=== PATIENT | female | born 1990 | race American Indian/Alaskan Native ===

== ENCOUNTER 2018-11-14 21:20 | Emergency (ER) | payer MEDICAID | END 2018-11-15 00:33 | disposition left against medical advice (07) | LOC: ED 21:20 ==

== ENCOUNTER 2019-07-22 17:24 | Emergency (ER) | payer MEDICARE | END 2019-07-22 17:45 | disposition left against medical advice (07) | LOC: ED 17:24 | DX: M79.604 Pain in right leg (principal); Z53.21 Procedure and treatment not carried out due to patient leaving prior to being seen by health care provider ==

== ENCOUNTER 2019-07-26 03:59 | Inpatient (IN) | payer MEDICARE ==
[2019-07-26] MEDS ORDERED: NACL 0.9% 1000 ML 1,000 ML IV ONE (05:12)
[2019-07-26] MEDS ORDERED: MORPHINE IV ONE ×2 (05:12→13:52)
[2019-07-26] MEDS ORDERED: TYLENOL PO ONE (05:14)
--- NOTE | 2019-07-26 05:14 | Event Note ---
Date: 07/26/19 Medical screening note: 29-year-old female, not known to this provider previously, reports history of lupus, reports that she typically follows at [facility], complaining of burning bilateral foot pain, chronic rash, difficulty weightbearing secondary to chronic pain. Low-grade temperature and tachycardic. Placed on monitor, pain medicine ordered, laboratory studies ordered. Vital Signs 07/26/19 07/26/19 07/26/19 04:00 04:13 04:15 Temperature 99.8 F H Pulse Rate 118 H 117 H Respiratory 20 30 H 27 H Rate Blood Pressure 127/79 123/80 O2 Sat by Pulse 99 99 Oximetry 07/26/19 04:30 Temperature Pulse Rate 117 H Respiratory 24 Rate Blood Pressure 121/85 O2 Sat by Pulse 99 Oximetry
[2019-07-26 05:38] LABS: Hematocrit 23.2 % (30.3-42.9); Hemoglobin 6.9 gm/dl (10.1-14.3); Mean Corpuscular HGB Conc 30 % (30-34); Mean Corpuscular Volume 72 fl (79-97); Red Blood Count 3.24 M/mm3 (3.65-5.03)
[2019-07-26 05:39] LABS: Red Cell Distribution Width 36.5 % (13.2-15.2)
[2019-07-26 05:47] LABS: INR 1.38 (0.87-1.13)
[2019-07-26 05:48] LABS: Partial Thromboplastin Time 39.7 Sec. (24.2-36.6)
[2019-07-26 05:58] LABS: Albumin 3.3 g/dL (3.9-5); BUN/Creatinine Ratio 4; Blood Urea Nitrogen 71 mg/dL (7-17); Calcium 8.6 mg/dL (8.4-10.2); Hemolysis Index 7
[2019-07-26 06:11] LABS: Erythrocyte Sedimentation Rate 78 mm/Hr (0-20)
[2019-07-26] MEDS ORDERED: MERREM/NS 1 GRAM/100 ML 1 GRAM/100 ML BAG IV ONE (06:40)
[2019-07-26] MEDS ORDERED: D50W (25GM) Syringe IV ONE ×3 (06:41→09:54)
[2019-07-26 06:42] LABS: Basophils % (Manual) 0 % (0.0-1.8); Eosinophils % (Manual) 0 % (0.0-4.3); Total Cells Counted 100
[2019-07-26] MEDS ORDERED: HumuLIN R IV ONE (06:42)
[2019-07-26 06:43] LABS: Anisocytosis 3+
[2019-07-26 06:44] LABS: Hypochromasia 3+; Ovalocytes 1+; Platelet Estimate Consistent w Auto; Poikilocytosis 2+; Tear Drop Cells Few
[2019-07-26 06:45] LABS: Platelet Count 237 K/mm3 (140-440)
[2019-07-26] MEDS ORDERED: VANCOMYCIN PHARMACY TO DOSE IV SCH (07:00)
[2019-07-26 07:05] LABS: Alanine Aminotransferase < 5 units/L (7-56)
--- NOTE | 2019-07-26 07:12 | XRay Report ---
CHEST 1 VIEW 07/26/2019 6:54 AM INDICATION / CLINICAL INFORMATION: hypertension. COMPARISON: None available. FINDINGS: SUPPORT DEVICES: None. HEART / MEDIASTINUM: Mild cardiomegaly. LUNGS / PLEURA: No significant pulmonary or pleural abnormality. No pneumothorax. ADDITIONAL FINDINGS: No significant additional findings. IMPRESSION: 1. Mild cardiomegaly without acute pulmonary abnormality. Signer Name: Gurmeet Cook MD Signed: 07/26/2019 7:08 AM Workstation Name: [id number]
[2019-07-26] MEDS ORDERED: VANCOMYCIN 2,000 MG in NACL 0.9% 500 ML 500 ML IV ONE (07:15)
[2019-07-26] MEDS ORDERED: D50W (25GM) Vial IV ONE (07:24)
[2019-07-26 07:30] LABS: INR 1.39 (0.87-1.13)
--- NOTE | 2019-07-26 07:30 | Emergency Department Report ---
ED General Adult HPI - General Chief complaint: Extremity Problem,Nontraumatic Stated complaint: FEET BURNING Time Seen by Provider: 07/26/19 06:22 Source: patient Mode of arrival: Stretcher Limitations: No Limitations - History of Present Illness Initial comments: 49-year-old female end-stage renal disease on dialysis with history of lupus. Patient states that she was recently transferred to a new guide foreign tour to be dialyzed at [facility] here in [place] although she had been previously receiving care at [place]. Patient's chief complaint is burning legs. He was initially screened by my predecessor physician. On my encounter and review of her lab oratory database she has tachycardia and a substantial white count. He tells me that she "tried to get some antibiotics from her physician at [place] for a bump in her "private area". She does not understand the meaning of MRSA. She does not report to me any history of life-threatening infections. She is a very poor historian however. She also admits to noncompliance with her dialysis, last ronni lysis was (today is Thursday). He states he felt ill for a week. She thinks someone here told her she had a fever and may have had some chills. Severity scale (0 -10): 6 - Related Data Home Medications Medication Instructions Recorded Confirmed Last Taken Gabapentin 300 mg PO 3XW 11/14/18 11/14/18 Unknown Mirtazapine 7.5 mg PO 3XW 11/14/18 11/14/18 Unknown Allergies Allergy/AdvReac Type Severity Reaction Status Date / Time No Known Allergies Allergy Verified 07/21/19 07:06 ED Review of Systems ROS: Stated complaint: FEET BURNING Other details as noted in HPI Constitutional: chills (patient is really unclear and a poor historian), fever Eyes: denies: eye pain, eye discharge, vision change ENT: denies: ear pain, throat pain Respiratory: denies: cough, shortness of breath, wheezing Cardiovascular: denies: chest pain, palpitations Endocrine: no symptoms reported Gastrointestinal: denies: abdominal pain, nausea, diarrhea Genitourinary: as per HPI Musculoskeletal: as per HPI (chronic leg pain). denies: back pain, joint swelling, arthralgia Skin: denies: rash, lesions Neurological: denies: headache, weakness, paresthesias Psychiatric: denies: anxiety, depression Hematological/Lymphatic: denies: easy bleeding, easy bruising ED Past Medical Hx - Past Medical History Previous Medical History?: Yes Hx Hypertension: Yes Hx Renal Disease: Yes (Dialysis Thu-Thu-Thu, told me Thursday) Additional medical history: Lupus - Surgical History Additional Surgical History: Fractured left leg, AV fistula left arm - Social History Smoking Status: Never Smoker Substance Use Type: Marijuana - Medications Home Medications: Home Medications Medication Instructions Recorded Confirmed Last Taken Type Gabapentin 300 mg PO 3XW 11/14/18 11/14/18 Unknown History Mirtazapine 7.5 mg PO 3XW 11/14/18 11/14/18 Unknown History ED Physical Exam - General Limitations: No Limitations General appearance: alert, in no apparent distress - Head Head exam: Present: atraumatic, normocephalic - Eye Eye exam: Present: normal appearance. Absent: scleral icterus - ENT ENT exam: Present: mucous membranes moist - Neck Neck exam: Present: normal inspection - Respiratory Respiratory exam: Present: normal lung sounds bilaterally. Absent: respiratory distress - Cardiovascular Cardiovascular Exam: Present: regular rate, normal rhythm. Absent: systolic murmur, diastolic murmur, rubs, gallop - GI/Abdominal GI/Abdominal exam: Present: soft, normal bowel sounds. Absent: distended, tenderness, guarding, rebound, rigid - Extremities Exam Extremities exam: Present: normal inspection - Back Exam Back exam: Present: normal inspection - Neurological Exam Neurological exam: Present: alert, oriented X3, CN II-XII intact. Absent: reflexes normal - Psychiatric Psychiatric exam: Present: normal affect, normal mood - Skin Skin exam: Present: warm, dry, intact, normal color, other (there is a lesion which looks consistent with MRSA on the mons pubis area) ED Course Vital Signs 07/26/19 07/26/19 07/26/19 04:00 04:13 04:15 Temperature 99.8 F H Pulse Rate 118 H 117 H Respiratory 20 30 H 27 H Rate Blood Pressure 127/79 123/80 Blood Pressure [Right] O2 Sat by Pulse 99 99 Oximetry 07/26/19 07/26/19 04:30 07:42 Temperature 99 F Pulse Rate 117 H 106 H Respiratory 24 14 Rate Blood Pressure 121/85 Blood Pressure 128/64 [Right] O2 Sat by Pulse 99 98 Oximetry - Reevaluation(s) Reevaluation #1: Patient was treated empirically for bacteremia. She has a significantly elevated white blood cell count and tachycardia. She needs dialysis. She has significant cardiomegaly and cephalization of flow. Thereby she will not be given a fluid bolus at this time. Fluid management per hospitalist staff and guide foreign tour. Nephrology has been consulted. Dialysis is pending. 07/26/19 07:48 Reevaluation #2: Patient given a hyperkalemia cocktail. I believe dialysis will be somewhat delayed due to the hour of day. 07/26/19 07:51 ED Medical Decision Making - Lab Data Result diagrams: 07/26/19 05:25 07/26/19 05:25 Laboratory Results - last 24 hr 07/26/19 07/26/19 07/26/19 05:25 05:25 05:25 WBC 28.2 H RBC 3.24 L Hgb 6.9 L Hct 23.2 L MCV 72 L MCH 21 L MCHC 30 RDW 36.5 H Plt Count 237 Add Manual Diff Complete Total Counted 100 Seg Neuts % (Manual) 80.0 H Band Neutrophils % 0 Lymphocytes % (Manual) 15.0 Reactive Lymphs % (Man) 0 Monocytes % (Manual) 5.0 Eosinophils % (Manual) 0 Basophils % (Manual) 0 Metamyelocytes % 0 Myelocytes % 0 Promyelocytes % 0 Blast Cells % 0 Nucleated RBC % Not Reportable Seg Neutrophils # Man 22.6 H Band Neutrophils # 0.0 Lymphocytes # (Manual) 4.2 Abs React Lymphs (Man) 0.0 Monocytes # (Manual) 1.4 H Eosinophils # (Manual) 0.0 Basophils # (Manual) 0.0 Metamyelocytes # 0.0 Myelocytes # 0.0 Promyelocytes # 0.0 Blast Cells # 0.0 WBC Morphology Not Reportable Hypersegmented Neuts Not Reportable Hyposegmented Neuts Not Reportable Hypogranular Neuts Not Reportable Smudge Cells Not Reportable Toxic Granulation Not Reportable Toxic Vacuolation Not Reportable Dohle Bodies Not Reportable Pelger-Huet Anomaly Not Reportable Rose Rods Not Reportable Platelet Estimate Consistent w auto Clumped Platelets Not Reportable Plt Clumps, EDTA Not Reportable Large Platelets Not Reportable Giant Platelets Not Reportable Platelet Satelliting Not Reportable Plt Morphology Comment Not Reportable RBC Morphology Not Reportable Dimorphic RBCs Not Reportable Polychromasia Not Reportable Hypochromasia 3+ Poikilocytosis 2+ Anisocytosis 3+ Microcytosis Not Reportable Macrocytosis Not Reportable Spherocytes Not Reportable Pappenheimer Bodies Not Reportable Sickle Cells Not Reportable Target Cells Not Reportable Tear Drop Cells Few Ovalocytes 1+ Helmet Cells Not Reportable Benavidez-[place] Bodies Not Reportable [place] Rings Not Reportable Bk Cells Not Reportable Bite Cells Not Reportable Crenated Cell Not Reportable Elliptocytes Few Acanthocytes (Spur) Not Reportable Rouleaux Not Reportable Hemoglobin C Crystals Not Reportable Schistocytes Not Reportable Malaria parasites Not Reportable ESR 78 Dinesh Bodies Not Reportable Hem Pathologist Commnt No PT 16.6 H INR 1.38 H APTT 39.7 H Sodium 135 L Potassium 6.2 H* Chloride 95.7 L Carbon Dioxide 18 L Anion Gap 28 BUN 71 H Creatinine 16.8 H Estimated GFR 3 BUN/Creatinine Ratio 4 Glucose 79 POC Glucose Calcium 8.6 Total Bilirubin 0.30 AST 6 ALT < 5 L Alkaline Phosphatase 76 Total Creatine Kinase 43 Total Protein 6.8 Albumin 3.3 L Albumin/Globulin Ratio 0.9 HCG, Qual HCG, Quant 07/26/19 07/26/19 07/26/19 05:25 06:31 06:33 WBC RBC Hgb Hct MCV MCH MCHC RDW Plt Count Add Manual Diff Total Counted Seg Neuts % (Manual) Band Neutrophils % Lymphocytes % (Manual) Reactive Lymphs % (Man) Monocytes % (Manual) Eosinophils % (Manual) Basophils % (Manual) Metamyelocytes % Myelocytes % Promyelocytes % Blast Cells % Nucleated RBC % Seg Neutrophils # Man Band Neutrophils # Lymphocytes # (Manual) Abs React Lymphs (Man) Monocytes # (Manual) Eosinophils # (Manual) Basophils # (Manual) Metamyelocytes # Myelocytes # Promyelocytes # Blast Cells # WBC Morphology Hypersegmented Neuts Hyposegmented Neuts Hypogranular Neuts Smudge Cells Toxic Granulation Toxic Vacuolation Dohle Bodies Pelger-Huet Anomaly Rose Rods Platelet Estimate Clumped Platelets Plt Clumps, EDTA Large Platelets Giant Platelets Platelet Satelliting Plt Morphology Comment RBC Morphology Dimorphic RBCs Polychromasia Hypochromasia Poikilocytosis Anisocytosis Microcytosis Macrocytosis Spherocytes Pappenheimer Bodies Sickle Cells Target Cells Tear Drop Cells Ovalocytes Helmet Cells Benavidez-[place] Bodies [place] Rings [place] Cells Bite Cells Crenated Cell Elliptocytes Acanthocytes (Spur) Rouleaux Hemoglobin C Crystals Schistocytes Malaria parasites ESR Dinesh Bodies Hem Pathologist Commnt PT 16.7 H INR 1.39 H APTT 41.1 H Sodium Potassium Chloride Carbon Dioxide Anion Gap BUN Creatinine Estimated GFR BUN/Creatinine Ratio Glucose POC Glucose Calcium Total Bilirubin AST ALT Alkaline Phosphatase Total Creatine Kinase Total Protein Albumin Albumin/Globulin Ratio HCG, Qual Negative HCG, Quant < 2 07/26/19 07:25 WBC RBC Hgb Hct MCV MCH MCHC RDW Plt Count Add Manual Diff Total Counted Seg Neuts % (Manual) Band Neutrophils % Lymphocytes % (Manual) Reactive Lymphs % (Man) Monocytes % (Manual) Eosinophils % (Manual) Basophils % (Manual) Metamyelocytes % Myelocytes % Promyelocytes % Blast Cells % Nucleated RBC % Seg Neutrophils # Man Band Neutrophils # Lymphocytes # (Manual) Abs React Lymphs (Man) Monocytes # (Manual) Eosinophils # (Manual) Basophils # (Manual) Metamyelocytes # Myelocytes # Promyelocytes # Blast Cells # WBC Morphology Hypersegmented Neuts Hyposegmented Neuts Hypogranular Neuts Smudge Cells Toxic Granulation Toxic Vacuolation Dohle Bodies Pelger-Huet Anomaly Rose Rods Platelet Estimate Clumped Platelets Plt Clumps, EDTA Large Platelets Giant Platelets Platelet Satelliting Plt Morphology Comment RBC Morphology Dimorphic RBCs Polychromasia Hypochromasia Poikilocytosis Anisocytosis Microcytosis Macrocytosis Spherocytes Pappenheimer Bodies Sickle Cells Target Cells Tear Drop Cells Ovalocytes Helmet Cells Benavidez-[place] Bodies [place] Rings Bk Cells Bite Cells Crenated Cell Elliptocytes Acanthocytes (Spur) Rouleaux Hemoglobin C Crystals Schistocytes Malaria parasites ESR Dinesh Bodies Hem Pathologist Commnt PT INR APTT Sodium Potassium Chloride Carbon Dioxide Anion Gap BUN Creatinine Estimated GFR BUN/Creatinine Ratio Glucose POC Glucose 54 L Calcium Total Bilirubin AST ALT Alkaline Phosphatase Total Creatine Kinase Total Protein Albumin Albumin/Globulin Ratio HCG, Qual HCG, Quant - EKG Data -: EKG Interpreted by Me EKG shows normal: sinus rhythm Rate: normal - EKG Data Interpretation: nonspecific ST-T wave rosemarie (normal axis) - Radiology Data Radiology results: image reviewed Cardiomegaly with some cephalization noted Critical Care Time: Yes Critical care time in (mins) excluding proc time.: 60 Critical care attestation.: If time is entered above; I have spent that time in minutes in the direct care of this critically ill patient, excluding procedure time. ED Disposition Clinical Impression: Hyperkalemia, MRSA infection, End-stage renal disease needing dialysis, Lupus, Bilateral foot pain Leukocytosis Qualifiers: Leukocytosis type: unspecified Qualified Code(s): D72.829 - Elevated white blood cell count, unspecified Chronic pain Qualifiers: Chronic pain type: chronic pain syndrome Qualified Code(s): G89.4 - Chronic pain syndrome Disposition: OP ADMIT IP TO THIS HOSP Is pt being admited?: Yes Does the pt Need Aspirin: Yes Condition: Stable Referrals: MARGRET FRYE MD [Primary Care Provider] - 3-5 Days Time of Disposition: 07:50
[2019-07-26 07:31] LABS: Partial Thromboplastin Time 41.1 Sec. (24.2-36.6)
[2019-07-26] MEDS ORDERED: VANCOMYCIN 1,500 MG in NACL 0.9% 500 ML 500 ML IV ONE (08:00)
[2019-07-26 10:53] LABS: Albumin 3.2 g/dL (3.9-5)
[2019-07-26 10:55] LABS: Alanine Aminotransferase < 5 units/L (7-56); Bilirubin,Direct < 0.2 mg/dL (0-0.2)
[2019-07-26] MEDS ORDERED: NACL 0.9% 100 ML IV PRN ×2 (10:59→12:30)
[2019-07-26] MEDS ORDERED: TYLENOL PO PRN (11:08)
--- NOTE | 2019-07-26 11:12 | History and Physical Report ---
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 With the complaints of bilateral lower extremity leg pain , cramping and burning sensation. Patient was on gabapentin and reports that no improvement and her PMD has recently changed to Amytriptaline. Her workup was consistent with hyperkalemiaWorkup is consistent with hyperkalemia, shortness of breath secondary to fluid overload, leukocytosis and low-grade fever. Patient received Kayexalate, IV insulin, calcium chloride for hyperkalemia, however patient had episodes of hypoglycemia secondary to IV insulin Received multiple doses of IV dextrose. Time of my evaluation patient continues to have lower extremity pain, likely relieved by morphine Patient denies nausea or vomiting or abdominal pain Denies headache dizziness weakness or numbness Past History Past Medical History: ESRD, hypertension, other (Lupus) Past Surgical History: Other (left leg fracture, AV fistula, peripheral neuropathy) Social history: other (marijuana use). denies: smoking, alcohol abuse Family history: hypertension Medications and Allergies Allergies Allergy/AdvReac Type Severity Reaction Status Date / Time No Known Allergies Allergy Verified 07/21/19 07:06 Home Medications Medication Instructions Recorded Confirmed Last Taken Type Gabapentin 300 mg PO 3XW 11/14/18 07/26/19 07/25/19 History ALBUTEROL NEB's [Proventil] 2.5 mg IH QID PRN 07/26/19 07/26/19 07/25/19 History Amitriptyline [Elavil] 25 mg PO QHS 07/26/19 07/26/19 07/25/19 History Amitriptyline [Elavil] 25 mg PO QHS 07/26/19 07/26/19 07/25/19 History Cyanocobalamin (Vitamin B-12) 1,000 mcg PO QDAY 07/26/19 07/26/19 07/25/19 History [Vitamin B-12] Folic Acid [Folvite] 1 mg PO QDAY 07/26/19 07/26/19 07/25/19 History Hydroxychloroquine [Plaquenil] 200 mg PO QDAY 07/26/19 07/26/19 07/25/19 History Ibuprofen [Motrin] 800 mg PO Q8HR PRN 07/26/19 07/26/19 07/25/19 History Labetalol HCl [Labetalol 300mg TAB] 300 mg PO Q12H 07/26/19 07/26/19 07/25/19 History Losartan [Cozaar] 50 mg PO QDAY 07/26/19 07/26/19 07/25/19 History Mirtazapine 7.5 mg PO QDAY 07/26/19 07/26/19 07/25/19 History Mycophenolate [Cellcept] 500 mg PO QDAY 07/26/19 07/26/19 07/25/19 History Pantoprazole [Protonix] 40 mg PO BID 07/26/19 07/26/19 07/25/19 History Pregabalin [Lyrica] 25 mg PO QDAY 07/26/19 07/26/19 07/25/19 History Sevelamer HCl [Renagel] 800 mg PO BIDWM 07/26/19 07/26/19 07/25/19 History hydrOXYzine HCL [Atarax] 50 mg PO QDAY 07/26/19 07/26/19 07/25/19 History predniSONE [Deltasone] 20 mg PO QDAY 07/26/19 07/26/19 07/25/19 History Active Meds: Active Medications Acetaminophen (Tylenol) 650 mg PO Q6H PRN PRN Reason: Pain, Mild (1-3) Dextrose (D50w (25gm) Syringe) 25 ml IV PRN PRN PRN Reason: Hypoglycemia Epoetin Mitch (Procrit) 10,000 unit IV FAN PRN PRN Reason: hemodialysis Gabapentin (Neurontin) 100 mg PO Q8HR JOEL Sodium Chloride (Nacl 0.9%) 100 mls @ 999 mls/hr IV FAN PRN PRN Reason: Hypotension Review of Systems Constitutional: fever, fatigue, weakness Ears, nose, mouth and throat: no nasal congestion, no nasal discharge Cardiovascular: no chest pain, no orthopnea, no palpitations, no shortness of breath Respiratory: no cough, no hemoptysis Gastrointestinal: no abdominal pain, no nausea, no vomiting Musculoskeletal: leg numbness/tingling, muscle cramps, arthritis Integumentary: wounds, no rash, no lesions Neurological: weakness, numbness, no seizures, no syncope Psychiatric: no anxiety, no depression Endocrine: no cold intolerance, no heat intolerance Hematologic/Lymphatic: no easy bruising, no easy bleeding Allergic/Immunologic: no urticaria, no allergic rhinitis Exam - Constitutional Vitals: Temp Pulse Resp BP Pulse Ox 99 F 95 H 16 125/63 99 07/26/19 09:19 07/26/19 09:19 07/26/19 09:19 07/26/19 09:07/26/19 09:19 General appearance: Present: mild distress, well-nourished, obese - EENT Eyes: Present: PERRL, EOM intact - Neck Neck: Present: supple, normal ROM - Respiratory Respiratory effort: normal Respiratory: bilateral: diminished, negative: rales, rhonchi, wheezing - Cardiovascular Rhythm: regular - Extremities Extremities: no ischemia, No edema - Abdominal General gastrointestinal: Present: soft, non-tender, non-distended, normal bowel sounds - Integumentary Integumentary: Present: clear, warm - Musculoskeletal Musculoskeletal: generalized weakness - Psychiatric Psychiatric: appropriate mood/affect, cooperative - Neurologic Neurologic: moves all extremities Results - Labs CBC & Chem 7: 07/26/19 05:25 07/26/19 10:53 Labs: Abnormal lab results 07/26/19 07/26/19 07/26/19 Range/Units 05:25 05:25 05:25 WBC 28.2 H (4.5-11.0) K/mm3 RBC 3.24 L (3.65-5.03) M/mm3 Hgb 6.9 L (10.1-14.3) gm/dl Hct 23.2 L (30.3-42.9) % MCV 72 L (79-97) fl MCH 21 L (28-32) pg RDW 36.5 H (13.2-15.2) % Seg Neuts % (Manual) 80.0 H (40.0-70.0) % Seg Neutrophils # Man 22.6 H (1.8-7.7) K/mm3 Monocytes # (Manual) 1.4 H (0.0-0.8) K/mm3 PT 16.6 H (12.2-14.9) Sec. INR 1.38 H (0.87-1.13) APTT 39.7 H (24.2-36.6) Sec. Sodium 135 L (137-145) mmol/L Potassium 6.2 H* (3.6-5.0) mmol/L Chloride 95.7 L (98-107) mmol/L Carbon Dioxide 18 L (22-30) mmol/L BUN 71 H (7-17) mg/dL Creatinine 16.8 H (0.7-1.2) mg/dL POC Glucose (70-105) AST (5-40) units/L ALT < 5 L (7-56) units/L Troponin T (0.00-0.029) ng/mL NT-Pro-B Natriuret Pep (0-450) pg/mL Albumin 3.3 L (3.9-5) g/dL 07/26/19 07/26/19 07/26/19 Range/Units 06:31 06:31 07:25 WBC (4.5-11.0) K/mm3 RBC (3.65-5.03) M/mm3 Hgb (10.1-14.3) gm/dl Hct (30.3-42.9) % MCV (79-97) fl MCH (28-32) pg RDW (13.2-15.2) % Seg Neuts % (Manual) (40.0-70.0) % Seg Neutrophils # Man (1.8-7.7) K/mm3 Monocytes # (Manual) (0.0-0.8) K/mm3 PT 16.7 H (12.2-14.9) Sec. INR 1.39 H (0.87-1.13) APTT 41.1 H (24.2-36.6) Sec. Sodium (137-145) mmol/L Potassium (3.6-5.0) mmol/L Chloride (98-107) mmol/L Carbon Dioxide (22-30) mmol/L BUN (7-17) mg/dL Creatinine (0.7-1.2) mg/dL POC Glucose 54 L (70-105) AST < 5 L (5-40) units/L ALT < 5 L (7-56) units/L Troponin T 0.072 H (0.00-0.029) ng/mL NT-Pro-B Natriuret Pep 75017 H (0-450) pg/mL Albumin 3.2 L (3.9-5) g/dL 07/26/19 07/26/19 Range/Units 07:59 09:55 WBC (4.5-11.0) K/mm3 RBC (3.65-5.03) M/mm3 Hgb (10.1-14.3) gm/dl Hct (30.3-42.9) % MCV (79-97) fl MCH (28-32) pg RDW (13.2-15.2) % Seg Neuts % (Manual) (40.0-70.0) % Seg Neutrophils # Man (1.8-7.7) K/mm3 Monocytes # (Manual) (0.0-0.8) K/mm3 PT (12.2-14.9) Sec. INR (0.87-1.13) APTT (24.2-36.6) Sec. Sodium (137-145) mmol/L Potassium (3.6-5.0) mmol/L Chloride (98-107) mmol/L Carbon Dioxide (22-30) mmol/L BUN (7-17) mg/dL Creatinine (0.7-1.2) mg/dL POC Glucose 150 H 41 L (70-105) AST (5-40) units/L ALT (7-56) units/L Troponin T (0.00-0.029) ng/mL NT-Pro-B Natriuret Pep (0-450) pg/mL Albumin (3.9-5) g/dL Assessment and Plan --Hyperkalemia; secondary to end-stage renal disease Received Kayexalate, calcium chloride, insulin and D50 Hemodialysis per schedule, monitor electrolytes --Sepsis; leukocytosis, fever, tachycardia Blood and urine cultures, empiric antibiotics IV fluids and supportive care, ID consult if needed --Severe leukocytosis; secondary to sepsis --End-stage renal disease; on hemodialysis Nephrology consultation, HD per schedule --Hypertension; moderate control Resume home antihypertensives and when necessary medications --History of lupus; resume home medications Supportive care --DVT prophylaxis; Lovenox renal dose Monitor closely and adjust the management as needed
--- NOTE | 2019-07-26 11:53 | Consultation ---
History of Present Illness - Reason for Consult Consult date: 07/26/19 end stage renal disease - History of Present Illness This is a 29 year old woman with ESRD secondary to SLE on HD who presents with hyperkalemia, anemia, and generally feeling poorly. Patient is a somewhat poor historian but states that her foot was numb, and began bleeding after it was not wrapped appropriately at her dialysis unit (in [place], unsure which facility). She notes that she has missed recent HD, but last session was likely this past (07/21). She is currently with several complaints but gener ally just feels poorly with subjective chills and fevers. No chest pain, no dyspnea noted. Notes ongoing bleeding from her foot, but better when wrapped. No issues with AVF recently; dialysis sessions themselves have been going well. No cramping on HD. Past History Past Medical History: anemia, ESRD Past Surgical History: No surgical history Social history: no significant social history Family history: no significant family history Medications and Allergies Allergies Allergy/AdvReac Type Severity Reaction Status Date / Time No Known Allergies Allergy Verified 07/21/19 07:06 Home Medications Medication Instructions Recorded Confirmed Last Taken Type Gabapentin 300 mg PO 3XW 11/14/18 11/14/18 Unknown History Mirtazapine 7.5 mg PO 3XW 11/14/18 11/14/18 Unknown History Active Meds: Active Medications Acetaminophen (Tylenol) 650 mg PO Q6H PRN PRN Reason: Pain, Mild (1-3) Dextrose (D50w (25gm) Syringe) 25 ml IV PRN PRN PRN Reason: Hypoglycemia Epoetin Mitch (Procrit) 10,000 unit IV FAN PRN PRN Reason: hemodialysis Gabapentin (Neurontin) 100 mg PO Q8HR JOEL Sodium Chloride (Nacl 0.9%) 100 mls @ 999 mls/hr IV FAN PRN PRN Reason: Hypotension Cefepime HCl (Maxipime/Ns 1 Gm/100 Ml) 1 gm in 100 mls @ 200 mls/hr IV Q8HR JOEL; Protocol Sodium Chloride (Nacl 0.9%) 100 mls @ 999 mls/hr IV FAN PRN PRN Reason: Hypotension Review of Systems All systems: negative Constitutional: fever, chills, fatigue, weakness Cardiovascular: no chest pain, no palpitations, no lightheadedness Respiratory: no cough, no hemoptysis, no congestion Gastrointestinal: no abdominal pain, no nausea, no vomiting, no diarrhea Musculoskeletal: no neck stiffness, no neck pain Neurological: numbness, no headaches Psychiatric: anxiety Exam - Vital Signs Vital signs: Vital Signs Temp Pulse Resp BP Pulse Ox 99.8 F H 118 H 20 127/79 99 07/26/19 04:00 07/26/19 04:00 07/26/19 04:00 07/26/19 04:00 07/26/19 04:00 - General Appearance General appearance: well-developed, well-nourished, appears stated age, moderate distress, anxious EENT: PERRL, mucous membranes moist Neck: Present: neck supple, trachea midline Respiratory: Clear to Ascultation Heart: regular, normal heart rate, S1S2, no murmurs Gastrointestinal: Present: normal. Absent: tenderness, distended, masses, guarding Integumentary: no rash, warm and dry Neurologic: no focal deficit, alert and oriented x3, gait normal, strength 5/5 Musculoskeletal: Absent: deformities, joint swelling Additional exam: AVF with good bruit, thrill Results - Lab Results 07/26/19 05:25 07/26/19 05:25 Most recent lab results Calcium 8.6 mg/dL (8.4-10.2) 07/26/19 05:25 Magnesium 2.10 mg/dL (1.7-2.3) 07/26/19 06:31 Assessment and Plan Impression/Plan: #ESRD on HD with missed HD #Hyperkalemia #Metabolic Acidosis #Microcytic Anemia #Leukocytosis #Tachycardia #Hypoglycemia - HD today, continue T// as tolerated - UF 2-3L as tolerated, caution given possible infection - antibiotics, infectious workup per primary/ID; blood cultures pending - will provide 2u PRBCs given anemia presumed from blood loss; will check iron panel prior to transfusion with HD - 2K bath given hyperkalemia - epogen 10K, titrate as needed; hold IV iron until infectious workup complete - wound care per primary - strict Is/Os - avoid nephrotoxins - renally dose all meds Thank you for this consult; we will continue to follow. for any questions or concerns.
[2019-07-26 12:11] LABS: Calcium 8.4 mg/dL (8.4-10.2)
[2019-07-26] MEDS ORDERED: NACL 0.9% 500 ML 500 ML IV NR (12:30)
[2019-07-26] MEDS: D50W (25GM) Syringe IV PRN (12:32)
[2019-07-26 12:54] LABS: Hepatitis B Surface Antigen Non-Reactive (Negative); Hepatitis C Virus Antibody Non-Reactive (NonReactive)
[2019-07-26] MEDS ORDERED: MORPHINE IM ONE (13:42)
[2019-07-26 14:23] LABS: Chol/HDL Ratio 3.64 %; HDL Cholesterol 25 mg/dL (40-59); LDL Cholesterol,Direct 30 mg/dL (50-130)
[2019-07-26] MEDS ORDERED: PROVENTIL IH PRN (15:39)
[2019-07-26] MEDS: NEURONTIN PO SCH ×2 (15:42→21:47)
[2019-07-26] MEDS ORDERED: NON-FORMULARY (Sevelamer Hcl [Renagel] 800 MG) PO SCH (15:45)
[2019-07-26] MEDS ORDERED: NON-FORMULARY (Labetalol Hcl [Labetalol 300mg Tab] 300 MG) PO SCH (15:45)
[2019-07-26] MEDS ORDERED: NACL 0.9 (PRIMING MACHINE ONLY DIALYSIS) MC ONE (16:40)
[2019-07-26] MEDS: PROCRIT IV PRN (17:28)
[2019-07-26] MEDS: PERCOCET 5/325 PO PRN (21:47)
[2019-07-26] MEDS: NORMODYNE PO SCH ×2 (21:48→22:17)
[2019-07-26] MEDS: ELAVIL PO SCH (21:48)
[2019-07-26] MEDS: REMERON PO SCH (21:49)
[2019-07-26] MEDS: MAXIPIME/NS 1 GM/100 ML 1 GM/100 ML BAG IV SCH ×2 (21:54→22:17)
[2019-07-26] MEDS: RENVELA PO SCH (22:16)
[2019-07-27] MEDS: NEURONTIN PO SCH ×3 (05:02→23:38)
[2019-07-27] MEDS: MAXIPIME/NS 1 GM/100 ML 1 GM/100 ML BAG IV SCH ×3 (05:02→09:31)
--- NOTE | 2019-07-27 06:14 | Event Note ---
Date: 07/27/19 Pt stated that she wanted to leave AMA. Pt counseled regarding the risk associated with leaving AMA. Followed up with nurse one hour later, and pt is resting comfortably in bed.
[2019-07-27] MEDS: RENVELA PO SCH ×2 (08:27→17:09)
[2019-07-27] MEDS: PERCOCET 5/325 PO PRN ×2 (08:40→13:36)
[2019-07-27] MEDS: NORMODYNE PO SCH ×2 (09:30→23:38)
[2019-07-27] MEDS: ATARAX PO SCH (09:30)
[2019-07-27] MEDS: COZAAR PO SCH (09:30)
[2019-07-27] MEDS: CELLCEPT PO SCH (09:30)
[2019-07-27] MEDS: DELTASONE PO SCH (09:31)
[2019-07-27] MEDS: PLAQUENIL PO SCH (09:31)
[2019-07-27] MEDS: VITAMIN B-12 PO SCH (09:31)
[2019-07-27] MEDS: FOLVITE PO SCH (09:31)
[2019-07-27] MEDS ORDERED: NON-FORMULARY (Mirtazapine [Mirtazapine] 7.5 MG) PO SCH (10:00)
--- NOTE | 2019-07-27 10:32 | Progress Note ---
Assessment and Plan Impression/Plan: #ESRD on HD with missed HD #Hyperkalemia #Metabolic Acidosis #Microcytic Anemia #Leukocytosis #Tachycardia #Hypoglycemia - continue HD T/Th/ as tolerated - UF 2-3L as tolerated, caution given possible infection and anemia - antibiotics, infectious workup per primary/ID; blood cultures NGTD - needs repeat CBC, renal function. Ordered iron studies but likely not of benefit now s/p transfusion - 2K bath given hyperkalemia, repeat labs - epogen 10K, titrate as needed; hold IV iron until infectious workup complete - defer management of itching to primary, can consider hydroxyzine - wound care per primary - strict Is/Os - avoid nephrotoxins - renally dose all meds Thank you for this consult; we will continue to follow. for any questions or concerns. Subjective Date of service: 07/27/19 Principal diagnosis: anemia, dizziness Interval history: no acute events noted overnight. tolerated HD well and denied any cramping, dizziness, lightheadedness on HD. still feels weak this AM, has alot of itching all over. Objective - Exam Narrative Exam: General appearance: well-developed, frail appearing EENT: PERRL, mucous membranes moist Neck: Present: neck supple, trachea midline Respiratory: Clear to Auscultation Heart: regular, normal heart rate, S1S2, no murmurs Gastrointestinal: Present: normal bowel sounds Integumentary: no rash, warm and dry. Heels with bandages Neurologic: no focal deficit, alert and oriented x3, strength 5/5 Musculoskeletal: Absent: deformities, joint swelling Additional exam: AVF with good bruit, thrill - Vital Signs Vital signs: Vital Signs - 12hr 07/26/19 07/27/19 07/27/19 23:17 03:56 07:46 Temperature 98.2 F 98.2 F Pulse Rate 134 H 118 H 109 H Respiratory 18 18 Rate Respiratory Rate [Bilateral Foot] Blood Pressure 156/101 146/96 O2 Sat by Pulse 97 93 Oximetry 07/27/19 07/27/19 07/27/19 08:40 09:00 09:30 Temperature Pulse Rate 109 H Respiratory 20 Rate Respiratory 20 Rate [Bilateral Foot] Blood Pressure 146/96 O2 Sat by Pulse Oximetry - Lab 07/26/19 05:25 07/26/19 10:53 Most recent lab results Calcium 8.4 mg/dL (8.4-10.2) 07/26/19 10:53 Magnesium 2.10 mg/dL (1.7-2.3) 07/26/19 06:31 Medications & Allergies - Medications Allergies/Adverse Reactions: Allergies No Known Allergies Allergy (Verified 07/21/19 07:06) Home Medications: Home Medications Medication Instructions Recorded Confirmed Last Taken Type Gabapentin 300 mg PO 3XW 11/14/18 07/26/19 07/25/19 History ALBUTEROL NEB's [Proventil] 2.5 mg IH QID PRN 07/26/19 07/26/19 07/25/19 History Amitriptyline [Elavil] 25 mg PO QHS 07/26/19 07/26/19 07/25/19 History Amitriptyline [Elavil] 25 mg PO QHS 07/26/19 07/26/19 07/25/19 History Cyanocobalamin (Vitamin B-12) 1,000 mcg PO QDAY 07/26/19 07/26/19 07/25/19 History [Vitamin B-12] Folic Acid [Folvite] 1 mg PO QDAY 07/26/19 07/26/19 07/25/19 History Hydroxychloroquine [Plaquenil] 200 mg PO QDAY 07/26/19 07/26/19 07/25/19 History Ibuprofen [Motrin] 800 mg PO Q8HR PRN 07/26/19 07/26/19 07/25/19 History Labetalol HCl [Labetalol 300mg TAB] 300 mg PO Q12H 07/26/19 07/26/19 07/25/19 History Losartan [Cozaar] 50 mg PO QDAY 07/26/19 07/26/19 07/25/19 History Mirtazapine 7.5 mg PO QDAY 07/26/19 07/26/19 07/25/19 History Mycophenolate [Cellcept] 500 mg PO QDAY 07/26/19 07/26/19 07/25/19 History Pantoprazole [Protonix] 40 mg PO BID 07/26/19 07/26/19 07/25/19 History Pregabalin [Lyrica] 25 mg PO QDAY 07/26/19 07/26/1919 History Sevelamer HCl [Renagel] 800 mg PO BIDWM 07/26/19 07/26/19 07/25/19 History hydrOXYzine HCL [Atarax] 50 mg PO QDAY 07/26/19 07/26/19 07/25/19 History predniSONE [Deltasone] 20 mg PO QDAY 07/26/19 07/26/19 07/25/19 History Active Medications: Generic Name Dose Route Start Last Admin Trade Name Freq PRN Reason Stop Dose Admin Acetaminophen 650 mg 07/26/19 11:08 Tylenol PO Q6H PRN Pain, Mild (1-3) Albuterol 2.5 mg 07/26/19 15:39 Proventil IH QID PRN Wheezing Amitriptyline HCl 25 mg 07/26/19 22:00 07/26/19 21:48 Elavil PO 25 mg QHS JOEL Administration Cyanocobalamin 1,000 mcg 07/27/19 10:00 07/27/19 09:31 Vitamin B-12 PO 1,000 mcg QDAY JOEL Administration Dextrose 25 ml 07/26/19 11:06 07/26/19 12:32 D50w (25gm) Syringe IV 25 ml PRN PRN Administration Hypoglycemia Epoetin Mitch 10,000 unit 07/26/19 10:10 07/26/19 17:28 Procrit IV 10,000 unit FAN PRN Administration hemodialysis Folic Acid 1 mg 07/27/19 10:00 07/27/19 09:31 Folvite PO 1 mg QDAY JOEL Administration Gabapentin 100 mg 07/26/19 14:00 07/27/19 05:02 Neurontin PO Not Given Q8HR JOEL Hydroxychloroquine Sulfate 200 mg 07/27/19 10:00 07/27/19 09:31 Plaquenil PO 200 mg QDAY JOEL Administration Hydroxyzine HCl 50 mg 07/27/19 10:00 07/27/19 09:30 Atarax PO 50 mg QDAY JOEL Administration Sodium Chloride 100 mls @ 999 mls/hr 07/26/19 12:30 Nacl 0.9% IV FAN PRN Hypotension Cefepime HCl 1 gm in 100 mls @ 200 mls/hr 07/27/19 10:00 07/27/19 09:31 Maxipime/Ns 1 Gm/100 Ml IV 200 mls/hr Q24HR JOEL Administration Protocol Labetalol HCl 300 mg 07/26/19 16:00 07/27/19 09:30 Normodyne PO 300 mg BID JOEL Administration Losartan Potassium 50 mg 07/27/19 10:00 07/27/19 09:30 Cozaar PO 50 mg QDAY JOEL Administration Mirtazapine 7.5 mg 07/26/19 22:00 07/26/19 21:49 Remeron PO 7.5 mg QHS JOEL Administration Mycophenolate Mofetil 500 mg 07/27/19 10:00 Cellcept PO QDAY JOEL Oxycodone/Acetaminophen 1 tab 07/26/19 20:56 07/27/19 08:40 Percocet 5/325 PO 1 tab Q6H PRN Administration Pain, Moderate (4-6) Prednisone 20 mg 07/27/19 10:00 07/27/19 09:31 Deltasone PO 20 mg QDAY JOEL Administration Sevelamer Carbonate 800 mg 07/26/19 16:30 07/27/19 08:27 Renvela PO 800 mg 0730,1630 JOEL Administration
[2019-07-27] MEDS ORDERED: MORPHINE IV PRN (14:26)
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
[2019-07-27] MEDS: ELAVIL PO SCH (23:39)
[2019-07-27] MEDS: REMERON PO SCH (23:39)
[2019-07-28] MEDS: NEURONTIN PO SCH ×3 (05:46→23:10)
[2019-07-28] MEDS: RENVELA PO SCH ×3 (07:30→20:40)
[2019-07-28 07:34] LABS: Hematocrit 28.6 % (30.3-42.9); Mean Corpuscular HGB Conc 32 % (30-34); Mean Corpuscular Volume 74 fl (79-97); Red Blood Count 3.88 M/mm3 (3.65-5.03)
[2019-07-28 07:39] LABS: Red Cell Distribution Width 30.9 % (13.2-15.2)
[2019-07-28 08:29] LABS: Calcium 10.1 mg/dL (8.4-10.2)
[2019-07-28] MEDS: PERCOCET 5/325 PO PRN (09:19)
--- NOTE | 2019-07-28 10:33 | Progress Note ---
Assessment and Plan Impression/Plan: #ESRD on HD with missed HD #Hyperkalemia #Metabolic Acidosis #Microcytic Anemia- improved with hemoglobin 9 from 6.9 #Leukocytosis #Tachycardia #Hypoglycemia - continue HD T// as tolerated, due today - will provide IV Benadryl 12.5mg x1 prior to dialysis for patient comfort to allow for optimal treatment - discussed at length importance of receiving HD today given hyperkalemia - UF 2-3L as tolerated - antibiotics, infectious workup per primary/ID; blood cultures NGTD - 2K bath given hyperkalemia - epogen 10K, titrate as needed; hold IV iron until infectious workup complete - wound care per primary - strict Is/Os - avoid nephrotoxins - renally dose all meds Thank you for this interesting consult; we will continue to follow and provide renal related recommendations for this medically complex patient. [phone] for any questions or concerns. Subjective Date of service: 07/28/19 Principal diagnosis: anemia, dizziness Interval history: no acute events noted overnight. Continues to have multiple complaints of pain in her feet with numbness, and overall feeling poorly. Declined HD this morning due to discomfort, but states that she still wants dialysis today. Previously had tolerated HD well and denied any cramping, dizziness, lightheadedness on HD. No dyspnea or chest pain noted this morning. Objective - Exam Narrative Exam: General appearance: well-developed, frail appearing, mild distress EENT: PERRL, mucous membranes moist Neck: Present: neck supple, trachea midline Respiratory: Clear to Auscultation Heart: regular, normal heart rate, S1S2, no murmurs Gastrointestinal: Present: normal bowel sounds Integumentary: no rash, warm and dry. Heels with bandages Neurologic: no focal deficit, alert and oriented x3, strength 5/5 Musculoskeletal: Absent: deformities, joint swelling Additional exam: AVF with good bruit, thrill - Vital Signs Vital signs: Vital Signs - 12hr 07/27/19 07/28/19 07/28/19 23:11 03:23 08:00 Temperature 97.6 F 97.6 F Pulse Rate 86 80 80 Respiratory 18 20 Rate Blood Pressure 158/108 158/108 O2 Sat by Pulse 100 Oximetry 07/28/19 09:19 Temperature Pulse Rate Respiratory 20 Rate Blood Pressure O2 Sat by Pulse Oximetry - Lab 07/28/19 07:01 07/28/19 07:01 Most recent lab results Calcium 10.1 mg/dL (8.4-10.2) D 07/28/19 07:01 Magnesium 2.10 mg/dL (1.7-2.3) 07/26/19 06:31 Medications & Allergies - Medications Allergies/Adverse Reactions: Allergies No Known Allergies Allergy (Verified 07/21/19 07:06) Home Medications: Home Medications Medication Instructions Recorded Confirmed Last Taken Type Gabapentin 300 mg PO 3XW 11/14/18 07/26/19 07/25/19 History ALBUTEROL NEB's [Proventil] 2.5 mg IH QID PRN 07/26/19 07/26/19 07/25/19 History Amitriptyline [Elavil] 25 mg PO QHS 07/26/19 07/26/19 07/25/19 History Amitriptyline [Elavil] 25 mg PO QHS 07/26/19 07/26/19 07/25/19 History Cyanocobalamin (Vitamin B-12) 1,000 mcg PO QDAY 07/26/19 07/26/19 07/25/19 History [Vitamin B-12] Folic Acid [Folvite] 1 mg PO QDAY 07/26/19 07/26/19 07/25/19 History Hydroxychloroquine [Plaquenil] 200 mg PO QDAY 07/26/19 07/26/19 07/25/19 History Ibuprofen [Motrin] 800 mg PO Q8HR PRN 07/26/19 07/26/19 07/25/19 History Labetalol HCl [Labetalol 300mg TAB] 300 mg PO Q12H 07/26/19 07/26/19 07/25/19 History Losartan [Cozaar] 50 mg PO QDAY 07/26/19 07/26/19 07/25/19 History Mirtazapine 7.5 mg PO QDAY 07/26/19 07/26/19 07/25/19 History Mycophenolate [Cellcept] 500 mg PO QDAY 07/26/19 07/26/19 07/25/19 History Pantoprazole [Protonix] 40 mg PO BID 07/26/19 07/26/19 07/25/19 History Pregabalin [Lyrica] 25 mg PO QDAY 07/26/19 07/26/19 07/25/19 History Sevelamer HCl [Renagel] 800 mg PO BIDWM 07/26/19 07/26/19 07/25/19 History hydrOXYzine HCL [Atarax] 50 mg PO QDAY 07/26/19 07/26/19 07/25/19 History predniSONE [Deltasone] 20 mg PO QDAY 07/26/19 07/26/19 07/25/19 History Active Medications: Generic Name Dose Route Start Last Admin Trade Name Freq PRN Reason Stop Dose Admin Acetaminophen 650 mg 07/26/19 11:08 Tylenol PO Q6H PRN Pain, Mild (1-3) Albuterol 2.5 mg 07/26/19 15:39 Proventil IH QID PRN Wheezing Amitriptyline HCl 25 mg 07/26/19 22:00 07/27/19 23:39 Elavil PO 25 mg QHS JOEL Administration Cyanocobalamin 1,000 mcg 07/27/19 10:00 07/27/19 09:31 Vitamin B-12 PO 1,000 mcg QDAY JOEL Administration Dextrose 25 ml 07/26/19 11:06 07/26/19 12:32 D50w (25gm) Syringe IV 25 ml PRN PRN Administration Hypoglycemia Epoetin Mitch 10,000 unit 07/26/19 10:10 07/26/19 17:28 Procrit IV 10,000 unit FAN PRN Administration hemodialysis Folic Acid 1 mg 07/27/19 10:00 07/27/19 09:31 Folvite PO 1 mg QDAY JOEL Administration Gabapentin 100 mg 07/26/19 14:00 07/28/19 05:46 Neurontin PO 100 mg Q8HR JOEL Administration Hydroxychloroquine Sulfate 200 mg 07/27/19 10:00 07/27/19 09:31 Plaquenil PO 200 mg QDAY JOEL Administration Hydroxyzine HCl 50 mg 07/27/19 10:00 07/27/19 09:30 Atarax PO 50 mg QDAY JOEL Administration Sodium Chloride 100 mls @ 999 mls/hr 07/26/19 12:30 Nacl 0.9% IV FAN PRN Hypotension Cefepime HCl 1 gm in 100 mls @ 200 mls/hr 07/27/19 10:00 07/27/19 09:31 Maxipime/Ns 1 Gm/100 Ml IV 200 mls/hr Q24HR JOEL Administration Protocol Labetalol HCl 300 mg 07/26/19 16:00 07/27/19 23:38 Normodyne PO 300 mg BID JOEL Administration Losartan Potassium 50 mg 07/27/19 10:00 07/27/19 09:30 Cozaar PO 50 mg QDAY JOEL Administration Mirtazapine 7.5 mg 07/26/19 22:00 07/27/19 23:39 Remeron PO 7.5 mg QHS JOEL Administration Morphine Sulfate 2 mg 07/27/19 14:26 Morphine IV Q4H PRN Pain, Moderate (4-6) Mycophenolate Mofetil 500 mg 07/27/19 10:00 07/27/19 09:30 Cellcept PO Not Given QDAY JOEL Oxycodone/Acetaminophen 1 tab 07/26/19 20:56 07/28/19 09:19 Percocet 5/325 PO 1 tab Q6H PRN Administration Pain, Moderate (4-6) Prednisone 20 mg 07/27/19 10:00 07/27/19 09:31 Deltasone PO 20 mg QDAY JOEL Administration Sevelamer Carbonate 800 mg 07/26/19 16:30 07/27/19 17:09 Renvela PO Not Given 0730,1630 [facility]
[2019-07-28] MEDS: MAXIPIME/NS 1 GM/100 ML 1 GM/100 ML BAG IV SCH (11:00)
[2019-07-28] MEDS ORDERED: BENADRYL IV ONE (11:00)
[2019-07-28 12:02] LABS: Band Neutrophils # (Manual) 0.6 K/mm3; Basophils % (Manual) 0 % (0.0-1.8); Eosinophils % (Manual) 0 % (0.0-4.3); Total Cells Counted 100
[2019-07-28 12:03] LABS: Anisocytosis 3+; Hypochromasia 1+; Ovalocytes Few; Target Cells Few; Tear Drop Cells Rare
[2019-07-28 12:04] LABS: Platelet Estimate Consistent w Auto
--- NOTE | 2019-07-28 12:22 | Progress Note ---
Assessment and Plan Assessment and plan: --Sepsis; leukocytosis, fever, tachycardia Blood and urine cultures, empiric antibiotics IV fluids and supportive care, ID consult if needed --Severe leukocytosis; secondary to sepsis Continue vancomycin and cefepime, follow cultures --Wound Cultures gram-negative rods, follow sensitivities Wound care --Hyperkalemia; secondary to end-stage renal disease Hemodialysis today, monitor electrolytes --End-stage renal disease; on hemodialysis Nephrology consultation, HD per schedule --Hypertension; moderate control Resume home antihypertensives and when necessary medications --History of lupus; resume home medications Supportive care --DVT prophylaxis; Lovenox renal dose Monitor closely and adjust the management as needed Of care is reviewed with the patient, her nurse and case management Disposition; stable to be transferred out of telemetry to medical floor History Interval history: Patient seen and examined medical records reviewed Patient complains of generalized body pains and leg pains Patient is already on amitriptyline, morphine and Percocet Receiving hemodialysis per schedule Alert awake oriented 3 Vital signs reviewed Hospitalist Physical - Constitutional Vitals: Temp Pulse Resp BP Pulse Ox 97.6 F 80 20 158/108 100 07/28/19 08:00 07/28/19 08:00 07/28/19 09:19 07/28/19 08:00 07/27/19 23:11 General appearance: Present: no acute distress, well-nourished, obese - EENT Eyes: Present: PERRL, EOM intact - Neck Neck: Present: supple, normal ROM - Respiratory Respiratory effort: normal Respiratory: bilateral: diminished, negative: rales, rhonchi, wheezing - Cardiovascular Rhythm: regular Heart Sounds: Present: S1 & S2 - Extremities Extremities: no ischemia, No edema - Abdominal General gastrointestinal: soft, non-tender, non-distended, normal bowel sounds - Integumentary Integumentary: Present: clear, warm - Psychiatric Psychiatric: appropriate mood/affect, cooperative - Neurologic Neurologic: moves all extremities Results - Labs CBC & Chem 7: 07/28/19 07:01 07/28/19 15:23 Labs: Laboratory Last Values WBC 29.4 K/mm3 (4.5-11.0) H 07/28/19 07:01 RBC 3.88 M/mm3 (3.65-5.03) 07/28/19 07:01 Hgb 9.0 gm/dl (10.1-14.3) L 07/28/19 07:01 Hct 28.6 % (30.3-42.9) L 07/28/19 07:01 MCV 74 fl (79-97) L 07/28/19 07:01 MCH 23 pg (28-32) L 07/28/19 07:01 MCHC 32 % (30-34) 07/28/19 07:01 RDW 30.9 % (13.2-15.2) H 07/28/19 07:01 Plt Count 237 K/mm3 (140-440) 07/26/19 05:25 Add Manual Diff Complete 07/28/19 07:01 Total Counted 100 07/28/19 07:01 Seg Neuts % (Manual) 92.0 % (40.0-70.0) H 07/28/19 07:01 2.0 % 07/28/19 07:01 3.0 % (13.4-35.0) L 07/28/19 07:01 Reactive Lymphs % (Man) 0 % 07/28/19 07:01 3.0 % (0.0-7.3) 07/28/19 07:01 0 % (0.0-4.3) 07/28/19 07:01 0 % (0.0-1.8) 07/28/19 07:01 0 % 07/28/19 07:01 0 % 07/28/19 07:01 0 % 07/28/19 07:01 0 % 07/28/19 07:01 Nucleated RBC % Not Reportable 07/28/19 07:01 Seg Neutrophils # Man 27.0 K/mm3 (1.8-7.7) H 07/28/19 07:01 Band Neutrophils # 0.6 K/mm3 07/28/19 07:01 0.9 K/mm3 (1.2-5.4) L 07/28/19 07:01 Abs React Lymphs (Man) 0.0 K/mm3 07/28/19 07:01 0.9 K/mm3 (0.0-0.8) H 07/28/19 07:01 0.0 K/mm3 (0.0-0.4) 07/28/19 07:01 0.0 K/mm3 (0.0-0.1) 07/28/19 07:01 0.0 K/mm3 07/28/19 07:01 0.0 K/mm3 07/28/19 07:01 0.0 K/mm3 07/28/19 07:01 Blast Cells # 0.0 K/mm3 07/28/19 07:01 WBC Morphology Not Reportable 07/28/19 07:01 Hypersegmented Neuts Not Reportable 07/28/19 07:01 Hyposegmented Neuts Not Reportable 07/28/19 07:01 Hypogranular Neuts Not Reportable 07/28/19 07:01 Not Reportable 07/28/19 07:01 Not Reportable 07/28/19 07:01 Not Reportable 07/28/19 07:01 Not Reportable 07/28/19 07:01 Not Reportable 07/28/19 07:01 Not Reportable 07/28/19 07:01 Consistent w auto 07/28/19 07:01 Not Reportable 07/28/19 07:01 Plt Clumps, EDTA Not Reportable 07/28/19 07:01 Not Reportable 07/28/19 07:01 Not Reportable 07/28/19 07:01 Not Reportable 07/28/19 07:01 Plt Morphology Comment Not Reportable 07/28/19 07:01 RBC Morphology Not Reportable 07/28/19 07:01 Dimorphic RBCs Not Reportable 07/28/19 07:01 Not Reportable 07/28/19 07:01 1+ 07/28/19 07:01 Not Reportable 07/28/19 07:01 3+ 07/28/19 07:01 Not Reportable 07/28/19 07:01 Not Reportable 07/28/19 07:01 Not Reportable 07/28/19 07:01 Not Reportable 07/28/19 07:01 Not Reportable 07/28/19 07:01 Few 07/28/19 07:01 Rare 07/28/19 07:01 Few 07/28/19 07:01 Not Reportable 07/28/19 07:01 Not Reportable 07/28/19 07:01 Not Reportable 07/28/19 07:01 Not Reportable 07/28/19 07:01 Not Reportable 07/28/19 07:01 Not Reportable 07/28/19 07:01 Few 07/28/19 07:01 Acanthocytes (Spur) Not Reportable 07/28/19 07:01 Rouleaux Not Reportable 07/28/19 07:01 Not Reportable 07/28/19 07:01 Not Reportable 07/28/19 07:01 Not Reportable 07/28/19 07:01 ESR 78 mm/Hr (0-20) 07/26/19 05:25 Not Reportable 07/28/19 07:01 Hem Pathologist Commnt No 07/28/19 07:01 PT 16.7 Sec. (12.2-14.9) H 07/26/19 06:31 INR 1.39 (0.87-1.13) H 07/26/19 06:31 APTT 41.1 Sec. (24.2-36.6) H 07/26/19 06:31 Sodium 138 mmol/L (137-145) 07/28/19 07:01 Potassium 5.9 mmol/L (3.6-5.0) H 07/28/19 07:01 Chloride 94.0 mmol/L (98-107) L 07/28/19 07:01 Carbon Dioxide 22 mmol/L (22-30) 07/28/19 07:01 28 mmol/L 07/28/19 07:01 BUN 55 mg/dL (7-17) H 07/28/19 07:01 9.5 mg/dL (0.7-1.2) H 07/28/19 07:01 Estimated GFR 6 ml/min 07/28/19 07:01 6 % 07/28/19 07:01 Glucose 96 mg/dL (65-100) 07/28/19 07:01 POC Glucose 67 (70-105) L 07/26/19 20:51 Lactic Acid 1.10 mmol/L (0.7-2.0) 07/26/19 06:31 Calcium 10.1 mg/dL (8.4-10.2) D 07/28/19 07:01 Magnesium 2.10 mg/dL (1.7-2.3) 07/26/19 06:31 0.30 mg/dL (0.1-1.2) 07/26/19 06:31 < 0.2 mg/dL (0-0.2) 07/26/19 06:31 0.1 mg/dL 07/26/19 06:31 AST < 5 units/L (5-40) L 07/26/19 06:31 ALT < 5 units/L (7-56) L 07/26/19 06:31 70 units/L (35-129) 07/26/19 06:31 43 units/L (30-135) 07/26/19 05:25 0.072 ng/mL (0.00-0.029) H 07/26/19 06:31 NT-Pro-B Natriuret Pep 10529 pg/mL (0-450) H 07/26/19 06:31 6.4 g/dL (6.3-8.2) 07/26/19 06:31 3.2 g/dL (3.9-5) L 07/26/19 06:31 1.0 % 07/26/19 06:31 Triglycerides 170 mg/dL (2-149) H 07/26/19 06:31 Cholesterol 91 mg/dL (50-199) 07/26/19 06:31 30 mg/dL (50-130) L 07/26/19 06:31 25 mg/dL (40-59) L 07/26/19 06:31 3.64 % 07/26/19 06:31 HCG, Qual Negative (Negative) 07/26/19 06:33 HCG, Quant < 2 mIU/mL (0-4) 07/26/19 05:25 Random Vancomycin 14.9 ug/mL (0-40.0) 07/28/19 07:01 RPR Nonreactive (Nonreactive) 07/26/19 05:25 Hepatitis A IgM Ab Non-reactive (NonReactive) 07/26/19 10:53 Hep Bs Antigen Non-reactive (Negative) 07/26/19 10:53 Hep B Core IgM Ab Non-reactive (NonReactive) 07/26/19 10:53 Non-reactive (NonReactive) 07/26/19 10:53 Blood Type A POSITIVE 07/26/19 06:33 Antibody Screen Negative 07/26/19 06:33 Crossmatch See Detail 07/26/19 06:33 Active Medications - Current Medications Current Medications: Generic Name Dose Route Start Last Admin Trade Name Freq PRN Reason Stop Dose Admin Acetaminophen 650 mg 07/26/19 11:08 Tylenol PO Q6H PRN Pain, Mild (1-3) Albuterol 2.5 mg 07/26/19 15:39 Proventil IH QID PRN Wheezing Amitriptyline HCl 25 mg 07/26/19 22:00 07/27/19 23:39 Elavil PO 25 mg QHS JOEL Administration Cyanocobalamin 1,000 mcg 07/27/19 10:00 07/27/19 09:31 Vitamin B-12 PO 1,000 mcg QDAY JOEL Administration Dextrose 25 ml 07/26/19 11:06 07/26/19 12:32 D50w (25gm) Syringe IV 25 ml PRN PRN Administration Hypoglycemia Epoetin Mitch 10,000 unit 07/26/19 10:10 07/26/19 17:28 Procrit IV 10,000 unit FAN PRN Administration hemodialysis Folic Acid 1 mg 07/27/19 10:00 07/27/19 09:31 Folvite PO 1 mg QDAY JOEL Administration Gabapentin 100 mg 07/26/19 14:00 07/28/19 05:46 Neurontin PO 100 mg Q8HR JOEL Administration Hydroxychloroquine Sulfate 200 mg 07/27/19 10:00 07/27/19 09:31 Plaquenil PO 200 mg QDAY JOEL Administration Hydroxyzine HCl 50 mg 07/27/19 10:00 07/27/19 09:30 Atarax PO 50 mg QDAY JOEL Administration Sodium Chloride 100 mls @ 999 mls/hr 07/26/19 12:30 Nacl 0.9% IV FAN PRN Hypotension Cefepime HCl 1 gm in 100 mls @ 200 mls/hr 07/27/19 10:00 07/27/19 09:31 Maxipime/Ns 1 Gm/100 Ml IV 200 mls/hr Q24HR JOEL Administration Protocol Labetalol HCl 300 mg 07/26/19 16:00 07/27/19 23:38 Normodyne PO 300 mg BID JOEL Administration Losartan Potassium 50 mg 07/27/19 10:00 07/27/19 09:30 Cozaar PO 50 mg QDAY JOEL Administration Mirtazapine 7.5 mg 07/26/19 22:00 07/27/19 23:39 Remeron PO 7.5 mg QHS JOEL Administration Morphine Sulfate 2 mg 07/27/19 14:26 Morphine IV Q4H PRN Pain, Moderate (4-6) Mycophenolate Mofetil 500 mg 07/27/19 10:00 07/27/19 09:30 Cellcept PO Not Given QDAY [facility] Oxycodone/Acetaminophen 1 tab 07/26/19 20:56 07/28/19 09:19 Percocet 5/325 PO 1 tab Q6H PRN Administration Pain, Moderate (4-6) Prednisone 20 mg 07/27/19 10:00 07/27/19 09:31 Deltasone PO 20 mg QDAY JOEL Administration Sevelamer Carbonate 800 mg 07/26/19 16:30 07/27/19 17:09 Renvela PO Not Given 0730,1630 [facility] Nutrition/Malnutrition Assess - Dietary Evaluation Nutrition/Malnutrition Findings: Nutrition Notes Start: 07/26/19 14:40 Freq: Status: Active Protocol: Document 07/27/19 09:43 KS (Rec: 07/27/19 10:02 KS [id number]) Co-Sign 07/27/19 09:43 LM Nutrition Notes Need for Assessment 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 Pt reports eating full meals [employer]. Pt reports losing 40lbs but reports UBW of 160 ( 20 pound gain). Pt reports decreased appetite. Pt ate 50% breakfast tray this morning. Burn Absent Trauma Absent Minimum of two criteria No #2 Nutrition Diagnosis Increased nutrient needs ( specify in comment below) Comments: PRO Etiology wound healing As Evidenced by Signs and Symptoms knee and thigh wounds #1 Nutrition Diagnosis Inadequate oral intake Etiology decreased appetite As Evidenced by Signs and Symptoms pt reports decreased appetite, pt eating 50% of meals Is patient on ventilator? No Is Patient Ambulatory and/or Out of Bed Yes REE-([place]-St. Jeor-ambulatory/OOB) [ 1913.639 [id number]] Calculation Used for Recommendations Umberto Figueroa Additional Notes PRO: 78-98g/day (1.2-1.5g/kg/ day AdBW 65.28) Fluid: 1-1.5L/day Nutrition Intervention Change Diet Order: Continue current diet Goal #1 Meet at least 75% of energy/ PRO needs via PO intakes Anticipated Discharge Needs: Renal diet Follow-Up By: 07/29/19 Additional Comments F/U for PO intakes, need for ONS
[2019-07-28 12:56] LABS: Platelet Count 199 K/mm3 (140-440)
[2019-07-28] MEDS: CELLCEPT PO SCH (13:04)
[2019-07-28] MEDS: VITAMIN B-12 PO SCH (13:04)
[2019-07-28] MEDS: DELTASONE PO SCH (13:05)
[2019-07-28] MEDS: FOLVITE PO SCH (13:05)
[2019-07-28] MEDS: PLAQUENIL PO SCH (13:05)
[2019-07-28] MEDS: ATARAX PO SCH (13:05)
[2019-07-28] MEDS: NORMODYNE PO SCH ×2 (13:06→23:09)
[2019-07-28] MEDS: COZAAR PO SCH (13:31)
[2019-07-28 15:58] LABS: Calcium 9.1 mg/dL (8.4-10.2)
[2019-07-28] MEDS ORDERED: PROCRIT ONE (18:00)
[2019-07-28] MEDS: PROCRIT IV PRN (18:19)
[2019-07-28] MEDS ORDERED: VANCOMYCIN/NS 1 GM/250 ML 1 GM/250 ML BAG IV ONE (20:00)
[2019-07-28] MEDS: MORPHINE IV PRN (20:38)
[2019-07-28] MEDS: ELAVIL PO SCH (23:08)
[2019-07-28] MEDS: REMERON PO SCH (23:10)
[2019-07-29] MEDS: MORPHINE IV PRN ×3 (02:44→23:18)
[2019-07-29] MEDS: NEURONTIN PO SCH ×3 (06:15→23:12)
[2019-07-29] MEDS: PERCOCET 5/325 PO PRN ×2 (06:15→15:17)
[2019-07-29] MEDS: RENVELA PO SCH ×2 (09:03→17:45)
--- NOTE | 2019-07-29 10:39 | Progress Note ---
Assessment and Plan Impression/Plan: #ESRD on HD with missed HD #Hyperkalemia #Metabolic Acidosis #Microcytic Anemia- improved with hemoglobin 9 from 6.9 #Leukocytosis #Tachycardia #Hypoglycemia #Neuropathic Foot Pain - continue HD T// as tolerated, plan for HD tomorrow - UF 2-3L as tolerated - antibiotics, infectious workup per primary/ID; blood cultures NGTD - 2K bath given hyperkalemia - agree with low dose gabapentin for presumed neuropathic pain - epogen 10K, titrate as needed - wound care per primary - strict Is/Os - avoid nephrotoxins - renally dose all meds Thank you for this interesting consult; we will continue to follow and provide renal related recommendations for this medically complex patient. for any questions or concerns. Subjective Date of service: 07/29/19 Principal diagnosis: anemia, dizziness Interval history: no acute events noted overnight. Continues to have multiple complaints of pain in her feet with numbness, and overall feeling poorly. Had HD yesterday afternoon and tolerated well, denies any cramping, dizziness, lightheadedness on HD. No dyspnea or chest pain noted this morning. States that she is unable to walk or put pressure on her feet due to pain. Objective - Exam Narrative Exam: General appearance: well-developed, frail appearing, mild distress EENT: PERRL, mucous membranes moist Neck: Present: neck supple, trachea midline Respiratory: Clear to Auscultation Heart: regular, normal heart rate, S1S2, no murmurs Gastrointestinal: Present: normal bowel sounds Integumentary: no rash, warm and dry. Heels with bandages Neurologic: no focal deficit, alert and oriented x3, strength 5/5 Musculoskeletal: Absent: deformities, joint swelling Additional exam: AVF with good bruit, thrill - Vital Signs Vital signs: Vital Signs - 12hr 07/28/19 07/28/19 07/29/19 23:06 23:09 05:51 Temperature 97.7 F 97.5 F L Pulse Rate 79 79 87 Respiratory 20 20 Rate Blood Pressure 149/101 149/101 174/123 Blood Pressure [Right] O2 Sat by Pulse 96 98 Oximetry 07/29/19 06:26 Temperature Pulse Rate 83 Respiratory Rate Blood Pressure Blood Pressure 159/110 [Right] O2 Sat by Pulse Oximetry - Lab 07/28/19 07:01 07/28/19 15:23 Most recent lab results Calcium 9.1 mg/dL (8.4-10.2) 07/28/19 15:23 Magnesium 2.10 mg/dL (1.7-2.3) 07/26/19 06:31 Medications & Allergies - Medications Allergies/Adverse Reactions: Allergies lactose Adverse Reaction (Verified 07/29/19 08:16) Unknown Home Medications: Home Medications Medication Instructions Recorded Confirmed Last Taken Type Gabapentin 300 mg PO 3XW 11/14/18 07/26/19 07/25/19 History ALBUTEROL NEB's [Proventil] 2.5 mg IH QID PRN 07/26/19 07/26/19 07/25/19 History Amitriptyline [Elavil] 25 mg PO QHS 07/26/19 07/26/19 07/25/19 History Amitriptyline [Elavil] 25 mg PO QHS 07/26/19 07/26/19 07/25/19 History Cyanocobalamin (Vitamin B-12) 1,000 mcg PO QDAY 07/26/19 07/26/19 07/25/19 History [Vitamin B-12] Folic Acid [Folvite] 1 mg PO QDAY 07/26/19 07/26/19 07/25/19 History Hydroxychloroquine [Plaquenil] 200 mg PO QDAY 07/26/19 07/26/19 07/25/19 History Ibuprofen [Motrin] 800 mg PO Q8HR PRN 07/26/19 07/26/19 07/25/19 History Labetalol HCl [Labetalol 300mg TAB] 300 mg PO Q12H 07/26/19 07/26/19 07/25/19 History Losartan [Cozaar] 50 mg PO QDAY 07/26/19 07/26/19 07/25/19 History Mirtazapine 7.5 mg PO QDAY 07/26/19 07/26/19 07/25/19 History Mycophenolate [Cellcept] 500 mg PO QDAY 07/26/19 07/26/19 07/25/19 History Pantoprazole [Protonix] 40 mg PO BID 07/26/19 07/26/19 07/25/19 History Pregabalin [Lyrica] 25 mg PO QDAY 07/26/19 07/26/19 07/25/19 History Sevelamer HCl [Renagel] 800 mg PO BIDWM 07/26/19 07/26/19 07/25/19 History hydrOXYzine HCL [Atarax] 50 mg PO QDAY 07/26/19 07/26/19 07/25/19 History predniSONE [Deltasone] 20 mg PO QDAY 07/26/19 07/26/19 07/25/19 History Active Medications: Generic Name Dose Route Start Last Admin Trade Name Freq PRN Reason Stop Dose Admin Acetaminophen 650 mg 07/26/19 11:08 Tylenol PO Q6H PRN Pain, Mild (1-3) Albuterol 2.5 mg 07/26/19 15:39 Proventil IH QID PRN Wheezing Amitriptyline HCl 25 mg 07/26/19 22:00 07/28/19 23:08 Elavil PO 25 mg QHS JOEL Administration Cyanocobalamin 1,000 mcg 07/27/19 10:00 07/28/19 13:04 Vitamin B-12 PO 1,000 mcg QDAY JOEL Administration Dextrose 25 ml 07/26/19 11:06 07/26/19 12:32 D50w (25gm) Syringe IV 25 ml PRN PRN Administration Hypoglycemia Epoetin Mitch 10,000 unit 07/26/19 10:10 07/28/19 18:19 Procrit IV 10,000 unit FAN PRN Administration hemodialysis Folic Acid 1 mg 07/27/19 10:00 07/28/19 13:05 Folvite PO 1 mg QDAY JOEL Administration Gabapentin 100 mg 07/26/19 14:00 07/29/19 06:15 Neurontin PO 100 mg Q8HR JOEL Administration Hydroxychloroquine Sulfate 200 mg 07/27/19 10:00 07/28/19 13:05 Plaquenil PO 200 mg QDAY JOEL Administration Hydroxyzine HCl 50 mg 07/27/19 10:00 07/28/19 13:05 Atarax PO 50 mg QDAY JOEL Administration Sodium Chloride 100 mls @ 999 mls/hr 07/26/19 12:30 Nacl 0.9% IV FAN PRN Hypotension Cefepime HCl 1 gm in 100 mls @ 200 mls/hr 07/27/19 10:00 07/28/19 11:00 Maxipime/Ns 1 Gm/100 Ml IV 200 mls/hr Q24HR JOEL Administration Protocol Labetalol HCl 300 mg 07/26/19 16:00 07/28/19 23:09 Normodyne PO 300 mg BID JOEL Administration Losartan Potassium 50 mg 07/27/19 10:00 07/28/19 13:31 Cozaar PO 50 mg QDAY JOEL Administration Mirtazapine 7.5 mg 07/26/19 22:00 07/28/19 23:10 Remeron PO 7.5 mg QHS JOEL Administration Morphine Sulfate 2 mg 07/28/19 17:53 07/29/19 02:44 Morphine IV 2 mg Q6H PRN Administration Pain, Moderate (4-6) Mycophenolate Mofetil 500 mg 07/27/19 10:00 07/28/19 13:04 Cellcept PO 500 mg QDAY JOEL Administration Oxycodone/Acetaminophen 1 tab 07/26/19 20:56 07/29/19 06:15 Percocet 5/325 PO 1 tab Q6H PRN Administration Pain, Moderate (4-6) Prednisone 20 mg 07/27/19 10:00 07/28/19 13:05 Deltasone PO 20 mg QDAY JOEL Administration Sevelamer Carbonate 800 mg 07/26/19 16:30 07/29/19 09:03 Renvela PO 800 mg 0730,1630 JOEL Administration
[2019-07-29 10:52] LABS: Hematocrit 30.2 % (30.3-42.9); Hemoglobin 9.4 gm/dl (10.1-14.3); Mean Corpuscular HGB Conc 31 % (30-34); Mean Corpuscular Volume 75 fl (79-97)
[2019-07-29 11:05] LABS: Red Cell Distribution Width 30.9 % (13.2-15.2)
[2019-07-29 11:13] LABS: Calcium 9.3 mg/dL (8.4-10.2)
[2019-07-29] MEDS: COZAAR PO SCH (11:36)
[2019-07-29] MEDS: CELLCEPT PO SCH (11:37)
[2019-07-29] MEDS: FOLVITE PO SCH (11:38)
[2019-07-29] MEDS: DELTASONE PO SCH (11:38)
[2019-07-29] MEDS: ATARAX PO SCH (11:39)
[2019-07-29] MEDS: VITAMIN B-12 PO SCH (11:39)
[2019-07-29] MEDS: PLAQUENIL PO SCH (11:39)
[2019-07-29] MEDS: NORMODYNE PO SCH ×2 (11:40→23:12)
[2019-07-29] MEDS: MAXIPIME/NS 1 GM/100 ML 1 GM/100 ML BAG IV SCH (11:40)
[2019-07-29 12:06] LABS: Platelet Count 221 K/mm3 (140-440)
[2019-07-29 12:12] LABS: Basophils % (Manual) 0 % (0.0-1.8); Eosinophils % (Manual) 0 % (0.0-4.3); Total Cells Counted 100
[2019-07-29 12:13] LABS: Anisocytosis 3+; Hypochromasia 1+; Ovalocytes Few; Platelet Estimate Consistent w Auto; Target Cells Few; Tear Drop Cells Rare
--- NOTE | 2019-07-29 15:51 | Progress Note ---
Assessment and Plan Assessment and plan: --Sepsis; leukocytosis, fever, tachycardia Blood and urine cultures, empiric antibiotics IV fluids and supportive care, ID consult if needed --Severe leukocytosis; secondary to sepsis Continue vancomycin and cefepime, follow cultures --Wound Cultures gram-negative rods, follow sensitivities Wound care --Hyperkalemia; secondary to end-stage renal disease Hemodialysis today, monitor electrolytes --End-stage renal disease; on hemodialysis Nephrology consultation, HD per schedule --Hypertension; moderate control Resume home antihypertensives and when necessary medications --History of lupus; resume home medications Supportive care --DVT prophylaxis; Lovenox renal dose Monitor closely and adjust the management as needed Of care is reviewed with the patient, her nurse and case management Disposition; stable to be transferred out of telemetry to medical floor History Interval history: Patient Seen and examined medical records reviewed Patient complains of bilateral lower extremity ankle and foot pain Alert awake Oriented 3 Patient is loud and verbal Vital signs noted Hospitalist Physical - Constitutional Vitals: Temp Pulse Resp BP Pulse Ox 97.5 F L 80 20 148/108 98 07/29/19 05:51 07/29/19 11:40 07/29/19 05:51 07/29/19 11:40 07/29/19 05:51 General appearance: Present: no acute distress, well-nourished, obese - EENT Eyes: Present: PERRL, EOM intact - Neck Neck: Present: supple, normal ROM - Respiratory Respiratory effort: normal Respiratory: negative: rales, rhonchi, wheezing - Cardiovascular Rhythm: regular Heart Sounds: Present: S1 & S2 - Extremities Extremities: no ischemia, No edema - Abdominal General gastrointestinal: soft, non-tender, non-distended, normal bowel sounds - Integumentary Integumentary: Present: clear, warm - Psychiatric Psychiatric: appropriate mood/affect, cooperative - Neurologic Neurologic: moves all extremities Results - Labs CBC & Chem 7: 07/29/19 10:02 07/29/19 10:02 Labs: Laboratory Last Values WBC 13.4 K/mm3 (4.5-11.0) H 07/29/19 10:02 RBC 4.00 M/mm3 (3.65-5.03) 07/29/19 10:02 Hgb 9.4 gm/dl (10.1-14.3) L 07/29/19 10:02 Hct 30.2 % (30.3-42.9) L 07/29/19 10:02 MCV 75 fl (79-97) L 07/29/19 10:02 MCH 24 pg (28-32) L 07/29/19 10:02 MCHC 31 % (30-34) 07/29/19 10:02 RDW 30.9 % (13.2-15.2) H 07/29/19 10:02 Plt Count 221 K/mm3 (140-440) 07/29/19 10:02 Add Manual Diff Complete 07/29/19 10:02 Total Counted 100 07/29/19 10:02 Seg Neuts % (Manual) 91.0 % (40.0-70.0) H 07/29/19 10:02 0 % 07/29/19 10:02 7.0 % (13.4-35.0) L 07/29/19 10:02 Reactive Lymphs % (Man) 0 % 07/29/19 10:02 2.0 % (0.0-7.3) 07/29/19 10:02 0 % (0.0-4.3) 07/29/19 10:02 0 % (0.0-1.8) 07/29/19 10:02 0 % 07/29/19 10:02 0 % 07/29/19 10:02 0 % 07/29/19 10:02 0 % 07/29/19 10:02 Nucleated RBC % Not Reportable 07/29/19 10:02 Seg Neutrophils # Man 12.2 K/mm3 (1.8-7.7) H 07/29/19 10:02 Band Neutrophils # 0.0 K/mm3 07/29/19 10:02 0.9 K/mm3 (1.2-5.4) L 07/29/19 10:02 Abs React Lymphs (Man) 0.0 K/mm3 07/29/19 10:02 0.3 K/mm3 (0.0-0.8) 07/29/19 10:02 0.0 K/mm3 (0.0-0.4) 07/29/19 10:02 0.0 K/mm3 (0.0-0.1) 07/29/19 10:02 0.0 K/mm3 07/29/19 10:02 0.0 K/mm3 07/29/19 10:02 0.0 K/mm3 07/29/19 10:02 Blast Cells # 0.0 K/mm3 07/29/19 10:02 WBC Morphology Not Reportable 07/29/19 10:02 Hypersegmented Neuts Not Reportable 07/29/19 10:02 Hyposegmented Neuts Not Reportable 07/29/19 10:02 Hypogranular Neuts Not Reportable 07/29/19 10:02 Not Reportable 07/29/19 10:02 Not Reportable 07/29/19 10:02 Not Reportable 07/29/19 10:02 Not Reportable 07/29/19 10:02 Not Reportable 07/29/19 10:02 Not Reportable 07/29/19 10:02 Consistent w auto 07/29/19 10:02 Not Reportable 07/29/19 10:02 Plt Clumps, EDTA Not Reportable 07/29/19 10:02 Not Reportable 07/29/19 10:02 Not Reportable 07/29/19 10:02 Not Reportable 07/29/19 10:02 Plt Morphology Comment Not Reportable 07/29/19 10:02 RBC Morphology Not Reportable 07/29/19 10:02 Dimorphic RBCs Not Reportable 07/29/19 10:02 Not Reportable 07/29/19 10:02 1+ 07/29/19 10:02 Not Reportable 07/29/19 10:02 3+ 07/29/19 10:02 Not Reportable 07/29/19 10:02 Not Reportable 07/29/19 10:02 Not Reportable 07/29/19 10:02 Not Reportable 07/29/19 10:02 Not Reportable 07/29/19 10:02 Few 07/29/19 10:02 Rare 07/29/19 10:02 Few 07/29/19 10:02 Not Reportable 07/29/19 10:02 Not Reportable 07/29/19 10:02 Not Reportable 07/29/19 10:02 Not Reportable 07/29/19 10:02 Not Reportable 07/29/19 10:02 Not Reportable 07/29/19 10:02 Few 07/29/19 10:02 Acanthocytes (Spur) Not Reportable 07/29/19 10:02 Rouleaux Not Reportable 07/29/19 10:02 Not Reportable 07/29/19 10:02 Not Reportable 07/29/19 10:02 Not Reportable 07/29/19 10:02 ESR 78 mm/Hr (0-20) 07/26/19 05:25 Not Reportable 07/29/19 10:02 Hem Pathologist Commnt No 07/29/19 10:02 PT 16.7 Sec. (12.2-14.9) H 07/26/19 06:31 INR 1.39 (0.87-1.13) H 07/26/19 06:31 APTT 41.1 Sec. (24.2-36.6) H 07/26/19 06:31 Sodium 140 mmol/L (137-145) 07/29/19 10:02 Potassium 4.7 mmol/L (3.6-5.0) 07/29/19 10:02 Chloride 94.4 mmol/L (98-107) L 07/29/19 10:02 Carbon Dioxide 25 mmol/L (22-30) 07/29/19 10:02 25 mmol/L 07/29/19 10:02 BUN 49 mg/dL (7-17) H 07/29/19 10:02 7.3 mg/dL (0.7-1.2) H 07/29/19 10:02 Estimated GFR 8 ml/min 07/29/19 10:02 7 % 07/29/19 10:02 Glucose 80 mg/dL (65-100) 07/29/19 10:02 POC Glucose 67 (70-105) L 07/26/19 20:51 Lactic Acid 1.10 mmol/L (0.7-2.0) 07/26/19 06:31 Calcium 9.3 mg/dL (8.4-10.2) 07/29/19 10:02 Magnesium 2.10 mg/dL (1.7-2.3) 07/26/19 06:31 0.30 mg/dL (0.1-1.2) 07/26/19 06:31 < 0.2 mg/dL (0-0.2) 07/26/19 06:31 0.1 mg/dL 07/26/19 06:31 AST < 5 units/L (5-40) L 07/26/19 06:31 ALT < 5 units/L (7-56) L 07/26/19 06:31 70 units/L (35-129) 07/26/19 06:31 43 units/L (30-135) 07/26/19 05:25 0.072 ng/mL (0.00-0.029) H 07/26/19 06:31 NT-Pro-B Natriuret Pep 57763 pg/mL (0-450) H 07/26/19 06:31 6.4 g/dL (6.3-8.2) 07/26/19 06:31 3.2 g/dL (3.9-5) L 07/26/19 06:31 1.0 % 07/26/19 06:31 Triglycerides 170 mg/dL (2-149) H 07/26/19 06:31 Cholesterol 91 mg/dL (50-199) 07/26/19 06:31 30 mg/dL (50-130) L 07/26/19 06:31 25 mg/dL (40-59) L 07/26/19 06:31 3.64 % 07/26/19 06:31 HCG, Qual Negative (Negative) 07/26/19 06:33 HCG, Quant < 2 mIU/mL (0-4) 07/26/19 05:25 Random Vancomycin 14.9 ug/mL (0-40.0) 07/28/19 07:01 RPR Nonreactive (Nonreactive) 07/26/19 05:25 Hepatitis A IgM Ab Non-reactive (NonReactive) 07/26/19 10:53 Hep Bs Antigen Non-reactive (Negative) 07/26/19 10:53 Hep B Core IgM Ab Non-reactive (NonReactive) 07/26/19 10:53 Non-reactive (NonReactive) 07/26/19 10:53 Blood Type A POSITIVE 07/26/19 06:33 Antibody Screen Negative 07/26/19 06:33 Crossmatch See Detail 07/26/19 06:33 Active Medications - Current Medications Current Medications: Generic Name Dose Route Start Last Admin Trade Name Freq PRN Reason Stop Dose Admin Acetaminophen 650 mg 07/26/19 11:08 Tylenol PO Q6H PRN Pain, Mild (1-3) Albuterol 2.5 mg 07/26/19 15:39 Proventil IH QID PRN Wheezing Amitriptyline HCl 25 mg 07/26/19 22:00 07/28/19 23:08 Elavil PO 25 mg QHS JOEL Administration Cyanocobalamin 1,000 mcg 07/27/19 10:00 07/29/19 11:39 Vitamin B-12 PO 1,000 mcg QDAY JOEL Administration Dextrose 25 ml 07/26/19 11:06 07/26/19 12:32 D50w (25gm) Syringe IV 25 ml PRN PRN Administration Hypoglycemia Epoetin Mitch 10,000 unit 07/26/19 10:10 07/28/19 18:19 Procrit IV 10,000 unit FAN PRN Administration hemodialysis Folic Acid 1 mg 07/27/19 10:00 07/29/19 11:38 Folvite PO 1 mg QDAY JOEL Administration Gabapentin 100 mg 07/26/19 14:00 07/29/19 15:43 Neurontin PO Not Given Q8HR JOEL Hydroxychloroquine Sulfate 200 mg 07/27/19 10:00 07/29/19 11:39 Plaquenil PO 200 mg QDAY JOEL Administration Hydroxyzine HCl 50 mg 07/27/19 10:00 07/29/19 11:39 Atarax PO 50 mg QDAY JOEL Administration Sodium Chloride 100 mls @ 999 mls/hr 07/26/19 12:30 Nacl 0.9% IV FAN PRN Hypotension Cefepime HCl 1 gm in 100 mls @ 200 mls/hr 07/27/19 10:00 07/29/19 11:40 Maxipime/Ns 1 Gm/100 Ml IV 200 mls/hr Q24HR JOEL Administration Protocol Labetalol HCl 300 mg 07/26/19 16:00 07/29/19 11:40 Normodyne PO 300 mg BID JOEL Administration Losartan Potassium 50 mg 07/27/19 10:00 07/29/19 11:36 Cozaar PO 50 mg QDAY JOEL Administration Mirtazapine 7.5 mg 07/26/19 22:00 07/28/19 23:10 Remeron PO 7.5 mg QHS JOEL Administration Morphine Sulfate 1 mg 07/29/19 15:49 Morphine IV Q8H PRN Pain, Moderate (4-6) Mycophenolate Mofetil 500 mg 07/27/19 10:00 07/29/19 11:37 Cellcept PO 500 mg QDAY JOEL Administration Oxycodone/Acetaminophen 1 tab 07/29/19 15:49 Percocet 5/325 PO Q8H PRN Pain, Moderate (4-6) Prednisone 20 mg 07/27/19 10:00 07/29/19 11:38 Deltasone PO 20 mg QDAY JOEL Administration Sevelamer Carbonate 800 mg 07/26/19 16:30 07/29/19 09:03 Renvela PO 800 mg 0730,1630 JOEL Administration Nutrition/Malnutrition Assess - Dietary Evaluation Nutrition/Malnutrition Findings: Nutrition Notes Start: 07/26/19 14:40 Freq: Status: Active Protocol: Document 07/29/19 11:32 DW (Rec: 07/29/19 12:15 DW [id number]) Co-Sign 07/29/19 11:32 LP Nutrition Notes Initial or Follow up Reassessment Current Diagnosis CKD (stage V CKD),Hypertension Other Pertinent Diagnosis MRSA, lupus, anemia, wounds Current Diet Renal Labs/Tests BUN: 49 Cr: 7.3 Pertinent Medications Reviewed Height 5 ft 3 in Weight 78.29 kg [place] Body Weight (kg) 52.27 BMI 30.5 Subjective/Other Information Pt stated her appetite has not improved and has been eating <25% of her meals. Pt willing to try Ensure Clear Burn Absent Trauma Absent Minimum of two criteria No #2 Nutrition Diagnosis Increased nutrient needs ( specify in comment below) Diagnosis Progress(for reassessment Continues documentation) #1 Nutrition Diagnosis Inadequate oral intake Diagnosis Progress(for reassessment Continues documentation) Is patient on ventilator? No Is Patient Ambulatory and/or Out of Bed Yes REE-([place]. Jeor-ambulatory/OOB) [ 1913.639 [id number]] Calculation Used for Recommendations [place] or Additional Notes PRO: 78-98g/day (1.2-1.5g/kg/ day AdBW 65.28) Fluid: 1-1.5L/day Nutrition Intervention Change Diet Order: Continue current diet Add Supplement/Snack (indicate name/kcal Ensure Clear once daily /protein ) Provides kCal: 240 Provides Protein (gm) 8 Goal #1 Meet at least 75% of energy/ PRO needs via PO intakes Goal #2 Wound healing Anticipated Discharge Needs: Renal diet Follow-Up By: 08/02/19 Additional Comments FU PO/ONS tolerance
[2019-07-29] MEDS: ELAVIL PO SCH (23:12)
[2019-07-29] MEDS: REMERON PO SCH (23:14)
[2019-07-29] MEDS: ZOFRAN IV PRN (23:44)
[2019-07-30 03:12] LABS: Hematocrit 27.8 % (30.3-42.9); Hemoglobin 8.5 gm/dl (10.1-14.3); Mean Corpuscular HGB Conc 31 % (30-34); Mean Corpuscular Volume 75 fl (79-97); Red Blood Count 3.71 M/mm3 (3.65-5.03)
[2019-07-30 03:22] LABS: Platelet Count 226 K/mm3 (140-440); Red Cell Distribution Width 31.3 % (13.2-15.2)
[2019-07-30 03:33] LABS: Calcium 9.6 mg/dL (8.4-10.2)
[2019-07-30 04:13] LABS: Basophils % (Manual) 0 % (0.0-1.8); Eosinophils % (Manual) 0 % (0.0-4.3); Total Cells Counted 100
[2019-07-30 04:14] LABS: Anisocytosis 2+; Dimorphic RBC Yes; Hypochromasia 1+
[2019-07-30] MEDS: NEURONTIN PO SCH ×2 (06:14→14:01)
[2019-07-30] MEDS ORDERED: CALCIUM GLUCONATE 1,000 MG in NACL 0.9% 100 ML IV ONE (07:53)
[2019-07-30] MEDS ORDERED: KIONEX PO NR (07:54)
[2019-07-30] MEDS: RENVELA PO SCH ×3 (09:22→18:09)
[2019-07-30] MEDS ORDERED: ATIVAN IV ONE (10:58)
[2019-07-30] MEDS ORDERED: ATIVAN IM ONE (10:58)
[2019-07-30] MEDS ORDERED: ATIVAN IV PRN (11:02)
[2019-07-30] MEDS ORDERED: ATIVAN ONE (11:05)
[2019-07-30] MEDS ORDERED: NACL 0.9% 250ML 250 ML IV ONE (11:14)
--- NOTE | 2019-07-30 11:27 | Progress Note ---
Assessment and Plan Impression: * End-stage renal disease on maintenance hemodialysis * Hyperkalemia * New onset seizure * Leukocytosis * Hypotension * Anemia * Hypoglycemia * Neuropathy * Lupus Recommendations * Patient is scheduled for hemodialysis for today * Hopefully her hyperkalemia will be corrected with dialysis * Continue dialysis on TTS schedule for now * Patient's blood pressure is noted to be low. No ultrafiltration with dialysis today. * Okay to give fluid bolus. * Check anti-DNA antibody as well as complement level * Agree with neurology evaluation * Antibiotic therapy as per primary team * Epogen with dialysis * Adjust diet and meds for ESRD state * Hold losartan for now. Subjective Date of service: 07/30/19 Principal diagnosis: anemia, dizziness Interval history: Patient had a witnessed seizure this morning. She received Ativan. Currently somnolent. Objective - Vital Signs Vital signs: Vital Signs - 12hr 07/30/19 05:24 Temperature 97.9 F Respiratory 20 Rate Blood Pressure 124/87 - General Appearance General appearance: well-developed, well-nourished, appears stated age EENT: mucous membranes moist Neck: no JVD, no thyromegaly, no carotid bruit, supple Respiratory: Present: Clear to Ascultation Cardiology: regular, normal heart rate Gastrointestinal: normal, normoactive bowel sounds Integumentary: no rash, other (no edema. AV fistula in her left upper arm. Good bruit and thrill.) - Lab 07/30/19 02:40 07/30/19 02:40 Most recent lab results Calcium 9.6 mg/dL (8.4-10.2) 07/30/19 02:40 Magnesium 2.10 mg/dL (1.7-2.3) 07/26/19 06:31 Medications & Allergies - Medications Allergies/Adverse Reactions: Allergies lactose Adverse Reaction (Verified 07/29/19 08:16) Unknown Home Medications: Home Medications Medication Instructions Recorded Confirmed Last Taken Type Gabapentin 300 mg PO 3XW 11/14/18 07/26/19 07/25/19 History ALBUTEROL NEB's [Proventil] 2.5 mg IH QID PRN 07/26/19 07/26/19 07/25/19 History Amitriptyline [Elavil] 25 mg PO QHS 07/26/19 07/26/19 07/25/19 History Amitriptyline [Elavil] 25 mg PO QHS 07/26/19 07/26/19 07/25/19 History Cyanocobalamin (Vitamin B-12) 1,000 mcg PO QDAY 07/26/19 07/26/19 07/25/19 History [Vitamin B-12] Folic Acid [Folvite] 1 mg PO QDAY 07/26/19 07/26/19 07/25/19 History Hydroxychloroquine [Plaquenil] 200 mg PO QDAY 07/26/19 07/26/19 07/25/19 History Ibuprofen [Motrin] 800 mg PO Q8HR PRN 07/26/19 07/26/19 07/25/19 History Labetalol HCl [Labetalol 300mg TAB] 300 mg PO Q12H 07/26/19 07/26/19 07/25/19 History Losartan [Cozaar] 50 mg PO QDAY 07/26/19 07/26/19 07/25/19 History Mirtazapine 7.5 mg PO QDAY 07/26/19 07/26/19 07/25/19 History Mycophenolate [Cellcept] 500 mg PO QDAY 07/26/19 07/26/19 07/25/19 History Pantoprazole [Protonix] 40 mg PO BID 07/26/19 07/26/19 07/25/19 History Pregabalin [Lyrica] 25 mg PO QDAY 07/26/19 07/26/19 07/25/19 History Sevelamer HCl [Renagel] 800 mg PO BIDWM 07/26/19 07/26/19 07/25/19 History hydrOXYzine HCL [Atarax] 50 mg PO QDAY 07/26/19 07/26/19 07/25/19 History predniSONE [Deltasone] 20 mg PO QDAY 07/26/19 07/26/19 07/25/19 History Active Medications: Generic Name Dose Route Start Last Admin Trade Name Freq PRN Reason Stop Dose Admin Acetaminophen 650 mg 07/26/19 11:08 Tylenol PO Q6H PRN Pain, Mild (1-3) Albuterol 2.5 mg 07/26/19 15:39 Proventil IH QID PRN Wheezing Amitriptyline HCl 25 mg 07/26/19 22:00 07/29/19 23:12 Elavil PO 25 mg QHS JOEL Administration Cyanocobalamin 1,000 mcg 07/27/19 10:00 07/29/19 11:39 Vitamin B-12 PO 1,000 mcg QDAY JOEL Administration Dextrose 25 ml 07/26/19 11:06 07/26/19 12:32 D50w (25gm) Syringe IV 25 ml PRN PRN Administration Hypoglycemia Epoetin Mitch 10,000 unit 07/26/19 10:10 07/28/19 18:19 Procrit IV 10,000 unit FAN PRN Administration hemodialysis Folic Acid 1 mg 07/27/19 10:00 07/29/19 11:38 Folvite PO 1 mg QDAY JOEL Administration Gabapentin 100 mg 07/26/19 14:00 07/30/19 06:14 Neurontin PO 100 mg Q8HR JOEL Administration Hydroxychloroquine Sulfate 200 mg 07/27/19 10:00 07/29/19 11:39 Plaquenil PO 200 mg QDAY JOEL Administration Hydroxyzine HCl 50 mg 07/27/19 10:00 07/29/19 11:39 Atarax PO 50 mg QDAY JOEL Administration Sodium Chloride 100 mls @ 999 mls/hr 07/26/19 12:30 Nacl 0.9% IV FAN PRN Hypotension Cefepime HCl 1 gm in 100 mls @ 200 mls/hr 07/27/19 10:00 07/29/19 11:40 Maxipime/Ns 1 Gm/100 Ml IV 200 mls/hr Q24HR JOEL Administration Protocol Levetiracetam 500 mg/ Dextrose 105 mls @ 400 mls/hr 07/30/19 11:04 IV 07/30/19 11:19 BID ONE Sodium Chloride 250 mls @ 999 mls/hr 07/30/19 11:14 Nacl 0.9% 250ml IV 07/30/19 11:29 ONCE ONE Labetalol HCl 300 mg 07/26/19 16:00 07/29/19 23:12 Normodyne PO 300 mg BID JOEL Administration Lorazepam 2 mg 07/30/19 11:02 Ativan IV Q1H PRN Seizures Losartan Potassium 50 mg 07/27/19 10:00 07/29/19 11:36 Cozaar PO 50 mg QDAY JOEL Administration Mirtazapine 7.5 mg 07/26/19 22:00 07/29/19 23:14 Remeron PO 7.5 mg QHS JOEL Administration Morphine Sulfate 1 mg 07/29/19 15:49 07/29/19 23:18 Morphine IV 1 mg Q8H PRN Administration Pain, Moderate (4-6) Mycophenolate Mofetil 500 mg 07/27/19 10:00 07/29/19 11:37 Cellcept PO 500 mg QDAY JOEL Administration Ondansetron HCl 4 mg 07/29/19 23:31 07/29/19 23:44 Zofran IV 4 mg Q6H PRN Administration Nausea And Vomiting Oxycodone/Acetaminophen 1 tab 07/29/19 15:49 Percocet 5/325 PO Q8H PRN Pain, Moderate (4-6) Prednisone 20 mg 07/27/19 10:00 07/29/19 11:38 Deltasone PO 20 mg QDAY JOEL Administration Sevelamer Carbonate 800 mg 07/26/19 16:30 07/30/19 09:22 Renvela PO 800 mg 0730,1630 JOEL Administration
--- NOTE | 2019-07-30 11:36 | Progress Note ---
Assessment and Plan Assessment and plan: --New onset seizures this morning: Tonic-clonic, generalized IV ativan 2 mg stat, started on Keppra 500 IV every 12 Seizure precautions, Ativan 2 mg every 1 hour when necessary for seizures EEG, CT head without contrast when stable, nephrology consult discussed with --Hypotension; fluid bolus 250 ml NS If no improvement, consider vasopressors and transferred to ICU --Sepsis; leukocytosis, fever, tachycardia Blood and urine cultures, empiric antibiotics IV fluids and supportive care, ID consult if needed --Severe leukocytosis; secondary to sepsis trending down Continue cefepime, amikacin if needed --Wound Cultures gram-negative rods, on cefepime --Hyperkalemia; secondary to end-stage renal disease Hemodialysis today, monitor electrolytes --End-stage renal disease; on hemodialysis Nephrology consultation, HD per schedule --Hypertension; moderate control Resume home antihypertensives and when necessary medications --History of lupus; resume home medications Supportive care --DVT prophylaxis; Lovenox renal dose Follow CT head, follow neurology evaluation and recommendations Seizure precautions, hemodialysis and blood pressures are reasonable Contact family member to update patient's condition Critical care time 50 minutes. History Interval history: Patient had new onset seizures" [facility] called The patient was having tonic-clonic seizures Received 2 mg of IV Ativan, vital signs stable That should this normal range Patient is postictal Hospitalist Physical - Constitutional Vitals: Temp Pulse Resp BP Pulse Ox 97.9 F 80 20 124/87 100 07/30/19 05:24 07/29/19 23:12 07/30/19 05:24 07/30/19 05:24 07/29/19 20:57 General appearance: Present: well-nourished, obese, other (lethergic postictal) - EENT Eyes: Present: PERRL, EOM intact - Neck Neck: Present: supple, normal ROM - Respiratory Respiratory effort: normal Respiratory: negative: rales, rhonchi, wheezing - Cardiovascular Rhythm: regular Heart Sounds: Present: S1 & S2 - Extremities Extremities: no ischemia, No edema - Abdominal General gastrointestinal: soft, non-tender, non-distended, normal bowel sounds - Integumentary Integumentary: Present: clear, warm - Psychiatric Psychiatric: other (postictal) - Neurologic Neurologic: moves all extremities Results - Labs CBC & Chem 7: 07/30/19 02:40 07/30/19 02:40 Labs: Laboratory Last Values WBC 19.2 K/mm3 (4.5-11.0) H 07/30/19 02:40 RBC 3.71 M/mm3 (3.65-5.03) 07/30/19 02:40 Hgb 8.5 gm/dl (10.1-14.3) L 07/30/19 02:40 Hct 27.8 % (30.3-42.9) L 07/30/19 02:40 MCV 75 fl (79-97) L 07/30/19 02:40 MCH 23 pg (28-32) L 07/30/19 02:40 MCHC 31 % (30-34) 07/30/19 02:40 RDW 31.3 % (13.2-15.2) H 07/30/19 02:40 Plt Count 226 K/mm3 (140-440) 07/30/19 02:40 Add Manual Diff Complete 07/30/19 02:40 Total Counted 100 07/30/19 02:40 Seg Neuts % (Manual) 83.0 % (40.0-70.0) H 07/30/19 02:40 0 % 07/30/19 02:40 10.0 % (13.4-35.0) L 07/30/19 02:40 Reactive Lymphs % (Man) 0 % 07/30/19 02:40 7.0 % (0.0-7.3) 07/30/19 02:40 0 % (0.0-4.3) 07/30/19 02:40 0 % (0.0-1.8) 07/30/19 02:40 0 % 07/30/19 02:40 0 % 07/30/19 02:40 0 % 07/30/19 02:40 0 % 07/30/19 02:40 Nucleated RBC % Not Reportable 07/30/19 02:40 Seg Neutrophils # Man 15.9 K/mm3 (1.8-7.7) H 07/30/19 02:40 Band Neutrophils # 0.0 K/mm3 07/30/19 02:40 1.9 K/mm3 (1.2-5.4) 07/30/19 02:40 Abs React Lymphs (Man) 0.0 K/mm3 07/30/19 02:40 1.3 K/mm3 (0.0-0.8) H 07/30/19 02:40 0.0 K/mm3 (0.0-0.4) 07/30/19 02:40 0.0 K/mm3 (0.0-0.1) 07/30/19 02:40 0.0 K/mm3 07/30/19 02:40 0.0 K/mm3 07/30/19 02:40 0.0 K/mm3 07/30/19 02:40 Blast Cells # 0.0 K/mm3 07/30/19 02:40 WBC Morphology Not Reportable 07/30/19 02:40 Hypersegmented Neuts Not Reportable 07/30/19 02:40 Hyposegmented Neuts Not Reportable 07/30/19 02:40 Hypogranular Neuts Not Reportable 07/30/19 02:40 Not Reportable 07/30/19 02:40 Not Reportable 07/30/19 02:40 Not Reportable 07/30/19 02:40 Not Reportable 07/30/19 02:40 Not Reportable 07/30/19 02:40 Not Reportable 07/30/19 02:40 Not Reportable 07/30/19 02:40 Not Reportable 07/30/19 02:40 Plt Clumps, EDTA Not Reportable 07/30/19 02:40 Not Reportable 07/30/19 02:40 Not Reportable 07/30/19 02:40 Not Reportable 07/30/19 02:40 Plt Morphology Comment Not Reportable 07/30/19 02:40 RBC Morphology Not Reportable 07/30/19 02:40 Dimorphic RBCs Yes 07/30/19 02:40 Not Reportable 07/30/19 02:40 1+ 07/30/19 02:40 Not Reportable 07/30/19 02:40 2+ 07/30/19 02:40 1+ 07/30/19 02:40 Not Reportable 07/30/19 02:40 Not Reportable 07/30/19 02:40 Not Reportable 07/30/19 02:40 Not Reportable 07/30/19 02:40 Not Reportable 07/30/19 02:40 Not Reportable 07/30/19 02:40 Not Reportable 07/30/19 02:40 Not Reportable 07/30/19 02:40 Not Reportable 07/30/19 02:40 Not Reportable 07/30/19 02:40 Not Reportable 07/30/19 02:40 Not Reportable 07/30/19 02:40 Not Reportable 07/30/19 02:40 Not Reportable 07/30/19 02:40 Acanthocytes (Spur) Not Reportable 07/30/19 02:40 Rouleaux Not Reportable 07/30/19 02:40 Not Reportable 07/30/19 02:40 Not Reportable 07/30/19 02:40 Not Reportable 07/30/19 02:40 ESR 78 mm/Hr (0-20) 07/26/19 05:25 Not Reportable 07/30/19 02:40 Hem Pathologist Commnt No 07/30/19 02:40 PT 16.7 Sec. (12.2-14.9) H 07/26/19 06:31 INR 1.39 (0.87-1.13) H 07/26/19 06:31 APTT 41.1 Sec. (24.2-36.6) H 07/26/19 06:31 Sodium 141 mmol/L (137-145) 07/30/19 02:40 Potassium 6.0 mmol/L (3.6-5.0) H D 07/30/19 02:40 Chloride 97.0 mmol/L (98-107) L 07/30/19 02:40 Carbon Dioxide 29 mmol/L (22-30) 07/30/19 02:40 21 mmol/L 07/30/19 02:40 BUN 67 mg/dL (7-17) H 07/30/19 02:40 8.6 mg/dL (0.7-1.2) H 07/30/19 02:40 Estimated GFR 7 ml/min 07/30/19 02:40 8 % 07/30/19 02:40 Glucose 105 mg/dL (65-100) H 07/30/19 02:40 POC Glucose 99 (70-105) 07/30/19 11:06 Lactic Acid 1.10 mmol/L (0.7-2.0) 07/26/19 06:31 Calcium 9.6 mg/dL (8.4-10.2) 07/30/19 02:40 Magnesium 2.10 mg/dL (1.7-2.3) 07/26/19 06:31 0.30 mg/dL (0.1-1.2) 07/26/19 06:31 < 0.2 mg/dL (0-0.2) 07/26/19 06:31 0.1 mg/dL 07/26/19 06:31 AST < 5 units/L (5-40) L 07/26/19 06:31 ALT < 5 units/L (7-56) L 07/26/19 06:31 70 units/L (35-129) 07/26/19 06:31 43 units/L (30-135) 07/26/19 05:25 0.072 ng/mL (0.00-0.029) H 07/26/19 06:31 NT-Pro-B Natriuret Pep 54737 pg/mL (0-450) H 07/26/19 06:31 6.4 g/dL (6.3-8.2) 07/26/19 06:31 3.2 g/dL (3.9-5) L 07/26/19 06:31 1.0 % 07/26/19 06:31 Triglycerides 170 mg/dL (2-149) H 07/26/19 06:31 Cholesterol 91 mg/dL (50-199) 07/26/19 06:31 30 mg/dL (50-130) L 07/26/19 06:31 25 mg/dL (40-59) L 07/26/19 06:31 3.64 % 07/26/19 06:31 HCG, Qual Negative (Negative) 07/30/19 02:40 HCG, Quant < 2 mIU/mL (0-4) 07/26/19 05:25 Random Vancomycin 14.9 ug/mL (0-40.0) 07/28/19 07:01 RPR Nonreactive (Nonreactive) 07/26/19 05:25 Hepatitis A IgM Ab Non-reactive (NonReactive) 07/26/19 10:53 Hep Bs Antigen Non-reactive (Negative) 07/26/19 10:53 Hep B Core IgM Ab Non-reactive (NonReactive) 07/26/19 10:53 Non-reactive (NonReactive) 07/26/19 10:53 Blood Type A POSITIVE 07/26/19 06:33 Antibody Screen Negative 07/26/19 06:33 Crossmatch See Detail 07/26/19 06:33 Active Medications - Current Medications Current Medications: Generic Name Dose Route Start Last Admin Trade Name Freq PRN Reason Stop Dose Admin Acetaminophen 650 mg 07/26/19 11:08 Tylenol PO Q6H PRN Pain, Mild (1-3) Albuterol 2.5 mg 07/26/19 15:39 Proventil IH QID PRN Wheezing Amitriptyline HCl 25 mg 07/26/19 22:00 07/29/19 23:12 Elavil PO 25 mg QHS JOEL Administration Cyanocobalamin 1,000 mcg 07/27/19 10:00 07/29/19 11:39 Vitamin B-12 PO 1,000 mcg QDAY JOEL Administration Dextrose 25 ml 07/26/19 11:06 07/26/19 12:32 D50w (25gm) Syringe IV 25 ml PRN PRN Administration Hypoglycemia Epoetin Mitch 10,000 unit 07/26/19 10:10 07/28/19 18:19 Procrit IV 10,000 unit FAN PRN Administration hemodialysis Folic Acid 1 mg 07/27/19 10:00 07/29/19 11:38 Folvite PO 1 mg QDAY JOEL Administration Gabapentin 100 mg 07/26/19 14:00 07/30/19 06:14 Neurontin PO 100 mg Q8HR JOEL Administration Hydroxychloroquine Sulfate 200 mg 07/27/19 10:00 07/29/19 11:39 Plaquenil PO 200 mg QDAY JOEL Administration Hydroxyzine HCl 50 mg 07/27/19 10:00 07/29/19 11:39 Atarax PO 50 mg QDAY JOEL Administration Sodium Chloride 100 mls @ 999 mls/hr 07/26/19 12:30 Nacl 0.9% IV FAN PRN Hypotension Cefepime HCl 1 gm in 100 mls @ 200 mls/hr 07/27/19 10:00 07/29/19 11:40 Maxipime/Ns 1 Gm/100 Ml IV 200 mls/hr Q24HR JOEL Administration Protocol Levetiracetam 500 mg/ Dextrose 105 mls @ 400 mls/hr 07/30/19 11:04 IV 07/30/19 11:19 BID ONE Sodium Chloride 250 mls @ 999 mls/hr 07/30/19 11:14 Nacl 0.9% 250ml IV 07/30/19 11:29 ONCE ONE Labetalol HCl 300 mg 07/26/19 16:00 07/29/19 23:12 Normodyne PO 300 mg BID JOEL Administration Lorazepam 2 mg 07/30/19 11:02 Ativan IV Q1H PRN Seizures Losartan Potassium 50 mg 07/27/19 10:00 07/29/19 11:36 Cozaar PO 50 mg QDAY JOEL Administration Mirtazapine 7.5 mg 07/26/19 22:00 07/29/19 23:14 Remeron PO 7.5 mg QHS JOEL Administration Morphine Sulfate 1 mg 07/29/19 15:49 07/29/19 23:18 Morphine IV 1 mg Q8H PRN Administration Pain, Moderate (4-6) Mycophenolate Mofetil 500 mg 07/27/19 10:00 07/29/19 11:37 Cellcept PO 500 mg QDAY JOEL Administration Ondansetron HCl 4 mg 07/29/19 23:31 07/29/19 23:44 Zofran IV 4 mg Q6H PRN Administration Nausea And Vomiting Oxycodone/Acetaminophen 1 tab 07/29/19 15:49 Percocet 5/325 PO Q8H PRN Pain, Moderate (4-6) Prednisone 20 mg 07/27/19 10:00 07/29/19 11:38 Deltasone PO 20 mg QDAY JOEL Administration Sevelamer Carbonate 800 mg 07/26/19 16:30 07/30/19 09:22 Renvela PO 800 mg 0730,1630 JOEL Administration Nutrition/Malnutrition Assess - Dietary Evaluation Nutrition/Malnutrition Findings: Nutrition Notes Start: 07/26/19 14:40 Freq: Status: Active Protocol: Document 07/29/19 11:32 DW (Rec: 07/29/19 12:15 DW [id number]) Co-Sign 07/29/19 11:32 LP Nutrition Notes Initial or Follow up Reassessment Current Diagnosis CKD (stage V CKD),Hypertension Other Pertinent Diagnosis MRSA, lupus, anemia, wounds Current Diet Renal Labs/Tests BUN: 49 Cr: 7.3 Pertinent Medications Reviewed Height 5 ft 3 in Weight 78.29 kg Leonardo Body Weight (kg) 52.27 BMI 30.5 Subjective/Other Information Pt stated her appetite has not improved and has been eating <25% of her meals. Pt willing to try Ensure Clear Burn Absent Trauma Absent Minimum of two criteria No #2 Nutrition Diagnosis Increased nutrient needs ( specify in comment below) Diagnosis Progress(for reassessment Continues documentation) #1 Nutrition Diagnosis Inadequate oral intake Diagnosis Progress(for reassessment Continues documentation) Is patient on ventilator? No Is Patient Ambulatory and/or Out of Bed Yes REE-([facility]-ambulatory/OOB) [ 1913.639 [id number]] Calculation Used for Recommendations [facility] Additional Notes PRO: 78-98g/day (1.2-1.5g/kg/ day AdBW 65.28) Fluid: 1-1.5L/day Nutrition Intervention Change Diet Order: Continue current diet Add Supplement/Snack (indicate name/kcal Ensure Clear once daily /protein ) Provides kCal: 240 Provides Protein (gm) 8 Goal #1 Meet at least 75% of energy/ PRO needs via PO intakes Goal #2 Wound healing Anticipated Discharge Needs: Renal diet Follow-Up By: 08/02/19 Additional Comments FU PO/ONS tolerance
--- NOTE | 2019-07-30 11:48 | Consultation ---
History of Present Illness Consult date: 07/30/19 History of present illness: called and spoke to Dr. Paulino new onset of seizures the CT od the head is ordered but images not as yet available to review went over labs and agree with planned treatment will follow history of lupus is potentially very significant Past History Past Medical History: ESRD, hypertension, other (Lupus) Past Surgical History: Other (left leg fracture, AV fistula, peripheral n europathy) Social history: other (marijuana use). denies: smoking, alcohol abuse Family history: hypertension Medications and Allergies Allergies Allergy/AdvReac Type Severity Reaction Status Date / Time lactose AdvReac Unknown Verified 07/29/19 08:16 Home Medications Medication Instructions Recorded Confirmed Last Taken Type Gabapentin 300 mg PO 3XW 11/14/18 07/26/19 07/25/19 History ALBUTEROL NEB's [Proventil] 2.5 mg IH QID PRN 07/26/19 07/26/19 07/25/19 History Amitriptyline [Elavil] 25 mg PO QHS 07/26/19 07/26/19 07/25/19 History Amitriptyline [Elavil] 25 mg PO QHS 07/26/19 07/26/19 07/25/19 History Cyanocobalamin (Vitamin B-12) 1,000 mcg PO QDAY 07/26/19 07/26/19 07/25/19 History [Vitamin B-12] Folic Acid [Folvite] 1 mg PO QDAY 07/26/19 07/26/19 07/25/19 History Hydroxychloroquine [Plaquenil] 200 mg PO QDAY 07/26/19 07/26/19 07/25/19 History Ibuprofen [Motrin] 800 mg PO Q8HR PRN 07/26/19 07/26/19 07/25/19 History Labetalol HCl [Labetalol 300mg TAB] 300 mg PO Q12H 07/26/19 07/26/19 07/25/19 History Losartan [Cozaar] 50 mg PO QDAY 07/26/19 07/26/19 07/25/19 History Mirtazapine 7.5 mg PO QDAY 07/26/19 07/26/19 07/25/19 History Mycophenolate [Cellcept] 500 mg PO QDAY 07/26/19 07/26/19 07/25/19 History Pantoprazole [Protonix] 40 mg PO BID 07/26/19 07/26/19 07/25/19 History Pregabalin [Lyrica] 25 mg PO QDAY 07/26/19 07/26/19 07/25/19 History Sevelamer HCl [Renagel] 800 mg PO BIDWM 07/26/19 07/26/19 07/25/19 History hydrOXYzine HCL [Atarax] 50 mg PO QDAY 07/26/19 07/26/19 07/25/19 History predniSONE [Deltasone] 20 mg PO QDAY 07/26/19 07/26/19 07/25/19 History Active Meds: Active Medications Acetaminophen (Tylenol) 650 mg PO Q6H PRN PRN Reason: Pain, Mild (1-3) Albuterol (Proventil) 2.5 mg IH QID PRN PRN Reason: Wheezing Amitriptyline HCl (Elavil) 25 mg PO QHS [facility] Last Admin: 07/29/19 23:12 Dose: 25 mg Documented by: Cyanocobalamin (Vitamin B-12) 1,000 mcg PO QDAY [facility] Last Admin: 07/29/19 11:39 Dose: 1,000 mcg Documented by: Dextrose (D50w (25gm) Syringe) 25 ml IV PRN PRN PRN Reason: Hypoglycemia Last Admin: 07/26/19 12:32 Dose: 25 ml Documented by: Epoetin Mitch (Procrit) 10,000 unit IV FAN PRN PRN Reason: hemodialysis Last Admin: 07/28/19 18:19 Dose: 10,000 unit Documented by: Folic Acid (Folvite) 1 mg PO QDAY [facility] Last Admin: 07/29/19 11:38 Dose: 1 mg Documented by: Gabapentin (Neurontin) 100 mg PO Q8HR [facility] Last Admin: 07/30/19 06:14 Dose: 100 mg Documented by: Hydroxychloroquine Sulfate (Plaquenil) 200 mg PO QDAY [facility] Last Admin: 07/29/19 11:39 Dose: 200 mg Documented by: Hydroxyzine HCl (Atarax) 50 mg PO QDAY [facility] Last Admin: 07/29/19 11:39 Dose: 50 mg Documented by: Sodium Chloride (Nacl 0.9%) 100 mls @ 999 mls/hr IV FAN PRN PRN Reason: Hypotension Cefepime HCl (Maxipime/Ns 1 Gm/100 Ml) 1 gm in 100 mls @ 200 mls/hr IV Q24HR [facility]; Protocol Last Admin: 07/29/19 11:40 Dose: 200 mls/hr Documented by: Levetiracetam 500 mg/ Dextrose 105 mls @ 400 mls/hr IV BID [facility] Labetalol HCl (Normodyne) 300 mg PO BID [facility] Last Admin: 07/29/19 23:12 Dose: 300 mg Documented by: Lorazepam (Ativan) 2 mg IV Q1H PRN PRN Reason: Seizures Losartan Potassium (Cozaar) 50 mg PO QDAY [facility] Last Admin: 07/29/19 11:36 Dose: 50 mg Documented by: Mirtazapine (Remeron) 7.5 mg PO QHS [facility] Last Admin: 07/29/19 23:14 Dose: 7.5 mg Documented by: Morphine Sulfate (Morphine) 1 mg IV Q8H PRN PRN Reason: Pain, Moderate (4-6) Last Admin: 07/29/19 23:18 Dose: 1 mg Documented by: Mycophenolate Mofetil (Cellcept) 500 mg PO QDAY [facility] Last Admin: 07/29/19 11:37 Dose: 500 mg Documented by: Ondansetron HCl (Zofran) 4 mg IV Q6H PRN PRN Reason: Nausea And Vomiting Last Admin: 07/29/19 23:44 Dose: 4 mg Documented by: Oxycodone/Acetaminophen (Percocet 5/325) 1 tab PO Q8H PRN PRN Reason: Pain, Moderate (4-6) Prednisone (Deltasone) 20 mg PO QDAY [facility] Last Admin: 07/29/19 11:38 Dose: 20 mg Documented by: Sevelamer Carbonate (Renvela) 800 mg PO 0730,1630 [facility] Last Admin: 07/30/19 09:22 Dose: 800 mg Documented by: Physical Examination - Vital Signs Vital Signs: Vital Signs Temp Pulse Resp BP Pulse Ox 99.8 F H 118 H 20 127/79 99 07/26/19 04:00 07/26/19 04:00 07/26/19 04:00 07/26/19 04:00 07/26/19 04:00 Results - Laboratory Findings CBC and BMP: 07/30/19 02:40 07/30/19 02:40 Abnormal Lab Findings: Abnormal Labs 07/26/19 07/26/19 07/26/19 05:25 05:25 05:25 WBC 28.2 H RBC 3.24 L Hgb 6.9 L Hct 23.2 L MCV 72 L MCH 21 L RDW 36.5 H Seg Neuts % (Manual) 80.0 H Lymphocytes % (Manual) Seg Neutrophils # Man 22.6 H Lymphocytes # (Manual) Monocytes # (Manual) 1.4 H PT 16.6 H INR 1.38 H APTT 39.7 H Sodium 135 L Potassium 6.2 H* Chloride 95.7 L Carbon Dioxide 18 L BUN 71 H Creatinine 16.8 H Glucose POC Glucose AST ALT < 5 L Troponin T NT-Pro-B Natriuret Pep Albumin 3.3 L Triglycerides LDL Cholesterol Direct HDL Cholesterol Crossmatch 07/26/19 07/26/19 07/26/19 06:31 06:31 06:33 WBC RBC Hgb Hct MCV MCH RDW Seg Neuts % (Manual) Lymphocytes % (Manual) Seg Neutrophils # Man Lymphocytes # (Manual) Monocytes # (Manual) PT 16.7 H INR 1.39 H APTT 41.1 H Sodium Potassium Chloride Carbon Dioxide BUN Creatinine Glucose POC Glucose AST < 5 L ALT < 5 L Troponin T 0.072 H NT-Pro-B Natriuret Pep 52916 H Albumin 3.2 L Triglycerides 170 H LDL Cholesterol Direct 30 L HDL Cholesterol 25 L Crossmatch See Detail 07/26/19 07/26/19 07/26/19 07:25 07:59 09:55 WBC RBC Hgb Hct MCV MCH RDW Seg Neuts % (Manual) Lymphocytes % (Manual) Seg Neutrophils # Man Lymphocytes # (Manual) Monocytes # (Manual) PT INR APTT Sodium Potassium Chloride Carbon Dioxide BUN Creatinine Glucose POC Glucose 54 L 150 H 41 L AST ALT Troponin T NT-Pro-B Natriuret Pep Albumin Triglycerides LDL Cholesterol Direct HDL Cholesterol Crossmatch 07/26/19 07/26/19 07/26/19 10:33 10:53 11:31 WBC RBC Hgb Hct MCV MCH RDW Seg Neuts % (Manual) Lymphocytes % (Manual) Seg Neutrophils # Man Lymphocytes # (Manual) Monocytes # (Manual) PT INR APTT Sodium 135 L Potassium 6.1 H* Chloride 94.1 L Carbon Dioxide 19 L BUN 71 H Creatinine 16.4 H Glucose POC Glucose 66 L 51 L AST ALT Troponin T NT-Pro-B Natriuret Pep Albumin Triglycerides LDL Cholesterol Direct HDL Cholesterol Crossmatch 07/26/19 07/26/19 07/26/19 12:18 13:04 20:51 WBC RBC Hgb Hct MCV MCH RDW Seg Neuts % (Manual) Lymphocytes % (Manual) Seg Neutrophils # Man Lymphocytes # (Manual) Monocytes # (Manual) PT INR APTT Sodium Potassium Chloride Carbon Dioxide BUN Creatinine Glucose POC Glucose < 40 L 162 H 67 L AST ALT Troponin T NT-Pro-B Natriuret Pep Albumin Triglycerides LDL Cholesterol Direct HDL Cholesterol Crossmatch 07/28/19 07/28/19 07/28/19 07:01 07:01 15:23 WBC 29.4 H RBC Hgb 9.0 L Hct 28.6 L MCV 74 L MCH 23 L RDW 30.9 H Seg Neuts % (Manual) 92.0 H Lymphocytes % (Manual) 3.0 L Seg Neutrophils # Man 27.0 H Lymphocytes # (Manual) 0.9 L Monocytes # (Manual) 0.9 H PT INR APTT Sodium Potassium 5.9 H 5.2 H Chloride 94.0 L 94.7 L Carbon Dioxide BUN 55 H 64 H Creatinine 9.5 H 9.8 H Glucose 105 H POC Glucose AST ALT Troponin T NT-Pro-B Natriuret Pep Albumin Triglycerides LDL Cholesterol Direct HDL Cholesterol Crossmatch 07/29/19 07/29/19 07/30/19 10:02 10:02 02:40 WBC 13.4 H 19.2 H RBC Hgb 9.4 L 8.5 L Hct 30.2 L 27.8 L MCV 75 L 75 L MCH 24 L 23 L RDW 30.9 H 31.3 H Seg Neuts % (Manual) 91.0 H 83.0 H Lymphocytes % (Manual) 7.0 L 10.0 L Seg Neutrophils # Man 12.2 H 15.9 H Lymphocytes # (Manual) 0.9 L Monocytes # (Manual) 1.3 H PT INR APTT Sodium Potassium Chloride 94.4 L Carbon Dioxide BUN 49 H Creatinine 7.3 H Glucose POC Glucose AST ALT Troponin T NT-Pro-B Natriuret Pep Albumin Triglycerides LDL Cholesterol Direct HDL Cholesterol Crossmatch 07/30/19 02:40 WBC RBC Hgb Hct MCV MCH RDW Seg Neuts % (Manual) Lymphocytes % (Manual) Seg Neutrophils # Man Lymphocytes # (Manual) Monocytes # (Manual) PT INR APTT Sodium Potassium 6.0 H D Chloride 97.0 L Carbon Dioxide BUN 67 H Creatinine 8.6 H Glucose 105 H POC Glucose AST ALT Troponin T NT-Pro-B Natriuret Pep Albumin Triglycerides LDL Cholesterol Direct HDL Cholesterol Crossmatch
[2019-07-30] MEDS: MAXIPIME/NS 1 GM/100 ML 1 GM/100 ML BAG IV SCH (12:00)
[2019-07-30] MEDS: ATARAX PO SCH (13:14)
[2019-07-30] MEDS: COZAAR PO SCH (13:15)
[2019-07-30] MEDS: CELLCEPT PO SCH (13:15)
[2019-07-30] MEDS: PLAQUENIL PO SCH (13:19)
[2019-07-30] MEDS: NORMODYNE PO SCH (13:19)
[2019-07-30] MEDS: FOLVITE PO SCH (13:19)
[2019-07-30] MEDS: DELTASONE PO SCH (13:19)
[2019-07-30] MEDS: VITAMIN B-12 PO SCH (13:20)
[2019-07-30] MEDS: KEPPRA 500 MG in D5W 100 ML IV SCH (13:46)
--- NOTE | 2019-07-30 14:42 | Progress Note ---
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 Objective - Vital Sign Vital Signs - 12hr 07/30/19 07/30/19 05:24 11:38 Temperature 97.9 F 98.9 F Pulse Rate 103 H Respiratory 20 18 Rate Blood Pressure 124/87 96/56 O2 Sat by Pulse 99 Oximetry - Laboratory Findings CBC and BMP: 07/30/19 02:40 07/30/19 02:40 Abnormal Lab Findings: Abnormal Labs 07/26/19 07/26/19 07/26/19 05:25 05:25 05:25 WBC 28.2 H RBC 3.24 L Hgb 6.9 L Hct 23.2 L MCV 72 L MCH 21 L RDW 36.5 H Seg Neuts % (Manual) 80.0 H Lymphocytes % (Manual) Seg Neutrophils # Man 22.6 H Lymphocytes # (Manual) Monocytes # (Manual) 1.4 H PT 16.6 H INR 1.38 H APTT 39.7 H Sodium 135 L Potassium 6.2 H* Chloride 95.7 L Carbon Dioxide 18 L BUN 71 H Creatinine 16.8 H Glucose POC Glucose AST ALT < 5 L Troponin T NT-Pro-B Natriuret Pep Albumin 3.3 L Triglycerides LDL Cholesterol Direct HDL Cholesterol Crossmatch 07/26/19 07/26/19 07/26/19 06:31 06:31 06:33 WBC RBC Hgb Hct MCV MCH RDW Seg Neuts % (Manual) Lymphocytes % (Manual) Seg Neutrophils # Man Lymphocytes # (Manual) Monocytes # (Manual) PT 16.7 H INR 1.39 H APTT 41.1 H Sodium Potassium Chloride Carbon Dioxide BUN Creatinine Glucose POC Glucose AST < 5 L ALT < 5 L Troponin T 0.072 H NT-Pro-B Natriuret Pep 26030 H Albumin 3.2 L Triglycerides 170 H LDL Cholesterol Direct 30 L HDL Cholesterol 25 L Crossmatch See Detail 07/26/19 07/26/19 07/26/19 07:25 07:59 09:55 WBC RBC Hgb Hct MCV MCH RDW Seg Neuts % (Manual) Lymphocytes % (Manual) Seg Neutrophils # Man Lymphocytes # (Manual) Monocytes # (Manual) PT INR APTT Sodium Potassium Chloride Carbon Dioxide BUN Creatinine Glucose POC Glucose 54 L 150 H 41 L AST ALT Troponin T NT-Pro-B Natriuret Pep Albumin Triglycerides LDL Cholesterol Direct HDL Cholesterol Crossmatch 07/26/19 07/26/19 07/26/19 10:33 10:53 11:31 WBC RBC Hgb Hct MCV MCH RDW Seg Neuts % (Manual) Lymphocytes % (Manual) Seg Neutrophils # Man Lymphocytes # (Manual) Monocytes # (Manual) PT INR APTT Sodium 135 L Potassium 6.1 H* Chloride 94.1 L Carbon Dioxide 19 L BUN 71 H Creatinine 16.4 H Glucose POC Glucose 66 L 51 L AST ALT Troponin T NT-Pro-B Natriuret Pep Albumin Triglycerides LDL Cholesterol Direct HDL Cholesterol Crossmatch 07/26/19 07/26/19 07/26/19 12:18 13:04 20:51 WBC RBC Hgb Hct MCV MCH RDW Seg Neuts % (Manual) Lymphocytes % (Manual) Seg Neutrophils # Man Lymphocytes # (Manual) Monocytes # (Manual) PT INR APTT Sodium Potassium Chloride Carbon Dioxide BUN Creatinine Glucose POC Glucose < 40 L 162 H 67 L AST ALT Troponin T NT-Pro-B Natriuret Pep Albumin Triglycerides LDL Cholesterol Direct HDL Cholesterol Crossmatch 07/28/19 07/28/19 07/28/19 07:01 07:01 15:23 WBC 29.4 H RBC Hgb 9.0 L Hct 28.6 L MCV 74 L MCH 23 L RDW 30.9 H Seg Neuts % (Manual) 92.0 H Lymphocytes % (Manual) 3.0 L Seg Neutrophils # Man 27.0 H Lymphocytes # (Manual) 0.9 L Monocytes # (Manual) 0.9 H PT INR APTT Sodium Potassium 5.9 H 5.2 H Chloride 94.0 L 94.7 L Carbon Dioxide BUN 55 H 64 H Creatinine 9.5 H 9.8 H Glucose 105 H POC Glucose AST ALT Troponin T NT-Pro-B Natriuret Pep Albumin Triglycerides LDL Cholesterol Direct HDL Cholesterol Crossmatch 07/29/19 07/29/19 07/30/19 10:02 10:02 02:40 WBC 13.4 H 19.2 H RBC Hgb 9.4 L 8.5 L Hct 30.2 L 27.8 L MCV 75 L 75 L MCH 24 L 23 L RDW 30.9 H 31.3 H Seg Neuts % (Manual) 91.0 H 83.0 H Lymphocytes % (Manual) 7.0 L 10.0 L Seg Neutrophils # Man 12.2 H 15.9 H Lymphocytes # (Manual) 0.9 L Monocytes # (Manual) 1.3 H PT INR APTT Sodium Potassium Chloride 94.4 L Carbon Dioxide BUN 49 H Creatinine 7.3 H Glucose POC Glucose AST ALT Troponin T NT-Pro-B Natriuret Pep Albumin Triglycerides LDL Cholesterol Direct HDL Cholesterol Crossmatch 07/30/19 02:40 WBC RBC Hgb Hct MCV MCH RDW Seg Neuts % (Manual) Lymphocytes % (Manual) Seg Neutrophils # Man Lymphocytes # (Manual) Monocytes # (Manual) PT INR APTT Sodium Potassium 6.0 H D Chloride 97.0 L Carbon Dioxide BUN 67 H Creatinine 8.6 H Glucose 105 H POC Glucose AST ALT Troponin T NT-Pro-B Natriuret Pep Albumin Triglycerides LDL Cholesterol Direct HDL Cholesterol Crossmatch
--- NOTE | 2019-07-30 15:58 | XRay Report ---
BILATERAL FEET 2 VIEWS BILATERAL ANKLES 2 VIEWS INDICATION / CLINICAL INFORMATION: Pain and swelling in feet and ankles. COMPARISON: None available. FINDINGS: BONES and JOINT(S): No acute fracture or subluxation. No significant arthritis. SOFT TISSUES: No significant abnormality. ADDITIONAL FINDINGS: None. IMPRESSION: No acute abnormality of the feet or ankles. Signer Name: Familia Stovall MD Signed: 07/30/2019 3:54 PM Workstation Name: [id number]
[2019-07-30] MEDS: PROCRIT IV PRN (19:19)
--- NOTE | 2019-07-30 19:39 | Event Note ---
Date: 07/30/19 I called the patient's sister/next of kin Mariya Painting at [phone] And informed patient's condition, this mornings events ,new-onset seizures Patient's lethargy and altered level of consciousness, treatment plan and prognosis. I addressed all her questions and concerns, Ms. Meraz verbalized understanding
--- NOTE | 2019-07-30 20:55 | Cat Scan Report ---
CT HEAD WITHOUT CONTRAST INDICATION : New onset seizures. Altered mental status. TECHNIQUE: Axial, coronal and sagittal CT imaging was performed from the skull apex through the skul l base without contrast. All CT scans at this location are performed using CT dose reduction for ALA RA by means of automated exposure control. COMPARISON: None available. FINDINGS: Motion artifact limits this exam. PARENCHYMA: No mass, midline shift, hemorrhage, extraaxial collection or acute territorial infarctio n. VENTRICLES: Symmetric and normal in size. SOFT TISSUES: Soft tissues including the orbits appear normal. BONES: No acute osseous abnormality. SINUSES: The left maxillary sinus is nearly completely opacified. The remaining sinuses and mastoid a ir cells are clear. ADDITIONAL FINDINGS: None. IMPRESSION: 1. No acute abnormality. 2. Left maxillary sinusitis. Signer Name: Familia Stovall MD Signed: 07/30/2019 8:51 PM Workstation Name: [id number]
[2019-07-31] MEDS: KEPPRA 500 MG in D5W 100 ML IV SCH ×3 (00:04→22:58)
[2019-07-31] MEDS: APRESOLINE IV PRN (00:05)
[2019-07-31] MEDS: ELAVIL PO SCH (00:15)
[2019-07-31] MEDS: NEURONTIN PO SCH ×3 (00:16→15:21)
[2019-07-31] MEDS: NORMODYNE PO SCH ×2 (00:16→13:43)
[2019-07-31 00:17] LABS: Calcium 8.6 mg/dL (8.4-10.2)
[2019-07-31] MEDS: REMERON PO SCH (00:17)
[2019-07-31 06:00] LABS: Hematocrit 26.8 % (30.3-42.9); Hemoglobin 8.4 gm/dl (10.1-14.3); Mean Corpuscular HGB Conc 32 % (30-34); Mean Corpuscular Volume 78 fl (79-97); Red Blood Count 3.45 M/mm3 (3.65-5.03)
[2019-07-31 06:02] LABS: Platelet Count 186 K/mm3 (140-440); Red Cell Distribution Width 27.3 % (13.2-15.2)
[2019-07-31 06:10] LABS: Calcium 8.9 mg/dL (8.4-10.2)
[2019-07-31 06:42] LABS: Basophils % (Manual) 0 % (0.0-1.8); Eosinophils % (Manual) 0 % (0.0-4.3); Total Cells Counted 100
[2019-07-31 06:43] LABS: Anisocytosis 1+; Hypochromasia 2+
--- NOTE | 2019-07-31 08:24 | Progress Note ---
Assessment and Plan Assessment and plan: --New onset seizures : On Keppra, Ativan as needed Seizure precautions, neurology following Follow EEG, CT head negative for acute abnormality Consider MRI brain if no improvement, No Driving --Metabolic encephalopathy; secondary to seizures CT scan negative for acute abnormalities, consider MRI if no improvement --Moderate malnutrition/hypoalbuminemia; Dobbhoff placement Tube feeding per protocol --Hypotension; s/p fluid bolus 250 ml NS, improved If no improvement, consider vasopressors and transferred to ICU --Sepsis; leukocytosis, fever, tachycardia Blood and urine cultures, empiric antibiotics IV fluids and supportive care, ID consult if needed --Persistent leukocytosis; secondary to sepsis Continue cefepime, follow cultures, consider ID consult --Wound Cultures Escherichia coli, on cefepime --Hyperkalemia; resolved secondary to end-stage renal disease Hemodialysis per schedule --End-stage renal disease; on hemodialysis Nephrology consultation, HD per schedule --Hypertension; moderate control Resume home antihypertensives and when necessary medications --History of lupus; resume home medications Supportive care --DVT prophylaxis; Lovenox renal dose Plan of care reviewed with the patient's nurse D/W Family members yesterday over the phone, update them as needed Disposition; continue inpatient management Discharge home when medically stable History Interval history: Patient seen and examined medical records reviewed No new episodes of seizures overnight Patient is opening eyes, noncommunicative, mild distress Vital signs reviewed Hospitalist Physical - Constitutional Vitals: Temp Pulse Resp BP Pulse Ox 98.7 F 115 H 20 116/69 86 07/31/19 04:07/31/19 04:07/31/19 04:07/31/19 04:07/31/19 04:29 General appearance: Present: mild distress, well-nourished, obese, other (confused) - EENT Eyes: Present: PERRL, EOM intact - Neck Neck: Present: supple, normal ROM - Respiratory Respiratory effort: normal - Cardiovascular Rhythm: regular Heart Sounds: Present: S1 & S2 - Extremities Extremities: no ischemia, No edema - Abdominal General gastrointestinal: soft, non-tender, non-distended, normal bowel sounds - Integumentary Integumentary: Present: clear, warm - Psychiatric Psychiatric: other (lethargic) - Neurologic Neurologic: moves all extremities Results - Labs CBC & Chem 7: 07/31/19 04:39 07/31/19 04:39 Labs: Laboratory Last Values WBC 29.6 K/mm3 (4.5-11.0) H 07/31/19 04:39 RBC 3.45 M/mm3 (3.65-5.03) L 07/31/19 04:39 Hgb 8.4 gm/dl (10.1-14.3) L 07/31/19 04:39 Hct 26.8 % (30.3-42.9) L 07/31/19 04:39 MCV 78 fl (79-97) L 07/31/19 04:39 MCH 25 pg (28-32) L 07/31/19 04:39 MCHC 32 % (30-34) 07/31/19 04:39 RDW 27.3 % (13.2-15.2) H 07/31/19 04:39 Plt Count 186 K/mm3 (140-440) 07/31/19 04:39 Add Manual Diff Complete 07/31/19 04:39 Total Counted 100 07/31/19 04:39 Seg Neuts % (Manual) 83.0 % (40.0-70.0) H 07/31/19 04:39 0 % 07/31/19 04:39 10.0 % (13.4-35.0) L 07/31/19 04:39 Reactive Lymphs % (Man) 0 % 07/31/19 04:39 7.0 % (0.0-7.3) 07/31/19 04:39 0 % (0.0-4.3) 07/31/19 04:39 0 % (0.0-1.8) 07/31/19 04:39 0 % 07/31/19 04:39 0 % 07/31/19 04:39 0 % 07/31/19 04:39 0 % 07/31/19 04:39 Nucleated RBC % Not Reportable 07/31/19 04:39 Seg Neutrophils # Man 24.6 K/mm3 (1.8-7.7) H 07/31/19 04:39 Band Neutrophils # 0.0 K/mm3 07/31/19 04:39 3.0 K/mm3 (1.2-5.4) 07/31/19 04:39 Abs React Lymphs (Man) 0.0 K/mm3 07/31/19 04:39 2.1 K/mm3 (0.0-0.8) H 07/31/19 04:39 0.0 K/mm3 (0.0-0.4) 07/31/19 04:39 0.0 K/mm3 (0.0-0.1) 07/31/19 04:39 0.0 K/mm3 07/31/19 04:39 0.0 K/mm3 07/31/19 04:39 0.0 K/mm3 07/31/19 04:39 Blast Cells # 0.0 K/mm3 07/31/19 04:39 WBC Morphology Not Reportable 07/31/19 04:39 Hypersegmented Neuts Not Reportable 07/31/19 04:39 Hyposegmented Neuts Not Reportable 07/31/19 04:39 Hypogranular Neuts Not Reportable 07/31/19 04:39 Not Reportable 07/31/19 04:39 Not Reportable 07/31/19 04:39 Not Reportable 07/31/19 04:39 Not Reportable 07/31/19 04:39 Not Reportable 07/31/19 04:39 Not Reportable 07/31/19 04:39 Not Reportable 07/31/19 04:39 Not Reportable 07/31/19 04:39 Plt Clumps, EDTA Not Reportable 07/31/19 04:39 Not Reportable 07/31/19 04:39 Not Reportable 07/31/19 04:39 Not Reportable 07/31/19 04:39 Plt Morphology Comment Not Reportable 07/31/19 04:39 RBC Morphology Not Reportable 07/31/19 04:39 Dimorphic RBCs Not Reportable 07/31/19 04:39 Not Reportable 07/31/19 04:39 2+ 07/31/19 04:39 Not Reportable 07/31/19 04:39 1+ 07/31/19 04:39 Not Reportable 07/31/19 04:39 Not Reportable 07/31/19 04:39 Not Reportable 07/31/19 04:39 Not Reportable 07/31/19 04:39 Not Reportable 07/31/19 04:39 Not Reportable 07/31/19 04:39 Not Reportable 07/31/19 04:39 Not Reportable 07/31/19 04:39 Not Reportable 07/31/19 04:39 Not Reportable 07/31/19 04:39 Not Reportable 07/31/19 04:39 Not Reportable 07/31/19 04:39 Not Reportable 07/31/19 04:39 Not Reportable 07/31/19 04:39 Not Reportable 07/31/19 04:39 Acanthocytes (Spur) Not Reportable 07/31/19 04:39 Rouleaux Not Reportable 07/31/19 04:39 Not Reportable 07/31/19 04:39 Not Reportable 07/31/19 04:39 Not Reportable 07/31/19 04:39 ESR 78 mm/Hr (0-20) 07/26/19 05:25 Not Reportable 07/31/19 04:39 Hem Pathologist Commnt No 07/31/19 04:39 PT 16.7 Sec. (12.2-14.9) H 07/26/19 06:31 INR 1.39 (0.87-1.13) H 07/26/19 06:31 APTT 41.1 Sec. (24.2-36.6) H 07/26/19 06:31 Sodium 144 mmol/L (137-145) 07/31/19 04:39 Potassium 5.0 mmol/L (3.6-5.0) 07/31/19 04:39 Chloride 99.1 mmol/L (98-107) 07/31/19 04:39 Carbon Dioxide 30 mmol/L (22-30) 07/31/19 04:39 20 mmol/L 07/31/19 04:39 BUN 39 mg/dL (7-17) H 07/31/19 04:39 5.2 mg/dL (0.7-1.2) H 07/31/19 04:39 Estimated GFR 12 ml/min 07/31/19 04:39 8 % 07/31/19 04:39 Glucose 82 mg/dL (65-100) 07/31/19 04:39 POC Glucose 99 (70-105) 07/30/19 11:06 Lactic Acid 1.10 mmol/L (0.7-2.0) 07/26/19 06:31 Calcium 8.9 mg/dL (8.4-10.2) 07/31/19 04:39 Magnesium 2.00 mg/dL (1.7-2.3) 07/30/19 23:32 0.30 mg/dL (0.1-1.2) 07/26/19 06:31 < 0.2 mg/dL (0-0.2) 07/26/19 06:31 0.1 mg/dL 07/26/19 06:31 AST < 5 units/L (5-40) L 07/26/19 06:31 ALT < 5 units/L (7-56) L 07/26/19 06:31 70 units/L (35-129) 07/26/19 06:31 43 units/L (30-135) 07/26/19 05:25 0.072 ng/mL (0.00-0.029) H 07/26/19 06:31 NT-Pro-B Natriuret Pep 99384 pg/mL (0-450) H 07/26/19 06:31 6.4 g/dL (6.3-8.2) 07/26/19 06:31 3.2 g/dL (3.9-5) L 07/26/19 06:31 1.0 % 07/26/19 06:31 Triglycerides 170 mg/dL (2-149) H 07/26/19 06:31 Cholesterol 91 mg/dL (50-199) 07/26/19 06:31 30 mg/dL (50-130) L 07/26/19 06:31 25 mg/dL (40-59) L 07/26/19 06:31 3.64 % 07/26/19 06:31 HCG, Qual Negative (Negative) 07/30/19 02:40 HCG, Quant < 2 mIU/mL (0-4) 07/26/19 05:25 Random Vancomycin 14.9 ug/mL (0-40.0) 07/28/19 07:01 RPR Nonreactive (Nonreactive) 07/26/19 05:25 Hepatitis A IgM Ab Non-reactive (NonReactive) 07/26/19 10:53 Hep Bs Antigen Non-reactive (Negative) 07/26/19 10:53 Hep B Core IgM Ab Non-reactive (NonReactive) 07/26/19 10:53 Non-reactive (NonReactive) 07/26/19 10:53 Blood Type A POSITIVE 07/26/19 06:33 Antibody Screen Negative 07/26/19 06:33 Crossmatch See Detail 07/26/19 06:33 Active Medications - Current Medications Current Medications: Generic Name Dose Route Start Last Admin Trade Name Freq PRN Reason Stop Dose Admin Acetaminophen 650 mg 07/26/19 11:08 Tylenol PO Q6H PRN Pain, Mild (1-3) Albuterol 2.5 mg 07/26/19 15:39 Proventil IH QID PRN Wheezing Amitriptyline HCl 25 mg 07/26/19 22:00 07/31/19 00:15 Elavil PO Not Given QHS JOEL Cyanocobalamin 1,000 mcg 07/27/19 10:00 07/30/19 13:20 Vitamin B-12 PO Not Given QDAY JOEL Dextrose 25 ml 07/26/19 11:06 07/26/19 12:32 D50w (25gm) Syringe IV 25 ml PRN PRN Administration Hypoglycemia Epoetin Mitch 10,000 unit 07/26/19 10:10 07/30/19 19:19 Procrit IV 10,000 unit FAN PRN Administration hemodialysis Folic Acid 1 mg 07/27/19 10:00 07/30/19 13:19 Folvite PO Not Given QDAY [facility] Gabapentin 100 mg 07/26/19 14:00 07/31/19 06:14 Neurontin PO Not Given Q8HR [facility] Hydralazine HCl 10 mg 07/30/19 20:16 07/31/19 00:05 Apresoline IV 10 mg Q4HR PRN Administration Blood Pressure Hydroxychloroquine Sulfate 200 mg 07/27/19 10:00 07/30/19 13:19 Plaquenil PO Not Given QDAY [facility] Hydroxyzine HCl 50 mg 07/27/19 10:00 07/30/19 13:14 Atarax PO Not Given QDAY [facility] Sodium Chloride 100 mls @ 999 mls/hr 07/26/19 12:30 Nacl 0.9% IV FAN PRN Hypotension Cefepime HCl 1 gm in 100 mls @ 200 mls/hr 07/27/19 10:00 07/30/19 12:00 Maxipime/Ns 1 Gm/100 Ml IV 200 mls/hr Q24HR JOEL Administration Protocol Levetiracetam 500 mg/ Dextrose 105 mls @ 400 mls/hr 07/30/19 12:00 07/31/19 00:04 IV 400 mls/hr BID JOEL Administration Labetalol HCl 300 mg 07/26/19 16:00 07/31/19 00:16 Normodyne PO Not Given BID [facility] Lorazepam 2 mg 07/30/19 11:02 Ativan IV Q1H PRN Seizures Losartan Potassium 50 mg 07/27/19 10:00 07/30/19 13:15 Cozaar PO Not Given QDAY [facility] Mirtazapine 7.5 mg 07/26/19 22:00 07/31/19 00:17 Remeron PO Not Given QHS [facility] Morphine Sulfate 1 mg 07/29/19 15:49 07/29/19 23:18 Morphine IV 1 mg Q8H PRN Administration Pain, Moderate (4-6) Mycophenolate Mofetil 500 mg 07/27/19 10:00 07/30/19 13:15 Cellcept PO Not Given QDAY [facility] Ondansetron HCl 4 mg 07/29/19 23:31 07/29/19 23:44 Zofran IV 4 mg Q6H PRN Administration Nausea And Vomiting Oxycodone/Acetaminophen 1 tab 07/29/19 15:49 Percocet 5/325 PO Q8H PRN Pain, Moderate (4-6) Prednisone 20 mg 07/27/19 10:00 07/30/19 13:19 Deltasone PO Not Given QDAY [facility] Sevelamer Carbonate 800 mg 07/26/19 16:30 07/30/19 18:09 Renvela PO Not Given 0730,1630 [facility] Nutrition/Malnutrition Assess - Dietary Evaluation Nutrition/Malnutrition Findings: Nutrition Notes Start: 07/26/19 1 4:40 Freq: Status: Active Protocol: Document 07/29/19 11:32 DW (Rec: 07/29/19 12:15 DW [id number]) Co-Sign 07/29/19 11:32 LP Nutrition Notes Initial or Follow up Reassessment Current Diagnosis CKD (stage V CKD),Hypertension Other Pertinent Diagnosis MRSA, lupus, anemia, wounds Current Diet Renal Labs/Tests BUN: 49 Cr: 7.3 Pertinent Medications Reviewed Height 5 ft 3 in Weight 78.29 kg [place] Body Weight (kg) 52.27 BMI 30.5 Subjective/Other Information Pt stated her appetite has not improved and has been eating <25% of her meals. Pt willing to try Ensure Clear Burn Absent Trauma Absent Minimum of two criteria No #2 Nutrition Diagnosis Increased nutrient needs ( specify in comment below) Diagnosis Progress(for reassessment Continues documentation) #1 Nutrition Diagnosis Inadequate oral intake Diagnosis Progress(for reassessment Continues documentation) Is patient on ventilator? No Is Patient Ambulatory and/or Out of Bed Yes REE-([facility]-ambulatory/OOB) [ 1913.639 [id number]] Calculation Used for Recommendations [facility] Additional Notes PRO: 78-98g/day (1.2-1.5g/kg/ day AdBW 65.28) Fluid: 1-1.5L/day Nutrition Intervention Change Diet Order: Continue current diet Add Supplement/Snack (indicate name/kcal Ensure Clear once daily /protein ) Provides kCal: 240 Provides Protein (gm) 8 Goal #1 Meet at least 75% of energy/ PRO needs via PO intakes Goal #2 Wound healing Anticipated Discharge Needs: Renal diet Follow-Up By: 08/02/19 Additional Comments FU PO/ONS tolerance
[2019-07-31] MEDS: RENVELA PO SCH ×2 (08:25→20:43)
[2019-07-31] MEDS ORDERED: PANCREAZE DR 10,500 UNIT FEEDTUBE PRN (08:26)
[2019-07-31] MEDS ORDERED: SIMPLE SYRUP FEEDTUBE PRN (08:26)
[2019-07-31] MEDS ORDERED: SODIUM BICARBONATE FEEDTUBE PRN (08:26)
--- NOTE | 2019-07-31 09:09 | Progress Note ---
Subjective Date of service: 07/31/19 Principal diagnosis: anemia, dizziness Interval history: personally went over the CT of the brain and it is basically normal and the left maxillary sinus is likely a minor issue there is no arir fluid level and only mild mucousal thickening clearly this minor issue and no cause of the seizures wh[facility]aker EEG and this next week will check MRI seizures can be drug related/ renal/ lupus based... actually do not see firm evidence of lupus cerebritis since renal problems can mask this Thanks Objective - Vital Sign Vital Signs - 12hr 07/30/19 07/30/19 07/30/19 21:39 22:13 22:14 Temperature 97.7 F Pulse Rate 116 H Pulse Rate [ 111 H Anterior Bilateral Throughout] Respiratory 24 Rate Respiratory 20 Rate [Anterior Bilateral Throughout] Blood Pressure 112/75 O2 Sat by Pulse 94 98 Oximetry 07/31/19 07/31/19 07/31/19 00:05 00:16 04:29 Temperature 98.7 F Pulse Rate 109 H 109 H 115 H Pulse Rate [ Anterior Bilateral Throughout] Respiratory 20 Rate Respiratory Rate [Anterior Bilateral Throughout] Blood Pressure 145/107 145/107 116/69 O2 Sat by Pulse 86 Oximetry - Laboratory Findings CBC and BMP: 07/31/19 04:39 07/31/19 04:39 Abnormal Lab Findings: Abnormal Labs 07/26/19 07/26/19 07/26/19 05:25 05:25 05:25 WBC 28.2 H RBC 3.24 L Hgb 6.9 L Hct 23.2 L MCV 72 L MCH 21 L RDW 36.5 H Seg Neuts % (Manual) 80.0 H Lymphocytes % (Manual) Seg Neutrophils # Man 22.6 H Lymphocytes # (Manual) Monocytes # (Manual) 1.4 H PT 16.6 H INR 1.38 H APTT 39.7 H Sodium 135 L Potassium 6.2 H* Chloride 95.7 L Carbon Dioxide 18 L BUN 71 H Creatinine 16.8 H Glucose POC Glucose AST ALT < 5 L Troponin T NT-Pro-B Natriuret Pep Albumin 3.3 L Triglycerides LDL Cholesterol Direct HDL Cholesterol Crossmatch 07/26/19 07/26/19 07/26/19 06:31 06:31 06:33 WBC RBC Hgb Hct MCV MCH RDW Seg Neuts % (Manual) Lymphocytes % (Manual) Seg Neutrophils # Man Lymphocytes # (Manual) Monocytes # (Manual) PT 16.7 H INR 1.39 H APTT 41.1 H Sodium Potassium Chloride Carbon Dioxide BUN Creatinine Glucose POC Glucose AST < 5 L ALT < 5 L Troponin T 0.072 H NT-Pro-B Natriuret Pep 09299 H Albumin 3.2 L Triglycerides 170 H LDL Cholesterol Direct 30 L HDL Cholesterol 25 L Crossmatch See Detail 07/26/19 07/26/19 07/26/19 07:25 07:59 09:55 WBC RBC Hgb Hct MCV MCH RDW Seg Neuts % (Manual) Lymphocytes % (Manual) Seg Neutrophils # Man Lymphocytes # (Manual) Monocytes # (Manual) PT INR APTT Sodium Potassium Chloride Carbon Dioxide BUN Creatinine Glucose POC Glucose 54 L 150 H 41 L AST ALT Troponin T NT-Pro-B Natriuret Pep Albumin Triglycerides LDL Cholesterol Direct HDL Cholesterol Crossmatch 07/26/19 07/26/19 07/26/19 10:33 10:53 11:31 WBC RBC Hgb Hct MCV MCH RDW Seg Neuts % (Manual) Lymphocytes % (Manual) Seg Neutrophils # Man Lymphocytes # (Manual) Monocytes # (Manual) PT INR APTT Sodium 135 L Potassium 6.1 H* Chloride 94.1 L Carbon Dioxide 19 L BUN 71 H Creatinine 16.4 H Glucose POC Glucose 66 L 51 L AST ALT Troponin T NT-Pro-B Natriuret Pep Albumin Triglycerides LDL Cholesterol Direct HDL Cholesterol Crossmatch 07/26/19 07/26/19 07/26/19 12:18 13:04 20:51 WBC RBC Hgb Hct MCV MCH RDW Seg Neuts % (Manual) Lymphocytes % (Manual) Seg Neutrophils # Man Lymphocytes # (Manual) Monocytes # (Manual) PT INR APTT Sodium Potassium Chloride Carbon Dioxide BUN Creatinine Glucose POC Glucose < 40 L 162 H 67 L AST ALT Troponin T NT-Pro-B Natriuret Pep Albumin Triglycerides LDL Cholesterol Direct HDL Cholesterol Crossmatch 07/28/19 07/28/19 07/28/19 07:01 07:01 15:23 WBC 29.4 H RBC Hgb 9.0 L Hct 28.6 L MCV 74 L MCH 23 L RDW 30.9 H Seg Neuts % (Manual) 92.0 H Lymphocytes % (Manual) 3.0 L Seg Neutrophils # Man 27.0 H Lymphocytes # (Manual) 0.9 L Monocytes # (Manual) 0.9 H PT INR APTT Sodium Potassium 5.9 H 5.2 H Chloride 94.0 L 94.7 L Carbon Dioxide BUN 55 H 64 H Creatinine 9.5 H 9.8 H Glucose 105 H POC Glucose AST ALT Troponin T NT-Pro-B Natriuret Pep Albumin Triglycerides LDL Cholesterol Direct HDL Cholesterol Crossmatch 07/29/19 07/29/19 07/30/19 10:02 10:02 02:40 WBC 13.4 H 19.2 H RBC Hgb 9.4 L 8.5 L Hct 30.2 L 27.8 L MCV 75 L 75 L MCH 24 L 23 L RDW 30.9 H 31.3 H Seg Neuts % (Manual) 91.0 H 83.0 H Lymphocytes % (Manual) 7.0 L 10.0 L Seg Neutrophils # Man 12.2 H 15.9 H Lymphocytes # (Manual) 0.9 L Monocytes # (Manual) 1.3 H PT INR APTT Sodium Potassium Chloride 94.4 L Carbon Dioxide BUN 49 H Creatinine 7.3 H Glucose POC Glucose AST ALT Troponin T NT-Pro-B Natriuret Pep Albumin Triglycerides LDL Cholesterol Direct HDL Cholesterol Crossmatch 07/30/19 07/30/19 07/30/19 02:40 23:32 23:32 WBC RBC Hgb Hct MCV MCH RDW Seg Neuts % (Manual) Lymphocytes % (Manual) Seg Neutrophils # Man Lymphocytes # (Manual) Monocytes # (Manual) PT INR APTT Sodium Potassium 6.0 H D 5.3 H 5.6 H Chloride 97.0 L Carbon Dioxide BUN 67 H 32 H Creatinine 8.6 H 4.5 H Glucose 105 H POC Glucose AST ALT Troponin T NT-Pro-B Natriuret Pep Albumin Triglycerides LDL Cholesterol Direct HDL Cholesterol Crossmatch 07/31/19 07/31/19 04:39 04:39 WBC 29.6 H RBC 3.45 L Hgb 8.4 L Hct 26.8 L MCV 78 L MCH 25 L RDW 27.3 H Seg Neuts % (Manual) 83.0 H Lymphocytes % (Manual) 10.0 L Seg Neutrophils # Man 24.6 H Lymphocytes # (Manual) Monocytes # (Manual) 2.1 H PT INR APTT Sodium Potassium Chloride Carbon Dioxide BUN 39 H Creatinine 5.2 H Glucose POC Glucose AST ALT Troponin T NT-Pro-B Natriuret Pep Albumin Triglycerides LDL Cholesterol Direct HDL Cholesterol Crossmatch
--- NOTE | 2019-07-31 09:15 | XRay Report ---
ABDOMEN 1 VIEW(S) 8:31 AM INDICATION / CLINICAL INFORMATION: Feeding tube placement. COMPARISON: None available. FINDINGS: TUBES / LINES: There is a feeding tube with the tip overlying the distal stomach or duodenal bulb. BOWEL GAS PATTERN: No significant abnormality. FREE AIR / EXTRALUMINAL GAS: None seen. ADDITIONAL FINDINGS: No significant additional findings. IMPRESSION: Feeding tube tip overlies the distal stomach or duodenal bulb. Signer Name: Jg Dela Cruz MD Signed: 07/31/2019 9:11 AM Workstation Name: [id number]
--- NOTE | 2019-07-31 11:53 | Progress Note ---
Assessment and Plan Impression: * End-stage renal disease on maintenance hemodialysis * Hyperkalemia * New onset seizure * Leukocytosis * Hypotension * Anemia * Hypoglycemia * Neuropathy * Lupus Recommendations * Patient had hemodialysis treatment yesterday * Synthroid and potassium is better but high normal at 5.0. Check her chemistries again tomorrow. She may need dialysis tomorrow * Continue dialysis on TTS schedule for now * Patient's blood pressure is better today. Continue to hold losartan for now * Follow up results of anti-DNA antibody as well as complement level * neurology evaluation appreciated * Antibiotic therapy as per primary team * Epogen with dialysis * Adjust diet and meds for ESRD state Subjective Date of service: 07/31/19 Principal diagnosis: anemia, dizziness Interval history: Patient is arousable but confused. Currently with a Dobbhoff tube in place. Objective - Vital Signs Vital signs: Vital Signs - 12hr 07/31/19 07/31/19 07/31/19 00:05 00:16 04:29 Temperature 98.7 F Pulse Rate 109 H 109 H 115 H Respiratory 20 Rate Blood Pressure 145/107 145/107 116/69 O2 Sat by Pulse 86 Oximetry - General Appearance General appearance: well-developed, well-nourished, appears stated age EENT: PERRL, mucous membranes moist Neck: no JVD, no thyromegaly, no carotid bruit, supple Respiratory: Present: Clear to Ascultation Cardiology: regular, normal heart rate, S1S2, no murmurs Gastrointestinal: normal, normoactive bowel sounds Integumentary: no rash, other (AV fistula left upper arm. Good bruit and thrill.) - Lab 07/31/19 04:39 07/31/19 04:39 Most recent lab results Calcium 8.9 mg/dL (8.4-10.2) 07/31/19 04:39 Magnesium 2.00 mg/dL (1.7-2.3) 07/30/19 23:32 Medications & Allergies - Medications Allergies/Adverse Reactions: Allergies lactose Adverse Reaction (Verified 07/29/19 08:16) Unknown Home Medications: Home Medications Medication Instructions Recorded Confirmed Last Taken Type Gabapentin 300 mg PO 3XW 11/14/18 07/26/19 07/25/19 History ALBUTEROL NEB's [Proventil] 2.5 mg IH QID PRN 07/26/19 07/26/19 07/25/19 History Amitriptyline [Elavil] 25 mg PO QHS 07/26/19 07/26/19 07/25/19 History Amitriptyline [Elavil] 25 mg PO QHS 07/26/19 07/26/19 07/25/19 History Cyanocobalamin (Vitamin B-12) 1,000 mcg PO QDAY 07/26/19 07/26/19 07/25/19 History [Vitamin B-12] Folic Acid [Folvite] 1 mg PO QDAY 07/26/19 07/26/19 07/25/19 History Hydroxychloroquine [Plaquenil] 200 mg PO QDAY 07/26/19 07/26/19 07/25/19 History Ibuprofen [Motrin] 800 mg PO Q8HR PRN 07/26/19 07/26/19 07/25/19 History Labetalol HCl [Labetalol 300mg TAB] 300 mg PO Q12H 07/26/19 07/26/19 07/25/19 History Losartan [Cozaar] 50 mg PO QDAY 07/26/19 07/26/19 07/25/19 History Mirtazapine 7.5 mg PO QDAY 07/26/19 07/26/19 07/25/19 History Mycophenolate [Cellcept] 500 mg PO QDAY 07/26/19 07/26/19 07/25/19 History Pantoprazole [Protonix] 40 mg PO BID 07/26/19 07/26/19 07/25/19 History Pregabalin [Lyrica] 25 mg PO QDAY 07/26/19 07/26/19 07/25/19 History Sevelamer HCl [Renagel] 800 mg PO BIDWM 07/26/19 07/26/19 07/25/19 History hydrOXYzine HCL [Atarax] 50 mg PO QDAY 07/26/19 07/26/19 07/25/19 History predniSONE [Deltasone] 20 mg PO QDAY 07/26/19 07/26/19 07/25/19 History Active Medications: Generic Name Dose Route Start Last Admin Trade Name Freq PRN Reason Stop Dose Admin Acetaminophen 650 mg 07/26/19 11:08 Tylenol PO Q6H PRN Pain, Mild (1-3) Albuterol 2.5 mg 07/26/19 15:39 Proventil IH QID PRN Wheezing Amitriptyline HCl 25 mg 07/26/19 22:00 07/31/19 00:15 Elavil PO Not Given QHS JOEL Lipase/Protease/Amylase 1 each 07/31/19 08:26 Pancremarcella Diane 10,500 Unit FEEDTUBE PRN PRN For Clogged Feeding Tube Cyanocobalamin 1,000 mcg 07/27/19 10:00 07/30/19 13:20 Vitamin B-12 PO Not Given QDAY JOEL Dextrose 25 ml 07/26/19 11:06 07/26/19 12:32 D50w (25gm) Syringe IV 25 ml PRN PRN Administration Hypoglycemia Epoetin Mitch 10,000 unit 07/26/19 10:10 07/30/19 19:19 Procrit IV 10,000 unit FAN PRN Administration hemodialysis Folic Acid 1 mg 07/27/19 10:00 07/30/19 13:19 Folvite PO Not Given QDAY [facility] Gabapentin 100 mg 07/26/19 14:00 07/31/19 06:14 Neurontin PO Not Given Q8HR [facility] Hydralazine HCl 10 mg 07/30/19 20:16 07/31/19 00:05 Apresoline IV 10 mg Q4HR PRN Administration Blood Pressure Hydroxychloroquine Sulfate 200 mg 07/27/19 10:00 07/30/19 13:19 Plaquenil PO Not Given QDAY [facility] Hydroxyzine HCl 50 mg 07/27/19 10:00 07/30/19 13:14 Atarax PO Not Given QDAY [facility] Sodium Chloride 100 mls @ 999 mls/hr 07/26/19 12:30 Nacl 0.9% IV FAN PRN Hypotension Cefepime HCl 1 gm in 100 mls @ 200 mls/hr 07/27/19 10:00 07/30/19 12:00 Maxipime/Ns 1 Gm/100 Ml IV 200 mls/hr Q24HR JOEL Administration Protocol Levetiracetam 500 mg/ Dextrose 105 mls @ 400 mls/hr 07/30/19 12:00 07/31/19 10:31 IV 400 mls/hr BID JOEL Administration Labetalol HCl 300 mg 07/26/19 16:00 07/31/19 00:16 Normodyne PO Not Given BID [facility] Lorazepam 2 mg 07/30/19 11:02 Ativan IV Q1H PRN Seizures Losartan Potassium 50 mg 07/27/19 10:00 07/30/19 13:15 Cozaar PO Not Given QDAY [facility] Morphine Sulfate 1 mg 07/29/19 15:49 07/29/19 23:18 Morphine IV 1 mg Q8H PRN Administration Pain, Moderate (4-6) Mycophenolate Mofetil 500 mg 07/27/19 10:00 07/30/19 13:15 Cellcept PO Not Given QDAY [facility] Ondansetron HCl 4 mg 07/29/19 23:31 07/29/19 23:44 Zofran IV 4 mg Q6H PRN Administration Nausea And Vomiting Oxycodone/Acetaminophen 1 tab 07/29/19 15:49 Percocet 5/325 PO Q8H PRN Pain, Moderate (4-6) Prednisone 20 mg 07/27/19 10:00 07/30/19 13:19 Deltasone PO Not Given QDAY [facility] Sevelamer Carbonate 800 mg 07/26/19 16:30 07/31/19 08:25 Renvela PO Not Given 0730,1630 [facility] Simple Syrup 15 ml 07/31/19 08:26 Simple Syrup FEEDTUBE PRN PRN Hypoglycemia Simple Syrup 30 ml 07/31/19 08:26 Simple Syrup FEEDTUBE PRN PRN Hypoglycemia Sodium Bicarbonate 325 mg 07/31/19 08:26 Sodium Bicarbonate FEEDTUBE PRN PRN For Clogged Feeding Tube
[2019-07-31] MEDS: MAXIPIME/NS 1 GM/100 ML 1 GM/100 ML BAG IV SCH (11:57)
--- NOTE | 2019-07-31 11:58 | XRay Report ---
ABDOMEN 1 VIEW(S) 11:37 AM INDICATION / CLINICAL INFORMATION: Feeding tube placement. COMPARISON: Earlier today at 8:31 AM. FINDINGS: TUBES / LINES: The tip of the feeding tube overlies the expected location of the duodenal bulb, just to the right of midline in the upper abdomen. BOWEL GAS PATTERN: No significant abnormality. FREE AIR / EXTRALUMINAL GAS: None seen. ADDITIONAL FINDINGS: No significant additional findings. IMPRESSION: The tip of the feeding tube overlies the expected location of the duodenal bulb. Signer Name: Jg Dela Cruz MD Signed: 07/31/2019 11:54 AM Workstation Name: [id number]
--- NOTE | 2019-07-31 12:52 | Consultation ---
History of Present Illness - Reason for Consult Consult date: 07/31/19 - History of Present Illness 49 yo F PMHx ESRD on HD, lupus, previous mRSA infection. Complains of bilateral LE pain, cramping, and burning sensation. She was found have hyperkalemia and SOB due to fluid overload. She otherwise denied fevers, sweats, chills. While recently with her physician at [place] she attempted to get some antibiotics for a "bump in her private area". She reports having some fevers and chills at home. She also missed the dialysis before her admission. During her admission she was found to have new onset seizures as well. She is post-ictal and unable to participate in the interview. She had a reported seizure yesterday. Afebrile since admission but persistently tachycardic. She has a white count of 29.6 which increased from 19.2 yesterday. There is a neutrophilic predominance without bandemia. She is currently on cefepime. Wound culture of buttocks growing E coli without PMNs. Imaging personally reviewed: Ankle foot XR: no abnormality. Past History Past Medical History: ESRD, hypertension, other (Lupus) Past Surgical History: Other (left leg fracture, AV fistula, peripheral neuropathy) Social history: other (marijuana use). denies: smoking, alcohol abuse Family history: hypertension Medications and Allergies Allergies Allergy/AdvReac Type Severity Reaction Status Date / Time lactose AdvReac Unknown Verified 07/29/19 08:16 Home Medications Medication Instructions Recorded Confirmed Last Taken Type Gabapentin 300 mg PO 3XW 11/14/18 07/26/19 07/25/19 History ALBUTEROL NEB's [Proventil] 2.5 mg IH QID PRN 07/26/19 07/26/19 07/25/19 History Amitriptyline [Elavil] 25 mg PO QHS 07/26/19 07/26/19 07/25/19 History Amitriptyline [Elavil] 25 mg PO QHS 07/26/19 07/26/19 07/25/19 History Cyanocobalamin (Vitamin B-12) 1,000 mcg PO QDAY 07/26/19 07/26/19 07/25/19 History [Vitamin B-12] Folic Acid [Folvite] 1 mg PO QDAY 07/26/19 07/26/19 07/25/19 History Hydroxychloroquine [Plaquenil] 200 mg PO QDAY 07/26/19 07/26/19 07/25/19 History Ibuprofen [Motrin] 800 mg PO Q8HR PRN 07/26/19 07/26/19 07/25/19 History Labetalol HCl [Labetalol 300mg TAB] 300 mg PO Q12H 07/26/19 07/26/19 07/25/19 History Losartan [Cozaar] 50 mg PO QDAY 07/26/19 07/26/19 07/25/19 History Mirtazapine 7.5 mg PO QDAY 07/26/19 07/26/19 07/25/19 History Mycophenolate [Cellcept] 500 mg PO QDAY 07/26/19 07/26/19 07/25/19 History Pantoprazole [Protonix] 40 mg PO BID 07/26/19 07/26/19 07/25/19 History Pregabalin [Lyrica] 25 mg PO QDAY 07/26/19 07/26/19 07/25/19 History Sevelamer HCl [Renagel] 800 mg PO BIDWM 07/26/19 07/26/19 07/25/19 History hydrOXYzine HCL [Atarax] 50 mg PO QDAY 07/26/19 07/26/19 07/25/19 History predniSONE [Deltasone] 20 mg PO QDAY 07/26/19 07/26/19 07/25/19 History Active Meds: Active Medications Acetaminophen (Tylenol) 650 mg PO Q6H PRN PRN Reason: Pain, Mild (1-3) Albuterol (Proventil) 2.5 mg IH QID PRN PRN Reason: Wheezing Amitriptyline HCl (Elavil) 25 mg PO QHS [facility] Last Admin: 07/31/19 00:15 Dose: Not Given Documented by: Lipase/Protease/Amylase (Tu Diane 10,500 Unit) 1 each FEEDTUBE PRN PRN PRN Reason: For Clogged Feeding Tube Cyanocobalamin (Vitamin B-12) 1,000 mcg PO QDAY [facility] Last Admin: 07/30/19 13:20 Dose: Not Given Documented by: Dextrose (D50w (25gm) Syringe) 25 ml IV PRN PRN PRN Reason: Hypoglycemia Last Admin: 07/26/19 12:32 Dose: 25 ml Documented by: Epoetin Mitch (Procrit) 10,000 unit IV FAN PRN PRN Reason: hemodialysis Last Admin: 07/30/19 19:19 Dose: 10,000 unit Documented by: Folic Acid (Folvite) 1 mg PO QDAY [facility] Last Admin: 07/30/19 13:19 Dose: Not Given Documented by: Gabapentin (Neurontin) 100 mg PO Q8HR [facility] Last Admin: 07/31/19 06:14 Dose: Not Given Documented by: Hydralazine HCl (Apresoline) 10 mg IV Q4HR PRN PRN Reason: Blood Pressure Last Admin: 07/31/19 00:05 Dose: 10 mg Documented by: Hydroxychloroquine Sulfate (Plaquenil) 200 mg PO QDAY [facility] Last Admin: 07/30/19 13:19 Dose: Not Given Documented by: Hydroxyzine HCl (Atarax) 50 mg PO QDAY [facility] Last Admin: 07/30/19 13:14 Dose: Not Given Documented by: Sodium Chloride (Nacl 0.9%) 100 mls @ 999 mls/hr IV FAN PRN PRN Reason: Hypotension Cefepime HCl (Maxipime/Ns 1 Gm/100 Ml) 1 gm in 100 mls @ 200 mls/hr IV Q24HR [facility]; Protocol Last Admin: 07/31/19 11:57 Dose: 200 mls/hr Documented by: Levetiracetam 500 mg/ Dextrose 105 mls @ 400 mls/hr IV BID [facility] Last Admin: 07/31/19 10:31 Dose: 400 mls/hr Documented by: Labetalol HCl (Normodyne) 300 mg PO BID [facility] Last Admin: 07/31/19 00:16 Dose: Not Given Documented by: Lorazepam (Ativan) 2 mg IV Q1H PRN PRN Reason: Seizures Losartan Potassium (Cozaar) 50 mg PO QDAY [facility] Last Admin: 07/30/19 13:15 Dose: Not Given Documented by: Morphine Sulfate (Morphine) 1 mg IV Q8H PRN PRN Reason: Pain, Moderate (4-6) Last Admin: 07/29/19 23:18 Dose: 1 mg Documented by: Mycophenolate Mofetil (Cellcept) 500 mg PO QDAY [facility] Last Admin: 07/30/19 13:15 Dose: Not Given Documented by: Ondansetron HCl (Zofran) 4 mg IV Q6H PRN PRN Reason: Nausea And Vomiting Last Admin: 07/29/19 23:44 Dose: 4 mg Documented by: Oxycodone/Acetaminophen (Percocet 5/325) 1 tab PO Q8H PRN PRN Reason: Pain, Moderate (4-6) Prednisone (Deltasone) 20 mg PO QDAY [facility] Last Admin: 07/30/19 13:19 Dose: Not Given Documented by: Sevelamer Carbonate (Renvela) 800 mg PO 0730,1630 [facility] Last Admin: 07/31/19 08:25 Dose: Not Given Documented by: Simple Syrup (Simple Syrup) 15 ml FEEDTUBE PRN PRN PRN Reason: Hypoglycemia Simple Syrup (Simple Syrup) 30 ml FEEDTUBE PRN PRN PRN Reason: Hypoglycemia Sodium Bicarbonate (Sodium Bicarbonate) 325 mg FEEDTUBE PRN PRN PRN Reason: For Clogged Feeding Tube Review of Systems ROS unobtainable: due to mental status Physical Examination - Physical Exam Narrative exam: Physical Exam: Constitutional: Somnolent, NG tube in place Head, Ears, Nose: Normocephalic, atraumatic. External ears, nose normal Eyes: Conjunctivae/corneas clear. No icterus. No ptosis. Neck: Supple, no meningeal signs Oral: dentition fair, no thrush Cardiovascular: S1, S2 normal. Respiratory: Good air entry, clear to auscultation bilaterally GI: Soft, very tender; bowel sounds normal. No peritoneal signs. Musculoskeletal: No pedal edema, no cyanosis. Skin: No rash or abscess Hem/Lymphatic: No palpable cervical or supraclavicular nodes. No lymphangitis Psych: Mood ok. Affect normal Neurological: Somnolent, non verbal - Constitutional Vitals: Vital Signs Temp Pulse Resp BP Pulse Ox 98.7 F 115 H 20 136/95 86 07/31/19 04:29 07/31/19 04:29 07/31/19 04:29 07/31/19 10:36 07/31/19 04:29 Temperature -Last 24 Hours Temperature 98.7 F Temperature 97.7 F Temperature 98.6 F Temperature 98.8 F Results - Labs CBC & Chem 7: 09/29/19 04:39 07/31/19 04:39 Labs: Abnormal lab results 07/30/19 07/30/19 07/31/19 Range/Units 23:32 23:32 04:39 WBC 29.6 H (4.5-11.0) K/mm3 RBC 3.45 L (3.65-5.03) M/mm3 Hgb 8.4 L (10.1-14.3) gm/dl Hct 26.8 L (30.3-42.9) % MCV 78 L (79-97) fl MCH 25 L (28-32) pg RDW 27.3 H (13.2-15.2) % Seg Neuts % (Manual) 83.0 H (40.0-70.0) % Lymphocytes % (Manual) 10.0 L (13.4-35.0) % Seg Neutrophils # Man 24.6 H (1.8-7.7) K/mm3 Monocytes # (Manual) 2.1 H (0.0-0.8) K/mm3 Potassium 5.3 H 5.6 H (3.6-5.0) mmol/L BUN 32 H (7-17) mg/dL Creatinine 4.5 H (0.7-1.2) mg/dL 07/31/19 Range/Units 04:39 WBC (4.5-11.0) K/mm3 RBC (3.65-5.03) M/mm3 Hgb (10.1-14.3) gm/dl Hct (30.3-42.9) % MCV (79-97) fl MCH (28-32) pg RDW (13.2-15.2) % Seg Neuts % (Manual) (40.0-70.0) % Lymphocytes % (Manual) (13.4-35.0) % Seg Neutrophils # Man (1.8-7.7) K/mm3 Monocytes # (Manual) (0.0-0.8) K/mm3 Potassium (3.6-5.0) mmol/L BUN 39 H (7-17) mg/dL Creatinine 5.2 H (0.7-1.2) mg/dL Assessment and Plan Cultures: Wound culture - E coli, whittaker sensitive A/P: 49 yo F PMHx ESRD on HD, lupus, previous mRSA infection now with wound infection, abdominal pain and seizures 1. Acute sepsis - Present with tachycardia and leukocytosis. Possible source wound infection vs intra-abominal infection. No bowel movements are recorded for her entire stay, however there is an obvious foul smell of feces in her room. She is in enteric precautions, so I am assuming that is a reflex order from checking C diff. She is non-participative in the interview, so she is unable to tell me about the volume or consistency of her stools. Will order CT abdomen as she was severely tender on my exam. 2. Leukocytosis - possibly secondary to acute seizure, would follow. 3. ESRD on HD - renally dose antibiotics 4. Wound infection - Continue cefepime. No evidence of MRSA at present, can de-escalate vancomycin. 5. Lupus 6. Seizures - post-ictal. Recs: - CT abdomen/pelvis - continue cefepime ESRd dosing - stop vancomycin - If C diff not sent, please send if having diarrhea. Thank you for the consult, we will continue to follow. Almas Merino MD [facility] M: [phone] O: [phone] F: [phone]
[2019-07-31] MEDS: PLAQUENIL PO SCH (13:33)
[2019-07-31] MEDS: DELTASONE PO SCH (13:33)
[2019-07-31] MEDS: VITAMIN B-12 PO SCH (13:33)
[2019-07-31] MEDS: FOLVITE PO SCH (13:33)
[2019-07-31] MEDS: ATARAX PO SCH (13:33)
[2019-07-31] MEDS: CELLCEPT PO SCH (13:34)
[2019-07-31] MEDS: COZAAR PO SCH (13:42)
--- NOTE | 2019-07-31 21:33 | Cat Scan Report ---
CT ABDOMEN AND PELVIS WITHOUT CONTRAST INDICATION: Unspecified severe abdominal pain/tenderness. COMPARISON: KUB from earlier today TECHNIQUE: Axial, coronal and sagittal CT imaging of the abdomen and pelvis was performed without co ntrast. Lack of intravenous contrast limits evaluation of the vascular and solid organs. All CT sca ns at this location are performed using CT dose reduction for ALARA by means of automated exposure co ntrol. FINDINGS: Streak artifact from a Dobbhoff tube limits evaluation of the upper abdomen. LOWER CHEST: The heart is moderately enlarged with a small pericardial effusion. There is left basila r atelectasis. LIVER: No significant abnormality. BILIARY: No significant abnormality. PANCREAS: Generalized edema is noted throughout the pancreas with surrounding moderate inflammation. No distinct pancreatic lesion is identified. SPLEEN: No significant abnormality. ADRENALS: No significant abnormality. KIDNEYS AND URETERS: There is mild to moderate bilateral renal atrophy without an additional signific ant abnormality. GI TRACT: No acute abnormality of the stomach, small bowel or colon. The Dobbhoff tube terminates may ng the second portion of the duodenum. Unremarkable appendix. PERITONEUM: Generalized mesenteric edema is noted with a small amount of free fluid throughout the ab domen and pelvis. No free air. No fluid collection. LYMPH NODES: Shotty periaortic and mesenteric nodes are present. No lymphadenopathy is seen elsewhere . VASCULATURE: The aorta is normal in caliber with mild bilateral iliac atherosclerosis. URINARY BLADDER: No significant abnormality. REPRODUCTIVE ORGANS: No significant abnormality. ADDITIONAL FINDINGS: None. SKELETAL SYSTEM: No significant abnormality. IMPRESSION: Uncomplicated acute pancreatitis. Signer Name: Familia Stovall MD Signed: 07/31/2019 9:29 PM Workstation Name: [id number]
--- NOTE | 2019-07-31 22:31 | Consultation ---
HISTORY OF PRESENT ILLNESS: This is a 29-year-old black female that presents to [facility] on 07/26/2019. She presented with a prior history of having long history of lupus erythematosus and had experienced end-stage renal disease and according to her history had a possible history of MRSA. She was a very poor historian. She admitted to noncompliance with dialysis. Last dialysis was almost a week prior to admission. She was then transferred apparently for memory dialysis to [facility]. Her major complaint presenting to the Emergency Room was severe burning in the legs. She had been taking medication for this including gabapentin 300 mg 3 times a day, mirtazapine 7.5 mg daily and she was felt to have a chronic pain syndrome and was assessed. Glucose was 54 and the patient's hematocrit was 23. Her blood pressure was 128/64. She was felt to be having bacteremia and elevated white blood count and there was evidence of significant cardiomegaly and the patient was given ____. Was also noted to be hyperkalemic. It was felt the patient probably needed dialysis because of her potassium of 6.2 and eventually admitted with complications of dialysis treatment. Subsequent to admission, she has had a number of problems relating to renal failure and her medications at present time are albuterol, Elavil. She is on antibiotic therapy, vitamin B12, Epogen, folic acid, gabapentin, hydralazine, ____ quinolone and subsequent to admission was also started on doses of levetiracetam and she takes ____ and losartan. She is also on CellCept 500 mg once p.o. daily and oxycodone 1 mg every 8 hours p.r.n. pain and prednisone 20 mg daily. On subsequent to admission by history, she did have a seizure. On my examination, she is currently postictal. Her blood pressure is 96/54. Cranial nerves II through XII are intact. She is difficult to arouse, but does move all extremities. I do not find any focal weakness. Her neck is supple. No meningismus is present. I did review over her CT scan of the head. There is some mild left maxillary sinusitis. There is no air fluid level. No soft tissue mass, is simply mild swelling of the mucosa within the maxillary sinus. The coleman and white matter, otherwise, unremarkable. I do not see any abnormal calcifications. No evidence of edema, no evidence of any lucencies that would appear to be grossly abnormal. Subdural space is well maintained throughout and ventricular system has a normal size and shape. There is no evidence of ventriculitis. IMPRESSION: This patient is postictal. She has a very mild left maxillary sinusitis and is on IV antibiotic therapy. I think the predominant problems this patient is having are all metabolic. I do not think prior to admission that she was on any medications that she likely had a withdrawal from mirtazapine is not in the class that produces withdrawal seizures. Of course, it is unknown whether she was taking other medicines that might be precipitating seizures. I do not see anything on MAR that would immediately draw attention to an epileptic triggering. Recommendation is to continue the levetiracetam at the current monitored dose. The patient should receive dialysis when stable. I plan to check an MRI at some point to further assess the patient's condition. I do not think she has any overt evidence of any opportunistic infection within the [facility] at this point. JOB# [id number] HEVER/FREDERICK
[2019-08-01] MEDS: ELAVIL PO SCH (02:25)
[2019-08-01] MEDS: NEURONTIN PO SCH ×2 (02:26→06:58)
[2019-08-01] MEDS: NORMODYNE PO SCH ×3 (02:29→22:40)
[2019-08-01 06:46] LABS: Hematocrit 25.4 % (30.3-42.9); Hemoglobin 8.1 gm/dl (10.1-14.3); Mean Corpuscular HGB Conc 32 % (30-34); Mean Corpuscular Volume 78 fl (79-97); Red Blood Count 3.28 M/mm3 (3.65-5.03)
[2019-08-01 06:46] LABS: Calcium 9.5 mg/dL (8.4-10.2)
[2019-08-01 06:52] LABS: Red Cell Distribution Width 28.6 % (13.2-15.2)
--- NOTE | 2019-08-01 08:45 | Progress Note ---
Assessment and Plan - Patient Problems (1) End-stage renal disease needing dialysis Current Visit: Yes Status: Acute Plan to address problem: ESRD - on hemodialysis -access: left arm AVf - appears quite confused today - intial plan for HD today however given AMS and plan for imaging today will hold off HD until patient regular day tomorrow. (2) Leukocytosis Current Visit: Yes Status: Acute Qualifiers: Leukocytosis type: unspecified Qualified Code(s): D72.829 - Elevated white blood cell count, unspecified Plan to address problem: Leukocytosis - Ct with pancreatitis - wound culture with E.coli. -blood cultures have been negative. -afebrile - on antibiotics. (3) Lupus Current Visit: Yes Status: Acute Plan to address problem: Lupus : Patient with seizures , agitation overnight , nausea , vomitting in the setting of associated pancreatitis . Serologies pending continue to monitor for Flare of underlying disease process. (4) Encephalopathy Current Visit: Yes Status: Acute Plan to address problem: Encephalopathy - history of seizures -received 2mg of ativan overnight - unclear if this is metabolic /rheumatologic / need to exclude infectious causes given leukocytosis -Given cefepime association with neurotoxicity may be reasonable to try to use a different antibiotic. Subjective Principal diagnosis: anemia, dizziness Interval history: 29 year old lady with SLE , ESRD on hemodialysis on Thursday, and Thursday via a left arm AVF admitted with complaints of seizures. Also interval developement of leukcytosis and abdominal CT with concern for pancreatitis . Patient seen today , confused, apparently became agitated overnight with nausea and vomitting and received 2mg of Ativan per nursing staff She is not rousable to verbal commands, moaning, with non purposeful movements Dobhoff tube in place Left arm AVF received Cefepime for treatment of infection. Objective - Vital Signs Vital signs: Vital Signs - 12hr 07/31/19 07/31/19 08/01/19 21:58 23:00 02:29 Temperature 98.1 F Pulse Rate 99 H 96 H Pulse Rate [ 96 H Right Dorsalis Pedis] Respiratory 20 Rate Blood Pressure 121/83 121/81 O2 Sat by Pulse 96 Oximetry 08/01/19 05:17 Temperature 99.0 F Pulse Rate 104 H Pulse Rate [ Right Dorsalis Pedis] Respiratory 24 Rate Blood Pressure 104/64 O2 Sat by Pulse 94 Oximetry - General Appearance General appearance: chronically ill, anxious, other (moaning. ) EENT: mucous membranes moist Neck: no JVD Respiratory: Present: Clear to Ascultation Cardiology: regular, S1S2 Gastrointestinal: hypoactive bowel sounds, tenderness Integumentary: rash Neurologic: obtunded Psychiatric: agitated - Lab 08/01/19 Unknown 08/01/19 04:00 Most recent lab results Calcium 9.5 mg/dL (8.4-10.2) 08/01/19 04:00 Magnesium 2.00 mg/dL (1.7-2.3) 07/30/19 23:32 - Imaging Chest x-ray: image reviewed (I reviewed CXR ) CT scan - abdomen: image reviewed (i reviewed Ct with inflammed pancreas consistent with pancreatitis. ) Medications & Allergies - Medications Allergies/Adverse Reactions: Allergies lactose Adverse Reaction (Verified 07/29/19 08:16) Unknown Home Medications: Home Medications Medication Instructions Recorded Confirmed Last Taken Type Gabapentin 300 mg PO 3XW 11/14/18 07/26/19 07/25/19 History ALBUTEROL NEB's [Proventil] 2.5 mg IH QID PRN 07/26/19 07/26/19 07/25/19 History Amitriptyline [Elavil] 25 mg PO QHS 07/26/19 07/26/19 07/25/19 History Amitriptyline [Elavil] 25 mg PO QHS 07/26/19 07/26/19 07/25/19 History Cyanocobalamin (Vitamin B-12) 1,000 mcg PO QDAY 07/26/19 07/26/19 07/25/19 History [Vitamin B-12] Folic Acid [Folvite] 1 mg PO QDAY 07/26/19 07/26/19 07/25/19 History Hydroxychloroquine [Plaquenil] 200 mg PO QDAY 07/26/19 07/26/19 07/25/19 History Ibuprofen [Motrin] 800 mg PO Q8HR PRN 07/26/19 07/26/19 07/25/19 History Labetalol HCl [Labetalol 300mg TAB] 300 mg PO Q12H 07/26/19 07/26/19 07/25/19 History Losartan [Cozaar] 50 mg PO QDAY 07/26/19 07/26/19 07/25/19 History Mirtazapine 7.5 mg PO QDAY 07/26/19 07/26/19 07/25/19 History Mycophenolate [Cellcept] 500 mg PO QDAY 07/26/19 07/26/19 07/25/19 History Pantoprazole [Protonix] 40 mg PO BID 07/26/19 07/26/19 07/25/19 History Pregabalin [Lyrica] 25 mg PO QDAY 07/26/19 07/26/19 07/25/19 History Sevelamer HCl [Renagel] 800 mg PO BIDWM 07/26/19 07/26/19 07/25/19 History hydrOXYzine HCL [Atarax] 50 mg PO QDAY 07/26/19 07/26/19 07/25/19 History predniSONE [Deltasone] 20 mg PO QDAY 07/26/19 07/26/19 07/25/19 History Active Medications: Generic Name Dose Route Start Last Admin Trade Name Freq PRN Reason Stop Dose Admin Acetaminophen 650 mg 07/26/19 11:08 Tylenol PO Q6H PRN Pain, Mild (1-3) Albuterol 2.5 mg 07/26/19 15:39 Proventil IH QID PRN Wheezing Amitriptyline HCl 25 mg 07/26/19 22:00 08/01/19 02:25 Elavil PO Not Given QHS JOEL Lipase/Protease/Amylase 1 each 07/31/19 08:26 Pancremarcella Diane 10,500 Unit FEEDTUBE PRN PRN For Clogged Feeding Tube Cyanocobalamin 1,000 mcg 07/27/19 10:00 07/31/19 13:33 Vitamin B-12 PO 1,000 mcg QDAY JOEL Administration Dextrose 25 ml 07/26/19 11:06 07/26/19 12:32 D50w (25gm) Syringe IV 25 ml PRN PRN Administration Hypoglycemia Epoetin Mitch 10,000 unit 07/26/19 10:10 07/30/19 19:19 Procrit IV 10,000 unit FAN PRN Administration hemodialysis Folic Acid 1 mg 07/27/19 10:00 07/31/19 13:33 Folvite PO 1 mg QDAY JOEL Administration Gabapentin 100 mg 07/26/19 14:00 08/01/19 06:58 Neurontin PO Not Given Q8HR JOEL Hydralazine HCl 10 mg 07/30/19 20:16 07/31/19 00:05 Apresoline IV 10 mg Q4HR PRN Administration Blood Pressure Hydroxychloroquine Sulfate 200 mg 07/27/19 10:00 07/31/19 13:33 Plaquenil PO 200 mg QDAY JOEL Administration Hydroxyzine HCl 50 mg 07/27/19 10:00 07/31/19 13:33 Atarax PO 50 mg QDAY JOEL Administration Sodium Chloride 100 mls @ 999 mls/hr 07/26/19 12:30 Nacl 0.9% IV FAN PRN Hypotension Cefepime HCl 1 gm in 100 mls @ 200 mls/hr 07/27/19 10:00 07/31/19 11:57 Maxipime/Ns 1 Gm/100 Ml IV 200 mls/hr Q24HR JOEL Administration Protocol Levetiracetam 500 mg/ Dextrose 105 mls @ 400 mls/hr 07/30/19 12:00 07/31/19 22:58 IV 400 mls/hr BID JOEL Administration Labetalol HCl 300 mg 07/26/19 16:00 08/01/19 02:29 Normodyne PO Not Given BID JOEL Lorazepam 2 mg 07/30/19 11:02 07/31/19 23:21 Ativan IV 2 mg Q1H PRN Administration Seizures Losartan Potassium 50 mg 07/27/19 10:00 07/31/19 13:42 Cozaar PO 50 mg QDAY JOEL Administration Morphine Sulfate 1 mg 07/29/19 15:49 07/29/19 23:18 Morphine IV 1 mg Q8H PRN Administration Pain, Moderate (4-6) Mycophenolate Mofetil 500 mg 07/27/19 10:00 07/31/19 13:34 Cellcept PO 500 mg QDAY JOEL Administration Ondansetron HCl 4 mg 07/29/19 23:31 07/29/19 23:44 Zofran IV 4 mg Q6H PRN Administration Nausea And Vomiting Oxycodone/Acetaminophen 1 tab 07/29/19 15:49 Percocet 5/325 PO Q8H PRN Pain, Moderate (4-6) Prednisone 20 mg 07/27/19 10:00 07/31/19 13:33 Deltasone PO 20 mg QDAY JOEL Administration Sevelamer Carbonate 800 mg 07/26/19 16:30 07/31/19 20:43 Renvela PO Not Given 0730,1630 JOEL Simple Syrup 15 ml 07/31/19 08:26 Simple Syrup FEEDTUBE PRN PRN Hypoglycemia Simple Syrup 30 ml 07/31/19 08:26 Simple Syrup FEEDTUBE PRN PRN Hypoglycemia Sodium Bicarbonate 325 mg 07/31/19 08:26 Sodium Bicarbonate FEEDTUBE PRN PRN For Clogged Feeding Tube
[2019-08-01] MEDS: KEPPRA 500 MG in D5W 100 ML IV SCH ×2 (10:19→22:10)
[2019-08-01] MEDS: MAXIPIME/NS 1 GM/100 ML 1 GM/100 ML BAG IV SCH (10:19)
[2019-08-01 10:56] LABS: Band Neutrophils # (Manual) 8.5 K/mm3; Basophils % (Manual) 0 % (0.0-1.8); Eosinophils % (Manual) 0 % (0.0-4.3); Total Cells Counted 100
[2019-08-01 10:57] LABS: Dohle Bodies Few
[2019-08-01 11:03] LABS: Anisocytosis 1+; Hypochromasia 2+
[2019-08-01 11:06] LABS: Ovalocytes Few; Target Cells Few
[2019-08-01 11:07] LABS: Poikilocytosis Few
[2019-08-01 11:08] LABS: Large Platelets Rare; Platelet Estimate Cons
[2019-08-01 11:12] LABS: Platelet Count 185 K/mm3 (140-440)
--- NOTE | 2019-08-01 11:27 | Progress Note ---
Assessment and Plan Cultures: Wound culture - E coli, whittaker sensitive Blood culture 07/26/2019 no growth today A/P: 49 yo F PMHx ESRD on HD, lupus, previous MRSA infection now with wound infection, abdominal pain and seizures 1. Acute sepsis - now leukocytosis with leukomoid reaction 31K. Possible source pancreatitis. 2. Pancreatitis: ? CT with generalized edema is noted throughout the pancreas with surrounding moderate inflammation. No distinct pancreatic lesion is identified. Lipase 241. 3. ESRD on HD - renally dose antibiotics 4. Wound infection right buttocks - Continue cefepime. 5. Lupus - on plaquenil, cellcept and prednisone 6. New onset Seizures - ?? unclear etiology 7. AMS? received ativan for agitation overnight ? due to sepsis ?lupus. CT head with left maxillary sinusitis. Since patient is immunocompromised will close monitor for OI. 8. Severe anemia ? plaquenil ? GI bleed 9. Immunocompromised host Recs: - agree with MRI / EEG - check lumbar puncture r/o meningitis immunocompromissed patient with new onset seizure and fever - GI med consult / NPO for pancreatitis/GI bleed - continue cefepime renally adjusted - add ampicillin IV and vancomycin IV until meningitis is r/o - monitor mentation - monitor leukocytosis - check G6PD Will follow. Marly Laura MD Infectious Diseases [facility] ([facility]) M [phone] O [phone] Subjective Date of service: 08/01/19 Principal diagnosis: anemia, dizziness Interval history: Patient is somnolent unable to provide a history some grimace when palpating her abdomen Objective - Exam Narrative Exam: General appearance: somnolent in NAD Eyes: anicteric sclerae, clear conjunctivae HENT: Atraumatic; oropharynx clear dry mucosa Lungs: CTA CV: RRR Abdomen: Soft, tenderness diffusely Extremities: no edema, no cyanosis Skin: No rash. +multiple scattered old scars and +right hip superficial wound Psych: somnolent Neuro: somnolent - Constitutional Vitals: Vital Signs Temp Pulse Resp BP Pulse Ox 99.0 F 104 H 24 104/64 94 08/01/19 05:17 08/01/19 05:17 08/01/19 05:17 08/01/19 05:17 08/01/19 05:17 Temperature -Last 24 Hours Temperature 99.0 F Temperature 98.1 F Temperature 98.2 F - Labs CBC & Chem 7: 08/01/19 Unknown 08/01/19 04:00 Labs: Abnormal lab results 08/01/19 08/01/19 08/01/19 Range/Units 04:00 04:00 Unknown WBC 31.3 H (4.5-11.0) K/mm3 RBC 3.28 L (3.65-5.03) M/mm3 Hgb 8.1 L (10.1-14.3) gm/dl Hct 25.4 L (30.3-42.9) % MCV 78 L (79-97) fl MCH 25 L (28-32) pg RDW 28.6 H (13.2-15.2) % Nucleated RBC % 2.0 H (0.0-0.9) % Seg Neutrophils # Man 16.6 H (1.8-7.7) K/mm3 Sodium 149 H (137-145) mmol/L BUN 74 H (7-17) mg/dL Creatinine 7.8 H (0.7-1.2) mg/dL Glucose 125 H (65-100) mg/dL Amylase 834 H (27-131) units/L Lipase 241 H (13-60) units/L
[2019-08-01] MEDS ORDERED: VANCOMYCIN PHARMACY TO DOSE IV SCH (13:00)
--- NOTE | 2019-08-01 13:02 | Magnetic Resonance Report ---
MRI BRAIN WITHOUT CONTRAST INDICATION / CLINICAL INFORMATION: New seizures/worsening AMS. TECHNIQUE: Multiplanar, multisequence MR images of the brain were obtained. COMPARISON: Head CT on 07/30/2019. FINDINGS: Exam is mildly limited from motion artifact. BRAIN / INTRACRANIAL CONTENTS: No acute ischemia, acute hemorrhage, mass effect, midline shift, or hy drocephalus. No chronic infarct or significant atrophy. No significant demyelinating changes. CRANIOCERVICAL JUNCTION: No significant abnormality. VASCULAR FLOW-VOIDS: No significant abnormality. ORBITS: No significant abnormality of visualized orbits. SINUSES / MASTOIDS: Moderate mucosal thickening in the left maxillary sinus. ADDITIONAL FINDINGS: None. IMPRESSION: 1. Moderately limited exam due to motion artifact on multiple sequences. No appreciable acute intracr anial abnormality or definite findings to explain seizures. 2. Moderate left maxillary sinus mucosal thickening. Signer Name: Gurmeet Cook MD Signed: 08/01/2019 12:58 PM Workstation Name: [id number]
[2019-08-01] MEDS: AMPICILLIN/NS 2 GM/100 ML 2 GM/100 ML BAG IV SCH ×2 (14:00→22:10)
[2019-08-01] MEDS ORDERED: VANCOMYCIN 1,500 MG in NACL 0.9% 500 ML 500 ML IV ONE (15:00)
--- NOTE | 2019-08-01 16:36 | Progress Note ---
Assessment and Plan Assessment and plan: 29-year-old -[place] female patient with significant past medical history of end-stage renal disease on hemodialysis lupus chronic pain syndrome history of MRSA infection in the past was admitted through emergency room with bilateral lower extremity cramping burning sensation hyperkalemia fluid overload fevers, treated empirically with antibiotics received hemodialysis per schedule, Wound cultures positive for Escherichia coli on appropriate antibiotics Patient developed new onset seizures on 07/30/2019, received Keppra and Ativan Evaluated by neurology, CT head negative, patient remained Lethargic noncommunicative since first episode of seizure ,MRI done today was negative for acute abnormalities, consulted second neurologist . And also has Persistent leukocytosis, ID evaluated, ordered C. difficile. Lumbar puncture[pending] She is noted to have acute pancreatitis, coffee ground emesis, consulted GI today --New onset seizures : On Keppra, Seizure precautions, Follow EEG, CT head negative for acute abnormality MRI brain no acute abnormalities . Neurology following --Severe Metabolic encephalopathy; multifactorial Sepsis, seizures, acute pancreatitis --Persistent leukocytosis; altered level of consciousness Escherichia coli sepsis Continue cefepime C. difficile, lumbar puncture recommended by ID --Acute pancreatitis on CT/elevated lipase Continue supportive care, GI consulted --Episode of Coffee-ground emesis; closely monitor H&H GI consult. --History of lupus; resume home medications Possible flareup, monitor --Sepsis; Escherichia coli wound infection IV antibiotics, supportive care --Hypotension; fluid bolus 250 ml NS, as needed If no improvement, consider vasopressors and transferred to ICU --Hyperkalemia; resolved secondary to end-stage renal disease --End-stage renal disease; on hemodialysis HD per schedule, nephrology --Moderate malnutrition/hypoalbuminemia; Dobbhoff placement Tube feeding per protocol --DVT prophylaxis; Lovenox renal dose Plan of care reviewed with the patient's nurse D/W Family members yesterday over the phone, update them as needed I called the patient's sister/next of kin Mariya Painting at [phone] Disposition; patient is critically ill, follow multiple oracle distribution consultant's Evaluations and recommendations Critical care time 32 minutes History Interval history: Patient seen and examined medical records reviewed Patient remains critically ill and peripheral neuropathic Noncommunicative lethargic Vital signs reviewed Hospitalist Physical - Constitutional Vitals: Temp Pulse Resp BP Pulse Ox 98.8 F 100 H 16 97/55 96 08/01/19 13:14 08/01/19 13:14 08/01/19 13:14 08/01/19 13:14 08/01/19 13:14 General appearance: Present: mild distress, well-nourished, obese, other (uncommunicative, lethargic, responds only to deep stimuli) - EENT Eyes: Present: PERRL, EOM intact - Neck Neck: Present: supple, normal ROM - Respiratory Respiratory effort: normal Respiratory: bilateral: diminished, rales, negative: rhonchi, wheezing - Cardiovascular Rhythm: regular Heart Sounds: Present: S1 & S2 - Extremities Extremities: no ischemia, No edema - Abdominal General gastrointestinal: soft, non-tender, non-distended, normal bowel sounds - Integumentary Integumentary: Present: clear, warm - Psychiatric Psychiatric: other (unresponsive) - Neurologic Neurologic: other (unresponsive) Results - Labs CBC & Chem 7: 08/01/19 Unknown 08/01/19 04:00 Labs: Laboratory Last Values WBC 31.3 K/mm3 (4.5-11.0) H 08/01/19 Unknown RBC 3.28 M/mm3 (3.65-5.03) L 08/01/19 Unknown Hgb 8.1 gm/dl (10.1-14.3) L 08/01/19 Unknown Hct 25.4 % (30.3-42.9) L 08/01/19 Unknown MCV 78 fl (79-97) L 08/01/19 Unknown MCH 25 pg (28-32) L 08/01/19 Unknown MCHC 32 % (30-34) 08/01/19 Unknown RDW 28.6 % (13.2-15.2) H 08/01/19 Unknown Plt Count 185 K/mm3 (140-440) 08/01/19 Unknown Lymph # [employer] 08/01/19 Unknown Add Manual Diff Complete 08/01/19 Unknown Total Counted 100 08/01/19 Unknown Seg Neuts % (Manual) 53.0 % (40.0-70.0) 08/01/19 Unknown Band Neutrophils % 27.0 % 08/01/19 Unknown Lymphocytes % (Manual) 14.0 % (13.4-35.0) 08/01/19 Unknown Reactive Lymphs % (Man) 2.0 % 08/01/19 Unknown Monocytes % (Manual) 2.0 % (0.0-7.3) 08/01/19 Unknown Eosinophils % (Manual) 0 % (0.0-4.3) 08/01/19 Unknown Basophils % (Manual) 0 % (0.0-1.8) 08/01/19 Unknown Metamyelocytes % 2.0 % 08/01/19 Unknown Myelocytes % 0 % 08/01/19 Unknown Promyelocytes % 0 % 08/01/19 Unknown Blast Cells % 0 % 08/01/19 Unknown Nucleated RBC % 2.0 % (0.0-0.9) H 08/01/19 Unknown Seg Neutrophils # Man 16.6 K/mm3 (1.8-7.7) H 08/01/19 Unknown Band Neutrophils # 8.5 K/mm3 08/01/19 Unknown Lymphocytes # (Manual) 4.4 K/mm3 (1.2-5.4) 08/01/19 Unknown Abs React Lymphs (Man) 0.6 K/mm3 08/01/19 Unknown Monocytes # (Manual) 0.6 K/mm3 (0.0-0.8) 08/01/19 Unknown Eosinophils # (Manual) 0.0 K/mm3 (0.0-0.4) 08/01/19 Unknown Basophils # (Manual) 0.0 K/mm3 (0.0-0.1) 08/01/19 Unknown Metamyelocytes # 0.6 K/mm3 08/01/19 Unknown Myelocytes # 0.0 K/mm3 08/01/19 Unknown Promyelocytes # 0.0 K/mm3 08/01/19 Unknown Blast Cells # 0.0 K/mm3 08/01/19 Unknown WBC Morphology Not Reportable 08/01/19 Unknown Hypersegmented Neuts Not Reportable 08/01/19 Unknown Hyposegmented Neuts Not Reportable 08/01/19 Unknown Hypogranular Neuts Not Reportable 08/01/19 Unknown Smudge Cells Not Reportable 08/01/19 Unknown Toxic Granulation Not Reportable 08/01/19 Unknown Toxic Vacuolation Not Reportable 08/01/19 Unknown Dohle Bodies Few 08/01/19 Unknown Pelger-Huet Anomaly Not Reportable 08/01/19 Unknown Rose Rods Not Reportable 08/01/19 Unknown Platelet Estimate Cons 08/01/19 Unknown Clumped Platelets Not Reportable 08/01/19 Unknown Plt Clumps, EDTA Not Reportable 08/01/19 Unknown Large Platelets Rare 08/01/19 Unknown Giant Platelets Not Reportable 08/01/19 Unknown Platelet Satelliting Not Reportable 08/01/19 Unknown Plt Morphology Comment Not Reportable 08/01/19 Unknown RBC Morphology Not Reportable 08/01/19 Unknown Dimorphic RBCs Not Reportable 08/01/19 Unknown Polychromasia Not Reportable 08/01/19 Unknown Hypochromasia 2+ 08/01/19 Unknown Poikilocytosis Few 08/01/19 Unknown Anisocytosis 1+ 08/01/19 Unknown Microcytosis Not Reportable 08/01/19 Unknown Macrocytosis Not Reportable 08/01/19 Unknown Spherocytes Not Reportable 08/01/19 Unknown Pappenheimer Bodies Not Reportable 08/01/19 Unknown Sickle Cells Not Reportable 08/01/19 Unknown Target Cells Few 08/01/19 Unknown Tear Drop Cells Not Reportable 08/01/19 Unknown Ovalocytes Few 08/01/19 Unknown Helmet Cells Not Reportable 08/01/19 Unknown Benavidez-[place] Bodies Not Reportable 08/01/19 Unknown [place] Rings Not Reportable 08/01/19 Unknown [place] Cells Not Reportable 08/01/19 Unknown Bite Cells Not Reportable 08/01/19 Unknown Crenated Cell Not Reportable 08/01/19 Unknown Elliptocytes Not Reportable 08/01/19 Unknown Acanthocytes (Spur) Not Reportable 08/01/19 Unknown Rouleaux Not Reportable 08/01/19 Unknown Hemoglobin C Crystals Not Reportable 08/01/19 Unknown Schistocytes Not Reportable 08/01/19 Unknown Malaria parasites Not Reportable 08/01/19 Unknown ESR 78 mm/Hr (0-20) 07/26/19 05:25 Dinesh Bodies Not Reportable 08/01/19 Unknown Hem Pathologist Commnt Sent to pathology 08/01/19 Unknown PT 16.7 Sec. (12.2-14.9) H 07/26/19 06:31 INR 1.39 (0.87-1.13) H 07/26/19 06:31 APTT 41.1 Sec. (24.2-36.6) H 07/26/19 06:31 Sodium 149 mmol/L (137-145) H 08/01/19 04:00 Potassium 5.0 mmol/L (3.6-5.0) 08/01/19 04:00 Chloride 99.3 mmol/L (98-107) 08/01/19 04:00 Carbon Dioxide 28 mmol/L (22-30) 08/01/19 04:00 Anion Gap 27 mmol/L 08/01/19 04:00 BUN 74 mg/dL (7-17) H 08/01/19 04:00 Creatinine 7.8 mg/dL (0.7-1.2) H 08/01/19 04:00 Estimated GFR 7 ml/min 08/01/19 04:00 BUN/Creatinine Ratio 9 % 08/01/19 04:00 Glucose 125 mg/dL (65-100) H 08/01/19 04:00 POC Glucose 99 (70-105) 07/30/19 11:06 Lactic Acid 1.10 mmol/L (0.7-2.0) 07/26/19 06:31 Calcium 9.5 mg/dL (8.4-10.2) 08/01/19 04:00 Magnesium 2.00 mg/dL (1.7-2.3) 07/30/19 23:32 Total Bilirubin 0.30 mg/dL (0.1-1.2) 07/26/19 06:31 Direct Bilirubin < 0.2 mg/dL (0-0.2) 07/26/19 06:31 Indirect Bilirubin 0.1 mg/dL 07/26/19 06:31 AST < 5 units/L (5-40) L 07/26/19 06:31 ALT < 5 units/L (7-56) L 07/26/19 06:31 Alkaline Phosphatase 70 units/L (35-129) 07/26/19 06:31 Total Creatine Kinase 43 units/L (30-135) 07/26/19 05:25 Troponin T 0.072 ng/mL (0.00-0.029) H 07/26/19 06:31 NT-Pro-B Natriuret Pep 22478 pg/mL (0-450) H 07/26/19 06:31 Total Protein 6.4 g/dL (6.3-8.2) 07/26/19 06:31 Albumin 3.2 g/dL (3.9-5) L 07/26/19 06:31 Albumin/Globulin Ratio 1.0 % 07/26/19 06:31 Triglycerides 170 mg/dL (2-149) H 07/26/19 06:31 Cholesterol 91 mg/dL (50-199) 07/26/19 06:31 LDL Cholesterol Direct 30 mg/dL (50-130) L 07/26/19 06:31 HDL Cholesterol 25 mg/dL (40-59) L 07/26/19 06:31 Cholesterol/HDL Ratio 3.64 % 07/26/19 06:31 Amylase 834 units/L (27-131) H 08/01/19 04:00 Lipase 241 units/L (13-60) H 08/01/19 04:00 HCG, Qual Negative (Negative) 07/30/19 02:40 HCG, Quant < 2 mIU/mL (0-4) 07/26/19 05:25 Random Vancomycin 14.9 ug/mL (0-40.0) 07/28/19 07:01 RPR Nonreactive (Nonreactive) 07/26/19 05:25 Hepatitis A IgM Ab Non-reactive (NonReactive) 07/26/19 10:53 Hep Bs Antigen Non-reactive (Negative) 07/26/19 10:53 Hep B Core IgM Ab Non-reactive (NonReactive) 07/26/19 10:53 Hepatitis C Antibody Non-reactive (NonReactive) 07/26/19 10:53 Blood Type A POSITIVE 07/26/19 06:33 Antibody Screen Negative 07/26/19 06:33 Crossmatch See Detail 07/26/19 06:33 Active Medications - Current Medications Current Medications: Generic Name Dose Route Start Last Admin Trade Name Freq PRN Reason Stop Dose Admin Acetaminophen 650 mg 07/26/19 11:08 Tylenol PO Q6H PRN Pain, Mild (1-3) Albuterol 2.5 mg 07/26/19 15:39 Proventil IH QID PRN Wheezing Lipase/Protease/Amylase 1 each 07/31/19 08:26 Pancreaze 10,500 Unit FEEDTUBE PRN PRN For Clogged Feeding Tube Cyanocobalamin 1,000 mcg 07/27/19 10:00 07/31/19 13:33 Vitamin B-12 PO 1,000 mcg QDAY JOEL Administration Dextrose 25 ml 07/26/19 11:06 07/26/19 12:32 D50w (25gm) Syringe IV 25 ml PRN PRN Administration Hypoglycemia Epoetin Mitch 10,000 unit 07/26/19 10:10 07/30/19 19:19 Procrit IV 10,000 unit FAN PRN Administration hemodialysis Folic Acid 1 mg 07/27/19 10:00 07/31/19 13:33 Folvite PO 1 mg QDAY JOEL Administration Hydralazine HCl 10 mg 07/30/19 20:16 07/31/19 00:05 Apresoline IV 10 mg Q4HR PRN Administration Blood Pressure Hydroxychloroquine Sulfate 200 mg 07/27/19 10:00 07/31/19 13:33 Plaquenil PO 200 mg QDAY JOEL Administration Hydroxyzine HCl 50 mg 07/27/19 10:00 07/31/19 13:33 Atarax PO 50 mg QDAY JOEL Administration Sodium Chloride 100 mls @ 999 mls/hr 07/26/19 12:30 Nacl 0.9% IV FAN PRN Hypotension Cefepime HCl 1 gm in 100 mls @ 200 mls/hr 07/27/19 10:00 08/01/19 10:19 Maxipime/Ns 1 Gm/100 Ml IV 200 mls/hr Q24HR JOEL Administration Protocol Levetiracetam 500 mg/ Dextrose 105 mls @ 400 mls/hr 07/30/19 12:00 08/01/19 10:19 IV 400 mls/hr BID JOEL Administration Ampicillin Sodium 2 gm in 100 mls @ 100 mls/hr 08/01/19 14:00 Ampicillin/Ns 2 Gm/100 Ml IV Q12HR JOEL Vancomycin HCl 1,500 mg/ 530 mls @ 333.333 mls/hr 08/01/19 15:00 Sodium Chloride IV 08/01/19 16:35 ONCE ONE Labetalol HCl 300 mg 07/26/19 16:00 08/01/19 02:29 Normodyne PO Not Given BID JOEL Losartan Potassium 50 mg 07/27/19 10:00 07/31/19 13:42 Cozaar PO 50 mg QDAY JOEL Administration Morphine Sulfate 1 mg 07/29/19 15:49 07/29/19 23:18 Morphine IV 1 mg Q8H PRN Administration Pain, Moderate (4-6) Mycophenolate Mofetil 500 mg 07/27/19 10:00 07/31/19 13:34 Cellcept PO 500 mg QDAY JOEL Administration Ondansetron HCl 4 mg 07/29/19 23:31 07/29/19 23:44 Zofran IV 4 mg Q6H PRN Administration Nausea And Vomiting Oxycodone/Acetaminophen 1 tab 07/29/19 15:49 Percocet 5/325 PO Q8H PRN Pain, Moderate (4-6) Prednisone 20 mg 07/27/19 10:00 07/31/19 13:33 Deltasone PO 20 mg QDAY JOEL Administration Sevelamer Carbonate 800 mg 07/26/19 16:30 07/31/19 20:43 Renvela PO Not Given 0730,1630 JOEL Simple Syrup 15 ml 07/31/19 08:26 Simple Syrup FEEDTUBE PRN PRN Hypoglycemia Simple Syrup 30 ml 07/31/19 08:26 Simple Syrup FEEDTUBE PRN PRN Hypoglycemia Sodium Bicarbonate 325 mg 07/31/19 08:26 Sodium Bicarbonate FEEDTUBE PRN PRN For Clogged Feeding Tube Nutrition/Malnutrition Assess - Dietary Evaluation Nutrition/Malnutrition Findings: Nutrition Notes Start: 07/26/19 14:40 Freq: Status: Active Protocol: Document 07/31/19 08:58 LP (Rec: 07/31/19 09:02 LP [id number]) Nutrition Notes Need for Assessment generated from: MD Order Initial or Follow up Reassessment Current Diagnosis CKD (stage V CKD),Hypertension Other Pertinent Diagnosis on HD, MRSA, lupus, anemia, wounds Current Diet NPO Labs/Tests Reviewed Pertinent Medications Reviewed Height 5 ft 3 in Weight 78.29 kg [place] Body Weight (kg) 52.27 BMI 30.5 Subjective/Other Information Consult for TF. Pt not eating, very lethargic. Pt has dobhoff placed. Burn Absent Trauma Absent Minimum of two criteria No #2 Nutrition Diagnosis Increased nutrient needs ( specify in comment below) Diagnosis Progress(for reassessment Continues documentation) #1 Nutrition Diagnosis Inadequate oral intake As Evidenced by Signs and Symptoms Pt not eating and has dobhoff placed Diagnosis Progress(for reassessment Worsened documentation) Is patient on ventilator? No Is Patient Ambulatory and/or Out of Bed Yes REE-([place]-St. Jeor-ambulatory/OOB) [ 1913.639 [id number]] Calculation Used for Recommendations [place]-St Jeor Additional Notes PRO: 78-98g/day (1.2-1.5g/kg/ day AdBW 65kg) Fluid: 1-1.5L/day Nutrition Intervention Change Diet Order: TF Nutrition Support: Nepro at 45ml/hr Flush with 120ml q4h Kcal 1,944 Protein (gm) 87 Fluid (mL) 785 Add Supplement/Snack (indicate name/kcal D/C /protein ) Goal #1 Meet at least 80% of energy/ PRO needs via TF Goal #2 Wound healing Anticipated Discharge Needs: Unable to determine at this time Follow-Up By: 08/02/19 Additional Comments Follow for TF start/tolerance
[2019-08-01] MEDS: RENVELA PO SCH ×2 (18:28→18:29)
[2019-08-01] MEDS: CELLCEPT PO SCH (18:29)
[2019-08-01] MEDS: COZAAR PO SCH (18:29)
[2019-08-01] MEDS: DELTASONE PO SCH (18:29)
[2019-08-01] MEDS: VITAMIN B-12 PO SCH (18:29)
[2019-08-01] MEDS: ATARAX PO SCH (18:29)
[2019-08-01] MEDS: FOLVITE PO SCH (18:29)
[2019-08-01] MEDS: PLAQUENIL PO SCH (18:29)
[2019-08-02] MEDS ORDERED: NACL 0.9% 100 ML IV PRN (08:56)
[2019-08-02] MEDS: KEPPRA 500 MG in D5W 100 ML IV SCH ×2 (09:35→23:43)
[2019-08-02 09:36] LABS: Hematocrit 21.8 % (30.3-42.9); Hemoglobin 6.9 gm/dl (10.1-14.3); Mean Corpuscular HGB Conc 32 % (30-34); Mean Corpuscular Volume 76 fl (79-97); Red Blood Count 2.86 M/mm3 (3.65-5.03)
[2019-08-02] MEDS ORDERED: XYLOCAINE 1% 20 mL ONE (09:36)
[2019-08-02 09:42] LABS: Red Cell Distribution Width 29.5 % (13.2-15.2)
[2019-08-02] MEDS: MAXIPIME/NS 1 GM/100 ML 1 GM/100 ML BAG IV SCH (09:51)
[2019-08-02 09:55] LABS: Albumin 2.7 g/dL (3.9-5); Calcium 9.2 mg/dL (8.4-10.2)
--- NOTE | 2019-08-02 09:57 | Progress Note ---
Assessment and Plan - Patient Problems (1) End-stage renal disease needing dialysis Current Visit: Yes Status: Acute Plan to address problem: ESRD - on hemodialysis -access: left arm AVf - appears quite confused today - Will initiate HD today. (2) Leukocytosis Current Visit: Yes Status: Acute Qualifiers: Leukocytosis type: unspecified Qualified Code(s): D72.829 - Elevated white blood cell count, unspecified Plan to address problem: Leukocytosis :worsening . - Ct with pancreatitis - wound culture with E.coli. -blood cultures have been negative. -afebrile appreciate ID involvment -antibiotic spectrum has been broadened - Evaluation to rule out meningitis per ID. - on antibiotics. (3) Lupus Current Visit: Yes Status: Acute Plan to address problem: Lupus : Patient with seizures , agitation overnight , nausea , vomitting in the setting of associated pancreatitis . Serologies pending continue to monitor for Flare of underlying disease process. (4) Encephalopathy Current Visit: Yes Status: Acute Plan to address problem: Encephalopathy - history of seizures -received 2mg of ativan overnight - unclear if this is metabolic /rheumatologic / need to exclude infectious causes given leukocytosis -Given cefepime association with neurotoxicity may be reasonable to try to use a different antibiotic. Subjective Principal diagnosis: anemia, dizziness Interval history: 29 year old lady with SLE , ESRD on hemodialysis on Thursday, and Thursday via a left arm AVF admitted with complaints of seizures. Also interval developement of leukcytosis and abdominal CT with concern for pancreatitis . Patient seen today , confused, apparently became agitated overnight with nausea and vomitting and received 2mg of Ativan per nursing staff She remains confused today moaning, with non purposeful movements Dobhoff tube in place Left arm AVF MRI over the past 24hrs with no acute events. Objective - Vital Signs Vital signs: Vital Signs - 12hr 08/01/19 08/02/19 23:02 04:51 Temperature 98.7 F 98.7 F Pulse Rate 92 H 106 H Respiratory 20 22 Rate Blood Pressure 106/87 119/62 O2 Sat by Pulse 100 97 Oximetry - General Appearance General appearance: well-developed, well-nourished EENT: ATNC, PERRL, mucous membranes moist Neck: no JVD Respiratory: Present: Clear to Ascultation Cardiology: regular, S1S2 Gastrointestinal: normal, normoactive bowel sounds Integumentary: no rash Neurologic: confused Psychiatric: agitated - Lab 08/02/19 09:03 08/01/19 04:00 Most recent lab results Calcium 9.5 mg/dL (8.4-10.2) 08/01/19 04:00 Magnesium 2.00 mg/dL (1.7-2.3) 07/30/19 23:32 - Imaging Other: other (MRI without acute intracranial abnormality) Medications & Allergies - Medications Allergies/Adverse Reactions: Allergies lactose Adverse Reaction (Verified 07/29/19 08:16) Unknown Home Medications: Home Medications Medication Instructions Recorded Confirmed Last Taken Type Gabapentin 300 mg PO 3XW 11/14/18 07/26/19 07/25/19 History ALBUTEROL NEB's [Proventil] 2.5 mg IH QID PRN 07/26/19 07/26/19 07/25/19 History Amitriptyline [Elavil] 25 mg PO QHS 07/26/19 07/26/19 07/25/19 History Amitriptyline [Elavil] 25 mg PO QHS 07/26/19 07/26/19 07/25/19 History Cyanocobalamin (Vitamin B-12) 1,000 mcg PO QDAY 07/26/19 07/26/19 07/25/19 History [Vitamin B-12] Folic Acid [Folvite] 1 mg PO QDAY 07/26/19 07/26/19 07/25/19 History Hydroxychloroquine [Plaquenil] 200 mg PO QDAY 07/26/19 07/26/19 07/25/19 History Ibuprofen [Motrin] 800 mg PO Q8HR PRN 07/26/19 07/26/19 07/25/19 History Labetalol HCl [Labetalol 300mg TAB] 300 mg PO Q12H 07/26/19 07/26/19 07/25/19 History Losartan [Cozaar] 50 mg PO QDAY 07/26/19 07/26/19 07/25/19 History Mirtazapine 7.5 mg PO QDAY 07/26/19 07/26/19 07/25/19 History Mycophenolate [Cellcept] 500 mg PO QDAY 07/26/19 07/26/19 07/25/19 History Pantoprazole [Protonix] 40 mg PO BID 07/26/19 07/26/19 07/25/19 History Pregabalin [Lyrica] 25 mg PO QDAY 07/26/19 07/26/19 07/25/19 History Sevelamer HCl [Renagel] 800 mg PO BIDWM 07/26/19 07/26/19 07/25/19 History hydrOXYzine HCL [Atarax] 50 mg PO QDAY 07/26/19 07/26/19 07/25/19 History predniSONE [Deltasone] 20 mg PO QDAY 07/26/19 07/26/19 07/25/19 History Active Medications: Generic Name Dose Route Start Last Admin Trade Name Freq PRN Reason Stop Dose Admin Acetaminophen 650 mg 07/26/19 11:08 Tylenol PO Q6H PRN Pain, Mild (1-3) Albuterol 2.5 mg 07/26/19 15:39 Proventil IH QID PRN Wheezing Lipase/Protease/Amylase 1 each 07/31/19 08:26 Pancremarcella Diane 10,500 Unit FEEDTUBE PRN PRN For Clogged Feeding Tube Cyanocobalamin 1,000 mcg 07/27/19 10:00 08/01/19 18:29 Vitamin B-12 PO Not Given QDAY [facility] Dextrose 25 ml 07/26/19 11:06 07/26/19 12:32 D50w (25gm) Syringe IV 25 ml PRN PRN Administration Hypoglycemia Epoetin Mitch 10,000 unit 07/26/19 10:10 07/30/19 19:19 Procrit IV 10,000 unit FAN PRN Administration hemodialysis Folic Acid 1 mg 07/27/19 10:00 08/01/19 18:29 Folvite PO Not Given QDAY [facility] Hydralazine HCl 10 mg 07/30/19 20:16 07/31/19 00:05 Apresoline IV 10 mg Q4HR PRN Administration Blood Pressure Hydroxychloroquine Sulfate 200 mg 07/27/19 10:00 08/01/19 18:29 Plaquenil PO Not Given QDAY [facility] Hydroxyzine HCl 50 mg 07/27/19 10:00 08/01/19 18:29 Atarax PO Not Given QDAY [facility] Cefepime HCl 1 gm in 100 mls @ 200 mls/hr 07/27/19 10:00 08/02/19 09:51 Maxipime/Ns 1 Gm/100 Ml IV 200 mls/hr Q24HR JOEL Administration Protocol Levetiracetam 500 mg/ Dextrose 105 mls @ 400 mls/hr 07/30/19 12:00 08/02/19 09:35 IV 400 mls/hr BID JOEL Administration Ampicillin Sodium 2 gm in 100 mls @ 100 mls/hr 08/01/19 14:00 08/01/19 22:10 Ampicillin/Ns 2 Gm/100 Ml IV 100 mls/hr Q12HR JOEL Administration Sodium Chloride 100 mls @ 999 mls/hr 08/02/19 08:56 Nacl 0.9% IV FAN PRN Hypotension Labetalol HCl 300 mg 07/26/19 16:00 08/01/19 22:40 Normodyne PO Not Given BID [facility] Losartan Potassium 50 mg 07/27/19 10:00 08/01/19 18:29 Cozaar PO Not Given QDAY [facility] Morphine Sulfate 1 mg 07/29/19 15:49 07/29/19 23:18 Morphine IV 1 mg Q8H PRN Administration Pain, Moderate (4-6) Mycophenolate Mofetil 500 mg 07/27/19 10:00 08/01/19 18:29 Cellcept PO Not Given QDAY [facility] Ondansetron HCl 4 mg 07/29/19 23:31 07/29/19 23:44 Zofran IV 4 mg Q6H PRN Administration Nausea And Vomiting Oxycodone/Acetaminophen 1 tab 07/29/19 15:49 Percocet 5/325 PO Q8H PRN Pain, Moderate (4-6) Prednisone 20 mg 07/27/19 10:00 08/01/19 18:29 Deltasone PO Not Given QDAY [facility] Sevelamer Carbonate 800 mg 07/26/19 16:30 08/01/19 18:29 Renvela PO Not Given 0730,1630 JOEL Simple Syrup 15 ml 07/31/19 08:26 Simple Syrup FEEDTUBE PRN PRN Hypoglycemia Simple Syrup 30 ml 07/31/19 08:26 Simple Syrup FEEDTUBE PRN PRN Hypoglycemia Sodium Bicarbonate 325 mg 07/31/19 08:26 Sodium Bicarbonate FEEDTUBE PRN PRN For Clogged Feeding Tube
--- NOTE | 2019-08-02 11:12 | Gastroenterology Consultation ---
History of Present Illness - Reason for Consult Consult date: 08/02/19 acute pancreatitis Requesting physician: JUAN PABLO HICKEY - History of Present Illness Patient is a 29 y/o female with PMH of ESRD on HD, lupus (on plaquenil, cellcept and prednisone; immunocompromised host) , chronic pain syndrome, chronic anemia and MRSA infection who was admitted for severe sepsis with buttocks wound culture + for Escherichia coli, new onset seizures (CT/MRI negative; neurology following), malnutrition, and metabolic encephalopathy. Due to worsening leuko cytosis with seizures, she is pending a LP today r/o meningitis (on antibiotics; ID following). GI has been consulted for acute pancreatitis seen on abd CT with elevated lipase and coffee ground emesis. This morning patient was to be lethargic upon exam and unable to provide history (no family at bedside; history obtained via chart review). No active signs of bleeding overnight or this am per nursing with no further CGE, no melena, or no hematochezia. Currently tolerating TFs via Dobhoff w/o difficulty. Abdomen soft, nondistended but patient with noted grimacing upon palpation. Prior GI history unknown. Admitted to marijuana use upon admission, but no known ETOH abuse. Past History Past Medical History: ESRD, hypertension, other (Lupus) Past Surgical History: Other (left leg fracture, AV fistula, peripheral neuropathy) Social history: other (marijuana use). denies: smoking, alcohol abuse Family history: hypertension Medications and Allergies Allergies Allergy/AdvReac Type Severity Reaction Status Date / Time lactose AdvReac Unknown Verified 07/29/19 08:16 Home Medications Medication Instructions Recorded Confirmed Last Taken Type Gabapentin 300 mg PO 3XW 11/14/18 07/26/19 07/25/19 History ALBUTEROL NEB's [Proventil] 2.5 mg IH QID PRN 07/26/19 07/26/19 07/25/19 History Amitriptyline [Elavil] 25 mg PO QHS 07/26/19 07/26/19 07/25/19 History Amitriptyline [Elavil] 25 mg PO QHS 07/26/19 07/26/19 07/25/19 History Cyanocobalamin (Vitamin B-12) 1,000 mcg PO QDAY 07/26/19 07/26/19 07/25/19 History [Vitamin B-12] Folic Acid [Folvite] 1 mg PO QDAY 07/26/19 07/26/19 07/25/19 History Hydroxychloroquine [Plaquenil] 200 mg PO QDAY 07/26/19 07/26/19 07/25/19 History Ibuprofen [Motrin] 800 mg PO Q8HR PRN 07/26/19 07/26/19 07/25/19 History Labetalol HCl [Labetalol 300mg TAB] 300 mg PO Q12H 07/26/19 07/26/19 07/25/19 History Losartan [Cozaar] 50 mg PO QDAY 07/26/19 07/26/19 07/25/19 History Mirtazapine 7.5 mg PO QDAY 07/26/19 07/26/19 07/25/19 History Mycophenolate [Cellcept] 500 mg PO QDAY 07/26/19 07/26/19 07/25/19 History Pantoprazole [Protonix] 40 mg PO BID 07/26/19 07/26/19 07/25/19 History Pregabalin [Lyrica] 25 mg PO QDAY 07/26/19 07/26/19 07/25/19 History Sevelamer HCl [Renagel] 800 mg PO BIDWM 07/26/19 07/26/19 07/25/19 History hydrOXYzine HCL [Atarax] 50 mg PO QDAY 07/26/19 07/26/19 07/25/19 History predniSONE [Deltasone] 20 mg PO QDAY 07/26/19 07/26/19 07/25/19 History Active Meds: Active Medications Acetaminophen (Tylenol) 650 mg PO Q6H PRN PRN Reason: Pain, Mild (1-3) Albuterol (Proventil) 2.5 mg IH QID PRN PRN Reason: Wheezing Lipase/Protease/Amylase (Tu Diane 10,500 Unit) 1 each FEEDTUBE PRN PRN PRN Reason: For Clogged Feeding Tube Cyanocobalamin (Vitamin B-12) 1,000 mcg PO QDAY JOEL Last Admin: 08/01/19 18:29 Dose: Not Given Documented by: Dextrose (D50w (25gm) Syringe) 25 ml IV PRN PRN PRN Reason: Hypoglycemia Last Admin: 07/26/19 12:32 Dose: 25 ml Documented by: Epoetin Mitch (Procrit) 10,000 unit IV FAN PRN PRN Reason: hemodialysis Last Admin: 07/30/19 19:19 Dose: 10,000 unit Documented by: Folic Acid (Folvite) 1 mg PO QDAY [facility] Last Admin: 08/01/19 18:29 Dose: Not Given Documented by: Hydralazine HCl (Apresoline) 10 mg IV Q4HR PRN PRN Reason: Blood Pressure Last Admin: 07/31/19 00:05 Dose: 10 mg Documented by: Hydroxychloroquine Sulfate (Plaquenil) 200 mg PO QDAY [facility] Last Admin: 08/01/19 18:29 Dose: Not Given Documented by: Hydroxyzine HCl (Atarax) 50 mg PO QDAY [facility] Last Admin: 08/01/19 18:29 Dose: Not Given Documented by: Cefepime HCl (Maxipime/Ns 1 Gm/100 Ml) 1 gm in 100 mls @ 200 mls/hr IV Q24HR [facility]; Protocol Last Admin: 08/02/19 09:51 Dose: 200 mls/hr Documented by: Levetiracetam 500 mg/ Dextrose 105 mls @ 400 mls/hr IV BID [facility] Last Admin: 08/02/19 09:35 Dose: 400 mls/hr Documented by: Ampicillin Sodium (Ampicillin/Ns 2 Gm/100 Ml) 2 gm in 100 mls @ 100 mls/hr IV Q12HR [facility] Last Admin: 08/01/19 22:10 Dose: 100 mls/hr Documented by: Sodium Chloride (Nacl 0.9%) 100 mls @ 999 mls/hr IV FAN PRN PRN Reason: Hypotension Labetalol HCl (Normodyne) 300 mg PO BID [facility] Last Admin: 08/01/19 22:40 Dose: Not Given Documented by: Losartan Potassium (Cozaar) 50 mg PO QDAY [facility] Last Admin: 08/01/19 18:29 Dose: Not Given Documented by: Morphine Sulfate (Morphine) 1 mg IV Q8H PRN PRN Reason: Pain, Moderate (4-6) Last Admin: 07/29/19 23:18 Dose: 1 mg Documented by: Mycophenolate Mofetil (Cellcept) 500 mg PO QDAY [facility] Last Admin: 08/01/19 18:29 Dose: Not Given Documented by: Ondansetron HCl (Zofran) 4 mg IV Q6H PRN PRN Reason: Nausea And Vomiting Last Admin: 07/29/19 23:44 Dose: 4 mg Documented by: Oxycodone/Acetaminophen (Percocet 5/325) 1 tab PO Q8H PRN PRN Reason: Pain, Moderate (4-6) Prednisone (Deltasone) 20 mg PO QDAY [facility] Last Admin: 08/01/19 18:29 Dose: Not Given Documented by: Sevelamer Carbonate (Renvela) 800 mg PO 0730,1630 [facility] Last Admin: 08/01/19 18:29 Dose: Not Given Documented by: Simple Syrup (Simple Syrup) 15 ml FEEDTUBE PRN PRN PRN Reason: Hypoglycemia Simple Syrup (Simple Syrup) 30 ml FEEDTUBE PRN PRN PRN Reason: Hypoglycemia Sodium Bicarbonate (Sodium Bicarbonate) 325 mg FEEDTUBE PRN PRN PRN Reason: For Clogged Feeding Tube medications reviewed/updated as required Review of Systems - Review of Systems ROS unobtainable: due to mental status Exam - Constitutional Vital Signs: Temp Pulse Resp BP Pulse Ox 98.7 F 106 H 22 119/62 97 08/02/19 04:51 08/02/19 04:51 08/02/19 04:51 08/02/19 04:51 08/02/19 04:51 General appearance: mild distress, other (lethargic) - EENT ENT: other (+dobhoff) - Respiratory Respiratory effort: normal - Cardiovascular Rhythm: other (tachycardia) - Gastrointestinal General gastrointestinal: Present: soft, non-distended, normal bowel sounds - Neurologic Neurological: disoriented - Labs CBC & Chem 7: 08/02/19 09:03 08/02/19 09:03 Lab Results: Laboratory Results - last 24 hr 08/01/19 08/01/19 08/02/19 13:17 Unknown 09:03 WBC 45.4 H* RBC 2.86 L Hgb 6.9 L Hct 21.8 L MCV 76 L MCH 24 L MCHC 32 RDW 29.5 H Plt Count 185 Lymph # [employer] Pathologist Review WBC Morphology Not Reportable Sodium Potassium Chloride Carbon Dioxide Anion Gap BUN Creatinine Estimated GFR BUN/Creatinine Ratio Glucose Calcium Total Bilirubin AST ALT Alkaline Phosphatase C-Reactive Protein 55.00 H Total Protein Albumin Albumin/Globulin Ratio 08/02/19 09:03 WBC RBC Hgb Hct MCV MCH MCHC RDW Plt Count Lymph # Pathologist Review WBC Morphology Sodium 147 H Potassium 5.5 H Chloride 99.2 Carbon Dioxide 23 Anion Gap 30 BUN 118 H Creatinine 9.9 H Estimated GFR 6 BUN/Creatinine Ratio 12 Glucose 122 H Calcium 9.2 Total Bilirubin 0.50 AST 37 ALT 16 Alkaline Phosphatase 91 C-Reactive Protein Total Protein 6.2 L Albumin 2.7 L Albumin/Globulin Ratio 0.8 Assessment and Plan 1.pancreatitis -lipase 241 -LFTs WNL -abd CT showed generalized edema is noted throughout the pancreas with surroun ding moderate inflammation (no distinct pancreatic lesion; no acute GI tract abnormality) -etiology unclear- sepsis vs medication vs other -Keep NPO for now except meds -abd U/S -triglyceride level in am -continue antibiotics -continue to trend labs and supportive care (IVF, pain control, antiemetics, etc.) 2.coffee ground emesis 3.acute on chronic anemia -1 episode CGE yesterday per nursing; no further signs of bleeding overnight or this am; No hematemesis, melena, or hematochezia -no plan for scope at this time unless overt bleeding develops (patient currently critically ill with no significant clinical evidence of GI bleeding) -stool occult and iron studies in am -start on PPI -supportive care -will follow 3.acute sepsis/wound infection right buttocks -worsening leukocytosis -would culture +Escherichia coli -on antibiotics; ID following -LP pending for today r/o meningitis 4.new onset seizures -CT/MRI negative; neurology following 5Metabolic encephalopathy 6.lupus -on plaquenil, cellcept and prednisone -Immunocompromised host 7.ESRD on HD 8.Moderate malnutrition/hypoalbuminemia -TFs vis Dobhoff
--- NOTE | 2019-08-02 11:23 | Procedure Note ---
Date of procedure: 08/02/19 Pre-op diagnosis: AMS, seizures Post-op diagnosis: same Procedure: lumbar puncture under flouroscopy Findings: none Anesthesia: local Surgeon: CLEMENTINA NEVAREZ Estimated blood loss: none Pathology: list (4 csf tubes) Specimen disposition: to lab Condition: stable Disposition: floor
[2019-08-02 11:35] LABS: Anisocytosis 1+; Hypochromasia 2+; Target Cells 1+
[2019-08-02 11:36] LABS: Platelet Estimate Consistent w Auto
[2019-08-02 11:38] LABS: Band Neutrophils # (Manual) 3.6 K/mm3; Basophils % (Manual) 0 % (0.0-1.8); Eosinophils % (Manual) 0 % (0.0-4.3); Monocytes % (Manual) 0 % (0.0-7.3); Myelocytes # (Manual) 0.5 K/mm3; Total Cells Counted 100
[2019-08-02] MEDS ORDERED: NACL 0.9% 500 ML 500 ML IV NR (11:48)
--- NOTE | 2019-08-02 11:53 | Progress Note ---
Assessment and Plan Assessment and plan: 29-year-old -[place] female patient with significant past medical history of end-stage renal disease on hemodialysis lupus chronic pain syndrome history of MRSA infection in the past was admitted through emergency room with bilateral lower extremity cramping burning sensation hyperkalemia fluid overload fevers, treated empirically with antibiotics received hemodialysis per schedule, Wound cultures positive for Escherichia coli on appropriate antibiotics Patient developed new onset seizures on 07/30/2019, received Keppra and Ativan Evaluated by neurology, CT head negative, patient remained Lethargic noncommunicative since first episode of seizure ,MRI done today was negative for acute abnormalities, consulted second neurologist For second opinion And also has Persistent leukocytosis, ID evaluated, ordered C. difficile. Lumbar puncture[pending] She is noted to have acute pancreatitis, coffee ground emesis, consulted GI today * Obtain CT abdomen and pelvis with IV and PO contrast, discussed with Seed [employer] Manager Production * Transfuse 2 unit of PRBC with dialysis today * Follow cultures * Check lactate level * Transfer to IMCU, May need ICU care if no improvement --New onset seizures : On Keppra, Seizure precautions, Follow EEG, CT head negative for acute abnormality MRI brain no acute abnormalities . Neurology following --Severe Metabolic encephalopathy; multifactorial Sepsis, seizures, acute pancreatitis --Persistent leukocytosis; altered level of consciousness Escherichia coli sepsis Continue cefepime ?Reactive vs from acute pancreatitis C. difficile, lumbar puncture recommended by ID --Acute pancreatitis on CT/elevated lipase Continue supportive care, GI consulted --Episode of Coffee-ground emesis; closely monitor H&H GI consult. Give additional 2 units PRBC for a total of 4 units --History of lupus; resume home medications Possible flareup, monitor --Sepsis; Escherichia coli wound infection IV antibiotics, supportive care --Hypotension; fluid bolus 250 ml NS, as needed If no improvement, consider vasopressors and transferred to ICU --Hyperkalemia; resolved secondary to end-stage renal disease --End-stage renal disease; on hemodialysis HD per schedule, nephrology --Moderate malnutrition/hypoalbuminemia; Dobbhoff placement Tube feeding per protocol --DVT prophylaxis; Lovenox renal dose Plan of care reviewed with the patient's nurse D/W Family members yesterday over the phone, update them as needed I called the patient's sister/next of kin Mariya Painting at [phone] Disposition; patient is critically ill, follow multiple securities consultant's Evaluations and recommendations The high probability of a clinically significant, sudden or life threatening deterioration of the [NEURO, RENAL, GI] system(s) required my full and direct attention, intervention and personal management. The aggregate critical care time was [35] minutes. This time is in addition to time spent performing reported procedures but includes the following: [X] Data Review and interpretation [X] Patient assessment and monitoring of vital signs [X] Documentation [X] Medication orders and management History Interval history: Patient seen and examined, remains altered, unable to provide any information, warm to the touch. Hospitalist Physical - Physical exam Narrative exam: General appearance: Present: mild distress, well-nourished, obese, other (uncommunicative, lethargic, responds only to deep stimuli), non purposeful movement - EENT Eyes: Present: PERRL, EOM intact - Neck Neck: Present: supple, normal ROM - Respiratory Respiratory effort: normal Respiratory: bilateral: diminished, rales, negative: rhonchi, wheezing - Cardiovascular Rhythm: regular Heart Sounds: Present: S1 & S2 - Extremities Extremities: no ischemia, No edema - Abdominal General gastrointestinal: soft, Tenderness, grones on touch but again on other parts of the body, non-distended, normal bowel sounds - Integumentary Integumentary: Present: clear, warm - Psychiatric Psychiatric: other (unresponsive) - Neurologic Neurologic: other (unresponsive) - Constitutional Vitals: Temp Pulse Resp BP Pulse Ox 98.7 F 106 H 22 119/62 97 08/02/19 04:51 08/02/19 04:51 08/02/19 04:51 08/02/19 04:51 08/02/19 04:51 General appearance: Present: mild distress, well-nourished, obese, other (uncommunicative, lethargic, responds only to deep stimuli) Results - Labs CBC & Chem 7: 08/02/19 09:03 08/02/19 09:03 Labs: Laboratory Last Values WBC 45.4 K/mm3 (4.5-11.0) H* 08/02/19 09:03 RBC 2.86 M/mm3 (3.65-5.03) L 08/02/19 09:03 Hgb 6.9 gm/dl (10.1-14.3) L 08/02/19 09:03 Hct 21.8 % (30.3-42.9) L 08/02/19 09:03 MCV 76 fl (79-97) L 08/02/19 09:03 MCH 24 pg (28-32) L 08/02/19 09:03 MCHC 32 % (30-34) 08/02/19 09:03 RDW 29.5 % (13.2-15.2) H 08/02/19 09:03 Plt Count 185 K/mm3 (140-440) 08/01/19 Unknown Lymph # Assistant Professor Of Spanish 08/02/19 09:03 Add Manual Diff Complete 08/02/19 09:03 Total Counted 100 08/02/19 09:03 Seg Neuts % (Manual) 86.0 % (40.0-70.0) H 08/02/19 09:03 Band Neutrophils % 8.0 % 08/02/19 09:03 Lymphocytes % (Manual) 3.0 % (13.4-35.0) L 08/02/19 09:03 Reactive Lymphs % (Man) 0 % 08/02/19 09:03 Monocytes % (Manual) 0 % (0.0-7.3) 08/02/19 09:03 Eosinophils % (Manual) 0 % (0.0-4.3) 08/02/19 09:03 Basophils % (Manual) 0 % (0.0-1.8) 08/02/19 09:03 Metamyelocytes % 2.0 % 08/02/19 09:03 Myelocytes % 1.0 % 08/02/19 09:03 Promyelocytes % 0 % 08/02/19 09:03 Blast Cells % 0 % 08/02/19 09:03 Nucleated RBC % Not Reportable 08/02/19 09:03 Seg Neutrophils # Man 39.0 K/mm3 (1.8-7.7) H 08/02/19 09:03 Band Neutrophils # 3.6 K/mm3 08/02/19 09:03 Lymphocytes # (Manual) 1.4 K/mm3 (1.2-5.4) 08/02/19 09:03 Abs React Lymphs (Man) 0.0 K/mm3 08/02/19 09:03 Monocytes # (Manual) 0.0 K/mm3 (0.0-0.8) 08/02/19 09:03 Eosinophils # (Manual) 0.0 K/mm3 (0.0-0.4) 08/02/19 09:03 Basophils # (Manual) 0.0 K/mm3 (0.0-0.1) 08/02/19 09:03 Metamyelocytes # 0.9 K/mm3 08/02/19 09:03 Myelocytes # 0.5 K/mm3 08/02/19 09:03 Promyelocytes # 0.0 K/mm3 08/02/19 09:03 Blast Cells # 0.0 K/mm3 08/02/19 09:03 Pathologist Review 08/01/19 Unknown WBC Morphology Not Reportable 08/02/19 09:03 Hypersegmented Neuts Not Reportable 08/02/19 09:03 Hyposegmented Neuts Not Reportable 08/02/19 09:03 Hypogranular Neuts Not Reportable 08/02/19 09:03 Smudge Cells Not Reportable 08/02/19 09:03 Toxic Granulation Not Reportable 08/02/19 09:03 Toxic Vacuolation Not Reportable 08/02/19 09:03 Dohle Bodies Not Reportable 08/02/19 09:03 Pelger-Huet Anomaly Not Reportable 08/02/19 09:03 Rose Rods Not Reportable 08/02/19 09:03 Platelet Estimate Consistent w auto 08/02/19 09:03 Clumped Platelets Not Reportable 08/02/19 09:03 Plt Clumps, EDTA Not Reportable 08/02/19 09:03 Large Platelets Not Reportable 08/02/19 09:03 Giant Platelets Not Reportable 08/02/19 09:03 Platelet Satelliting Not Reportable 08/02/19 09:03 Plt Morphology Comment Not Reportable 08/02/19 09:03 RBC Morphology Not Reportable 08/02/19 09:03 Dimorphic RBCs Not Reportable 08/02/19 09:03 Polychromasia Not Reportable 08/02/19 09:03 Hypochromasia 2+ 08/02/19 09:03 Poikilocytosis Not Reportable 08/02/19 09:03 Anisocytosis 1+ 08/02/19 09:03 Microcytosis Not Reportable 08/02/19 09:03 Macrocytosis Not Reportable 08/02/19 09:03 Spherocytes Not Reportable 08/02/19 09:03 Pappenheimer Bodies Not Reportable 08/02/19 09:03 Sickle Cells Not Reportable 08/02/19 09:03 Target Cells 1+ 08/02/19 09:03 Tear Drop Cells Not Reportable 08/02/19 09:03 Ovalocytes Not Reportable 08/02/19 09:03 Helmet Cells Not Reportable 08/02/19 09:03 Benavidez-Hockessin Bodies Not Reportable 08/02/19 09:03 [place] Rings Not Reportable 08/02/19 09:03 Bk Cells Not Reportable 08/02/19 09:03 Bite Cells Not Reportable 08/02/19 09:03 Crenated Cell Not Reportable 08/02/19 09:03 Elliptocytes Not Reportable 08/02/19 09:03 Acanthocytes (Spur) Not Reportable 08/02/19 09:03 Rouleaux Not Reportable 08/02/19 09:03 Hemoglobin C Crystals Not Reportable 08/02/19 09:03 Schistocytes Not Reportable 08/02/19 09:03 Malaria parasites Not Reportable 08/02/19 09:03 ESR 78 mm/Hr (0-20) 07/26/19 05:25 Dinesh Bodies Not Reportable 08/02/19 09:03 Hem Pathologist Commnt Sent to pathology 08/02/19 09:03 PT 16.7 Sec. (12.2-14.9) H 07/26/19 06:31 INR 1.39 (0.87-1.13) H 07/26/19 06:31 APTT 41.1 Sec. (24.2-36.6) H 07/26/19 06:31 Sodium 147 mmol/L (137-145) H 08/02/19 09:03 Potassium 5.5 mmol/L (3.6-5.0) H 08/02/19 09:03 Chloride 99.2 mmol/L (98-107) 08/02/19 09:03 Carbon Dioxide 23 mmol/L (22-30) 08/02/19 09:03 Anion Gap 30 mmol/L 08/02/19 09:03 BUN 118 mg/dL (7-17) H 08/02/19 09:03 Creatinine 9.9 mg/dL (0.7-1.2) H 08/02/19 09:03 Estimated GFR 6 ml/min 08/02/19 09:03 BUN/Creatinine Ratio 12 % 08/02/19 09:03 Glucose 122 mg/dL (65-100) H 08/02/19 09:03 POC Glucose 99 (70-105) 07/30/19 11:06 Lactic Acid 1.10 mmol/L (0.7-2.0) 07/26/19 06:31 Calcium 9.2 mg/dL (8.4-10.2) 08/02/19 09:03 Magnesium 2.00 mg/dL (1.7-2.3) 07/30/19 23:32 Total Bilirubin 0.50 mg/dL (0.1-1.2) 08/02/19 09:03 Direct Bilirubin < 0.2 mg/dL (0-0.2) 07/26/19 06:31 Indirect Bilirubin 0.1 mg/dL 07/26/19 06:31 AST 37 units/L (5-40) 08/02/19 09:03 ALT 16 units/L (7-56) 08/02/19 09:03 Alkaline Phosphatase 91 units/L (35-129) 08/02/19 09:03 Total Creatine Kinase 43 units/L (30-135) 07/26/19 05:25 Troponin T 0.072 ng/mL (0.00-0.029) H 07/26/19 06:31 C-Reactive Protein 55.00 mg/dL (0.00-1.30) H 08/01/19 13:17 NT-Pro-B Natriuret Pep 20863 pg/mL (0-450) H 07/26/19 06:31 Total Protein 6.2 g/dL (6.3-8.2) L 08/02/19 09:03 Albumin 2.7 g/dL (3.9-5) L 08/02/19 09:03 Albumin/Globulin Ratio 0.8 % 08/02/19 09:03 Triglycerides 170 mg/dL (2-149) H 07/26/19 06:31 Cholesterol 91 mg/dL (50-199) 07/26/19 06:31 LDL Cholesterol Direct 30 mg/dL (50-130) L 07/26/19 06:31 HDL Cholesterol 25 mg/dL (40-59) L 07/26/19 06:31 Cholesterol/HDL Ratio 3.64 % 07/26/19 06:31 Amylase 834 units/L (27-131) H 08/01/19 04:00 Lipase 241 units/L (13-60) H 08/01/19 04:00 HCG, Qual Negative (Negative) 07/30/19 02:40 HCG, Quant < 2 mIU/mL (0-4) 07/26/19 05:25 Random Vancomycin 14.9 ug/mL (0-40.0) 07/28/19 07:01 RPR Nonreactive (Nonreactive) 07/26/19 05:25 Hepatitis A IgM Ab Non-reactive (NonReactive) 07/26/19 10:53 Hep Bs Antigen Non-reactive (Negative) 07/26/19 10:53 Hep B Core IgM Ab Non-reactive (NonReactive) 07/26/19 10:53 Hepatitis C Antibody Non-reactive (NonReactive) 07/26/19 10:53 Blood Type A POSITIVE 07/26/19 06:33 Antibody Screen Negative 07/26/19 06:33 Crossmatch See Detail 07/26/19 06:33 Active Medications - Current Medications Current Medications: Generic Name Dose Route Start Last Admin Trade Name Carie PRN Reason Stop Dose Admin Acetaminophen 650 mg 07/26/19 11:08 Tylenol PO Q6H PRN Pain, Mild (1-3) Albuterol 2.5 mg 07/26/19 15:39 Proventil IH QID PRN Wheezing Lipase/Protease/Amylase 1 each 07/31/19 08:26 Pancremarcella Diane 10,500 Unit FEEDTUBE PRN PRN For Clogged Feeding Tube Cyanocobalamin 1,000 mcg 07/27/19 10:00 08/01/19 18:29 Vitamin B-12 PO Not Given QDAY JOEL Dextrose 25 ml 07/26/19 11:06 07/26/19 12:32 D50w (25gm) Syringe IV 25 ml PRN PRN Administration Hypoglycemia Epoetin Mitch 10,000 unit 07/26/19 10:10 07/30/19 19:19 Procrit IV 10,000 unit FAN PRN Administration hemodialysis Folic Acid 1 mg 07/27/19 10:00 08/01/19 18:29 Folvite PO Not Given QDAY [facility] Hydralazine HCl 10 mg 07/30/19 20:16 07/31/19 00:05 Apresoline IV 10 mg Q4HR PRN Administration Blood Pressure Hydroxychloroquine Sulfate 200 mg 07/27/19 10:00 08/01/19 18:29 Plaquenil PO Not Given QDAY [facility] Hydroxyzine HCl 50 mg 07/27/19 10:00 08/01/19 18:29 Atarax PO Not Given QDAY [facility] Cefepime HCl 1 gm in 100 mls @ 200 mls/hr 07/27/19 10:00 08/02/19 09:51 Maxipime/Ns 1 Gm/100 Ml IV 200 mls/hr Q24HR JOEL Administration Protocol Levetiracetam 500 mg/ Dextrose 105 mls @ 400 mls/hr 07/30/19 12:00 08/02/19 09:35 IV 400 mls/hr BID JOEL Administration Ampicillin Sodium 2 gm in 100 mls @ 100 mls/hr 08/01/19 14:00 08/01/19 22:10 Ampicillin/Ns 2 Gm/100 Ml IV 100 mls/hr Q12HR JOEL Administration Sodium Chloride 100 mls @ 999 mls/hr 08/02/19 08:56 Nacl 0.9% IV FAN PRN Hypotension Sodium Chloride 500 mls @ 0 mls/hr 08/02/19 11:48 Nacl 0.9% 500 Ml IV 08/02/19 11:49 ONCE ONE As Directed Labetalol HCl 300 mg 07/26/19 16:00 08/01/19 22:40 Normodyne PO Not Given BID [facility] Losartan Potassium 50 mg 07/27/19 10:00 08/01/19 18:29 Cozaar PO Not Given QDAY [facility] Morphine Sulfate 1 mg 07/29/19 15:49 07/29/19 23:18 Morphine IV 1 mg Q8H PRN Administration Pain, Moderate (4-6) Mycophenolate Mofetil 500 mg 07/27/19 10:00 08/01/19 18:29 Cellcept PO Not Given QDAY [facility] Ondansetron HCl 4 mg 07/29/19 23:31 07/29/19 23:44 Zofran IV 4 mg Q6H PRN Administration Nausea And Vomiting Oxycodone/Acetaminophen 1 tab 07/29/19 15:49 Percocet 5/325 PO Q8H PRN Pain, Moderate (4-6) Prednisone 20 mg 07/27/19 10:00 08/01/19 18:29 Deltasone PO Not Given QDAY JOEL Sevelamer Carbonate 800 mg 07/26/19 16:30 08/01/19 18:29 Renvela PO Not Given 0730,1630 JOEL Simple Syrup 15 ml 07/31/19 08:26 Simple Syrup FEEDTUBE PRN PRN Hypoglycemia Simple Syrup 30 ml 07/31/19 08:26 Simple Syrup FEEDTUBE PRN PRN Hypoglycemia Sodium Bicarbonate 325 mg 07/31/19 08:26 Sodium Bicarbonate FEEDTUBE PRN PRN For Clogged Feeding Tube Nutrition/Malnutrition Assess - Dietary Evaluation Nutrition/Malnutrition Findings: Nutrition Notes Start: 07/26/19 14:40 Freq: Status: Active Protocol: Document 07/31/19 08:58 LP (Rec: 07/31/19 09:02 LP [email or web address]) Nutrition Notes Need for Assessment generated from: MD Order Initial or Follow up Reassessment Current Diagnosis CKD (stage V CKD),Hypertension Other Pertinent Diagnosis on HD, MRSA, lupus, anemia, wounds Current Diet NPO Labs/Tests Reviewed Pertinent Medications Reviewed Height 5 ft 3 in Weight 78.29 kg [place] Body Weight (kg) 52.27 BMI 30.5 Subjective/Other Information Consult for TF. Pt not eating, very lethargic. Pt has dobhoff placed. Burn Absent Trauma Absent Minimum of two criteria No #2 Nutrition Diagnosis Increased nutrient needs ( specify in comment below) Diagnosis Progress(for reassessment Continues documentation) #1 Nutrition Diagnosis Inadequate oral intake As Evidenced by Signs and Symptoms Pt not eating and has dobhoff placed Diagnosis Progress(for reassessment Worsened documentation) Is patient on ventilator? No Is Patient Ambulatory and/or Out of Bed Yes REE-([facility]-ambulatory/OOB) [ [id number] [id number]] Calculation Used for Recommendations [facility] Additional Notes PRO: 78-98g/day (1.2-1.5g/kg/ day AdBW 65kg) Fluid: 1-1.5L/day Nutrition Intervention Change Diet Order: TF Nutrition Support: Nepro at 45ml/hr Flush with 120ml q4h Kcal 1,944 Protein (gm) 87 Fluid (mL) 785 Add Supplement/Snack (indicate name/kcal D/C /protein ) Goal #1 Meet at least 80% of energy/ PRO needs via TF Goal #2 Wound healing Anticipated Discharge Needs: Unable to determine at this time Follow-Up By: 08/02/19 Additional Comments Follow for TF start/tolerance
[2019-08-02 11:56] LABS: Appearance,CSF Clear; Red Blood Cell,CSF 0 /mm3 (0-0); White Blood Cell,CSF 0 /mm3 (1-10)
[2019-08-02 12:25] LABS: Basophils CSF 0 %; Total Cells Counted 0 /mm3
--- NOTE | 2019-08-02 12:30 | Consultation ---
Past History Past Medical History: ESRD, hypertension, other (Lupus) Past Surgical History: Other (left leg fracture, AV fistula, peripheral neuropathy) Social history: other (marijuana use). denies: smoking, alcohol abuse Family history: hypertension Medications and Allergies Allergies Allergy/AdvReac Type Severity Reaction Status Date / Time lactose AdvReac Unknown Verified 07/29/19 08:16 Home Medications Medication Instructions Recorded Confirmed Last Taken Type Gabapentin 300 mg PO 3XW 11/14/18 07/26/19 07/25/19 History ALBUTEROL NEB's [Proventil] 2.5 mg IH QID PRN 07/26/19 07/26/19 07/25/19 History Amitriptyline [Elavil] 25 mg PO QHS 07/26/19 07/26/19 07/25/19 History Amitriptyline [Elavil] 25 mg PO QHS 07/26/19 07/26/19 07/25/19 History Cyanocobalamin (Vitamin B-12) 1,000 mcg PO QDAY 07/26/19 07/26/19 07/25/19 History [Vitamin B-12] Folic Acid [Folvite] 1 mg PO QDAY 07/26/19 07/26/19 07/25/19 History Hydroxychloroquine [Plaquenil] 200 mg PO QDAY 07/26/19 07/26/19 07/25/19 History Ibuprofen [Motrin] 800 mg PO Q8HR PRN 07/26/19 07/26/19 07/25/19 History Labetalol HCl [Labetalol 300mg TAB] 300 mg PO Q12H 07/26/19 07/26/19 07/25/19 History Losartan [Cozaar] 50 mg PO QDAY 07/26/19 07/26/19 07/25/19 History Mirtazapine 7.5 mg PO QDAY 07/26/19 07/26/19 07/25/19 History Mycophenolate [Cellcept] 500 mg PO QDAY 07/26/19 07/26/19 07/25/19 History Pantoprazole [Protonix] 40 mg PO BID 07/26/19 07/26/19 07/25/19 History Pregabalin [Lyrica] 25 mg PO QDAY 07/26/19 07/26/19 07/25/19 History Sevelamer HCl [Renagel] 800 mg PO BIDWM 07/26/19 07/26/19 07/25/19 History hydrOXYzine HCL [Atarax] 50 mg PO QDAY 07/26/19 07/26/19 07/25/19 History predniSONE [Deltasone] 20 mg PO QDAY 07/26/19 07/26/19 07/25/19 History Active Meds: Active Medications Acetaminophen (Tylenol) 650 mg PO Q6H PRN PRN Reason: Pain, Mild (1-3) Albuterol (Proventil) 2.5 mg IH QID PRN PRN Reason: Wheezing Lipase/Protease/Amylase (Pancreaze Dr 10,500 Unit) 1 each FEEDTUBE PRN PRN PRN Reason: For Clogged Feeding Tube Cyanocobalamin (Vitamin B-12) 1,000 mcg PO QDAY [facility] Last Admin: 08/01/19 18:29 Dose: Not Given Documented by: Dextrose (D50w (25gm) Syringe) 25 ml IV PRN PRN PRN Reason: Hypoglycemia Last Admin: 07/26/19 12:32 Dose: 25 ml Documented by: Epoetin Mitch (Procrit) 10,000 unit IV FAN PRN PRN Reason: hemodialysis Last Admin: 07/30/19 19:19 Dose: 10,000 unit Documented by: Folic Acid (Folvite) 1 mg PO QDAY [facility] Last Admin: 08/01/19 18:29 Dose: Not Given Documented by: Hydralazine HCl (Apresoline) 10 mg IV Q4HR PRN PRN Reason: Blood Pressure Last Admin: 07/31/19 00:05 Dose: 10 mg Documented by: Hydroxychloroquine Sulfate (Plaquenil) 200 mg PO QDAY [facility] Last Admin: 08/01/19 18:29 Dose: Not Given Documented by: Hydroxyzine HCl (Atarax) 50 mg PO QDAY [facility] Last Admin: 08/01/19 18:29 Dose: Not Given Documented by: Cefepime HCl (Maxipime/Ns 1 Gm/100 Ml) 1 gm in 100 mls @ 200 mls/hr IV Q24HR [facility]; Protocol Last Admin: 08/02/19 09:51 Dose: 200 mls/hr Documented by: Levetiracetam 500 mg/ Dextrose 105 mls @ 400 mls/hr IV BID [facility] Last Admin: 08/02/19 09:35 Dose: 400 mls/hr Documented by: Ampicillin Sodium (Ampicillin/Ns 2 Gm/100 Ml) 2 gm in 100 mls @ 100 mls/hr IV Q12HR [facility] Last Admin: 08/01/19 22:10 Dose: 100 mls/hr Documented by: Sodium Chloride (Nacl 0.9%) 100 mls @ 999 mls/hr IV FAN PRN PRN Reason: Hypotension Sodium Chloride (Nacl 0.9% 500 Ml) 500 mls @ 0 mls/hr IV ONCE NR Stop: 08/03/19 11:47 Labetalol HCl (Normodyne) 300 mg PO BID [facility] Last Admin: 08/01/19 22:40 Dose: Not Given Documented by: Losartan Potassium (Cozaar) 50 mg PO QDAY [facility] Last Admin: 08/01/19 18:29 Dose: Not Given Documented by: Morphine Sulfate (Morphine) 1 mg IV Q8H PRN PRN Reason: Pain, Moderate (4-6) Last Admin: 07/29/19 23:18 Dose: 1 mg Documented by: Mycophenolate Mofetil (Cellcept) 500 mg PO QDAY [facility] Last Admin: 08/01/19 18:29 Dose: Not Given Documented by: Ondansetron HCl (Zofran) 4 mg IV Q6H PRN PRN Reason: Nausea And Vomiting Last Admin: 07/29/19 23:44 Dose: 4 mg Documented by: Oxycodone/Acetaminophen (Percocet 5/325) 1 tab PO Q8H PRN PRN Reason: Pain, Moderate (4-6) Prednisone (Deltasone) 20 mg PO QDAY [facility] Last Admin: 08/01/19 18:29 Dose: Not Given Documented by: Sevelamer Carbonate (Renvela) 800 mg PO 0730,1630 [facility] Last Admin: 08/01/19 18:29 Dose: Not Given Documented by: Simple Syrup (Simple Syrup) 15 ml FEEDTUBE PRN PRN PRN Reason: Hypoglycemia Simple Syrup (Simple Syrup) 30 ml FEEDTUBE PRN PRN PRN Reason: Hypoglycemia Sodium Bicarbonate (Sodium Bicarbonate) 325 mg FEEDTUBE PRN PRN PRN Reason: For Clogged Feeding Tube Physical Examination - Vital Signs Vital Signs: Vital Signs Temp Pulse Resp BP Pulse Ox 99.8 F H 118 H 20 127/79 99 07/26/19 04:00 07/26/19 04:00 07/26/19 04:00 07/26/19 04:00 07/26/19 04:00 Results - Laboratory Findings CBC and BMP: 08/02/19 09:03 08/02/19 09:03 Abnormal Lab Findings: Abnormal Labs 07/26/19 07/26/19 07/26/19 05:25 05:25 05:25 WBC 28.2 H RBC 3.24 L Hgb 6.9 L Hct 23.2 L MCV 72 L MCH 21 L RDW 36.5 H Seg Neuts % (Manual) 80.0 H Lymphocytes % (Manual) Nucleated RBC % Seg Neutrophils # Man 22.6 H Lymphocytes # (Manual) Monocytes # (Manual) 1.4 H PT 16.6 H INR 1.38 H APTT 39.7 H Sodium 135 L Potassium 6.2 H* Chloride 95.7 L Carbon Dioxide 18 L BUN 71 H Creatinine 16.8 H Glucose POC Glucose AST ALT < 5 L Troponin T C-Reactive Protein NT-Pro-B Natriuret Pep Total Protein Albumin 3.3 L Triglycerides LDL Cholesterol Direct HDL Cholesterol Amylase Lipase Crossmatch 07/26/19 07/26/19 07/26/19 06:31 06:31 06:33 WBC RBC Hgb Hct MCV MCH RDW Seg Neuts % (Manual) Lymphocytes % (Manual) Nucleated RBC % Seg Neutrophils # Man Lymphocytes # (Manual) Monocytes # (Manual) PT 16.7 H INR 1.39 H APTT 41.1 H Sodium Potassium Chloride Carbon Dioxide BUN Creatinine Glucose POC Glucose AST < 5 L ALT < 5 L Troponin T 0.072 H C-Reactive Protein NT-Pro-B Natriuret Pep 38035 H Total Protein Albumin 3.2 L Triglycerides 170 H LDL Cholesterol Direct 30 L HDL Cholesterol 25 L Amylase Lipase Crossmatch See Detail 07/26/19 07/26/19 07/26/19 07:25 07:59 09:55 WBC RBC Hgb Hct MCV MCH RDW Seg Neuts % (Manual) Lymphocytes % (Manual) Nucleated RBC % Seg Neutrophils # Man Lymphocytes # (Manual) Monocytes # (Manual) PT INR APTT Sodium Potassium Chloride Carbon Dioxide BUN Creatinine Glucose POC Glucose 54 L 150 H 41 L AST ALT Troponin T C-Reactive Protein NT-Pro-B Natriuret Pep Total Protein Albumin Triglycerides LDL Cholesterol Direct HDL Cholesterol Amylase Lipase Crossmatch 07/26/19 07/26/19 07/26/19 10:33 10:53 11:31 WBC RBC Hgb Hct MCV MCH RDW Seg Neuts % (Manual) Lymphocytes % (Manual) Nucleated RBC % Seg Neutrophils # Man Lymphocytes # (Manual) Monocytes # (Manual) PT INR APTT Sodium 135 L Potassium 6.1 H* Chloride 94.1 L Carbon Dioxide 19 L BUN 71 H Creatinine 16.4 H Glucose POC Glucose 66 L 51 L AST ALT Troponin T C-Reactive Protein NT-Pro-B Natriuret Pep Total Protein Albumin Triglycerides LDL Cholesterol Direct HDL Cholesterol Amylase Lipase Crossmatch 07/26/19 07/26/19 07/26/19 12:18 13:04 20:51 WBC RBC Hgb Hct MCV MCH RDW Seg Neuts % (Manual) Lymphocytes % (Manual) Nucleated RBC % Seg Neutrophils # Man Lymphocytes # (Manual) Monocytes # (Manual) PT INR APTT Sodium Potassium Chloride Carbon Dioxide BUN Creatinine Glucose POC Glucose < 40 L 162 H 67 L AST ALT Troponin T C-Reactive Protein NT-Pro-B Natriuret Pep Total Protein Albumin Triglycerides LDL Cholesterol Direct HDL Cholesterol Amylase Lipase Crossmatch 07/28/19 07/28/19 07/28/19 07:01 07:01 15:23 WBC 29.4 H RBC Hgb 9.0 L Hct 28.6 L MCV 74 L MCH 23 L RDW 30.9 H Seg Neuts % (Manual) 92.0 H Lymphocytes % (Manual) 3.0 L Nucleated RBC % Seg Neutrophils # Man 27.0 H Lymphocytes # (Manual) 0.9 L Monocytes # (Manual) 0.9 H PT INR APTT Sodium Potassium 5.9 H 5.2 H Chloride 94.0 L 94.7 L Carbon Dioxide BUN 55 H 64 H Creatinine 9.5 H 9.8 H Glucose 105 H POC Glucose AST ALT Troponin T C-Reactive Protein NT-Pro-B Natriuret Pep Total Protein Albumin Triglycerides LDL Cholesterol Direct HDL Cholesterol Amylase Lipase Crossmatch 07/29/19 07/29/19 07/30/19 10:02 10:02 02:40 WBC 13.4 H 19.2 H RBC Hgb 9.4 L 8.5 L Hct 30.2 L 27.8 L MCV 75 L 75 L MCH 24 L 23 L RDW 30.9 H 31.3 H Seg Neuts % (Manual) 91.0 H 83.0 H Lymphocytes % (Manual) 7.0 L 10.0 L Nucleated RBC % Seg Neutrophils # Man 12.2 H 15.9 H Lymphocytes # (Manual) 0.9 L Monocytes # (Manual) 1.3 H PT INR APTT Sodium Potassium Chloride 94.4 L Carbon Dioxide BUN 49 H Creatinine 7.3 H Glucose POC Glucose AST ALT Troponin T C-Reactive Protein NT-Pro-B Natriuret Pep Total Protein Albumin Triglycerides LDL Cholesterol Direct HDL Cholesterol Amylase Lipase Crossmatch 07/30/19 07/30/19 07/30/19 02:40 23:32 23:32 WBC RBC Hgb Hct MCV MCH RDW Seg Neuts % (Manual) Lymphocytes % (Manual) Nucleated RBC % Seg Neutrophils # Man Lymphocytes # (Manual) Monocytes # (Manual) PT INR APTT Sodium Potassium 6.0 H D 5.3 H 5.6 H Chloride 97.0 L Carbon Dioxide BUN 67 H 32 H Creatinine 8.6 H 4.5 H Glucose 105 H POC Glucose AST ALT Troponin T C-Reactive Protein NT-Pro-B Natriuret Pep Total Protein Albumin Triglycerides LDL Cholesterol Direct HDL Cholesterol Amylase Lipase Crossmatch 07/31/19 07/31/19 08/01/19 04:39 04:39 04:00 WBC 29.6 H RBC 3.45 L Hgb 8.4 L Hct 26.8 L MCV 78 L MCH 25 L RDW 27.3 H Seg Neuts % (Manual) 83.0 H Lymphocytes % (Manual) 10.0 L Nucleated RBC % Seg Neutrophils # Man 24.6 H Lymphocytes # (Manual) Monocytes # (Manual) 2.1 H PT INR APTT Sodium 149 H Potassium Chloride Carbon Dioxide BUN 39 H 74 H Creatinine 5.2 H 7.8 H Glucose 125 H POC Glucose AST ALT Troponin T C-Reactive Protein NT-Pro-B Natriuret Pep Total Protein Albumin Triglycerides LDL Cholesterol Direct HDL Cholesterol Amylase Lipase Crossmatch 08/01/19 08/01/19 08/01/19 04:00 13:17 Unknown WBC 31.3 H RBC 3.28 L Hgb 8.1 L Hct 25.4 L MCV 78 L MCH 25 L RDW 28.6 H Seg Neuts % (Manual) Lymphocytes % (Manual) Nucleated RBC % 2.0 H Seg Neutrophils # Man 16.6 H Lymphocytes # (Manual) Monocytes # (Manual) PT INR APTT Sodium Potassium Chloride Carbon Dioxide BUN Creatinine Glucose POC Glucose AST ALT Troponin T C-Reactive Protein 55.00 H NT-Pro-B Natriuret Pep Total Protein Albumin Triglycerides LDL Cholesterol Direct HDL Cholesterol Amylase 834 H Lipase 241 H Crossmatch 08/02/19 08/02/19 09:03 09:03 WBC 45.4 H* RBC 2.86 L Hgb 6.9 L Hct 21.8 L MCV 76 L MCH 24 L RDW 29.5 H Seg Neuts % (Manual) 86.0 H Lymphocytes % (Manual) 3.0 L Nucleated RBC % Seg Neutrophils # Man 39.0 H Lymphocytes # (Manual) Monocytes # (Manual) PT INR APTT Sodium 147 H Potassium 5.5 H Chloride Carbon Dioxide BUN 118 H Creatinine 9.9 H Glucose 122 H POC Glucose AST ALT Troponin T C-Reactive Protein NT-Pro-B Natriuret Pep Total Protein 6.2 L Albumin 2.7 L Triglycerides LDL Cholesterol Direct HDL Cholesterol Amylase Lipase Crossmatch Assessment and Plan 29 YR OLD FEMALE WITH HISTORY OF LUPUS WITH ADVANCED LUPUS NEPHRITIS WHO HAD BEEN ON DIALYSIS CAME TO ER FOR BURNING SENSATION IN BOTH LEGS FOR WHICH SHE WAS ALREADY TAKING GABAPENTINE 300MG TID. PATIENT WAS ALERT AND APPROPRIATE WHEN SHE CASME TO ER AND WAS ADMITTED FOR FURTHER WORK UP AND TREATMENT. SHE DEVELOPED AN EPISODE OF WITNESSED SEIZURE AFTER ADMISSION WHICH WAS BROUGHT UNDER CONTROL ON [place]. SUBSEQUENTLY SHE DEVELOPED ALTERED MENTAL STATUS AND WORK UP SHOWED INCREASED WBC AND INCREASED NEUTROPHIL COUNT WHICH KEEPS ON GOING UP UNTIL TODAY DESPITE ANTIBIOTICS COVERAGE. PATIENT'S BUN AND CREATININE ALSO CONTINUES TO BE HIGH,TODAYS LAB SHOWS CREATININE OF 9.9 AND BUN OF 118. PHYSICAL EXAMINATION- PATIENT IS VERBALLY UNRESPONSIVE, RESPONDS TO PAINFUL STIMULI BY WITHDRAWAL AND FACIAL GRIMACING.FREQUENTLY GROANING AND MOANING , HEART- NORMAL RATE AND RYTHM.CAROTIDS- BOTH PALPABLE, RESISTS EXAMINATION BY FORCEFUL EYE CLOSURE, MOVES ALL FOUR EXTREMITIES, REFLEXES ARE WITH IN NORMAL LIMIT WITHOUT ANY ASYMMETRY, WITH BILATERAL EQUIVOCAL TOES. OTHER EXAMINATION COULD NOT BE PERFORMED DUE PATIENT'S RESISTING EXAMINATION DUE TO HER CURRENT MENTAL STATUS. IMPRESSION. 1. SEPTIC METABOLIC ENCEPHALOPATHY, 2. ADVANCED RENAL FAILURE, RECOMMEND. 1, AGREE WITH LP AND CHECK CSF FOR EVIDENCE OF MENINGITIS, IN THE MEAN TIME SHE SHOULD BE COVERED BY CEFTRIAXONE,VANCOMYCIN AND AMPICILLIN, IF NO OBJECTION FROM ID WHO ARE INVOLVED IN THE CASE, 2. PATIENT SHOULD GET DIALYSIS 3. PATIENT SHOULD BE TRANSFERRED TO ICU FOR AGRESSIVE PAT IENT CARE.
--- NOTE | 2019-08-02 15:21 | Progress Note ---
Assessment and Plan Cultures: Wound culture - E coli, whittaker sensitive Blood culture 07/26/2019 no growth today CSF 08/02/2019 no organisms, no leukocytes A/P: 49 yo F PMHx ESRD on HD, lupus, previous MRSA infection now with wound i nfection, abdominal pain and seizures 1. Acute sepsis - now leukocytosis with leukomoid reaction 31-->45K. Possible source ?pancreatitis +/- right labia abscess +/- sinusitis 2. Pancreatitis: ? CT with generalized edema is noted throughout the pancreas with surrounding moderate inflammation. No distinct pancreatic lesion is identified. Lipase 241. 3. Right labia abscess v/s necrotizing fascitis: Staph vs polymicrobial. Cultures obtained today and sent. Will consult AUTOMATIC SPOOLER OPERATOR 4. Wound infection right buttocks - Continue cefepime. 5. Lupus - on plaquenil, cellcept and prednisone ? flare 6. New onset Seizures - ?? unclear etiology 7. AMS? received ativan for agitation overnight ? due to sepsis ?lupus. CT head with left maxillary sinusitis. Since patient is immunocompromised will close monitor for OI. S/p LP CSF with no evidence of meningitis. WBC=0, CSF glucose and protein pending. 8. Severe anemia ? plaquenil ? GI bleed 9. Immunocompromised host 10. ESRD on HD - renally dose antibiotics Recs: - AUTOMATIC SPOOLER OPERATOR consult for right labia abscess - I called radiology to review recent CT - right labia seems to have an abscess. Discussed with Dr Araujo reports it could be [place] - repeat blood culture - f/u CSF protein and glucose and CSF culture - check procalcitonin - continue cefepime renally adjusted - stop ampicillin IV -no meningitis on CSF - continue vancomycin IV until meningitis is r/o - add metronidazole IV - monitor mentation - monitor leukocytosis Discussed with Dr Andrea Will follow. Marly Laura MD Infectious Diseases Letter Stamping Machine Operator [facility] M [phone] O [phone] Subjective Date of service: 08/02/19 Principal diagnosis: anemia, dizziness Interval history: Patient remains somnolent unable to provide a history some grimacing tmax 100.3 transferred to [facility] Objective - Exam Narrative Exam: General appearance: somnolent in NAD Eyes: anicteric sclerae, clear conjunctivae HENT: Atraumatic; oropharynx clear dry mucosa Lungs: CTA CV: RRR Abdomen: Soft, tenderness diffusely Extremities: no edema, no cyanosis Skin: No rash. +multiple scattered old scars and +right hip superficial wound Gen: +right labia swelling with small opening draining copious purulence Psych: somnolent Neuro: somnolent - Constitutional Vitals: Vital Signs Temp Pulse Resp BP Pulse Ox 98.7 F 106 H 22 119/62 97 08/02/19 04:51 08/02/19 04:51 08/02/19 04:51 08/02/19 04:51 08/02/19 04:51 Temperature -Last 24 Hours Temperature 98.7 F Temperature 98.7 F Temperature 98.8 F - Labs CBC & Chem 7: 08/02/19 09:03 08/02/19 09:03 Labs: Abnormal lab results 08/01/19 08/02/19 08/02/19 Range/Units 13:17 09:03 09:03 WBC 45.4 H* (4.5-11.0) K/mm3 RBC 2.86 L (3.65-5.03) M/mm3 Hgb 6.9 L (10.1-14.3) gm/dl Hct 21.8 L (30.3-42.9) % MCV 76 L (79-97) fl MCH 24 L (28-32) pg RDW 29.5 H (13.2-15.2) % Seg Neuts % (Manual) 86.0 H (40.0-70.0) % Lymphocytes % (Manual) 3.0 L (13.4-35.0) % Seg Neutrophils # Man 39.0 H (1.8-7.7) K/mm3 Sodium 147 H (137-145) mmol/L Potassium 5.5 H (3.6-5.0) mmol/L BUN 118 H (7-17) mg/dL Creatinine 9.9 H (0.7-1.2) mg/dL Glucose 122 H (65-100) mg/dL C-Reactive Protein 55.00 H (0.00-1.30) mg/dL Total Protein 6.2 L (6.3-8.2) g/dL Albumin 2.7 L (3.9-5) g/dL Crossmatch 08/02/19 Range/Units 12:50 WBC (4.5-11.0) K/mm3 RBC (3.65-5.03) M/mm3 Hgb (10.1-14.3) gm/dl Hct (30.3-42.9) % MCV (79-97) fl MCH (28-32) pg RDW (13.2-15.2) % Seg Neuts % (Manual) (40.0-70.0) % Lymphocytes % (Manual) (13.4-35.0) % Seg Neutrophils # Man (1.8-7.7) K/mm3 Sodium (137-145) mmol/L Potassium (3.6-5.0) mmol/L BUN (7-17) mg/dL Creatinine (0.7-1.2) mg/dL Glucose (65-100) mg/dL C-Reactive Protein (0.00-1.30) mg/dL Total Protein (6.3-8.2) g/dL Albumin (3.9-5) g/dL Crossmatch See Detail
[2019-08-02] MEDS ORDERED: PROCRIT ONE (15:35)
--- NOTE | 2019-08-02 17:31 | Consultation ---
History of Present Illness Consult date: 08/02/19 Reason for consult: other (labial abscess) History of present illness: 49y/o female admitted to the ICU after being evaluated in the ED for leg pain. The patient has ESRD receiving hemodialysis and lupus. The patient is currently non-responsive to verbal stimuli. Her hospitalization has been complicated by worsening leukocytosis and acute change in her neurological status being noncommunicative. The patient currently has active drainage of a right labial abscess. She has a known history of MRSA. Past History Past Medical History: seizure, renal disease, other (ESRD; Lupus; MRSA) Medications and Allergies Allergies Allergy/AdvReac Type Severity Reaction Status Date / Time lactose AdvReac Unknown Verified 07/29/19 08:16 Home Medications Medication Instructions Recorded Confirmed Last Taken Type Gabapentin 300 mg PO 3XW 11/14/18 07/26/19 07/25/19 History ALBUTEROL NEB's [Proventil] 2.5 mg IH QID PRN 07/26/19 07/26/19 07/25/19 History Amitriptyline [Elavil] 25 mg PO QHS 07/26/19 07/26/19 07/25/19 History Amitriptyline [Elavil] 25 mg PO QHS 07/26/19 07/26/19 07/25/19 History Cyanocobalamin (Vitamin B-12) 1,000 mcg PO QDAY 07/26/19 07/26/19 07/25/19 History [Vitamin B-12] Folic Acid [Folvite] 1 mg PO QDAY 07/26/19 07/26/19 07/25/19 History Hydroxychloroquine [Plaquenil] 200 mg PO QDAY 07/26/19 07/26/19 07/25/19 History Ibuprofen [Motrin] 800 mg PO Q8HR PRN 07/26/19 07/26/19 07/25/19 History Labetalol HCl [Labetalol 300mg TAB] 300 mg PO Q12H 07/26/19 07/26/19 07/25/19 History Losartan [Cozaar] 50 mg PO QDAY 07/26/19 07/26/19 07/25/19 History Mirtazapine 7.5 mg PO QDAY 07/26/19 07/26/19 07/25/19 History Mycophenolate [Cellcept] 500 mg PO QDAY 07/26/19 07/26/19 07/25/19 History Pantoprazole [Protonix] 40 mg PO BID 07/26/19 07/26/19 07/25/19 History Pregabalin [Lyrica] 25 mg PO QDAY 07/26/19 07/26/19 07/25/19 History Sevelamer HCl [Renagel] 800 mg PO BIDWM 07/26/19 07/26/19 07/25/19 History hydrOXYzine HCL [Atarax] 50 mg PO QDAY 07/26/19 07/26/19 07/25/19 History predniSONE [Deltasone] 20 mg PO QDAY 07/26/19 07/26/19 07/25/19 History Active Meds: Active Medications Acetaminophen (Tylenol) 650 mg PO Q6H PRN PRN Reason: Pain, Mild (1-3) Albuterol (Proventil) 2.5 mg IH QID PRN PRN Reason: Wheezing Lipase/Protease/Amylase (Tu Diane 10,500 Unit) 1 each FEEDTUBE PRN PRN PRN Reason: For Clogged Feeding Tube Cyanocobalamin (Vitamin B-12) 1,000 mcg PO QDAY [facility] Last Admin: 08/01/19 18:29 Dose: Not Given Documented by: Dextrose (D50w (25gm) Syringe) 25 ml IV PRN PRN PRN Reason: Hypoglycemia Last Admin: 07/26/19 12:32 Dose: 25 ml Documented by: Epoetin Mitch (Procrit) 10,000 unit IV FAN PRN PRN Reason: hemodialysis Last Admin: 07/30/19 19:19 Dose: 10,000 unit Documented by: Folic Acid (Folvite) 1 mg PO QDAY [facility] Last Admin: 08/01/19 18:29 Dose: Not Given Documented by: Hydralazine HCl (Apresoline) 10 mg IV Q4HR PRN PRN Reason: Blood Pressure Last Admin: 07/31/19 00:05 Dose: 10 mg Documented by: Hydroxychloroquine Sulfate (Plaquenil) 200 mg PO QDAY [facility] Last Admin: 08/01/19 18:29 Dose: Not Given Documented by: Hydroxyzine HCl (Atarax) 50 mg PO QDAY [facility] Last Admin: 08/01/19 18:29 Dose: Not Given Documented by: Cefepime HCl (Maxipime/Ns 1 Gm/100 Ml) 1 gm in 100 mls @ 200 mls/hr IV Q24HR [facility]; Protocol Last Admin: 08/02/19 09:51 Dose: 200 mls/hr Documented by: Levetiracetam 500 mg/ Dextrose 105 mls @ 400 mls/hr IV BID [facility] Last Admin: 08/02/19 09:35 Dose: 400 mls/hr Documented by: Sodium Chloride (Nacl 0.9%) 100 mls @ 999 mls/hr IV FAN PRN PRN Reason: Hypotension Sodium Chloride (Nacl 0.9% 500 Ml) 500 mls @ 0 mls/hr IV ONCE NR Stop: 08/03/19 11:47 Metronidazole (Flagyl 500 Mg/100 Ml) 500 mg in 100 mls @ 100 mls/hr IV Q8HR [facility]; Protocol Labetalol HCl (Normodyne) 300 mg PO BID [facility] Last Admin: 08/01/19 22:40 Dose: Not Given Documented by: Losartan Potassium (Cozaar) 50 mg PO QDAY [facility] Last Admin: 08/01/19 18:29 Dose: Not Given Documented by: Morphine Sulfate (Morphine) 1 mg IV Q8H PRN PRN Reason: Pain, Moderate (4-6) Last Admin: 07/29/19 23:18 Dose: 1 mg Documented by: Mycophenolate Mofetil (Cellcept) 500 mg PO QDAY [facility] Last Admin: 08/01/19 18:29 Dose: Not Given Documented by: Ondansetron HCl (Zofran) 4 mg IV Q6H PRN PRN Reason: Nausea And Vomiting Last Admin: 07/29/19 23:44 Dose: 4 mg Documented by: Oxycodone/Acetaminophen (Percocet 5/325) 1 tab PO Q8H PRN PRN Reason: Pain, Moderate (4-6) Pantoprazole Sodium (Protonix) 40 mg IV BID [facility] Prednisone (Deltasone) 20 mg PO QDAY [facility] Last Admin: 08/01/19 18:29 Dose: Not Given Documented by: Sevelamer Carbonate (Renvela) 800 mg PO 0730,1630 [facility] Last Admin: 08/01/19 18:29 Dose: Not Given Documented by: Simple Syrup (Simple Syrup) 15 ml FEEDTUBE PRN PRN PRN Reason: Hypoglycemia Simple Syrup (Simple Syrup) 30 ml FEEDTUBE PRN PRN PRN Reason: Hypoglycemia Sodium Bicarbonate (Sodium Bicarbonate) 325 mg FEEDTUBE PRN PRN PRN Reason: For Clogged Feeding Tube - Vital Signs Vital signs: Vital Signs Temp Pulse Resp BP Pulse Ox 99.8 F H 118 H 20 127/79 99 07/26/19 04:00 07/26/19 04:00 07/26/19 04:00 07/26/19 04:00 07/26/19 04:00 Temp Pulse Resp BP Pulse Ox 99.0 F 104 H 18 87/51 99 08/02/19 16:59 08/02/19 16:59 08/02/19 16:59 08/02/19 16:59 08/02/19 16:59 - Physical Exam Breasts: Positive: deferred Vulva: both: normal (active drainage of purulent discharge from a pinhole opening in labia majora; mild erythema; site is fluccant and soft; no evidence of gangreous tissue noted) Results Result Diagrams: 08/02/19 09:03 08/02/19 09:03 Abnormal lab results 08/02/19 08/02/19 08/02/19 Range/Units 09:03 09:03 12:50 WBC 45.4 H* (4.5-11.0) K/mm3 RBC 2.86 L (3.65-5.03) M/mm3 Hgb 6.9 L (10.1-14.3) gm/dl Hct 21.8 L (30.3-42.9) % MCV 76 L (79-97) fl MCH 24 L (28-32) pg RDW 29.5 H (13.2-15.2) % Seg Neuts % (Manual) 86.0 H (40.0-70.0) % Lymphocytes % (Manual) 3.0 L (13.4-35.0) % Seg Neutrophils # Man 39.0 H (1.8-7.7) K/mm3 Sodium 147 H (137-145) mmol/L Potassium 5.5 H (3.6-5.0) mmol/L BUN 118 H (7-17) mg/dL Creatinine 9.9 H (0.7-1.2) mg/dL Glucose 122 H (65-100) mg/dL Total Protein 6.2 L (6.3-8.2) g/dL Albumin 2.7 L (3.9-5) g/dL Crossmatch See Detail All other labs normal. Assessment and Plan - Patient Problems (1) Vulvar abscess Current Visit: Yes Status: Acute Plan to address problem: Diagnosis of Fareed's involving the labia is low on the differential diagnosis in this compromised patient upon examination, the tissue does not demonstrate evidence of gangrenous disease the tissue appears well oxygenated with active drainage of the abscess tomorrow an incision and drainage of the site can be performed under local anesthesia if consented by family continue perineal care with cleaning and warm compress as needed will followup tomorrow for further evaluation (2) Leukocytosis Current Visit: Yes Status: Acute Qualifiers: Leukocytosis type: unspecified Qualified Code(s): D72.829 - Elevated white blood cell count, unspecified
[2019-08-02] MEDS: ZOFRAN IV PRN (20:32)
[2019-08-02] MEDS: PROTONIX IV SCH (23:39)
[2019-08-02] MEDS: NORMODYNE PO SCH (23:40)
[2019-08-02] MEDS: FLAGYL 500 MG/100 ML 500 MG/100 ML BAG IV SCH (23:43)
--- NOTE | 2019-08-03 01:47 | Ultrasound Report ---
ULTRASOUND ABDOMEN, COMPLETE INDICATION / CLINICAL INFORMATION: pancreatitis. COMPARISON: CT dated 07/31/19 FINDINGS: PANCREAS: Partially obscured by overlying bowel gas. Visualized portions appear edematous. No discret e peripancreatic fluid collection noted. ABDOMINAL AORTA: No significant abnormality. IVC: No significant abnormality.. LIVER: No significant abnormality. GALLBLADDER: No significant abnormality. BILE DUCTS: No significant abnormality. Common bile duct measures 3.9 mm. KIDNEYS: Right: Echogenic. No hydronephrosis. Subcentimeter cyst in the upper pole. Left: Not well s een secondary to bowel gas and body habitus. SPLEEN: No significant abnormality. FREE FLUID: No significant free fluid. ADDITIONAL FINDINGS: None. IMPRESSION: 1. Edematous pancreas without discrete peripancreatic fluid collection. 2. Echogenic kidneys suggesting medical renal disease. No hydronephrosis. Signer Name: Candelaria Vicente MD Signed: 08/03/2019 1:43 AM Workstation Name: [id number]
[2019-08-03 04:35] LABS: Hematocrit 31.7 % (30.3-42.9); Hemoglobin 10.5 gm/dl (10.1-14.3); Mean Corpuscular HGB Conc 33 % (30-34); Mean Corpuscular Volume 79 fl (79-97); Red Blood Count 4.02 M/mm3 (3.65-5.03)
[2019-08-03 05:45] LABS: Platelet Count 185 K/mm3 (140-440)
[2019-08-03 05:49] LABS: Albumin 3.1 g/dL (3.9-5); Calcium 9.4 mg/dL (8.4-10.2)
[2019-08-03] MEDS: FLAGYL 500 MG/100 ML 500 MG/100 ML BAG IV SCH ×3 (06:07→21:26)
[2019-08-03] MEDS: ZOFRAN IV PRN ×2 (06:07→14:40)
[2019-08-03] MEDS: RENVELA PO SCH ×2 (08:04→18:08)
[2019-08-03] MEDS: CELLCEPT PO SCH (09:48)
[2019-08-03] MEDS: DELTASONE PO SCH (09:48)
[2019-08-03] MEDS: ATARAX PO SCH (09:48)
[2019-08-03] MEDS: VITAMIN B-12 PO SCH (09:49)
[2019-08-03] MEDS: PLAQUENIL PO SCH (09:49)
[2019-08-03] MEDS: FOLVITE PO SCH (09:49)
[2019-08-03] MEDS ORDERED: XYLOCAINE 1% 20 mL INFILTRATI ONE (10:30)
[2019-08-03] MEDS: MAXIPIME/NS 1 GM/100 ML 1 GM/100 ML BAG IV SCH (10:33)
[2019-08-03] MEDS: PROTONIX IV SCH ×2 (10:34→21:27)
[2019-08-03] MEDS: KEPPRA 500 MG in D5W 100 ML IV SCH (10:34)
[2019-08-03] MEDS: COZAAR PO SCH (10:35)
[2019-08-03] MEDS: NORMODYNE PO SCH ×2 (10:35→21:26)
--- NOTE | 2019-08-03 10:54 | Progress Note ---
Assessment and Plan 1. ESRD: Patient is known to our service. On maintenance hemodialysis three times a week, TTS schedule. Last dialyzed yesterday. Next HD tomorrow. 2. FEN: Hyperkalemia, improved. Monitor lytes. 3. Anemia: Epogen with HD. 4. New onset seizures: On Keppra. Neurology following 5. Severe metabolic encephalopathy: Followed by Neuro. 6. Sepsis. Vulvar abscess. Followed by ID and [facility]. 7. Acute pancreatitis: Continue supportive care. Seen by GI. 8. History of lupus: On Cellcept and Plaquanil. Subjective Date of service: 08/03/19 Principal diagnosis: anemia, dizziness Interval history: Patient was seen and examined at the bedside. Objective - Vital Signs Vital signs: Vital Signs - 12hr 08/02/19 08/03/19 08/03/19 23:40 00:01 01:00 Temperature 99.5 F Pulse Rate 98 H Pulse Rate [ 96 H From Monitor] Respiratory 21 Rate Blood Pressure 104/55 O2 Sat by Pulse 95 Oximetry 08/03/19 08/03/19 04:00 08:00 Temperature 98.2 F 99.9 F H Pulse Rate Pulse Rate [ 89 106 H From Monitor] Respiratory 19 18 Rate Blood Pressure O2 Sat by Pulse 97 98 Oximetry - General Appearance General appearance: well-developed, appears stated age, other (not in distress, NG tube noted) EENT: ATNC Respiratory: Present: Clear to Ascultation Cardiology: regular, S1S2, no murmurs Gastrointestinal: normoactive bowel sounds, no tenderness, no distended Integumentary: no rash, warm and dry Neurologic: other (opens eyes intermittently, non-verbal, not following any command, resists exam) Musculoskeletal: other (no edema, L arm AVF) - Lab 08/03/19 04:15 08/03/19 04:15 Most recent lab results Calcium 9.4 mg/dL (8.4-10.2) 08/03/19 04:15 Magnesium 2.00 mg/dL (1.7-2.3) 07/30/19 23:32 Medications & Allergies - Medications Allergies/Adverse Reactions: Allergies lactose Adverse Reaction (Verified 07/29/19 08:16) Unknown Home Medications: Home Medications Medication Instructions Recorded Confirmed Last Taken Type Gabapentin 300 mg PO 3XW 11/14/18 07/26/19 07/25/19 History ALBUTEROL NEB's [Proventil] 2.5 mg IH QID PRN 07/26/19 07/26/19 07/25/19 History Amitriptyline [Elavil] 25 mg PO QHS 07/26/19 07/26/19 07/25/19 History Amitriptyline [Elavil] 25 mg PO QHS 07/26/19 07/26/19 07/25/19 History Cyanocobalamin (Vitamin B-12) 1,000 mcg PO QDAY 07/26/19 07/26/19 07/25/19 History [Vitamin B-12] Folic Acid [Folvite] 1 mg PO QDAY 07/26/19 07/26/19 07/25/19 History Hydroxychloroquine [Plaquenil] 200 mg PO QDAY 07/26/19 07/26/19 07/25/19 History Ibuprofen [Motrin] 800 mg PO Q8HR PRN 07/26/19 07/26/19 07/25/19 History Labetalol HCl [Labetalol 300mg TAB] 300 mg PO Q12H 07/26/19 07/26/19 07/25/19 History Losartan [Cozaar] 50 mg PO QDAY 07/26/19 07/26/19 07/25/19 History Mirtazapine 7.5 mg PO QDAY 07/26/19 07/26/19 07/25/19 History Mycophenolate [Cellcept] 500 mg PO QDAY 07/26/19 07/26/19 07/25/19 History Pantoprazole [Protonix] 40 mg PO BID 07/26/19 07/26/19 07/25/19 History Pregabalin [Lyrica] 25 mg PO QDAY 07/26/19 07/26/19 07/25/19 History Sevelamer HCl [Renagel] 800 mg PO BIDWM 07/26/19 07/26/19 07/25/19 History hydrOXYzine HCL [Atarax] 50 mg PO QDAY 07/26/19 07/26/19 07/25/19 History predniSONE [Deltasone] 20 mg PO QDAY 07/26/19 07/26/19 07/25/19 History Active Medications: Generic Name Dose Route Start Last Admin Trade Name Freq PRN Reason Stop Dose Admin Acetaminophen 650 mg 07/26/19 11:08 Tylenol PO Q6H PRN Pain, Mild (1-3) Albuterol 2.5 mg 07/26/19 15:39 Proventil IH QID PRN Wheezing Lipase/Protease/Amylase 1 each 07/31/19 08:26 Pancremarcella Diane 10,500 Unit FEEDTUBE PRN PRN For Clogged Feeding Tube Cyanocobalamin 1,000 mcg 07/27/19 10:00 08/03/19 09:49 Vitamin B-12 PO Not Given QDAY JOEL Dextrose 25 ml 07/26/19 11:06 07/26/19 12:32 D50w (25gm) Syringe IV 25 ml PRN PRN Administration Hypoglycemia Epoetin Mitch 10,000 unit 07/26/19 10:10 07/30/19 19:19 Procrit IV 10,000 unit FAN PRN Administration hemodialysis Folic Acid 1 mg 07/27/19 10:00 08/03/19 09:49 Folvite PO Not Given QDAY [facility] Hydralazine HCl 10 mg 07/30/19 20:16 07/31/19 00:05 Apresoline IV 10 mg Q4HR PRN Administration Blood Pressure Hydroxychloroquine Sulfate 200 mg 07/27/19 10:00 08/03/19 09:49 Plaquenil PO Not Given QDAY [facility] Hydroxyzine HCl 50 mg 07/27/19 10:00 08/03/19 09:48 Atarax PO Not Given QDAY [facility] Cefepime HCl 1 gm in 100 mls @ 200 mls/hr 07/27/19 10:00 08/03/19 10:33 Maxipime/Ns 1 Gm/100 Ml IV 200 mls/hr Q24HR JOEL Administration Protocol Levetiracetam 500 mg/ Dextrose 105 mls @ 400 mls/hr 07/30/19 12:00 08/03/19 10:34 IV 400 mls/hr BID JOEL Administration Sodium Chloride 100 mls @ 999 mls/hr 08/02/19 08:56 Nacl 0.9% IV FAN PRN Hypotension Sodium Chloride 500 mls @ 0 mls/hr 08/02/19 11:48 Nacl 0.9% 500 Ml IV 08/03/19 11:47 ONCE NR As Directed Metronidazole 500 mg in 100 mls @ 100 mls/hr 08/02/19 16:00 08/03/19 06:07 Flagyl 500 Mg/100 Ml IV 100 mls/hr Q8HR [facility] Administration Protocol Vancomycin HCl 1 gm in 250 mls @ 166.667 mls/hr 08/04/19 20:00 Vancomycin/Ns 1 Gm/250 Ml IV TuThSa [facility] Labetalol HCl 300 mg 07/26/19 16:00 08/03/19 10:35 Normodyne PO Not Given BID [facility] Losartan Potassium 50 mg 07/27/19 10:00 08/03/19 10:35 Cozaar PO Not Given QDAY [facility] Morphine Sulfate 1 mg 07/29/19 15:49 07/29/19 23:18 Morphine IV 1 mg Q8H PRN Administration Pain, Moderate (4-6) Mycophenolate Mofetil 500 mg 07/27/19 10:00 08/03/19 09:48 Cellcept PO Not Given QDAY [facility] Ondansetron HCl 4 mg 07/29/19 23:31 08/03/19 06:07 Zofran IV 4 mg Q6H PRN Administration Nausea And Vomiting Oxycodone/Acetaminophen 1 tab 07/29/19 15:49 Percocet 5/325 PO Q8H PRN Pain, Moderate (4-6) Pantoprazole Sodium 40 mg 08/02/19 14:00 08/03/19 10:34 Protonix IV 40 mg BID [facility] Administration Prednisone 20 mg 07/27/19 10:00 08/03/19 09:48 Deltasone PO Not Given QDAY [facility] Sevelamer Carbonate 800 mg 07/26/19 16:30 08/03/19 08:04 Renvela PO Not Given 0730,1630 [facility] Simple Syrup 15 ml 07/31/19 08:26 Simple Syrup FEEDTUBE PRN PRN Hypoglycemia Simple Syrup 30 ml 07/31/19 08:26 Simple Syrup FEEDTUBE PRN PRN Hypoglycemia Sodium Bicarbonate 325 mg 07/31/19 08:26 Sodium Bicarbonate FEEDTUBE PRN PRN For Clogged Feeding Tube
[2019-08-03 11:02] LABS: Dohle Bodies 1+; Toxic Granulation 3+
--- NOTE | 2019-08-03 11:08 | Progress Note ---
Assessment and Plan Cultures: Wound culture - E coli, whittaker sensitive Blood culture 07/26/2019 no growth today CSF 08/02/2019 no organisms, no leukocytes Right labia drainage 08/02/2019 +GNRs A/P: 49 yo F PMHx ESRD on HD, lupus, previous MRSA infection now with wound infection, abdominal pain and seizures 1. Acute sepsis - now leukocytosis with leukomoid reaction 31-->45-->52K. Possible source ?pancreatitis +/- right labia abscess +/- sinusitis 2. Pancreatitis: ? CT with generalized edema is noted throughout the pancreas with surrounding moderate inflammation. No distinct pancreatic lesion is identified. Lipase 241. 3. Right labia abscess v/s necrotizing fascitis: Staph vs polymicrobial. Right labia drainage 08/02/2019 +GNRs. [employer] on board. Procalcitonin 22 (high/unclear significance is the setting of ESRD). 4. Wound infection right buttocks - Continue cefepime. 5. Lupus - on plaquenil, cellcept and prednisone ? flare 6. New onset Seizures - ?? unclear etiology 7. AMS? received ativan for agitation overnight ? due to sepsis ?lupus. CT head with left maxillary sinusitis. Since patient is immunocompromised will close monitor for OI. S/p LP CSF with no evidence of meningitis. WBC=0, CSF glucose and protein pending. 8. Severe anemia ? plaquenil ? GI bleed 9. Immunocompromised host 10. ESRD on HD - renally dose antibiotics Recs: - [employer]PER[employer]OR consult noted, planning bedside I+D. - agree with repeat CT pelvic with contrast - discussed with Dr Andrea - f/u repeat blood culture - continue cefepime renally adjusted - continue vancomycin IV renally adjusted - continue metronidazole IV - monitor mentation - monitor leukocytosis Discussed with Dr Andrea Will follow. Marly Laura MD Infectious Diseases Customer Relations Coordinator [facility] M [phone] O [phone] Subjective Date of service: 08/03/19 Principal diagnosis: anemia, dizziness Interval history: Patient is more alert, follows simple commands non verbal Objective - Exam Narrative Exam: General appearance: somnolent in NAD Eyes: anicteric sclerae, clear conjunctivae HENT: Atraumatic; oropharynx clear dry mucosa Lungs: CTA CV: RRR Abdomen: Soft, tenderness diffusely Extremities: no edema, no cyanosis Skin: No rash. +multiple scattered old scars and +right hip superficial wound Gen: +right labia swelling with small opening draining purulence Psych: somnolent Neuro: somnolent - Constitutional Vitals: Vital Signs Temp Pulse Resp BP Pulse Ox 99.9 F H 106 H 18 104/55 98 08/03/19 08:00 08/03/19 08:00 08/03/19 08:00 08/02/19 23:40 08/03/19 08:00 Temperature -Last 24 Hours Temperature 99.9 F Temperature 98.2 F Temperature 99.5 F Temperature 98.9 F Temperature 98.8 F Temperature 99.8 F Temperature 99.0 F Temperature 98.9 F Temperature 99.0 F Temperature 99.0 F Temperature 99.0 F Temperature 98.7 F Temperature 98.7 F - Labs CBC & Chem 7: 08/03/19 04:15 08/03/19 04:15 Labs: Abnormal lab results 08/02/19 08/02/19 08/03/19 Range/Units 09:03 12:50 04:15 WBC 45.4 H* 52.2 H* (4.5-11.0) K/mm3 RBC 2.86 L (3.65-5.03) M/mm3 Hgb 6.9 L (10.1-14.3) gm/dl Hct 21.8 L (30.3-42.9) % MCV 76 L (79-97) fl MCH 24 L 26 L (28-32) pg RDW 29.5 H 19.0 H (13.2-15.2) % Seg Neuts % (Manual) 86.0 H (40.0-70.0) % Lymphocytes % (Manual) 3.0 L (13.4-35.0) % Seg Neutrophils # Man 39.0 H (1.8-7.7) K/mm3 Chloride (98-107) mmol/L BUN (7-17) mg/dL Creatinine (0.7-1.2) mg/dL Glucose (65-100) mg/dL TIBC (250-450) mcg/dL Ferritin (13.0-400.0) ng/mL Albumin (3.9-5) g/dL Triglycerides (2-149) mg/dL Crossmatch See Detail 08/03/19 08/03/19 Range/Units 04:15 04:15 WBC (4.5-11.0) K/mm3 RBC (3.65-5.03) M/mm3 Hgb (10.1-14.3) gm/dl Hct (30.3-42.9) % MCV (79-97) fl MCH (28-32) pg RDW (13.2-15.2) % Seg Neuts % (Manual) (40.0-70.0) % Lymphocytes % (Manual) (13.4-35.0) % Seg Neutrophils # Man (1.8-7.7) K/mm3 Chloride 90.6 L (98-107) mmol/L BUN 47 H (7-17) mg/dL Creatinine 4.9 H D (0.7-1.2) mg/dL Glucose 140 H (65-100) mg/dL TIBC 150 L (250-450) mcg/dL Ferritin 5729.0 H (13.0-400.0) ng/mL Albumin 3.1 L (3.9-5) g/dL Triglycerides 261 H (2-149) mg/dL Crossmatch
[2019-08-03 11:24] LABS: C-Reactive Protein 40.3 mg/dL (0.00-1.30)
--- NOTE | 2019-08-03 11:31 | Cat Scan Report ---
CT ABDOMEN AND PELVIS WITH CONTRAST HISTORY: ischemic bowel COMPARISON: 07/31/2019 TECHNIQUE: Axial CT images were obtained through the abdomen and pelvis after 100 cc of Omnipaque 300 intravenously. Sagittal and coronal reformatted images. All CT scans at this location are performed using CT dose reduction for ALARA by means of automated exposure control. FINDINGS: CT ABDOMEN: Lung Bases: Mild cardiomegaly and small to medium pericardial effusion are unchanged. There is patchy infiltrate or atelectasis in the left lower lobe. I favor atelectatic changes. No pleural effusion. Liver: The liver is mildly enlarged with mild diffuse fatty infiltration. No focal liver lesion. Biliary: No significant abnormality. Spleen: The spleen is normal size. There are small perfusion defects in the inferior spleen. No splen ic mass or fluid collection. Pancreas: The pancreas is markedly abnormal. The pancreatic body and tail are diffusely heterogeneous with areas of nonperfusion. No evidence for internal gas or obvious mass. There is a large amount of fluid throughout the base of the mesentery and left abdomen which appears to represent a developing or immature pseudocyst. Adrenals: No significant abnormality. Kidneys: Mild bilateral renal atrophy is evident. No hydronephrosis or focal mass is appreciated. Lymphatics: No pathologic or bulky adenopathy is identified. Vasculature: The aorta, iliac arteries, renal arteries, celiac axis and SMA appear widely patent. The LOLY is small in caliber but appears to be patent. Bowel/Peritoneum: There is no evidence for bowel obstruction or pneumatosis. Mild circumferential thi ckening of the transverse and descending colon has developed which could represent a nonspecific coli tis. The stomach and small bowel loops are unremarkable. Normal appendix. A feeding tube terminates i n the duodenal bulb. CT PELVIS: : No significant abnormality. Osseous Structures: Scoliosis. No fracture or suspicious bony lesion. Additional Findings: The previously described right labial abscess is not included on this examinatio n. There is a trace amount of subcutaneous gas in the right anterior pelvic wall which appears grossl y unchanged. Please note the perineum is not entirely included in this exam. IMPRESSION: Severely abnormal pancreas with multiple focal areas of nonperfusion in the distal pancreas. Necrotiz ing pancreatitis could be considered. There is moderate to large fluid throughout the base of the mes entery and left abdomen which is grossly unchanged. There is mild nonspecific thickening of the transverse and disease ascending colon which could repres ent a nonspecific colitis. No pneumatosis, free air or obstruction is identified. Arterial structures in the abdomen appear to be patent although this is not a CTA. Mild hepatomegaly with diffuse fatty infiltration. Mild bilateral renal atrophy. Nonspecific perfusion defects in the inferior spleen. Mild cardiomegaly and small to medium pericardial effusion, unchanged. Probable atelectatic changes in the left lower lobe. Signer Name: Lucas Araujo Jr, MD Signed: 08/03/2019 11:27 AM Workstation Name: [id number]
[2019-08-03 12:07] LABS: Platelet Count 180 K/mm3 (140-440)
--- NOTE | 2019-08-03 12:22 | Progress Note ---
Assessment and Plan PATIENT LOOKS MUCH BETTER TODAY, [facility] YESTERDAY FOLLOWING WHICH BUN CAME DOWN TO 47 FROM 118 AND CREATININE CAME DOWN TO 4.9 FROM 9.9. DID NOT HAVE ANY RECURRENCE OF SEIZURE. NO EVIDENCE OF MENINGITIS, CSF FINDINGS DO NOT SUGGEST MENINGITIS HAVING LABIAL ABSCESS INCISION AND DRAINAGE. BUTTOCK ABSCESS GREW E COLI, LABIAL ABSCESS SHOWS GRAM NEGATIVE OSWALD GETTING APPROPRIATE ANTIBIOTICS. PHYSICAL EXAMINATION, PATIENT IS ALERT AND AWAKE, MAKES EYE CONTACT,DOES NOT FOLLOW COMMAND,HAS SPONTANEOUS BLINKING, PUPILS REACT TO LIGHT,EXTRA OCULAR MOVEMENT IS INTACT,MOVES ALL FOUR EXTREMITIES, NO ASYMMETRY OF REFLEXES. IMPRESSION. 1. SEPTIC METABOLIC ENCEPHALOPATHY WITH ADVANCED RENAL FAILURE FROM LUPUS, SHOWING IMPROVEMENT OF MENTAL STATUS FOLLOWING DIALYSIS, NO RECURRENCE OF SEIZURE RECOMMEND. 1. CONTINUE KEPPRA PRESCRIBED 2. CONTINUE DIALYSIS AND CONTINUE ANTIBIOTICS AND OTHER SUPPORTIVE MEASURE. Subjective Principal diagnosis: anemia, dizziness Objective - Vital Sign Vital Signs - 12hr 08/03/19 08/03/19 08/03/19 01:00 04:00 08:00 Temperature 98.2 F 99.9 F H Pulse Rate [ 96 H 89 106 H From Monitor] Respiratory 21 19 18 Rate O2 Sat by Pulse 95 97 98 Oximetry 08/03/19 12:00 Temperature Pulse Rate [ 105 H From Monitor] Respiratory 18 Rate O2 Sat by Pulse 98 Oximetry - Laboratory Findings CBC and BMP: 08/03/19 04:15 08/03/19 04:15 Abnormal Lab Findings: Abnormal Labs 07/26/19 07/26/19 07/26/19 05:25 05:25 05:25 WBC 28.2 H RBC 3.24 L Hgb 6.9 L Hct 23.2 L MCV 72 L MCH 21 L RDW 36.5 H Seg Neuts % (Manual) 80.0 H Lymphocytes % (Manual) Nucleated RBC % Seg Neutrophils # Man 22.6 H Lymphocytes # (Manual) Monocytes # (Manual) 1.4 H PT 16.6 H INR 1.38 H APTT 39.7 H Sodium 135 L Potassium 6.2 H* Chloride 95.7 L Carbon Dioxide 18 L BUN 71 H Creatinine 16.8 H Glucose POC Glucose TIBC Ferritin AST ALT < 5 L Troponin T C-Reactive Protein NT-Pro-B Natriuret Pep Total Protein Albumin 3.3 L Triglycerides LDL Cholesterol Direct HDL Cholesterol Amylase Lipase Crossmatch 07/26/19 07/26/19 07/26/19 06:31 06:31 06:33 WBC RBC Hgb Hct MCV MCH RDW Seg Neuts % (Manual) Lymphocytes % (Manual) Nucleated RBC % Seg Neutrophils # Man Lymphocytes # (Manual) Monocytes # (Manual) PT 16.7 H INR 1.39 H APTT 41.1 H Sodium Potassium Chloride Carbon Dioxide BUN Creatinine Glucose POC Glucose TIBC Ferritin AST < 5 L ALT < 5 L Troponin T 0.072 H C-Reactive Protein NT-Pro-B Natriuret Pep 31096 H Total Protein Albumin 3.2 L Triglycerides 170 H LDL Cholesterol Direct 30 L HDL Cholesterol 25 L Amylase Lipase Crossmatch See Detail 07/26/19 07/26/19 07/26/19 07:25 07:59 09:55 WBC RBC Hgb Hct MCV MCH RDW Seg Neuts % (Manual) Lymphocytes % (Manual) Nucleated RBC % Seg Neutrophils # Man Lymphocytes # (Manual) Monocytes # (Manual) PT INR APTT Sodium Potassium Chloride Carbon Dioxide BUN Creatinine Glucose POC Glucose 54 L 150 H 41 L TIBC Ferritin AST ALT Troponin T C-Reactive Protein NT-Pro-B Natriuret Pep Total Protein Albumin Triglycerides LDL Cholesterol Direct HDL Cholesterol Amylase Lipase Crossmatch 07/26/19 07/26/19 07/26/19 10:33 10:53 11:31 WBC RBC Hgb Hct MCV MCH RDW Seg Neuts % (Manual) Lymphocytes % (Manual) Nucleated RBC % Seg Neutrophils # Man Lymphocytes # (Manual) Monocytes # (Manual) PT INR APTT Sodium 135 L Potassium 6.1 H* Chloride 94.1 L Carbon Dioxide 19 L BUN 71 H Creatinine 16.4 H Glucose POC Glucose 66 L 51 L TIBC Ferritin AST ALT Troponin T C-Reactive Protein NT-Pro-B Natriuret Pep Total Protein Albumin Triglycerides LDL Cholesterol Direct HDL Cholesterol Amylase Lipase Crossmatch 07/26/19 07/26/19 07/26/19 12:18 13:04 20:51 WBC RBC Hgb Hct MCV MCH RDW Seg Neuts % (Manual) Lymphocytes % (Manual) Nucleated RBC % Seg Neutrophils # Man Lymphocytes # (Manual) Monocytes # (Manual) PT INR APTT Sodium Potassium Chloride Carbon Dioxide BUN Creatinine Glucose POC Glucose < 40 L 162 H 67 L TIBC Ferritin AST ALT Troponin T C-Reactive Protein NT-Pro-B Natriuret Pep Total Protein Albumin Triglycerides LDL Cholesterol Direct HDL Cholesterol Amylase Lipase Crossmatch 07/28/19 07/28/19 07/28/19 07:01 07:01 15:23 WBC 29.4 H RBC Hgb 9.0 L Hct 28.6 L MCV 74 L MCH 23 L RDW 30.9 H Seg Neuts % (Manual) 92.0 H Lymphocytes % (Manual) 3.0 L Nucleated RBC % Seg Neutrophils # Man 27.0 H Lymphocytes # (Manual) 0.9 L Monocytes # (Manual) 0.9 H PT INR APTT Sodium Potassium 5.9 H 5.2 H Chloride 94.0 L 94.7 L Carbon Dioxide BUN 55 H 64 H Creatinine 9.5 H 9.8 H Glucose 105 H POC Glucose TIBC Ferritin AST ALT Troponin T C-Reactive Protein NT-Pro-B Natriuret Pep Total Protein Albumin Triglycerides LDL Cholesterol Direct HDL Cholesterol Amylase Lipase Crossmatch 07/29/19 07/29/19 07/30/19 10:02 10:02 02:40 WBC 13.4 H 19.2 H RBC Hgb 9.4 L 8.5 L Hct 30.2 L 27.8 L MCV 75 L 75 L MCH 24 L 23 L RDW 30.9 H 31.3 H Seg Neuts % (Manual) 91.0 H 83.0 H Lymphocytes % (Manual) 7.0 L 10.0 L Nucleated RBC % Seg Neutrophils # Man 12.2 H 15.9 H Lymphocytes # (Manual) 0.9 L Monocytes # (Manual) 1.3 H PT INR APTT Sodium Potassium Chloride 94.4 L Carbon Dioxide BUN 49 H Creatinine 7.3 H Glucose POC Glucose TIBC Ferritin AST ALT Troponin T C-Reactive Protein NT-Pro-B Natriuret Pep Total Protein Albumin Triglycerides LDL Cholesterol Direct HDL Cholesterol Amylase Lipase Crossmatch 07/30/19 07/30/19 07/30/19 02:40 23:32 23:32 WBC RBC Hgb Hct MCV MCH RDW Seg Neuts % (Manual) Lymphocytes % (Manual) Nucleated RBC % Seg Neutrophils # Man Lymphocytes # (Manual) Monocytes # (Manual) PT INR APTT Sodium Potassium 6.0 H D 5.3 H 5.6 H Chloride 97.0 L Carbon Dioxide BUN 67 H 32 H Creatinine 8.6 H 4.5 H Glucose 105 H POC Glucose TIBC Ferritin AST ALT Troponin T C-Reactive Protein NT-Pro-B Natriuret Pep Total Protein Albumin Triglycerides LDL Cholesterol Direct HDL Cholesterol Amylase Lipase Crossmatch 07/31/19 07/31/19 08/01/19 04:39 04:39 04:00 WBC 29.6 H RBC 3.45 L Hgb 8.4 L Hct 26.8 L MCV 78 L MCH 25 L RDW 27.3 H Seg Neuts % (Manual) 83.0 H Lymphocytes % (Manual) 10.0 L Nucleated RBC % Seg Neutrophils # Man 24.6 H Lymphocytes # (Manual) Monocytes # (Manual) 2.1 H PT INR APTT Sodium 149 H Potassium Chloride Carbon Dioxide BUN 39 H 74 H Creatinine 5.2 H 7.8 H Glucose 125 H POC Glucose TIBC Ferritin AST ALT Troponin T C-Reactive Protein NT-Pro-B Natriuret Pep Total Protein Albumin Triglycerides LDL Cholesterol Direct HDL Cholesterol Amylase Lipase Crossmatch 08/01/19 08/01/19 08/01/19 04:00 13:17 Unknown WBC 31.3 H RBC 3.28 L Hgb 8.1 L Hct 25.4 L MCV 78 L MCH 25 L RDW 28.6 H Seg Neuts % (Manual) Lymphocytes % (Manual) Nucleated RBC % 2.0 H Seg Neutrophils # Man 16.6 H Lymphocytes # (Manual) Monocytes # (Manual) PT INR APTT Sodium Potassium Chloride Carbon Dioxide BUN Creatinine Glucose POC Glucose TIBC Ferritin AST ALT Troponin T C-Reactive Protein 55.00 H NT-Pro-B Natriuret Pep Total Protein Albumin Triglycerides LDL Cholesterol Direct HDL Cholesterol Amylase 834 H Lipase 241 H Crossmatch 08/02/19 08/02/19 08/02/19 09:03 09:03 12:50 WBC 45.4 H* RBC 2.86 L Hgb 6.9 L Hct 21.8 L MCV 76 L MCH 24 L RDW 29.5 H Seg Neuts % (Manual) 86.0 H Lymphocytes % (Manual) 3.0 L Nucleated RBC % 1.0 H Seg Neutrophils # Man 39.0 H Lymphocytes # (Manual) Monocytes # (Manual) PT INR APTT Sodium 147 H Potassium 5.5 H Chloride Carbon Dioxide BUN 118 H Creatinine 9.9 H Glucose 122 H POC Glucose TIBC Ferritin AST ALT Troponin T C-Reactive Protein NT-Pro-B Natriuret Pep Total Protein 6.2 L Albumin 2.7 L Triglycerides LDL Cholesterol Direct HDL Cholesterol Amylase Lipase Crossmatch See Detail 08/03/19 08/03/19 08/03/19 04:15 04:15 04:15 WBC 52.2 H* RBC Hgb Hct MCV MCH 26 L RDW 19.0 H Seg Neuts % (Manual) Lymphocytes % (Manual) Nucleated RBC % Seg Neutrophils # Man Lymphocytes # (Manual) Monocytes # (Manual) PT INR APTT Sodium Potassium Chloride 90.6 L Carbon Dioxide BUN 47 H Creatinine 4.9 H D Glucose 140 H POC Glucose TIBC 150 L Ferritin 5729.0 H AST ALT Troponin T C-Reactive Protein NT-Pro-B Natriuret Pep Total Protein Albumin 3.1 L Triglycerides 261 H LDL Cholesterol Direct HDL Cholesterol Amylase Lipase Crossmatch 08/03/19 10:23 WBC RBC Hgb Hct MCV MCH RDW Seg Neuts % (Manual) Lymphocytes % (Manual) Nucleated RBC % Seg Neutrophils # Man Lymphocytes # (Manual) Monocytes # (Manual) PT INR APTT Sodium Potassium Chloride Carbon Dioxide BUN Creatinine Glucose POC Glucose TIBC Ferritin AST ALT Troponin T C-Reactive Protein 40.30 H NT-Pro-B Natriuret Pep Total Protein Albumin Triglycerides LDL Cholesterol Direct HDL Cholesterol Amylase Lipase 103 H Crossmatch
--- NOTE | 2019-08-03 12:24 | Progress Note ---
Assessment and Plan - Patient Problems (1) Vulvar abscess Current Visit: Yes Status: Acute Plan to address problem: abscess clinically improved with active drainage and decreased overall size continue current management with keeping site clean case discussed with Dr Rodgers Leukocytosis is worsening despite antibiotic therapy awaiting recent CT results (2) Leukocytosis Current Visit: Yes Status: Acute Qualifiers: Qualified Code(s): D72.829 - Elevated white blood cell count, unspecified Subjective - Subjective Date of service: 08/03/19 Principal diagnosis: anemia, dizziness Interval history: Patient being evaluated for a right labial abscess. Yesterday purulent material was expressed with significant decompression of the area. Today the site demonstrates active drainage. Mildly indurated however area is soft. Consent to proceed was obtained from family members present. The area was prepped with betadine. 1% lidocaine 5cc was injected into the site. An eleven blade scalpel was used and a small incision was made. Minimal amount of drainage obtained. Patient did not tolerate procedure well. Able to express the site with pressure. The area was cleaned again with betadine. Continue BID perineal care. Objective - Vital Signs Latest vital signs: Vital Signs Temp Pulse Pulse Resp BP Pulse Ox 08/03/19 12:00 105 H 18 98 08/03/19 08:00 99.9 F H 106 H 18 98 08/03/19 04:00 98.2 F 89 19 97 08/03/19 01:00 96 H 21 95 08/03/19 00:01 99.5 F 08/02/19 23:40 98 H 104/55 08/02/19 20:29 98.9 F 08/02/19 20:10 95 08/02/19 19:45 98.8 F 91 H 26 H 103/57 08/02/19 19:30 90 90/54 08/02/19 19:15 96 H 84/46 08/02/19 19:00 93 H 80/48 08/02/19 18:45 95 H 83/46 08/02/19 18:30 99.8 F H 99 H 17 96/51 98 08/02/19 18:15 99 H 96/51 08/02/19 18:05 95 H 96/51 08/02/19 18:00 99.0 F 95 H 28 H 89/51 99 08/02/19 17:45 99 H 90/50 08/02/19 17:43 98.9 F 99 H 28 H /50 99 08/02/19 17:35 98 H 9050 08/02/19 17:30 99.0 F 109 H 18 84/45 99 08/02/19 17:15 99.0 F 117 H 18 97/54 99 08/02/19 17:05 103 H 94/57 08/02/19 17:00 103 H 87/51 08/02/19 16:59 99.0 F 104 H 18 87/51 99 08/02/19 16:45 106 H 90/50 08/02/19 16:30 103 H 100/57 08/02/19 16:15 98 H 109/74 08/02/19 16:00 98.7 F 94 H 21 110/77 Intake and Output 08/02/19 08/03/19 08/03/19 22:59 06:59 14:59 Intake Total 500 255 Output Total 200 Balance 300 255 Intake: IV 205 FLAGYL 500 MG/100 ML 500 100 mg In 100 ml @ 100 mls/hr IV Q8HR JOEL Rx#: [id number] Keppra 500 mg In D5w 100 105 ml @ 400 mls/hr IV BID JOEL Rx#:[id number] Oral 0 50 Blood Product 500 Leukoreduced Red Blood 250 Cells Unit [id number] Leukoreduced Red Blood 250 Cells Unit [id number] Output: Emesis 200 Other: Total, Intake Amount 0 50 Total, Output Amount 200 Voiding Method Incontinent Incontinent - Exam Vulva: both: normal (see note) - Labs Labs: Abnormal lab results 08/02/19 08/02/19 08/03/19 Range/Units 09:03 12:50 04:15 WBC 45.4 H* 52.2 H* (4.5-11.0) K/mm3 MCH 26 L (28-32) pg RDW 19.0 H (13.2-15.2) % Nucleated RBC % 1.0 H (0.0-0.9) % Chloride (98-107) mmol/L BUN (7-17) mg/dL Creatinine (0.7-1.2) mg/dL Glucose (65-100) mg/dL TIBC (250-450) mcg/dL Ferritin (13.0-400.0) ng/mL C-Reactive Protein (0.00-1.30) mg/dL Albumin (3.9-5) g/dL Triglycerides (2-149) mg/dL Lipase (13-60) units/L Crossmatch See Detail 08/03/19 08/03/19 08/03/19 Range/Units 04:15 04:15 10:23 WBC (4.5-11.0) K/mm3 MCH (28-32) pg RDW (13.2-15.2) % Nucleated RBC % (0.0-0.9) % Chloride 90.6 L (98-107) mmol/L BUN 47 H (7-17) mg/dL Creatinine 4.9 H D (0.7-1.2) mg/dL Glucose 140 H (65-100) mg/dL TIBC 150 L (250-450) mcg/dL Ferritin 5729.0 H (13.0-400.0) ng/mL C-Reactive Protein 40.30 H (0.00-1.30) mg/dL Albumin 3.1 L (3.9-5) g/dL Triglycerides 261 H (2-149) mg/dL Lipase 103 H (13-60) units/L Crossmatch
--- NOTE | 2019-08-03 12:40 | Gastroenterology Progress Note ---
Assessment and Plan # Acute pancreatitis - etiology unclear. possible medication induced. US negative for gallstones. - clinically improving with abdominal exam better and less pain although wbc continues to trend up which may be due to overall sepsis and other source of infection. - continue with supportive care. - will follow. Subjective Date of service: 08/03/19 Principal diagnosis: anemia, dizziness Interval history: patient s/p I&D and more alert today. Objective - Constitutional Vitals: Temp Pulse Resp BP Pulse Ox 99.9 F H 105 H 18 104/55 98 08/03/19 08:00 08/03/19 12:00 08/03/19 12:00 08/02/19 23:40 08/03/19 12:00 General appearance: no acute distress - EENT Eyes: EOM intact - Neck Neck: supple - Respiratory Respiratory effort: normal - Cardiovascular Rhythm: regular Heart Sounds: Present: S1 & S2 - Gastrointestinal General gastrointestinal: Present: soft, tender, non-distended - Integumentary Integumentary: Present: clear, warm - Labs CBC & Chem 7: 08/03/19 04:15 08/03/19 04:15 Labs: Laboratory Results - last 24 hr 08/02/19 08/02/19 08/02/19 09:03 12:50 15:24 WBC 45.4 H* RBC Hgb Hct MCV MCH MCHC RDW Plt Count 180 Nucleated RBC % 1.0 H Pathologist Review Toxic Granulation 3+ Dohle Bodies 1+ Sodium Potassium Chloride Carbon Dioxide Anion Gap BUN Creatinine Estimated GFR BUN/Creatinine Ratio Glucose Lactic Acid 1.40 Calcium Iron TIBC Ferritin Total Bilirubin AST ALT Alkaline Phosphatase C-Reactive Protein Total Protein Albumin Albumin/Globulin Ratio Triglycerides Lipase Procalcitonin Random Vancomycin Blood Type A POSITIVE Antibody Screen Negative Crossmatch See Detail 08/02/19 08/03/19 08/03/19 16:38 04:15 04:15 WBC 52.2 H* RBC 4.02 Hgb 10.5 D Hct 31.7 D MCV 79 MCH 26 L MCHC 33 RDW 19.0 H Plt Count 185 Nucleated RBC % Pathologist Review Toxic Granulation Dohle Bodies Sodium 143 Potassium 4.8 Chloride 90.6 L Carbon Dioxide 29 Anion Gap 28 BUN 47 H Creatinine 4.9 H D Estimated GFR 13 BUN/Creatinine Ratio 10 Glucose 140 H Lactic Acid Calcium 9.4 Iron 58 TIBC 150 L Ferritin Total Bilirubin 0.90 AST 34 ALT 17 Alkaline Phosphatase 127 C-Reactive Protein Total Protein 7.4 Albumin 3.1 L Albumin/Globulin Ratio 0.7 Triglycerides 261 H Lipase Procalcitonin 22.18 Random Vancomycin Blood Type Antibody Screen Crossmatch 08/03/19 08/03/19 08/03/19 04:15 04:15 10:23 WBC RBC Hgb Hct MCV MCH MCHC RDW Plt Count Nucleated RBC % Pathologist Review Toxic Granulation Dohle Bodies Sodium Potassium Chloride Carbon Dioxide Anion Gap BUN Creatinine Estimated GFR BUN/Creatinine Ratio Glucose Lactic Acid Calcium Iron TIBC Ferritin 5729.0 H Total Bilirubin AST ALT Alkaline Phosphatase C-Reactive Protein 40.30 H Total Protein Albumin Albumin/Globulin Ratio Triglycerides Lipase 103 H Procalcitonin Random Vancomycin 29.0 Blood Type Antibody Screen Crossmatch
--- NOTE | 2019-08-03 13:15 | Progress Note ---
Assessment and Plan Assessment and plan: 29-year-old -[place] female patient with significant past medical history of end-stage renal disease on hemodialysis lupus chronic pain syndrome history of MRSA infection in the past was admitted through emergency room with bilateral lower extremity cramping burning sensation hyperkalemia fluid overload fevers, treated empirically with antibiotics received hemodialysis per schedule, Wound cultures positive for Escherichia coli on appropriate antibiotics Patient developed new onset seizures on 07/30/2019, received Keppra and Ativan Evaluated by neurology, CT head negative, patient remained Lethargic noncommunicative since first episode of seizure ,MRI done today was negative for acute abnormalities, consulted second neurologist For second opinion And also has Persistent leukocytosis, ID evaluated, ordered C. difficile. Lumbar puncture done * Transfuse 2 unit of PRBC with dialysis today * Transferred to [facility] * Clinically improving. * CT abdomen and pelvis reviewed, concerning for severe pancreatitis, nectrotizing tissue could not be excluded --New onset seizures : On Keppra, Seizure precautions, Follow EEG, CT head negative for acute abnormality MRI brain no acute abnormalities . Neurology following -No evidence of Meningitis on LP lab review --Severe Metabolic encephalopathy; multifactorial Sepsis, seizures, acute pancreatitis , ESRD. Bun much improved following dialysis --Persistent leukocytosis; altered level of consciousness Escherichia coli sepsis Continue cefepime ?Reactive vs from acute pancreatitis C. difficile, lumbar puncture recommended by ID --Acute pancreatitis on CT/elevated lipase Continue supportive care, GI consulted --Episode of Coffee-ground emesis; closely monitor H&H GI consult. Give additional 2 units PRBC for a total of 4 units --History of lupus; resume home medications Possible flareup, monitor --Sepsis; Escherichia coli wound infection IV antibiotics, supportive care --Hypotension; fluid bolus 250 ml NS, as needed If no improvement, consider vasopressors and transferred to ICU --Hyperkalemia; resolved secondary to end-stage renal disease --End-stage renal disease; on hemodialysis HD per schedule, nephrology --Moderate malnutrition/hypoalbuminemia; Dobbhoff placement Tube feeding per protocol --DVT prophylaxis; Lovenox renal dose Plan of care reviewed with the patient's nurse D/W Family members patient's sister/next of kin Mariya Painting at [phone] UPDATED Disposition; patient is critically ill, follow multiple [facility] consultant's Evaluations and recommendations The high probability of a clinically significant, sudden or life threatening deterioration of the [NEURO, RENAL, GI] system(s) required my full and direct attention, intervention and personal management. The aggregate critical care time was [35] minutes. This time is in addition to time spent performing reported procedures but includes the following: [X] Data Review and interpretation [X] Patient assessment and monitoring of vital signs [X] Documentation [X] Medication orders and management History Interval history: Patient seen and examined, more awake today and following commands, still lethargic, sisters at bedside Hospitalist Physical - Physical exam Narrative exam: General appearance: Present: mild distress, well-nourished, obese, following commands, still lethergic - EENT Eyes: Present: PERRL, EOM intact - Neck Neck: Present: supple, normal ROM - Respiratory Respiratory effort: normal Respiratory: bilateral: diminished, rales, negative: rhonchi, wheezing - Cardiovascular Rhythm: regular Heart Sounds: Present: S1 & S2 - Extremities Extremities: no ischemia, No edema - Abdominal General gastrointestinal: soft, NON TENDER , non-distended, normal bowel sounds - Integumentary Integumentary: Present:excouration in the forhead, perianal dressing noted warm - Psychiatric Psychiatric: other FLAT AFFECT - Neurologic Neurologic: FOLLOWING SOME COMMANDS - Constitutional Vitals: Temp Pulse Resp BP Pulse Ox 99.9 F H 105 H 18 104/55 98 08/03/19 08:00 08/03/19 12:00 08/03/19 12:00 08/02/19 23:40 08/03/19 12:00 General appearance: Present: mild distress, well-nourished, obese, other (uncommunicative, lethargic, responds only to deep stimuli) Results - Labs CBC & Chem 7: 08/03/19 04:15 08/03/19 04:15 Labs: Laboratory Last Values WBC 52.2 K/mm3 (4.5-11.0) H* 08/03/19 04:15 RBC 4.02 M/mm3 (3.65-5.03) 08/03/19 04:15 Hgb 10.5 gm/dl (10.1-14.3) D 08/03/19 04:15 Hct 31.7 % (30.3-42.9) D 08/03/19 04:15 MCV 79 fl (79-97) 08/03/19 04:15 MCH 26 pg (28-32) L 08/03/19 04:15 MCHC 33 % (30-34) 08/03/19 04:15 RDW 19.0 % (13.2-15.2) H 08/03/19 04:15 Plt Count 185 K/mm3 (140-440) 08/03/19 04:15 Lymph # Disassembler Product 08/02/19 09:03 Add Manual Diff Complete 08/02/19 09:03 Total Counted 100 08/02/19 09:03 Seg Neuts % (Manual) 86.0 % (40.0-70.0) H 08/02/19 09:03 Band Neutrophils % 8.0 % 08/02/19 09:03 Lymphocytes % (Manual) 3.0 % (13.4-35.0) L 08/02/19 09:03 Reactive Lymphs % (Man) 0 % 08/02/19 09:03 Monocytes % (Manual) 0 % (0.0-7.3) 08/02/19 09:03 Eosinophils % (Manual) 0 % (0.0-4.3) 08/02/19 09:03 Basophils % (Manual) 0 % (0.0-1.8) 08/02/19 09:03 Metamyelocytes % 2.0 % 08/02/19 09:03 Myelocytes % 1.0 % 08/02/19 09:03 Promyelocytes % 0 % 08/02/19 09:03 Blast Cells % 0 % 08/02/19 09:03 Nucleated RBC % 1.0 % (0.0-0.9) H 08/02/19 09:03 Seg Neutrophils # Man 39.0 K/mm3 (1.8-7.7) H 08/02/19 09:03 Band Neutrophils # 3.6 K/mm3 08/02/19 09:03 Lymphocytes # (Manual) 1.4 K/mm3 (1.2-5.4) 08/02/19 09:03 Abs React Lymphs (Man) 0.0 K/mm3 08/02/19 09:03 Monocytes # (Manual) 0.0 K/mm3 (0.0-0.8) 08/02/19 09:03 Eosinophils # (Manual) 0.0 K/mm3 (0.0-0.4) 08/02/19 09:03 Basophils # (Manual) 0.0 K/mm3 (0.0-0.1) 08/02/19 09:03 Metamyelocytes # 0.9 K/mm3 08/02/19 09:03 Myelocytes # 0.5 K/mm3 08/02/19 09:03 Promyelocytes # 0.0 K/mm3 08/02/19 09:03 Blast Cells # 0.0 K/mm3 08/02/19 09:03 Pathologist Review 08/02/19 09:03 WBC Morphology Not Reportable 08/01/19 Unknown Hypersegmented Neuts Not Reportable 08/02/19 09:03 Hyposegmented Neuts Not Reportable 08/02/19 09:03 Hypogranular Neuts Not Reportable 08/02/19 09:03 Smudge Cells Not Reportable 08/02/19 09:03 Toxic Granulation 3+ 08/02/19 09:03 Toxic Vacuolation Not Reportable 08/02/19 09:03 Dohle Bodies 1+ 08/02/19 09:03 Pelger-Huet Anomaly Not Reportable 08/02/19 09:03 Rose Rods Not Reportable 08/02/19 09:03 Platelet Estimate Consistent w auto 08/02/19 09:03 Clumped Platelets Not Reportable 08/02/19 09:03 Plt Clumps, EDTA Not Reportable 08/02/19 09:03 Large Platelets Not Reportable 08/02/19 09:03 Giant Platelets Not Reportable 08/02/19 09:03 Platelet Satelliting Not Reportable 08/02/19 09:03 Plt Morphology Comment Not Reportable 08/02/19 09:03 RBC Morphology Not Reportable 08/02/19 09:03 Dimorphic RBCs Not Reportable 08/02/19 09:03 Polychromasia Not Reportable 08/02/19 09:03 Hypochromasia 2+ 08/02/19 09:03 Poikilocytosis Not Reportable 08/02/19 09:03 Anisocytosis 1+ 08/02/19 09:03 Microcytosis Not Reportable 08/02/19 09:03 Macrocytosis Not Reportable 08/02/19 09:03 Spherocytes Not Reportable 08/02/19 09:03 Pappenheimer Bodies Not Reportable 08/02/19 09:03 Sickle Cells Not Reportable 08/02/19 09:03 Target Cells 1+ 08/02/19 09:03 Tear Drop Cells Not Reportable 08/02/19 09:03 Ovalocytes Not Reportable 08/02/19 09:03 Helmet Cells Not Reportable 08/02/19 09:03 [place] Bodies Not Reportable 08/02/19 09:03 Raymond Rings Not Reportable 08/02/19 09:03 Weikert Cells Not Reportable 08/02/19 09:03 Bite Cells Not Reportable 08/02/19 09:03 Crenated Cell Not Reportable 08/02/19 09:03 Elliptocytes Not Reportable 08/02/19 09:03 Acanthocytes (Spur) Not Reportable 08/02/19 09:03 Rouleaux Not Reportable 08/02/19 09:03 Hemoglobin C Crystals Not Reportable 08/02/19 09:03 Schistocytes Not Reportable 08/02/19 09:03 Malaria parasites Not Reportable 08/02/19 09:03 ESR 78 mm/Hr (0-20) 07/26/19 05:25 Dinesh Bodies Not Reportable 08/02/19 09:03 Hem Pathologist Commnt Sent to pathology 08/02/19 09:03 PT 16.7 Sec. (12.2-14.9) H 07/26/19 06:31 INR 1.39 (0.87-1.13) H 07/26/19 06:31 APTT 41.1 Sec. (24.2-36.6) H 07/26/19 06:31 Sodium 143 mmol/L (137-145) 08/03/19 04:15 Potassium 4.8 mmol/L (3.6-5.0) 08/03/19 04:15 Chloride 90.6 mmol/L (98-107) L 08/03/19 04:15 Carbon Dioxide 29 mmol/L (22-30) 08/03/19 04:15 Anion Gap 28 mmol/L 08/03/19 04:15 BUN 47 mg/dL (7-17) H 08/03/19 04:15 Creatinine 4.9 mg/dL (0.7-1.2) H D 08/03/19 04:15 Estimated GFR 13 ml/min 08/03/19 04:15 BUN/Creatinine Ratio 10 % 08/03/19 04:15 Glucose 140 mg/dL (65-100) H 08/03/19 04:15 POC Glucose 99 (70-105) 07/30/19 11:06 Lactic Acid 1.40 mmol/L (0.7-2.0) 08/02/19 15:24 Calcium 9.4 mg/dL (8.4-10.2) 08/03/19 04:15 Magnesium 2.00 mg/dL (1.7-2.3) 07/30/19 23:32 Iron 58 ug/dL (37-170) 08/03/19 04:15 TIBC 150 mcg/dL (250-450) L 08/03/19 04:15 Ferritin 5729.0 ng/mL (13.0-400.0) H 08/03/19 04:15 Total Bilirubin 0.90 mg/dL (0.1-1.2) 08/03/19 04:15 Direct Bilirubin < 0.2 mg/dL (0-0.2) 07/26/19 06:31 Indirect Bilirubin 0.1 mg/dL 07/26/19 06:31 AST 34 units/L (5-40) 08/03/19 04:15 ALT 17 units/L (7-56) 08/03/19 04:15 Alkaline Phosphatase 127 units/L (35-129) 08/03/19 04:15 Total Creatine Kinase 43 units/L (30-135) 07/26/19 05:25 Troponin T 0.072 ng/mL (0.00-0.029) H 07/26/19 06:31 C-Reactive Protein 40.30 mg/dL (0.00-1.30) H 08/03/19 10:23 NT-Pro-B Natriuret Pep 95249 pg/mL (0-450) H 07/26/19 06:31 Total Protein 7.4 g/dL (6.3-8.2) 08/03/19 04:15 Albumin 3.1 g/dL (3.9-5) L 08/03/19 04:15 Albumin/Globulin Ratio 0.7 % 08/03/19 04:15 Triglycerides 261 mg/dL (2-149) H 08/03/19 04:15 Cholesterol 91 mg/dL (50-199) 07/26/19 06:31 LDL Cholesterol Direct 30 mg/dL (50-130) L 07/26/19 06:31 HDL Cholesterol 25 mg/dL (40-59) L 07/26/19 06:31 Cholesterol/HDL Ratio 3.64 % 07/26/19 06:31 Amylase 834 units/L (27-131) H 08/01/19 04:00 Lipase 103 units/L (13-60) H 08/03/19 10:23 Procalcitonin 22.18 ng/mL (<0.15) 08/02/19 16:38 HCG, Qual Negative (Negative) 07/30/19 02:40 HCG, Quant < 2 mIU/mL (0-4) 07/26/19 05:25 CSF Appearance Clear 08/01/19 10:40 CSF Color Colorless 08/01/19 10:40 CSF WBC 0 /mm3 (1-10) 08/01/19 10:40 CSF RBC 0 /mm3 (0-0) 08/01/19 10:40 CSF Seg Neutrophils 0 % (0-6) 08/01/19 10:40 CSF Lymphocytes % 0 % (40-80) 08/01/19 10:40 CSF Reactive Lymphs 0 % 08/01/19 10:40 CSF Monocytes % 0 % (15-45) 08/01/19 10:40 CSF Eosinophils % 0 % 08/01/19 10:40 CSF Basophils 0 % 08/01/19 10:40 CSF Pathologist Review C 08/01/19 10:40 Random Vancomycin 29.0 ug/mL (0-40.0) 08/03/19 04:15 RPR Nonreactive (Nonreactive) 07/26/19 05:25 Hepatitis A IgM Ab Non-reactive (NonReactive) 07/26/19 10:53 Hep Bs Antigen Non-reactive (Negative) 07/26/19 10:53 Hep B Core IgM Ab Non-reactive (NonReactive) 07/26/19 10:53 Hepatitis C Antibody Non-reactive (NonReactive) 07/26/19 10:53 Blood Type A POSITIVE 08/02/19 12:50 Antibody Screen Negative 08/02/19 12:50 Crossmatch See Detail 08/02/19 12:50 Active Medications - Current Medications Current Medications: Generic Name Dose Route Start Last Admin Trade Name Freq PRN Reason Stop Dose Admin Acetaminophen 650 mg 07/26/19 11:08 Tylenol PO Q6H PRN Pain, Mild (1-3) Albuterol 2.5 mg 07/26/19 15:39 Proventil IH QID PRN Wheezing Lipase/Protease/Amylase 1 each 07/31/19 08:26 Pancremarcella Diane 10,500 Unit FEEDTUBE PRN PRN For Clogged Feeding Tube Cyanocobalamin 1,000 mcg 07/27/19 10:00 08/03/19 09:49 Vitamin B-12 PO Not Given QDAY [facility] Dextrose 25 ml 07/26/19 11:06 07/26/19 12:32 D50w (25gm) Syringe IV 25 ml PRN PRN Administration Hypoglycemia Epoetin Mitch 10,000 unit 07/26/19 10:10 07/30/19 19:19 Procrit IV 10,000 unit FAN PRN Administration hemodialysis Folic Acid 1 mg 07/27/19 10:00 08/03/19 09:49 Folvite PO Not Given QDAY [facility] Hydralazine HCl 10 mg 07/30/19 20:16 07/31/19 00:05 Apresoline IV 10 mg Q4HR PRN Administration Blood Pressure Hydroxychloroquine Sulfate 200 mg 07/27/19 10:00 08/03/19 09:49 Plaquenil PO Not Given QDAY [facility] Hydroxyzine HCl 50 mg 07/27/19 10:00 08/03/19 09:48 Atarax PO Not Given QDAY [facility] Cefepime HCl 1 gm in 100 mls @ 200 mls/hr 07/27/19 10:00 08/03/19 10:33 Maxipime/Ns 1 Gm/100 Ml IV 200 mls/hr Q24HR JOEL Administration Protocol Levetiracetam 500 mg/ Dextrose 105 mls @ 400 mls/hr 07/30/19 12:00 08/03/19 10:34 IV 400 mls/hr BID JOEL Administration Sodium Chloride 100 mls @ 999 mls/hr 08/02/19 08:56 Nacl 0.9% IV FAN PRN Hypotension Metronidazole 500 mg in 100 mls @ 100 mls/hr 08/02/19 16:00 08/03/19 06:07 Flagyl 500 Mg/100 Ml IV 100 mls/hr Q8HR JOEL Administration Protocol Vancomycin HCl 1 gm in 250 mls @ 166.667 mls/hr 08/04/19 20:00 Vancomycin/Ns 1 Gm/250 Ml IV TuThSa [facility] Labetalol HCl 300 mg 07/26/19 16:00 08/03/19 10:35 Normodyne PO Not Given BID [facility] Losartan Potassium 50 mg 07/27/19 10:00 08/03/19 10:35 Cozaar PO Not Given QDAY [facility] Morphine Sulfate 1 mg 07/29/19 15:49 07/29/19 23:18 Morphine IV 1 mg Q8H PRN Administration Pain, Moderate (4-6) Mycophenolate Mofetil 500 mg 07/27/19 10:00 08/03/19 09:48 Cellcept PO Not Given QDAY [facility] Ondansetron HCl 4 mg 07/29/19 23:31 08/03/19 06:07 Zofran IV 4 mg Q6H PRN Administration Nausea And Vomiting Oxycodone/Acetaminophen 1 tab 07/29/19 15:49 Percocet 5/325 PO Q8H PRN Pain, Moderate (4-6) Pantoprazole Sodium 40 mg 08/02/19 14:00 08/03/19 10:34 Protonix IV 40 mg BID [facility] Administration Prednisone 20 mg 07/27/19 10:00 08/03/19 09:48 Deltasone PO Not Given QDAY [facility] Sevelamer Carbonate 800 mg 07/26/19 16:30 08/03/19 08:04 Renvela PO Not Given 0730,1630 [facility] Simple Syrup 15 ml 07/31/19 08:26 Simple Syrup FEEDTUBE PRN PRN Hypoglycemia Simple Syrup 30 ml 07/31/19 08:26 Simple Syrup FEEDTUBE PRN PRN Hypoglycemia Sodium Bicarbonate 325 mg 07/31/19 08:26 Sodium Bicarbonate FEEDTUBE PRN PRN For Clogged Feeding Tube Nutrition/Malnutrition Assess - Dietary Evaluation Nutrition/Malnutrition Findings: Nutrition Notes Start: 07/26/19 14:40 Freq: Status: Active Protocol: Document 08/02/19 11:42 PS (Rec: 08/02/19 12:33 PS [id number]) Co-Sign 08/02/19 11:42 LP Nutrition Notes Need for Assessment generated from: MD Order Initial or Follow up Reassessment Current Diagnosis CKD (stage V CKD),Hypertension Other Pertinent Diagnosis on HD, MRSA, lupus, anemia, wounds Current Diet Tube Feeding Labs/Tests 08/01 Na 149 BUN 74 Creatinine 7.8 Pertinent Medications Reviewed Height 5 ft 3 in Weight 63.4 kg [place] Body Weight (kg) 52.27 BMI 24.7 Weight change and time frame Wt. change noted and possibly due to fluid Subjective/Other Information Follow up for tube feed start/ tolerance. Nepro was not attached or started. Noted wt. change. Nurse checked bed and 63.4 kg was read. Pt. did not respond to name. Pt. has slight temporal wasting. Burn Absent Trauma Absent Minimum of two criteria Yes Energy Intake (severe) < or equal to 50% Estimated Energy Requirement > or equal to 5 days Muscle Mass Mild Depletion (non-severe) Fluid Accumulation Mild (non-severe) #3 Nutrition Diagnosis Malnutrition Etiology inadequate oral intake As Evidenced by Signs and Symptoms < or equal to 50% estimated energy intake in > or equal to 5 days. Slight temporal wasting. Non-pitting edema. #2 Nutrition Diagnosis Increased nutrient needs ( specify in comment below) Diagnosis Progress(for reassessment Continues documentation) #1 Nutrition Diagnosis Inadequate oral intake As Evidenced by Signs and Symptoms Pt not eating and has dobhoff placed Diagnosis Progress(for reassessment Worsened documentation) Is patient on ventilator? No Is Patient Ambulatory and/or Out of Bed Yes REE-([facility]-ambulatory/OOB) [ 1720.069 [id number]] Calculation Used for Recommendations [facility] Additional Notes PRO: 76- 95 g/day (1.2-1.5g/kg /day AdBW 65kg) Fluid: 1-1.5L/day Nutrition Intervention Change Diet Order: Start TF as tolerated Nutrition Support: Nepro at 45ml/hr Flush with 120ml q4h Kcal 1,944 Protein (gm) 87 Fluid (mL) 785 Goal #1 Once TF starts meet at least 80% of energy/PRO needs via TF Goal #2 Wound healing Anticipated Discharge Needs: Unable to determine at this time Follow-Up By: 08/04/19 Additional Comments Follow for TF start/tolerance - Attestation Statement I have reviewed and agreed w/ Malnutrition eval & tx plan: Yes
[2019-08-03] MEDS: MORPHINE IV PRN (15:56)
[2019-08-04] MEDS: KEPPRA 500 MG in D5W 100 ML IV SCH ×3 (00:07→22:46)
[2019-08-04 05:33] LABS: Hematocrit 29.2 % (30.3-42.9); Hemoglobin 9.5 gm/dl (10.1-14.3); Mean Corpuscular HGB Conc 33 % (30-34); Mean Corpuscular Volume 80 fl (79-97); Red Blood Count 3.67 M/mm3 (3.65-5.03)
[2019-08-04 05:54] LABS: Red Cell Distribution Width 20.4 % (13.2-15.2)
[2019-08-04 06:01] LABS: Albumin 2.6 g/dL (3.9-5); Calcium 9.6 mg/dL (8.4-10.2)
[2019-08-04] MEDS: FLAGYL 500 MG/100 ML 500 MG/100 ML BAG IV SCH (06:02)
--- NOTE | 2019-08-04 06:24 | XRay Report ---
ABDOMEN 1 VIEW 5:38 AM INDICATION / CLINICAL INFORMATION: Dobbhoff placement. COMPARISON: 07/31/19 FINDINGS: TUBES / LINES: Tip of a weighted feeding tube is present in the distal stomach near the pylorus. BOWEL GAS PATTERN: No significant abnormality. FREE AIR / EXTRALUMINAL GAS: None seen. ADDITIONAL FINDINGS: No significant additional findings. IMPRESSION: 1. Feeding tube present in the distal stomach. Signer Name: Candelaria Vicente MD Signed: 08/04/2019 6:19 AM Workstation Name: [id number]
[2019-08-04 06:40] LABS: Platelet Count 149 K/mm3 (140-440)
[2019-08-04 06:41] LABS: Mean Platelet Volume 9.1 fl (6-12)
[2019-08-04] MEDS: RENVELA PO SCH ×2 (08:00→17:33)
--- NOTE | 2019-08-04 09:00 | Progress Note ---
Assessment and Plan - Patient Problems (1) Vulvar abscess Current Visit: Yes Status: Acute Plan to address problem: Slightly improved clinically continue supportive care and cleaning of site (2) Leukocytosis Current Visit: Yes Status: Acute Qualifiers: Leukocytosis type: unspecified Qualified Code(s): D72.829 - Elevated white blood cell count, unspecified Subjective - Subjective Date of service: 08/04/19 Principal diagnosis: anemia, dizziness Interval history: Patient being evaluated for a right labial abscess. Patient is awake and alert however unable to effectively communicate verbally. Appears aware of her surroundings. Examination of genitalia today without any worsening signs. Right labia having active drainage with palpation. No increase in erythema or induration. Tissue is non-necrotic and soft. Objective - Vital Signs Latest vital signs: Vital Signs Temp Pulse Pulse Resp BP BP Pulse Ox 08/04/19 04:00 99.0 F 08/04/19 03:46 96/55 08/04/19 00:10 90 18 89/51 08/04/19 00:00 100.3 F H 91 H 90 21 89/51 98 08/03/19 23:50 92 H 24 92/49 08/03/19 23:40 91 H 15 92/49 08/03/19 23:30 91 H 17 83/52 94 08/03/19 23:20 94 H 28 H 97/55 93 08/03/19 23:10 93 H 25 H 97/60 95 08/03/19 23:00 90 19 99/57 08/03/19 22:50 92 H 13 102/56 96 08/03/19 22:40 94 H 16 113/63 91 08/03/19 22:30 93 H 18 97/60 08/03/19 22:20 95 H 16 98/66 95 08/03/19 22:10 95 H 18 119/65 97 08/03/19 22:00 96 H 20 113/63 94 08/03/19 21:50 99 H 18 119/65 93 08/03/19 21:40 107 H 21 112/61 97 08/03/19 21:30 112 H 13 112/61 93 08/03/19 21:26 109 H 124/64 08/03/19 21:20 105 H 17 124/64 97 08/03/19 21:10 106 H 14 115/56 97 08/03/19 21:00 107 H 15 115/56 92 08/03/19 20:50 107 H 13 116/51 97 08/03/19 20:40 110 H 13 109/65 97 08/03/19 20:32 109 H 13 109/65 97 08/03/19 20:30 109 H 13 109/65 08/03/19 20:20 109 H 15 85/61 97 08/03/19 20:10 110 H 17 97/55 96 08/03/19 20:00 99.9 F H 110 H 108 H 14 97/55 99 08/03/19 19:50 109 H 10 L 115/60 96 08/03/19 19:40 111 H 18 113/67 97 08/03/19 19:30 109 H 16 113/67 08/03/19 19:20 109 H 13 113/61 95 08/03/19 19:10 109 H 11 L 110/64 97 08/03/19 19:00 107 H 12 110/64 95 08/03/19 18:50 109 H 12 108/64 97 08/03/19 18:40 108 H 12 113/61 96 08/03/19 18:30 108 H 10 L 113/61 95 08/03/19 18:20 106 H 17 110/58 96 08/03/19 18:10 109 H 14 126/69 94 08/03/19 18:00 103 H 14 126/69 95 08/03/19 17:50 106 H 19 115/62 95 08/03/19 17:40 108 H 16 110/60 97 08/03/19 17:30 107 H 14 110/60 95 08/03/19 17:20 106 H 18 102/67 97 08/03/19 17:10 111 H 11 L 107/57 95 08/03/19 17:00 108 H 14 107/57 100 08/03/19 16:50 107 H 13 111/54 96 08/03/19 16:40 107 H 18 109/58 97 08/03/19 16:30 108 H 14 109/58 08/03/19 16:20 111 H 13 114/67 98 08/03/19 16:10 109 H 22 115/57 96 08/03/19 16:00 99.6 F 107 H 103 H 15 115/57 93 08/03/19 15:50 108 H 17 106/56 97 08/03/19 15:40 106 H 13 115/64 96 08/03/19 15:30 102 H 20 115/64 95 08/03/19 15:20 108 H 13 99/63 95 08/03/19 15:10 107 H 20 108/67 97 08/03/19 15:00 108 H 18 108/67 96 08/03/19 14:50 106 H 13 109/60 95 08/03/19 14:40 108 H 18 111/60 96 08/03/19 14:30 110 H 12 111/60 08/03/19 14:20 111 H 18 105/62 94 08/03/19 14:10 112 H 14 95/68 96 08/03/19 14:00 106 H 18 95/68 98 08/03/19 13:50 111 H 14 99/63 98 08/03/19 13:40 109 H 17 109/67 99 08/03/19 13:30 108 H 21 109/67 95 08/03/19 13:20 109 H 22 103/69 96 08/03/19 13:10 107 H 15 116/66 97 08/03/19 13:00 106 H 12 116/66 97 08/03/19 12:50 108 H 11 L 111/55 98 08/03/19 12:40 106 H 12 110/58 97 08/03/19 12:30 105 H 19 110/58 97 08/03/19 12:20 106 H 16 111/55 99 08/03/19 12:10 107 H 19 119/65 96 08/03/19 12:00 105 H 105 H 18 119/65 99 08/03/19 11:50 105 H 18 110/61 96 08/03/19 11:40 109 H 15 103/53 98 08/03/19 11:30 107 H 17 111/64 99 Intake and Output 08/03/19 08/04/19 08/04/19 22:59 06:59 14:59 Intake Total 200 Output Total 30 Balance 170 Intake: IV 200 FLAGYL 500 MG/100 ML 500 200 mg In 100 ml @ 100 mls/hr IV Q8HR [facility] Rx#: [id number] Output: Emesis 30 Other: Total, Output Amount 30 Voiding Method Incontinent Incontinent - Labs Labs: Abnormal lab results 10/11/2008/03/19 08/03/19 Range/Units 09:03 04:15 10:23 WBC 45.4 H* 52.2 H* (4.5-11.0) K/mm3 Hgb (10.1-14.3) gm/dl Hct (30.3-42.9) % MCH 26 L (28-32) pg RDW 19.0 H (13.2-15.2) % Nucleated RBC % 1.0 H (0.0-0.9) % Potassium (3.6-5.0) mmol/L Chloride (98-107) mmol/L BUN (7-17) mg/dL Creatinine (0.7-1.2) mg/dL Glucose (65-100) mg/dL C-Reactive Protein 40.30 H (0.00-1.30) mg/dL Albumin (3.9-5) g/dL Lipase 103 H (13-60) units/L 08/04/19 08/04/19 Range/Units 04:58 04:58 WBC 51.3 H* (4.5-11.0) K/mm3 Hgb 9.5 L (10.1-14.3) gm/dl Hct 29.2 L (30.3-42.9) % MCH 26 L (28-32) pg RDW 20.4 H (13.2-15.2) % Nucleated RBC % (0.0-0.9) % Potassium 5.5 H (3.6-5.0) mmol/L Chloride 91.4 L (98-107) mmol/L BUN 74 H (7-17) mg/dL Creatinine 7.6 H D (0.7-1.2) mg/dL Glucose 137 H (65-100) mg/dL C-Reactive Protein (0.00-1.30) mg/dL Albumin 2.6 L (3.9-5) g/dL Lipase (13-60) units/L
--- NOTE | 2019-08-04 09:09 | Progress Note ---
Assessment and Plan 1. ESRD: Patient is known to our service. On maintenance hemodialysis three times a week, TTS schedule. HD today. 2. FEN: Hyperkalemia, HD today. Monitor lytes. 3. Anemia: Epogen with HD. 4. New onset seizures: On Keppra. Neurology following. 5. Severe metabolic encephalopathy: Followed by Neuro. 6. Sepsis. Vulvar abscess. Followed by ID and [employer]. 7. Acute pancreatitis: Continue supportive care. Seen by GI. 8. History of lupus: On Cellcept, Plaquenil and Prednisone. Examination: General appearance: well-developed, appears stated age, not in distress EENT: ATNC Respiratory: Clear to Ascultation Cardiology: regular, S1S2, no murmur Gastrointestinal: normoactive bowel sounds, no tenderness, not distended Integumentary: no rash Neurologic: alert, non-verbal, not following any command, resists exam Musculoskeletal: no edema Hemodialysis access: L arm AVF Subjective Date of service: 08/04/19 Principal diagnosis: anemia, dizziness Interval history: Patient was seen and examined at the bedside. Objective - Vital Signs Vital signs: Vital Signs - 12hr 08/03/19 08/03/19 08/03/19 21:10 21:20 21:26 Temperature Pulse Rate 106 H 105 H 109 H Pulse Rate [ From Monitor] Respiratory 14 17 Rate Blood Pressure 115/56 124/64 124/64 Blood Pressure [Right] O2 Sat by Pulse 97 97 Oximetry 08/03/19 08/03/19 08/03/19 21:30 21:40 21:50 Temperature Pulse Rate 112 H 107 H 99 H Pulse Rate [ From Monitor] Respiratory 13 21 18 Rate Blood Pressure 112/61 112/61 119/65 Blood Pressure [Right] O2 Sat by Pulse 93 97 93 Oximetry 08/03/19 08/03/19 08/03/19 22:00 22:10 22:20 Temperature Pulse Rate 96 H 95 H 95 H Pulse Rate [ From Monitor] Respiratory 20 18 16 Rate Blood Pressure 113/63 119/65 98/66 Blood Pressure [Right] O2 Sat by Pulse 94 97 95 Oximetry 08/03/19 08/03/19 08/03/19 22:30 22:40 22:50 Temperature Pulse Rate 93 H 94 H 92 H Pulse Rate [ From Monitor] Respiratory 18 16 13 Rate Blood Pressure 97/60 113/63 102/56 Blood Pressure [Right] O2 Sat by Pulse 91 96 Oximetry 08/03/19 08/03/19 08/03/19 23:00 23:10 23:20 Temperature Pulse Rate 90 93 H 94 H Pulse Rate [ From Monitor] Respiratory 19 25 H 28 H Rate Blood Pressure 99/57 97/60 97/55 Blood Pressure [Right] O2 Sat by Pulse 95 93 Oximetry 08/03/19 08/03/19 08/03/19 23:30 23:40 23:50 Temperature Pulse Rate 91 H 91 H 92 H Pulse Rate [ From Monitor] Respiratory 17 15 24 Rate Blood Pressure 83/52 92/49 92/49 Blood Pressure [Right] O2 Sat by Pulse 94 Oximetry 08/04/19 08/04/19 08/04/19 00:00 00:10 01:00 Temperature 100.3 F H Pulse Rate 91 H 90 88 Pulse Rate [ 90 From Monitor] Respiratory 21 18 20 Rate Blood Pressure 89/51 89/51 89/51 Blood Pressure [Right] O2 Sat by Pulse 98 Oximetry 08/04/19 08/04/19 08/04/19 02:00 03:00 03:46 Temperature Pulse Rate 88 87 Pulse Rate [ From Monitor] Respiratory 23 23 Rate Blood Pressure 89/51 89/51 Blood Pressure 96/55 [Right] O2 Sat by Pulse Oximetry 08/04/19 08/04/19 08/04/19 04:00 05:00 06:00 Temperature 99.0 F Pulse Rate 86 89 88 Pulse Rate [ From Monitor] Respiratory 13 17 14 Rate Blood Pressure 91/54 88/49 96/57 Blood Pressure [Right] O2 Sat by Pulse 96 92 Oximetry 08/04/19 08/04/19 08/04/19 07:00 08:00 09:00 Temperature Pulse Rate 88 87 89 Pulse Rate [ From Monitor] Respiratory 10 L 19 12 Rate Blood Pressure 108/60 106/59 107/67 Blood Pressure [Right] O2 Sat by Pulse 96 95 Oximetry - Lab 08/04/19 04:58 08/04/19 04:58 Most recent lab results Calcium 9.6 mg/dL (8.4-10.2) 08/04/19 04:58 Magnesium 2.00 mg/dL (1.7-2.3) 07/30/19 23:32 Medications & Allergies - Medications Allergies/Adverse Reactions: Allergies lactose Adverse Reaction (Verified 07/29/19 08:16) Unknown Home Medications: Home Medications Medication Instructions Recorded Confirmed Last Taken Type Gabapentin 300 mg PO 3XW 11/14/18 07/26/19 07/25/19 History ALBUTEROL NEB's [Proventil] 2.5 mg IH QID PRN 07/26/19 07/26/19 07/25/19 History Amitriptyline [Elavil] 25 mg PO QHS 07/26/19 07/26/19 07/25/19 History Amitriptyline [Elavil] 25 mg PO QHS 07/26/19 07/26/19 07/25/19 History Cyanocobalamin (Vitamin B-12) 1,000 mcg PO QDAY 07/26/19 07/26/19 07/25/19 History [Vitamin B-12] Folic Acid [Folvite] 1 mg PO QDAY 07/26/19 07/26/19 07/25/19 History Hydroxychloroquine [Plaquenil] 200 mg PO QDAY 07/26/19 07/26/19 07/25/19 History Ibuprofen [Motrin] 800 mg PO Q8HR PRN 07/26/19 07/26/19 07/25/19 History Labetalol HCl [Labetalol 300mg TAB] 300 mg PO Q12H 07/26/19 07/26/19 07/25/19 History Losartan [Cozaar] 50 mg PO QDAY 07/26/19 07/26/19 07/25/19 History Mirtazapine 7.5 mg PO QDAY 07/26/19 07/26/19 07/25/19 History Mycophenolate [Cellcept] 500 mg PO QDAY 07/26/19 07/26/19 07/25/19 History Pantoprazole [Protonix] 40 mg PO BID 07/26/19 07/26/19 07/25/19 History Pregabalin [Lyrica] 25 mg PO QDAY 07/26/19 07/26/19 07/25/19 History Sevelamer HCl [Renagel] 800 mg PO BIDWM 07/26/19 07/26/19 07/25/19 History hydrOXYzine HCL [Atarax] 50 mg PO QDAY 07/26/19 07/26/19 07/25/19 History predniSONE [Deltasone] 20 mg PO QDAY 07/26/19 07/26/19 07/25/19 History Active Medications: Generic Name Dose Route Start Last Admin Trade Name Freq PRN Reason Stop Dose Admin Acetaminophen 650 mg 07/26/19 11:08 08/03/19 21:27 Tylenol PO 650 mg Q6H PRN Administration Pain, Mild (1-3) Albuterol 2.5 mg 07/26/19 15:39 Proventil IH QID PRN Wheezing Lipase/Protease/Amylase 1 each 07/31/19 08:26 Pancreaze 10,500 Unit FEEDTUBE PRN PRN For Clogged Feeding Tube Cyanocobalamin 1,000 mcg 07/27/19 10:00 08/03/19 09:49 Vitamin B-12 PO Not Given QDAY JOEL Dextrose 25 ml 07/26/19 11:06 07/26/19 12:32 D50w (25gm) Syringe IV 25 ml PRN PRN Administration Hypoglycemia Epoetin Mitch 10,000 unit 07/26/19 10:10 07/30/19 19:19 Procrit IV 10,000 unit FAN PRN Administration hemodialysis Folic Acid 1 mg 07/27/19 10:00 08/03/19 09:49 Folvite PO Not Given QDAY [facility] Hydralazine HCl 10 mg 07/30/19 20:16 07/31/19 00:05 Apresoline IV 10 mg Q4HR PRN Administration Blood Pressure Hydroxychloroquine Sulfate 200 mg 07/27/19 10:00 08/03/19 09:49 Plaquenil PO Not Given QDAY [facility] Hydroxyzine HCl 50 mg 07/27/19 10:00 08/03/19 09:48 Atarax PO Not Given QDAY [facility] Cefepime HCl 1 gm in 100 mls @ 200 mls/hr 07/27/19 10:00 08/03/19 10:33 Maxipime/Ns 1 Gm/100 Ml IV 200 mls/hr Q24HR JOEL Administration Protocol Levetiracetam 500 mg/ Dextrose 105 mls @ 400 mls/hr 07/30/19 12:00 08/04/19 00:07 IV 400 mls/hr BID JOEL Administration Sodium Chloride 100 mls @ 999 mls/hr 08/02/19 08:56 Nacl 0.9% IV FAN PRN Hypotension Vancomycin HCl 1 gm in 250 mls @ 166.667 mls/hr 08/04/19 20:00 Vancomycin/Ns 1 Gm/250 Ml IV TuThSa JOEL Metronidazole 500 mg in 100 mls @ 100 mls/hr 08/03/19 14:00 08/04/19 06:02 Flagyl 500 Mg/100 Ml IV 100 mls/hr Q8HR JOEL Administration Protocol Labetalol HCl 300 mg 07/26/19 16:00 08/03/19 21:26 Normodyne PO 300 mg BID [facility] Administration Losartan Potassium 50 mg 07/27/19 10:00 08/03/19 10:35 Cozaar PO Not Given QDAY [facility] Morphine Sulfate 1 mg 07/29/19 15:49 08/03/19 15:56 Morphine IV 1 mg Q8H PRN Administration Pain, Moderate (4-6) Mycophenolate Mofetil 500 mg 07/27/19 10:00 08/03/19 09:48 Cellcept PO Not Given QDAY [facility] Ondansetron HCl 4 mg 07/29/19 23:31 08/03/19 14:40 Zofran IV 4 mg Q6H PRN Administration Nausea And Vomiting Oxycodone/Acetaminophen 1 tab 07/29/19 15:49 Percocet 5/325 PO Q8H PRN Pain, Moderate (4-6) Pantoprazole Sodium 40 mg 08/02/19 14:00 08/03/19 21:27 Protonix IV 40 mg BID [facility] Administration Prednisone 20 mg 07/27/19 10:00 08/03/19 09:48 Deltasone PO Not Given QDAY [facility] Sevelamer Carbonate 800 mg 07/26/19 16:30 08/03/19 18:08 Renvela PO Not Given 0730,1630 [facility] Simple Syrup 15 ml 07/31/19 08:26 Simple Syrup FEEDTUBE PRN PRN Hypoglycemia Simple Syrup 30 ml 07/31/19 08:26 Simple Syrup FEEDTUBE PRN PRN Hypoglycemia Sodium Bicarbonate 325 mg 07/31/19 08:26 Sodium Bicarbonate FEEDTUBE PRN PRN For Clogged Feeding Tube
[2019-08-04] MEDS: CELLCEPT PO SCH ×2 (10:57→11:01)
[2019-08-04] MEDS: VITAMIN B-12 PO SCH ×2 (10:57→11:02)
[2019-08-04] MEDS: COZAAR PO SCH ×2 (10:57→11:01)
[2019-08-04] MEDS: FOLVITE PO SCH (10:58)
[2019-08-04] MEDS: ATARAX PO SCH ×2 (10:58→11:01)
[2019-08-04] MEDS: PREVACID SOLUTAB FEEDTUBE SCH ×2 (10:58→22:47)
[2019-08-04] MEDS: DELTASONE PO SCH ×2 (10:59→11:00)
[2019-08-04] MEDS: PLAQUENIL PO SCH (10:59)
[2019-08-04] MEDS: NORMODYNE PO SCH ×3 (10:59→22:47)
[2019-08-04] MEDS ORDERED: MERREM 1,000 MG in NACL 0.9% 100 ML IV SCH (11:00)
--- NOTE | 2019-08-04 11:03 | Progress Note ---
Assessment and Plan Cultures: Wound culture - E coli, whittaker sensitive Blood culture 07/26/2019 no growth today CSF 08/02/2019 no organisms, no leukocytes Right labia drainage 08/02/2019 +E coli pansens A/P: 49 yo F PMHx ESRD on HD, lupus, previous MRSA infection now with wound infection, abdominal pain and seizures 1. Acute sepsis - leukocytosis with leukomoid reaction 31-->45-->52K. Possible source necrotizing pancreatitis +/- right labia abscess +/- less likely sinusitis 2. Presumedly Complicated Pancreatitis: ? CT with generalized edema is noted throughout the pancreas with surrounding moderate inflammation. No distinct pancreatic lesion is identified. Lipase 241. Repeat contrasted CT with severely abnormal pancreas with multiple focal areas of nonperfusion in the distal pa ncreas. Necrotizing pancreatitis could be considered. There is moderate to large fluid throughout the base of the mesentery and left abdomen which is grossly unchanged. 3. Right labia abscess v/s necrotizing fascitis: Staph vs polymicrobial. Right labia drainage 08/02/2019 +GNRs. [employer] on board. Procalcitonin 22 (high/unclear significance is the setting of ESRD). Repeat Contrasted CT did not include perineum 4. Wound infection right buttocks 5. Lupus - on plaquenil, cellcept and prednisone ? flare 6. New onset Seizures - ?? unclear etiology 7. AMS? received ativan for agitation overnight ? due to sepsis ?lupus. CT head with left maxillary sinusitis. Since patient is immunocompromised will close monitor for OI. S/p LP CSF with no evidence of meningitis. WBC=0, CSF glucose and protein pending. 8. Severe anemia ? plaquenil ? GI bleed 9. Immunocompromised host 10. ESRD on HD - renally dose antibiotics Recs: - consider surgical consult for necrotizing pancreatitis - GI med on board - start meropenem IV renally adjusted for necrotizing pancreatitis - stop cefepime and metronidazole - continue vancomycin IV renally adjusted for now if not growth of GPC will stop - monitor mentation - monitor leukocytosis Discussed with Dr Andrea Will follow. Marly Laura MD Infectious Diseases [employer] [facility] M [phone] O [phone] Subjective Date of service: 08/04/19 Principal diagnosis: anemia, dizziness Interval history: Patient is more alert, follow commands talking Objective - Exam Narrative Exam: General appearance: alert in NAD Eyes: anicteric sclerae, clear conjunctivae HENT: Atraumatic; oropharynx clear dry mucosa +NGT Lungs: CTA CV: RRR Abdomen: Soft, tenderness diffusely Extremities: no edema, no cyanosis Skin: No rash. +multiple scattered old scars and +right hip superficial wound Gen: +right labia swelling with small opening draining purulence Psych: somnolent Neuro: somnolent - Constitutional Vitals: Vital Signs Temp Pulse Resp BP Pulse Ox 99.0 F 89 12 107/67 97 08/04/19 04:00 08/04/19 09:00 08/04/19 09:00 08/04/19 09:00 08/04/19 10:22 Temperature -Last 24 Hours Temperature 99.0 F Temperature 100.3 F Temperature 99.9 F Temperature 99.6 F - Labs CBC & Chem 7: 08/04/19 04:58 08/04/19 04:58 Labs: Abnormal lab results 08/02/19 08/03/19 08/03/19 Range/Units 09:03 04:15 10:23 WBC 45.4 H* 52.2 H* (4.5-11.0) K/mm3 Hgb (10.1-14.3) gm/dl Hct (30.3-42.9) % MCH 26 L (28-32) pg RDW 19.0 H (13.2-15.2) % Nucleated RBC % 1.0 H (0.0-0.9) % Potassium (3.6-5.0) mmol/L Chloride (98-107) mmol/L BUN (7-17) mg/dL Creatinine (0.7-1.2) mg/dL Glucose (65-100) mg/dL C-Reactive Protein 40.30 H (0.00-1.30) mg/dL Albumin (3.9-5) g/dL Lipase 103 H (13-60) units/L 08/04/19 08/04/19 Range/Units 04:58 04:58 WBC 51.3 H* (4.5-11.0) K/mm3 Hgb 9.5 L (10.1-14.3) gm/dl Hct 29.2 L (30.3-42.9) % MCH 26 L (28-32) pg RDW 20.4 H (13.2-15.2) % Nucleated RBC % (0.0-0.9) % Potassium 5.5 H (3.6-5.0) mmol/L Chloride 91.4 L (98-107) mmol/L BUN 74 H (7-17) mg/dL Creatinine 7.6 H D (0.7-1.2) mg/dL Glucose 137 H (65-100) mg/dL C-Reactive Protein (0.00-1.30) mg/dL Albumin 2.6 L (3.9-5) g/dL Lipase (13-60) units/L
--- NOTE | 2019-08-04 12:10 | Gastroenterology Progress Note ---
Assessment and Plan # Acute pancreatitis - etiology unclear. possible medication induced. US negative for gallstones. - clinically improving with abdominal exam better and less pain - repeat CT with signs of possible necrotizing pancreatitis. fluid in the mesentery but stable from previous. - difficult to assess for pain given patient nonverbal but tenderness on exam. Wbc still elevated complicated by other causes for infection. E. coli positive from wound and labia. - continue with supportive care. - consider surgery consult. - will follow. Subjective Date of service: 08/04/19 Principal diagnosis: anemia, dizziness Interval history: No acute events o/n. Patient nonverbal but follows commands. Objective - Constitutional Vitals: Temp Pulse Resp BP Pulse Ox 97.4 F L 82 23 104/70 95 08/04/19 11:00 08/04/19 11:45 08/04/19 11:00 08/04/19 11:45 08/04/19 11:00 General appearance: no acute distress - EENT ENT: hearing intact - Respiratory Respiratory effort: normal - Cardiovascular Rhythm: regular Heart Sounds: Present: S1 & S2 - Gastrointestinal General gastrointestinal: Present: soft, tender, non-distended - Integumentary Integumentary: Present: warm - Labs CBC & Chem 7: 08/04/19 04:58 08/04/19 04:58 Labs: Laboratory Results - last 24 hr 07/30/19 07/30/19 08/02/19 11:40 11:49 09:03 WBC RBC Hgb Hct MCV MCH MCHC RDW Plt Count 180 Sodium Potassium Chloride Carbon Dioxide Anion Gap BUN Creatinine Estimated GFR BUN/Creatinine Ratio Glucose Calcium Total Bilirubin AST ALT Alkaline Phosphatase Total Protein Albumin Albumin/Globulin Ratio Complement C3 95 Complement C4 29 08/03/19 08/04/19 08/04/19 04:15 04:58 04:58 WBC 52.2 H* 51.3 H* RBC 4.02 3.67 Hgb 10.5 D 9.5 L Hct 31.7 D 29.2 L MCV 79 80 MCH 26 L 26 L MCHC 33 33 RDW 19.0 H 20.4 H Plt Count 185 149 Sodium 142 Potassium 5.5 H Chloride 91.4 L Carbon Dioxide 26 Anion Gap 30 BUN 74 H Creatinine 7.6 H D Estimated GFR 8 BUN/Creatinine Ratio 10 Glucose 137 H Calcium 9.6 Total Bilirubin 0.80 AST 21 ALT 11 Alkaline Phosphatase 127 Total Protein 7.0 Albumin 2.6 L Albumin/Globulin Ratio 0.6 Complement C3 Complement C4
[2019-08-04] MEDS: PROCRIT IV PRN (14:15)
--- NOTE | 2019-08-04 15:04 | Fluoroscopy Report ---
LUMBAR PUNCTURE INDICATION : Evaluate for meningitis, seizures, altered mental status PROCEDURE: The risks (including but not limited to bleeding, infection, and spinal headache) and margoth efits were explained to the patient's family and informed consent was obtained. The patient was deeme d incompetent. A time out procedure was performed. The procedure site was prepped and draped in the usual sterile fashion and lidocaine was used for local anesthesia. Under fluoroscopic guidance, a 22-gauge spinal needle was advanced into the L4-5 interlaminar space. The opening pressure was 310 mm H2O which was calculated by adding the length of the needle (9 cm) to the height of the CSF column. The closing pressure measured 21 mm of water. 4 separate collection tu bes were used to obtain 2 cc of CSF each. Samples were sent to the lab per the ordering physician spe cifications for further evaluation. The patient tolerated the procedure well with no complications. IMPRESSION: Successful lumbar puncture as outlined above. Opening pressure was 310 mm H20. Fluoroscopic time: 0.5 Number of fluoroscopic images: 1 Signer Name: Lucas Araujo Jr, MD Signed: 08/02/2019 11:15 AM Workstation Name: [id number]
[2019-08-04] MEDS: PERCOCET 5/325 PO PRN ×2 (17:32→23:32)
--- NOTE | 2019-08-04 17:37 | Progress Note ---
Assessment and Plan Assessment and plan: 29-year-old -[place] female patient with significant past medical history of end-stage renal disease on hemodialysis lupus chronic pain syndrome history of MRSA infection in the past was admitted through emergency room with bilateral lower extremity cramping burning sensation hyperkalemia fluid overload fevers, treated empirically with antibiotics received hemodialysis per schedule, Wound cultures positive for Escherichia coli on appropriate antibiotics Patient developed new onset seizures on 07/30/2019, received Keppra and Ativan Evaluated by neurology, CT head negative, patient remained Lethargic noncommunicative since first episode of seizure ,MRI done today was negative for acute abnormalities, consulted second neurologist For second opinion And also has Persistent leukocytosis, ID evaluated, ordered C. difficile. Lumbar puncture done * Transfuse 2 unit of PRBC with dialysis * CT abdomen and pelvis reviewed, concerning for severe pancreatitis, nectrotizing tissue could not be excluded * Surgery consulted to evaluate narcotizing pancreatitis * Undergoing HD today --New onset seizures : On Keppra, Seizure precautions, Follow EEG, CT head negative for acute abnormality MRI brain no acute abnormalities . Neurology following -No evidence of Meningitis on LP lab review --Severe Metabolic encephalopathy; multifactorial Sepsis, seizures, acute pancreatitis , ESRD. Bun much improved following dialysis --Persistent leukocytosis; altered level of consciousness Escherichia coli sepsis Continue cefepime ?Reactive vs from acute pancreatitis C. difficile, --Acute pancreatitis on CT/elevated lipase Continue supportive care, GI consulted SURGERY CONSULTED --Episode of Coffee-ground emesis; closely monitor H&H GI consult. Give additional 2 units PRBC for a total of 4 units --History of lupus; resume home medications Possible flareup, monitor --Sepsis; Escherichia coli wound infection IV antibiotics, supportive care --Hypotension; If no improvement, consider vasopressors and transferred to ICU --Hyperkalemia; resolved secondary to end-stage renal disease --End-stage renal disease; on hemodialysis HD per schedule, nephrology --Moderate malnutrition/hypoalbuminemia; Dobbhoff placement Tube feeding per protocol --DVT prophylaxis; Lovenox renal dose Plan of care reviewed with the patient's nurse D/W Family members patient's sister/next of kin Mariya Painting at [phone] UPDATED Disposition; patient is critically ill, follow multiple renewable energy consultant's Evaluations and recommendations The high probability of a clinically significant, sudden or life threatening deterioration of the [NEURO, RENAL, GI] system(s) required my full and direct attention, intervention and personal management. The aggregate critical care time was [35] minutes. This time is in addition to time spent performing reported procedures but includes the following: [X] Data Review and interpretation [X] Patient assessment and monitoring of vital signs [X] Documentation [X] Medication orders and management History Interval history: Patient seen and examined, more awake today and following commands, still l ethargic Hospitalist Physical - Physical exam Narrative exam: General appearance: Present: mild distress, well-nourished, obese, following SOME commands, still lethergic - EENT Eyes: Present: PERRL, EOM intact - Neck Neck: Present: supple, normal ROM - Respiratory Respiratory effort: normal Respiratory: bilateral: diminished, rales, negative: rhonchi, wheezing - Cardiovascular Rhythm: regular Heart Sounds: Present: S1 & S2 - Extremities Extremities: no ischemia, No edema - Abdominal General gastrointestinal: soft, NON TENDER , non-distended, normal bowel sounds - Integumentary Integumentary: Present:excouration in the forhead, perianal dressing noted warm - Psychiatric Psychiatric: other FLAT AFFECT - Neurologic Neurologic: FOLLOWING SOME COMMANDS - Constitutional Vitals: Temp Pulse Resp BP Pulse Ox 97.4 F L 86 16 113/83 98 08/04/19 11:00 08/04/19 14:30 08/04/19 14:30 08/04/19 14:30 08/04/19 12:00 General appearance: Present: mild distress, well-nourished, obese, other (uncommunicative, lethargic, responds only to deep stimuli) Results - Labs CBC & Chem 7: 08/04/19 04:58 08/04/19 04:58 Labs: Laboratory Last Values WBC 51.3 K/mm3 (4.5-11.0) H* 08/04/19 04:58 RBC 3.67 M/mm3 (3.65-5.03) 08/04/19 04:58 Hgb 9.5 gm/dl (10.1-14.3) L 08/04/19 04:58 Hct 29.2 % (30.3-42.9) L 08/04/19 04:58 MCV 80 fl (79-97) 08/04/19 04:58 MCH 26 pg (28-32) L 08/04/19 04:58 MCHC 33 % (30-34) 08/04/19 04:58 RDW 20.4 % (13.2-15.2) H 08/04/19 04:58 Plt Count 149 K/mm3 (140-440) 08/04/19 04:58 Lymph # Product Engineer 08/02/19 09:03 Add Manual Diff Complete 08/02/19 09:03 Total Counted 100 08/02/19 09:03 Seg Neuts % (Manual) 86.0 % (40.0-70.0) H 08/02/19 09:03 Band Neutrophils % 8.0 % 08/02/19 09:03 Lymphocytes % (Manual) 3.0 % (13.4-35.0) L 08/02/19 09:03 Reactive Lymphs % (Man) 0 % 08/02/19 09:03 Monocytes % (Manual) 0 % (0.0-7.3) 08/02/19 09:03 Eosinophils % (Manual) 0 % (0.0-4.3) 08/02/19 09:03 Basophils % (Manual) 0 % (0.0-1.8) 08/02/19 09:03 Metamyelocytes % 2.0 % 08/02/19 09:03 Myelocytes % 1.0 % 08/02/19 09:03 Promyelocytes % 0 % 08/02/19 09:03 Blast Cells % 0 % 08/02/19 09:03 Nucleated RBC % 1.0 % (0.0-0.9) H 08/02/19 09:03 Seg Neutrophils # Man 39.0 K/mm3 (1.8-7.7) H 08/02/19 09:03 Band Neutrophils # 3.6 K/mm3 08/02/19 09:03 Lymphocytes # (Manual) 1.4 K/mm3 (1.2-5.4) 08/02/19 09:03 Abs React Lymphs (Man) 0.0 K/mm3 08/02/19 09:03 Monocytes # (Manual) 0.0 K/mm3 (0.0-0.8) 08/02/19 09:03 Eosinophils # (Manual) 0.0 K/mm3 (0.0-0.4) 08/02/19 09:03 Basophils # (Manual) 0.0 K/mm3 (0.0-0.1) 08/02/19 09:03 Metamyelocytes # 0.9 K/mm3 08/02/19 09:03 Myelocytes # 0.5 K/mm3 08/02/19 09:03 Promyelocytes # 0.0 K/mm3 08/02/19 09:03 Blast Cells # 0.0 K/mm3 08/02/19 09:03 Pathologist Review 08/02/19 09:03 WBC Morphology Not Reportable 08/02/19 09:03 Hypersegmented Neuts Not Reportable 08/02/19 09:03 Hyposegmented Neuts Not Reportable 08/02/19 09:03 Hypogranular Neuts Not Reportable 08/02/19 09:03 Smudge Cells Not Reportable 08/02/19 09:03 Toxic Granulation 3+ 08/02/19 09:03 Toxic Vacuolation Not Reportable 08/02/19 09:03 Dohle Bodies 1+ 08/02/19 09:03 Pelger-Huet Anomaly Not Reportable 08/02/19 09:03 Rose Rods Not Reportable 08/02/19 09:03 Platelet Estimate Consistent w auto 08/02/19 09:03 Clumped Platelets Not Reportable 08/02/19 09:03 Plt Clumps, EDTA Not Reportable 08/02/19 09:03 Large Platelets Not Reportable 08/02/19 09:03 Giant Platelets Not Reportable 08/02/19 09:03 Platelet Satelliting Not Reportable 08/02/19 09:03 Plt Morphology Comment Not Reportable 08/02/19 09:03 RBC Morphology Not Reportable 08/02/19 09:03 Dimorphic RBCs Not Reportable 08/02/19 09:03 Polychromasia Not Reportable 08/02/19 09:03 Hypochromasia 2+ 08/02/19 09:03 Poikilocytosis Not Reportable 08/02/19 09:03 Anisocytosis 1+ 08/02/19 09:03 Microcytosis Not Reportable 08/02/19 09:03 Macrocytosis Not Reportable 08/02/19 09:03 Spherocytes Not Reportable 08/02/19 09:03 Pappenheimer Bodies Not Reportable 08/02/19 09:03 Sickle Cells Not Reportable 08/02/19 09:03 Target Cells 1+ 08/02/19 09:03 Tear Drop Cells Not Reportable 08/02/19 09:03 Ovalocytes Not Reportable 08/02/19 09:03 Helmet Cells Not Reportable 08/02/19 09:03 Benavidez-[place]entree Bodies Not Reportable 08/02/19 09:03 [place] Rings Not Reportable 08/02/19 09:03 Bk Cells Not Reportable 08/02/19 09:03 Bite Cells Not Reportable 08/02/19 09:03 Crenated Cell Not Reportable 08/02/19 09:03 Elliptocytes Not Reportable 08/02/19 09:03 Acanthocytes (Spur) Not Reportable 08/02/19 09:03 Rouleaux Not Reportable 08/02/19 09:03 Hemoglobin C Crystals Not Reportable 08/02/19 09:03 Schistocytes Not Reportable 08/02/19 09:03 Malaria parasites Not Reportable 08/02/19 09:03 ESR 78 mm/Hr (0-20) 07/26/19 05:25 Dinesh Bodies Not Reportable 08/02/19 09:03 Hem Pathologist Commnt Sent to pathology 08/02/19 09:03 PT 16.7 Sec. (12.2-14.9) H 07/26/19 06:31 INR 1.39 (0.87-1.13) H 07/26/19 06:31 APTT 41.1 Sec. (24.2-36.6) H 07/26/19 06:31 Sodium 142 mmol/L (137-145) 08/04/19 04:58 Potassium 5.5 mmol/L (3.6-5.0) H 08/04/19 04:58 Chloride 91.4 mmol/L (98-107) L 08/04/19 04:58 Carbon Dioxide 26 mmol/L (22-30) 08/04/19 04:58 Anion Gap 30 mmol/L 08/04/19 04:58 BUN 74 mg/dL (7-17) H 08/04/19 04:58 Creatinine 7.6 mg/dL (0.7-1.2) H D 08/04/19 04:58 Estimated GFR 8 ml/min 08/04/19 04:58 BUN/Creatinine Ratio 10 % 08/04/19 04:58 Glucose 137 mg/dL (65-100) H 08/04/19 04:58 POC Glucose 99 (70-105) 07/30/19 11:06 Lactic Acid 1.40 mmol/L (0.7-2.0) 08/02/19 15:24 Calcium 9.6 mg/dL (8.4-10.2) 08/04/19 04:58 Magnesium 2.00 mg/dL (1.7-2.3) 07/30/19 23:32 Iron 58 ug/dL (37-170) 08/03/19 04:15 TIBC 150 mcg/dL (250-450) L 08/03/19 04:15 Ferritin 5729.0 ng/mL (13.0-400.0) H 08/03/19 04:15 Total Bilirubin 0.80 mg/dL (0.1-1.2) 08/04/19 04:58 Direct Bilirubin < 0.2 mg/dL (0-0.2) 07/26/19 06:31 Indirect Bilirubin 0.1 mg/dL 07/26/19 06:31 AST 21 units/L (5-40) 08/04/19 04:58 ALT 11 units/L (7-56) 08/04/19 04:58 Alkaline Phosphatase 127 units/L (35-129) 08/04/19 04:58 Total Creatine Kinase 43 units/L (30-135) 07/26/19 05:25 Troponin T 0.072 ng/mL (0.00-0.029) H 07/26/19 06:31 C-Reactive Protein 40.30 mg/dL (0.00-1.30) H 08/03/19 10:23 NT-Pro-B Natriuret Pep 93970 pg/mL (0-450) H 07/26/19 06:31 Total Protein 7.0 g/dL (6.3-8.2) 08/04/19 04:58 Albumin 2.6 g/dL (3.9-5) L 08/04/19 04:58 Albumin/Globulin Ratio 0.6 % 08/04/19 04:58 Triglycerides 261 mg/dL (2-149) H 08/03/19 04:15 Cholesterol 91 mg/dL (50-199) 07/26/19 06:31 LDL Cholesterol Direct 30 mg/dL (50-130) L 07/26/19 06:31 HDL Cholesterol 25 mg/dL (40-59) L 07/26/19 06:31 Cholesterol/HDL Ratio 3.64 % 07/26/19 06:31 Amylase 834 units/L (27-131) H 08/01/19 04:00 Lipase 103 units/L (13-60) H 08/03/19 10:23 Procalcitonin 22.18 ng/mL (<0.15) 08/02/19 16:38 HCG, Qual Negative (Negative) 07/30/19 02:40 HCG, Quant < 2 mIU/mL (0-4) 07/26/19 05:25 CSF Appearance Clear 08/01/19 10:40 CSF Color Colorless 08/01/19 10:40 CSF WBC 0 /mm3 (1-10) 08/01/19 10:40 CSF RBC 0 /mm3 (0-0) 08/01/19 10:40 CSF Seg Neutrophils 0 % (0-6) 08/01/19 10:40 CSF Lymphocytes % 0 % (40-80) 08/01/19 10:40 CSF Reactive Lymphs 0 % 08/01/19 10:40 CSF Monocytes % 0 % (15-45) 08/01/19 10:40 CSF Eosinophils % 0 % 08/01/19 10:40 CSF Basophils 0 % 08/01/19 10:40 CSF Pathologist Review C 08/01/19 10:40 Random Vancomycin 29.0 ug/mL (0-40.0) 08/03/19 04:15 Complement C3 95 mg/dL (83-193) 07/30/19 11:49 Complement C4 29 mg/dL (15-57) 07/30/19 11:40 RPR Nonreactive (Nonreactive) 07/26/19 05:25 Hepatitis A IgM Ab Non-reactive (NonReactive) 07/26/19 10:53 Hep Bs Antigen Non-reactive (Negative) 07/26/19 10:53 Hep B Core IgM Ab Non-reactive (NonReactive) 07/26/19 10:53 Hepatitis C Antibody Non-reactive (NonReactive) 07/26/19 10:53 Blood Type A POSITIVE 08/02/19 12:50 Antibody Screen Negative 08/02/19 12:50 Crossmatch See Detail 08/02/19 12:50 Active Medications - Current Medications Current Medications: Generic Name Dose Route Start Last Admin Trade Name Freq PRN Reason Stop Dose Admin Acetaminophen 650 mg 07/26/19 11:08 08/03/19 21:27 Tylenol PO 650 mg Q6H PRN Administration Pain, Mild (1-3) Albuterol 2.5 mg 07/26/19 15:39 Proventil IH QID PRN Wheezing Lipase/Protease/Amylase 1 each 07/31/19 08:26 Pancreaze 10,500 Unit FEEDTUBE PRN PRN For Clogged Feeding Tube Cyanocobalamin 1,000 mcg 07/27/19 10:00 08/04/19 11:02 Vitamin B-12 PO 1,000 mcg QDAY JOEL Administration Dextrose 25 ml 07/26/19 11:06 07/26/19 12:32 D50w (25gm) Syringe IV 25 ml PRN PRN Administration Hypoglycemia Epoetin Mitch 10,000 unit 07/26/19 10:10 08/04/19 14:15 Procrit IV 10,000 unit FAN PRN Administration hemodialysis Folic Acid 1 mg 07/27/19 10:00 08/04/19 10:58 Folvite PO 1 mg QDAY JOEL Administration Hydralazine HCl 10 mg 07/30/19 20:16 07/31/19 00:05 Apresoline IV 10 mg Q4HR PRN Administration Blood Pressure Hydroxychloroquine Sulfate 200 mg 07/27/19 10:00 08/04/19 10:59 Plaquenil PO 200 mg QDAY JOEL Administration Hydroxyzine HCl 50 mg 07/27/19 10:00 08/04/19 11:01 Atarax PO 50 mg QDAY JOEL Administration Levetiracetam 500 mg/ Dextrose 105 mls @ 400 mls/hr 07/30/19 12:00 08/04/19 10:56 IV 400 mls/hr BID JOEL Administration Sodium Chloride 100 mls @ 999 mls/hr 08/02/19 08:56 Nacl 0.9% IV FAN PRN Hypotension Vancomycin HCl 1 gm in 250 mls @ 166.667 mls/hr 08/04/19 20:00 Vancomycin/Ns 1 Gm/250 Ml IV TuThSa JOEL Meropenem 1,000 mg/ Sodium 100 mls @ 100 mls/hr 08/04/19 11:00 08/04/19 15:58 Chloride IV 100 mls/hr Q24HR JOEL Administration Protocol Labetalol HCl 300 mg 07/26/19 16:00 08/04/19 11:00 Normodyne PO 300 mg BID JOEL Administration Lansoprazole 30 mg 08/04/19 10:00 08/04/19 10:58 Prevacid Solutab FEEDTUBE 30 mg BID JOEL Administration Losartan Potassium 50 mg 07/27/19 10:00 08/04/19 11:01 Cozaar PO 50 mg QDAY JOEL Administration Morphine Sulfate 1 mg 07/29/19 15:49 08/03/19 15:56 Morphine IV 1 mg Q8H PRN Administration Pain, Moderate (4-6) Mycophenolate Mofetil 500 mg 07/27/19 10:00 08/04/19 11:01 Cellcept PO 500 mg QDAY JOEL Administration Ondansetron HCl 4 mg 07/29/19 23:31 08/03/19 14:40 Zofran IV 4 mg Q6H PRN Administration Nausea And Vomiting Oxycodone/Acetaminophen 1 tab 07/29/19 15:49 Percocet 5/325 PO Q8H PRN Pain, Moderate (4-6) Prednisone 20 mg 07/27/19 10:00 08/04/19 11:00 Deltasone PO 20 mg QDAY JOEL Administration Sevelamer Carbonate 800 mg 07/26/19 16:30 08/04/19 08:00 Renvela PO Not Given 0730,1630 JOEL Simple Syrup 15 ml 07/31/19 08:26 Simple Syrup FEEDTUBE PRN PRN Hypoglycemia Simple Syrup 30 ml 07/31/19 08:26 Simple Syrup FEEDTUBE PRN PRN Hypoglycemia Sodium Bicarbonate 325 mg 07/31/19 08:26 Sodium Bicarbonate FEEDTUBE PRN PRN For Clogged Feeding Tube Nutrition/Malnutrition Assess - Dietary Evaluation Nutrition/Malnutrition Findings: Nutrition Notes Start: 07/26/19 14:40 Freq: Status: Active Protocol: Document 08/04/19 10:54 PS (Rec: 08/04/19 11:50 PS [id number]) Co-Sign 08/04/19 10:54 LP Nutrition Notes Initial or Follow up Reassessment Current Diagnosis CKD (stage V CKD),Hypertension Other Pertinent Diagnosis on HD, MRSA, lupus, anemia, wounds Current Diet Tube Feeding Nepro at 45 ml/hr Labs/Tests K 5.5 BUN 74 Creat. 7.6 Glu 137 Albumin 2.6 Pertinent Medications Reviewed Height 5 ft 3 in Weight 64 kg [place] Body Weight (kg) 52.27 BMI 25.0 Weight change and time frame Wt. change noted. Subjective/Other Information Follow up for TF start/ tolerance. Pt. had dobhoff tube placed, but poor tolerance with it, she experienced aspiration. GI has not given the clear for TF start. Burn Absent Trauma Absent Minimum of two criteria Yes Energy Intake (severe) < or equal to 50% Estimated Energy Requirement > or equal to 5 days Muscle Mass Mild Depletion (non-severe) Fluid Accumulation Mild (non-severe) #3 Nutrition Diagnosis Malnutrition Diagnosis Progress(for reassessment Continues documentation) #2 Nutrition Diagnosis Increased nutrient needs ( specify in comment below) Diagnosis Progress(for reassessment Continues documentation) #1 Nutrition Diagnosis Inadequate oral intake As Evidenced by Signs and Symptoms Pt not eating and has dobhoff placed Diagnosis Progress(for reassessment Continues documentation) Is patient on ventilator? No Is Patient Ambulatory and/or Out of Bed Yes REE-([facility]-ambulatory/OOB) [ [id number] [id number]] Calculation Used for Recommendations [facility] Additional Notes PRO: 77 g- 96 g/day (1.2-1.5g/ kg/day AdBW 65kg) Fluid: 1-1.5L/day Nutrition Intervention Change Diet Order: Start TF as tolerated Nutrition Support: Nepro at 45ml/hr Flush with 120ml q4h Kcal 1,944 Protein (gm) 87 Fluid (mL) 785 Goal #1 Once TF starts meet at least 80% of energy/PRO needs via TF Goal #2 Wound healing Anticipated Discharge Needs: Unable to determine at this time Follow-Up By: 08/05/19 Additional Comments Follow for TF start/tolerance
[2019-08-04] MEDS ORDERED: VANCOMYCIN/NS 1 GM/250 ML 1 GM/250 ML BAG IV SCH (20:00)
[2019-08-04 20:22] LABS: Glucose,CSF 57 mg/dL
[2019-08-05 04:59] LABS: Hematocrit 30.5 % (30.3-42.9); Hemoglobin 9.8 gm/dl (10.1-14.3); Mean Corpuscular HGB Conc 32 % (30-34); Mean Corpuscular Volume 83 fl (79-97); Red Blood Count 3.67 M/mm3 (3.65-5.03); Red Cell Distribution Width 18.7 % (13.2-15.2)
[2019-08-05 05:13] LABS: Calcium 9.4 mg/dL (8.4-10.2)
[2019-08-05 05:49] LABS: Platelet Count 160 K/mm3 (140-440)
--- NOTE | 2019-08-05 09:57 | XRay Report ---
ABDOMEN 1 VIEW(S) INDICATION / CLINICAL INFORMATION: dobhoff placement confirmation. COMPARISON: 08/04/2019 FINDINGS: TUBES / LINES: The Dobbhoff tube terminates in the descending duodenum. BOWEL GAS PATTERN: No significant abnormality. FREE AIR / EXTRALUMINAL GAS: None seen. ADDITIONAL FINDINGS: No significant additional findings. IMPRESSION: No significant abnormality. Dobbhoff tube as described. Signer Name: Lucas Araujo Jr, MD Signed: 08/05/2019 9:52 AM Workstation Name: [id number]
--- NOTE | 2019-08-05 10:09 | Gastroenterology Progress Note ---
Assessment and Plan # Acute pancreatitis - etiology unclear. possible medication induced. US negative for gallstones. - clinically improving with abdominal exam better and less pain. WBC slowly trending down. - repeat CT with signs of possible necrotizing pancreatitis. fluid in the mesentery but stable from previous. - difficult to assess for pain given patient nonverbal but tenderness on exam. Wbc still elevated complicated by other causes for infection. E. coli positive from wound and labia. - start tube feeds with Dobhoff tube, which is confirmed to be in the duodenum. - continue with supportive care. - consider surgery consult. - will follow. Subjective Date of service: 08/05/19 Principal diagnosis: anemia, dizziness Interval history: Patient more alert but agitated. Pulled Dobhoff out and replaced this morning. Objective - Constitutional Vitals: Temp Pulse Resp BP Pulse Ox 98.0 F 79 14 113/69 96 08/05/19 04:00 08/05/19 08:00 08/05/19 08:00 08/05/19 08:00 08/05/19 06:00 General appearance: no acute distress - EENT ENT: hearing intact - Respiratory Respiratory effort: normal - Cardiovascular Rhythm: regular Heart Sounds: Present: S1 & S2 - Gastrointestinal General gastrointestinal: Present: soft, tender, non-distended - Integumentary Integumentary: Present: warm - Labs CBC & Chem 7: 08/05/19 04:09 08/05/19 04:09 Labs: Laboratory Results - last 24 hr 08/01/19 08/01/19 08/02/19 10:40 10:40 09:03 WBC RBC Hgb Hct MCV MCH MCHC RDW Plt Count WBC Morphology Not Reportable Sodium Potassium Chloride Carbon Dioxide Anion Gap BUN Creatinine Estimated GFR BUN/Creatinine Ratio Glucose Calcium CSF Glucose 57 CSF Total Protein 84 CSF VDRL Nonreactive 08/05/19 08/05/19 04:09 04:09 WBC 47.0 H* RBC 3.67 Hgb 9.8 L Hct 30.5 MCV 83 MCH 27 L MCHC 32 RDW 18.7 H Plt Count 160 WBC Morphology Sodium 138 Potassium 5.1 H Chloride 91.2 L Carbon Dioxide 25 Anion Gap 27 BUN 52 H Creatinine 5.0 H Estimated GFR 12 BUN/Creatinine Ratio 10 Glucose 222 H Calcium 9.4 CSF Glucose CSF Total Protein CSF VDRL
--- NOTE | 2019-08-05 10:51 | Progress Note ---
Assessment and Plan Cultures: Wound culture - E coli, whittaker sensitive Blood culture 07/26/2019 no growth today CSF 08/02/2019 no organisms, no leukocytes Right labia drainage 08/02/2019 +E coli pansens, Enterococcus A/P: 49 yo F PMHx ESRD on HD, lupus, previous MRSA infection now with wound infection, abdominal pain and seizures 1. Acute sepsis - leukocytosis with leukomoid reaction, some better 52-->47K. Possible source necrotizing pancreatitis +/- right labia abscess +/- less likely sinusitis 2. Presumedly Complicated Pancreatitis: improving; ? CT with generalized edema is noted throughout the pancreas with surrounding moderate inflammation. No distinct pancreatic lesion is identified. Lipase 241. Repeat contrasted CT with severely abnormal pancreas with multiple focal areas of nonperfusion in the distal pancreas. Necrotizing pancreatitis could be considered. There is moderate to large fluid throughout the base of the mesentery and left abdomen which is grossly unchanged. 3. Right labia abscess v/s necrotizing fascitis: Staph vs polymicrobial. Right labia drainage 08/02/2019 +whittaker-sensitive E coli and now Enterococcus. 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 Procalcitonin 22 (high/unclear significance is the setting of ESRD). Repeat Contrasted CT did not include perineum 4. Wound infection right buttocks 5. Lupus - on plaquenil, cellcept and prednisone ? flare 6. New onset Seizures - ?? unclear etiology 7. AMS? received ativan for agitation overnight ? due to sepsis ?lupus. CT head with left maxillary sinusitis. Since patient is immunocompromised will close monitor for OI. S/p LP CSF with no evidence of meningitis. WBC=0, CSF glucose and protein pending. 8. Severe anemia ? plaquenil ? GI bleed 9. Immunocompromised host 10. ESRD on HD - renally dose antibiotics Recs: - continue meropenem IV renally adjusted for necrotizing pancreatitis and labia infection - should cover E coli and E faecalis (along as it is not VRE) - stop vancomycin IV renally adjusted for now - monitor mentation which is better - monitor leukocytosis which some better Will follow. Marly Laura MD Infectious Diseases Couples Therapist [facility] M [phone] O [phone] Subjective Date of service: 08/05/19 Principal diagnosis: anemia, dizziness Interval history: Patient is more alert, follow commands talking. Low grade fever 100.3 yesterday. Objective - Exam Narrative Exam: General appearance: alert in NAD Eyes: anicteric sclerae, clear conjunctivae HENT: Atraumatic; oropharynx clear dry mucosa +NGT Lungs: CTA CV: RRR Abdomen: Soft, tenderness diffusely Extremities: no edema, no cyanosis Skin: No rash. +multiple scattered old scars and +right hip superficial wound Gen: +right labia swelling with small opening not draining purulence Psych: somnolent Neuro: somnolent - Constitutional Vitals: Vital Signs Temp Pulse Resp BP Pulse Ox 98.0 F 79 14 113/69 96 08/05/19 04:00 08/05/19 08:00 08/05/19 08:00 08/05/19 08:00 08/05/19 06:00 Temperature -Last 24 Hours Temperature 98.0 F Temperature 98.0 F Temperature 98.3 F Temperature 97.4 F - Labs CBC & Chem 7: 08/05/19 04:09 08/05/19 04:09 Labs: Abnormal lab results 08/05/19 08/05/19 Range/Units 04:09 04:09 WBC 47.0 H* (4.5-11.0) K/mm3 Hgb 9.8 L (10.1-14.3) gm/dl MCH 27 L (28-32) pg RDW 18.7 H (13.2-15.2) % Potassium 5.1 H (3.6-5.0) mmol/L Chloride 91.2 L (98-107) mmol/L BUN 52 H (7-17) mg/dL Creatinine 5.0 H (0.7-1.2) mg/dL Glucose 222 H (65-100) mg/dL
--- NOTE | 2019-08-05 11:45 | Progress Note ---
Assessment and Plan 1. ESRD: Patient is known to our service. On maintenance hemodialysis three times a week, TTS schedule. 2. FEN: Hyperkalemia, kayexalate ordered. Monitor lytes. 3. Anemia: Epogen with HD. 4. New onset seizures: On Keppra. Neurology following. 5. Severe metabolic encephalopathy: Followed by Neuro. 6. Sepsis. Vulvar abscess. Followed by ID. 7. Acute pancreatitis: Continue supportive care. Seen by GI. 8. History of lupus: On Cellcept, Plaquenil and Prednisone. Examination: General appearance: well-developed, appears stated age, not in distress, NG tube noted EENT: ATNC Respiratory: Clear to Ascultation Cardiology: regular, S1S2, no murmur Gastrointestinal: normoactive bowel sounds, no tenderness, not distended Integumentary: no rash Neurologic: alert, able to tell her name, not following any command Musculoskeletal: no edema Hemodialysis access: L arm AVF Subjective Date of service: 08/05/19 Principal diagnosis: anemia, dizziness Interval history: Patient was seen and examined at the bedside. Objective - Vital Signs Vital signs: Vital Signs - 12hr 08/05/19 08/05/19 08/05/19 00:00 01:00 02:00 Temperature 98.0 F Pulse Rate 83 83 82 Pulse Rate [ 83 From Monitor] Respiratory 21 21 18 Rate Blood Pressure 100/60 105/62 105/62 O2 Sat by Pulse 96 93 96 Oximetry 08/05/19 08/05/19 08/05/19 03:00 04:00 05:00 Temperature 98.0 F Pulse Rate 81 80 77 Pulse Rate [ 76 From Monitor] Respiratory 14 20 21 Rate Blood Pressure 93/57 92/52 107/63 O2 Sat by Pulse 94 95 94 Oximetry 08/05/19 08/05/19 08/05/19 06:00 07:00 08:00 Temperature Pulse Rate 79 78 79 Pulse Rate [ From Monitor] Respiratory 16 13 14 Rate Blood Pressure 104/69 114/67 113/69 O2 Sat by Pulse 96 Oximetry - Lab 08/06/19 05:18 08/06/19 05:18 Most recent lab results Calcium 9.4 mg/dL (8.4-10.2) 08/05/19 04:09 Magnesium 2.00 mg/dL (1.7-2.3) 07/30/19 23:32 Medications & Allergies - Medications Allergies/Adverse Reactions: Allergies lactose Adverse Reaction (Verified 07/29/19 08:16) Unknown Home Medications: Home Medications Medication Instructions Recorded Confirmed Last Taken Type Gabapentin 300 mg PO 3XW 11/14/18 07/26/19 07/25/19 History ALBUTEROL NEB's [Proventil] 2.5 mg IH QID PRN 07/26/19 07/26/19 07/25/19 History Amitriptyline [Elavil] 25 mg PO QHS 07/26/19 07/26/19 07/25/19 History Amitriptyline [Elavil] 25 mg PO QHS 07/26/19 07/26/19 07/25/19 History Cyanocobalamin (Vitamin B-12) 1,000 mcg PO QDAY 07/26/19 07/26/19 07/25/19 History [Vitamin B-12] Folic Acid [Folvite] 1 mg PO QDAY 07/26/19 07/26/19 07/25/19 History Hydroxychloroquine [Plaquenil] 200 mg PO QDAY 07/26/19 07/26/19 07/25/19 History Ibuprofen [Motrin] 800 mg PO Q8HR PRN 07/26/19 07/26/19 07/25/19 History Labetalol HCl [Labetalol 300mg TAB] 300 mg PO Q12H 07/26/19 07/26/19 07/25/19 History Losartan [Cozaar] 50 mg PO QDAY 07/26/19 07/26/19 07/25/19 History Mirtazapine 7.5 mg PO QDAY 07/26/19 07/26/19 07/25/19 History Mycophenolate [Cellcept] 500 mg PO QDAY 07/26/19 07/26/19 07/25/19 History Pantoprazole [Protonix] 40 mg PO BID 07/26/19 07/26/19 07/25/19 History Pregabalin [Lyrica] 25 mg PO QDAY 07/26/19 07/26/19 07/25/19 History Sevelamer HCl [Renagel] 800 mg PO BIDWM 07/26/19 07/26/19 07/25/19 History hydrOXYzine HCL [Atarax] 50 mg PO QDAY 07/26/19 07/26/19 07/25/19 History predniSONE [Deltasone] 20 mg PO QDAY 07/26/19 07/26/19 07/25/19 History Active Medications: Generic Name Dose Route Start Last Admin Trade Name Freq PRN Reason Stop Dose Admin Acetaminophen 650 mg 07/26/19 11:08 08/03/19 21:27 Tylenol PO 650 mg Q6H PRN Administration Pain, Mild (1-3) Albuterol 2.5 mg 07/26/19 15:39 Proventil IH QID PRN Wheezing Lipase/Protease/Amylase 1 each 07/31/19 08:26 Pancreaze 10,500 Unit FEEDTUBE PRN PRN For Clogged Feeding Tube Cyanocobalamin 1,000 mcg 07/27/19 10:00 08/04/19 11:02 Vitamin B-12 PO 1,000 mcg QDAY JOEL Administration Dextrose 25 ml 07/26/19 11:06 07/26/19 12:32 D50w (25gm) Syringe IV 25 ml PRN PRN Administration Hypoglycemia Epoetin Mitch 10,000 unit 07/26/19 10:10 08/04/19 14:15 Procrit IV 10,000 unit FAN PRN Administration hemodialysis Folic Acid 1 mg 07/27/19 10:00 08/04/19 10:58 Folvite PO 1 mg QDAY JOEL Administration Hydralazine HCl 10 mg 07/30/19 20:16 07/31/19 00:05 Apresoline IV 10 mg Q4HR PRN Administration Blood Pressure Hydroxychloroquine Sulfate 200 mg 07/27/19 10:00 08/04/19 10:59 Plaquenil PO 200 mg QDAY JOEL Administration Hydroxyzine HCl 50 mg 07/27/19 10:00 08/04/19 11:01 Atarax PO 50 mg QDAY JOEL Administration Levetiracetam 500 mg/ Dextrose 105 mls @ 400 mls/hr 07/30/19 12:00 08/04/19 22:46 IV 400 mls/hr BID JOEL Administration Sodium Chloride 100 mls @ 999 mls/hr 08/02/19 08:56 Nacl 0.9% IV FAN PRN Hypotension MEROPENEM/NS 1 GRAM/100 ML 1 gram in 100 mls @ 100 mls/hr 08/05/19 10:00 Merrem/Ns 1 Gram/100 Ml IV Q24HR [facility] Protocol Labetalol HCl 300 mg 07/26/19 16:00 08/04/19 22:47 Normodyne PO 300 mg BID JOEL Administration Lansoprazole 30 mg 08/04/19 10:00 08/04/19 22:47 Prevacid Solutab FEEDTUBE 30 mg BID JOEL Administration Losartan Potassium 50 mg 07/27/19 10:00 08/04/19 11:01 Cozaar PO 50 mg QDAY JOEL Administration Morphine Sulfate 1 mg 07/29/19 15:49 08/03/19 15:56 Morphine IV 1 mg Q8H PRN Administration Pain, Moderate (4-6) Mycophenolate Mofetil 500 mg 07/27/19 10:00 08/04/19 11:01 Cellcept PO 500 mg QDAY JOEL Administration Ondansetron HCl 4 mg 07/29/19 23:31 08/03/19 14:40 Zofran IV 4 mg Q6H PRN Administration Nausea And Vomiting Oxycodone/Acetaminophen 1 tab 07/29/19 15:49 08/04/19 23:32 Percocet 5/325 PO 1 tab Q8H PRN Administration Pain, Moderate (4-6) Prednisone 20 mg 07/27/19 10:00 08/04/19 11:00 Deltasone PO 20 mg QDAY JOEL Administration Sevelamer Carbonate 800 mg 07/26/19 16:30 08/04/19 17:33 Renvela PO Not Given 0730,1630 JOEL Simple Syrup 15 ml 07/31/19 08:26 Simple Syrup FEEDTUBE PRN PRN Hypoglycemia Simple Syrup 30 ml 07/31/19 08:26 Simple Syrup FEEDTUBE PRN PRN Hypoglycemia Sodium Bicarbonate 325 mg 07/31/19 08:26 Sodium Bicarbonate FEEDTUBE PRN PRN For Clogged Feeding Tube
[2019-08-05] MEDS: KEPPRA 500 MG in D5W 100 ML IV SCH ×2 (11:58→21:41)
[2019-08-05] MEDS: MERREM/NS 1 GRAM/100 ML 1 GRAM/100 ML BAG IV SCH (11:58)
[2019-08-05] MEDS: PREVACID SOLUTAB FEEDTUBE SCH ×2 (11:59→21:42)
[2019-08-05] MEDS: COZAAR PO SCH (11:59)
[2019-08-05] MEDS: CELLCEPT PO SCH (12:00)
[2019-08-05] MEDS: VITAMIN B-12 PO SCH (12:00)
[2019-08-05] MEDS: ATARAX PO SCH (12:01)
[2019-08-05] MEDS: DELTASONE PO SCH (12:02)
[2019-08-05] MEDS: PLAQUENIL PO SCH ×2 (12:02→12:12)
[2019-08-05] MEDS: FOLVITE PO SCH ×2 (12:02→12:04)
[2019-08-05] MEDS: NORMODYNE PO SCH ×2 (12:02→21:44)
[2019-08-05] MEDS: RENVELA PO SCH ×4 (12:10→17:58)
[2019-08-05] MEDS ORDERED: KIONEX PO ONE ×2 (13:15→18:00)
--- NOTE | 2019-08-05 14:07 | Consultation ---
History of Present Illness Consult date: 08/05/19 Chief complaint: burning in legs - History of present illness History of present illness: 49 yo F with hx of lupus, ESRD presented to ER with c/o burning in her legs. The patient has been admitted since 07/28/19. Pt is a poor historian. All history is obtained from chart. The patient has been treated for sepsis, seizure, labial abscess. She is noncompliant with HD as outpatient. Surgery is consulted for new CT scan finding on 08/03/19 of possible necrotizing pancreatitis. The consult was initially placed for another surgeon and was called to me today 08/05/19 around 12pm. The patient has been afebrile for the last 24 hours. She denies abdominal pain, n/v. She states she is thirsty. TF were to be started however patient pul led dobhoff out several times. It has since been replaced and TF to be initiated per RN. Past History Past Medical History: ESRD, hypertension, other (Lupus) Past Surgical History: Other (left leg fracture, AV fistula, peripheral neuro alexis) Social history: other (marijuana use). denies: smoking, alcohol abuse Family history: hypertension Medications and Allergies Allergies Allergy/AdvReac Type Severity Reaction Status Date / Time lactose AdvReac Unknown Verified 07/29/19 08:16 Home Medications Medication Instructions Recorded Confirmed Last Taken Type Gabapentin 300 mg PO 3XW 11/14/18 07/26/19 07/25/19 History ALBUTEROL NEB's [Proventil] 2.5 mg IH QID PRN 07/26/19 07/26/19 07/25/19 History Amitriptyline [Elavil] 25 mg PO QHS 07/26/19 07/26/19 07/25/19 History Amitriptyline [Elavil] 25 mg PO QHS 07/26/19 07/26/19 07/25/19 History Cyanocobalamin (Vitamin B-12) 1,000 mcg PO QDAY 07/26/19 07/26/19 07/25/19 History [Vitamin B-12] Folic Acid [Folvite] 1 mg PO QDAY 07/26/19 07/26/19 07/25/19 History Hydroxychloroquine [Plaquenil] 200 mg PO QDAY 07/26/19 07/26/19 07/25/19 History Ibuprofen [Motrin] 800 mg PO Q8HR PRN 07/26/19 07/26/19 07/25/19 History Labetalol HCl [Labetalol 300mg TAB] 300 mg PO Q12H 07/26/19 07/26/19 07/25/19 History Losartan [Cozaar] 50 mg PO QDAY 07/26/19 07/26/19 07/25/19 History Mirtazapine 7.5 mg PO QDAY 07/26/19 07/26/19 07/25/19 History Mycophenolate [Cellcept] 500 mg PO QDAY 07/26/19 07/26/19 07/25/19 History Pantoprazole [Protonix] 40 mg PO BID 07/26/19 07/26/19 07/25/19 History Pregabalin [Lyrica] 25 mg PO QDAY 07/26/19 07/26/19 07/25/19 History Sevelamer HCl [Renagel] 800 mg PO BIDWM 07/26/19 07/26/19 07/25/19 History hydrOXYzine HCL [Atarax] 50 mg PO QDAY 07/26/19 07/26/19 07/25/19 History predniSONE [Deltasone] 20 mg PO QDAY 07/26/19 07/26/19 07/25/19 History Active Meds: Active Medications Acetaminophen (Tylenol) 650 mg PO Q6H PRN PRN Reason: Pain, Mild (1-3) Last Admin: 08/03/19 21:27 Dose: 650 mg Documented by: Albuterol (Proventil) 2.5 mg IH QID PRN PRN Reason: Wheezing Lipase/Protease/Amylase (Pancremarcella Diane 10,500 Unit) 1 each FEEDTUBE PRN PRN PRN Reason: For Clogged Feeding Tube Cyanocobalamin (Vitamin B-12) 1,000 mcg PO QDAY JOEL Last Admin: 08/05/19 12:00 Dose: 1,000 mcg Documented by: Dextrose (D50w (25gm) Syringe) 25 ml IV PRN PRN PRN Reason: Hypoglycemia Last Admin: 07/26/19 12:32 Dose: 25 ml Documented by: Epoetin Mitch (Procrit) 10,000 unit IV FAN PRN PRN Reason: hemodialysis Last Admin: 08/04/19 14:15 Dose: 10,000 unit Documented by: Folic Acid (Folvite) 1 mg PO QDAY [facility] Last Admin: 08/05/19 12:04 Dose: 1 mg Documented by: Hydralazine HCl (Apresoline) 10 mg IV Q4HR PRN PRN Reason: Blood Pressure Last Admin: 07/31/19 00:05 Dose: 10 mg Documented by: Hydroxychloroquine Sulfate (Plaquenil) 200 mg PO QDAY [facility] Last Admin: 08/05/19 12:12 Dose: 200 mg Documented by: Hydroxyzine HCl (Atarax) 50 mg PO QDAY [facility] Last Admin: 08/05/19 12:01 Dose: 50 mg Documented by: Levetiracetam 500 mg/ Dextrose 105 mls @ 400 mls/hr IV BID [facility] Last Admin: 08/05/19 11:58 Dose: 400 mls/hr Documented by: Sodium Chloride (Nacl 0.9%) 100 mls @ 999 mls/hr IV FAN PRN PRN Reason: Hypotension MEROPENEM/NS 1 GRAM/100 ML (Merrem/Ns 1 Gram/100 Ml) 1 gram in 100 mls @ 100 mls/hr IV Q24HR [facility]; Protocol Last Admin: 08/05/19 11:58 Dose: 100 mls/hr Documented by: Labetalol HCl (Normodyne) 300 mg PO BID [facility] Last Admin: 08/05/19 12:02 Dose: 300 mg Documented by: Lansoprazole (Prevacid Solutab) 30 mg FEEDTUBE BID [facility] Last Admin: 08/05/19 11:59 Dose: 30 mg Documented by: Losartan Potassium (Cozaar) 50 mg PO QDAY [facility] Last Admin: 08/05/19 11:59 Dose: 50 mg Documented by: Morphine Sulfate (Morphine) 1 mg IV Q8H PRN PRN Reason: Pain, Moderate (4-6) Last Admin: 08/03/19 15:56 Dose: 1 mg Documented by: Mycophenolate Mofetil (Cellcept) 500 mg PO QDAY [facility] Last Admin: 08/05/19 12:00 Dose: 500 mg Documented by: Ondansetron HCl (Zofran) 4 mg IV Q6H PRN PRN Reason: Nausea And Vomiting Last Admin: 08/03/19 14:40 Dose: 4 mg Documented by: Oxycodone/Acetaminophen (Percocet 5/325) 1 tab PO Q8H PRN PRN Reason: Pain, Moderate (4-6) Last Admin: 08/04/19 23:32 Dose: 1 tab Documented by: Prednisone (Deltasone) 20 mg PO QDAY [facility] Last Admin: 08/05/19 12:02 Dose: 20 mg Documented by: Sevelamer Carbonate (Renvela) 800 mg PO 0730,1630 [facility] Last Admin: 08/05/19 12:10 Dose: Not Given Documented by: Simple Syrup (Simple Syrup) 15 ml FEEDTUBE PRN PRN PRN Reason: Hypoglycemia Simple Syrup (Simple Syrup) 30 ml FEEDTUBE PRN PRN PRN Reason: Hypoglycemia Sodium Bicarbonate (Sodium Bicarbonate) 325 mg FEEDTUBE PRN PRN PRN Reason: For Clogged Feeding Tube Review of Systems ROS unobtainable: due to mental status (limited ROS performed) Exam Vital Signs Temp Pulse Resp BP Pulse Ox 99.8 F H 118 H 20 127/79 99 07/26/19 04:00 07/26/19 04:00 07/26/19 04:00 07/26/19 04:00 07/26/19 04:00 Narrative exam: Gen: Awake and alert to person place and time. NAD ENT; dobhoff in place CV; s1, s2+ Resp: even and unlabored Abd: soft, NT, ND. no r/r/g Ext: no c/c/e. LUE AVF Results - Labs 08/05/19 04:09 08/05/19 04:09 Abnormal lab results 08/05/19 08/05/19 Range/Units 04:09 04:09 WBC 47.0 H* (4.5-11.0) K/mm3 Hgb 9.8 L (10.1-14.3) gm/dl MCH 27 L (28-32) pg RDW 18.7 H (13.2-15.2) % Potassium 5.1 H (3.6-5.0) mmol/L Chloride 91.2 L (98-107) mmol/L BUN 52 H (7-17) mg/dL Creatinine 5.0 H (0.7-1.2) mg/dL Glucose 222 H (65-100) mg/dL Diabetes panel 08/05/19 Range/Units 04:09 Sodium 138 (137-145) mmol/L Potassium 5.1 H (3.6-5.0) mmol/L Chloride 91.2 L (98-107) mmol/L Carbon Dioxide 25 (22-30) mmol/L BUN 52 H (7-17) mg/dL Creatinine 5.0 H (0.7-1.2) mg/dL Glucose 222 H (65-100) mg/dL Calcium 9.4 (8.4-10.2) mg/dL Calcium panel 08/05/19 Range/Units 04:09 Calcium 9.4 (8.4-10.2) mg/dL Pituitary panel 08/05/19 Range/Units 04:09 Sodium 138 (137-145) mmol/L Potassium 5.1 H (3.6-5.0) mmol/L Chloride 91.2 L (98-107) mmol/L Carbon Dioxide 25 (22-30) mmol/L BUN 52 H (7-17) mg/dL Creatinine 5.0 H (0.7-1.2) mg/dL Glucose 222 H (65-100) mg/dL Calcium 9.4 (8.4-10.2) mg/dL Adrenal panel 08/05/19 Range/Units 04:09 Sodium 138 (137-145) mmol/L Potassium 5.1 H (3.6-5.0) mmol/L Chloride 91.2 L (98-107) mmol/L Carbon Dioxide 25 (22-30) mmol/L BUN 52 H (7-17) mg/dL Creatinine 5.0 H (0.7-1.2) mg/dL Glucose 222 H (65-100) mg/dL Calcium 9.4 (8.4-10.2) mg/dL - Imaging Abdominal x-ray: report reviewed, image reviewed CT scan - abdomen: report reviewed, image reviewed CT scan - pelvis: report reviewed, image reviewed Assessment and Plan 29 yo F with 1. sepsis 2. labial abscess - ecoli, enterococcus 3. pancreatitis, possibly necrotizing - etiology unknown ?drug induced 4. ESRD on HD 5. lupus Ct scan A/P reviewed with radiologist Dr. Araujo. Free fluid surrounding pancreas, no air in fluid to suggest infection. Likely necrosis of distal pancreas Plan: 1. ok to start post pyloric TF via dobhoff 2. recommend MRCP to evaluate possible anatomical causes of pancreatitis. Abd u/s negative for gallstones and no hx of etoh use 3. prn pain control 4. continue abx per ID 5. monitor WBC 6. gentle IVF 7. HD per nephro 8. monitor lipase Currently patient is hemodynamically stable and without abdominal pain. If pat renita's WBC does not improve, she becomes febrile, or she shows signs of decompensation (tachycardia/hypotension), she should be transferred to a tertiary care facility for further management and surgical evaluation for pancreatic necrosectomy. Thank you, please call with questions.
--- NOTE | 2019-08-05 14:38 | Progress Note ---
Assessment and Plan Persistent leukocytosis, ID evaluated, ordered C. difficile. Lumbar puncture done--negative * Transfuse 2 unit of PRBC with dialysis * CT abdomen and pelvis reviewed, concerning for severe pancreatitis, nectrotizing tissue could not be excluded * Surgery consulted to evaluate narcotizing pancreatitis * HD per schedule * MRCP ordered --New onset seizures : On Keppra, Seizure precautions, Follow EEG, CT head negative for acute abnormality MRI brain no acute abnormalities . Neurology following -No evidence of Meningitis on LP lab review --Severe Metabolic encephalopathy; multifactorial Sepsis, seizures, acute pancreatitis , ESRD. Bun much improved following dialysis --Persistent leukocytosis; altered level of consciousness Escherichia coli sepsis Continue cefepime ?Reactive vs from acute pancreatitis C. difficile, --Acute pancreatitis on CT/elevated lipase Continue supportive care, GI consulted SURGERY CONSULTED --Episode of Coffee-ground emesis; closely monitor H&H GI consult. Give additional 2 units PRBC for a total of 4 units --History of lupus; resume home medications Possible flareup, monitor --Sepsis; Escherichia coli wound infection IV antibiotics, supportive care --Hypotension; If no improvement, consider vasopressors and transferred to ICU --Hyperkalemia; resolved secondary to end-stage renal disease --End-stage renal disease; on hemodialysis HD per schedule, nephrology --Moderate malnutrition/hypoalbuminemia; Dobbhoff placement Tube feeding per protocol --DVT prophylaxis; Lovenox renal dose Plan of care reviewed with the patient's nurse D/W Family members patient's sister/next of kin Mariya Painting at [phone] UPDATED Disposition; patient is critically ill, follow multiple dynamics ax consultant's Evaluations and recommendations CCT 40 minutes Subjective Date of service: 08/05/19 Principal diagnosis: anemia, dizziness Interval history: 29-year-old -[place] female patient with significant past medical history of end-stage renal disease on hemodialysis lupus chronic pain syndrome history of MRSA infection in the past was admitted through emergency room with bilateral lower extremity cramping burning sensation hyperkalemia fluid overload fevers, treated empirically with antibiotics received hemodialysis per schedule, Wound cultures positive for Escherichia coli on appropriate antibiotics Patient developed new onset seizures on 07/30/2019, received Keppra and Ativan Evaluated by neurology, CT head negative, patient remained Lethargic noncommunicative since first episode of seizure ,MRI done today was negative for acute abnormalities, Objective - Constitutional Vitals: Vital Signs - 12hr 08/05/19 08/05/19 08/05/19 03:00 04:00 05:00 Temperature 98.0 F Pulse Rate 81 80 77 Pulse Rate [ 76 From Monitor] Respiratory 14 20 21 Rate Blood Pressure 93/57 92/52 107/63 O2 Sat by Pulse 94 95 94 Oximetry 08/05/19 08/05/19 08/05/19 06:00 07:00 08:00 Temperature Pulse Rate 79 78 79 Pulse Rate [ From Monitor] Respiratory 16 13 14 Rate Blood Pressure 104/69 114/67 113/69 O2 Sat by Pulse 96 Oximetry 08/05/19 08/05/19 08/05/19 09:00 10:00 11:00 Temperature Pulse Rate 91 H 82 82 Pulse Rate [ From Monitor] Respiratory 29 H 21 12 Rate Blood Pressure 98/67 101/65 112/65 O2 Sat by Pulse 96 97 Oximetry 08/05/19 08/05/19 08/05/19 11:59 12:00 12:02 Temperature Pulse Rate 84 82 82 Pulse Rate [ From Monitor] Respiratory 13 Rate Blood Pressure 112/65 109/70 109/70 O2 Sat by Pulse 96 Oximetry General appearance: Present: no acute distress, well-nourished - EENT Eyes: PERRL, EOM intact ENT: hearing intact, clear oral mucosa, other (Dobhoff in place) Ears: bilateral: normal - Neck Neck: supple, normal ROM - Respiratory Respiratory effort: normal Respiratory: bilateral: CTA - Breasts Breasts: normal - Cardiovascular Heart rate: 88 Rhythm: regular Heart Sounds: Present: S1 & S2. Absent: gallop, rub Extremities: pulses intact, No edema, normal color, Full ROM - Gastrointestinal General gastrointestinal: Present: soft, non-tender, non-distended, normal bowel sounds - Genitourinary Female genitourinary: normal - Integumentary Integumentary: clear, warm, dry - Musculoskeletal Musculoskeletal: 1, strength equal bilaterally - Neurologic Neurologic: moves all extremities - Psychiatric Psychiatric: memory intact, appropriate mood/affect, intact judgment & insight - Labs CBC & Chem 7: 08/06/19 05:18 08/06/19 05:18 Labs: Abnormal lab results 08/05/19 08/05/19 Range/Units 04:09 04:09 WBC 47.0 H* (4.5-11.0) K/mm3 Hgb 9.8 L (10.1-14.3) gm/dl MCH 27 L (28-32) pg RDW 18.7 H (13.2-15.2) % Potassium 5.1 H (3.6-5.0) mmol/L Chloride 91.2 L (98-107) mmol/L BUN 52 H (7-17) mg/dL Creatinine 5.0 H (0.7-1.2) mg/dL Glucose 222 H (65-100) mg/dL
[2019-08-05] MEDS: PERCOCET 5/325 PO PRN (21:42)
[2019-08-06 06:08] LABS: Hematocrit 28.4 % (30.3-42.9); Hemoglobin 8.8 gm/dl (10.1-14.3); Mean Corpuscular HGB Conc 31 % (30-34); Mean Corpuscular Volume 85 fl (79-97); Red Blood Count 3.35 M/mm3 (3.65-5.03)
[2019-08-06 06:11] LABS: Red Cell Distribution Width 20.1 % (13.2-15.2)
[2019-08-06 06:20] LABS: Albumin 2.4 g/dL (3.9-5); Calcium 9.5 mg/dL (8.4-10.2)
[2019-08-06 08:39] LABS: Total Cells Counted 100
[2019-08-06 08:40] LABS: Anisocytosis 1+; Band Neutrophils # (Manual) 2.6 K/mm3; Basophils % (Manual) 0 % (0.0-1.8); Eosinophils % (Manual) 0 % (0.0-4.3); Myelocytes # (Manual) 0.4 K/mm3
[2019-08-06 08:41] LABS: Poikilocytosis Few
[2019-08-06] MEDS: RENVELA PO SCH ×2 (08:41→16:46)
[2019-08-06 08:55] LABS: Platelet Count 208 K/mm3 (140-440)
[2019-08-06] MEDS: MERREM/NS 1 GRAM/100 ML 1 GRAM/100 ML BAG IV SCH (09:30)
[2019-08-06] MEDS: KEPPRA 500 MG in D5W 100 ML IV SCH ×2 (10:18→21:38)
[2019-08-06] MEDS ORDERED: CALCIUM GLUCONATE 2,000 MG in NACL 0.9% 100 ML IV ONE (10:57)
--- NOTE | 2019-08-06 11:06 | Progress Note ---
Assessment and Plan Sepsis Acute sepsis - leukocytosis with leukomoid reaction, some better 52-->47K--37K. Possible source necrotizing pancreatitis +/- right labia abscess +/- less likely sinusitis Presumedly Complicated Pancreatitis: improving; ? CT with generalized edema is noted throughout the pancreas with surrounding moderate inflammation. No distinct pancreatic lesion is identified. Lipase 241. Repeat contrasted CT with severely abnormal pancreas with multiple focal areas of nonperfusion in the distal pancreas. Necrotizing pancreatitis could be considered. There is moderate to large fluid throughout the base of the mesentery and left abdomen which is grossly unchanged. For MRCP today for better visualization of pancreas. Right labia abscess v/s necrotizing fascitis: Staph vs polymicrobial. Right labia drainage 08/02/2019 +whittaker-sensitive E coli and now Enterococcus. CLERK on board. Procalcitonin 22 (high/unclear significance is the setting of ESRD). Repeat Contrasted CT did not include perineum Wound infection right buttocks Escherichia coli sepsis Continue cefepime --New onset seizures : On Keppra, Seizure precautions, Follow EEG, CT head negative for acute abnormality MRI brain no acute abnormalities . Neurology following -No evidence of Meningitis on LP lab review --Severe Metabolic encephalopathy; multifactorial Sepsis, seizures, acute pancreatitis , ESRD. Bun much improved following dialysis --Acute pancreatitis on CT/elevated lipase Continue supportive care, GI consulted SURGERY consult appreciated For MRCP today --Episode of Coffee-ground emesis; closely monitor H&H GI consult. Given additional 2 units PRBC for a total of 4 units Resolved --History of lupus; resume home medications Possible flareup, monitor --Sepsis; Escherichia coli wound infection IV antibiotics, supportive care --Hypotension; Improved --Hyperkalemia; IV Calcium gluconate given secondary to end-stage renal disease --End-stage renal disease; on hemodialysis HD per schedule, nephrology --Moderate malnutrition/hypoalbuminemia; Dobbhoff placement Tube feeding per protocol --DVT prophylaxis; Lovenox renal dose Plan of care reviewed with the patient's nurse Disposition; patient is critically ill, follow multiple engagement quality consultant's Evaluations and recommendations CCT 35 minutes Transfer to floor Subjective Date of service: 08/06/19 Principal diagnosis: anemia, dizziness Interval history: 29-year-old -[place] female patient with significant past medical history of end-stage renal disease on hemodialysis lupus chronic pain syndrome history of MRSA infection in the past was admitted through emergency room with bilateral lower extremity cramping burning sensation hyperkalemia fluid overload fevers, treated empirically with antibiotics received hemodialysis per schedule, Wound cultures positive for Escherichia coli on appropriate antibiotics Patient developed new onset seizures on 07/30/2019, received Keppra and Ativan Evaluated by neurology, CT head negative, More alert.Non communicative ,MRI done was negative for acute abnormalities, Objective - Constitutional Vitals: Vital Signs - 12hr 08/05/19 08/06/19 08/06/19 23:35 00:00 01:00 Temperature 97.6 F Pulse Rate 84 82 Pulse Rate [ 84 From Monitor] Respiratory 20 24 Rate Blood Pressure 112/73 117/58 O2 Sat by Pulse 97 94 Oximetry 08/06/19 08/06/19 08/06/19 02:00 03:00 03:42 Temperature 97.4 F L Pulse Rate 79 83 Pulse Rate [ From Monitor] Respiratory 18 14 Rate Blood Pressure 107/68 117/69 O2 Sat by Pulse 97 98 Oximetry 08/06/19 08/06/19 08/06/19 04:00 05:00 06:00 Temperature Pulse Rate 85 76 75 Pulse Rate [ 84 From Monitor] Respiratory 13 18 16 Rate Blood Pressure 117/69 109/69 102/55 O2 Sat by Pulse 99 5 L 97 Oximetry 08/06/19 07:00 Temperature Pulse Rate 81 Pulse Rate [ From Monitor] Respiratory 16 Rate Blood Pressure 103/57 O2 Sat by Pulse 98 Oximetry General appearance: Present: no acute distress, well-nourished - EENT Eyes: PERRL, EOM intact ENT: hearing intact, clear oral mucosa Ears: bilateral: normal - Neck Neck: supple, normal ROM - Respiratory Respiratory effort: normal Respiratory: bilateral: CTA - Breasts Breasts: normal - Cardiovascular Rhythm: regular Heart Sounds: Present: S1 & S2. Absent: gallop, rub Extremities: no ischemia, pulses intact, No edema, normal color, Full ROM - Gastrointestinal General gastrointestinal: Present: soft, non-tender, non-distended, normal bowel sounds - Genitourinary Female genitourinary: normal - Integumentary Integumentary: clear, warm, dry - Musculoskeletal Musculoskeletal: generalized weakness - Neurologic Neurologic: moves all extremities - Allied health notes Allied health notes reviewed: nursing, case management - Labs CBC & Chem 7: 08/06/19 05:18 08/06/19 05:18 Labs: Abnormal lab results 08/06/19 08/06/19 08/06/19 Range/Units 05:18 05:18 07:39 WBC 37.8 H (4.5-11.0) K/mm3 RBC 3.35 L (3.65-5.03) M/mm3 Hgb 8.8 L (10.1-14.3) gm/dl Hct 28.4 L (30.3-42.9) % MCH 26 L (28-32) pg RDW 20.1 H (13.2-15.2) % Seg Neuts % (Manual) 80.0 H (40.0-70.0) % Lymphocytes % (Manual) 3.0 L (13.4-35.0) % Seg Neutrophils # Man 30.2 H (1.8-7.7) K/mm3 Lymphocytes # (Manual) 1.1 L (1.2-5.4) K/mm3 Monocytes # (Manual) 1.9 H (0.0-0.8) K/mm3 Sodium 131 L D (137-145) mmol/L Potassium 5.4 H (3.6-5.0) mmol/L Chloride 85.8 L (98-107) mmol/L Carbon Dioxide 20 L (22-30) mmol/L BUN 86 H (7-17) mg/dL Creatinine 7.1 H (0.7-1.2) mg/dL Glucose 366 H (65-100) mg/dL POC Glucose 420 H (70-105) Albumin 2.4 L (3.9-5) g/dL Amylase (27-131) units/L Lipase (13-60) units/L 08/06/19 Range/Units 09:20 WBC (4.5-11.0) K/mm3 RBC (3.65-5.03) M/mm3 Hgb (10.1-14.3) gm/dl Hct (30.3-42.9) % MCH (28-32) pg RDW (13.2-15.2) % Seg Neuts % (Manual) (40.0-70.0) % Lymphocytes % (Manual) (13.4-35.0) % Seg Neutrophils # Man (1.8-7.7) K/mm3 Lymphocytes # (Manual) (1.2-5.4) K/mm3 Monocytes # (Manual) (0.0-0.8) K/mm3 Sodium (137-145) mmol/L Potassium (3.6-5.0) mmol/L Chloride (98-107) mmol/L Carbon Dioxide (22-30) mmol/L BUN (7-17) mg/dL Creatinine (0.7-1.2) mg/dL Glucose (65-100) mg/dL POC Glucose (70-105) Albumin (3.9-5) g/dL Amylase 425 H (27-131) units/L Lipase 250 H (13-60) units/L
[2019-08-06] MEDS: ZOFRAN IV PRN (11:32)
[2019-08-06] MEDS: MORPHINE IV PRN (11:32)
[2019-08-06] MEDS: CELLCEPT PO SCH (12:21)
[2019-08-06] MEDS: ATARAX PO SCH (12:21)
[2019-08-06] MEDS: COZAAR PO SCH (12:22)
[2019-08-06] MEDS: NORMODYNE PO SCH (12:25)
[2019-08-06] MEDS: DELTASONE PO SCH (12:25)
[2019-08-06] MEDS: FOLVITE PO SCH (12:25)
[2019-08-06] MEDS: VITAMIN B-12 PO SCH (12:26)
[2019-08-06] MEDS: PREVACID SOLUTAB FEEDTUBE SCH (12:26)
[2019-08-06] MEDS: PLAQUENIL PO SCH (12:26)
--- NOTE | 2019-08-06 13:08 | Event Note ---
Date: 08/06/19 Patient is currently at MRI. All pertinent notes and studies were reviewed. Patient appears to be improving. Will keep nothing by mouth for now. We will follow-up on MRCP results. Please call with questions
--- NOTE | 2019-08-06 13:29 | Progress Note ---
Assessment and Plan 1. ESRD: Patient is known to our service. On maintenance hemodialysis three times a week, TTS schedule. HD today. 2. FEN: Hyperkalemia, HD today with low K bath. Monitor lytes. 3. Anemia: Epogen with HD. 4. New onset seizures: On Keppra. 5. Metabolic encephalopathy: Improving. 6. Sepsis. Vulvar abscess. Followed by ID. 7. Acute pancreatitis: Continue supportive care. Seen by GI. 8. History of lupus: On Cellcept, Plaquenil and Prednisone. Examination: General appearance: well-developed, appears stated age, not in distress HEENT: ATNC Respiratory: Clear to Ascultation Cardiology: regular, S1S2, no murmur Gastrointestinal: normoactive bowel sounds, no tenderness, not distended Integumentary: no rash Neurologic: alert, able to tell her name, able to move extremities Musculoskeletal: no edema Hemodialysis access: L arm AVF Subjective Date of service: 08/06/19 Principal diagnosis: anemia, dizziness Interval history: Patient was seen and examined at the bedside. Objective - Vital Signs Vital signs: Vital Signs - 12hr 08/06/19 08/06/19 08/06/19 02:00 03:00 03:42 Temperature 97.4 F L Pulse Rate 79 83 Pulse Rate [ From Monitor] Respiratory 18 14 Rate Blood Pressure 107/68 117/69 O2 Sat by Pulse 97 98 Oximetry 08/06/19 08/06/19 08/06/19 04:00 05:00 06:00 Temperature Pulse Rate 85 76 75 Pulse Rate [ 84 From Monitor] Respiratory 13 18 16 Rate Blood Pressure 117/69 109/69 102/55 O2 Sat by Pulse 99 5 L 97 Oximetry 08/06/19 08/06/19 08/06/19 07:00 08:00 09:00 Temperature Pulse Rate 81 79 79 Pulse Rate [ 79 From Monitor] Respiratory 16 17 17 Rate Blood Pressure 103/57 104/50 114/60 O2 Sat by Pulse 98 96 Oximetry 08/06/19 08/06/19 08/06/19 10:00 11:00 12:00 Temperature Pulse Rate 87 81 78 Pulse Rate [ 78 From Monitor] Respiratory 14 18 18 Rate Blood Pressure 111/63 117/72 115/70 O2 Sat by Pulse 97 88 98 Oximetry - Lab 08/06/19 05:18 08/06/19 05:18 Most recent lab results Calcium 9.5 mg/dL (8.4-10.2) 08/06/19 05:18 Magnesium 2.00 mg/dL (1.7-2.3) 07/30/19 23:32 Medications & Allergies - Medications Allergies/Adverse Reactions: Allergies lactose Adverse Reaction (Verified 07/29/19 08:16) Unknown Home Medications: Home Medications Medication Instructions Recorded Confirmed Last Taken Type Gabapentin 300 mg PO 3XW 11/14/18 07/26/19 07/25/19 History ALBUTEROL NEB's [Proventil] 2.5 mg IH QID PRN 07/26/19 07/26/19 07/25/19 History Amitriptyline [Elavil] 25 mg PO QHS 07/26/19 07/26/19 07/25/19 History Amitriptyline [Elavil] 25 mg PO QHS 07/26/19 07/26/19 07/25/19 History Cyanocobalamin (Vitamin B-12) 1,000 mcg PO QDAY 07/26/19 07/26/19 07/25/19 History [Vitamin B-12] Folic Acid [Folvite] 1 mg PO QDAY 07/26/19 07/26/19 07/25/19 History Hydroxychloroquine [Plaquenil] 200 mg PO QDAY 07/26/19 07/26/19 07/25/19 History Ibuprofen [Motrin] 800 mg PO Q8HR PRN 07/26/19 07/26/19 07/25/19 History Labetalol HCl [Labetalol 300mg TAB] 300 mg PO Q12H 07/26/19 07/26/19 07/25/19 History Losartan [Cozaar] 50 mg PO QDAY 07/26/19 07/26/19 07/25/19 History Mirtazapine 7.5 mg PO QDAY 07/26/19 07/26/19 07/25/19 History Mycophenolate [Cellcept] 500 mg PO QDAY 07/26/19 07/26/19 07/25/19 History Pantoprazole [Protonix] 40 mg PO BID 07/26/19 07/26/19 07/25/19 History Pregabalin [Lyrica] 25 mg PO QDAY 07/26/19 07/26/19 07/25/19 History Sevelamer HCl [Renagel] 800 mg PO BIDWM 07/26/19 07/26/19 07/25/19 History hydrOXYzine HCL [Atarax] 50 mg PO QDAY 07/26/19 07/26/19 07/25/19 History predniSONE [Deltasone] 20 mg PO QDAY 07/26/19 07/26/19 07/25/19 History Active Medications: Generic Name Dose Route Start Last Admin Trade Name Freq PRN Reason Stop Dose Admin Acetaminophen 650 mg 07/26/19 11:08 08/03/19 21:27 Tylenol PO 650 mg Q6H PRN Administration Pain, Mild (1-3) Albuterol 2.5 mg 07/26/19 15:39 Proventil IH QID PRN Wheezing Lipase/Protease/Amylase 1 each 07/31/19 08:26 Pancreaze 10,500 Unit FEEDTUBE PRN PRN For Clogged Feeding Tube Cyanocobalamin 1,000 mcg 07/27/19 10:00 08/06/19 12:26 Vitamin B-12 PO Not Given QDAY [facility] Dextrose 25 ml 07/26/19 11:06 07/26/19 12:32 D50w (25gm) Syringe IV 25 ml PRN PRN Administration Hypoglycemia Epoetin Mitch 10,000 unit 07/26/19 10:10 08/04/19 14:15 Procrit IV 10,000 unit FAN PRN Administration hemodialysis Folic Acid 1 mg 07/27/19 10:00 08/06/19 12:25 Folvite PO Not Given QDAY [facility] Hydralazine HCl 10 mg 07/30/19 20:16 07/31/19 00:05 Apresoline IV 10 mg Q4HR PRN Administration Blood Pressure Hydroxychloroquine Sulfate 200 mg 07/27/19 10:00 08/06/19 12:26 Plaquenil PO Not Given QDAY [facility] Hydroxyzine HCl 50 mg 07/27/19 10:00 08/06/19 12:21 Atarax PO Not Given QDAY [facility] Levetiracetam 500 mg/ Dextrose 105 mls @ 400 mls/hr 07/30/19 12:00 08/06/19 10:18 IV 400 mls/hr BID JOEL Administration Sodium Chloride 100 mls @ 999 mls/hr 08/02/19 08:56 Nacl 0.9% IV FAN PRN Hypotension MEROPENEM/NS 1 GRAM/100 ML 1 gram in 100 mls @ 100 mls/hr 08/05/19 10:00 08/06/19 09:30 Merrem/Ns 1 Gram/100 Ml IV 100 mls/hr Q24HR JOEL Administration Protocol Labetalol HCl 300 mg 07/26/19 16:00 08/06/19 12:25 Normodyne PO Not Given BID [facility] Lansoprazole 30 mg 08/04/19 10:00 08/06/19 12:26 Prevacid Solutab FEEDTUBE Not Given BID [facility] Losartan Potassium 50 mg 07/27/19 10:00 08/06/19 12:22 Cozaar PO Not Given QDAY [facility] Morphine Sulfate 1 mg 07/29/19 15:49 08/06/19 11:32 Morphine IV 1 mg Q8H PRN Administration Pain, Moderate (4-6) Mycophenolate Mofetil 500 mg 07/27/19 10:00 08/06/19 12:21 Cellcept PO Not Given QDAY [facility] Ondansetron HCl 4 mg 07/29/19 23:31 08/06/19 11:32 Zofran IV 4 mg Q6H PRN Administration Nausea And Vomiting Oxycodone/Acetaminophen 1 tab 07/29/19 15:49 08/05/19 21:42 Percocet 5/325 PO 1 tab Q8H PRN Administration Pain, Moderate (4-6) Prednisone 20 mg 07/27/19 10:00 08/06/19 12:25 Deltasone PO Not Given QDAY [facility] Sevelamer Carbonate 800 mg 07/26/19 16:30 08/06/19 08:41 Renvela PO Not Given 0730,1630 [facility] Simple Syrup 15 ml 07/31/19 08:26 Simple Syrup FEEDTUBE PRN PRN Hypoglycemia Simple Syrup 30 ml 07/31/19 08:26 Simple Syrup FEEDTUBE PRN PRN Hypoglycemia Sodium Bicarbonate 325 mg 07/31/19 08:26 Sodium Bicarbonate FEEDTUBE PRN PRN For Clogged Feeding Tube
--- NOTE | 2019-08-06 13:54 | Gastroenterology Progress Note ---
Assessment and Plan 1. Pancreatitis: noted high wbc with possible signs necrotizing diseae - surgery input noted - agree w/ MRI - conservative management with npo, IV fluids, pain meds - noted increase amylase/lipase, follow labs -await further surgery/ID input 2. GI: noted previous coffee grounds and now slight decrease h/h - PPI iv - npo - no plans to scope at this time - will follow Subjective Date of service: 08/06/19 Principal diagnosis: anemia, dizziness Interval history: - pt slightly improved at this time, awaiting mri Objective - Constitutional Vitals: Temp Pulse Resp BP Pulse Ox 97.4 F L 78 18 115/70 98 08/06/19 03:42 08/06/19 12:00 08/06/19 12:00 08/06/19 12:00 08/06/19 12:00 General appearance: no acute distress - EENT Eyes: PERRL - Respiratory Respiratory: bilateral: rhonchi - Cardiovascular Rhythm: regular Heart Sounds: Present: S1 & S2 - Gastrointestinal General gastrointestinal: Present: soft, non-tender, non-distended - Labs CBC & Chem 7: 08/06/19 05:18 08/06/19 05:18 Labs: Laboratory Results - last 24 hr 08/01/19 08/01/19 08/06/19 16:07 16:07 05:18 WBC RBC Hgb Hct MCV MCH MCHC RDW Plt Count Add Manual Diff Total Counted Seg Neuts % (Manual) Band Neutrophils % Lymphocytes % (Manual) Reactive Lymphs % (Man) Monocytes % (Manual) Eosinophils % (Manual) Basophils % (Manual) Metamyelocytes % Myelocytes % Promyelocytes % Blast Cells % Nucleated RBC % Seg Neutrophils # Man Band Neutrophils # Lymphocytes # (Manual) Abs React Lymphs (Man) Monocytes # (Manual) Eosinophils # (Manual) Basophils # (Manual) Metamyelocytes # Myelocytes # Promyelocytes # Blast Cells # WBC Morphology Hypersegmented Neuts Hyposegmented Neuts Hypogranular Neuts Smudge Cells Toxic Granulation Toxic Vacuolation Dohle Bodies Pelger-Huet Anomaly Rose Rods Platelet Estimate Clumped Platelets Plt Clumps, EDTA Large Platelets Giant Platelets Platelet Satelliting Plt Morphology Comment RBC Morphology Dimorphic RBCs Polychromasia Hypochromasia Poikilocytosis Anisocytosis Microcytosis Macrocytosis Spherocytes Pappenheimer Bodies Sickle Cells Target Cells Tear Drop Cells Ovalocytes Helmet Cells Benavidez-[place] Bodies Atkins Rings Bk Cells Bite Cells Crenated Cell Elliptocytes Acanthocytes (Spur) Rouleaux Hemoglobin C Crystals Schistocytes Malaria parasites Dinesh Bodies Hem Pathologist Commnt Sodium Potassium Chloride Carbon Dioxide Anion Gap BUN Creatinine Estimated GFR BUN/Creatinine Ratio Glucose POC Glucose Calcium Total Bilirubin AST ALT Alkaline Phosphatase Total Protein Albumin Albumin/Globulin Ratio Amylase Lipase Random Vancomycin 14.9 Complement C3 107 Complement C4 32 08/06/19 08/06/19 08/06/19 05:18 05:18 07:39 WBC 37.8 H RBC 3.35 L Hgb 8.8 L Hct 28.4 L MCV 85 MCH 26 L MCHC 31 RDW 20.1 H Plt Count 208 Add Manual Diff Complete Total Counted 100 Seg Neuts % (Manual) 80.0 H Band Neutrophils % 7.0 Lymphocytes % (Manual) 3.0 L Reactive Lymphs % (Man) 0 Monocytes % (Manual) 5.0 Eosinophils % (Manual) 0 Basophils % (Manual) 0 Metamyelocytes % 4.0 Myelocytes % 1.0 Promyelocytes % 0 Blast Cells % 0 Nucleated RBC % Not Reportable Seg Neutrophils # Man 30.2 H Band Neutrophils # 2.6 Lymphocytes # (Manual) 1.1 L Abs React Lymphs (Man) 0.0 Monocytes # (Manual) 1.9 H Eosinophils # (Manual) 0.0 Basophils # (Manual) 0.0 Metamyelocytes # 1.5 Myelocytes # 0.4 Promyelocytes # 0.0 Blast Cells # 0.0 WBC Morphology Not Reportable Hypersegmented Neuts Not Reportable Hyposegmented Neuts Not Reportable Hypogranular Neuts Not Reportable Smudge Cells Not Reportable Toxic Granulation Not Reportable Toxic Vacuolation Not Reportable Dohle Bodies Not Reportable Pelger-Huet Anomaly Not Reportable Rose Rods Not Reportable Platelet Estimate Not Reportable Clumped Platelets Not Reportable Plt Clumps, EDTA Not Reportable Large Platelets Not Reportable Giant Platelets Not Reportable Platelet Satelliting Not Reportable Plt Morphology Comment Not Reportable RBC Morphology Not Reportable Dimorphic RBCs Not Reportable Polychromasia 1+ Hypochromasia Not Reportable Poikilocytosis Few Anisocytosis 1+ Microcytosis Not Reportable Macrocytosis Not Reportable Spherocytes Not Reportable Pappenheimer Bodies Not Reportable Sickle Cells Not Reportable Target Cells Not Reportable Tear Drop Cells Not Reportable Ovalocytes Not Reportable Helmet Cells Not Reportable Ebnavidez-[place] Bodies Not Reportable Atkins Rings Not Reportable [place] Cells Not Reportable Bite Cells Not Reportable Crenated Cell Not Reportable Elliptocytes Not Reportable Acanthocytes (Spur) Not Reportable Rouleaux Not Reportable Hemoglobin C Crystals Not Reportable Schistocytes Not Reportable Malaria parasites Not Reportable Dinesh Bodies Not Reportable Hem Pathologist Commnt No Sodium 131 L D Potassium 5.4 H Chloride 85.8 L Carbon Dioxide 20 L Anion Gap 31 BUN 86 H Creatinine 7.1 H Estimated GFR 8 BUN/Creatinine Ratio 12 Glucose 366 H POC Glucose 420 H Calcium 9.5 Total Bilirubin 0.50 AST 19 ALT 10 Alkaline Phosphatase 124 Total Protein 7.4 Albumin 2.4 L Albumin/Globulin Ratio 0.5 Amylase Lipase Random Vancomycin Complement C3 Complement C4 08/06/19 09:20 WBC RBC Hgb Hct MCV MCH MCHC RDW Plt Count Add Manual Diff Total Counted Seg Neuts % (Manual) Band Neutrophils % Lymphocytes % (Manual) Reactive Lymphs % (Man) Monocytes % (Manual) Eosinophils % (Manual) Basophils % (Manual) Metamyelocytes % Myelocytes % Promyelocytes % Blast Cells % Nucleated RBC % Seg Neutrophils # Man Band Neutrophils # Lymphocytes # (Manual) Abs React Lymphs (Man) Monocytes # (Manual) Eosinophils # (Manual) Basophils # (Manual) Metamyelocytes # Myelocytes # Promyelocytes # Blast Cells # WBC Morphology Hypersegmented Neuts Hyposegmented Neuts Hypogranular Neuts Smudge Cells Toxic Granulation Toxic Vacuolation Dohle Bodies Pelger-Huet Anomaly Rose Rods Platelet Estimate Clumped Platelets Plt Clumps, EDTA Large Platelets Giant Platelets Platelet Satelliting Plt Morphology Comment RBC Morphology Dimorphic RBCs Polychromasia Hypochromasia Poikilocytosis Anisocytosis Microcytosis Macrocytosis Spherocytes Pappenheimer Bodies Sickle Cells Target Cells Tear Drop Cells Ovalocytes Helmet Cells Benavidez-[place] Bodies Atkins Rings [place] Cells Bite Cells Crenated Cell Elliptocytes Acanthocytes (Spur) Rouleaux Hemoglobin C Crystals Schistocytes Malaria parasites Dinesh Bodies Hem Pathologist Commnt Sodium Potassium Chloride Carbon Dioxide Anion Gap BUN Creatinine Estimated GFR BUN/Creatinine Ratio Glucose POC Glucose Calcium Total Bilirubin AST ALT Alkaline Phosphatase Total Protein Albumin Albumin/Globulin Ratio Amylase 425 H Lipase 250 H Random Vancomycin Complement C3 Complement C4
--- NOTE | 2019-08-06 14:50 | Magnetic Resonance Report ---
MR abdomen MRCP without contrast INDICATION: pancreatitis, r/o anatomic anomaly. TECHNIQUE: Multiplanar, multisequence MR images were obtained. COMPARISON: CT abdomen 08/03/2019 FINDINGS: MRCP: Common bile duct is normal in caliber measuring 3.5 mm without common bile duct stone the pancr eatic duct within the pancreatic head appears unremarkable. The pancreatic duct within the body and t ail of pancreas is not seen secondary to the severe necrotizing pancreatitis.. Severe pancreatitis is seen within the body and tail of pancreas with pancreatic necrosis seen on recent contrast-enhanced CT. MR abdomen: Pancreatic necrosis is again seen within the body and tail of pancreas with large peripan creatic phlegmon/hyper intense T2 fluid collection near the tail of pancreas measuring 11.2 cm in lar gest AP diameter which did not enhance on the CT scan. Small amount of peripancreatic fluid is also s een within the inferior aspect of the pancreatic head. There is a moderate amount of susceptibility a rtifact characteristic for gas within the lesser sac, unchanged but not reported on prior study measu ring 2.5 cm. IMPRESSION: 1. Severe necrotizing pancreatitis with hypoperfusion involving greater than 50% of the pancreas part icularly within the body and tail with moderate amount of peripancreatic fluid and small amount of ga s in left or sac characteristic for necrotizing pancreatitis. I do not see a well organized fluid col lection that is drainable percutaneously or by cystgastrostomy. 2. Not mentioned on previous CT is mild focal pyelonephritis involving upper pole right kidney. The peripancreatic gas was not mentioned on the prior CT but the report did describe severe necrotizi ng pancreatitis. COMMUNICATION: Time of Communication: 1:44 PM central standard time 08/03/2019 Licensed Practitioner Receiving Report: Patient's ICU nurse Gladis Signer Name: Lorne Dempsey MD Signed: 08/06/2019 2:45 PM Workstation Name: [id number]
[2019-08-06] MEDS ORDERED: NACL 0.9% 100 ML IV PRN (15:13)
[2019-08-06] MEDS: PROCRIT IV PRN (19:02)
[2019-08-07] MEDS: NORMODYNE PO SCH ×3 (02:29→22:11)
[2019-08-07] MEDS: PREVACID SOLUTAB FEEDTUBE SCH ×3 (02:30→21:58)
[2019-08-07 05:16] LABS: Hematocrit 27.3 % (30.3-42.9); Hemoglobin 8.7 gm/dl (10.1-14.3); Mean Corpuscular HGB Conc 32 % (30-34); Mean Corpuscular Volume 83 fl (79-97); Red Blood Count 3.27 M/mm3 (3.65-5.03); Red Cell Distribution Width 18.7 % (13.2-15.2)
[2019-08-07 05:26] LABS: Platelet Count 217 K/mm3 (140-440)
[2019-08-07 05:36] LABS: Albumin 2.7 g/dL (3.9-5); Calcium 8.9 mg/dL (8.4-10.2)
[2019-08-07 06:18] LABS: Basophils % (Manual) 0 % (0.0-1.8); Eosinophils % (Manual) 0 % (0.0-4.3); Large Platelets 1+; Myelocytes # (Manual) 0.7 K/mm3; Total Cells Counted 100
[2019-08-07 06:19] LABS: Anisocytosis 1+; Platelet Estimate Consistent w Auto; Poikilocytosis 1+
[2019-08-07] MEDS: RENVELA PO SCH ×2 (08:42→17:08)
[2019-08-07] MEDS: MERREM/NS 1 GRAM/100 ML 1 GRAM/100 ML BAG IV SCH (10:00)
[2019-08-07] MEDS: KEPPRA 500 MG in D5W 100 ML IV SCH ×2 (10:00→21:58)
[2019-08-07] MEDS: CELLCEPT PO SCH (10:03)
[2019-08-07] MEDS: PLAQUENIL PO SCH (10:03)
[2019-08-07] MEDS: FOLVITE PO SCH (10:03)
[2019-08-07] MEDS: COZAAR PO SCH (10:04)
[2019-08-07] MEDS: ATARAX PO SCH (10:04)
[2019-08-07] MEDS: VITAMIN B-12 PO SCH (10:05)
[2019-08-07] MEDS: DELTASONE PO SCH (10:05)
--- NOTE | 2019-08-07 10:44 | Progress Note ---
Assessment and Plan 1. ESRD: Patient is known to our service. On maintenance hemodialysis three times a week, TTS schedule. 2. FEN: Hyperkalemia, K level is better. Monitor lytes. 3. Anemia: Epogen with HD. 4. New onset seizures: On Keppra. 5. Metabolic encephalopathy: Improving. 6. Sepsis. Vulvar abscess. Followed by ID. 7. Acute pancreatitis: Continue supportive care. Seen by GI. 8. History of lupus: On Cellcept, Plaquenil and Prednisone. Examination: General appearance: alert, appears stated age, not in distress HEENT: ATNC Respiratory: Clear to Ascultation Cardiology: regular, S1S2, no murmur Gastrointestinal: normoactive bowel sounds, no tenderness, not distended Integumentary: no rash Neurologic: alert, able to tell her name, able to move extremities Musculoskeletal: no edema Hemodialysis access: L arm AVF Subjective Date of service: 08/07/19 Principal diagnosis: anemia, dizziness Interval history: Patient was seen and examined at the bedside. Objective - Vital Signs Vital signs: Vital Signs - 12hr 08/06/19 08/07/19 08/07/19 23:21 02:29 06:21 Temperature 97.5 F L 97.2 F L Pulse Rate 100 H 100 H Respiratory 18 Rate Blood Pressure 115/77 115/77 110/63 O2 Sat by Pulse 93 Oximetry 08/07/19 10:03 Temperature Pulse Rate 94 H Respiratory Rate Blood Pressure 111/58 O2 Sat by Pulse Oximetry - Lab 08/07/19 04:50 08/07/19 04:50 Most recent lab results Calcium 8.9 mg/dL (8.4-10.2) 08/07/19 04:50 Magnesium 2.00 mg/dL (1.7-2.3) 07/30/19 23:32 Medications & Allergies - Medications Allergies/Adverse Reactions: Allergies lactose Adverse Reaction (Verified 07/29/19 08:16) Unknown Home Medications: Home Medications Medication Instructions Recorded Confirmed Last Taken Type Gabapentin 300 mg PO 3XW 11/14/18 07/26/19 07/25/19 History ALBUTEROL NEB's [Proventil] 2.5 mg IH QID PRN 07/26/19 07/26/19 07/25/19 History Amitriptyline [Elavil] 25 mg PO QHS 07/26/19 07/26/19 07/25/19 History Amitriptyline [Elavil] 25 mg PO QHS 07/26/19 07/26/19 07/25/19 History Cyanocobalamin (Vitamin B-12) 1,000 mcg PO QDAY 07/26/19 07/26/19 07/25/19 History [Vitamin B-12] Folic Acid [Folvite] 1 mg PO QDAY 07/26/19 07/26/19 07/25/19 History Hydroxychloroquine [Plaquenil] 200 mg PO QDAY 07/26/19 07/26/19 07/25/19 History Ibuprofen [Motrin] 800 mg PO Q8HR PRN 07/26/19 07/26/19 07/25/19 History Labetalol HCl [Labetalol 300mg TAB] 300 mg PO Q12H 07/26/19 07/26/19 07/25/19 History Losartan [Cozaar] 50 mg PO QDAY 07/26/19 07/26/19 07/25/19 History Mirtazapine 7.5 mg PO QDAY 07/26/19 07/26/19 07/25/19 History Mycophenolate [Cellcept] 500 mg PO QDAY 07/26/19 07/26/19 07/25/19 History Pantoprazole [Protonix] 40 mg PO BID 07/26/19 07/26/19 07/25/19 History Pregabalin [Lyrica] 25 mg PO QDAY 07/26/19 07/26/19 07/25/19 History Sevelamer HCl [Renagel] 800 mg PO BIDWM 07/26/19 07/26/19 07/25/19 History hydrOXYzine HCL [Atarax] 50 mg PO QDAY 07/26/19 07/26/19 07/25/19 History predniSONE [Deltasone] 20 mg PO QDAY 07/26/19 07/26/19 07/25/19 History Active Medications: Generic Name Dose Route Start Last Admin Trade Name Freq PRN Reason Stop Dose Admin Acetaminophen 650 mg 07/26/19 11:08 08/03/19 21:27 Tylenol PO 650 mg Q6H PRN Administration Pain, Mild (1-3) Albuterol 2.5 mg 07/26/19 15:39 Proventil IH QID PRN Wheezing Lipase/Protease/Amylase 1 each 07/31/19 08:26 Pancremarcella Diane 10,500 Unit FEEDTUBE PRN PRN For Clogged Feeding Tube Cyanocobalamin 1,000 mcg 07/27/19 10:00 08/07/19 10:05 Vitamin B-12 PO 1,000 mcg QDAY JOEL Administration Dextrose 25 ml 07/26/19 11:06 07/26/19 12:32 D50w (25gm) Syringe IV 25 ml PRN PRN Administration Hypoglycemia Epoetin Mitch 10,000 unit 07/26/19 10:10 08/06/19 19:02 Procrit IV 10,000 unit FAN PRN Administration hemodialysis Folic Acid 1 mg 07/27/19 10:00 08/07/19 10:03 Folvite PO 1 mg QDAY JOEL Administration Hydralazine HCl 10 mg 07/30/19 20:16 07/31/19 00:05 Apresoline IV 10 mg Q4HR PRN Administration Blood Pressure Hydroxychloroquine Sulfate 200 mg 07/27/19 10:00 08/07/19 10:03 Plaquenil PO 200 mg QDAY JOEL Administration Hydroxyzine HCl 50 mg 07/27/19 10:00 08/07/19 10:04 Atarax PO 50 mg QDAY JOEL Administration Levetiracetam 500 mg/ Dextrose 105 mls @ 400 mls/hr 07/30/19 12:00 08/07/19 10:00 IV 400 mls/hr BID JOEL Administration Sodium Chloride 100 mls @ 999 mls/hr 08/02/19 08:56 Nacl 0.9% IV FAN PRN Hypotension MEROPENEM/NS 1 GRAM/100 ML 1 gram in 100 mls @ 100 mls/hr 08/05/19 10:00 08/07/19 10:00 Merrem/Ns 1 Gram/100 Ml IV 100 mls/hr Q24HR JOEL Administration Protocol Sodium Chloride 100 mls @ 999 mls/hr 08/06/19 15:13 Nacl 0.9% IV FAN PRN Hypotension Labetalol HCl 300 mg 07/26/19 16:00 08/07/19 10:03 Normodyne PO 300 mg BID JEOL Administration Lansoprazole 30 mg 08/04/19 10:00 08/07/19 10:05 Prevacid Solutab FEEDTUBE 30 mg BID JOEL Administration Losartan Potassium 50 mg 07/27/19 10:00 08/07/19 10:04 Cozaar PO 50 mg QDAY JOEL Administration Morphine Sulfate 1 mg 07/29/19 15:49 08/06/19 11:32 Morphine IV 1 mg Q8H PRN Administration Pain, Moderate (4-6) Mycophenolate Mofetil 500 mg 07/27/19 10:00 08/07/19 10:03 Cellcept PO 500 mg QDAY JOEL Administration Ondansetron HCl 4 mg 07/29/19 23:31 08/06/19 11:32 Zofran IV 4 mg Q6H PRN Administration Nausea And Vomiting Oxycodone/Acetaminophen 1 tab 07/29/19 15:49 08/05/19 21:42 Percocet 5/325 PO 1 tab Q8H PRN Administration Pain, Moderate (4-6) Prednisone 20 mg 07/27/19 10:00 08/07/19 10:05 Deltasone PO 20 mg QDAY JOEL Administration Sevelamer Carbonate 800 mg 07/26/19 16:30 08/07/19 08:42 Renvela PO 800 mg 0730,1630 JOEL Administration Simple Syrup 15 ml 07/31/19 08:26 Simple Syrup FEEDTUBE PRN PRN Hypoglycemia Simple Syrup 30 ml 07/31/19 08:26 Simple Syrup FEEDTUBE PRN PRN Hypoglycemia Sodium Bicarbonate 325 mg 07/31/19 08:26 Sodium Bicarbonate FEEDTUBE PRN PRN For Clogged Feeding Tube
--- NOTE | 2019-08-07 11:38 | Progress Note ---
Assessment and Plan - Patient Problems (1) Pancreatitis Current Visit: Yes Status: Acute Qualifiers: Chronicity: acute Acute pancreatitis complication: unspecified Plan to address problem: By white count, patient appears to be steadily improving. We will order a new lipase for tomorrow. Even though by nursing reports, she appears to have tolerated a clear liquid diet, I'm very worried about starting a diet at this point. I strongly recommend that the diet not be advanced any time soon. Despite her stating that she has no abdominal pain, her exam would suggest that there is some discomfort. We also have the challenge that she cannot adequately communicate with us. When I tried to discuss abdominal issues with her, she was asking about her mother. The MRCP does not show any anatomic abnormality, but does support the severity of her pancreatitis. There is a suggestion that there is a small collection of gas which they now see on the CT as well. As this is unchanged, I would not recommend any additional intervention at this point. However, if she should start to spike fevers, have increasing pain, etc., that may be a reflection of this process worsening. That should prompt an immediate transfer request to a tertiary care center. Will follow along. Please call with questions. time=10min Subjective Date of service: 08/07/19 Patient Reports: Positive: no new complaints, bowel movement, other (denies abdominal pain, but does not remember that she had clear liquids. ). Negative: nausea, vomiting Objective Vital Signs - 12hr 08/07/19 08/07/19 08/07/19 02:29 06:21 10:03 Temperature 97.2 F L Pulse Rate 100 H 94 H Respiratory 18 Rate Blood Pressure 115/77 110/63 111/58 - General physical appearance no distress, no pain, other (communication is difficult) - Respiratory normal expansion, normal respiratory effort - Abdomen soft, not tender, bowel sounds hypoactive, distended, not masses, guarding, not rigid - Integumentary no rash, no growths, no abnormal pigmentation - Labs 08/07/19 04:50 08/07/19 04:50 Diabetes panel 08/07/19 Range/Units 04:50 Sodium 141 D (137-145) mmol/L Potassium 3.9 D (3.6-5.0) mmol/L Chloride 96.1 L (98-107) mmol/L Carbon Dioxide 25 (22-30) mmol/L BUN 43 H (7-17) mg/dL Creatinine 4.6 H (0.7-1.2) mg/dL Glucose 335 H (65-100) mg/dL Calcium 8.9 (8.4-10.2) mg/dL AST 15 (5-40) units/L ALT 8 (7-56) units/L Alkaline Phosphatase 109 (35-129) units/L Total Protein 7.0 (6.3-8.2) g/dL Albumin 2.7 L (3.9-5) g/dL Calcium panel 08/07/19 Range/Units 04:50 Calcium 8.9 (8.4-10.2) mg/dL Albumin 2.7 L (3.9-5) g/dL Pituitary panel 08/07/19 Range/Units 04:50 Sodium 141 D (137-145) mmol/L Potassium 3.9 D (3.6-5.0) mmol/L Chloride 96.1 L (98-107) mmol/L Carbon Dioxide 25 (22-30) mmol/L BUN 43 H (7-17) mg/dL Creatinine 4.6 H (0.7-1.2) mg/dL Glucose 335 H (65-100) mg/dL Calcium 8.9 (8.4-10.2) mg/dL Adrenal panel 08/07/19 Range/Units 04:50 Sodium 141 D (137-145) mmol/L Potassium 3.9 D (3.6-5.0) mmol/L Chloride 96.1 L (98-107) mmol/L Carbon Dioxide 25 (22-30) mmol/L BUN 43 H (7-17) mg/dL Creatinine 4.6 H (0.7-1.2) mg/dL Glucose 335 H (65-100) mg/dL Calcium 8.9 (8.4-10.2) mg/dL Total Bilirubin 0.40 (0.1-1.2) mg/dL AST 15 (5-40) units/L ALT 8 (7-56) units/L Alkaline Phosphatase 109 (35-129) units/L Total Protein 7.0 (6.3-8.2) g/dL Albumin 2.7 L (3.9-5) g/dL
--- NOTE | 2019-08-07 13:14 | Progress Note ---
Assessment and Plan Sepsis Acute sepsis - leukocytosis with leukomoid reaction, some better 52-->47K--37K-34K. Possible source necrotizing pancreatitis +/- right labia abscess +/- less likely sinusitis Presumedly Complicated Pancreatitis: improving; ? CT with generalized edema is noted throughout the pancreas with surrounding moderate inflammation. No distin ct pancreatic lesion is identified. Lipase 241. Repeat contrasted CT with severely abnormal pancreas with multiple focal areas of nonperfusion in the distal pancreas. Necrotizing pancreatitis could be considered. There is moderate to large fluid throughout the base of the mesentery and left abdomen which is grossly unchanged. For MRCP today for better visualization of pancreas. Right labia abscess v/s necrotizing fascitis: Staph vs polymicrobial. Right labia drainage 08/02/2019 +whittaker-sensitive E coli and now Enterococcus. HEDIS SPECIALIST on board. Procalcitonin 22 (high/unclear significance is the setting of ESRD). Repeat Contrasted CT did not include perineum Wound infection right buttocks Escherichia coli sepsis Continue cefepime --New onset seizures : On Keppra, Seizure precautions, Follow EEG, CT head negative for acute abnormality MRI brain no acute abnormalities . Neurology following -No evidence of Meningitis on LP lab review --Severe Metabolic encephalopathy; multifactorial Sepsis, seizures, acute pancreatitis , ESRD. Bun much improved following dialysis --Acute pancreatitis on CT/elevated lipase Continue supportive care, GI consulted SURGERY consult appreciated MRCP ---Severe pancreatitis --Episode of Coffee-ground emesis; closely monitor H&H GI consult. Given additional 2 units PRBC for a total of 4 units Resolved --History of lupus; resume home medications Possible flareup, monitor --Sepsis; Escherichia coli wound infection IV antibiotics, supportive care --Hypotension; Improved --Hyperkalemia; IV Calcium gluconate given secondary to end-stage renal disease --End-stage renal disease; on hemodialysis HD per schedule, nephrology --Moderate malnutrition/hypoalbuminemia; Dobbhoff placement Tube feeding per protocol --DVT prophylaxis; Lovenox renal dose Plan of care reviewed with the patient's nurse Patient transferred to 3 rd floor yesterday Subjective Date of service: 08/07/19 Principal diagnosis: anemia, dizziness Interval history: 29-year-old -Greek female patient with significant past medical history of end-stage renal disease on hemodialysis lupus chronic pain syndrome history of MRSA infection in the past was admitted through emergency room with bilateral lower extremity cramping burning sensation hyperkalemia fluid overload fevers, treated empirically with antibiotics received hemodialysis per schedule, Wound cultures positive for Escherichia coli on appropriate antibiotics Patient developed new onset seizures on 07/30/2019, received Keppra and Ativan Evaluated by neurology, CT head negative, More alert and communicative today,MRCP--Severe pancreatitis Objective - Constitutional Vitals: Vital Signs - 12hr 08/07/19 08/07/19 08/07/19 02:29 06:21 10:00 Temperature 97.2 F L Pulse Rate 100 H Respiratory 18 Rate Blood Pressure 115/77 110/63 O2 Sat by Pulse 96 Oximetry 08/07/19 08/07/19 10:03 11:59 Temperature 97.0 F L Pulse Rate 94 H 91 H Respiratory 18 Rate Blood Pressure 111/58 104/60 O2 Sat by Pulse 99 Oximetry General appearance: Present: no acute distress, well-nourished - EENT Eyes: PERRL, EOM intact ENT: hearing intact, clear oral mucosa Ears: bilateral: normal - Neck Neck: supple, normal ROM - Respiratory Respiratory effort: normal Respiratory: bilateral: CTA - Breasts Breasts: normal - Cardiovascular Rhythm: regular Heart Sounds: Present: S1 & S2. Absent: gallop, rub Extremities: pulses intact, No edema, normal color, Full ROM - Gastrointestinal General gastrointestinal: Present: soft, tender, non-distended, normal bowel sounds Localized gastrointestinal: tender: diffuse, guarding: diffuse - Genitourinary Female genitourinary: normal - Integumentary Integumentary: clear, warm, dry - Musculoskeletal Musculoskeletal: 1, strength equal bilaterally - Neurologic Neurologic: moves all extremities - Psychiatric Psychiatric: memory intact, appropriate mood/affect, intact judgment & insight - Allied health notes Allied health notes reviewed: nursing, case management - Labs CBC & Chem 7: 08/07/19 04:50 08/08/19 05:14 Labs: Abnormal lab results 08/07/19 08/07/19 Range/Units 04:50 04:50 WBC 34.4 H (4.5-11.0) K/mm3 RBC 3.27 L (3.65-5.03) M/mm3 Hgb 8.7 L (10.1-14.3) gm/dl Hct 27.3 L (30.3-42.9) % MCH 27 L (28-32) pg RDW 18.7 H (13.2-15.2) % Seg Neuts % (Manual) 89.0 H (40.0-70.0) % Lymphocytes % (Manual) 2.0 L (13.4-35.0) % Nucleated RBC % 1.0 H (0.0-0.9) % Seg Neutrophils # Man 30.6 H (1.8-7.7) K/mm3 Lymphocytes # (Manual) 0.7 L (1.2-5.4) K/mm3 Monocytes # (Manual) 1.0 H (0.0-0.8) K/mm3 Chloride 96.1 L (98-107) mmol/L BUN 43 H (7-17) mg/dL Creatinine 4.6 H (0.7-1.2) mg/dL Glucose 335 H (65-100) mg/dL Albumin 2.7 L (3.9-5) g/dL
[2019-08-08 05:58] LABS: BUN/Creatinine Ratio 10; Blood Urea Nitrogen 63 mg/dL (7-17); Calcium 8.9 mg/dL (8.4-10.2); Hemolysis Index 12
[2019-08-08] MEDS: RENVELA PO SCH ×2 (08:00→17:59)
--- NOTE | 2019-08-08 09:01 | Gastroenterology Progress Note ---
Assessment and Plan GI: pancreatitis w/ signs necrotizing disease on most recent ct scan - findings consistent with severe pancreatitis - surgery input noted - continue conservative management at this time - agree if fever, or other more significant changes to transfer to [facility] - no changes at this time, will follow Subjective Date of service: 08/07/19 Principal diagnosis: anemia, dizziness Interval history: - pt reports mild improvement in symptoms today Objective - Constitutional Vitals: Temp Pulse Resp BP Pulse Ox 98.3 F 86 20 146/98 96 08/08/19 06:03 08/07/19 23:18 08/08/19 06:03 08/08/19 06:03 08/08/19 00:00 - EENT Eyes: PERRL - Respiratory Respiratory: bilateral: rhonchi - Cardiovascular Rhythm: regular Heart Sounds: Present: S1 & S2 - Gastrointestinal General gastrointestinal: Present: soft, non-tender, non-distended - Labs CBC & Chem 7: 08/07/19 04:50 08/08/19 05:14 Labs: Laboratory Results - last 24 hr 08/08/19 08/08/19 05:14 05:14 Sodium 127 L D Potassium 4.9 D Chloride 84.7 L Carbon Dioxide 20 L Anion Gap 27 BUN 63 H Creatinine 6.5 H Estimated GFR 9 BUN/Creatinine Ratio 10 Calcium 8.9 Lipase 282 H
[2019-08-08] MEDS: MERREM/NS 1 GRAM/100 ML 1 GRAM/100 ML BAG IV SCH (09:42)
[2019-08-08] MEDS: ATARAX PO SCH (09:43)
[2019-08-08] MEDS: PREVACID SOLUTAB FEEDTUBE SCH ×2 (09:43→21:21)
[2019-08-08] MEDS: NORMODYNE PO SCH ×2 (09:43→21:27)
[2019-08-08] MEDS: VITAMIN B-12 PO SCH (09:43)
[2019-08-08] MEDS: FOLVITE PO SCH (09:43)
[2019-08-08 09:47] LABS: Hematocrit 28.6 % (30.3-42.9); Hemoglobin 8.8 gm/dl (10.1-14.3); Mean Corpuscular HGB Conc 31 % (30-34); Mean Corpuscular Volume 87 fl (79-97); Red Cell Distribution Width 19.5 % (13.2-15.2)
[2019-08-08] MEDS: COZAAR PO SCH (09:48)
[2019-08-08] MEDS: PLAQUENIL PO SCH (09:50)
[2019-08-08] MEDS: CELLCEPT PO SCH (09:50)
[2019-08-08] MEDS: DELTASONE PO SCH (09:50)
--- NOTE | 2019-08-08 10:14 | Progress Note ---
Assessment and Plan 1. ESRD: Patient is known to our service. On maintenance hemodialysis three times a week, TTS schedule. 2. FEN: Hyperkalemia, K level is better. Pseudohyponatremia. monitor. Monitor lytes. 3. Anemia: Epogen with HD. 4. New onset seizures: On Keppra. 5. Metabolic encephalopathy: Improving. 6. Sepsis. Vulvar abscess. Followed by ID. 7. Acute pancreatitis: Continue supportive care. Seen by GI. 8. History of lupus: On Cellcept, Plaquenil and Prednisone. Examination: General appearance: alert, appears stated age, not in distress HEENT: ATNC Respiratory: Clear to Ascultation Cardiology: regular, S1S2, no murmur Gastrointestinal: normoactive bowel sounds, no tenderness, not distended Integumentary: no rash Neurologic: alert, able to tell her name, able to move extremities, some confusion noted Musculoskeletal: no edema Hemodialysis access: L arm AVF Subjective Date of service: 08/08/19 Principal diagnosis: anemia, dizziness Interval history: Patient was seen and examined at the bedside. Objective - Vital Signs Vital signs: Vital Signs - 12hr 08/07/19 08/08/19 08/08/19 23:18 00:00 06:03 Temperature 96.9 F L 98.3 F Pulse Rate 86 Respiratory 16 17 20 Rate Blood Pressure 117/71 146/98 O2 Sat by Pulse 90 96 Oximetry 08/08/19 08/08/19 09:43 09:48 Temperature Pulse Rate 84 84 Respiratory Rate Blood Pressure 129/93 129/93 O2 Sat by Pulse Oximetry - Lab 08/08/19 09:27 08/08/19 09:27 Most recent lab results Calcium 8.9 mg/dL (8.4-10.2) 08/08/19 05:14 Magnesium 2.00 mg/dL (1.7-2.3) 07/30/19 23:32 Medications & Allergies - Medications Allergies/Adverse Reactions: Allergies lactose Adverse Reaction (Verified 07/29/19 08:16) Unknown Home Medications: Home Medications Medication Instructions Recorded Confirmed Last Taken Type Gabapentin 300 mg PO 3XW 11/14/18 07/26/19 07/25/19 History ALBUTEROL NEB's [Proventil] 2.5 mg IH QID PRN 07/26/19 07/26/19 07/25/19 History Amitriptyline [Elavil] 25 mg PO QHS 07/26/19 07/26/19 07/25/19 History Amitriptyline [Elavil] 25 mg PO QHS 07/26/19 07/26/19 07/25/19 History Cyanocobalamin (Vitamin B-12) 1,000 mcg PO QDAY 07/26/19 07/26/19 07/25/19 History [Vitamin B-12] Folic Acid [Folvite] 1 mg PO QDAY 07/26/19 07/26/19 07/25/19 History Hydroxychloroquine [Plaquenil] 200 mg PO QDAY 07/26/19 07/26/19 07/25/19 History Ibuprofen [Motrin] 800 mg PO Q8HR PRN 07/26/19 07/26/19 07/25/19 History Labetalol HCl [Labetalol 300mg TAB] 300 mg PO Q12H 07/26/19 07/26/19 07/25/19 History Losartan [Cozaar] 50 mg PO QDAY 07/26/19 07/26/19 07/25/19 History Mirtazapine 7.5 mg PO QDAY 07/26/19 07/26/19 07/25/19 History Mycophenolate [Cellcept] 500 mg PO QDAY 07/26/19 07/26/19 07/25/19 History Pantoprazole [Protonix] 40 mg PO BID 07/26/19 07/26/19 07/25/19 History Pregabalin [Lyrica] 25 mg PO QDAY 07/26/19 07/26/19 07/25/19 History Sevelamer HCl [Renagel] 800 mg PO BIDWM 07/26/19 07/26/19 07/25/19 History hydrOXYzine HCL [Atarax] 50 mg PO QDAY 07/26/19 07/26/19 07/25/19 History predniSONE [Deltasone] 20 mg PO QDAY 07/26/19 07/26/19 07/25/19 History Active Medications: Generic Name Dose Route Start Last Admin Trade Name Freq PRN Reason Stop Dose Admin Acetaminophen 650 mg 07/26/19 11:08 08/03/19 21:27 Tylenol PO 650 mg Q6H PRN Administration Pain, Mild (1-3) Albuterol 2.5 mg 07/26/19 15:39 Proventil IH QID PRN Wheezing Lipase/Protease/Amylase 1 each 07/31/19 08:26 Pancremarcella Diane 10,500 Unit FEEDTUBE PRN PRN For Clogged Feeding Tube Cyanocobalamin 1,000 mcg 07/27/19 10:00 08/08/19 09:43 Vitamin B-12 PO 1,000 mcg QDAY JOEL Administration Dextrose 25 ml 07/26/19 11:06 07/26/19 12:32 D50w (25gm) Syringe IV 25 ml PRN PRN Administration Hypoglycemia Epoetin Mitch 10,000 unit 07/26/19 10:10 08/06/19 19:02 Procrit IV 10,000 unit FAN PRN Administration hemodialysis Folic Acid 1 mg 07/27/19 10:00 08/08/19 09:43 Folvite PO 1 mg QDAY JOEL Administration Hydralazine HCl 10 mg 07/30/19 20:16 07/31/19 00:05 Apresoline IV 10 mg Q4HR PRN Administration Blood Pressure Hydroxychloroquine Sulfate 200 mg 07/27/19 10:00 08/08/19 09:50 Plaquenil PO 200 mg QDAY JOEL Administration Hydroxyzine HCl 50 mg 07/27/19 10:00 08/08/19 09:43 Atarax PO 50 mg QDAY JOEL Administration Levetiracetam 500 mg/ Dextrose 105 mls @ 400 mls/hr 07/30/19 12:00 08/07/19 21:58 IV 400 mls/hr BID JOEL Administration Sodium Chloride 100 mls @ 999 mls/hr 08/02/19 08:56 Nacl 0.9% IV FAN PRN Hypotension MEROPENEM/NS 1 GRAM/100 ML 1 gram in 100 mls @ 100 mls/hr 08/05/19 10:00 08/08/19 09:42 Merrem/Ns 1 Gram/100 Ml IV 100 mls/hr Q24HR JOEL Administration Protocol Sodium Chloride 100 mls @ 999 mls/hr 08/06/19 15:13 Nacl 0.9% IV FAN PRN Hypotension Labetalol HCl 300 mg 07/26/19 16:00 08/08/19 09:43 Normodyne PO 300 mg BID JOEL Administration Lansoprazole 30 mg 08/04/19 10:00 08/08/19 09:43 Prevacid Solutab FEEDTUBE 30 mg BID JOEL Administration Losartan Potassium 50 mg 07/27/19 10:00 08/08/19 09:48 Cozaar PO 50 mg QDAY JOEL Administration Morphine Sulfate 1 mg 07/29/19 15:49 08/06/19 11:32 Morphine IV 1 mg Q8H PRN Administration Pain, Moderate (4-6) Mycophenolate Mofetil 500 mg 07/27/19 10:00 08/08/19 09:50 Cellcept PO 500 mg QDAY JOEL Administration Ondansetron HCl 4 mg 07/29/19 23:31 08/06/19 11:32 Zofran IV 4 mg Q6H PRN Administration Nausea And Vomiting Oxycodone/Acetaminophen 1 tab 07/29/19 15:49 08/05/19 21:42 Percocet 5/325 PO 1 tab Q8H PRN Administration Pain, Moderate (4-6) Prednisone 20 mg 07/27/19 10:00 08/08/19 09:50 Deltasone PO 20 mg QDAY JOEL Administration Sevelamer Carbonate 800 mg 07/26/19 16:30 08/08/19 08:00 Renvela PO 800 mg 0730,1630 JOEL Administration Simple Syrup 15 ml 07/31/19 08:26 Simple Syrup FEEDTUBE PRN PRN Hypoglycemia Simple Syrup 30 ml 07/31/19 08:26 Simple Syrup FEEDTUBE PRN PRN Hypoglycemia Sodium Bicarbonate 325 mg 07/31/19 08:26 Sodium Bicarbonate FEEDTUBE PRN PRN For Clogged Feeding Tube
--- NOTE | 2019-08-08 10:17 | Progress Note ---
Assessment and Plan Cultures: Wound culture - E coli, whittaker sensitive Blood culture 07/26/2019 no growth today CSF 08/02/2019 no organisms, no leukocytes Right labia drainage 08/02/2019 +E coli pansens, Enterococcus A/P: 49 yo F PMHx ESRD on HD, lupus, previous MRSA infection now with wound infection, abdominal pain and seizures 1. Acute sepsis - leukocytosis with leukomoid reaction, some better 52-->47K. Possible source necrotizing pancreatitis +/- right labia abscess +/- less likely sinusitis 2. Presumedly Complicated Pancreatitis: improving; ? CT with generalized edema is noted throughout the pancreas with surrounding moderate inflammation. No distinct pancreatic lesion is identified. Lipase 241. Repeat contrasted CT with severely abnormal pancreas with multiple focal areas of nonperfusion in the distal pancreas. Necrotizing pancreatitis could be considered. There is moderate to large fluid throughout the base of the mesentery and left abdomen which is grossly unchanged. 3. Right labia abscess v/s necrotizing fascitis: Staph vs polymicrobial. Right labia drainage 08/02/2019 +whittaker-sensitive E coli and now Enterococcus. 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 Procalcitonin 22 (high/unclear significance is the setting of ESRD). Repeat Contrasted CT did not include perineum 4. Wound infection right buttocks 5. Lupus - on plaquenil, cellcept and prednisone ? flare 6. New onset Seizures - ?? unclear etiology 7. AMS? received ativan for agitation overnight ? due to sepsis ?lupus. CT head with left maxillary sinusitis. Since patient is immunocompromised will close monitor for OI. S/p LP CSF with no evidence of meningitis. WBC=0, CSF glucose and protein pending. 8. Severe anemia ? plaquenil ? GI bleed 9. Immunocompromised host 10. ESRD on HD - renally dose antibiotics Recs: - continue meropenem IV renally adjusted for necrotizing pancreatitis and labia infection - should cover E coli and E faecalis (along as it is not VRE) - monitor mentation which is better - monitor leukocytosis which some better Will follow. Almas Merino MD [facility] ([facility]) M: [phone] O: [phone] F: [phone] Subjective Date of service: 08/08/19 Principal diagnosis: anemia, dizziness Interval history: Afebrile, improving white count (though still elevated). No new issues. Objective - Exam Narrative Exam: General appearance: alert in NAD Eyes: anicteric sclerae, clear conjunctivae HENT: Atraumatic; oropharynx clear dry mucosa +NGT Lungs: CTA CV: RRR Abdomen: Soft, tenderness diffusely Extremities: no edema, no cyanosis Skin: No rash. +multiple scattered old scars and +right hip superficial wound Gen: +right labia swelling with small opening not draining purulence Psych: somnolent Neuro: somnolent - Constitutional Vitals: Vital Signs Temp Pulse Resp BP Pulse Ox 98.3 F 84 20 129/93 96 08/08/19 06:03 08/08/19 09:48 08/08/19 06:03 08/08/19 09:48 08/08/19 00:00 Temperature -Last 24 Hours Temperature 98.3 F Temperature 96.9 F Temperature 97.2 F Temperature 97.0 F - Labs CBC & Chem 7: 08/08/19 09:27 08/08/19 09:27 Labs: Abnormal lab results 08/08/19 08/08/19 08/08/19 Range/Units 05:14 05:14 09:27 WBC 23.5 H (4.5-11.0) K/mm3 RBC 3.30 L (3.65-5.03) M/mm3 Hgb 8.8 L (10.1-14.3) gm/dl Hct 28.6 L (30.3-42.9) % MCH 27 L (28-32) pg RDW 19.5 H (13.2-15.2) % Sodium 127 L D (137-145) mmol/L Chloride 84.7 L (98-107) mmol/L Carbon Dioxide 20 L (22-30) mmol/L BUN 63 H (7-17) mg/dL Creatinine 6.5 H (0.7-1.2) mg/dL Lipase 282 H (13-60) units/L
[2019-08-08] MEDS: KEPPRA 500 MG in D5W 100 ML IV SCH ×2 (10:24→23:03)
[2019-08-08 11:19] LABS: Alanine Aminotransferase 7 units/L (7-56); Albumin 2.6 g/dL (3.9-5); BUN/Creatinine Ratio 10; Blood Urea Nitrogen 67 mg/dL (7-17); Calcium 9.1 mg/dL (8.4-10.2); Hemolysis Index 9
--- NOTE | 2019-08-08 11:21 | Progress Note ---
Assessment and Plan Assessment and plan: 29-year-old -[place] female patient with significant past medical history of end-stage renal disease on hemodialysis lupus chronic pain syndrome history of MRSA infection in the past was admitted through emergency room with bilateral lower extremity cramping burning sensation hyperkalemia fluid overload fevers, treated empirically with antibiotics received hemodialysis per schedule, Wound cultures positive for Escherichia coli on appropriate antibiotics Patient developed new onset seizures on 07/30/2019, received Keppra and Ativan Evaluated by neurology, CT head negative, patient remained Lethargic noncommunicative since first episode of seizure ,MRI done today was negative for acute abnormalities, consulted second neurologist For second opinion And also has Persistent leukocytosis, ID evaluated, ordered C. difficile. Lumbar puncture done * Transfuse 2 unit of PRBC with dialysis * CT abdomen and pelvis reviewed, concerning for severe pancreatitis, narcotizing * tissue could not be excluded * Surgery consulted to evaluate narcotizing pancreatitis * Undergoing HD today Cultures: Wound culture - E coli, whittaker sensitive Blood culture 07/26/2019 no growth today CSF 08/02/2019 no organisms, no leukocytes Right labia drainage 08/02/2019 +E coli pansens, Enterococcus Hyponatremia -Recheck Labs --New onset seizures : On Keppra, Seizure precautions, Follow EEG, CT head negative for acute abnormality MRI brain no acute abnormalities . Neurology following -No evidence of Meningitis on LP lab review --Severe Metabolic encephalopathy; multifactorial Right labia abscess v/s necrotizing fascitis: Staph vs polymicrobial. Right labia drainage 08/02/2019 +whittaker-sensitive E coli and now Enterococcus. 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 Procalcitonin 22 (high/unclear significance is the setting of ESRD). Repeat Contrasted CT did not include perineum Sepsis, seizures, acute pancreatitis , ESRD. Bun much improved following dialysis --Persistent leukocytosis; Escherichia coli sepsis Continue cefepime ?Reactive vs from acute pancreatitis Improving --Acute pancreatitis on CT/elevated lipase Continue supportive care, GI consulted Surgery INPUT NOTED, Will consider Transfer to tertiary institution --Episode of Coffee-ground emesis; closely monitor H&H GI consult and input noted ?Plaquinel input PRBC for a total of 4 units --History of lupus; resume home medications Possible flareup, monitor Patient on Plaquinel should cover E coli and E faecalis (along as it is not VRE) --Sepsis; Escherichia coli wound infection IV antibiotics, supportive care Continue Meropenem IV --Hypotension; If no improvement, consider vasopressors and transferred to ICU --Hyperkalemia; resolved secondary to end-stage renal disease --End-stage renal disease; on hemodialysis HD per schedule, nephrology --Moderate malnutrition/hypoalbuminemia; Dobbhoff placement Tube feeding per protocol --DVT prophylaxis; Lovenox renal dose Plan of care reviewed with the patient's nurse D/W Family members patient's sister/next of kin Mariya Painting at [phone] UPDATED Disposition; patient is critically ill, follow multiple systems development consultant's Evaluations and recommendations History Interval history: Patient seen and examined, more awake today and following commands, Sitting up, tolerating clear liquids, not advancing at this time per Surgery recommendation. Hospitalist Physical - Physical exam Narrative exam: General appearance: Present: well-nourished, obese, following SOME commands, - EENT Eyes: Present: PERRL, EOM intact - Neck Neck: Present: supple, normal ROM - Respiratory Respiratory effort: normal Respiratory: bilateral: diminished, rales, negative: rhonchi, wheezing - Cardiovascular Rhythm: regular Heart Sounds: Present: S1 & S2 - Extremities Extremities: no ischemia, No edema - Abdominal General gastrointestinal: soft, NON TENDER , non-distended, normal bowel sounds - Integumentary Integumentary: Present:excouration in the forhead, perianal dressing noted warm - Psychiatric Psychiatric: other FLAT AFFECT - Neurologic Neurologic: FOLLOWING SOME COMMANDS - Constitutional Vitals: Temp Pulse Resp BP Pulse Ox 98.3 F 84 20 129/93 96 08/08/19 06:03 08/08/19 09:48 08/08/19 06:03 08/08/19 09:48 08/08/19 00:00 General appearance: Present: no acute distress, well-nourished Results - Labs CBC & Chem 7: 08/08/19 09:27 08/08/19 05:14 Labs: Laboratory Last Values WBC 23.5 K/mm3 (4.5-11.0) H 08/08/19 09:27 RBC 3.30 M/mm3 (3.65-5.03) L 08/08/19 09:27 Hgb 8.8 gm/dl (10.1-14.3) L 08/08/19 09:27 Hct 28.6 % (30.3-42.9) L 08/08/19 09:27 MCV 87 fl (79-97) 08/08/19 09:27 MCH 27 pg (28-32) L 08/08/19 09:27 MCHC 31 % (30-34) 08/08/19 09:27 RDW 19.5 % (13.2-15.2) H 08/08/19 09:27 Plt Count 217 K/mm3 (140-440) 08/07/19 04:50 Lymph # 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 08/02/19 09:03 Add Manual Diff Complete 08/07/19 04:50 Total Counted 100 08/07/19 04:50 Seg Neuts % (Manual) 89.0 % (40.0-70.0) H 08/07/19 04:50 Band Neutrophils % 0 % 08/07/19 04:50 Lymphocytes % (Manual) 2.0 % (13.4-35.0) L 08/07/19 04:50 Reactive Lymphs % (Man) 0 % 08/07/19 04:50 Monocytes % (Manual) 3.0 % (0.0-7.3) 08/07/19 04:50 Eosinophils % (Manual) 0 % (0.0-4.3) 08/07/19 04:50 Basophils % (Manual) 0 % (0.0-1.8) 08/07/19 04:50 Metamyelocytes % 4.0 % 08/07/19 04:50 Myelocytes % 2.0 % 08/07/19 04:50 Promyelocytes % 0 % 08/07/19 04:50 Blast Cells % 0 % 08/07/19 04:50 Nucleated RBC % 1.0 % (0.0-0.9) H 08/07/19 04:50 Seg Neutrophils # Man 30.6 K/mm3 (1.8-7.7) H 08/07/19 04:50 Band Neutrophils # 0.0 K/mm3 08/07/19 04:50 Lymphocytes # (Manual) 0.7 K/mm3 (1.2-5.4) L 08/07/19 04:50 Abs React Lymphs (Man) 0.0 K/mm3 08/07/19 04:50 Monocytes # (Manual) 1.0 K/mm3 (0.0-0.8) H 08/07/19 04:50 Eosinophils # (Manual) 0.0 K/mm3 (0.0-0.4) 08/07/19 04:50 Basophils # (Manual) 0.0 K/mm3 (0.0-0.1) 08/07/19 04:50 Metamyelocytes # 1.4 K/mm3 08/07/19 04:50 Myelocytes # 0.7 K/mm3 08/07/19 04:50 Promyelocytes # 0.0 K/mm3 08/07/19 04:50 Blast Cells # 0.0 K/mm3 08/07/19 04:50 Pathologist Review 08/02/19 09:03 WBC Morphology Not Reportable 08/07/19 04:50 Hypersegmented Neuts Not Reportable 08/07/19 04:50 Hyposegmented Neuts Not Reportable 08/07/19 04:50 Hypogranular Neuts Not Reportable 08/07/19 04:50 Smudge Cells Not Reportable 08/07/19 04:50 Toxic Granulation Not Reportable 08/07/19 04:50 Toxic Vacuolation Not Reportable 08/07/19 04:50 Dohle Bodies Not Reportable 08/07/19 04:50 Pelger-Huet Anomaly Not Reportable 08/07/19 04:50 Rose Rods Not Reportable 08/07/19 04:50 Platelet Estimate Consistent w auto 08/07/19 04:50 Clumped Platelets Not Reportable 08/07/19 04:50 Plt Clumps, EDTA Not Reportable 08/07/19 04:50 Large Platelets 1+ 08/07/19 04:50 Giant Platelets Not Reportable 08/07/19 04:50 Platelet Satelliting Not Reportable 08/07/19 04:50 Plt Morphology Comment Not Reportable 08/07/19 04:50 RBC Morphology Not Reportable 08/07/19 04:50 Dimorphic RBCs Not Reportable 08/07/19 04:50 Polychromasia Not Reportable 08/07/19 04:50 Hypochromasia Not Reportable 08/07/19 04:50 Poikilocytosis 1+ 08/07/19 04:50 Anisocytosis 1+ 08/07/19 04:50 Microcytosis Not Reportable 08/07/19 04:50 Macrocytosis Not Reportable 08/07/19 04:50 Spherocytes Not Reportable 08/07/19 04:50 Pappenheimer Bodies Not Reportable 08/07/19 04:50 Sickle Cells Not Reportable 08/07/19 04:50 Target Cells Not Reportable 08/07/19 04:50 Tear Drop Cells Not Reportable 08/07/19 04:50 Ovalocytes Not Reportable 08/07/19 04:50 Helmet Cells Not Reportable 08/07/19 04:50 Benavidez-Concow Bodies Not Reportable 08/07/19 04:50 [place] Rings Not Reportable 08/07/19 04:50 Maynard Cells Not Reportable 08/07/19 04:50 Bite Cells Not Reportable 08/07/19 04:50 Crenated Cell Not Reportable 08/07/19 04:50 Elliptocytes Not Reportable 08/07/19 04:50 Acanthocytes (Spur) Not Reportable 08/07/19 04:50 Rouleaux Not Reportable 08/07/19 04:50 Hemoglobin C Crystals Not Reportable 08/07/19 04:50 Schistocytes Not Reportable 08/07/19 04:50 Malaria parasites Not Reportable 08/07/19 04:50 ESR 78 mm/Hr (0-20) 07/26/19 05:25 Dinesh Bodies Not Reportable 08/07/19 04:50 Hem Pathologist Commnt No 08/07/19 04:50 PT 16.7 Sec. (12.2-14.9) H 07/26/19 06:31 INR 1.39 (0.87-1.13) H 07/26/19 06:31 APTT 41.1 Sec. (24.2-36.6) H 07/26/19 06:31 Sodium 127 mmol/L (137-145) L D 08/08/19 05:14 Potassium 4.9 mmol/L (3.6-5.0) D 08/08/19 05:14 Chloride 84.7 mmol/L (98-107) L 08/08/19 05:14 Carbon Dioxide 20 mmol/L (22-30) L 08/08/19 05:14 Anion Gap 27 mmol/L 08/08/19 05:14 BUN 63 mg/dL (7-17) H 08/08/19 05:14 Creatinine 6.5 mg/dL (0.7-1.2) H 08/08/19 05:14 Estimated GFR 9 ml/min 08/08/19 05:14 BUN/Creatinine Ratio 10 % 08/08/19 05:14 Glucose 335 mg/dL (65-100) H 08/07/19 04:50 POC Glucose 420 (70-105) H 08/06/19 07:39 Lactic Acid 1.40 mmol/L (0.7-2.0) 08/02/19 15:24 Calcium 8.9 mg/dL (8.4-10.2) 08/08/19 05:14 Magnesium 2.00 mg/dL (1.7-2.3) 07/30/19 23:32 Iron 58 ug/dL (37-170) 08/03/19 04:15 TIBC 150 mcg/dL (250-450) L 08/03/19 04:15 Ferritin 5729.0 ng/mL (13.0-400.0) H 08/03/19 04:15 Total Bilirubin 0.40 mg/dL (0.1-1.2) 08/07/19 04:50 Direct Bilirubin < 0.2 mg/dL (0-0.2) 07/26/19 06:31 Indirect Bilirubin 0.1 mg/dL 07/26/19 06:31 AST 15 units/L (5-40) 08/07/19 04:50 ALT 8 units/L (7-56) 08/07/19 04:50 Alkaline Phosphatase 109 units/L (35-129) 08/07/19 04:50 Total Creatine Kinase 43 units/L (30-135) 07/26/19 05:25 Troponin T 0.072 ng/mL (0.00-0.029) H 07/26/19 06:31 C-Reactive Protein 40.30 mg/dL (0.00-1.30) H 08/03/19 10:23 NT-Pro-B Natriuret Pep 64987 pg/mL (0-450) H 07/26/19 06:31 Total Protein 7.0 g/dL (6.3-8.2) 08/07/19 04:50 Albumin 2.7 g/dL (3.9-5) L 08/07/19 04:50 Albumin/Globulin Ratio 0.6 % 08/07/19 04:50 Triglycerides 261 mg/dL (2-149) H 08/03/19 04:15 Cholesterol 91 mg/dL (50-199) 07/26/19 06:31 LDL Cholesterol Direct 30 mg/dL (50-130) L 07/26/19 06:31 HDL Cholesterol 25 mg/dL (40-59) L 07/26/19 06:31 Cholesterol/HDL Ratio 3.64 % 07/26/19 06:31 Amylase 425 units/L (27-131) H 08/06/19 09:20 Lipase 282 units/L (13-60) H 08/08/19 05:14 Procalcitonin 22.18 ng/mL (<0.15) 08/02/19 16:38 HCG, Qual Negative (Negative) 07/30/19 02:40 HCG, Quant < 2 mIU/mL (0-4) 07/26/19 05:25 CSF Appearance Clear 08/01/19 10:40 CSF Color Colorless 08/01/19 10:40 CSF WBC 0 /mm3 (1-10) 08/01/19 10:40 CSF RBC 0 /mm3 (0-0) 08/01/19 10:40 CSF Seg Neutrophils 0 % (0-6) 08/01/19 10:40 CSF Lymphocytes % 0 % (40-80) 08/01/19 10:40 CSF Reactive Lymphs 0 % 08/01/19 10:40 CSF Monocytes % 0 % (15-45) 08/01/19 10:40 CSF Eosinophils % 0 % 08/01/19 10:40 CSF Basophils 0 % 08/01/19 10:40 CSF Pathologist Review C 08/01/19 10:40 CSF Glucose 57 mg/dL 08/01/19 10:40 CSF Total Protein 84 mg/dL 08/01/19 10:40 CSF VDRL Nonreactive (Nonreactive) 08/01/19 10:40 Random Vancomycin 14.9 ug/mL (0-40.0) 08/06/19 05:18 Complement C3 107 mg/dL (83-193) 08/01/19 16:07 Complement C4 32 mg/dL (15-57) 08/01/19 16:07 RPR Nonreactive (Nonreactive) 07/26/19 05:25 Hepatitis A IgM Ab Non-reactive (NonReactive) 07/26/19 10:53 Hep Bs Antigen Non-reactive (Negative) 07/26/19 10:53 Hep B Core IgM Ab Non-reactive (NonReactive) 07/26/19 10:53 Hepatitis C Antibody Non-reactive (NonReactive) 07/26/19 10:53 Blood Type A POSITIVE 08/02/19 12:50 Antibody Screen Negative 08/02/19 12:50 Crossmatch See Detail 08/02/19 12:50 Active Medications - Current Medications Current Medications: Generic Name Dose Route Start Last Admin Trade Name Freq PRN Reason Stop Dose Admin Acetaminophen 650 mg 07/26/19 11:08 08/03/19 21:27 Tylenol PO 650 mg Q6H PRN Administration Pain, Mild (1-3) Albuterol 2.5 mg 07/26/19 15:39 Proventil IH QID PRN Wheezing Lipase/Protease/Amylase 1 each 07/31/19 08:26 Pancreazmick Diane 10,500 Unit FEEDTUBE PRN PRN For Clogged Feeding Tube Cyanocobalamin 1,000 mcg 07/27/19 10:00 08/08/19 09:43 Vitamin B-12 PO 1,000 mcg QDAY JOEL Administration Dextrose 25 ml 07/26/19 11:06 07/26/19 12:32 D50w (25gm) Syringe IV 25 ml PRN PRN Administration Hypoglycemia Epoetin Mitch 10,000 unit 07/26/19 10:10 08/06/19 19:02 Procrit IV 10,000 unit FAN PRN Administration hemodialysis Folic Acid 1 mg 07/27/19 10:00 08/08/19 09:43 Folvite PO 1 mg QDAY JOEL Administration Hydralazine HCl 10 mg 07/30/19 20:16 07/31/19 00:05 Apresoline IV 10 mg Q4HR PRN Administration Blood Pressure Hydroxychloroquine Sulfate 200 mg 07/27/19 10:00 08/08/19 09:50 Plaquenil PO 200 mg QDAY JOEL Administration Hydroxyzine HCl 50 mg 07/27/19 10:00 08/08/19 09:43 Atarax PO 50 mg QDAY JOEL Administration Levetiracetam 500 mg/ Dextrose 105 mls @ 400 mls/hr 07/30/19 12:00 08/08/19 10:24 IV 400 mls/hr BID JOEL Administration MEROPENEM/NS 1 GRAM/100 ML 1 gram in 100 mls @ 100 mls/hr 08/05/19 10:00 08/08/19 09:42 Merrem/Ns 1 Gram/100 Ml IV 100 mls/hr Q24HR JOEL Administration Protocol Sodium Chloride 100 mls @ 999 mls/hr 08/06/19 15:13 Nacl 0.9% IV FAN PRN Hypotension Labetalol HCl 300 mg 07/26/19 16:00 08/08/19 09:43 Normodyne PO 300 mg BID JOEL Administration Lansoprazole 30 mg 08/04/19 10:00 08/08/19 09:43 Prevacid Solutab FEEDTUBE 30 mg BID JOEL Administration Losartan Potassium 50 mg 07/27/19 10:00 08/08/19 09:48 Cozaar PO 50 mg QDAY JOEL Administration Morphine Sulfate 1 mg 07/29/19 15:49 08/06/19 11:32 Morphine IV 1 mg Q8H PRN Administration Pain, Moderate (4-6) Mycophenolate Mofetil 500 mg 07/27/19 10:00 08/08/19 09:50 Cellcept PO 500 mg QDAY JOEL Administration Ondansetron HCl 4 mg 07/29/19 23:31 08/06/19 11:32 Zofran IV 4 mg Q6H PRN Administration Nausea And Vomiting Oxycodone/Acetaminophen 1 tab 07/29/19 15:49 08/05/19 21:42 Percocet 5/325 PO 1 tab Q8H PRN Administration Pain, Moderate (4-6) Prednisone 20 mg 07/27/19 10:00 08/08/19 09:50 Deltasone PO 20 mg QDAY JOEL Administration Sevelamer Carbonate 800 mg 07/26/19 16:30 08/08/19 08:00 Renvela PO 800 mg 0730,1630 JOEL Administration Simple Syrup 15 ml 07/31/19 08:26 Simple Syrup FEEDTUBE PRN PRN Hypoglycemia Simple Syrup 30 ml 07/31/19 08:26 Simple Syrup FEEDTUBE PRN PRN Hypoglycemia Sodium Bicarbonate 325 mg 07/31/19 08:26 Sodium Bicarbonate FEEDTUBE PRN PRN For Clogged Feeding Tube Nutrition/Malnutrition Assess - Dietary Evaluation Nutrition/Malnutrition Findings: Nutrition Notes Start: 07/26/19 14:40 Freq: Status: Active Protocol: Document 08/05/19 09:29 KS (Rec: 08/05/19 10:17 KS [id number]) Co-Sign 08/05/19 09:29 LM Nutrition Notes Initial or Follow up Reassessment Current Diagnosis CKD (stage V CKD),Hypertension Other Pertinent Diagnosis on HD, MRSA, lupus, anemia, wounds Current Diet Nepro at 45 ml/hr Labs/Tests K 5.1 BUN 52 CR 5 Glu 222 Pertinent Medications Reviewed Height 5 ft 3 in Weight 64 kg [place] Body Weight (kg) 52.27 BMI 25.0 Subjective/Other Information F/U for TF. TF not hanging in room. Per RN, pt was vomiting this morning and pulled out her Dobhoff yesterday. Dobhoff has been replaced. RN states pt is having a procedure today . Percent of energy/protein needs met: 0%/0% Burn Absent Trauma Absent Minimum of two criteria Yes Energy Intake (severe) < or equal to 50% Estimated Energy Requirement > or equal to 5 days Muscle Mass Mild Depletion (non-severe) Fluid Accumulation Mild (non-severe) #3 Nutrition Diagnosis Malnutrition Diagnosis Progress(for reassessment Continues documentation) #2 Nutrition Diagnosis Increased nutrient needs ( specify in comment below) Diagnosis Progress(for reassessment Continues documentation) #1 Nutrition Diagnosis Inadequate oral intake Diagnosis Progress(for reassessment Continues documentation) Is patient on ventilator? No Is Patient Ambulatory and/or Out of Bed Yes REE-([place]. or-ambulatory/OOB) [ 4408.869 [id number]] Calculation Used for Recommendations [place] Jeor Additional Notes PRO: 77 g- 96 g/day (1.2-1.5g/ kg/day AdBW 65kg) Fluid: 1-1.5L/day Nutrition Intervention Change Diet Order: Start TF as tolerated Nutrition Support: Nepro at 45ml/hr Flush with 120ml q4h Kcal 1,944 Protein (gm) 87 Fluid (mL) 785 Goal #1 Once TF starts meet at least 80% of energy/PRO needs via TF Goal #2 Wound healing Anticipated Discharge Needs: Unable to determine at this time Follow-Up By: 08/08/19 Additional Comments Follow for TF start/tolerance - Attestation Statement I have reviewed and agreed w/ Malnutrition eval & tx plan: Yes
[2019-08-08] MEDS ORDERED: D50W (25GM) Syringe IV PRN (12:24)
[2019-08-08] MEDS ORDERED: HumuLIN R SUB-Q ONE (12:24)
[2019-08-08 12:25] LABS: Band Neutrophils # (Manual) 1.4 K/mm3; Basophils % (Manual) 0 % (0.0-1.8); Eosinophils % (Manual) 0 % (0.0-4.3); Total Cells Counted 100
[2019-08-08 12:26] LABS: Anisocytosis 1+; Hypochromasia 1+; Macrocytosis Few
[2019-08-08 12:27] LABS: Platelet Estimate Consistent w Auto
[2019-08-08 12:46] LABS: Platelet Count 208 K/mm3 (140-440)
--- NOTE | 2019-08-08 12:54 | Progress Note ---
Assessment and Plan (1) Pancreatitis Current Visit: Yes Status: Acute Qualifiers: Chronicity: acute Acute pancreatitis complication: unspecified Plan to address problem: WBC improving and patient without abdominal pain on exam. 1. continue clear liquids, do not advance 2. gentle IVF 3. c/w abx per ID 4. monitor for fever, tachycardia, hypotension, worsening WBC, abdominal pain - if any of these are present or clinical condition worsening, immediate transfer request should be made to a tertiary care center. Subjective Date of service: 08/08/19 Narrative: Patient seen and examined. Mentation better today. Denies pain. Tolerating a clear liquid diet. Having normal bowel movements. No nausea, vomiting, fevers, chills. Objective Vital Signs - 12hr 08/08/19 08/08/19 08/08/19 06:03 09:43 09:48 Temperature 98.3 F Pulse Rate 84 84 Respiratory 20 Rate Blood Pressure 146/98 129/93 129/93 O2 Sat by Pulse Oximetry 08/08/19 12:04 Temperature 97.4 F L Pulse Rate 83 Respiratory 18 Rate Blood Pressure 80/56 O2 Sat by Pulse 98 Oximetry - General physical appearance Narrative Exam: Gen.: Awake and alert, no apparent distress CV: S1, S2 present Respiratory: Even and unlabored Abdomen: Soft, nontender, nondistended. No rebound, rigidity, guarding Extremities: No clubbing, cyanosis, edema - Labs 08/08/19 09:27 08/08/19 09:27 Diabetes panel 08/08/19 08/08/19 Range/Units 05:14 09:27 Sodium 127 L D 128 L (137-145) mmol/L Potassium 4.9 D 4.8 (3.6-5.0) mmol/L Chloride 84.7 L 85.0 L (98-107) mmol/L Carbon Dioxide 20 L 22 (22-30) mmol/L BUN 63 H 67 H (7-17) mg/dL Creatinine 6.5 H 6.9 H (0.7-1.2) mg/dL Glucose TNR TNR Calcium 8.9 9.1 (8.4-10.2) mg/dL AST 13 (5-40) units/L ALT 7 (7-56) units/L Alkaline Phosphatase 102 (35-129) units/L Total Protein 7.1 (6.3-8.2) g/dL Albumin 2.6 L (3.9-5) g/dL Calcium panel 08/08/19 08/08/19 Range/Units 05:14 09:27 Calcium 8.9 9.1 (8.4-10.2) mg/dL Albumin 2.6 L (3.9-5) g/dL Pituitary panel 08/08/19 08/08/19 Range/Units 05:14 09:27 Sodium 127 L D 128 L (137-145) mmol/L Potassium 4.9 D 4.8 (3.6-5.0) mmol/L Chloride 84.7 L 85.0 L (98-107) mmol/L Carbon Dioxide 20 L 22 (22-30) mmol/L BUN 63 H 67 H (7-17) mg/dL Creatinine 6.5 H 6.9 H (0.7-1.2) mg/dL Glucose TNR TNR Calcium 8.9 9.1 (8.4-10.2) mg/dL Adrenal panel 08/08/19 08/08/19 Range/Units 05:14 09:27 Sodium 127 L D 128 L (137-145) mmol/L Potassium 4.9 D 4.8 (3.6-5.0) mmol/L Chloride 84.7 L 85.0 L (98-107) mmol/L Carbon Dioxide 20 L 22 (22-30) mmol/L BUN 63 H 67 H (7-17) mg/dL Creatinine 6.5 H 6.9 H (0.7-1.2) mg/dL Glucose TNR TNR Calcium 8.9 9.1 (8.4-10.2) mg/dL Total Bilirubin 0.40 (0.1-1.2) mg/dL AST 13 (5-40) units/L ALT 7 (7-56) units/L Alkaline Phosphatase 102 (35-129) units/L Total Protein 7.1 (6.3-8.2) g/dL Albumin 2.6 L (3.9-5) g/dL
[2019-08-08] MEDS: HumaLOG SUB-Q SCH ×3 (12:59→23:54)
[2019-08-08] MEDS: SODIUM BICARBONATE PO SCH ×2 (13:00→20:50)
[2019-08-08] MEDS ORDERED: NACL 0.9% 500 ML 500 ML IV ONE (13:00)
[2019-08-08] MEDS ORDERED: HumaLOG SUB-Q ONE (17:57)
[2019-08-08] MEDS: LANTUS SUB-Q SCH (23:03)
[2019-08-09 05:29] LABS: Hematocrit 27.2 % (30.3-42.9); Hemoglobin 8.7 gm/dl (10.1-14.3); Mean Corpuscular HGB Conc 32 % (30-34); Mean Corpuscular Volume 83 fl (79-97); Red Blood Count 3.29 M/mm3 (3.65-5.03); Red Cell Distribution Width 18.2 % (13.2-15.2)
[2019-08-09 05:30] LABS: Platelet Count 222 K/mm3 (140-440)
[2019-08-09 05:49] LABS: Albumin 2.6 g/dL (3.9-5); Calcium 9.4 mg/dL (8.4-10.2)
[2019-08-09] MEDS: HumaLOG SUB-Q SCH ×3 (06:27→17:58)
--- NOTE | 2019-08-09 08:04 | Consultation ---
History of Present Illness Consult date: 08/09/19 History of present illness: thanks for consult reviewed all the notes/ labs / imaging studies will follow Past History Past Medical History: ESRD, hypertension, other (Lupus) Past Surgical History: Other (left leg fracture, AV fistula, peripheral neuropathy) Social history: other (marijuana use). denies: smoking, alcohol abuse Family history: hypertension Medications and Allergies Allergies Allergy/AdvReac Type Severity Reaction Status Date / Time lactose AdvReac Unknown Verified 07/29/19 08:16 Home Medications Medication Instructions Recorded Confirmed Last Taken Type Gabapentin 300 mg PO 3XW 11/14/18 07/26/19 07/25/19 History ALBUTEROL NEB's [Proventil] 2.5 mg IH QID PRN 07/26/19 07/26/19 07/25/19 History Amitriptyline [Elavil] 25 mg PO QHS 07/26/19 07/26/19 07/25/19 History Amitriptyline [Elavil] 25 mg PO QHS 07/26/19 07/26/19 07/25/19 History Cyanocobalamin (Vitamin B-12) 1,000 mcg PO QDAY 07/26/19 07/26/19 07/25/19 History [Vitamin B-12] Folic Acid [Folvite] 1 mg PO QDAY 07/26/19 07/26/19 07/25/19 History Hydroxychloroquine [Plaquenil] 200 mg PO QDAY 07/26/19 07/26/19 07/25/19 History Ibuprofen [Motrin] 800 mg PO Q8HR PRN 07/26/19 07/26/19 07/25/19 History Labetalol HCl [Labetalol 300mg TAB] 300 mg PO Q12H 07/26/19 07/26/19 07/25/19 History Losartan [Cozaar] 50 mg PO QDAY 07/26/19 07/26/19 07/25/19 History Mirtazapine 7.5 mg PO QDAY 07/26/19 07/26/19 07/25/19 History Mycophenolate [Cellcept] 500 mg PO QDAY 07/26/19 07/26/19 07/25/19 History Pantoprazole [Protonix] 40 mg PO BID 07/26/19 07/26/19 07/25/19 History Pregabalin [Lyrica] 25 mg PO QDAY 07/26/19 07/26/19 07/25/19 History Sevelamer HCl [Renagel] 800 mg PO BIDWM 07/26/19 07/26/19 07/25/19 History hydrOXYzine HCL [Atarax] 50 mg PO QDAY 07/26/19 07/26/19 07/25/19 History predniSONE [Deltasone] 20 mg PO QDAY 07/26/19 07/26/19 07/25/19 History Active Meds: Active Medications Acetaminophen (Tylenol) 650 mg PO Q6H PRN PRN Reason: Pain, Mild (1-3) Last Admin: 08/03/19 21:27 Dose: 650 mg Documented by: Albuterol (Proventil) 2.5 mg IH QID PRN PRN Reason: Wheezing Lipase/Protease/Amylase (Pancremarcella Diane 10,500 Unit) 1 each FEEDTUBE PRN PRN PRN Reason: For Clogged Feeding Tube Cyanocobalamin (Vitamin B-12) 1,000 mcg PO QDAY [facility] Last Admin: 08/08/19 09:43 Dose: 1,000 mcg Documented by: Dextrose (D50w (25gm) Syringe) 25 ml IV PRN PRN PRN Reason: Hypoglycemia Last Admin: 07/26/19 12:32 Dose: 25 ml Documented by: Epoetin Mitch (Procrit) 10,000 unit IV FAN PRN PRN Reason: hemodialysis Last Admin: 08/06/19 19:02 Dose: 10,000 unit Documented by: Folic Acid (Folvite) 1 mg PO QDAY [facility] Last Admin: 08/08/19 09:43 Dose: 1 mg Documented by: Hydralazine HCl (Apresoline) 10 mg IV Q4HR PRN PRN Reason: Blood Pressure Last Admin: 07/31/19 00:05 Dose: 10 mg Documented by: Hydroxychloroquine Sulfate (Plaquenil) 200 mg PO QDAY [facility] Last Admin: 08/08/19 09:50 Dose: 200 mg Documented by: Hydroxyzine HCl (Atarax) 50 mg PO QDAY [facility] Last Admin: 08/08/19 09:43 Dose: 50 mg Documented by: Levetiracetam 500 mg/ Dextrose 105 mls @ 400 mls/hr IV BID [facility] Last Admin: 08/08/19 23:03 Dose: 400 mls/hr Documented by: MEROPENEM/NS 1 GRAM/100 ML (Merrem/Ns 1 Gram/100 Ml) 1 gram in 100 mls @ 100 mls/hr IV Q24HR [facility]; Protocol Last Admin: 08/08/19 09:42 Dose: 100 mls/hr Documented by: Sodium Chloride (Nacl 0.9%) 100 mls @ 999 mls/hr IV FAN PRN PRN Reason: Hypotension Insulin Glargine (Lantus) 20 units SUB-Q QHS [facility] Last Admin: 08/08/19 23:03 Dose: 20 units Documented by: Insulin Human Lispro (Humalog) 0 unit SUB-Q Q6HR [facility]; Protocol Last Admin: 08/09/19 06:27 Dose: 4 unit Documented by: Labetalol HCl (Normodyne) 300 mg PO BID [facility] Last Admin: 08/08/19 21:27 Dose: 300 mg Documented by: Lansoprazole (Prevacid Solutab) 30 mg FEEDTUBE BID [facility] Last Admin: 08/08/19 21:21 Dose: 30 mg Documented by: Losartan Potassium (Cozaar) 50 mg PO QDAY [facility] Last Admin: 08/08/19 09:48 Dose: 50 mg Documented by: Morphine Sulfate (Morphine) 1 mg IV Q8H PRN PRN Reason: Pain, Moderate (4-6) Last Admin: 08/06/19 11:32 Dose: 1 mg Documented by: Mycophenolate Mofetil (Cellcept) 500 mg PO QDAY [facility] Last Admin: 08/08/19 09:50 Dose: 500 mg Documented by: Ondansetron HCl (Zofran) 4 mg IV Q6H PRN PRN Reason: Nausea And Vomiting Last Admin: 08/06/19 11:32 Dose: 4 mg Documented by: Oxycodone/Acetaminophen (Percocet 5/325) 1 tab PO Q8H PRN PRN Reason: Pain, Moderate (4-6) Last Admin: 08/05/19 21:42 Dose: 1 tab Documented by: Prednisone (Deltasone) 20 mg PO QDAY [facility] Last Admin: 08/08/19 09:50 Dose: 20 mg Documented by: Sevelamer Carbonate (Renvela) 800 mg PO 0730,1630 [facility] Last Admin: 08/08/19 17:59 Dose: 800 mg Documented by: Simple Syrup (Simple Syrup) 15 ml FEEDTUBE PRN PRN PRN Reason: Hypoglycemia Simple Syrup (Simple Syrup) 30 ml FEEDTUBE PRN PRN PRN Reason: Hypoglycemia Sodium Bicarbonate (Sodium Bicarbonate) 325 mg FEEDTUBE PRN PRN PRN Reason: For Clogged Feeding Tube Sodium Bicarbonate (Sodium Bicarbonate) 650 mg PO TID [facility] Last Admin: 08/08/19 20:50 Dose: 650 mg Documented by: Physical Examination - Vital Signs Vital Signs: Vital Signs Temp Pulse Resp BP Pulse Ox 99.8 F H 118 H 20 127/79 99 07/26/19 04:00 07/26/19 04:00 07/26/19 04:00 07/26/19 04:00 07/26/19 04:00 Results - Laboratory Findings CBC and BMP: 08/09/19 04:56 08/09/19 04:56 Abnormal Lab Findings: Abnormal Labs 07/26/19 07/26/19 07/26/19 05:25 05:25 05:25 WBC 28.2 H RBC 3.24 L Hgb 6.9 L Hct 23.2 L MCV 72 L MCH 21 L RDW 36.5 H Seg Neuts % (Manual) 80.0 H Lymphocytes % (Manual) Nucleated RBC % Seg Neutrophils # Man 22.6 H Lymphocytes # (Manual) Monocytes # (Manual) 1.4 H PT 16.6 H INR 1.38 H APTT 39.7 H Sodium 135 L Potassium 6.2 H* Chloride 95.7 L Carbon Dioxide 18 L BUN 71 H Creatinine 16.8 H Glucose POC Glucose Phosphorus TIBC Ferritin AST ALT < 5 L Troponin T C-Reactive Protein NT-Pro-B Natriuret Pep Total Protein Albumin 3.3 L Triglycerides LDL Cholesterol Direct HDL Cholesterol Amylase Lipase Crossmatch 07/26/19 07/26/19 07/26/19 06:31 06:31 06:33 WBC RBC Hgb Hct MCV MCH RDW Seg Neuts % (Manual) Lymphocytes % (Manual) Nucleated RBC % Seg Neutrophils # Man Lymphocytes # (Manual) Monocytes # (Manual) PT 16.7 H INR 1.39 H APTT 41.1 H Sodium Potassium Chloride Carbon Dioxide BUN Creatinine Glucose POC Glucose Phosphorus TIBC Ferritin AST < 5 L ALT < 5 L Troponin T 0.072 H C-Reactive Protein NT-Pro-B Natriuret Pep 84684 H Total Protein Albumin 3.2 L Triglycerides 170 H LDL Cholesterol Direct 30 L HDL Cholesterol 25 L Amylase Lipase Crossmatch See Detail 07/26/19 07/26/19 07/26/19 07:25 07:59 09:55 WBC RBC Hgb Hct MCV MCH RDW Seg Neuts % (Manual) Lymphocytes % (Manual) Nucleated RBC % Seg Neutrophils # Man Lymphocytes # (Manual) Monocytes # (Manual) PT INR APTT Sodium Potassium Chloride Carbon Dioxide BUN Creatinine Glucose POC Glucose 54 L 150 H 41 L Phosphorus TIBC Ferritin AST ALT Troponin T C-Reactive Protein NT-Pro-B Natriuret Pep Total Protein Albumin Triglycerides LDL Cholesterol Direct HDL Cholesterol Amylase Lipase Crossmatch 07/26/19 07/26/19 07/26/19 10:33 10:53 11:31 WBC RBC Hgb Hct MCV MCH RDW Seg Neuts % (Manual) Lymphocytes % (Manual) Nucleated RBC % Seg Neutrophils # Man Lymphocytes # (Manual) Monocytes # (Manual) PT INR APTT Sodium 135 L Potassium 6.1 H* Chloride 94.1 L Carbon Dioxide 19 L BUN 71 H Creatinine 16.4 H Glucose POC Glucose 66 L 51 L Phosphorus TIBC Ferritin AST ALT Troponin T C-Reactive Protein NT-Pro-B Natriuret Pep Total Protein Albumin Triglycerides LDL Cholesterol Direct HDL Cholesterol Amylase Lipase Crossmatch 07/26/19 07/26/19 07/26/19 12:18 13:04 20:51 WBC RBC Hgb Hct MCV MCH RDW Seg Neuts % (Manual) Lymphocytes % (Manual) Nucleated RBC % Seg Neutrophils # Man Lymphocytes # (Manual) Monocytes # (Manual) PT INR APTT Sodium Potassium Chloride Carbon Dioxide BUN Creatinine Glucose POC Glucose < 40 L 162 H 67 L Phosphorus TIBC Ferritin AST ALT Troponin T C-Reactive Protein NT-Pro-B Natriuret Pep Total Protein Albumin Triglycerides LDL Cholesterol Direct HDL Cholesterol Amylase Lipase Crossmatch 07/28/19 07/28/19 07/28/19 07:01 07:01 15:23 WBC 29.4 H RBC Hgb 9.0 L Hct 28.6 L MCV 74 L MCH 23 L RDW 30.9 H Seg Neuts % (Manual) 92.0 H Lymphocytes % (Manual) 3.0 L Nucleated RBC % Seg Neutrophils # Man 27.0 H Lymphocytes # (Manual) 0.9 L Monocytes # (Manual) 0.9 H PT INR APTT Sodium Potassium 5.9 H 5.2 H Chloride 94.0 L 94.7 L Carbon Dioxide BUN 55 H 64 H Creatinine 9.5 H 9.8 H Glucose 105 H POC Glucose Phosphorus TIBC Ferritin AST ALT Troponin T C-Reactive Protein NT-Pro-B Natriuret Pep Total Protein Albumin Triglycerides LDL Cholesterol Direct HDL Cholesterol Amylase Lipase Crossmatch 07/29/19 07/29/19 07/30/19 10:02 10:02 02:40 WBC 13.4 H 19.2 H RBC Hgb 9.4 L 8.5 L Hct 30.2 L 27.8 L MCV 75 L 75 L MCH 24 L 23 L RDW 30.9 H 31.3 H Seg Neuts % (Manual) 91.0 H 83.0 H Lymphocytes % (Manual) 7.0 L 10.0 L Nucleated RBC % Seg Neutrophils # Man 12.2 H 15.9 H Lymphocytes # (Manual) 0.9 L Monocytes # (Manual) 1.3 H PT INR APTT Sodium Potassium Chloride 94.4 L Carbon Dioxide BUN 49 H Creatinine 7.3 H Glucose POC Glucose Phosphorus TIBC Ferritin AST ALT Troponin T C-Reactive Protein NT-Pro-B Natriuret Pep Total Protein Albumin Triglycerides LDL Cholesterol Direct HDL Cholesterol Amylase Lipase Crossmatch 07/30/19 07/30/19 07/30/19 02:40 23:32 23:32 WBC RBC Hgb Hct MCV MCH RDW Seg Neuts % (Manual) Lymphocytes % (Manual) Nucleated RBC % Seg Neutrophils # Man Lymphocytes # (Manual) Monocytes # (Manual) PT INR APTT Sodium Potassium 6.0 H D 5.3 H 5.6 H Chloride 97.0 L Carbon Dioxide BUN 67 H 32 H Creatinine 8.6 H 4.5 H Glucose 105 H POC Glucose Phosphorus TIBC Ferritin AST ALT Troponin T C-Reactive Protein NT-Pro-B Natriuret Pep Total Protein Albumin Triglycerides LDL Cholesterol Direct HDL Cholesterol Amylase Lipase Crossmatch 07/31/19 07/31/19 08/01/19 04:39 04:39 04:00 WBC 29.6 H RBC 3.45 L Hgb 8.4 L Hct 26.8 L MCV 78 L MCH 25 L RDW 27.3 H Seg Neuts % (Manual) 83.0 H Lymphocytes % (Manual) 10.0 L Nucleated RBC % Seg Neutrophils # Man 24.6 H Lymphocytes # (Manual) Monocytes # (Manual) 2.1 H PT INR APTT Sodium 149 H Potassium Chloride Carbon Dioxide BUN 39 H 74 H Creatinine 5.2 H 7.8 H Glucose 125 H POC Glucose Phosphorus TIBC Ferritin AST ALT Troponin T C-Reactive Protein NT-Pro-B Natriuret Pep Total Protein Albumin Triglycerides LDL Cholesterol Direct HDL Cholesterol Amylase Lipase Crossmatch 08/01/19 08/01/19 08/01/19 04:00 13:17 Unknown WBC 31.3 H RBC 3.28 L Hgb 8.1 L Hct 25.4 L MCV 78 L MCH 25 L RDW 28.6 H Seg Neuts % (Manual) Lymphocytes % (Manual) Nucleated RBC % 2.0 H Seg Neutrophils # Man 16.6 H Lymphocytes # (Manual) Monocytes # (Manual) PT INR APTT Sodium Potassium Chloride Carbon Dioxide BUN Creatinine Glucose POC Glucose Phosphorus TIBC Ferritin AST ALT Troponin T C-Reactive Protein 55.00 H NT-Pro-B Natriuret Pep Total Protein Albumin Triglycerides LDL Cholesterol Direct HDL Cholesterol Amylase 834 H Lipase 241 H Crossmatch 08/02/19 08/02/19 08/02/19 09:03 09:03 12:50 WBC 45.4 H* RBC 2.86 L Hgb 6.9 L Hct 21.8 L MCV 76 L MCH 24 L RDW 29.5 H Seg Neuts % (Manual) 86.0 H Lymphocytes % (Manual) 3.0 L Nucleated RBC % 1.0 H Seg Neutrophils # Man 39.0 H Lymphocytes # (Manual) Monocytes # (Manual) PT INR APTT Sodium 147 H Potassium 5.5 H Chloride Carbon Dioxide BUN 118 H Creatinine 9.9 H Glucose 122 H POC Glucose Phosphorus TIBC Ferritin AST ALT Troponin T C-Reactive Protein NT-Pro-B Natriuret Pep Total Protein 6.2 L Albumin 2.7 L Triglycerides LDL Cholesterol Direct HDL Cholesterol Amylase Lipase Crossmatch See Detail 08/03/19 08/03/19 08/03/19 04:15 04:15 04:15 WBC 52.2 H* RBC Hgb Hct MCV MCH 26 L RDW 19.0 H Seg Neuts % (Manual) Lymphocytes % (Manual) Nucleated RBC % Seg Neutrophils # Man Lymphocytes # (Manual) Monocytes # (Manual) PT INR APTT Sodium Potassium Chloride 90.6 L Carbon Dioxide BUN 47 H Creatinine 4.9 H D Glucose 140 H POC Glucose Phosphorus TIBC 150 L Ferritin 5729.0 H AST ALT Troponin T C-Reactive Protein NT-Pro-B Natriuret Pep Total Protein Albumin 3.1 L Triglycerides 261 H LDL Cholesterol Direct HDL Cholesterol Amylase Lipase Crossmatch 08/03/19 08/04/19 08/04/19 10:23 04:58 04:58 WBC 51.3 H* RBC Hgb 9.5 L Hct 29.2 L MCV MCH 26 L RDW 20.4 H Seg Neuts % (Manual) Lymphocytes % (Manual) Nucleated RBC % Seg Neutrophils # Man Lymphocytes # (Manual) Monocytes # (Manual) PT INR APTT Sodium Potassium 5.5 H Chloride 91.4 L Carbon Dioxide BUN 74 H Creatinine 7.6 H D Glucose 137 H POC Glucose Phosphorus TIBC Ferritin AST ALT Troponin T C-Reactive Protein 40.30 H NT-Pro-B Natriuret Pep Total Protein Albumin 2.6 L Triglycerides LDL Cholesterol Direct HDL Cholesterol Amylase Lipase 103 H Crossmatch 08/05/19 08/05/19 08/06/19 04:09 04:09 05:18 WBC 47.0 H* 37.8 H RBC 3.35 L Hgb 9.8 L 8.8 L Hct 28.4 L MCV MCH 27 L 26 L RDW 18.7 H 20.1 H Seg Neuts % (Manual) 80.0 H Lymphocytes % (Manual) 3.0 L Nucleated RBC % Seg Neutrophils # Man 30.2 H Lymphocytes # (Manual) 1.1 L Monocytes # (Manual) 1.9 H PT INR APTT Sodium Potassium 5.1 H Chloride 91.2 L Carbon Dioxide BUN 52 H Creatinine 5.0 H Glucose 222 H POC Glucose Phosphorus TIBC Ferritin AST ALT Troponin T C-Reactive Protein NT-Pro-B Natriuret Pep Total Protein Albumin Triglycerides LDL Cholesterol Direct HDL Cholesterol Amylase Lipase Crossmatch 08/06/19 08/06/19 08/06/19 05:18 07:39 09:20 WBC RBC Hgb Hct MCV MCH RDW Seg Neuts % (Manual) Lymphocytes % (Manual) Nucleated RBC % Seg Neutrophils # Man Lymphocytes # (Manual) Monocytes # (Manual) PT INR APTT Sodium 131 L D Potassium 5.4 H Chloride 85.8 L Carbon Dioxide 20 L BUN 86 H Creatinine 7.1 H Glucose 366 H POC Glucose 420 H Phosphorus TIBC Ferritin AST ALT Troponin T C-Reactive Protein NT-Pro-B Natriuret Pep Total Protein Albumin 2.4 L Triglycerides LDL Cholesterol Direct HDL Cholesterol Amylase 425 H Lipase 250 H Crossmatch 08/07/19 08/07/19 08/08/19 04:50 04:50 05:14 WBC 34.4 H RBC 3.27 L Hgb 8.7 L Hct 27.3 L MCV MCH 27 L RDW 18.7 H Seg Neuts % (Manual) 89.0 H Lymphocytes % (Manual) 2.0 L Nucleated RBC % 1.0 H Seg Neutrophils # Man 30.6 H Lymphocytes # (Manual) 0.7 L Monocytes # (Manual) 1.0 H PT INR APTT Sodium Potassium Chloride 96.1 L Carbon Dioxide BUN 43 H Creatinine 4.6 H Glucose 335 H POC Glucose Phosphorus TIBC Ferritin AST ALT Troponin T C-Reactive Protein NT-Pro-B Natriuret Pep Total Protein Albumin 2.7 L Triglycerides LDL Cholesterol Direct HDL Cholesterol Amylase Lipase 282 H Crossmatch 08/08/19 08/08/19 08/08/19 05:14 09:27 09:27 WBC 23.5 H RBC 3.30 L Hgb 8.8 L Hct 28.6 L MCV MCH 27 L RDW 19.5 H Seg Neuts % (Manual) 82.0 H Lymphocytes % (Manual) 3.0 L Nucleated RBC % Seg Neutrophils # Man 19.3 H Lymphocytes # (Manual) 0.7 L Monocytes # (Manual) PT INR APTT Sodium 127 L D 128 L Potassium Chloride 84.7 L 85.0 L Carbon Dioxide 20 L BUN 63 H 67 H Creatinine 6.5 H 6.9 H Glucose POC Glucose Phosphorus TIBC Ferritin AST ALT Troponin T C-Reactive Protein NT-Pro-B Natriuret Pep Total Protein Albumin 2.6 L Triglycerides LDL Cholesterol Direct HDL Cholesterol Amylase Lipase Crossmatch 08/08/19 08/08/19 08/08/19 12:13 17:10 23:16 WBC RBC Hgb Hct MCV MCH RDW Seg Neuts % (Manual) Lymphocytes % (Manual) Nucleated RBC % Seg Neutrophils # Man Lymphocytes # (Manual) Monocytes # (Manual) PT INR APTT Sodium Potassium Chloride Carbon Dioxide BUN Creatinine Glucose POC Glucose > 500 H 463 H 273 H Phosphorus TIBC Ferritin AST ALT Troponin T C-Reactive Protein NT-Pro-B Natriuret Pep Total Protein Albumin Triglycerides LDL Cholesterol Direct HDL Cholesterol Amylase Lipase Crossmatch 08/09/19 08/09/19 08/09/19 04:56 04:56 05:40 WBC 22.6 H RBC 3.29 L Hgb 8.7 L Hct 27.2 L MCV MCH 27 L RDW 18.2 H Seg Neuts % (Manual) Lymphocytes % (Manual) Nucleated RBC % Seg Neutrophils # Man Lymphocytes # (Manual) Monocytes # (Manual) PT INR APTT Sodium 132 L Potassium Chloride 89.0 L Carbon Dioxide BUN 73 H Creatinine 8.0 H Glucose 187 H POC Glucose 224 H Phosphorus 7.50 H TIBC Ferritin AST ALT 5 L Troponin T C-Reactive Protein NT-Pro-B Natriuret Pep Total Protein Albumin 2.6 L Triglycerides LDL Cholesterol Direct HDL Cholesterol Amylase Lipase Crossmatch
[2019-08-09] MEDS ORDERED: NACL 0.9% 100 ML IV PRN (09:01)
[2019-08-09] MEDS: KEPPRA 500 MG in D5W 100 ML IV SCH (09:30)
[2019-08-09] MEDS: SODIUM BICARBONATE PO SCH ×3 (09:31→20:47)
[2019-08-09] MEDS: PLAQUENIL PO SCH (09:31)
[2019-08-09] MEDS: VITAMIN B-12 PO SCH (09:31)
[2019-08-09] MEDS: CELLCEPT PO SCH (09:31)
[2019-08-09] MEDS: NORMODYNE PO SCH ×2 (09:32→22:27)
[2019-08-09] MEDS: COZAAR PO SCH (09:33)
[2019-08-09] MEDS: ATARAX PO SCH (09:33)
[2019-08-09] MEDS: RENVELA PO SCH ×2 (09:34→17:57)
[2019-08-09] MEDS: PROTONIX PO SCH ×2 (09:34→22:23)
[2019-08-09] MEDS: DELTASONE PO SCH (09:34)
[2019-08-09] MEDS: FOLVITE PO SCH (09:35)
--- NOTE | 2019-08-09 10:48 | Gastroenterology Progress Note ---
Assessment and Plan 1. Severe acute necrotizing pancreatitis - clinically doing well although ct scan findings concerning. no fever, wbc stable and tolerating liquids. consider repeat ct scan in 2-3 days to assess for interval change. surgery following. defer diet per surgery recommendations at this time. Subjective Date of service: 08/09/19 Principal diagnosis: pancreatitis Interval history: Pt seen and examined; mental status unchanged (awake/altered, difficult to redirect), denies abd pain. tolerating po without reported n/v. Objective - Exam Narrative Exam: Gen: awake, confused/altered CV: RRR Lungs: CTAB, non labored Abd: soft, nt, nd, +bs - Constitutional Vitals: Temp Pulse Resp BP Pulse Ox 97.8 F 80 17 129/88 99 08/09/19 05:09 08/09/19 05:09 08/09/19 06:00 08/09/19 09:33 08/09/19 05:09 - Labs CBC & Chem 7: 08/09/19 04:56 08/09/19 04:56 Labs: Laboratory Results - last 24 hr 07/30/19 08/08/19 08/08/19 11:40 05:14 09:27 WBC RBC Hgb Hct MCV MCH MCHC RDW Plt Count 208 Add Manual Diff Complete Total Counted 100 Seg Neuts % (Manual) 82.0 H Band Neutrophils % 6.0 Lymphocytes % (Manual) 3.0 L Reactive Lymphs % (Man) 0 Monocytes % (Manual) 1.0 Eosinophils % (Manual) 0 Basophils % (Manual) 0 Metamyelocytes % 8.0 Myelocytes % 0 Promyelocytes % 0 Blast Cells % 0 Nucleated RBC % Not Reportable Seg Neutrophils # Man 19.3 H Band Neutrophils # 1.4 Lymphocytes # (Manual) 0.7 L Abs React Lymphs (Man) 0.0 Monocytes # (Manual) 0.2 Eosinophils # (Manual) 0.0 Basophils # (Manual) 0.0 Metamyelocytes # 1.9 Myelocytes # 0.0 Promyelocytes # 0.0 Blast Cells # 0.0 WBC Morphology Not Reportable Hypersegmented Neuts Not Reportable Hyposegmented Neuts Not Reportable Hypogranular Neuts Not Reportable Smudge Cells Not Reportable Toxic Granulation Not Reportable Toxic Vacuolation Not Reportable Dohle Bodies Not Reportable Pelger-Huet Anomaly Not Reportable Rose Rods Not Reportable Platelet Estimate Consistent w auto Clumped Platelets Not Reportable Plt Clumps, EDTA Not Reportable Large Platelets Not Reportable Giant Platelets Not Reportable Platelet Satelliting Not Reportable Plt Morphology Comment Not Reportable RBC Morphology Not Reportable Dimorphic RBCs Not Reportable Polychromasia 1+ Hypochromasia 1+ Poikilocytosis Not Reportable Anisocytosis 1+ Microcytosis Not Reportable Macrocytosis Few Spherocytes Not Reportable Pappenheimer Bodies Not Reportable Sickle Cells Not Reportable Target Cells Not Reportable Tear Drop Cells Not Reportable Ovalocytes Not Reportable Helmet Cells Not Reportable Benavidez-[place] Bodies Not Reportable [place] Rings Not Reportable Bk Cells Not Reportable Bite Cells Not Reportable Crenated Cell Not Reportable Elliptocytes Not Reportable Acanthocytes (Spur) Not Reportable Rouleaux Not Reportable Hemoglobin C Crystals Not Reportable Schistocytes Not Reportable Malaria parasites Not Reportable Dinesh Bodies Not Reportable Hem Pathologist Commnt No Sodium Potassium Chloride Carbon Dioxide Anion Gap BUN Creatinine Estimated GFR BUN/Creatinine Ratio Glucose TNR POC Glucose Hemoglobin A1c Calcium Phosphorus Total Bilirubin AST ALT Alkaline Phosphatase Total Protein Albumin Albumin/Globulin Ratio Double Strand DNA Ab See scanned result 08/08/19 08/08/19 08/08/19 09:27 09:27 12:13 WBC RBC Hgb Hct MCV MCH MCHC RDW Plt Count Add Manual Diff Total Counted Seg Neuts % (Manual) Band Neutrophils % Lymphocytes % (Manual) Reactive Lymphs % (Man) Monocytes % (Manual) Eosinophils % (Manual) Basophils % (Manual) Metamyelocytes % Myelocytes % Promyelocytes % Blast Cells % Nucleated RBC % Seg Neutrophils # Man Band Neutrophils # Lymphocytes # (Manual) Abs React Lymphs (Man) Monocytes # (Manual) Eosinophils # (Manual) Basophils # (Manual) Metamyelocytes # Myelocytes # Promyelocytes # Blast Cells # WBC Morphology Hypersegmented Neuts Hyposegmented Neuts Hypogranular Neuts Smudge Cells Toxic Granulation Toxic Vacuolation Dohle Bodies Pelger-Huet Anomaly Rose Rods Platelet Estimate Clumped Platelets Plt Clumps, EDTA Large Platelets Giant Platelets Platelet Satelliting Plt Morphology Comment RBC Morphology Dimorphic RBCs Polychromasia Hypochromasia Poikilocytosis Anisocytosis Microcytosis Macrocytosis Spherocytes Pappenheimer Bodies Sickle Cells Target Cells Tear Drop Cells Ovalocytes Helmet Cells Benavidez-[place] Bodies [place] Rings [place] Cells Bite Cells Crenated Cell Elliptocytes Acanthocytes (Spur) Rouleaux Hemoglobin C Crystals Schistocytes Malaria parasites Dinesh Bodies Hem Pathologist Commnt Sodium 128 L Potassium 4.8 Chloride 85.0 L Carbon Dioxide 22 Anion Gap 26 BUN 67 H Creatinine 6.9 H Estimated GFR 8 BUN/Creatinine Ratio 10 Glucose TNR POC Glucose > 500 H Hemoglobin A1c 5.9 Calcium 9.1 Phosphorus Total Bilirubin 0.40 AST 13 ALT 7 Alkaline Phosphatase 102 Total Protein 7.1 Albumin 2.6 L Albumin/Globulin Ratio 0.6 Double Strand DNA Ab 08/08/19 08/08/19 08/09/19 17:10 23:16 04:56 WBC 22.6 H RBC 3.29 L Hgb 8.7 L Hct 27.2 L MCV 83 MCH 27 L MCHC 32 RDW 18.2 H Plt Count 222 Add Manual Diff Total Counted Seg Neuts % (Manual) Band Neutrophils % Lymphocytes % (Manual) Reactive Lymphs % (Man) Monocytes % (Manual) Eosinophils % (Manual) Basophils % (Manual) Metamyelocytes % Myelocytes % Promyelocytes % Blast Cells % Nucleated RBC % Seg Neutrophils # Man Band Neutrophils # Lymphocytes # (Manual) Abs React Lymphs (Man) Monocytes # (Manual) Eosinophils # (Manual) Basophils # (Manual) Metamyelocytes # Myelocytes # Promyelocytes # Blast Cells # WBC Morphology Hypersegmented Neuts Hyposegmented Neuts Hypogranular Neuts Smudge Cells Toxic Granulation Toxic Vacuolation Dohle Bodies Pelger-Huet Anomaly Rose Rods Platelet Estimate Clumped Platelets Plt Clumps, EDTA Large Platelets Giant Platelets Platelet Satelliting Plt Morphology Comment RBC Morphology Dimorphic RBCs Polychromasia Hypochromasia Poikilocytosis Anisocytosis Microcytosis Macrocytosis Spherocytes Pappenheimer Bodies Sickle Cells Target Cells Tear Drop Cells Ovalocytes Helmet Cells Benavidez-[place] Bodies [place] Rings Bk Cells Bite Cells Crenated Cell Elliptocytes Acanthocytes (Spur) Rouleaux Hemoglobin C Crystals Schistocytes Malaria parasites Dinesh Bodies Hem Pathologist Commnt Sodium Potassium Chloride Carbon Dioxide Anion Gap BUN Creatinine Estimated GFR BUN/Creatinine Ratio Glucose POC Glucose 463 H 273 H Hemoglobin A1c Calcium Phosphorus Total Bilirubin AST ALT Alkaline Phosphatase Total Protein Albumin Albumin/Globulin Ratio Double Strand DNA Ab 08/09/19 08/09/19 04:56 05:40 WBC RBC Hgb Hct MCV MCH MCHC RDW Plt Count Add Manual Diff Total Counted Seg Neuts % (Manual) Band Neutrophils % Lymphocytes % (Manual) Reactive Lymphs % (Man) Monocytes % (Manual) Eosinophils % (Manual) Basophils % (Manual) Metamyelocytes % Myelocytes % Promyelocytes % Blast Cells % Nucleated RBC % Seg Neutrophils # Man Band Neutrophils # Lymphocytes # (Manual) Abs React Lymphs (Man) Monocytes # (Manual) Eosinophils # (Manual) Basophils # (Manual) Metamyelocytes # Myelocytes # Promyelocytes # Blast Cells # WBC Morphology Hypersegmented Neuts Hyposegmented Neuts Hypogranular Neuts Smudge Cells Toxic Granulation Toxic Vacuolation Dohle Bodies Pelger-Huet Anomaly Rose Rods Platelet Estimate Clumped Platelets Plt Clumps, EDTA Large Platelets Giant Platelets Platelet Satelliting Plt Morphology Comment RBC Morphology Dimorphic RBCs Polychromasia Hypochromasia Poikilocytosis Anisocytosis Microcytosis Macrocytosis Spherocytes Pappenheimer Bodies Sickle Cells Target Cells Tear Drop Cells Ovalocytes Helmet Cells Benavidez-[place] Bodies [place] Rings Five [place] Cells Bite Cells Crenated Cell Elliptocytes Acanthocytes (Spur) Rouleaux Hemoglobin C Crystals Schistocytes Malaria parasites Dinesh Bodies Hem Pathologist Commnt Sodium 132 L Potassium 4.4 Chloride 89.0 L Carbon Dioxide 23 Anion Gap 24 BUN 73 H Creatinine 8.0 H Estimated GFR 7 BUN/Creatinine Ratio 9 Glucose 187 H POC Glucose 224 H Hemoglobin A1c Calcium 9.4 Phosphorus 7.50 H Total Bilirubin 0.30 AST 13 ALT 5 L Alkaline Phosphatase 86 Total Protein 6.5 Albumin 2.6 L Albumin/Globulin Ratio 0.7 Double Strand DNA Ab
--- NOTE | 2019-08-09 11:29 | Progress Note ---
Assessment and Plan 1. ESRD: On maintenance hemodialysis three times a week, TTS schedule. 2. FEN: Hyperkalemia, K level is better. Monitor lytes. 3. Anemia: Epogen with HD. 4. New onset seizures: On Keppra. 5. Metabolic encephalopathy: Improving. 6. Sepsis. Vulvar abscess. Followed by ID. 7. Acute pancreatitis: Continue supportive care. Seen by GI. 8. History of lupus: On Cellcept, Plaquenil and Prednisone. Examination: General appearance: alert, appears stated age, not in distress HEENT: ATNC Respiratory: Clear to Ascultation Cardiology: regular, S1S2, no murmur Gastrointestinal: normoactive bowel sounds, no tenderness, not distended Integumentary: no rash Neurologic: alert, able to tell her name, able to move extremities, LE weakness noted, some confusion noted Musculoskeletal: no edema Hemodialysis access: L arm AVF Subjective Date of service: 08/09/19 Principal diagnosis: pancreatitis Interval history: Patient was seen and examined at the bedside. Sister at the bedside. Objective - Vital Signs Vital signs: Vital Signs - 12hr 08/09/19 08/09/19 08/09/19 05:09 06:00 09:32 Temperature 97.8 F Pulse Rate 80 Respiratory 20 Rate Respiratory 17 Rate [Bilateral Foot] Blood Pressure 115/82 129/88 O2 Sat by Pulse 99 Oximetry 08/09/19 09:33 Temperature Pulse Rate Respiratory Rate Respiratory Rate [Bilateral Foot] Blood Pressure 129/88 O2 Sat by Pulse Oximetry - Lab 08/09/19 04:56 08/09/19 04:56 Most recent lab results Calcium 9.4 mg/dL (8.4-10.2) 08/09/19 04:56 Phosphorus 7.50 mg/dL (2.5-4.5) H 08/09/19 04:56 Magnesium 2.00 mg/dL (1.7-2.3) 07/30/19 23:32 Medications & Allergies - Medications Allergies/Adverse Reactions: Allergies lactose Adverse Reaction (Verified 07/29/19 08:16) Unknown Home Medications: Home Medications Medication Instructions Recorded Confirmed Last Taken Type Gabapentin 300 mg PO 3XW 11/14/18 07/26/19 07/25/19 History ALBUTEROL NEB's [Proventil] 2.5 mg IH QID PRN 0907/26/19 07/25/19 History Amitriptyline [Elavil] 25 mg PO QHS 07/26/19 07/26/19 07/25/19 History Amitriptyline [Elavil] 25 mg PO QHS 07/26/19 07/26/19 07/25/19 History Cyanocobalamin (Vitamin B-12) 1,000 mcg PO QDAY 07/26/19 07/26/19 07/25/19 History [Vitamin B-12] Folic Acid [Folvite] 1 mg PO QDAY 07/26/19 07/26/19 07/25/19 History Hydroxychloroquine [Plaquenil] 200 mg PO QDAY 07/26/19 07/26/19 07/25/19 History Ibuprofen [Motrin] 800 mg PO Q8HR PRN 07/26/19 07/26/19 07/25/19 History Labetalol HCl [Labetalol 300mg TAB] 300 mg PO Q12H 07/26/19 07/26/19 07/25/19 History Losartan [Cozaar] 50 mg PO QDAY 07/26/19 07/26/19 07/25/19 History Mirtazapine 7.5 mg PO QDAY 07/26/19 07/26/19 07/25/19 History Mycophenolate [Cellcept] 500 mg PO QDAY 07/26/19 07/26/19 07/25/19 History Pantoprazole [Protonix] 40 mg PO BID 07/26/19 07/26/19 07/25/19 History Pregabalin [Lyrica] 25 mg PO QDAY 07/26/19 07/26/19 07/25/19 History Sevelamer HCl [Renagel] 800 mg PO BIDWM 07/26/19 07/26/19 07/25/19 History hydrOXYzine HCL [Atarax] 50 mg PO QDAY 07/26/19 07/26/19 07/25/19 History predniSONE [Deltasone] 20 mg PO QDAY 07/26/19 07/26/19 07/25/19 History Active Medications: Generic Name Dose Route Start Last Admin Trade Name Freq PRN Reason Stop Dose Admin Acetaminophen 650 mg 07/26/19 11:08 08/03/19 21:27 Tylenol PO 650 mg Q6H PRN Administration Pain, Mild (1-3) Albuterol 2.5 mg 07/26/19 15:39 Proventil IH QID PRN Wheezing Lipase/Protease/Amylase 1 each 07/31/19 08:26 Tu Diane 10,500 Unit FEEDTUBE PRN PRN For Clogged Feeding Tube Cyanocobalamin 1,000 mcg 07/27/19 10:00 08/09/19 09:31 Vitamin B-12 PO 1,000 mcg QDAY JOEL Administration Dextrose 25 ml 07/26/19 11:06 07/26/19 12:32 D50w (25gm) Syringe IV 25 ml PRN PRN Administration Hypoglycemia Epoetin Mitch 10,000 unit 07/26/19 10:10 08/06/19 19:02 Procrit IV 10,000 unit FAN PRN Administration hemodialysis Folic Acid 1 mg 07/27/19 10:00 08/09/19 09:35 Folvite PO 1 mg QDAY JOEL Administration Hydralazine HCl 10 mg 07/30/19 20:16 07/31/19 00:05 Apresoline IV 10 mg Q4HR PRN Administration Blood Pressure Hydroxychloroquine Sulfate 200 mg 07/27/19 10:00 08/09/19 09:31 Plaquenil PO 200 mg QDAY JOEL Administration Hydroxyzine HCl 50 mg 07/27/19 10:00 08/09/19 09:33 Atarax PO 50 mg QDAY JOEL Administration Levetiracetam 500 mg/ Dextrose 105 mls @ 400 mls/hr 07/30/19 12:00 08/09/19 09:30 IV 08/09/19 14:00 400 mls/hr BID JOEL Administration MEROPENEM/NS 1 GRAM/100 ML 1 gram in 100 mls @ 100 mls/hr 08/09/19 18:00 Merrem/Ns 1 Gram/100 Ml IV QPM JOEL Protocol Sodium Chloride 100 mls @ 999 mls/hr 08/09/19 09:01 Nacl 0.9% IV FAN PRN Hypotension Insulin Glargine 20 units 08/08/19 22:00 08/08/19 23:03 Lantus SUB-Q 20 units QHS JOEL Administration Insulin Human Lispro 0 unit 08/08/19 13:00 08/09/19 06:27 Humalog SUB-Q 4 unit Q6HR JOEL Administration Protocol Labetalol HCl 300 mg 07/26/19 16:00 08/09/19 09:32 Normodyne PO 300 mg BID JOEL Administration Levetiracetam 500 mg 08/09/19 22:00 Keppra PO BID JOEL Losartan Potassium 50 mg 07/27/19 10:00 08/09/19 09:33 Cozaar PO 50 mg QDAY JOEL Administration Morphine Sulfate 1 mg 07/29/19 15:49 08/06/19 11:32 Morphine IV 1 mg Q8H PRN Administration Pain, Moderate (4-6) Mycophenolate Mofetil 500 mg 07/27/19 10:00 08/09/19 09:31 Cellcept PO 500 mg QDAY JOEL Administration Ondansetron HCl 4 mg 07/29/19 23:31 08/06/19 11:32 Zofran IV 4 mg Q6H PRN Administration Nausea And Vomiting Oxycodone/Acetaminophen 1 tab 07/29/19 15:49 08/05/19 21:42 Percocet 5/325 PO 1 tab Q8H PRN Administration Pain, Moderate (4-6) Pantoprazole Sodium 40 mg 08/09/19 10:00 08/09/19 09:34 Protonix PO 40 mg BID JOEL Administration Prednisone 20 mg 07/27/19 10:00 08/09/19 09:34 Deltasone PO 20 mg QDAY JOEL Administration Sevelamer Carbonate 800 mg 07/26/19 16:30 08/09/19 09:34 Renvela PO 800 mg 0730,1630 JOEL Administration Simple Syrup 15 ml 07/31/19 08:26 Simple Syrup FEEDTUBE PRN PRN Hypoglycemia Simple Syrup 30 ml 07/31/19 08:26 Simple Syrup FEEDTUBE PRN PRN Hypoglycemia Sodium Bicarbonate 325 mg 07/31/19 08:26 Sodium Bicarbonate FEEDTUBE PRN PRN For Clogged Feeding Tube Sodium Bicarbonate 650 mg 08/08/19 14:00 08/09/19 09:31 Sodium Bicarbonate PO 650 mg TID JOEL Administration
[2019-08-09] MEDS: PROCRIT IV PRN (14:15)
--- NOTE | 2019-08-09 15:08 | Progress Note ---
Assessment and Plan Cultures: Wound culture - E coli, whittaker sensitive Blood culture 07/26/2019 no growth today CSF 08/02/2019 no organisms, no leukocytes Right labia drainage 08/02/2019 +E coli pansens, Enterococcus A/P: 49 yo F PMHx ESRD on HD, lupus, previous MRSA infection now with wound infection, abdominal pain and seizures 1. Acute sepsis - leukocytosis with leukomoid reaction, some better 52-->47K. Possible source necrotizing pancreatitis +/- right labia abscess +/- less likely sinusitis 2. Presumedly Complicated Pancreatitis: improving; ? CT with generalized edema is noted throughout the pancreas with surrounding moderate inflammation. No distinct pancreatic lesion is identified. Lipase 241. Repeat contrasted CT with severely abnormal pancreas with multiple focal areas of nonperfusion in the distal pancreas. Necrotizing pancreatitis could be considered. There is moderate to large fluid throughout the base of the mesentery and left abdomen which is grossly unchanged. 3. Right labia abscess v/s necrotizing fascitis: Staph vs polymicrobial. Right labia drainage 08/02/2019 +whittaker-sensitive E coli and now Enterococcus. [employer] IN NURSING on board. Procalcitonin 22 (high/unclear significance is the setting of ESRD). Repeat Contrasted CT did not include perineum 4. Wound infection right buttocks 5. Lupus - on plaquenil, cellcept and prednisone ? flare 6. New onset Seizures - ?? unclear etiology 7. AMS? received ativan for agitation overnight ? due to sepsis ?lupus. CT head with left maxillary sinusitis. Since patient is immunocompromised will close monitor for OI. S/p LP CSF with no evidence of meningitis. WBC=0, CSF glucose and protein pending. 8. Severe anemia ? plaquenil ? GI bleed 9. Immunocompromised host 10. ESRD on HD - renally dose antibiotics Recs: - continue meropenem IV renally adjusted for necrotizing pancreatitis and labia infection - should cover E coli and E faecalis - monitor mentation which is better - monitor leukocytosis currently stable Will follow. Almas Merino MD [facility] ([facility] M: [phone] O: [phone] F: [phone] Subjective Date of service: 08/09/19 Principal diagnosis: pancreatitis Interval history: Afebrile, improving white count (though still elevated). No new issues. Objective - Exam Narrative Exam: General appearance: alert in NAD Eyes: anicteric sclerae, clear conjunctivae HENT: Atraumatic; oropharynx clear dry mucosa +NGT Lungs: CTA CV: RRR Abdomen: Soft, tenderness diffusely Extremities: no edema, no cyanosis Skin: No rash. +multiple scattered old scars and +right hip superficial wound Gen: +right labia swelling with small opening not draining purulence Psych: somnolent Neuro: somnolent - Constitutional Vitals: Vital Signs Temp Pulse Resp BP Pulse Ox 97.8 F 86 18 109/60 99 08/09/19 11:09 08/09/19 14:30 08/09/19 11:09 08/09/19 14:30 08/09/19 05:09 Temperature -Last 24 Hours Temperature 97.8 F Temperature 97.8 F Temperature 98.3 F Temperature 97.7 F Temperature 98.7 F - Labs CBC & Chem 7: 08/09/19 04:56 08/09/19 04:56 Labs: Abnormal lab results 08/08/19 08/08/19 08/09/19 Range/Units 17:10 23:16 04:56 WBC 22.6 H (4.5-11.0) K/mm3 RBC 3.29 L (3.65-5.03) M/mm3 Hgb 8.7 L (10.1-14.3) gm/dl Hct 27.2 L (30.3-42.9) % MCH 27 L (28-32) pg RDW 18.2 H (13.2-15.2) % Sodium (137-145) mmol/L Chloride (98-107) mmol/L BUN (7-17) mg/dL Creatinine (0.7-1.2) mg/dL Glucose (65-100) mg/dL POC Glucose 463 H 273 H (70-105) Phosphorus (2.5-4.5) mg/dL ALT (7-56) units/L Albumin (3.9-5) g/dL 08/09/19 08/09/19 Range/Units 04:56 05:40 WBC (4.5-11.0) K/mm3 RBC (3.65-5.03) M/mm3 Hgb (10.1-14.3) gm/dl Hct (30.3-42.9) % MCH (28-32) pg RDW (13.2-15.2) % Sodium 132 L (137-145) mmol/L Chloride 89.0 L (98-107) mmol/L BUN 73 H (7-17) mg/dL Creatinine 8.0 H (0.7-1.2) mg/dL Glucose 187 H (65-100) mg/dL POC Glucose 224 H (70-105) Phosphorus 7.50 H (2.5-4.5) mg/dL ALT 5 L (7-56) units/L Albumin 2.6 L (3.9-5) g/dL
--- NOTE | 2019-08-09 15:15 | Progress Note ---
Assessment and Plan (1) Pancreatitis Current Visit: Yes Status: Acute Qualifiers: Chronicity: acute Acute pancreatitis complication: unspecified Plan to address problem: WBC stable and patient without abdominal pain on exam. 1. continue clear liquids with protein supplement 2. gentle IVF 3. c/w abx per ID 4. monitor for fever, tachycardia, hypotension, worsening WBC, abdominal pain - if any of these are present or clinical condition worsening, immediate transfer request should be made to a tertiary care center. Discussed imaging, patient condition, and plan with his daughter. Thank you, please call with questions Subjective Date of service: 08/09/19 Narrative: Pt seen and examined. States she feels better. No abdominal pain, n/v, f/c. Tolerating clear diet. Objective Vital Signs - 12hr 08/09/19 08/09/19 08/09/19 05:09 06:00 09:32 Temperature 97.8 F Pulse Rate 80 Respiratory 20 Rate Respiratory 17 Rate [Bilateral Foot] Blood Pressure 115/82 129/88 O2 Sat by Pulse 99 Oximetry 08/09/19 08/09/19 08/09/19 09:33 11:09 11:15 Temperature 97.8 F Pulse Rate 79 81 Respiratory 18 Rate Respiratory Rate [Bilateral Foot] Blood Pressure 129/88 121/71 120/73 O2 Sat by Pulse Oximetry 08/09/19 08/09/19 08/09/19 11:30 11:45 12:00 Temperature Pulse Rate 82 82 82 Respiratory Rate Respiratory Rate [Bilateral Foot] Blood Pressure 118/72 123/72 115/73 O2 Sat by Pulse Oximetry 08/09/19 08/09/19 08/09/19 12:15 12:30 12:45 Temperature Pulse Rate 82 81 82 Respiratory Rate Respiratory Rate [Bilateral Foot] Blood Pressure 112/70 114/69 109/68 O2 Sat by Pulse Oximetry 08/09/19 08/09/19 08/09/19 13:00 13:15 13:30 Temperature Pulse Rate 83 81 82 Respiratory Rate Respiratory Rate [Bilateral Foot] Blood Pressure 110/62 94/54 111/57 O2 Sat by Pulse Oximetry 08/09/19 08/09/19 08/09/19 13:45 14:00 14:15 Temperature Pulse Rate 84 78 83 Respiratory Rate Respiratory Rate [Bilateral Foot] Blood Pressure 108/50 100/58 112/65 O2 Sat by Pulse Oximetry 08/09/19 14:30 Temperature Pulse Rate 86 Respiratory Rate Respiratory Rate [Bilateral Foot] Blood Pressure 109/60 O2 Sat by Pulse Oximetry - General physical appearance Narrative Exam: Gen: Awake and alert. NAD CV: S1, S2+ Resp: even and unlabored Abd: soft, NT, ND. no r/r/g Ext: no c/c/e - Labs 08/09/19 04:56 08/09/19 04:56 Diabetes panel 08/09/19 Range/Units 04:56 Sodium 132 L (137-145) mmol/L Potassium 4.4 (3.6-5.0) mmol/L Chloride 89.0 L (98-107) mmol/L Carbon Dioxide 23 (22-30) mmol/L BUN 73 H (7-17) mg/dL Creatinine 8.0 H (0.7-1.2) mg/dL Glucose 187 H (65-100) mg/dL Calcium 9.4 (8.4-10.2) mg/dL AST 13 (5-40) units/L ALT 5 L (7-56) units/L Alkaline Phosphatase 86 (35-129) units/L Total Protein 6.5 (6.3-8.2) g/dL Albumin 2.6 L (3.9-5) g/dL Calcium panel 08/09/19 Range/Units 04:56 Calcium 9.4 (8.4-10.2) mg/dL Phosphorus 7.50 H (2.5-4.5) mg/dL Albumin 2.6 L (3.9-5) g/dL Pituitary panel 08/09/19 Range/Units 04:56 Sodium 132 L (137-145) mmol/L Potassium 4.4 (3.6-5.0) mmol/L Chloride 89.0 L (98-107) mmol/L Carbon Dioxide 23 (22-30) mmol/L BUN 73 H (7-17) mg/dL Creatinine 8.0 H (0.7-1.2) mg/dL Glucose 187 H (65-100) mg/dL Calcium 9.4 (8.4-10.2) mg/dL Adrenal panel 08/09/19 Range/Units 04:56 Sodium 132 L (137-145) mmol/L Potassium 4.4 (3.6-5.0) mmol/L Chloride 89.0 L (98-107) mmol/L Carbon Dioxide 23 (22-30) mmol/L BUN 73 H (7-17) mg/dL Creatinine 8.0 H (0.7-1.2) mg/dL Glucose 187 H (65-100) mg/dL Calcium 9.4 (8.4-10.2) mg/dL Total Bilirubin 0.30 (0.1-1.2) mg/dL AST 13 (5-40) units/L ALT 5 L (7-56) units/L Alkaline Phosphatase 86 (35-129) units/L Total Protein 6.5 (6.3-8.2) g/dL Albumin 2.6 L (3.9-5) g/dL
--- NOTE | 2019-08-09 16:12 | Progress Note ---
Assessment and Plan Assessment and plan: Patient is a 29-year-old -[place]ron[place] woman with a history of end-stage renal disease on hemodialysis. SLE/lupus, chronic pain syndrome, MRSA infection and hypertension who presented to [facility] ED on 07/26/2019 with bilateral leg pains, cramping and burning sensation. She was found to have hyperkalemia, fluid overload fevers, right labial abscess, leg wounds, with wound cultures positive for Escherichia coli. During hospital coarse, she developed new onset seizures on 07/30/2019, received Keppra and Ativan. She was seen by Neurologist, Dr. Lu, CT head negative, but patient has remained altered with lethargy, non-sensical speech, since first episode of seizure. Brain MRI done was negative for acute abnormalities. A second neurologist, , was consulted for second opinion on 08/02/2019. She had very high persist Persistent leukocytosis, ID evaluated, ordered C. difficile. She underwent LP with was negative for meningitis. She had CT abd/pelvis done which was concerning for severe necrotizing pancreatitis. General surgeon was consulted and recommended transfer to higher level of care which Dr. Andrea tried but it appears the transfer was denied. * Wound culture - E coli, whittaker sensitive * Blood culture 07/26/2019 no growth today * CSF 08/02/2019 no organisms, no leukocytes * Right labia drainage 08/02/2019 +E coli pansens, Enterococcus Severe acute necrotizing pancreatitis --New onset seizures : On Keppra, Seizure precautions, Follow EEG, CT head negative for acute abnormality MRI brain no acute abnormalities . Neurology following -No evidence of Meningitis on LP lab review --Severe Metabolic encephalopathy; multifactorial Right labia abscess v/s necrotizing fascitis: Staph vs polymicrobial. Right labia drainage 08/02/2019 +whittaker-sensitive E coli and now Enterococcus. [facility] on board. Procalcitonin 22 (high/unclear significance is the setting of ESRD). Repeat Contrasted CT did not include perineum Sepsis, seizures, acute pancreatitis , ESRD. Bun much improved following dialysis --Persistent leukocytosis; Escherichia coli sepsis Continue cefepime ?Reactive vs from acute pancreatitis Improving --Acute pancreatitis on CT/elevated lipase Continue supportive care, GI consulted Surgery INPUT NOTED, Will consider Transfer to tertiary institution --Episode of Coffee-ground emesis; closely monitor H&H GI consult and input noted ?Plaquinel input PRBC for a total of 4 units --History of lupus; resume home medications Possible flareup, monitor Patient on Plaquinel should cover E coli and E faecalis (along as it is not VRE) --Sepsis; Escherichia coli wound infection, likely right vaginal abscess IV antibiotics, supportive care Continue Meropenem IV --Hypotension; If no improvement, consider vasopressors and transferred to ICU --Hyperkalemia; resolved secondary to end-stage renal disease --End-stage renal disease; on hemodialysis HD per schedule, nephrology --Moderate malnutrition/hypoalbuminemia; Dobbhoff placement Tube feeding per protocol --DVT prophylaxis; Lovenox renal dose Plan of care reviewed with the patient's nurse Family members patient's sister/next of kin Mariya Painting at [phone] UPDATED Disposition; patient is critically ill, Evaluations and recommendations History Interval history: Patient was seen and examined. Follow-up on current diagnosis of AMS. No overnight events reported to me. Imaging, nursing note, chart, labs and old chart reviewed. Hospitalist Physical - Physical exam Narrative exam: Gen: unkempt, ill appearing NAD, Awake, confused HEENT: scalp lesions with diffuse small 3mm ulcerations Neck: supple, adenopathy, no thyromegaly, no JVD CVS/Heart: RRR, normal S1S2, pulses present bilaterally Chest/Lungs: CTA B, Symmetrical chest expansion, good air entry bilaterally GI/Abdomen: soft, NTND, good bowel sounds, no guarding or rebound /Bladder: no suprapubic tenderness, no CVA or paraspinal tenderness Extermity/Skin: obvious rash, scalp lesions with diffuse small 3mm ulcerations MSK: FROM x 4 Neuro: CN 2-12 grossly intact, not talking, grimaces, makes eye contact but just stares Psych: calm but confused - Constitutional Vitals: Temp Pulse Resp BP Pulse Ox 97.1 F L 86 18 107/57 99 08/09/19 15:00 08/09/19 15:00 08/09/19 15:00 08/09/19 15:00 08/09/19 05:09 General appearance: Present: no acute distress, well-nourished Results - Labs CBC & Chem 7: 08/09/19 04:56 08/09/19 04:56 Labs: Laboratory Last Values WBC 22.6 K/mm3 (4.5-11.0) H 08/09/19 04:56 RBC 3.29 M/mm3 (3.65-5.03) L 08/09/19 04:56 Hgb 8.7 gm/dl (10.1-14.3) L 08/09/19 04:56 Hct 27.2 % (30.3-42.9) L 08/09/19 04:56 MCV 83 fl (79-97) 08/09/19 04:56 MCH 27 pg (28-32) L 08/09/19 04:56 MCHC 32 % (30-34) 08/09/19 04:56 RDW 18.2 % (13.2-15.2) H 08/09/19 04:56 Plt Count 222 K/mm3 (140-440) 08/09/19 04:56 Lymph # Improvement Rn 08/02/19 09:03 Add Manual Diff Complete 08/08/19 09:27 Total Counted 100 08/08/19 09:27 Seg Neuts % (Manual) 82.0 % (40.0-70.0) H 08/08/19 09:27 Band Neutrophils % 6.0 % 08/08/19 09:27 Lymphocytes % (Manual) 3.0 % (13.4-35.0) L 08/08/19 09:27 Reactive Lymphs % (Man) 0 % 08/08/19 09:27 Monocytes % (Manual) 1.0 % (0.0-7.3) 08/08/19 09:27 Eosinophils % (Manual) 0 % (0.0-4.3) 08/08/19 09:27 Basophils % (Manual) 0 % (0.0-1.8) 08/08/19 09:27 Metamyelocytes % 8.0 % 08/08/19 09:27 Myelocytes % 0 % 08/08/19 09:27 Promyelocytes % 0 % 08/08/19 09:27 Blast Cells % 0 % 08/08/19 09:27 Nucleated RBC % Not Reportable 08/08/19 09:27 Seg Neutrophils # Man 19.3 K/mm3 (1.8-7.7) H 08/08/19 09:27 Band Neutrophils # 1.4 K/mm3 08/08/19 09:27 Lymphocytes # (Manual) 0.7 K/mm3 (1.2-5.4) L 08/08/19 09:27 Abs React Lymphs (Man) 0.0 K/mm3 08/08/19 09:27 Monocytes # (Manual) 0.2 K/mm3 (0.0-0.8) 08/08/19 09:27 Eosinophils # (Manual) 0.0 K/mm3 (0.0-0.4) 08/08/19 09:27 Basophils # (Manual) 0.0 K/mm3 (0.0-0.1) 08/08/19 09:27 Metamyelocytes # 1.9 K/mm3 08/08/19 09:27 Myelocytes # 0.0 K/mm3 08/08/19 09:27 Promyelocytes # 0.0 K/mm3 08/08/19 09:27 Blast Cells # 0.0 K/mm3 08/08/19 09:27 Pathologist Review 08/02/19 09:03 WBC Morphology Not Reportable 08/08/19 09:27 Hypersegmented Neuts Not Reportable 08/08/19 09:27 Hyposegmented Neuts Not Reportable 08/08/19 09:27 Hypogranular Neuts Not Reportable 08/08/19 09:27 Smudge Cells Not Reportable 08/08/19 09:27 Toxic Granulation Not Reportable 08/08/19 09:27 Toxic Vacuolation Not Reportable 08/08/19 09:27 Dohle Bodies Not Reportable 08/08/19 09:27 Pelger-Huet Anomaly Not Reportable 08/08/19 09:27 Rose Rods Not Reportable 08/08/19 09:27 Platelet Estimate Consistent w auto 08/08/19 09:27 Clumped Platelets Not Reportable 08/08/19 09:27 Plt Clumps, EDTA Not Reportable 08/08/19 09:27 Large Platelets Not Reportable 08/08/19 09:27 Giant Platelets Not Reportable 08/08/19 09:27 Platelet Satelliting Not Reportable 08/08/19 09:27 Plt Morphology Comment Not Reportable 08/08/19 09:27 RBC Morphology Not Reportable 08/08/19 09:27 Dimorphic RBCs Not Reportable 08/08/19 09:27 Polychromasia 1+ 08/08/19 09:27 Hypochromasia 1+ 08/08/19 09:27 Poikilocytosis Not Reportable 08/08/19 09:27 Anisocytosis 1+ 08/08/19 09:27 Microcytosis Not Reportable 08/08/19 09:27 Macrocytosis Few 08/08/19 09:27 Spherocytes Not Reportable 08/08/19 09:27 Pappenheimer Bodies Not Reportable 08/08/19 09:27 Sickle Cells Not Reportable 08/08/19 09:27 Target Cells Not Reportable 08/08/19 09:27 Tear Drop Cells Not Reportable 08/08/19 09:27 Ovalocytes Not Reportable 08/08/19 09:27 Helmet Cells Not Reportable 08/08/19 09:27 Benavidez-[place] Bodies Not Reportable 08/08/19 09:27 [place] Rings Not Reportable 08/08/19 09:27 Eldred Cells Not Reportable 08/08/19 09:27 Bite Cells Not Reportable 08/08/19 09:27 Crenated Cell Not Reportable 08/08/19 09:27 Elliptocytes Not Reportable 08/08/19 09:27 Acanthocytes (Spur) Not Reportable 08/08/19 09:27 Rouleaux Not Reportable 08/08/19 09:27 Hemoglobin C Crystals Not Reportable 08/08/19 09:27 Schistocytes Not Reportable 08/08/19 09:27 Malaria parasites Not Reportable 08/08/19 09:27 ESR 78 mm/Hr (0-20) 07/26/19 05:25 Dinesh Bodies Not Reportable 08/08/19 09:27 Hem Pathologist Commnt No 08/08/19 09:27 PT 16.7 Sec. (12.2-14.9) H 07/26/19 06:31 INR 1.39 (0.87-1.13) H 07/26/19 06:31 APTT 41.1 Sec. (24.2-36.6) H 07/26/19 06:31 Sodium 132 mmol/L (137-145) L 08/09/19 04:56 Potassium 4.4 mmol/L (3.6-5.0) 08/09/19 04:56 Chloride 89.0 mmol/L (98-107) L 08/09/19 04:56 Carbon Dioxide 23 mmol/L (22-30) 08/09/19 04:56 Anion Gap 24 mmol/L 08/09/19 04:56 BUN 73 mg/dL (7-17) H 08/09/19 04:56 Creatinine 8.0 mg/dL (0.7-1.2) H 08/09/19 04:56 Estimated GFR 7 ml/min 08/09/19 04:56 BUN/Creatinine Ratio 9 % 08/09/19 04:56 Glucose 187 mg/dL (65-100) H 08/09/19 04:56 POC Glucose 224 (70-105) H 08/09/19 05:40 Hemoglobin A1c 5.9 % (4-6) 08/08/19 09:27 Lactic Acid 1.40 mmol/L (0.7-2.0) 08/02/19 15:24 Calcium 9.4 mg/dL (8.4-10.2) 08/09/19 04:56 Phosphorus 7.50 mg/dL (2.5-4.5) H 08/09/19 04:56 Magnesium 2.00 mg/dL (1.7-2.3) 07/30/19 23:32 Iron 58 ug/dL (37-170) 08/03/19 04:15 TIBC 150 mcg/dL (250-450) L 08/03/19 04:15 Ferritin 5729.0 ng/mL (13.0-400.0) H 08/03/19 04:15 Total Bilirubin 0.30 mg/dL (0.1-1.2) 08/09/19 04:56 Direct Bilirubin < 0.2 mg/dL (0-0.2) 07/26/19 06:31 Indirect Bilirubin 0.1 mg/dL 07/26/19 06:31 AST 13 units/L (5-40) 08/09/19 04:56 ALT 5 units/L (7-56) L 08/09/19 04:56 Alkaline Phosphatase 86 units/L (35-129) 08/09/19 04:56 Total Creatine Kinase 43 units/L (30-135) 07/26/19 05:25 Troponin T 0.072 ng/mL (0.00-0.029) H 07/26/19 06:31 C-Reactive Protein 40.30 mg/dL (0.00-1.30) H 08/03/19 10:23 NT-Pro-B Natriuret Pep 78924 pg/mL (0-450) H 07/26/19 06:31 Total Protein 6.5 g/dL (6.3-8.2) 08/09/19 04:56 Albumin 2.6 g/dL (3.9-5) L 08/09/19 04:56 Albumin/Globulin Ratio 0.7 % 08/09/19 04:56 Triglycerides 261 mg/dL (2-149) H 08/03/19 04:15 Cholesterol 91 mg/dL (50-199) 07/26/19 06:31 LDL Cholesterol Direct 30 mg/dL (50-130) L 07/26/19 06:31 HDL Cholesterol 25 mg/dL (40-59) L 07/26/19 06:31 Cholesterol/HDL Ratio 3.64 % 07/26/19 06:31 Amylase 425 units/L (27-131) H 08/06/19 09:20 Lipase 282 units/L (13-60) H 08/08/19 05:14 Procalcitonin 22.18 ng/mL (<0.15) 08/02/19 16:38 HCG, Qual Negative (Negative) 07/30/19 02:40 HCG, Quant < 2 mIU/mL (0-4) 07/26/19 05:25 CSF Appearance Clear 08/01/19 10:40 CSF Color Colorless 08/01/19 10:40 CSF WBC 0 /mm3 (1-10) 08/01/19 10:40 CSF RBC 0 /mm3 (0-0) 08/01/19 10:40 CSF Seg Neutrophils 0 % (0-6) 08/01/19 10:40 CSF Lymphocytes % 0 % (40-80) 08/01/19 10:40 CSF Reactive Lymphs 0 % 08/01/19 10:40 CSF Monocytes % 0 % (15-45) 08/01/19 10:40 CSF Eosinophils % 0 % 08/01/19 10:40 CSF Basophils 0 % 08/01/19 10:40 CSF Pathologist Review C 08/01/19 10:40 CSF Glucose 57 mg/dL 08/01/19 10:40 CSF Total Protein 84 mg/dL 08/01/19 10:40 CSF VDRL Nonreactive (Nonreactive) 08/01/19 10:40 Random Vancomycin 14.9 ug/mL (0-40.0) 08/06/19 05:18 Double Strand DNA Ab See scanned result 07/30/19 11:40 Complement C3 107 mg/dL (83-193) 08/01/19 16:07 Complement C4 32 mg/dL (15-57) 08/01/19 16:07 RPR Nonreactive (Nonreactive) 07/26/19 05:25 Hepatitis A IgM Ab Non-reactive (NonReactive) 07/26/19 10:53 Hep Bs Antigen Non-reactive (Negative) 07/26/19 10:53 Hep B Core IgM Ab Non-reactive (NonReactive) 07/26/19 10:53 Hepatitis C Antibody Non-reactive (NonReactive) 07/26/19 10:53 Blood Type A POSITIVE 08/02/19 12:50 Antibody Screen Negative 08/02/19 12:50 Crossmatch See Detail 08/02/19 12:50 Active Medications - Current Medications Current Medications: Generic Name Dose Route Start Last Admin Trade Name Freq PRN Reason Stop Dose Admin Acetaminophen 650 mg 07/26/19 11:08 08/03/19 21:27 Tylenol PO 650 mg Q6H PRN Administration Pain, Mild (1-3) Albuterol 2.5 mg 07/26/19 15:39 Proventil IH QID PRN Wheezing Lipase/Protease/Amylase 1 each 07/31/19 08:26 Pancreaze 10,500 Unit FEEDTUBE PRN PRN For Clogged Feeding Tube Cyanocobalamin 1,000 mcg 07/27/19 10:00 08/09/19 09:31 Vitamin B-12 PO 1,000 mcg QDAY JOEL Administration Dextrose 25 ml 07/26/19 11:06 07/26/19 12:32 D50w (25gm) Syringe IV 25 ml PRN PRN Administration Hypoglycemia Epoetin Mitch 10,000 unit 07/26/19 10:10 08/09/19 14:15 Procrit IV 10,000 unit FAN PRN Administration hemodialysis Folic Acid 1 mg 07/27/19 10:00 08/09/19 09:35 Folvite PO 1 mg QDAY JOEL Administration Hydralazine HCl 10 mg 07/30/19 20:16 07/31/19 00:05 Apresoline IV 10 mg Q4HR PRN Administration Blood Pressure Hydroxychloroquine Sulfate 200 mg 07/27/19 10:00 08/09/19 09:31 Plaquenil PO 200 mg QDAY JOEL Administration Hydroxyzine HCl 50 mg 07/27/19 10:00 08/09/19 09:33 Atarax PO 50 mg QDAY JOEL Administration MEROPENEM/NS 1 GRAM/100 ML 1 gram in 100 mls @ 100 mls/hr 08/09/19 18:00 Merrem/Ns 1 Gram/100 Ml IV QPM [facility] Protocol Sodium Chloride 100 mls @ 999 mls/hr 08/09/19 09:01 Nacl 0.9% IV FAN PRN Hypotension Insulin Glargine 20 units 08/08/19 22:00 08/08/19 23:03 Lantus SUB-Q 20 units QHS JOEL Administration Insulin Human Lispro 0 unit 08/08/19 13:00 08/09/19 13:12 Humalog SUB-Q Not Given Q6HR [facility] Protocol Labetalol HCl 300 mg 07/26/19 16:00 08/09/19 09:32 Normodyne PO 300 mg BID JOEL Administration Levetiracetam 500 mg 08/09/19 22:00 Keppra PO BID JOEL Losartan Potassium 50 mg 07/27/19 10:00 08/09/19 09:33 Cozaar PO 50 mg QDAY JOEL Administration Morphine Sulfate 1 mg 07/29/19 15:49 08/06/19 11:32 Morphine IV 1 mg Q8H PRN Administration Pain, Moderate (4-6) Mycophenolate Mofetil 500 mg 07/27/19 10:00 08/09/19 09:31 Cellcept PO 500 mg QDAY JOEL Administration Ondansetron HCl 4 mg 07/29/19 23:31 08/06/19 11:32 Zofran IV 4 mg Q6H PRN Administration Nausea And Vomiting Oxycodone/Acetaminophen 1 tab 07/29/19 15:49 08/05/19 21:42 Percocet 5/325 PO 1 tab Q8H PRN Administration Pain, Moderate (4-6) Pantoprazole Sodium 40 mg 08/09/19 10:00 08/09/19 09:34 Protonix PO 40 mg BID JOEL Administration Prednisone 20 mg 07/27/19 10:00 08/09/19 09:34 Deltasone PO 20 mg QDAY JOEL Administration Sevelamer Carbonate 800 mg 07/26/19 16:30 08/09/19 09:34 Renvela PO 800 mg 0730,1630 JOEL Administration Simple Syrup 15 ml 07/31/19 08:26 Simple Syrup FEEDTUBE PRN PRN Hypoglycemia Simple Syrup 30 ml 07/31/19 08:26 Simple Syrup FEEDTUBE PRN PRN Hypoglycemia Sodium Bicarbonate 325 mg 07/31/19 08:26 Sodium Bicarbonate FEEDTUBE PRN PRN For Clogged Feeding Tube Sodium Bicarbonate 650 mg 08/08/19 14:00 08/09/19 14:05 Sodium Bicarbonate PO Not Given TID JOEL Nutrition/Malnutrition Assess - Dietary Evaluation Nutrition/Malnutrition Findings: Nutrition Notes Start: 07/26/19 14:40 Freq: Status: Active Protocol: Document 08/08/19 12:34 RM (Rec: 08/08/19 12:41 RM [email or web address]) Nutrition Notes Initial or Follow up Reassessment Current Diagnosis CKD (stage V CKD),Hypertension Other Pertinent Diagnosis acute pancreatitis, on HD, MRSA, lupus, anemia, wounds Current Diet Clear liquid Labs/Tests Reviewed Pertinent Medications Reviewed Height 5 ft 3 in Weight 62 kg [place] Body Weight (kg) 52.27 BMI 24.2 Subjective/Other Information Pt and pt nurse in room at time of visit. Pt nurse stated that pt has only been drinking water. Noted multiple unopened soda, juice, and hello containers at bedside. Observed no broth container on tray. Pt stated that she drank broth on a previous day and liked it. Denied N/V. Insurance Customer Service Specialist spoke w/industrial gas servicer supervisor to ensure that pt receives broth for lunch. Burn Absent Trauma Absent Minimum of two criteria Yes Energy Intake (severe) < or equal to 50% Estimated Energy Requirement > or equal to 5 days Muscle Mass Mild Depletion (non-severe) Fluid Accumulation Mild (non-severe) #3 Nutrition Diagnosis Malnutrition Diagnosis Progress(for reassessment Continues documentation) #2 Nutrition Diagnosis Increased nutrient needs ( specify in comment below) Diagnosis Progress(for reassessment Continues documentation) #1 Nutrition Diagnosis Inadequate oral intake Diagnosis Progress(for reassessment Continues documentation) Is patient on ventilator? No Is Patient Ambulatory and/or Out of Bed Yes REE-([facility]-ambulatory/OOB) [ 1701.869 [id number]] Calculation Used for Recommendations [facility] Additional Notes PRO: 77 g- 96 g/day (1.2-1.5g/ kg/day AdBW 65kg) Fluid: 1-1.5L/day Nutrition Intervention Change Diet Order: Advance diet when medically able Nutrition Support: D/C'd Goal #1 Diet advancement Goal #2 Wound healing Anticipated Discharge Needs: Unable to determine at this time Follow-Up By: 08/10/19 Additional Comments Follow for diet advacement, PO intakes
[2019-08-09] MEDS: MERREM/NS 1 GRAM/100 ML 1 GRAM/100 ML BAG IV SCH (17:58)
[2019-08-09] MEDS: KEPPRA PO SCH (22:23)
[2019-08-09] MEDS: LANTUS SUB-Q SCH (22:24)
[2019-08-10] MEDS: HumaLOG SUB-Q SCH ×4 (00:24→20:59)
[2019-08-10] MEDS: RENVELA PO SCH ×2 (08:10→17:35)
[2019-08-10] MEDS: SODIUM BICARBONATE PO SCH ×3 (08:10→22:13)
[2019-08-10 08:42] LABS: Hematocrit 30.2 % (30.3-42.9); Hemoglobin 9.7 gm/dl (10.1-14.3); Mean Corpuscular HGB Conc 32 % (30-34); Mean Corpuscular Volume 83 fl (79-97); Red Blood Count 3.63 M/mm3 (3.65-5.03)
[2019-08-10] MEDS: ATARAX PO SCH (09:24)
[2019-08-10] MEDS: PROTONIX PO SCH ×2 (09:25→22:14)
[2019-08-10] MEDS: VITAMIN B-12 PO SCH (09:25)
[2019-08-10] MEDS: KEPPRA PO SCH ×2 (09:25→22:14)
[2019-08-10] MEDS: DELTASONE PO SCH (09:25)
[2019-08-10] MEDS: PLAQUENIL PO SCH (09:26)
[2019-08-10] MEDS: CELLCEPT PO SCH (09:26)
[2019-08-10] MEDS: COZAAR PO SCH (09:26)
[2019-08-10] MEDS: FOLVITE PO SCH (09:26)
[2019-08-10] MEDS: NORMODYNE PO SCH ×2 (09:27→22:21)
[2019-08-10 09:34] LABS: Platelet Count 236 K/mm3 (140-440)
--- NOTE | 2019-08-10 12:10 | Progress Note ---
Assessment and Plan 1. ESRD: On maintenance hemodialysis three times a week, TTS schedule. 2. FEN: Hyperkalemia, K level is better. Monitor lytes. 3. Anemia: Epogen with HD. 4. New onset seizures: On Keppra. 5. Metabolic encephalopathy: Improving. 6. Sepsis. Vulvar abscess. Followed by ID. 7. Acute pancreatitis: Continue supportive care. Seen by GI. 8. History of lupus: On Cellcept, Plaquenil and Prednisone. Examination: General appearance: alert, appears stated age, not in distress HEENT: ATNC Respiratory: Clear to Ascultation Cardiology: regular, S1S2, no murmur Gastrointestinal: normoactive bowel sounds, no tenderness, not distended Integumentary: no rash Neurologic: alert, able to tell her name, able to move extremities, LE weakness noted, some confusion noted Musculoskeletal: no edema Hemodialysis access: L arm AVF Subjective Date of service: 08/10/19 Principal diagnosis: pancreatitis Interval history: Patient was seen and examined at the bedside. Objective - Vital Signs Vital signs: Vital Signs - 12hr 08/10/19 08/10/19 08/10/19 05:22 05:33 09:26 Temperature 97.9 F Pulse Rate 82 82 Respiratory 16 Rate Respiratory 17 Rate [Bilateral Foot] Blood Pressure 98/55 98/56 O2 Sat by Pulse 96 Oximetry 08/10/19 09:27 Temperature Pulse Rate 82 Respiratory Rate Respiratory Rate [Bilateral Foot] Blood Pressure 98/56 O2 Sat by Pulse Oximetry - Lab 08/10/19 08:14 08/09/19 04:56 Most recent lab results Calcium 9.4 mg/dL (8.4-10.2) 08/09/19 04:56 Phosphorus 7.50 mg/dL (2.5-4.5) H 08/09/19 04:56 Magnesium 2.00 mg/dL (1.7-2.3) 07/30/19 23:32 Medications & Allergies - Medications Allergies/Adverse Reactions: Allergies lactose Adverse Reaction (Verified 07/29/19 08:16) Unknown Home Medications: Home Medications Medication Instructions Recorded Confirmed Last Taken Type Gabapentin 300 mg PO 3XW 11/14/18 07/26/19 07/25/19 History ALBUTEROL NEB's [Proventil] 2.5 mg IH QID PRN 07/26/19 07/26/1919 History Amitriptyline [Elavil] 25 mg PO QHS 07/26/19 07/26/19 07/25/19 History Amitriptyline [Elavil] 25 mg PO QHS 07/26/19 07/26/19 07/25/19 History Cyanocobalamin (Vitamin B-12) 1,000 mcg PO QDAY 07/26/19 07/26/19 07/25/19 History [Vitamin B-12] Folic Acid [Folvite] 1 mg PO QDAY 07/26/19 07/26/19 07/25/19 History Hydroxychloroquine [Plaquenil] 200 mg PO QDAY 07/26/19 07/26/19 07/25/19 History Ibuprofen [Motrin] 800 mg PO Q8HR PRN 07/26/19 07/26/19 07/25/19 History Labetalol HCl [Labetalol 300mg TAB] 300 mg PO Q12H 07/26/19 07/26/19 07/25/19 History Losartan [Cozaar] 50 mg PO QDAY 07/26/19 07/26/19 07/25/19 History Mirtazapine 7.5 mg PO QDAY 07/26/19 07/26/19 07/25/19 History Mycophenolate [Cellcept] 500 mg PO QDAY 07/26/19 07/26/19 07/25/19 History Pantoprazole [Protonix] 40 mg PO BID 07/26/19 07/26/19 07/25/19 History Pregabalin [Lyrica] 25 mg PO QDAY 07/26/19 07/26/19 07/25/19 History Sevelamer HCl [Renagel] 800 mg PO BIDWM 07/26/19 07/26/19 07/25/19 History hydrOXYzine HCL [Atarax] 50 mg PO QDAY 07/26/19 07/26/19 07/25/19 History predniSONE [Deltasone] 20 mg PO QDAY 07/26/19 07/26/19 07/25/19 History Active Medications: Generic Name Dose Route Start Last Admin Trade Name Freq PRN Reason Stop Dose Admin Acetaminophen 650 mg 07/26/19 11:08 08/03/19 21:27 Tylenol PO 650 mg Q6H PRN Administration Pain, Mild (1-3) Albuterol 2.5 mg 07/26/19 15:39 Proventil IH QID PRN Wheezing Lipase/Protease/Amylase 1 each 07/31/19 08:26 Tu Diane 10,500 Unit FEEDTUBE PRN PRN For Clogged Feeding Tube Cyanocobalamin 1,000 mcg 07/27/19 10:00 08/10/19 09:25 Vitamin B-12 PO 1,000 mcg QDAY JOEL Administration Dextrose 25 ml 07/26/19 11:06 07/26/19 12:32 D50w (25gm) Syringe IV 25 ml PRN PRN Administration Hypoglycemia Epoetin Mitch 10,000 unit 07/26/19 10:10 08/09/19 14:15 Procrit IV 10,000 unit FAN PRN Administration hemodialysis Folic Acid 1 mg 07/27/19 10:00 08/10/19 09:26 Folvite PO 1 mg QDAY JOEL Administration Hydralazine HCl 10 mg 07/30/19 20:16 07/31/19 00:05 Apresoline IV 10 mg Q4HR PRN Administration Blood Pressure Hydroxychloroquine Sulfate 200 mg 07/27/19 10:00 08/10/19 09:26 Plaquenil PO 200 mg QDAY JOEL Administration Hydroxyzine HCl 50 mg 07/27/19 10:00 08/10/19 09:24 Atarax PO 50 mg QDAY JOEL Administration MEROPENEM/NS 1 GRAM/100 ML 1 gram in 100 mls @ 100 mls/hr 08/09/19 18:00 08/09/19 17:58 Merrem/Ns 1 Gram/100 Ml IV 100 mls/hr QPM JOEL Administration Protocol Sodium Chloride 100 mls @ 999 mls/hr 08/09/19 09:01 Nacl 0.9% IV FAN PRN Hypotension Insulin Glargine 20 units 08/08/19 22:00 08/09/19 22:24 Lantus SUB-Q 20 units QHS JOEL Administration Insulin Human Lispro 0 unit 08/08/19 13:00 08/10/19 11:26 Humalog SUB-Q Not Given Q6HR [facility] Protocol Labetalol HCl 300 mg 07/26/19 16:00 08/10/19 09:27 Normodyne PO Not Given BID JOEL Levetiracetam 500 mg 08/09/19 22:00 08/10/19 09:25 Keppra PO 500 mg BID JOEL Administration Losartan Potassium 50 mg 07/27/19 10:00 08/10/19 09:26 Cozaar PO Not Given QDAY JOEL Morphine Sulfate 1 mg 07/29/19 15:49 08/06/19 11:32 Morphine IV 1 mg Q8H PRN Administration Pain, Moderate (4-6) Mycophenolate Mofetil 500 mg 07/27/19 10:00 08/10/19 09:26 Cellcept PO 500 mg QDAY JOEL Administration Ondansetron HCl 4 mg 07/29/19 23:31 08/06/19 11:32 Zofran IV 4 mg Q6H PRN Administration Nausea And Vomiting Oxycodone/Acetaminophen 1 tab 07/29/19 15:49 08/05/19 21:42 Percocet 5/325 PO 1 tab Q8H PRN Administration Pain, Moderate (4-6) Pantoprazole Sodium 40 mg 08/09/19 10:00 08/10/19 09:25 Protonix PO 40 mg BID JOEL Administration Prednisone 20 mg 07/27/19 10:00 08/10/19 09:25 Deltasone PO 20 mg QDAY JOEL Administration Sevelamer Carbonate 800 mg 07/26/19 16:30 08/10/19 08:10 Renvela PO 800 mg 0730,1630 JOEL Administration Simple Syrup 15 ml 07/31/19 08:26 Simple Syrup FEEDTUBE PRN PRN Hypoglycemia Simple Syrup 30 ml 07/31/19 08:26 Simple Syrup FEEDTUBE PRN PRN Hypoglycemia Sodium Bicarbonate 325 mg 07/31/19 08:26 Sodium Bicarbonate FEEDTUBE PRN PRN For Clogged Feeding Tube Sodium Bicarbonate 650 mg 08/08/19 14:00 08/10/19 08:10 Sodium Bicarbonate PO 650 mg TID JOEL Administration
--- NOTE | 2019-08-10 13:23 | Gastroenterology Progress Note ---
Assessment and Plan 1. severe acute necrotizing pancreatitis - pt with emesis episode this morning; tolerated clears afterwards. mental status waxes and wanes. abd exam benign. defer to surgery regarding diet advancement. would repeat CT scan in 2 weeks. no further inpt recommendations from GI at this time. will sign off, please call as needed, or changes in pt's clinical status. Subjective Date of service: 08/10/19 Principal diagnosis: pancreatitis Interval history: pt with episode of emesis this morning prior to exam; awake but somnolent and not answering questions Objective - Constitutional Vitals: Temp Pulse Resp BP Pulse Ox 97.9 F 82 16 98/56 96 08/10/19 05:33 08/10/19 09:27 08/10/19 05:33 08/10/19 09:27 08/10/19 05:33 General appearance: other (nad, somnolent) - Respiratory Respiratory effort: normal Respiratory: bilateral: CTA - Cardiovascular Rhythm: regular Heart Sounds: Present: S1 & S2 - Gastrointestinal General gastrointestinal: Present: soft, non-tender, non-distended - Neurologic Neurological: disoriented - Labs CBC & Chem 7: 08/10/19 08:14 08/09/19 04:56 Labs: Laboratory Results - last 24 hr 08/09/19 08/10/19 08/10/19 17:33 00:16 06:07 WBC RBC Hgb Hct MCV MCH MCHC RDW Plt Count POC Glucose 330 H 172 H 108 H Amylase Lipase 08/10/19 08/10/19 08/10/19 07:06 08:14 11:33 WBC 23.6 H RBC 3.63 L Hgb 9.7 L Hct 30.2 L MCV 83 MCH 27 L MCHC 32 RDW 18.0 H Plt Count 236 POC Glucose 86 Amylase 784 H Lipase 276 H
--- NOTE | 2019-08-10 13:54 | Progress Note ---
Assessment and Plan (1) Pancreatitis Current Visit: Yes Status: Acute Qualifiers: Chronicity: acute Acute pancreatitis complication: unspecified Plan to address problem: WBC stable and patient without abdominal pain on exam. Monitor for further n/v. 1. continue clear liquids with protein supplement - do not advance 2. gentle IVF 3. c/w abx per ID 4. prn nausea control 5. monitor for fever, tachycardia, hypotension, worsening WBC, abdominal pain - if any of these are present or clinical condition worsening, immediate transfer request should be made to a tertiary care center. 6. Per notes, [facility] was contacted on 08/08/19 to transfer patient. Per hospitalist progress note "Spoke to [facility] both surgery and GI and they recommend continue supportive care here since they will not do any surgery for 4-6 weeks. And to continue monitoring the patient." Thank you, please call with questions Subjective Date of service: 08/10/19 Narrative: Pt seen and examined. States she felt nauseated this am and vomited. Denies nausea now. No abdominal pain. No f/c Objective Vital Signs - 12hr 08/10/19 08/10/19 08/10/19 05:22 05:33 09:26 Temperature 97.9 F Pulse Rate 82 82 Respiratory 16 Rate Respiratory 17 Rate [Bilateral Foot] Blood Pressure 98/55 98/56 O2 Sat by Pulse 96 Oximetry 08/10/19 09:27 Temperature Pulse Rate 82 Respiratory Rate Respiratory Rate [Bilateral Foot] Blood Pressure 98/56 O2 Sat by Pulse Oximetry - General physical appearance Narrative Exam: Gen: Awake and alert. NAD CV; S1, S2+ Resp; even and unlabored Abd: soft, NT, ND Ext: no c/c/e - Labs 08/10/19 08:14 08/09/19 04:56
--- NOTE | 2019-08-10 16:26 | Progress Note ---
Assessment and Plan Assessment and plan: Patient is a 29-year-old -[place]ag[place] woman with a history of ESRD on hemodialysis. SLE/lupus, chronic pain syndrome, MRSA infection and hypertension who presented to [facility] ED on 07/26/2019 with bilateral leg pains, cramping and burning sensation. She was found to have hyperkalemia, fluid overload fevers, right labial abscess, leg wounds, with wound cultures positive for Escherichia coli. During hospital coarse, she developed new onset seizures on 07/30/2019, received Keppra and Ativan. She was seen by Neurologist, Dr. Lu, CT head negative, but patient has remained altered with lethargy, non-sensical speech, since first episode of seizure. Brain MRI done was negative for acute abnormalities. A second neurologist, , was consulted for second opinion on 08/02/2019. She had very high persist Persistent leukocytosis, ID evaluated, ordered C. difficile. She underwent LP with was negative for meningitis. She had CT abd/pelvis done which was concerning for severe necrotizing pancreatitis. General surgeon was consulted and recommended transfer to higher level of care which Dr. Andrea tried but it appears the transfer was denied. * Wound culture - E coli, whittaker sensitive * Blood culture 07/26/2019 no growth today * CSF 08/02/2019 no organisms, no leukocytes * Right labia drainage 08/02/2019 +E coli pansens, Enterococcus Severe acute necrotizing pancreatitis --New onset seizures : On Keppra, Seizure precautions, Follow EEG, CT head negative for acute abnormality MRI brain no acute abnormalities . Neurology following -No evidence of Meningitis on LP lab review --Severe Metabolic encephalopathy; multifactorial Right labia abscess v/s necrotizing fascitis: Staph vs polymicrobial. Right labia drainage 08/02/2019 +whittaker-sensitive E coli and now Enterococcus. BARREL RIFLER HOOK on board. Procalcitonin 22 (high/unclear significance is the setting of ESRD). Repeat Contrasted CT did not include perineum Sepsis, seizures, acute pancreatitis , ESRD. Bun much improved following dialysis --Persistent leukocytosis; Escherichia coli sepsis Continue cefepime ?Reactive vs from acute pancreatitis Improving --Acute pancreatitis on CT/elevated lipase Continue supportive care, GI consulted Surgery INPUT NOTED, Will consider Transfer to tertiary institution --Episode of Coffee-ground emesis; closely monitor H&H GI consult and input noted ?Plaquinel input PRBC for a total of 4 units --History of lupus; resume home medications Possible flareup, monitor Patient on Plaquinel should cover E coli and E faecalis (along as it is not VRE) --Sepsis; Escherichia coli wound infection, likely right vaginal abscess IV antibiotics, supportive care Continue Meropenem IV --Hypotension; If no improvement, consider vasopressors and transferred to ICU --Hyperkalemia; resolved secondary to end-stage renal disease --End-stage renal disease; on hemodialysis HD per schedule, nephrology --Moderate malnutrition/hypoalbuminemia; Dobbhoff placement Tube feeding per protocol --DVT prophylaxis; Lovenox renal dose Plan of care reviewed with the patient's nurse Family members patient's sister/next of kin Mariya Painting at [phone] Disposition; patient is critically ill, Evaluations and recommendations History Interval history: Patient was seen and examined. Follow-up on current diagnosis of AMS. No overnight events reported to me. Imaging, nursing note, chart, labs and old chart reviewed. +n/v Hospitalist Physical - Physical exam Narrative exam: Gen: unkempt, ill appearing NAD, Awake, confused HEENT: scalp lesions with diffuse small 3mm ulcerations Neck: supple, adenopathy, no thyromegaly, no JVD CVS/Heart: RRR, normal S1S2, pulses present bilaterally Chest/Lungs: CTA B, Symmetrical chest expansion, good air entry bilaterally GI/Abdomen: soft, NTND, good bowel sounds, no guarding or rebound /Bladder: no suprapubic tenderness, no CVA or paraspinal tenderness Extermity/Skin: obvious rash, scalp lesions with diffuse small 3mm ulcerations MSK: FROM x 4 Neuro: CN 2-12 grossly intact, not talking, grimaces, makes eye contact but just stares Psych: calm but confused - Constitutional Vitals: Temp Pulse Resp BP Pulse Ox 97.9 F 84 16 98/56 97 08/10/19 05:33 08/10/19 11:57 08/10/19 05:33 08/10/19 09:27 08/10/19 11:57 General appearance: Present: no acute distress, well-nourished Results - Labs CBC & Chem 7: 08/10/19 08:14 08/09/19 04:56 Labs: Laboratory Last Values WBC 23.6 K/mm3 (4.5-11.0) H 08/10/19 08:14 RBC 3.63 M/mm3 (3.65-5.03) L 08/10/19 08:14 Hgb 9.7 gm/dl (10.1-14.3) L 08/10/19 08:14 Hct 30.2 % (30.3-42.9) L 08/10/19 08:14 MCV 83 fl (79-97) 08/10/19 08:14 MCH 27 pg (28-32) L 08/10/19 08:14 MCHC 32 % (30-34) 08/10/19 08:14 RDW 18.0 % (13.2-15.2) H 08/10/19 08:14 Plt Count 236 K/mm3 (140-440) 08/10/19 08:14 Lymph # Tile Installer 08/02/19 09:03 Add Manual Diff Complete 08/08/19 09:27 Total Counted 100 08/08/19 09:27 Seg Neuts % (Manual) 82.0 % (40.0-70.0) H 08/08/19 09:27 Band Neutrophils % 6.0 % 08/08/19 09:27 Lymphocytes % (Manual) 3.0 % (13.4-35.0) L 08/08/19 09:27 Reactive Lymphs % (Man) 0 % 08/08/19 09:27 Monocytes % (Manual) 1.0 % (0.0-7.3) 08/08/19 09:27 Eosinophils % (Manual) 0 % (0.0-4.3) 08/08/19 09:27 Basophils % (Manual) 0 % (0.0-1.8) 08/08/19 09:27 Metamyelocytes % 8.0 % 08/08/19 09:27 Myelocytes % 0 % 08/08/19 09:27 Promyelocytes % 0 % 08/08/19 09:27 Blast Cells % 0 % 08/08/19 09:27 Nucleated RBC % Not Reportable 08/08/19 09:27 Seg Neutrophils # Man 19.3 K/mm3 (1.8-7.7) H 08/08/19 09:27 Band Neutrophils # 1.4 K/mm3 08/08/19 09:27 Lymphocytes # (Manual) 0.7 K/mm3 (1.2-5.4) L 08/08/19 09:27 Abs React Lymphs (Man) 0.0 K/mm3 08/08/19 09:27 Monocytes # (Manual) 0.2 K/mm3 (0.0-0.8) 08/08/19 09:27 Eosinophils # (Manual) 0.0 K/mm3 (0.0-0.4) 08/08/19 09:27 Basophils # (Manual) 0.0 K/mm3 (0.0-0.1) 08/08/19 09:27 Metamyelocytes # 1.9 K/mm3 08/08/19 09:27 Myelocytes # 0.0 K/mm3 08/08/19 09:27 Promyelocytes # 0.0 K/mm3 08/08/19 09:27 Blast Cells # 0.0 K/mm3 08/08/19 09:27 Pathologist Review 08/02/19 09:03 WBC Morphology Not Reportable 08/08/19 09:27 Hypersegmented Neuts Not Reportable 08/08/19 09:27 Hyposegmented Neuts Not Reportable 08/08/19 09:27 Hypogranular Neuts Not Reportable 08/08/19 09:27 Smudge Cells Not Reportable 08/08/19 09:27 Toxic Granulation Not Reportable 08/08/19 09:27 Toxic Vacuolation Not Reportable 08/08/19 09:27 Dohle Bodies Not Reportable 08/08/19 09:27 Pelger-Huet Anomaly Not Reportable 08/08/19 09:27 Rose Rods Not Reportable 08/08/19 09:27 Platelet Estimate Consistent w auto 08/08/19 09:27 Clumped Platelets Not Reportable 08/08/19 09:27 Plt Clumps, EDTA Not Reportable 08/08/19 09:27 Large Platelets Not Reportable 08/08/19 09:27 Giant Platelets Not Reportable 08/08/19 09:27 Platelet Satelliting Not Reportable 08/08/19 09:27 Plt Morphology Comment Not Reportable 08/08/19 09:27 RBC Morphology Not Reportable 08/08/19 09:27 Dimorphic RBCs Not Reportable 08/08/19 09:27 Polychromasia 1+ 08/08/19 09:27 Hypochromasia 1+ 08/08/19 09:27 Poikilocytosis Not Reportable 08/08/19 09:27 Anisocytosis 1+ 08/08/19 09:27 Microcytosis Not Reportable 08/08/19 09:27 Macrocytosis Few 08/08/19 09:27 Spherocytes Not Reportable 08/08/19 09:27 Pappenheimer Bodies Not Reportable 08/08/19 09:27 Sickle Cells Not Reportable 08/08/19 09:27 Target Cells Not Reportable 08/08/19 09:27 Tear Drop Cells Not Reportable 08/08/19 09:27 Ovalocytes Not Reportable 08/08/19 09:27 Helmet Cells Not Reportable 08/08/19 09:27 Benavidez-[place] Bodies Not Reportable 08/08/19 09:27 [place] Rings Not Reportable 08/08/19 09:27 Bk Cells Not Reportable 08/08/19 09:27 Bite Cells Not Reportable 08/08/19 09:27 Crenated Cell Not Reportable 08/08/19 09:27 Elliptocytes Not Reportable 08/08/19 09:27 Acanthocytes (Spur) Not Reportable 08/08/19 09:27 Rouleaux Not Reportable 08/08/19 09:27 Hemoglobin C Crystals Not Reportable 08/08/19 09:27 Schistocytes Not Reportable 08/08/19 09:27 Malaria parasites Not Reportable 08/08/19 09:27 ESR 78 mm/Hr (0-20) 07/26/19 05:25 Dinesh Bodies Not Reportable 08/08/19 09:27 Hem Pathologist Commnt No 08/08/19 09:27 PT 16.7 Sec. (12.2-14.9) H 07/26/19 06:31 INR 1.39 (0.87-1.13) H 07/26/19 06:31 APTT 41.1 Sec. (24.2-36.6) H 07/26/19 06:31 Sodium 132 mmol/L (137-145) L 08/09/19 04:56 Potassium 4.4 mmol/L (3.6-5.0) 08/09/19 04:56 Chloride 89.0 mmol/L (98-107) L 08/09/19 04:56 Carbon Dioxide 23 mmol/L (22-30) 08/09/19 04:56 Anion Gap 24 mmol/L 08/09/19 04:56 BUN 73 mg/dL (7-17) H 08/09/19 04:56 Creatinine 8.0 mg/dL (0.7-1.2) H 08/09/19 04:56 Estimated GFR 7 ml/min 08/09/19 04:56 BUN/Creatinine Ratio 9 % 08/09/19 04:56 Glucose 187 mg/dL (65-100) H 08/09/19 04:56 POC Glucose 86 (70-105) 08/10/19 11:33 Hemoglobin A1c 5.9 % (4-6) 08/08/19 09:27 Lactic Acid 1.40 mmol/L (0.7-2.0) 08/02/19 15:24 Calcium 9.4 mg/dL (8.4-10.2) 08/09/19 04:56 Phosphorus 7.50 mg/dL (2.5-4.5) H 08/09/19 04:56 Magnesium 2.00 mg/dL (1.7-2.3) 07/30/19 23:32 Iron 58 ug/dL (37-170) 08/03/19 04:15 TIBC 150 mcg/dL (250-450) L 08/03/19 04:15 Ferritin 5729.0 ng/mL (13.0-400.0) H 08/03/19 04:15 Total Bilirubin 0.30 mg/dL (0.1-1.2) 08/09/19 04:56 Direct Bilirubin < 0.2 mg/dL (0-0.2) 07/26/19 06:31 Indirect Bilirubin 0.1 mg/dL 07/26/19 06:31 AST 13 units/L (5-40) 08/09/19 04:56 ALT 5 units/L (7-56) L 08/09/19 04:56 Alkaline Phosphatase 86 units/L (35-129) 08/09/19 04:56 Total Creatine Kinase 43 units/L (30-135) 07/26/19 05:25 Troponin T 0.072 ng/mL (0.00-0.029) H 07/26/19 06:31 C-Reactive Protein 40.30 mg/dL (0.00-1.30) H 08/03/19 10:23 NT-Pro-B Natriuret Pep 91335 pg/mL (0-450) H 07/26/19 06:31 Total Protein 6.5 g/dL (6.3-8.2) 08/09/19 04:56 Albumin 2.6 g/dL (3.9-5) L 08/09/19 04:56 Albumin/Globulin Ratio 0.7 % 08/09/19 04:56 Triglycerides 261 mg/dL (2-149) H 08/03/19 04:15 Cholesterol 91 mg/dL (50-199) 07/26/19 06:31 LDL Cholesterol Direct 30 mg/dL (50-130) L 07/26/19 06:31 HDL Cholesterol 25 mg/dL (40-59) L 07/26/19 06:31 Cholesterol/HDL Ratio 3.64 % 07/26/19 06:31 Amylase 784 units/L (27-131) H 08/10/19 07:06 Lipase 276 units/L (13-60) H 08/10/19 07:06 Procalcitonin 22.18 ng/mL (<0.15) 08/02/19 16:38 HCG, Qual Negative (Negative) 07/30/19 02:40 HCG, Quant < 2 mIU/mL (0-4) 07/26/19 05:25 CSF Appearance Clear 08/01/19 10:40 CSF Color Colorless 08/01/19 10:40 CSF WBC 0 /mm3 (1-10) 08/01/19 10:40 CSF RBC 0 /mm3 (0-0) 08/01/19 10:40 CSF Seg Neutrophils 0 % (0-6) 08/01/19 10:40 CSF Lymphocytes % 0 % (40-80) 08/01/19 10:40 CSF Reactive Lymphs 0 % 08/01/19 10:40 CSF Monocytes % 0 % (15-45) 08/01/19 10:40 CSF Eosinophils % 0 % 08/01/19 10:40 CSF Basophils 0 % 08/01/19 10:40 CSF Pathologist Review C 08/01/19 10:40 CSF Glucose 57 mg/dL 08/01/19 10:40 CSF Total Protein 84 mg/dL 08/01/19 10:40 CSF VDRL Nonreactive (Nonreactive) 08/01/19 10:40 Random Vancomycin 14.9 ug/mL (0-40.0) 08/06/19 05:18 Double Strand DNA Ab See scanned result 07/30/19 11:40 Complement C3 107 mg/dL (83-193) 08/01/19 16:07 Complement C4 32 mg/dL (15-57) 08/01/19 16:07 RPR Nonreactive (Nonreactive) 07/26/19 05:25 Hepatitis A IgM Ab Non-reactive (NonReactive) 07/26/19 10:53 Hep Bs Antigen Non-reactive (Negative) 07/26/19 10:53 Hep B Core IgM Ab Non-reactive (NonReactive) 07/26/19 10:53 Hepatitis C Antibody Non-reactive (NonReactive) 07/26/19 10:53 Blood Type A POSITIVE 08/02/19 12:50 Antibody Screen Negative 08/02/19 12:50 Crossmatch See Detail 08/02/19 12:50 Active Medications - Current Medications Current Medications: Generic Name Dose Route Start Last Admin Trade Name Freq PRN Reason Stop Dose Admin Acetaminophen 650 mg 07/26/19 11:08 08/03/19 21:27 Tylenol PO 650 mg Q6H PRN Administration Pain, Mild (1-3) Albuterol 2.5 mg 07/26/19 15:39 Proventil IH QID PRN Wheezing Lipase/Protease/Amylase 1 each 07/31/19 08:26 Pancreaze 10,500 Unit FEEDTUBE PRN PRN For Clogged Feeding Tube Cyanocobalamin 1,000 mcg 07/27/19 10:00 08/10/19 09:25 Vitamin B-12 PO 1,000 mcg QDAY JOEL Administration Dextrose 25 ml 07/26/19 11:06 07/26/19 12:32 D50w (25gm) Syringe IV 25 ml PRN PRN Administration Hypoglycemia Epoetin Mitch 10,000 unit 07/26/19 10:10 08/09/19 14:15 Procrit IV 10,000 unit FAN PRN Administration hemodialysis Folic Acid 1 mg 07/27/19 10:00 08/10/19 09:26 Folvite PO 1 mg QDAY JOEL Administration Hydralazine HCl 10 mg 07/30/19 20:16 07/31/19 00:05 Apresoline IV 10 mg Q4HR PRN Administration Blood Pressure Hydroxychloroquine Sulfate 200 mg 07/27/19 10:00 08/10/19 09:26 Plaquenil PO 200 mg QDAY JOEL Administration Hydroxyzine HCl 50 mg 07/27/19 10:00 08/10/19 09:24 Atarax PO 50 mg QDAY JEOL Administration MEROPENEM/NS 1 GRAM/100 ML 1 gram in 100 mls @ 100 mls/hr 08/09/19 18:00 17:58 Merrem/Ns 1 Gram/100 Ml IV 100 mls/hr QPM JOEL Administration Protocol Sodium Chloride 100 mls @ 999 mls/hr 08/09/19 09:01 Nacl 0.9% IV FAN PRN Hypotension Insulin Glargine 20 units 08/08/19 22:00 08/09/19 22:24 Lantus SUB-Q 20 units QHS [facility] Administration Insulin Human Lispro 0 unit 08/08/19 13:00 08/10/19 11:26 Humalog SUB-Q Not Given Q6HR [facility] Protocol Labetalol HCl 300 mg 07/26/19 16:00 08/10/19 09:27 Normodyne PO Not Given BID [facility] Levetiracetam 500 mg 08/09/19 22:00 08/10/19 09:25 Keppra PO 500 mg BID [facility] Administration Losartan Potassium 50 mg 07/27/19 10:00 08/10/19 09:26 Cozaar PO Not Given QDAY [facility] Morphine Sulfate 1 mg 07/29/19 15:49 08/06/19 11:32 Morphine IV 1 mg Q8H PRN Administration Pain, Moderate (4-6) Mycophenolate Mofetil 500 mg 07/27/19 10:00 08/10/19 09:26 Cellcept PO 500 mg QDAY JOEL Administration Ondansetron HCl 4 mg 07/29/19 23:31 08/06/19 11:32 Zofran IV 4 mg Q6H PRN Administration Nausea And Vomiting Oxycodone/Acetaminophen 1 tab 07/29/19 15:49 08/05/19 21:42 Percocet 5/325 PO 1 tab Q8H PRN Administration Pain, Moderate (4-6) Pantoprazole Sodium 40 mg 08/09/19 10:00 08/10/19 09:25 Protonix PO 40 mg BID JOEL Administration Prednisone 20 mg 07/27/19 10:00 08/10/19 09:25 Deltasone PO 20 mg QDAY JOEL Administration Sevelamer Carbonate 800 mg 07/26/19 16:30 08/10/19 08:10 Renvela PO 800 mg 0730,1630 JOEL Administration Simple Syrup 15 ml 07/31/19 08:26 Simple Syrup FEEDTUBE PRN PRN Hypoglycemia Simple Syrup 30 ml 07/31/19 08:26 Simple Syrup FEEDTUBE PRN PRN Hypoglycemia Sodium Bicarbonate 325 mg 07/31/19 08:26 Sodium Bicarbonate FEEDTUBE PRN PRN For Clogged Feeding Tube Sodium Bicarbonate 650 mg 08/08/19 14:00 08/10/19 13:25 Sodium Bicarbonate PO 650 mg TID JOEL Administration Nutrition/Malnutrition Assess - Dietary Evaluation Nutrition/Malnutrition Findings: Nutrition Notes Start: 07/26/19 14 :40 Freq: Status: Active Protocol: Document 08/10/19 09:44 LM (Rec: 08/10/19 10:49 LM [id number]) Nutrition Notes Initial or Follow up Reassessment Current Diagnosis CKD (stage V CKD),Hypertension Other Pertinent Diagnosis acute pancreatitis, on HD, MRSA, lupus, anemia, wounds Current Diet Clear liquid Labs/Tests Reviewed Pertinent Medications Reviewed Height 5 ft 3 in Weight 62.6 kg [place] Body Weight (kg) 52.27 BMI 24.4 Subjective/Other Information Noted pt had multiple unopened Ensure clears, sprite, broth, and jello in her room. Pt not alert/lethargic to respond to questions. Percent of energy/protein needs met: 0%/0% Burn Absent Trauma Absent Minimum of two criteria Yes Energy Intake (severe) < or equal to 50% Estimated Energy Requirement > or equal to 5 days Muscle Mass Mild Depletion (non-severe) Fluid Accumulation Mild (non-severe) #3 Nutrition Diagnosis Malnutrition Diagnosis Progress(for reassessment Continues documentation) #2 Nutrition Diagnosis Increased nutrient needs ( specify in comment below) Diagnosis Progress(for reassessment Continues documentation) #1 Nutrition Diagnosis Inadequate oral intake As Evidenced by Signs and Symptoms Per room visit pt conuming 0% of liquids (broth, sprite, ensure clear, jello). Diagnosis Progress(for reassessment Continues documentation) Is patient on ventilator? No Is Patient Ambulatory and/or Out of Bed Yes REE-([facility]-ambulatory/OOB) [ 1709.669 [id number]] Calculation Used for Recommendations [facility] Additional Notes PRO: 77 g- 96 g/day (1.2-1.5g/ kg/day AdBW 65kg) Fluid: 1-1.5L/day Nutrition Intervention Change Diet Order: Start TF or TPN Goal #1 Once TF or TPN starts meet at least 80% of kcal/PRO needs via TF or TPN. Goal #2 Wound healing Anticipated Discharge Needs: Unable to determine at this time Follow-Up By: 08/11/19 Additional Comments Consult for TF/TPN.
--- NOTE | 2019-08-10 17:14 | Progress Note ---
Assessment and Plan Cultures: Wound culture - E coli, whittaker sensitive Blood culture 07/26/2019 no growth today CSF 08/02/2019 no organisms, no leukocytes Right labia drainage 08/02/2019 +E coli pansens, Enterococcus A/P: 49 yo F PMHx ESRD on HD, lupus, previous MRSA infection now with wound infection, abdominal pain and seizures 1. Acute sepsis - leukocytosis with leukomoid reaction, some better 52-->47-->23K. Possible source necrotizing pancreatitis +/- right labia abscess +/- less likely sinusitis 2. Presumedly Complicated Pancreatitis: improving; ? CT with generalized edema is noted throughout the pancreas with surrounding moderate inflammation. No distinct pancreatic lesion is identified. Lipase 241. Repeat contrasted CT with severely abnormal pancreas with multiple focal areas of nonperfusion in the distal pancreas. Necrotizing pancreatitis could be considered. There is moderate to large fluid throughout the base of the mesentery and left abdomen which is grossly unchanged. 3. Right labia abscess v/s necrotizing fascitis: Staph vs polymicrobial. Right labia drainage 08/02/2019 +whittaker-sensitive E coli and now Enterococcus. ALMOND ROASTER on board. Procalcitonin 22 (high/unclear significance is the setting of ESRD). R epeat Contrasted CT did not include perineum 4. Wound infection right buttocks 5. Lupus - on plaquenil, cellcept and prednisone ? flare 6. New onset Seizures - ?? unclear etiology 7. AMS? received ativan for agitation overnight ? due to sepsis ?lupus. CT head with left maxillary sinusitis. Since patient is immunocompromised will close monitor for OI. S/p LP CSF with no evidence of meningitis. WBC=0, CSF glucose and protein pending. 8. Severe anemia ? plaquenil ? GI bleed 9. Immunocompromised host 10. ESRD on HD - renally dose antibiotics Recs: - continue meropenem IV renally adjusted for necrotizing pancreatitis and labia infection - D7 of 10-14 depending on clinical progression - monitor leukocytosis Will follow. Marly Laura MD Infectious Diseases Environmental Conservation Officer [facility] M [phone] O [phone] Subjective Date of service: 08/10/19 Principal diagnosis: pancreatitis Interval history: Patient feels better. No fever. Objective - Exam Narrative Exam: General appearance: alert in NAD Eyes: anicteric sclerae, clear conjunctivae HENT: Atraumatic; oropharynx clear dry mucosa Lungs: CTA CV: RRR Abdomen: Soft,no tender Extremities: no edema, no cyanosis Skin: No rash. +multiple scattered old scars and +right hip superficial wound Gen: +right labia no swelling Psych: no agitated Neuro: alert - Constitutional Vitals: Vital Signs Temp Pulse Resp BP Pulse Ox 97.9 F 84 16 98/56 97 08/10/19 05:33 08/10/19 11:57 08/10/19 05:33 08/10/19 09:27 08/10/19 11:57 Temperature -Last 24 Hours Temperature 97.9 F Temperature 97.6 F Temperature 97.9 F - Labs CBC & Chem 7: 08/10/19 08:14 08/09/19 04:56 Labs: Abnormal lab results 08/09/19 08/10/19 08/10/19 Range/Units 17:33 00:16 06:07 WBC (4.5-11.0) K/mm3 RBC (3.65-5.03) M/mm3 Hgb (10.1-14.3) gm/dl Hct (30.3-42.9) % MCH (28-32) pg RDW (13.2-15.2) % POC Glucose 330 H 172 H 108 H (70-105) Amylase (27-131) units/L Lipase (13-60) units/L 08/10/19 08/10/19 Range/Units 07:06 08:14 WBC 23.6 H (4.5-11.0) K/mm3 RBC 3.63 L (3.65-5.03) M/mm3 Hgb 9.7 L (10.1-14.3) gm/dl Hct 30.2 L (30.3-42.9) % MCH 27 L (28-32) pg RDW 18.0 H (13.2-15.2) % POC Glucose (70-105) Amylase 784 H (27-131) units/L Lipase 276 H (13-60) units/L
[2019-08-10] MEDS: MERREM/NS 1 GRAM/100 ML 1 GRAM/100 ML BAG IV SCH (17:35)
[2019-08-10] MEDS: NACL 0.45% 1000 ML 1,000 ML IV SCH (17:36)
[2019-08-11] MEDS: HumaLOG SUB-Q SCH ×4 (00:25→17:23)
[2019-08-11] MEDS: LANTUS SUB-Q SCH (00:25)
[2019-08-11] MEDS: SODIUM BICARBONATE PO SCH ×3 (08:22→22:10)
[2019-08-11] MEDS: RENVELA PO SCH ×2 (08:22→16:34)
--- NOTE | 2019-08-11 09:52 | Progress Note ---
Assessment and Plan (1) Pancreatitis Current Visit: Yes Status: Acute Qualifiers: Chronicity: acute Acute pancreatitis complication: unspecified Plan to address problem: Pt without n/v or abdominal pain. 1. adv to full liquid diet with protein supplements. May continue this diet on discharge, would not advance further 2. gentle IVF 3. c/w abx per ID 4. prn nausea control 5. monitor for fever, tachycardia, hypotension, worsening WBC, abdominal pain - if any of these are present or clinical condition worsening, immediate transfer request should be made to a tertiary care center. 6. Per notes, [facility] was contacted on 08/08/19 to transfer patient. Per hospitalist progress note "Spoke to [facility] both surgery and GI and they recommend continue supportive care here since they will not do any surgery for 4-6 weeks. And to continue monitoring the patient." 7. Repeat labs in am No surgical intervention at this time. Thank you, please call with questions Dr. Myers with be rounding Thursday through Thursday. Subjective Date of service: 08/11/19 Narrative: Patient seen and examined. She has no abdominal pain. She denies any further vomiting and has no nausea. She's been tolerating her clear liquids. She's been having bowel movements. She states that she has been up and out of bed. Objective Vital Signs - 12hr 08/10/19 08/10/19 08/11/19 22:21 23:01 06:46 Temperature 98.7 F 98.0 F Pulse Rate 92 H 101 H 95 H Respiratory 22 16 Rate Blood Pressure 108/59 112/67 124/73 O2 Sat by Pulse 98 99 Oximetry - General physical appearance Narrative Exam: Gen.: Awake, alert, oriented 2. NAD ENT: no scleral icterus or conjunctival pallor. Abrasions to scalp CV: S1, S2 present Respiratory: No audible wheezes Abdomen: Soft, nondistended, nontender. No rebound, rigidity, guarding Extremities: No clubbing, cyanosis, edema. Left upper extremity AV fistula - Labs 08/10/19 08:14 08/09/19 04:56
--- NOTE | 2019-08-11 11:58 | Progress Note ---
Assessment and Plan Cultures: Wound culture - E coli, whittaker sensitive Blood culture 07/26/2019 no growth today CSF 08/02/2019 no organisms, no leukocytes Right labia drainage 08/02/2019 +E coli pansens, Enterococcus A/P: 49 yo F PMHx ESRD on HD, lupus, previous MRSA infection now with wound infection, abdominal pain and seizures 1. Acute sepsis - leukocytosis with leukomoid reaction, some better 52-->47-->23K. Possible source necrotizing pancreatitis +/- right labia abscess +/- less likely sinusitis 2. Presumedly Complicated Pancreatitis: improving; ? CT with generalized edema is noted throughout the pancreas with surrounding moderate inflammation. No distinct pancreatic lesion is identified. Lipase 241. Repeat contrasted CT with severely abnormal pancreas with multiple focal areas of nonperfusion in the distal pancreas. Necrotizing pancreatitis could be considered. There is moderate to large fluid throughout the base of the mesentery and left abdomen which is grossly unchanged. 3. Right labia abscess v/s necrotizing fascitis: Staph vs polymicrobial. Right labia drainage 08/02/2019 +whittaker-sensitive E coli and now Enterococcus. SAP PI ARCHITECT on board. Procalcitonin 22 (high/unclear significance is the setting of ESRD). Repeat Contrasted CT did not include perineum 4. Wound infection right buttocks 5. Lupus - on plaquenil, cellcept and prednisone ? flare 6. New onset Seizures - ?? unclear etiology 7. AMS? received ativan for agitation overnight ? due to sepsis ?lupus. CT head with left maxillary sinusitis. Since patient is immunocompromised will close monitor for OI. S/p LP CSF with no evidence of meningitis. WBC=0, CSF glucose and protein pending. 8. Severe anemia ? plaquenil ? GI bleed 9. Immunocompromised host 10. ESRD on HD - renally dose antibiotics Recs: - continue meropenem IV renally adjusted for necrotizing pancreatitis and labia infection - D8 of 10-14 depending on clinical progression - monitor leukocytosis Will follow. Almas Merino MD [facility] M: [phone] O: [phone] F: [phone] Subjective Date of service: 08/11/19 Principal diagnosis: pancreatitis Interval history: Afebrile, white coutn stable. No new issues. Objective - Exam Narrative Exam: General appearance: alert in NAD Eyes: anicteric sclerae, clear conjunctivae HENT: Atraumatic; oropharynx clear dry mucosa +NGT Lungs: CTA CV: RRR Abdomen: Soft, tenderness diffusely Extremities: no edema, no cyanosis Skin: No rash. +multiple scattered old scars and +right hip superficial wound Gen: +right labia swelling with small opening not draining purulence Psych: somnolent Neuro: somnolent - Constitutional Vitals: Vital Signs Temp Pulse Resp BP Pulse Ox 98.0 F 102 H 16 112/58 99 08/11/19 09:15 08/11/19 10:15 08/11/19 09:15 08/11/19 10:15 08/11/19 06:46 Temperature -Last 24 Hours Temperature 98.0 F Temperature 98.0 F Temperature 98.7 F Temperature 98.1 F - Labs CBC & Chem 7: 08/10/19 08:14 08/09/19 04:56
--- NOTE | 2019-08-11 12:01 | Progress Note ---
Assessment and Plan 1. ESRD: On maintenance hemodialysis three times a week, TTS schedule. 2. FEN: Hyperkalemia, K level is better. Monitor lytes. 3. Anemia: Epogen with HD. 4. New onset seizures: On Keppra. 5. Metabolic encephalopathy: Improving. 6. Sepsis. Vulvar abscess. Followed by ID. 7. Acute pancreatitis: Continue supportive care. Seen by GI. 8. History of lupus: On Cellcept, Plaquenil and Prednisone. Examination: General appearance: alert, appears stated age, not in distress HEENT: ATNC Respiratory: Clear to Ascultation Cardiology: regular, S1S2, no murmur Gastrointestinal: normoactive bowel sounds, no tenderness, not distended Integumentary: no rash Neurologic: alert, able to tell her name, able to move extremities, LE weakness noted, some confusion noted Musculoskeletal: no edema Hemodialysis access: L arm AVF Subjective Date of service: 08/11/19 Principal diagnosis: pancreatitis Interval history: Patient was seen and examined at the bedside. Objective - Vital Signs Vital signs: Vital Signs - 12hr 08/11/19 08/11/19 08/11/19 06:46 09:15 09:25 Temperature 98.0 F 98.0 F Pulse Rate 95 H 98 H 93 H Respiratory 16 16 Rate Blood Pressure 124/73 121/62 128/66 O2 Sat by Pulse 99 Oximetry 08/11/19 08/11/19 08/11/19 09:30 09:53 10:00 Temperature Pulse Rate 95 H 97 H 100 H Respiratory Rate Blood Pressure 128/73 124/73 128/72 O2 Sat by Pulse Oximetry 08/11/19 10:15 Temperature Pulse Rate 102 H Respiratory Rate Blood Pressure 112/58 O2 Sat by Pulse Oximetry - Lab 08/10/19 08:14 08/09/19 04:56 Most recent lab results Calcium 9.4 mg/dL (8.4-10.2) 08/09/19 04:56 Phosphorus 7.50 mg/dL (2.5-4.5) H 08/09/19 04:56 Magnesium 2.00 mg/dL (1.7-2.3) 07/30/19 23:32 Medications & Allergies - Medications Allergies/Adverse Reactions: Allergies lactose Adverse Reaction (Verified 07/29/19 08:16) Unknown Home Medications: Home Medications Medication Instructions Recorded Confirmed Last Taken Type Gabapentin 300 mg PO 3XW 11/14/18 07/26/19 07/25/19 History ALBUTEROL NEB's [Proventil] 2.5 mg IH QID PRN 07/26/19 07/26/19 07/25/19 History Amitriptyline [Elavil] 25 mg PO QHS 07/26/19 07/26/19 07/25/19 History Amitriptyline [Elavil] 25 mg PO QHS 07/26/19 07/26/19 07/25/19 History Cyanocobalamin (Vitamin B-12) 1,000 mcg PO QDAY 07/26/19 07/26/19 07/25/19 History [Vitamin B-12] Folic Acid [Folvite] 1 mg PO QDAY 07/26/19 07/26/19 07/25/19 History Hydroxychloroquine [Plaquenil] 200 mg PO QDAY 07/26/19 07/26/19 07/25/19 History Ibuprofen [Motrin] 800 mg PO Q8HR PRN 07/26/19 07/26/19 07/25/19 History Labetalol HCl [Labetalol 300mg TAB] 300 mg PO Q12H 07/26/19 07/26/19 07/25/19 History Losartan [Cozaar] 50 mg PO QDAY 07/26/19 07/26/19 07/25/19 History Mirtazapine 7.5 mg PO QDAY 07/26/19 07/26/19 07/25/19 History Mycophenolate [Cellcept] 500 mg PO QDAY 07/26/19 07/26/19 07/25/19 History Pantoprazole [Protonix] 40 mg PO BID 07/26/19 07/26/19 07/25/19 History Pregabalin [Lyrica] 25 mg PO QDAY 07/26/19 07/26/19 07/25/19 History Sevelamer HCl [Renagel] 800 mg PO BIDWM 07/26/19 07/26/19 07/25/19 History hydrOXYzine HCL [Atarax] 50 mg PO QDAY 07/26/19 07/26/19 07/25/19 History predniSONE [Deltasone] 20 mg PO QDAY 07/26/19 07/26/19 07/25/19 History Active Medications: Generic Name Dose Route Start Last Admin Trade Name Freq PRN Reason Stop Dose Admin Acetaminophen 650 mg 07/26/19 11:08 08/03/19 21:27 Tylenol PO 650 mg Q6H PRN Administration Pain, Mild (1-3) Albuterol 2.5 mg 07/26/19 15:39 Proventil IH QID PRN Wheezing Lipase/Protease/Amylase 1 each 07/31/19 08:26 Pancreaze 10,500 Unit FEEDTUBE PRN PRN For Clogged Feeding Tube Cyanocobalamin 1,000 mcg 07/27/19 10:00 08/10/19 09:25 Vitamin B-12 PO 1,000 mcg QDAY JOEL Administration Dextrose 25 ml 07/26/19 11:06 07/26/19 12:32 D50w (25gm) Syringe IV 25 ml PRN PRN Administration Hypoglycemia Epoetin Mitch 10,000 unit 07/26/19 10:10 08/09/19 14:15 Procrit IV 10,000 unit FAN PRN Administration hemodialysis Folic Acid 1 mg 07/27/19 10:00 08/10/19 09:26 Folvite PO 1 mg QDAY JOEL Administration Hydralazine HCl 10 mg 07/30/19 20:16 07/31/19 00:05 Apresoline IV 10 mg Q4HR PRN Administration Blood Pressure Hydroxychloroquine Sulfate 200 mg 07/27/19 10:00 08/10/19 09:26 Plaquenil PO 200 mg QDAY JOEL Administration Hydroxyzine HCl 50 mg 07/27/19 10:00 08/10/19 09:24 Atarax PO 50 mg QDAY JOEL Administration MEROPENEM/NS 1 GRAM/100 ML 1 gram in 100 mls @ 100 mls/hr 08/09/19 18:00 08/10/19 17:35 Merrem/Ns 1 Gram/100 Ml IV 100 mls/hr QPM JOEL Administration Protocol Sodium Chloride 100 mls @ 999 mls/hr 08/09/19 09:01 Nacl 0.9% IV FAN PRN Hypotension Sodium Chloride 1,000 mls @ 50 mls/hr 08/10/19 17:00 08/10/19 17:36 Nacl 0.45% 1000 Ml IV 50 mls/hr DIRECT JOEL Administration Insulin Glargine 20 units 10/07/19 22:00 08/11/19 00:25 Lantus SUB-Q Not Given QHS [facility] Insulin Human Lispro 0 unit 08/08/19 13:00 08/11/19 06:37 Humalog SUB-Q Not Given Q6HR [facility] Protocol Labetalol HCl 300 mg 07/26/19 16:00 08/10/19 22:21 Normodyne PO Not Given BID [facility] Levetiracetam 500 mg 08/09/19 22:00 08/10/19 22:14 Keppra PO 500 mg BID [facility] Administration Losartan Potassium 50 mg 07/27/19 10:00 08/10/19 09:26 Cozaar PO Not Given QDAY [facility] Mycophenolate Mofetil 500 mg 07/27/19 10:00 08/10/19 09:26 Cellcept PO 500 mg QDAY [facility] Administration Ondansetron HCl 4 mg 07/29/19 23:31 08/06/19 11:32 Zofran IV 4 mg Q6H PRN Administration Nausea And Vomiting Oxycodone/Acetaminophen 1 tab 07/29/19 15:49 08/05/19 21:42 Percocet 5/325 PO 1 tab Q8H PRN Administration Pain, Moderate (4-6) Pantoprazole Sodium 40 mg 08/09/19 10:00 08/10/19 22:14 Protonix PO 40 mg BID [facility] Administration Prednisone 20 mg 07/27/19 10:00 08/10/19 09:25 Deltasone PO 20 mg QDAY [facility] Administration Sevelamer Carbonate 800 mg 07/26/19 16:30 08/11/19 08:22 Renvela PO 800 mg 0730,1630 JOEL Administration Simple Syrup 15 ml 07/31/19 08:26 Simple Syrup FEEDTUBE PRN PRN Hypoglycemia Simple Syrup 30 ml 07/31/19 08:26 Simple Syrup FEEDTUBE PRN PRN Hypoglycemia Sodium Bicarbonate 325 mg 07/31/19 08:26 Sodium Bicarbonate FEEDTUBE PRN PRN For Clogged Feeding Tube Sodium Bicarbonate 650 mg 08/08/19 14:00 08/11/19 08:22 Sodium Bicarbonate PO 650 mg TID JOEL Administration
[2019-08-11] MEDS: PROCRIT IV PRN (12:50)
[2019-08-11] MEDS: CELLCEPT PO SCH (14:05)
[2019-08-11] MEDS: NORMODYNE PO SCH ×2 (14:06→22:10)
[2019-08-11] MEDS: PLAQUENIL PO SCH (14:06)
[2019-08-11] MEDS: ATARAX PO SCH (14:07)
[2019-08-11] MEDS: VITAMIN B-12 PO SCH (14:07)
[2019-08-11] MEDS: DELTASONE PO SCH (14:07)
[2019-08-11] MEDS: COZAAR PO SCH (14:07)
[2019-08-11] MEDS: FOLVITE PO SCH (14:08)
[2019-08-11] MEDS: KEPPRA PO SCH ×2 (14:08→22:11)
[2019-08-11] MEDS: PROTONIX PO SCH ×2 (14:08→22:10)
[2019-08-11] MEDS: NACL 0.45% 1000 ML 1,000 ML IV SCH (14:09)
[2019-08-11] MEDS: MERREM/NS 1 GRAM/100 ML 1 GRAM/100 ML BAG IV SCH (17:23)
--- NOTE | 2019-08-11 18:09 | Progress Note ---
Assessment and Plan Assessment and plan: Patient is a 29-year-old -[place] woman with a history of ESRD on hemodialysis. SLE/lupus, chronic pain syndrome, MRSA infection and hypertension who presented to [facility] ED on 07/26/2019 with bilateral leg pains, cramping and burning sensation. She was found to have hyperkalemia, fluid overload fevers, right labial abscess, leg wounds, with wound cultures positive for Escherichia coli. During hospital coarse, she developed new onset seizures on 07/30/2019, received Keppra and Ativan. She was seen by Neurologist, Dr. Lu, CT head negative, but patient has remained altered with lethargy, non-sensical speech, since first episode of seizure. Brain MRI done was negative for acute abnormalities. A second neurologist, , was consulted for second opinion on 08/02/2019. She had very high persist Persistent leukocytosis, ID evaluated, ordered C. difficile. She underwent LP with was negative for meningitis. She had CT abd/pelvis done which was concerning for severe necrotizing pancreatitis. General surgeon was consulted and recommended transfer to higher level of care which Dr. Andrea tried but it appears the transfer was denied. * Wound culture - E coli, whittaker sensitive * Blood culture 07/26/2019 no growth today * CSF 08/02/2019 no organisms, no leukocytes * Right labia drainage 08/02/2019 +E coli whittaker-sens, Enterococcus Severe acute necrotizing pancreatitis: General Surgeon, input noted, also d/w Dr. Nguyen, continue medical management New onset seizures: On Keppra, Severe Acute Metabolic encephalopathy; multifactorial E. coli Right labia abscess with suspected necrotizing fascitis s/p Right labia drainage 08/02/2019 +whittaker-sensitive E coli and now Enterococcus. [employer] input noted Sepsis from right labia abscess: treated with ABX, ID is following ESRD on HD: Nephrology is following Acute blood loss anemia, s/p 4 units of PRBC: GI input noted, continue PPI SLE with systemic skin lesion, even on scalp: continue home medication, treat symptomatically Hypotension resolved Hyperkalemia; resolved, secondary to end-stage renal disease End-stage renal disease; on hemodialysis Moderate malnutrition/hypoalbuminemia; Kiln Maintenance DVT prophylaxis; no a/c due to anemia History Interval history: Patient was seen and examined. Follow-up on current diagnosis of AMS. No overnight events reported to me. Imaging, nursing note, chart, labs and old chart reviewed. N/V resolved, patient is actually talking and following some commands. She is so deconditioned. Hospitalist Physical - Physical exam Narrative exam: Gen: unkempt, ill appearing NAD, Awake, talking and answering questions HEENT: scalp lesions with diffuse small 3mm ulcerations Neck: supple, adenopathy, no thyromegaly, no JVD CVS/Heart: Regular tachycardia, normal S1S2, pulses present bilaterally Chest/Lungs: CTA B, Symmetrical chest expansion, good air entry bilaterally GI/Abdomen: soft, NTND, good bowel sounds, no guarding or rebound /Bladder: no suprapubic tenderness, no CVA or paraspinal tenderness Extermity/Skin: obvious rash, scalp lesions with diffuse small 3mm ulcerations MSK: FROM x 4 Neuro: CN 2-12 grossly intact, no new focal deficits Psych: calm but confused - Constitutional Vitals: Temp Pulse Resp BP Pulse Ox 99.0 F 101 H 18 109/68 100 08/11/19 16:54 08/11/19 16:54 08/11/19 16:54 08/11/19 16:54 08/11/19 16:54 General appearance: Present: no acute distress, well-nourished Results - Labs CBC & Chem 7: 08/10/19 08:14 08/09/19 04:56 Labs: Laboratory Last Values WBC 23.6 K/mm3 (4.5-11.0) H 08/10/19 08:14 RBC 3.63 M/mm3 (3.65-5.03) L 08/10/19 08:14 Hgb 9.7 gm/dl (10.1-14.3) L 08/10/19 08:14 Hct 30.2 % (30.3-42.9) L 08/10/19 08:14 MCV 83 fl (79-97) 08/10/19 08:14 MCH 27 pg (28-32) L 08/10/19 08:14 MCHC 32 % (30-34) 08/10/19 08:14 RDW 18.0 % (13.2-15.2) H 08/10/19 08:14 Plt Count 236 K/mm3 (140-440) 08/10/19 08:14 Lymph # Clinical Nursing Director 08/02/19 09:03 Add Manual Diff Complete 08/08/19 09:27 Total Counted 100 08/08/19 09:27 Seg Neuts % (Manual) 82.0 % (40.0-70.0) H 08/08/19 09:27 Band Neutrophils % 6.0 % 08/08/19 09:27 Lymphocytes % (Manual) 3.0 % (13.4-35.0) L 08/08/19 09:27 Reactive Lymphs % (Man) 0 % 08/08/19 09:27 Monocytes % (Manual) 1.0 % (0.0-7.3) 08/08/19 09:27 Eosinophils % (Manual) 0 % (0.0-4.3) 08/08/19 09:27 Basophils % (Manual) 0 % (0.0-1.8) 08/08/19 09:27 Metamyelocytes % 8.0 % 08/08/19 09:27 Myelocytes % 0 % 08/08/19 09:27 Promyelocytes % 0 % 08/08/19 09:27 Blast Cells % 0 % 08/08/19 09:27 Nucleated RBC % Not Reportable 08/08/19 09:27 Seg Neutrophils # Man 19.3 K/mm3 (1.8-7.7) H 08/08/19 09:27 Band Neutrophils # 1.4 K/mm3 08/08/19 09:27 Lymphocytes # (Manual) 0.7 K/mm3 (1.2-5.4) L 08/08/19 09:27 Abs React Lymphs (Man) 0.0 K/mm3 08/08/19 09:27 Monocytes # (Manual) 0.2 K/mm3 (0.0-0.8) 08/08/19 09:27 Eosinophils # (Manual) 0.0 K/mm3 (0.0-0.4) 08/08/19 09:27 Basophils # (Manual) 0.0 K/mm3 (0.0-0.1) 08/08/19 09:27 Metamyelocytes # 1.9 K/mm3 08/08/19 09:27 Myelocytes # 0.0 K/mm3 08/08/19 09:27 Promyelocytes # 0.0 K/mm3 08/08/19 09:27 Blast Cells # 0.0 K/mm3 08/08/19 09:27 Pathologist Review 08/02/19 09:03 WBC Morphology Not Reportable 08/08/19 09:27 Hypersegmented Neuts Not Reportable 08/08/19 09:27 Hyposegmented Neuts Not Reportable 08/08/19 09:27 Hypogranular Neuts Not Reportable 08/08/19 09:27 Smudge Cells Not Reportable 08/08/19 09:27 Toxic Granulation Not Reportable 08/08/19 09:27 Toxic Vacuolation Not Reportable 08/08/19 09:27 Dohle Bodies Not Reportable 08/08/19 09:27 Pelger-Huet Anomaly Not Reportable 08/08/19 09:27 Rose Rods Not Reportable 08/08/19 09:27 Platelet Estimate Consistent w auto 08/08/19 09:27 Clumped Platelets Not Reportable 08/08/19 09:27 Plt Clumps, EDTA Not Reportable 08/08/19 09:27 Large Platelets Not Reportable 08/08/19 09:27 Giant Platelets Not Reportable 08/08/19 09:27 Platelet Satelliting Not Reportable 08/08/19 09:27 Plt Morphology Comment Not Reportable 08/08/19 09:27 RBC Morphology Not Reportable 08/08/19 09:27 Dimorphic RBCs Not Reportable 08/08/19 09:27 Polychromasia 1+ 08/08/19 09:27 Hypochromasia 1+ 08/08/19 09:27 Poikilocytosis Not Reportable 08/08/19 09:27 Anisocytosis 1+ 08/08/19 09:27 Microcytosis Not Reportable 08/08/19 09:27 Macrocytosis Few 08/08/19 09:27 Spherocytes Not Reportable 08/08/19 09:27 Pappenheimer Bodies Not Reportable 08/08/19 09:27 Sickle Cells Not Reportable 08/08/19 09:27 Target Cells Not Reportable 08/08/19 09:27 Tear Drop Cells Not Reportable 08/08/19 09:27 Ovalocytes Not Reportable 08/08/19 09:27 Helmet Cells Not Reportable 08/08/19 09:27 Benavidez-Heil Bodies Not Reportable 08/08/19 09:27 [place] Rings Not Reportable 08/08/19 09:27 Bk Cells Not Reportable 08/08/19 09:27 Bite Cells Not Reportable 08/08/19 09:27 Crenated Cell Not Reportable 08/08/19 09:27 Elliptocytes Not Reportable 08/08/19 09:27 Acanthocytes (Spur) Not Reportable 08/08/19 09:27 Rouleaux Not Reportable 08/08/19 09:27 Hemoglobin C Crystals Not Reportable 08/08/19 09:27 Schistocytes Not Reportable 08/08/19 09:27 Malaria parasites Not Reportable 08/08/19 09:27 ESR 78 mm/Hr (0-20) 07/26/19 05:25 Dinesh Bodies Not Reportable 08/08/19 09:27 Hem Pathologist Commnt No 08/08/19 09:27 PT 16.7 Sec. (12.2-14.9) H 07/26/19 06:31 INR 1.39 (0.87-1.13) H 07/26/19 06:31 APTT 41.1 Sec. (24.2-36.6) H 07/26/19 06:31 Sodium 132 mmol/L (137-145) L 08/09/19 04:56 Potassium 4.4 mmol/L (3.6-5.0) 08/09/19 04:56 Chloride 89.0 mmol/L (98-107) L 08/09/19 04:56 Carbon Dioxide 23 mmol/L (22-30) 08/09/19 04:56 Anion Gap 24 mmol/L 08/09/19 04:56 BUN 73 mg/dL (7-17) H 08/09/19 04:56 Creatinine 8.0 mg/dL (0.7-1.2) H 08/09/19 04:56 Estimated GFR 7 ml/min 08/09/19 04:56 BUN/Creatinine Ratio 9 % 08/09/19 04:56 Glucose 187 mg/dL (65-100) H 08/09/19 04:56 POC Glucose 64 (70-105) L 08/11/19 17:08 Hemoglobin A1c 5.9 % (4-6) 08/08/19 09:27 Lactic Acid 1.40 mmol/L (0.7-2.0) 08/02/19 15:24 Calcium 9.4 mg/dL (8.4-10.2) 08/09/19 04:56 Phosphorus 7.50 mg/dL (2.5-4.5) H 08/09/19 04:56 Magnesium 2.00 mg/dL (1.7-2.3) 07/30/19 23:32 Iron 58 ug/dL (37-170) 08/03/19 04:15 TIBC 150 mcg/dL (250-450) L 08/03/19 04:15 Ferritin 5729.0 ng/mL (13.0-400.0) H 08/03/19 04:15 Total Bilirubin 0.30 mg/dL (0.1-1.2) 08/09/19 04:56 Direct Bilirubin < 0.2 mg/dL (0-0.2) 07/26/19 06:31 Indirect Bilirubin 0.1 mg/dL 07/26/19 06:31 AST 13 units/L (5-40) 08/09/19 04:56 ALT 5 units/L (7-56) L 08/09/19 04:56 Alkaline Phosphatase 86 units/L (35-129) 08/09/19 04:56 Total Creatine Kinase 43 units/L (30-135) 07/26/19 05:25 Troponin T 0.072 ng/mL (0.00-0.029) H 07/26/19 06:31 C-Reactive Protein 40.30 mg/dL (0.00-1.30) H 08/03/19 10:23 NT-Pro-B Natriuret Pep 51587 pg/mL (0-450) H 07/26/19 06:31 Total Protein 6.5 g/dL (6.3-8.2) 08/09/19 04:56 Albumin 2.6 g/dL (3.9-5) L 08/09/19 04:56 Albumin/Globulin Ratio 0.7 % 08/09/19 04:56 Triglycerides 261 mg/dL (2-149) H 08/03/19 04:15 Cholesterol 91 mg/dL (50-199) 07/26/19 06:31 LDL Cholesterol Direct 30 mg/dL (50-130) L 07/26/19 06:31 HDL Cholesterol 25 mg/dL (40-59) L 07/26/19 06:31 Cholesterol/HDL Ratio 3.64 % 07/26/19 06:31 Amylase 784 units/L (27-131) H 08/10/19 07:06 Lipase 276 units/L (13-60) H 08/10/19 07:06 Procalcitonin 22.18 ng/mL (<0.15) 08/02/19 16:38 HCG, Qual Negative (Negative) 07/30/19 02:40 HCG, Quant < 2 mIU/mL (0-4) 07/26/19 05:25 CSF Appearance Clear 08/01/19 10:40 CSF Color Colorless 08/01/19 10:40 CSF WBC 0 /mm3 (1-10) 08/01/19 10:40 CSF RBC 0 /mm3 (0-0) 08/01/19 10:40 CSF Seg Neutrophils 0 % (0-6) 08/01/19 10:40 CSF Lymphocytes % 0 % (40-80) 08/01/19 10:40 CSF Reactive Lymphs 0 % 08/01/19 10:40 CSF Monocytes % 0 % (15-45) 08/01/19 10:40 CSF Eosinophils % 0 % 08/01/19 10:40 CSF Basophils 0 % 08/01/19 10:40 CSF Pathologist Review C 08/01/19 10:40 CSF Glucose 57 mg/dL 08/01/19 10:40 CSF Total Protein 84 mg/dL 08/01/19 10:40 CSF VDRL Nonreactive (Nonreactive) 08/01/19 10:40 Random Vancomycin 14.9 ug/mL (0-40.0) 08/06/19 05:18 Double Strand DNA Ab See scanned result 07/30/19 11:40 Complement C3 107 mg/dL (83-193) 08/01/19 16:07 Complement C4 32 mg/dL (15-57) 08/01/19 16:07 RPR Nonreactive (Nonreactive) 07/26/19 05:25 Hepatitis A IgM Ab Non-reactive (NonReactive) 07/26/19 10:53 Hep Bs Antigen Non-reactive (Negative) 07/26/19 10:53 Hep B Core IgM Ab Non-reactive (NonReactive) 07/26/19 10:53 Hepatitis C Antibody Non-reactive (NonReactive) 07/26/19 10:53 Blood Type A POSITIVE 08/02/19 12:50 Antibody Screen Negative 08/02/19 12:50 Crossmatch See Detail 08/02/19 12:50 Active Medications - Current Medications Current Medications: Generic Name Dose Route Start Last Admin Trade Name Freq PRN Reason Stop Dose Admin Acetaminophen 650 mg 07/26/19 11:08 08/03/19 21:27 Tylenol PO 650 mg Q6H PRN Administration Pain, Mild (1-3) Albuterol 2.5 mg 07/26/19 15:39 Proventil IH QID PRN Wheezing Lipase/Protease/Amylase 1 each 07/31/19 08:26 Pancreaze 10,500 Unit FEEDTUBE PRN PRN For Clogged Feeding Tube Cyanocobalamin 1,000 mcg 07/27/19 10:00 08/11/19 14:07 Vitamin B-12 PO 1,000 mcg QDAY JOEL Administration Dextrose 25 ml 07/26/19 11:06 07/26/19 12:32 D50w (25gm) Syringe IV 25 ml PRN PRN Administration Hypoglycemia Epoetin Mitch 10,000 unit 07/26/19 10:10 08/11/19 12:50 Procrit IV 10,000 unit FAN PRN Administration hemodialysis Folic Acid 1 mg 07/27/19 10:00 08/11/19 14:08 Folvite PO 1 mg QDAY JOEL Administration Hydralazine HCl 10 mg 07/30/19 20:16 07/31/19 00:05 Apresoline IV 10 mg Q4HR PRN Administration Blood Pressure Hydroxychloroquine Sulfate 200 mg 07/27/19 10:00 08/11/19 14:06 Plaquenil PO 200 mg QDAY JOEL Administration Hydroxyzine HCl 50 mg 07/27/19 10:00 08/11/19 14:07 Atarax PO 50 mg QDAY JOEL Administration MEROPENEM/NS 1 GRAM/100 ML 1 gram in 100 mls @ 100 mls/hr 08/09/19 18:00 08/11/19 17:23 Merrem/Ns 1 Gram/100 Ml IV 100 mls/hr QPM JOEL Administration Protocol Sodium Chloride 100 mls @ 999 mls/hr 08/09/19 09:01 Nacl 0.9% IV FAN PRN Hypotension Sodium Chloride 1,000 mls @ 50 mls/hr 08/10/19 17:00 08/11/19 14:09 Nacl 0.45% 1000 Ml IV 50 mls/hr DIRECT JOEL Administration Insulin Glargine 20 units 08/08/19 22:00 08/11/19 00:25 Lantus SUB-Q Not Given QHS JOEL Insulin Human Lispro 0 unit 08/08/19 13:00 08/11/19 17:23 Humalog SUB-Q Not Given Q6HR [facility] Protocol Labetalol HCl 300 mg 07/26/19 16:00 08/11/19 14:06 Normodyne PO 300 mg BID JOEL Administration Levetiracetam 500 mg 08/09/19 22:00 08/11/19 14:08 Keppra PO 500 mg BID JOEL Administration Losartan Potassium 50 mg 07/27/19 10:00 08/11/19 14:07 Cozaar PO 50 mg QDAY JOEL Administration Mycophenolate Mofetil 500 mg 07/27/19 10:00 08/11/19 14:05 Cellcept PO 500 mg QDAY JOEL Administration Ondansetron HCl 4 mg 07/29/19 23:31 08/06/19 11:32 Zofran IV 4 mg Q6H PRN Administration Nausea And Vomiting Oxycodone/Acetaminophen 1 tab 07/29/19 15:49 08/05/19 21:42 Percocet 5/325 PO 1 tab Q8H PRN Administration Pain, Moderate (4-6) Pantoprazole Sodium 40 mg 08/09/19 10:00 08/11/19 14:08 Protonix PO 40 mg BID JOEL Administration Prednisone 20 mg 07/27/19 10:00 08/11/19 14:07 Deltasone PO 20 mg QDAY JOEL Administration Sevelamer Carbonate 800 mg 07/26/19 16:30 08/11/19 16:34 Renvela PO Not Given 0730,1630 JOEL Simple Syrup 15 ml 07/31/19 08:26 Simple Syrup FEEDTUBE PRN PRN Hypoglycemia Simple Syrup 30 ml 07/31/19 08:26 Simple Syrup FEEDTUBE PRN PRN Hypoglycemia Sodium Bicarbonate 325 mg 07/31/19 08:26 Sodium Bicarbonate FEEDTUBE PRN PRN For Clogged Feeding Tube Sodium Bicarbonate 650 mg 08/08/19 14:00 08/11/19 14:04 Sodium Bicarbonate PO 650 mg TID JOEL Administration Nutrition/Malnutrition Assess - Dietary Evaluation Nutrition/Malnutrition Findings: Nutrition Notes Start: 07/26/19 14:40 Freq: Status: Active Protocol: Document 08/11/19 13:57 MK (Rec: 08/11/19 14:35 MK [id number]) Co-Sign 08/11/19 13:57 KH Nutrition Notes Initial or Follow up Reassessment Current Diagnosis CKD (stage V CKD),Hypertension Other Pertinent Diagnosis acute pancreatitis, on HD, MRSA, lupus, anemia, wounds Current Diet Full liquid Labs/Tests Reviewed Pertinent Medications Reviewed Height 5 ft 3 in Weight 60.6 kg [facility] Body Weight (kg) 52.27 BMI 23.6 Weight change and time frame weighed pt after dialysis at 60.6 kg Subjective/Other Information FU for intakes. Pt tech reports eating broth for breakfast and one juice. Pt did not eat lunch while getting dialysis. Spoke with RN and CM about potential TPN. Paged Dr. Nguyen, waiting for call back. After dialysis paid intern observed pt more alert and 3 empty juices and 3 full Ensure Clears. Pt stated appetitie has improved. Pt agreed to try Nepro 1x day. Percent of energy/protein needs met: <25%/<25% Burn Absent Trauma Absent Minimum of two criteria Yes Energy Intake (severe) < or equal to 50% Estimated Energy Requirement > or equal to 5 days Muscle Mass Mild Depletion (non-severe) Fluid Accumulation Mild (non-severe) #3 Nutrition Diagnosis Malnutrition Diagnosis Progress(for reassessment Continues documentation) #2 Nutrition Diagnosis Increased nutrient needs ( specify in comment below) Diagnosis Progress(for reassessment Continues documentation) #1 Nutrition Diagnosis Inadequate oral intake As Evidenced by Signs and Symptoms Per tech, pt consumbed broth and juice. Diagnosis Progress(for reassessment Improved documentation) Is patient on ventilator? No Is Patient Ambulatory and/or Out of Bed No REE-([facility]-confined to bed) 1556.304 Calculation Used for Recommendations [facility] Additional Notes PRO: 77 g- 96 g/day (1.2-1.5g/ kg/day AdBW 65kg) Fluid: 1-1.5L/day Nutrition Intervention Change Diet Order: Continue Full Liquid Add Supplement/Snack (indicate name/kcal Nepro 1x day /protein ) Ensure Clean 1x Provides kCal: 665 Provides Protein (gm) 27 Goal #1 Meet at least 75% of needs via PO and ONS intakes Goal #2 Initiate EN/TPN if needs aren' t being met by 08/12 Anticipated Discharge Needs: Unable to determine at this time Follow-Up By: 08/12/19 Additional Comments FU for intakes, tolerance of Nepro, and POC
[2019-08-12] MEDS: LANTUS SUB-Q SCH (01:07)
[2019-08-12] MEDS: HumaLOG SUB-Q SCH ×4 (01:07→17:04)
[2019-08-12] MEDS: RENVELA PO SCH ×2 (09:15→17:04)
[2019-08-12] MEDS: SODIUM BICARBONATE PO SCH ×3 (09:15→21:36)
--- NOTE | 2019-08-12 10:18 | Progress Note ---
Assessment and Plan 1. ESRD: On maintenance hemodialysis three times a week, TTS schedule. 2. FEN: Monitor lytes. 3. Anemia: Epogen with HD. 4. New onset seizures: On Keppra. 5. Metabolic encephalopathy: Improving. 6. Sepsis. Vulvar abscess. Followed by ID. 7. Acute pancreatitis: Continue supportive care. Seen by GI. 8. History of lupus: On Cellcept, Plaquenil and Prednisone. Examination: General appearance: alert, appears stated age, not in distress HEENT: ATNC Respiratory: Clear to Ascultation Cardiology: regular, S1S2, no murmur Gastrointestinal: normoactive bowel sounds, no tenderness, not distended Integumentary: no rash Neurologic: alert, able to move extremities, some confusion noted Musculoskeletal: no edema Hemodialysis access: L arm AVF Subjective Date of service: 08/12/19 Principal diagnosis: pancreatitis Interval history: Patient was seen and examined at the bedside. Objective - Vital Signs Vital signs: Vital Signs - 12hr 08/12/19 08/12/19 00:20 06:20 Temperature 97.7 F 99.0 F Pulse Rate 102 H Respiratory 22 18 Rate Blood Pressure 105/56 129/82 O2 Sat by Pulse 98 Oximetry - Lab 08/12/19 Unknown 08/12/19 Unknown Most recent lab results Calcium 9.4 mg/dL (8.4-10.2) 08/09/19 04:56 Phosphorus 7.50 mg/dL (2.5-4.5) H 08/09/19 04:56 Magnesium 2.00 mg/dL (1.7-2.3) 07/30/19 23:32 Medications & Allergies - Medications Allergies/Adverse Reactions: Allergies lactose Adverse Reaction (Verified 07/29/19 08:16) Unknown Home Medications: Home Medications Medication Instructions Recorded Confirmed Last Taken Type Gabapentin 300 mg PO 3XW 11/14/18 07/26/19 07/25/19 History ALBUTEROL NEB's [Proventil] 2.5 mg IH QID PRN 07/26/19 07/26/19 07/25/19 History Amitriptyline [Elavil] 25 mg PO QHS 07/26/19 07/26/19 07/25/19 History Amitriptyline [Elavil] 25 mg PO QHS 07/26/19 07/26/19 07/25/19 History Cyanocobalamin (Vitamin B-12) 1,000 mcg PO QDAY 07/26/19 07/26/19 07/25/19 History [Vitamin B-12] Folic Acid [Folvite] 1 mg PO QDAY 07/26/19 07/26/19 07/25/19 History Hydroxychloroquine [Plaquenil] 200 mg PO QDAY 07/26/19 07/26/19 07/25/19 History Ibuprofen [Motrin] 800 mg PO Q8HR PRN 07/26/19 07/26/19 07/25/19 History Labetalol HCl [Labetalol 300mg TAB] 300 mg PO Q12H 07/26/19 07/26/19 07/25/19 History Losartan [Cozaar] 50 mg PO QDAY 07/26/19 07/26/19 07/25/19 History Mirtazapine 7.5 mg PO QDAY 07/26/19 07/26/19 07/25/19 History Mycophenolate [Cellcept] 500 mg PO QDAY 07/26/19 07/26/19 07/25/19 History Pantoprazole [Protonix] 40 mg PO BID 07/26/19 07/26/19 07/25/19 History Pregabalin [Lyrica] 25 mg PO QDAY 07/26/19 07/26/19 07/25/19 History Sevelamer HCl [Renagel] 800 mg PO BIDWM 07/26/19 07/26/19 07/25/19 History hydrOXYzine HCL [Atarax] 50 mg PO QDAY 07/26/19 07/26/19 07/25/19 History predniSONE [Deltasone] 20 mg PO QDAY 07/26/19 07/26/19 07/25/19 History Active Medications: Generic Name Dose Route Start Last Admin Trade Name Freq PRN Reason Stop Dose Admin Acetaminophen 650 mg 07/26/19 11:08 08/03/19 21:27 Tylenol PO 650 mg Q6H PRN Administration Pain, Mild (1-3) Albuterol 2.5 mg 07/26/19 15:39 Proventil IH QID PRN Wheezing Lipase/Protease/Amylase 1 each 07/31/19 08:26 Pancremarcella Diane 10,500 Unit FEEDTUBE PRN PRN For Clogged Feeding Tube Cyanocobalamin 1,000 mcg 07/27/19 10:00 08/11/19 14:07 Vitamin B-12 PO 1,000 mcg QDAY JOEL Administration Dextrose 25 ml 07/26/19 11:06 07/26/19 12:32 D50w (25gm) Syringe IV 25 ml PRN PRN Administration Hypoglycemia Epoetin Mitch 10,000 unit 07/26/19 10:10 08/11/19 12:50 Procrit IV 10,000 unit FAN PRN Administration hemodialysis Folic Acid 1 mg 07/27/19 10:00 08/11/19 14:08 Folvite PO 1 mg QDAY JOEL Administration Hydralazine HCl 10 mg 07/30/19 20:16 07/31/19 00:05 Apresoline IV 10 mg Q4HR PRN Administration Blood Pressure Hydroxychloroquine Sulfate 200 mg 07/27/19 10:00 08/11/19 14:06 Plaquenil PO 200 mg QDAY JOEL Administration Hydroxyzine HCl 50 mg 07/27/19 10:00 08/11/19 14:07 Atarax PO 50 mg QDAY JOEL Administration MEROPENEM/NS 1 GRAM/100 ML 1 gram in 100 mls @ 100 mls/hr 08/09/19 18:00 08/11/19 17:23 Merrem/Ns 1 Gram/100 Ml IV 100 mls/hr QPM JOEL Administration Protocol Sodium Chloride 100 mls @ 999 mls/hr 08/09/19 09:01 Nacl 0.9% IV FAN PRN Hypotension Sodium Chloride 1,000 mls @ 50 mls/hr 08/10/19 17:00 08/11/19 14:09 Nacl 0.45% 1000 Ml IV 50 mls/hr DIRECT JOEL Administration Insulin Glargine 20 units 08/08/19 22:00 08/12/19 01:07 Lantus SUB-Q Not Given QHS [facility] Insulin Human Lispro 0 unit 08/08/19 13:00 08/12/19 07:04 Humalog SUB-Q Not Given Q6HR [facility] Protocol Labetalol HCl 300 mg 07/26/19 16:00 08/11/19 22:10 Normodyne PO Not Given BID [facility] Levetiracetam 500 mg 08/09/19 22:00 08/11/19 22:11 Keppra PO 500 mg BID JOEL Administration Losartan Potassium 50 mg 07/27/19 10:00 08/11/19 14:07 Cozaar PO 50 mg QDAY JOEL Administration Mycophenolate Mofetil 500 mg 07/27/19 10:00 08/11/19 14:05 Cellcept PO 500 mg QDAY JOEL Administration Ondansetron HCl 4 mg 07/29/19 23:31 08/06/19 11:32 Zofran IV 4 mg Q6H PRN Administration Nausea And Vomiting Oxycodone/Acetaminophen 1 tab 07/29/19 15:49 08/05/19 21:42 Percocet 5/325 PO 1 tab Q8H PRN Administration Pain, Moderate (4-6) Pantoprazole Sodium 40 mg 08/09/19 10:00 08/11/19 22:10 Protonix PO 40 mg BID JOEL Administration Prednisone 20 mg 07/27/19 10:00 08/11/19 14:07 Deltasone PO 20 mg QDAY JOEL Administration Sevelamer Carbonate 800 mg 07/26/19 16:30 08/12/19 09:15 Renvela PO 800 mg 0730,1630 JOEL Administration Simple Syrup 15 ml 07/31/19 08:26 Simple Syrup FEEDTUBE PRN PRN Hypoglycemia Simple Syrup 30 ml 07/31/19 08:26 Simple Syrup FEEDTUBE PRN PRN Hypoglycemia Sodium Bicarbonate 325 mg 07/31/19 08:26 Sodium Bicarbonate FEEDTUBE PRN PRN For Clogged Feeding Tube Sodium Bicarbonate 650 mg 08/08/19 14:00 08/12/19 09:15 Sodium Bicarbonate PO 650 mg TID JOEL Administration
[2019-08-12] MEDS: CELLCEPT PO SCH (10:53)
[2019-08-12] MEDS: ATARAX PO SCH (10:53)
[2019-08-12] MEDS: PROTONIX PO SCH ×2 (10:54→21:36)
[2019-08-12] MEDS: PLAQUENIL PO SCH (10:54)
[2019-08-12] MEDS: DELTASONE PO SCH (10:54)
[2019-08-12] MEDS: VITAMIN B-12 PO SCH (10:54)
[2019-08-12] MEDS: COZAAR PO SCH (10:54)
[2019-08-12] MEDS: FOLVITE PO SCH (10:54)
[2019-08-12] MEDS: NORMODYNE PO SCH ×2 (10:54→21:36)
[2019-08-12] MEDS: KEPPRA PO SCH ×2 (10:54→21:36)
--- NOTE | 2019-08-12 14:37 | Progress Note ---
Assessment and Plan Cultures: Wound culture - E coli, whittaker sensitive Blood culture 07/26/2019 no growth today CSF 08/02/2019 no organisms, no leukocytes Right labia drainage 08/02/2019 +E coli pansens, Enterococcus A/P: 49 yo F PMHx ESRD on HD, lupus, previous MRSA infection now with wound infection, abdominal pain and seizures 1. Acute sepsis - leukocytosis with leukomoid reaction, some better 52-->47-->23K. Possible source necrotizing pancreatitis +/- right labia abscess +/- less likely sinusitis 2. Presumedly Complicated Pancreatitis: improving; ? CT with generalized edema is noted throughout the pancreas with surrounding moderate inflammation. No distinct pancreatic lesion is identified. Lipase 241. Repeat contrasted CT with severely abnormal pancreas with multiple focal areas of nonperfusion in the distal pancreas. Necrotizing pancreatitis could be considered. There is moderate to large fluid throughout the base of the mesentery and left abdomen which is grossly unchanged. 3. Right labia abscess v/s necrotizing fascitis: Staph vs polymicrobial. Right labia drainage 08/02/2019 +whittaker-sensitive E coli and now Enterococcus. OLIVE BRINE TESTER on board. Procalcitonin 22 (high/unclear significance is the setting of ESRD). Repeat Contrasted CT did not include perineum 4. Wound infection right buttocks 5. Lupus - on plaquenil, cellcept and prednisone ? flare 6. New onset Seizures - ?? unclear etiology 7. AMS? received ativan for agitation overnight ? due to sepsis ?lupus. CT head with left maxillary sinusitis. Since patient is immunocompromised will close monitor for OI. S/p LP CSF with no evidence of meningitis. WBC=0, CSF glucose and protein pending. 8. Severe anemia ? plaquenil ? GI bleed 9. Immunocompromised host 10. ESRD on HD - renally dose antibiotics Recs: - continue meropenem IV renally adjusted for necrotizing pancreatitis and labia infection - D9 of 10-14 depending on clinical progression - monitor leukocytosis Will follow. Almas Merino MD [facility] ([facility] M: [phone] O: [phone] F: [phone] Subjective Date of service: 08/12/19 Principal diagnosis: pancreatitis Interval history: Afebrile, white count stable. No new issues. PICC line placed, no acute complaints. Objective - Exam Narrative Exam: General appearance: alert in NAD Eyes: anicteric sclerae, clear conjunctivae HENT: Atraumatic; oropharynx clear dry mucosa +NGT Lungs: CTA CV: RRR Abdomen: Soft, tenderness diffusely Extremities: no edema, no cyanosis Skin: No rash. +multiple scattered old scars and +right hip superficial wound Gen: +right labia swelling with small opening not draining purulence Psych: somnolent Neuro: somnolent - Constitutional Vitals: Vital Signs Temp Pulse Resp BP Pulse Ox 98.1 F 53 L 20 133/90 100 08/12/19 12:40 08/12/19 12:40 08/12/19 12:40 08/12/19 12:40 08/12/19 12:40 Temperature -Last 24 Hours Temperature 98.1 F Temperature 99.0 F Temperature 97.7 F Temperature 99.0 F - Labs CBC & Chem 7: 08/10/19 08:14 08/09/19 04:56 Labs: Abnormal lab results 08/11/19 08/12/19 Range/Units 17:08 00:45 POC Glucose 64 L 106 H (70-105)
[2019-08-12] MEDS: NACL 0.45% 1000 ML 1,000 ML IV SCH (15:04)
[2019-08-12 16:27] LABS: Hematocrit 26.3 % (30.3-42.9); Hemoglobin 8.4 gm/dl (10.1-14.3); Mean Corpuscular HGB Conc 32 % (30-34); Mean Corpuscular Volume 83 fl (79-97); Platelet Count 192 K/mm3 (140-440); Red Blood Count 3.18 M/mm3 (3.65-5.03); Red Cell Distribution Width 17.6 % (13.2-15.2)
--- NOTE | 2019-08-12 16:52 | Progress Note ---
Assessment and Plan Assessment and plan: Patient is a 29-year-old -Citizen Of [place] woman with a history of ESRD on hemodialysis. SLE/lupus, chronic pain syndrome, MRSA infection and hypertension who presented to [facility] ED on 07/26/2019 with bilateral leg pains, cramping and burning sensation. She was found to have hyperkalemia, fluid overload fevers, right labial abscess, leg wounds, with wound cultures positive for Escherichia coli. During hospital coarse, she developed new onset seizures on 07/30/2019, received Keppra and Ativan. She was seen by Neurologist, Dr. Lu, CT head negative, but patient has remained altered with lethargy, non-sensical speech, since first episode of seizure. Brain MRI done was negative for acute abnormalities. A second neurologist, , was consulted for second opinion on 08/02/2019. She had very high persist Persistent leukocytosis, ID evaluated, ordered C. difficile. She underwent LP with was negative for meningitis. She had CT abd/pelvis done which was concerning for severe necrotizing pancreatitis. General surgeon was consulted and recommended transfer to higher level of care which Dr. Andrea tried but it appears the transfer was denied. * Wound culture - E coli, whittaker sensitive * Blood culture 07/26/2019 no growth today * CSF 08/02/2019 no organisms, no leukocytes * Right labia drainage 08/02/2019 +E coli whittaker-sens, Enterococcus Severe acute necrotizing pancreatitis: General Surgeon, input noted, also d/w Dr. Nguyen, continue medical management New onset seizures: On Keppra, Severe Acute Metabolic encephalopathy; multifactorial E. coli Right labia abscess with suspected necrotizing fascitis s/p Right labia drainage 08/02/2019 +whittaker-sensitive E coli and now Enterococcus. 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 Myers, start PICC line and TPN d/w sister Jasmin at bedside History Interval history: Patient was seen and examined. Follow-up on current diagnosis of AMS. No overnight events reported to me. Imaging, nursing note, chart, labs and old chart reviewed. N/V resolved, patient is actually talking and following some commands. She is so deconditioned. Hospitalist Physical - Physical exam Narrative exam: Gen: unkempt, ill appearing NAD, Awake, talking and answering questions HEENT: scalp lesions with diffuse small 3mm ulcerations Neck: supple, adenopathy, no thyromegaly, no JVD CVS/Heart: Regular tachycardia, normal S1S2, pulses present bilaterally Chest/Lungs: CTA B, Symmetrical chest expansion, good air entry bilaterally GI/Abdomen: soft, NTND, good bowel sounds, no guarding or rebound /Bladder: no suprapubic tenderness, no CVA or paraspinal tenderness Extermity/Skin: obvious rash, scalp lesions with diffuse small 3mm ulcerations MSK: FROM x 4 Neuro: CN 2-12 grossly intact, no new focal deficits Psych: calm but confused - Constitutional Vitals: Temp Pulse Resp BP Pulse Ox 98.1 F 53 L 20 133/90 100 08/12/19 12:40 08/12/19 12:40 08/12/19 12:40 08/12/19 12:40 08/12/19 12:40 General appearance: Present: no acute distress, well-nourished Results - Labs CBC & Chem 7: 08/12/19 Unknown 08/09/19 04:56 Labs: Laboratory Last Values WBC 21.6 K/mm3 (4.5-11.0) H 08/12/19 Unknown RBC 3.18 M/mm3 (3.65-5.03) L 08/12/19 Unknown Hgb 8.4 gm/dl (10.1-14.3) L 08/12/19 Unknown Hct 26.3 % (30.3-42.9) L 08/12/19 Unknown MCV 83 fl (79-97) 08/12/19 Unknown MCH 27 pg (28-32) L 08/12/19 Unknown MCHC 32 % (30-34) 08/12/19 Unknown RDW 17.6 % (13.2-15.2) H 08/12/19 Unknown Plt Count 192 K/mm3 (140-440) 08/12/19 Unknown Lymph # Data Communications Analyst 08/02/19 09:03 Add Manual Diff Complete 08/08/19 09:27 Total Counted 100 08/08/19 09:27 Seg Neuts % (Manual) 82.0 % (40.0-70.0) H 08/08/19 09:27 Band Neutrophils % 6.0 % 08/08/19 09:27 Lymphocytes % (Manual) 3.0 % (13.4-35.0) L 08/08/19 09:27 Reactive Lymphs % (Man) 0 % 08/08/19 09:27 Monocytes % (Manual) 1.0 % (0.0-7.3) 08/08/19 09:27 Eosinophils % (Manual) 0 % (0.0-4.3) 08/08/19 09:27 Basophils % (Manual) 0 % (0.0-1.8) 08/08/19 09:27 Metamyelocytes % 8.0 % 08/08/19 09:27 Myelocytes % 0 % 08/08/19 09:27 Promyelocytes % 0 % 08/08/19 09:27 Blast Cells % 0 % 08/08/19 09:27 Nucleated RBC % Not Reportable 08/08/19 09:27 Seg Neutrophils # Man 19.3 K/mm3 (1.8-7.7) H 08/08/19 09:27 Band Neutrophils # 1.4 K/mm3 08/08/19 09:27 Lymphocytes # (Manual) 0.7 K/mm3 (1.2-5.4) L 08/08/19 09:27 Abs React Lymphs (Man) 0.0 K/mm3 08/08/19 09:27 Monocytes # (Manual) 0.2 K/mm3 (0.0-0.8) 08/08/19 09:27 Eosinophils # (Manual) 0.0 K/mm3 (0.0-0.4) 08/08/19 09:27 Basophils # (Manual) 0.0 K/mm3 (0.0-0.1) 08/08/19 09:27 Metamyelocytes # 1.9 K/mm3 08/08/19 09:27 Myelocytes # 0.0 K/mm3 08/08/19 09:27 Promyelocytes # 0.0 K/mm3 08/08/19 09:27 Blast Cells # 0.0 K/mm3 08/08/19 09:27 Pathologist Review 08/02/19 09:03 WBC Morphology Not Reportable 08/08/19 09:27 Hypersegmented Neuts Not Reportable 08/08/19 09:27 Hyposegmented Neuts Not Reportable 08/08/19 09:27 Hypogranular Neuts Not Reportable 08/08/19 09:27 Smudge Cells Not Reportable 08/08/19 09:27 Toxic Granulation Not Reportable 08/08/19 09:27 Toxic Vacuolation Not Reportable 08/08/19 09:27 Dohle Bodies Not Reportable 08/08/19 09:27 Pelger-Huet Anomaly Not Reportable 08/08/19 09:27 Rose Rods Not Reportable 08/08/19 09:27 Platelet Estimate Consistent w auto 08/08/19 09:27 Clumped Platelets Not Reportable 08/08/19 09:27 Plt Clumps, EDTA Not Reportable 08/08/19 09:27 Large Platelets Not Reportable 08/08/19 09:27 Giant Platelets Not Reportable 08/08/19 09:27 Platelet Satelliting Not Reportable 08/08/19 09:27 Plt Morphology Comment Not Reportable 08/08/19 09:27 RBC Morphology Not Reportable 08/08/19 09:27 Dimorphic RBCs Not Reportable 08/08/19 09:27 Polychromasia 1+ 08/08/19 09:27 Hypochromasia 1+ 08/08/19 09:27 Poikilocytosis Not Reportable 08/08/19 09:27 Anisocytosis 1+ 08/08/19 09:27 Microcytosis Not Reportable 08/08/19 09:27 Macrocytosis Few 08/08/19 09:27 Spherocytes Not Reportable 08/08/19 09:27 Pappenheimer Bodies Not Reportable 08/08/19 09:27 Sickle Cells Not Reportable 08/08/19 09:27 Target Cells Not Reportable 08/08/19 09:27 Tear Drop Cells Not Reportable 08/08/19 09:27 Ovalocytes Not Reportable 08/08/19 09:27 Helmet Cells Not Reportable 08/08/19 09:27 Benavidez-[place] Bodies Not Reportable 08/08/19 09:27 [place] Rings Not Reportable 08/08/19 09:27 [place] Cells Not Reportable 08/08/19 09:27 Bite Cells Not Reportable 08/08/19 09:27 Crenated Cell Not Reportable 08/08/19 09:27 Elliptocytes Not Reportable 08/08/19 09:27 Acanthocytes (Spur) Not Reportable 08/08/19 09:27 Rouleaux Not Reportable 08/08/19 09:27 Hemoglobin C Crystals Not Reportable 08/08/19 09:27 Schistocytes Not Reportable 08/08/19 09:27 Malaria parasites Not Reportable 08/08/19 09:27 ESR 78 mm/Hr (0-20) 07/26/19 05:25 Dinesh Bodies Not Reportable 08/08/19 09:27 Hem Pathologist Commnt No 08/08/19 09:27 PT 16.7 Sec. (12.2-14.9) H 07/26/19 06:31 INR 1.39 (0.87-1.13) H 07/26/19 06:31 APTT 41.1 Sec. (24.2-36.6) H 07/26/19 06:31 Sodium 132 mmol/L (137-145) L 08/09/19 04:56 Potassium 4.4 mmol/L (3.6-5.0) 08/09/19 04:56 Chloride 89.0 mmol/L (98-107) L 08/09/19 04:56 Carbon Dioxide 23 mmol/L (22-30) 08/09/19 04:56 Anion Gap 24 mmol/L 08/09/19 04:56 BUN 73 mg/dL (7-17) H 08/09/19 04:56 Creatinine 8.0 mg/dL (0.7-1.2) H 08/09/19 04:56 Estimated GFR 7 ml/min 08/09/19 04:56 BUN/Creatinine Ratio 9 % 08/09/19 04:56 Glucose 187 mg/dL (65-100) H 08/09/19 04:56 POC Glucose 74 (70-105) 08/12/19 12:52 Hemoglobin A1c 5.9 % (4-6) 08/08/19 09:27 Lactic Acid 1.40 mmol/L (0.7-2.0) 08/02/19 15:24 Calcium 9.4 mg/dL (8.4-10.2) 08/09/19 04:56 Phosphorus 7.50 mg/dL (2.5-4.5) H 08/09/19 04:56 Magnesium 2.00 mg/dL (1.7-2.3) 07/30/19 23:32 Iron 58 ug/dL (37-170) 08/03/19 04:15 TIBC 150 mcg/dL (250-450) L 08/03/19 04:15 Ferritin 5729.0 ng/mL (13.0-400.0) H 08/03/19 04:15 Total Bilirubin 0.30 mg/dL (0.1-1.2) 08/09/19 04:56 Direct Bilirubin < 0.2 mg/dL (0-0.2) 07/26/19 06:31 Indirect Bilirubin 0.1 mg/dL 07/26/19 06:31 AST 13 units/L (5-40) 08/09/19 04:56 ALT 5 units/L (7-56) L 08/09/19 04:56 Alkaline Phosphatase 86 units/L (35-129) 08/09/19 04:56 Total Creatine Kinase 43 units/L (30-135) 07/26/19 05:25 Troponin T 0.072 ng/mL (0.00-0.029) H 07/26/19 06:31 C-Reactive Protein 40.30 mg/dL (0.00-1.30) H 08/03/19 10:23 NT-Pro-B Natriuret Pep 19792 pg/mL (0-450) H 07/26/19 06:31 Total Protein 6.5 g/dL (6.3-8.2) 08/09/19 04:56 Albumin 2.6 g/dL (3.9-5) L 08/09/19 04:56 Albumin/Globulin Ratio 0.7 % 08/09/19 04:56 Triglycerides 261 mg/dL (2-149) H 08/03/19 04:15 Cholesterol 91 mg/dL (50-199) 07/26/19 06:31 LDL Cholesterol Direct 30 mg/dL (50-130) L 07/26/19 06:31 HDL Cholesterol 25 mg/dL (40-59) L 07/26/19 06:31 Cholesterol/HDL Ratio 3.64 % 07/26/19 06:31 Amylase 784 units/L (27-131) H 08/10/19 07:06 Lipase 276 units/L (13-60) H 08/10/19 07:06 Procalcitonin 22.18 ng/mL (<0.15) 08/02/19 16:38 HCG, Qual Negative (Negative) 07/30/19 02:40 HCG, Quant < 2 mIU/mL (0-4) 07/26/19 05:25 CSF Appearance Clear 08/01/19 10:40 CSF Color Colorless 08/01/19 10:40 CSF WBC 0 /mm3 (1-10) 08/01/19 10:40 CSF RBC 0 /mm3 (0-0) 08/01/19 10:40 CSF Seg Neutrophils 0 % (0-6) 08/01/19 10:40 CSF Lymphocytes % 0 % (40-80) 08/01/19 10:40 CSF Reactive Lymphs 0 % 08/01/19 10:40 CSF Monocytes % 0 % (15-45) 08/01/19 10:40 CSF Eosinophils % 0 % 08/01/19 10:40 CSF Basophils 0 % 08/01/19 10:40 CSF Pathologist Review C 08/01/19 10:40 CSF Glucose 57 mg/dL 08/01/19 10:40 CSF Total Protein 84 mg/dL 08/01/19 10:40 CSF VDRL Nonreactive (Nonreactive) 08/01/19 10:40 Random Vancomycin 14.9 ug/mL (0-40.0) 08/06/19 05:18 Double Strand DNA Ab See scanned result 07/30/19 11:40 Complement C3 107 mg/dL (83-193) 08/01/19 16:07 Complement C4 32 mg/dL (15-57) 08/01/19 16:07 RPR Nonreactive (Nonreactive) 07/26/19 05:25 Hepatitis A IgM Ab Non-reactive (NonReactive) 07/26/19 10:53 Hep Bs Antigen Non-reactive (Negative) 07/26/19 10:53 Hep B Core IgM Ab Non-reactive (NonReactive) 07/26/19 10:53 Hepatitis C Antibody Non-reactive (NonReactive) 07/26/19 10:53 Blood Type A POSITIVE 08/02/19 12:50 Antibody Screen Negative 08/02/19 12:50 Crossmatch See Detail 08/02/19 12:50 Active Medications - Current Medications Current Medications: Generic Name Dose Route Start Last Admin Trade Name Freq PRN Reason Stop Dose Admin Acetaminophen 650 mg 07/26/19 11:08 08/03/19 21:27 Tylenol PO 650 mg Q6H PRN Administration Pain, Mild (1-3) Albuterol 2.5 mg 07/26/19 15:39 Proventil IH QID PRN Wheezing Lipase/Protease/Amylase 1 each 07/31/19 08:26 Pancreazmick Diane 10,500 Unit FEEDTUBE PRN PRN For Clogged Feeding Tube Cyanocobalamin 1,000 mcg 07/27/19 10:00 08/12/19 10:54 Vitamin B-12 PO Not Given QDAY [facility] Dextrose 25 ml 07/26/19 11:06 07/26/19 12:32 D50w (25gm) Syringe IV 25 ml PRN PRN Administration Hypoglycemia Epoetin Mitch 10,000 unit 07/26/19 10:10 08/11/19 12:50 Procrit IV 10,000 unit FAN PRN Administration hemodialysis Folic Acid 1 mg 07/27/19 10:00 08/12/19 10:54 Folvite PO Not Given QDAY [facility] Hydralazine HCl 10 mg 07/30/19 20:16 07/31/19 00:05 Apresoline IV 10 mg Q4HR PRN Administration Blood Pressure Hydroxychloroquine Sulfate 200 mg 07/27/19 10:00 08/12/19 10:54 Plaquenil PO Not Given QDAY [facility] Hydroxyzine HCl 50 mg 07/27/19 10:00 08/12/19 10:53 Atarax PO Not Given QDAY [facility] MEROPENEM/NS 1 GRAM/100 ML 1 gram in 100 mls @ 100 mls/hr 08/09/19 18:00 08/11/19 17:23 Merrem/Ns 1 Gram/100 Ml IV 100 mls/hr QPM JOEL Administration Protocol Sodium Chloride 100 mls @ 999 mls/hr 08/09/19 09:01 Nacl 0.9% IV FAN PRN Hypotension Sodium Chloride 1,000 mls @ 50 mls/hr 08/10/19 17:00 08/12/19 15:04 Nacl 0.45% 1000 Ml IV 50 mls/hr DIRECT [facility] Administration Insulin Glargine 20 units 08/08/19 22:00 08/12/19 01:07 Lantus SUB-Q Not Given QHS [facility] Insulin Human Lispro 0 unit 08/08/19 13:00 08/12/19 12:49 Humalog SUB-Q Not Given Q6HR [facility] Protocol Labetalol HCl 300 mg 07/26/19 16:00 08/12/19 10:54 Normodyne PO Not Given BID [facility] Levetiracetam 500 mg 08/09/19 22:00 08/12/19 10:54 Keppra PO Not Given BID [facility] Losartan Potassium 50 mg 07/27/19 10:00 08/12/19 10:54 Cozaar PO Not Given QDAY [facility] Mycophenolate Mofetil 500 mg 07/27/19 10:00 08/12/19 10:53 Cellcept PO Not Given QDAY [facility] Ondansetron HCl 4 mg 07/29/19 23:31 08/06/19 11:32 Zofran IV 4 mg Q6H PRN Administration Nausea And Vomiting Oxycodone/Acetaminophen 1 tab 07/29/19 15:49 08/05/19 21:42 Percocet 5/325 PO 1 tab Q8H PRN Administration Pain, Moderate (4-6) Pantoprazole Sodium 40 mg 08/09/19 10:00 08/12/19 10:54 Protonix PO Not Given BID [facility] Prednisone 20 mg 07/27/19 10:00 08/12/19 10:54 Deltasone PO Not Given QDAY [facility] Sevelamer Carbonate 800 mg 07/26/19 16:30 08/12/19 09:15 Renvela PO 800 mg 0730,1630 [facility] Administration Simple Syrup 15 ml 07/31/19 08:26 Simple Syrup FEEDTUBE PRN PRN Hypoglycemia Simple Syrup 30 ml 07/31/19 08:26 Simple Syrup FEEDTUBE PRN PRN Hypoglycemia Sodium Bicarbonate 325 mg 07/31/19 08:26 Sodium Bicarbonate FEEDTUBE PRN PRN For Clogged Feeding Tube Sodium Bicarbonate 650 mg 08/08/19 14:00 08/12/19 13:20 Sodium Bicarbonate PO Not Given TID JOEL Nutrition/Malnutrition Assess - Dietary Evaluation Nutrition/Malnutrition Findings: Nutrition Notes Start: 07/26/19 14:40 Freq: Status: Active Protocol: Document 08/12/19 11:31 MK (Rec: 08/12/19 11:51 MK [id number]) Co-Sign 08/12/19 11:31 LP Nutrition Notes Need for Assessment generated from: MD Order Initial or Follow up Brief Note Current Diagnosis CKD (stage V CKD),Hypertension Other Pertinent Diagnosis acute pancreatitis, on HD, MRSA, lupus, anemia, wounds Current Diet NPO Height 5 ft 3 in Weight 60.6 kg [place] Body Weight (kg) 52.27 BMI 23.6 Subjective/Other Information Consult for TPN. RN reports no IV access and pt in surgery. Plan for TPN start 08/13. Is patient on ventilator? No Is Patient Ambulatory and/or Out of Bed No REE-([facility]-confined to bed) 1556.304 Kcal/Kg value to use for calculation 35 Approximate Energy Requirements Using 2121 kcal/Kg Calculation Used for Recommendations Kcal/kg Additional Notes PRO: 77 g- 96 g/day (1.2-1.5g/ kg/day AdBW 65kg) Fluid: 1-1.5L/day Nutrition Intervention Change Diet Order: Continue Add Supplement/Snack (indicate name/kcal Continue /protein ) Follow-Up By: 08/13/19 Additional Comments FU for IV access, TPN, and POC
[2019-08-12 17:26] LABS: Calcium 8.5 mg/dL (8.4-10.2)
--- NOTE | 2019-08-12 17:49 | Progress Note ---
Assessment and Plan - Patient Problems (1) Pancreatitis Current Visit: Yes Status: Acute Qualifiers: Chronicity: acute Acute pancreatitis complication: unspecified Plan to address problem: Pt appears stable. I would stay with a clear liquid diet for now. Perhaps the full liquid diet was to stimulating for her with her extensive pancreatitis. I discussed her nutritional issues with Dr. Mcmullen. Not taking into account her renal failure, TPN would be the best choice for now until she is able to tolerate more of a diet. The other option, which is more anecdotal, is to try passing a small bore feeding tube past the second portion of the duodenum in hopes that the tube feeds will not stimulate the pancreas. This most likely would require fluoroscopy to pass the tube. No surgical intervention is recommended at this time. Will follow along peripherally. Please call with questions. time=10min Subjective Date of service: 08/12/19 Patient Reports: Positive: feels better (able to tolerate clears; no abdominal pain). Negative: nausea, vomiting Objective Vital Signs - 12hr 08/12/19 08/12/19 08/12/19 06:20 12:40 16:49 Temperature 99.0 F 98.1 F 98.9 F Pulse Rate 53 L 113 H Respiratory 18 20 20 Rate Blood Pressure 129/82 133/90 147/98 O2 Sat by Pulse 100 100 Oximetry - General physical appearance no distress, no pain, other (looks better and communication is better) - Respiratory normal expansion, normal respiratory effort - Abdomen soft, not tender, not distended, not guarding, not rigid - Integumentary no rash, no growths, no abnormal pigmentation - Labs 08/12/19 Unknown 08/12/19 Unknown Diabetes panel 08/12/19 Range/Units Unknown Sodium 138 (137-145) mmol/L Potassium 3.6 (3.6-5.0) mmol/L Chloride 95.4 L (98-107) mmol/L Carbon Dioxide 23 (22-30) mmol/L BUN 27 H (7-17) mg/dL Creatinine 5.5 H (0.7-1.2) mg/dL Glucose 86 (65-100) mg/dL Calcium 8.5 (8.4-10.2) mg/dL Calcium panel 08/12/19 Range/Units Unknown Calcium 8.5 (8.4-10.2) mg/dL Pituitary panel 08/12/19 Range/Units Unknown Sodium 138 (137-145) mmol/L Potassium 3.6 (3.6-5.0) mmol/L Chloride 95.4 L (98-107) mmol/L Carbon Dioxide 23 (22-30) mmol/L BUN 27 H (7-17) mg/dL Creatinine 5.5 H (0.7-1.2) mg/dL Glucose 86 (65-100) mg/dL Calcium 8.5 (8.4-10.2) mg/dL Adrenal panel 08/12/19 Range/Units Unknown Sodium 138 (137-145) mmol/L Potassium 3.6 (3.6-5.0) mmol/L Chloride 95.4 L (98-107) mmol/L Carbon Dioxide 23 (22-30) mmol/L BUN 27 H (7-17) mg/dL Creatinine 5.5 H (0.7-1.2) mg/dL Glucose 86 (65-100) mg/dL Calcium 8.5 (8.4-10.2) mg/dL
[2019-08-12] MEDS: MERREM/NS 1 GRAM/100 ML 1 GRAM/100 ML BAG IV SCH (17:52)
[2019-08-13] MEDS: LANTUS SUB-Q SCH (00:02)
[2019-08-13] MEDS: HumaLOG SUB-Q SCH ×4 (00:03→18:58)
[2019-08-13] MEDS: APRESOLINE IV PRN ×2 (00:38→13:31)
[2019-08-13 05:16] LABS: Hematocrit 25.6 % (30.3-42.9); Mean Corpuscular HGB Conc 31 % (30-34); Mean Corpuscular Volume 84 fl (79-97); Red Blood Count 3.06 M/mm3 (3.65-5.03); Red Cell Distribution Width 17.5 % (13.2-15.2)
[2019-08-13 06:42] LABS: Total Cells Counted 100
[2019-08-13 06:43] LABS: Eosinophils % (Manual) 0 % (0.0-4.3); Macrocytosis Few
[2019-08-13 06:45] LABS: Anisocytosis 1+; Hypochromasia Few
[2019-08-13 06:46] LABS: Platelet Estimate Consistent w Auto
[2019-08-13 06:47] LABS: Platelet Count 170 K/mm3 (140-440)
[2019-08-13] MEDS: RENVELA PO SCH ×2 (07:58→17:22)
[2019-08-13] MEDS: SODIUM BICARBONATE PO SCH ×3 (07:59→21:53)
[2019-08-13] MEDS: D50W (25GM) Syringe IV PRN (08:12)
[2019-08-13] MEDS ORDERED: NACL 0.9% 100 ML IV PRN (08:34)
[2019-08-13] MEDS: FOLVITE PO SCH (10:40)
[2019-08-13] MEDS: COZAAR PO SCH (10:40)
[2019-08-13] MEDS: PLAQUENIL PO SCH (10:40)
[2019-08-13] MEDS: NORMODYNE PO SCH ×2 (10:40→21:55)
[2019-08-13] MEDS: DELTASONE PO SCH (10:40)
[2019-08-13] MEDS: CELLCEPT PO SCH (10:40)
[2019-08-13] MEDS: ATARAX PO SCH (10:40)
[2019-08-13] MEDS: VITAMIN B-12 PO SCH (10:41)
--- NOTE | 2019-08-13 10:53 | Progress Note ---
Assessment and Plan Assessment and plan: Patient is a 29-year-old -[place] woman with a history of ESRD on hemodialysis. SLE/lupus, chronic pain syndrome, MRSA infection and hypertension who presented to [facility] ED on 07/26/2019 with bilateral leg pains, cramping and burning sensation. She was found to have hyperkalemia, fluid overload fevers, right labial abscess, leg wounds, with wound cultures positive for Escherichia coli. During hospital coarse, she developed new onset seizures on 07/30/2019, received Keppra and Ativan. She was seen by Neurologist, Dr. Lu, CT head negative, but patient has remained altered with lethargy, non-sensical speech, since first episode of seizure. Brain MRI done was negative for acute abnormalities. A second neurologist, , was consulted for second opinion on 08/02/2019. She had very high persist Persistent leukocytosis, ID evaluated, ordered C. difficile. She underwent LP with was negative for meningitis. She had CT abd/pelvis done which was concerning for severe necrotizing pancreatitis. General surgeon was consulted and recommended transfer to higher level of care which Dr. Andrea tried but it appears the transfer was denied. * Wound culture - E coli, whittaker sensitive * Blood culture 07/26/2019 no growth today * CSF 08/02/2019 no organisms, no leukocytes * Right labia drainage 08/02/2019 +E coli whittaker-sens, Enterococcus Severe acute necrotizing pancreatitis: General Surgeon, input noted, also d/w Dr. Nguyen, continue medical management New onset seizures: On Keppra, Severe Acute Metabolic encephalopathy; multifactorial E. coli Right labia abscess with suspected necrotizing fascitis s/p Right labia drainage 08/02/2019 +whittaker-sensitive E coli and now Enterococcus. 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 Myers, start PICC line and TPN History Interval history: Patient was seen and examined. Follow-up on current diagnosis of AMS. No overnight events reported to me. Imaging, nursing note, chart, labs and old chart reviewed. N/V resolved, patient is actually talking and following some commands. She is so deconditioned. Hospitalist Physical - Physical exam Narrative exam: Gen: unkempt, ill appearing NAD, Awake, talking and answering questions HEENT: scalp lesions with diffuse small 3mm ulcerations Neck: supple, adenopathy, no thyromegaly, no JVD CVS/Heart: Regular tachycardia, normal S1S2, pulses present bilaterally Chest/Lungs: CTA B, Symmetrical chest expansion, good air entry bilaterally GI/Abdomen: soft, NTND, good bowel sounds, no guarding or rebound /Bladder: no suprapubic tenderness, no CVA or paraspinal tenderness Extermity/Skin: obvious rash, scalp lesions with diffuse small 3mm ulcerations MSK: FROM x 4 Neuro: CN 2-12 grossly intact, no new focal deficits Psych: calm but confused - Constitutional Vitals: Temp Pulse Resp BP Pulse Ox 98.7 F 111 H 20 146/87 100 08/13/19 05:40 08/13/19 05:41 08/13/19 05:40 08/13/19 05:40 08/13/19 05:41 General appearance: Present: no acute distress, well-nourished Results - Labs CBC & Chem 7: 08/13/19 04:45 08/13/19 04:45 Labs: Laboratory Last Values WBC 21.4 K/mm3 (4.5-11.0) H 08/13/19 04:45 RBC 3.06 M/mm3 (3.65-5.03) L 08/13/19 04:45 Hgb 8.0 gm/dl (10.1-14.3) L 08/13/19 04:45 Hct 25.6 % (30.3-42.9) L 08/13/19 04:45 MCV 84 fl (79-97) 08/13/19 04:45 MCH 26 pg (28-32) L 08/13/19 04:45 MCHC 31 % (30-34) 08/13/19 04:45 RDW 17.5 % (13.2-15.2) H 08/13/19 04:45 Plt Count 170 K/mm3 (140-440) 08/13/19 04:45 Lymph # Hide Measuring Machine Operator 08/02/19 09:03 Add Manual Diff Complete 08/13/19 04:45 Total Counted 100 08/13/19 04:45 Seg Neuts % (Manual) 85.0 % (40.0-70.0) H 08/13/19 04:45 Band Neutrophils % 0 % 08/13/19 04:45 Lymphocytes % (Manual) 9.0 % (13.4-35.0) L 08/13/19 04:45 Reactive Lymphs % (Man) 0 % 08/13/19 04:45 Monocytes % (Manual) 4.0 % (0.0-7.3) 08/13/19 04:45 Eosinophils % (Manual) 0 % (0.0-4.3) 08/13/19 04:45 Basophils % (Manual) 1.0 % (0.0-1.8) 08/13/19 04:45 Metamyelocytes % 1.0 % 08/13/19 04:45 Myelocytes % 0 % 08/13/19 04:45 Promyelocytes % 0 % 08/13/19 04:45 Blast Cells % 0 % 08/13/19 04:45 Nucleated RBC % 1.0 % (0.0-0.9) H 08/13/19 04:45 Seg Neutrophils # Man 18.2 K/mm3 (1.8-7.7) H 08/13/19 04:45 Band Neutrophils # 0.0 K/mm3 08/13/19 04:45 Lymphocytes # (Manual) 1.9 K/mm3 (1.2-5.4) 08/13/19 04:45 Abs React Lymphs (Man) 0.0 K/mm3 08/13/19 04:45 Monocytes # (Manual) 0.9 K/mm3 (0.0-0.8) H 08/13/19 04:45 Eosinophils # (Manual) 0.0 K/mm3 (0.0-0.4) 08/13/19 04:45 Basophils # (Manual) 0.2 K/mm3 (0.0-0.1) H 08/13/19 04:45 Metamyelocytes # 0.2 K/mm3 08/13/19 04:45 Myelocytes # 0.0 K/mm3 08/13/19 04:45 Promyelocytes # 0.0 K/mm3 08/13/19 04:45 Blast Cells # 0.0 K/mm3 08/13/19 04:45 Pathologist Review 08/02/19 09:03 WBC Morphology Not Reportable 08/13/19 04:45 Hypersegmented Neuts Not Reportable 08/13/19 04:45 Hyposegmented Neuts Not Reportable 08/13/19 04:45 Hypogranular Neuts Not Reportable 08/13/19 04:45 Smudge Cells Not Reportable 08/13/19 04:45 Toxic Granulation Not Reportable 08/13/19 04:45 Toxic Vacuolation Not Reportable 08/13/19 04:45 Dohle Bodies Not Reportable 08/13/19 04:45 Pelger-Huet Anomaly Not Reportable 08/13/19 04:45 Rose Rods Not Reportable 08/13/19 04:45 Platelet Estimate Consistent w auto 08/13/19 04:45 Clumped Platelets Not Reportable 08/13/19 04:45 Plt Clumps, EDTA Not Reportable 08/13/19 04:45 Large Platelets Not Reportable 08/13/19 04:45 Giant Platelets Not Reportable 08/13/19 04:45 Platelet Satelliting Not Reportable 08/13/19 04:45 Plt Morphology Comment Not Reportable 08/13/19 04:45 RBC Morphology Not Reportable 08/13/19 04:45 Dimorphic RBCs Not Reportable 08/13/19 04:45 Polychromasia Few 08/13/19 04:45 Hypochromasia Few 08/13/19 04:45 Poikilocytosis Not Reportable 08/13/19 04:45 Anisocytosis 1+ 08/13/19 04:45 Microcytosis Few 08/13/19 04:45 Macrocytosis Few 08/13/19 04:45 Spherocytes Not Reportable 08/13/19 04:45 Pappenheimer Bodies Not Reportable 08/13/19 04:45 Sickle Cells Not Reportable 08/13/19 04:45 Target Cells Not Reportable 08/13/19 04:45 Tear Drop Cells Not Reportable 08/13/19 04:45 Ovalocytes Not Reportable 08/13/19 04:45 Helmet Cells Not Reportable 08/13/19 04:45 Benavide[place] Bodies Not Reportable 08/13/19 04:45 [place] Rings Not Reportable 08/13/19 04:45 Bk Cells Not Reportable 08/13/19 04:45 Bite Cells Not Reportable 08/13/19 04:45 Crenated Cell Not Reportable 08/13/19 04:45 Elliptocytes Not Reportable 08/13/19 04:45 Acanthocytes (Spur) Not Reportable 08/13/19 04:45 Rouleaux Not Reportable 08/13/19 04:45 Hemoglobin C Crystals Not Reportable 08/13/19 04:45 Schistocytes Not Reportable 08/13/19 04:45 Malaria parasites Not Reportable 08/13/19 04:45 ESR 78 mm/Hr (0-20) 07/26/19 05:25 Dinesh Bodies Not Reportable 08/13/19 04:45 Hem Pathologist Commnt No 08/13/19 04:45 PT 16.7 Sec. (12.2-14.9) H 07/26/19 06:31 INR 1.39 (0.87-1.13) H 07/26/19 06:31 APTT 41.1 Sec. (24.2-36.6) H 07/26/19 06:31 Sodium 135 mmol/L (137-145) L 08/13/19 04:45 Potassium 3.4 mmol/L (3.6-5.0) L 08/13/19 04:45 Chloride 94.1 mmol/L (98-107) L 08/13/19 04:45 Carbon Dioxide 21 mmol/L (22-30) L 08/13/19 04:45 Anion Gap 23 mmol/L 08/13/19 04:45 BUN 33 mg/dL (7-17) H 08/13/19 04:45 Creatinine 6.4 mg/dL (0.7-1.2) H 08/13/19 04:45 Estimated GFR 9 ml/min 08/13/19 04:45 BUN/Creatinine Ratio 5 % 08/13/19 04:45 Glucose 82 mg/dL (65-100) 08/13/19 04:45 POC Glucose 78 (70-105) 08/13/19 05:48 Hemoglobin A1c 5.9 % (4-6) 08/08/19 09:27 Lactic Acid 1.40 mmol/L (0.7-2.0) 08/02/19 15:24 Calcium 8.0 mg/dL (8.4-10.2) L 08/13/19 04:45 Phosphorus 5.10 mg/dL (2.5-4.5) H 08/13/19 04:45 Magnesium 1.20 mg/dL (1.7-2.3) L 08/13/19 04:45 Iron 58 ug/dL (37-170) 08/03/19 04:15 TIBC 150 mcg/dL (250-450) L 08/03/19 04:15 Ferritin 5729.0 ng/mL (13.0-400.0) H 08/03/19 04:15 Total Bilirubin 0.30 mg/dL (0.1-1.2) 08/09/19 04:56 Direct Bilirubin < 0.2 mg/dL (0-0.2) 07/26/19 06:31 Indirect Bilirubin 0.1 mg/dL 07/26/19 06:31 AST 13 units/L (5-40) 08/09/19 04:56 ALT 5 units/L (7-56) L 08/09/19 04:56 Alkaline Phosphatase 86 units/L (35-129) 08/09/19 04:56 Total Creatine Kinase 43 units/L (30-135) 07/26/19 05:25 Troponin T 0.072 ng/mL (0.00-0.029) H 07/26/19 06:31 C-Reactive Protein 40.30 mg/dL (0.00-1.30) H 08/03/19 10:23 NT-Pro-B Natriuret Pep 61164 pg/mL (0-450) H 07/26/19 06:31 Total Protein 6.5 g/dL (6.3-8.2) 08/09/19 04:56 Albumin 2.6 g/dL (3.9-5) L 08/09/19 04:56 Albumin/Globulin Ratio 0.7 % 08/09/19 04:56 Triglycerides 261 mg/dL (2-149) H 08/03/19 04:15 Cholesterol 91 mg/dL (50-199) 07/26/19 06:31 LDL Cholesterol Direct 30 mg/dL (50-130) L 07/26/19 06:31 HDL Cholesterol 25 mg/dL (40-59) L 07/26/19 06:31 Cholesterol/HDL Ratio 3.64 % 07/26/19 06:31 Amylase 784 units/L (27-131) H 08/10/19 07:06 Lipase 279 units/L (13-60) H 08/12/19 Unknown Procalcitonin 22.18 ng/mL (<0.15) 08/02/19 16:38 HCG, Qual Negative (Negative) 07/30/19 02:40 HCG, Quant < 2 mIU/mL (0-4) 07/26/19 05:25 CSF Appearance Clear 08/01/19 10:40 CSF Color Colorless 08/01/19 10:40 CSF WBC 0 /mm3 (1-10) 08/01/19 10:40 CSF RBC 0 /mm3 (0-0) 08/01/19 10:40 CSF Seg Neutrophils 0 % (0-6) 08/01/19 10:40 CSF Lymphocytes % 0 % (40-80) 08/01/19 10:40 CSF Reactive Lymphs 0 % 08/01/19 10:40 CSF Monocytes % 0 % (15-45) 08/01/19 10:40 CSF Eosinophils % 0 % 08/01/19 10:40 CSF Basophils 0 % 08/01/19 10:40 CSF Pathologist Review C 08/01/19 10:40 CSF Glucose 57 mg/dL 08/01/19 10:40 CSF Total Protein 84 mg/dL 08/01/19 10:40 CSF VDRL Nonreactive (Nonreactive) 08/01/19 10:40 Random Vancomycin 14.9 ug/mL (0-40.0) 08/06/19 05:18 Double Strand DNA Ab See scanned result 07/30/19 11:40 Complement C3 107 mg/dL (83-193) 08/01/19 16:07 Complement C4 32 mg/dL (15-57) 08/01/19 16:07 RPR Nonreactive (Nonreactive) 07/26/19 05:25 Hepatitis A IgM Ab Non-reactive (NonReactive) 07/26/19 10:53 Hep Bs Antigen Non-reactive (Negative) 07/26/19 10:53 Hep B Core IgM Ab Non-reactive (NonReactive) 07/26/19 10:53 Hepatitis C Antibody Non-reactive (NonReactive) 07/26/19 10:53 Blood Type A POSITIVE 08/02/19 12:50 Antibody Screen Negative 08/02/19 12:50 Crossmatch See Detail 08/02/19 12:50 Active Medications - Current Medications Current Medications: Generic Name Dose Route Start Last Admin Trade Name Freq PRN Reason Stop Dose Admin Acetaminophen 650 mg 07/26/19 11:08 08/03/19 21:27 Tylenol PO 650 mg Q6H PRN Administration Pain, Mild (1-3) Albuterol 2.5 mg 07/26/19 15:39 Proventil IH QID PRN Wheezing Lipase/Protease/Amylase 1 each 07/31/19 08:26 Pancreazmick Diane 10,500 Unit FEEDTUBE PRN PRN For Clogged Feeding Tube Cyanocobalamin 1,000 mcg 07/27/19 10:00 08/13/19 10:41 Vitamin B-12 PO Not Given QDAY [facility] Dextrose 25 ml 07/26/19 11:06 08/13/19 08:12 D50w (25gm) Syringe IV 25 ml PRN PRN Administration Hypoglycemia Epoetin Mitch 20,000 unit 08/13/19 08:34 Procrit SUB-Q FAN PRN hemodialysis Folic Acid 1 mg 07/27/19 10:00 08/13/19 10:40 Folvite PO Not Given QDAY [facility] Hydralazine HCl 10 mg 07/30/19 20:16 08/13/19 00:38 Apresoline IV 10 mg Q4HR PRN Administration Blood Pressure Hydroxychloroquine Sulfate 200 mg 07/27/19 10:00 08/13/19 10:40 Plaquenil PO Not Given QDAY [facility] Hydroxyzine HCl 50 mg 07/27/19 10:00 08/13/19 10:40 Atarax PO Not Given QDAY [facility] MEROPENEM/NS 1 GRAM/100 ML 1 gram in 100 mls @ 100 mls/hr 08/09/19 18:00 08/12/19 17:52 Merrem/Ns 1 Gram/100 Ml IV 100 mls/hr QPM [facility] Administration Protocol Sodium Chloride 1,000 mls @ 50 mls/hr 08/10/19 17:00 08/12/19 15:04 Nacl 0.45% 1000 Ml IV 50 mls/hr DIRECT JOEL Administration Sodium Chloride 100 mls @ 999 mls/hr 08/13/19 08:34 Nacl 0.9% IV FAN PRN Hypotension Insulin Glargine 20 units 08/08/19 22:00 08/13/19 00:02 Lantus SUB-Q Not Given QHS [facility] Insulin Human Lispro 0 unit 08/08/19 13:00 08/13/19 05:49 Humalog SUB-Q Not Given Q6HR [facility] Protocol Labetalol HCl 300 mg 07/26/19 16:00 08/13/19 10:40 Normodyne PO Not Given BID [facility] Levetiracetam 500 mg 08/09/19 22:00 08/12/19 21:36 Keppra PO Not Given BID [facility] Losartan Potassium 50 mg 07/27/19 10:00 08/13/19 10:40 Cozaar PO Not Given QDAY [facility] Mycophenolate Mofetil 500 mg 07/27/19 10:00 08/13/19 10:40 Cellcept PO Not Given QDAY [facility] Ondansetron HCl 4 mg 07/29/19 23:31 08/06/19 11:32 Zofran IV 4 mg Q6H PRN Administration Nausea And Vomiting Oxycodone/Acetaminophen 1 tab 07/29/19 15:49 08/05/19 21:42 Percocet 5/325 PO 1 tab Q8H PRN Administration Pain, Moderate (4-6) Pantoprazole Sodium 40 mg 08/09/19 10:00 08/12/19 21:36 Protonix PO Not Given BID [facility] Prednisone 20 mg 07/27/19 10:00 08/13/19 10:40 Deltasone PO Not Given QDAY [facility] Sevelamer Carbonate 800 mg 07/26/19 16:30 08/13/19 07:58 Renvela PO Not Given 0730,1630 [facility] Simple Syrup 15 ml 07/31/19 08:26 Simple Syrup FEEDTUBE PRN PRN Hypoglycemia Simple Syrup 30 ml 07/31/19 08:26 Simple Syrup FEEDTUBE PRN PRN Hypoglycemia Sodium Bicarbonate 325 mg 07/31/19 08:26 Sodium Bicarbonate FEEDTUBE PRN PRN For Clogged Feeding Tube Sodium Bicarbonate 650 mg 08/08/19 14:00 08/13/19 07:59 Sodium Bicarbonate PO Not Given TID [facility] Nutrition/Malnutrition Assess - Dietary Evaluation Nutrition/Malnutrition Findings: Nutrition Notes Start: 07/26/19 14:40 Freq: Status: Active Protocol: Document 08/12/19 11:31 MK (Rec: 08/12/19 11:51 MK [id number]) Co-Sign 08/12/19 11:31 LP Nutrition Notes Need for Assessment generated from: MD Order Initial or Follow up Brief Note Current Diagnosis CKD (stage V CKD),Hypertension Other Pertinent Diagnosis acute pancreatitis, on HD, MRSA, lupus, anemia, wounds Current Diet NPO Height 5 ft 3 in Weight 60.6 kg [place] Body Weight (kg) 52.27 BMI 23.6 Subjective/Other Information Consult for TPN. RN reports no IV access and pt in surgery. Plan for TPN start 08/13. Is patient on ventilator? No Is Patient Ambulatory and/or Out of Bed No REE-([facility]-confined to bed) 1556.304 Kcal/Kg value to use for calculation 35 Approximate Energy Requirements Using 2121 kcal/Kg Calculation Used for Recommendations Kcal/kg Additional Notes PRO: 77 g- 96 g/day (1.2-1.5g/ kg/day AdBW 65kg) Fluid: 1-1.5L/day Nutrition Intervention Change Diet Order: Continue Add Supplement/Snack (indicate name/kcal Continue /protein ) Follow-Up By: 08/13/19 Additional Comments FU for IV access, TPN, and POC
[2019-08-13] MEDS: KEPPRA PO SCH ×2 (12:03→21:54)
[2019-08-13] MEDS: PROTONIX PO SCH (12:03)
[2019-08-13] MEDS: ZOFRAN IV PRN (13:30)
--- NOTE | 2019-08-13 14:10 | Progress Note ---
Assessment and Plan 1. ESRD: On maintenance hemodialysis three times a week, TTS schedule. 2. FEN: Monitor lytes. 3. Anemia: Epogen with HD. 4. New onset seizures: On Keppra. 5. Metabolic encephalopathy. 6. Sepsis. Vulvar abscess. Followed by ID. 7. Acute pancreatitis: Continue supportive care. Seen by GI. 8. History of lupus: On Cellcept, Plaquenil and Prednisone. Examination: General appearance: alert, appears stated age, not in distress HEENT: ATNC Respiratory: Clear to Ascultation Cardiology: regular, S1S2, no murmur Gastrointestinal: normoactive bowel sounds, no tenderness, not distended Integumentary: no rash Neurologic: alert, able to move extremities, some confusion noted Musculoskeletal: no edema Hemodialysis access: L arm AVF Subjective Date of service: 08/13/19 Principal diagnosis: pancreatitis Interval history: Patient was seen and examined at the bedside. Objective - Vital Signs Vital signs: Vital Signs - 12hr 08/13/19 08/13/19 08/13/19 05:40 05:41 11:58 Temperature 98.7 F Pulse Rate 115 H 111 H 56 L Respiratory 20 Rate Blood Pressure 146/87 159/92 O2 Sat by Pulse 100 100 95 Oximetry 08/13/19 08/13/19 12:30 13:31 Temperature 99.1 F Pulse Rate Respiratory Rate Blood Pressure 159/92 O2 Sat by Pulse Oximetry - Lab 08/13/19 04:45 08/13/19 04:45 Most recent lab results Calcium 8.0 mg/dL (8.4-10.2) L 08/13/19 04:45 Phosphorus 5.10 mg/dL (2.5-4.5) H 08/13/19 04:45 Magnesium 1.20 mg/dL (1.7-2.3) L 08/13/19 04:45 Medications & Allergies - Medications Allergies/Adverse Reactions: Allergies lactose Adverse Reaction (Verified 07/29/19 08:16) Unknown Home Medications: Home Medications Medication Instructions Recorded Confirmed Last Taken Type Gabapentin 300 mg PO 3XW 11/14/18 07/26/19 07/25/19 History ALBUTEROL NEB's [Proventil] 2.5 mg IH QID PRN 07/26/19 07/26/19 07/25/19 History Amitriptyline [Elavil] 25 mg PO QHS 07/26/19 07/26/19 07/25/19 History Amitriptyline [Elavil] 25 mg PO QHS 07/26/19 07/26/19 07/25/19 History Cyanocobalamin (Vitamin B-12) 1,000 mcg PO QDAY 07/26/19 07/26/19 07/25/19 History [Vitamin B-12] Folic Acid [Folvite] 1 mg PO QDAY 07/26/19 07/26/19 07/25/19 History Hydroxychloroquine [Plaquenil] 200 mg PO QDAY 07/26/19 07/26/19 07/25/19 History Ibuprofen [Motrin] 800 mg PO Q8HR PRN 07/26/19 07/26/19 07/25/19 History Labetalol HCl [Labetalol 300mg TAB] 300 mg PO Q12H 07/26/19 07/26/19 07/25/19 History Losartan [Cozaar] 50 mg PO QDAY 07/26/19 07/26/19 07/25/19 History Mirtazapine 7.5 mg PO QDAY 07/26/19 07/26/19 07/25/19 History Mycophenolate [Cellcept] 500 mg PO QDAY 07/26/19 07/26/19 07/25/19 History Pantoprazole [Protonix] 40 mg PO BID 07/26/19 07/26/19 07/25/19 History Pregabalin [Lyrica] 25 mg PO QDAY 07/26/19 07/26/19 07/25/19 History Sevelamer HCl [Renagel] 800 mg PO BIDWM 07/26/19 07/26/19 07/25/19 History hydrOXYzine HCL [Atarax] 50 mg PO QDAY 07/26/19 07/26/19 07/25/19 History predniSONE [Deltasone] 20 mg PO QDAY 07/26/19 07/26/19 07/25/19 History Active Medications: Generic Name Dose Route Start Last Admin Trade Name Freq PRN Reason Stop Dose Admin Acetaminophen 650 mg 07/26/19 11:08 08/03/19 21:27 Tylenol PO 650 mg Q6H PRN Administration Pain, Mild (1-3) Albuterol 2.5 mg 07/26/19 15:39 Proventil IH QID PRN Wheezing Lipase/Protease/Amylase 1 each 07/31/19 08:26 Pancremarcella Diane 10,500 Unit FEEDTUBE PRN PRN For Clogged Feeding Tube Cyanocobalamin 1,000 mcg 07/27/19 10:00 08/13/19 10:41 Vitamin B-12 PO Not Given QDAY [facility] Dextrose 25 ml 07/26/19 11:06 08/13/19 08:12 D50w (25gm) Syringe IV 25 ml PRN PRN Administration Hypoglycemia Epoetin Mitch 20,000 unit 08/13/19 08:34 Procrit SUB-Q FAN PRN hemodialysis Folic Acid 1 mg 07/27/19 10:00 08/13/19 10:40 Folvite PO Not Given QDAY [facility] Hydralazine HCl 10 mg 07/30/19 20:16 08/13/19 13:31 Apresoline IV 10 mg Q4HR PRN Administration Blood Pressure Hydroxychloroquine Sulfate 200 mg 07/27/19 10:00 08/13/19 10:40 Plaquenil PO Not Given QDAY [facility] Hydroxyzine HCl 50 mg 07/27/19 10:00 08/13/19 10:40 Atarax PO Not Given QDAY [facility] MEROPENEM/NS 1 GRAM/100 ML 1 gram in 100 mls @ 100 mls/hr 08/09/19 18:00 09/20 17:52 Merrem/Ns 1 Gram/100 Ml IV 100 mls/hr QPM [facility] Administration Protocol Sodium Chloride 1,000 mls @ 50 mls/hr 08/10/19 17:00 08/12/19 15:04 Nacl 0.45% 1000 Ml IV 08/13/19 19:59 50 mls/hr DIRECT [facility] Administration Sodium Chloride 100 mls @ 999 mls/hr 08/13/19 08:34 Nacl 0.9% IV FAN PRN Hypotension Amino Acids/Electrolytes/Dextrose 1,560 mls @ 65 mls/hr 08/13/19 20:00 Tpn Adult IV 08/14/19 19:59 DAILY@2000 [facility] Protocol Insulin Glargine 20 units 08/08/19 22:00 08/13/19 00:02 Lantus SUB-Q Not Given QHS [facility] Insulin Human Lispro 0 unit 08/08/19 13:00 08/13/19 13:13 Humalog SUB-Q Not Given Q6HR [facility] Protocol Labetalol HCl 300 mg 07/26/19 16:00 08/13/19 10:40 Normodyne PO Not Given BID [facility] Levetiracetam 500 mg 08/09/19 22:00 08/13/19 12:03 Keppra PO 500 mg BID [facility] Administration Losartan Potassium 50 mg 07/27/19 10:00 08/13/19 10:40 Cozaar PO Not Given QDAY [facility] Mycophenolate Mofetil 500 mg 07/27/19 10:00 08/13/19 10:40 Cellcept PO Not Given QDAY [facility] Ondansetron HCl 4 mg 07/29/19 23:31 08/13/19 13:30 Zofran IV 4 mg Q6H PRN Administration Nausea And Vomiting Oxycodone/Acetaminophen 1 tab 07/29/19 15:49 08/05/19 21:42 Percocet 5/325 PO 1 tab Q8H PRN Administration Pain, Moderate (4-6) Pantoprazole Sodium 40 mg 08/09/19 10:00 08/13/19 12:03 Protonix PO 40 mg BID [facility] Administration Prednisone 20 mg 07/27/19 10:00 08/13/19 10:40 Deltasone PO Not Given QDAY [facility] Sevelamer Carbonate 800 mg 07/26/19 16:30 08/13/19 07:58 Renvela PO Not Given 0730,1630 [facility] Simple Syrup 15 ml 07/31/19 08:26 Simple Syrup FEEDTUBE PRN PRN Hypoglycemia Simple Syrup 30 ml 07/31/19 08:26 Simple Syrup FEEDTUBE PRN PRN Hypoglycemia Sodium Bicarbonate 325 mg 07/31/19 08:26 Sodium Bicarbonate FEEDTUBE PRN PRN For Clogged Feeding Tube Sodium Bicarbonate 650 mg 08/08/19 14:00 08/13/19 07:59 Sodium Bicarbonate PO Not Given TID [facility]
[2019-08-13] MEDS ORDERED: MAGNESIUM SULFATE 2GM/50ML 2 GM/50 ML BAG IV ONE (14:11)
[2019-08-13] MEDS ORDERED: ZOFRAN IV ONE (18:01)
--- NOTE | 2019-08-13 18:05 | Progress Note ---
Assessment and Plan Cultures: Wound culture - E coli, whittaker sensitive Blood culture 07/26/2019 no growth today CSF 08/02/2019 no organisms, no leukocytes Right labia drainage 08/02/2019 +E coli pansens, Enterococcus A/P: 49 yo F PMHx ESRD on HD, lupus, previous MRSA infection now with wound infection, abdominal pain and seizures 1. Acute sepsis - leukocytosis with leukomoid reaction, stable to improving. Po ssible source necrotizing pancreatitis +/- right labia abscess +/- less likely sinusitis 2. Presumedly complicated acute pancreatitis: improving; ? CT with generalized edema is noted throughout the pancreas with surrounding moderate inflammation. No distinct pancreatic lesion is identified. Lipase 241. Repeat contrasted CT with severely abnormal pancreas with multiple focal areas of nonperfusion in the distal pancreas. Necrotizing pancreatitis could be considered. There is moderate to large fluid throughout the base of the mesentery and left abdomen which is grossly unchanged. On Meropenem x 14 days. 3. Right labia abscess v/s necrotizing fascitis: Staph vs polymicrobial. Right labia drainage 08/02/2019 +whittaker-sensitive E coli and now Enterococcus. 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 Procalcitonin 22 (high/unclear significance is the setting of ESRD). Repeat Contrasted CT did not include perineum 4. Wound infection right buttocks 5. Lupus, immunocompromised host - on plaquenil, cellcept and prednisone ? flare 6. Severe anemia ? plaquenil ?cellcept, ?GI bleed 7. Immunocompromised host 8. ESRD on HD - renally dose antibiotics Recs: - continue meropenem IV renally adjusted for necrotizing pancreatitis - D10 of 14 depending on clinical progression - monitor leukocytosis Zuleyma Lee MD, FACP [facility] ([facility] C: [phone] O: [phone] F: [phone] Subjective Date of service: 08/13/19 Principal diagnosis: pancreatitis Interval history: No fever, some intermittent nausea. No diarrhea. Abdominal pain. Getting dialysis in her room. Objective - Exam Narrative Exam: Physical Exam: Constitutional: Alert, cooperative. No acute distress Head, Ears, Nose: Normocephalic, atraumatic. External ears, nose normal Eyes: Conjunctivae/corneas clear. No icterus. No ptosis. Neck: Supple, no meningeal signs Cardiovascular: S1, S2 normal. Respiratory: Good air entry, clear to auscultation bilaterally GI: Mild diffuse tenderness; bowel sounds + Musculoskeletal: No pedal edema, no cyanosis. Skin: No rash or abscess, +multiple scattered old scars and +right hip superficial wound Hem/Lymphatic: No palpable cervical or supraclavicular nodes. No lymphangitis Psych: Mood ok. Affect normal Neurological: Awake, alert, oriented. No gross abnormality - Constitutional Vitals: Vital Signs Temp Pulse Resp BP Pulse Ox 98.0 F 117 H 16 96/57 95 08/13/19 15:15 08/13/19 18:00 08/13/19 15:15 08/13/19 18:00 08/13/19 11:58 Temperature -Last 24 Hours Temperature 98.0 F Temperature 99.1 F Temperature 98.7 F Temperature 99.5 F - Labs CBC & Chem 7: 08/13/19 04:45 08/13/19 04:45 Labs: Abnormal lab results 08/13/19 08/13/19 Range/Units 04:45 04:45 WBC 21.4 H (4.5-11.0) K/mm3 RBC 3.06 L (3.65-5.03) M/mm3 Hgb 8.0 L (10.1-14.3) gm/dl Hct 25.6 L (30.3-42.9) % MCH 26 L (28-32) pg RDW 17.5 H (13.2-15.2) % Seg Neuts % (Manual) 85.0 H (40.0-70.0) % Lymphocytes % (Manual) 9.0 L (13.4-35.0) % Nucleated RBC % 1.0 H (0.0-0.9) % Seg Neutrophils # Man 18.2 H (1.8-7.7) K/mm3 Monocytes # (Manual) 0.9 H (0.0-0.8) K/mm3 Basophils # (Manual) 0.2 H (0.0-0.1) K/mm3 Sodium 135 L (137-145) mmol/L Potassium 3.4 L (3.6-5.0) mmol/L Chloride 94.1 L (98-107) mmol/L Carbon Dioxide 21 L (22-30) mmol/L BUN 33 H (7-17) mg/dL Creatinine 6.4 H (0.7-1.2) mg/dL Calcium 8.0 L (8.4-10.2) mg/dL Phosphorus 5.10 H (2.5-4.5) mg/dL Magnesium 1.20 L (1.7-2.3) mg/dL
[2019-08-13] MEDS: MERREM/NS 1 GRAM/100 ML 1 GRAM/100 ML BAG IV SCH (18:36)
[2019-08-13] MEDS: PROCRIT SUB-Q PRN (19:02)
[2019-08-13] MEDS ORDERED: TPN ADULT 1,560 ML IV SCH (20:00)
[2019-08-14] MEDS: HumaLOG SUB-Q SCH ×4 (01:00→19:27)
[2019-08-14] MEDS: LANTUS SUB-Q SCH ×2 (01:01→22:47)
[2019-08-14] MEDS ORDERED: XANAX PO ONE (01:21)
[2019-08-14] MEDS: PROTONIX PO SCH ×3 (01:41→22:42)
[2019-08-14 07:56] LABS: Calcium 8.1 mg/dL (8.4-10.2)
[2019-08-14] MEDS: RENVELA PO SCH ×2 (08:52→19:27)
[2019-08-14] MEDS: SODIUM BICARBONATE PO SCH ×3 (08:52→21:01)
[2019-08-14] MEDS: KEPPRA PO SCH ×2 (11:36→22:42)
[2019-08-14] MEDS: DELTASONE PO SCH (11:37)
[2019-08-14] MEDS: CELLCEPT PO SCH (11:38)
[2019-08-14] MEDS: PLAQUENIL PO SCH (11:39)
[2019-08-14] MEDS: VITAMIN B-12 PO SCH (11:48)
[2019-08-14] MEDS: FOLVITE PO SCH (11:48)
[2019-08-14] MEDS: ATARAX PO SCH (11:48)
[2019-08-14] MEDS: NORMODYNE PO SCH ×2 (11:50→22:42)
[2019-08-14] MEDS: COZAAR PO SCH (11:50)
--- NOTE | 2019-08-14 12:10 | Progress Note ---
Assessment and Plan Cultures: Wound culture - E coli, whittaker sensitive Blood culture 07/26/2019 no growth today CSF 08/02/2019 no organisms, no leukocytes Right labia drainage 08/02/2019 +E coli pansens, Enterococcus A/P: 49 yo F PMHx ESRD on HD, lupus, previous MRSA infection now with wound infection, abdominal pain and seizures 1. Acute sepsis - leukocytosis with leukomoid reaction, stable to improving. Po ssible source necrotizing pancreatitis +/- right labia abscess +/- less likely sinusitis 2. Presumedly complicated acute pancreatitis: improving; ? CT with generalized edema is noted throughout the pancreas with surrounding moderate inflammation. No distinct pancreatic lesion is identified. Lipase 241. Repeat contrasted CT with severely abnormal pancreas with multiple focal areas of nonperfusion in the distal pancreas. Necrotizing pancreatitis could be considered. There is moderate to large fluid throughout the base of the mesentery and left abdomen which is grossly unchanged. On Meropenem x 14 days. 3. Right labia abscess v/s necrotizing fascitis: Staph vs polymicrobial. Right labia drainage 08/02/2019 +whittaker-sensitive E coli and now Enterococcus. 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 Procalcitonin 22 (high/unclear significance is the setting of ESRD). Repeat Contrasted CT did not include perineum 4. Wound infection right buttocks 5. Lupus, immunocompromised host - on plaquenil, cellcept and prednisone ? flare 6. Severe anemia ? plaquenil ?cellcept, ?GI bleed 7. Immunocompromised host 8. ESRD on HD - renally dose antibiotics Recs: - continue meropenem IV renally adjusted for necrotizing pancreatitis - D# 11 of 14 - monitor leukocytosis Zuleyma Lee MD, FACP [facility] ([facility] C: [phone] O: [phone] F: [phone] Subjective Date of service: 08/14/19 Principal diagnosis: pancreatitis Interval history: No fever. Tolerating meropenem without issues. No BM. States she hasn't passed gas today. Mild abdominal pain. Objective - Exam Narrative Exam: Physical Exam: Constitutional: Alert, cooperative. No acute distress Head, Ears, Nose: Normocephalic, atraumatic. External ears, nose normal Eyes: Conjunctivae/corneas clear. No icterus. No ptosis. Neck: Supple, no meningeal signs Cardiovascular: S1, S2 normal. Respiratory: Good air entry, clear to auscultation bilaterally GI: Mild diffuse tenderness; bowel sounds + Musculoskeletal: No pedal edema, no cyanosis. Skin: No rash or abscess, +multiple scattered old scars and +right hip superficial wound Hem/Lymphatic: No palpable cervical or supraclavicular nodes. No lymphangitis Psych: Mood ok. Affect normal Neurological: Awake, alert, oriented. No gross abnormality - Constitutional Vitals: Vital Signs Temp Pulse Resp BP Pulse Ox 98.9 F 95 H 24 113/61 98 08/14/19 04:54 08/14/19 11:28 08/14/19 04:54 08/14/19 11:50 08/14/19 11:28 Temperature -Last 24 Hours Temperature 98.9 F Temperature 98.7 F Temperature 98.7 F Temperature 97.8 F Temperature 98.6 F Temperature 98.0 F Temperature 99.1 F - Labs CBC & Chem 7: 08/13/19 04:45 08/14/19 06:15 Labs: Abnormal lab results 08/14/19 08/14/19 08/14/19 Range/Units 05:24 06:15 11:53 Potassium 3.5 L (3.6-5.0) mmol/L Chloride 97.2 L (98-107) mmol/L BUN 26 H (7-17) mg/dL Creatinine 4.8 H (0.7-1.2) mg/dL Glucose 117 H (65-100) mg/dL POC Glucose 106 H 123 H (70-105) Calcium 8.1 L (8.4-10.2) mg/dL
--- NOTE | 2019-08-14 12:20 | Progress Note ---
Assessment and Plan 1. ESRD: On maintenance hemodialysis three times a week, TTS schedule. 2. FEN: Monitor lytes. 3. Anemia: Epogen with HD. 4. New onset seizures: On Keppra. 5. Metabolic encephalopathy. 6. Sepsis. Vulvar abscess. Followed by ID. 7. Acute pancreatitis: Continue supportive care. On PPN / TPN. 8. History of lupus: On Cellcept, Plaquenil and Prednisone. Examination: General appearance: alert, appears stated age, not in distress HEENT: ATNC Respiratory: Clear to Ascultation Cardiology: regular, S1S2, no murmur Gastrointestinal: normoactive bowel sounds, no tenderness, not distended Integumentary: no rash Neurologic: alert, able to move extremities, some confusion noted Musculoskeletal: no edema Hemodialysis access: L arm AVF Subjective Date of service: 08/14/19 Principal diagnosis: pancreatitis Interval history: Patient was seen and examined at the bedside. Objective - Vital Signs Vital signs: Vital Signs - 12hr 08/14/19 08/14/19 08/14/19 01:04 01:08 01:10 Temperature 98.7 F 98.7 F Pulse Rate 116 H Pulse Rate [ 116 H Right] Respiratory 28 H 28 H 28 H Rate Blood Pressure 135/74 135/74 Blood Pressure 135/74 [Right] O2 Sat by Pulse 98 98 Oximetry 08/14/19 08/14/19 08/14/19 04:54 11:28 11:30 Temperature 98.9 F Pulse Rate 109 H 95 H Pulse Rate [ Right] Respiratory 24 Rate Blood Pressure 110/55 Blood Pressure 113/61 [Right] O2 Sat by Pulse 100 98 Oximetry 08/14/19 11:50 Temperature Pulse Rate Pulse Rate [ Right] Respiratory Rate Blood Pressure 113/61 Blood Pressure [Right] O2 Sat by Pulse Oximetry - Lab 08/13/19 04:45 08/14/19 06:15 Most recent lab results Calcium 8.1 mg/dL (8.4-10.2) L 08/14/19 06:15 Phosphorus 3.60 mg/dL (2.5-4.5) D 08/14/19 06:15 Magnesium 2.10 mg/dL (1.7-2.3) 08/14/19 06:15 Medications & Allergies - Medications Allergies/Adverse Reactions: Allergies lactose Adverse Reaction (Verified 07/29/19 08:16) Unknown Home Medications: Home Medications Medication Instructions Recorded Confirmed Last Taken Type Gabapentin 300 mg PO 3XW 11/14/18 07/26/19 07/25/19 History ALBUTEROL NEB's [Proventil] 2.5 mg IH QID PRN 07/26/19 07/26/19 07/25/19 History Amitriptyline [Elavil] 25 mg PO QHS 07/26/19 07/26/19 07/25/19 History Amitriptyline [Elavil] 25 mg PO QHS 07/26/19 07/26/19 07/25/19 History Cyanocobalamin (Vitamin B-12) 1,000 mcg PO QDAY 07/26/19 07/26/19 07/25/19 Hi story [Vitamin B-12] Folic Acid [Folvite] 1 mg PO QDAY 07/26/19 07/26/19 07/25/19 History Hydroxychloroquine [Plaquenil] 200 mg PO QDAY 07/26/19 07/26/19 07/25/19 History Ibuprofen [Motrin] 800 mg PO Q8HR PRN 07/26/19 07/26/19 07/25/19 History Labetalol HCl [Labetalol 300mg TAB] 300 mg PO Q12H 07/26/19 07/26/19 07/25/19 History Losartan [Cozaar] 50 mg PO QDAY 07/26/19 07/26/19 07/25/19 History Mirtazapine 7.5 mg PO QDAY 07/26/19 07/26/19 07/25/19 History Mycophenolate [Cellcept] 500 mg PO QDAY 07/26/19 07/26/19 07/25/19 History Pantoprazole [Protonix] 40 mg PO BID 07/26/19 07/26/19 07/25/19 History Pregabalin [Lyrica] 25 mg PO QDAY 07/26/19 07/26/19 07/25/19 History Sevelamer HCl [Renagel] 800 mg PO BIDWM 07/26/19 07/26/19 07/25/19 History hydrOXYzine HCL [Atarax] 50 mg PO QDAY 07/26/19 07/26/19 07/25/19 History predniSONE [Deltasone] 20 mg PO QDAY 07/26/19 07/26/19 07/25/19 History Active Medications: Generic Name Dose Route Start Last Admin Trade Name Freq PRN Reason Stop Dose Admin Acetaminophen 650 mg 07/26/19 11:08 08/03/19 21:27 Tylenol PO 650 mg Q6H PRN Administration Pain, Mild (1-3) Albuterol 2.5 mg 07/26/19 15:39 Proventil IH QID PRN Wheezing Lipase/Protease/Amylase 1 each 07/31/19 08:26 Pancreaze 10,500 Unit FEEDTUBE PRN PRN For Clogged Feeding Tube Cyanocobalamin 1,000 mcg 07/27/19 10:00 08/14/19 11:48 Vitamin B-12 PO 1,000 mcg QDAY JOEL Administration Dextrose 25 ml 07/26/19 11:06 08/13/19 08:12 D50w (25gm) Syringe IV 25 ml PRN PRN Administration Hypoglycemia Epoetin Mitch 20,000 unit 08/13/19 08:34 08/13/19 19:02 Procrit SUB-Q 20,000 unit FAN PRN Administration hemodialysis Folic Acid 1 mg 07/27/19 10:00 08/14/19 11:48 Folvite PO 1 mg QDAY JOEL Administration Hydralazine HCl 10 mg 07/30/19 20:16 08/13/19 13:31 Apresoline IV 10 mg Q4HR PRN Administration Blood Pressure Hydroxychloroquine Sulfate 200 mg 07/27/19 10:00 08/14/19 11:39 Plaquenil PO 200 mg QDAY JOEL Administration Hydroxyzine HCl 50 mg 07/27/19 10:00 08/14/19 11:48 Atarax PO 50 mg QDAY JOEL Administration Sodium Chloride 100 mls @ 999 mls/hr 08/13/19 08:34 Nacl 0.9% IV FAN PRN Hypotension Amino Acids/Electrolytes/Dextrose 1,560 mls @ 65 mls/hr 08/13/19 20:00 08/13/19 21:57 Tpn Adult IV 08/14/19 19:59 65 mls/hr DAILY@2000 JOEL Administration Protocol Meropenem 500 mg in 50 mls @ 50 mls/hr 08/14/19 18:00 Merrem/Ns 500 Mg/50 Ml IV QPM JOEL Insulin Glargine 20 units 08/08/19 22:00 08/14/19 01:01 Lantus SUB-Q Not Given QHS [facility] Insulin Human Lispro 0 unit 08/08/19 13:00 08/14/19 06:05 Humalog SUB-Q Not Given Q6HR [facility] Protocol Labetalol HCl 300 mg 07/26/19 16:00 08/14/19 11:50 Normodyne PO Not Given BID [facility] Levetiracetam 500 mg 08/09/19 22:00 08/14/19 11:36 Keppra PO 500 mg BID [facility] Administration Losartan Potassium 50 mg 07/27/19 10:00 08/14/19 11:50 Cozaar PO Not Given QDAY [facility] Mycophenolate Mofetil 500 mg 07/27/19 10:00 08/14/19 11:38 Cellcept PO 500 mg QDAY [facility] Administration Ondansetron HCl 4 mg 07/29/19 23:31 08/13/19 13:30 Zofran IV 4 mg Q6H PRN Administration Nausea And Vomiting Oxycodone/Acetaminophen 1 tab 07/29/19 15:49 08/05/19 21:42 Percocet 5/325 PO 1 tab Q8H PRN Administration Pain, Moderate (4-6) Pantoprazole Sodium 40 mg 08/09/19 10:00 08/14/19 11:47 Protonix PO 40 mg BID [facility] Administration Prednisone 20 mg 07/27/19 10:00 08/14/19 11:37 Deltasone PO 20 mg QDAY [facility] Administration Sevelamer Carbonate 800 mg 07/26/19 16:30 08/14/19 08:52 Renvela PO Not Given 0730,1630 [facility] Simple Syrup 15 ml 07/31/19 08:26 Simple Syrup FEEDTUBE PRN PRN Hypoglycemia Simple Syrup 30 ml 07/31/19 08:26 Simple Syrup FEEDTUBE PRN PRN Hypoglycemia Sodium Bicarbonate 325 mg 07/31/19 08:26 Sodium Bicarbonate FEEDTUBE PRN PRN For Clogged Feeding Tube Sodium Bicarbonate 650 mg 08/08/19 14:00 08/14/19 08:52 Sodium Bicarbonate PO Not Given TID [facility]
--- NOTE | 2019-08-14 12:23 | Progress Note ---
Assessment and Plan Assessment and plan: Patient is a 29-year-old -Citizen Of [place] woman with a history of ESRD on hemodialysis. SLE/lupus, chronic pain syndrome, MRSA infection and hypertension who presented to [facility] ED on 07/26/2019 with bilateral leg pains, cramping and burning sensation. She was found to have hyperkalemia, fluid overload fevers, right labial abscess, leg wounds, with wound cultures positive for Escherichia coli. During hospital coarse, she developed new onset seizures on 07/30/2019, received Keppra and Ativan. She was seen by Neurologist, Dr. Lu, CT head negative, but patient has remained altered with lethargy, non-sensical speech, since first episode of seizure. Brain MRI done was negative for acute abnormalities. A second neurologist, , was consulted for second opinion on 08/02/2019. She had very high persist Persistent leukocytosis, ID evaluated, ordered C. difficile. She underwent LP with was negative for meningitis. She had CT abd/pelvis done which was concerning for severe necrotizing pancreatitis. General surgeon was consulted and recommended transfer to higher level of care which Dr. Andrea tried but it appears the transfer was denied. * Wound culture - E coli, whittaker sensitive * Blood culture 07/26/2019 no growth today * CSF 08/02/2019 no organisms, no leukocytes * Right labia drainage 08/02/2019 +E coli whittaker-sens, Enterococcus Severe acute necrotizing pancreatitis: General Surgeon, input noted, also d/w Dr. Nguyen, continue medical management New onset seizures: On Keppra, Severe Acute Metabolic encephalopathy; multifactorial E. coli Right labia abscess with suspected necrotizing fascitis s/p Right labia drainage 08/02/2019 +whittaker-sensitive E coli and now Enterococcus. 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 Myers, start PICC line and TPN Day 2 of TPN Day 3 since PICC line placed History Interval history: Patient was seen and examined. Follow-up on current diagnosis of AMS. No over night events reported to me. Imaging, nursing note, chart, labs and old chart reviewed. N/V resolved, patient is actually talking and following some commands. She is so deconditioned. Hospitalist Physical - Physical exam Narrative exam: Gen: unkempt, ill appearing NAD, Awake, talking and answering questions HEENT: scalp lesions with diffuse small 3mm ulcerations Neck: supple, adenopathy, no thyromegaly, no JVD CVS/Heart: Regular tachycardia, normal S1S2, pulses present bilaterally Chest/Lungs: CTA B, Symmetrical chest expansion, good air entry bilaterally GI/Abdomen: soft, NTND, good bowel sounds, no guarding or rebound /Bladder: no suprapubic tenderness, no CVA or paraspinal tenderness Extermity/Skin: obvious rash, scalp lesions with diffuse small 3mm ulcerations MSK: FROM x 4 Neuro: CN 2-12 grossly intact, no new focal deficits Psych: calm but confused - Constitutional Vitals: Temp Pulse Resp BP Pulse Ox 98.9 F 95 H 24 113/61 98 08/14/19 04:54 08/14/19 11:28 08/14/19 04:54 08/14/19 11:50 08/14/19 11:28 General appearance: Present: no acute distress, well-nourished Results - Labs CBC & Chem 7: 08/13/19 04:45 08/14/19 06:15 Labs: Laboratory Last Values WBC 21.4 K/mm3 (4.5-11.0) H 08/13/19 04:45 RBC 3.06 M/mm3 (3.65-5.03) L 08/13/19 04:45 Hgb 8.0 gm/dl (10.1-14.3) L 08/13/19 04:45 Hct 25.6 % (30.3-42.9) L 08/13/19 04:45 MCV 84 fl (79-97) 08/13/19 04:45 MCH 26 pg (28-32) L 08/13/19 04:45 MCHC 31 % (30-34) 08/13/19 04:45 RDW 17.5 % (13.2-15.2) H 08/13/19 04:45 Plt Count 170 K/mm3 (140-440) 08/13/19 04:45 Lymph # Brewery Representative 08/02/19 09:03 Add Manual Diff Complete 08/13/19 04:45 Total Counted 100 08/13/19 04:45 Seg Neuts % (Manual) 85.0 % (40.0-70.0) H 08/13/19 04:45 Band Neutrophils % 0 % 08/13/19 04:45 Lymphocytes % (Manual) 9.0 % (13.4-35.0) L 08/13/19 04:45 Reactive Lymphs % (Man) 0 % 08/13/19 04:45 Monocytes % (Manual) 4.0 % (0.0-7.3) 08/13/19 04:45 Eosinophils % (Manual) 0 % (0.0-4.3) 08/13/19 04:45 Basophils % (Manual) 1.0 % (0.0-1.8) 08/13/19 04:45 Metamyelocytes % 1.0 % 08/13/19 04:45 Myelocytes % 0 % 08/13/19 04:45 Promyelocytes % 0 % 08/13/19 04:45 Blast Cells % 0 % 08/13/19 04:45 Nucleated RBC % 1.0 % (0.0-0.9) H 08/13/19 04:45 Seg Neutrophils # Man 18.2 K/mm3 (1.8-7.7) H 08/13/19 04:45 Band Neutrophils # 0.0 K/mm3 08/13/19 04:45 Lymphocytes # (Manual) 1.9 K/mm3 (1.2-5.4) 08/13/19 04:45 Abs React Lymphs (Man) 0.0 K/mm3 08/13/19 04:45 Monocytes # (Manual) 0.9 K/mm3 (0.0-0.8) H 08/13/19 04:45 Eosinophils # (Manual) 0.0 K/mm3 (0.0-0.4) 08/13/19 04:45 Basophils # (Manual) 0.2 K/mm3 (0.0-0.1) H 08/13/19 04:45 Metamyelocytes # 0.2 K/mm3 08/13/19 04:45 Myelocytes # 0.0 K/mm3 08/13/19 04:45 Promyelocytes # 0.0 K/mm3 08/13/19 04:45 Blast Cells # 0.0 K/mm3 08/13/19 04:45 Pathologist Review 08/02/19 09:03 WBC Morphology Not Reportable 08/13/19 04:45 Hypersegmented Neuts Not Reportable 08/13/19 04:45 Hyposegmented Neuts Not Reportable 08/13/19 04:45 Hypogranular Neuts Not Reportable 08/13/19 04:45 Smudge Cells Not Reportable 08/13/19 04:45 Toxic Granulation Not Reportable 08/13/19 04:45 Toxic Vacuolation Not Reportable 08/13/19 04:45 Dohle Bodies Not Reportable 08/13/19 04:45 Pelger-Huet Anomaly Not Reportable 08/13/19 04:45 Rose Rods Not Reportable 08/13/19 04:45 Platelet Estimate Consistent w auto 08/13/19 04:45 Clumped Platelets Not Reportable 08/13/19 04:45 Plt Clumps, EDTA Not Reportable 08/13/19 04:45 Large Platelets Not Reportable 08/13/19 04:45 Giant Platelets Not Reportable 08/13/19 04:45 Platelet Satelliting Not Reportable 08/13/19 04:45 Plt Morphology Comment Not Reportable 08/13/19 04:45 RBC Morphology Not Reportable 08/13/19 04:45 Dimorphic RBCs Not Reportable 08/13/19 04:45 Polychromasia Few 08/13/19 04:45 Hypochromasia Few 08/13/19 04:45 Poikilocytosis Not Reportable 08/13/19 04:45 Anisocytosis 1+ 08/13/19 04:45 Microcytosis Few 08/13/19 04:45 Macrocytosis Few 08/13/19 04:45 Spherocytes Not Reportable 08/13/19 04:45 Pappenheimer Bodies Not Reportable 08/13/19 04:45 Sickle Cells Not Reportable 08/13/19 04:45 Target Cells Not Reportable 08/13/19 04:45 Tear Drop Cells Not Reportable 08/13/19 04:45 Ovalocytes Not Reportable 08/13/19 04:45 Helmet Cells Not Reportable 08/13/19 04:45 [place] Bodies Not Reportable 08/13/19 04:45 [place] Rings Not Reportable 08/13/19 04:45 [place] Cells Not Reportable 08/13/19 04:45 Bite Cells Not Reportable 08/13/19 04:45 Crenated Cell Not Reportable 08/13/19 04:45 Elliptocytes Not Reportable 08/13/19 04:45 Acanthocytes (Spur) Not Reportable 08/13/19 04:45 Rouleaux Not Reportable 08/13/19 04:45 Hemoglobin C Crystals Not Reportable 08/13/19 04:45 Schistocytes Not Reportable 08/13/19 04:45 Malaria parasites Not Reportable 08/13/19 04:45 ESR 78 mm/Hr (0-20) 07/26/19 05:25 Dinesh Bodies Not Reportable 08/13/19 04:45 Hem Pathologist Commnt No 08/13/19 04:45 PT 16.7 Sec. (12.2-14.9) H 07/26/19 06:31 INR 1.39 (0.87-1.13) H 07/26/19 06:31 APTT 41.1 Sec. (24.2-36.6) H 07/26/19 06:31 Sodium 139 mmol/L (137-145) 08/14/19 06:15 Potassium 3.5 mmol/L (3.6-5.0) L 08/14/19 06:15 Chloride 97.2 mmol/L (98-107) L 08/14/19 06:15 Carbon Dioxide 26 mmol/L (22-30) 08/14/19 06:15 Anion Gap 19 mmol/L 08/14/19 06:15 BUN 26 mg/dL (7-17) H 08/14/19 06:15 Creatinine 4.8 mg/dL (0.7-1.2) H 08/14/19 06:15 Estimated GFR 13 ml/min 08/14/19 06:15 BUN/Creatinine Ratio 5 % 08/14/19 06:15 Glucose 117 mg/dL (65-100) H 08/14/19 06:15 POC Glucose 123 (70-105) H 08/14/19 11:53 Hemoglobin A1c 5.9 % (4-6) 08/08/19 09:27 Lactic Acid 1.40 mmol/L (0.7-2.0) 08/02/19 15:24 Calcium 8.1 mg/dL (8.4-10.2) L 08/14/19 06:15 Phosphorus 3.60 mg/dL (2.5-4.5) D 08/14/19 06:15 Magnesium 2.10 mg/dL (1.7-2.3) 08/14/19 06:15 Iron 58 ug/dL (37-170) 08/03/19 04:15 TIBC 150 mcg/dL (250-450) L 08/03/19 04:15 Ferritin 5729.0 ng/mL (13.0-400.0) H 08/03/19 04:15 Total Bilirubin 0.30 mg/dL (0.1-1.2) 08/09/19 04:56 Direct Bilirubin < 0.2 mg/dL (0-0.2) 07/26/19 06:31 Indirect Bilirubin 0.1 mg/dL 07/26/19 06:31 AST 13 units/L (5-40) 08/09/19 04:56 ALT 5 units/L (7-56) L 08/09/19 04:56 Alkaline Phosphatase 86 units/L (35-129) 08/09/19 04:56 Total Creatine Kinase 43 units/L (30-135) 07/26/19 05:25 Troponin T 0.072 ng/mL (0.00-0.029) H 07/26/19 06:31 C-Reactive Protein 40.30 mg/dL (0.00-1.30) H 08/03/19 10:23 NT-Pro-B Natriuret Pep 38780 pg/mL (0-450) H 07/26/19 06:31 Total Protein 6.5 g/dL (6.3-8.2) 08/09/19 04:56 Albumin 2.6 g/dL (3.9-5) L 08/09/19 04:56 Albumin/Globulin Ratio 0.7 % 08/09/19 04:56 Triglycerides 261 mg/dL (2-149) H 08/03/19 04:15 Cholesterol 91 mg/dL (50-199) 07/26/19 06:31 LDL Cholesterol Direct 30 mg/dL (50-130) L 07/26/19 06:31 HDL Cholesterol 25 mg/dL (40-59) L 07/26/19 06:31 Cholesterol/HDL Ratio 3.64 % 07/26/19 06:31 Amylase 784 units/L (27-131) H 08/10/19 07:06 Lipase 279 units/L (13-60) H 08/12/19 Unknown Procalcitonin 22.18 ng/mL (<0.15) 08/02/19 16:38 HCG, Qual Negative (Negative) 07/30/19 02:40 HCG, Quant < 2 mIU/mL (0-4) 07/26/19 05:25 CSF Appearance Clear 08/01/19 10:40 CSF Color Colorless 08/01/19 10:40 CSF WBC 0 /mm3 (1-10) 08/01/19 10:40 CSF RBC 0 /mm3 (0-0) 08/01/19 10:40 CSF Seg Neutrophils 0 % (0-6) 08/01/19 10:40 CSF Lymphocytes % 0 % (40-80) 08/01/19 10:40 CSF Reactive Lymphs 0 % 08/01/19 10:40 CSF Monocytes % 0 % (15-45) 08/01/19 10:40 CSF Eosinophils % 0 % 08/01/19 10:40 CSF Basophils 0 % 08/01/19 10:40 CSF Pathologist Review C 08/01/19 10:40 CSF Glucose 57 mg/dL 08/01/19 10:40 CSF Total Protein 84 mg/dL 08/01/19 10:40 CSF VDRL Nonreactive (Nonreactive) 08/01/19 10:40 Random Vancomycin 14.9 ug/mL (0-40.0) 08/06/19 05:18 Double Strand DNA Ab See scanned result 07/30/19 11:40 Complement C3 107 mg/dL (83-193) 08/01/19 16:07 Complement C4 32 mg/dL (15-57) 08/01/19 16:07 RPR Nonreactive (Nonreactive) 07/26/19 05:25 Hepatitis A IgM Ab Non-reactive (NonReactive) 07/26/19 10:53 Hep Bs Antigen Non-reactive (Negative) 07/26/19 10:53 Hep B Core IgM Ab Non-reactive (NonReactive) 07/26/19 10:53 Hepatitis C Antibody Non-reactive (NonReactive) 07/26/19 10:53 Blood Type A POSITIVE 08/02/19 12:50 Antibody Screen Negative 08/02/19 12:50 Crossmatch See Detail 08/02/19 12:50 Active Medications - Current Medications Current Medications: Generic Name Dose Route Start Last Admin Trade Name Freq PRN Reason Stop Dose Admin Acetaminophen 650 mg 07/26/19 11:08 08/03/19 21:27 Tylenol PO 650 mg Q6H PRN Administration Pain, Mild (1-3) Albuterol 2.5 mg 07/26/19 15:39 Proventil IH QID PRN Wheezing Lipase/Protease/Amylase 1 each 07/31/19 08:26 Pancreazmick Diane 10,500 Unit FEEDTUBE PRN PRN For Clogged Feeding Tube Cyanocobalamin 1,000 mcg 07/27/19 10:00 08/14/19 11:48 Vitamin B-12 PO 1,000 mcg QDAY JOEL Administration Dextrose 25 ml 07/26/19 11:06 08/13/19 08:12 D50w (25gm) Syringe IV 25 ml PRN PRN Administration Hypoglycemia Epoetin Mitch 20,000 unit 08/13/19 08:34 08/13/19 19:02 Procrit SUB-Q 20,000 unit FAN PRN Administration hemodialysis Folic Acid 1 mg 07/27/19 10:00 08/14/19 11:48 Folvite PO 1 mg QDAY JOEL Administration Hydralazine HCl 10 mg 07/30/19 20:16 08/13/19 13:31 Apresoline IV 10 mg Q4HR PRN Administration Blood Pressure Hydroxychloroquine Sulfate 200 mg 07/27/19 10:00 08/14/19 11:39 Plaquenil PO 200 mg QDAY JOEL Administration Hydroxyzine HCl 50 mg 07/27/19 10:00 08/14/19 11:48 Atarax PO 50 mg QDAY JOEL Administration Sodium Chloride 100 mls @ 999 mls/hr 08/13/19 08:34 Nacl 0.9% IV FAN PRN Hypotension Amino Acids/Electrolytes/Dextrose 1,560 mls @ 65 mls/hr 08/13/19 20:00 08/13/19 21:57 Tpn Adult IV 08/14/19 19:59 65 mls/hr DAILY@2000 [facility] Administration Protocol Meropenem 500 mg in 50 mls @ 50 mls/hr 08/14/19 18:00 Merrem/Ns 500 Mg/50 Ml IV QPM [facility] Insulin Glargine 20 units 08/08/19 22:00 08/14/19 01:01 Lantus SUB-Q Not Given QHS [facility] Insulin Human Lispro 0 unit 08/08/19 13:00 08/14/19 06:05 Humalog SUB-Q Not Given Q6HR [facility] Protocol Labetalol HCl 300 mg 07/26/19 16:00 08/14/19 11:50 Normodyne PO Not Given BID [facility] Levetiracetam 500 mg 08/09/19 22:00 08/14/19 11:36 Keppra PO 500 mg BID [facility] Administration Losartan Potassium 50 mg 07/27/19 10:00 08/14/19 11:50 Cozaar PO Not Given QDAY [facility] Mycophenolate Mofetil 500 mg 07/27/19 10:00 08/14/19 11:38 Cellcept PO 500 mg QDAY [facility] Administration Ondansetron HCl 4 mg 07/29/19 23:31 08/13/19 13:30 Zofran IV 4 mg Q6H PRN Administration Nausea And Vomiting Oxycodone/Acetaminophen 1 tab 07/29/19 15:49 08/05/19 21:42 Percocet 5/325 PO 1 tab Q8H PRN Administration Pain, Moderate (4-6) Pantoprazole Sodium 40 mg 08/09/19 10:00 08/14/19 11:47 Protonix PO 40 mg BID [facility] Administration Prednisone 20 mg 07/27/19 10:00 08/14/19 11:37 Deltasone PO 20 mg QDAY [facility] Administration Sevelamer Carbonate 800 mg 07/26/19 16:30 08/14/19 08:52 Renvela PO Not Given 0730,1630 [facility] Simple Syrup 15 ml 07/31/19 08:26 Simple Syrup FEEDTUBE PRN PRN Hypoglycemia Simple Syrup 30 ml 07/31/19 08:26 Simple Syrup FEEDTUBE PRN PRN Hypoglycemia Sodium Bicarbonate 325 mg 07/31/19 08:26 Sodium Bicarbonate FEEDTUBE PRN PRN For Clogged Feeding Tube Sodium Bicarbonate 650 mg 08/08/19 14:00 08/14/19 08:52 Sodium Bicarbonate PO Not Given TID JOEL Nutrition/Malnutrition Assess - Dietary Evaluation Nutrition/Malnutrition Findings: Nutrition Notes Start: 07/26/19 14:40 Freq: Status: Active Protocol: Document 08/14/19 12:06 ADELFO (Rec: 08/14/19 12:11 NYEMMA [id number] [email or web address]) Nutrition Notes Initial or Follow up Reassessment Current Diagnosis CKD (stage V CKD),Hypertension Other Pertinent Diagnosis acute pancreatitis, on HD, MRSA, lupus, anemia, wounds Current Diet CPN at 65ml/hr Labs/Tests K 3.5 Cl 97.2 BUN 26 Cr 4.8 Pertinent Medications Reviewed Height 5 ft 3 in Weight 61.9 kg [place] Body Weight (kg) 52.27 BMI 24.1 Subjective/Other Information Day 2 PN. Percent of energy/protein needs met: 31% energy 74% pro Burn Absent Trauma Absent Minimum of two criteria Yes Energy Intake (severe) < or equal to 50% Estimated Energy Requirement > or equal to 5 days Muscle Mass Mild Depletion (non-severe) Fluid Accumulation Mild (non-severe) #3 Nutrition Diagnosis Malnutrition Diagnosis Progress(for reassessment Continues documentation) #2 Nutrition Diagnosis Increased nutrient needs ( specify in comment below) Diagnosis Progress(for reassessment Continues documentation) #1 Nutrition Diagnosis Inadequate oral intake Diagnosis Progress(for reassessment Continues documentation) Is patient on ventilator? No Is Patient Ambulatory and/or Out of Bed No REE-([facility]-confined to bed) 1571.892 Kcal/Kg value to use for calculation 29 Approximate Energy Requirements Using 1795 kcal/Kg Calculation Used for Recommendations Kcal/kg Additional Notes Pro needs >1.2g/kg: >74g/day Fluid needs 1-1.5L/day Nutrition Intervention Nutrition Support: Continue CPN at 65ml/hr: MVI, thiamine, 4.8% amino acids, 75 %/25% chloride/acetate. Osmolality: 1102 Kcal 640 Protein (gm) 75 Carbohydrates (gm) 100 Fat (gm) 0 Fluid (mL) 1,560 Fiber (gm) 0 Goal #1 PN to meet nutrient needs as best possible Follow-Up By: 08/15/19 Additional Comments Labs in am: Mg STANTON Phos
--- NOTE | 2019-08-14 14:22 | Progress Note ---
Assessment and Plan - Patient Problems (1) Pancreatitis Current Visit: Yes Status: Acute Qualifiers: Chronicity: acute Acute pancreatitis complication: unspecified Plan to address problem: Pt appears stable. I would stay with a clear liquid diet for now for comfort. TPN for nutrition. No surgical intervention is recommended at this time. Will be available if needed. Please call with questions. time=10min Subjective Date of service: 08/14/19 Patient Reports: Positive: other (Patient reports that she had a seizure last night and that was the cause of the emesis. Has not had any liquids this morning. ) Objective Vital Signs - 12hr 08/14/19 08/14/19 08/14/19 04:54 11:28 11:30 Temperature 98.9 F Pulse Rate 109 H 95 H Respiratory 24 Rate Blood Pressure 110/55 Blood Pressure 113/61 [Right] O2 Sat by Pulse 100 98 Oximetry 08/14/19 11:50 Temperature Pulse Rate Respiratory Rate Blood Pressure 113/61 Blood Pressure [Right] O2 Sat by Pulse Oximetry - General physical appearance no distress, no pain, other (currently working with PT) - Respiratory normal expansion, normal respiratory effort - Abdomen soft, not tender, bowel sounds hypoactive, not guarding, not rigid - Integumentary no rash, no growths, no abnormal pigmentation - Labs 08/13/19 04:45 08/14/19 06:15 Diabetes panel 08/14/19 Range/Units 06:15 Sodium 139 (137-145) mmol/L Potassium 3.5 L (3.6-5.0) mmol/L Chloride 97.2 L (98-107) mmol/L Carbon Dioxide 26 (22-30) mmol/L BUN 26 H (7-17) mg/dL Creatinine 4.8 H (0.7-1.2) mg/dL Glucose 117 H (65-100) mg/dL Calcium 8.1 L (8.4-10.2) mg/dL Calcium panel 08/14/19 Range/Units 06:15 Calcium 8.1 L (8.4-10.2) mg/dL Phosphorus 3.60 D (2.5-4.5) mg/dL Pituitary panel 08/14/19 Range/Units 06:15 Sodium 139 (137-145) mmol/L Potassium 3.5 L (3.6-5.0) mmol/L Chloride 97.2 L (98-107) mmol/L Carbon Dioxide 26 (22-30) mmol/L BUN 26 H (7-17) mg/dL Creatinine 4.8 H (0.7-1.2) mg/dL Glucose 117 H (65-100) mg/dL Calcium 8.1 L (8.4-10.2) mg/dL Adrenal panel 08/14/19 Range/Units 06:15 Sodium 139 (137-145) mmol/L Potassium 3.5 L (3.6-5.0) mmol/L Chloride 97.2 L (98-107) mmol/L Carbon Dioxide 26 (22-30) mmol/L BUN 26 H (7-17) mg/dL Creatinine 4.8 H (0.7-1.2) mg/dL Glucose 117 H (65-100) mg/dL Calcium 8.1 L (8.4-10.2) mg/dL
[2019-08-14] MEDS ORDERED: TPN ADULT IV SCH (20:00)
[2019-08-14] MEDS: MERREM/NS 500 MG/50 ML 500 MG/50 ML BAG IV SCH (20:04)
[2019-08-15] MEDS: HumaLOG SUB-Q SCH ×4 (00:30→17:00)
[2019-08-15 06:55] LABS: Calcium 8.4 mg/dL (8.4-10.2)
--- NOTE | 2019-08-15 07:01 | Progress Note ---
Assessment and Plan 1. ESRD: On maintenance hemodialysis three times a week, TTS schedule. 2. FEN: Monitor lytes. 3. Anemia: Epogen with HD. 4. New onset seizures: On Keppra. 5. Metabolic encephalopathy. 6. Sepsis. Vulvar abscess. Followed by ID. 7. Acute pancreatitis: Continue supportive care. On PPN / TPN. 8. History of lupus: On Cellcept, Plaquenil and Prednisone. Examination: General appearance: alert, appears stated age, not in distress HEENT: ATNC Respiratory: Clear to Ascultation Cardiology: regular, S1S2, no murmur Gastrointestinal: normoactive bowel sounds, no tenderness, not distended Integumentary: no rash Neurologic: alert, able to move extremities, some confusion noted Musculoskeletal: no edema Hemodialysis access: L arm AVF Subjective Date of service: 08/15/19 Principal diagnosis: pancreatitis Interval history: Patient was seen and examined at the bedside. Objective - Vital Signs Vital signs: Vital Signs - 12hr 08/14/19 08/14/19 08/15/19 21:01 22:00 05:54 Temperature 97.7 F 97.7 F Pulse Rate 102 H Respiratory 20 20 Rate Blood Pressure 135/94 146/97 O2 Sat by Pulse 100 96 Oximetry - Lab 08/13/19 04:45 08/15/19 06:00 Most recent lab results Calcium 8.4 mg/dL (8.4-10.2) 08/15/19 06:00 Phosphorus 4.10 mg/dL (2.5-4.5) 08/15/19 06:00 Magnesium 2.50 mg/dL (1.7-2.3) H 08/15/19 06:00 Medications & Allergies - Medications Allergies/Adverse Reactions: Allergies lactose Adverse Reaction (Verified 07/29/19 08:16) Unknown Home Medications: Home Medications Medication Instructions Recorded Confirmed Last Taken Type Gabapentin 300 mg PO 3XW 11/14/18 07/26/19 07/25/19 History ALBUTEROL NEB's [Proventil] 2.5 mg IH QID PRN 07/26/19 07/26/19 07/25/19 History Amitriptyline [Elavil] 25 mg PO QHS 07/26/19 07/26/19 07/25/19 History Amitriptyline [Elavil] 25 mg PO QHS 07/26/19 07/26/19 07/25/19 History Cyanocobalamin (Vitamin B-12) 1,000 mcg PO QDAY 07/26/19 07/26/19 07/25/19 History [Vitamin B-12] Folic Acid [Folvite] 1 mg PO QDAY 07/26/19 07/26/19 07/25/19 History Hydroxychloroquine [Plaquenil] 200 mg PO QDAY 07/26/19 07/26/19 07/25/19 History Ibuprofen [Motrin] 800 mg PO Q8HR PRN 07/26/19 07/26/19 07/25/19 History Labetalol HCl [Labetalol 300mg TAB] 300 mg PO Q12H 07/26/19 07/26/19 07/25/19 History Losartan [Cozaar] 50 mg PO QDAY 07/26/19 07/26/19 07/25/19 History Mirtazapine 7.5 mg PO QDAY 07/26/19 07/26/19 07/25/19 History Mycophenolate [Cellcept] 500 mg PO QDAY 07/26/19 07/26/19 07/25/19 History Pantoprazole [Protonix] 40 mg PO BID 07/26/19 07/26/19 07/25/19 History Pregabalin [Lyrica] 25 mg PO QDAY 07/26/19 07/26/19 07/25/19 History Sevelamer HCl [Renagel] 800 mg PO BIDWM 07/26/19 07/26/19 07/25/19 History hydrOXYzine HCL [Atarax] 50 mg PO QDAY 07/26/19 07/26/19 07/25/19 History predniSONE [Deltasone] 20 mg PO QDAY 07/26/19 07/26/19 07/25/19 History Active Medications: Generic Name Dose Route Start Last Admin Trade Name Freq PRN Reason Stop Dose Admin Acetaminophen 650 mg 07/26/19 11:08 08/03/19 21:27 Tylenol PO 650 mg Q6H PRN Administration Pain, Mild (1-3) Albuterol 2.5 mg 07/26/19 15:39 Proventil IH QID PRN Wheezing Lipase/Protease/Amylase 1 each 07/31/19 08:26 Tu Diane 10,500 Unit FEEDTUBE PRN PRN For Clogged Feeding Tube Cyanocobalamin 1,000 mcg 07/27/19 10:00 08/14/19 11:48 Vitamin B-12 PO 1,000 mcg QDAY JOEL Administration Dextrose 25 ml 07/26/19 11:06 08/13/19 08:12 D50w (25gm) Syringe IV 25 ml PRN PRN Administration Hypoglycemia Epoetin Mitch 20,000 unit 08/13/19 08:34 08/13/19 19:02 Procrit SUB-Q 20,000 unit FAN PRN Administration hemodialysis Folic Acid 1 mg 07/27/19 10:00 08/14/19 11:48 Folvite PO 1 mg QDAY JOEL Administration Hydralazine HCl 10 mg 07/30/19 20:16 08/13/19 13:31 Apresoline IV 10 mg Q4HR PRN Administration Blood Pressure Hydroxychloroquine Sulfate 200 mg 07/27/19 10:00 08/14/19 11:39 Plaquenil PO 200 mg QDAY JOEL Administration Hydroxyzine HCl 50 mg 07/27/19 10:00 08/14/19 11:48 Atarax PO 50 mg QDAY JOEL Administration Sodium Chloride 100 mls @ 999 mls/hr 08/13/19 08:34 Nacl 0.9% IV FAN PRN Hypotension Meropenem 500 mg in 50 mls @ 50 mls/hr 08/14/19 18:00 08/14/19 20:04 Merrem/Ns 500 Mg/50 Ml IV 50 mls/hr QPM JOEL Administration Amino Acids/Electrolytes/Dextrose 1,560 mls @ 65 mls/hr 08/14/19 20:00 08/14/19 20:59 Tpn Adult IV 08/15/19 19:59 65 mls/hr DAILY@2000 JOEL Administration Protocol Insulin Glargine 20 units 08/08/19 22:00 08/14/19 22:47 Lantus SUB-Q 20 units QHS JOEL Administration Insulin Human Lispro 0 unit 08/08/19 13:00 08/15/19 06:00 Humalog SUB-Q Not Given Q6HR ON LICENSE OF [facility] Protocol Labetalol HCl 300 mg 07/26/19 16:00 08/14/19 22:42 Normodyne PO 300 mg BID JOEL Administration Levetiracetam 500 mg 08/09/19 22:00 08/14/19 22:42 Keppra PO 500 mg BID JOEL Administration Lorazepam 0.5 mg 08/14/19 13:04 Ativan IV Q4H PRN Anxiety Losartan Potassium 50 mg 07/27/19 10:00 08/14/19 11:50 Cozaar PO Not Given QDAY JOEL Mycophenolate Mofetil 500 mg 07/27/19 10:00 08/14/19 11:38 Cellcept PO 500 mg QDAY JOEL Administration Ondansetron HCl 4 mg 07/29/19 23:31 08/13/19 13:30 Zofran IV 4 mg Q6H PRN Administration Nausea And Vomiting Oxycodone/Acetaminophen 1 tab 07/29/19 15:49 08/05/19 21:42 Percocet 5/325 PO 1 tab Q8H PRN Administration Pain, Moderate (4-6) Pantoprazole Sodium 40 mg 08/09/19 10:00 08/14/19 22:42 Protonix PO 40 mg BID JOEL Administration Prednisone 20 mg 07/27/19 10:00 08/14/19 11:37 Deltasone PO 20 mg QDAY JOEL Administration Sevelamer Carbonate 800 mg 07/26/19 16:30 08/14/19 19:27 Renvela PO Not Given 0730,1630 JOEL Simple Syrup 15 ml 07/31/19 08:26 Simple Syrup FEEDTUBE PRN PRN Hypoglycemia Simple Syrup 30 ml 07/31/19 08:26 Simple Syrup FEEDTUBE PRN PRN Hypoglycemia Sodium Bicarbonate 325 mg 07/31/19 08:26 Sodium Bicarbonate FEEDTUBE PRN PRN For Clogged Feeding Tube Sodium Bicarbonate 650 mg 08/08/19 14:00 08/14/19 21:01 Sodium Bicarbonate PO 650 mg TID JOEL Administration
[2019-08-15] MEDS: NORMODYNE PO SCH ×2 (10:14→22:34)
[2019-08-15] MEDS: PLAQUENIL PO SCH (10:14)
[2019-08-15] MEDS: COZAAR PO SCH (10:15)
[2019-08-15] MEDS: KEPPRA PO SCH ×2 (10:16→22:33)
[2019-08-15] MEDS: VITAMIN B-12 PO SCH (10:16)
[2019-08-15] MEDS: ATARAX PO SCH (10:16)
[2019-08-15] MEDS: FOLVITE PO SCH (10:16)
[2019-08-15] MEDS: DELTASONE PO SCH (10:16)
[2019-08-15] MEDS: PROTONIX PO SCH ×2 (10:17→22:33)
[2019-08-15] MEDS: RENVELA PO SCH ×2 (10:26→16:58)
[2019-08-15] MEDS: CELLCEPT PO SCH (10:26)
[2019-08-15 11:35] LABS: HIV-1 Antibody Differentiation SEE SCANNED RESULT; HIV-2 Antibody Differentiation SEE SCANNED RESULT
--- NOTE | 2019-08-15 12:07 | Progress Note ---
Assessment and Plan Cultures: Wound culture - E coli, whittaker sensitive Blood culture 07/26/2019 no growth today CSF 08/02/2019 no organisms, no leukocytes Right labia drainage 08/02/2019 +E coli pansens, Enterococcus A/P: 49 yo F PMHx ESRD on HD, lupus, previous MRSA infection now with wound infection, abdominal pain and seizures 1. Acute sepsis - leukocytosis with leukomoid reaction, stable to improving. Po ssible source necrotizing pancreatitis +/- right labia abscess +/- less likely sinusitis 2. Presumedly complicated acute pancreatitis: improving; ? CT with generalized edema is noted throughout the pancreas with surrounding moderate inflammation. No distinct pancreatic lesion is identified. Lipase 241. Repeat contrasted CT with severely abnormal pancreas with multiple focal areas of nonperfusion in the distal pancreas. Necrotizing pancreatitis could be considered. There is moderate to large fluid throughout the base of the mesentery and left abdomen which is grossly unchanged. On Meropenem x 14 days. 3. Right labia abscess v/s necrotizing fascitis: Staph vs polymicrobial. Right labia drainage 08/02/2019 +whittaker-sensitive E coli and now Enterococcus. [employer] on board. Procalcitonin 22 (high/unclear significance is the setting of ESRD). Repeat Contrasted CT did not include perineum 4. Wound infection right buttocks 5. Lupus, immunocompromised host - on plaquenil, cellcept and prednisone ? flare 6. Severe anemia ? plaquenil ?cellcept, ?GI bleed 7. Immunocompromised host 8. ESRD on HD - renally dose antibiotics Recs: - continue meropenem IV renally adjusted for necrotizing pancreatitis - D# 12 of 14 - CBC ordered for tomorrow AM Zuleyma Lee MD, FACP [facility] C: [phone] O: [phone] F: [phone] Subjective Date of service: 08/15/19 Principal diagnosis: pancreatitis Interval history: No fever. Mild abdominal pain. Resting comfortably. Passing gas. On TPN. Objective - Exam Narrative Exam: Physical Exam: Constitutional: Alert, cooperative. No acute distress Head, Ears, Nose: Normocephalic, atraumatic. External ears, nose normal Eyes: Conjunctivae/corneas clear. No icterus. No ptosis. Neck: Supple, no meningeal signs Cardiovascular: S1, S2 normal. Respiratory: Good air entry, clear to auscultation bilaterally GI: Mild diffuse tenderness; bowel sounds + Musculoskeletal: No pedal edema, no cyanosis. Skin: No rash or abscess, +multiple scattered old scars and +right hip superficial wound Hem/Lymphatic: No palpable cervical or supraclavicular nodes. No lymphangitis Psych: Mood ok. Affect normal Neurological: Awake, alert, oriented. No gross abnormality - Constitutional Vitals: Vital Signs Temp Pulse Resp BP Pulse Ox 97.7 F 94 H 20 102/79 96 08/15/19 05:54 08/15/19 10:15 08/15/19 05:54 08/15/19 10:15 08/14/19 22:00 Temperature -Last 24 Hours Temperature 97.7 F Temperature 97.7 F Temperature 98.2 F - Labs CBC & Chem 7: 08/13/19 04:45 08/15/19 06:00 Labs: Abnormal lab results 08/14/19 08/14/19 08/15/19 Range/Units 16:42 22:34 05:59 Chloride (98-107) mmol/L BUN (7-17) mg/dL Creatinine (0.7-1.2) mg/dL Glucose (65-100) mg/dL POC Glucose 145 H 134 H 111 H (70-105) Magnesium (1.7-2.3) mg/dL 08/15/19 Range/Units 06:00 Chloride 96.0 L (98-107) mmol/L BUN 54 H (7-17) mg/dL Creatinine 6.3 H (0.7-1.2) mg/dL Glucose 105 H (65-100) mg/dL POC Glucose (70-105) Magnesium 2.50 H (1.7-2.3) mg/dL
[2019-08-15] MEDS: SODIUM BICARBONATE PO SCH ×3 (12:42→22:33)
--- NOTE | 2019-08-15 14:04 | Progress Note ---
Assessment and Plan Assessment and plan: Patient is a 29-year-old -[place] woman with a history of ESRD on hemodialysis. SLE/lupus, chronic pain syndrome, MRSA infection and hypertension who presented to [facility] ED on 07/26/2019 with bilateral leg pains, cramping and burning sensation. She was found to have hyperkalemia, fluid overload fevers, right labial abscess, leg wounds, with wound cultures positive for Escherichia coli. During hospital coarse, she developed new onset seizures on 07/30/2019, received Keppra and Ativan. She was seen by Neurologist, Dr. Lu, CT head negative, but patient has remained altered with lethargy, non-sensical speech, since first episode of seizure. Brain MRI done was negative for acute abnormalities. A second neurologist, , was consulted for second opinion on 08/02/2019. She had very high persist Persistent leukocytosis, ID evaluated, ordered C. difficile. She underwent LP with was negative for meningitis. She had CT abd/pelvis done which was concerning for severe necrotizing pancreatitis. General surgeon was consulted and recommended transfer to higher level of care which Dr. Andrea tried but it appears the transfer was denied. * Wound culture - E coli, whittaker sensitive * Blood culture 07/26/2019 no growth today * CSF 08/02/2019 no organisms, no leukocytes * Right labia drainage 08/02/2019 +E coli whittaker-sens, Enterococcus Severe acute necrotizing pancreatitis: General Surgeon, input noted, also d/w Dr. Nguyen, continue medical management New onset seizures: On Keppra, Severe Acute Metabolic encephalopathy; multifactorial E. coli Right labia abscess with suspected necrotizing fascitis s/p Right labia drainage 08/02/2019 +whittaker-sensitive E coli and now Enterococcus. LOW [employer] input noted Sepsis from right labia abscess: treated with ABX, ID is following ESRD on HD: Nephrology is following Acute blood loss anemia, s/p 4 units of PRBC: GI input noted, continue PPI SLE with systemic skin lesion, even on scalp: continue home medication, treat symptomatically Hypotension resolved Hyperkalemia; resolved, secondary to end-stage renal disease End-stage renal disease; on hemodialysis Moderate malnutrition/hypoalbuminemia; [employer] Head DVT prophylaxis; no a/c due to anemia Patient did not tolerate advance diet with N/V and worsening abdominal pains, d/w GS Dr. Myers, start PICC line and TPN tolerating clear liquid diet at the moment Dispo: continue inpatient care, inpatient Rehab at [facility] vs home with TPN Day 3of TPN Day 4 since PICC line placed History Interval history: Patient was seen and examined. Follow-up on current diagnosis of AMS. No overnight events reported to me. Imaging, nursing note, chart, labs and old chart reviewed. N/V resolved, patient is actually talking and following some commands. She is so deconditioned. Hospitalist Physical - Physical exam Narrative exam: Gen: unkempt, ill appearing NAD, Awake, talking and answering questions HEENT: scalp lesions with diffuse small 3mm ulcerations Neck: supple, adenopathy, no thyromegaly, no JVD CVS/Heart: Regular tachycardia, normal S1S2, pulses present bilaterally Chest/Lungs: CTA B, Symmetrical chest expansion, good air entry bilaterally GI/Abdomen: soft, NTND, good bowel sounds, no guarding or rebound /Bladder: no suprapubic tenderness, no CVA or paraspinal tenderness Extermity/Skin: obvious rash, scalp lesions with diffuse small 3mm ulcerations MSK: FROM x 4 Neuro: CN 2-12 grossly intact, no new focal deficits Psych: calm but confused - Constitutional Vitals: Temp Pulse Resp BP Pulse Ox 97.5 F L 88 20 156/91 99 08/15/19 11:45 08/15/19 11:45 08/15/19 11:45 08/15/19 11:45 08/15/19 11:45 General appearance: Present: no acute distress, well-nourished Results - Labs CBC & Chem 7: 08/13/19 04:45 08/15/19 06:00 Labs: Laboratory Last Values WBC 21.4 K/mm3 (4.5-11.0) H 08/13/19 04:45 RBC 3.06 M/mm3 (3.65-5.03) L 08/13/19 04:45 Hgb 8.0 gm/dl (10.1-14.3) L 08/13/19 04:45 Hct 25.6 % (30.3-42.9) L 08/13/19 04:45 MCV 84 fl (79-97) 08/13/19 04:45 MCH 26 pg (28-32) L 08/13/19 04:45 MCHC 31 % (30-34) 08/13/19 04:45 RDW 17.5 % (13.2-15.2) H 08/13/19 04:45 Plt Count 170 K/mm3 (140-440) 08/13/19 04:45 Lymph # Inspecting And Testing Lead Hand 08/02/19 09:03 Add Manual Diff Complete 08/13/19 04:45 Total Counted 100 08/13/19 04:45 Seg Neuts % (Manual) 85.0 % (40.0-70.0) H 08/13/19 04:45 Band Neutrophils % 0 % 08/13/19 04:45 Lymphocytes % (Manual) 9.0 % (13.4-35.0) L 08/13/19 04:45 Reactive Lymphs % (Man) 0 % 08/13/19 04:45 Monocytes % (Manual) 4.0 % (0.0-7.3) 08/13/19 04:45 Eosinophils % (Manual) 0 % (0.0-4.3) 08/13/19 04:45 Basophils % (Manual) 1.0 % (0.0-1.8) 08/13/19 04:45 Metamyelocytes % 1.0 % 08/13/19 04:45 Myelocytes % 0 % 08/13/19 04:45 Promyelocytes % 0 % 08/13/19 04:45 Blast Cells % 0 % 08/13/19 04:45 Nucleated RBC % 1.0 % (0.0-0.9) H 08/13/19 04:45 Seg Neutrophils # Man 18.2 K/mm3 (1.8-7.7) H 08/13/19 04:45 Band Neutrophils # 0.0 K/mm3 08/13/19 04:45 Lymphocytes # (Manual) 1.9 K/mm3 (1.2-5.4) 08/13/19 04:45 Abs React Lymphs (Man) 0.0 K/mm3 08/13/19 04:45 Monocytes # (Manual) 0.9 K/mm3 (0.0-0.8) H 08/13/19 04:45 Eosinophils # (Manual) 0.0 K/mm3 (0.0-0.4) 08/13/19 04:45 Basophils # (Manual) 0.2 K/mm3 (0.0-0.1) H 08/13/19 04:45 Metamyelocytes # 0.2 K/mm3 08/13/19 04:45 Myelocytes # 0.0 K/mm3 08/13/19 04:45 Promyelocytes # 0.0 K/mm3 08/13/19 04:45 Blast Cells # 0.0 K/mm3 08/13/19 04:45 Pathologist Review 08/02/19 09:03 WBC Morphology Not Reportable 08/13/19 04:45 Hypersegmented Neuts Not Reportable 08/13/19 04:45 Hyposegmented Neuts Not Reportable 08/13/19 04:45 Hypogranular Neuts Not Reportable 08/13/19 04:45 Smudge Cells Not Reportable 08/13/19 04:45 Toxic Granulation Not Reportable 08/13/19 04:45 Toxic Vacuolation Not Reportable 08/13/19 04:45 Dohle Bodies Not Reportable 08/13/19 04:45 Pelger-Huet Anomaly Not Reportable 08/13/19 04:45 Roes Rods Not Reportable 08/13/19 04:45 Platelet Estimate Consistent w auto 08/13/19 04:45 Clumped Platelets Not Reportable 08/13/19 04:45 Plt Clumps, EDTA Not Reportable 08/13/19 04:45 Large Platelets Not Reportable 08/13/19 04:45 Giant Platelets Not Reportable 08/13/19 04:45 Platelet Satelliting Not Reportable 08/13/19 04:45 Plt Morphology Comment Not Reportable 08/13/19 04:45 RBC Morphology Not Reportable 08/13/19 04:45 Dimorphic RBCs Not Reportable 08/13/19 04:45 Polychromasia Few 08/13/19 04:45 Hypochromasia Few 08/13/19 04:45 Poikilocytosis Not Reportable 08/13/19 04:45 Anisocytosis 1+ 08/13/19 04:45 Microcytosis Few 08/13/19 04:45 Macrocytosis Few 08/13/19 04:45 Spherocytes Not Reportable 08/13/19 04:45 Pappenheimer Bodies Not Reportable 08/13/19 04:45 Sickle Cells Not Reportable 08/13/19 04:45 Target Cells Not Reportable 08/13/19 04:45 Tear Drop Cells Not Reportable 08/13/19 04:45 Ovalocytes Not Reportable 08/13/19 04:45 Helmet Cells Not Reportable 08/13/19 04:45 Benavidez-Helmetta Bodies Not Reportable 08/13/19 04:45 [place] Rings Not Reportable 08/13/19 04:45 [place] Cells Not Reportable 08/13/19 04:45 Bite Cells Not Reportable 08/13/19 04:45 Crenated Cell Not Reportable 08/13/19 04:45 Elliptocytes Not Reportable 08/13/19 04:45 Acanthocytes (Spur) Not Reportable 08/13/19 04:45 Rouleaux Not Reportable 08/13/19 04:45 Hemoglobin C Crystals Not Reportable 08/13/19 04:45 Schistocytes Not Reportable 08/13/19 04:45 Malaria parasites Not Reportable 08/13/19 04:45 ESR 78 mm/Hr (0-20) 07/26/19 05:25 Dinesh Bodies Not Reportable 08/13/19 04:45 Hem Pathologist Commnt No 08/13/19 04:45 PT 16.7 Sec. (12.2-14.9) H 07/26/19 06:31 INR 1.39 (0.87-1.13) H 07/26/19 06:31 APTT 41.1 Sec. (24.2-36.6) H 07/26/19 06:31 Sodium 139 mmol/L (137-145) 08/15/19 06:00 Potassium 4.7 mmol/L (3.6-5.0) D 08/15/19 06:00 Chloride 96.0 mmol/L (98-107) L 08/15/19 06:00 Carbon Dioxide 24 mmol/L (22-30) 08/15/19 06:00 Anion Gap 24 mmol/L 08/15/19 06:00 BUN 54 mg/dL (7-17) H 08/15/19 06:00 Creatinine 6.3 mg/dL (0.7-1.2) H 08/15/19 06:00 Estimated GFR 9 ml/min 08/15/19 06:00 BUN/Creatinine Ratio 9 % 08/15/19 06:00 Glucose 105 mg/dL (65-100) H 08/15/19 06:00 POC Glucose 84 (70-105) 08/15/19 11:50 Hemoglobin A1c 5.9 % (4-6) 08/08/19 09:27 Lactic Acid 1.40 mmol/L (0.7-2.0) 08/02/19 15:24 Calcium 8.4 mg/dL (8.4-10.2) 08/15/19 06:00 Phosphorus 4.10 mg/dL (2.5-4.5) 08/15/19 06:00 Magnesium 2.50 mg/dL (1.7-2.3) H 08/15/19 06:00 Iron 58 ug/dL (37-170) 08/03/19 04:15 TIBC 150 mcg/dL (250-450) L 08/03/19 04:15 Ferritin 5729.0 ng/mL (13.0-400.0) H 08/03/19 04:15 Total Bilirubin 0.30 mg/dL (0.1-1.2) 08/09/19 04:56 Direct Bilirubin < 0.2 mg/dL (0-0.2) 07/26/19 06:31 Indirect Bilirubin 0.1 mg/dL 07/26/19 06:31 AST 13 units/L (5-40) 08/09/19 04:56 ALT 5 units/L (7-56) L 08/09/19 04:56 Alkaline Phosphatase 86 units/L (35-129) 08/09/19 04:56 Total Creatine Kinase 43 units/L (30-135) 07/26/19 05:25 Troponin T 0.072 ng/mL (0.00-0.029) H 07/26/19 06:31 C-Reactive Protein 40.30 mg/dL (0.00-1.30) H 08/03/19 10:23 NT-Pro-B Natriuret Pep 74195 pg/mL (0-450) H 07/26/19 06:31 Total Protein 6.5 g/dL (6.3-8.2) 08/09/19 04:56 Albumin 2.6 g/dL (3.9-5) L 08/09/19 04:56 Albumin/Globulin Ratio 0.7 % 08/09/19 04:56 Triglycerides 261 mg/dL (2-149) H 08/03/19 04:15 Cholesterol 91 mg/dL (50-199) 07/26/19 06:31 LDL Cholesterol Direct 30 mg/dL (50-130) L 07/26/19 06:31 HDL Cholesterol 25 mg/dL (40-59) L 07/26/19 06:31 Cholesterol/HDL Ratio 3.64 % 07/26/19 06:31 Amylase 784 units/L (27-131) H 08/10/19 07:06 Lipase 279 units/L (13-60) H 08/12/19 Unknown Procalcitonin 22.18 ng/mL (<0.15) 08/02/19 16:38 HCG, Qual Negative (Negative) 07/30/19 02:40 HCG, Quant < 2 mIU/mL (0-4) 07/26/19 05:25 CSF Appearance Clear 08/01/19 10:40 CSF Color Colorless 08/01/19 10:40 CSF WBC 0 /mm3 (1-10) 08/01/19 10:40 CSF RBC 0 /mm3 (0-0) 08/01/19 10:40 CSF Seg Neutrophils 0 % (0-6) 08/01/19 10:40 CSF Lymphocytes % 0 % (40-80) 08/01/19 10:40 CSF Reactive Lymphs 0 % 08/01/19 10:40 CSF Monocytes % 0 % (15-45) 08/01/19 10:40 CSF Eosinophils % 0 % 08/01/19 10:40 CSF Basophils 0 % 08/01/19 10:40 CSF Pathologist Review C 08/01/19 10:40 CSF Glucose 57 mg/dL 08/01/19 10:40 CSF Total Protein 84 mg/dL 08/01/19 10:40 CSF VDRL Nonreactive (Nonreactive) 08/01/19 10:40 Random Vancomycin 14.9 ug/mL (0-40.0) 08/06/19 05:18 Double Strand DNA Ab See scanned result 07/30/19 11:40 Complement C3 107 mg/dL (83-193) 08/01/19 16:07 Complement C4 32 mg/dL (15-57) 08/01/19 16:07 RPR Nonreactive (Nonreactive) 09/24/19 05:25 Hepatitis A IgM Ab Non-reactive (NonReactive) 07/26/19 10:53 Hep Bs Antigen Non-reactive (Negative) 07/26/19 10:53 Hep B Core IgM Ab Non-reactive (NonReactive) 07/26/19 10:53 Hepatitis C Antibody Non-reactive (NonReactive) 07/26/19 10:53 HIV-1 Antibody See scanned result 08/01/19 13:17 HIV-2 Ab (Immunoblot) See scanned result 08/01/19 13:17 Blood Type A POSITIVE 08/02/19 12:50 Antibody Screen Negative 08/02/19 12:50 Crossmatch See Detail 08/02/19 12:50 Active Medications - Current Medications Current Medications: Generic Name Dose Route Start Last Admin Trade Name Freq PRN Reason Stop Dose Admin Acetaminophen 650 mg 07/26/19 11:08 08/03/19 21:27 Tylenol PO 650 mg Q6H PRN Administration Pain, Mild (1-3) Albuterol 2.5 mg 07/26/19 15:39 Proventil IH QID PRN Wheezing Lipase/Protease/Amylase 1 each 07/31/19 08:26 Pancreaze 10,500 Unit FEEDTUBE PRN PRN For Clogged Feeding Tube Cyanocobalamin 1,000 mcg 07/27/19 10:00 08/15/19 10:16 Vitamin B-12 PO 1,000 mcg QDAY JOEL Administration Dextrose 25 ml 07/26/19 11:06 08/13/19 08:12 D50w (25gm) Syringe IV 25 ml PRN PRN Administration Hypoglycemia Epoetin Mitch 20,000 unit 08/13/19 08:34 08/13/19 19:02 Procrit SUB-Q 20,000 unit FAN PRN Administration hemodialysis Folic Acid 1 mg 07/27/19 10:00 08/15/19 10:16 Folvite PO 1 mg QDAY JOEL Administration Hydralazine HCl 10 mg 07/30/19 20:16 08/13/19 13:31 Apresoline IV 10 mg Q4HR PRN Administration Blood Pressure Hydroxychloroquine Sulfate 200 mg 07/27/19 10:00 08/15/19 10:14 Plaquenil PO 200 mg QDAY JOEL Administration Hydroxyzine HCl 50 mg 07/27/19 10:00 08/15/19 10:16 Atarax PO 50 mg QDAY JOEL Administration Sodium Chloride 100 mls @ 999 mls/hr 08/13/19 08:34 Nacl 0.9% IV FAN PRN Hypotension Meropenem 500 mg in 50 mls @ 50 mls/hr 08/14/19 18:00 08/14/19 20:04 Merrem/Ns 500 Mg/50 Ml IV 50 mls/hr QPM JOEL Administration Amino Acids/Electrolytes/Dextrose 1,560 mls @ 65 mls/hr 08/14/19 20:00 08/14/19 20:59 Tpn Adult IV 08/15/19 19:59 65 mls/hr DAILY@1999 JOEL Administration Protocol Amino Acids/Electrolytes/Dextrose 1,560 mls @ 65 mls/hr 08/15/19 20:00 Tpn Adult IV 08/16/19 19:59 DAILY@1999 [facility] Protocol Insulin Glargine 20 units 08/08/19 22:00 08/14/19 22:47 Lantus SUB-Q 20 units QHS JOEL Administration Insulin Human Lispro 0 unit 08/08/19 13:00 08/15/19 12:42 Humalog SUB-Q Not Given Q6HR [facility] Protocol Labetalol HCl 300 mg 07/26/19 16:00 08/15/19 10:14 Normodyne PO 300 mg BID JOEL Administration Levetiracetam 500 mg 08/09/19 22:00 08/15/19 10:16 Keppra PO 500 mg BID JOEL Administration Lorazepam 0.5 mg 08/14/19 13:04 Ativan IV Q4H PRN Anxiety Losartan Potassium 50 mg 07/27/19 10:00 08/15/19 10:15 Cozaar PO 50 mg QDAY JOEL Administration Mycophenolate Mofetil 500 mg 07/27/19 10:00 08/15/19 10:26 Cellcept PO 500 mg QDAY JOEL Administration Ondansetron HCl 4 mg 07/29/19 23:31 08/13/19 13:30 Zofran IV 4 mg Q6H PRN Administration Nausea And Vomiting Oxycodone/Acetaminophen 1 tab 07/29/19 15:49 08/05/19 21:42 Percocet 5/325 PO 1 tab Q8H PRN Administration Pain, Moderate (4-6) Pantoprazole Sodium 40 mg 08/09/19 10:00 08/15/19 10:17 Protonix PO 40 mg BID JOEL Administration Prednisone 20 mg 07/27/19 10:00 08/15/19 10:16 Deltasone PO 20 mg QDAY JOEL Administration Sevelamer Carbonate 800 mg 07/26/19 16:30 08/15/19 10:26 Renvela PO 800 mg 0730,1630 JOEL Administration Simple Syrup 15 ml 07/31/19 08:26 Simple Syrup FEEDTUBE PRN PRN Hypoglycemia Simple Syrup 30 ml 07/31/19 08:26 Simple Syrup FEEDTUBE PRN PRN Hypoglycemia Sodium Bicarbonate 325 mg 07/31/19 08:26 Sodium Bicarbonate FEEDTUBE PRN PRN For Clogged Feeding Tube Sodium Bicarbonate 650 mg 08/08/19 14:00 08/15/19 13:10 Sodium Bicarbonate PO 650 mg TID JOEL Administration Nutrition/Malnutrition Assess - Dietary Evaluation Nutrition/Malnutrition Findings: Nutrition Notes Start: 07/26/19 14:40 Freq: Status: Active Protocol: Document 08/15/19 10:47 LM (Rec: 08/15/19 10:57 LM [id number]) Nutrition Notes Initial or Follow up Reassessment Current Diagnosis CKD (stage V CKD),Hypertension Other Pertinent Diagnosis acute pancreatitis, on HD, MRSA, lupus, anemia, wounds Current Diet CPN at 65ml/hr Labs/Tests BUN 54 Cr 6.3 BG 105 Mag 2.5 Pertinent Medications Reviewed Height 5 ft 3 in Weight [address] Body Weight (kg) 52.27 BMI 24.0 Subjective/Other Information TPN day 3 Percent of energy/protein needs met: 36%/100% Burn Absent Trauma Absent Minimum of two criteria Yes Energy Intake (severe) < or equal to 50% Estimated Energy Requirement > or equal to 5 days Muscle Mass Mild Depletion (non-severe) Fluid Accumulation Mild (non-severe) #3 Nutrition Diagnosis Malnutrition Diagnosis Progress(for reassessment Continues documentation) #2 Nutrition Diagnosis Increased nutrient needs ( specify in comment below) Diagnosis Progress(for reassessment Continues documentation) #1 Nutrition Diagnosis Inadequate oral intake Diagnosis Progress(for reassessment Continues documentation) Is patient on ventilator? No Is Patient Ambulatory and/or Out of Bed No REE-([place]-confined to bed) 1567.092 Kcal/Kg value to use for calculation 29 Approximate Energy Requirements Using 1784 kcal/Kg Calculation Used for Recommendations Kcal/kg Additional Notes Pro needs >1.2g/kg: >74g/day Fluid needs 1-1.5L/day Nutrition Intervention Nutrition Support: Continue CPN at 65ml/hr: MVI, thiamine, 5.4% amino acids, 20 mEq K, 0 mEq Mg Osmolality: 1310 Kcal 935 Protein (gm) 85 Carbohydrates (gm) 175 Fat (gm) 0 Fluid (mL) 1,560 Goal #1 PN to meet nutrient needs as best possible Anticipated Discharge Needs: Unable to identify at this time Follow-Up By: 08/16/19 Additional Comments Labs in am: BMP, Mg, Phos
[2019-08-15] MEDS: SIMPLE SYRUP FEEDTUBE PRN ×2 (16:50→22:33)
[2019-08-15] MEDS: MERREM/NS 500 MG/50 ML 500 MG/50 ML BAG IV SCH (16:59)
[2019-08-15] MEDS ORDERED: TPN ADULT 1,560 ML IV SCH (20:00)
[2019-08-15] MEDS: LANTUS SUB-Q SCH (22:33)
[2019-08-15] MEDS: PERCOCET 5/325 PO PRN (23:57)
[2019-08-16] MEDS: HumaLOG SUB-Q SCH ×4 (00:12→18:00)
[2019-08-16 06:08] LABS: Calcium 8.2 mg/dL (8.4-10.2)
[2019-08-16] MEDS ORDERED: NACL 0.9% 100 ML IV PRN (06:34)
[2019-08-16] MEDS: RENVELA PO SCH ×2 (09:00→19:12)
[2019-08-16] MEDS: SODIUM BICARBONATE PO SCH ×3 (09:01→23:27)
--- NOTE | 2019-08-16 09:32 | Progress Note ---
Assessment and Plan 1. ESRD: On maintenance hemodialysis three times a week, TTS schedule. 2. FEN: Hyperkalemia, HD today. Monitor lytes. 3. Anemia: Epogen with HD. 4. New onset seizures: On Keppra. 5. Metabolic encephalopathy. 6. Sepsis. Vulvar abscess. Followed by ID. 7. Acute pancreatitis: Continue supportive care. On PPN / TPN. 8. History of lupus: On Cellcept, Plaquenil and Prednisone. Examination: General appearance: alert, appears stated age, not in distress HEENT: ATNC Respiratory: Clear to Ascultation Cardiology: regular, S1S2, no murmur Gastrointestinal: normoactive bowel sounds, no tenderness, not distended Integumentary: no rash Neurologic: alert, able to move extremities, some confusion noted Musculoskeletal: no edema Hemodialysis access: L arm AVF Subjective Date of service: 08/16/19 Principal diagnosis: pancreatitis Interval history: Patient was seen and examined at the bedside. Objective - Vital Signs Vital signs: Vital Signs - 12hr 08/15/19 08/15/19 08/16/19 21:39 22:34 04:42 Temperature 98.6 F 98.3 F Pulse Rate 100 H Respiratory 24 20 Rate Blood Pressure 125/82 125/82 143/88 O2 Sat by Pulse 99 Oximetry - Lab 08/13/19 04:45 08/16/19 05:15 Most recent lab results Calcium 8.2 mg/dL (8.4-10.2) L 08/16/19 05:15 Phosphorus 3.50 mg/dL (2.5-4.5) 08/16/19 05:15 Magnesium 2.70 mg/dL (1.7-2.3) H 08/16/19 05:15 Medications & Allergies - Medications Allergies/Adverse Reactions: Allergies lactose Adverse Reaction (Verified 07/29/19 08:16) Unknown Home Medications: Home Medications Medication Instructions Recorded Confirmed Last Taken Type Gabapentin 300 mg PO 3XW 11/14/18 07/26/19 07/25/19 History ALBUTEROL NEB's [Proventil] 2.5 mg IH QID PRN 07/26/19 07/26/19 07/25/19 History Amitriptyline [Elavil] 25 mg PO QHS 07/26/19 07/26/19 07/25/19 History Amitriptyline [Elavil] 25 mg PO QHS 07/26/19 07/26/19 07/25/19 History Cyanocobalamin (Vitamin B-12) 1,000 mcg PO QDAY 07/26/19 07/26/19 07/25/19 History [Vitamin B-12] Folic Acid [Folvite] 1 mg PO QDAY 07/26/19 07/26/19 07/25/19 History Hydroxychloroquine [Plaquenil] 200 mg PO QDAY 07/26/19 07/26/19 07/25/19 History Ibuprofen [Motrin] 800 mg PO Q8HR PRN 07/26/19 07/26/19 07/25/19 History Labetalol HCl [Labetalol 300mg TAB] 300 mg PO Q12H 07/26/19 07/26/19 07/25/19 History Losartan [Cozaar] 50 mg PO QDAY 07/26/19 07/26/19 07/25/19 History Mirtazapine 7.5 mg PO QDAY 07/26/19 07/26/19 07/25/19 History Mycophenolate [Cellcept] 500 mg PO QDAY 07/26/19 07/26/19 07/25/19 History Pantoprazole [Protonix] 40 mg PO BID 07/26/19 07/26/19 07/25/19 History Pregabalin [Lyrica] 25 mg PO QDAY 07/26/19 07/26/19 07/25/19 History Sevelamer HCl [Renagel] 800 mg PO BIDWM 07/26/19 07/26/19 07/25/19 History hydrOXYzine HCL [Atarax] 50 mg PO QDAY 07/26/19 07/26/19 07/25/19 History predniSONE [Deltasone] 20 mg PO QDAY 07/26/19 07/26/19 07/25/19 History Active Medications: Generic Name Dose Route Start Last Admin Trade Name Freq PRN Reason Stop Dose Admin Acetaminophen 650 mg 07/26/19 11:08 08/03/19 21:27 Tylenol PO 650 mg Q6H PRN Administration Pain, Mild (1-3) Albuterol 2.5 mg 07/26/19 15:39 Proventil IH QID PRN Wheezing Lipase/Protease/Amylase 1 each 07/31/19 08:26 Pancremarcella Diane 10,500 Unit FEEDTUBE PRN PRN For Clogged Feeding Tube Cyanocobalamin 1,000 mcg 07/27/19 10:00 08/15/19 10:16 Vitamin B-12 PO 1,000 mcg QDAY JOEL Administration Dextrose 25 ml 07/26/19 11:06 08/13/19 08:12 D50w (25gm) Syringe IV 25 ml PRN PRN Administration Hypoglycemia Epoetin Mitch 20,000 unit 08/13/19 08:34 08/13/19 19:02 Procrit SUB-Q 20,000 unit FAN PRN Administration hemodialysis Folic Acid 1 mg 07/27/19 10:00 08/15/19 10:16 Folvite PO 1 mg QDAY JOEL Administration Hydralazine HCl 10 mg 07/30/19 20:16 08/13/19 13:31 Apresoline IV 10 mg Q4HR PRN Administration Blood Pressure Hydroxychloroquine Sulfate 200 mg 07/27/19 10:00 08/15/19 10:14 Plaquenil PO 200 mg QDAY JOEL Administration Hydroxyzine HCl 50 mg 07/27/19 10:00 08/15/19 10:16 Atarax PO 50 mg QDAY JOEL Administration Meropenem 500 mg in 50 mls @ 50 mls/hr 08/14/19 18:00 08/15/19 16:59 Merrem/Ns 500 Mg/50 Ml IV 50 mls/hr QPM JOEL Administration Amino Acids/Electrolytes/Dextrose 1,560 mls @ 65 mls/hr 08/15/19 20:00 08/15 22:30 Tpn Adult IV 08/16/19 19:59 65 mls/hr DAILY@2000 JOEL Administration Protocol Sodium Chloride 100 mls @ 999 mls/hr 08/16/19 06:34 Nacl 0.9% IV FAN PRN Hypotension Insulin Glargine 20 units 08/08/19 22:00 08/15/19 22:33 Lantus SUB-Q Not Given QHS [facility] Insulin Human Lispro 0 unit 08/08/19 13:00 08/16/19 06:16 Humalog SUB-Q Not Given Q6HR [facility] Protocol Labetalol HCl 300 mg 07/26/19 16:00 08/15/19 22:34 Normodyne PO 300 mg BID JOEL Administration Levetiracetam 500 mg 08/09/19 22:00 08/15/19 22:33 Keppra PO 500 mg BID JOEL Administration Lorazepam 0.5 mg 08/14/19 13:04 Ativan IV Q4H PRN Anxiety Losartan Potassium 50 mg 07/27/19 10:00 08/15/19 10:15 Cozaar PO 50 mg QDAY JOEL Administration Mycophenolate Mofetil 500 mg 07/27/19 10:00 08/15/19 10:26 Cellcept PO 500 mg QDAY JOEL Administration Ondansetron HCl 4 mg 07/29/19 23:31 08/13/19 13:30 Zofran IV 4 mg Q6H PRN Administration Nausea And Vomiting Oxycodone/Acetaminophen 1 tab 07/29/19 15:49 08/15/19 23:57 Percocet 5/325 PO 1 tab Q8H PRN Administration Pain, Moderate (4-6) Pantoprazole Sodium 40 mg 08/09/19 10:00 08/15/19 22:33 Protonix PO 40 mg BID JOEL Administration Prednisone 20 mg 07/27/19 10:00 08/15/19 10:16 Deltasone PO 20 mg QDAY JOEL Administration Sevelamer Carbonate 800 mg 07/26/19 16:30 08/16/19 09:00 Renvela PO 800 mg 0730,1630 JOEL Administration Simple Syrup 15 ml 07/31/19 08:26 08/15/19 22:33 Simple Syrup FEEDTUBE 15 ml PRN PRN Administration Hypoglycemia Simple Syrup 30 ml 07/31/19 08:26 Simple Syrup FEEDTUBE PRN PRN Hypoglycemia Sodium Bicarbonate 325 mg 07/31/19 08:26 Sodium Bicarbonate FEEDTUBE PRN PRN For Clogged Feeding Tube Sodium Bicarbonate 650 mg 08/08/19 14:00 08/16/19 09:01 Sodium Bicarbonate PO 650 mg TID JOEL Administration
--- NOTE | 2019-08-16 14:03 | Progress Note ---
Assessment and Plan Cultures: Wound culture - E coli, whittaker sensitive Blood culture 07/26/2019 no growth today CSF 08/02/2019 no organisms, no leukocytes Right labia drainage 08/02/2019 +E coli pansens, Enterococcus A/P: 49 yo F PMHx ESRD on HD, lupus, previous MRSA infection now with wound infection, abdominal pain and seizures 1. Acute sepsis - leukocytosis with leukomoid reaction, stable to improving. Po ssible source necrotizing pancreatitis +/- right labia abscess +/- less likely sinusitis 2. Presumedly complicated acute pancreatitis: improving; ? CT with generalized edema is noted throughout the pancreas with surrounding moderate inflammation. No distinct pancreatic lesion is identified. Lipase 241. Repeat contrasted CT with severely abnormal pancreas with multiple focal areas of nonperfusion in the distal pancreas. Necrotizing pancreatitis could be considered. There is moderate to large fluid throughout the base of the mesentery and left abdomen which is grossly unchanged. On Meropenem x 14 days. 3. Right labia abscess: Right labia drainage 08/02/2019 +whittaker-sensitive E coli and Enterococcus. [employer] on board. Procalcitonin 22 (high/unclear significance is the setting of ESRD). Repeat Contrasted CT did not include perineum. Drainage has resolved. 4. Wound infection right buttocks 5. Lupus, immunocompromised host - on plaquenil, cellcept and prednisone ? flare 6. Severe anemia ? plaquenil ?cellcept, ?GI bleed 7. Immunocompromised host 8. ESRD on HD - renally dose antibiotics Recs: - continue meropenem IV renally adjusted for necrotizing pancreatitis - D# 13 of - CBC re-ordered for tomorrow AM Zuleyma Lee MD, FACP [facility] ([facility]) C: [phone] O: [phone] F: [phone] Subjective Date of service: 08/16/19 Principal diagnosis: pancreatitis Interval history: No fever. Mild abdominal pain. States she had a BM last evening. Passing gas. Remains on TPN. Objective - Exam Narrative Exam: Physical Exam: Constitutional: Alert, cooperative. No acute distress Head, Ears, Nose: Normocephalic, atraumatic. External ears, nose normal Eyes: Conjunctivae/corneas clear. No icterus. No ptosis. Neck: Supple, no meningeal signs Cardiovascular: S1, S2 normal. Respiratory: Good air entry, clear to auscultation bilaterally GI: soft, non tender; bowel sounds + Musculoskeletal: No pedal edema, no cyanosis. Skin: No rash or abscess, +multiple scattered old scars and +right hip superficial wound Hem/Lymphatic: No palpable cervical or supraclavicular nodes. No lymphangitis Psych: Mood ok. Affect normal Neurological: Awake, alert, oriented. No gross abnormality - Constitutional Vitals: Vital Signs Temp Pulse Resp BP Pulse Ox 98.3 F 100 H 20 143/88 99 08/16/19 04:42 08/15/19 21:39 08/16/19 04:42 08/16/19 04:42 08/15/19 21:39 Temperature -Last 24 Hours Temperature 98.3 F Temperature 98.6 F Temperature 98.0 F - Labs CBC & Chem 7: 08/13/19 04:45 08/16/19 05:15 Labs: Abnormal lab results 08/15/19 08/15/19 08/16/19 Range/Units 16:29 21:48 00:08 Sodium (137-145) mmol/L Potassium (3.6-5.0) mmol/L Chloride (98-107) mmol/L Carbon Dioxide (22-30) mmol/L BUN (7-17) mg/dL Creatinine (0.7-1.2) mg/dL POC Glucose 68 L 69 L 120 H (70-105) Calcium (8.4-10.2) mg/dL Magnesium (1.7-2.3) mg/dL 08/16/19 08/16/19 08/16/19 Range/Units 05:15 05:30 07:48 Sodium 133 L (137-145) mmol/L Potassium 5.7 H D (3.6-5.0) mmol/L Chloride 93.8 L (98-107) mmol/L Carbon Dioxide 20 L (22-30) mmol/L BUN 74 H (7-17) mg/dL Creatinine 7.4 H (0.7-1.2) mg/dL POC Glucose 106 H 113 H (70-105) Calcium 8.2 L (8.4-10.2) mg/dL Magnesium 2.70 H (1.7-2.3) mg/dL
[2019-08-16] MEDS: DELTASONE PO SCH (14:25)
[2019-08-16] MEDS: KEPPRA PO SCH ×2 (14:25→23:27)
[2019-08-16] MEDS: FOLVITE PO SCH (14:25)
[2019-08-16] MEDS: ATARAX PO SCH (14:26)
[2019-08-16] MEDS: PLAQUENIL PO SCH (14:26)
[2019-08-16] MEDS: VITAMIN B-12 PO SCH (14:26)
[2019-08-16] MEDS: PROTONIX PO SCH ×2 (14:26→23:28)
[2019-08-16] MEDS: CELLCEPT PO SCH (14:28)
--- NOTE | 2019-08-16 18:37 | Progress Note ---
Assessment and Plan - Patient Problems (1) Acute metabolic encephalopathy Current Visit: Yes Status: Acute Plan to address problem: Acute metabolic encephalopathy multifactorial status post seizure disorder status post sepsis with necrotizing pancreatitis. Will is malnutrition and dehydration. Patient appears at this time to have significantly improved cognition according to previous notes. I reviewed MRI brain negative. Patient lumbar puncture negative for meningitis. Afebrile. (2) End-stage renal disease needing dialysis Current Visit: Yes Status: Acute Plan to address problem: Issue receiving hemodialysis Thursday. Patient refused dialysis sometime today. Stated she wanted to be discharged home. (3) Lupus Current Visit: Yes Status: Acute Plan to address problem: No joint inflammation lupus appears to be fairly well controlled. pain control. (4) Pancreatitis Current Visit: Yes Status: Acute Qualifiers: Chronicity: acute Acute pancreatitis complication: unspecified Plan to address problem: Patient severe necrotizing pancreatitis. Patient to have PICC line TPN placed patient refused inpatient rehabilitation and would like to be discharged home. We'll discharge when stable after PICC line. Patient will require TPN. (5) Vulvar abscess Current Visit: Yes Status: Acute Plan to address problem: Improving continue present antibiotics. Local wound care. (6) Seizure Current Visit: Yes Status: Acute Plan to address problem: Patient no further seizure disorder. Had normocytic seizure currently on Keppra and Ativan when necessary continue present medical management. As seizures improve with patient's cognition is also improved. Along with treating underlying infection. (7) Anemia Current Visit: Yes Status: Acute Plan to address problem: Anemia patient received 4 units packed red blood cells. Could be secondary to chronic disease. No clear evidence of ongoing bleeding. Patient H&H is remaining 8 and 25. (8) Malnutrition compromising bodily function Current Visit: Yes Status: Acute Plan to address problem: He shouldn't presently living malnutrition not eating. Will require TPN prepared for greater than 30 days. History Interval history: very poor historian and pt has refused HD at many times today patient is a 29-year-old female with end-stage renal disease currently on hemodialysis. Lupus, chronic pain, hypertension patient presented with altered mental status however today talking able to follow commands. Shakes it. Improves yes and no. Most likely was secondary to sepsis. Hospitalist Physical - Constitutional Vitals: Temp Pulse Resp BP Pulse Ox 97.0 F L 104 H 18 141/92 99 08/16/19 12:03 08/16/19 12:03 08/16/19 12:03 08/16/19 12:03 08/16/19 12:03 General appearance: Present: no acute distress, cachectic, disheveled - EENT Eyes: Present: PERRL, EOM intact ENT: hearing intact, clear oral mucosa, dentition normal - Neck Neck: Present: supple, normal ROM - Respiratory Respiratory effort: normal Respiratory: bilateral: diminished - Cardiovascular Rhythm: regular Heart Sounds: Present: S1 & S2 - Extremities Extremities: no ischemia, pulses intact, pulses symmetrical, No edema, normal temperature, normal color Extremity abnormal: other (generalized weakness global weakness poor cognition.) - Abdominal General gastrointestinal: soft, non-tender, non-distended, normal bowel sounds, no hepatomegaly, no splenomegaly - Integumentary Integumentary: Present: clear, warm, dry - Neurologic Neurologic: CNII-XII intact, moves all extremities, other (patient has had improvement in mood and memory and more responsive.) Results - Labs CBC & Chem 7: 08/13/19 04:45 08/16/19 05:15 Labs: Laboratory Last Values WBC 21.4 K/mm3 (4.5-11.0) H 08/13/19 04:45 RBC 3.06 M/mm3 (3.65-5.03) L 08/13/19 04:45 Hgb 8.0 gm/dl (10.1-14.3) L 08/13/19 04:45 Hct 25.6 % (30.3-42.9) L 08/13/19 04:45 MCV 84 fl (79-97) 08/13/19 04:45 MCH 26 pg (28-32) L 08/13/19 04:45 MCHC 31 % (30-34) 08/13/19 04:45 RDW 17.5 % (13.2-15.2) H 08/13/19 04:45 Plt Count 170 K/mm3 (140-440) 08/13/19 04:45 Lymph # Clothes Model 08/02/19 09:03 Add Manual Diff Complete 08/13/19 04:45 Total Counted 100 08/13/19 04:45 Seg Neuts % (Manual) 85.0 % (40.0-70.0) H 08/13/19 04:45 Band Neutrophils % 0 % 08/13/19 04:45 Lymphocytes % (Manual) 9.0 % (13.4-35.0) L 08/13/19 04:45 Reactive Lymphs % (Man) 0 % 08/13/19 04:45 Monocytes % (Manual) 4.0 % (0.0-7.3) 08/13/19 04:45 Eosinophils % (Manual) 0 % (0.0-4.3) 08/13/19 04:45 Basophils % (Manual) 1.0 % (0.0-1.8) 08/13/19 04:45 Metamyelocytes % 1.0 % 08/13/19 04:45 Myelocytes % 0 % 08/13/19 04:45 Promyelocytes % 0 % 08/13/19 04:45 Blast Cells % 0 % 08/13/19 04:45 Nucleated RBC % 1.0 % (0.0-0.9) H 08/13/19 04:45 Seg Neutrophils # Man 18.2 K/mm3 (1.8-7.7) H 08/13/19 04:45 Band Neutrophils # 0.0 K/mm3 08/13/19 04:45 Lymphocytes # (Manual) 1.9 K/mm3 (1.2-5.4) 08/13/19 04:45 Abs React Lymphs (Man) 0.0 K/mm3 08/13/19 04:45 Monocytes # (Manual) 0.9 K/mm3 (0.0-0.8) H 08/13/19 04:45 Eosinophils # (Manual) 0.0 K/mm3 (0.0-0.4) 08/13/19 04:45 Basophils # (Manual) 0.2 K/mm3 (0.0-0.1) H 08/13/19 04:45 Metamyelocytes # 0.2 K/mm3 08/13/19 04:45 Myelocytes # 0.0 K/mm3 08/13/19 04:45 Promyelocytes # 0.0 K/mm3 08/13/19 04:45 Blast Cells # 0.0 K/mm3 08/13/19 04:45 Pathologist Review 08/02/19 09:03 WBC Morphology Not Reportable 08/13/19 04:45 Hypersegmented Neuts Not Reportable 08/13/19 04:45 Hyposegmented Neuts Not Reportable 08/13/19 04:45 Hypogranular Neuts Not Reportable 08/13/19 04:45 Smudge Cells Not Reportable 08/13/19 04:45 Toxic Granulation Not Reportable 08/13/19 04:45 Toxic Vacuolation Not Reportable 08/13/19 04:45 Dohle Bodies Not Reportable 08/13/19 04:45 Pelger-Huet Anomaly Not Reportable 08/13/19 04:45 Rose Rods Not Reportable 08/13/19 04:45 Platelet Estimate Consistent w auto 08/13/19 04:45 Clumped Platelets Not Reportable 08/13/19 04:45 Plt Clumps, EDTA Not Reportable 08/13/19 04:45 Large Platelets Not Reportable 08/13/19 04:45 Giant Platelets Not Reportable 08/13/19 04:45 Platelet Satelliting Not Reportable 08/13/19 04:45 Plt Morphology Comment Not Reportable 08/13/19 04:45 RBC Morphology Not Reportable 08/13/19 04:45 Dimorphic RBCs Not Reportable 08/13/19 04:45 Polychromasia Few 08/13/19 04:45 Hypochromasia Few 08/13/19 04:45 Poikilocytosis Not Reportable 08/13/19 04:45 Anisocytosis 1+ 08/13/19 04:45 Microcytosis Few 08/13/19 04:45 Macrocytosis Few 08/13/19 04:45 Spherocytes Not Reportable 08/13/19 04:45 Pappenheimer Bodies Not Reportable 08/13/19 04:45 Sickle Cells Not Reportable 08/13/19 04:45 Target Cells Not Reportable 08/13/19 04:45 Tear Drop Cells Not Reportable 08/13/19 04:45 Ovalocytes Not Reportable 08/13/19 04:45 Helmet Cells Not Reportable 08/13/19 04:45 Benavidez-[place]-World Bodies Not Reportable 08/13/19 04:45 Crumpler Rings Not Reportable 08/13/19 04:45 Griffith Cells Not Reportable 08/13/19 04:45 Bite Cells Not Reportable 08/13/19 04:45 Crenated Cell Not Reportable 08/13/19 04:45 Elliptocytes Not Reportable 08/13/19 04:45 Acanthocytes (Spur) Not Reportable 08/13/19 04:45 Rouleaux Not Reportable 08/13/19 04:45 Hemoglobin C Crystals Not Reportable 08/13/19 04:45 Schistocytes Not Reportable 08/13/19 04:45 Malaria parasites Not Reportable 08/13/19 04:45 ESR 78 mm/Hr (0-20) 07/26/19 05:25 Dinesh Bodies Not Reportable 08/13/19 04:45 Hem Pathologist Commnt No 08/13/19 04:45 PT 16.7 Sec. (12.2-14.9) H 07/26/19 06:31 INR 1.39 (0.87-1.13) H 07/26/19 06:31 APTT 41.1 Sec. (24.2-36.6) H 07/26/19 06:31 Sodium 133 mmol/L (137-145) L 08/16/19 05:15 Potassium 5.7 mmol/L (3.6-5.0) H D 08/16/19 05:15 Chloride 93.8 mmol/L (98-107) L 08/16/19 05:15 Carbon Dioxide 20 mmol/L (22-30) L 08/16/19 05:15 Anion Gap 25 mmol/L 08/16/19 05:15 BUN 74 mg/dL (7-17) H 08/16/19 05:15 Creatinine 7.4 mg/dL (0.7-1.2) H 08/16/19 05:15 Estimated GFR 8 ml/min 08/16/19 05:15 BUN/Creatinine Ratio 10 % 08/16/19 05:15 Glucose 96 mg/dL (65-100) 08/16/19 05:15 POC Glucose 130 (70-105) H 08/16/19 18:12 Hemoglobin A1c 5.9 % (4-6) 08/08/19 09:27 Lactic Acid 1.40 mmol/L (0.7-2.0) 08/02/19 15:24 Calcium 8.2 mg/dL (8.4-10.2) L 08/16/19 05:15 Phosphorus 3.50 mg/dL (2.5-4.5) 08/16/19 05:15 Magnesium 2.70 mg/dL (1.7-2.3) H 08/16/19 05:15 Iron 58 ug/dL (37-170) 08/03/19 04:15 TIBC 150 mcg/dL (250-450) L 08/03/19 04:15 Ferritin 5729.0 ng/mL (13.0-400.0) H 08/03/19 04:15 Total Bilirubin 0.30 mg/dL (0.1-1.2) 08/09/19 04:56 Direct Bilirubin < 0.2 mg/dL (0-0.2) 07/26/19 06:31 Indirect Bilirubin 0.1 mg/dL 07/26/19 06:31 AST 13 units/L (5-40) 08/09/19 04:56 ALT 5 units/L (7-56) L 08/09/19 04:56 Alkaline Phosphatase 86 units/L (35-129) 08/09/19 04:56 Total Creatine Kinase 43 units/L (30-135) 07/26/19 05:25 Troponin T 0.072 ng/mL (0.00-0.029) H 07/26/19 06:31 C-Reactive Protein 40.30 mg/dL (0.00-1.30) H 08/03/19 10:23 NT-Pro-B Natriuret Pep 50970 pg/mL (0-450) H 07/26/19 06:31 Total Protein 6.5 g/dL (6.3-8.2) 08/09/19 04:56 Albumin 2.6 g/dL (3.9-5) L 08/09/19 04:56 Albumin/Globulin Ratio 0.7 % 08/09/19 04:56 Triglycerides 261 mg/dL (2-149) H 08/03/19 04:15 Cholesterol 91 mg/dL (50-199) 07/26/19 06:31 LDL Cholesterol Direct 30 mg/dL (50-130) L 07/26/19 06:31 HDL Cholesterol 25 mg/dL (40-59) L 07/26/19 06:31 Cholesterol/HDL Ratio 3.64 % 07/26/19 06:31 Amylase 784 units/L (27-131) H 08/10/19 07:06 Lipase 279 units/L (13-60) H 08/12/19 Unknown Procalcitonin 22.18 ng/mL (<0.15) 08/02/19 16:38 HCG, Qual Negative (Negative) 07/30/19 02:40 HCG, Quant < 2 mIU/mL (0-4) 07/26/19 05:25 CSF Appearance Clear 08/01/19 10:40 CSF Color Colorless 08/01/19 10:40 CSF WBC 0 /mm3 (1-10) 08/01/19 10:40 CSF RBC 0 /mm3 (0-0) 08/01/19 10:40 CSF Seg Neutrophils 0 % (0-6) 08/01/19 10:40 CSF Lymphocytes % 0 % (40-80) 08/01/19 10:40 CSF Reactive Lymphs 0 % 08/01/19 10:40 CSF Monocytes % 0 % (15-45) 08/01/19 10:40 CSF Eosinophils % 0 % 08/01/19 10:40 CSF Basophils 0 % 08/01/19 10:40 CSF Pathologist Review C 08/01/19 10:40 CSF Glucose 57 mg/dL 08/01/19 10:40 CSF Total Protein 84 mg/dL 08/01/19 10:40 CSF VDRL Nonreactive (Nonreactive) 08/01/19 10:40 Random Vancomycin 14.9 ug/mL (0-40.0) 08/06/19 05:18 Double Strand DNA Ab See scanned result 07/30/19 11:40 Complement C3 107 mg/dL (83-193) 08/01/19 16:07 Complement C4 32 mg/dL (15-57) 08/01/19 16:07 RPR Nonreactive (Nonreactive) 07/26/19 05:25 Hepatitis A IgM Ab Non-reactive (NonReactive) 07/26/19 10:53 Hep Bs Antigen Non-reactive (Negative) 07/26/19 10:53 Hep B Core IgM Ab Non-reactive (NonReactive) 07/26/19 10:53 Hepatitis C Antibody Non-reactive (NonReactive) 07/26/19 10:53 HIV-1 Antibody See scanned result 08/01/19 13:17 HIV-2 Ab (Immunoblot) See scanned result 08/01/19 13:17 Blood Type A POSITIVE 08/02/19 12:50 Antibody Screen Negative 08/02/19 12:50 Crossmatch See Detail 08/02/19 12:50 Active Medications - Current Medications Current Medications: Generic Name Dose Route Start Last Admin Trade Name Freq PRN Reason Stop Dose Admin Acetaminophen 650 mg 07/26/19 11:08 08/03/19 21:27 Tylenol PO 650 mg Q6H PRN Administration Pain, Mild (1-3) Albuterol 2.5 mg 07/26/19 15:39 Proventil IH QID PRN Wheezing Lipase/Protease/Amylase 1 each 07/31/19 08:[address] 10,500 Unit FEEDTUBE PRN PRN For Clogged Feeding Tube Cyanocobalamin 1,000 mcg 07/27/19 10:00 08/16/19 14:26 Vitamin B-12 PO 1,000 mcg QDAY JOEL Administration Dextrose 25 ml 07/26/19 11:06 08/13/19 08:12 D50w (25gm) Syringe IV 25 ml PRN PRN Administration Hypoglycemia Epoetin Mitch 20,000 unit 08/13/19 08:34 08/13/19 19:02 Procrit SUB-Q 20,000 unit FAN PRN Administration hemodialysis Folic Acid 1 mg 07/27/19 10:00 08/16/19 14:25 Folvite PO 1 mg QDAY JOEL Administration Hydralazine HCl 10 mg 07/30/19 20:16 08/13/19 13:31 Apresoline IV 10 mg Q4HR PRN Administration Blood Pressure Hydroxychloroquine Sulfate 200 mg 07/27/19 10:00 08/16/19 14:26 Plaquenil PO 200 mg QDAY JOEL Administration Hydroxyzine HCl 50 mg 07/27/19 10:00 08/16/19 14:26 Atarax PO 50 mg QDAY JOEL Administration Meropenem 500 mg in 50 mls @ 50 mls/hr 08/14/19 18:00 08/15/19 16:59 Merrem/Ns 500 Mg/50 Ml IV 50 mls/hr QPM JOEL Administration Amino Acids/Electrolytes/Dextrose 1,560 mls @ 65 mls/hr 08/15/19 20:00 08/15/19 22:30 Tpn Adult IV 08/16/19 19:59 65 mls/hr DAILY@2000 JOEL Administration Protocol Sodium Chloride 100 mls @ 999 mls/hr 08/16/19 06:34 Nacl 0.9% IV FAN PRN Hypotension Amino Acids/Electrolytes/Dextrose 1,560 mls @ 65 mls/hr 08/16/19 20:00 Tpn Adult IV 08/17/19 19:59 DAILY@2000 [facility] Protocol Insulin Glargine 20 units 08/08/19 22:00 08/15/19 22:33 Lantus SUB-Q Not Given QHS JOEL Insulin Human Lispro 0 unit 08/08/19 13:00 08/16/19 11:30 Humalog SUB-Q Not Given Q6HR [facility] Protocol Labetalol HCl 300 mg 07/26/19 16:00 08/15/19 22:34 Normodyne PO 300 mg BID JOEL Administration Levetiracetam 500 mg 08/09/19 22:00 08/16/19 14:25 Keppra PO 500 mg BID JOEL Administration Lorazepam 0.5 mg 08/14/19 13:04 Ativan IV Q4H PRN Anxiety Losartan Potassium 50 mg 07/27/19 10:00 08/15/19 10:15 Cozaar PO 50 mg QDAY JOEL Administration Mycophenolate Mofetil 500 mg 07/27/19 10:00 08/16/19 14:28 Cellcept PO 500 mg QDAY JOEL Administration Ondansetron HCl 4 mg 07/29/19 23:31 08/13/19 13:30 Zofran IV 4 mg Q6H PRN Administration Nausea And Vomiting Oxycodone/Acetaminophen 1 tab 07/29/19 15:49 08/15/19 23:57 Percocet 5/325 PO 1 tab Q8H PRN Administration Pain, Moderate (4-6) Pantoprazole Sodium 40 mg 08/09/19 10:00 08/16/19 14:26 Protonix PO 40 mg BID JOEL Administration Prednisone 20 mg 07/27/19 10:00 08/16/19 14:25 Deltasone PO 20 mg QDAY JOEL Administration Sevelamer Carbonate 800 mg 07/26/19 16:30 08/16/19 09:00 Renvela PO 800 mg 0730,1630 JOEL Administration Simple Syrup 15 ml 07/31/19 08:26 08/15/19 22:33 Simple Syrup FEEDTUBE 15 ml PRN PRN Administration Hypoglycemia Simple Syrup 30 ml 07/31/19 08:26 Simple Syrup FEEDTUBE PRN PRN Hypoglycemia Sodium Bicarbonate 325 mg 07/31/19 08:26 Sodium Bicarbonate FEEDTUBE PRN PRN For Clogged Feeding Tube Sodium Bicarbonate 650 mg 08/08/19 14:00 08/16/19 14:28 Sodium Bicarbonate PO 650 mg TID JOEL Administration Nutrition/Malnutrition Assess - Dietary Evaluation Nutrition/Malnutrition Findings: Nutrition Notes Start: 07/26/19 14:40 Freq: Status: Active Protocol: Document 08/16/19 10:26 LM (Rec: 08/16/19 10:34 LM [email or web address]) Nutrition Notes Initial or Follow up Reassessment Current Diagnosis CKD (stage V CKD),Hypertension Other Pertinent Diagnosis acute pancreatitis, on HD, MRSA, lupus, anemia, wounds Current Diet CPN at 65ml/hr Labs/Tests Na 133 K 5.7 Mg 2.7 Pertinent Medications Reviewed Height 5 ft 3 in Weight 61.7 kg [place] Body Weight (kg) 52.27 BMI 24.0 Subjective/Other Information TPN day 3 Percent of energy/protein needs met: 52%/100% Burn Absent Trauma Absent Minimum of two criteria Yes Energy Intake (severe) < or equal to 50% Estimated Energy Requirement > or equal to 5 days Muscle Mass Mild Depletion (non-severe) Fluid Accumulation Mild (non-severe) #3 Nutrition Diagnosis Malnutrition Diagnosis Progress(for reassessment Continues documentation) #2 Nutrition Diagnosis Increased nutrient needs ( specify in comment below) Diagnosis Progress(for reassessment Continues documentation) #1 Nutrition Diagnosis Inadequate oral intake Diagnosis Progress(for reassessment Continues documentation) Is patient on ventilator? No Is Patient Ambulatory and/or Out of Bed No REE-([facility]-confined to bed) 1569.492 Kcal/Kg value to use for calculation 29 Approximate Energy Requirements Using 1789 kcal/Kg Calculation Used for Recommendations Kcal/kg Additional Notes Pro needs >1.2g/kg: >74g/day Fluid needs 1-1.5L/day Nutrition Intervention Nutrition Support: Continue CPN at 65 ml/hr: MVI, thiamin, MTE, 163 mWq Na, 0 mEq K, 50%/50% chloride/ acetate, osmolality 1449 Kcal 1,071 Protein (gm) 85 Carbohydrates (gm) 215 Fat (gm) 0 Fluid (mL) 1,560 Goal #1 PN to meet nutrient needs as best possible Anticipated Discharge Needs: Unable to identify at this time Follow-Up By: 08/17/19 Additional Comments Labs in am: Mg ROMY, Man
[2019-08-16] MEDS: ATIVAN IV PRN (18:56)
[2019-08-16] MEDS: NORMODYNE PO SCH ×2 (19:12→23:27)
[2019-08-16] MEDS ORDERED: TPN ADULT 1,560 ML IV SCH (20:00)
[2019-08-16] MEDS: LANTUS SUB-Q SCH (23:23)
[2019-08-16] MEDS: MERREM/NS 500 MG/50 ML 500 MG/50 ML BAG IV SCH (23:27)
[2019-08-17] MEDS: HumaLOG SUB-Q SCH ×4 (00:52→18:02)
[2019-08-17] MEDS: COZAAR PO SCH ×2 (00:53→11:13)
[2019-08-17] MEDS: ATIVAN IV PRN ×3 (02:52→23:00)
[2019-08-17 06:30] LABS: Hemoglobin 6.4 gm/dl (10.1-14.3); Mean Corpuscular HGB Conc 32 % (30-34); Mean Corpuscular Volume 83 fl (79-97); Platelet Count 211 K/mm3 (140-440); Red Blood Count 2.42 M/mm3 (3.65-5.03); Red Cell Distribution Width 16.5 % (13.2-15.2)
[2019-08-17] MEDS: RENVELA PO SCH ×2 (07:30→16:26)
[2019-08-17 07:53] LABS: Calcium 8.5 mg/dL (8.4-10.2)
[2019-08-17] MEDS: SODIUM BICARBONATE PO SCH ×3 (08:00→23:00)
[2019-08-17] MEDS ORDERED: NACL 0.9% 500 ML 500 ML IV NR (08:34)
--- NOTE | 2019-08-17 10:18 | Progress Note ---
Assessment and Plan 1. ESRD: On maintenance hemodialysis three times a week, TTS schedule. 2. FEN: Hyperkalemia, K level is better today. Monitor lytes. 3. Anemia: Epogen with HD. 4. New onset seizures: On Keppra. 5. Metabolic encephalopathy. 6. Sepsis. Vulvar abscess, s/p I&D. Followed by ID. 7. Acute pancreatitis: Continue supportive care. On PPN / TPN. 8. History of lupus: On Cellcept, Plaquenil and Prednisone. Examination: General appearance: alert, appears stated age, not in distress HEENT: ATNC Respiratory: Clear to Ascultation Cardiology: regular, S1S2, no murmur Gastrointestinal: normoactive bowel sounds, no tenderness, not distended Integumentary: no rash Neurologic: alert, able to move extremities, some confusion noted Musculoskeletal: no edema Hemodialysis access: L arm AVF Subjective Date of service: 08/17/19 Principal diagnosis: pancreatitis Interval history: Patient was seen and examined at the bedside. Objective - Vital Signs Vital signs: Vital Signs - 12hr 08/16/19 08/17/19 08/17/19 23:04 05:38 06:43 Temperature 98.1 F 98.2 F Pulse Rate 108 H 102 H 88 Respiratory 18 20 18 Rate Blood Pressure 113/75 161/103 Blood Pressure 139/89 [Right] O2 Sat by Pulse 98 100 Oximetry - Lab 08/17/19 06:07 08/17/19 06:07 Most recent lab results Calcium 8.5 mg/dL (8.4-10.2) 08/17/19 06:07 Phosphorus 3.90 mg/dL (2.5-4.5) 08/17/19 06:07 Magnesium 1.90 mg/dL (1.7-2.3) 08/17/19 06:07 Medications & Allergies - Medications Allergies/Adverse Reactions: Allergies lactose Adverse Reaction (Verified 07/29/19 08:16) Unknown Home Medications: Home Medications Medication Instructions Recorded Confirmed Last Taken Type Gabapentin 300 mg PO 3XW 11/14/18 07/26/19 07/25/19 History ALBUTEROL NEB's [Proventil] 2.5 mg IH QID PRN 07/26/19 07/26/19 07/25/19 History Amitriptyline [Elavil] 25 mg PO QHS 07/26/19 07/26/19 07/25/19 History Amitriptyline [Elavil] 25 mg PO QHS 07/26/19 07/26/19 07/25/19 History Cyanocobalamin (Vitamin B-12) 1,000 mcg PO QDAY 07/26/19 07/26/19 07/25/19 History [Vitamin B-12] Folic Acid [Folvite] 1 mg PO QDAY 07/26/19 07/26/19 07/25/19 History Hydroxychloroquine [Plaquenil] 200 mg PO QDAY 07/26/19 07/26/19 07/25/19 History Ibuprofen [Motrin] 800 mg PO Q8HR PRN 07/26/19 07/26/19 07/25/19 History Labetalol HCl [Labetalol 300mg TAB] 300 mg PO Q12H 07/26/19 07/26/19 07/25/19 History Losartan [Cozaar] 50 mg PO QDAY 07/26/19 07/26/19 07/25/19 History Mirtazapine 7.5 mg PO QDAY 07/26/19 07/26/19 07/25/19 History Mycophenolate [Cellcept] 500 mg PO QDAY 07/26/19 07/26/19 07/25/19 History Pantoprazole [Protonix] 40 mg PO BID 07/26/19 07/26/19 07/25/19 History Pregabalin [Lyrica] 25 mg PO QDAY 07/26/19 07/26/19 07/25/19 History Sevelamer HCl [Renagel] 800 mg PO BIDWM 07/26/19 07/26/19 07/25/19 History hydrOXYzine HCL [Atarax] 50 mg PO QDAY 07/26/19 07/26/19 07/25/19 History predniSONE [Deltasone] 20 mg PO QDAY 07/26/19 07/26/19 07/25/19 History Active Medications: Generic Name Dose Route Start Last Admin Trade Name Freq PRN Reason Stop Dose Admin Acetaminophen 650 mg 07/26/19 11:08 08/03/19 21:27 Tylenol PO 650 mg Q6H PRN Administration Pain, Mild (1-3) Albuterol 2.5 mg 07/26/19 15:39 Proventil IH QID PRN Wheezing Lipase/Protease/Amylase 1 each 07/31/19 08:26 Tu Diane 10,500 Unit FEEDTUBE PRN PRN For Clogged Feeding Tube Cyanocobalamin 1,000 mcg 07/27/19 10:00 08/16/19 14:26 Vitamin B-12 PO 1,000 mcg QDAY JOEL Administration Dextrose 25 ml 07/26/19 11:06 08/13/19 08:12 D50w (25gm) Syringe IV 25 ml PRN PRN Administration Hypoglycemia Epoetin Mitch 20,000 unit 08/13/19 08:34 08/13/19 19:02 Procrit SUB-Q 20,000 unit FAN PRN Administration hemodialysis Folic Acid 1 mg 07/27/19 10:00 08/16/19 14:25 Folvite PO 1 mg QDAY JOEL Administration Hydralazine HCl 10 mg 07/30/19 20:16 08/13/19 13:31 Apresoline IV 10 mg Q4HR PRN Administration Blood Pressure Hydroxychloroquine Sulfate 200 mg 07/27/19 10:00 08/16/19 14:26 Plaquenil PO 200 mg QDAY JOEL Administration Hydroxyzine HCl 50 mg 07/27/19 10:00 08/16/19 14:26 Atarax PO 50 mg QDAY JOEL Administration Meropenem 500 mg in 50 mls @ 50 mls/hr 08/14/19 18:00 08/16/19 23:27 Merrem/Ns 500 Mg/50 Ml IV 50 mls/hr QPM JOEL Administration Sodium Chloride 100 mls @ 999 mls/hr 08/16/19 06:34 Nacl 0.9% IV FAN PRN Hypotension Amino Acids/Electrolytes/Dextrose 1,560 mls @ 65 mls/hr 08/16/19 20:00 08/16/19 23:24 Tpn Adult IV 08/17/19 19:59 65 mls/hr DAILY@2000 JOEL Administration Protocol Sodium Chloride 500 mls @ 0 mls/hr 08/17/19 08:34 Nacl 0.9% 500 Ml IV 08/18/19 08:33 ONCE NR As Directed Insulin Glargine 20 units 08/08/19 22:00 08/16/19 23:23 Lantus SUB-Q 20 units QHS JOEL Administration Insulin Human Lispro 0 unit 08/08/19 13:00 08/17/19 06:01 Humalog SUB-Q 4 unit Q6HR JOEL Administration Protocol Labetalol HCl 300 mg 07/26/19 16:00 08/16/19 23:27 Normodyne PO 300 mg BID JOEL Administration Levetiracetam 500 mg 08/09/19 22:00 08/16/19 23:27 Keppra PO 500 mg BID JOEL Administration Lorazepam 0.5 mg 08/14/19 13:04 08/17/19 02:52 Ativan IV 0.5 mg Q4H PRN Administration Anxiety Losartan Potassium 50 mg 07/27/19 10:00 08/17/19 00:53 Cozaar PO Not Given QDAY JOEL Mycophenolate Mofetil 500 mg 07/27/19 10:00 08/16/19 14:28 Cellcept PO 500 mg QDAY JOEL Administration Ondansetron HCl 4 mg 07/29/19 23:31 08/13/19 13:30 Zofran IV 4 mg Q6H PRN Administration Nausea And Vomiting Oxycodone/Acetaminophen 1 tab 07/29/19 15:49 08/15/19 23:57 Percocet 5/325 PO 1 tab Q8H PRN Administration Pain, Moderate (4-6) Pantoprazole Sodium 40 mg 08/09/19 10:00 08/16/19 23:28 Protonix PO 40 mg BID JOEL Administration Prednisone 20 mg 07/27/19 10:00 08/16/19 14:25 Deltasone PO 20 mg QDAY JOEL Administration Sevelamer Carbonate 800 mg 07/26/19 16:30 08/16/19 19:12 Renvela PO Not Given 0730,1630 JOEL Simple Syrup 15 ml 07/31/19 08:26 08/15/19 22:33 Simple Syrup FEEDTUBE 15 ml PRN PRN Administration Hypoglycemia Simple Syrup 30 ml 07/31/19 08:26 Simple Syrup FEEDTUBE PRN PRN Hypoglycemia Sodium Bicarbonate 325 mg 07/31/19 08:26 Sodium Bicarbonate FEEDTUBE PRN PRN For Clogged Feeding Tube Sodium Bicarbonate 650 mg 08/08/19 14:00 08/16/19 23:27 Sodium Bicarbonate PO 650 mg TID JOEL Administration
[2019-08-17] MEDS: PROTONIX PO SCH ×2 (11:12→23:00)
[2019-08-17] MEDS: CELLCEPT PO SCH (11:12)
[2019-08-17] MEDS: NORMODYNE PO SCH ×2 (11:12→23:00)
[2019-08-17] MEDS: ATARAX PO SCH (11:13)
[2019-08-17] MEDS: KEPPRA PO SCH ×2 (11:13→23:00)
[2019-08-17] MEDS: DELTASONE PO SCH (11:13)
[2019-08-17] MEDS: PLAQUENIL PO SCH (11:13)
[2019-08-17] MEDS: VITAMIN B-12 PO SCH (11:15)
[2019-08-17] MEDS: FOLVITE PO SCH (11:15)
[2019-08-17 12:12] LABS: Band Neutrophils # (Manual) 0.2 K/mm3; Basophils % (Manual) 0 % (0.0-1.8); Eosinophils % (Manual) 0 % (0.0-4.3); Total Cells Counted 100
[2019-08-17 12:13] LABS: Hypochromasia 1+; Stomatocytes Few; Target Cells Few
[2019-08-17 12:14] LABS: Anisocytosis 1+; Platelet Estimate Consistent w Auto
--- NOTE | 2019-08-17 12:58 | Progress Note ---
Assessment and Plan Cultures: Wound culture - E coli, whittaker sensitive Blood culture 07/26/2019 no growth today CSF 08/02/2019 no organisms, no leukocytes Right labia drainage 08/02/2019 +E coli pansens, Enterococcus A/P: 49 yo F PMHx ESRD on HD, lupus, previous MRSA infection now with wound infection, abdominal pain and seizures: 1. Acute sepsis: leukocytosis with leukemoid reaction, stable to improving. Possible source necrotizing pancreatitis +/- right labia abscess +/- less likely sinusitis 2. Presumedly complicated acute pancreatitis: improving; ? CT with generalized edema is noted throughout the pancreas with surrounding moderate inflammation. No distinct pancreatic lesion is identified. Lipase 241. Repeat contrasted CT with severely abnormal pancreas with multiple focal areas of nonperfusion in the distal pancreas. Necrotizing pancreatitis could be considered. There is moderate to large fluid throughout the base of the mesentery and left abdomen which is grossly unchanged. On Meropenem x 14 days. 3. Right labia abscess: Right labia drainage 08/02/2019 +whittaker-sensitive E coli and Enterococcus. [employer] on board. Procalcitonin 22 (high/unclear significance is the setting of ESRD). Repeat Contrasted CT did not include perineum. Drainage has resolved. 4. Wound infection right buttocks: continue wound care 5. Lupus, immunocompromised host - on plaquenil, cellcept and prednisone ?flare 6. Severe anemia ? plaquenil ?cellcept, ?GI bleed 7. Immunocompromised host 8. ESRD on HD - renally dose antibiotics Recs: - continue meropenem IV renally adjusted for presumed necrotizing pancreatitis - D# 14 of , tomorrow, plan to d/c abx and monitor clinically Zuleyma Lee MD, FACP [facility] ([facility] C: [phone] O: [phone] F: [phone] Subjective Date of service: 08/17/19 Principal diagnosis: pancreatitis Interval history: Afebrile. No abdominal pain. Somewhat confused. Getting blood transfusion. Remains on TPN. Objective - Exam Narrative Exam: Physical Exam: Constitutional: Alert, somewhat confused. No acute distress Head, Ears, Nose: Normocephalic, atraumatic. External ears, nose normal Eyes: Conjunctivae/corneas clear. No icterus. No ptosis. Neck: Supple, no meningeal signs Cardiovascular: S1, S2 normal. Respiratory: Good air entry, clear to auscultation bilaterally GI: soft, non tender; bowel sounds + Musculoskeletal: No pedal edema, no cyanosis. Skin: No rash or abscess, +multiple old scars and +right hip superficial wound Hem/Lymphatic: No palpable cervical or supraclavicular nodes. No lymphangitis Psych: no agitation Neurological: Awake, alert, but somewhat confused - Constitutional Vitals: Vital Signs Temp Pulse Resp BP Pulse Ox 98.3 F 102 H 18 174/96 94 08/17/19 11:46 08/17/19 11:46 08/17/19 11:46 08/17/19 11:46 08/17/19 11:46 Temperature -Last 24 Hours Temperature 98.3 F Temperature 98.2 F Temperature 98.1 F Temperature 98.2 F Temperature 98.2 F Temperature 97.0 F - Labs CBC & Chem 7: 08/17/19 06:07 08/17/19 06:07 Labs: Abnormal lab results 08/16/19 08/17/19 08/17/19 Range/Units 18:12 00:03 05:44 WBC (4.5-11.0) K/mm3 RBC (3.65-5.03) M/mm3 Hgb (10.1-14.3) gm/dl Hct (30.3-42.9) % MCH (28-32) pg RDW (13.2-15.2) % Seg Neuts % (Manual) (40.0-70.0) % Lymphocytes % (Manual) (13.4-35.0) % Seg Neutrophils # Man (1.8-7.7) K/mm3 Lymphocytes # (Manual) (1.2-5.4) K/mm3 Chloride (98-107) mmol/L BUN (7-17) mg/dL Creatinine (0.7-1.2) mg/dL Glucose (65-100) mg/dL POC Glucose 130 H 149 H 230 H (70-105) Crossmatch 08/17/19 08/17/19 08/17/19 Range/Units 06:07 06:07 09:18 WBC 21.0 H (4.5-11.0) K/mm3 RBC 2.42 L (3.65-5.03) M/mm3 Hgb 6.4 L (10.1-14.3) gm/dl Hct 20.0 L (30.3-42.9) % MCH 27 L (28-32) pg RDW 16.5 H (13.2-15.2) % Seg Neuts % (Manual) 93.0 H (40.0-70.0) % Lymphocytes % (Manual) 5.0 L (13.4-35.0) % Seg Neutrophils # Man 19.5 H (1.8-7.7) K/mm3 Lymphocytes # (Manual) 1.1 L (1.2-5.4) K/mm3 Chloride 94.9 L (98-107) mmol/L BUN 56 H (7-17) mg/dL Creatinine 5.4 H (0.7-1.2) mg/dL Glucose 203 H (65-100) mg/dL POC Glucose (70-105) Crossmatch See Detail 08/17/19 Range/Units 11:58 WBC (4.5-11.0) K/mm3 RBC (3.65-5.03) M/mm3 Hgb (10.1-14.3) gm/dl Hct (30.3-42.9) % MCH (28-32) pg RDW (13.2-15.2) % Seg Neuts % (Manual) (40.0-70.0) % Lymphocytes % (Manual) (13.4-35.0) % Seg Neutrophils # Man (1.8-7.7) K/mm3 Lymphocytes # (Manual) (1.2-5.4) K/mm3 Chloride (98-107) mmol/L BUN (7-17) mg/dL Creatinine (0.7-1.2) mg/dL Glucose (65-100) mg/dL POC Glucose 127 H (70-105) Crossmatch
--- NOTE | 2019-08-17 13:04 | Progress Note ---
Assessment and Plan - Patient Problems (1) Acute metabolic encephalopathy Current Visit: Yes Status: Acute Plan to address problem: Patient remains ill. Encephalopathy appears to be resolving. Secondary to metabolic and infectious process. Improvement sepsis from necrotizing fasciitis and dehydration. (2) End-stage renal disease needing dialysis Current Visit: Yes Status: Acute Plan to address problem: Issue receiving hemodialysis Thursday. Patient refused dialysis sometime today. Stated she wanted to be discharged home. We'll discharge patient home in a.m. if possible secondary to decreased H&H. (3) Lupus Current Visit: Yes Status: Acute Plan to address problem: Continue CellCept and prednisone area no acute flair at this time. (4) Pancreatitis Current Visit: Yes Status: Acute Qualifiers: Chronicity: acute Acute pancreatitis complication: unspecified Plan to address problem: Ration with severe necrotizing and cryptitis continues to improve decrease fever curve, improvement of encephalopathy and improvement in leukocytosis. Patient will need TPN for greater than 90 days. PICC line (5) Vulvar abscess Current Visit: Yes Status: Acute Plan to address problem: Valvular abscess has improved significantly. No further drainage. Patient to complete a 14 of 14 monopime from today (6) Seizure Current Visit: Yes Status: Acute Plan to address problem: This could also have been a cause for encephalopathy. Patient has been seizure- free since initiating Keppra. (7) Anemia Current Visit: Yes Status: Acute Plan to address problem: Anemia patient received 4 units packed red blood cells. Could be secondary to chronic disease. No clear evidence of ongoing bleeding. Patient H&H is remaining 8 and 25. She had another decrease in hemoglobin and hematocrit to 6.6 requiring additional units of blood. We'll follow up in a.m. with CBC. (8) Malnutrition compromising bodily function Current Visit: Yes Status: Acute Plan to address problem: He shouldn't presently living malnutrition not eating. Will require TPN prepared for greater than 90 days. History Interval history: Patient some alert poor historian but alert. Will answer questions appropriately when she wakes up. Hospital course complicated by a drop in her hemoglobin and hematocrit to 6.6. From 8. Requiring transfusion. Hospitalist Physical - Constitutional Vitals: Temp Pulse Resp BP Pulse Ox 98.3 F 102 H 18 174/96 94 08/17/19 11:46 08/17/19 11:46 08/17/19 11:46 08/17/19 11:46 08/17/19 11:46 General appearance: Present: no acute distress, cachectic, disheveled - EENT Eyes: Present: PERRL, EOM intact ENT: hearing intact, clear oral mucosa, dentition normal - Neck Neck: Present: supple, normal ROM - Respiratory Respiratory: bilateral: diminished (poor respiratory effort) - Cardiovascular Rhythm: regular - Extremities Extremities: no ischemia, pulses intact, pulses symmetrical, No edema, normal temperature, normal color, Full ROM Peripheral Pulses: within normal limits - Abdominal General gastrointestinal: soft, non-tender, non-distended, normal bowel sounds - Integumentary Integumentary: Present: clear, warm, dry - Psychiatric Psychiatric: other (poor insight. Mood is flat. But alert.) - Neurologic Neurologic: CNII-XII intact, other (generalized weakness.) Results - Labs CBC & Chem 7: 08/17/19 06:07 08/17/19 06:07 Labs: Laboratory Last Values WBC 21.0 K/mm3 (4.5-11.0) H 08/17/19 06:07 RBC 2.42 M/mm3 (3.65-5.03) L 08/17/19 06:07 Hgb 6.4 gm/dl (10.1-14.3) L 08/17/19 06:07 Hct 20.0 % (30.3-42.9) L 08/17/19 06:07 MCV 83 fl (79-97) 08/17/19 06:07 MCH 27 pg (28-32) L 08/17/19 06:07 MCHC 32 % (30-34) 08/17/19 06:07 RDW 16.5 % (13.2-15.2) H 08/17/19 06:07 Plt Count 211 K/mm3 (140-440) 08/17/19 06:07 Lymph # Plastic Surgery Coordinator 08/02/19 09:03 Add Manual Diff Complete 08/17/19 06:07 Total Counted 100 08/17/19 06:07 Seg Neuts % (Manual) 93.0 % (40.0-70.0) H 08/17/19 06:07 Band Neutrophils % 1.0 % 08/17/19 06:07 Lymphocytes % (Manual) 5.0 % (13.4-35.0) L 08/17/19 06:07 Reactive Lymphs % (Man) 0 % 08/17/19 06:07 Monocytes % (Manual) 1.0 % (0.0-7.3) 08/17/19 06:07 Eosinophils % (Manual) 0 % (0.0-4.3) 08/17/19 06:07 Basophils % (Manual) 0 % (0.0-1.8) 08/17/19 06:07 Metamyelocytes % 0 % 08/17/19 06:07 Myelocytes % 0 % 08/17/19 06:07 Promyelocytes % 0 % 08/17/19 06:07 Blast Cells % 0 % 08/17/19 06:07 Nucleated RBC % Not Reportable 08/17/19 06:07 Seg Neutrophils # Man 19.5 K/mm3 (1.8-7.7) H 08/17/19 06:07 Band Neutrophils # 0.2 K/mm3 08/17/19 06:07 Lymphocytes # (Manual) 1.1 K/mm3 (1.2-5.4) L 08/17/19 06:07 Abs React Lymphs (Man) 0.0 K/mm3 08/17/19 06:07 Monocytes # (Manual) 0.2 K/mm3 (0.0-0.8) 08/17/19 06:07 Eosinophils # (Manual) 0.0 K/mm3 (0.0-0.4) 08/17/19 06:07 Basophils # (Manual) 0.0 K/mm3 (0.0-0.1) 08/17/19 06:07 Metamyelocytes # 0.0 K/mm3 08/17/19 06:07 Myelocytes # 0.0 K/mm3 08/17/19 06:07 Promyelocytes # 0.0 K/mm3 08/17/19 06:07 Blast Cells # 0.0 K/mm3 08/17/19 06:07 Pathologist Review 08/02/19 09:03 WBC Morphology Not Reportable 08/17/19 06:07 Hypersegmented Neuts Not Reportable 08/17/19 06:07 Hyposegmented Neuts Not Reportable 08/17/19 06:07 Hypogranular Neuts Not Reportable 08/17/19 06:07 Smudge Cells Not Reportable 08/17/19 06:07 Toxic Granulation Not Reportable 08/17/19 06:07 Toxic Vacuolation Not Reportable 08/17/19 06:07 Dohle Bodies Not Reportable 08/17/19 06:07 Pelger-Huet Anomaly Not Reportable 08/17/19 06:07 Rose Rods Not Reportable 08/17/19 06:07 Platelet Estimate Consistent w auto 08/17/19 06:07 Clumped Platelets Not Reportable 08/17/19 06:07 Plt Clumps, EDTA Not Reportable 08/17/19 06:07 Large Platelets Not Reportable 08/17/19 06:07 Giant Platelets Not Reportable 08/17/19 06:07 Platelet Satelliting Not Reportable 08/17/19 06:07 Plt Morphology Comment Not Reportable 08/17/19 06:07 RBC Morphology Not Reportable 08/17/19 06:07 Dimorphic RBCs Not Reportable 08/17/19 06:07 Polychromasia Few 08/17/19 06:07 Hypochromasia 1+ 08/17/19 06:07 Poikilocytosis Not Reportable 08/17/19 06:07 Anisocytosis 1+ 08/17/19 06:07 Microcytosis Few 08/17/19 06:07 Macrocytosis Not Reportable 08/17/19 06:07 Spherocytes Not Reportable 08/17/19 06:07 Pappenheimer Bodies Not Reportable 08/17/19 06:07 Sickle Cells Not Reportable 08/17/19 06:07 Target Cells Few 08/17/19 06:07 Tear Drop Cells Not Reportable 08/17/19 06:07 Ovalocytes Not Reportable 08/17/19 06:07 Stomatocytes Few 08/17/19 06:07 Helmet Cells Not Reportable 08/17/19 06:07 Benavidez-[place] Bodies Not Reportable 08/17/19 06:07 Randolph Rings Not Reportable 08/17/19 06:07 Bk Cells Not Reportable 08/17/19 06:07 Bite Cells Not Reportable 08/17/19 06:07 Crenated Cell Not Reportable 08/17/19 06:07 Elliptocytes Not Reportable 08/17/19 06:07 Acanthocytes (Spur) Not Reportable 08/17/19 06:07 Rouleaux Not Reportable 08/17/19 06:07 Hemoglobin C Crystals Not Reportable 08/17/19 06:07 Schistocytes Not Reportable 08/17/19 06:07 Malaria parasites Not Reportable 08/17/19 06:07 ESR 78 mm/Hr (0-20) 07/26/19 05:25 Dinesh Bodies Not Reportable 08/17/19 06:07 Hem Pathologist Commnt No 08/17/19 06:07 PT 16.7 Sec. (12.2-14.9) H 07/26/19 06:31 INR 1.39 (0.87-1.13) H 07/26/19 06:31 APTT 41.1 Sec. (24.2-36.6) H 07/26/19 06:31 Sodium 137 mmol/L (137-145) 08/17/19 06:07 Potassium 4.5 mmol/L (3.6-5.0) D 08/17/19 06:07 Chloride 94.9 mmol/L (98-107) L 08/17/19 06:07 Carbon Dioxide 24 mmol/L (22-30) 08/17/19 06:07 Anion Gap 23 mmol/L 08/17/19 06:07 BUN 56 mg/dL (7-17) H 08/17/19 06:07 Creatinine 5.4 mg/dL (0.7-1.2) H 08/17/19 06:07 Estimated GFR 11 ml/min 08/17/19 06:07 BUN/Creatinine Ratio 10 % 08/17/19 06:07 Glucose 203 mg/dL (65-100) H 08/17/19 06:07 POC Glucose 127 (70-105) H 08/17/19 11:58 Hemoglobin A1c 5.9 % (4-6) 08/08/19 09:27 Lactic Acid 1.40 mmol/L (0.7-2.0) 08/02/19 15:24 Calcium 8.5 mg/dL (8.4-10.2) 08/17/19 06:07 Phosphorus 3.90 mg/dL (2.5-4.5) 08/17/19 06:07 Magnesium 1.90 mg/dL (1.7-2.3) 08/17/19 06:07 Iron 58 ug/dL (37-170) 08/03/19 04:15 TIBC 150 mcg/dL (250-450) L 08/03/19 04:15 Ferritin 5729.0 ng/mL (13.0-400.0) H 08/03/19 04:15 Total Bilirubin 0.30 mg/dL (0.1-1.2) 08/09/19 04:56 Direct Bilirubin < 0.2 mg/dL (0-0.2) 07/26/19 06:31 Indirect Bilirubin 0.1 mg/dL 07/26/19 06:31 AST 13 units/L (5-40) 08/09/19 04:56 ALT 5 units/L (7-56) L 08/09/19 04:56 Alkaline Phosphatase 86 units/L (35-129) 08/09/19 04:56 Total Creatine Kinase 43 units/L (30-135) 07/26/19 05:25 Troponin T 0.072 ng/mL (0.00-0.029) H 07/26/19 06:31 C-Reactive Protein 40.30 mg/dL (0.00-1.30) H 08/03/19 10:23 NT-Pro-B Natriuret Pep 80170 pg/mL (0-450) H 07/26/19 06:31 Total Protein 6.5 g/dL (6.3-8.2) 08/09/19 04:56 Albumin 2.6 g/dL (3.9-5) L 08/09/19 04:56 Albumin/Globulin Ratio 0.7 % 08/09/19 04:56 Triglycerides 261 mg/dL (2-149) H 08/03/19 04:15 Cholesterol 91 mg/dL (50-199) 07/26/19 06:31 LDL Cholesterol Direct 30 mg/dL (50-130) L 07/26/19 06:31 HDL Cholesterol 25 mg/dL (40-59) L 07/26/19 06:31 Cholesterol/HDL Ratio 3.64 % 07/26/19 06:31 Amylase 784 units/L (27-131) H 08/10/19 07:06 Lipase 279 units/L (13-60) H 08/12/19 Unknown Procalcitonin 22.18 ng/mL (<0.15) 08/02/19 16:38 HCG, Qual Negative (Negative) 07/30/19 02:40 HCG, Quant < 2 mIU/mL (0-4) 07/26/19 05:25 CSF Appearance Clear 08/01/19 10:40 CSF Color Colorless 08/01/19 10:40 CSF WBC 0 /mm3 (1-10) 08/01/19 10:40 CSF RBC 0 /mm3 (0-0) 08/01/19 10:40 CSF Seg Neutrophils 0 % (0-6) 08/01/19 10:40 CSF Lymphocytes % 0 % (40-80) 08/01/19 10:40 CSF Reactive Lymphs 0 % 08/01/19 10:40 CSF Monocytes % 0 % (15-45) 08/01/19 10:40 CSF Eosinophils % 0 % 08/01/19 10:40 CSF Basophils 0 % 08/01/19 10:40 CSF Pathologist Review C 08/01/19 10:40 CSF Glucose 57 mg/dL 08/01/19 10:40 CSF Total Protein 84 mg/dL 08/01/19 10:40 CSF VDRL Nonreactive (Nonreactive) 08/01/19 10:40 Random Vancomycin 14.9 ug/mL (0-40.0) 08/06/19 05:18 Double Strand DNA Ab See scanned result 07/30/19 11:40 Complement C3 107 mg/dL (83-193) 08/01/19 16:07 Complement C4 32 mg/dL (15-57) 08/01/19 16:07 RPR Nonreactive (Nonreactive) 07/26/19 05:25 Hepatitis A IgM Ab Non-reactive (NonReactive) 07/26/19 10:53 Hep Bs Antigen Non-reactive (Negative) 07/26/19 10:53 Hep B Core IgM Ab Non-reactive (NonReactive) 07/26/19 10:53 Hepatitis C Antibody Non-reactive (NonReactive) 07/26/19 10:53 HIV-1 Antibody See scanned result 08/01/19 13:17 HIV-2 Ab (Immunoblot) See scanned result 08/01/19 13:17 Blood Type A POSITIVE 08/17/19 09:18 Antibody Screen Negative 08/17/19 09:18 Crossmatch See Detail 08/17/19 09:18 Active Medications - Current Medications Current Medications: Generic Name Dose Route Start Last Admin Trade Name Freq PRN Reason Stop Dose Admin Acetaminophen 650 mg 07/26/19 11:08 08/03/19 21:27 Tylenol PO 650 mg Q6H PRN Administration Pain, Mild (1-3) Albuterol 2.5 mg 07/26/19 15:39 Proventil IH QID PRN Wheezing Lipase/Protease/Amylase 1 each 07/31/19 08:26 Pancremarcella Diane 10,500 Unit FEEDTUBE PRN PRN For Clogged Feeding Tube Cyanocobalamin 1,000 mcg 07/27/19 10:00 08/17/19 11:15 Vitamin B-12 PO 1,000 mcg QDAY JOEL Administration Dextrose 25 ml 07/26/19 11:06 08/13/19 08:12 D50w (25gm) Syringe IV 25 ml PRN PRN Administration Hypoglycemia Epoetin Mitch 20,000 unit 08/13/19 08:34 08/13/19 19:02 Procrit SUB-Q 20,000 unit FAN PRN Administration hemodialysis Folic Acid 1 mg 07/27/19 10:00 08/17/19 11:15 Folvite PO 1 mg QDAY JOEL Administration Hydralazine HCl 10 mg 07/30/19 20:16 08/13/19 13:31 Apresoline IV 10 mg Q4HR PRN Administration Blood Pressure Hydroxychloroquine Sulfate 200 mg 07/27/19 10:00 08/17/19 11:13 Plaquenil PO 200 mg QDAY JOEL Administration Hydroxyzine HCl 50 mg 07/27/19 10:00 08/17/19 11:13 Atarax PO 50 mg QDAY JOEL Administration Meropenem 500 mg in 50 mls @ 50 mls/hr 08/14/19 18:00 08/16/19 23:27 Merrem/Ns 500 Mg/50 Ml IV 50 mls/hr QPM JOEL Administration Sodium Chloride 100 mls @ 999 mls/hr 08/16/19 06:34 Nacl 0.9% IV FAN PRN Hypotension Amino Acids/Electrolytes/Dextrose 1,560 mls @ 65 mls/hr 08/16/19 20:00 08/16/19 23:24 Tpn Adult IV 08/17/19 19:59 65 mls/hr DAILY@2000 JOEL Administration Protocol Sodium Chloride 500 mls @ 0 mls/hr 08/17/19 08:34 Nacl 0.9% 500 Ml IV 08/18/19 08:33 ONCE NR As Directed Amino Acids/Electrolytes/Dextrose 2,280 mls @ 0 mls/hr 08/17/19 20:00 Tpn Adult IV 08/18/19 16:01 DAILY@2000 [facility] Protocol As Directed Insulin Glargine 20 units 08/08/19 22:00 08/16/19 23:23 Lantus SUB-Q 20 units QHS JOEL Administration Insulin Human Lispro 0 unit 08/08/19 13:00 08/17/19 06:01 Humalog SUB-Q 4 unit Q6HR JOEL Administration Protocol Labetalol HCl 300 mg 07/26/19 16:00 08/17/19 11:12 Normodyne PO 300 mg BID JOEL Administration Levetiracetam 500 mg 08/09/19 22:00 08/17/19 11:13 Keppra PO 500 mg BID JOEL Administration Lorazepam 0.5 mg 08/14/19 13:04 08/17/19 11:16 Ativan IV 0.5 mg Q4H PRN Administration Anxiety Losartan Potassium 50 mg 07/27/19 10:00 08/17/19 11:13 Cozaar PO 50 mg QDAY JOEL Administration Mycophenolate Mofetil 500 mg 07/27/19 10:00 08/17/19 11:12 Cellcept PO 500 mg QDAY JOEL Administration Ondansetron HCl 4 mg 07/29/19 23:31 08/13/19 13:30 Zofran IV 4 mg Q6H PRN Administration Nausea And Vomiting Oxycodone/Acetaminophen 1 tab 07/29/19 15:49 08/15/19 23:57 Percocet 5/325 PO 1 tab Q8H PRN Administration Pain, Moderate (4-6) Pantoprazole Sodium 40 mg 08/09/19 10:00 08/17/19 11:12 Protonix PO 40 mg BID JOEL Administration Prednisone 20 mg 07/27/19 10:00 08/17/19 11:13 Deltasone PO 20 mg QDAY JOEL Administration Sevelamer Carbonate 800 mg 07/26/19 16:30 08/17/19 07:30 Renvela PO Not Given 0730,1630 [facility] Simple Syrup 15 ml 07/31/19 08:26 08/15/19 22:33 Simple Syrup FEEDTUBE 15 ml PRN PRN Administration Hypoglycemia Simple Syrup 30 ml 07/31/19 08:26 Simple Syrup FEEDTUBE PRN PRN Hypoglycemia Sodium Bicarbonate 325 mg 07/31/19 08:26 Sodium Bicarbonate FEEDTUBE PRN PRN For Clogged Feeding Tube Sodium Bicarbonate 650 mg 08/08/19 14:00 08/17/19 08:00 Sodium Bicarbonate PO Not Given TID JOEL Nutrition/Malnutrition Assess - Dietary Evaluation Nutrition/Malnutrition Findings: Nutrition Notes Start: 07/26/19 14:40 Freq: Status: Active Protocol: Document 08/17/19 09:19 JOSEY (Rec: 08/17/19 09:53 JOSEY [id number]) Co-Sign 08/17/19 09:19 LM Nutrition Notes Initial or Follow up Reassessment Current Diagnosis CKD (stage V CKD),Hypertension Other Pertinent Diagnosis acute pancreatitis, on HD, MRSA, lupus, anemia, wounds Current Diet CPN at 65ml/hr Labs/Tests BUN 56 Cr 5.4 BG 203 Pertinent Medications Prednisone Height 5 ft 3 in Weight 61.8 kg [place] Body Weight (kg) 52.27 BMI 24.1 Subjective/Other Information TPN day 4. Pt possibly being discharged. Began cycling today. Percent of energy/protein needs met: 60%/100% Burn Absent Trauma Absent Minimum of two criteria Yes Energy Intake (severe) < or equal to 50% Estimated Energy Requirement > or equal to 5 days Muscle Mass Mild Depletion (non-severe) Fluid Accumulation Mild (non-severe) #3 Nutrition Diagnosis Malnutrition Diagnosis Progress(for reassessment Continues documentation) #2 Nutrition Diagnosis Increased nutrient needs ( specify in comment below) Diagnosis Progress(for reassessment Continues documentation) #1 Nutrition Diagnosis Inadequate oral intake Diagnosis Progress(for reassessment Continues documentation) Is patient on ventilator? No Is Patient Ambulatory and/or Out of Bed No REE-([facility]-confined to bed) 1570.692 Kcal/Kg value to use for calculation 29 Approximate Energy Requirements Using 1792 kcal/Kg Calculation Used for Recommendations Kcal/kg Additional Notes Pro needs >1.2g/kg: >74g/day Fluid needs 1-1.5L/day Nutrition Intervention Nutrition Support: Cycle day 1 at 60ml/120ml/60ml per hr: MVI, 16% dextrose, 6 mEq Mg, 75%/25% Chloride/ Acetate Kcal 1,190 Protein (gm) 85 Carbohydrates (gm) 250 Fat (gm) 0 Fluid (mL) 1,560 Goal #1 PN to meet nutrient needs as best possible Anticipated Discharge Needs: CPN Follow-Up By: 08/18/19 Additional Comments Labs in am: BMP, Mg, Man
[2019-08-17] MEDS: MERREM/NS 500 MG/50 ML 500 MG/50 ML BAG IV SCH (18:08)
[2019-08-17] MEDS ORDERED: TPN ADULT IV SCH (20:00)
[2019-08-17] MEDS: ZOFRAN IV PRN (20:27)
[2019-08-17] MEDS: LANTUS SUB-Q SCH (23:00)
[2019-08-18] MEDS: HumaLOG SUB-Q SCH ×4 (01:34→18:44)
[2019-08-18] MEDS ORDERED: NACL 0.9% 100 ML IV PRN (07:30)
[2019-08-18 07:56] LABS: Hematocrit 22.6 % (30.3-42.9); Hemoglobin 7.3 gm/dl (10.1-14.3); Mean Corpuscular HGB Conc 32 % (30-34); Mean Corpuscular Volume 84 fl (79-97); Platelet Count 214 K/mm3 (140-440); Red Blood Count 2.68 M/mm3 (3.65-5.03); Red Cell Distribution Width 17.1 % (13.2-15.2)
[2019-08-18 08:14] LABS: Calcium 8.2 mg/dL (8.4-10.2)
[2019-08-18] MEDS: RENVELA PO SCH ×2 (08:37→17:43)
[2019-08-18] MEDS: ATIVAN IV PRN (08:46)
[2019-08-18] MEDS: SODIUM BICARBONATE PO SCH ×2 (10:34→18:47)
[2019-08-18] MEDS: DELTASONE PO SCH (10:35)
[2019-08-18] MEDS: ATARAX PO SCH (10:35)
[2019-08-18] MEDS: CELLCEPT PO SCH (10:35)
[2019-08-18] MEDS: COZAAR PO SCH (10:35)
[2019-08-18] MEDS: FOLVITE PO SCH (10:36)
[2019-08-18] MEDS: PROTONIX PO SCH (10:36)
[2019-08-18] MEDS: KEPPRA PO SCH (10:36)
[2019-08-18] MEDS: NORMODYNE PO SCH (10:36)
[2019-08-18] MEDS: PLAQUENIL PO SCH (10:36)
[2019-08-18] MEDS: VITAMIN B-12 PO SCH (10:37)
--- NOTE | 2019-08-18 10:55 | Progress Note ---
Assessment and Plan - Patient Problems (1) Acute metabolic encephalopathy Current Visit: Yes Status: Acute (2) End-stage renal disease needing dialysis Current Visit: Yes Status: Acute (3) Lupus Current Visit: Yes Status: Acute (4) Pancreatitis Current Visit: Yes Status: Acute Qualifiers: Chronicity: acute Acute pancreatitis complication: unspecified (5) Vulvar abscess Current Visit: Yes Status: Acute (6) Seizure Current Visit: Yes Status: Acute (7) Anemia Current Visit: Yes Status: Acute (8) Malnutrition compromising bodily function Current Visit: Yes Status: Acute History Interval history: Patient for hemodialysis today. Tolerated blood transfusion well yesterday. Hospitalist Physical - Constitutional Vitals: Temp Pulse Resp BP Pulse Ox 97.5 F L 98 H 18 146/66 98 08/18/19 09:07 08/18/19 10:45 08/18/19 09:07 08/18/19 10:45 08/18/19 05:34 General appearance: Present: no acute distress, cachectic, disheveled Results - Labs CBC & Chem 7: 08/18/19 07:30 08/18/19 07:30 Labs: Laboratory Last Values WBC 18.1 K/mm3 (4.5-11.0) H 08/18/19 07:30 RBC 2.68 M/mm3 (3.65-5.03) L 08/18/19 07:30 Hgb 7.3 gm/dl (10.1-14.3) L 08/18/19 07:30 Hct 22.6 % (30.3-42.9) L 08/18/19 07:30 MCV 84 fl (79-97) 08/18/19 07:30 MCH 27 pg (28-32) L 08/18/19 07:30 MCHC 32 % (30-34) 08/18/19 07:30 RDW 17.1 % (13.2-15.2) H 08/18/19 07:30 Plt Count 214 K/mm3 (140-440) 08/18/19 07:30 Lymph # Business Systems Administrator 08/02/19 09:03 Add Manual Diff Complete 08/17/19 06:07 Total Counted 100 08/17/19 06:07 Seg Neuts % (Manual) 93.0 % (40.0-70.0) H 08/17/19 06:07 Band Neutrophils % 1.0 % 08/17/19 06:07 Lymphocytes % (Manual) 5.0 % (13.4-35.0) L 08/17/19 06:07 Reactive Lymphs % (Man) 0 % 08/17/19 06:07 Monocytes % (Manual) 1.0 % (0.0-7.3) 08/17/19 06:07 Eosinophils % (Manual) 0 % (0.0-4.3) 08/17/19 06:07 Basophils % (Manual) 0 % (0.0-1.8) 08/17/19 06:07 Metamyelocytes % 0 % 08/17/19 06:07 Myelocytes % 0 % 08/17/19 06:07 Promyelocytes % 0 % 08/17/19 06:07 Blast Cells % 0 % 08/17/19 06:07 Nucleated RBC % Not Reportable 08/17/19 06:07 Seg Neutrophils # Man 19.5 K/mm3 (1.8-7.7) H 08/17/19 06:07 Band Neutrophils # 0.2 K/mm3 08/17/19 06:07 Lymphocytes # (Manual) 1.1 K/mm3 (1.2-5.4) L 08/17/19 06:07 Abs React Lymphs (Man) 0.0 K/mm3 08/17/19 06:07 Monocytes # (Manual) 0.2 K/mm3 (0.0-0.8) 08/17/19 06:07 Eosinophils # (Manual) 0.0 K/mm3 (0.0-0.4) 08/17/19 06:07 Basophils # (Manual) 0.0 K/mm3 (0.0-0.1) 08/17/19 06:07 Metamyelocytes # 0.0 K/mm3 08/17/19 06:07 Myelocytes # 0.0 K/mm3 08/17/19 06:07 Promyelocytes # 0.0 K/mm3 08/17/19 06:07 Blast Cells # 0.0 K/mm3 08/17/19 06:07 Pathologist Review 08/02/19 09:03 WBC Morphology Not Reportable 08/17/19 06:07 Hypersegmented Neuts Not Reportable 08/17/19 06:07 Hyposegmented Neuts Not Reportable 08/17/19 06:07 Hypogranular Neuts Not Reportable 08/17/19 06:07 Smudge Cells Not Reportable 08/17/19 06:07 Toxic Granulation Not Reportable 08/17/19 06:07 Toxic Vacuolation Not Reportable 08/17/19 06:07 Dohle Bodies Not Reportable 08/17/19 06:07 Pelger-Huet Anomaly Not Reportable 08/17/19 06:07 Rose Rods Not Reportable 08/17/19 06:07 Platelet Estimate Consistent w auto 08/17/19 06:07 Clumped Platelets Not Reportable 08/17/19 06:07 Plt Clumps, EDTA Not Reportable 08/17/19 06:07 Large Platelets Not Reportable 08/17/19 06:07 Giant Platelets Not Reportable 08/17/19 06:07 Platelet Satelliting Not Reportable 08/17/19 06:07 Plt Morphology Comment Not Reportable 08/17/19 06:07 RBC Morphology Not Reportable 08/17/19 06:07 Dimorphic RBCs Not Reportable 08/17/19 06:07 Polychromasia Few 08/17/19 06:07 Hypochromasia 1+ 08/17/19 06:07 Poikilocytosis Not Reportable 08/17/19 06:07 Anisocytosis 1+ 08/17/19 06:07 Microcytosis Few 08/17/19 06:07 Macrocytosis Not Reportable 08/17/19 06:07 Spherocytes Not Reportable 08/17/19 06:07 Pappenheimer Bodies Not Reportable 08/17/19 06:07 Sickle Cells Not Reportable 08/17/19 06:07 Target Cells Few 08/17/19 06:07 Tear Drop Cells Not Reportable 08/17/19 06:07 Ovalocytes Not Reportable 08/17/19 06:07 Stomatocytes Few 08/17/19 06:07 Helmet Cells Not Reportable 08/17/19 06:07 Benavidez-[place] Bodies Not Reportable 08/17/19 06:07 [place] Rings Not Reportable 08/17/19 06:07 Bk Cells Not Reportable 08/17/19 06:07 Bite Cells Not Reportable 08/17/19 06:07 Crenated Cell Not Reportable 08/17/19 06:07 Elliptocytes Not Reportable 08/17/19 06:07 Acanthocytes (Spur) Not Reportable 08/17/19 06:07 Rouleaux Not Reportable 08/17/19 06:07 Hemoglobin C Crystals Not Reportable 08/17/19 06:07 Schistocytes Not Reportable 08/17/19 06:07 Malaria parasites Not Reportable 08/17/19 06:07 ESR 78 mm/Hr (0-20) 07/26/19 05:25 Dinesh Bodies Not Reportable 08/17/19 06:07 Hem Pathologist Commnt No 08/17/19 06:07 PT 16.7 Sec. (12.2-14.9) H 07/26/19 06:31 INR 1.39 (0.87-1.13) H 07/26/19 06:31 APTT 41.1 Sec. (24.2-36.6) H 07/26/19 06:31 Sodium 134 mmol/L (137-145) L 08/18/19 07:30 Potassium 4.5 mmol/L (3.6-5.0) 08/18/19 07:30 Chloride 90.1 mmol/L (98-107) L 08/18/19 07:30 Carbon Dioxide 21 mmol/L (22-30) L 08/18/19 07:30 Anion Gap 27 mmol/L 08/18/19 07:30 BUN 93 mg/dL (7-17) H 08/18/19 07:30 Creatinine 6.8 mg/dL (0.7-1.2) H 08/18/19 07:30 Estimated GFR 9 ml/min 08/18/19 07:30 BUN/Creatinine Ratio 14 % 08/18/19 07:30 Glucose 323 mg/dL (65-100) H 08/18/19 07:30 POC Glucose 270 (70-105) H 08/18/19 07:12 Hemoglobin A1c 5.9 % (4-6) 08/08/19 09:27 Lactic Acid 1.40 mmol/L (0.7-2.0) 08/02/19 15:24 Calcium 8.2 mg/dL (8.4-10.2) L 08/18/19 07:30 Phosphorus 5.00 mg/dL (2.5-4.5) H D 08/18/19 07:30 Magnesium 1.80 mg/dL (1.7-2.3) 08/18/19 07:30 Iron 58 ug/dL (37-170) 08/03/19 04:15 TIBC 150 mcg/dL (250-450) L 08/03/19 04:15 Ferritin 5729.0 ng/mL (13.0-400.0) H 08/03/19 04:15 Total Bilirubin 0.30 mg/dL (0.1-1.2) 08/09/19 04:56 Direct Bilirubin < 0.2 mg/dL (0-0.2) 07/26/19 06:31 Indirect Bilirubin 0.1 mg/dL 07/26/19 06:31 AST 13 units/L (5-40) 08/09/19 04:56 ALT 5 units/L (7-56) L 08/09/19 04:56 Alkaline Phosphatase 86 units/L (35-129) 08/09/19 04:56 Total Creatine Kinase 43 units/L (30-135) 07/26/19 05:25 Troponin T 0.072 ng/mL (0.00-0.029) H 07/26/19 06:31 C-Reactive Protein 40.30 mg/dL (0.00-1.30) H 08/03/19 10:23 NT-Pro-B Natriuret Pep 18467 pg/mL (0-450) H 07/26/19 06:31 Total Protein 6.5 g/dL (6.3-8.2) 08/09/19 04:56 Albumin 2.6 g/dL (3.9-5) L 08/09/19 04:56 Albumin/Globulin Ratio 0.7 % 08/09/19 04:56 Triglycerides 261 mg/dL (2-149) H 08/03/19 04:15 Cholesterol 91 mg/dL (50-199) 07/26/19 06:31 LDL Cholesterol Direct 30 mg/dL (50-130) L 07/26/19 06:31 HDL Cholesterol 25 mg/dL (40-59) L 07/26/19 06:31 Cholesterol/HDL Ratio 3.64 % 07/26/19 06:31 Amylase 784 units/L (27-131) H 08/10/19 07:06 Lipase 279 units/L (13-60) H 08/12/19 Unknown Procalcitonin 22.18 ng/mL (<0.15) 08/02/19 16:38 HCG, Qual Negative (Negative) 07/30/19 02:40 HCG, Quant < 2 mIU/mL (0-4) 07/26/19 05:25 CSF Appearance Clear 08/01/19 10:40 CSF Color Colorless 08/01/19 10:40 CSF WBC 0 /mm3 (1-10) 08/01/19 10:40 CSF RBC 0 /mm3 (0-0) 08/01/19 10:40 CSF Seg Neutrophils 0 % (0-6) 08/01/19 10:40 CSF Lymphocytes % 0 % (40-80) 08/01/19 10:40 CSF Reactive Lymphs 0 % 08/01/19 10:40 CSF Monocytes % 0 % (15-45) 08/01/19 10:40 CSF Eosinophils % 0 % 08/01/19 10:40 CSF Basophils 0 % 08/01/19 10:40 CSF Pathologist Review C 08/01/19 10:40 CSF Glucose 57 mg/dL 08/01/19 10:40 CSF Total Protein 84 mg/dL 08/01/19 10:40 CSF VDRL Nonreactive (Nonreactive) 08/01/19 10:40 Random Vancomycin 14.9 ug/mL (0-40.0) 08/06/19 05:18 Double Strand DNA Ab See scanned result 07/30/19 11:40 Complement C3 107 mg/dL (83-193) 08/01/19 16:07 Complement C4 32 mg/dL (15-57) 08/01/19 16:07 RPR Nonreactive (Nonreactive) 07/26/19 05:25 Hepatitis A IgM Ab Non-reactive (NonReactive) 07/26/19 10:53 Hep Bs Antigen Non-reactive (Negative) 07/26/19 10:53 Hep B Core IgM Ab Non-reactive (NonReactive) 07/26/19 10:53 Hepatitis C Antibody Non-reactive (NonReactive) 07/26/19 10:53 HIV-1 Antibody See scanned result 08/01/19 13:17 HIV-2 Ab (Immunoblot) See scanned result 08/01/19 13:17 Blood Type A POSITIVE 08/17/19 09:18 Antibody Screen Negative 08/17/19 09:18 Crossmatch See Detail 08/17/19 09:18 Active Medications - Current Medications Current Medications: Generic Name Dose Route Start Last Admin Trade Name Freq PRN Reason Stop Dose Admin Acetaminophen 650 mg 07/26/19 11:08 08/03/19 21:27 Tylenol PO 650 mg Q6H PRN Administration Pain, Mild (1-3) Albuterol 2.5 mg 07/26/19 15:39 Proventil IH QID PRN Wheezing Lipase/Protease/Amylase 1 each 07/31/19 08:26 Pancreaze 10,500 Unit FEEDTUBE PRN PRN For Clogged Feeding Tube Cyanocobalamin 1,000 mcg 07/27/19 10:00 08/18/19 10:37 Vitamin B-12 PO Not Given QDAY JOEL Dextrose 25 ml 07/26/19 11:06 08/13/19 08:12 D50w (25gm) Syringe IV 25 ml PRN PRN Administration Hypoglycemia Epoetin Mitch 20,000 unit 08/13/19 08:34 08/13/19 19:02 Procrit SUB-Q 20,000 unit FAN PRN Administration hemodialysis Folic Acid 1 mg 07/27/19 10:00 08/18/19 10:36 Folvite PO Not Given QDAY [facility] Hydralazine HCl 10 mg 07/30/19 20:16 08/13/19 13:31 Apresoline IV 10 mg Q4HR PRN Administration Blood Pressure Hydroxychloroquine Sulfate 200 mg 07/27/19 10:00 08/18/19 10:36 Plaquenil PO Not Given QDAY [facility] Hydroxyzine HCl 50 mg 07/27/19 10:00 08/18/19 10:35 Atarax PO Not Given QDAY [facility] Meropenem 500 mg in 50 mls @ 50 mls/hr 08/14/19 18:00 08/17/19 18:08 Merrem/Ns 500 Mg/50 Ml IV 50 mls/hr QPM JOEL Administration Amino Acids/Electrolytes/Dextrose 2,280 mls @ 0 mls/hr 08/17/19 20:00 08/17/19 20:16 Tpn Adult IV 08/18/19 16:01 60 mls/hr DAILY@2000 JOEL Administration Protocol As Directed Sodium Chloride 100 mls @ 999 mls/hr 08/18/19 07:30 Nacl 0.9% IV FAN PRN Hypotension Insulin Glargine 20 units 08/08/19 22:00 08/17/19 23:00 Lantus SUB-Q 20 units QHS [facility] Administration Insulin Human Lispro 0 unit 08/08/19 13:00 08/18/19 07:35 Humalog SUB-Q 6 unit Q6HR [facility] Administration Protocol Labetalol HCl 300 mg 07/26/19 16:00 08/18/19 10:36 Normodyne PO Not Given BID [facility] Levetiracetam 500 mg 08/09/19 22:00 08/18/19 10:36 Keppra PO Not Given BID [facility] Lorazepam 0.5 mg 08/14/19 13:04 08/18/19 08:46 Ativan IV 0.5 mg Q4H PRN Administration Anxiety Losartan Potassium 50 mg 07/27/19 10:00 08/18/19 10:35 Cozaar PO Not Given QDAY [facility] Mycophenolate Mofetil 500 mg 07/27/19 10:00 08/18/19 10:35 Cellcept PO Not Given QDAY [facility] Ondansetron HCl 4 mg 07/29/19 23:31 08/17/19 20:27 Zofran IV 4 mg Q6H PRN Administration Nausea And Vomiting Oxycodone/Acetaminophen 1 tab 07/29/19 15:49 08/15/19 23:57 Percocet 5/325 PO 1 tab Q8H PRN Administration Pain, Moderate (4-6) Pantoprazole Sodium 40 mg 08/09/19 10:00 08/18/19 10:36 Protonix PO Not Given BID [facility] Prednisone 20 mg 07/27/19 10:00 08/18/19 10:35 Deltasone PO Not Given QDAY [facility] Sevelamer Carbonate 800 mg 07/26/19 16:30 08/18/19 08:37 Renvela PO Not Given 0730,1630 [facility] Simple Syrup 15 ml 07/31/19 08:26 08/15/19 22:33 Simple Syrup FEEDTUBE 15 ml PRN PRN Administration Hypoglycemia Simple Syrup 30 ml 07/31/19 08:26 Simple Syrup FEEDTUBE PRN PRN Hypoglycemia Sodium Bicarbonate 325 mg 07/31/19 08:26 Sodium Bicarbonate FEEDTUBE PRN PRN For Clogged Feeding Tube Sodium Bicarbonate 650 mg 08/08/19 14:00 08/18/19 10:34 Sodium Bicarbonate PO Not Given TID JOEL Nutrition/Malnutrition Assess - Dietary Evaluation Nutrition/Malnutrition Findings: Nutrition Notes Start: 07/26/19 14:40 Freq: Status: Active Protocol: Document 08/18/19 09:45 JOSEY (Rec: 08/18/19 09:55 JOSEY [id number]) Co-Sign 08/18/19 09:45 LM Nutrition Notes Initial or Follow up Reassessment Current Diagnosis CKD (stage V CKD),Hypertension Other Pertinent Diagnosis acute pancreatitis, on HD, MRSA, lupus, anemia, wounds Current Diet CPN at 65ml/hr Labs/Tests Na 134 Cl 90.1 CO2 21 BUN 93 Cr 6.8 BG 323 Ca 8.2 Phos 5 Pertinent Medications Prednisone Height 5 ft 3 in Weight 62.3 kg Paige Body Weight (kg) 52.27 BMI 24.3 Subjective/Other Information TPN day 5. Chart states pt will be discharged today. Case management stated that home health has TPN covered for today. Percent of energy/protein needs met: 66%/100% Burn Absent Trauma Absent Minimum of two criteria Yes Energy Intake (severe) < or equal to 50% Estimated Energy Requirement > or equal to 5 days Muscle Mass Mild Depletion (non-severe) Fluid Accumulation Mild (non-severe) #3 Nutrition Diagnosis Malnutrition Diagnosis Progress(for reassessment Continues documentation) #2 Nutrition Diagnosis Increased nutrient needs ( specify in comment below) Diagnosis Progress(for reassessment Continues documentation) #1 Nutrition Diagnosis Inadequate oral intake Diagnosis Progress(for reassessment Continues documentation) Is patient on ventilator? No Is Patient Ambulatory and/or Out of Bed No REE-([facility]-confined to bed) 1576.680 Kcal/Kg value to use for calculation 29 Approximate Energy Requirements Using 1807 kcal/Kg Calculation Used for Recommendations Kcal/kg Additional Notes Pro needs >1.2g/kg: >75g/day Fluid needs 1-1.5L/day Nutrition Intervention Goal #1 PN to meet nutrient needs as best possible Anticipated Discharge Needs: CPN Follow-Up By: 08/19/19 Additional Comments Labs in am: BMP, Mg, Phos, TG. F/U if pt doesn't get discharged
[2019-08-18] MEDS: PROCRIT SUB-Q PRN (11:49)
--- NOTE | 2019-08-18 12:01 | Progress Note ---
Assessment and Plan Cultures: Wound culture - E coli, whittaker sensitive Blood culture 07/26/2019 no growth today CSF 08/02/2019 no organisms, no leukocytes Right labia drainage 08/02/2019 +E coli pansens, Enterococcus A/P: 49 yo F PMHx ESRD on HD, lupus, previous MRSA infection now with wound infection, abdominal pain and seizures: 1. Acute sepsis: leukocytosis with leukemoid reaction, stable to improving. Possible source necrotizing pancreatitis +/- right labia abscess +/- less likely sinusitis 2. Presumedly complicated acute pancreatitis: improving; ? CT with generalized edema is noted throughout the pancreas with surrounding moderate inflammation. No distinct pancreatic lesion is identified. Lipase 241. Repeat contrasted CT with severely abnormal pancreas with multiple focal areas of nonperfusion in the distal pancreas. Necrotizing pancreatitis could be considered. There is moderate to large fluid throughout the base of the mesentery and left abdomen which is grossly unchanged. On Meropenem x 14 days. 3. Right labia abscess: Right labia drainage 08/02/2019 +whittaker-sensitive E coli and Enterococcus. POWER CHECKER saw pt. Drainage has resolved. 4. Wound infection right buttocks: continue wound care 5. Lupus, immunocompromised host - on plaquenil, cellcept and prednisone ?flare 6. Severe anemia ? plaquenil ?cellcept, ?GI bleed 7. Immunocompromised host 8. ESRD on HD - renally dose antibiotics. Recs: - completed meropenem, will d/c order - continue supportive care Zuleyma Lee MD, FACP [facility] ([facility] C: [phone] O: [phone] F: [phone] Subjective Date of service: 08/18/19 Principal diagnosis: pancreatitis Interval history: No fever. Getting dialysis in room, no distress. Remains on TPN. States she is passing gas. Denies abdominal pain. BM+ Objective - Exam Narrative Exam: Physical Exam: Constitutional: awake, alert, no acute distress Head, Ears, Nose: Normocephalic, atraumatic. External ears, nose normal Eyes: Conjunctivae/corneas clear. No icterus. No ptosis. Neck: Supple, no meningeal signs Cardiovascular: S1, S2 normal. Respiratory: Good air entry, clear to auscultation bilaterally GI: soft, non tender; bowel sounds + Musculoskeletal: No pedal edema, no cyanosis. Skin: No rash or abscess, +multiple old scars and +right hip superficial wound Hem/Lymphatic: No palpable cervical or supraclavicular nodes. No lymphangitis Psych: flat affect Neurological: awake, alert and oriented - Constitutional Vitals: Vital Signs Temp Pulse Resp BP Pulse Ox 97.5 F L 86 18 132/63 98 08/18/19 09:07 08/18/19 11:45 08/18/19 09:07 08/18/19 11:45 08/18/19 05:34 Temperature -Last 24 Hours Temperature 97.5 F Temperature 97.8 F Temperature 97.8 F Temperature 97.9 F - Labs CBC & Chem 7: 08/18/19 07:30 08/18/19 07:30 Labs: Abnormal lab results 08/17/19 08/17/19 08/17/19 Range/Units 06:07 09:18 11:58 WBC 21.0 H (4.5-11.0) K/mm3 RBC (3.65-5.03) M/mm3 Hgb (10.1-14.3) gm/dl Hct (30.3-42.9) % MCH (28-32) pg RDW (13.2-15.2) % Seg Neuts % (Manual) 93.0 H (40.0-70.0) % Lymphocytes % (Manual) 5.0 L (13.4-35.0) % Seg Neutrophils # Man 19.5 H (1.8-7.7) K/mm3 Lymphocytes # (Manual) 1.1 L (1.2-5.4) K/mm3 Sodium (137-145) mmol/L Chloride (98-107) mmol/L Carbon Dioxide (22-30) mmol/L BUN (7-17) mg/dL Creatinine (0.7-1.2) mg/dL Glucose (65-100) mg/dL POC Glucose 127 H (70-105) Calcium (8.4-10.2) mg/dL Phosphorus (2.5-4.5) mg/dL Crossmatch See Detail 08/17/19 08/18/19 08/18/19 Range/Units 17:26 00:06 07:12 WBC (4.5-11.0) K/mm3 RBC (3.65-5.03) M/mm3 Hgb (10.1-14.3) gm/dl Hct (30.3-42.9) % MCH (28-32) pg RDW (13.2-15.2) % Seg Neuts % (Manual) (40.0-70.0) % Lymphocytes % (Manual) (13.4-35.0) % Seg Neutrophils # Man (1.8-7.7) K/mm3 Lymphocytes # (Manual) (1.2-5.4) K/mm3 Sodium (137-145) mmol/L Chloride (98-107) mmol/L Carbon Dioxide (22-30) mmol/L BUN (7-17) mg/dL Creatinine (0.7-1.2) mg/dL Glucose (65-100) mg/dL POC Glucose 192 H 265 H 270 H (70-105) Calcium (8.4-10.2) mg/dL Phosphorus (2.5-4.5) mg/dL Crossmatch 08/18/19 08/18/19 08/18/19 Range/Units 07:30 07:30 11:34 WBC 18.1 H (4.5-11.0) K/mm3 RBC 2.68 L (3.65-5.03) M/mm3 Hgb 7.3 L (10.1-14.3) gm/dl Hct 22.6 L (30.3-42.9) % MCH 27 L (28-32) pg RDW 17.1 H (13.2-15.2) % Seg Neuts % (Manual) (40.0-70.0) % Lymphocytes % (Manual) (13.4-35.0) % Seg Neutrophils # Man (1.8-7.7) K/mm3 Lymphocytes # (Manual) (1.2-5.4) K/mm3 Sodium 134 L (137-145) mmol/L Chloride 90.1 L (98-107) mmol/L Carbon Dioxide 21 L (22-30) mmol/L BUN 93 H (7-17) mg/dL Creatinine 6.8 H (0.7-1.2) mg/dL Glucose 323 H (65-100) mg/dL POC Glucose 232 H (70-105) Calcium 8.2 L (8.4-10.2) mg/dL Phosphorus 5.00 H D (2.5-4.5) mg/dL Crossmatch
[2019-08-18] MEDS ORDERED: NACL 0.9 (PRIMING MACHINE ONLY DIALYSIS) MC ONE (12:58)
--- NOTE | 2019-08-18 14:08 | Discharge Summary ---
Providers - Providers Date of Admission: 07/26/19 08:09 Date of discharge: 08/18/19 Attending physician: MARIANA LEE 07/26/19 20:12 Consult to Wound/ET Nurse [CONS] Routine Reason For Exam: wound eval 07/28/19 16:42 Physical Therapy Evaluation and Treat [CONS] Routine Comment: Reason For Exam: Generalized Weakness 07/30/19 11:05 Consult to Physician [CONS] Urgent Comment: Consulting Provider: DESTIN PRETTY Physician Instructions: Reason For Exam: seizures 07/31/19 07:33 Consult to Physician [CONS] Routine Comment: Consulting Provider: BRADLEY LARA Physician Instructions: Reason For Exam: Ecoli wound infection/persistant leukocytosis 07/31/19 08:26 Consult to Dietitian/Nutrition [CONS] Routine Physician Instructions: Assess nutrtn needs, initiate, modify, manage TF Reason For Exam: Reason for Consult: Write/Manage Tube Feeding Reason for Consult: Write/Manage Tube Feeding 08/01/19 16:22 Consult to Physician [CONS] Routine Comment: Consulting Provider: EDUARD EMERSON Physician Instructions: Reason For Exam: acute pancreatitis 08/02/19 08:00 Consult to Physician [CONS] Routine Comment: Consulting Provider: LINO SCOTT Physician Instructions: Reason For Exam: Seizures/severe metabolic encephalopathy/lupus 08/02/19 15:33 Consult to Physician [CONS] Routine Comment: Consulting Provider: JACE EDOUARD Physician Instructions: Reason For Exam: Labial Abscess 08/04/19 17:27 Consult to Physician [CONS] Routine Comment: Consulting Provider: NETTA WILLIS Physician Instructions: Reason For Exam: necrotising pancreatitis 08/11/19 11:34 Physical Therapy Evaluation and Treat [CONS] Routine Comment: Reason For Exam: generalized weakness 08/12/19 11:40 Consult to Dietitian/Nutrition [CONS] Routine Physician Instructions: Reason For Exam: Reason for Consult: Write/Manage TPN/PPN Consult to PICC Line RN [CONS] Routine Reason For Exam: ok'd by [employer] Floor Worker Dr. [place], for TPN Type Line:: PICC 08/13/19 10:52 Consult to Dietitian/Nutrition [CONS] Routine Physician Instructions: Reason For Exam: Reason for Consult: Write/Manage TPN/PPN Primary care physician: CODING SUPPORT SPECIALIST Hospitalization Condition: Fair Hospital course: Patient 29 years old presented this with sepsis secondary to necrotizing pancreatitis and labial abscess. Patient was born and started on meropenem 14 days patient developed new-onset seizures and altered mental status. Patient will status improved as her infection improved. Patient is able to make needs known. Remains ill. Patient developed chronic kidney disease and required hemodialysis. Patient be discharged home on hemodialysis. Patient hospital course was also complicated by anemia of chronic disease and iron deficiency anemia requiring transfusion. Patient tolerated transfusion well. Patient will status was evaluated by MRI which was unremarkable. Patient will be discharged home in stable but chronically ill condition. To receive hemodialysis and TPN for greater than 90 days. Patient will require this for pancreatitis. Disposition: - TO HOME OR SELFCARE - Discharge Diagnoses (1) Acute metabolic encephalopathy Status: Acute Comment: Metabolic encephalopathy has resolved. Patient at baseline. (2) End-stage renal disease needing dialysis Status: Acute Comment: Into hemodialysis Thursday. (3) Lupus Status: Acute (4) Pancreatitis Status: Acute Qualifiers: Chronicity: acute Acute pancreatitis complication: unspecified Comment: Patient with necrotizing pancreatitis. No longer had any abdominal pain defervesce well. Patient is afebrile no abdominal pain. Continue TPN and bowel rest. (5) Vulvar abscess Status: Acute Comment: Syncopal abscesses drained. Small erythematous area. no longer need antibiotic coverage now. (6) Seizure Status: Acute Comment: Continue The patient has been seizure-free since that time. (7) Anemia Status: Acute Comment: Secondary to iron deficiency and chronic disease. Can be transfused at dialysis. Dr. Tellez&Anel (8) Malnutrition compromising bodily function Status: Acute Comment: Continue TPN as we're doing. Recently removed. Core Measure Documentation - Palliative Care Palliative Care/ Comfort Measures: Not Applicable - Core Measures Any of the following diagnoses?: none Exam - Constitutional Vitals: Temp Pulse Resp BP Pulse Ox 98.7 F 96 H 16 144/69 98 08/18/19 12:30 08/18/19 12:30 08/18/19 12:30 08/18/19 12:30 08/18/19 05:34 General appearance: Present: no acute distress - EENT Eyes: Present: PERRL, EOM intact ENT: hearing intact - Neck Neck: Present: supple, normal ROM - Respiratory Respiratory effort: normal Respiratory: bilateral: CTA - Cardiovascular Heart Sounds: Present: S1 & S2. Absent: rub, click - Extremities Extremities: pulses symmetrical, No edema Peripheral Pulses: within normal limits - Abdominal General gastrointestinal: Present: soft, non-tender, non-distended, normal bowel sounds Female genitourinary: Present: normal - Integumentary Integumentary: Present: clear, warm, dry - Musculoskeletal Musculoskeletal: generalized weakness, other - Psychiatric Psychiatric: appropriate mood/affect, other (poor cognition. Depressed mood.) - Neurologic Neurologic: CNII-XII intact, moves all extremities Plan Activity: up only with assistance, fall precautions Weight Bearing Status: Partial Weight Bearing Diet: other (tpn) Wound: open to air Special Instructions: home health RN Follow up with: BRISEIDA EISENBERGNIPTON MD PARAMJIT [Referring] - 3-5 Days Forms: AMA Form Prescriptions: hydrOXYzine HCL [Atarax] 50 mg PO QDAY #30 Mycophenolate [Cellcept] 500 mg PO QDAY #30 Losartan [Cozaar] 50 mg PO QDAY #30 predniSONE [Deltasone] 20 mg PO QDAY #30 Folic Acid [Folvite] 1 mg PO QDAY #30 Gabapentin 300 mg PO 3XW #60 levETIRAcetam [Keppra TAB] 500 mg PO BID #60 tablet Labetalol [Labetalol 200mg TAB] 300 mg PO BID #60 tablet Insulin Glargine [Lantus VIAL] 20 units SUB-Q QHS #1 units oxyCODONE /ACETAMINOPHEN [Percocet 5/325 mg] 1 tab PO Q8H PRN #30 tablet PRN Reason: Pain, Moderate (4-6) Hydroxychloroquine [Plaquenil] 200 mg PO QDAY #30 Pantoprazole [Protonix TAB] 40 mg PO BID #60 tablet Sevelamer Carbonate [Renvela] 800 mg PO 0730,1630 #30 tablet Cyanocobalamin (Vitamin B-12) [Vitamin B-12] 1,000 mcg PO QDAY #20
--- NOTE | 2019-08-18 16:11 | Progress Note ---
Assessment and Plan 1. ESRD: On maintenance hemodialysis three times a week, TTS schedule. 2. FEN: Hyperkalemia, K level is better. Monitor lytes. 3. Anemia: Epogen with HD. 4. New onset seizures: On Keppra. 5. Metabolic encephalopathy: Mostly resolved. 6. Sepsis. Vulvar abscess, s/p I&D. Followed by ID. 7. Acute pancreatitis: Continue supportive care. On PPN / TPN. 8. History of lupus: On Cellcept, Plaquenil and Prednisone. Patient is going home with home TPN treatment. Examination: General appearance: alert, appears stated age, not in distress HEENT: ATNC Respiratory: Clear to Ascultation Cardiology: regular, S1S2, no murmur Gastrointestinal: normoactive bowel sounds, no tenderness, not distended Integumentary: no rash Neurologic: alert, able to move extremities Musculoskeletal: no edema Hemodialysis access: L arm AVF Subjective Date of service: 08/18/19 Principal diagnosis: pancreatitis Interval history: Patient was seen and examined at the bedside. Doing better. Objective - Vital Signs Vital signs: Vital Signs - 12hr 08/18/19 08/18/19 08/18/19 05:34 09:07 09:21 Temperature 97.8 F 97.5 F L Pulse Rate 100 H 100 H 100 H Respiratory 18 18 Rate Blood Pressure 143/91 154/83 154/80 O2 Sat by Pulse 98 Oximetry 08/18/19 08/18/19 08/18/19 09:30 09:45 10:00 Temperature Pulse Rate 102 H 101 H 100 H Respiratory Rate Blood Pressure 156/81 157/74 146/81 O2 Sat by Pulse Oximetry 08/18/19 08/18/19 08/18/19 10:15 10:30 10:45 Temperature Pulse Rate 102 H 103 H 98 H Respiratory Rate Blood Pressure 143/80 131/65 146/66 O2 Sat by Pulse Oximetry 08/18/19 08/18/19 08/18/19 11:00 11:15 11:30 Temperature Pulse Rate 101 H 98 H 97 H Respiratory Rate Blood Pressure 133/64 128/62 125/60 O2 Sat by Pulse Oximetry 08/18/19 08/18/19 08/18/19 11:45 12:00 12:15 Temperature Pulse Rate 86 98 H 96 H Respiratory Rate Blood Pressure 132/63 119/59 117/69 O2 Sat by Pulse Oximetry 08/18/19 08/18/19 12:22 12:30 Temperature 98.7 F Pulse Rate 98 H 96 H Respiratory 16 Rate Blood Pressure 131/65 144/69 O2 Sat by Pulse Oximetry - Lab 08/18/19 07:30 08/18/19 07:30 Most recent lab results Calcium 8.2 mg/dL (8.4-10.2) L 08/18/19 07:30 Phosphorus 5.00 mg/dL (2.5-4.5) H D 08/18/19 07:30 Magnesium 1.80 mg/dL (1.7-2.3) 08/18/19 07:30 Medications & Allergies - Medications Allergies/Adverse Reactions: Allergies lactose Adverse Reaction (Verified 07/29/19 08:16) Unknown Home Medications: Home Medications Medication Instructions Recorded Confirmed Last Taken Type ALBUTEROL NEB's [Proventil 0.083% 2.5 mg IH QID PRN 07/26/19 07/26/19 07/25/19 History NEBS] Labetalol HCl [Labetalol 300mg TAB] 300 mg PO Q12H 07/26/19 07/26/19 07/25/19 History Mirtazapine 7.5 mg PO QDAY 07/26/19 07/26/19 07/25/19 History Pantoprazole [Protonix TAB] 40 mg PO BID 07/26/19 07/26/19 07/25/19 History Sevelamer HCl [Renagel] 800 mg PO BIDWM 07/26/19 07/26/19 07/25/19 History Acetaminophen [Acetaminophen TAB] 650 mg PO Q6H PRN tablet 08/18/19 Unknown Rx Cyanocobalamin (Vitamin B-12) 1,000 mcg PO QDAY #20 08/18/19 Unknown Rx [Vitamin B-12] Epoetin Mitch 20,000 Unit [Procrit] 20,000 unit SUB-Q FAN PRN vial 08/18/19 Unknown Rx Folic Acid [Folvite] 1 mg PO QDAY #30 08/18/19 Unknown Rx Gabapentin 300 mg PO 3XW #60 08/18/19 Unknown Rx Hydroxychloroquine [Plaquenil] 200 mg PO QDAY #30 08/18/19 Unknown Rx Insulin Glargine [Lantus VIAL] 20 units SUB-Q QHS #1 units 08/18/19 Unknown Rx Labetalol [Labetalol 200mg TAB] 300 mg PO BID #60 tablet 08/18/19 Unknown Rx Losartan [Cozaar] 50 mg PO QDAY #30 08/18/19 Unknown Rx Mycophenolate [Cellcept] 500 mg PO QDAY #30 08/18/19 Unknown Rx Pantoprazole [Protonix TAB] 40 mg PO BID #60 tablet 08/18/19 Unknown Rx Sevelamer Carbonate [Renvela] 800 mg PO 0730,1630 #30 tablet 08/18/19 Unknown Rx Total Parenteral Nutrition [TPN 12 ml IV DAILY@2000 ml 08/18/19 Unknown Rx Adult] hydrOXYzine HCL [Atarax] 50 mg PO QDAY #30 08/18/19 Unknown Rx levETIRAcetam [Keppra TAB] 500 mg PO BID #60 tablet 08/18/19 Unknown Rx oxyCODONE /ACETAMINOPHEN [Percocet 1 tab PO Q8H PRN #30 tablet 08/18/19 Unknown Rx 5/325 mg] predniSONE [Deltasone] 20 mg PO QDAY #30 08/18/19 Unknown Rx Active Medications: Generic Name Dose Route Start Last Admin Trade Name Freq PRN Reason Stop Dose Admin Acetaminophen 650 mg 07/26/19 11:08 08/03/19 21:27 Tylenol PO 650 mg Q6H PRN Administration Pain, Mild (1-3) Albuterol 2.5 mg 07/26/19 15:39 Proventil IH QID PRN Wheezing Lipase/Protease/Amylase 1 each 07/31/19 08:26 Pancremarcella Diane 10,500 Unit FEEDTUBE PRN PRN For Clogged Feeding Tube Cyanocobalamin 1,000 mcg 07/27/19 10:00 08/18/19 10:37 Vitamin B-12 PO Not Given QDAY JOEL Dextrose 25 ml 07/26/19 11:06 08/13/19 08:12 D50w (25gm) Syringe IV 25 ml PRN PRN Administration Hypoglycemia Epoetin Mitch 20,000 unit 08/13/19 08:34 08/18/19 11:49 Procrit SUB-Q 20,000 unit FAN PRN Administration hemodialysis Folic Acid 1 mg 07/27/19 10:00 08/18/19 10:36 Folvite PO Not Given QDAY [facility] Hydralazine HCl 10 mg 07/30/19 20:16 08/13/19 13:31 Apresoline IV 10 mg Q4HR PRN Administration Blood Pressure Hydroxychloroquine Sulfate 200 mg 07/27/19 10:00 08/18/19 10:36 Plaquenil PO Not Given QDAY [facility] Hydroxyzine HCl 50 mg 07/27/19 10:00 08/18/19 10:35 Atarax PO Not Given QDAY [facility] Sodium Chloride 100 mls @ 999 mls/hr 08/18/19 07:30 Nacl 0.9% IV FAN PRN Hypotension Insulin Glargine 20 units 08/08/19 22:00 08/17/19 23:00 Lantus SUB-Q 20 units QHS [facility] Administration Insulin Human Lispro 0 unit 08/08/19 13:00 08/18/19 13:29 Humalog SUB-Q 4 unit Q6HR JOEL Administration Protocol Labetalol HCl 300 mg 07/26/19 16:00 08/18/19 10:36 Normodyne PO Not Given BID [facility] Levetiracetam 500 mg 08/09/19 22:00 08/18/19 10:36 Keppra PO Not Given BID [facility] Lorazepam 0.5 mg 08/14/19 13:04 08/18/19 08:46 Ativan IV 0.5 mg Q4H PRN Administration Anxiety Losartan Potassium 50 mg 07/27/19 10:00 08/18/19 10:35 Cozaar PO Not Given QDAY [facility] Mycophenolate Mofetil 500 mg 07/27/19 10:00 08/18/19 10:35 Cellcept PO Not Given QDAY [facility] Ondansetron HCl 4 mg 07/29/19 23:31 08/17/19 20:27 Zofran IV 4 mg Q6H PRN Administration Nausea And Vomiting Oxycodone/Acetaminophen 1 tab 07/29/19 15:49 08/15/19 23:57 Percocet 5/325 PO 1 tab Q8H PRN Administration Pain, Moderate (4-6) Pantoprazole Sodium 40 mg 08/09/19 10:00 08/18/19 10:36 Protonix PO Not Given BID [facility] Prednisone 20 mg 07/27/19 10:00 08/18/19 10:35 Deltasone PO Not Given QDAY JOEL Sevelamer Carbonate 800 mg 07/26/19 16:30 08/18/19 08:37 Renvela PO Not Given 0730,1630 JOEL Simple Syrup 15 ml 07/31/19 08:26 08/15/19 22:33 Simple Syrup FEEDTUBE 15 ml PRN PRN Administration Hypoglycemia Simple Syrup 30 ml 07/31/19 08:26 Simple Syrup FEEDTUBE PRN PRN Hypoglycemia Sodium Bicarbonate 325 mg 07/31/19 08:26 Sodium Bicarbonate FEEDTUBE PRN PRN For Clogged Feeding Tube Sodium Bicarbonate 650 mg 08/08/19 14:00 08/18/19 10:34 Sodium Bicarbonate PO Not Given TID JOEL
[2019-08-18 18:39] VITALS: BP 140/97
[2019-08-19] MEDS: KEPPRA PO SCH (00:34)
[2019-08-19] MEDS: SODIUM BICARBONATE PO SCH (00:34)
[2019-08-19] MEDS: LANTUS SUB-Q SCH (00:35)
[2019-08-19] MEDS: NORMODYNE PO SCH (00:35)
[2019-08-19] MEDS: PROTONIX PO SCH (00:35)
== END 2019-08-18 21:15 | disposition home health service (06) | DRG 853 ==
LOC: ED 03:59 → 4A 08:09 → 3A 07-28 22:02 → IMCU 08-02 14:47 → 3A 08-06 15:40
PROVIDERS: ADMIT Internal Medicine; ATTEND Internal Medicine
PROC: 5A1D70Z Performance of Urinary Filtration, Intermittent, Less than 6 Hours Per Day (ICD-10-PCS; 2019-07-26)
PROC: 30233N1 Transfusion of Nonautologous Red Blood Cells into Peripheral Vein, Percutaneous Approach (ICD-10-PCS; 2019-07-26)
PROC: 5A1D70Z Performance of Urinary Filtration, Intermittent, Less than 6 Hours Per Day (ICD-10-PCS; 2019-07-28)
PROC: 5A1D70Z Performance of Urinary Filtration, Intermittent, Less than 6 Hours Per Day (ICD-10-PCS; 2019-07-30)
PROC: 009U3ZX Drainage of Spinal Canal, Percutaneous Approach, Diagnostic (ICD-10-PCS; principal; 2019-08-02)
PROC: B01B1ZZ Fluoroscopy of Spinal Cord using Low Osmolar Contrast (ICD-10-PCS; 2019-08-02)
PROC: 0U9M0ZZ Drainage of Vulva, Open Approach (ICD-10-PCS; 2019-08-02)
PROC: 5A1D70Z Performance of Urinary Filtration, Intermittent, Less than 6 Hours Per Day (ICD-10-PCS; 2019-08-02)
PROC: 5A1D70Z Performance of Urinary Filtration, Intermittent, Less than 6 Hours Per Day (ICD-10-PCS; 2019-08-04)
PROC: 5A1D70Z Performance of Urinary Filtration, Intermittent, Less than 6 Hours Per Day (ICD-10-PCS; 2019-08-06)
PROC: 5A1D70Z Performance of Urinary Filtration, Intermittent, Less than 6 Hours Per Day (ICD-10-PCS; 2019-08-09)
PROC: 5A1D70Z Performance of Urinary Filtration, Intermittent, Less than 6 Hours Per Day (ICD-10-PCS; 2019-08-11)
PROC: 05HY33Z Insertion of Infusion Device into Upper Vein, Percutaneous Approach (ICD-10-PCS; 2019-08-12)
PROC: 5A1D70Z Performance of Urinary Filtration, Intermittent, Less than 6 Hours Per Day (ICD-10-PCS; 2019-08-13)
PROC: 5A1D70Z Performance of Urinary Filtration, Intermittent, Less than 6 Hours Per Day (ICD-10-PCS; 2019-08-16)
PROC: 5A1D70Z Performance of Urinary Filtration, Intermittent, Less than 6 Hours Per Day (ICD-10-PCS; 2019-08-18)
DX: A41.51 Sepsis due to Escherichia coli [E. coli] (principal); N18.6 End stage renal disease; G93.41 Metabolic encephalopathy; K85.91 Acute pancreatitis with uninfected necrosis, unspecified; E44.0 Moderate protein-calorie malnutrition; N76.4 Abscess of vulva; I12.0 Hypertensive chronic kidney disease with stage 5 chronic kidney disease or end stage renal disease; D62 Acute posthemorrhagic anemia; E87.5 Hyperkalemia; A49.02 Methicillin resistant Staphylococcus aureus infection, unspecified site; L08.9 Local infection of the skin and subcutaneous tissue, unspecified; M32.9 Systemic lupus erythematosus, unspecified; D72.823 Leukemoid reaction; F12.90 Cannabis use, unspecified, uncomplicated; G89.4 Chronic pain syndrome; E16.2 Hypoglycemia, unspecified; E87.70 Fluid overload, unspecified; J32.0 Chronic maxillary sinusitis; R56.9 Unspecified convulsions; Z68.24 Body mass index [BMI] 24.0-24.9, adult; Z79.899 Other long term (current) drug therapy; Z82.49 Family history of ischemic heart disease and other diseases of the circulatory system
CPT/HCPCS: 36415; 36430; 62270; 70450; 70551; 71045; 74018; 74176; 74177; 74181; 76700; 77003; 80048; 80053; 80061; 80074; 80076; 80202; 82140; 82150; 82550; 82728; 82947; 82955; 82962; 83036; 83550; 83690; 83735; 83880; 84100; 84132; 84145; 84160; 84478; 84484; 84702; 84703; 85007; 85025; 85027; 85610; 85652; 85730; 86140; 86160; 86225; 86403; 86592; 86689; 86850; 86900; 86901; 86920; 87040; 87076; 87116; 87186; 89051; 93005; 93010; 94640; 94760; 95819; 96374; 96375; G0378; C9113; J0290; J0360; J0610; J0692; J0885; J1200; J1815; J1953; J2060; J2185; J2270; J2405; J3370; J3475; J7030; J7040; J7050; J7512; J7517; P9016; Q9967

== ENCOUNTER 2019-08-19 17:29 | Inpatient (IN) | payer MEDICARE ==
--- NOTE | 2019-08-19 19:00 | Emergency Department Report ---
ED General Adult HPI - General Chief complaint: Medical Clearance Stated complaint: DISORIENTED Time Seen by Provider: 08/19/19 18:59 Source: EMS Mode of arrival: Stretcher Limitations: No Limitations - History of Present Illness Initial comments: 29-year-old female with a history of necrotizing pancreatitis and a labial abscess for which she was admitted for nearly one month and discharged yesterday on TPN therapy reprocessed emergency department after family states the patient was disoriented this afternoon. Patient is currently oriented to person place and time. Patient denies any recent falls. Family states the patient cannot live alone and they cannot have her live with them. Patient currently denies any chest pain or shortness of breath. Patient denies any headache either. Patient denies any fever. Severity scale (0 -10): 4 - Related Data Home Medications Medication Instructions Recorded Confirmed Last Taken ALBUTEROL NEB's [Proventil 0.083% 2.5 mg IH QID PRN 07/26/19 07/26/19 07/25/19 NEBS] Labetalol HCl [Labetalol 300mg TAB] 300 mg PO Q12H 07/26/19 07/26/19 07/25/19 Mirtazapine 7.5 mg PO QDAY 07/26/19 07/26/19 07/25/19 Pantoprazole [Protonix TAB] 40 mg PO BID 07/26/19 07/26/19 07/25/19 Sevelamer HCl [Renagel] 800 mg PO BIDWM 07/26/19 07/26/19 07/25/19 Previous Rx's Medication Instructions Recorded Last Taken Type Acetaminophen [Acetaminophen TAB] 650 mg PO Q6H PRN tablet 08/18/19 Unknown Rx Cyanocobalamin (Vitamin B-12) 1,000 mcg PO QDAY #20 08/18/19 Unknown Rx [Vitamin B-12] Epoetin Mitch 20,000 Unit [Procrit] 20,000 unit SUB-Q FAN PRN vial 08/18/19 Unknown Rx Folic Acid [Folvite] 1 mg PO QDAY #30 08/18/19 Unknown Rx Gabapentin 300 mg PO 3XW #60 08/18/19 Unknown Rx Hydroxychloroquine [Plaquenil] 200 mg PO QDAY #30 08/18/19 Unknown Rx Insulin Glargine [Lantus VIAL] 20 units SUB-Q QHS #1 units 08/18/19 Unknown Rx Labetalol [Labetalol 200mg TAB] 300 mg PO BID #60 tablet 08/18/19 Unknown Rx Losartan [Cozaar] 50 mg PO QDAY #30 08/18/19 Unknown Rx Mycophenolate [Cellcept] 500 mg PO QDAY #30 08/18/19 Unknown Rx Pantoprazole [Protonix TAB] 40 mg PO BID #60 tablet 08/18/19 Unknown Rx Sevelamer Carbonate [Renvela] 800 mg PO 0730,1630 #30 tablet 08/18/19 Unknown Rx Total Parenteral Nutrition [TPN 12 ml IV DAILY@2000 ml 08/18/19 Unknown Rx Adult] hydrOXYzine HCL [Atarax] 50 mg PO QDAY #30 08/18/19 Unknown Rx levETIRAcetam [Keppra TAB] 500 mg PO BID #60 tablet 08/18/19 Unknown Rx oxyCODONE /ACETAMINOPHEN [Percocet 1 tab PO Q8H PRN #30 tablet 08/18/19 Unknown Rx 5/325 mg] predniSONE [Deltasone] 20 mg PO QDAY #30 08/18/19 Unknown Rx Allergies Allergy/AdvReac Type Severity Reaction Status Date / Time lactose AdvReac Unknown Verified 07/29/19 08:16 ED Review of Systems ROS: Stated complaint: DISORIENTED Other details as noted in HPI Constitutional: denies: chills, fever Eyes: denies: eye pain, eye discharge, vision change ENT: denies: ear pain, throat pain Respiratory: denies: cough, shortness of breath, wheezing Cardiovascular: denies: chest pain, palpitations Endocrine: no symptoms reported Gastrointestinal: denies: abdominal pain, nausea, diarrhea Genitourinary: denies: urgency, dysuria, discharge Musculoskeletal: denies: back pain, joint swelling, arthralgia Skin: denies: rash, lesions Neurological: denies: headache, weakness, paresthesias Psychiatric: denies: anxiety, depression Hematological/Lymphatic: denies: easy bleeding, easy bruising ED Past Medical Hx - Past Medical History Previous Medical History?: Yes Hx Hypertension: Yes Hx Deep Vein Thrombosis: No Hx Renal Disease: Yes (Dialysis Thu-Thu-Thu, told me Thursday) Additional medical history: Lupus - Surgical History Past Surgical History?: Yes Hx Pacemaker: No Hx Internal Defibrillator: No Additional Surgical History: Fractured left leg, AV fistula left arm - Social History Smoking Status: Never Smoker Substance Use Type: None - Medications Home Medications: Home Medications Medication Instructions Recorded Confirmed Last Taken Type ALBUTEROL NEB's [Proventil 0.083% 2.5 mg IH QID PRN 07/26/19 07/26/19 07/25/19 History NEBS] Labetalol HCl [Labetalol 300mg TAB] 300 mg PO Q12H 07/26/19 07/26/19 07/25/19 History Mirtazapine 7.5 mg PO QDAY 07/26/19 07/26/19 07/25/19 History Pantoprazole [Protonix TAB] 40 mg PO BID 07/26/19 07/26/19 07/25/19 History Sevelamer HCl [Renagel] 800 mg PO BIDWM 07/26/19 07/26/19 07/25/19 History Acetaminophen [Acetaminophen TAB] 650 mg PO Q6H PRN tablet 08/18/19 Unknown Rx Cyanocobalamin (Vitamin B-12) 1,000 mcg PO QDAY #20 08/18/19 Unknown Rx [Vitamin B-12] Epoetin Mitch 20,000 Unit [Procrit] 20,000 unit SUB-Q FAN PRN vial 08/18/19 Unknown Rx Folic Acid [Folvite] 1 mg PO QDAY #30 08/18/19 Unknown Rx Gabapentin 300 mg PO 3XW #60 08/18/19 Unknown Rx Hydroxychloroquine [Plaquenil] 200 mg PO QDAY #30 08/18/19 Unknown Rx Insulin Glargine [Lantus VIAL] 20 units SUB-Q QHS #1 units 08/18/19 Unknown Rx Labetalol [Labetalol 200mg TAB] 300 mg PO BID #60 tablet 08/18/19 Unknown Rx Losartan [Cozaar] 50 mg PO QDAY #30 08/18/19 Unknown Rx Mycophenolate [Cellcept] 500 mg PO QDAY #30 08/18/19 Unknown Rx Pantoprazole [Protonix TAB] 40 mg PO BID #60 tablet 08/18/19 Unknown Rx Sevelamer Carbonate [Renvela] 800 mg PO 0730,1630 #30 tablet 08/18/19 Unknown Rx Total Parenteral Nutrition [TPN 12 ml IV DAILY@2000 ml 08/18/19 Unknown Rx Adult] hydrOXYzine HCL [Atarax] 50 mg PO QDAY #30 08/18/19 Unknown Rx levETIRAcetam [Keppra TAB] 500 mg PO BID #60 tablet 08/18/19 Unknown Rx oxyCODONE /ACETAMINOPHEN [Percocet 1 tab PO Q8H PRN #30 tablet 08/18/19 Unknown Rx 5/325 mg] predniSONE [Deltasone] 20 mg PO QDAY #30 08/18/19 Unknown Rx ED Physical Exam - General Limitations: No Limitations (cardiac) General appearance: alert, other (frail; dehydrated) - Head Head exam: Present: atraumatic, normocephalic - Eye Eye exam: Present: normal appearance - ENT ENT exam: Present: mucous membranes dry - Neck Neck exam: Present: normal inspection - Respiratory Respiratory exam: Present: normal lung sounds bilaterally. Absent: respiratory distress - Cardiovascular Cardiovascular Exam: Present: normal rhythm, tachycardia. Absent: systolic murmur, diastolic murmur, rubs, gallop - GI/Abdominal GI/Abdominal exam: Present: soft, normal bowel sounds. Absent: guarding, rebound - Extremities Exam Extremities exam: Present: normal inspection, other (PICC line present with no surrounding erythema) - Back Exam Back exam: Present: normal inspection - Neurological Exam Neurological exam: Present: alert, oriented X3 - Psychiatric Psychiatric exam: Present: normal affect, normal mood - Skin Skin exam: Present: warm, dry, intact, normal color. Absent: rash ED Course Vital Signs 08/19/19 08/19/19 08/19/19 18:22 18:31 18:43 Temperature 98.2 F Pulse Rate 104 H 107 H 86 Respiratory 14 11 L 12 Rate Blood Pressure 129/71 129/84 Blood Pressure 135/95 [Right] O2 Sat by Pulse 96 98 Oximetry 08/19/19 08/19/19 08/19/19 18:45 19:00 19:15 Temperature Pulse Rate 110 H 105 H 114 H Respiratory 18 11 L 19 Rate Blood Pressure 129/71 139/67 139/67 Blood Pressure [Right] O2 Sat by Pulse 100 100 Oximetry ED Medical Decision Making - Lab Data Result diagrams: 08/19/19 20:48 08/19/19 20:48 - EKG Data EKG shows normal: sinus rhythm Rate: tachycardia - EKG Data Interpretation: no acute changes - Medical Decision Making Patient noted to have an elevated glucose. Patient however is not in DKA. Patient on TPN therapy. patient to be started on Insulin drip as blood glucose i s in nine hundred range. Patient also noted to be hypokalemic and with insulin administration was given IV potassium as well. Patient to be admitted to the hospitalist service for continued management and treatment. - Differential Diagnosis DKA; Dehydration; Anemia; electrolyte Abnormality; Critical Care Time: Yes Critical care time in (mins) excluding proc time.: 39 Critical care attestation.: If time is entered above; I have spent that time in minutes in the direct care of this critically ill patient, excluding procedure time. Critical care time includes time spent on frequent reassessment, direct bedside care, and physician consultation. ED Disposition Clinical Impression: Diabetes mellitus with hyperosmolarity without coma, with long-term current use of insulin, Hypokalemia, End-stage renal disease needing dialysis, Hypoalbuminemia Disposition: OP ADMIT IP TO THIS HOSP Is pt being admited?: Yes Condition: Stable Instructions: Diabetes Mellitus Type 2 in Adults (ED) Time of Disposition: 23:05
--- NOTE | 2019-08-19 19:39 | XRay Report ---
CHEST 1 VIEW INDICATION / CLINICAL INFORMATION: chest pain. COMPARISON: 07/26/2019 FINDINGS: SUPPORT DEVICES: Right upper extremity PICC tip in the lower SVC HEART / MEDIASTINUM: Stable cardiomegaly LUNGS / PLEURA: No significant abnormality. No pneumothorax. ADDITIONAL FINDINGS: No significant additional findings. IMPRESSION: 1. No acute findings. Signer Name: Torsten Sutton MD Signed: 08/19/2019 7:35 PM Workstation Name: [id number]
[2019-08-19 21:00] LABS: Hematocrit 22.3 % (30.3-42.9); Hemoglobin 6.8 gm/dl (10.1-14.3); Mean Corpuscular HGB Conc 30 % (30-34); Mean Corpuscular Volume 89 fl (79-97); Platelet Count 167 K/mm3 (140-440); Red Cell Distribution Width 18.6 % (13.2-15.2)
[2019-08-19 21:22] LABS: Albumin 1.9 g/dL (3.9-5); BUN/Creatinine Ratio 12; Blood Urea Nitrogen 64 mg/dL (7-17); Calcium 8.2 mg/dL (8.4-10.2); Hemolysis Index 4
[2019-08-19 21:25] LABS: Alanine Aminotransferase < 5 units/L (7-56)
[2019-08-19] MEDS ORDERED: INSULIN REGULAR, HUMAN 100 UNITS/1 ML IV ONE (21:41)
[2019-08-19] MEDS ORDERED: DEXTROSE 50% IN WATER (25GM) 50 ML SYRINGE IV PRN (21:41)
[2019-08-19] MEDS ORDERED: INSULIN REGULAR, HUMAN 100 UNITS in SODIUM CHLORIDE 0.9% 99 ML IV SCH (22:00)
[2019-08-19 22:09] LABS: Chol/HDL Ratio 4.36 %; HDL Cholesterol 19 mg/dL (40-59); LDL Cholesterol,Direct 34 mg/dL (50-130)
[2019-08-19] MEDS ORDERED: ACETAMINOPHEN 325 MG TAB PO PRN (22:44)
[2019-08-19] MEDS ORDERED: INSULIN GLARGINE 100 UNITS/ML SUB-Q ONE (23:00)
[2019-08-19] MEDS ORDERED: POTASSIUM CHLORIDE 10 MEQ 10 MEQ/100 ML BAG IV SCH ×2 (23:00)
[2019-08-19] MEDS ORDERED: POTASSIUM CHLORIDE 10 MEQ 10 MEQ/100 ML BAG IV ONE (23:05)
--- NOTE | 2019-08-19 23:20 | History and Physical Report ---
History of Present Illness Date of examination: 08/19/19 History of present illness: 29-year-old woman with a history of lupus, end-stage renal disease on dialysis, hypertension, anemia was just discharged from the hospital yesterday after treatment of necrotizing pancreatitis, right labial abscess. Family is unable to care for her, patient is unable to care for herself. No episodes of confusion. She was discharged on TPN, her blood sugar was found to be elevated and she had elevated troponin, she is asymptomatic. She uses a wheelchair Review Of Systems: Constitutional: no weight loss, fever, chills Ears, eyes, nose, mouth and throat: no nasal congestion, no nasal discharge, no sinus pressure, blurry vision, diplopia Neck: No neck pain or rigidity. Cardiovascular: No palpitations, chest pain Respiratory: No shortness of breath, cough Gastrointestinal: No hematochezia, abdominal pain Genitourinary : no dysuria, frequency , hematuria Musculoskeletal: no muscle ache , joint pain Integumentary: no rash, no pruritis Neurological: no parathesias, focal weakness Endocrine: no cold or heat intolerance, no polyuria or polydipsia Hematologic/Lymphatic: no easy bruising, no easy bleeding, no gland swelling Allergic/Immunologic: no urticaria, no angioedema. PAST MEDICAL HISTORY: lupus, end-stage renal disease on dialysis, hypertension, necrotizing pancreatitis, right labial abscess, anemia PAST SURGICAL HISTORY: AV fistula, hip surgery FAMILY HISTORY:hypertension, diabetes SOCIAL HISTORY: Denies tobacco, drugs, alcohol Medications and Allergies Allergies Allergy/AdvReac Type Severity Reaction Status Date / Time lactose AdvReac Unknown Verified 07/29/19 08:16 Home Medications Medication Instructions Recorded Confirmed Last Taken Type ALBUTEROL NEB's [Proventil 0.083% 2.5 mg IH QID PRN 07/26/19 07/26/19 07/25/19 History NEBS] Labetalol HCl [Labetalol 300mg TAB] 300 mg PO Q12H 07/26/19 07/26/19 07/25/19 History Mirtazapine 7.5 mg PO QDAY 07/26/19 07/26/19 07/25/19 History Pantoprazole [Protonix TAB] 40 mg PO BID 07/26/19 07/26/19 07/25/19 History Sevelamer HCl [Renagel] 800 mg PO BIDWM 07/26/19 07/26/19 07/25/19 History Acetaminophen [Acetaminophen TAB] 650 mg PO Q6H PRN tablet 08/18/19 Unknown Rx Cyanocobalamin (Vitamin B-12) 1,000 mcg PO QDAY #20 08/18/19 Unknown Rx [Vitamin B-12] Epoetin Mitch 20,000 Unit [Procrit] 20,000 unit SUB-Q FAN PRN vial 08/18/19 Unknown Rx Folic Acid [Folvite] 1 mg PO QDAY #30 08/18/19 Unknown Rx Gabapentin 300 mg PO 3XW #60 08/18/19 Unknown Rx Hydroxychloroquine [Plaquenil] 200 mg PO QDAY #30 08/18/19 Unknown Rx Insulin Glargine [Lantus VIAL] 20 units SUB-Q QHS #1 units 08/18/19 Unknown Rx Labetalol [Labetalol 200mg TAB] 300 mg PO BID #60 tablet 08/18/19 Unknown Rx Losartan [Cozaar] 50 mg PO QDAY #30 08/18/19 Unknown Rx Mycophenolate [Cellcept] 500 mg PO QDAY #30 08/18/19 Unknown Rx Pantoprazole [Protonix TAB] 40 mg PO BID #60 tablet 08/18/19 Unknown Rx Sevelamer Carbonate [Renvela] 800 mg PO 0730,1630 #30 tablet 08/18/19 Unknown Rx Total Parenteral Nutrition [TPN 12 ml IV DAILY@2000 ml 08/18/19 Unknown Rx Adult] hydrOXYzine HCL [Atarax] 50 mg PO QDAY #30 08/18/19 Unknown Rx levETIRAcetam [Keppra TAB] 500 mg PO BID #60 tablet 08/18/19 Unknown Rx oxyCODONE /ACETAMINOPHEN [Percocet 1 tab PO Q8H PRN #30 tablet 08/18/19 Unknown Rx 5/325 mg] predniSONE [Deltasone] 20 mg PO QDAY #30 08/18/19 Unknown Rx Active Meds: Active Medications Acetaminophen (Tylenol) 650 mg PO Q4H PRN PRN Reason: Pain MILD(1-3)/Fever >100.5/PORTER Dextrose (D50w (25gm) Syringe) 0 ml IV ONCE PRN PRN Reason: Hypoglycemia Dextrose (D50w (25gm) Syringe) 0 ml IV Q30MIN PRN PRN Reason: Hypoglycemia Potassium Chloride (Kcl 10meq/100ml) 10 meq in 100 mls @ 100 mls/hr IV ONCE ONE Stop: 08/20/19 00:04 Insulin Human Lispro (Humalog) 0 unit SUB-Q Q4HR JOEL; Protocol Ondansetron HCl (Zofran) 4 mg IV Q8H PRN PRN Reason: Nausea And Vomiting Sodium Chloride (Sodium Chloride Flush Syringe 10 Ml) 10 ml IV BID JOEL Sodium Chloride (Sodium Chloride Flush Syringe 10 Ml) 10 ml IV PRN PRN PRN Reason: LINE FLUSH Exam - Physical Exam Narrative exam: General Apperance: The patient sitting in bed no acute distress HEENT: Normocephalic, atraumatic. Pupils equally round and reactive to light, extraocular movement intact, and no sclericterus or JVD or thyromegaly or nodule. Neck supple, no carotid bruit, mucous membranes moist, no exudate or erythema Heart: S1-S2, regular is rhythm Lungs: Clear to auscultation bilaterally, breathing comfortable Abdomen: Positive bowel sounds, soft, nontender, nondistended, no organomegaly Extremities: No edema cyanosis clubbing Skin: Breakdown on forehead, right hip no rash, nodule, warm and dry Neuro:CN 2 -12 intact, motor - call to assess, sensory intact, speech is fluent - Constitutional Vitals: Temp Pulse Resp BP Pulse Ox 98.2 F 114 H 19 139/67 100 08/19/19 18:43 08/19/19 19:15 08/19/19 19:15 08/19/19 19:15 08/19/19 19:15 Results - Labs CBC & Chem 7: 08/19/19 20:48 08/20/19 00:09 Labs: Abnormal lab results 08/19/19 08/19/19 Range/Units 20:48 20:48 WBC 17.2 H (4.5-11.0) K/mm3 RBC 2.50 L (3.65-5.03) M/mm3 Hgb 6.8 L (10.1-14.3) gm/dl Hct 22.3 L (30.3-42.9) % MCH 27 L (28-32) pg RDW 18.6 H (13.2-15.2) % Sodium 131 L (137-145) mmol/L Potassium 2.8 L* D (3.6-5.0) mmol/L Chloride 92.9 L (98-107) mmol/L BUN 64 H (7-17) mg/dL Creatinine 5.2 H (0.7-1.2) mg/dL Glucose 981 H* (65-100) mg/dL Calcium 8.2 L (8.4-10.2) mg/dL ALT < 5 L (7-56) units/L Troponin T 0.249 H* (0.00-0.029) ng/mL Total Protein 4.7 L (6.3-8.2) g/dL Albumin 1.9 L (3.9-5) g/dL Triglycerides 197 H (2-149) mg/dL LDL Cholesterol Direct 34 L (50-130) mg/dL HDL Cholesterol 19 L (40-59) mg/dL Lipase 251 H (13-60) units/L Assessment and Plan Assessment Hyperglycemia secondary to prednisone/ TPN Hypokalemia anemia Failure to thrive Abnormal cardiac enzymes necrotizing pancreatitis ESRD Leukocytosis, steroid induced Hypertension Lupus/skin lesions sacral wond pLAN Admit to medicine Start Lantus, insulin sliding scale Check fingersticks, replete potassium Cardiac enzymes, echo Transfuse blood at dialysis, Consult renal CM for placement, consult rim 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
[2019-08-20 00:18] LABS: Creatine Kinase MB 4.8 ng/mL (0.0-4.0)
[2019-08-20 00:58] LABS: Calcium 8.5 mg/dL (8.4-10.2)
[2019-08-20] MEDS ORDERED: POTASSIUM CHLORIDE 10 MEQ 10 MEQ/100 ML BAG IV ONE (01:30)
[2019-08-20] MEDS: INSULIN LISPRO 100 UNIT/ML SUB-Q SCH ×5 (03:00→21:45)
[2019-08-20] MEDS ORDERED: LABETALOL HCL 300 MG PO SCH (09:00)
[2019-08-20] MEDS ORDERED: NON-FORMULARY EACH (Sevelamer Hcl [Renagel] 800 MG) PO SCH (09:00)
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
[2019-08-20] MEDS ORDERED: SODIUM CHLORIDE 0.9% 100 ML IV PRN (09:17)
[2019-08-20] MEDS ORDERED: MIRTAZAPINE 7.5 MG PO SCH (10:00)
[2019-08-20] MEDS ORDERED: NON-FORMULARY EACH (Gabapentin 300 MG) PO SCH (10:00)
[2019-08-20] MEDS ORDERED: LORazepam 2 MG/ML VIAL IV PRN (10:30)
[2019-08-20] MEDS ORDERED: SODIUM FERRIC GLUCON/SUCRO 125 MG in SODIUM CHLORIDE 0.9% 100 ML IV ONE (10:30)
[2019-08-20 11:10] LABS: Creatine Kinase MB 4.5 ng/mL (0.0-4.0)
[2019-08-20 11:18] LABS: Albumin 1.4 g/dL (3.9-5); BUN/Creatinine Ratio 11; Blood Urea Nitrogen 64 mg/dL (7-17); Calcium 6.8 mg/dL (8.4-10.2); Hemolysis Index 1
[2019-08-20 11:20] LABS: Alanine Aminotransferase < 5 units/L (7-56)
[2019-08-20] MEDS: LOSARTAN 50 MG TAB PO SCH (11:31)
[2019-08-20] MEDS: CYANOCOBALAMIN (VIT B-12) 1000 MCG TAB PO SCH (11:31)
[2019-08-20] MEDS: PANTOPRAZOLE 40 MG TAB PO SCH ×2 (11:32→21:44)
[2019-08-20] MEDS: FOLIC ACID 1 MG TAB PO SCH (11:32)
[2019-08-20] MEDS: levETIRAcetam 500 MG TAB PO SCH ×2 (11:32→21:44)
[2019-08-20] MEDS: HYDROXYCHLOROQUINE 200 MG TAB PO SCH (11:32)
[2019-08-20] MEDS: predniSONE 20 MG TAB PO SCH (11:32)
[2019-08-20] MEDS: MIRTAZAPINE 15 MG TAB PO SCH (11:34)
--- NOTE | 2019-08-20 11:43 | Consultation ---
History of Present Illness - Reason for Consult Consult date: 08/20/19 end stage renal disease, hypokalemia - History of Present Illness The patient is a 29 YO female, who is known to our service, with history significant for Hypertension, Lupus, Seizure disorder, ESRD on hemodialysis (TTS), Anemia who was discharged from the hospital on 08/18/2019 after treatment for necrotizing pancreatitis, sepsis, right labial abscess and encephalopathy who presented to [facility] after the family was unable to care for her. She was discharged home on TPN. Patient denies any N, V, D, abd pain, fever, chills, PORTER, CP, sob or worsening weakness. Labs significant for blood sugar 981, troponin 0.32 and K 2.9. Nephrology was consulted to manage ESRD. She was alst dialyzed 2 days ago Past History Past Medical History: anemia, dialysis, ESRD, hypertension, other (Lupus, Pancreatitis) Medications and Allergies Allergies Allergy/AdvReac Type Severity Reaction Status Date / Time lactose AdvReac Unknown Verified 07/29/19 08:16 Home Medications Medication Instructions Recorded Confirmed Last Taken Type ALBUTEROL NEB's [Proventil 0.083% 2.5 mg IH QID PRN 07/26/19 07/26/19 07/25/19 History NEBS] Labetalol HCl [Labetalol 300mg TAB] 300 mg PO Q12H 07/26/19 07/26/19 07/25/19 History Mirtazapine 7.5 mg PO QDAY 07/26/19 07/26/19 07/25/19 History Pantoprazole [Protonix TAB] 40 mg PO BID 07/26/19 07/26/19 07/25/19 History Sevelamer HCl [Renagel] 800 mg PO BIDWM 07/26/19 07/26/19 07/25/19 History Acetaminophen [Acetaminophen TAB] 650 mg PO Q6H PRN tablet 08/18/19 Unknown Rx Cyanocobalamin (Vitamin B-12) 1,000 mcg PO QDAY #20 08/18/19 Unknown Rx [Vitamin B-12] Epoetin Mitch 20,000 Unit [Procrit] 20,000 unit SUB-Q FAN PRN vial 08/18/19 Unknown Rx Folic Acid [Folvite] 1 mg PO QDAY #30 08/18/19 Unknown Rx Gabapentin 300 mg PO 3XW #60 08/18/19 Unknown Rx Hydroxychloroquine [Plaquenil] 200 mg PO QDAY #30 08/18/19 Unknown Rx Insulin Glargine [Lantus VIAL] 20 units SUB-Q QHS #1 units 08/18/19 Unknown Rx Labetalol [Labetalol 200mg TAB] 300 mg PO BID #60 tablet 08/18/19 Unknown Rx Losartan [Cozaar] 50 mg PO QDAY #30 08/18/19 Unknown Rx Mycophenolate [Cellcept] 500 mg PO QDAY #30 08/18/19 Unknown Rx Pantoprazole [Protonix TAB] 40 mg PO BID #60 tablet 08/18/19 Unknown Rx Sevelamer Carbonate [Renvela] 800 mg PO 0730,1630 #30 tablet 08/18/19 Unknown Rx Total Parenteral Nutrition [TPN 12 ml IV DAILY@2000 ml 08/18/19 Unknown Rx Adult] hydrOXYzine HCL [Atarax] 50 mg PO QDAY #30 08/18/19 Unknown Rx levETIRAcetam [Keppra TAB] 500 mg PO BID #60 tablet 08/18/19 Unknown Rx oxyCODONE /ACETAMINOPHEN [Percocet 1 tab PO Q8H PRN #30 tablet 08/18/19 Unknown Rx 5/325 mg] predniSONE [Deltasone] 20 mg PO QDAY #30 08/18/19 Unknown Rx Active Meds: Active Medications Acetaminophen (Tylenol) 650 mg PO Q4H PRN PRN Reason: Pain MILD(1-3)/Fever >100.5/PORTER Albuterol (Proventil) 2.5 mg IH QID PRN PRN Reason: Wheezing Cyanocobalamin (Vitamin B-12) 1,000 mcg PO QDAY [facility] Last Admin: 08/20/19 11:31 Dose: 1,000 mcg Documented by: Dextrose (D50w (25gm) Syringe) 0 ml IV Q30MIN PRN PRN Reason: Hypoglycemia Epoetin Mitch (Procrit) 20,000 unit SUB-Q FAN PRN PRN Reason: hemodialysis Folic Acid (Folvite) 1 mg PO QDAY [facility] Last Admin: 08/20/19 11:32 Dose: 1 mg Documented by: Gabap[facility]ontin) [facility] Hydroxychloroquine Sulfate (Plaquenil) 200 mg PO QDAY [facility] Last Admin: 08/20/19 11:32 Dose: 200 mg Documented by: Hydroxyzine HCl (Atarax) 50 mg PO QDAY [facility] Sodium Chloride (Nacl 0.9%) 100 mls @ 999 mls/hr IV FAN PRN PRN Reason: Hypotension Insulin Glargine (Lantus) 20 units SUB-Q QHS [facility] Insulin Human Lispro (Humalog) 0 unit SUB-Q ACHS JOEL; Protocol Labetalol HCl (Normodyne) 300 mg PO BID [facility] Last Admin: 08/20/19 11:32 Dose: 300 mg Documented by: Levetiracetam (Keppra) 500 mg PO BID [facility] Last Admin: 08/20/19 11:32 Dose: 500 mg Documented by: Lorazepam (Ativan) 1 mg IV 3XW PRN PRN Reason: before dialysis Losartan Potassium (Cozaar) 50 mg PO QDAY [facility] Last Admin: 08/20/19 11:31 Dose: 50 mg Documented by: Mirtazapine (Remeron) 7.5 mg PO QDAY [facility] Last Admin: 08/20/19 11:34 Dose: 7.5 mg Documented by: Mycophenolate Mofetil (Cellcept) 500 mg PO QDAY [facility] Ondansetron HCl (Zofran) 4 mg IV Q8H PRN PRN Reason: Nausea And Vomiting Oxycodone/Acetaminophen (Percocet 5/325) 1 tab PO Q8H PRN PRN Reason: Pain, Moderate (4-6) Pantoprazole Sodium (Protonix) 40 mg PO BID [facility] Last Admin: 08/20/19 11:32 Dose: 40 mg Documented by: Prednisone (Deltasone) 20 mg PO QDAY [facility] Last Admin: 08/20/19 11:32 Dose: 20 mg Documented by: Sevelamer Carbonate (Renvela) 800 mg PO 0730,1630 [facility] Sodium Chloride (Sodium Chloride Flush Syringe 10 Ml) 10 ml IV BID [facility] Last Admin: 08/20/19 11:34 Dose: 10 ml Documented by: Sodium Chloride (Sodium Chloride Flush Syringe 10 Ml) 10 ml IV PRN PRN PRN Reason: LINE FLUSH Review of Systems Constitutional: weight loss, anorexia, fatigue, weakness, no weight gain, no fever, no chills Breasts: deferred Cardiovascular: high blood pressure, no chest pain, no orthopnea, no edema, no leg edema Respiratory: no cough, no shortness of breath Gastrointestinal: no abdominal pain, no nausea, no vomiting, no diarrhea, no melena Genitourinary Female: no dysuria Rectal: no bleeding Musculoskeletal: muscle weakness, no neck pain, no muscle cramps Integumentary: no rash, no wounds, no jaundice Neurological: weakness, no seizures, no syncope, no convulsions, no aphasia Exam - Vital Signs Vital signs: Vital Signs Pulse Resp Pulse Ox 104 H 14 96 08/19/19 18:22 08/19/19 18:22 08/19/19 18:22 - General Appearance General appearance: well-developed, appears stated age, other (no distress) EENT: ATNC, PERRL, hearing intact, vision intact Neck: Present: neck supple, trachea midline Respiratory: Clear to Ascultation Heart: regular, S1S2, no murmurs Gastrointestinal: Present: normoactive bowel sounds. Absent: tenderness, distended Integumentary: no rash, warm and dry Neurologic: no asterixis, other (oriented to self, person, place, LE weakness noted) Musculoskeletal: Present: other (trace LE edema noted, L arm AVG) Psychiatric: cooperative Results - Lab Results 08/19/19 20:48 08/20/19 10:38 Most recent lab results Calcium 6.8 mg/dL (8.4-10.2) L D 08/20/19 10:38 Phosphorus 3.10 mg/dL (2.5-4.5) 08/20/19 00:09 Magnesium 1.70 mg/dL (1.7-2.3) 08/20/19 00:09 Assessment and Plan 1. ESRD: On maintenance hemodialysis three times a week, TTS schedule. HD today. 2. FEN: Hypkalemia, high K bath with HD. Metabolic acidosis, HD today. Monitor lytes. 3. Anemia: Epogen with HD. 4. Seizures: On Keppra. 5. Metabolic encephalopathy: Mostly resolved. 6. Acute pancreatitis: Continue supportive care. On PPN / TPN. 7. History of lupus: On Cellcept, Plaquenil and Prednisone.
[2019-08-20] MEDS: hydrOXYzine HCL 25 MG TAB PO SCH (11:46)
[2019-08-20] MEDS ORDERED: POTASSIUM CHLORIDE 20 MEQ 20 MEQ/100 ML BAG IV ONE (13:00)
[2019-08-20] MEDS: MYCOPHENOLATE 500 MG TAB PO SCH (13:56)
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
[2019-08-20] MEDS: EPOETIN ALFA 20,000 UNIT/1 ML INJ SUB-Q PRN (16:06)
[2019-08-20] MEDS ORDERED: SEVELAMER CARBONATE 800 MG TAB PO SCH (17:00)
[2019-08-20] MEDS: SEVELAMER CARBONATE 800 MG TAB PO SCH (17:45)
[2019-08-20] MEDS ORDERED: TOTAL PARENTERAL NUTRITION 1,560 ML IV SCH (20:00)
[2019-08-20] MEDS: oxyCODONE /ACETAMINOPHEN 5-325MG TAB PO PRN (21:44)
[2019-08-20] MEDS: INSULIN GLARGINE 100 UNITS/ML SUB-Q SCH (21:54)
[2019-08-21] MEDS: ONDANSETRON 4 MG/2 ML INJ IV PRN ×2 (03:29→09:24)
[2019-08-21] MEDS: INSULIN LISPRO 100 UNIT/ML SUB-Q SCH ×4 (07:30→21:54)
[2019-08-21] MEDS: SEVELAMER CARBONATE 800 MG TAB PO SCH ×2 (08:00→16:00)
[2019-08-21 08:34] LABS: Calcium 8.4 mg/dL (8.4-10.2)
[2019-08-21] MEDS: LOSARTAN 50 MG TAB PO SCH (09:07)
[2019-08-21] MEDS: MIRTAZAPINE 15 MG TAB PO SCH (09:08)
[2019-08-21] MEDS: PANTOPRAZOLE 40 MG TAB PO SCH (09:08)
[2019-08-21] MEDS: CYANOCOBALAMIN (VIT B-12) 1000 MCG TAB PO SCH (09:08)
[2019-08-21] MEDS: FOLIC ACID 1 MG TAB PO SCH (09:08)
[2019-08-21] MEDS: hydrOXYzine HCL 25 MG TAB PO SCH (09:08)
[2019-08-21] MEDS: levETIRAcetam 500 MG TAB PO SCH ×2 (09:09→21:55)
[2019-08-21] MEDS: HYDROXYCHLOROQUINE 200 MG TAB PO SCH (09:09)
[2019-08-21] MEDS: predniSONE 20 MG TAB PO SCH (09:09)
[2019-08-21] MEDS: MYCOPHENOLATE 500 MG TAB PO SCH (09:10)
--- NOTE | 2019-08-21 10:07 | Progress Note ---
Assessment and Plan 29-year-old female with necrotizing pancreatitis that was discharged from the hospital comes back with altered mental status patient states lack of care by the family and other complaints that are not substantiated. Discussion with the hospital is patient has a diabetic on TPN DC the diet her lipase is mildly elevated as per previous record to be treated medically. Patient's abnormal troponin are nonspecific get an echocardiogram for evaluation. Patient has nausea and we'll see if patient can tolerate oral medications. Patient will get an MRI for any acute CVA processes causing her mental status. If not consider psychiatry consult for delirium - Patient Problems (1) Altered mental status Current Visit: Yes Status: Acute Qualifiers: Altered mental status type: unspecified Qualified Code(s): R41.82 - Altered mental status, unspecified (2) End-stage renal disease needing dialysis Current Visit: Yes Status: Chronic (3) Hypoalbuminemia Current Visit: Yes Status: Chronic (4) NSTEMI (non-ST elevated myocardial infarction) Current Visit: Yes Status: Acute (5) On total parenteral nutrition (TPN) Current Visit: Yes Status: Acute (6) Anemia of chronic disease Current Visit: Yes Status: Chronic (7) Acute metabolic encephalopathy Current Visit: No Status: Acute (8) Hyperkalemia Current Visit: No Status: Acute (9) Malnutrition compromising bodily function Current Visit: No Status: Acute (10) Pancreatitis Current Visit: No Status: Acute Qualifiers: Chronicity: acute Acute pancreatitis complication: unspecified (11) Seizure Current Visit: No Status: Acute (12) Hypertension Current Visit: No Status: Chronic (13) Lupus Current Visit: No Status: Chronic Subjective Date of service: 08/21/19 Principal diagnosis: anbl trop Interval history: Patient has vomiting states about the multiple issues Objective Vital Signs Temp Pulse Pulse Resp BP BP Pulse Ox 08/21/19 09:12 94 08/21/19 09:09 94 H 170/117 08/21/19 09:07 94 H 170/117 08/21/19 07:53 98.0 F 94 H 18 170/117 100 08/21/19 04:10 98.2 F 68 18 141/58 98 08/20/19 23:31 98.0 F 101 H 18 129/84 95 08/20/19 22:00 97 H 08/20/19 21:44 97 H 132/72 08/20/19 21:17 112 H 95 10/19/19 19:32 104 H 08/20/19 18:59 98.0 F 97 H 20 132/72 100 08/20/19 17:12 98.0 F 113 H 18 129/74 64 L 08/20/19 16:40 98.0 F 97 H 18 108/58 08/20/19 16:30 96 H 112/62 08/20/19 16:15 96 H 111/62 08/20/19 16:00 92 H 120/62 08/20/19 15:45 93 H 140/77 08/20/19 15:30 97 H 115/56 08/20/19 15:15 96 H 120/59 08/20/19 15:00 95 H 112 H 122/63 95 08/20/19 14:45 98 H 132/64 08/20/19 14:30 98 H 124/69 08/20/19 14:15 98 H 132/69 08/20/19 14:00 97 H 123/71 08/20/19 13:45 98 H 131/74 08/20/19 13:30 100 H 131/74 08/20/19 13:15 98.7 F 98 H 20 137/78 08/20/19 11:32 114 H 138/91 08/20/19 11:31 114 H 138/91 08/20/19 10:12 98 - Physical Examination General: Cachectic, Other HEENT: Positive: PERRL Neck: Positive: neck supple, trachea midline, Other Cardiac: Positive: Tachycardia Lungs: Positive: clear to auscultation Neuro: Positive: Other (confused ) Abdomen: Positive: Unremarkable Skin: Positive: Wound (circular open wounds on right arm and forehead ) Musculoskeletal: Decreased Range of Motion (BLE), other Extremities: Present: upper extr. pulses (2+), lower extr. pulses (2+) - Labs and Meds Cardiac Enzymes 08/20/19 08/20/19 Range/Units 10:38 10:38 AST 15 (5-40) units/L CK-MB (CK-2) 4.5 H (0.0-4.0) ng/mL Comprehensive Metabolic Panel 08/20/19 08/21/19 Range/Units 10:38 07:55 Sodium 141 139 (137-145) mmol/L Potassium 2.9 L* 5.2 H D (3.6-5.0) mmol/L Chloride 106.0 97.6 L (98-107) mmol/L Carbon Dioxide 17 L D 23 (22-30) mmol/L BUN 64 H 52 H (7-17) mg/dL Creatinine 5.6 H 5.0 H (0.7-1.2) mg/dL Glucose 78 287 H (65-100) mg/dL Calcium 6.8 L D 8.4 D (8.4-10.2) mg/dL AST 15 (5-40) units/L ALT < 5 L (7-56) units/L Alkaline Phosphatase 53 (35-129) units/L Total Protein 4.1 L (6.3-8.2) g/dL Albumin 1.4 L (3.9-5) g/dL - Imaging and Cardiology Echo: pending - Telemetry EKG Rhythm: Sinus Tachycardia Chamber hypertrophy or enlargement: left ventricular hypertro
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
[2019-08-21] MEDS: PANTOPRAZOLE 40 MG INJ IV SCH (12:09)
[2019-08-21] MEDS: methylPREDNISolone Sod Succinate 40 MG/1 ML INJ IV SCH (12:09)
[2019-08-21] MEDS ORDERED: PROMETHAZINE 25 MG RECT SUPP PR PRN (12:46)
--- NOTE | 2019-08-21 13:00 | Progress Note ---
Assessment and Plan 1. ESRD: On maintenance hemodialysis three times a week, TTS schedule. S/p HD yesterday. 2. FEN: Hyperkalemia, kayexalate ordered. Low K with PPN / TPN. Metabolic acidosis, s/p HD yesterday. Monitor lytes. 3. Anemia: Epogen with HD. 4. Seizures: On Keppra. 5. Metabolic encephalopathy. 6. Acute pancreatitis: Continue supportive care. On PPN / TPN. 7. History of lupus: On Cellcept, Plaquenil and Solumedrol. 8. Deconditioning. Examination: General appearance: well-developed, appears stated age, no distress HEENT: ATNC, BORA, hearing intact, vision intact Neck: neck supple, trachea midline Respiratory: Clear to Ascultation Heart: regular, S1S2, no murmur Gastrointestinal: soft, normoactive bowel sound, not tender Integumentary: no rash, warm and dry Neurologic: LE weakness noted, slight confusion noted Musculoskeletal: trace LE edema noted Hemodialysis access: L arm AVG Subjective Date of service: 08/21/19 Principal diagnosis: anbl trop Interval history: Patient was seen and examined at the bedside. RN at the bedside Objective - Vital Signs Vital signs: Vital Signs - 12hr 08/21/19 08/21/19 08/21/19 04:10 07:53 09:07 Temperature 98.2 F 98.0 F Pulse Rate 68 94 H 94 H Pulse Rate [ Apical] Pulse Rate [ Left Radial] Pulse Rate [ Right Radial] Respiratory 18 18 Rate Blood Pressure 170/117 170/117 Blood Pressure 141/58 [Right] O2 Sat by Pulse 98 100 Oximetry 08/21/19 08/21/19 08/21/19 09:09 09:12 10:00 Temperature Pulse Rate 94 H 106 H Pulse Rate [ 94 H Apical] Pulse Rate [ 94 H Left Radial] Pulse Rate [ 94 H Right Radial] Respiratory 24 Rate Blood Pressure 170/117 Blood Pressure [Right] O2 Sat by Pulse 94 98 Oximetry 08/21/19 11:54 Temperature 98.0 F Pulse Rate 95 H Pulse Rate [ Apical] Pulse Rate [ Left Radial] Pulse Rate [ Right Radial] Respiratory 18 Rate Blood Pressure 152/100 Blood Pressure [Right] O2 Sat by Pulse 99 Oximetry - Lab 08/19/19 20:48 08/21/19 07:55 Most recent lab results Calcium 8.4 mg/dL (8.4-10.2) D 08/21/19 07:55 Phosphorus 3.90 mg/dL (2.5-4.5) D 08/21/19 07:55 Magnesium 1.70 mg/dL (1.7-2.3) 08/21/19 07:55 Medications & Allergies - Medications Allergies/Adverse Reactions: Allergies lactose Adverse Reaction (Verified 07/29/19 08:16) Unknown Home Medications: Home Medications Medication Instructions Recorded Confirmed Last Taken Type ALBUTEROL NEB's [Proventil 0.083% 2.5 mg IH QID PRN 07/26/19 08/21/19 07/25/19 History NEBS] Labetalol HCl [Labetalol 300mg TAB] 300 mg PO Q12H 07/26/19 08/21/19 07/25/19 History Mirtazapine 7.5 mg PO QDAY 07/26/19 08/21/19 07/25/19 History Pantoprazole [Protonix TAB] 40 mg PO BID 07/26/19 08/21/19 08/21/19 15:56 History Sevelamer HCl [Renagel] 800 mg PO BIDWM 07/26/19 08/21/19 07/25/19 History Acetaminophen [Acetaminophen TAB] 650 mg PO Q6H PRN tablet 08/18/19 08/21/19 Unknown Rx Cyanocobalamin (Vitamin B-12) 1,000 mcg PO QDAY #20 08/18/19 08/21/19 Unknown Rx [Vitamin B-12] Epoetin Mitch 20,000 Unit [Procrit] 20,000 unit SUB-Q FAN PRN vial 08/18/19 08/21/19 Unknown Rx Folic Acid [Folvite] 1 mg PO QDAY #30 08/18/19 08/21/19 Unknown Rx Gabapentin 300 mg PO 3XW #60 08/18/19 08/21/19 08/21/19 15:58 Rx Hydroxychloroquine [Plaquenil] 200 mg PO QDAY #30 08/18/19 08/21/19 Unknown Rx Insulin Glargine [Lantus VIAL] 20 units SUB-Q QHS #1 units 08/18/19 08/21/19 08/21/19 15:57 Rx Labetalol [Labetalol 200mg TAB] 300 mg PO BID #60 tablet 08/18/19 08/21/19 Unknown Rx Losartan [Cozaar] 50 mg PO QDAY #30 08/18/19 08/21/19 Unknown Rx Mycophenolate [Cellcept] 500 mg PO QDAY #30 08/18/19 08/21/19 08/21/19 15:56 Rx Pantoprazole [Protonix TAB] 40 mg PO BID #60 tablet 08/18/19 08/21/19 08/21/19 15:55 Rx Sevelamer Carbonate [Renvela] 800 mg PO 0730,1630 #30 tablet 08/18/19 08/21/19 08/21/19 15:56 Rx Total Parenteral Nutrition [TPN 12 ml IV DAILY@2000 ml 08/18/19 08/21/19 1 15:55 Rx Adult] hydrOXYzine HCL [Atarax] 50 mg PO QDAY #30 08/18/19 08/21/19 Unknown Rx levETIRAcetam [Keppra TAB] 500 mg PO BID #60 tablet 08/18/19 08/21/19 08/21/19 15:54 Rx oxyCODONE /ACETAMINOPHEN [Percocet 1 tab PO Q8H PRN #30 tablet 08/18/19 08/21/19 Unknown Rx 5/325 mg] predniSONE [Deltasone] 20 mg PO QDAY #30 08/18/19 08/21/19 Unknown Rx Active Medications: Generic Name Dose Route Start Last Admin Trade Name Freq PRN Reason Stop Dose Admin Acetaminophen 650 mg 08/19/19 22:44 Tylenol PO Q4H PRN Pain MILD(1-3)/Fever >100.5/PORTER Albuterol 2.5 mg 08/20/19 09:00 Proventil IH QID PRN Wheezing Cyanocobalamin 1,000 mcg 08/20/19 10:00 08/21/19 09:08 Vitamin B-12 PO 1,000 mcg QDAY JOEL Administration Dextrose 0 ml 08/19/19 22:43 D50w (25gm) Syringe IV Q30MIN PRN Hypoglycemia Epoetin Mitch 20,000 unit 08/20/19 09:17 08/20/19 16:06 Procrit SUB-Q 20,000 unit FAN PRN Administration hemodialysis Folic Acid 1 mg 08/20/19 10:00 08/21/19 09:08 Folvite PO 1 mg QDAY JOEL Administration Gabapentin 300 mg 08/22/19 10:00 Neurontin PO MoWeThFr [facility] Hydroxychloroquine Sulfate 200 mg 08/20/19 10:00 08/21/19 09:09 Plaquenil PO 200 mg QDAY JOEL Administration Hydroxyzine HCl 50 mg 08/20/19 10:00 08/21/19 09:08 Atarax PO 50 mg QDAY JOEL Administration Sodium Chloride 100 mls @ 999 mls/hr 08/20/19 09:17 Nacl 0.9% IV FAN PRN Hypotension Amino Acids/Electrolytes/Dextrose 1,560 mls @ 65 mls/hr 08/20/19 20:00 08/20/19 20:25 Tpn Adult IV 08/21/19 19:59 65 mls/hr DAILY@2000 JOEL Administration Protocol Insulin Glargine 20 units 08/20/19 22:00 08/20/19 21:54 Lantus SUB-Q 20 units QHS JOEL Administration Insulin Human Lispro 0 unit 08/20/19 11:30 08/21/19 12:10 Humalog SUB-Q Not Given ACHS [facility] Protocol Labetalol HCl 300 mg 08/20/19 10:00 08/21/19 09:09 Normodyne PO 300 mg BID JOEL Administration Levetiracetam 500 mg 08/20/19 10:00 08/21/19 09:09 Keppra PO 500 mg BID JOEL Administration Lorazepam 1 mg 08/20/19 10:30 Ativan IV 3XW PRN before dialysis Losartan Potassium 50 mg 08/20/19 10:00 08/21/19 09:07 Cozaar PO 50 mg QDAY JOEL Administration Melatonin 5 mg 08/21/19 22:00 Melatonin PO QHS PRN Sleep Methylprednisolone Sodium Succinate 20 mg 08/21/19 12:00 08/21/19 12:09 Solu-Medrol IV 20 mg DAILY JOEL Administration Metoclopramide HCl 10 mg 08/21/19 12:46 Reglan IV Q6H PRN Nausea And Vomiting Mycophenolate Mofetil 500 mg 08/20/19 10:00 08/21/19 09:10 Cellcept PO 500 mg QDAY JOEL Administration Ondansetron HCl 4 mg 08/19/19 22:44 08/21/19 09:24 Zofran IV 4 mg Q8H PRN Administration Nausea And Vomiting Oxycodone/Acetaminophen 1 tab 08/20/19 09:00 08/20/19 21:44 Percocet 5/325 PO 1 tab Q8H PRN Administration Pain, Moderate (4-6) Pantoprazole Sodium 40 mg 08/21/19 12:00 08/21/19 12:09 Protonix IV 40 mg QDAY JOEL Administration Promethazine HCl 25 mg 08/21/19 12:46 Phenergan [place] Q6H PRN Nausea And Vomiting Sevelamer Carbonate 800 mg 08/20/19 16:30 08/21/19 08:00 Renvela PO 800 mg 0730,1630 JOEL Administration Sodium Chloride 10 ml 08/20/19 10:00 08/21/19 09:10 Sodium Chloride Flush Syringe 10 Ml IV 10 ml BID JOEL Administration Sodium Chloride 10 ml 08/19/19 22:44 Sodium Chloride Flush Syringe 10 Ml IV PRN PRN LINE FLUSH
[2019-08-21] MEDS ORDERED: SODIUM POLYSTYRENE 15 GM/60 ML ORAL LIQD PO ONE (14:00)
[2019-08-21] MEDS ORDERED: D5W/0.45% NACL 1,000 ML IV SCH (15:00)
[2019-08-21] MEDS: METOCLOPRAMIDE 10 MG/2 ML INJ IV PRN (15:50)
[2019-08-21] MEDS: oxyCODONE /ACETAMINOPHEN 5-325MG TAB PO PRN (16:04)
[2019-08-21] MEDS ORDERED: TOTAL PARENTERAL NUTRITION 1,560 ML IV SCH (20:00)
[2019-08-21] MEDS: INSULIN GLARGINE 100 UNITS/ML SUB-Q SCH (21:57)
[2019-08-21] MEDS ORDERED: MELATONIN 5 MG TAB PO PRN (22:00)
[2019-08-22 04:41] LABS: Calcium 8.3 mg/dL (8.4-10.2)
[2019-08-22] MEDS: INSULIN LISPRO 100 UNIT/ML SUB-Q SCH ×4 (07:30→22:35)
[2019-08-22] MEDS: oxyCODONE /ACETAMINOPHEN 5-325MG TAB PO PRN ×2 (08:10→16:20)
--- NOTE | 2019-08-22 09:47 | Progress Note ---
Assessment and Plan 1. ESRD: On maintenance hemodialysis three times a week, TTS schedule. 2. FEN: Hyperkalemia, improved. Low K with PPN / TPN. Metabolic acidosis, s/p HD. Monitor lytes. 3. Anemia: Epogen with HD. 4. Seizures: On Keppra. 5. Metabolic encephalopathy. 6. Acute pancreatitis: Continue supportive care. On PPN / TPN. 7. History of lupus: On Cellcept, Plaquenil and Solumedrol. 8. Deconditioning. Examination: General appearance: well-developed, appears stated age, no distress HEENT: ATNC, BROA, hearing intact, vision intact Neck: neck supple, trachea midline Respiratory: Clear to Ascultation Heart: regular, S1S2, no murmur Gastrointestinal: soft, normoactive bowel sound, not tender Integumentary: no rash, warm and dry Neurologic: LE weakness noted, slight confusion noted Musculoskeletal: trace LE edema noted Hemodialysis access: L arm AVG Subjective Date of service: 08/22/19 Principal diagnosis: anbl trop Interval history: Patient was seen and examined at the bedside. RN at the bedside. Objective - Vital Signs Vital signs: Vital Signs - 12hr 08/21/19 08/21/19 08/22/19 21:55 23:30 03:01 Temperature 97.9 F 98.2 F Pulse Rate 112 H 100 H 103 H Respiratory 18 16 Rate Blood Pressure 142/99 154/112 152/101 O2 Sat by Pulse 95 100 Oximetry 08/22/19 08:10 Temperature 97.9 F Pulse Rate 94 H Respiratory 18 Rate Blood Pressure 133/87 O2 Sat by Pulse 96 Oximetry - Lab 08/22/19 14:45 08/22/19 04:00 Most recent lab results Calcium 8.3 mg/dL (8.4-10.2) L 08/22/19 04:00 Phosphorus 4.40 mg/dL (2.5-4.5) 08/22/19 04:00 Magnesium 1.80 mg/dL (1.7-2.3) 08/22/19 04:00 Medications & Allergies - Medications Allergies/Adverse Reactions: Allergies lactose Adverse Reaction (Verified 07/29/19 08:16) Unknown Home Medications: Home Medications Medication Instructions Recorded Confirmed Last Taken Type ALBUTEROL NEB's [Proventil 0.083% 2.5 mg IH QID PRN 07/26/19 08/21/19 07/25/19 History NEBS] Labetalol HCl [Labetalol 300mg TAB] 300 mg PO Q12H 07/26/19 08/21/19 07/25/19 History Mirtazapine 7.5 mg PO QDAY 07/26/19 08/21/19 07/25/19 History Pantoprazole [Protonix TAB] 40 mg PO BID 07/26/19 08/21/19 08/21/19 15:56 History Sevelamer HCl [Renagel] 800 mg PO BIDWM 07/26/19 08/21/19 07/25/19 History Acetaminophen [Acetaminophen TAB] 650 mg PO Q6H PRN tablet 08/18/19 08/21/19 Unknown Rx Cyanocobalamin (Vitamin B-12) 1,000 mcg PO QDAY #20 08/18/19 08/21/19 Unknown Rx [Vitamin B-12] Epoetin Mitch 20,000 Unit [Procrit] 20,000 unit SUB-Q FAN PRN vial 08/18/19 08/21/19 Unknown Rx Folic Acid [Folvite] 1 mg PO QDAY #30 08/18/19 08/21/19 Unknown Rx Gabapentin 300 mg PO 3XW #60 08/18/19 08/21/19 08/21/19 15:58 Rx Hydroxychloroquine [Plaquenil] 200 mg PO QDAY #30 08/18/19 08/21/19 Unknown Rx Insulin Glargine [Lantus VIAL] 20 units SUB-Q QHS #1 units 08/18/19 08/21/19 08/21/19 15:57 Rx Labetalol [Labetalol 200mg TAB] 300 mg PO BID #60 tablet 08/18/19 08/21/19 Unknown Rx Losartan [Cozaar] 50 mg PO QDAY #30 08/18/19 08/21/19 Unknown Rx Mycophenolate [Cellcept] 500 mg PO QDAY #30 08/18/19 08/21/19 08/21/19 15:56 Rx Pantoprazole [Protonix TAB] 40 mg PO BID #60 tablet 08/18/19 08/21/19 08/21/19 15:55 Rx Sevelamer Carbonate [Renvela] 800 mg PO 0730,1630 #30 tablet 08/18/19 08/21/19 08/21/19 15:56 Rx Total Parenteral Nutrition [TPN 12 ml IV DAILY@2000 ml 08/18/19 08/21/19 08/21/19 15:55 Rx Adult] hydrOXYzine HCL [Atarax] 50 mg PO QDAY #30 08/18/19 08/21/19 Unknown Rx levETIRAcetam [Keppra TAB] 500 mg PO BID #60 tablet 08/18/19 08/21/19 08/21/19 15:54 Rx oxyCODONE /ACETAMINOPHEN [Percocet 1 tab PO Q8H PRN #30 tablet 08/18/19 08/21/19 Unknown Rx 5/325 mg] predniSONE [Deltasone] 20 mg PO QDAY #30 08/18/19 08/21/19 Unknown Rx Active Medications: Generic Name Dose Route Start Last Admin Trade Name Freq PRN Reason Stop Dose Admin Acetaminophen 650 mg 08/19/19 22:44 Tylenol PO Q4H PRN Pain MILD(1-3)/Fever >100.5/PORTER Albuterol 2.5 mg 08/20/19 09:00 Proventil IH QID PRN Wheezing Cyanocobalamin 1,000 mcg 08/20/19 10:00 08/21/19 09:08 Vitamin B-12 PO 1,000 mcg QDAY JOEL Administration Dextrose 0 ml 08/19/19 22:43 D50w (25gm) Syringe IV Q30MIN PRN Hypoglycemia Epoetin Mitch 20,000 unit 08/20/19 09:17 08/20/19 16:06 Procrit SUB-Q 20,000 unit FAN PRN Administration hemodialysis Folic Acid 1 mg 08/20/19 10:00 08/21/19 09:08 Folvite PO 1 mg QDAY JOEL Administration Gabapentin 300 mg 08/22/19 10:00 Neurontin PO MoWeThFr JOEL Hydralazine HCl 10 mg 08/21/19 13:00 Apresoline IV Q4H PRN BP >160/100 Hydroxychloroquine Sulfate 200 mg 08/20/19 10:00 08/21/19 09:09 Plaquenil PO 200 mg QDAY JOEL Administration Hydroxyzine HCl 50 mg 08/20/19 10:00 08/21/19 09:08 Atarax PO 50 mg QDAY JOEL Administration Sodium Chloride 100 mls @ 999 mls/hr 08/20/19 09:17 Nacl 0.9% IV FAN PRN Hypotension Amino Acids/Electrolytes/Dextrose 1,560 mls @ 65 mls/hr 08/21/19 20:00 08/21/19 20:39 Tpn Adult IV 08/22/19 19:59 65 mls/hr DAILY@2000 JOEL Administration Protocol Insulin Glargine 20 units 08/20/19 22:00 08/21/19 21:57 Lantus SUB-Q 20 units QHS JOEL Administration Insulin Human Lispro 0 unit 08/20/19 11:30 08/21/19 21:54 Humalog SUB-Q 4 unit ACHS JOEL Administration Protocol Labetalol HCl 300 mg 08/20/19 10:00 08/21/19 21:55 Normodyne PO 300 mg BID JOEL Administration Levetiracetam 500 mg 08/20/19 10:00 08/21/19 21:55 Keppra PO 500 mg BID JOEL Administration Lorazepam 1 mg 08/20/19 10:30 Ativan IV 3XW PRN before dialysis Losartan Potassium 50 mg 08/20/19 10:00 08/21/19 09:07 Cozaar PO 50 mg QDAY JOEL Administration Melatonin 5 mg 08/21/19 22:00 Melatonin PO QHS PRN Sleep Methylprednisolone Sodium Succinate 20 mg 08/21/19 12:00 08/21/19 12:09 Solu-Medrol IV 20 mg DAILY JOEL Administration Metoclopramide HCl 10 mg 08/21/19 12:46 08/21/19 15:50 Reglan IV 10 mg Q6H PRN Administration Nausea And Vomiting Mycophenolate Mofetil 500 mg 08/20/19 10:00 08/21/19 09:10 Cellcept PO 500 mg QDAY JOEL Administration Ondansetron HCl 4 mg 08/21/19 13:00 Zofran IV Q4H PRN Nausea And Vomiting Oxycodone/Acetaminophen 1 tab 08/20/19 09:00 08/21/19 16:04 Percocet 5/325 PO 1 tab Q8H PRN Administration Pain, Moderate (4-6) Pantoprazole Sodium 40 mg 08/21/19 12:00 08/21/19 12:09 Protonix IV 40 mg QDAY JOEL Administration Promethazine HCl 25 mg 08/21/19 12:46 Phenergan [place] Q6H PRN Nausea And Vomiting Sevelamer Carbonate 800 mg 08/20/19 16:30 08/21/19 16:00 Renvela PO 800 mg 0730,1630 JOEL Administration Sodium Chloride 10 ml 08/20/19 10:00 08/21/19 22:30 Sodium Chloride Flush Syringe 10 Ml IV 10 ml BID JOEL Administration Sodium Chloride 10 ml 08/19/19 22:44 Sodium Chloride Flush Syringe 10 Ml IV PRN PRN LINE FLUSH
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
[2019-08-22] MEDS: SEVELAMER CARBONATE 800 MG TAB PO SCH ×2 (11:31→18:07)
--- NOTE | 2019-08-22 11:51 | Magnetic Resonance Report ---
MRI BRAIN WITHOUT CONTRAST, MRA HEAD WITHOUT CONTRAST INDICATION / CLINICAL INFORMATION: Altered mental status and confusion. History of lupus. TECHNIQUE: Multiplanar, multi sequential MRI images of the brain. Routine MRA of the head is performed. 3-D/MIP reformats postprocessed. COMPARISON: Previous brain MRI on 08/01/[address] on 07/30/2019. FINDINGS: MR BRAIN: BRAIN / INTRACRANIAL CONTENTS: No acute ischemia, acute hemorrhage, mass effect, midline shift, or hy drocephalus. No chronic infarct or significant atrophy. No significant demyelinating changes. CRANIOCERVICAL JUNCTION: No significant abnormality. VASCULAR FLOW-VOIDS: No significant abnormality. ORBITS: No significant abnormality of visualized orbits. SINUSES / MASTOIDS: No significant abnormality of visualized sinuses and mastoid air cells. ADDITIONAL FINDINGS: None. MRA HEAD: Intracranial vertebral arteries: No significant abnormality. Basilar artery: No significant abnormality. Posterior cerebral arteries: No significant abnormality. Intracranial internal carotid arteries: No significant abnormality. 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 Middle cerebral arteries: No significant abnormality. Additional findings: None. IMPRESSION: 1. No acute intracranial abnormality or adverse change from prior exams. 2. No significant stenosis or large vessel occlusion of the cervical or intracranial arteries. Signer Name: Gurmeet Cook MD Signed: 08/22/2019 11:46 AM Workstation Name: [id number]
--- NOTE | 2019-08-22 14:12 | Progress Note ---
Assessment and Plan Currently stable cardiac status. Patient's abnormal troponin are nonspecific. tte reviewed - EF 55-60%, mild LVH, abnormal diastolic function, mild MR, mild to Mod TR, RVSP 41mmHg, minimal pericardial effusion. Brain MRI and head MRA with NAF. Nothing further to add from cardiac perspective at this time. Will sign off. The patient has been seen in conjunction with Dr. PRASANTH Wyatt who agrees with the assessment and plan of care. - Patient Problems (1) Altered mental status Current Visit: Yes Status: Acute Qualifiers: Altered mental status type: unspecified Qualified Code(s): R41.82 - Altered mental status, unspecified (2) End-stage renal disease needing dialysis Current Visit: Yes Status: Chronic (3) Hypoalbuminemia Current Visit: Yes Status: Chronic (4) NSTEMI (non-ST elevated myocardial infarction) Current Visit: Yes Status: Acute Plan to address problem: Type 2 (5) On total parenteral nutrition (TPN) Current Visit: Yes Status: Acute (6) Anemia of chronic disease Current Visit: Yes Status: Chronic (7) Acute metabolic encephalopathy Current Visit: No Status: Acute (8) Hyperkalemia Current Visit: No Status: Acute (9) Malnutrition compromising bodily function Current Visit: No Status: Acute (10) Pancreatitis Current Visit: No Status: Acute Qualifiers: Chronicity: acute Acute pancreatitis complication: unspecified (11) Seizure Current Visit: No Status: Acute (12) Hypertension Current Visit: No Status: Chronic (13) Lupus Current Visit: No Status: Chronic Subjective Date of service: 08/22/19 Principal diagnosis: anbl trop Interval history: pt resting in bed, no apparent distress, remains confused. Objective Last Vital Signs Temp 97.9 F 08/22/19 08:10 Pulse 94 H 08/22/19 10:00 Resp 18 08/22/19 08:10 BP 133/87 08/22/19 08:10 Pulse Ox 96 08/22/19 08:10 - Physical Examination General: Cachectic, Other HEENT: Positive: PERRL Neck: Positive: neck supple, trachea midline, Other Cardiac: Positive: Reg Rate and Rhythm, S1/S2 Lungs: Positive: Decreased Breath Sounds Neuro: Positive: Other (confused ) Abdomen: Positive: Unremarkable Skin: Positive: Wound (circular open wounds on right arm and forehead ) Musculoskeletal: Decreased Range of Motion (BLE), other Extremities: Present: upper extr. pulses (2+), lower extr. pulses (2+) - Labs and Meds Comprehensive Metabolic Panel 08/22/19 Range/Units 04:00 Sodium 138 (137-145) mmol/L Potassium 4.6 (3.6-5.0) mmol/L Chloride 96.4 L (98-107) mmol/L Carbon Dioxide 24 (22-30) mmol/L BUN 65 H (7-17) mg/dL Creatinine 6.1 H (0.7-1.2) mg/dL Glucose 119 H (65-100) mg/dL Calcium 8.3 L (8.4-10.2) mg/dL - Imaging and Cardiology Echo: pending Chamber hypertrophy or enlargement: left ventricular hypertro
[2019-08-22] MEDS: PANTOPRAZOLE 40 MG INJ IV SCH (14:26)
[2019-08-22] MEDS: methylPREDNISolone Sod Succinate 40 MG/1 ML INJ IV SCH (14:26)
[2019-08-22] MEDS: HYDROXYCHLOROQUINE 200 MG TAB PO SCH (14:29)
[2019-08-22] MEDS: hydrOXYzine HCL 25 MG TAB PO SCH (14:29)
[2019-08-22] MEDS: ONDANSETRON 4 MG/2 ML INJ IV PRN ×2 (14:40→22:14)
[2019-08-22] MEDS: MYCOPHENOLATE 500 MG TAB PO SCH (14:40)
[2019-08-22 15:13] LABS: Hematocrit 22.3 % (30.3-42.9)
[2019-08-22] MEDS: METOCLOPRAMIDE 10 MG/2 ML INJ IV PRN (18:01)
[2019-08-22] MEDS: LOSARTAN 50 MG TAB PO SCH (18:04)
[2019-08-22] MEDS: levETIRAcetam 500 MG TAB PO SCH ×2 (18:05→22:14)
[2019-08-22] MEDS: GABAPENTIN 300 MG CAP PO SCH (18:07)
[2019-08-22] MEDS: CYANOCOBALAMIN (VIT B-12) 1000 MCG TAB PO SCH (18:07)
[2019-08-22] MEDS: FOLIC ACID 1 MG TAB PO SCH (18:07)
[2019-08-22] MEDS ORDERED: TOTAL PARENTERAL NUTRITION 1,560 ML IV SCH (20:00)
[2019-08-22] MEDS ORDERED: FAT EMULSIONS 20% 250 ML IV SCH (20:00)
[2019-08-22] MEDS: INSULIN GLARGINE 100 UNITS/ML SUB-Q SCH (22:14)
[2019-08-22] MEDS: diphenhydrAMINE 50 MG/ML VIAL IV PRN (22:32)
[2019-08-23 00:34] LABS: Hepatitis B Surface Antigen Non-Reactive (Negative); Hepatitis C Virus Antibody Non-Reactive (NonReactive)
[2019-08-23] MEDS: levETIRAcetam 500 MG TAB PO SCH ×2 (05:59→15:01)
[2019-08-23] MEDS ORDERED: SODIUM CHLORIDE 0.9% 100 ML IV PRN (07:05)
[2019-08-23] MEDS: hydrALAZINE 20 MG/1 ML INJ IV PRN (08:24)
[2019-08-23] MEDS: ONDANSETRON 4 MG/2 ML INJ IV PRN ×2 (08:25→15:47)
[2019-08-23] MEDS ORDERED: SODIUM CHLORIDE 0.9% 500 ML 500 ML IV ONE (10:00)
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
[2019-08-23] MEDS: hydrOXYzine HCL 25 MG TAB PO SCH (15:00)
[2019-08-23] MEDS: MYCOPHENOLATE 500 MG TAB PO SCH (15:00)
[2019-08-23] MEDS: LOSARTAN 50 MG TAB PO SCH (15:01)
[2019-08-23] MEDS: FOLIC ACID 1 MG TAB PO SCH (15:01)
[2019-08-23] MEDS: HYDROXYCHLOROQUINE 200 MG TAB PO SCH (15:01)
[2019-08-23] MEDS: SEVELAMER CARBONATE 800 MG TAB PO SCH ×2 (15:30→18:22)
[2019-08-23] MEDS: INSULIN LISPRO 100 UNIT/ML SUB-Q SCH ×2 (15:30→18:22)
[2019-08-23] MEDS: PANTOPRAZOLE 40 MG INJ IV SCH (15:31)
[2019-08-23] MEDS: methylPREDNISolone Sod Succinate 40 MG/1 ML INJ IV SCH (15:32)
[2019-08-23] MEDS: CYANOCOBALAMIN (VIT B-12) 1000 MCG TAB PO SCH (15:32)
--- NOTE | 2019-08-23 19:56 | Progress Note ---
Assessment and Plan 1. ESRD: On maintenance hemodialysis three times a week, TTS schedule. Pt refused HD today. Plan to do HD tomorrow. 2. FEN: Hyperkalemia, improved. Metabolic acidosis, improved. Monitor lytes. 3. Anemia: Epogen with HD. 4. Seizures: On Keppra. 5. Metabolic encephalopathy. 6. Acute pancreatitis: Continue supportive care. On PPN / TPN. 7. History of lupus: On Cellcept, Plaquenil and Solumedrol. 8. Deconditioning. Examination: General appearance: well-developed, appears stated age, no distress HEENT: ATNC, BORA, hearing intact, vision intact Neck: neck supple, trachea midline Respiratory: Clear to Ascultation Heart: regular, S1S2, no murmur Gastrointestinal: soft, normoactive bowel sound, not tender Integumentary: no rash, warm and dry Neurologic: LE weakness noted, slight confusion noted, tangential speech, appears paranoid Musculoskeletal: trace LE edema noted Hemodialysis access: L arm AVG Subjective Date of service: 08/23/19 Principal diagnosis: anbl trop Interval history: Patient was seen and examined at the bedside. Sister at the bedside. Patient refused dialysis today. Objective - Vital Signs Vital signs: Vital Signs - 12hr 08/23/19 08/23/19 08/23/19 08:08 11:09 14:48 Pulse Rate 103 H Blood Pressure 158/116 153/111 O2 Sat by Pulse 97 99 Oximetry - Lab 08/22/19 14:45 08/22/19 04:00 Most recent lab results Calcium 8.3 mg/dL (8.4-10.2) L 08/22/19 04:00 Phosphorus 4.40 mg/dL (2.5-4.5) 08/22/19 04:00 Magnesium 1.80 mg/dL (1.7-2.3) 08/22/19 04:00 Medications & Allergies - Medications Allergies/Adverse Reactions: Allergies lactose Adverse Reaction (Verified 07/29/19 08:16) Unknown Home Medications: Home Medications Medication Instructions Recorded Confirmed Last Taken Type ALBUTEROL NEB's [Proventil 0.083% 2.5 mg IH QID PRN 07/26/19 08/21/19 07/25/19 History NEBS] Labetalol HCl [Labetalol 300mg TAB] 300 mg PO Q12H 07/26/19 08/21/19 07/25/19 History Mirtazapine 7.5 mg PO QDAY 07/26/19 08/21/19 07/25/19 History Pantoprazole [Protonix TAB] 40 mg PO BID 07/26/19 08/21/19 08/21/19 15:56 History Sevelamer HCl [Renagel] 800 mg PO BIDWM 07/26/19 08/21/19 07/25/19 History Acetaminophen [Acetaminophen TAB] 650 mg PO Q6H PRN tablet 08/18/19 08/21/19 Unknown Rx Cyanocobalamin (Vitamin B-12) 1,000 mcg PO QDAY #20 08/18/19 08/21/19 Unknown Rx [Vitamin B-12] Epoetin Mitch 20,000 Unit [Procrit] 20,000 unit SUB-Q FAN PRN vial 08/18/19 08/21/19 Unknown Rx Folic Acid [Folvite] 1 mg PO QDAY #30 08/18/19 08/21/19 Unknown Rx Gabapentin 300 mg PO 3XW #60 08/18/19 08/21/19 08/21/19 15:58 Rx Hydroxychloroquine [Plaquenil] 200 mg PO QDAY #30 08/18/19 08/21/19 Unknown Rx Insulin Glargine [Lantus VIAL] 20 units SUB-Q QHS #1 units 08/18/19 08/21/19 08/21/19 15:57 Rx Labetalol [Labetalol 200mg TAB] 300 mg PO BID #60 tablet 08/18/19 08/21/19 Unknown Rx Losartan [Cozaar] 50 mg PO QDAY #30 08/18/19 08/21/19 Unknown Rx Mycophenolate [Cellcept] 500 mg PO QDAY #30 08/18/19 08/21/19 08/21/19 15:56 Rx Pantoprazole [Protonix TAB] 40 mg PO BID #60 tablet 08/18/19 08/21/19 08/21/19 15:55 Rx Sevelamer Carbonate [Renvela] 800 mg PO 0730,1630 #30 tablet 08/18/19 08/21/19 08/21/19 15:56 Rx Total Parenteral Nutrition [TPN 12 ml IV DAILY@2000 ml 08/18/19 08/21/19 08/21/19 15:55 Rx Adult] hydrOXYzine HCL [Atarax] 50 mg PO QDAY #30 08/18/19 08/21/19 Unknown Rx levETIRAcetam [Keppra TAB] 500 mg PO BID #60 tablet 08/18/19 08/21/19 08/21/19 15:54 Rx oxyCODONE /ACETAMINOPHEN [Percocet 1 tab PO Q8H PRN #30 tablet 08/18/19 08/21/19 Unknown Rx 5/325 mg] predniSONE [Deltasone] 20 mg PO QDAY #30 08/18/19 08/21/19 Unknown Rx Active Medications: Generic Name Dose Route Start Last Admin Trade Name Freq PRN Reason Stop Dose Admin Acetaminophen 650 mg 08/19/19 22:44 Tylenol PO Q4H PRN Pain MILD(1-3)/Fever >100.5/PORTER Albuterol 2.5 mg 08/20/19 09:00 Proventil IH QID PRN Wheezing Cyanocobalamin 1,000 mcg 08/20/19 10:00 08/23/19 15:32 Vitamin B-12 PO Not Given QDAY JOEL Dextrose 0 ml 08/19/19 22:43 D50w (25gm) Syringe IV Q30MIN PRN Hypoglycemia Diphenhydramine HCl 25 mg 08/22/19 22:22 08/22/19 22:32 Benadryl IV 25 mg Q6H PRN Administration Itching Epoetin Mitch 20,000 unit 08/20/19 09:17 08/20/19 16:06 Procrit SUB-Q 20,000 unit FAN PRN Administration hemodialysis Folic Acid 1 mg 08/20/19 10:00 08/23/19 15:01 Folvite PO 1 mg QDAY JOEL Administration Gabapentin 300 mg 08/22/19 10:00 08/22/19 18:07 Neurontin PO Not Given MoWeThFr JOEL Hydralazine HCl 10 mg 08/21/19 13:00 Apresoline IV Q4H PRN BP >160/100 Hydroxychloroquine Sulfate 200 mg 08/20/19 10:00 08/23/19 15:01 Plaquenil PO 200 mg QDAY JOEL Administration Hydroxyzine HCl 50 mg 08/20/19 10:00 08/23/19 15:00 Atarax PO 50 mg QDAY JOEL Administration Amino Acids/Electrolytes/Dextrose 1,560 mls @ 65 mls/hr 08/22/19 20:00 08/22/19 22:33 Tpn Adult IV 08/23/19 19:59 65 mls/hr DAILY@1999 JOEL Administration Protocol Sodium Chloride 100 mls @ 999 mls/hr 08/23/19 07:05 Nacl 0.9% IV FAN PRN Hypotension Amino Acids/Electrolytes/Dextrose 1,560 mls @ 0 mls/hr 08/23/19 20:00 Tpn Adult IV 08/24/19 19:59 DAILY@1999 [facility] Protocol As Directed Insulin Glargine 20 units 08/20/19 22:00 08/22/19 22:14 Lantus SUB-Q 20 units QHS JOEL Administration Insulin Human Lispro 0 unit 08/20/19 11:30 08/23/19 18:22 Humalog SUB-Q Not Given ACHS [facility] Protocol Labetalol HCl 300 mg 08/20/19 10:00 08/23/19 15:01 Normodyne PO 300 mg BID JOEL Administration Levetiracetam 500 mg 08/20/19 10:00 08/23/19 15:01 Keppra PO 500 mg BID JOEL Administration Lorazepam 1 mg 08/20/19 10:30 Ativan IV 3XW PRN before dialysis Losartan Potassium 50 mg 08/20/19 10:00 08/23/19 15:01 Cozaar PO 50 mg QDAY JOEL Administration Melatonin 5 mg 08/21/19 22:00 Melatonin PO QHS PRN Sleep Methylprednisolone Sodium Succinate 20 mg 08/21/19 12:00 08/23/19 15:32 Solu-Medrol IV Not Given DAILY JOEL Metoclopramide HCl 10 mg 08/21/19 12:46 08/22/19 18:01 Reglan IV 10 mg Q6H PRN Administration Nausea And Vomiting Mycophenolate Mofetil 500 mg 08/20/19 10:00 08/23/19 15:00 Cellcept PO 500 mg QDAY JOEL Administration Ondansetron HCl 4 mg 08/21/19 13:00 08/23/19 15:47 Zofran IV 4 mg Q4H PRN Administration Nausea And Vomiting Oxycodone/Acetaminophen 1 tab 08/20/19 09:00 08/22/19 16:20 Percocet 5/325 PO 1 tab Q8H PRN Administration Pain, Moderate (4-6) Pantoprazole Sodium 40 mg 08/21/19 12:00 08/23/19 15:31 Protonix IV Not Given QDAY JOEL Promethazine HCl 25 mg 08/21/19 12:46 Phenergan [place] Q6H PRN Nausea And Vomiting Sevelamer Carbonate 800 mg 08/20/19 16:30 08/23/19 18:22 Renvela PO Not Given 0730,1630 JOEL Sodium Chloride 10 ml 08/20/19 10:00 08/23/19 15:32 Sodium Chloride Flush Syringe 10 Ml IV Not Given BID JOEL Sodium Chloride 10 ml 08/19/19 22:44 08/22/19 22:32 Sodium Chloride Flush Syringe 10 Ml IV 10 ml PRN PRN Administration LINE FLUSH
[2019-08-23] MEDS ORDERED: TOTAL PARENTERAL NUTRITION 1,560 ML IV SCH (20:00)
[2019-08-24] MEDS: INSULIN LISPRO 100 UNIT/ML SUB-Q SCH ×5 (02:30→23:24)
[2019-08-24] MEDS: INSULIN GLARGINE 100 UNITS/ML SUB-Q SCH ×2 (02:31→23:25)
[2019-08-24] MEDS: levETIRAcetam 500 MG TAB PO SCH ×4 (02:31→21:53)
[2019-08-24] MEDS: oxyCODONE /ACETAMINOPHEN 5-325MG TAB PO PRN (04:47)
[2019-08-24] MEDS: METOCLOPRAMIDE 10 MG/2 ML INJ IV PRN (04:47)
--- NOTE | 2019-08-24 05:04 | Progress Note ---
Subjective - Reason for Consult Consult date: 08/24/19 Reason for consult: Psychiatry Follow-up - Chief Complaint Chief complaint: Late entry for 08/23/2019 "The staff is trying to kill me" 29 y.o. AA female who presented to the ER for AMS. Today the patient was somewhat irritable and paranoid during the assessment. She believe that the staff is trying to kill her, but can't explain why. She was able to answer some questions logically, but needed redirection intermittently during the interview. Per collateral information from her sister, Mrs Sun Veliz at [phone], she stated that the patient has a hx of self injury (scratching herself/banging her head against the wall) when she didn't get her way when she was younger. She stated that the patient was never treated for her behavior in the past. Mrs Sun Veliz denies any other mental health dx when asked. Per the MAR, the patient have been refusing some of her medication. She was asked about her refusal of her medication, her answer wasn't logical. She denies SI/HI's and AVH's. Mental Status Exam - Vital signs Last Vital Signs Temp 98.0 F 08/23/19 07:46 Pulse 103 H 08/23/19 08:08 Resp 18 08/23/19 07:46 BP 153/111 08/23/19 14:48 Pulse Ox 99 08/23/19 11:09 - Exam Narrative exam: MSE: Appearance: in hospital attire Behavior: regular eye contact Speech: regular rate and tone Mood: somewhat irritable Affect: congruent to mood Thought Process: circumstantial Thought Content: denies SI/HI's and AVH's, delusional, paranoid Motor Activity: lying in bed Cognition: A/O x 2, with some confusion Insight: variable Judgment: variable Assessment and Plan Impression. Delirium. Today the patient was somewhat irritable and paranoid during the assessment. Cr 6.1, trending upward. DDx: Unspecified Personality DO Recommendation/Plan: Start Seroquel 100 mg PO HS for psychosis and continue Melatonin 5 mg PO HS PRN for sleep. Recommend Delirium precautions below: 1. Frequently reorient patient and involve him/her in their care (simple explanations of procedures, tests, medications). 2. Lights on and shades open during daytime hours. 3. Write date and goals of care in a visible place. 4. Try to avoid unnecessary interruptions to sleep during nighttime hours. 5. Obtain glasses, hearing aids from home if patient uses these at baseline. 6. Avoid medications that may exacerbate delirium (especially narcotics, benzodiazepines, barbiturates, ambien, lunesta, and medications with excessive anticholinergic properties). The patient has Percocet (PRN) and Atarax (scheduled) in her MAR? Recommend Atarax PRN and a NSAID for pain. Staffed with Dr Luis Rivera.
[2019-08-24] MEDS: methylPREDNISolone Sod Succinate 40 MG/1 ML INJ IV SCH (09:19)
[2019-08-24] MEDS: SEVELAMER CARBONATE 800 MG TAB PO SCH ×2 (09:19→16:30)
[2019-08-24] MEDS: PANTOPRAZOLE 40 MG INJ IV SCH (09:19)
[2019-08-24] MEDS: LOSARTAN 50 MG TAB PO SCH (09:20)
[2019-08-24] MEDS: MYCOPHENOLATE 500 MG TAB PO SCH (09:20)
[2019-08-24] MEDS: CYANOCOBALAMIN (VIT B-12) 1000 MCG TAB PO SCH (09:20)
[2019-08-24 09:21] LABS: Hematocrit 20.5 % (30.3-42.9); Hemoglobin 6.7 gm/dl (10.1-14.3); Mean Corpuscular HGB Conc 33 % (30-34); Mean Corpuscular Volume 83 fl (79-97); Platelet Count 252 K/mm3 (140-440); Red Blood Count 2.47 M/mm3 (3.65-5.03); Red Cell Distribution Width 18.1 % (13.2-15.2)
[2019-08-24] MEDS: FOLIC ACID 1 MG TAB PO SCH (09:21)
[2019-08-24] MEDS: HYDROXYCHLOROQUINE 200 MG TAB PO SCH (09:21)
[2019-08-24] MEDS: hydrOXYzine HCL 25 MG TAB PO SCH (09:21)
[2019-08-24 09:27] LABS: Calcium 8.6 mg/dL (8.4-10.2)
[2019-08-24] MEDS: GABAPENTIN 300 MG CAP PO SCH (10:25)
--- NOTE | 2019-08-24 11:57 | Progress Note ---
Subjective - Reason for Consult Consult date: 08/24/19 Reason for consult: Psychiatric Follow-up Evaluation - Chief Complaint Chief complaint: Patient is at dialysis. Provider spoke with assigned RN. Patient is a 29 y.o. AA female who presented to the ER for AMS. Provider unable to assess patient. Currently, patient is at dialysis. Mental Status Exam - Vital signs Last Vital Signs Temp 98.7 F 08/24/19 04:39 Pulse 95 H 08/24/19 09:21 Resp 18 08/24/19 04:39 BP 127/99 08/24/19 09:20 Pulse Ox 96 08/24/19 04:39 - Exam Narrative exam: Provider unable to assess patient. Patient is at dialysis. Assessment and Plan Impression. Delirium. Patient is not in room. Patient is in dialysis. DDx: Unspecified Personality DO Recommendation/Plan: Continue Seroquel 100 mg PO HS for psychosis and continue Melatonin 5 mg PO HS PRN for sleep. Recommend Delirium precautions below: 1. Frequently reorient patient and involve him/her in their care (simple explanations of procedures, tests, medications). 2. Lights on and shades open during daytime hours. 3. Write date and goals of care in a visible place. 4. Try to avoid unnecessary interruptions to sleep during nighttime hours. 5. Obtain glasses, hearing aids from home if patient uses these at baseline. 6. Avoid medications that may exacerbate delirium (especially narcotics, benzodiazepines, barbiturates, ambien, lunesta, and medications with excessive anticholinergic properties). The patient has Percocet (PRN) and Atarax (scheduled) in her MAR? Recommend Atarax PRN and a NSAID for pain. Will staff with Dr. Luis Rivera.
[2019-08-24 13:17] LABS: Anisocytosis 1+; Basophils % (Manual) 0 % (0.0-1.8); Eosinophils % (Manual) 0 % (0.0-4.3); Macrocytosis Few; Poikilocytosis Few; Total Cells Counted 100
[2019-08-24 13:18] LABS: Hypochromasia Few; Platelet Estimate Consistent w Auto; Target Cells Few
[2019-08-24] MEDS ORDERED: SODIUM CHLORIDE*PRIMING MACHINE ONLY FOR DIALYSIS MC ONE (13:33)
[2019-08-24] MEDS: EPOETIN ALFA 20,000 UNIT/1 ML INJ SUB-Q PRN (13:35)
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
--- NOTE | 2019-08-24 17:58 | Progress Note ---
Assessment and Plan 1. ESRD: On maintenance hemodialysis three times a week, TTS schedule. Patient refused HD yesterday. S/p HD today. 2. FEN: Hyperkalemia, HD today. Metabolic acidosis, improved. Monitor lytes. 3. Anemia: Epogen with HD. 4. Seizures: On Keppra. 5. Metabolic encephalopathy. 6. Acute pancreatitis: Continue supportive care. On PPN / TPN. 7. History of lupus: On Cellcept, Plaquenil and Solumedrol. 8. Deconditioning. Examination: General appearance: well-developed, appears stated age, no distress HEENT: ATNC, BORA, hearing intact, vision intact Neck: neck supple, trachea midline Respiratory: Clear to Ascultation Heart: regular, S1S2, no murmur Gastrointestinal: soft, normoactive bowel sound, not tender Integumentary: no rash, warm and dry Neurologic: LE weakness noted, slight confusion noted, tangential speech, appears paranoid Musculoskeletal: trace LE edema noted Hemodialysis access: L arm AVG Subjective Date of service: 08/24/19 Principal diagnosis: anbl trop Interval history: Patient was seen and examined at the bedside. Sitter at the bedside. Objective - Vital Signs Vital signs: Vital Signs - 12hr 08/24/19 08/24/19 08/24/19 09:20 09:21 10:00 Temperature Pulse Rate 95 H 95 H Respiratory 20 Rate Blood Pressure 127/99 O2 Sat by Pulse Oximetry [ Anterior Bilateral Throughout] 08/24/19 08/24/19 08/24/19 10:49 11:00 11:15 Temperature 98.3 F Pulse Rate 100 H 105 H 102 H Respiratory 16 Rate Blood Pressure 130/85 124/78 130/82 O2 Sat by Pulse 96 Oximetry [ Anterior Bilateral Throughout] 08/24/19 08/24/19 08/24/19 11:30 11:45 12:00 Temperature Pulse Rate 101 H 94 H 95 H Respiratory Rate Blood Pressure 142/85 141/86 133/89 O2 Sat by Pulse Oximetry [ Anterior Bilateral Throughout] 08/24/19 08/24/19 08/24/19 12:15 12:30 12:45 Temperature Pulse Rate 97 H 98 H 98 H Respiratory Rate Blood Pressure 130/77 126/81 125/86 O2 Sat by Pulse Oximetry [ Anterior Bilateral Throughout] 08/24/19 08/24/19 08/24/19 13:00 13:15 13:30 Temperature Pulse Rate 99 H 97 H 94 H Respiratory Rate Blood Pressure 125/86 123/88 125/80 O2 Sat by Pulse Oximetry [ Anterior Bilateral Throughout] 08/24/19 14:15 Temperature 98.7 F Pulse Rate 99 H Respiratory 16 Rate Blood Pressure 122/75 O2 Sat by Pulse 97 Oximetry [ Anterior Bilateral Throughout] - Lab 08/24/19 07:42 08/24/19 07:42 Most recent lab results Calcium 8.6 mg/dL (8.4-10.2) 08/24/19 07:42 Phosphorus 7.40 mg/dL (2.5-4.5) H 08/24/19 07:42 Magnesium 1.90 mg/dL (1.7-2.3) 08/24/19 07:42 Medications & Allergies - Medications Allergies/Adverse Reactions: Allergies lactose Adverse Reaction (Verified 07/29/19 08:16) Unknown Home Medications: Home Medications Medication Instructions Recorded Confirmed Last Taken Type ALBUTEROL NEB's [Proventil 0.083% 2.5 mg IH QID PRN 07/26/19 08/21/19 07/25/19 History NEBS] Labetalol HCl [Labetalol 300mg TAB] 300 mg PO Q12H 07/26/19 08/21/19 07/25/19 History Mirtazapine 7.5 mg PO QDAY 07/26/19 08/21/19 07/25/19 History Pantoprazole [Protonix TAB] 40 mg PO BID 07/26/19 08/21/19 08/21/19 15:56 History Sevelamer HCl [Renagel] 800 mg PO BIDWM 07/26/19 08/21/19 07/25/19 History Acetaminophen [Acetaminophen TAB] 650 mg PO Q6H PRN tablet 08/18/19 08/21/19 Unknown Rx Cyanocobalamin (Vitamin B-12) 1,000 mcg PO QDAY #20 08/18/19 08/21/19 Unknown Rx [Vitamin B-12] Epoetin Mitch 20,000 Unit [Procrit] 20,000 unit SUB-Q FAN PRN vial 08/18/19 08/21/19 Unknown Rx Folic Acid [Folvite] 1 mg PO QDAY #30 08/18/19 08/21/19 Unknown Rx Gabapentin 300 mg PO 3XW #60 08/18/19 08/21/19 08/21/19 15:58 Rx Hydroxychloroquine [Plaquenil] 200 mg PO QDAY #30 08/18/19 08/21/19 Unknown Rx Insulin Glargine [Lantus VIAL] 20 units SUB-Q QHS #1 units 08/18/19 08/21/19 08/21/19 15:57 Rx Labetalol [Labetalol 200mg TAB] 300 mg PO BID #60 tablet 08/18/19 08/21/19 Unknown Rx Losartan [Cozaar] 50 mg PO QDAY #30 08/18/19 08/21/19 Unknown Rx Mycophenolate [Cellcept] 500 mg PO QDAY #30 08/18/19 08/21/19 08/21/19 15:56 Rx Pantoprazole [Protonix TAB] 40 mg PO BID #60 tablet 08/18/19 08/21/19 08/21/19 15:55 Rx Sevelamer Carbonate [Renvela] 800 mg PO 0730,1630 #30 tablet 08/18/19 08/21/19 08/21/19 15:56 Rx Total Parenteral Nutrition [TPN 12 ml IV DAILY@2000 ml 08/18/19 08/21/19 08/21/19 15:55 Rx Adult] hydrOXYzine HCL [Atarax] 50 mg PO QDAY #30 08/18/19 08/21/19 Unknown Rx levETIRAcetam [Keppra TAB] 500 mg PO BID #60 tablet 08/18/19 08/21/19 08/21/19 15:54 Rx oxyCODONE /ACETAMINOPHEN [Percocet 1 tab PO Q8H PRN #30 tablet 08/18/19 08/21/19 Unknown Rx 5/325 mg] predniSONE [Deltasone] 20 mg PO QDAY #30 08/18/19 08/21/19 Unknown Rx Active Medications: Generic Name Dose Route Start Last Admin Trade Name Freq PRN Reason Stop Dose Admin Acetaminophen 650 mg 08/19/19 22:44 Tylenol PO Q4H PRN Pain MILD(1-3)/Fever >100.5/PORTER Albuterol 2.5 mg 08/20/19 09:00 Proventil IH QID PRN Wheezing Cyanocobalamin 1,000 mcg 08/20/19 10:00 08/24/19 09:20 Vitamin B-12 PO 1,000 mcg QDAY JOEL Administration Dextrose 0 ml 08/19/19 22:43 D50w (25gm) Syringe IV Q30MIN PRN Hypoglycemia Diphenhydramine HCl 25 mg 08/22/19 22:22 08/22/19 22:32 Benadryl IV 25 mg Q6H PRN Administration Itching Epoetin Mitch 20,000 unit 08/20/19 09:17 08/24/19 13:35 Procrit SUB-Q 20,000 unit FAN PRN Administration hemodialysis Folic Acid 1 mg 08/20/19 10:00 08/24/19 09:21 Folvite PO 1 mg QDAY JOEL Administration Gabapentin 300 mg 08/22/19 10:00 08/24/19 10:25 Neurontin PO 300 mg MoWeThFr JOEL Administration Hydralazine HCl 10 mg 08/21/19 13:00 Apresoline IV Q4H PRN BP >160/100 Hydroxychloroquine Sulfate 200 mg 08/20/19 10:00 08/24/19 09:21 Plaquenil PO 200 mg QDAY JOEL Administration Hydroxyzine HCl 50 mg 08/20/19 10:00 08/24/19 09:21 Atarax PO 50 mg QDAY JOEL Administration Sodium Chloride 100 mls @ 999 mls/hr 08/23/19 07:05 Nacl 0.9% IV FAN PRN Hypotension Amino Acids/Electrolytes/Dextrose 1,560 mls @ 0 mls/hr 08/23/19 20:00 08/23/19 21:46 Tpn Adult IV 08/24/19 19:59 60 mls/hr DAILY@1999 [facility] Administration Protocol As Directed Amino Acids/Electrolytes/Dextrose 1,560 mls @ 0 mls/hr 08/24/19 20:00 Tpn Adult IV 08/25/19 12:01 DAILY@1999 [facility] Protocol As Directed Fat Emulsion Intravenous 250 mls @ 21 mls/hr 08/24/19 20:00 Intralipid 20% IV 08/25/19 08:00 DAILY@1999 [facility] Insulin Glargine 20 units 08/20/19 22:00 08/24/19 02:31 Lantus SUB-Q Not Given QHS [facility] Insulin Human Lispro 0 unit 08/20/19 11:30 08/24/19 08:32 Humalog SUB-Q Not Given ACHS [facility] Protocol Labetalol HCl 300 mg 08/20/19 10:00 08/24/19 09:21 Normodyne PO 300 mg BID JOEL Administration Levetiracetam 500 mg 08/20/19 10:00 08/24/19 09:21 Keppra PO 500 mg BID JOEL Administration Lorazepam 1 mg 08/20/19 10:30 08/24/19 10:24 Ativan IV 1 mg 3XW PRN Administration before dialysis Losartan Potassium 50 mg 08/20/19 10:00 08/24/19 09:20 Cozaar PO 50 mg QDAY JOEL Administration Melatonin 5 mg 08/21/19 22:00 Melatonin PO QHS PRN Sleep Methylprednisolone Sodium Succinate 20 mg 08/21/19 12:00 08/24/19 09:19 Solu-Medrol IV 20 mg DAILY JOEL Administration Metoclopramide HCl 10 mg 08/21/19 12:46 08/24/19 04:47 Reglan IV 10 mg Q6H PRN Administration Nausea And Vomiting Mycophenolate Mofetil 500 mg 08/20/19 10:00 08/24/19 09:20 Cellcept PO 500 mg QDAY JOEL Administration Ondansetron HCl 4 mg 08/21/19 13:00 08/23/19 15:47 Zofran IV 4 mg Q4H PRN Administration Nausea And Vomiting Oxycodone/Acetaminophen 1 tab 08/20/19 09:00 08/24/19 04:47 Percocet 5/325 PO 1 tab Q8H PRN Administration Pain, Moderate (4-6) Pantoprazole Sodium 40 mg 08/21/19 12:00 08/24/19 09:19 Protonix IV 40 mg QDAY JOEL Administration Promethazine HCl 25 mg 08/21/19 12:46 Phenergan [place] Q6H PRN Nausea And Vomiting Quetiapine Fumarate 100 mg 08/24/19 22:00 Seroquel PO HS JOEL Sevelamer Carbonate 800 mg 08/20/19 16:30 08/24/19 09:19 Renvela PO 800 mg 0730,1630 JOEL Administration Sodium Chloride 10 ml 08/20/19 10:00 08/24/19 09:21 Sodium Chloride Flush Syringe 10 Ml IV 10 ml BID JOEL Administration Sodium Chloride 10 ml 08/19/19 22:44 08/22/19 22:32 Sodium Chloride Flush Syringe 10 Ml IV 10 ml PRN PRN Administration LINE FLUSH
[2019-08-24] MEDS ORDERED: TOTAL PARENTERAL NUTRITION 1,560 ML IV SCH (20:00)
[2019-08-24] MEDS ORDERED: FAT EMULSIONS 20% 250 ML IV SCH (20:00)
[2019-08-24] MEDS ORDERED: QUEtiapine 100 MG TAB PO SCH (22:00)
[2019-08-25 06:24] LABS: Hematocrit 20.4 % (30.3-42.9); Hemoglobin 6.6 gm/dl (10.1-14.3); Mean Corpuscular HGB Conc 32 % (30-34); Mean Corpuscular Volume 83 fl (79-97); Platelet Count 253 K/mm3 (140-440); Red Blood Count 2.45 M/mm3 (3.65-5.03); Red Cell Distribution Width 18.6 % (13.2-15.2)
[2019-08-25 06:51] LABS: Calcium 8.5 mg/dL (8.4-10.2)
[2019-08-25] MEDS: INSULIN LISPRO 100 UNIT/ML SUB-Q SCH ×4 (07:07→23:24)
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
--- NOTE | 2019-08-25 10:08 | Progress Note ---
Assessment and Plan 1. ESRD: On maintenance hemodialysis three times a week, TTS schedule. S/p HD yesterday. 2. FEN: Hyperkalemia, s/p HD. Metabolic acidosis, improved. Monitor lytes. 3. Anemia: Epogen with HD. PRBC today. 4. Seizures: On Keppra. 5. Metabolic encephalopathy. 6. Acute pancreatitis: Continue supportive care. On PPN / TPN. 7. History of lupus: On Cellcept, Plaquenil and Solumedrol. 8. Psychosis. 9. Deconditioning. Examination: General appearance: well-developed, appears stated age, no distress HEENT: ATNC, BORA, hearing intact, vision intact Neck: neck supple, trachea midline Respiratory: Clear to Ascultation Heart: regular, S1S2, no murmur Gastrointestinal: soft, normoactive bowel sound, not tender Integumentary: no rash, warm and dry Neurologic: LE weakness noted, slight confusion noted, paranoid Musculoskeletal: trace LE edema noted Hemodialysis access: L arm AVG Subjective Date of service: 08/25/19 Principal diagnosis: anbl trop Interval history: Patient was seen and examined at the bedside. Nursing aid at the bedside. Objective - Vital Signs Vital signs: Vital Signs - 12hr 08/25/19 05:05 Temperature 98.7 F Pulse Rate 127 H Respiratory 20 Rate Blood Pressure 140/95 O2 Sat by Pulse 96 Oximetry - Lab 08/25/19 05:00 08/25/19 05:00 Most recent lab results Calcium 8.5 mg/dL (8.4-10.2) 08/25/19 05:00 Phosphorus 3.90 mg/dL (2.5-4.5) D 08/25/19 05:00 Magnesium 1.70 mg/dL (1.7-2.3) 08/25/19 05:00 Medications & Allergies - Medications Allergies/Adverse Reactions: Allergies lactose Adverse Reaction (Verified 07/29/19 08:16) Unknown Home Medications: Home Medications Medication Instructions Recorded Confirmed Last Taken Type ALBUTEROL NEB's [Proventil 0.083% 2.5 mg IH QID PRN 07/26/19 08/21/19 07/25/19 History NEBS] Labetalol HCl [Labetalol 300mg TAB] 300 mg PO Q12H 07/26/19 08/21/19 07/25/19 History Mirtazapine 7.5 mg PO QDAY 07/26/19 08/21/19 07/25/19 History Pantoprazole [Protonix TAB] 40 mg PO BID 07/26/19 08/21/19 08/21/19 15:56 History Sevelamer HCl [Renagel] 800 mg PO BIDWM 07/26/19 08/21/19 07/25/19 History Acetaminophen [Acetaminophen TAB] 650 mg PO Q6H PRN tablet 08/18/19 08/21/19 Unknown Rx Cyanocobalamin (Vitamin B-12) 1,000 mcg PO QDAY #20 08/18/19 08/21/19 Unknown Rx [Vitamin B-12] Epoetin Mitch 20,000 Unit [Procrit] 20,000 unit SUB-Q FAN PRN vial 08/18/19 08/21/19 Unknown Rx Folic Acid [Folvite] 1 mg PO QDAY #30 08/18/19 08/21/19 Unknown Rx Gabapentin 300 mg PO 3XW #60 08/18/19 08/21/19 08/21/19 15:58 Rx Hydroxychloroquine [Plaquenil] 200 mg PO QDAY #30 08/18/19 08/21/19 Unknown Rx Insulin Glargine [Lantus VIAL] 20 units SUB-Q QHS #1 units 08/18/19 08/21/19 08/21/19 15:57 Rx Labetalol [Labetalol 200mg TAB] 300 mg PO BID #60 tablet 08/18/19 08/21/19 Unknown Rx Losartan [Cozaar] 50 mg PO QDAY #30 08/18/19 08/21/19 Unknown Rx Mycophenolate [Cellcept] 500 mg PO QDAY #30 08/18/19 08/21/19 08/21/19 15:56 Rx Pantoprazole [Protonix TAB] 40 mg PO BID #60 tablet 08/18/19 08/21/19 08/21/19 15:55 Rx Sevelamer Carbonate [Renvela] 800 mg PO 0730,1630 #30 tablet 08/18/19 08/21/19 08/21/19 15:56 Rx Total Parenteral Nutrition [TPN 12 ml IV DAILY@2000 ml 08/18/19 08/21/19 08/21/19 15:55 Rx Adult] hydrOXYzine HCL [Atarax] 50 mg PO QDAY #30 08/18/19 08/21/19 Unknown Rx levETIRAcetam [Keppra TAB] 500 mg PO BID #60 tablet 08/18/19 08/21/19 08/21/19 15:54 Rx oxyCODONE /ACETAMINOPHEN [Percocet 1 tab PO Q8H PRN #30 tablet 08/18/19 08/21/19 Unknown Rx 5/325 mg] predniSONE [Deltasone] 20 mg PO QDAY #30 08/18/19 08/21/19 Unknown Rx Active Medications: Generic Name Dose Route Start Last Admin Trade Name Freq PRN Reason Stop Dose Admin Acetaminophen 650 mg 08/19/19 22:44 Tylenol PO Q4H PRN Pain MILD(1-3)/Fever >100.5/PORTER Albuterol 2.5 mg 08/20/19 09:00 Proventil IH QID PRN Wheezing Cyanocobalamin 1,000 mcg 08/20/19 10:00 08/24/19 09:20 Vitamin B-12 PO 1,000 mcg QDAY JOEL Administration Dextrose 0 ml 08/19/19 22:43 D50w (25gm) Syringe IV Q30MIN PRN Hypoglycemia Diphenhydramine HCl 25 mg 08/22/19 22:22 08/22/19 22:32 Benadryl IV 25 mg Q6H PRN Administration Itching Epoetin Mitch 20,000 unit 08/20/19 09:17 08/24/19 13:35 Procrit SUB-Q 20,000 unit FAN PRN Administration hemodialysis Folic Acid 1 mg 08/20/19 10:00 08/24/19 09:21 Folvite PO 1 mg QDAY JOEL Administration Gabapentin 300 mg 08/22/19 10:00 08/24/19 10:25 Neurontin PO 300 mg MoWeThFr JOEL Administration Hydralazine HCl 10 mg 08/21/19 13:00 Apresoline IV Q4H PRN BP >160/100 Hydroxychloroquine Sulfate 200 mg 08/20/19 10:00 08/24/19 09:21 Plaquenil PO 200 mg QDAY JOEL Administration Hydroxyzine HCl 50 mg 08/20/19 10:00 08/24/19 09:21 Atarax PO 50 mg QDAY JOEL Administration Sodium Chloride 100 mls @ 999 mls/hr 08/23/19 07:05 Nacl 0.9% IV FAN PRN Hypotension Amino Acids/Electrolytes/Dextrose 1,560 mls @ 0 mls/hr 08/24/19 20:00 08/24/19 21:25 Tpn Adult IV 08/25/19 12:01 105 mls/hr DAILY@2000 JOEL Administration Protocol As Directed Insulin Glargine 20 units 08/20/19 22:00 08/24/19 23:25 Lantus SUB-Q Not Given [facility]HS [facility] Insulin Human Lispro 0 unit 08/20/19 11:30 08/24/19 23:24 Humalog SUB-Q Not Given [facility] Protocol Labetalol HCl 300 mg 08/20/19 10:00 08/24/19 21:53 Normodyne PO Not Given BID [facility] Levetiracetam 500 mg 08/20/19 10:00 08/24/19 21:53 Keppra PO Not Given BID [facility] Lorazepam 1 mg 08/20/19 10:30 08/24/19 10:24 Ativan IV 1 mg 3XW PRN Administration before dialysis Losartan Potassium 50 mg 08/20/19 10:00 08/24/19 09:20 Cozaar PO 50 mg QDAY [facility] Administration Melatonin 5 mg 08/21/19 22:00 Melatonin PO QHS PRN Sleep Methylprednisolone Sodium Succinate 20 mg 08/21/19 12:00 08/24/19 09:19 Solu-Medrol IV 20 mg DAILY JOEL Administration Metoclopramide HCl 10 mg 08/21/19 12:46 08/24/19 04:47 Reglan IV 10 mg Q6H PRN Administration Nausea And Vomiting Mycophenolate Mofetil 500 mg 08/20/19 10:00 08/24/19 09:20 Cellcept PO 500 mg QDAY JOEL Administration Ondansetron HCl 4 mg 08/21/19 13:00 08/23/19 15:47 Zofran IV 4 mg Q4H PRN Administration Nausea And Vomiting Oxycodone/Acetaminophen 1 tab 08/20/19 09:00 08/24/19 04:47 Percocet 5/325 PO 1 tab Q8H PRN Administration Pain, Moderate (4-6) Pantoprazole Sodium 40 mg 08/21/19 12:00 08/24/19 09:19 Protonix IV 40 mg QDAY JOEL Administration Promethazine HCl 25 mg 08/21/19 12:46 Phenergan [place] Q6H PRN Nausea And Vomiting Quetiapine Fumarate 100 mg 08/24/19 22:00 08/24/19 21:47 Seroquel PO 100 mg HS JOEL Administration Sevelamer Carbonate 800 mg 08/20/19 16:30 08/24/19 16:30 Renvela PO Not Given 0730,1630 JOEL Sodium Chloride 10 ml 08/20/19 10:00 08/24/19 21:54 Sodium Chloride Flush Syringe 10 Ml IV 10 ml BID JOEL Administration Sodium Chloride 10 ml 08/19/19 22:44 08/22/19 22:32 Sodium Chloride Flush Syringe 10 Ml IV 10 ml PRN PRN Administration LINE FLUSH
--- NOTE | 2019-08-25 10:50 | Progress Note ---
Subjective - Reason for Consult Consult date: 08/25/19 Reason for consult: Psychiatry Follow=up - Chief Complaint Chief complaint: 'It's not right" 29 y.o. AA female who presented to the ER for AMS. Today the patient is still paranoid during the assessment. She continue to believe that the staff is trying to harm her. Her reason for the her belief was not logical. She stated that she didn't sleep well last night. The patient wasn't irritable or aggressive throughout the assessment. She denies SI/HI's and AVH's. Mental Status Exam - Vital signs Last Vital Signs Temp 98.7 F 08/25/19 05:05 Pulse 127 H 08/25/19 05:05 Resp 20 08/25/19 05:05 BP 140/95 08/25/19 05:05 Pulse Ox 96 08/25/19 05:05 - Exam Narrative exam: MSE: Appearance: in hospital attire Behavior: regular eye contact Speech: regular rate and tone Mood: "okay" Affect: congruent to mood Thought Process: circumstantial Thought Content: denies SI/HI's and AVH's, still delusional, paranoid Motor Activity: lying in bed Cognition: A/O x 2, with confusion Insight: limited Judgment: variable Assessment and Plan Impression. Delirium. Today the patient is still paranoid during the assessment. Cr 5.3, trending down. DDx: Unspecified Personality DO Recommendation/Plan: Start Zyprexa 5 mg PO HS for psychosis and Melatonin 5 mg PO HS for sleep. Recommend no narcotics at this time. Recommend Delirium precautions below: 1. Frequently reorient patient and involve him/her in their care (simple explanations of procedures, tests, medications). 2. Lights on and shades open during daytime hours. 3. Write date and goals of care in a visible place. 4. Try to avoid unnecessary interruptions to sleep during nighttime hours. 5. Obtain glasses, hearing aids from home if patient uses these at baseline. 6. Avoid medications that may exacerbate delirium (especially narcotics, benzodiazepines, barbiturates, ambien, lunesta, and medications with excessive anticholinergic properties). The patient has Percocet (PRN) and Atarax (scheduled) in her MAR? Recommend Atarax PRN and a NSAID for pain. Staffed with Dr Luis Rivera.
[2019-08-25] MEDS: SEVELAMER CARBONATE 800 MG TAB PO SCH ×2 (11:09→19:43)
[2019-08-25 11:36] LABS: Total Cells Counted 100
[2019-08-25 11:41] LABS: Basophils % (Manual) 0 % (0.0-1.8); Eosinophils % (Manual) 0 % (0.0-4.3)
[2019-08-25 11:42] LABS: Anisocytosis 1+; Macrocytosis Few; Poikilocytosis Few
[2019-08-25 11:43] LABS: Hypochromasia Few; Smudge Cells Few; Tear Drop Cells Few
[2019-08-25 11:44] LABS: Platelet Estimate Consistent w Auto
[2019-08-25] MEDS: GABAPENTIN 300 MG CAP PO SCH (11:58)
[2019-08-25] MEDS: HYDROXYCHLOROQUINE 200 MG TAB PO SCH (11:58)
[2019-08-25] MEDS: levETIRAcetam 500 MG TAB PO SCH ×2 (11:59→23:17)
[2019-08-25] MEDS: CYANOCOBALAMIN (VIT B-12) 1000 MCG TAB PO SCH (11:59)
[2019-08-25] MEDS: methylPREDNISolone Sod Succinate 40 MG/1 ML INJ IV SCH (11:59)
[2019-08-25] MEDS: PANTOPRAZOLE 40 MG INJ IV SCH (11:59)
[2019-08-25] MEDS: FOLIC ACID 1 MG TAB PO SCH (12:00)
[2019-08-25] MEDS: hydrOXYzine HCL 25 MG TAB PO SCH (12:00)
[2019-08-25] MEDS: LOSARTAN 50 MG TAB PO SCH (12:00)
[2019-08-25] MEDS: MYCOPHENOLATE 500 MG TAB PO SCH (12:00)
[2019-08-25] MEDS ORDERED: TOTAL PARENTERAL NUTRITION 1,560 ML IV SCH (20:00)
[2019-08-25] MEDS: ONDANSETRON 4 MG/2 ML INJ IV PRN (23:19)
[2019-08-25] MEDS: INSULIN GLARGINE 100 UNITS/ML SUB-Q SCH (23:24)
[2019-08-25] MEDS: MELATONIN 5 MG TAB PO SCH (23:25)
[2019-08-26] MEDS: diphenhydrAMINE 50 MG/ML VIAL IV PRN (03:36)
[2019-08-26] MEDS: METOCLOPRAMIDE 10 MG/2 ML INJ IV PRN (03:36)
[2019-08-26] MEDS: INSULIN LISPRO 100 UNIT/ML SUB-Q SCH ×3 (07:30→16:30)
[2019-08-26] MEDS: SEVELAMER CARBONATE 800 MG TAB PO SCH ×2 (08:09→18:27)
[2019-08-26] MEDS: hydrOXYzine HCL 25 MG TAB PO SCH ×2 (09:07→09:24)
[2019-08-26] MEDS: CYANOCOBALAMIN (VIT B-12) 1000 MCG TAB PO SCH ×2 (09:07→09:27)
[2019-08-26] MEDS: methylPREDNISolone Sod Succinate 40 MG/1 ML INJ IV SCH (09:08)
[2019-08-26] MEDS: HYDROXYCHLOROQUINE 200 MG TAB PO SCH ×2 (09:08→09:25)
[2019-08-26] MEDS: levETIRAcetam 500 MG TAB PO SCH (09:08)
[2019-08-26] MEDS: PANTOPRAZOLE 40 MG TAB PO SCH ×2 (09:08→09:25)
[2019-08-26] MEDS: LOSARTAN 50 MG TAB PO SCH ×2 (09:09→09:25)
[2019-08-26] MEDS: MYCOPHENOLATE 500 MG TAB PO SCH ×2 (09:10→09:24)
[2019-08-26] MEDS: FOLIC ACID 1 MG TAB PO SCH ×2 (09:11→09:25)
[2019-08-26] MEDS: ONDANSETRON 4 MG/2 ML INJ IV PRN (09:20)
[2019-08-26] MEDS: GABAPENTIN 300 MG CAP PO SCH (09:25)
--- NOTE | 2019-08-26 10:51 | Progress Note ---
Assessment and Plan 1. ESRD: On maintenance hemodialysis three times a week, TTS schedule. Last dialyzed on 08/24. Hold hD today due to tachycardia. HD tomorrow. 2. FEN: Hyperkalemia, improved. Metabolic acidosis, improved. Monitor lytes. 3. Anemia: Epogen with HD. S/p PRBC. 4. Seizures: On Keppra. 5. Metabolic encephalopathy. 6. Acute pancreatitis: Continue supportive care. On PPN / TPN. 7. History of lupus: On Cellcept, Plaquenil and Solumedrol. 8. Psychosis. 9. Deconditioning. Examination: General appearance: well-developed, appears stated age, no distress HEENT: ATNC, BORA Neck: neck supple, trachea midline Respiratory: Clear to Ascultation Heart: regular, S1S2, no murmur, tachy Gastrointestinal: soft, normoactive bowel sound, not tender Integumentary: no rash, warm and dry Neurologic: stuporous, opens eyes Musculoskeletal: trace LE edema noted Hemodialysis access: L arm AVG Subjective Date of service: 08/26/19 Principal diagnosis: anbl trop Interval history: Patient was seen and examined at the bedside. RN at the bedside. Code med was called due to focal seizure. Received Ativan. Objective - Vital Signs Vital signs: Vital Signs - 12hr 08/25/19 08/25/19 08/26/19 23:20 23:22 05:51 Temperature 98.3 F 99.5 F Pulse Rate 125 H 126 H Respiratory 20 20 Rate Blood Pressure 149/91 149/91 158/99 O2 Sat by Pulse 100 97 Oximetry 08/26/19 09:08 Temperature Pulse Rate 120 H Respiratory Rate Blood Pressure 150/100 O2 Sat by Pulse Oximetry - Lab 08/26/19 12:33 08/26/19 12:33 Most recent lab results Calcium 8.5 mg/dL (8.4-10.2) 08/25/19 05:00 Phosphorus 3.90 mg/dL (2.5-4.5) D 08/25/19 05:00 Magnesium 1.70 mg/dL (1.7-2.3) 08/25/19 05:00 Medications & Allergies - Medications Allergies/Adverse Reactions: Allergies lactose Adverse Reaction (Verified 07/29/19 08:16) Unknown Home Medications: Home Medications Medication Instructions Recorded Confirmed Last Taken Type ALBUTEROL NEB's [Proventil 0.083% 2.5 mg IH QID PRN 07/26/19 08/21/19 07/25/19 History NEBS] Labetalol HCl [Labetalol 300mg TAB] 300 mg PO Q12H 07/26/19 08/21/19 07/25/19 History Mirtazapine 7.5 mg PO QDAY 07/26/19 08/21/19 07/25/19 History Pantoprazole [Protonix TAB] 40 mg PO BID 07/26/19 08/21/19 08/21/19 15:56 History Sevelamer HCl [Renagel] 800 mg PO BIDWM 07/26/19 08/21/19 07/25/19 History Acetaminophen [Acetaminophen TAB] 650 mg PO Q6H PRN tablet 08/18/19 08/21/19 Unknown Rx Cyanocobalamin (Vitamin B-12) 1,000 mcg PO QDAY #20 08/18/19 08/21/19 Unknown Rx [Vitamin B-12] Epoetin Mitch 20,000 Unit [Procrit] 20,000 unit SUB-Q FAN PRN vial 08/18/19 08/21/19 Unknown Rx Folic Acid [Folvite] 1 mg PO QDAY #30 08/18/19 08/21/19 Unknown Rx Gabapentin 300 mg PO 3XW #60 08/18/19 08/21/19 08/21/19 15:58 Rx Hydroxychloroquine [Plaquenil] 200 mg PO QDAY #30 08/18/19 08/21/19 Unknown Rx Insulin Glargine [Lantus VIAL] 20 units SUB-Q QHS #1 units 08/18/19 08/21/19 08/21/19 15:57 Rx Labetalol [Labetalol 200mg TAB] 300 mg PO BID #60 tablet 08/18/19 08/21/19 Unknown Rx Losartan [Cozaar] 50 mg PO QDAY #30 08/18/19 08/21/19 Unknown Rx Mycophenolate [Cellcept] 500 mg PO QDAY #30 08/18/19 08/21/19 08/21/19 15:56 Rx Pantoprazole [Protonix TAB] 40 mg PO BID #60 tablet 08/18/19 08/21/19 08/21/19 15:55 Rx Sevelamer Carbonate [Renvela] 800 mg PO 0730,1630 #30 tablet 08/18/19 08/21/19 08/21/19 15:56 Rx Total Parenteral Nutrition [TPN 12 ml IV DAILY@2000 ml 08/18/19 08/21/19 08/21/19 15:55 Rx Adult] hydrOXYzine HCL [Atarax] 50 mg PO QDAY #30 08/18/19 08/21/19 Unknown Rx levETIRAcetam [Keppra TAB] 500 mg PO BID #60 tablet 08/18/19 08/21/19 08/21/19 15:54 Rx oxyCODONE /ACETAMINOPHEN [Percocet 1 tab PO Q8H PRN #30 tablet 08/18/19 08/21/19 Unknown Rx 5/325 mg] predniSONE [Deltasone] 20 mg PO QDAY #30 08/18/19 08/21/19 Unknown Rx Active Medications: Generic Name Dose Route Start Last Admin Trade Name Freq PRN Reason Stop Dose Admin Acetaminophen 650 mg 08/19/19 22:44 Tylenol PO Q4H PRN Pain MILD(1-3)/Fever >100.5/PORTER Albuterol 2.5 mg 08/20/19 09:00 Proventil IH QID PRN Wheezing Cyanocobalamin 1,000 mcg 08/20/19 10:00 08/26/19 09:27 Vitamin B-12 PO Not Given QDAY [facility] Dextrose 0 ml 08/19/19 22:43 D50w (25gm) Syringe IV Q30MIN PRN Hypoglycemia Diphenhydramine HCl 25 mg 08/22/19 22:22 08/26/19 03:36 Benadryl IV 25 mg Q6H PRN Administration Itching Epoetin Mitch 20,000 unit 08/20/19 09:17 08/24/19 13:35 Procrit SUB-Q 20,000 unit FAN PRN Administration hemodialysis Folic Acid 1 mg 08/20/19 10:00 08/26/19 09:25 Folvite PO Not Given QDAY [facility] Gabapentin 300 mg 08/22/19 10:00 08/26/19 09:25 Neurontin PO Not Given MoWeThFr [facility] Hydralazine HCl 10 mg 08/21/19 13:00 Apresoline IV Q4H PRN BP >160/100 Hydroxychloroquine Sulfate 200 mg 08/20/19 10:00 08/26/19 09:25 Plaquenil PO Not Given QDAY [facility] Hydroxyzine HCl 50 mg 08/20/19 10:00 08/26/19 09:24 Atarax PO Not Given QDAY [facility] Sodium Chloride 100 mls @ 999 mls/hr 08/23/19 07:05 Nacl 0.9% IV FAN PRN Hypotension Insulin Glargine 20 units 08/20/19 22:00 08/25/19 23:24 Lantus SUB-Q Not Given QHS [facility] Insulin Human Lispro 0 unit 08/20/19 11:30 08/26/19 07:30 Humalog SUB-Q 4 unit ACHS JOEL Administration Protocol Labetalol HCl 300 mg 08/20/19 10:00 08/26/19 09:08 Normodyne PO 300 mg BID JOEL Administration Levetiracetam 500 mg 08/20/19 10:00 08/26/19 09:08 Keppra PO 500 mg BID JOEL Administration Lorazepam 1 mg 08/20/19 10:30 08/24/19 10:24 Ativan IV 1 mg 3XW PRN Administration before dialysis Losartan Potassium 50 mg 08/20/19 10:00 08/26/19 09:25 Cozaar PO Not Given QDAY [facility] Melatonin 5 mg 08/25/19 22:00 08/25/19 23:25 Melatonin PO Not Given QHS [facility] Methylprednisolone Sodium Succinate 20 mg 08/21/19 12:00 08/26/19 09:08 Solu-Medrol IV 20 mg DAILY JOEL Administration Metoclopramide HCl 10 mg 08/21/19 12:46 08/26/19 03:36 Reglan IV 10 mg Q6H PRN Administration Nausea And Vomiting Mycophenolate Mofetil 500 mg 08/20/19 10:00 08/26/19 09:24 Cellcept PO Not Given QDAY [facility] Olanzapine 5 mg 08/25/19 22:00 08/25/19 23:25 Zyprexa PO Not Given HS [facility] Ondansetron HCl 4 mg 08/21/19 13:00 08/26/19 09:20 Zofran IV 4 mg Q4H PRN Administration Nausea And Vomiting Oxycodone/Acetaminophen 1 tab 08/20/19 09:00 08/24/19 04:47 Percocet 5/325 PO 1 tab Q8H PRN Administration Pain, Moderate (4-6) Pantoprazole Sodium 40 mg 08/26/19 10:00 08/26/19 09:25 Protonix PO Not Given DAILY [facility] Promethazine HCl 25 mg 08/21/19 12:46 Phenergan [place] Q6H PRN Nausea And Vomiting Sevelamer Carbonate 800 mg 08/20/19 16:30 08/26/19 08:09 Renvela PO Not Given 0730,1630 JOEL Sodium Chloride 10 ml 08/20/19 10:00 08/26/19 09:26 Sodium Chloride Flush Syringe 10 Ml IV 10 ml BID JOEL Administration Sodium Chloride 10 ml 08/19/19 22:44 08/22/19 22:32 Sodium Chloride Flush Syringe 10 Ml IV 10 ml PRN PRN Administration LINE FLUSH
[2019-08-26] MEDS ORDERED: LORazepam 2 MG/ML VIAL IV ONE (11:12)
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
[2019-08-26] MEDS ORDERED: SODIUM CHLORIDE 0.9% 100 ML IV PRN (11:47)
--- NOTE | 2019-08-26 12:23 | Progress Note ---
Subjective - Reason for Consult Consult date: 08/26/19 Reason for consult: Psychiatry Follow-up - Chief Complaint Chief complaint: "I tried to take my medications" 29 y.o. AA female who presented to the ER for AMS. Initially the patient was calm and cooperative during the assessment. She was adamant that she attempted to take her medication this morning, but experience N/V. Per the MAR, the patient refused her medication last night. She continue to have paranoia thoughts about the staff trying to harm her. She denies SI/HI"s and AVH's. I the provider returned to the patient's room with her assigned nurse and noticed a change in the patient's presentation. She was staring at the ceiling, with a intermittent blank rate, and her mouth was somewhat twisted. The patient has a hx of seizure. A Code MET was called and Ativan 1 mg IV was ordered. Di scussed the patient's presentation change with Dr Srivastava the patient's assigned hospitalist. Mental Status Exam - Vital signs Last Vital Signs Temp 99.5 F 08/26/19 05:51 Pulse 126 H 08/26/19 05:51 Resp 20 08/26/19 05:51 BP 158/99 08/26/19 05:51 Pulse Ox 97 08/26/19 05:51 - Exam Narrative exam: MSE: Appearance: in hospital attire Behavior: regular eye contact Speech: regular rate and tone Mood: "okay" Affect: congruent to mood Thought Process: circumstantial Thought Content: denies SI/HI's and AVH's, still delusional, paranoid Motor Activity: lying in bed Cognition: A/O x 2, with confusion Insight: variable Judgment: variable Assessment and Plan Impression. Delirium. Today the patient is still paranoid during the assessment. Cr 5.3, trending down. DDx: Unspecified Personality DO Recommendation/Plan: Modify Zyprexa to Zydis ODT 5 mg PO for psychosis. Place tablet on the patients's tongue for administration. Recommend no narcotics at this time. Recommend Delirium precautions below: 1. Frequently reorient patient and involve him/her in their care (simple explanations of procedures, tests, medications). 2. Lights on and shades open during daytime hours. 3. Write date and goals of care in a visible place. 4. Try to avoid unnecessary interruptions to sleep during nighttime hours. 5. Obtain glasses, hearing aids from home if patient uses these at baseline. 6. Avoid medications that may exacerbate delirium (especially narcotics, benzodiazepines, barbiturates, ambien, lunesta, and medications with excessive anticholinergic properties). The patient has Percocet (PRN) and Atarax (scheduled) in her MAR? Recommend Atarax PRN and a NSAID for pain. Staffed with Dr Luis Rivera.
[2019-08-26] MEDS: levETIRAcetam 750 MG in DEXTROSE 5% IN WATER 100 ML IV SCH ×2 (12:38→21:30)
[2019-08-26 12:54] LABS: Hematocrit 20.1 % (30.3-42.9); Hemoglobin 6.3 gm/dl (10.1-14.3); Mean Corpuscular HGB Conc 31 % (30-34); Mean Corpuscular Volume 83 fl (79-97); Platelet Count 252 K/mm3 (140-440); Red Blood Count 2.43 M/mm3 (3.65-5.03); Red Cell Distribution Width 18.5 % (13.2-15.2)
[2019-08-26] MEDS ORDERED: ACETAMINOPHEN 650 MG RECT SUPP PR PRN (13:00)
[2019-08-26 13:07] LABS: Calcium 8.8 mg/dL (8.4-10.2)
[2019-08-26 14:02] LABS: Anisocytosis 2+; Band Neutrophils # (Manual) 1.5 K/mm3; Basophils % (Manual) 0 % (0.0-1.8); Eosinophils % (Manual) 0 % (0.0-4.3); Hypochromasia 1+; Total Cells Counted 100
[2019-08-26 14:03] LABS: Platelet Estimate Consistent w Auto
[2019-08-26] MEDS: LORazepam 2 MG/ML VIAL IV PRN (18:28)
[2019-08-26] MEDS ORDERED: FAT EMULSIONS 20% 250 ML IV SCH (20:00)
[2019-08-26] MEDS ORDERED: TOTAL PARENTERAL NUTRITION 1,560 ML IV SCH (20:00)
[2019-08-26] MEDS: OLANzapine ZYDIS 5 MG TAB PO SCH (22:00)
[2019-08-26] MEDS: hydrALAZINE 20 MG/1 ML INJ IV PRN (22:43)
[2019-08-26] MEDS: INSULIN GLARGINE 100 UNITS/ML SUB-Q SCH (22:45)
[2019-08-27] MEDS: INSULIN LISPRO 100 UNIT/ML SUB-Q SCH ×4 (02:08→17:02)
[2019-08-27] MEDS: MELATONIN 5 MG TAB PO SCH (02:15)
[2019-08-27] MEDS: SEVELAMER CARBONATE 800 MG TAB PO SCH ×2 (07:30→16:30)
[2019-08-27 07:51] LABS: Mean Corpuscular HGB Conc 31 % (30-34); Mean Corpuscular Volume 84 fl (79-97); Platelet Count 237 K/mm3 (140-440); Red Blood Count 2.17 M/mm3 (3.65-5.03); Red Cell Distribution Width 18.6 % (13.2-15.2)
[2019-08-27] MEDS: hydrALAZINE 20 MG/1 ML INJ IV PRN ×2 (07:57→17:41)
[2019-08-27 08:11] LABS: Calcium 8.7 mg/dL (8.4-10.2)
[2019-08-27 08:12] LABS: Hemoglobin 5.7 gm/dl (10.1-14.3)
[2019-08-27 08:13] LABS: Hematocrit 18.1 % (30.3-42.9)
--- NOTE | 2019-08-27 09:16 | Progress Note ---
Assessment and Plan 1. ESRD: On maintenance hemodialysis three times a week, TTS schedule. Last dialyzed on 08/24. HD held yesterday due to tachycardia and AMS. HD today. 2. FEN: Hyperkalemia, improved. Metabolic acidosis, improved. Monitor lytes. 3. Anemia: Epogen with HD. S/p PRBC. 4. Seizures: On Keppra. 5. Metabolic encephalopathy. 6. Acute pancreatitis: Continue supportive care. On PPN / TPN. 7. History of lupus: On Cellcept, Plaquenil and Solumedrol. 8. Psychosis. 9. Deconditioning. Examination: General appearance: well-developed, appears stated age, no distress HEENT: ATNC, BORA Neck: trachea midline Respiratory: Clear to Ascultation Heart: regular, S1S2, no murmur, tachy Gastrointestinal: soft, normoactive bowel sound, not tender Integumentary: no rash, warm and dry Neurologic: alert, eyes open, moves extremities with pain, non-verbal, not following any command Musculoskeletal: trace LE edema noted Hemodialysis access: L arm AVG Subjective Date of service: 08/27/19 Principal diagnosis: anbl trop Interval history: Patient was seen and examined at the bedside. RN at the bedside. Objective - Vital Signs Vital signs: Vital Signs - 12hr 08/26/19 08/26/19 08/26/19 21:58 22:00 22:43 Temperature 98.5 F Pulse Rate 106 H 98 H Respiratory 20 Rate Blood Pressure 156/104 156/104 Blood Pressure [Right] O2 Sat by Pulse 100 96 Oximetry 08/26/19 08/27/19 08/27/19 23:20 02:14 06:05 Temperature 98.7 F Pulse Rate 111 H 98 H 107 H Respiratory 20 Rate Blood Pressure 156/104 159/107 Blood Pressure 151/89 [Right] O2 Sat by Pulse 99 Oximetry 08/27/19 07:57 Temperature Pulse Rate 107 H Respiratory Rate Blood Pressure 186/119 Blood Pressure [Right] O2 Sat by Pulse Oximetry - Lab 08/27/19 07:40 08/27/19 07:40 Most recent lab results Calcium 8.7 mg/dL (8.4-10.2) 08/27/19 07:40 Phosphorus 7.10 mg/dL (2.5-4.5) H D 08/27/19 07:40 Magnesium 2.00 mg/dL (1.7-2.3) 08/27/19 07:40 Medications & Allergies - Medications Allergies/Adverse Reactions: Allergies lactose Adverse Reaction (Verified 07/29/19 08:16) Unknown Home Medications: Home Medications Medication Instructions Recorded Confirmed Last Taken Type ALBUTEROL NEB's [Proventil 0.083% 2.5 mg IH QID PRN 07/26/19 08/21/19 07/25/19 History NEBS] Labetalol HCl [Labetalol 300mg TAB] 300 mg PO Q12H 07/26/19 08/21/19 07/25/19 History Mirtazapine 7.5 mg PO QDAY 07/26/19 08/21/19 07/25/19 History Pantoprazole [Protonix TAB] 40 mg PO BID 07/26/19 08/21/19 08/21/19 15:56 History Sevelamer HCl [Renagel] 800 mg PO BIDWM 07/26/19 08/21/19 07/25/19 History Acetaminophen [Acetaminophen TAB] 650 mg PO Q6H PRN tablet 08/18/19 08/21/19 Unknown Rx Cyanocobalamin (Vitamin B-12) 1,000 mcg PO QDAY #20 08/18/19 08/21/19 Unknown Rx [Vitamin B-12] Epoetin Mitch 20,000 Unit [Procrit] 20,000 unit SUB-Q FAN PRN vial 08/18/19 08/21/19 Unknown Rx Folic Acid [Folvite] 1 mg PO QDAY #30 08/18/19 08/21/19 Unknown Rx Gabapentin 300 mg PO 3XW #60 08/18/19 08/21/19 08/21/19 15:58 Rx Hydroxychloroquine [Plaquenil] 200 mg PO QDAY #30 08/18/19 08/21/19 Unknown Rx Insulin Glargine [Lantus VIAL] 20 units SUB-Q QHS #1 units 08/18/19 08/21/19 08/21/19 15:57 Rx Labetalol [Labetalol 200mg TAB] 300 mg PO BID #60 tablet 08/18/19 08/21/19 Unknown Rx Losartan [Cozaar] 50 mg PO QDAY #30 08/18/19 08/21/19 Unknown Rx Mycophenolate [Cellcept] 500 mg PO QDAY #30 08/18/19 08/21/19 08/21/19 15:56 Rx Pantoprazole [Protonix TAB] 40 mg PO BID #60 tablet 08/18/19 08/21/19 08/21/19 15:55 Rx Sevelamer Carbonate [Renvela] 800 mg PO 0730,1630 #30 tablet 08/18/19 08/21/19 08/21/19 15:56 Rx Total Parenteral Nutrition [TPN 12 ml IV DAILY@2000 ml 08/18/19 08/21/19 08/21/19 15:55 Rx Adult] hydrOXYzine HCL [Atarax] 50 mg PO QDAY #30 08/18/19 08/21/19 Unknown Rx levETIRAcetam [Keppra TAB] 500 mg PO BID #60 tablet 08/18/19 08/21/19 08/21/19 15:54 Rx oxyCODONE /ACETAMINOPHEN [Percocet 1 tab PO Q8H PRN #30 tablet 08/18/19 08/21/19 Unknown Rx 5/325 mg] predniSONE [Deltasone] 20 mg PO QDAY #30 08/18/19 08/21/19 Unknown Rx Active Medications: Generic Name Dose Route Start Last Admin Trade Name Freq PRN Reason Stop Dose Admin Acetaminophen 650 mg 08/19/19 22:44 Tylenol PO Q4H PRN Pain MILD(1-3)/Fever >100.5/PORTER Acetaminophen 650 mg 08/26/19 13:00 Tylenol [place] Q6H PRN Pain, Mild (1-3) Albuterol 2.5 mg 08/20/19 09:00 Proventil IH QID PRN Wheezing Cyanocobalamin 1,000 mcg 08/20/19 10:00 08/26/19 09:27 Vitamin B-12 PO Not Given QDAY JOEL Dextrose 0 ml 08/19/19 22:43 D50w (25gm) Syringe IV Q30MIN PRN Hypoglycemia Diphenhydramine HCl 25 mg 08/22/19 22:22 08/26/19 03:36 Benadryl IV 25 mg Q6H PRN Administration Itching Epoetin Mitch 20,000 unit 08/20/19 09:17 08/24/19 13:35 Procrit SUB-Q 20,000 unit FAN PRN Administration hemodialysis Folic Acid 1 mg 08/20/19 10:00 08/26/19 09:25 Folvite PO Not Given QDAY [facility] Gabapentin 300 mg 08/22/19 10:00 08/26/19 09:25 Neurontin PO Not Given MoWeThFr JOEL Hydralazine HCl 10 mg 08/21/19 13:00 08/27/19 07:57 Apresoline IV 10 mg Q4H PRN Administration BP >160/100 Hydroxychloroquine Sulfate 200 mg 08/20/19 10:00 08/26/19 09:25 Plaquenil PO Not Given QDAY [facility] Hydroxyzine HCl 50 mg 08/20/19 10:00 08/26/19 09:24 Atarax PO Not Given QDAY [facility] Levetiracetam 750 mg/ Dextrose 107.5 mls @ 400 mls/hr 08/26/19 12:30 08/26/19 21:30 IV 400 mls/hr Q12HR JOEL Administration Sodium Chloride 100 mls @ 999 mls/hr 08/26/19 11:47 Nacl 0.9% IV FAN PRN Hypotension Insulin Glargine 20 units 08/20/19 22:00 08/26/19 22:45 Lantus SUB-Q 20 units QHS JOEL Administration Insulin Human Lispro 0 unit 08/20/19 11:30 08/27/19 07:30 Humalog SUB-Q 8 unit ACHS JOEL Administration Protocol Labetalol HCl 300 mg 08/20/19 10:00 08/27/19 02:14 Normodyne PO Not Given BID JOEL Lorazepam 1 mg 08/26/19 12:00 Ativan IV TuThSa PRN ANXIETY before dialysis Lorazepam 2 mg 08/26/19 11:30 08/26/19 18:28 Ativan IV 2 mg Q4H PRN Administration Seizures Losartan Potassium 50 mg 08/20/19 10:00 08/26/19 09:25 Cozaar PO Not Given QDAY [facility] Melatonin 5 mg 08/25/19 22:00 08/27/19 02:15 Melatonin PO Not Given QHS [facility] Methylprednisolone Sodium Succinate 20 mg 08/21/19 12:00 08/26/19 09:08 Solu-Medrol IV 20 mg DAILY JOEL Administration Metoclopramide HCl 10 mg 08/21/19 12:46 08/26/19 03:36 Reglan IV 10 mg Q6H PRN Administration Nausea And Vomiting Mycophenolate Mofetil 500 mg 08/20/19 10:00 08/26/19 09:24 Cellcept PO Not Given QDAY JOEL Olanzapine 5 mg 08/26/19 22:00 08/26/19 22:00 Zyprexa Zydis PO 5 mg HS JOEL Administration Ondansetron HCl 4 mg 08/21/19 13:00 08/26/19 09:20 Zofran IV 4 mg Q4H PRN Administration Nausea And Vomiting Oxycodone/Acetaminophen 1 tab 08/20/19 09:00 08/24/19 04:47 Percocet 5/325 PO 1 tab Q8H PRN Administration Pain, Moderate (4-6) Pantoprazole Sodium 40 mg 08/26/19 10:00 08/26/19 09:25 Protonix PO Not Given DAILY JOEL Promethazine HCl 25 mg 08/21/19 12:46 Phenergan [place] Q6H PRN Nausea And Vomiting Sevelamer Carbonate 800 mg 08/20/19 16:30 08/26/19 18:27 Renvela PO Not Given 0730,1630 JOEL Sodium Chloride 10 ml 08/20/19 10:00 08/26/19 21:53 Sodium Chloride Flush Syringe 10 Ml IV 10 ml BID JOEL Administration Sodium Chloride 10 ml 08/19/19 22:44 08/22/19 22:32 Sodium Chloride Flush Syringe 10 Ml IV 10 ml PRN PRN Administration LINE FLUSH
[2019-08-27] MEDS ORDERED: SODIUM CHLORIDE 0.9% 500 ML 500 ML IV NR (10:13)
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
[2019-08-27] MEDS ORDERED: INSULIN NPH/REGULAR 70/30 INJ SUB-Q ONE (10:22)
[2019-08-27] MEDS: LOSARTAN 50 MG TAB PO SCH (10:28)
[2019-08-27] MEDS ORDERED: SODIUM CHLORIDE 0.9% 100 ML IV PRN (10:28)
[2019-08-27] MEDS: hydrOXYzine HCL 25 MG TAB PO SCH (10:28)
[2019-08-27] MEDS: MYCOPHENOLATE 500 MG TAB PO SCH (10:28)
[2019-08-27] MEDS: FOLIC ACID 1 MG TAB PO SCH (10:28)
[2019-08-27] MEDS: PANTOPRAZOLE 40 MG TAB PO SCH (10:29)
[2019-08-27] MEDS: CYANOCOBALAMIN (VIT B-12) 1000 MCG TAB PO SCH (10:29)
[2019-08-27] MEDS: HYDROXYCHLOROQUINE 200 MG TAB PO SCH (10:29)
[2019-08-27 10:33] LABS: Anisocytosis 2+; Band Neutrophils # (Manual) 0.6 K/mm3; Eosinophils % (Manual) 0 % (0.0-4.3); Hypochromasia 2+; Platelet Estimate Consistent w Auto; Total Cells Counted 100
[2019-08-27] MEDS: levETIRAcetam 750 MG in DEXTROSE 5% IN WATER 100 ML IV SCH (10:49)
[2019-08-27] MEDS: methylPREDNISolone Sod Succinate 40 MG/1 ML INJ IV SCH (10:50)
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
[2019-08-27] MEDS: ONDANSETRON 4 MG/2 ML INJ IV PRN (17:41)
[2019-08-27] MEDS ORDERED: TOTAL PARENTERAL NUTRITION 1,560 ML IV SCH (20:00)
[2019-08-27] MEDS: LORazepam 2 MG/ML VIAL IV PRN ×2 (21:00→21:09)
[2019-08-27] MEDS: EPOETIN ALFA 20,000 UNIT/1 ML INJ SUB-Q PRN (22:00)
[2019-08-28] MEDS: MELATONIN 5 MG TAB PO SCH ×2 (00:57→22:53)
[2019-08-28] MEDS: diphenhydrAMINE 50 MG/ML VIAL IV PRN ×2 (00:58→18:37)
[2019-08-28] MEDS: levETIRAcetam 750 MG in DEXTROSE 5% IN WATER 100 ML IV SCH ×3 (01:02→22:57)
[2019-08-28] MEDS: INSULIN GLARGINE 100 UNITS/ML SUB-Q SCH ×2 (01:03→22:58)
[2019-08-28] MEDS: OLANzapine ZYDIS 5 MG TAB PO SCH ×2 (01:04→22:50)
[2019-08-28] MEDS: INSULIN LISPRO 100 UNIT/ML SUB-Q SCH ×6 (01:05→22:53)
[2019-08-28 06:09] LABS: Calcium 8.7 mg/dL (8.4-10.2)
[2019-08-28] MEDS: SEVELAMER CARBONATE 800 MG TAB PO SCH ×2 (08:57→16:57)
--- NOTE | 2019-08-28 09:30 | Progress Note ---
Assessment and Plan 1. ESRD: On maintenance hemodialysis three times a week, TTS schedule. Last dialyzed on yesterday. 2. FEN: Hyperkalemia, improved. Metabolic acidosis, improved. On Sevelamer. Monitor lytes. 3. Anemia: Epogen with HD. S/p PRBC. 4. Seizures: On Keppra. 5. Metabolic encephalopathy. 6. Acute pancreatitis: Continue supportive care. On PPN / TPN. 7. History of lupus: On Cellcept, Plaquenil and Solumedrol. 8. Psychosis. 9. Deconditioning. Examination: General appearance: well-developed, appears stated age, no distress HEENT: ATNC, BORA Neck: trachea midline Respiratory: Clear to Ascultation Heart: regular, S1S2, no murmur, tachy Gastrointestinal: soft, normoactive bowel sound, not tender Integumentary: no rash, warm and dry Neurologic: alert, follows command, answers questions Musculoskeletal: no edema Hemodialysis access: L arm AVG Subjective Date of service: 08/28/19 Principal diagnosis: anbl trop Interval history: Patient was seen and examined at the bedside. Nursing aid at the bedside. Objective - Vital Signs Vital signs: Vital Signs - 12hr 08/27/19 08/27/19 08/27/19 21:45 22:00 22:15 Temperature Pulse Rate 108 H 94 H 106 H Respiratory Rate Blood Pressure 148/103 149/104 149/100 O2 Sat by Pulse 98 Oximetry 08/27/19 08/27/19 08/27/19 22:30 23:33 23:40 Temperature 98.2 F 97.7 F Pulse Rate 107 H 105 H 110 H Respiratory 18 20 Rate Blood Pressure 149/104 157/92 153/112 O2 Sat by Pulse 97 Oximetry 08/28/19 08/28/19 01:06 04:53 Temperature 97.6 F Pulse Rate 110 H 100 H Respiratory 20 Rate Blood Pressure 153/112 132/80 O2 Sat by Pulse 97 Oximetry - Lab 08/28/19 10:44 08/28/19 05:25 Most recent lab results Calcium 8.7 mg/dL (8.4-10.2) 08/28/19 05:25 Phosphorus 7.10 mg/dL (2.5-4.5) H D 08/27/19 07:40 Magnesium 2.00 mg/dL (1.7-2.3) 08/27/19 07:40 Medications & Allergies - Medications Allergies/Adverse Reactions: Allergies lactose Adverse Reaction (Verified 07/29/19 08:16) Unknown Home Medications: Home Medications Medication Instructions Recorded Confirmed Last Taken Type ALBUTEROL NEB's [Proventil 0.083% 2.5 mg IH QID PRN 07/26/19 08/21/19 07/25/19 History NEBS] Labetalol HCl [Labetalol 300mg TAB] 300 mg PO Q12H 07/26/19 08/21/19 07/25/19 History Mirtazapine 7.5 mg PO QDAY 07/26/19 08/21/19 07/25/19 History Pantoprazole [Protonix TAB] 40 mg PO BID 07/26/19 08/21/19 08/21/19 15:56 History Sevelamer HCl [Renagel] 800 mg PO BIDWM 07/26/19 08/21/19 07/25/19 History Acetaminophen [Acetaminophen TAB] 650 mg PO Q6H PRN tablet 08/18/19 08/21/19 Unknown Rx Cyanocobalamin (Vitamin B-12) 1,000 mcg PO QDAY #20 08/18/19 08/21/19 Unknown Rx [Vitamin B-12] Epoetin Mitch 20,000 Unit [Procrit] 20,000 unit SUB-Q FAN PRN vial 08/18/19 08/21/19 Unknown Rx Folic Acid [Folvite] 1 mg PO QDAY #30 08/18/19 08/21/19 Unknown Rx Gabapentin 300 mg PO 3XW #60 08/18/19 08/21/19 08/21/19 15:58 Rx Hydroxychloroquine [Plaquenil] 200 mg PO QDAY #30 08/18/19 08/21/19 Unknown Rx Insulin Glargine [Lantus VIAL] 20 units SUB-Q QHS #1 units 08/18/19 08/21/19 08/21/19 15:57 Rx Labetalol [Labetalol 200mg TAB] 300 mg PO BID #60 tablet 08/18/19 08/21/19 Unknown Rx Losartan [Cozaar] 50 mg PO QDAY #30 08/18/19 08/21/19 Unknown Rx Mycophenolate [Cellcept] 500 mg PO QDAY #30 08/18/19 08/21/19 08/21/19 15:56 Rx Pantoprazole [Protonix TAB] 40 mg PO BID #60 tablet 08/18/19 08/21/19 08/21/19 15:55 Rx Sevelamer Carbonate [Renvela] 800 mg PO 0730,1630 #30 tablet 08/18/19 08/21/19 08/21/19 15:56 Rx Total Parenteral Nutrition [TPN 12 ml IV DAILY@2000 ml 08/18/19 08/21/19 08/21/19 15:55 Rx Adult] hydrOXYzine HCL [Atarax] 50 mg PO QDAY #30 08/18/19 08/21/19 Unknown Rx levETIRAcetam [Keppra TAB] 500 mg PO BID #60 tablet 08/18/19 08/21/19 08/21/19 15:54 Rx oxyCODONE /ACETAMINOPHEN [Percocet 1 tab PO Q8H PRN #30 tablet 08/18/19 08/21/19 Unknown Rx 5/325 mg] predniSONE [Deltasone] 20 mg PO QDAY #30 08/18/19 08/21/19 Unknown Rx Active Medications: Generic Name Dose Route Start Last Admin Trade Name Freq PRN Reason Stop Dose Admin Acetaminophen 650 mg 08/19/19 22:44 Tylenol PO Q4H PRN Pain MILD(1-3)/Fever >100.5/PORTER Acetaminophen 650 mg 08/26/19 13:00 Tylenol MA Q6H PRN Pain, Mild (1-3) Albuterol 2.5 mg 08/20/19 09:00 Proventil IH QID PRN Wheezing Cyanocobalamin 1,000 mcg 08/20/19 10:00 08/27/19 10:29 Vitamin B-12 PO Not Given QDAY JOEL Dextrose 0 ml 08/19/19 22:43 D50w (25gm) Syringe IV Q30MIN PRN Hypoglycemia Diphenhydramine HCl 25 mg 08/22/19 22:22 08/28/19 00:58 Benadryl IV 25 mg Q6H PRN Administration Itching Epoetin Mitch 20,000 unit 08/20/19 09:17 08/27/19 22:00 Procrit SUB-Q 20,000 unit FAN PRN Administration hemodialysis Folic Acid 1 mg 08/20/19 10:00 08/27/19 10:28 Folvite PO Not Given QDAY [facility] Hydralazine HCl 10 mg 08/21/19 13:00 08/27/19 17:41 Apresoline IV 10 mg Q4H PRN Administration BP >160/100 Hydroxychloroquine Sulfate 200 mg 08/20/19 10:00 08/27/19 10:29 Plaquenil PO Not Given QDAY [facility] Hydroxyzine HCl 50 mg 08/20/19 10:00 08/27/19 10:28 Atarax PO Not Given QDAY [facility] Levetiracetam 750 mg/ Dextrose 107.5 mls @ 400 mls/hr 08/26/19 12:30 08/28/19 01:02 IV 400 mls/hr Q12HR JOEL Administration Sodium Chloride 100 mls @ 999 mls/hr 08/27/19 10:28 Nacl 0.9% IV FAN PRN Hypotension Insulin Glargine 20 units 08/20/19 22:00 08/28/19 01:03 Lantus SUB-Q 20 units QHS JOEL Administration Insulin Human Lispro 0 unit 08/20/19 11:30 08/28/19 01:05 Humalog SUB-Q 2 unit ACHS JOEL Administration Protocol Labetalol HCl 300 mg 08/20/19 10:00 08/28/19 01:06 Normodyne PO 300 mg BID JOEL Administration Lorazepam 1 mg 08/26/19 12:00 08/27/19 21:09 Ativan IV 1 mg TuThSa PRN Administration ANXIETY before dialysis Lorazepam 2 mg 08/26/19 11:30 08/27/19 21:00 Ativan IV 2 mg Q4H PRN Administration Seizures Losartan Potassium 50 mg 08/20/19 10:00 08/27/19 10:28 Cozaar PO Not Given QDAY [facility] Melatonin 5 mg 08/25/19 22:00 08/28/19 00:57 Melatonin PO 5 mg QHS JOEL Administration Methylprednisolone Sodium Succinate 20 mg 08/21/19 12:00 08/27/19 10:50 Solu-Medrol IV 20 mg DAILY JOEL Administration Metoclopramide HCl 10 mg 08/21/19 12:46 08/26/19 03:36 Reglan IV 10 mg Q6H PRN Administration Nausea And Vomiting Mycophenolate Mofetil 500 mg 08/20/19 10:00 08/27/19 10:28 Cellcept PO Not Given QDAY JOEL Olanzapine 5 mg 08/26/19 22:00 08/28/19 01:04 Zyprexa Zydis PO 5 mg HS JOEL Administration Ondansetron HCl 4 mg 08/21/19 13:00 08/27/19 17:41 Zofran IV 4 mg Q4H PRN Administration Nausea And Vomiting Oxycodone/Acetaminophen 1 tab 08/20/19 09:00 08/24/19 04:47 Percocet 5/325 PO 1 tab Q8H PRN Administration Pain, Moderate (4-6) Pantoprazole Sodium 40 mg 08/26/19 10:00 08/27/19 10:29 Protonix PO Not Given DAILY JOEL Promethazine HCl 25 mg 08/21/19 12:46 Phenergan MA Q6H PRN Nausea And Vomiting Sevelamer Carbonate 800 mg 08/20/19 16:30 08/28/19 08:57 Renvela PO Not Given 0730,1630 JOEL Sodium Chloride 10 ml 08/20/19 10:00 08/28/19 00:14 Sodium Chloride Flush Syringe 10 Ml IV 10 ml BID JOEL Administration Sodium Chloride 10 ml 08/19/19 22:44 08/22/19 22:32 Sodium Chloride Flush Syringe 10 Ml IV 10 ml PRN PRN Administration LINE FLUSH
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
[2019-08-28] MEDS: MYCOPHENOLATE 500 MG TAB PO SCH (10:07)
[2019-08-28] MEDS: hydrOXYzine HCL 25 MG TAB PO SCH (10:07)
[2019-08-28] MEDS: CYANOCOBALAMIN (VIT B-12) 1000 MCG TAB PO SCH (10:08)
[2019-08-28] MEDS: LOSARTAN 50 MG TAB PO SCH (10:08)
[2019-08-28] MEDS: FOLIC ACID 1 MG TAB PO SCH (10:08)
[2019-08-28] MEDS: HYDROXYCHLOROQUINE 200 MG TAB PO SCH (10:08)
[2019-08-28] MEDS: PANTOPRAZOLE 40 MG TAB PO SCH (10:08)
[2019-08-28] MEDS: methylPREDNISolone Sod Succinate 40 MG/1 ML INJ IV SCH (10:23)
[2019-08-28] MEDS: METOCLOPRAMIDE 10 MG/2 ML INJ IV PRN (10:23)
[2019-08-28 11:13] LABS: Hematocrit 29.1 % (30.3-42.9); Hemoglobin 9.4 gm/dl (10.1-14.3); Mean Corpuscular HGB Conc 32 % (30-34); Mean Corpuscular Volume 85 fl (79-97); Platelet Count 220 K/mm3 (140-440); Red Blood Count 3.43 M/mm3 (3.65-5.03)
[2019-08-28] MEDS: ONDANSETRON 4 MG/2 ML INJ IV PRN (12:23)
[2019-08-28 13:28] LABS: Basophils % (Manual) 0 % (0.0-1.8); Total Cells Counted 100
[2019-08-28 13:29] LABS: Anisocytosis 1+; Hypochromasia Few; Platelet Estimate Consistent w Auto
[2019-08-28] MEDS: hydrALAZINE 20 MG/1 ML INJ IV PRN ×2 (18:07→23:06)
--- NOTE | 2019-08-28 18:11 | Progress Note ---
Subjective - Reason for Consult Consult date: 08/28/19 Reason for consult: follow up - Chief Complaint Chief complaint: "They've been trying to come in here." 29 y.o. AA female who presented to the ER for AMS. Initially the patient was calm and cooperative but expressed paranoia. She continues to have paranoid thoughts about the staff trying to harm her. She denies SI/HIs and AVH's. She states she wants to return home with her son's father. She says he has always been there for she and her son. Mental Status Exam - Vital signs Last Vital Signs Temp 97.9 F 08/28/19 17:54 Pulse 113 H 08/28/19 17:54 Resp 20 08/28/19 17:54 BP 132/80 08/28/19 04:53 Pulse Ox 100 08/28/19 17:54 - Exam Narrative exam: MSE: Appearance: in hospital attire Behavior: regular eye contact Speech: regular rate and tone Mood: "okay" Affect: congruent to mood Thought Process: circumstantial Thought Content: denies SI/HI's and AVH's, still delusional, paranoid Motor Activity: lying in bed Cognition: A/O x 2, with confusion Insight: variable Judgment: variable Assessment and Plan Impression. Delirium. Today the patient is still paranoid during the assessment. multiple electrolyte abnormalities DDx: Unspecified Personality DO Recommendation/Plan: Continue Zyprexa Zydis ODT 5 mg PO for psychosis. Place tablet on the patients's tongue for administration. Recommend no narcotics at this time. Recommend Delirium precautions below: 1. Frequently reorient patient and involve him/her in their care (simple explanations of procedures, tests, medications). 2. Lights on and shades open during daytime hours. 3. Write date and goals of care in a visible place. 4. Try to avoid unnecessary interruptions to sleep during nighttime hours. 5. Obtain glasses, hearing aids from home if patient uses these at baseline. 6. Avoid medications that may exacerbate delirium (especially narcotics, benzodiazepines, barbiturates, ambien, lunesta, and medications with excessive anticholinergic properties). The patient has Percocet (PRN) and Atarax (scheduled) in her MAR? Recommend Atarax PRN and a NSAID for pain. Staffed with Dr Luis Rivera.
[2019-08-28] MEDS: LORazepam 2 MG/ML VIAL IV PRN (19:52)
[2019-08-28] MEDS ORDERED: TOTAL PARENTERAL NUTRITION 1,560 ML IV SCH (20:00)
[2019-08-29] MEDS: LORazepam 2 MG/ML VIAL IV PRN ×2 (02:24→13:01)
[2019-08-29] MEDS: diphenhydrAMINE 50 MG/ML VIAL IV PRN ×2 (02:25→11:12)
[2019-08-29 05:35] LABS: Hematocrit 27.8 % (30.3-42.9); Hemoglobin 8.8 gm/dl (10.1-14.3); Mean Corpuscular HGB Conc 32 % (30-34); Mean Corpuscular Volume 85 fl (79-97); Platelet Count 232 K/mm3 (140-440); Red Blood Count 3.29 M/mm3 (3.65-5.03); Red Cell Distribution Width 17.1 % (13.2-15.2)
[2019-08-29 07:15] LABS: Basophils % (Manual) 0 % (0.0-1.8); Eosinophils % (Manual) 0 % (0.0-4.3); Total Cells Counted 100
[2019-08-29 07:16] LABS: Anisocytosis 1+
[2019-08-29 07:17] LABS: Large Platelets Few; Ovalocytes Few; Platelet Estimate Cons
[2019-08-29] MEDS ORDERED: INSULIN GLARGINE 100 UNITS/ML SUB-Q SCH (08:00)
[2019-08-29] MEDS: INSULIN LISPRO 100 UNIT/ML SUB-Q SCH ×4 (08:49→22:29)
[2019-08-29] MEDS ORDERED: POTASSIUM CHLORIDE ER 20 MEQ TAB PO ONE (09:00)
[2019-08-29] MEDS: levETIRAcetam 750 MG in DEXTROSE 5% IN WATER 100 ML IV SCH ×2 (09:02→21:28)
--- NOTE | 2019-08-29 09:21 | Progress Note ---
Assessment and Plan 1. ESRD: On maintenance hemodialysis three times a week, TTS schedule. Last dialyzed 2 days ago. 2. FEN: Hyperkalemia, improved. Metabolic acidosis, improved. Monitor lytes. 3. Anemia: Epogen with HD. S/p PRBC. 4. Seizures: On Keppra. 5. Metabolic encephalopathy. 6. Acute pancreatitis: Continue supportive care. On PPN / TPN. 7. History of lupus: On Solumedrol. Patient is not taking any of the pills. 8. Psychosis. 9. Deconditioning. Examination: General appearance: well-developed, appears stated age, no distress HEENT: ATNC, BORA Neck: trachea midline Respiratory: Clear to Ascultation Heart: regular, S1S2, no murmur, tachy Gastrointestinal: soft, normoactive bowel sound, not tender Integumentary: no rash, warm and dry Neurologic: alert, follows command, answers questions, confusion noted Musculoskeletal: no edema Hemodialysis access: L arm AVG Subjective Date of service: 08/29/19 Principal diagnosis: anbl trop Interval history: Patient was seen and examined at the bedside. RN at the bedside. Objective - Vital Signs Vital signs: Vital Signs - 12hr 08/28/19 08/28/19 08/28/19 21:34 22:52 23:06 Temperature 98.4 F Pulse Rate 118 H 122 H 122 H Respiratory 18 Rate Blood Pressure 152/107 152/107 152/107 O2 Sat by Pulse 99 Oximetry 08/29/19 04:29 Temperature 98.3 F Pulse Rate 118 H Respiratory 24 Rate Blood Pressure 158/99 O2 Sat by Pulse 99 Oximetry - Lab 08/29/19 05:00 08/29/19 05:00 Most recent lab results Calcium 9.0 mg/dL (8.4-10.2) 08/29/19 05:00 Phosphorus 5.90 mg/dL (2.5-4.5) H 08/29/19 05:00 Magnesium 2.00 mg/dL (1.7-2.3) 08/29/19 05:00 Medications & Allergies - Medications Allergies/Adverse Reactions: Allergies lactose Adverse Reaction (Verified 07/29/19 08:16) Unknown Home Medications: Home Medications Medication Instructions Recorded Confirmed Last Taken Type ALBUTEROL NEB's [Proventil 0.083% 2.5 mg IH QID PRN 07/26/19 08/21/19 07/25/19 History NEBS] Labetalol HCl [Labetalol 300mg TAB] 300 mg PO Q12H 07/26/19 08/21/19 07/25/19 History Mirtazapine 7.5 mg PO QDAY 07/26/19 08/21/19 07/25/19 History Pantoprazole [Protonix TAB] 40 mg PO BID 07/26/19 08/21/19 08/21/19 15:56 Histor y Sevelamer HCl [Renagel] 800 mg PO BIDWM 07/26/19 08/21/19 07/25/19 History Acetaminophen [Acetaminophen TAB] 650 mg PO Q6H PRN tablet 08/18/19 08/21/19 Unknown Rx Cyanocobalamin (Vitamin B-12) 1,000 mcg PO QDAY #20 08/18/19 08/21/19 Unknown Rx [Vitamin B-12] Epoetin Mitch 20,000 Unit [Procrit] 20,000 unit SUB-Q FAN PRN vial 08/18/19 08/21/19 Unknown Rx Folic Acid [Folvite] 1 mg PO QDAY #30 08/18/19 08/21/19 Unknown Rx Gabapentin 300 mg PO 3XW #60 08/18/19 08/21/19 08/21/19 15:58 Rx Hydroxychloroquine [Plaquenil] 200 mg PO QDAY #30 08/18/19 08/21/19 Unknown Rx Insulin Glargine [Lantus VIAL] 20 units SUB-Q QHS #1 units 08/18/19 08/21/19 08/21/19 15:57 Rx Labetalol [Labetalol 200mg TAB] 300 mg PO BID #60 tablet 08/18/19 08/21/19 Unknown Rx Losartan [Cozaar] 50 mg PO QDAY #30 08/18/19 08/21/19 Unknown Rx Mycophenolate [Cellcept] 500 mg PO QDAY #30 08/18/19 08/21/19 08/21/19 15:56 Rx Pantoprazole [Protonix TAB] 40 mg PO BID #60 tablet 08/18/19 08/21/19 08/21/19 15:55 Rx Sevelamer Carbonate [Renvela] 800 mg PO 0730,1630 #30 tablet 08/18/19 08/21/19 08/21/19 15:56 Rx Total Parenteral Nutrition [TPN 12 ml IV DAILY@2000 ml 08/18/19 08/21/19 08/21/19 15:55 Rx Adult] hydrOXYzine HCL [Atarax] 50 mg PO QDAY #30 08/18/19 08/21/19 Unknown Rx levETIRAcetam [Keppra TAB] 500 mg PO BID #60 tablet 08/18/19 08/21/19 08/21/19 15:54 Rx oxyCODONE /ACETAMINOPHEN [Percocet 1 tab PO Q8H PRN #30 tablet 08/18/19 08/21/19 Unknown Rx 5/325 mg] predniSONE [Deltasone] 20 mg PO QDAY #30 08/18/19 08/21/19 Unknown Rx Active Medications: Generic Name Dose Route Start Last Admin Trade Name Freq PRN Reason Stop Dose Admin Acetaminophen 650 mg 08/19/19 22:44 Tylenol PO Q4H PRN Pain MILD(1-3)/Fever >100.5/PORTER Acetaminophen 650 mg 08/26/19 13:00 Tylenol [place] Q6H PRN Pain, Mild (1-3) Albuterol 2.5 mg 08/20/19 09:00 Proventil IH QID PRN Wheezing Cyanocobalamin 1,000 mcg 08/20/19 10:00 08/28/19 10:08 Vitamin B-12 PO Not Given QDAY JOEL Dextrose 0 ml 08/19/19 22:43 D50w (25gm) Syringe IV Q30MIN PRN Hypoglycemia Diphenhydramine HCl 25 mg 08/22/19 22:22 08/29/19 02:25 Benadryl IV 25 mg Q6H PRN Administration Itching Epoetin Mitch 20,000 unit 08/20/19 09:17 08/27/19 22:00 Procrit SUB-Q 20,000 unit FAN PRN Administration hemodialysis Folic Acid 1 mg 08/20/19 10:00 08/28/19 10:08 Folvite PO Not Given QDAY [facility] Hydralazine HCl 10 mg 08/21/19 13:00 08/28/19 23:06 Apresoline IV 10 mg Q4H PRN Administration BP >160/100 Hydroxychloroquine Sulfate 200 mg 08/20/19 10:00 08/28/19 10:08 Plaquenil PO Not Given QDAY JOEL Hydroxyzine HCl 50 mg 08/20/19 10:00 08/28/19 10:07 Atarax PO Not Given QDAY JOEL Levetiracetam 750 mg/ Dextrose 107.5 mls @ 400 mls/hr 08/26/19 12:30 08/29/19 09:02 IV 400 mls/hr Q12HR JOEL Administration Sodium Chloride 100 mls @ 999 mls/hr 08/27/19 10:28 Nacl 0.9% IV FAN PRN Hypotension Potassium Chloride 10 meq in 100 mls @ 100 mls/hr 08/29/19 10:00 Kcl 10meq/100ml IV 08/29/19 13:59 Q1H JOEL Insulin Glargine 20 units 08/20/19 22:00 08/28/19 22:58 Lantus SUB-Q 20 units QHS JOEL Administration Insulin Glargine 10 units 08/29/19 08:00 08/29/19 08:48 Lantus SUB-Q 10 units QAMDIAB JOEL Administration Insulin Human Lispro 0 unit 08/20/19 11:30 08/29/19 08:49 Humalog SUB-Q 8 unit ACHS JOEL Administration Protocol Labetalol HCl 300 mg 08/20/19 10:00 08/28/19 22:52 Normodyne PO 300 mg BID JOEL Administration Lorazepam 1 mg 08/26/19 12:00 08/29/19 02:24 Ativan IV 1 mg TuThSa PRN Administration ANXIETY before dialysis Lorazepam 2 mg 08/26/19 11:30 08/27/19 21:00 Ativan IV 2 mg Q4H PRN Administration Seizures Losartan Potassium 50 mg 08/20/19 10:00 08/28/19 10:08 Cozaar PO Not Given QDAY JOEL Melatonin 5 mg 08/25/19 22:00 08/28/19 22:53 Melatonin PO 5 mg QHS JOEL Administration Methylprednisolone Sodium Succinate 20 mg 08/21/19 12:00 08/28/19 10:23 Solu-Medrol IV 20 mg DAILY JOEL Administration Metoclopramide HCl 10 mg 08/21/19 12:46 08/28/19 10:23 Reglan IV 10 mg Q6H PRN Administration Nausea And Vomiting Mycophenolate Mofetil 500 mg 08/20/19 10:00 08/28/19 10:07 Cellcept PO Not Given QDAY JOEL Olanzapine 5 mg 08/26/19 22:00 08/28/19 22:50 Zyprexa Zydis PO 5 mg HS JOEL Administration Ondansetron HCl 4 mg 08/21/19 13:00 08/28/19 12:23 Zofran IV 4 mg Q4H PRN Administration Nausea And Vomiting Oxycodone/Acetaminophen 1 tab 08/20/19 09:00 08/24/19 04:47 Percocet 5/325 PO 1 tab Q8H PRN Administration Pain, Moderate (4-6) Pantoprazole Sodium 40 mg 08/26/19 10:00 08/28/19 10:08 Protonix PO Not Given DAILY JOEL Promethazine HCl 25 mg 08/21/19 12:46 Phenergan [place] Q6H PRN Nausea And Vomiting Sevelamer Carbonate 800 mg 08/20/19 16:30 08/28/19 16:57 Renvela PO Not Given 0730,1630 JOEL Sodium Chloride 10 ml 08/20/19 10:00 08/29/19 02:27 Sodium Chloride Flush Syringe 10 Ml IV 10 ml BID JOEL Administration Sodium Chloride 10 ml 08/19/19 22:44 08/22/19 22:32 Sodium Chloride Flush Syringe 10 Ml IV 10 ml PRN PRN Administration LINE FLUSH
[2019-08-29] MEDS: PANTOPRAZOLE 40 MG TAB PO SCH (10:00)
[2019-08-29] MEDS: HYDROXYCHLOROQUINE 200 MG TAB PO SCH (10:00)
[2019-08-29] MEDS: CYANOCOBALAMIN (VIT B-12) 1000 MCG TAB PO SCH (10:00)
[2019-08-29] MEDS: SEVELAMER CARBONATE 800 MG TAB PO SCH ×2 (10:14→16:30)
[2019-08-29] MEDS: hydrOXYzine HCL 25 MG TAB PO SCH (10:15)
[2019-08-29] MEDS: MYCOPHENOLATE 500 MG TAB PO SCH (10:15)
[2019-08-29] MEDS: LOSARTAN 50 MG TAB PO SCH (10:15)
[2019-08-29] MEDS: FOLIC ACID 1 MG TAB PO SCH (10:15)
[2019-08-29] MEDS: POTASSIUM CHLORIDE 10 MEQ 10 MEQ/100 ML BAG IV SCH ×4 (10:16→13:59)
[2019-08-29] MEDS: ONDANSETRON 4 MG/2 ML INJ IV PRN (11:13)
[2019-08-29] MEDS: methylPREDNISolone Sod Succinate 40 MG/1 ML INJ IV SCH (13:00)
[2019-08-29] MEDS: DEXTROSE 50% IN WATER (25GM) 50 ML SYRINGE IV PRN (13:00)
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
--- NOTE | 2019-08-29 13:47 | Progress Note ---
Subjective - Reason for Consult Consult date: 08/29/19 Reason for consult: Psychiatry Follow-up - Chief Complaint Chief complaint: "I feel bad" 29 y.o. AA female who presented to the ER for AMS. Initially the patient was calm and cooperative but expressed paranoia. Today the patient was lethargic during the assessment. She stated that she's tired of "throwing up." The patient did not state that she was being harmed by staff when asked. The patient pre sented with paranoia during previous assessments.. She denies SI/HI's and AVH's. No indications of side effects from her medication. Mental Status Exam - Vital signs Last Vital Signs Temp 98.3 F 08/29/19 04:29 Pulse 118 H 08/29/19 04:29 Resp 24 08/29/19 04:29 BP 158/99 08/29/19 04:29 Pulse Ox 99 08/29/19 04:29 - Exam Narrative exam: MSE: Appearance: in hospital attire Behavior: regular eye contact Speech: regular rate and tone Mood: "tired" Affect: congruent to mood Thought Process: circumstantial Thought Content: denies SI/HI's and AVH's Motor Activity: lying in bed Cognition: A/O x 3 Insight: variable to fair Judgment: fair Assessment and Plan Impression. Delirium. Today the patient was lethargic during the assessment. Cr 6.9, trending upward. DDx: Unspecified Personality DO Recommendation/Plan: Continue Zyprexa to Zydis ODT 5 mg PO for psychosis. Place tablet on the patients's tongue for administration. Recommend no narcotics at this time. Psy sign off, reconsult when indicated. Recommend Delirium precautions below: 1. Frequently reorient patient and involve him/her in their care (simple explanations of procedures, tests, medications). 2. Lights on and shades open during daytime hours. 3. Write date and goals of care in a visible place. 4. Try to avoid unnecessary interruptions to sleep during nighttime hours. 5. Obtain glasses, hearing aids from home if patient uses these at baseline. 6. Avoid medications that may exacerbate delirium (especially narcotics, benzodiazepines, barbiturates, ambien, lunesta, and medications with excessive anticholinergic properties). The patient has Percocet (PRN) and Atarax (scheduled) in her MAR? Recommend Atarax PRN and a NSAID for pain. Staffed with Dr Luis Rivera.
[2019-08-29] MEDS ORDERED: TOTAL PARENTERAL NUTRITION 1,560 ML IV SCH (20:00)
[2019-08-29] MEDS ORDERED: FAT EMULSIONS 20% 250 ML IV SCH (20:00)
[2019-08-29] MEDS: MELATONIN 5 MG TAB PO SCH (21:26)
[2019-08-29] MEDS: hydrALAZINE 20 MG/1 ML INJ IV PRN (21:50)
[2019-08-29] MEDS: INSULIN GLARGINE 100 UNITS/ML SUB-Q SCH (22:31)
[2019-08-30] MEDS: OLANzapine ZYDIS 5 MG TAB PO SCH ×2 (04:18→22:00)
[2019-08-30] MEDS: ONDANSETRON 4 MG/2 ML INJ IV PRN (04:20)
[2019-08-30] MEDS: hydrALAZINE 20 MG/1 ML INJ IV PRN (06:34)
[2019-08-30] MEDS: INSULIN LISPRO 100 UNIT/ML SUB-Q SCH ×4 (06:46→23:19)
[2019-08-30 07:01] LABS: Hematocrit 27.1 % (30.3-42.9); Hemoglobin 8.9 gm/dl (10.1-14.3); Mean Corpuscular HGB Conc 33 % (30-34); Mean Corpuscular Volume 84 fl (79-97); Platelet Count 251 K/mm3 (140-440); Red Blood Count 3.22 M/mm3 (3.65-5.03); Red Cell Distribution Width 17.3 % (13.2-15.2)
[2019-08-30 07:44] LABS: Calcium 8.9 mg/dL (8.4-10.2)
--- NOTE | 2019-08-30 08:42 | Progress Note ---
Assessment and Plan 1. ESRD: On maintenance hemodialysis three times a week, TTS schedule. Last dialyzed 2 days ago. 2. FEN: Hyperkalemia, improved. Metabolic acidosis, improved. Monitor lytes. 3. Anemia: Epogen with HD. S/p PRBC. 4. Seizures: On Keppra. 5. Metabolic encephalopathy. 6. Acute pancreatitis: Continue supportive care. On PPN / TPN. 7. History of lupus: On Solumedrol. Patient is not taking any of the pills. 8. Hyperglycemia. 9. Psychosis. 10. Deconditioning. Examination: General appearance: well-developed, appears stated age, no distress, paranoid ideas HEENT: ATNC, BORA Neck: trachea midline Respiratory: Clear to Ascultation Heart: regular, S1S2, no murmur Gastrointestinal: soft, normoactive bowel sound, not tender Integumentary: no rash, warm and dry Neurologic: alert, follows command, answers questions, some confusion noted Musculoskeletal: no edema Hemodialysis access: L arm AVG Subjective Date of service: 08/30/19 Principal diagnosis: anbl trop Interval history: Patient was seen and examined at the bedside. RN at the bedside. Objective - Vital Signs Vital signs: Vital Signs - 12hr 08/29/19 08/29/19 08/30/19 21:26 21:50 00:10 Temperature 98.9 F Pulse Rate 108 H 108 H 118 H Pulse Rate [ Apical] Respiratory 22 Rate Blood Pressure 166/117 166/117 161/103 O2 Sat by Pulse 99 Oximetry 08/30/19 08/30/19 08/30/19 04:38 05:54 06:34 Temperature 98.7 F Pulse Rate 119 H 119 H Pulse Rate [ 127 H Apical] Respiratory 22 Rate Blood Pressure 161/100 161/100 O2 Sat by Pulse 94 Oximetry - Lab 08/30/19 06:30 08/30/19 06:30 Most recent lab results Calcium 8.9 mg/dL (8.4-10.2) 08/30/19 06:30 Phosphorus 6.40 mg/dL (2.5-4.5) H 08/30/19 06:30 Magnesium 2.30 mg/dL (1.7-2.3) 08/30/19 06:30 Medications & Allergies - Medications Allergies/Adverse Reactions: Allergies lactose Adverse Reaction (Verified 07/29/19 08:16) Unknown Home Medications: Home Medications Medication Instructions Recorded Confirmed Last Taken Type ALBUTEROL NEB's [Proventil 0.083% 2.5 mg IH QID PRN 07/26/19 08/21/19 07/25/19 History NEBS] Labetalol HCl [Labetalol 300mg TAB] 300 mg PO Q12H 07/26/19 08/21/19 07/25/19 History Mirtazapine 7.5 mg PO QDAY 07/26/19 08/21/19 07/25/19 History Pantoprazole [Protonix TAB] 40 mg PO BID 07/26/19 08/21/19 08/21/19 15:56 History Sevelamer HCl [Renagel] 800 mg PO BIDWM 07/26/19 08/21/19 07/25/19 History Acetaminophen [Acetaminophen TAB] 650 mg PO Q6H PRN tablet 08/18/19 08/21/19 Unknown Rx Cyanocobalamin (Vitamin B-12) 1,000 mcg PO QDAY #20 08/18/19 08/21/19 Unknown Rx [Vitamin B-12] Epoetin Mitch 20,000 Unit [Procrit] 20,000 unit SUB-Q FAN PRN vial 08/18/19 08/21/19 Unknown Rx Folic Acid [Folvite] 1 mg PO QDAY #30 08/18/19 08/21/19 Unknown Rx Gabapentin 300 mg PO 3XW #60 08/18/19 08/21/19 08/21/19 15:58 Rx Hydroxychloroquine [Plaquenil] 200 mg PO QDAY #30 08/18/19 08/21/19 Unknown Rx Insulin Glargine [Lantus VIAL] 20 units SUB-Q QHS #1 units 08/18/19 08/21/19 08/21/19 15:57 Rx Labetalol [Labetalol 200mg TAB] 300 mg PO BID #60 tablet 08/18/19 08/21/19 Unknown Rx Losartan [Cozaar] 50 mg PO QDAY #30 08/18/19 08/21/19 Unknown Rx Mycophenolate [Cellcept] 500 mg PO QDAY #30 08/18/19 08/21/19 08/21/19 15:56 Rx Pantoprazole [Protonix TAB] 40 mg PO BID #60 tablet 08/18/19 08/21/19 08/21/19 15:55 Rx Sevelamer Carbonate [Renvela] 800 mg PO 0730,1630 #30 tablet 08/18/19 08/21/19 08/21/19 15:56 Rx Total Parenteral Nutrition [TPN 12 ml IV DAILY@2000 ml 08/18/19 08/21/19 08/21/19 15:55 Rx Adult] hydrOXYzine HCL [Atarax] 50 mg PO QDAY #30 08/18/19 08/21/19 Unknown Rx levETIRAcetam [Keppra TAB] 500 mg PO BID #60 tablet 08/18/19 08/21/19 08/21/19 15:54 Rx oxyCODONE /ACETAMINOPHEN [Percocet 1 tab PO Q8H PRN #30 tablet 08/18/19 08/21/19 Unknown Rx 5/325 mg] predniSONE [Deltasone] 20 mg PO QDAY #30 08/18/19 08/21/19 Unknown Rx Active Medications: Generic Name Dose Route Start Last Admin Trade Name Freq PRN Reason Stop Dose Admin Acetaminophen 650 mg 08/19/19 22:44 Tylenol PO Q4H PRN Pain MILD(1-3)/Fever >100.5/PORTER Acetaminophen 650 mg 08/26/19 13:00 Tylenol [place] Q6H PRN Pain, Mild (1-3) Albuterol 2.5 mg 08/20/19 09:00 Proventil IH QID PRN Wheezing Cyanocobalamin 1,000 mcg 08/20/19 10:00 08/29/19 10:00 Vitamin B-12 PO Not Given QDAY JOEL Dextrose 0 ml 08/19/19 22:43 08/29/19 13:00 D50w (25gm) Syringe IV 20 ml Q30MIN PRN Administration Hypoglycemia Diphenhydramine HCl 25 mg 08/22/19 22:22 08/29/19 11:12 Benadryl IV 25 mg Q6H PRN Administration Itching Epoetin Mitch 20,000 unit 08/20/19 09:17 08/27/19 22:00 Procrit SUB-Q 20,000 unit FAN PRN Administration hemodialysis Folic Acid 1 mg 08/20/19 10:00 08/29/19 10:15 Folvite PO Not Given QDAY [facility] Hydralazine HCl 10 mg 08/21/19 13:00 08/30/19 06:34 Apresoline IV 10 mg Q4H PRN Administration BP >160/100 Hydroxychloroquine Sulfate 200 mg 08/20/19 10:00 08/29/19 10:00 Plaquenil PO Not Given QDAY [facility] Hydroxyzine HCl 50 mg 08/20/19 10:00 08/29/19 10:15 Atarax PO Not Given QDAY [facility] Levetiracetam 750 mg/ Dextrose 107.5 mls @ 400 mls/hr 08/26/19 12:30 08/29/19 21:28 IV 400 mls/hr Q12HR JOEL Administration Sodium Chloride 100 mls @ 999 mls/hr 08/27/19 10:28 Nacl 0.9% IV FAN PRN Hypotension Insulin Glargine 20 units 08/20/19 22:00 08/29/19 22:31 Lantus SUB-Q Not Given QHS [facility] Insulin Glargine 6 units 08/29/19 13:12 Lantus SUB-Q QAMDIAB [facility] Insulin Human Lispro 0 unit 08/20/19 11:30 08/30/19 06:46 Humalog SUB-Q 8 unit ACHS JOEL Administration Protocol Labetalol HCl 300 mg 08/20/19 10:00 08/29/19 21:26 Normodyne PO 300 mg BID JOEL Administration Lorazepam 1 mg 08/26/19 12:00 08/29/19 02:24 Ativan IV 1 mg TuThSa PRN Administration ANXIETY before dialysis Lorazepam 2 mg 08/26/19 11:30 08/29/19 13:01 Ativan IV 2 mg Q4H PRN Administration Seizures Losartan Potassium 50 mg 08/20/19 10:00 08/29/19 10:15 Cozaar PO Not Given QDAY [facility] Melatonin 5 mg 08/25/19 22:00 08/29/19 21:26 Melatonin PO 5 mg QHS [facility] Administration Methylprednisolone Sodium Succinate 20 mg 08/21/19 12:00 08/29/19 13:00 Solu-Medrol IV 20 mg DAILY JOEL Administration Metoclopramide HCl 10 mg 08/21/19 12:46 08/28/19 10:23 Reglan IV 10 mg Q6H PRN Administration Nausea And Vomiting Mycophenolate Mofetil 500 mg 08/20/19 10:00 08/29/19 10:15 Cellcept PO Not Given QDAY JOEL Olanzapine 5 mg 08/26/19 22:00 08/30/19 04:18 Zyprexa Zydis PO Not Given HS JOEL Ondansetron HCl 4 mg 08/21/19 13:00 08/30/19 04:20 Zofran IV 4 mg Q4H PRN Administration Nausea And Vomiting Oxycodone/Acetaminophen 1 tab 08/20/19 09:00 08/24/19 04:47 Percocet 5/325 PO 1 tab Q8H PRN Administration Pain, Moderate (4-6) Pantoprazole Sodium 40 mg 08/26/19 10:00 08/29/19 10:00 Protonix PO Not Given DAILY JOEL Promethazine HCl 25 mg 08/21/19 12:46 Phenergan [place] Q6H PRN Nausea And Vomiting Sevelamer Carbonate 800 mg 08/20/19 16:30 08/29/19 16:30 Renvela PO Not Given 0730,1630 JOEL Sodium Chloride 10 ml 08/20/19 10:00 08/29/19 21:30 Sodium Chloride Flush Syringe 10 Ml IV 10 ml BID JOEL Administration Sodium Chloride 10 ml 08/19/19 22:44 08/22/19 22:32 Sodium Chloride Flush Syringe 10 Ml IV 10 ml PRN PRN Administration LINE FLUSH
[2019-08-30] MEDS ORDERED: SODIUM CHLORIDE 0.9% 100 ML IV PRN (08:45)
[2019-08-30 09:15] LABS: Basophils % (Manual) 0 % (0.0-1.8); Total Cells Counted 100
[2019-08-30 09:17] LABS: Anisocytosis 1+; Macrocytosis Few; Poikilocytosis 1+; Tear Drop Cells Rare
[2019-08-30 09:18] LABS: Platelet Estimate Consistent w Auto
[2019-08-30] MEDS: SEVELAMER CARBONATE 800 MG TAB PO SCH ×2 (09:53→18:02)
[2019-08-30] MEDS: INSULIN GLARGINE 100 UNITS/ML SUB-Q SCH ×2 (09:59→21:59)
[2019-08-30] MEDS: MYCOPHENOLATE 500 MG TAB PO SCH (11:34)
[2019-08-30] MEDS: LOSARTAN 50 MG TAB PO SCH (11:34)
[2019-08-30] MEDS: hydrOXYzine HCL 25 MG TAB PO SCH (11:34)
[2019-08-30] MEDS: FOLIC ACID 1 MG TAB PO SCH (11:35)
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
[2019-08-30] MEDS: HYDROXYCHLOROQUINE 200 MG TAB PO SCH (11:36)
[2019-08-30] MEDS: PANTOPRAZOLE 40 MG TAB PO SCH (11:36)
[2019-08-30] MEDS: CYANOCOBALAMIN (VIT B-12) 1000 MCG TAB PO SCH (11:36)
[2019-08-30] MEDS: methylPREDNISolone Sod Succinate 40 MG/1 ML INJ IV SCH (11:49)
[2019-08-30] MEDS: levETIRAcetam 750 MG in DEXTROSE 5% IN WATER 100 ML IV SCH ×2 (11:49→22:51)
[2019-08-30] MEDS: LORazepam 2 MG/ML VIAL IV PRN (15:46)
[2019-08-30] MEDS ORDERED: TOTAL PARENTERAL NUTRITION 1,560 ML IV SCH (20:00)
[2019-08-30] MEDS: METOCLOPRAMIDE 10 MG/2 ML INJ IV PRN (21:42)
[2019-08-30] MEDS: MELATONIN 5 MG TAB PO SCH (21:59)
[2019-08-31] MEDS: LORazepam 2 MG/ML VIAL IV PRN ×2 (01:20→15:17)
[2019-08-31 05:59] LABS: Basophils % (Auto) 0.1 % (0.0-1.8); Hematocrit 30.1 % (30.3-42.9); Hemoglobin 9.6 gm/dl (10.1-14.3); Lymphocytes # (Auto) 1.6 K/mm3 (1.2-5.4); Lymphocytes % (Auto) 13.6 % (13.4-35.0); Mean Corpuscular HGB Conc 32 % (30-34); Mean Corpuscular Volume 85 fl (79-97); Monocytes # (Auto) 1.5 K/mm3 (0.0-0.8); Monocytes % (Auto) 12.5 % (0.0-7.3); Platelet Count 181 K/mm3 (140-440); Red Blood Count 3.55 M/mm3 (3.65-5.03); Red Cell Distribution Width 17.3 % (13.2-15.2)
[2019-08-31 06:21] LABS: Calcium 8.7 mg/dL (8.4-10.2)
[2019-08-31] MEDS: INSULIN LISPRO 100 UNIT/ML SUB-Q SCH ×4 (06:29→22:57)
[2019-08-31] MEDS: SEVELAMER CARBONATE 800 MG TAB PO SCH ×2 (07:30→18:14)
[2019-08-31] MEDS: INSULIN GLARGINE 100 UNITS/ML SUB-Q SCH ×2 (09:01→22:56)
--- NOTE | 2019-08-31 09:34 | Progress Note ---
Assessment and Plan 1. ESRD: On maintenance hemodialysis three times a week, TTS schedule. Last dialyzed yesterday. 2. FEN: Hyperkalemia, improved. Metabolic acidosis, improved. Monitor lytes. 3. Anemia: Epogen with HD. S/p PRBC. 4. Seizures: On Keppra. 5. Metabolic encephalopathy. 6. Acute pancreatitis: C/o abdominal pain. CT abdomen ordered. On PPN / TPN. 7. History of lupus: On Solumedrol. Patient is not taking any of the pills. 8. Hyperglycemia. 9. Psychosis. 10. Deconditioning. Examination: General appearance: well-developed, appears stated age, distress noted HEENT: ATNC, BORA Neck: trachea midline Respiratory: Clear to Ascultation Heart: regular, S1S2, no murmur Gastrointestinal: soft to firm, distended, diffuse tenderness noted, normoactive bowel sound Integumentary: no rash, warm and dry Neurologic: alert, follows command, answers questions, some confusion noted Musculoskeletal: no edema Hemodialysis access: L arm AVG Subjective Date of service: 08/31/19 Principal diagnosis: anbl trop Interval history: Patient was seen and examined at the bedside. RN at the bedside. Patient c/o diffuse abdominal pain. Objective - Vital Signs Vital signs: Vital Signs - 12hr 08/30/19 08/30/19 08/31/19 22:00 23:34 05:08 Temperature 98.9 F 97.9 F Pulse Rate 113 H 115 H Respiratory 20 21 Rate Blood Pressure 154/103 159/96 O2 Sat by Pulse 96 99 97 Oximetry - Lab 08/31/19 05:45 08/31/19 05:45 Most recent lab results Calcium 8.7 mg/dL (8.4-10.2) 08/31/19 05:45 Phosphorus 4.90 mg/dL (2.5-4.5) H D 08/31/19 05:45 Magnesium 1.80 mg/dL (1.7-2.3) 08/31/19 05:45 Medications & Allergies - Medications Allergies/Adverse Reactions: Allergies lactose Adverse Reaction (Verified 07/29/19 08:16) Unknown Home Medications: Home Medications Medication Instructions Recorded Confirmed Last Taken Type ALBUTEROL NEB's [Proventil 0.083% 2.5 mg IH QID PRN 09/08/21/19 07/25/19 History NEBS] Labetalol HCl [Labetalol 300mg TAB] 300 mg PO Q12H 07/26/19 08/21/19 07/25/19 History Mirtazapine 7.5 mg PO QDAY 07/26/19 08/21/19 07/25/19 History Pantoprazole [Protonix TAB] 40 mg PO BID 07/26/19 08/21/19 08/21/19 15:56 History Sevelamer HCl [Renagel] 800 mg PO BIDWM 07/26/19 08/21/19 07/25/19 History Acetaminophen [Acetaminophen TAB] 650 mg PO Q6H PRN tablet 08/18/19 08/21/19 Unknown Rx Cyanocobalamin (Vitamin B-12) 1,000 mcg PO QDAY #20 08/18/19 08/21/19 Unknown Rx [Vitamin B-12] Epoetin Mitch 20,000 Unit [Procrit] 20,000 unit SUB-Q FAN PRN vial 08/18/19 08/21/19 Unknown Rx Folic Acid [Folvite] 1 mg PO QDAY #30 08/18/19 08/21/19 Unknown Rx Gabapentin 300 mg PO 3XW #60 08/18/19 08/21/19 08/21/19 15:58 Rx Hydroxychloroquine [Plaquenil] 200 mg PO QDAY #30 08/18/19 08/21/19 Unknown Rx Insulin Glargine [Lantus VIAL] 20 units SUB-Q QHS #1 units 08/18/19 08/21/19 08/21/19 15:57 Rx Labetalol [Labetalol 200mg TAB] 300 mg PO BID #60 tablet 08/18/19 08/21/19 Unknown Rx Losartan [Cozaar] 50 mg PO QDAY #30 08/18/19 08/21/19 Unknown Rx Mycophenolate [Cellcept] 500 mg PO QDAY #30 08/18/19 08/21/19 08/21/19 15:56 Rx Pantoprazole [Protonix TAB] 40 mg PO BID #60 tablet 08/18/19 08/21/19 08/21/19 15:55 Rx Sevelamer Carbonate [Renvela] 800 mg PO 0730,1630 #30 tablet 08/18/19 08/21/19 08/21/19 15:56 Rx Total Parenteral Nutrition [TPN 12 ml IV DAILY@2000 ml 08/18/19 08/21/19 08/21/19 15:55 Rx Adult] hydrOXYzine HCL [Atarax] 50 mg PO QDAY #30 08/18/19 08/21/19 Unknown Rx levETIRAcetam [Keppra TAB] 500 mg PO BID #60 tablet 08/18/19 08/21/19 08/21/19 15:54 Rx oxyCODONE /ACETAMINOPHEN [Percocet 1 tab PO Q8H PRN #30 tablet 08/18/19 08/21/19 Unknown Rx 5/325 mg] predniSONE [Deltasone] 20 mg PO QDAY #30 08/18/19 08/21/19 Unknown Rx Active Medications: Generic Name Dose Route Start Last Admin Trade Name Freq PRN Reason Stop Dose Admin Acetaminophen 650 mg 08/19/19 22:44 Tylenol PO Q4H PRN Pain MILD(1-3)/Fever >100.5/PORTER Acetaminophen 650 mg 08/26/19 13:00 Tylenol [place] Q6H PRN Pain, Mild (1-3) Albuterol 2.5 mg 08/20/19 09:00 Proventil IH QID PRN Wheezing Cyanocobalamin 1,000 mcg 08/20/19 10:00 08/30/19 11:36 Vitamin B-12 PO Not Given QDAY JOEL Dextrose 0 ml 08/19/19 22:43 08/29/19 13:00 D50w (25gm) Syringe IV 20 ml Q30MIN PRN Administration Hypoglycemia Diphenhydramine HCl 25 mg 08/22/19 22:22 08/29/19 11:12 Benadryl IV 25 mg Q6H PRN Administration Itching Epoetin Mitch 20,000 unit 08/20/19 09:17 08/27/19 22:00 Procrit SUB-Q 20,000 unit FAN PRN Administration hemodialysis Folic Acid 1 mg 08/20/19 10:00 08/30/19 11:35 Folvite PO Not Given QDAY [facility] Hydralazine HCl 10 mg 08/21/19 13:00 08/30/19 06:34 Apresoline IV 10 mg Q4H PRN Administration BP >160/100 Hydroxychloroquine Sulfate 200 mg 08/20/19 10:00 08/30/19 11:36 Plaquenil PO Not Given QDAY [facility] Hydroxyzine HCl 50 mg 08/20/19 10:00 08/30/19 11:34 Atarax PO Not Given QDAY [facility] Levetiracetam 750 mg/ Dextrose 107.5 mls @ 400 mls/hr 08/26/19 12:30 08/30/19 23:52 IV Infused Q12HR JOEL Infusion Sodium Chloride 100 mls @ 999 mls/hr 08/30/19 08:45 Nacl 0.9% IV FAN PRN Hypotension Insulin Glargine 20 units 08/20/19 22:00 08/30/19 21:59 Lantus SUB-Q 20 units QHS JOEL Administration Insulin Glargine 6 units 08/29/19 13:12 08/31/19 09:01 Lantus SUB-Q 6 units QAMDIAB JOEL Administration Insulin Human Lispro 0 unit 08/20/19 11:30 08/31/19 06:29 Humalog SUB-Q 8 unit ACHS JOEL Administration Protocol Labetalol HCl 300 mg 08/20/19 10:00 08/30/19 21:59 Normodyne PO 300 mg BID JOEL Administration Lorazepam 1 mg 08/26/19 12:00 08/29/19 02:24 Ativan IV 1 mg TuThSa PRN Administration ANXIETY before dialysis Lorazepam 2 mg 08/26/19 11:30 08/31/19 01:20 Ativan IV 2 mg Q4H PRN Administration Seizures Losartan Potassium 50 mg 08/20/19 10:00 08/30/19 11:34 Cozaar PO Not Given QDAY [facility] Melatonin 5 mg 08/25/19 22:00 08/30/19 21:59 Melatonin PO 5 mg QHS JOEL Administration Methylprednisolone Sodium Succinate 20 mg 08/21/19 12:00 08/30/19 11:49 Solu-Medrol IV 20 mg DAILY JOEL Administration Metoclopramide HCl 10 mg 08/21/19 12:46 08/30/19 21:42 Reglan IV 10 mg Q6H PRN Administration Nausea And Vomiting Mycophenolate Mofetil 500 mg 08/20/19 10:00 08/30/19 11:34 Cellcept PO Not Given QDAY JOEL Olanzapine 5 mg 08/26/19 22:00 08/30/19 22:00 Zyprexa Zydis PO 5 mg HS JOEL Administration Ondansetron HCl 4 mg 08/21/19 13:00 08/30/19 04:20 Zofran IV 4 mg Q4H PRN Administration Nausea And Vomiting Oxycodone/Acetaminophen 1 tab 08/20/19 09:00 08/24/19 04:47 Percocet 5/325 PO 1 tab Q8H PRN Administration Pain, Moderate (4-6) Pantoprazole Sodium 40 mg 08/26/19 10:00 08/30/19 11:36 Protonix PO Not Given DAILY JOEL Promethazine HCl 25 mg 08/21/19 12:46 Phenergan [place] Q6H PRN Nausea And Vomiting Sevelamer Carbonate 800 mg 08/20/19 16:30 08/31/19 07:30 Renvela PO Not Given 0730,1630 JOEL Sodium Chloride 10 ml 08/20/19 10:00 08/30/19 23:52 Sodium Chloride Flush Syringe 10 Ml IV 10 ml BID JOEL Administration Sodium Chloride 10 ml 08/19/19 22:44 08/22/19 22:32 Sodium Chloride Flush Syringe 10 Ml IV 10 ml PRN PRN Administration LINE FLUSH
[2019-08-31] MEDS: FOLIC ACID 1 MG TAB PO SCH (10:00)
[2019-08-31] MEDS: MYCOPHENOLATE 500 MG TAB PO SCH (10:00)
[2019-08-31] MEDS: PANTOPRAZOLE 40 MG TAB PO SCH (10:00)
[2019-08-31] MEDS: hydrOXYzine HCL 25 MG TAB PO SCH (10:00)
[2019-08-31] MEDS: HYDROXYCHLOROQUINE 200 MG TAB PO SCH (10:00)
--- NOTE | 2019-08-31 12:18 | Cat Scan Report ---
CT ABDOMEN AND PELVIS WITHOUT CONTRAST INDICATION: Abdominal pain and distention.. TECHNIQUE: Axial CT images were obtained through the abdomen and pelvis without IV contrast. All CT scans at [facility] location are performed using CT dose reduction for ALARA by means of automated exposure control. COMPARISON: CT abdomen pelvis 08/03/2019 FINDINGS: LOWER CHEST: Moderate cardiomegaly, unchanged. Fluid-filled mildly dilated distal thoracic esophagus without NG tube. Tiny right and small left pleural effusions with compressive atelectasis of left jackie g base. LIVER: No significant abnormality. GALLBLADDER: No significant abnormality. BILE DUCTS: No significant abnormality. PANCREAS: Chronic pancreatitis with large loculated peripancreatic fluid collections, increased since prior study. The largest peripancreatic fluid collection in the left upper quadrant currently measur es 16.5 x 12.7 cm in AP by transverse dimensions series 105 image 57, previously, there is a loculate d phlegmon-type collection measuring 11.3 x 8.0 cm on image 63. SPLEEN: Multiple splenic infarcts, unchanged ADRENALS: No significant abnormality. RIGHT KIDNEY and URETER: Moderate renal cortical atrophy characteristic for chronic renal disease, un changed LEFT KIDNEY and URETER: Moderate renal cortical atrophy characteristic for chronic renal disease. STOMACH and SMALL BOWEL: No significant abnormality. COLON: No significant abnormality. APPENDIX: No significant abnormality. PERITONEUM: No free fluid. No free air. Loculated fluid collection within the left flank/pararenal sp vic measures 5.3 x 9.3 cm in AP by transverse dimensions image 119, previously measuring 3.9 cm in gr eatest diameter image 106. LYMPH NODES: No significant adenopathy. AORTA and ARTERIES: No significant abnormality. IVC and VEINS: No significant abnormality. URINARY BLADDER: No significant abnormality. REPRODUCTIVE ORGANS: No significant abnormality. ADDITIONAL FINDINGS: None. SKELETAL SYSTEM: No significant abnormality. IMPRESSION: 1. Worsening pancreatitis with enlarging peripancreatic loculated fluid collections extending inferio rly into the left flank. 2. Persistent splenic infarctions, unchanged. 3. Moderate cardiomegaly with tiny right and small left pleural effusions. 4 moderate bilateral renal atrophy. Signer Name: Lorne Dempsey MD Signed: 08/31/2019 12:13 PM Workstation Name: [employer]
[2019-08-31] MEDS: ONDANSETRON 4 MG/2 ML INJ IV PRN ×2 (13:47→20:36)
[2019-08-31] MEDS: levETIRAcetam 750 MG in DEXTROSE 5% IN WATER 100 ML IV SCH ×2 (13:55→22:57)
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
[2019-08-31] MEDS: methylPREDNISolone Sod Succinate 40 MG/1 ML INJ IV SCH (15:09)
[2019-08-31] MEDS: D5W/0.9% NACL 1,000 ML IV SCH (15:19)
[2019-08-31] MEDS: CYANOCOBALAMIN (VIT B-12) 1000 MCG TAB PO SCH (16:18)
[2019-08-31] MEDS: LOSARTAN 50 MG TAB PO SCH (16:19)
[2019-08-31] MEDS ORDERED: FAT EMULSIONS 20% 250 ML IV SCH (20:00)
[2019-08-31] MEDS ORDERED: TOTAL PARENTERAL NUTRITION 1,560 ML IV SCH (20:00)
[2019-08-31] MEDS: MORPHINE 2 MG/1 ML INJ IV PRN (20:36)
[2019-08-31] MEDS: MELATONIN 5 MG TAB PO SCH (23:00)
[2019-08-31] MEDS: OLANzapine ZYDIS 5 MG TAB PO SCH (23:00)
[2019-09-01] MEDS: METOCLOPRAMIDE 10 MG/2 ML INJ IV PRN (00:05)
[2019-09-01] MEDS: MORPHINE 2 MG/1 ML INJ IV PRN ×2 (02:08→05:49)
[2019-09-01] MEDS: diphenhydrAMINE 50 MG/ML VIAL IV PRN (02:08)
[2019-09-01] MEDS: ONDANSETRON 4 MG/2 ML INJ IV PRN (05:49)
[2019-09-01] MEDS: hydrALAZINE 20 MG/1 ML INJ IV PRN (06:00)
[2019-09-01] MEDS: INSULIN LISPRO 100 UNIT/ML SUB-Q SCH ×4 (07:30→23:33)
[2019-09-01] MEDS: SEVELAMER CARBONATE 800 MG TAB PO SCH ×2 (07:30→21:49)
[2019-09-01] MEDS ORDERED: LORazepam 2 MG/ML VIAL IV ONE (07:45)
[2019-09-01] MEDS: INSULIN GLARGINE 100 UNITS/ML SUB-Q SCH ×2 (08:00→23:51)
[2019-09-01 08:47] LABS: Hematocrit 29.5 % (30.3-42.9); Hemoglobin 9.4 gm/dl (10.1-14.3); Mean Corpuscular HGB Conc 32 % (30-34); Mean Corpuscular Volume 84 fl (79-97); Platelet Count 221 K/mm3 (140-440); Red Blood Count 3.52 M/mm3 (3.65-5.03); Red Cell Distribution Width 18.3 % (13.2-15.2)
[2019-09-01] MEDS: levETIRAcetam 750 MG in DEXTROSE 5% IN WATER 100 ML IV SCH ×2 (10:00→22:09)
[2019-09-01] MEDS: PANTOPRAZOLE 40 MG TAB PO SCH (10:00)
[2019-09-01] MEDS: MYCOPHENOLATE 500 MG TAB PO SCH (10:00)
[2019-09-01] MEDS: LOSARTAN 50 MG TAB PO SCH (10:00)
[2019-09-01] MEDS: HYDROXYCHLOROQUINE 200 MG TAB PO SCH (10:00)
[2019-09-01] MEDS: CYANOCOBALAMIN (VIT B-12) 1000 MCG TAB PO SCH (10:00)
[2019-09-01] MEDS: hydrOXYzine HCL 25 MG TAB PO SCH (10:00)
[2019-09-01] MEDS ORDERED: cloNIDine TTS 0.2 MG/24 HR PATCH TD SCH (10:00)
[2019-09-01] MEDS: FOLIC ACID 1 MG TAB PO SCH (10:00)
[2019-09-01 10:32] LABS: Basophils % (Manual) 0 % (0.0-1.8); Eosinophils % (Manual) 0 % (0.0-4.3); Monocytes % (Manual) 0 % (0.0-7.3); Total Cells Counted 100
[2019-09-01] MEDS: methylPREDNISolone Sod Succinate 40 MG/1 ML INJ IV SCH (10:37)
[2019-09-01 10:38] LABS: Anisocytosis Few; Poikilocytosis Few
[2019-09-01 10:39] LABS: Large Platelets Rare; Ovalocytes Rare; Platelet Estimate Consistent w Auto
--- NOTE | 2019-09-01 10:40 | Progress Note ---
Assessment and Plan 1. ESRD: On maintenance hemodialysis three times a week, TTS schedule. Last dialyzed 2 days ago. Patient refused HD today. 2. FEN: Hyperkalemia, improved. Metabolic acidosis, improved. Monitor lytes. 3. Anemia: Epogen with HD. S/p PRBC. 4. Seizures: On Keppra. 5. Metabolic encephalopathy. 6. Acute pancreatitis: CT abdomen showed worsening pancreatitis. Gen. Surgery consulted. On PPN / TPN. 7. Tachycardia: Cardiology consulted. 8. History of lupus: On Solumedrol. Patient is not taking any of the pills. 9. Hyperglycemia. 10. Psychosis. 11. Deconditioning. Examination: General appearance: well-developed, appears stated age, not in distress HEENT: ATNC, BORA Neck: trachea midline Respiratory: Clear to Ascultation Heart: regular, S1S2, no murmur Gastrointestinal: soft, distended, diffuse tenderness noted, normoactive bowel sound Integumentary: no rash, warm and dry Neurologic: alert, follows some command, answers questions, confusion noted Musculoskeletal: no edema Hemodialysis access: L arm AVG Subjective Date of service: 09/01/19 Principal diagnosis: anbl trop Interval history: Patient was seen and examined at the bedside. RN at the bedside. Patient continues to have diffuse abdominal pain. Continues to refuse treatments. Objective - Vital Signs Vital signs: Vital Signs - 12hr 09/01/19 09/01/19 09/01/19 02:08 04:52 05:49 Temperature 100.0 F H Pulse Rate 132 H Respiratory 20 24 24 Rate Blood Pressure 167/100 O2 Sat by Pulse 100 Oximetry 09/01/19 06:00 Temperature Pulse Rate 132 H Respiratory Rate Blood Pressure 167/100 O2 Sat by Pulse Oximetry - Lab 09/01/19 08:35 09/01/19 07:30 Most recent lab results Calcium 9.0 mg/dL (8.4-10.2) 09/01/19 07:30 Phosphorus 5.30 mg/dL (2.5-4.5) H 09/01/19 07:30 Magnesium 1.70 mg/dL (1.7-2.3) 09/01/19 07:30 Medications & Allergies - Medications Allergies/Adverse Reactions: Allergies lactose Adverse Reaction (Verified 07/29/19 08:16) Unknown Home Medications: Home Medications Medication Instructions Recorded Confirmed Last Taken Type ALBUTEROL NEB's [Proventil 0.083% 2.5 mg IH QID PRN 07/26/19 08/21/19 07/25/19 History NEBS] Labetalol HCl [Labetalol 300mg TAB] 300 mg PO Q12H 07/26/19 08/21/19 07/25/19 History Mirtazapine 7.5 mg PO QDAY 07/26/19 08/21/19 07/25/19 History Pantoprazole [Protonix TAB] 40 mg PO BID 07/26/19 08/21/19 08/21/19 15:56 History Sevelamer HCl [Renagel] 800 mg PO BIDWM 07/26/19 08/21/19 07/25/19 History Acetaminophen [Acetaminophen TAB] 650 mg PO Q6H PRN tablet 08/18/19 08/21/19 Unknown Rx Cyanocobalamin (Vitamin B-12) 1,000 mcg PO QDAY #20 08/18/19 08/21/19 Unknown Rx [Vitamin B-12] Epoetin Mitch 20,000 Unit [Procrit] 20,000 unit SUB-Q FAN PRN vial 08/18/19 08/21/19 Unknown Rx Folic Acid [Folvite] 1 mg PO QDAY #30 08/18/19 08/21/19 Unknown Rx Gabapentin 300 mg PO 3XW #60 08/18/19 08/21/19 08/21/19 15:58 Rx Hydroxychloroquine [Plaquenil] 200 mg PO QDAY #30 08/18/19 08/21/19 Unknown Rx Insulin Glargine [Lantus VIAL] 20 units SUB-Q QHS #1 units 08/18/19 08/21/19 08/21/19 15:57 Rx Labetalol [Labetalol 200mg TAB] 300 mg PO BID #60 tablet 08/18/19 08/21/19 U nknown Rx Losartan [Cozaar] 50 mg PO QDAY #30 08/18/19 08/21/19 Unknown Rx Mycophenolate [Cellcept] 500 mg PO QDAY #30 08/18/19 08/21/19 08/21/19 15:56 Rx Pantoprazole [Protonix TAB] 40 mg PO BID #60 tablet 08/18/19 08/21/19 08/21/19 15:55 Rx Sevelamer Carbonate [Renvela] 800 mg PO 0730,1630 #30 tablet 08/18/19 08/21/19 08/21/19 15:56 Rx Total Parenteral Nutrition [TPN 12 ml IV DAILY@2000 ml 08/18/19 08/21/19 08/21/19 15:55 Rx Adult] hydrOXYzine HCL [Atarax] 50 mg PO QDAY #30 08/18/19 08/21/19 Unknown Rx levETIRAcetam [Keppra TAB] 500 mg PO BID #60 tablet 08/18/19 08/21/19 08/21/19 15:54 Rx oxyCODONE /ACETAMINOPHEN [Percocet 1 tab PO Q8H PRN #30 tablet 08/18/19 08/21/19 Unknown Rx 5/325 mg] predniSONE [Deltasone] 20 mg PO QDAY #30 08/18/19 08/21/19 Unknown Rx Active Medications: Generic Name Dose Route Start Last Admin Trade Name Freq PRN Reason Stop Dose Admin Acetaminophen 650 mg 08/19/19 22:44 Tylenol PO Q4H PRN Pain MILD(1-3)/Fever >100.5/PORTER Acetaminophen 650 mg 08/26/19 13:00 Tylenol ME Q6H PRN Pain, Mild (1-3) Albuterol 2.5 mg 08/20/19 09:00 Proventil IH QID PRN Wheezing Clonidine HCl 0.2 mg 09/01/19 10:00 Catapres-Tts Patch TD Th@1000 COUNT INCLUDES THE [facility] Cyanocobalamin 1,000 mcg 08/20/19 10:00 08/31/19 16:18 Vitamin B-12 PO Not Given QDAY COUNT INCLUDES THE [facility] Dextrose 0 ml 08/19/19 22:43 08/29/19 13:00 D50w (25gm) Syringe IV 20 ml Q30MIN PRN Administration Hypoglycemia Diphenhydramine HCl 25 mg 08/22/19 22:22 09/01/19 02:08 Benadryl IV 25 mg Q6H PRN Administration Itching Epoetin Mitch 20,000 unit 08/20/19 09:17 08/27/19 22:00 Procrit SUB-Q 20,000 unit FAN PRN Administration hemodialysis Folic Acid 1 mg 08/20/19 10:00 08/31/19 10:00 Folvite PO Not Given QDAY COUNT INCLUDES THE [facility] Hydralazine HCl 10 mg 08/21/19 13:00 09/01/19 06:00 Apresoline IV 10 mg Q4H PRN Administration BP >160/100 Hydroxychloroquine Sulfate 200 mg 08/20/19 10:00 08/31/19 10:00 Plaquenil PO Not Given QDAY COUNT INCLUDES THE [facility] Hydroxyzine HCl 50 mg 08/20/19 10:00 08/31/19 10:00 Atarax PO Not Given QDAY COUNT INCLUDES THE [facility] Levetiracetam 750 mg/ Dextrose 107.5 mls @ 400 mls/hr 08/26/19 12:30 08/31/19 22:57 IV 400 mls/hr Q12HR JOEL Administration Sodium Chloride 100 mls @ 999 mls/hr 08/30/19 08:45 Nacl 0.9% IV FAN PRN Hypotension Dextrose/Sodium Chloride 1,000 mls @ 42 mls/hr 08/31/19 15:00 08/31/19 15:19 D5ns IV 42 mls/hr DIRECT JOEL Administration Insulin Glargine 20 units 08/20/19 22:00 08/31/19 22:56 Lantus SUB-Q 20 units QHS JOEL Administration Insulin Glargine 6 units 08/29/19 13:12 08/31/19 09:01 Lantus SUB-Q 6 units QAMDIAB JOEL Administration Insulin Human Lispro 0 unit 08/20/19 11:30 08/31/19 22:57 Humalog SUB-Q 3 unit ACHS JOEL Administration Protocol Labetalol HCl 300 mg 08/20/19 10:00 08/31/19 23:00 Normodyne PO Not Given BID JOEL Lorazepam 1 mg 08/26/19 12:00 08/29/19 02:24 Ativan IV 1 mg TuThSa PRN Administration ANXIETY before dialysis Lorazepam 2 mg 08/26/19 11:30 08/31/19 15:17 Ativan IV 2 mg Q4H PRN Administration Seizures Losartan Potassium 50 mg 08/20/19 10:00 08/31/19 16:19 Cozaar PO Not Given QDAY COUNT INCLUDES THE [facility] Melatonin 5 mg 08/25/19 22:00 08/31/19 23:00 Melatonin PO Not Given QHS COUNT INCLUDES THE [facility] Methylprednisolone Sodium Succinate 20 mg 08/21/19 12:00 08/31/19 15:09 Solu-Medrol IV 20 mg DAILY JOEL Administration Metoclopramide HCl 10 mg 08/21/19 12:46 09/01/19 00:05 Reglan IV 10 mg Q6H PRN Administration Nausea And Vomiting Morphine Sulfate 2 mg 08/31/19 18:25 09/01/19 05:49 Morphine IV 2 mg Q4H PRN Administration Pain, Moderate (4-6) Mycophenolate Mofetil 500 mg 08/20/19 10:00 08/31/19 10:00 Cellcept PO Not Given QDAY COUNT INCLUDES THE [facility] Olanzapine 5 mg 08/26/19 22:00 08/31/19 23:00 Zyprexa Zydis PO Not Given HS COUNT INCLUDES THE [facility] Ondansetron HCl 4 mg 08/21/19 13:00 09/01/19 05:49 Zofran IV 4 mg Q4H PRN Administration Nausea And Vomiting Oxycodone/Acetaminophen 1 tab 08/20/19 09:00 08/24/19 04:47 Percocet 5/325 PO 1 tab Q8H PRN Administration Pain, Moderate (4-6) Pantoprazole Sodium 40 mg 08/26/19 10:00 08/31/19 10:00 Protonix PO Not Given DAILY COUNT INCLUDES THE [facility] Promethazine HCl 25 mg 08/21/19 12:46 Phenergan ME Q6H PRN Nausea And Vomiting Sevelamer Carbonate 800 mg 08/20/19 16:30 08/31/19 18:14 Renvela PO Not Given 0730,1630 COUNT INCLUDES THE [facility] Sodium Chloride 10 ml 08/20/19 10:00 08/31/19 23:00 Sodium Chloride Flush Syringe 10 Ml IV 10 ml BID JOEL Administration Sodium Chloride 10 ml 08/19/19 22:44 08/22/19 22:32 Sodium Chloride Flush Syringe 10 Ml IV 10 ml PRN PRN Administration LINE FLUSH
--- NOTE | 2019-09-01 10:52 | Gastroenterology Consultation ---
<YELITZA ESTRADA - Last Filed: 09/01/19 12:33> History of Present Illness - Reason for Consult Consult date: 09/01/19 worsening pancreatitis Requesting physician: NOHEMY AVILA - History of Present Illness Pateint is 29 yo female with PMH of lupus (nn plaquenil, cellcept and prednisone; immunocompromised host), ESRD on HD, chronic pain syndrome, chronic anemia and MRSA infection/E coli buttocks wound, whom is previously known to our service from a recent hospitalization (original consult 08/02/19) with severe nec rotizing pancreatitis (etiology unclear-possible sepsis vs medication induced; U/S with no gallstones; no ETOH abuse) who was discharged on TPN. The patient was discharged to home on 08/18 and was readmitted to the hospital on 08/19/19 due to inability of family to care for the patient. The patient today c/o increasing abdominal pain in the LUQ. +N/v today. TPN was continued by hospitalist however was discontinued and patient was started on a diet. Patient did not tolerate any PO diet. +fever 100.0 today. Past History Past Medical History: other (as per HPI) Past Surgical History: Other (left leg fracture, AV fistula, peripheral neuropathy) Social history: lives with family. denies: smoking, alcohol abuse Family history: hypertension Medications and Allergies Allergies Allergy/AdvReac Type Severity Reaction Status Date / Time lactose AdvReac Unknown Verified 07/29/19 08:16 Home Medications Medication Instructions Recorded Confirmed Last Taken Type ALBUTEROL NEB's [Proventil 0.083% 2.5 mg IH QID PRN 07/26/19 08/21/19 07/25/19 History NEBS] Labetalol HCl [Labetalol 300mg TAB] 300 mg PO Q12H 07/26/19 08/21/19 07/25/19 History Mirtazapine 7.5 mg PO QDAY 07/26/19 08/21/19 07/25/19 History Pantoprazole [Protonix TAB] 40 mg PO BID 07/26/19 08/21/19 08/21/19 15:56 Histor y Sevelamer HCl [Renagel] 800 mg PO BIDWM 07/26/19 08/21/19 07/25/19 History Acetaminophen [Acetaminophen TAB] 650 mg PO Q6H PRN tablet 08/18/19 08/21/19 Unknown Rx Cyanocobalamin (Vitamin B-12) 1,000 mcg PO QDAY #20 08/18/19 08/21/19 Unknown Rx [Vitamin B-12] Epoetin Mitch 20,000 Unit [Procrit] 20,000 unit SUB-Q FAN PRN vial 08/18/19 08/21/19 Unknown Rx Folic Acid [Folvite] 1 mg PO QDAY #30 08/18/19 08/21/19 Unknown Rx Gabapentin 300 mg PO 3XW #60 08/18/19 08/21/19 08/21/19 15:58 Rx Hydroxychloroquine [Plaquenil] 200 mg PO QDAY #30 08/18/19 08/21/19 Unknown Rx Insulin Glargine [Lantus VIAL] 20 units SUB-Q QHS #1 units 08/18/19 08/21/19 08/21/19 15:57 Rx Labetalol [Labetalol 200mg TAB] 300 mg PO BID #60 tablet 08/18/19 08/21/19 Unknown Rx Losartan [Cozaar] 50 mg PO QDAY #30 08/18/19 08/21/19 Unknown Rx Mycophenolate [Cellcept] 500 mg PO QDAY #30 08/18/19 08/21/19 08/21/19 15:56 Rx Pantoprazole [Protonix TAB] 40 mg PO BID #60 tablet 08/18/19 08/21/19 08/21/19 15:55 Rx Sevelamer Carbonate [Renvela] 800 mg PO 0730,1630 #30 tablet 08/18/19 08/21/19 08/21/19 15:56 Rx Total Parenteral Nutrition [TPN 12 ml IV DAILY@2000 ml 08/18/19 08/21/19 08/21/19 15:55 Rx Adult] hydrOXYzine HCL [Atarax] 50 mg PO QDAY #30 08/18/19 08/21/19 Unknown Rx levETIRAcetam [Keppra TAB] 500 mg PO BID #60 tablet 08/18/19 08/21/19 08/21/19 15:54 Rx oxyCODONE /ACETAMINOPHEN [Percocet 1 tab PO Q8H PRN #30 tablet 08/18/19 08/21/19 Unknown Rx 5/325 mg] predniSONE [Deltasone] 20 mg PO QDAY #30 08/18/19 08/21/19 Unknown Rx Active Meds: Active Medications Acetaminophen (Tylenol) 650 mg PO Q4H PRN PRN Reason: Pain MILD(1-3)/Fever >100.5/PORTER Acetaminophen (Tylenol) 650 mg SC Q6H PRN PRN Reason: Pain, Mild (1-3) Albuterol (Proventil) 2.5 mg IH QID PRN PRN Reason: Wheezing Clonidine HCl (Catapres-Tts Patch) 0.2 mg TD Th@1000 JOEL Cyanocobalamin (Vitamin B-12) 1,000 mcg PO QDAY [facility] Last Admin: 08/31/19 16:18 Dose: Not Given Documented by: Dextrose (D50w (25gm) Syringe) 0 ml IV Q30MIN PRN PRN Reason: Hypoglycemia Last Admin: 08/29/19 13:00 Dose: 20 ml Documented by: Diphenhydramine HCl (Benadryl) 25 mg IV Q6H PRN PRN Reason: Itching Last Admin: 09/01/19 02:08 Dose: 25 mg Documented by: Epoetin Mitch (Procrit) 20,000 unit SUB-Q FAN PRN PRN Reason: hemodialysis Last Admin: 08/27/19 22:00 Dose: 20,000 unit Documented by: Folic Acid (Folvite) 1 mg PO QDAY [facility] Last Admin: 08/31/19 10:00 Dose: Not Given Documented by: Hydralazine HCl (Apresoline) 10 mg IV Q4H PRN PRN Reason: BP >160/100 Last Admin: 09/01/19 06:00 Dose: 10 mg Documented by: Hydroxychloroquine Sulfate (Plaquenil) 200 mg PO QDAY [facility] Last Admin: 08/31/19 10:00 Dose: Not Given Documented by: Hydroxyzine HCl (Atarax) 50 mg PO QDAY [facility] Last Admin: 08/31/19 10:00 Dose: Not Given Documented by: Levetiracetam 750 mg/ Dextrose 107.5 mls @ 400 mls/hr IV Q12HR [facility] Last Admin: 08/31/19 22:57 Dose: 400 mls/hr Documented by: Sodium Chloride (Nacl 0.9%) 100 mls @ 999 mls/hr IV FAN PRN PRN Reason: Hypotension Dextrose/Sodium Chloride (D5ns) 1,000 mls @ 42 mls/hr IV DIRECT [facility] Last Admin: 08/31/19 15:19 Dose: 42 mls/hr Documented by: Insulin Glargine (Lantus) 20 units SUB-Q QHS [facility] Last Admin: 08/31/19 22:56 Dose: 20 units Documented by: Insulin Glargine (Lantus) 6 units SUB-Q QAMDIAB [facility] Last Admin: 08/31/19 09:01 Dose: 6 units Documented by: Insulin Human Lispro (Humalog) 0 unit SUB-Q ACHS [facility]; Protocol Last Admin: 08/31/19 22:57 Dose: 3 unit Documented by: Labetalol HCl (Normodyne) 300 mg PO BID [facility] Last Admin: 08/31/19 23:00 Dose: Not Given Documented by: Lorazepam (Ativan) 1 mg IV TuThSa PRN PRN Reason: ANXIETY before dialysis Last Admin: 08/29/19 02:24 Dose: 1 mg Documented by: Lorazepam (Ativan) 2 mg IV Q4H PRN PRN Reason: Seizures Last Admin: 08/31/19 15:17 Dose: 2 mg Documented by: Losartan Potassium (Cozaar) 50 mg PO QDAY [facility] Last Admin: 08/31/19 16:19 Dose: Not Given Documented by: Melatonin (Melatonin) 5 mg PO QHS [facility] Last Admin: 08/31/19 23:00 Dose: Not Given Documented by: Methylprednisolone Sodium Succinate (Solu-Medrol) 20 mg IV DAILY [facility] Last Admin: 09/01/19 10:37 Dose: 20 mg Documented by: Metoclopramide HCl (Reglan) 10 mg IV Q6H PRN PRN Reason: Nausea And Vomiting Last Admin: 09/01/19 00:05 Dose: 10 mg Documented by: Morphine Sulfate (Morphine) 2 mg IV Q4H PRN PRN Reason: Pain, Moderate (4-6) Last Admin: 09/01/19 05:49 Dose: 2 mg Documented by: Mycophenolate Mofetil (Cellcept) 500 mg PO QDAY [facility] Last Admin: 08/31/19 10:00 Dose: Not Given Documented by: Olanzapine (Zyprexa Zydis) 5 mg PO HS [facility] Last Admin: 08/31/19 23:00 Dose: Not Given Documented by: Ondansetron HCl (Zofran) 4 mg IV Q4H PRN PRN Reason: Nausea And Vomiting Last Admin: 09/01/19 05:49 Dose: 4 mg Documented by: Oxycodone/Acetaminophen (Percocet 5/325) 1 tab PO Q8H PRN PRN Reason: Pain, Moderate (4-6) Last Admin: 08/24/19 04:47 Dose: 1 tab Documented by: Pantoprazole Sodium (Protonix) 40 mg PO DAILY [facility] Last Admin: 08/31/19 10:00 Dose: Not Given Documented by: Promethazine HCl (Phenergan) 25 mg SC Q6H PRN PRN Reason: Nausea And Vomiting Sevelamer Carbonate (Renvela) 800 mg PO 0730,1630 [facility] Last Admin: 08/31/19 18:14 Dose: Not Given Documented by: Sodium Chloride (Sodium Chloride Flush Syringe 10 Ml) 10 ml IV BID [facility] Last Admin: 09/01/19 10:37 Dose: 10 ml Documented by: Sodium Chloride (Sodium Chloride Flush Syringe 10 Ml) 10 ml IV PRN PRN PRN Reason: LINE FLUSH Last Admin: 08/22/19 22:32 Dose: 10 ml Documented by: medications reviewed/updated as required Review of Systems - Review of Systems All systems: negative Gastrointestinal: abdominal pain, nausea, vomiting Exam - Constitutional Vital Signs: Temp Pulse Resp BP Pulse Ox 100.0 F H 132 H 24 167/100 100 09/01/19 04:52 09/01/19 06:00 09/01/19 05:49 09/01/19 06:00 09/01/19 04:52 General appearance: mild distress, other (somnolent) - Respiratory Respiratory effort: normal Respiratory: bilateral: diminished - Cardiovascular Rhythm: other (tachycardia) - Gastrointestinal General gastrointestinal: Present: soft, tender (+TTP), distended (slightly), normal bowel sounds - Neurologic Neurological: oriented to person - Labs CBC & Chem 7: 09/01/19 08:35 09/01/19 07:30 Lab Results: Laboratory Results - last 24 hr 08/31/19 08/31/19 08/31/19 12:18 17:03 22:20 WBC RBC Hgb Hct MCV MCH MCHC RDW Plt Count Add Manual Diff Total Counted Seg Neuts % (Manual) Band Neutrophils % Lymphocytes % (Manual) Reactive Lymphs % (Man) Monocytes % (Manual) Eosinophils % (Manual) Basophils % (Manual) Metamyelocytes % Myelocytes % Promyelocytes % Blast Cells % Nucleated RBC % Seg Neutrophils # Man Band Neutrophils # Lymphocytes # (Manual) Abs React Lymphs (Man) Monocytes # (Manual) Eosinophils # (Manual) Basophils # (Manual) Metamyelocytes # Myelocytes # Promyelocytes # Blast Cells # WBC Morphology Hypersegmented Neuts Hyposegmented Neuts Hypogranular Neuts Smudge Cells Toxic Granulation Toxic Vacuolation Dohle Bodies Pelger-Huet Anomaly Rose Rods Platelet Estimate Clumped Platelets Plt Clumps, EDTA Large Platelets Giant Platelets Platelet Satelliting Plt Morphology Comment RBC Morphology Dimorphic RBCs Polychromasia Hypochromasia Poikilocytosis Anisocytosis Microcytosis Macrocytosis Spherocytes Pappenheimer Bodies Sickle Cells Target Cells Tear Drop Cells Ovalocytes Helmet Cells Benavidez-Ramey Bodies [place] Rings Bk Cells Bite Cells Crenated Cell Elliptocytes Acanthocytes (Spur) Rouleaux Hemoglobin C Crystals Schistocytes Malaria parasites Dinesh Bodies Hem Pathologist Commnt Sodium Potassium Chloride Carbon Dioxide Anion Gap BUN Creatinine Estimated GFR BUN/Creatinine Ratio Glucose POC Glucose 199 H 118 H 203 H Calcium Phosphorus Magnesium 09/01/19 09/01/19 09/01/19 07:09 07:30 08:35 WBC 22.8 H RBC 3.52 L Hgb 9.4 L Hct 29.5 L MCV 84 MCH 27 L MCHC 32 RDW 18.3 H Plt Count 221 Add Manual Diff Complete Total Counted 100 Seg Neuts % (Manual) 98.0 H Band Neutrophils % 0 Lymphocytes % (Manual) 1.0 L Reactive Lymphs % (Man) 0 Monocytes % (Manual) 0 Eosinophils % (Manual) 0 Basophils % (Manual) 0 Metamyelocytes % 1.0 Myelocytes % 0 Promyelocytes % 0 Blast Cells % 0 Nucleated RBC % Not Reportable Seg Neutrophils # Man 22.3 H Band Neutrophils # 0.0 Lymphocytes # (Manual) 0.2 L Abs React Lymphs (Man) 0.0 Monocytes # (Manual) 0.0 Eosinophils # (Manual) 0.0 Basophils # (Manual) 0.0 Metamyelocytes # 0.2 Myelocytes # 0.0 Promyelocytes # 0.0 Blast Cells # 0.0 WBC Morphology Not Reportable Hypersegmented Neuts Not Reportable Hyposegmented Neuts Not Reportable Hypogranular Neuts Not Reportable Smudge Cells Not Reportable Toxic Granulation Not Reportable Toxic Vacuolation Not Reportable Dohle Bodies Not Reportable Pelger-Huet Anomaly Not Reportable Rose Rods Not Reportable Platelet Estimate Consistent w auto Clumped Platelets Not Reportable Plt Clumps, EDTA Not Reportable Large Platelets Rare Giant Platelets Not Reportable Platelet Satelliting Not Reportable Plt Morphology Comment Not Reportable RBC Morphology Not Reportable Dimorphic RBCs Not Reportable Polychromasia Not Reportable Hypochromasia Not Reportable Poikilocytosis Few Anisocytosis Few Microcytosis Not Reportable Macrocytosis Not Reportable Spherocytes Not Reportable Pappenheimer Bodies Not Reportable Sickle Cells Not Reportable Target Cells Not Reportable Tear Drop Cells Not Reportable Ovalocytes Rare Helmet Cells Not Reportable Benavidez-Ramey Bodies Not Reportable [place] Rings Not Reportable [place] Cells Not Reportable Bite Cells Not Reportable Crenated Cell Not Reportable Elliptocytes Not Reportable Acanthocytes (Spur) Not Reportable Rouleaux Not Reportable Hemoglobin C Crystals Not Reportable Schistocytes Not Reportable Malaria parasites Not Reportable Dinesh Bodies Not Reportable Hem Pathologist Commnt No Sodium 137 Potassium 4.0 Chloride 89.2 L Carbon Dioxide 22 Anion Gap 30 BUN 125 H Creatinine 7.1 H Estimated GFR 8 BUN/Creatinine Ratio 18 Glucose 426 H POC Glucose 362 H Calcium 9.0 Phosphorus 5.30 H Magnesium 1.70 Assessment and Plan 1.abdominal pain 2.N/V 3.necrotizing pancreatitis -temp 100 -WBC 22.8-trending up -H/H stable- no active signs of bleeding -repeat abd CT yesterday showed worsening pancreatitis with multiple developing pseudocysts (large LUQ peudocyst compressing on stomach) -surgery following with with no recommendations for surgical intervention at this time, but consult for IR placed for drainage of pseudocyst -Keep NPO and resume TPN -continue to trend labs and supportive care (IFV, pain control, antiemetics, etc.) -recommend ID consult for recommendations for abx therapy -will follow, however if patient continues to decline will need to be transferred to tertiary center for further management <DANA FRAZIER R - Last Filed: 09/01/19 15:04> Medications and Allergies Active Meds: Active Medications Acetaminophen (Tylenol) 650 mg PO Q4H PRN PRN Reason: Pain MILD(1-3)/Fever >100.5/PORTER Acetaminophen (Tylenol) 650 mg SC Q6H PRN PRN Reason: Pain, Mild (1-3) Albuterol (Proventil) 2.5 mg IH QID PRN PRN Reason: Wheezing Clonidine HCl (Catapres-Tts Patch) 0.2 mg TD Th@1000 [facility] Last Admin: 09/01/19 10:53 Dose: 0.2 mg Documented by: Cyanocobalamin (Vitamin B-12) 1,000 mcg PO QDAY [facility] Last Admin: 08/31/19 16:18 Dose: Not Given Documented by: Dextrose (D50w (25gm) Syringe) 0 ml IV Q30MIN PRN PRN Reason: Hypoglycemia Last Admin: 08/29/19 13:00 Dose: 20 ml Documented by: Diphenhydramine HCl (Benadryl) 25 mg IV Q6H PRN PRN Reason: Itching Last Admin: 09/01/19 02:08 Dose: 25 mg Documented by: Epoetin Mitch (Procrit) 20,000 unit SUB-Q FAN PRN PRN Reason: hemodialysis Last Admin: 08/27/19 22:00 Dose: 20,000 unit Documented by: Folic Acid (Folvite) 1 mg PO QDAY [facility] Last Admin: 09/01/19 10:00 Dose: Not Given Documented by: Hydralazine HCl (Apresoline) 10 mg IV Q4H PRN PRN Reason: BP >160/100 Last Admin: 09/01/19 06:00 Dose: 10 mg Documented by: Hydroxychloroquine Sulfate (Plaquenil) 200 mg PO QDAY [facility] Last Admin: 08/31/19 10:00 Dose: Not Given Documented by: Hydroxyzine HCl (Atarax) 50 mg PO QDAY [facility] Last Admin: 09/01/19 10:00 Dose: Not Given Documented by: Levetiracetam 750 mg/ Dextrose 107.5 mls @ 400 mls/hr IV Q12HR [facility] Last Admin: 09/01/19 10:00 Dose: 400 mls/hr Documented by: Sodium Chloride (Nacl 0.9%) 100 mls @ 999 mls/hr IV FAN PRN PRN Reason: Hypotension Dextrose/Sodium Chloride (D5ns) 1,000 mls @ 42 mls/hr IV DIRECT [facility] Last Admin: 08/31/19 15:19 Dose: 42 mls/hr Documented by: Amino Acids/Electrolytes/Dextrose (Tpn Adult) 1,560 mls @ 0 mls/hr IV DAILY@1999 [facility]; Protocol Stop: 09/02/19 08:01 Insulin Glargine (Lantus) 20 units SUB-Q QHS [facility] Last Admin: 08/31/19 22:56 Dose: 20 units Documented by: Insulin Glargine (Lantus) 6 units SUB-Q QAMDIAB [facility] Last Admin: 09/01/19 08:00 Dose: Not Given Documented by: Insulin Human Lispro (Humalog) 0 unit SUB-Q ACHS [facility]; Protocol Last Admin: 09/01/19 11:30 Dose: 6 unit Documented by: Labetalol HCl (Normodyne) 300 mg PO BID [facility] Last Admin: 09/01/19 11:11 Dose: 300 mg Documented by: Lorazepam (Ativan) 1 mg IV TuThSa PRN PRN Reason: ANXIETY before dialysis Last Admin: 08/29/19 02:24 Dose: 1 mg Documented by: Lorazepam (Ativan) 2 mg IV Q4H PRN PRN Reason: Seizures Last Admin: 08/31/19 15:17 Dose: 2 mg Documented by: Losartan Potassium (Cozaar) 50 mg PO QDAY [facility] Last Admin: 08/31/19 16:19 Dose: Not Given Documented by: Melatonin (Melatonin) 5 mg PO QHS [facility] Last Admin: 08/31/19 23:00 Dose: Not Given Documented by: Methylprednisolone Sodium Succinate (Solu-Medrol) 20 mg IV DAILY [facility] Last Admin: 09/01/19 10:37 Dose: 20 mg Documented by: Metoclopramide HCl (Reglan) 5 mg IV Q6H PRN PRN Reason: Nausea And Vomiting Morphine Sulfate (Morphine) 2 mg IV Q4H PRN PRN Reason: Pain, Moderate (4-6) Last Admin: 09/01/19 05:49 Dose: 2 mg Documented by: Mycophenolate Mofetil (Cellcept) 500 mg PO QDAY [facility] Last Admin: 08/31/19 10:00 Dose: Not Given Documented by: Olanzapine (Zyprexa Zydis) 5 mg PO HS [facility] Last Admin: 08/31/19 23:00 Dose: Not Given Documented by: Ondansetron HCl (Zofran) 4 mg IV Q4H PRN PRN Reason: Nausea And Vomiting Last Admin: 09/01/19 05:49 Dose: 4 mg Documented by: Oxycodone/Acetaminophen (Percocet 5/325) 1 tab PO Q8H PRN PRN Reason: Pain, Moderate (4-6) Last Admin: 08/24/19 04:47 Dose: 1 tab Documented by: Pantoprazole Sodium (Protonix) 40 mg IV QDAY [facility] Last Admin: 09/01/19 12:39 Dose: 40 mg Documented by: Promethazine HCl (Phenergan) 25 mg SC Q6H PRN PRN Reason: Nausea And Vomiting Sevelamer Carbonate (Renvela) 800 mg PO 0730,1630 [facility] Last Admin: 09/01/19 07:30 Dose: Not Given Documented by: Sodium Chloride (Sodium Chloride Flush Syringe 10 Ml) 10 ml IV BID [facility] Last Admin: 09/01/19 10:37 Dose: 10 ml Documented by: Sodium Chloride (Sodium Chloride Flush Syringe 10 Ml) 10 ml IV PRN PRN PRN Reason: LINE FLUSH Last Admin: 08/22/19 22:32 Dose: 10 ml Documented by: Exam - Constitutional Vital Signs: Temp Pulse Resp BP Pulse Ox 97.8 F 126 H 14 163/91 98 09/01/19 12:39 09/01/19 12:39 09/01/19 12:39 09/01/19 12:39 09/01/19 12:39 - Labs CBC & Chem 7: 09/01/19 08:35 09/01/19 07:30 Lab Results: Laboratory Results - last 24 hr 08/31/19 08/31/19 09/01/19 17:03 22:20 07:09 WBC RBC Hgb Hct MCV MCH MCHC RDW Plt Count Add Manual Diff Total Counted Seg Neuts % (Manual) Band Neutrophils % Lymphocytes % (Manual) Reactive Lymphs % (Man) Monocytes % (Manual) Eosinophils % (Manual) Basophils % (Manual) Metamyelocytes % Myelocytes % Promyelocytes % Blast Cells % Nucleated RBC % Seg Neutrophils # Man Band Neutrophils # Lymphocytes # (Manual) Abs React Lymphs (Man) Monocytes # (Manual) Eosinophils # (Manual) Basophils # (Manual) Metamyelocytes # Myelocytes # Promyelocytes # Blast Cells # WBC Morphology Hypersegmented Neuts Hyposegmented Neuts Hypogranular Neuts Smudge Cells Toxic Granulation Toxic Vacuolation Dohle Bodies Pelger-Huet Anomaly Rose Rods Platelet Estimate Clumped Platelets Plt Clumps, EDTA Large Platelets Giant Platelets Platelet Satelliting Plt Morphology Comment RBC Morphology Dimorphic RBCs Polychromasia Hypochromasia Poikilocytosis Anisocytosis Microcytosis Macrocytosis Spherocytes Pappenheimer Bodies Sickle Cells Target Cells Tear Drop Cells Ovalocytes Helmet Cells Benavidez-Ramey Bodies [place] Rings [place] Cells Bite Cells Crenated Cell Elliptocytes Acanthocytes (Spur) Rouleaux Hemoglobin C Crystals Schistocytes Malaria parasites Dinesh Bodies Hem Pathologist Commnt Sodium Potassium Chloride Carbon Dioxide Anion Gap BUN Creatinine Estimated GFR BUN/Creatinine Ratio Glucose POC Glucose 118 H 203 H 362 H Calcium Phosphorus Magnesium 09/01/19 09/01/19 09/01/19 07:30 08:35 11:27 WBC 22.8 H RBC 3.52 L Hgb 9.4 L Hct 29.5 L MCV 84 MCH 27 L MCHC 32 RDW 18.3 H Plt Count 221 Add Manual Diff Complete Total Counted 100 Seg Neuts % (Manual) 98.0 H Band Neutrophils % 0 Lymphocytes % (Manual) 1.0 L Reactive Lymphs % (Man) 0 Monocytes % (Manual) 0 Eosinophils % (Manual) 0 Basophils % (Manual) 0 Metamyelocytes % 1.0 Myelocytes % 0 Promyelocytes % 0 Blast Cells % 0 Nucleated RBC % Not Reportable Seg Neutrophils # Man 22.3 H Band Neutrophils # 0.0 Lymphocytes # (Manual) 0.2 L Abs React Lymphs (Man) 0.0 Monocytes # (Manual) 0.0 Eosinophils # (Manual) 0.0 Basophils # (Manual) 0.0 Metamyelocytes # 0.2 Myelocytes # 0.0 Promyelocytes # 0.0 Blast Cells # 0.0 WBC Morphology Not Reportable Hypersegmented Neuts Not Reportable Hyposegmented Neuts Not Reportable Hypogranular Neuts Not Reportable Smudge Cells Not Reportable Toxic Granulation Not Reportable Toxic Vacuolation Not Reportable Dohle Bodies Not Reportable Pelger-Huet Anomaly Not Reportable Rose Rods Not Reportable Platelet Estimate Consistent w auto Clumped Platelets Not Reportable Plt Clumps, EDTA Not Reportable Large Platelets Rare Giant Platelets Not Reportable Platelet Satelliting Not Reportable Plt Morphology Comment Not Reportable RBC Morphology Not Reportable Dimorphic RBCs Not Reportable Polychromasia Not Reportable Hypochromasia Not Reportable Poikilocytosis Few Anisocytosis Few Microcytosis Not Reportable Macrocytosis Not Reportable Spherocytes Not Reportable Pappenheimer Bodies Not Reportable Sickle Cells Not Reportable Target Cells Not Reportable Tear Drop Cells Not Reportable Ovalocytes Rare Helmet Cells Not Reportable Benavidez-Ramey Bodies Not Reportable [place] Rings Not Reportable [place] Cells Not Reportable Bite Cells Not Reportable Crenated Cell Not Reportable Elliptocytes Not Reportable Acanthocytes (Spur) Not Reportable Rouleaux Not Reportable Hemoglobin C Crystals Not Reportable Schistocytes Not Reportable Malaria parasites Not Reportable Dinesh Bodies Not Reportable Hem Pathologist Commnt No Sodium 137 Potassium 4.0 Chloride 89.2 L Carbon Dioxide 22 Anion Gap 30 BUN 125 H Creatinine 7.1 H Estimated GFR 8 BUN/Creatinine Ratio 18 Glucose 426 H POC Glucose 325 H Calcium 9.0 Phosphorus 5.30 H Magnesium 1.70 Assessment and Plan Pt seen and examined. Chart reviewed. Pt with severe SLE, followed by Rheum at [place], on steroids and Cellcept. Pancreatitis of unclear etiology, but could be autoimmune. In with necrotizing pancreatitis with enlarging fluid collection, and now elevated WBC. Worrisome for infection involving necrosis or fluid collection. Agree with drainage for culture. Would give empiric abx. Consider transfer to tertiary facility if infected, as may need debridement, etc.
--- NOTE | 2019-09-01 11:53 | Consultation ---
History of Present Illness Consult date: 09/01/19 Reason for consult: abdominal pain Chief complaint: pancreatitis - History of present illness History of present illness: 49 yo F with hx of lupus, ESRD, recent hospitalization with severe necrotizing pancreatitis who was discharged on TPN. The patient was discharged to home on 08/18 and was readmitted to the hospital on 08/19/19 due to inability of family to care for the patient. The patient today c/o increasing abdominal pain in the LUQ. +N/v today. TPN was continued by hospitalist however was discontinued and patient was started on a diet. Patient did not tolerate any PO diet. +fever 100.0 today. Past History Past Medical History: DVT, ESRD, other (Lupus, necrotizing pancreatitis) Past Surgical History: Other (AV Fistula left arm) Social history: lives with family Family history: no significant family history Medications and Allergies Allergies Allergy/AdvReac Type Severity Reaction Status Date / Time lactose AdvReac Unknown Verified 07/29/19 08:16 Home Medications Medication Instructions Recorded Confirmed Last Taken Type ALBUTEROL NEB's [Proventil 0.083% 2.5 mg IH QID PRN 07/26/19 08/21/19 07/25/19 History NEBS] Labetalol HCl [Labetalol 300mg TAB] 300 mg PO Q12H 07/26/19 08/21/19 07/25/19 History Mirtazapine 7.5 mg PO QDAY 07/26/19 08/21/19 07/25/19 History Pantoprazole [Protonix TAB] 40 mg PO BID 07/26/19 08/21/19 08/21/19 15:56 History Sevelamer HCl [Renagel] 800 mg PO BIDWM 07/26/19 08/21/19 07/25/19 History Acetaminophen [Acetaminophen TAB] 650 mg PO Q6H PRN tablet 08/18/19 08/21/19 Unknown Rx Cyanocobalamin (Vitamin B-12) 1,000 mcg PO QDAY #20 08/18/19 08/21/19 Unknown Rx [Vitamin B-12] Epoetin Mitch 20,000 Unit [Procrit] 20,000 unit SUB-Q FAN PRN vial 08/18/19 08/21/19 Unknown Rx Folic Acid [Folvite] 1 mg PO QDAY #30 08/18/19 08/21/19 Unknown Rx Gabapentin 300 mg PO 3XW #60 08/18/19 08/21/19 08/21/19 15:58 Rx Hydroxychloroquine [Plaquenil] 200 mg PO QDAY #30 08/18/19 08/21/19 Unknown Rx Insulin Glargine [Lantus VIAL] 20 units SUB-Q QHS #1 units 08/18/19 08/21/19 08/21/19 15:57 Rx Labetalol [Labetalol 200mg TAB] 300 mg PO BID #60 tablet 08/18/19 08/21/19 Unknown Rx Losartan [Cozaar] 50 mg PO QDAY #30 08/18/19 08/21/19 Unknown Rx Mycophenolate [Cellcept] 500 mg PO QDAY #30 08/18/19 08/21/19 08/21/19 15:56 Rx Pantoprazole [Protonix TAB] 40 mg PO BID #60 tablet 08/18/19 08/21/19 08/21/19 15:55 Rx Sevelamer Carbonate [Renvela] 800 mg PO 0730,1630 #30 tablet 08/18/19 08/21/19 08/21/19 15:56 Rx Total Parenteral Nutrition [TPN 12 ml IV DAILY@2000 ml 08/18/19 08/21/19 08/21/19 15:55 Rx Adult] hydrOXYzine HCL [Atarax] 50 mg PO QDAY #30 08/18/19 08/21/19 Unknown Rx levETIRAcetam [Keppra TAB] 500 mg PO BID #60 tablet 08/18/19 08/21/19 08/21/19 15:54 Rx oxyCODONE /ACETAMINOPHEN [Percocet 1 tab PO Q8H PRN #30 tablet 08/18/19 08/21/19 Unknown Rx 5/325 mg] predniSONE [Deltasone] 20 mg PO QDAY #30 08/18/19 08/21/19 Unknown Rx Active Meds: Active Medications Acetaminophen (Tylenol) 650 mg PO Q4H PRN PRN Reason: Pain MILD(1-3)/Fever >100.5/PORTER Acetaminophen (Tylenol) 650 mg ME Q6H PRN PRN Reason: Pain, Mild (1-3) Albuterol (Proventil) 2.5 mg IH QID PRN PRN Reason: Wheezing Clonidine HCl (Catapres-Tts Patch) 0.2 mg TD Th@1000 [facility] Last Admin: 09/01/19 10:53 Dose: 0.2 mg Documented by: Cyanocobalamin (Vitamin B-12) 1,000 mcg PO QDAY [facility] Last Admin: 08/31/19 16:18 Dose: Not Given Documented by: Dextrose (D50w (25gm) Syringe) 0 ml IV Q30MIN PRN PRN Reason: Hypoglycemia Last Admin: 08/29/19 13:00 Dose: 20 ml Documented by: Diphenhydramine HCl (Benadryl) 25 mg IV Q6H PRN PRN Reason: Itching Last Admin: 09/01/19 02:08 Dose: 25 mg Documented by: Epoetin Mitch (Procrit) 20,000 unit SUB-Q FAN PRN PRN Reason: hemodialysis Last Admin: 08/27/19 22:00 Dose: 20,000 unit Documented by: Folic Acid (Folvite) 1 mg PO QDAY [facility] Last Admin: 08/31/19 10:00 Dose: Not Given Documented by: Hydralazine HCl (Apresoline) 10 mg IV Q4H PRN PRN Reason: BP >160/100 Last Admin: 09/01/19 06:00 Dose: 10 mg Documented by: Hydroxychloroquine Sulfate (Plaquenil) 200 mg PO QDAY [facility] Last Admin: 08/31/19 10:00 Dose: Not Given Documented by: Hydroxyzine HCl (Atarax) 50 mg PO QDAY [facility] Last Admin: 08/31/19 10:00 Dose: Not Given Documented by: Levetiracetam 750 mg/ Dextrose 107.5 mls @ 400 mls/hr IV Q12HR [facility] Last Admin: 08/31/19 22:57 Dose: 400 mls/hr Documented by: Sodium Chloride (Nacl 0.9%) 100 mls @ 999 mls/hr IV FAN PRN PRN Reason: Hypotension Dextrose/Sodium Chloride (D5ns) 1,000 mls @ 42 mls/hr IV DIRECT [facility] Last Admin: 08/31/19 15:19 Dose: 42 mls/hr Documented by: Amino Acids/Electrolytes/Dextrose (Tpn Adult) 1,560 mls @ 0 mls/hr IV DAILY@2000 [facility]; Protocol Stop: 09/02/19 08:01 Insulin Glargine (Lantus) 20 units SUB-Q QHS [facility] Last Admin: 08/31/19 22:56 Dose: 20 units Documented by: Insulin Glargine (Lantus) 6 units SUB-Q QAMDIAB [facility] Last Admin: 08/31/19 09:01 Dose: 6 units Documented by: Insulin Human Lispro (Humalog) 0 unit SUB-Q ACHS [facility]; Protocol Last Admin: 09/01/19 07:30 Dose: Not Given Documented by: Labetalol HCl (Normodyne) 300 mg PO BID [facility] Last Admin: 09/01/19 11:11 Dose: 300 mg Documented by: Lorazepam (Ativan) 1 mg IV TuThSa PRN PRN Reason: ANXIETY before dialysis Last Admin: 08/29/19 02:24 Dose: 1 mg Documented by: Lorazepam (Ativan) 2 mg IV Q4H PRN PRN Reason: Seizures Last Admin: 08/31/19 15:17 Dose: 2 mg Documented by: Losartan Potassium (Cozaar) 50 mg PO QDAY [facility] Last Admin: 08/31/19 16:19 Dose: Not Given Documented by: Melatonin (Melatonin) 5 mg PO QHS [facility] Last Admin: 08/31/19 23:00 Dose: Not Given Documented by: Methylprednisolone Sodium Succinate (Solu-Medrol) 20 mg IV DAILY [facility] Last Admin: 09/01/19 10:37 Dose: 20 mg Documented by: Metoclopramide HCl (Reglan) 10 mg IV Q6H PRN PRN Reason: Nausea And Vomiting Last Admin: 09/01/19 00:05 Dose: 10 mg Documented by: Morphine Sulfate (Morphine) 2 mg IV Q4H PRN PRN Reason: Pain, Moderate (4-6) Last Admin: 09/01/19 05:49 Dose: 2 mg Documented by: Mycophenolate Mofetil (Cellcept) 500 mg PO QDAY [facility] Last Admin: 08/31/19 10:00 Dose: Not Given Documented by: Olanzapine (Zyprexa Zydis) 5 mg PO [facility] Last Admin: 08/31/19 23:00 Dose: Not Given Documented by: Ondansetron HCl (Zofran) 4 mg IV Q4H PRN PRN Reason: Nausea And Vomiting Last Admin: 10/31/19 05:49 Dose: 4 mg Documented by: Oxycodone/Acetaminophen (Percocet 5/325) 1 tab PO Q8H PRN PRN Reason: Pain, Moderate (4-6) Last Admin: 08/24/19 04:47 Dose: 1 tab Documented by: Pantoprazole Sodium (Protonix) 40 mg PO DAILY [facility] Last Admin: 08/31/19 10:00 Dose: Not Given Documented by: Promethazine HCl (Phenergan) 25 mg ME Q6H PRN PRN Reason: Nausea And Vomiting Sevelamer Carbonate (Renvela) 800 mg PO 0730,1630 [facility] Last Admin: 08/31/19 18:14 Dose: Not Given Documented by: Sodium Chloride (Sodium Chloride Flush Syringe 10 Ml) 10 ml IV BID [facility] Last Admin: 09/01/19 10:37 Dose: 10 ml Documented by: Sodium Chloride (Sodium Chloride Flush Syringe 10 Ml) 10 ml IV PRN PRN PRN Reason: LINE FLUSH Last Admin: 08/22/19 22:32 Dose: 10 ml Documented by: Review of Systems All systems: negative (10 pt ROS performed and negative except for that listed in HPI) Exam Vital Signs Pulse Resp Pulse Ox 104 H 14 96 08/19/19 18:22 08/19/19 18:22 08/19/19 18:22 Narrative exam: Gen: Awake and alert. Mild distress due to abdominal pain ENT: no scleral icterus or conjunctival pallor CV: S1, S2+. Tachy Resp: even and unlabored Abd: soft, +diffuse TTP with fullness/firmness in the LUQ Results - Labs 09/01/19 08:35 09/01/19 07:30 Abnormal lab results 08/31/19 08/31/19 08/31/19 Range/Units 12:18 17:03 22:20 WBC (4.5-11.0) K/mm3 RBC (3.65-5.03) M/mm3 Hgb (10.1-14.3) gm/dl Hct (30.3-42.9) % MCH (28-32) pg RDW (13.2-15.2) % Seg Neuts % (Manual) (40.0-70.0) % Lymphocytes % (Manual) (13.4-35.0) % Seg Neutrophils # Man (1.8-7.7) K/mm3 Lymphocytes # (Manual) (1.2-5.4) K/mm3 Chloride (98-107) mmol/L BUN (7-17) mg/dL Creatinine (0.7-1.2) mg/dL Glucose (65-100) mg/dL POC Glucose 199 H 118 H 203 H (70-105) Phosphorus (2.5-4.5) mg/dL 09/01/19 09/01/19 09/01/19 Range/Units 07:09 07:30 08:35 WBC 22.8 H (4.5-11.0) K/mm3 RBC 3.52 L (3.65-5.03) M/mm3 Hgb 9.4 L (10.1-14.3) gm/dl Hct 29.5 L (30.3-42.9) % MCH 27 L (28-32) pg RDW 18.3 H (13.2-15.2) % Seg Neuts % (Manual) 98.0 H (40.0-70.0) % Lymphocytes % (Manual) 1.0 L (13.4-35.0) % Seg Neutrophils # Man 22.3 H (1.8-7.7) K/mm3 Lymphocytes # (Manual) 0.2 L (1.2-5.4) K/mm3 Chloride 89.2 L (98-107) mmol/L BUN 125 H (7-17) mg/dL Creatinine 7.1 H (0.7-1.2) mg/dL Glucose 426 H (65-100) mg/dL POC Glucose 362 H (70-105) Phosphorus 5.30 H (2.5-4.5) mg/dL 09/01/19 Range/Units 11:27 WBC (4.5-11.0) K/mm3 RBC (3.65-5.03) M/mm3 Hgb (10.1-14.3) gm/dl Hct (30.3-42.9) % MCH (28-32) pg RDW (13.2-15.2) % Seg Neuts % (Manual) (40.0-70.0) % Lymphocytes % (Manual) (13.4-35.0) % Seg Neutrophils # Man (1.8-7.7) K/mm3 Lymphocytes # (Manual) (1.2-5.4) K/mm3 Chloride (98-107) mmol/L BUN (7-17) mg/dL Creatinine (0.7-1.2) mg/dL Glucose (65-100) mg/dL POC Glucose 325 H (70-105) Phosphorus (2.5-4.5) mg/dL Diabetes panel 09/01/19 Range/Units 07:30 Sodium 137 (137-145) mmol/L Potassium 4.0 (3.6-5.0) mmol/L Chloride 89.2 L (98-107) mmol/L Carbon Dioxide 22 (22-30) mmol/L BUN 125 H (7-17) mg/dL Creatinine 7.1 H (0.7-1.2) mg/dL Glucose 426 H (65-100) mg/dL Calcium 9.0 (8.4-10.2) mg/dL Calcium panel 09/01/19 Range/Units 07:30 Calcium 9.0 (8.4-10.2) mg/dL Phosphorus 5.30 H (2.5-4.5) mg/dL Pituitary panel 09/01/19 Range/Units 07:30 Sodium 137 (137-145) mmol/L Potassium 4.0 (3.6-5.0) mmol/L Chloride 89.2 L (98-107) mmol/L Carbon Dioxide 22 (22-30) mmol/L BUN 125 H (7-17) mg/dL Creatinine 7.1 H (0.7-1.2) mg/dL Glucose 426 H (65-100) mg/dL Calcium 9.0 (8.4-10.2) mg/dL Adrenal panel 09/01/19 Range/Units 07:30 Sodium 137 (137-145) mmol/L Potassium 4.0 (3.6-5.0) mmol/L Chloride 89.2 L (98-107) mmol/L Carbon Dioxide 22 (22-30) mmol/L BUN 125 H (7-17) mg/dL Creatinine 7.1 H (0.7-1.2) mg/dL Glucose 426 H (65-100) mg/dL Calcium 9.0 (8.4-10.2) mg/dL - Imaging CT scan - abdomen: report reviewed, image reviewed CT scan - pelvis: report reviewed, image reviewed Assessment and Plan 29 yo F with 1. abd pain 2. large immature pseudocysts 3. hx of necrotizing pancreatitis Plan: 1. Multiple developing pseudocysts. Large LUQ pseudocyst compressing on stomach likely leading to symptoms of n/v. Pseudocysts are immature and are not appropriate for surgical intervention at this time. Recommend IR consult for drainage of pseudocyst, would not leave indwelling drain if possible. 2. insert NGT and keep to [facility] 3. NPO 4. resume TPN - will need TPN indefinitely at this time as patient will need to be kept NPO 5. IVF 6. prn nausea control 7. prn pain control 8. Gi consulted D/w Dr. Barrett. Thank you, please call with questions.
[2019-09-01] MEDS: PANTOPRAZOLE 40 MG INJ IV SCH (12:39)
--- NOTE | 2019-09-01 13:26 | Progress Note ---
Assessment and Plan Ssked to reevaluate pt due to tachycardia, pt noted to be in sinus tachycardia this AM with HR 120s - 160s. pt has been refusing some PO mediations, including labetalol. D/w pt and she eventually agreed to take labetalol although she may not be able to consistently tolerate PO meds in setting of multiple GI issues. Cont to monitor on telemetry. Consider IV lopressor if necessary to optimize HR. Pt to tx to telemetry floor per Dr. Barrett. The patient has been seen in conjunction with Dr. Velasquez who agrees with the assessment and plan of care. - Patient Problems (1) Altered mental status Current Visit: Yes Status: Acute Qualifiers: Altered mental status type: unspecified Qualified Code(s): R41.82 - Altered mental status, unspecified (2) End-stage renal disease needing dialysis Current Visit: Yes Status: Chronic (3) Hypoalbuminemia Current Visit: Yes Status: Chronic (4) NSTEMI (non-ST elevated myocardial infarction) Current Visit: Yes Status: Acute Plan to address problem: Type 2 (5) On total parenteral nutrition (TPN) Current Visit: Yes Status: Acute (6) Anemia of chronic disease Current Visit: Yes Status: Chronic (7) Acute metabolic encephalopathy Current Visit: No Status: Acute (8) Hyperkalemia Current Visit: No Status: Acute (9) Malnutrition compromising bodily function Current Visit: No Status: Acute (10) Pancreatitis Current Visit: No Status: Acute Qualifiers: Chronicity: acute Acute pancreatitis complication: unspecified (11) Seizure Current Visit: No Status: Acute (12) Hypertension Current Visit: No Status: Chronic (13) Lupus Current Visit: No Status: Chronic Subjective Date of service: 09/01/19 Principal diagnosis: anbl trop Interval history: asked to reevaluate pt due to tachycardia, pt noted to be in sinus tachycardia this AM with HR 120s - 160s. pt has been refusing some PO mediations, including labetalol. Objective Last Vital Signs Temp 97.8 F 09/01/19 12:39 Pulse 126 H 09/01/19 12:39 Resp 14 09/01/19 12:39 BP 163/91 09/01/19 12:39 Pulse Ox 98 09/01/19 12:39 - Physical Examination General: Cachectic, Other HEENT: Positive: PERRL Neck: Positive: neck supple, trachea midline, Other Cardiac: Positive: Regular Rhythm, S1/S2, Tachycardia Lungs: Positive: Decreased Breath Sounds Neuro: Positive: Other (confused ) Abdomen: Positive: Unremarkable Skin: Positive: Wound (circular open wounds on right arm and forehead ) Musculoskeletal: Decreased Range of Motion (BLE), other Extremities: Present: upper extr. pulses (2+), lower extr. pulses (2+) - Labs and Meds CBC 09/01/19 Range/Units 08:35 WBC 22.8 H (4.5-11.0) K/mm3 RBC 3.52 L (3.65-5.03) M/mm3 Hgb 9.4 L (10.1-14.3) gm/dl Hct 29.5 L (30.3-42.9) % Plt Count 221 (140-440) K/mm3 Comprehensive Metabolic Panel 09/01/19 Range/Units 07:30 Sodium 137 (137-145) mmol/L Potassium 4.0 (3.6-5.0) mmol/L Chloride 89.2 L (98-107) mmol/L Carbon Dioxide 22 (22-30) mmol/L BUN 125 H (7-17) mg/dL Creatinine 7.1 H (0.7-1.2) mg/dL Glucose 426 H (65-100) mg/dL Calcium 9.0 (8.4-10.2) mg/dL - Imaging and Cardiology Echo: report reviewed (EF 55-60%, mild LVH, abnormal diastolic function, mild MR, mild to Mod TR, RVSP 41mmHg, minimal pericardial effusion. ) - Telemetry EKG Rhythm: Sinus Tachycardia Chamber hypertrophy or enlargement: left ventricular hypertro
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
[2019-09-01] MEDS ORDERED: SODIUM CHLORIDE 0.9% 100 ML IV PRN (19:40)
[2019-09-01] MEDS ORDERED: TOTAL PARENTERAL NUTRITION 1,560 ML IV SCH (20:00)
[2019-09-01] MEDS: MELATONIN 5 MG TAB PO SCH (21:50)
[2019-09-01] MEDS: OLANzapine ZYDIS 5 MG TAB PO SCH (21:50)
[2019-09-01] MEDS: D5W/0.9% NACL 1,000 ML IV SCH (23:09)
[2019-09-02] MEDS: MORPHINE 2 MG/1 ML INJ IV PRN ×2 (05:08→21:17)
[2019-09-02] MEDS: INSULIN LISPRO 100 UNIT/ML SUB-Q SCH ×3 (07:17→20:47)
--- NOTE | 2019-09-02 08:57 | Progress Note ---
Assessment and Plan 1. ESRD: On maintenance hemodialysis three times a week, TTS schedule. Last dialyzed 3 days ago. Patient again refused HD today. 2. FEN: Hyperkalemia, improved. Metabolic acidosis, improved. Monitor lytes. 3. Anemia: Epogen with HD. S/p PRBC. 4. Seizures: On Keppra. 5. Metabolic encephalopathy. 6. Acute pancreatitis: CT abdomen showed worsening pancreatitis. Gen. Surgery recommended pancreatic drain, but pt refused. On PPN / TPN. 7. Tachycardia: Cardiology consulted. 8. History of lupus: On Solumedrol. Patient is not taking any of the pills. 9. Hyperglycemia. 10. Psychosis. 11. Deconditioning. Examination: General appearance: well-developed, appears stated age, not in distress HEENT: ATNC, BORA Neck: trachea midline Respiratory: Clear to Ascultation Heart: regular, S1S2, no murmur Gastrointestinal: soft, distended, diffuse tenderness noted, normoactive bowel sound Integumentary: no rash, warm and dry Neurologic: alert, follows some command, answers questions, confusion noted Musculoskeletal: no edema Hemodialysis access: L arm AVG Subjective Date of service: 09/02/19 Principal diagnosis: anbl trop Interval history: Patient was seen and examined at the bedside. RN at the bedside. Patient continues to have diffuse abdominal pain. Patient was transferred to ICU. Continues to refuse treatments. Objective - Vital Signs Vital signs: Vital Signs - 12hr 09/01/19 09/01/19 09/02/19 21:49 22:00 00:00 Temperature 98.2 F Pulse Rate 101 H 87 Pulse Rate [ 105 H 102 H From Monitor] Respiratory 28 H 24 Rate Blood Pressure 108/58 O2 Sat by Pulse 100 100 Oximetry 09/02/19 09/02/19 04:00 05:08 Temperature 98.2 F Pulse Rate 107 H Pulse Rate [ 107 H From Monitor] Respiratory 29 H 23 Rate Blood Pressure O2 Sat by Pulse 98 Oximetry - Lab 09/02/19 09:15 09/02/19 09:15 Most recent lab results Calcium 9.0 mg/dL (8.4-10.2) 09/01/19 07:30 Phosphorus 5.30 mg/dL (2.5-4.5) H 09/01/19 07:30 Magnesium 1.70 mg/dL (1.7-2.3) 09/01/19 07:30 Medications & Allergies - Medications Allergies/Adverse Reactions: Allergies lactose Adverse Reaction (Verified 07/29/19 08:16) Unknown Home Medications: Home Medications Medication Instructions Recorded Confirmed Last Taken Type ALBUTEROL NEB's [Proventil 0.083% 2.5 mg IH QID PRN 07/26/19 08/21/19 07/25/19 History NEBS] Labetalol HCl [Labetalol 300mg TAB] 300 mg PO Q12H 07/26/19 08/21/19 07/25/19 History Mirtazapine 7.5 mg PO QDAY 07/26/19 08/21/19 07/25/19 History Pantoprazole [Protonix TAB] 40 mg PO BID 07/26/19 08/21/19 08/21/19 15:56 History Sevelamer HCl [Renagel] 800 mg PO BIDWM 07/26/19 08/21/19 07/25/19 History Acetaminophen [Acetaminophen TAB] 650 mg PO Q6H PRN tablet 08/18/19 08/21/19 Unknown Rx Cyanocobalamin (Vitamin B-12) 1,000 mcg PO QDAY #20 08/18/19 08/21/19 Unknown Rx [Vitamin B-12] Epoetin Mitch 20,000 Unit [Procrit] 20,000 unit SUB-Q FAN PRN vial 08/18/19 08/21/19 Unknown Rx Folic Acid [Folvite] 1 mg PO QDAY #30 08/18/19 08/21/19 Unknown Rx Gabapentin 300 mg PO 3XW #60 08/18/19 08/21/19 08/21/19 15:58 Rx Hydroxychloroquine [Plaquenil] 200 mg PO QDAY #30 08/18/19 08/21/19 Unknown Rx Insulin Glargine [Lantus VIAL] 20 units SUB-Q QHS #1 units 08/18/19 08/21/19 08/21/19 15:57 Rx Labetalol [Labetalol 200mg TAB] 300 mg PO BID #60 tablet 08/18/19 08/21/19 Unknown Rx Losartan [Cozaar] 50 mg PO QDAY #30 08/18/19 08/21/19 Unknown Rx Mycophenolate [Cellcept] 500 mg PO QDAY #30 08/18/19 08/21/19 08/21/19 15:56 Rx Pantoprazole [Protonix TAB] 40 mg PO BID #60 tablet 08/18/19 08/21/19 08/21/19 15:55 Rx Sevelamer Carbonate [Renvela] 800 mg PO 0730,1630 #30 tablet 08/18/19 08/21/19 08/21/19 15:56 Rx Total Parenteral Nutrition [TPN 12 ml IV DAILY@2000 ml 08/18/19 08/21/19 08/21/19 15:55 Rx Adult] hydrOXYzine HCL [Atarax] 50 mg PO QDAY #30 08/18/19 08/21/19 Unknown Rx levETIRAcetam [Keppra TAB] 500 mg PO BID #60 tablet 08/18/19 08/21/19 08/21/19 15:54 Rx oxyCODONE /ACETAMINOPHEN [Percocet 1 tab PO Q8H PRN #30 tablet 08/18/19 08/21/19 Unknown Rx 5/325 mg] predniSONE [Deltasone] 20 mg PO QDAY #30 08/18/19 08/21/19 Unknown Rx Active Medications: Generic Name Dose Route Start Last Admin Trade Name Freq PRN Reason Stop Dose Admin Acetaminophen 650 mg 08/19/19 22:44 Tylenol PO Q4H PRN Pain MILD(1-3)/Fever >100.5/PORTER Acetaminophen 650 mg 08/26/19 13:00 Tylenol NV Q6H PRN Pain, Mild (1-3) Albuterol 2.5 mg 08/20/19 09:00 Proventil IH QID PRN Wheezing Clonidine HCl 0.2 mg 09/01/19 10:00 09/01/19 10:53 Catapres-Tts Patch TD 0.2 mg Th@1000 JOEL Administration Cyanocobalamin 1,000 mcg 08/20/19 10:00 09/01/19 10:00 Vitamin B-12 PO Not Given QDAY JOEL Dextrose 0 ml 08/19/19 22:43 08/29/19 13:00 D50w (25gm) Syringe IV 20 ml Q30MIN PRN Administration Hypoglycemia Diphenhydramine HCl 25 mg 08/22/19 22:22 09/01/19 02:08 Benadryl IV 25 mg Q6H PRN Administration Itching Epoetin Mitch 20,000 unit 08/20/19 09:17 08/27/19 22:00 Procrit SUB-Q 20,000 unit FAN PRN Administration hemodialysis Folic Acid 1 mg 08/20/19 10:00 09/01/19 10:00 Folvite PO Not Given QDAY [facility] Hydralazine HCl 10 mg 08/21/19 13:00 09/01/19 06:00 Apresoline IV 10 mg Q4H PRN Administration BP >160/100 Hydroxychloroquine Sulfate 200 mg 08/20/19 10:00 09/01/19 10:00 Plaquenil PO Not Given QDAY [facility] Hydroxyzine HCl 50 mg 08/20/19 10:00 09/01/19 10:00 Atarax PO Not Given QDAY [facility] Levetiracetam 750 mg/ Dextrose 107.5 mls @ 400 mls/hr 08/26/19 12:30 09/01/19 22:09 IV 400 mls/hr Q12HR JOEL Administration Dextrose/Sodium Chloride 1,000 mls @ 42 mls/hr 08/31/19 15:00 09/01/19 23:09 D5ns IV 42 mls/hr DIRECT JOEL Administration Sodium Chloride 100 mls @ 999 mls/hr 09/01/19 19:40 Nacl 0.9% IV FAN PRN Hypotension Insulin Glargine 20 units 08/20/19 22:00 09/01/19 23:51 Lantus SUB-Q 20 units QHS JOEL Administration Insulin Glargine 6 units 08/29/19 13:12 09/01/19 08:00 Lantus SUB-Q Not Given QAMDIAB [facility] Insulin Human Lispro 0 unit 08/20/19 11:30 09/02/19 07:17 Humalog SUB-Q 8 unit ACHS JOEL Administration Protocol Labetalol HCl 300 mg 08/20/19 10:00 09/01/19 21:49 Normodyne PO Not Given BID JOEL Lorazepam 1 mg 08/26/19 12:00 08/29/19 02:24 Ativan IV 1 mg TuThSa PRN Administration ANXIETY before dialysis Lorazepam 2 mg 08/26/19 11:30 08/31/19 15:17 Ativan IV 2 mg Q4H PRN Administration Seizures Losartan Potassium 50 mg 08/20/19 10:00 09/01/19 10:00 Cozaar PO Not Given QDAY [facility] Melatonin 5 mg 08/25/19 22:00 09/01/19 21:50 Melatonin PO Not Given QHS [facility] Methylprednisolone Sodium Succinate 20 mg 08/21/19 12:00 09/01/19 10:37 Solu-Medrol IV 20 mg DAILY JOEL Administration Metoclopramide HCl 5 mg 09/01/19 13:00 Reglan IV Q6H PRN Nausea And Vomiting Metoprolol Tartrate 5 mg 09/01/19 18:48 Metoprolol IV Q6HR PRN Hypertension Morphine Sulfate 2 mg 08/31/19 18:25 09/02/19 05:08 Morphine IV 2 mg Q4H PRN Administration Pain, Moderate (4-6) Mycophenolate Mofetil 500 mg 08/20/19 10:00 09/01/19 10:00 Cellcept PO Not Given QDAY [facility] Olanzapine 5 mg 08/26/19 22:00 09/01/19 21:50 Zyprexa Zydis PO Not Given HS [facility] Ondansetron HCl 4 mg 08/21/19 13:00 09/01/19 05:49 Zofran IV 4 mg Q4H PRN Administration Nausea And Vomiting Oxycodone/Acetaminophen 1 tab 08/20/19 09:00 08/24/19 04:47 Percocet 5/325 PO 1 tab Q8H PRN Administration Pain, Moderate (4-6) Pantoprazole Sodium 40 mg 09/01/19 12:30 09/01/19 12:39 Protonix IV 40 mg QDAY JOEL Administration Promethazine HCl 25 mg 08/21/19 12:46 Phenergan NV Q6H PRN Nausea And Vomiting Sevelamer Carbonate 800 mg 08/20/19 16:30 09/01/19 21:49 Renvela PO Not Given 0730,1630 [facility] Sodium Chloride 10 ml 08/20/19 10:00 09/01/19 21:42 Sodium Chloride Flush Syringe 10 Ml IV 10 ml BID JOEL Administration Sodium Chloride 10 ml 08/19/19 22:44 08/22/19 22:32 Sodium Chloride Flush Syringe 10 Ml IV 10 ml PRN PRN Administration LINE FLUSH
--- NOTE | 2019-09-02 09:03 | Consultation ---
History of Present Illness - Reason for Consult Consult date: 09/02/19 pancreatic pseudocyst - History of Present Illness With a history of pancreatitis and large pseudocyst with mass effect. Patient has a history of lupus however, no known etiology of the patient's pancreatitis. Patient has had an elevation in her white count. Past History Past Medical History: other (as per HPI) Past Surgical History: Other (left leg fracture, AV fistula, peripheral neuropathy) Social history: lives with family. denies: smoking, alcohol abuse Family history: hypertension Medications and Allergies Allergies Allergy/AdvReac Type Severity Reaction Status Date / Time lactose AdvReac Unknown Verified 07/29/19 08:16 Home Medications Medication Instructions Recorded Confirmed Last Taken Type ALBUTEROL NEB's [Proventil 0.083% 2.5 mg IH QID PRN 07/26/19 08/21/19 07/25/19 History NEBS] Labetalol HCl [Labetalol 300mg TAB] 300 mg PO Q12H 07/26/19 08/21/19 07/25/19 History Mirtazapine 7.5 mg PO QDAY 07/26/19 08/21/19 07/25/19 History Pantoprazole [Protonix TAB] 40 mg PO BID 07/26/19 08/21/19 08/21/19 15:56 History Sevelamer HCl [Renagel] 800 mg PO BIDWM 07/26/19 08/21/19 07/25/19 History Acetaminophen [Acetaminophen TAB] 650 mg PO Q6H PRN tablet 08/18/19 08/21/19 Unknown Rx Cyanocobalamin (Vitamin B-12) 1,000 mcg PO QDAY #20 08/18/19 08/21/19 Unknown Rx [Vitamin B-12] Epoetin Mitch 20,000 Unit [Procrit] 20,000 unit SUB-Q FAN PRN vial 08/18/19 08/21/19 Unknown Rx Folic Acid [Folvite] 1 mg PO QDAY #30 08/18/19 08/21/19 Unknown Rx Gabapentin 300 mg PO 3XW #60 08/18/19 08/21/19 08/21/19 15:58 Rx Hydroxychloroquine [Plaquenil] 200 mg PO QDAY #30 08/18/19 08/21/19 Unknown Rx Insulin Glargine [Lantus VIAL] 20 units SUB-Q QHS #1 units 08/18/19 08/21/19 08/21/19 15:57 Rx Labetalol [Labetalol 200mg TAB] 300 mg PO BID #60 tablet 08/18/19 08/21/19 Unknown Rx Losartan [Cozaar] 50 mg PO QDAY #30 08/18/19 08/21/19 Unknown Rx Mycophenolate [Cellcept] 500 mg PO QDAY #30 08/18/19 08/21/19 08/21/19 15:56 Rx Pantoprazole [Protonix TAB] 40 mg PO BID #60 tablet 08/18/19 08/21/19 08/21/19 15:55 Rx Sevelamer Carbonate [Renvela] 800 mg PO 0730,1630 #30 tablet 08/18/19 08/21/19 08/21/19 15:56 Rx Total Parenteral Nutrition [TPN 12 ml IV DAILY@2000 ml 08/18/19 08/21/19 08/21/19 15:55 Rx Adult] hydrOXYzine HCL [Atarax] 50 mg PO QDAY #30 08/18/19 08/21/19 Unknown Rx levETIRAcetam [Keppra TAB] 500 mg PO BID #60 tablet 08/18/19 08/21/19 08/21/19 1 5:54 Rx oxyCODONE /ACETAMINOPHEN [Percocet 1 tab PO Q8H PRN #30 tablet 08/18/19 08/21/19 Unknown Rx 5/325 mg] predniSONE [Deltasone] 20 mg PO QDAY #30 08/18/19 08/21/19 Unknown Rx Active Meds: Active Medications Acetaminophen (Tylenol) 650 mg PO Q4H PRN PRN Reason: Pain MILD(1-3)/Fever >100.5/PORTER Acetaminophen (Tylenol) 650 mg MT Q6H PRN PRN Reason: Pain, Mild (1-3) Albuterol (Proventil) 2.5 mg IH QID PRN PRN Reason: Wheezing Clonidine HCl (Catapres-Tts Patch) 0.2 mg TD Th@1000 JOEL Last Admin: 09/01/19 10:53 Dose: 0.2 mg Documented by: Cyanocobalamin (Vitamin B-12) 1,000 mcg PO QDAY [facility] Last Admin: 09/01/19 10:00 Dose: Not Given Documented by: Dextrose (D50w (25gm) Syringe) 0 ml IV Q30MIN PRN PRN Reason: Hypoglycemia Last Admin: 08/29/19 13:00 Dose: 20 ml Documented by: Diphenhydramine HCl (Benadryl) 25 mg IV Q6H PRN PRN Reason: Itching Last Admin: 09/01/19 02:08 Dose: 25 mg Documented by: Epoetin Mitch (Procrit) 20,000 unit SUB-Q FAN PRN PRN Reason: hemodialysis Last Admin: 08/27/19 22:00 Dose: 20,000 unit Documented by: Folic Acid (Folvite) 1 mg PO QDAY [facility] Last Admin: 09/01/19 10:00 Dose: Not Given Documented by: Hydralazine HCl (Apresoline) 10 mg IV Q4H PRN PRN Reason: BP >160/100 Last Admin: 09/01/19 06:00 Dose: 10 mg Documented by: Hydroxychloroquine Sulfate (Plaquenil) 200 mg PO QDAY [facility] Last Admin: 09/01/19 10:00 Dose: Not Given Documented by: Hydroxyzine HCl (Atarax) 50 mg PO QDAY [facility] Last Admin: 09/01/19 10:00 Dose: Not Given Documented by: Levetiracetam 750 mg/ Dextrose 107.5 mls @ 400 mls/hr IV Q12HR [facility] Last Admin: 09/01/19 22:09 Dose: 400 mls/hr Documented by: Dextrose/Sodium Chloride (D5ns) 1,000 mls @ 42 mls/hr IV DIRECT [facility] Last Admin: 09/01/19 23:09 Dose: 42 mls/hr Documented by: Sodium Chloride (Nacl 0.9%) 100 mls @ 999 mls/hr IV FAN PRN PRN Reason: Hypotension Insulin Glargine (Lantus) 20 units SUB-Q QHS [facility] Last Admin: 09/01/19 23:51 Dose: 20 units Documented by: Insulin Glargine (Lantus) 6 units SUB-Q QAMDIAB [facility] Last Admin: 09/01/19 08:00 Dose: Not Given Documented by: Insulin Human Lispro (Humalog) 0 unit SUB-Q ACHS [facility]; Protocol Last Admin: 09/02/19 07:17 Dose: 8 unit Documented by: Labetalol HCl (Normodyne) 300 mg PO BID [facility] Last Admin: 09/01/19 21:49 Dose: Not Given Documented by: Lorazepam (Ativan) 1 mg IV TuThSa PRN PRN Reason: ANXIETY before dialysis Last Admin: 08/29/19 02:24 Dose: 1 mg Documented by: Lorazepam (Ativan) 2 mg IV Q4H PRN PRN Reason: Seizures Last Admin: 08/31/19 15:17 Dose: 2 mg Documented by: Losartan Potassium (Cozaar) 50 mg PO QDAY [facility] Last Admin: 09/01/19 10:00 Dose: Not Given Documented by: Melatonin (Melatonin) 5 mg PO QHS [facility] Last Admin: 09/01/19 21:50 Dose: Not Given Documented by: Methylprednisolone Sodium Succinate (Solu-Medrol) 20 mg IV DAILY [facility] Last Admin: 09/01/19 10:37 Dose: 20 mg Documented by: Metoclopramide HCl (Reglan) 5 mg IV Q6H PRN PRN Reason: Nausea And Vomiting Metoprolol Tartrate (Metoprolol) 5 mg IV Q6HR PRN PRN Reason: Hypertension Morphine Sulfate (Morphine) 2 mg IV Q4H PRN PRN Reason: Pain, Moderate (4-6) Last Admin: 09/02/19 05:08 Dose: 2 mg Documented by: Mycophenolate Mofetil (Cellcept) 500 mg PO QDAY [facility] Last Admin: 09/01/19 10:00 Dose: Not Given Documented by: Olanzapine (Zyprexa Zydis) 5 mg PO [facility] Last Admin: 09/01/19 21:50 Dose: Not Given Documented by: Ondansetron HCl (Zofran) 4 mg IV Q4H PRN PRN Reason: Nausea And Vomiting Last Admin: 09/01/19 05:49 Dose: 4 mg Documented by: Oxycodone/Acetaminophen (Percocet 5/325) 1 tab PO Q8H PRN PRN Reason: Pain, Moderate (4-6) Last Admin: 08/24/19 04:47 Dose: 1 tab Documented by: Pantoprazole Sodium (Protonix) 40 mg IV QDAY [facility] Last Admin: 09/01/19 12:39 Dose: 40 mg Documented by: Promethazine HCl (Phenergan) 25 mg MT Q6H PRN PRN Reason: Nausea And Vomiting Sevelamer Carbonate (Renvela) 800 mg PO 0730,1630 [facility] Last Admin: 09/01/19 21:49 Dose: Not Given Documented by: Sodium Chloride (Sodium Chloride Flush Syringe 10 Ml) 10 ml IV BID [facility] Last Admin: 09/01/19 21:42 Dose: 10 ml Documented by: Sodium Chloride (Sodium Chloride Flush Syringe 10 Ml) 10 ml IV PRN PRN PRN Reason: LINE FLUSH Last Admin: 08/22/19 22:32 Dose: 10 ml Documented by: Review of Systems All systems: negative Exam - Constitutional Vitals: Temp Pulse Resp BP Pulse Ox 98.2 F 107 H 23 108/58 98 09/02/19 04:00 09/02/19 04:00 09/02/19 05:08 09/01/19 21:49 09/02/19 04:00 General appearance: Present: no acute distress - EENT Eyes: Present: EOM intact ENT: hearing intact - Neck Neck: Present: normal ROM - Respiratory Respiratory effort: normal - Abdominal General gastrointestinal: Present: distended - Rectal Rectal Exam: deferred - Psychiatric Psychiatric: cooperative Results - Labs CBC & Chem 7: 09/01/19 08:35 09/01/19 07:30 Labs: Abnormal lab results 09/01/19 09/01/19 09/01/19 Range/Units 08:35 11:27 18:42 WBC 22.8 H (4.5-11.0) K/mm3 RBC 3.52 L (3.65-5.03) M/mm3 Hgb 9.4 L (10.1-14.3) gm/dl Hct 29.5 L (30.3-42.9) % MCH 27 L (28-32) pg RDW 18.3 H (13.2-15.2) % Seg Neuts % (Manual) 98.0 H (40.0-70.0) % Lymphocytes % (Manual) 1.0 L (13.4-35.0) % Seg Neutrophils # Man 22.3 H (1.8-7.7) K/mm3 Lymphocytes # (Manual) 0.2 L (1.2-5.4) K/mm3 POC Glucose 325 H 162 H (70-105) 09/01/19 09/02/19 Range/Units 23:37 06:07 WBC (4.5-11.0) K/mm3 RBC (3.65-5.03) M/mm3 Hgb (10.1-14.3) gm/dl Hct (30.3-42.9) % MCH (28-32) pg RDW (13.2-15.2) % Seg Neuts % (Manual) (40.0-70.0) % Lymphocytes % (Manual) (13.4-35.0) % Seg Neutrophils # Man (1.8-7.7) K/mm3 Lymphocytes # (Manual) (1.2-5.4) K/mm3 POC Glucose 276 H 438 H (70-105) - Imaging and Cardiology CT scan - abdomen: image reviewed CT scan - pelvis: image reviewed Assessment and Plan We will plan on perch status drainage of the patient's pseudocyst without leaving a drain behind today. Samples were sent for culture given the patient's elevated white cell count. Ultimately, the patient will need to be transferred to a tertiary care facility for definitive care.
[2019-09-02] MEDS ORDERED: HYDROmorphone 1 MG/1 ML INJ ONE (09:31)
[2019-09-02] MEDS ORDERED: ONDANSETRON 4 MG/2 ML INJ ONE (09:31)
[2019-09-02 09:38] LABS: Mean Corpuscular HGB Conc 31 % (30-34); Mean Corpuscular Volume 89 fl (79-97); Platelet Count 205 K/mm3 (140-440); Red Cell Distribution Width 19.1 % (13.2-15.2)
[2019-09-02] MEDS ORDERED: fentaNYL 100 MCG/2 ML INJ ONE (09:40)
[2019-09-02] MEDS ORDERED: MIDAZOLAM 5 MG/5 ML INJ MDV IV ONE (09:40)
[2019-09-02] MEDS ORDERED: fentaNYL 100 MCG/2 ML INJ IV ONE (09:40)
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
[2019-09-02] MEDS ORDERED: MIDAZOLAM 5 MG/5 ML INJ MDV IV NR (10:00)
[2019-09-02 10:05] LABS: Albumin 1.6 g/dL (3.9-5); Calcium 8.2 mg/dL (8.4-10.2)
[2019-09-02 10:35] LABS: Anisocytosis Few; Basophils % (Manual) 0 % (0.0-1.8); Eosinophils % (Manual) 0 % (0.0-4.3); Large Platelets Rare; Monocytes % (Manual) 0 % (0.0-7.3); Ovalocytes Few; Platelet Estimate Consistent w Auto; Poikilocytosis Few; Total Cells Counted 100
--- NOTE | 2019-09-02 10:39 | Event Note ---
Date: 09/02/19 Patient has confusion, delusional thought from her underlying psych disorder, She has been refusing dialysis and refused IR procedure today Discussed with RN, cable engineer outside plant and Dr Avelina Sarmiento Due to her underlying confusion, delusional thought she does not have right to refuse treatment. Will place on 1013, as needed haldol will stop ativan, percocet but will keep low dose morphin iv for abdominal pain as she has necrotozing pancreatitis. discussed thoroughly with sister - [phone], and explained all care plan and she verbalized understanding.
[2019-09-02] MEDS ORDERED: MORPHINE 4 MG/1 ML INJ IV PRN (10:53)
[2019-09-02] MEDS ORDERED: HYDROmorphone 1 MG/1 ML INJ IV PRN (11:00)
--- NOTE | 2019-09-02 12:36 | Gastroenterology Progress Note ---
<YELITZA ESTRADA - Last Filed: 09/02/19 13:51> Assessment and Plan 1.abdominal pain 2.N/V 3.necrotizing pancreatitis -WBC 21.9 -CRP 26 -Lipase 212 -LFTs-stable -triglyceride and hepatitis panel negative -repeat abd CT shows worsening pancreatitis with multiple developing pseudocysts (large LUQ peudocyst compressing on stomach) -etiology of pancreatitis unclear- possible autoimmune vs drug induced vs sepsis -surgery following with no recommendations for surgical intervention at this time -IR following with possilbe drainage of pseudocyst today -Keep NPO and continue TPN -continue to trend labs and supportive care (IFV, pain control, antiemetics, etc.) -recommend ID consult for recommendations for abx therapy -given worsening of necrotizing pancreatitis with enlarging fluid collection and now elevated WBC, worrisome for infection involving necrosis or fluid collection-recommend transfer to tertiary center for further management (may need debridement) Subjective Date of service: 09/02/19 Principal diagnosis: worsening pancreatitis Interval history: Patient noted to be confused with am with continued c/o abd pain and nausea. Objective - Constitutional Vitals: Temp Pulse Resp BP Pulse Ox 98.2 F 107 H 23 108/58 98 09/02/19 04:00 09/02/19 04:00 09/02/19 05:08 09/01/19 21:49 09/02/19 04:00 General appearance: mild distress, other (confused) - Respiratory Respiratory effort: normal - Cardiovascular Rhythm: other (tachycardia) - Gastrointestinal General gastrointestinal: Present: soft, tender, non-distended, normal bowel sounds - Neurologic Neurological: oriented to person - Labs CBC & Chem 7: 09/02/19 09:15 09/02/19 09:15 Labs: Laboratory Results - last 24 hr 09/01/19 09/01/19 09/02/19 18:42 23:37 06:07 WBC RBC Hgb Hct MCV MCH MCHC RDW Plt Count Add Manual Diff Total Counted Seg Neuts % (Manual) Band Neutrophils % Lymphocytes % (Manual) Reactive Lymphs % (Man) Monocytes % (Manual) Eosinophils % (Manual) Basophils % (Manual) Metamyelocytes % Myelocytes % Promyelocytes % Blast Cells % Nucleated RBC % Seg Neutrophils # Man Band Neutrophils # Lymphocytes # (Manual) Abs React Lymphs (Man) Monocytes # (Manual) Eosinophils # (Manual) Basophils # (Manual) Metamyelocytes # Myelocytes # Promyelocytes # Blast Cells # WBC Morphology Hypersegmented Neuts Hyposegmented Neuts Hypogranular Neuts Smudge Cells Toxic Granulation Toxic Vacuolation Dohle Bodies Pelger-Huet Anomaly Rose Rods Platelet Estimate Clumped Platelets Plt Clumps, EDTA Large Platelets Giant Platelets Platelet Satelliting Plt Morphology Comment RBC Morphology Dimorphic RBCs Polychromasia Hypochromasia Poikilocytosis Anisocytosis Microcytosis Macrocytosis Spherocytes Pappenheimer Bodies Sickle Cells Target Cells Tear Drop Cells Ovalocytes Helmet Cells Benavidez[place] Bodies [place]el[place] Rings [place] Cells Bite Cells Crenated Cell Elliptocytes Acanthocytes (Spur) Rouleaux Hemoglobin C Crystals Schistocytes Malaria parasites Dinesh Bodies Hem Pathologist Commnt Sodium Potassium Chloride Carbon Dioxide Anion Gap BUN Creatinine Estimated GFR BUN/Creatinine Ratio Glucose POC Glucose 162 H 276 H 438 H Calcium Magnesium Total Bilirubin AST ALT Alkaline Phosphatase C-Reactive Protein Total Protein Albumin Albumin/Globulin Ratio Lipase 09/02/19 09/02/19 09:15 09:15 WBC 21.9 H RBC 2.60 L Hgb 7.0 L Hct 23.0 L D MCV 89 MCH 27 L MCHC 31 RDW 19.1 H Plt Count 205 Add Manual Diff Complete Total Counted 100 Seg Neuts % (Manual) 98.0 H Band Neutrophils % 0 Lymphocytes % (Manual) 2.0 L Reactive Lymphs % (Man) 0 Monocytes % (Manual) 0 Eosinophils % (Manual) 0 Basophils % (Manual) 0 Metamyelocytes % 0 Myelocytes % 0 Promyelocytes % 0 Blast Cells % 0 Nucleated RBC % Not Reportable Seg Neutrophils # Man 21.5 H Band Neutrophils # 0.0 Lymphocytes # (Manual) 0.4 L Abs React Lymphs (Man) 0.0 Monocytes # (Manual) 0.0 Eosinophils # (Manual) 0.0 Basophils # (Manual) 0.0 Metamyelocytes # 0.0 Myelocytes # 0.0 Promyelocytes # 0.0 Blast Cells # 0.0 WBC Morphology Not Reportable Hypersegmented Neuts Not Reportable Hyposegmented Neuts Not Reportable Hypogranular Neuts Not Reportable Smudge Cells Not Reportable Toxic Granulation Not Reportable Toxic Vacuolation Not Reportable Dohle Bodies Not Reportable Pelger-Huet Anomaly Not Reportable Rose Rods Not Reportable Platelet Estimate Consistent w auto Clumped Platelets Not Reportable Plt Clumps, EDTA Not Reportable Large Platelets Rare Giant Platelets Not Reportable Platelet Satelliting Not Reportable Plt Morphology Comment Not Reportable RBC Morphology Not Reportable Dimorphic RBCs Not Reportable Polychromasia Not Reportable Hypochromasia Not Reportable Poikilocytosis Few Anisocytosis Few Microcytosis Not Reportable Macrocytosis Not Reportable Spherocytes Not Reportable Pappenheimer Bodies Not Reportable Sickle Cells Not Reportable Target Cells Not Reportable Tear Drop Cells Not Reportable Ovalocytes Few Helmet Cells Not Reportable Benavidez-[place] Bodies Not Reportable [place]eligh Rings Not Reportable Bk Cells Not Reportable Bite Cells Not Reportable Crenated Cell Not Reportable Elliptocytes Not Reportable Acanthocytes (Spur) Not Reportable Rouleaux Not Reportable Hemoglobin C Crystals Not Reportable Schistocytes Not Reportable Malaria parasites Not Reportable Dinesh Bodies Not Reportable Hem Pathologist Commnt No Sodium 131 L Potassium 4.7 Chloride 84.4 L Carbon Dioxide 19 L Anion Gap 32 BUN 156 H Creatinine 7.6 H Estimated GFR 8 BUN/Creatinine Ratio 21 Glucose 849 H* POC Glucose Calcium 8.2 L Magnesium 1.60 L Total Bilirubin 0.30 AST 34 ALT 6 L Alkaline Phosphatase 139 H C-Reactive Protein 26.00 H Total Protein 4.9 L Albumin 1.6 L Albumin/Globulin Ratio 0.5 Lipase 212 H <DANA FRAZIER R - Last Filed: 09/02/19 15:05> Assessment and Plan Pt seen and examined. Awake and alert, confused. Plan as noted. Objective - Constitutional Vitals: Temp Pulse Resp BP Pulse Ox 98.2 F 107 H 23 108/58 98 09/02/19 04:00 09/02/19 04:00 09/02/19 05:08 09/01/19 21:49 09/02/19 04:00 - Labs CBC & Chem 7: 09/02/19 09:15 09/02/19 09:15 Labs: Laboratory Results - last 24 hr 09/01/19 09/01/19 09/02/19 18:42 23:37 06:07 WBC RBC Hgb Hct MCV MCH MCHC RDW Plt Count Add Manual Diff Total Counted Seg Neuts % (Manual) Band Neutrophils % Lymphocytes % (Manual) Reactive Lymphs % (Man) Monocytes % (Manual) Eosinophils % (Manual) Basophils % (Manual) Metamyelocytes % Myelocytes % Promyelocytes % Blast Cells % Nucleated RBC % Seg Neutrophils # Man Band Neutrophils # Lymphocytes # (Manual) Abs React Lymphs (Man) Monocytes # (Manual) Eosinophils # (Manual) Basophils # (Manual) Metamyelocytes # Myelocytes # Promyelocytes # Blast Cells # WBC Morphology Hypersegmented Neuts Hyposegmented Neuts Hypogranular Neuts Smudge Cells Toxic Granulation Toxic Vacuolation Dohle Bodies Pelger-Huet Anomaly Rose Rods Platelet Estimate Clumped Platelets Plt Clumps, EDTA Large Platelets Giant Platelets Platelet Satelliting Plt Morphology Comment RBC Morphology Dimorphic RBCs Polychromasia Hypochromasia Poikilocytosis Anisocytosis Microcytosis Macrocytosis Spherocytes Pappenheimer Bodies Sickle Cells Target Cells Tear Drop Cells Ovalocytes Helmet Cells Benavidez-[place] Bodies Neligh Rings Bk Cells Bite Cells Crenated Cell Elliptocytes Acanthocytes (Spur) Rouleaux Hemoglobin C Crystals Schistocytes Malaria parasites Dinesh Bodies Hem Pathologist Commnt Sodium Potassium Chloride Carbon Dioxide Anion Gap BUN Creatinine Estimated GFR BUN/Creatinine Ratio Glucose POC Glucose 162 H 276 H 438 H Calcium Magnesium Total Bilirubin AST ALT Alkaline Phosphatase C-Reactive Protein Total Protein Albumin Albumin/Globulin Ratio Lipase 09/02/19 09/02/19 09/02/19 09:15 09:15 12:45 WBC 21.9 H RBC 2.60 L Hgb 7.0 L Hct 23.0 L D MCV 89 MCH 27 L MCHC 31 RDW 19.1 H Plt Count 205 Add Manual Diff Complete Total Counted 100 Seg Neuts % (Manual) 98.0 H Band Neutrophils % 0 Lymphocytes % (Manual) 2.0 L Reactive Lymphs % (Man) 0 Monocytes % (Manual) 0 Eosinophils % (Manual) 0 Basophils % (Manual) 0 Metamyelocytes % 0 Myelocytes % 0 Promyelocytes % 0 Blast Cells % 0 Nucleated RBC % Not Reportable Seg Neutrophils # Man 21.5 H Band Neutrophils # 0.0 Lymphocytes # (Manual) 0.4 L Abs React Lymphs (Man) 0.0 Monocytes # (Manual) 0.0 Eosinophils # (Manual) 0.0 Basophils # (Manual) 0.0 Metamyelocytes # 0.0 Myelocytes # 0.0 Promyelocytes # 0.0 Blast Cells # 0.0 WBC Morphology Not Reportable Hypersegmented Neuts Not Reportable Hyposegmented Neuts Not Reportable Hypogranular Neuts Not Reportable Smudge Cells Not Reportable Toxic Granulation Not Reportable Toxic Vacuolation Not Reportable Dohle Bodies Not Reportable Pelger-Huet Anomaly Not Reportable Rose Rods Not Reportable Platelet Estimate Consistent w auto Clumped Platelets Not Reportable Plt Clumps, EDTA Not Reportable Large Platelets Rare Giant Platelets Not Reportable Platelet Satelliting Not Reportable Plt Morphology Comment Not Reportable RBC Morphology Not Reportable Dimorphic RBCs Not Reportable Polychromasia Not Reportable Hypochromasia Not Reportable Poikilocytosis Few Anisocytosis Few Microcytosis Not Reportable Macrocytosis Not Reportable Spherocytes Not Reportable Pappenheimer Bodies Not Reportable Sickle Cells Not Reportable Target Cells Not Reportable Tear Drop Cells Not Reportable Ovalocytes Few Helmet Cells Not Reportable Benavidez-[place] Bodies Not Reportable Neligh Rings Not Reportable [place] Cells Not Reportable Bite Cells Not Reportable Crenated Cell Not Reportable Elliptocytes Not Reportable Acanthocytes (Spur) Not Reportable Rouleaux Not Reportable Hemoglobin C Crystals Not Reportable Schistocytes Not Reportable Malaria parasites Not Reportable Dinesh Bodies Not Reportable Hem Pathologist Commnt No Sodium 131 L Potassium 4.7 Chloride 84.4 L Carbon Dioxide 19 L Anion Gap 32 BUN 156 H Creatinine 7.6 H Estimated GFR 8 BUN/Creatinine Ratio 21 Glucose 849 H* POC Glucose 362 H Calcium 8.2 L Magnesium 1.60 L Total Bilirubin 0.30 AST 34 ALT 6 L Alkaline Phosphatase 139 H C-Reactive Protein 26.00 H Total Protein 4.9 L Albumin 1.6 L Albumin/Globulin Ratio 0.5 Lipase 212 H
--- NOTE | 2019-09-02 12:51 | Progress Note ---
Subjective - Reason for Consult Consult date: 09/02/19 Reason for consult: Psychiatry - Chief Complaint Chief complaint: "i will take my meds" This is a reconsult. 29 y.o. AA female who presented to the ER for AMS. Today the patient was paranoid during the assessment. per the staff, the patient is refusing treatment (dialysis/medication0 because of her paranoia. Also, she believe that she's . She did agree to take her Zyprexa. Place the pill on the patient's tongure for administration. She denies SI/HI's. Mental Status Exam - Vital signs Last Vital Signs Temp 98.2 F 09/02/19 04:00 Pulse 107 H 09/02/19 04:00 Resp 23 09/02/19 05:08 BP 108/58 09/01/19 21:49 Pulse Ox 98 09/02/19 04:00 - Exam Narrative exam: MSE: Appearance: in hospital attire Behavior: regular eye contact Speech: regular rate and tone Mood: "awful" Affect: congruent to mood Thought Process: somewhat disorganized Thought Content: denies SI/HI's and AVH's, paranoia, delusional Motor Activity: lying in bed Cognition: A/O x 3 Insight: poor Judgment: poor Assessment and Plan Impression. Delirium. Today the patient was paranoid during the assessment. Cr 7.6. DDx: Unspecified Personality DO Recommendation/Plan: Continue 1013 and modify Zyprexa to Zydis ODT 5 mg BID for psychosis. Place tablet on the patients's tongue for administration. Recommend no narcotics at this time. Recommend Delirium precautions below: 1. Frequently reorient patient and involve him/her in their care (simple explanations of procedures, tests, medications). 2. Lights on and shades open during daytime hours. 3. Write date and goals of care in a visible place. 4. Try to avoid unnecessary interruptions to sleep during nighttime hours. 5. Obtain glasses, hearing aids from home if patient uses these at baseline. 6. Avoid medications that may exacerbate delirium (especially narcotics, benzodiazepines, barbiturates, ambien, lunesta, and medications with excessive anticholinergic properties). The patient has Percocet (PRN) and Atarax (scheduled) in her MAR? Recommend Atarax PRN and a NSAID for pain. Staffed with Dr Luis Rivera.
--- NOTE | 2019-09-02 12:55 | Progress Note ---
Assessment and Plan The patient is tachycardic on examination, but rate is improved - likely r/t abdominal pain and discomfort. She is currently NPO, so will continue IV metoprolol as ordered. When she is able to resume PO intake and is no longer refusing medications, will re-attempt PO labetalol and other cardiac medications. The patient has been seen in conjunction with Dr. Velasquez, who agrees with the assessment and plan. - Patient Problems (1) Altered mental status Current Visit: Yes Status: Acute Qualifiers: Qualified Code(s): R41.82 - Altered mental status, unspecified (2) NSTEMI (non-ST elevated myocardial infarction) Current Visit: Yes Status: Acute (3) End-stage renal disease needing dialysis Current Visit: Yes Status: Chronic (4) Anemia of chronic disease Current Visit: Yes Status: Chronic (5) H/O acute pancreatitis Current Visit: No Status: Acute (6) On total parenteral nutrition (TPN) Current Visit: Yes Status: Acute (7) Hypertension Current Visit: No Status: Chronic (8) Seizure disorder Current Visit: No Status: Chronic (9) Hypokalemia Current Visit: Yes Status: Acute (10) Leukocytosis Current Visit: Yes Status: Acute Qualifiers: Qualified Code(s): D72.829 - Elevated white blood cell count, unspecified (11) Lupus Current Visit: No Status: Chronic Subjective Date of service: 09/02/19 Principal diagnosis: worsening pancreatitis Interval history: The patient is lying in bed, c/o abdominal pain. She is scheduled to undergo CT-guided drainage of pseudocyst. Telemetry reviewed - ST in 100s. Objective Last Vital Signs Temp 98.2 F 09/02/19 04:00 Pulse 107 H 09/02/19 04:00 Resp 23 09/02/19 05:08 BP 108/58 09/01/19 21:49 Pulse Ox 98 09/02/19 04:00 - Physical Examination General: Cachectic, Other (c/o abdominal pain) HEENT: Positive: PERRL Neck: Positive: neck supple, trachea midline, Other Cardiac: Positive: Regular Rhythm Lungs: Positive: Normal Exam Neuro: Positive: Grossly Intact, Other (confused ) Abdomen: Positive: Tender /Rectal: Other (deferred) Skin: Positive: Wound (circular open wounds on right arm and forehead ) Musculoskeletal: Decreased Range of Motion (BLE), other Extremities: Present: upper extr. pulses (2+), lower extr. pulses (2+) - Labs and Meds Cardiac Enzymes 09/02/19 Range/Units 09:15 AST 34 (5-40) units/L CBC 09/02/19 Range/Units 09:15 WBC 21.9 H (4.5-11.0) K/mm3 RBC 2.60 L (3.65-5.03) M/mm3 Hgb 7.0 L (10.1-14.3) gm/dl Hct 23.0 L D (30.3-42.9) % Plt Count 205 (140-440) K/mm3 Comprehensive Metabolic Panel 09/02/19 Range/Units 09:15 Sodium 131 L (137-145) mmol/L Potassium 4.7 (3.6-5.0) mmol/L Chloride 84.4 L (98-107) mmol/L Carbon Dioxide 19 L (22-30) mmol/L BUN 156 H (7-17) mg/dL Creatinine 7.6 H (0.7-1.2) mg/dL Glucose 849 H* (65-100) mg/dL Calcium 8.2 L (8.4-10.2) mg/dL AST 34 (5-40) units/L ALT 6 L (7-56) units/L Alkaline Phosphatase 139 H (35-129) units/L Total Protein 4.9 L (6.3-8.2) g/dL Albumin 1.6 L (3.9-5) g/dL - Imaging and Cardiology Echo: report reviewed (EF 55-60%, mild LVH, abnormal diastolic function, mild MR, mild to Mod TR, RVSP 41mmHg, minimal pericardial effusion. ) - Telemetry EKG Rhythm: Sinus Tachycardia Chamber hypertrophy or enlargement: left ventricular hypertro
--- NOTE | 2019-09-02 12:59 | Progress Note ---
Assessment and Plan 29 yo F with 1. abd pain 2. 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 hx of necrotizing pancreatitis Plan: 1. Multiple pseudocysts. Large LUQ pseudocyst compressing on stomach likely leading to symptoms of n/v. Pseudocysts are immature and are not appropriate for surgical intervention at this time. IR consulted. Discussed with Dr. Quan, patient refusing drainage procedure 2. NGT not placed yesterday despite being ordered. Place NGT if patient has vomiting 3. NPO 4. TPN - will need TPN indefinitely at this time as patient will need to be kept NPO. Doubt she will tolerate anything PO due to compression of stomach by pseudocyst 5. IVF 6. prn nausea control 7. prn pain control 8. Gi consulted and recommend transfer to tertiary care center Pt in need of treatment for symptomatic pseudocyst, possibly infected. Recommend transfer to tertiary care center such as [facility] for surgical eval. D/w Dr. Barrett. Thank you, please call with questions. Subjective Date of service: 09/02/19 Narrative: Pt seen and examined. c/o nausea and abdominal pain. Pt refused IR aspiration of pseudocyst today because she thinks she is . Patient states that she has had milky discharge from her nipples and that "the babies are not ready to come out". NO f/c. Objective Vital Signs - 12hr 09/02/19 09/02/19 04:00 05:08 Temperature 98.2 F Pulse Rate 107 H Pulse Rate [ 107 H From Monitor] Respiratory 29 H 23 Rate O2 Sat by Pulse 98 Oximetry - General physical appearance Narrative Exam: Gen: Awake, sleepy, NAD. CV: s1, S2+ Resp: even and unlabored Abd: soft, distended, TTP in epigastrum and LUQ. No r/r/g Ext: no c/c/e - Labs 09/02/19 09:15 09/02/19 09:15 Diabetes panel 09/02/19 Range/Units 09:15 Sodium 131 L (137-145) mmol/L Potassium 4.7 (3.6-5.0) mmol/L Chloride 84.4 L (98-107) mmol/L Carbon Dioxide 19 L (22-30) mmol/L BUN 156 H (7-17) mg/dL Creatinine 7.6 H (0.7-1.2) mg/dL Glucose 849 H* (65-100) mg/dL Calcium 8.2 L (8.4-10.2) mg/dL AST 34 (5-40) units/L ALT 6 L (7-56) units/L Alkaline Phosphatase 139 H (35-129) units/L Total Protein 4.9 L (6.3-8.2) g/dL Albumin 1.6 L (3.9-5) g/dL Calcium panel 09/02/19 Range/Units 09:15 Calcium 8.2 L (8.4-10.2) mg/dL Albumin 1.6 L (3.9-5) g/dL Pituitary panel 09/02/19 Range/Units 09:15 Sodium 131 L (137-145) mmol/L Potassium 4.7 (3.6-5.0) mmol/L Chloride 84.4 L (98-107) mmol/L Carbon Dioxide 19 L (22-30) mmol/L BUN 156 H (7-17) mg/dL Creatinine 7.6 H (0.7-1.2) mg/dL Glucose 849 H* (65-100) mg/dL Calcium 8.2 L (8.4-10.2) mg/dL Adrenal panel 09/02/19 Range/Units 09:15 Sodium 131 L (137-145) mmol/L Potassium 4.7 (3.6-5.0) mmol/L Chloride 84.4 L (98-107) mmol/L Carbon Dioxide 19 L (22-30) mmol/L BUN 156 H (7-17) mg/dL Creatinine 7.6 H (0.7-1.2) mg/dL Glucose 849 H* (65-100) mg/dL Calcium 8.2 L (8.4-10.2) mg/dL Total Bilirubin 0.30 (0.1-1.2) mg/dL AST 34 (5-40) units/L ALT 6 L (7-56) units/L Alkaline Phosphatase 139 H (35-129) units/L Total Protein 4.9 L (6.3-8.2) g/dL Albumin 1.6 L (3.9-5) g/dL
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
[2019-09-02] MEDS ORDERED: MAGNESIUM SULFATE 2 GM/50 ML BAG IV ONE (13:52)
[2019-09-02] MEDS: HALOPERIDOL LACTATE 5 MG/1 ML INJ IM PRN (14:33)
[2019-09-02] MEDS: OLANzapine ZYDIS 5 MG TAB PO SCH ×2 (14:33→23:22)
[2019-09-02] MEDS: PANTOPRAZOLE 40 MG INJ IV SCH (14:35)
[2019-09-02] MEDS: HYDROXYCHLOROQUINE 200 MG TAB PO SCH (14:36)
[2019-09-02] MEDS: hydrOXYzine HCL 25 MG TAB PO SCH (14:36)
[2019-09-02] MEDS: MYCOPHENOLATE 500 MG TAB PO SCH (14:37)
[2019-09-02] MEDS: INSULIN GLARGINE 100 UNITS/ML SUB-Q SCH (14:39)
[2019-09-02] MEDS: levETIRAcetam 750 MG in DEXTROSE 5% IN WATER 100 ML IV SCH ×2 (14:39→23:12)
[2019-09-02] MEDS: LOSARTAN 50 MG TAB PO SCH (14:41)
[2019-09-02] MEDS: CYANOCOBALAMIN (VIT B-12) 1000 MCG TAB PO SCH (14:42)
[2019-09-02] MEDS: SEVELAMER CARBONATE 800 MG TAB PO SCH ×2 (14:42→20:48)
[2019-09-02] MEDS: FOLIC ACID 1 MG TAB PO SCH (14:42)
[2019-09-02] MEDS: ONDANSETRON 4 MG/2 ML INJ IV PRN ×2 (15:29→21:16)
[2019-09-02] MEDS: EPOETIN ALFA 20,000 UNIT/1 ML INJ SUB-Q PRN (17:30)
[2019-09-02] MEDS: METOCLOPRAMIDE 10 MG/2 ML INJ IV PRN (19:11)
[2019-09-02] MEDS ORDERED: TOTAL PARENTERAL NUTRITION 1,560 ML IV SCH (20:00)
[2019-09-02] MEDS ORDERED: FAT EMULSIONS 20% 250 ML IV SCH (20:00)
[2019-09-02] MEDS: MELATONIN 5 MG TAB PO SCH (23:21)
[2019-09-02] MEDS: METOPROLOL TARTRATE 5 MG/5 ML INJ IV PRN (23:27)
[2019-09-03] MEDS: INSULIN LISPRO 100 UNIT/ML SUB-Q SCH ×3 (00:36→21:33)
[2019-09-03] MEDS: INSULIN GLARGINE 100 UNITS/ML SUB-Q SCH ×2 (00:36→21:33)
[2019-09-03] MEDS: METOCLOPRAMIDE 10 MG/2 ML INJ IV PRN ×2 (01:23→20:58)
[2019-09-03 05:04] LABS: Hematocrit 23.3 % (30.3-42.9); Hemoglobin 7.5 gm/dl (10.1-14.3); Mean Corpuscular HGB Conc 32 % (30-34); Mean Corpuscular Volume 86 fl (79-97); Platelet Count 209 K/mm3 (140-440); Red Blood Count 2.71 M/mm3 (3.65-5.03); Red Cell Distribution Width 18.1 % (13.2-15.2)
[2019-09-03 05:24] LABS: Calcium 9.4 mg/dL (8.4-10.2)
[2019-09-03] MEDS: METOPROLOL TARTRATE 5 MG/5 ML INJ IV PRN ×2 (06:08→20:58)
[2019-09-03 06:34] LABS: Basophils % (Manual) 0 % (0.0-1.8); Eosinophils % (Manual) 0 % (0.0-4.3); Total Cells Counted 100
[2019-09-03 06:36] LABS: Anisocytosis 1+; Poikilocytosis 1+
[2019-09-03 06:37] LABS: Macrocytosis Rare; Platelet Estimate Consistent w Auto; Tear Drop Cells Rare
[2019-09-03] MEDS: SEVELAMER CARBONATE 800 MG TAB PO SCH ×2 (07:30→16:30)
--- NOTE | 2019-09-03 10:04 | Progress Note ---
Assessment and Plan 1. ESRD: On maintenance hemodialysis three times a week, TTS schedule. Last dialyzed yesterday. 2. FEN: Hyperkalemia, improved. Metabolic acidosis, improved. Monitor lytes. 3. Anemia: Epogen with HD. S/p PRBC. 4. Seizures: On Keppra. 5. Metabolic encephalopathy. 6. Acute pancreatitis: CT abdomen showed worsening pancreatitis. Gen. Surgery recommended pancreatic drain, but pt refused. On PPN / TPN. 7. Tachycardia: Cardiology consulted. 8. History of lupus: On Solumedrol. Patient is not taking any of the pills. 9. Hyperglycemia. 10. Psychosis. 11. Deconditioning. Examination: General appearance: well-developed, appears stated age, not in distress HEENT: ATNC, BORA Neck: trachea midline Respiratory: Clear to Ascultation Heart: regular, S1S2, no murmur Gastrointestinal: soft, distended, not tenderness, normoactive bowel sound Integumentary: no rash, warm and dry Neurologic: alert, follows some command, answers questions, confusion noted Musculoskeletal: trace LE edema Hemodialysis access: L arm AVG Subjective Date of service: 09/03/19 Principal diagnosis: anbl trop Interval history: Patient was seen and examined at the bedside. RN at the bedside. Objective - Vital Signs Vital signs: Vital Signs - 12hr 09/02/19 09/02/19 09/02/19 23:00 23:19 23:27 Temperature Pulse Rate 133 H 136 H Pulse Rate [ From Monitor] Respiratory Rate Blood Pressure 134/74 134/77 Blood Pressure [Right] O2 Sat by Pulse 96 Oximetry 09/03/19 09/03/19 09/03/19 00:00 00:08 04:00 Temperature 98.0 F 99.8 F H Pulse Rate 128 H 133 H Pulse Rate [ 128 H 133 H From Monitor] Respiratory 34 H 34 H Rate Blood Pressure Blood Pressure 144/73 [Right] O2 Sat by Pulse 99 100 Oximetry 09/03/19 06:08 Temperature Pulse Rate 136 H Pulse Rate [ From Monitor] Respiratory Rate Blood Pressure 118/67 Blood Pressure [Right] O2 Sat by Pulse Oximetry - Lab 09/03/19 04:33 09/03/19 04:33 Most recent lab results Calcium 9.4 mg/dL (8.4-10.2) 09/03/19 04:33 Phosphorus 5.30 mg/dL (2.5-4.5) H 09/01/19 07:30 Magnesium 1.90 mg/dL (1.7-2.3) 09/03/19 04:33 Medications & Allergies - Medications Allergies/Adverse Reactions: Allergies lactose Adverse Reaction (Verified 07/29/19 08:16) Unknown Home Medications: Home Medications Medication Instructions Recorded Confirmed Last Taken Type ALBUTEROL NEB's [Proventil 0.083% 2.5 mg IH QID PRN 07/26/19 08/21/19 07/25/19 History NEBS] Labetalol HCl [Labetalol 300mg TAB] 300 mg PO Q12H 07/26/19 08/21/19 07/25/19 History Mirtazapine 7.5 mg PO QDAY 07/26/19 08/21/19 07/25/19 History Pantoprazole [Protonix TAB] 40 mg PO BID 07/26/19 08/21/19 08/21/19 15:56 History Sevelamer HCl [Renagel] 800 mg PO BIDWM 07/26/19 08/21/19 07/25/19 History Acetaminophen [Acetaminophen TAB] 650 mg PO Q6H PRN tablet 08/18/19 08/21/19 Unknown Rx Cyanocobalamin (Vitamin B-12) 1,000 mcg PO QDAY #20 08/18/19 08/21/19 Unknown Rx [Vitamin B-12] Epoetin Mitch 20,000 Unit [Procrit] 20,000 unit SUB-Q FAN PRN vial 08/18/19 08/21/19 Unknown Rx Folic Acid [Folvite] 1 mg PO QDAY #30 08/18/19 08/21/19 Unknown Rx Gabapentin 300 mg PO 3XW #60 08/18/19 08/21/19 08/21/19 15:58 Rx Hydroxychloroquine [Plaquenil] 200 mg PO QDAY #30 08/18/19 08/21/19 Unknown Rx Insulin Glargine [Lantus VIAL] 20 units SUB-Q QHS #1 units 08/18/19 08/21/19 08/21/19 15:57 Rx Labetalol [Labetalol 200mg TAB] 300 mg PO BID #60 tablet 08/18/19 08/21/19 Unknown Rx Losartan [Cozaar] 50 mg PO QDAY #30 08/18/19 08/21/19 Unknown Rx Mycophenolate [Cellcept] 500 mg PO QDAY #30 08/18/19 08/21/19 08/21/19 15:56 Rx Pantoprazole [Protonix TAB] 40 mg PO BID #60 tablet 08/18/19 08/21/19 08/21/19 15:55 Rx Sevelamer Carbonate [Renvela] 800 mg PO 0730,1630 #30 tablet 08/18/19 08/21/19 08/21/19 15:56 Rx Total Parenteral Nutrition [TPN 12 ml IV DAILY@2000 ml 08/18/19 08/21/19 08/21/19 15:55 Rx Adult] hydrOXYzine HCL [Atarax] 50 mg PO QDAY #30 08/18/19 08/21/19 Unknown Rx levETIRAcetam [Keppra TAB] 500 mg PO BID #60 tablet 08/18/19 08/21/19 08/21/19 15:54 Rx oxyCODONE /ACETAMINOPHEN [Percocet 1 tab PO Q8H PRN #30 tablet 08/18/19 08/21/19 Unknown Rx 5/325 mg] predniSONE [Deltasone] 20 mg PO QDAY #30 08/18/19 08/21/19 Unknown Rx Active Medications: Generic Name Dose Route Start Last Admin Trade Name Freq PRN Reason Stop Dose Admin Acetaminophen 650 mg 08/19/19 22:44 Tylenol PO Q4H PRN Pain MILD(1-3)/Fever >100.5/PORTER Acetaminophen 650 mg 08/26/19 13:00 09/03/19 04:11 Tylenol [place] 650 mg Q6H PRN Administration Pain, Mild (1-3) Albuterol 2.5 mg 08/20/19 09:00 Proventil IH QID PRN Wheezing Clonidine HCl 0.2 mg 09/01/19 10:00 09/01/19 10:53 Catapres-Tts Patch TD 0.2 mg Th@1000 JOEL Administration Cyanocobalamin 1,000 mcg 08/20/19 10:00 09/02/19 14:42 Vitamin B-12 PO Not Given QDAY JOEL Dextrose 0 ml 08/19/19 22:43 08/29/19 13:00 D50w (25gm) Syringe IV 20 ml Q30MIN PRN Administration Hypoglycemia Diphenhydramine HCl 25 mg 08/22/19 22:22 09/01/19 02:08 Benadryl IV 25 mg Q6H PRN Administration Itching Epoetin Mitch 20,000 unit 08/20/19 09:17 09/02/19 17:30 Procrit SUB-Q 20,000 unit FAN PRN Administration hemodialysis Folic Acid 1 mg 08/20/19 10:00 09/02/19 14:42 Folvite PO Not Given QDAY JOEL Haloperidol Lactate 5 mg 09/02/19 11:00 09/02/19 14:33 Haldol IM 5 mg Q6H PRN Administration Agitation Hydralazine HCl 10 mg 08/21/19 13:00 09/01/19 06:00 Apresoline IV 10 mg Q4H PRN Administration BP >160/100 Hydroxychloroquine Sulfate 200 mg 08/20/19 10:00 09/02/19 14:36 Plaquenil PO 200 mg QDAY JOEL Administration Hydroxyzine HCl 50 mg 08/20/19 10:00 09/02/19 14:36 Atarax PO 50 mg QDAY JOEL Administration Levetiracetam 750 mg/ Dextrose 107.5 mls @ 400 mls/hr 08/26/19 12:30 09/02/19 23:12 IV 400 mls/hr Q12HR JOEL Administration Sodium Chloride 100 mls @ 999 mls/hr 09/01/19 19:40 Nacl 0.9% IV FAN PRN Hypotension Insulin Glargine 20 units 08/20/19 22:00 09/03/19 00:36 Lantus SUB-Q 20 units QHS JOEL Administration Insulin Glargine 10 units 09/02/19 11:30 09/02/19 14:39 Lantus SUB-Q 10 units QAMDIAB JOEL Administration Insulin Human Lispro 0 unit 08/20/19 11:30 09/03/19 08:25 Humalog SUB-Q 4 unit ACHS JOEL Administration Protocol Labetalol HCl 300 mg 08/20/19 10:00 09/02/19 23:19 Normodyne PO Not Given BID [facility] Losartan Potassium 50 mg 08/20/19 10:00 09/02/19 14:41 Cozaar PO Not Given QDAY JOEL Melatonin 5 mg 08/25/19 22:00 09/02/19 23:21 Melatonin PO Not Given QHS JOEL Metoclopramide HCl 5 mg 09/01/19 13:00 09/03/19 01:23 Reglan IV 5 mg Q6H PRN Administration Nausea And Vomiting Metoprolol Tartrate 5 mg 09/01/19 18:48 09/03/19 06:08 Metoprolol IV 5 mg Q6HR PRN Administration Hypertension Morphine Sulfate 1 mg 09/02/19 11:30 09/02/19 21:17 Morphine IV 1 mg Q4H PRN Administration Pain , Severe (7-10) Mycophenolate Mofetil 500 mg 08/20/19 10:00 09/02/19 14:37 Cellcept PO 500 mg QDAY JOEL Administration Olanzapine 5 mg 09/02/19 13:00 09/02/19 23:22 Zyprexa Zydis PO Not Given BID [facility] Ondansetron HCl 4 mg 08/21/19 13:00 09/02/19 21:16 Zofran IV 4 mg Q4H PRN Administration Nausea And Vomiting Pantoprazole Sodium 40 mg 09/01/19 12:30 09/02/19 14:35 Protonix IV 40 mg QDAY JOEL Administration Promethazine HCl 25 mg 08/21/19 12:46 Phenergan [place] Q6H PRN Nausea And Vomiting Sevelamer Carbonate 800 mg 08/20/19 16:30 09/02/19 20:48 Renvela PO Not Given 0730,1630 JOEL Sodium Chloride 10 ml 08/20/19 10:00 09/02/19 23:21 Sodium Chloride Flush Syringe 10 Ml IV 10 ml BID JOEL Administration Sodium Chloride 10 ml 08/19/19 22:44 08/22/19 22:32 Sodium Chloride Flush Syringe 10 Ml IV 10 ml PRN PRN Administration LINE FLUSH
[2019-09-03] MEDS: PANTOPRAZOLE 40 MG INJ IV SCH (11:09)
[2019-09-03] MEDS: levETIRAcetam 750 MG in DEXTROSE 5% IN WATER 100 ML IV SCH ×2 (11:09→22:05)
--- NOTE | 2019-09-03 12:31 | Consultation ---
History of Present Illness - Reason for Consult Consult date: 09/03/19 Reason for consult: Mental Health Evaluation Requesting physician: NOHEMY AVILA - Chief Complaint Chief complaint: "i will take my meds" - History of Present Psychiatric Illness 29 y.o. AA female who presented to the ER for AMS. Today the patient was calm, but confused during the assessment. Most of her answers to questions were not logical. She was asked about her living arrangement, she stated that she reside with her "baby daddy", but changed her mind when asked that same question again ("reside with my sister"). She was able to state her and ID the current/past [place] Presidents, but could not recall 3 numbers in 5 mins. She denies a psy hx when asked. Overall, the patient's insight was limited. She denies SI/HI's. Medications and Allergies Allergies Allergy/AdvReac Type Severity Reaction Status Date / Time lactose AdvReac Unknown Verified 07/29/19 08:16 Home Medications Medication Instructions Recorded Confirmed Last Taken Type ALBUTEROL NEB's [Proventil 0.083% 2.5 mg IH QID PRN 07/26/19 08/21/19 07/25/19 History NEBS] Labetalol HCl [Labetalol 300mg TAB] 300 mg PO Q12H 07/26/19 08/21/19 07/25/19 History Mirtazapine 7.5 mg PO QDAY 07/26/19 08/21/19 07/25/19 History Pantoprazole [Protonix TAB] 40 mg PO BID 07/26/19 08/21/19 08/21/19 15:56 History Sevelamer HCl [Renagel] 800 mg PO BIDWM 07/26/19 08/21/19 07/25/19 History Acetaminophen [Acetaminophen TAB] 650 mg PO Q6H PRN tablet 08/18/19 08/21/19 Unknown Rx Cyanocobalamin (Vitamin B-12) 1,000 mcg PO QDAY #20 08/18/19 08/21/19 Unknown Rx [Vitamin B-12] Epoetin Mitch 20,000 Unit [Procrit] 20,000 unit SUB-Q FAN PRN vial 08/18/19 08/21/19 Unknown Rx Folic Acid [Folvite] 1 mg PO QDAY #30 08/18/19 08/21/19 Unknown Rx Gabapentin 300 mg PO 3XW #60 08/18/19 08/21/19 08/21/19 15:58 Rx Hydroxychloroquine [Plaquenil] 200 mg PO QDAY #30 08/18/19 08/21/19 Unknown Rx Insulin Glargine [Lantus VIAL] 20 units SUB-Q QHS #1 units 08/18/19 08/21/19 08/21/19 15:57 Rx Labetalol [Labetalol 200mg TAB] 300 mg PO BID #60 tablet 08/18/19 08/21/19 Unknown Rx Losartan [Cozaar] 50 mg PO QDAY #30 08/18/19 08/21/19 Unknown Rx Mycophenolate [Cellcept] 500 mg PO QDAY #30 08/18/19 08/21/19 08/21/19 15:56 Rx Pantoprazole [Protonix TAB] 40 mg PO BID #60 tablet 08/18/19 08/21/19 08/21/19 15:55 Rx Sevelamer Carbonate [Renvela] 800 mg PO 0730,1630 #30 tablet 08/18/19 08/21/19 08/21/19 15:56 Rx Total Parenteral Nutrition [TPN 12 ml IV DAILY@2000 ml 08/18/19 08/21/19 08/21/19 15:55 Rx Adult] hydrOXYzine HCL [Atarax] 50 mg PO QDAY #30 08/18/19 08/21/19 Unknown Rx levETIRAcetam [Keppra TAB] 500 mg PO BID #60 tablet 08/18/19 08/21/19 08/21/19 15:54 Rx oxyCODONE /ACETAMINOPHEN [Percocet 1 tab PO Q8H PRN #30 tablet 08/18/19 08/21/19 Unknown Rx 5/325 mg] predniSONE [Deltasone] 20 mg PO QDAY #30 08/18/19 08/21/19 Unknown Rx Active Meds: Active Medications Acetaminophen (Tylenol) 650 mg PO Q4H PRN PRN Reason: Pain MILD(1-3)/Fever >100.5/PORTER Acetaminophen (Tylenol) 650 mg [place] Q6H PRN PRN Reason: Pain, Mild (1-3) Last Admin: 09/03/19 04:11 Dose: 650 mg Documented by: Albuterol (Proventil) 2.5 mg IH QID PRN PRN Reason: Wheezing Clonidine HCl (Catapres-Tts Patch) 0.3 mg TD Th@1000 JOEL Cyanocobalamin (Vitamin B-12) 1,000 mcg PO QDAY [facility] Last Admin: 09/02/19 14:42 Dose: Not Given Documented by: Dextrose (D50w (25gm) Syringe) 0 ml IV Q30MIN PRN PRN Reason: Hypoglycemia Last Admin: 08/29/19 13:00 Dose: 20 ml Documented by: Diphenhydramine HCl (Benadryl) 25 mg IV Q6H PRN PRN Reason: Itching Last Admin: 09/01/19 02:08 Dose: 25 mg Documented by: Epoetin Mitch (Procrit) 20,000 unit SUB-Q FAN PRN PRN Reason: hemodialysis Last Admin: 09/02/19 17:30 Dose: 20,000 unit Documented by: Folic Acid (Folvite) 1 mg PO QDAY [facility] Last Admin: 09/02/19 14:42 Dose: Not Given Documented by: Haloperidol Lactate (Haldol) 5 mg IM Q6H PRN PRN Reason: Agitation Last Admin: 09/02/19 14:33 Dose: 5 mg Documented by: Hydralazine HCl (Apresoline) 10 mg IV Q4H PRN PRN Reason: BP >160/100 Last Admin: 09/01/19 06:00 Dose: 10 mg Documented by: Hydroxychloroquine Sulfate (Plaquenil) 200 mg PO QDAY [facility] Last Admin: 09/02/19 14:36 Dose: 200 mg Documented by: Hydroxyzine HCl (Atarax) 50 mg PO QDAY [facility] Last Admin: 09/02/19 14:36 Dose: 50 mg Documented by: Levetiracetam 750 mg/ Dextrose 107.5 mls @ 107.5 mls/hr IV Q12HR [facility] Last Admin: 09/03/19 11:09 Dose: 400 mls/hr Documented by: Sodium Chloride (Nacl 0.9%) 100 mls @ 999 mls/hr IV FAN PRN PRN Reason: Hypotension Amino Acids/Electrolytes/Dextrose (Tpn Adult) 1,560 mls @ 0 mls/hr IV DAILY@ 2000 [facility]; Protocol Stop: 09/04/19 08:01 Insulin Glargine (Lantus) 20 units SUB-Q QHS [facility] Last Admin: 09/03/19 00:36 Dose: 20 units Documented by: Insulin Glargine (Lantus) 10 units SUB-Q QAMDIAB [facility] Last Admin: 09/02/19 14:39 Dose: 10 units Documented by: Insulin Human Lispro (Humalog) 0 unit SUB-Q ACHS [facility]; Protocol Last Admin: 09/03/19 08:25 Dose: 4 unit Documented by: Losartan Potassium (Cozaar) 50 mg PO QDAY [facility] Last Admin: 09/02/19 14:41 Dose: Not Given Documented by: Melatonin (Melatonin) 5 mg PO QHS [facility] Last Admin: 09/02/19 23:21 Dose: Not Given Documented by: Metoclopramide HCl (Reglan) 5 mg IV Q6H PRN PRN Reason: Nausea And Vomiting Last Admin: 09/03/19 01:23 Dose: 5 mg Documented by: Metoprolol Tartrate (Metoprolol) 5 mg IV Q6HR PRN PRN Reason: Hypertension Last Admin: 09/03/19 06:08 Dose: 5 mg Documented by: Morphine Sulfate (Morphine) 1 mg IV Q4H PRN PRN Reason: Pain , Severe (7-10) Last Admin: 09/02/19 21:17 Dose: 1 mg Documented by: Mycophenolate Mofetil (Cellcept) 500 mg PO QDAY [facility] Last Admin: 09/02/19 14:37 Dose: 500 mg Documented by: Olanzapine (Zyprexa Zydis) 5 mg PO BID [facility] Last Admin: 09/02/19 23:22 Dose: Not Given Documented by: Ondansetron HCl (Zofran) 4 mg IV Q4H PRN PRN Reason: Nausea And Vomiting Last Admin: 09/02/19 21:16 Dose: 4 mg Documented by: Pantoprazole Sodium (Protonix) 40 mg IV QDAY [facility] Last Admin: 09/03/19 11:09 Dose: 40 mg Documented by: Promethazine HCl (Phenergan) 25 mg [place] Q6H PRN PRN Reason: Nausea And Vomiting Sevelamer Carbonate (Renvela) 800 mg PO 0730,1630 [facility] Last Admin: 09/02/19 20:48 Dose: Not Given Documented by: Sodium Chloride (Sodium Chloride Flush Syringe 10 Ml) 10 ml IV BID JOEL Last Admin: 09/02/19 23:21 Dose: 10 ml Documented by: Sodium Chloride (Sodium Chloride Flush Syringe 10 Ml) 10 ml IV PRN PRN PRN Reason: LINE FLUSH Last Admin: 08/22/19 22:32 Dose: 10 ml Documented by: Mental Status Exam - Vital signs Last Vital Signs Temp 99.8 F H 09/03/19 04:00 Pulse 136 H 09/03/19 06:08 Resp 34 H 09/03/19 04:00 BP 118/67 09/03/19 06:08 Pulse Ox 100 09/03/19 10:29 - Exam Orientation: person Affect: flat Mood: calm Thought content: paranoia Thought Process: Circumstantial Speech: slow Interaction: cooperative Results Result Diagrams: 09/04/19 14:25 09/04/19 04:40 Abnormal lab results 09/02/19 09/02/19 09/03/19 Range/Units 12:45 18: 00:06 WBC (4.5-11.0) K/mm3 RBC (3.65-5.03) M/mm3 Hgb (10.1-14.3) gm/dl Hct (30.3-42.9) % RDW (13.2-15.2) % Seg Neuts % (Manual) (40.0-70.0) % Lymphocytes % (Manual) (13.4-35.0) % Seg Neutrophils # Man (1.8-7.7) K/mm3 Lymphocytes # (Manual) (1.2-5.4) K/mm3 BUN (7-17) mg/dL Creatinine (0.7-1.2) mg/dL Glucose (65-100) mg/dL POC Glucose 362 H 148 H 277 H (70-105) 09/03/19 09/03/19 09/03/19 Range/Units 04:33 04:33 06:12 WBC 22.2 H (4.5-11.0) K/mm3 RBC 2.71 L (3.65-5.03) M/mm3 Hgb 7.5 L (10.1-14.3) gm/dl Hct 23.3 L (30.3-42.9) % RDW 18.1 H (13.2-15.2) % Seg Neuts % (Manual) 94.0 H (40.0-70.0) % Lymphocytes % (Manual) 4.0 L (13.4-35.0) % Seg Neutrophils # Man 20.9 H (1.8-7.7) K/mm3 Lymphocytes # (Manual) 0.9 L (1.2-5.4) K/mm3 BUN 88 H (7-17) mg/dL Creatinine 5.0 H (0.7-1.2) mg/dL Glucose 331 H (65-100) mg/dL POC Glucose 288 H (70-105) All other labs normal. Assessment and Plan Assessment and plan: mpression. Delirium. Today the patient was paranoid during the assessment. DDx: Unspecified Personality DO Recommendation/Plan: Continue 1013 and will continue Zydis ODT 5 mg BID for psychosis with encouragement. Place tablet on the patients's tongue for administration. Will obtain hepatic function panel and ammonia level. Talked with nephrology regarding her mental status and metabolic status. Recommend no narcotics at this time. Recommend Delirium precautions below: 1. Frequently reorient patient and involve him/her in their care (simple explanations of procedures, tests, medications). 2. Lights on and shades open during daytime hours. 3. Write date and goals of care in a visible place. 4. Try to avoid unnecessary interruptions to sleep during nighttime hours. 5. Obtain glasses, hearing aids from home if patient uses these at baseline. 6. Avoid medications that may exacerbate delirium (especially narcotics, benzodiazepines, barbiturates, ambien, lunesta, and medications with excessive anticholinergic properties). The patient has Percocet (PRN) and Atarax (scheduled) in her MAR? Recommend Atarax PRN and a NSAID for pain. Staffed with Dr Luis Rivera.
[2019-09-03] MEDS: OLANzapine ZYDIS 5 MG TAB PO SCH ×2 (12:34→20:59)
--- NOTE | 2019-09-03 12:38 | Progress Note ---
Assessment and Plan The patient remains in sinus tachycardia, which is likely d/t discomfort r/t pseudocyst. She has either refused or not tolerated PO medications, so will continue IV metoprolol as ordered. We have no further recommendations at this time. The patient has been evaluated by Dr. Draper. - Patient Problems (1) Altered mental status Current Visit: Yes Status: Acute Qualifiers: Altered mental status type: unspecified Qualified Code(s): R41.82 - Altered mental status, unspecified (2) NSTEMI (non-ST elevated myocardial infarction) Current Visit: Yes Status: Acute (3) End-stage renal disease needing dialysis Current Visit: Yes Status: Chronic (4) Anemia of chronic disease Current Visit: Yes Status: Chronic (5) H/O acute pancreatitis Current Visit: No Status: Acute (6) On total parenteral nutrition (TPN) Current Visit: Yes Status: Acute (7) Hypertension Current Visit: No Status: Chronic (8) Seizure disorder Current Visit: No Status: Chronic (9) Hypokalemia Current Visit: Yes Status: Acute (10) Leukocytosis Current Visit: Yes Status: Acute Qualifiers: Leukocytosis type: unspecified Qualified Code(s): D72.829 - Elevated white blood cell count, unspecified (11) Lupus Current Visit: No Status: Chronic Subjective Date of service: 09/03/19 Principal diagnosis: anbl trop Interval history: The patient remains tachycardic, but reports feeling fine. GI recommendations noted - patient may transfer to tertiary care center for treatment of pseudocyst. Objective Last Vital Signs Temp 99.8 F H 09/03/19 04:00 Pulse 136 H 09/03/19 06:08 Resp 34 H 09/03/19 04:00 BP 118/67 09/03/19 06:08 Pulse Ox 100 09/03/19 10:29 - Physical Examination General: No Apparent Distress, Cachectic, Other HEENT: Positive: PERRL Neck: Positive: neck supple, trachea midline, Other Cardiac: Positive: Regular Rhythm Lungs: Positive: Normal Exam Neuro: Positive: Grossly Intact, Other (delusional at times) Abdomen: Positive: Tender /Rectal: Other (deferred) Skin: Positive: Wound (circular open wounds on right arm and forehead ) Musculoskeletal: Decreased Range of Motion (BLE), other Extremities: Present: upper extr. pulses (2+), lower extr. pulses (2+) - Labs and Meds CBC 09/03/19 Range/Units 04:33 WBC 22.2 H (4.5-11.0) K/mm3 RBC 2.71 L (3.65-5.03) M/mm3 Hgb 7.5 L (10.1-14.3) gm/dl Hct 23.3 L (30.3-42.9) % Plt Count 209 (140-440) K/mm3 Comprehensive Metabolic Panel 09/03/19 Range/Units 04:33 Sodium 142 D (137-145) mmol/L Potassium 3.7 D (3.6-5.0) mmol/L Chloride 98.6 (98-107) mmol/L Carbon Dioxide 24 (22-30) mmol/L BUN 88 H (7-17) mg/dL Creatinine 5.0 H (0.7-1.2) mg/dL Glucose 331 H (65-100) mg/dL Calcium 9.4 (8.4-10.2) mg/dL - Imaging and Cardiology Echo: report reviewed (EF 55-60%, mild LVH, abnormal diastolic function, mild MR, mild to Mod TR, RVSP 41mmHg, minimal pericardial effusion. ) - EKG Sinus rhythms and dysrhythmias: sinus tachycardia Chamber hypertrophy or enlargement: left ventricular hypertro
--- NOTE | 2019-09-03 12:47 | Progress Note ---
Assessment and Plan - Patient Problems (1) Pancreatic pseudocyst Current Visit: Yes Status: Acute Plan to address problem: 29 yo F with 1. abd pain 2. 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 hx of necrotizing pancreatitis Plan: 1. Multiple pseudocysts. Large LUQ pseudocyst compressing on stomach likely leading to symptoms of n/v. Pseudocysts are immature and are not appropriate for surgical intervention at this time. IR consulted. Discussed with Dr. Quan, patient refusing drainage procedure. She now states that she will allow it. 2. NGT not placed due to patient refusal 3. NPO- try sips and chips 4. TPN - will need TPN indefinitely at this time as patient will need to be kept NPO. Doubt she will tolerate anything PO due to compression of stomach by pseudocyst 5. IVF 6. prn nausea control 7. prn pain control 8. Transfer in process to [facility] Thank you, please call with questions. Subjective Date of service: 09/03/19 Patient Reports: Positive: no new complaints, vomiting, other (Nurse reports that [facility] has accepted patient and now we are just waiting for a bed to open) Objective Vital Signs - 12hr 09/03/19 09/03/19 09/03/19 04:00 06:08 10:29 Temperature 99.8 F H Pulse Rate 133 H 136 H Pulse Rate [ 133 H From Monitor] Respiratory 34 H Rate Blood Pressure 118/67 Blood Pressure 144/73 [Right] O2 Sat by Pulse 100 100 Oximetry - General physical appearance no distress, no pain - Respiratory normal expansion, normal respiratory effort - Abdomen soft, not tender, distended, not guarding, not rigid - Integumentary no rash, no growths, no abnormal pigmentation - Labs 09/03/19 04:33 09/03/19 04:33 Diabetes panel 09/03/19 Range/Units 04:33 Sodium 142 D (137-145) mmol/L Potassium 3.7 D (3.6-5.0) mmol/L Chloride 98.6 (98-107) mmol/L Carbon Dioxide 24 (22-30) mmol/L BUN 88 H (7-17) mg/dL Creatinine 5.0 H (0.7-1.2) mg/dL Glucose 331 H (65-100) mg/dL Calcium 9.4 (8.4-10.2) mg/dL Calcium panel 09/03/19 Range/Units 04:33 Calcium 9.4 (8.4-10.2) mg/dL Pituitary panel 09/03/19 Range/Units 04:33 Sodium 142 D (137-145) mmol/L Potassium 3.7 D (3.6-5.0) mmol/L Chloride 98.6 (98-107) mmol/L Carbon Dioxide 24 (22-30) mmol/L BUN 88 H (7-17) mg/dL Creatinine 5.0 H (0.7-1.2) mg/dL Glucose 331 H (65-100) mg/dL Calcium 9.4 (8.4-10.2) mg/dL Adrenal panel 09/03/19 Range/Units 04:33 Sodium 142 D (137-145) mmol/L Potassium 3.7 D (3.6-5.0) mmol/L Chloride 98.6 (98-107) mmol/L Carbon Dioxide 24 (22-30) mmol/L BUN 88 H (7-17) mg/dL Creatinine 5.0 H (0.7-1.2) mg/dL Glucose 331 H (65-100) mg/dL Calcium 9.4 (8.4-10.2) mg/dL
--- NOTE | 2019-09-03 13:41 | Progress Note ---
Assessment and Plan 1. Necrotizing pancreatitis - expanding fluid collections. Recent rise in WBC worrisome for infection. - agree with plans for percutaneous drainage, to get fluid sample for culture, and possibly for relief of discomfort - if has infected fluid, needs drain placement and monitoring on abx - if has infected necrosis, as noted by lack of response, will need surgical debridement - meantime, if possible, place [facility] and give trial of enteral nutrition. Can monitor lipase to see if tolerates. Transfer plans noted. Discussed with [facility] service as well. Subjective Date of service: 09/03/19 Principal diagnosis: anbl trop Interval history: Pt in bed in NAD. Sleeping, not arousing easily. Objective - Constitutional Vitals: Vital Signs - 12hr 09/03/19 09/03/19 09/03/19 04:00 06:08 10:29 Temperature 99.8 F H Pulse Rate 133 H 136 H Pulse Rate [ 133 H From Monitor] Respiratory 34 H Rate Blood Pressure 118/67 Blood Pressure 144/73 [Right] O2 Sat by Pulse 100 100 Oximetry 09/03/19 12:00 Temperature 98.9 F Pulse Rate Pulse Rate [ From Monitor] Respiratory Rate Blood Pressure Blood Pressure [Right] O2 Sat by Pulse Oximetry General appearance: Present: no acute distress - Respiratory Respiratory effort: normal Respiratory: bilateral: CTA (anteriorly) - Cardiovascular Rhythm: regular (Tachycardic) Heart Sounds: Present: S1 & S2 - Gastrointestinal General gastrointestinal: Present: soft, tender (mild, upper), hypoactive bowel sounds - Labs CBC & Chem 7: 09/03/19 04:33 09/03/19 04:33 Labs: Abnormal lab results 09/02/19 09/03/19 09/03/19 Range/Units 18:19 00:06 04:33 WBC (4.5-11.0) K/mm3 RBC (3.65-5.03) M/mm3 Hgb (10.1-14.3) gm/dl Hct (30.3-42.9) % RDW (13.2-15.2) % Seg Neuts % (Manual) (40.0-70.0) % Lymphocytes % (Manual) (13.4-35.0) % Seg Neutrophils # Man (1.8-7.7) K/mm3 Lymphocytes # (Manual) (1.2-5.4) K/mm3 BUN 88 H (7-17) mg/dL Creatinine 5.0 H (0.7-1.2) mg/dL Glucose 331 H (65-100) mg/dL POC Glucose 148 H 277 H (70-105) 09/03/19 09/03/19 Range/Units 04:33 06:12 WBC 22.2 H (4.5-11.0) K/mm3 RBC 2.71 L (3.65-5.03) M/mm3 Hgb 7.5 L (10.1-14.3) gm/dl Hct 23.3 L (30.3-42.9) % RDW 18.1 H (13.2-15.2) % Seg Neuts % (Manual) 94.0 H (40.0-70.0) % Lymphocytes % (Manual) 4.0 L (13.4-35.0) % Seg Neutrophils # Man 20.9 H (1.8-7.7) K/mm3 Lymphocytes # (Manual) 0.9 L (1.2-5.4) K/mm3 BUN (7-17) mg/dL Creatinine (0.7-1.2) mg/dL Glucose (65-100) mg/dL POC Glucose 288 H (70-105) Medications & Allergies - Medications Allergies/Adverse Reactions: Allergies lactose Adverse Reaction (Verified 07/29/19 08:16) Unknown Home Medications: Home Medications Medication Instructions Recorded Confirmed Last Taken Type ALBUTEROL NEB's [Proventil 0.083% 2.5 mg IH QID PRN 07/26/19 08/21/19 07/25/19 History NEBS] Labetalol HCl [Labetalol 300mg TAB] 300 mg PO Q12H 07/26/19 08/21/19 07/25/19 History Mirtazapine 7.5 mg PO QDAY 07/26/19 08/21/19 07/25/19 History Pantoprazole [Protonix TAB] 40 mg PO BID 07/26/19 08/21/19 08/21/19 15:56 History Sevelamer HCl [Renagel] 800 mg PO BIDWM 07/26/19 08/21/19 07/25/19 History Acetaminophen [Acetaminophen TAB] 650 mg PO Q6H PRN tablet 08/18/19 08/21/19 Un known Rx Cyanocobalamin (Vitamin B-12) 1,000 mcg PO QDAY #20 08/18/19 08/21/19 Unknown Rx [Vitamin B-12] Epoetin Mitch 20,000 Unit [Procrit] 20,000 unit SUB-Q FAN PRN vial 08/18/19 08/21/19 Unknown Rx Folic Acid [Folvite] 1 mg PO QDAY #30 08/18/19 08/21/19 Unknown Rx Gabapentin 300 mg PO 3XW #60 08/18/19 08/21/19 08/21/19 15:58 Rx Hydroxychloroquine [Plaquenil] 200 mg PO QDAY #30 08/18/19 08/21/19 Unknown Rx Insulin Glargine [Lantus VIAL] 20 units SUB-Q QHS #1 units 08/18/19 08/21/19 08/21/19 15:57 Rx Labetalol [Labetalol 200mg TAB] 300 mg PO BID #60 tablet 08/18/19 08/21/19 Unknown Rx Losartan [Cozaar] 50 mg PO QDAY #30 08/18/19 08/21/19 Unknown Rx Mycophenolate [Cellcept] 500 mg PO QDAY #30 08/18/19 08/21/19 08/21/19 15:56 Rx Pantoprazole [Protonix TAB] 40 mg PO BID #60 tablet 08/18/19 08/21/19 08/21/19 15:55 Rx Sevelamer Carbonate [Renvela] 800 mg PO 0730,1630 #30 tablet 08/18/19 08/21/19 08/21/19 15:56 Rx Total Parenteral Nutrition [TPN 12 ml IV DAILY@2000 ml 08/18/19 08/21/19 08/21/19 15:55 Rx Adult] hydrOXYzine HCL [Atarax] 50 mg PO QDAY #30 08/18/19 08/21/19 Unknown Rx levETIRAcetam [Keppra TAB] 500 mg PO BID #60 tablet 08/18/19 08/21/19 08/21/19 15:54 Rx oxyCODONE /ACETAMINOPHEN [Percocet 1 tab PO Q8H PRN #30 tablet 08/18/19 08/21/19 Unknown Rx 5/325 mg] predniSONE [Deltasone] 20 mg PO QDAY #30 08/18/19 08/21/19 Unknown Rx Active Medications: Generic Name Dose Route Start Last Admin Trade Name Freq PRN Reason Stop Dose Admin Acetaminophen 650 mg 08/19/19 22:44 Tylenol PO Q4H PRN Pain MILD(1-3)/Fever >100.5/PORTER Acetaminophen 650 mg 08/26/19 13:00 09/03/19 04:11 Tylenol [place] 650 mg Q6H PRN Administration Pain, Mild (1-3) Albuterol 2.5 mg 08/20/19 09:00 Proventil IH QID PRN Wheezing Clonidine HCl 0.3 mg 09/03/19 14:00 Catapres-Tts Patch TD Sa [facility] Cyanocobalamin 1,000 mcg 08/20/19 10:00 09/02/19 14:42 Vitamin B-12 PO Not Given QDAY JOEL Dextrose 0 ml 08/19/19 22:43 08/29/19 13:00 D50w (25gm) Syringe IV 20 ml Q30MIN PRN Administration Hypoglycemia Diphenhydramine HCl 25 mg 08/22/19 22:22 09/01/19 02:08 Benadryl IV 25 mg Q6H PRN Administration Itching Epoetin Mitch 20,000 unit 08/20/19 09:17 09/02/19 17:30 Procrit SUB-Q 20,000 unit FAN PRN Administration hemodialysis Folic Acid 1 mg 08/20/19 10:00 09/02/19 14:42 Folvite PO Not Given QDAY [facility] Haloperidol Lactate 5 mg 09/02/19 11:00 09/02/19 14:33 Haldol IM 5 mg Q6H PRN Administration Agitation Hydralazine HCl 10 mg 08/21/19 13:00 09/01/19 06:00 Apresoline IV 10 mg Q4H PRN Administration BP >160/100 Hydroxychloroquine Sulfate 200 mg 08/20/19 10:00 09/02/19 14:36 Plaquenil PO 200 mg QDAY JOEL Administration Hydroxyzine HCl 50 mg 08/20/19 10:00 09/02/19 14:36 Atarax PO 50 mg QDAY JOEL Administration Levetiracetam 750 mg/ Dextrose 107.5 mls @ 107.5 mls/hr 08/26/19 12:30 09/03/19 11:09 IV 400 mls/hr Q12HR JOEL Administration Sodium Chloride 100 mls @ 999 mls/hr 09/01/19 19:40 Nacl 0.9% IV FAN PRN Hypotension Amino Acids/Electrolytes/Dextrose 1,560 mls @ 0 mls/hr 09/03/19 20:00 Tpn Adult IV 09/04/19 08:01 DAILY@1999 [facility] Protocol As Directed Insulin Glargine 20 units 08/20/19 22:00 09/03/19 00:36 Lantus SUB-Q 20 units QHS JOEL Administration Insulin Glargine 10 units 09/02/19 11:30 09/02/19 14:39 Lantus SUB-Q 10 units QAMDIAB JOEL Administration Insulin Human Lispro 0 unit 08/20/19 11:30 09/03/19 08:25 Humalog SUB-Q 4 unit ACHS [facility] Administration Protocol Losartan Potassium 50 mg 08/20/19 10:00 09/02/19 14:41 Cozaar PO Not Given QDAY [facility] Melatonin 5 mg 08/25/19 22:00 09/02/19 23:21 Melatonin PO Not Given QHS [facility] Metoclopramide HCl 5 mg 09/01/19 13:00 09/03/19 01:23 Reglan IV 5 mg Q6H PRN Administration Nausea And Vomiting Metoprolol Tartrate 5 mg 09/01/19 18:48 09/03/19 06:08 Metoprolol IV 5 mg Q6HR PRN Administration Hypertension Morphine Sulfate 1 mg 09/02/19 11:30 09/02/19 21:17 Morphine IV 1 mg Q4H PRN Administration Pain , Severe (7-10) Mycophenolate Mofetil 500 mg 08/20/19 10:00 09/02/19 14:37 Cellcept PO 500 mg QDAY JOEL Administration Olanzapine 5 mg 09/02/19 13:00 09/03/19 12:34 Zyprexa Zydis PO 5 mg BID JOEL Administration Ondansetron HCl 4 mg 08/21/19 13:00 09/02/19 21:16 Zofran IV 4 mg Q4H PRN Administration Nausea And Vomiting Pantoprazole Sodium 40 mg 09/01/19 12:30 09/03/19 11:09 Protonix IV 40 mg QDAY JOEL Administration Promethazine HCl 25 mg 08/21/19 12:46 Phenergan [place] Q6H PRN Nausea And Vomiting Sevelamer Carbonate 800 mg 08/20/19 16:30 09/02/19 20:48 Renvela PO Not Given 0730,1630 JOEL Sodium Chloride 10 ml 08/20/19 10:00 09/03/19 10:45 Sodium Chloride Flush Syringe 10 Ml IV 10 ml BID JOEL Administration Sodium Chloride 10 ml 08/19/19 22:44 08/22/19 22:32 Sodium Chloride Flush Syringe 10 Ml IV 10 ml PRN PRN Administration LINE FLUSH
[2019-09-03] MEDS: HYDROXYCHLOROQUINE 200 MG TAB PO SCH (14:00)
[2019-09-03] MEDS: CYANOCOBALAMIN (VIT B-12) 1000 MCG TAB PO SCH (14:00)
[2019-09-03] MEDS: MYCOPHENOLATE 500 MG TAB PO SCH (14:00)
[2019-09-03] MEDS: FOLIC ACID 1 MG TAB PO SCH (14:01)
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
[2019-09-03] MEDS ORDERED: PIPERACILLIN/TAZOBACTAM 3.375 3.375 GM/50 ML BAG IV SCH (15:00)
[2019-09-03] MEDS ORDERED: PIPERACIL-TAZO 2.25 GM/50 ML 2.25 GM/50 ML BAG IV SCH ×2 (16:00→20:00)
[2019-09-03] MEDS: cloNIDine TTS 0.3 MG/24 HR PATCH TD SCH (19:49)
[2019-09-03] MEDS ORDERED: TOTAL PARENTERAL NUTRITION 1,560 ML IV SCH (20:00)
[2019-09-03] MEDS: HALOPERIDOL LACTATE 5 MG/1 ML INJ IM PRN (20:58)
[2019-09-03] MEDS: MELATONIN 5 MG TAB PO SCH (20:59)
[2019-09-03] MEDS: DEXTROSE 50% IN WATER (25GM) 50 ML SYRINGE IV PRN (21:35)
[2019-09-04] MEDS: MORPHINE 2 MG/1 ML INJ IV PRN (00:56)
[2019-09-04] MEDS: METOPROLOL TARTRATE 5 MG/5 ML INJ IV PRN ×2 (03:00→23:50)
[2019-09-04 04:45] LABS: Eosinophils % (Auto) 0.3 % (0.0-4.3); Hematocrit 21.3 % (30.3-42.9); Hemoglobin 6.7 gm/dl (10.1-14.3); Lymphocytes # (Auto) 2.1 K/mm3 (1.2-5.4); Lymphocytes % (Auto) 10.7 % (13.4-35.0); Mean Corpuscular HGB Conc 31 % (30-34); Mean Corpuscular Volume 86 fl (79-97); Monocytes # (Auto) 1.3 K/mm3 (0.0-0.8); Monocytes % (Auto) 6.8 % (0.0-7.3); Platelet Count 206 K/mm3 (140-440); Red Blood Count 2.49 M/mm3 (3.65-5.03); Red Cell Distribution Width 17.8 % (13.2-15.2)
[2019-09-04] MEDS: diphenhydrAMINE 50 MG/ML VIAL IV PRN (04:50)
[2019-09-04 05:06] LABS: Calcium 8.7 mg/dL (8.4-10.2)
[2019-09-04 05:09] LABS: Albumin 1.5 g/dL (3.9-5); Bilirubin,Direct 0.3 mg/dL (0-0.2)
[2019-09-04] MEDS: INSULIN LISPRO 100 UNIT/ML SUB-Q SCH ×5 (05:27→21:38)
[2019-09-04] MEDS: SEVELAMER CARBONATE 800 MG TAB PO SCH ×2 (07:56→21:37)
[2019-09-04] MEDS: hydrALAZINE 20 MG/1 ML INJ IV PRN (07:57)
[2019-09-04] MEDS: INSULIN GLARGINE 100 UNITS/ML SUB-Q SCH ×3 (07:59→21:39)
[2019-09-04] MEDS ORDERED: PIPERACIL-TAZO 2.25 GM/50 ML 2.25 GM/50 ML BAG IV SCH (08:00)
[2019-09-04] MEDS: OLANzapine ZYDIS 5 MG TAB PO SCH ×2 (09:16→21:36)
[2019-09-04] MEDS: HYDROXYCHLOROQUINE 200 MG TAB PO SCH (09:16)
[2019-09-04] MEDS: PANTOPRAZOLE 40 MG INJ IV SCH ×2 (09:16→21:20)
[2019-09-04] MEDS: MYCOPHENOLATE 500 MG TAB PO SCH (09:17)
[2019-09-04] MEDS: hydrOXYzine HCL 25 MG TAB PO SCH ×2 (09:17→21:38)
[2019-09-04] MEDS: FOLIC ACID 1 MG TAB PO SCH (09:17)
[2019-09-04] MEDS: LOSARTAN 50 MG TAB PO SCH ×2 (09:19→21:38)
[2019-09-04] MEDS: CYANOCOBALAMIN (VIT B-12) 1000 MCG TAB PO SCH (09:19)
[2019-09-04] MEDS: ONDANSETRON 4 MG/2 ML INJ IV PRN (10:21)
--- NOTE | 2019-09-04 10:33 | Progress Note ---
Assessment and Plan 1. ESRD: On maintenance hemodialysis three times a week, TTS schedule. Patient has been refusing dialysis. Last dialyzed 09/02. 2. FEN: Hyperkalemia, improved. Metabolic acidosis, improved. Monitor lytes. 3. Anemia: Epogen with HD. S/p PRBC. 4. Seizures: On Keppra. 5. Metabolic encephalopathy. 6. Acute pancreatitis: CT abdomen showed worsening pancreatitis. Gen. Surgery recommended pancreatic drain, but pt refused. On PPN / TPN. 7. Tachycardia: Followed by Cards. 8. History of lupus: On Cellcept and Plaquenil. 9. Hyperglycemia. 10. Psychosis. 11. Deconditioning. Examination: General appearance: well-developed, appears stated age, not in distress HEENT: ATNC, BORA Neck: trachea midline Respiratory: Clear to Ascultation Heart: regular, S1S2, no murmur Gastrointestinal: soft, distended, mild tenderness over the L side, normoactive bowel sound Integumentary: no rash, warm and dry Neurologic: alert, follows some command, answers questions, confusion noted Musculoskeletal: trace LE edema Hemodialysis access: L arm AVG Subjective Date of service: 09/04/19 Principal diagnosis: anbl trop Interval history: Patient was seen and examined at the bedside. Sitter at the bedside. Objective - Vital Signs Vital signs: Vital Signs - 12hr 09/03/19 09/03/19 09/04/19 23:40 23:50 00:00 Temperature 98.1 F Pulse Rate 116 H 118 H 117 H Pulse Rate [ 118 H From Monitor] Respiratory 22 19 24 Rate Blood Pressure 113/58 116/60 121/76 O2 Sat by Pulse 99 99 100 Oximetry 09/04/19 09/04/19 09/04/19 00:10 00:20 00:30 Temperature Pulse Rate 117 H 119 H 117 H Pulse Rate [ From Monitor] Respiratory 26 H 15 25 H Rate Blood Pressure 130/64 117/66 131/73 O2 Sat by Pulse 99 98 98 Oximetry 09/04/19 09/04/19 09/04/19 00:40 00:50 01:00 EST Temperature Pulse Rate 115 H 117 H 116 H Pulse Rate [ From Monitor] Respiratory 22 18 47 H Rate Blood Pressure 134/76 128/68 151/93 O2 Sat by Pulse 98 98 Oximetry 09/04/19 09/04/19 09/04/19 01:10 EST 01:17 EST 02:00 Temperature Pulse Rate 113 H 114 H 118 H Pulse Rate [ From Monitor] Respiratory 45 H 45 H 26 H Rate Blood Pressure 140/85 151/91 153/104 O2 Sat by Pulse 99 100 100 Oximetry 09/04/19 09/04/19 09/04/19 02:10 02:20 02:30 Temperature Pulse Rate 115 H 116 H 115 H Pulse Rate [ From Monitor] Respiratory 27 H 27 H 39 H Rate Blood Pressure 148/92 151/95 157/103 O2 Sat by Pulse 100 100 100 Oximetry 09/04/19 09/04/19 09/04/19 02:40 02:50 03:00 Temperature Pulse Rate 115 H 117 H 119 H Pulse Rate [ 119 H From Monitor] Respiratory 42 H 26 H 19 Rate Blood Pressure 162/98 171/105 166/111 O2 Sat by Pulse 100 100 Oximetry 09/04/19 09/04/19 09/04/19 03:01 03:11 03:21 Temperature Pulse Rate 116 H 112 H 114 H Pulse Rate [ From Monitor] Respiratory 32 H 24 24 Rate Blood Pressure 166/111 158/92 158/92 O2 Sat by Pulse 100 100 100 Oximetry 09/04/19 09/04/19 09/04/19 03:31 03:41 03:51 Temperature Pulse Rate 115 H 117 H 119 H Pulse Rate [ From Monitor] Respiratory 23 25 H 26 H Rate Blood Pressure 158/92 158/92 158/92 O2 Sat by Pulse 100 100 100 Oximetry 09/04/19 09/04/19 09/04/19 04:00 04:11 04:20 Temperature 98.8 F Pulse Rate 120 H 122 H 125 H Pulse Rate [ From Monitor] Respiratory 30 H 25 H 13 Rate Blood Pressure 163/89 163/89 163/89 O2 Sat by Pulse 100 100 69 L Oximetry 09/04/19 09/04/19 09/04/19 04:31 04:41 05:35 Temperature Pulse Rate 122 H 122 H 122 H Pulse Rate [ From Monitor] Respiratory 35 H 31 H Rate Blood Pressure 157/89 163/89 O2 Sat by Pulse 99 100 Oximetry 09/04/19 09/04/19 09/04/19 07:57 08:00 09:19 Temperature 98.4 F Pulse Rate 131 H 133 H Pulse Rate [ From Monitor] Respiratory Rate Blood Pressure 174/96 122/68 O2 Sat by Pulse Oximetry - Lab 09/04/19 04:40 09/04/19 04:40 Most recent lab results Calcium 8.7 mg/dL (8.4-10.2) 09/04/19 04:40 Phosphorus 5.30 mg/dL (2.5-4.5) H 09/04/19 04:40 Magnesium 2.00 mg/dL (1.7-2.3) 09/04/19 04:40 Medications & Allergies - Medications Allergies/Adverse Reactions: Allergies lactose Adverse Reaction (Verified 07/29/19 08:16) Unknown Home Medications: Home Medications Medication Instructions Recorded Confirmed Last Taken Type ALBUTEROL NEB's [Proventil 0.083% 2.5 mg IH QID PRN 07/26/19 08/21/19 07/25/19 History NEBS] Labetalol HCl [Labetalol 300mg TAB] 300 mg PO Q12H 07/26/19 08/21/19 07/25/19 History Mirtazapine 7.5 mg PO QDAY 07/26/19 08/21/19 07/25/19 History Pantoprazole [Protonix TAB] 40 mg PO BID 07/26/19 08/21/19 08/21/19 15:56 History Sevelamer HCl [Renagel] 800 mg PO BIDWM 07/26/19 08/21/19 07/25/19 History Acetaminophen [Acetaminophen TAB] 650 mg PO Q6H PRN tablet 08/18/19 08/21/19 Unknown Rx Cyanocobalamin (Vitamin B-12) 1,000 mcg PO QDAY #20 08/18/19 08/21/19 Unknown Rx [Vitamin B-12] Epoetin Mitch 20,000 Unit [Procrit] 20,000 unit SUB-Q FAN PRN vial 08/18/19 08/21/19 Unknown Rx Folic Acid [Folvite] 1 mg PO QDAY #30 08/18/19 08/21/19 Unknown Rx Gabapentin 300 mg PO 3XW #60 08/18/19 08/21/19 08/21/19 15:58 Rx Hydroxychloroquine [Plaquenil] 200 mg PO QDAY #30 08/18/19 08/21/19 Unknown Rx Insulin Glargine [Lantus VIAL] 20 units SUB-Q QHS #1 units 08/18/19 08/21/19 08/21/19 15:57 Rx Labetalol [Labetalol 200mg TAB] 300 mg PO BID #60 tablet 08/18/19 08/21/19 Unknown Rx Losartan [Cozaar] 50 mg PO QDAY #30 08/18/19 08/21/19 Unknown Rx Mycophenolate [Cellcept] 500 mg PO QDAY #30 08/18/19 08/21/19 08/21/19 15:56 Rx Pantoprazole [Protonix TAB] 40 mg PO BID #60 tablet 08/18/19 08/21/19 08/21/19 15:55 Rx Sevelamer Carbonate [Renvela] 800 mg PO 0730,1630 #30 tablet 08/18/19 08/21/19 08/21/19 15:56 Rx Total Parenteral Nutrition [TPN 12 ml IV DAILY@2000 ml 08/18/19 08/21/19 08/21/19 15:55 Rx Adult] hydrOXYzine HCL [Atarax] 50 mg PO QDAY #30 08/18/19 08/21/19 Unknown Rx levETIRAcetam [Keppra TAB] 500 mg PO BID #60 tablet 08/18/19 08/21/19 08/21/19 15:54 Rx oxyCODONE /ACETAMINOPHEN [Percocet 1 tab PO Q8H PRN #30 tablet 08/18/19 08/21/19 Unknown Rx 5/325 mg] predniSONE [Deltasone] 20 mg PO QDAY #30 08/18/19 08/21/19 Unknown Rx Active Medications: Generic Name Dose Route Start Last Admin Trade Name Freq PRN Reason Stop Dose Admin Acetaminophen 650 mg 08/19/19 22:44 09/03/19 20:59 Tylenol PO 650 mg Q4H PRN Administration Pain MILD(1-3)/Fever >100.5/PORTER Acetaminophen 650 mg 08/26/19 13:00 09/03/19 04:11 Tylenol [place] 650 mg Q6H PRN Administration Pain, Mild (1-3) Albuterol 2.5 mg 08/20/19 09:00 Proventil IH QID PRN Wheezing Clonidine HCl 0.3 mg 09/03/19 14:00 09/03/19 19:49 Catapres-Tts Patch TD Not Given Sa JOEL Cyanocobalamin 1,000 mcg 08/20/19 10:00 09/04/19 09:19 Vitamin B-12 PO 1,000 mcg QDAY JOEL Administration Dextrose 0 ml 08/19/19 22:43 09/03/19 21:35 D50w (25gm) Syringe IV 15 ml Q30MIN PRN Administration Hypoglycemia Diphenhydramine HCl 25 mg 08/22/19 22:22 09/04/19 04:50 Benadryl IV 25 mg Q6H PRN Administration Itching Epoetin Mtich 20,000 unit 08/20/19 09:17 09/02/19 17:30 Procrit SUB-Q 20,000 unit FAN PRN Administration hemodialysis Folic Acid 1 mg 08/20/19 10:00 09/04/19 09:17 Folvite PO 1 mg QDAY JOEL Administration Haloperidol Lactate 5 mg 09/02/19 11:00 09/03/19 20:58 Haldol IM 5 mg Q6H PRN Administration Agitation Hydralazine HCl 10 mg 08/21/19 13:00 09/04/19 07:57 Apresoline IV 10 mg Q4H PRN Administration BP >160/100 Hydroxychloroquine Sulfate 200 mg 08/20/19 10:00 09/04/19 09:16 Plaquenil PO 200 mg QDAY JOEL Administration Hydroxyzine HCl 50 mg 08/20/19 10:00 09/04/19 09:17 Atarax PO 50 mg QDAY JOEL Administration Levetiracetam 750 mg/ Dextrose 107.5 mls @ 107.5 mls/hr 08/26/19 12:30 09/03/19 22:05 IV 400 mls/hr Q12HR JOEL Administration Sodium Chloride 100 mls @ 999 mls/hr 09/01/19 19:40 Nacl 0.9% IV FAN PRN Hypotension Piperacillin Sod/Tazobactam Sod 2.25 gm in 50 mls @ 100 mls/hr 09/04/19 08:00 09/04/19 09:23 Zosyn/Ns 2.25 Gm/50ml IV 100 mls/hr Q12H JOEL Administration Insulin Glargine 20 units 08/20/19 22:00 09/03/19 21:33 Lantus SUB-Q Not Given QHS JOEL Insulin Glargine 10 units 09/02/19 11:30 09/04/19 07:59 Lantus SUB-Q 10 units QAMDIAB JOEL Administration Insulin Human Lispro 0 unit 08/20/19 11:30 09/04/19 07:56 Humalog SUB-Q 4 unit ACHS JOEL Administration Protocol Losartan Potassium 50 mg 08/20/19 10:00 09/04/19 09:19 Cozaar PO 50 mg QDAY JOEL Administration Melatonin 5 mg 08/25/19 22:00 09/03/19 20:59 Melatonin PO 5 mg QHS JOEL Administration Metoclopramide HCl 5 mg 09/01/19 13:00 09/03/19 20:58 Reglan IV 5 mg Q6H PRN Administration Nausea And Vomiting Metoprolol Tartrate 5 mg 09/01/19 18:48 09/04/19 03:00 Metoprolol IV 5 mg Q6HR PRN Administration Hypertension Morphine Sulfate 1 mg 09/02/19 11:30 09/04/19 00:56 Morphine IV 1 mg Q4H PRN Administration Pain , Severe (7-10) Mycophenolate Mofetil 500 mg 08/20/19 10:00 09/04/19 09:17 Cellcept PO 500 mg QDAY JOEL Administration Olanzapine 5 mg 09/02/19 13:00 09/04/19 09:16 Zyprexa Zydis PO 5 mg BID JOEL Administration Ondansetron HCl 4 mg 08/21/19 13:00 09/04/19 10:21 Zofran IV 4 mg Q4H PRN Administration Nausea And Vomiting Pantoprazole Sodium 40 mg 09/01/19 12:30 09/04/19 09:16 Protonix IV 40 mg QDAY JOEL Administration Promethazine HCl 25 mg 08/21/19 12:46 Phenergan [place] Q6H PRN Nausea And Vomiting Sevelamer Carbonate 800 mg 08/20/19 16:30 09/04/19 07:56 Renvela PO 800 mg 0730,1630 JOEL Administration Sodium Chloride 10 ml 08/20/19 10:00 09/04/19 09:19 Sodium Chloride Flush Syringe 10 Ml IV 10 ml BID JOEL Administration Sodium Chloride 10 ml 08/19/19 22:44 08/22/19 22:32 Sodium Chloride Flush Syringe 10 Ml IV 10 ml PRN PRN Administration LINE FLUSH
--- NOTE | 2019-09-04 11:39 | Gastroenterology Progress Note ---
Assessment and Plan Anemia/hematemesis - very likely multifactorial, will increase PPI to BID and repeat Hgb, and if remains below 7 she should get PRBC transfusion. Regarding consideration of EGD, if she had active significant GI bleeding (multiple episodes hematemesis or melena and continued drop in Hgb) will pursue emergent EGD with 2 physician consent; otherwise given patient cannot provide consent will not pursue EGD unless she is in a life-threatening situation Pancreatitis - unclear etiology, but given elevating white count and clinical condition concerned for possiblity of infected necrosis. Therefore changing Abx to Meropenem (renal dosing of once daily as she is ESRD on HD) for empiric coverage. Given her extremely complicated medical condition I due recommend continuing with efforts for transfer to a tertiary care center in case she requires debridement. - Patient Problems (1) Altered mental status Current Visit: Yes Status: Acute Qualifiers: Altered mental status type: unspecified Qualified Code(s): R41.82 - Altered mental status, unspecified (2) Pancreatic pseudocyst Current Visit: Yes Status: Acute (3) Anemia of chronic disease Current Visit: Yes Status: Chronic (4) Anemia Current Visit: No Status: Acute (5) Pancreatitis Current Visit: No Status: Acute Qualifiers: Chronicity: acute Acute pancreatitis complication: unspecified Subjective Date of service: 09/04/19 Principal diagnosis: pancreatitis Interval history: patient still confused, sitter at bedside helpful with history Patient reports severe diffuse abd pain worse with palpation better with nothing, does radiate she thinks to back, cannot describe quality, constant Also had episode small volume hematemesis this AM, no melena Objective - Constitutional Vitals: Temp Pulse Resp BP Pulse Ox 98.4 F 133 H 31 H 122/68 100 09/04/19 08:00 09/04/19 09:19 09/04/19 04:41 09/04/19 09:19 09/04/19 04:41 General appearance: other (thin) - EENT Eyes: EOM intact ENT: hearing intact - Neck Neck: supple - Respiratory Respiratory effort: other (mild tachypnea) - Cardiovascular Rhythm: other (tachy) - Gastrointestinal General gastrointestinal: Present: other (distended, diffuse ttp) - Integumentary Integumentary: Present: dry - Labs CBC & Chem 7: 09/04/19 04:40 09/04/19 04:40 Labs: Laboratory Results - last 24 hr 09/03/19 09/03/19 09/03/19 12:20 18:04 21:26 WBC RBC Hgb Hct MCV MCH MCHC RDW Plt Count Lymph % (Auto) [place] % (Auto) Eos % (Auto) Baso % (Auto) Lymph # [place] # Eos # Baso # Seg Neutrophils % Seg Neutrophils # Sodium Potassium Chloride Carbon Dioxide Anion Gap BUN Creatinine Estimated GFR BUN/Creatinine Ratio Glucose POC Glucose 96 73 67 L Calcium Phosphorus Magnesium Total Bilirubin Direct Bilirubin Indirect Bilirubin AST ALT Alkaline Phosphatase Total Protein Albumin Albumin/Globulin Ratio 09/03/19 09/04/19 09/04/19 22:14 01:09 EST 04:40 WBC RBC Hgb Hct MCV MCH MCHC RDW Plt Count Lymph % (Auto) [place] % (Auto) Eos % (Auto) Baso % (Auto) Lymph # [place] # Eos # Baso # Seg Neutrophils % Seg Neutrophils # Sodium 138 Potassium 3.9 Chloride 94.4 L Carbon Dioxide 22 Anion Gap 26 BUN 112 H Creatinine 6.3 H Estimated GFR 9 BUN/Creatinine Ratio 18 Glucose 273 H POC Glucose 79 166 H Calcium 8.7 Phosphorus 5.30 H Magnesium 2.00 Total Bilirubin Direct Bilirubin Indirect Bilirubin AST ALT Alkaline Phosphatase Total Protein Albumin Albumin/Globulin Ratio 09/04/19 09/04/19 09/04/19 04:40 04:40 06:03 WBC 19.5 H RBC 2.49 L Hgb 6.7 L Hct 21.3 L MCV 86 MCH 27 L MCHC 31 RDW 17.8 H Plt Count 206 Lymph % (Auto) 10.7 L [place] % (Auto) 6.8 Eos % (Auto) 0.3 Baso % (Auto) 0.0 Lymph # 2.1 [place] # 1.3 H Eos # 0.0 Baso # 0.0 Seg Neutrophils % 82.2 H Seg Neutrophils # 16.0 H Sodium Potassium Chloride Carbon Dioxide Anion Gap BUN Creatinine Estimated GFR BUN/Creatinine Ratio Glucose POC Glucose 309 H Calcium Phosphorus Magnesium Total Bilirubin 0.40 Direct Bilirubin 0.3 H Indirect Bilirubin 0.1 AST 16 ALT 9 Alkaline Phosphatase 122 Total Protein 5.0 L Albumin 1.5 L Albumin/Globulin Ratio 0.4 09/04/19 09/04/19 07:55 11:22 WBC RBC Hgb Hct MCV MCH MCHC RDW Plt Count Lymph % (Auto) [place] % (Auto) Eos % (Auto) Baso % (Auto) Lymph # [place] # Eos # Baso # Seg Neutrophils % Seg Neutrophils # Sodium Potassium Chloride Carbon Dioxide Anion Gap BUN Creatinine Estimated GFR BUN/Creatinine Ratio Glucose POC Glucose 287 H 96 Calcium Phosphorus Magnesium Total Bilirubin Direct Bilirubin Indirect Bilirubin AST ALT Alkaline Phosphatase Total Protein Albumin Albumin/Globulin Ratio
--- NOTE | 2019-09-04 12:48 | Progress Note ---
Assessment and Plan The patient remains in sinus tachycardia, which is likely d/t discomfort r/t pseudocyst. She has either refused or not tolerated PO medications, so will continue IV metoprolol as ordered. We have no further recommendations at this time and will sign off. The patient has been evaluated by Dr. Draper. - Patient Problems (1) Altered mental status Current Visit: Yes Status: Acute Qualifiers: Altered mental status type: unspecified Qualified Code(s): R41.82 - Altered mental status, unspecified (2) NSTEMI (non-ST elevated myocardial infarction) Current Visit: Yes Status: Acute (3) End-stage renal disease needing dialysis Current Visit: Yes Status: Chronic (4) Anemia of chronic disease Current Visit: Yes Status: Chronic (5) H/O acute pancreatitis Current Visit: No Status: Acute (6) On total parenteral nutrition (TPN) Current Visit: Yes Status: Acute (7) Hypertension Current Visit: No Status: Chronic (8) Seizure disorder Current Visit: No Status: Chronic (9) Hypokalemia Current Visit: Yes Status: Acute (10) Leukocytosis Current Visit: Yes Status: Acute Qualifiers: Leukocytosis type: unspecified Qualified Code(s): D72.829 - Elevated white blood cell count, unspecified (11) Lupus Current Visit: No Status: Chronic Subjective Date of service: 09/04/19 Principal diagnosis: pancreatitis Interval history: The patient is lying in bed in [facility]. She remains in sinus tachycardia. Transfer to [place] or [place] pending. Objective Last Vital Signs Temp 99.4 F 09/04/19 12:00 Pulse 133 H 09/04/19 09:19 Resp 31 H 09/04/19 04:41 BP 122/68 09/04/19 09:19 Pulse Ox 100 09/04/19 04:41 - Physical Examination General: No Apparent Distress, Cachectic, Other HEENT: Positive: PERRL Neck: Positive: neck supple, trachea midline, Other Cardiac: Positive: Regular Rhythm Lungs: Positive: Normal Exam Neuro: Positive: Grossly Intact, Other (delusional at times) Abdomen: Positive: Tender /Rectal: Other (deferred) Skin: Positive: Wound (circular open wounds on right arm and forehead ) Musculoskeletal: Decreased Range of Motion (BLE), other Extremities: Present: upper extr. pulses (2+), lower extr. pulses (2+) - Labs and Meds Cardiac Enzymes 09/04/19 Range/Units 04:40 AST 16 (5-40) units/L CBC 09/04/19 Range/Units 04:40 WBC 19.5 H (4.5-11.0) K/mm3 RBC 2.49 L (3.65-5.03) M/mm3 Hgb 6.7 L (10.1-14.3) gm/dl Hct 21.3 L (30.3-42.9) % Plt Count 206 (140-440) K/mm3 Lymph # 2.1 (1.2-5.4) K/mm3 [place] # 1.3 H (0.0-0.8) K/mm3 Eos # 0.0 (0.0-0.4) K/mm3 Baso # 0.0 (0.0-0.1) K/mm3 Comprehensive Metabolic Panel 09/04/19 09/04/19 Range/Units 04:40 04:40 Sodium 138 (137-145) mmol/L Potassium 3.9 (3.6-5.0) mmol/L Chloride 94.4 L (98-107) mmol/L Carbon Dioxide 22 (22-30) mmol/L BUN 112 H (7-17) mg/dL Creatinine 6.3 H (0.7-1.2) mg/dL Glucose 273 H (65-100) mg/dL Calcium 8.7 (8.4-10.2) mg/dL Direct Bilirubin 0.3 H (0-0.2) mg/dL Indirect Bilirubin 0.1 mg/dL AST 16 (5-40) units/L ALT 9 (7-56) units/L Alkaline Phosphatase 122 (35-129) units/L Total Protein 5.0 L (6.3-8.2) g/dL Albumin 1.5 L (3.9-5) g/dL - Imaging and Cardiology Echo: report reviewed (EF 55-60%, mild LVH, abnormal diastolic function, mild MR, mild to Mod TR, RVSP 41mmHg, minimal pericardial effusion. ) - EKG Sinus rhythms and dysrhythmias: sinus tachycardia Chamber hypertrophy or enlargement: left ventricular hypertro
[2019-09-04] MEDS: levETIRAcetam 750 MG in DEXTROSE 5% IN WATER 100 ML IV SCH ×2 (12:51→21:35)
--- NOTE | 2019-09-04 12:51 | Progress Note ---
Assessment and Plan - Patient Problems (1) Pancreatic pseudocyst Current Visit: Yes Status: Acute Plan to address problem: 29 yo F with 1. abd pain 2. 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 hx of necrotizing pancreatitis Plan: 1. Multiple pseudocysts. Large LUQ pseudocyst compressing on stomach likely leading to symptoms of n/v. Pseudocysts are immature and are not appropriate for surgical intervention at this time. IR consulted. Discussed with Dr. Quan, patient refusing drainage procedure. She now states that she will allow it. 2. NGT not placed due to patient refusal 3. NPO- sips and chips as tolerated. She did have another episode of vomiting today. 4. TPN - will need TPN indefinitely at this time as patient will need to be kept NPO. Doubt she will tolerate anything PO due to compression of stomach by pseudocyst 5. IVF 6. prn nausea control 7. prn pain control 8. Transfer in process to [place] Thank you, please call with questions. Subjective Date of service: 09/04/19 Patient Reports: Positive: no new complaints, vomiting Objective Vital Signs - 12hr 09/04/19 09/04/19 09/04/19 01:00 EST 01:10 EST 01:17 EST Temperature Pulse Rate 116 H 113 H 114 H Pulse Rate [ From Monitor] Respiratory 47 H 45 H 45 H Rate Blood Pressure 151/93 140/85 151/91 O2 Sat by Pulse 99 100 Oximetry 09/04/19 09/04/19 09/04/19 02:00 02:10 02:20 Temperature Pulse Rate 118 H 115 H 116 H Pulse Rate [ From Monitor] Respiratory 26 H 27 H 27 H Rate Blood Pressure 153/104 148/92 151/95 O2 Sat by Pulse 100 100 100 Oximetry 09/04/19 09/04/19 09/04/19 02:30 02:40 02:50 Temperature Pulse Rate 115 H 115 H 117 H Pulse Rate [ From Monitor] Respiratory 39 H 42 H 26 H Rate Blood Pressure 157/103 162/98 171/105 O2 Sat by Pulse 100 100 Oximetry 09/04/19 09/04/19 09/04/19 03:00 03:01 03:11 Temperature Pulse Rate 119 H 116 H 112 H Pulse Rate [ 119 H From Monitor] Respiratory 19 32 H 24 Rate Blood Pressure 166/111 166/111 158/92 O2 Sat by Pulse 100 100 100 Oximetry 09/04/19 09/04/19 09/04/19 03:21 03:31 03:41 Temperature Pulse Rate 114 H 115 H 117 H Pulse Rate [ From Monitor] Respiratory 24 23 25 H Rate Blood Pressure 158/92 158/92 158/92 O2 Sat by Pulse 100 100 100 Oximetry 09/04/19 09/04/19 09/04/19 03:51 04:00 04:11 Temperature 98.8 F Pulse Rate 119 H 120 H 122 H Pulse Rate [ From Monitor] Respiratory 26 H 30 H 25 H Rate Blood Pressure 158/92 163/89 163/89 O2 Sat by Pulse 100 100 100 Oximetry 09/04/19 09/04/19 09/04/19 04:20 04:31 04:41 Temperature Pulse Rate 125 H 122 H 122 H Pulse Rate [ From Monitor] Respiratory 13 35 H 31 H Rate Blood Pressure 163/89 157/89 163/89 O2 Sat by Pulse 69 L 99 100 Oximetry 09/04/19 09/04/19 09/04/19 05:35 07:57 08:00 Temperature 98.4 F Pulse Rate 122 H 131 H Pulse Rate [ From Monitor] Respiratory Rate Blood Pressure 174/96 O2 Sat by Pulse Oximetry 09/04/19 09/04/19 09:19 12:00 Temperature 99.4 F Pulse Rate 133 H Pulse Rate [ From Monitor] Respiratory Rate Blood Pressure 122/68 O2 Sat by Pulse Oximetry - General physical appearance no distress, no pain - Respiratory normal expansion, normal respiratory effort - Abdomen soft, not tender, distended, not guarding - Labs 09/04/19 04:40 09/04/19 04:40 Diabetes panel 09/04/19 09/04/19 Range/Units 04:40 04:40 Sodium 138 (137-145) mmol/L Potassium 3.9 (3.6-5.0) mmol/L Chloride 94.4 L (98-107) mmol/L Carbon Dioxide 22 (22-30) mmol/L BUN 112 H (7-17) mg/dL Creatinine 6.3 H (0.7-1.2) mg/dL Glucose 273 H (65-100) mg/dL Calcium 8.7 (8.4-10.2) mg/dL AST 16 (5-40) units/L ALT 9 (7-56) units/L Alkaline Phosphatase 122 (35-129) units/L Total Protein 5.0 L (6.3-8.2) g/dL Albumin 1.5 L (3.9-5) g/dL Calcium panel 09/04/19 09/04/19 Range/Units 04:40 04:40 Calcium 8.7 (8.4-10.2) mg/dL Phosphorus 5.30 H (2.5-4.5) mg/dL Albumin 1.5 L (3.9-5) g/dL Pituitary panel 09/04/19 Range/Units 04:40 Sodium 138 (137-145) mmol/L Potassium 3.9 (3.6-5.0) mmol/L Chloride 94.4 L (98-107) mmol/L Carbon Dioxide 22 (22-30) mmol/L BUN 112 H (7-17) mg/dL Creatinine 6.3 H (0.7-1.2) mg/dL Glucose 273 H (65-100) mg/dL Calcium 8.7 (8.4-10.2) mg/dL Adrenal panel 09/04/19 09/04/19 Range/Units 04:40 04:40 Sodium 138 (137-145) mmol/L Potassium 3.9 (3.6-5.0) mmol/L Chloride 94.4 L (98-107) mmol/L Carbon Dioxide 22 (22-30) mmol/L BUN 112 H (7-17) mg/dL Creatinine 6.3 H (0.7-1.2) mg/dL Glucose 273 H (65-100) mg/dL Calcium 8.7 (8.4-10.2) mg/dL Total Bilirubin 0.40 (0.1-1.2) mg/dL AST 16 (5-40) units/L ALT 9 (7-56) units/L Alkaline Phosphatase 122 (35-129) units/L Total Protein 5.0 L (6.3-8.2) g/dL Albumin 1.5 L (3.9-5) g/dL
--- NOTE | 2019-09-04 13:23 | Consultation ---
History of Present Illness Consult date: 09/04/19 Requesting physician: NOHEMY AVILA Reason for consult: hypoxemia, other (acute hypoxic respiratory failure) History of present illness: 29-year-old woman with a history of lupus, end-stage renal disease on dialysis, hypertension, anemia wasrecently discharged from the hospital after treatment of necrotizing pancreatitis, right labial abscess, and re-admitted within 24 hours of discharge. Family is unable to care for her, patient is unable to care for herself. No episodes of confusion. She was discharged on TPN, her blood sugar was found to be elevated and she had elevated troponin, she is asymptomatic. She uses a wheelchair. Has been on admission, but had increasing FIO2 requirements and I have been consulted for hypoxemia possible pulmonary edema. Patient was seen and examined. Vitals, labs, medications, chart was reviewed. She is currently on a Venturi- mask at 50% with oxygen saturations of 94% She denies any cough, no chest pain, no shortness of breath. She just vomited some blood, per RN. Since admission Had intermittent seizures because of noncompliance. 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 Has severe anemia and s/p 2 units PRBC transfusion. 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 Family not willing to take her back, difficult to placement. Now abdominal symptom worsen, CT showed worsening pancreatitis. Being evaluated by general surgeon and GI. Plan to transfer to [facility] for higher level of care -possible surgical intervention for enlarged pseudocyst.. CT abdomen and pelvis without contrast: 1. Worsening pancreatitis with enlarging peripancreatic loculated fluid collections extending inferiorly into the left flank. 2. Persistent splenic infarctions, unchanged. 3. Moderate cardiomegaly with tiny right and small left pleural effusions. 4 moderate bilateral renal atrophy. Review Of Systems: Constitutional: no weight loss, fever, chills Ears, eyes, nose, mouth and throat: no nasal congestion, no nasal discharge, no sinus pressure, blurry vision, diplopia Neck: No neck pain or rigidity. Cardiovascular: No palpitations, chest pain Respiratory: No shortness of breath, cough Gastrointestinal: No hematochezia, + abdominal pain, + hematemesis Genitourinary : no dysuria, frequency , hematuria Musculoskeletal: no muscle ache , joint pain Integumentary: no rash, no pruritis Neurological: no parathesias, focal weakness Endocrine: no cold or heat intolerance, no polyuria or polydipsia Hematologic/Lymphatic: no easy bruising, no easy bleeding, no gland swelling Allergic/Immunologic: no urticaria, no angioedema. PAST MEDICAL HISTORY: lupus, end-stage renal disease on dialysis, hypertension, necrotizing pancreatitis, right labial abscess, anemia PAST SURGICAL HISTORY: AV fistula, hip surgery FAMILY HISTORY:hypertension, diabetes SOCIAL HISTORY: Denies tobacco, drugs, alcohol Past History Past Medical History: other (as per HPI) Past Surgical History: Other (left leg fracture, AV fistula, peripheral neuropathy) Social history: lives with family. denies: smoking, alcohol abuse Family history: hypertension Medications and Allergies Allergies Allergy/AdvReac Type Severity Reaction Status Date / Time lactose AdvReac Unknown Verified 07/29/19 08:16 Home Medications Medication Instructions Recorded Confirmed Last Taken Type ALBUTEROL NEB's [Proventil 0.083% 2.5 mg IH QID PRN 07/26/19 08/21/19 07/25/19 History NEBS] Labetalol HCl [Labetalol 300mg TAB] 300 mg PO Q12H 07/26/19 08/21/19 07/25/19 History Mirtazapine 7.5 mg PO QDAY 07/26/19 08/21/19 07/25/19 History Pantoprazole [Protonix TAB] 40 mg PO BID 07/26/19 08/21/19 08/21/19 15:56 History Sevelamer HCl [Renagel] 800 mg PO BIDWM 07/26/19 08/21/19 07/25/19 History Acetaminophen [Acetaminophen TAB] 650 mg PO Q6H PRN tablet 08/18/19 08/21/19 Unknown Rx Cyanocobalamin (Vitamin B-12) 1,000 mcg PO QDAY #20 08/18/19 08/21/19 Unknown Rx [Vitamin B-12] Epoetin Mitch 20,000 Unit [Procrit] 20,000 unit SUB-Q FAN PRN vial 08/18/19 08/21/19 Unknown Rx Folic Acid [Folvite] 1 mg PO QDAY #30 08/18/19 08/21/19 Unknown Rx Gabapentin 300 mg PO 3XW #60 08/18/19 08/21/1908/21/19 15:58 Rx Hydroxychloroquine [Plaquenil] 200 mg PO QDAY #30 08/18/19 08/21/19 Unknown Rx Insulin Glargine [Lantus VIAL] 20 units SUB-Q QHS #1 units 08/18/19 08/21/19 08/21/19 15:57 Rx Labetalol [Labetalol 200mg TAB] 300 mg PO BID #60 tablet 08/18/19 08/21/19 Un known Rx Losartan [Cozaar] 50 mg PO QDAY #30 08/18/19 08/21/19 Unknown Rx Mycophenolate [Cellcept] 500 mg PO QDAY #30 08/18/19 08/21/19 08/21/19 15:56 Rx Pantoprazole [Protonix TAB] 40 mg PO BID #60 tablet 08/18/19 08/21/19 08/21/19 15:55 Rx Sevelamer Carbonate [Renvela] 800 mg PO 0730,1630 #30 tablet 08/18/19 08/21/19 08/21/19 15:56 Rx Total Parenteral Nutrition [TPN 12 ml IV DAILY@2000 ml 08/18/19 08/21/19 08/21/19 15:55 Rx Adult] hydrOXYzine HCL [Atarax] 50 mg PO QDAY #30 08/18/19 08/21/19 Unknown Rx levETIRAcetam [Keppra TAB] 500 mg PO BID #60 tablet 08/18/19 08/21/19 08/21/19 15:54 Rx oxyCODONE /ACETAMINOPHEN [Percocet 1 tab PO Q8H PRN #30 tablet 08/18/19 08/21/19 Unknown Rx 5/325 mg] predniSONE [Deltasone] 20 mg PO QDAY #30 08/18/19 08/21/19 Unknown Rx Active Meds: Active Medications Acetaminophen (Tylenol) 650 mg PO Q4H PRN PRN Reason: Pain MILD(1-3)/Fever >100.5/PORTER Last Admin: 09/03/19 20:59 Dose: 650 mg Documented by: Acetaminophen (Tylenol) 650 mg [place] Q6H PRN PRN Reason: Pain, Mild (1-3) Last Admin: 09/03/19 04:11 Dose: 650 mg Documented by: Albuterol (Proventil) 2.5 mg IH QID PRN PRN Reason: Wheezing Clonidine HCl (Catapres-Tts Patch) 0.3 mg TD Sa [facility] Last Admin: 09/03/19 19:49 Dose: Not Given Documented by: Cyanocobalamin (Vitamin B-12) 1,000 mcg PO QDAY [facility] Last Admin: 09/04/19 09:19 Dose: 1,000 mcg Documented by: Dextrose (D50w (25gm) Syringe) 0 ml IV Q30MIN PRN PRN Reason: Hypoglycemia Last Admin: 09/03/19 21:35 Dose: 15 ml Documented by: Diphenhydramine HCl (Benadryl) 25 mg IV Q6H PRN PRN Reason: Itching Last Admin: 09/04/19 04:50 Dose: 25 mg Documented by: Epoetin Mitch (Procrit) 20,000 unit SUB-Q FAN PRN PRN Reason: hemodialysis Last Admin: 09/02/19 17:30 Dose: 20,000 unit Documented by: Folic Acid (Folvite) 1 mg PO QDAY [facility] Last Admin: 09/04/19 09:17 Dose: 1 mg Documented by: Haloperidol Lactate (Haldol) 5 mg IM Q6H PRN PRN Reason: Agitation Last Admin: 09/03/19 20:58 Dose: 5 mg Documented by: Hydralazine HCl (Apresoline) 10 mg IV Q4H PRN PRN Reason: BP >160/100 Last Admin: 09/04/19 07:57 Dose: 10 mg Documented by: Hydroxychloroquine Sulfate (Plaquenil) 200 mg PO QDAY [facility] Last Admin: 09/04/19 09:16 Dose: 200 mg Documented by: Hydroxyzine HCl (Atarax) 50 mg PO QDAY [facility] Last Admin: 09/04/19 09:17 Dose: 50 mg Documented by: Levetiracetam 750 mg/ Dextrose 107.5 mls @ 107.5 mls/hr IV Q12HR [facility] Last Admin: 09/04/19 12:51 Dose: 400 mls/hr Documented by: Sodium Chloride (Nacl 0.9%) 100 mls @ 999 mls/hr IV FAN PRN PRN Reason: Hypotension Meropenem (Merrem/Ns 500 Mg/50 Ml) 500 mg in 50 mls @ 50 mls/hr IV Q24H [facility] Amino Acids/Electrolytes/Dextrose (Tpn Adult) 1,560 mls @ 0 mls/hr IV DAILY@1999 [facility]; Protocol Amino Acids/Electrolytes/Dextrose (Tpn Adult) 1,560 mls @ 0 mls/hr IV DAILY@1999 [facility]; Protocol Insulin Glargine (Lantus) 20 units SUB-Q QHS [facility] Last Admin: 09/03/19 21:33 Dose: Not Given Documented by: Insulin Glargine (Lantus) 10 units SUB-Q QAMDIAB [facility] Last Admin: 09/04/19 07:59 Dose: 10 units Documented by: Insulin Human Lispro (Humalog) 0 unit SUB-Q ACHS [facility]; Protocol Last Admin: 09/04/19 12:44 Dose: Not Given Documented by: Losartan Potassium (Cozaar) 50 mg PO QDAY [facility] Last Admin: 09/04/19 09:19 Dose: 50 mg Documented by: Melatonin (Melatonin) 5 mg PO QHS [facility] Last Admin: 09/03/19 20:59 Dose: 5 mg Documented by: Metoclopramide HCl (Reglan) 5 mg IV Q6H PRN PRN Reason: Nausea And Vomiting Last Admin: 09/03/19 20:58 Dose: 5 mg Documented by: Metoprolol Tartrate (Metoprolol) 5 mg IV Q6HR PRN PRN Reason: Hypertension Last Admin: 09/04/19 03:00 Dose: 5 mg Documented by: Morphine Sulfate (Morphine) 1 mg IV Q4H PRN PRN Reason: Pain , Severe (7-10) Last Admin: 09/04/19 00:56 Dose: 1 mg Documented by: Mycophenolate Mofetil (Cellcept) 500 mg PO QDAY [facility] Last Admin: 09/04/19 09:17 Dose: 500 mg Documented by: Olanzapine (Zyprexa Zydis) 5 mg PO BID [facility] Last Admin: 09/04/19 09:16 Dose: 5 mg Documented by: Ondansetron HCl (Zofran) 4 mg IV Q4H PRN PRN Reason: Nausea And Vomiting Last Admin: 09/04/19 10:21 Dose: 4 mg Documented by: Pantoprazole Sodium (Protonix) 40 mg IV BID [facility] Promethazine HCl (Phenergan) 25 mg [place] Q6H PRN PRN Reason: Nausea And Vomiting Sevelamer Carbonate (Renvela) 800 mg PO 0730,1630 [facility] Last Admin: 09/04/19 07:56 Dose: 800 mg Documented by: Sodium Chloride (Sodium Chloride Flush Syringe 10 Ml) 10 ml IV BID [facility] Last Admin: 09/04/19 09:19 Dose: 10 ml Documented by: Sodium Chloride (Sodium Chloride Flush Syringe 10 Ml) 10 ml IV PRN PRN PRN Reason: LINE FLUSH Last Admin: 08/22/19 22:32 Dose: 10 ml Documented by: Physical Examination Vital signs: Vital Signs Pulse Resp Pulse Ox 104 H 14 96 08/19/19 18:22 08/19/19 18:22 08/19/19 18:22 Reviewed. General appearance: Present: mild distress on venturi mask, chronically ill looking, awake, alert, oriented x3 - EENT Eyes: Present: PERRL, EOM intact - Neck Neck: Present: supple, normal ROM - Respiratory Respiratory effort: normal of normal Respiratory: bilateral: diminished, rales, negative: rhonchi, wheezing - Cardiovascular Rhythm: regular Heart Sounds: Present: S1 & S2 - Extremities Extremities: no ischemia, No edema, abnormal (Chronic skin changes) - Abdominal General gastrointestinal: soft, + diffuse tender, distended, normal bowel sounds - Integumentary Integumentary: Present: clear, warm - Psychiatric Psychiatric: appropriate mood/affect, cooperative - Neurologic Neurologic: moves all extremities Results - Laboratory Findings CBC and BMP: 09/05/19 05:20 09/05/19 03:40 Abnormal lab findings: Abnormal Labs 08/19/19 08/19/19 08/19/19 20:48 20:48 23:48 WBC 17.2 H RBC 2.50 L Hgb 6.8 L Hct 22.3 L MCH 27 L RDW 18.6 H Lymph % (Auto) Gila % (Auto) Gila # Seg Neutrophils % Seg Neuts % (Manual) Lymphocytes % (Manual) Monocytes % (Manual) Nucleated RBC % Seg Neutrophils # Seg Neutrophils # Man Lymphocytes # (Manual) Monocytes # (Manual) Sodium 131 L Potassium 2.8 L* D Chloride 92.9 L Carbon Dioxide BUN 64 H Creatinine 5.2 H Glucose 981 H* POC Glucose Calcium 8.2 L Phosphorus Magnesium Direct Bilirubin ALT < 5 L Alkaline Phosphatase CK-MB (CK-2) 4.8 H CK-MB (CK-2) Rel Index 8.8 H Troponin T 0.249 H* 0.288 H* C-Reactive Protein Total Protein 4.7 L Albumin 1.9 L Triglycerides 197 H LDL Cholesterol Direct 34 L HDL Cholesterol 19 L Lipase 251 H Crossmatch 08/20/19 08/20/19 08/20/19 00:06 00:09 01:40 WBC RBC Hgb Hct MCH RDW Lymph % (Auto) Gila % (Auto) Gila # Seg Neutrophils % Seg Neuts % (Manual) Lymphocytes % (Manual) Monocytes % (Manual) Nucleated RBC % Seg Neutrophils # Seg Neutrophils # Man Lymphocytes # (Manual) Monocytes # (Manual) Sodium Potassium 3.3 L Chloride 96.6 L Carbon Dioxide BUN 71 H Creatinine 6.0 H Glucose 180 H POC Glucose 180 H 142 H Calcium Phosphorus Magnesium Direct Bilirubin ALT Alkaline Phosphatase CK-MB (CK-2) CK-MB (CK-2) Rel Index Troponin T C-Reactive Protein Total Protein Albumin Triglycerides LDL Cholesterol Direct HDL Cholesterol Lipase Crossmatch 08/20/19 08/20/19 08/20/19 10:38 10:38 17:24 WBC RBC Hgb Hct MCH RDW Lymph % (Auto) Gila % (Auto) Gila # Seg Neutrophils % Seg Neuts % (Manual) Lymphocytes % (Manual) Monocytes % (Manual) Nucleated RBC % Seg Neutrophils # Seg Neutrophils # Man Lymphocytes # (Manual) Monocytes # (Manual) Sodium Potassium 2.9 L* Chloride Carbon Dioxide 17 L D BUN 64 H Creatinine 5.6 H Glucose POC Glucose 124 H Calcium 6.8 L D Phosphorus Magnesium Direct Bilirubin ALT < 5 L Alkaline Phosphatase CK-MB (CK-2) 4.5 H CK-MB (CK-2) Rel Index 10.7 H Troponin T 0.323 H* C-Reactive Protein Total Protein 4.1 L Albumin 1.4 L Triglycerides LDL Cholesterol Direct HDL Cholesterol Lipase Crossmatch 08/20/19 08/20/19 08/21/19 20:20 21:25 07:55 WBC RBC Hgb Hct MCH RDW Lymph % (Auto) Gila % (Auto) Gila # Seg Neutrophils % Seg Neuts % (Manual) Lymphocytes % (Manual) Monocytes % (Manual) Nucleated RBC % Seg Neutrophils # Seg Neutrophils # Man Lymphocytes # (Manual) Monocytes # (Manual) Sodium Potassium 5.2 H D Chloride 97.6 L Carbon Dioxide BUN 52 H Creatinine 5.0 H Glucose 287 H POC Glucose 161 H Calcium Phosphorus Magnesium 1.60 L Direct Bilirubin ALT Alkaline Phosphatase CK-MB (CK-2) CK-MB (CK-2) Rel Index Troponin T C-Reactive Protein Total Protein Albumin Triglycerides LDL Cholesterol Direct HDL Cholesterol Lipase Crossmatch 08/21/19 08/21/19 08/21/19 08:04 12:04 16:30 WBC RBC Hgb Hct MCH RDW Lymph % (Auto) Gila % (Auto) Gila # Seg Neutrophils % Seg Neuts % (Manual) Lymphocytes % (Manual) Monocytes % (Manual) Nucleated RBC % Seg Neutrophils # Seg Neutrophils # Man Lymphocytes # (Manual) Monocytes # (Manual) Sodium Potassium Chloride Carbon Dioxide BUN Creatinine Glucose POC Glucose 157 H 188 H 255 H Calcium Phosphorus Magnesium Direct Bilirubin ALT Alkaline Phosphatase CK-MB (CK-2) CK-MB (CK-2) Rel Index Troponin T C-Reactive Protein Total Protein Albumin Triglycerides LDL Cholesterol Direct HDL Cholesterol Lipase Crossmatch 08/21/19 08/22/19 08/22/19 21:17 04:00 08:20 WBC RBC Hgb Hct MCH RDW Lymph % (Auto) Gila % (Auto) Gila # Seg Neutrophils % Seg Neuts % (Manual) Lymphocytes % (Manual) Monocytes % (Manual) Nucleated RBC % Seg Neutrophils # Seg Neutrophils # Man Lymphocytes # (Manual) Monocytes # (Manual) Sodium Potassium Chloride 96.4 L Carbon Dioxide BUN 65 H Creatinine 6.1 H Glucose 119 H POC Glucose 251 H 148 H Calcium 8.3 L Phosphorus Magnesium Direct Bilirubin ALT Alkaline Phosphatase CK-MB (CK-2) CK-MB (CK-2) Rel Index Troponin T C-Reactive Protein Total Protein Albumin Triglycerides LDL Cholesterol Direct HDL Cholesterol Lipase Crossmatch 08/22/19 08/22/19 08/22/19 14:45 16:29 21:04 WBC RBC Hgb 7.0 L Hct 22.3 L MCH RDW Lymph % (Auto) Gila % (Auto) Gila # Seg Neutrophils % Seg Neuts % (Manual) Lymphocytes % (Manual) Monocytes % (Manual) Nucleated RBC % Seg Neutrophils # Seg Neutrophils # Man Lymphocytes # (Manual) Monocytes # (Manual) Sodium Potassium Chloride Carbon Dioxide BUN Creatinine Glucose POC Glucose 115 H 162 H Calcium Phosphorus Magnesium Direct Bilirubin ALT Alkaline Phosphatase CK-MB (CK-2) CK-MB (CK-2) Rel Index Troponin T C-Reactive Protein Total Protein Albumin Triglycerides LDL Cholesterol Direct HDL Cholesterol Lipase Crossmatch 08/23/19 08/24/19 08/24/19 08:00 07:42 07:42 WBC 22.8 H RBC 2.47 L Hgb 6.7 L Hct 20.5 L MCH 27 L RDW 18.1 H Lymph % (Auto) Gila % (Auto) Gila # Seg Neutrophils % Seg Neuts % (Manual) 95.0 H Lymphocytes % (Manual) 3.0 L Monocytes % (Manual) Nucleated RBC % Seg Neutrophils # Seg Neutrophils # Man 21.7 H Lymphocytes # (Manual) 0.7 L Monocytes # (Manual) Sodium 136 L Potassium 5.7 H D Chloride 92.2 L Carbon Dioxide 19 L BUN 107 H Creatinine 9.1 H Glucose POC Glucose 141 H Calcium Phosphorus 7.40 H Magnesium Direct Bilirubin ALT Alkaline Phosphatase CK-MB (CK-2) CK-MB (CK-2) Rel Index Troponin T C-Reactive Protein Total Protein Albumin Triglycerides LDL Cholesterol Direct HDL Cholesterol Lipase Crossmatch 08/24/19 08/24/19 08/25/19 18:53 23:32 05:00 WBC RBC Hgb Hct MCH RDW Lymph % (Auto) Gila % (Auto) Gila # Seg Neutrophils % Seg Neuts % (Manual) Lymphocytes % (Manual) Monocytes % (Manual) Nucleated RBC % Seg Neutrophils # Seg Neutrophils # Man Lymphocytes # (Manual) Monocytes # (Manual) Sodium Potassium Chloride 93.9 L Carbon Dioxide BUN 61 H Creatinine 5.3 H Glucose 166 H POC Glucose 169 H 139 H Calcium Phosphorus Magnesium Direct Bilirubin ALT Alkaline Phosphatase CK-MB (CK-2) CK-MB (CK-2) Rel Index Troponin T C-Reactive Protein Total Protein Albumin Triglycerides LDL Cholesterol Direct HDL Cholesterol Lipase Crossmatch 08/25/19 08/25/19 08/25/19 05:00 05:14 22:02 WBC 19.7 H RBC 2.45 L Hgb 6.6 L Hct 20.4 L MCH 27 L RDW 18.6 H Lymph % (Auto) Gila % (Auto) Gila # Seg Neutrophils % Seg Neuts % (Manual) 75.0 H Lymphocytes % (Manual) Monocytes % (Manual) Nucleated RBC % Seg Neutrophils # Seg Neutrophils # Man 14.8 H Lymphocytes # (Manual) Monocytes # (Manual) Sodium Potassium Chloride Carbon Dioxide BUN Creatinine Glucose POC Glucose 225 H 106 H Calcium Phosphorus Magnesium Direct Bilirubin ALT Alkaline Phosphatase CK-MB (CK-2) CK-MB (CK-2) Rel Index Troponin T C-Reactive Protein Total Protein Albumin Triglycerides LDL Cholesterol Direct HDL Cholesterol Lipase Crossmatch 08/26/19 08/26/19 08/26/19 07:39 11:31 12:33 WBC RBC Hgb Hct MCH RDW Lymph % (Auto) Gila % (Auto) Gila # Seg Neutrophils % Seg Neuts % (Manual) Lymphocytes % (Manual) Monocytes % (Manual) Nucleated RBC % Seg Neutrophils # Seg Neutrophils # Man Lymphocytes # (Manual) Monocytes # (Manual) Sodium Potassium Chloride Carbon Dioxide BUN Creatinine Glucose POC Glucose 212 H 110 H Calcium Phosphorus Magnesium Direct Bilirubin ALT Alkaline Phosphatase CK-MB (CK-2) CK-MB (CK-2) Rel Index Troponin T C-Reactive Protein Total Protein Albumin Triglycerides LDL Cholesterol Direct HDL Cholesterol Lipase Crossmatch See Detail 08/26/19 08/26/19 08/26/19 12:33 12:33 17:38 WBC 18.4 H RBC 2.43 L Hgb 6.3 L Hct 20.1 L MCH 26 L RDW 18.5 H Lymph % (Auto) Gila % (Auto) Gila # Seg Neutrophils % Seg Neuts % (Manual) 80.0 H Lymphocytes % (Manual) 9.0 L Monocytes % (Manual) Nucleated RBC % Seg Neutrophils # Seg Neutrophils # Man 14.7 H Lymphocytes # (Manual) Monocytes # (Manual) Sodium Potassium Chloride 93.4 L Carbon Dioxide BUN 95 H Creatinine 8.1 H D Glucose 119 H POC Glucose 196 H Calcium Phosphorus 5.00 H D Magnesium Direct Bilirubin ALT Alkaline Phosphatase CK-MB (CK-2) CK-MB (CK-2) Rel Index Troponin T C-Reactive Protein Total Protein Albumin Triglycerides LDL Cholesterol Direct HDL Cholesterol Lipase Crossmatch 08/26/19 08/27/19 08/27/19 22:08 07:40 07:40 WBC 14.4 H RBC 2.17 L Hgb 5.7 L* Hct 18.1 L* MCH 26 L RDW 18.6 H Lymph % (Auto) Gila % (Auto) Gila # Seg Neutrophils % Seg Neuts % (Manual) Lymphocytes % (Manual) Monocytes % (Manual) 8.0 H Nucleated RBC % Seg Neutrophils # Seg Neutrophils # Man 9.6 H Lymphocytes # (Manual) Monocytes # (Manual) 1.2 H Sodium 136 L Potassium Chloride 87.5 L Carbon Dioxide 20 L BUN 117 H Creatinine 9.0 H Glucose 379 H POC Glucose 252 H Calcium Phosphorus 7.10 H D Magnesium Direct Bilirubin ALT Alkaline Phosphatase CK-MB (CK-2) CK-MB (CK-2) Rel Index Troponin T C-Reactive Protein Total Protein Albumin Triglycerides LDL Cholesterol Direct HDL Cholesterol Lipase Crossmatch 08/27/19 08/27/19 08/27/19 08:13 09:02 09:42 WBC RBC Hgb Hct MCH RDW Lymph % (Auto) Gila % (Auto) Gila # Seg Neutrophils % Seg Neuts % (Manual) Lymphocytes % (Manual) Monocytes % (Manual) Nucleated RBC % Seg Neutrophils # Seg Neutrophils # Man Lymphocytes # (Manual) Monocytes # (Manual) Sodium Potassium Chloride Carbon Dioxide BUN Creatinine Glucose 578 H* POC Glucose > 500 H > 500 H Calcium Phosphorus Magnesium Direct Bilirubin ALT Alkaline Phosphatase CK-MB (CK-2) CK-MB (CK-2) Rel Index Troponin T C-Reactive Protein Total Protein Albumin Triglycerides LDL Cholesterol Direct HDL Cholesterol Lipase Crossmatch 08/27/19 08/28/19 08/28/19 10:14 01:05 05:25 WBC RBC Hgb Hct MCH RDW Lymph % (Auto) Gila % (Auto) Gila # Seg Neutrophils % Seg Neuts % (Manual) Lymphocytes % (Manual) Monocytes % (Manual) Nucleated RBC % Seg Neutrophils # Seg Neutrophils # Man Lymphocytes # (Manual) Monocytes # (Manual) Sodium Potassium 3.5 L D Chloride 93.6 L Carbon Dioxide BUN 72 H Creatinine 5.5 H Glucose 361 H POC Glucose 485 H 161 H Calcium Phosphorus Magnesium Direct Bilirubin ALT Alkaline Phosphatase CK-MB (CK-2) CK-MB (CK-2) Rel Index Troponin T C-Reactive Protein Total Protein Albumin Triglycerides LDL Cholesterol Direct HDL Cholesterol Lipase Crossmatch 08/28/19 08/28/19 08/28/19 07:40 10:44 12:30 WBC RBC 3.43 L Hgb 9.4 L D Hct 29.1 L D MCH RDW 17.0 H Lymph % (Auto) Gila % (Auto) Gila # Seg Neutrophils % Seg Neuts % (Manual) 81.0 H Lymphocytes % (Manual) Monocytes % (Manual) Nucleated RBC % Seg Neutrophils # Seg Neutrophils # Man 8.6 H Lymphocytes # (Manual) Monocytes # (Manual) Sodium Potassium Chloride Carbon Dioxide BUN Creatinine Glucose POC Glucose 362 H 355 H Calcium Phosphorus Magnesium Direct Bilirubin ALT Alkaline Phosphatase CK-MB (CK-2) CK-MB (CK-2) Rel Index Troponin T C-Reactive Protein Total Protein Albumin Triglycerides LDL Cholesterol Direct HDL Cholesterol Lipase Crossmatch 08/28/19 08/28/19 08/29/19 18:01 21:38 05:00 WBC 12.3 H RBC 3.29 L Hgb 8.8 L Hct 27.8 L MCH 27 L RDW 17.1 H Lymph % (Auto) Gila % (Auto) Gila # Seg Neutrophils % Seg Neuts % (Manual) 80.0 H Lymphocytes % (Manual) Monocytes % (Manual) Nucleated RBC % Seg Neutrophils # Seg Neutrophils # Man 9.8 H Lymphocytes # (Manual) Monocytes # (Manual) Sodium Potassium Chloride Carbon Dioxide BUN Creatinine Glucose POC Glucose 150 H 240 H Calcium Phosphorus Magnesium Direct Bilirubin ALT Alkaline Phosphatase CK-MB (CK-2) CK-MB (CK-2) Rel Index Troponin T C-Reactive Protein Total Protein Albumin Triglycerides LDL Cholesterol Direct HDL Cholesterol Lipase Crossmatch 08/29/19 08/29/19 08/29/19 05:00 07:59 13:02 WBC RBC Hgb Hct MCH RDW Lymph % (Auto) Gila % (Auto) Gila # Seg Neutrophils % Seg Neuts % (Manual) Lymphocytes % (Manual) Monocytes % (Manual) Nucleated RBC % Seg Neutrophils # Seg Neutrophils # Man Lymphocytes # (Manual) Monocytes # (Manual) Sodium Potassium 3.3 L Chloride 89.7 L Carbon Dioxide BUN 111 H Creatinine 6.9 H Glucose 374 H POC Glucose 373 H 59 L Calcium Phosphorus 5.90 H Magnesium Direct Bilirubin ALT 5 L Alkaline Phosphatase 173 H CK-MB (CK-2) CK-MB (CK-2) Rel Index Troponin T C-Reactive Protein Total Protein 5.5 L Albumin 2.0 L Triglycerides LDL Cholesterol Direct HDL Cholesterol Lipase Crossmatch 08/29/19 08/29/19 08/30/19 18:38 22:36 06:29 WBC RBC Hgb Hct MCH RDW Lymph % (Auto) Gila % (Auto) Gila # Seg Neutrophils % Seg Neuts % (Manual) Lymphocytes % (Manual) Monocytes % (Manual) Nucleated RBC % Seg Neutrophils # Seg Neutrophils # Man Lymphocytes # (Manual) Monocytes # (Manual) Sodium Potassium Chloride Carbon Dioxide BUN Creatinine Glucose POC Glucose 111 H 157 H 427 H Calcium Phosphorus Magnesium Direct Bilirubin ALT Alkaline Phosphatase CK-MB (CK-2) CK-MB (CK-2) Rel Index Troponin T C-Reactive Protein Total Protein Albumin Triglycerides LDL Cholesterol Direct HDL Cholesterol Lipase Crossmatch 08/30/19 08/30/19 08/30/19 06:30 06:30 11:59 WBC 13.6 H RBC 3.22 L Hgb 8.9 L Hct 27.1 L MCH RDW 17.3 H Lymph % (Auto) Gila % (Auto) Gila # Seg Neutrophils % Seg Neuts % (Manual) 80.0 H Lymphocytes % (Manual) Monocytes % (Manual) Nucleated RBC % 2.0 H Seg Neutrophils # Seg Neutrophils # Man 10.9 H Lymphocytes # (Manual) Monocytes # (Manual) Sodium 136 L Potassium Chloride 86.8 L Carbon Dioxide 21 L BUN 141 H Creatinine 8.0 H Glucose 493 H POC Glucose 275 H Calcium Phosphorus 6.40 H Magnesium Direct Bilirubin ALT Alkaline Phosphatase CK-MB (CK-2) CK-MB (CK-2) Rel Index Troponin T C-Reactive Protein Total Protein Albumin Triglycerides LDL Cholesterol Direct HDL Cholesterol Lipase Crossmatch 08/30/19 08/31/19 08/31/19 21:28 05:45 05:45 WBC 11.8 H RBC 3.55 L Hgb 9.6 L Hct 30.1 L MCH 27 L RDW 17.3 H Lymph % (Auto) [place] % (Auto) 12.5 H [place] # 1.5 H Seg Neutrophils % 73.8 H Seg Neuts % (Manual) Lymphocytes % (Manual) Monocytes % (Manual) Nucleated RBC % Seg Neutrophils # 8.7 H Seg Neutrophils # Man Lymphocytes # (Manual) Monocytes # (Manual) Sodium 135 L Potassium Chloride 90.7 L Carbon Dioxide BUN 95 H Creatinine 5.9 H Glucose 406 H POC Glucose 183 H Calcium Phosphorus 4.90 H D Magnesium Direct Bilirubin ALT Alkaline Phosphatase CK-MB (CK-2) CK-MB (CK-2) Rel Index Troponin T C-Reactive Protein Total Protein Albumin Triglycerides LDL Cholesterol Direct HDL Cholesterol Lipase Crossmatch 08/31/19 08/31/19 08/31/19 06:16 12:18 17:03 WBC RBC Hgb Hct MCH RDW Lymph % (Auto) [place] % (Auto) [place] # Seg Neutrophils % Seg Neuts % (Manual) Lymphocytes % (Manual) Monocytes % (Manual) Nucleated RBC % Seg Neutrophils # Seg Neutrophils # Man Lymphocytes # (Manual) Monocytes # (Manual) Sodium Potassium Chloride Carbon Dioxide BUN Creatinine Glucose POC Glucose 407 H 199 H 118 H Calcium Phosphorus Magnesium Direct Bilirubin ALT Alkaline Phosphatase CK-MB (CK-2) CK-MB (CK-2) Rel Index Troponin T C-Reactive Protein Total Protein Albumin Triglycerides LDL Cholesterol Direct HDL Cholesterol Lipase Crossmatch 08/31/19 09/01/19 09/01/19 22:20 07:09 07:30 WBC RBC Hgb Hct MCH RDW Lymph % (Auto) [place] % (Auto) [place] # Seg Neutrophils % Seg Neuts % (Manual) Lymphocytes % (Manual) Monocytes % (Manual) Nucleated RBC % Seg Neutrophils # Seg Neutrophils # Man Lymphocytes # (Manual) Monocytes # (Manual) Sodium Potassium Chloride 89.2 L Carbon Dioxide BUN 125 H Creatinine 7.1 H Glucose 426 H POC Glucose 203 H 362 H Calcium Phosphorus 5.30 H Magnesium Direct Bilirubin ALT Alkaline Phosphatase CK-MB (CK-2) CK-MB (CK-2) Rel Index Troponin T C-Reactive Protein Total Protein Albumin Triglycerides LDL Cholesterol Direct HDL Cholesterol Lipase Crossmatch 09/01/19 09/01/19 09/01/19 08:35 11:27 18:42 WBC 22.8 H RBC 3.52 L Hgb 9.4 L Hct 29.5 L MCH 27 L RDW 18.3 H Lymph % (Auto) [place] % (Auto) [place] # Seg Neutrophils % Seg Neuts % (Manual) 98.0 H Lymphocytes % (Manual) 1.0 L Monocytes % (Manual) Nucleated RBC % Seg Neutrophils # Seg Neutrophils # Man 22.3 H Lymphocytes # (Manual) 0.2 L Monocytes # (Manual) Sodium Potassium Chloride Carbon Dioxide BUN Creatinine Glucose POC Glucose 325 H 162 H Calcium Phosphorus Magnesium Direct Bilirubin ALT Alkaline Phosphatase CK-MB (CK-2) CK-MB (CK-2) Rel Index Troponin T C-Reactive Protein Total Protein Albumin Triglycerides LDL Cholesterol Direct HDL Cholesterol Lipase Crossmatch 09/01/19 09/02/19 09/02/19 23:37 06:07 09:15 WBC 21.9 H RBC 2.60 L Hgb 7.0 L Hct 23.0 L D MCH 27 L RDW 19.1 H Lymph % (Auto) [place] % (Auto) [place] # Seg Neutrophils % Seg Neuts % (Manual) 98.0 H Lymphocytes % (Manual) 2.0 L Monocytes % (Manual) Nucleated RBC % Seg Neutrophils # Seg Neutrophils # Man 21.5 H Lymphocytes # (Manual) 0.4 L Monocytes # (Manual) Sodium Potassium Chloride Carbon Dioxide BUN Creatinine Glucose POC Glucose 276 H 438 H Calcium Phosphorus Magnesium Direct Bilirubin ALT Alkaline Phosphatase CK-MB (CK-2) CK-MB (CK-2) Rel Index Troponin T C-Reactive Protein Total Protein Albumin Triglycerides LDL Cholesterol Direct HDL Cholesterol Lipase Crossmatch 09/02/19 09/02/19 09/02/19 09:15 12:45 18:19 WBC RBC Hgb Hct MCH RDW Lymph % (Auto) [place] % (Auto) [place] # Seg Neutrophils % Seg Neuts % (Manual) Lymphocytes % (Manual) Monocytes % (Manual) Nucleated RBC % Seg Neutrophils # Seg Neutrophils # Man Lymphocytes # (Manual) Monocytes # (Manual) Sodium 131 L Potassium Chloride 84.4 L Carbon Dioxide 19 L BUN 156 H Creatinine 7.6 H Glucose 849 H* POC Glucose 362 H 148 H Calcium 8.2 L Phosphorus Magnesium 1.60 L Direct Bilirubin ALT 6 L Alkaline Phosphatase 139 H CK-MB (CK-2) CK-MB (CK-2) Rel Index Troponin T C-Reactive Protein 26.00 H Total Protein 4.9 L Albumin 1.6 L Triglycerides LDL Cholesterol Direct HDL Cholesterol Lipase 212 H Crossmatch 09/03/19 09/03/19 09/03/19 00:06 04:33 04:33 WBC 22.2 H RBC 2.71 L Hgb 7.5 L Hct 23.3 L MCH RDW 18.1 H Lymph % (Auto) [place] % (Auto) [place] # Seg Neutrophils % Seg Neuts % (Manual) 94.0 H Lymphocytes % (Manual) 4.0 L Monocytes % (Manual) Nucleated RBC % Seg Neutrophils # Seg Neutrophils # Man 20.9 H Lymphocytes # (Manual) 0.9 L Monocytes # (Manual) Sodium Potassium Chloride Carbon Dioxide BUN 88 H Creatinine 5.0 H Glucose 331 H POC Glucose 277 H Calcium Phosphorus Magnesium Direct Bilirubin ALT Alkaline Phosphatase CK-MB (CK-2) CK-MB (CK-2) Rel Index Troponin T C-Reactive Protein Total Protein Albumin Triglycerides LDL Cholesterol Direct HDL Cholesterol Lipase Crossmatch 09/03/19 09/03/19 09/04/19 06:12 21:26 01:09 EST WBC RBC Hgb Hct MCH RDW Lymph % (Auto) [place] % (Auto) [place] # Seg Neutrophils % Seg Neuts % (Manual) Lymphocytes % (Manual) Monocytes % (Manual) Nucleated RBC % Seg Neutrophils # Seg Neutrophils # Man Lymphocytes # (Manual) Monocytes # (Manual) Sodium Potassium Chloride Carbon Dioxide BUN Creatinine Glucose POC Glucose 288 H 67 L 166 H Calcium Phosphorus Magnesium Direct Bilirubin ALT Alkaline Phosphatase CK-MB (CK-2) CK-MB (CK-2) Rel Index Troponin T C-Reactive Protein Total Protein Albumin Triglycerides LDL Cholesterol Direct HDL Cholesterol Lipase Crossmatch 09/04/19 09/04/19 09/04/19 04:40 04:40 04:40 WBC 19.5 H RBC 2.49 L Hgb 6.7 L Hct 21.3 L MCH 27 L RDW 17.8 H Lymph % (Auto) 10.7 L [place] % (Auto) [place] # 1.3 H Seg Neutrophils % 82.2 H Seg Neuts % (Manual) Lymphocytes % (Manual) Monocytes % (Manual) Nucleated RBC % Seg Neutrophils # 16.0 H Seg Neutrophils # Man Lymphocytes # (Manual) Monocytes # (Manual) Sodium Potassium Chloride 94.4 L Carbon Dioxide BUN 112 H Creatinine 6.3 H Glucose 273 H POC Glucose Calcium Phosphorus 5.30 H Magnesium Direct Bilirubin 0.3 H ALT Alkaline Phosphatase CK-MB (CK-2) CK-MB (CK-2) Rel Index Troponin T C-Reactive Protein Total Protein 5.0 L Albumin 1.5 L Triglycerides LDL Cholesterol Direct HDL Cholesterol Lipase Crossmatch 09/04/19 09/04/19 06:03 07:55 WBC RBC Hgb Hct MCH RDW Lymph % (Auto) [place] % (Auto) [place] # Seg Neutrophils % Seg Neuts % (Manual) Lymphocytes % (Manual) Monocytes % (Manual) Nucleated RBC % Seg Neutrophils # Seg Neutrophils # Man Lymphocytes # (Manual) Monocytes # (Manual) Sodium Potassium Chloride Carbon Dioxide BUN Creatinine Glucose POC Glucose 309 H 287 H Calcium Phosphorus Magnesium Direct Bilirubin ALT Alkaline Phosphatase CK-MB (CK-2) CK-MB (CK-2) Rel Index Troponin T C-Reactive Protein Total Protein Albumin Triglycerides LDL Cholesterol Direct HDL Cholesterol Lipase Crossmatch Assessment and Plan Acute hypoxic respiratory failure -Get ABG and CXR stat -Supplemental oxygen to keep O2 sats>90% - Likely from volume overload versus worsening necrotizing pancreatitis compressing surrounding structure versus severe sepsis - Bronchodilators per protocol - Stop mycophenolate while acutely ill -Continue Plaquenil, steroid IV -VTE prophylaxis- SCDs/heparin -Further management decisions based on review of ABG and CXR All other care as per primary Sirs vs sepsis with tachycardia, elevated white count Accerelated HTN with tachycardia Acute on Chronic pancreatitis, history of necrotizing pancreatitis Severe Anemia of chronic disease;Hb 5.7 - 9.4 Delusions Acute metabolic-toxic encephalopathy MRI, MRA brain negative, lupus encephalopathy ruled out Severe malnutrition,on TPN End-stage renal disease, on dialysis Hyperkalemia SLE Non-ST elevation [place] Type 2. Diabetes type 2
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
[2019-09-04] MEDS: MEROPENEM/NS 500 MG/50 ML 500 MG/50 ML BAG IV SCH (14:44)
[2019-09-04 14:46] LABS: Hematocrit 20.6 % (30.3-42.9); Hemoglobin 6.5 gm/dl (10.1-14.3); Mean Corpuscular HGB Conc 32 % (30-34); Mean Corpuscular Volume 84 fl (79-97); Platelet Count 219 K/mm3 (140-440); Red Blood Count 2.45 M/mm3 (3.65-5.03); Red Cell Distribution Width 17.3 % (13.2-15.2)
--- NOTE | 2019-09-04 15:55 | XRay Report ---
CHEST 1 VIEW, 09/04/2019 1:22 PM CLINICAL INFORMATION/INDICATION: Chest pain. Shortness of breath. COMPARISON: Chest radiograph, 08/19/2019 FINDINGS: SUPPORT DEVICES: Right-sided PICC line is present with distal tip projecting over the expected positi on of the distal SVC. HEART: The cardiac silhouette is moderately enlarged. LUNGS/PLEURA: Faint bilateral pulmonary opacities have developed since the previous study. ADDITIONAL FINDINGS: No additional acute findings. IMPRESSION: 1. Moderate enlargement of the cardiac silhouette. 2. Bilateral pulmonary opacities favored to be related to pulmonary edema. Signer Name: Xin Hollingsworth MD Signed: 09/04/2019 3:51 PM Workstation Name: [id number]
[2019-09-04] MEDS: DEXTROSE 50% IN WATER (25GM) 50 ML SYRINGE IV PRN (17:00)
--- NOTE | 2019-09-04 17:59 | Progress Note ---
Subjective - Reason for Consult Consult date: 09/04/19 Reason for consult: Psychiatry Follow-up Requesting physician: NOHEMY AVILA - Chief Complaint Chief complaint: "i will take my meds" Mental Status Exam - Vital signs Last Vital Signs Temp 98.5 F 09/04/19 16:00 Pulse 119 H 09/04/19 15:21 Resp 20 09/04/19 15:21 BP 120/67 09/04/19 15:21 Pulse Ox 94 09/04/19 15:21 - Exam Orientation: place, person Affect: flat, depressed, anxious Mood: congruent with affect Thought Process: Circumstantial Speech: slow Concentration: distractible Motor activity: lethargic Memory: Remote Impaired Interaction: cooperative Assessment and Plan Impression. Delirium. Patient is cooperative not as paranoid during the assessment. DDx: Unspecified Personality DO Recommendation/Plan: Continue 1013 and will continue Zydis ODT 5 mg BID for psychosis with encouragement. Place tablet on the patients's tongue for administration. Patient has pending status transfer to [place].. Recommend no narcotics at this time. Recommend Delirium precautions below: 1. Frequently reorient patient and involve him/her in their care (simple explanations of procedures, tests, medications). 2. Lights on and shades open during daytime hours. 3. Write date and goals of care in a visible place. 4. Try to avoid unnecessary interruptions to sleep during nighttime hours. 5. Obtain glasses, hearing aids from home if patient uses these at baseline. 6. Avoid medications that may exacerbate delirium (especially narcotics, benzodiazepines, barbiturates, ambien, lunesta, and medications with excessive anticholinergic properties). The patient has Percocet (PRN) and Atarax (scheduled) in her MAR? Recommend Atarax PRN and a NSAID for pain. Staffed with Dr Luis Rivera.
[2019-09-04] MEDS ORDERED: TOTAL PARENTERAL NUTRITION 1,560 ML IV SCH ×2 (20:00)
[2019-09-04] MEDS: MELATONIN 5 MG TAB PO SCH (21:36)
[2019-09-05] MEDS: ONDANSETRON 4 MG/2 ML INJ IV PRN ×2 (02:15→08:04)
[2019-09-05 04:24] LABS: Calcium 8.6 mg/dL (8.4-10.2)
[2019-09-05] MEDS: MORPHINE 2 MG/1 ML INJ IV PRN ×3 (05:28→21:56)
[2019-09-05 05:44] LABS: Eosinophils % (Auto) 0.3 % (0.0-4.3); Hematocrit 20.5 % (30.3-42.9); Hemoglobin 6.5 gm/dl (10.1-14.3); Lymphocytes # (Auto) 1.8 K/mm3 (1.2-5.4); Mean Corpuscular HGB Conc 32 % (30-34); Mean Corpuscular Volume 84 fl (79-97); Monocytes # (Auto) 1.2 K/mm3 (0.0-0.8); Monocytes % (Auto) 6.7 % (0.0-7.3); Platelet Count 255 K/mm3 (140-440); Red Blood Count 2.44 M/mm3 (3.65-5.03); Red Cell Distribution Width 18.1 % (13.2-15.2)
[2019-09-05] MEDS: METOPROLOL TARTRATE 5 MG/5 ML INJ IV PRN (05:51)
[2019-09-05] MEDS: SEVELAMER CARBONATE 800 MG TAB PO SCH ×2 (07:30→16:30)
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
[2019-09-05] MEDS ORDERED: SODIUM CHLORIDE 0.9% 100 ML IV PRN (08:33)
[2019-09-05] MEDS ORDERED: SODIUM CHLORIDE 0.9% 500 ML 500 ML IV ONE (09:00)
[2019-09-05] MEDS: INSULIN LISPRO 100 UNIT/ML SUB-Q SCH ×3 (09:00→21:55)
--- NOTE | 2019-09-05 09:26 | Progress Note ---
Assessment and Plan 1. ESRD: On maintenance hemodialysis three times a week, TTS schedule. Patient has been refusing dialysis. Last dialyzed 09/02. HD today. 2. FEN: Hyperkalemia, improved. Metabolic acidosis, improved. Monitor lytes. 3. Anemia: Epogen with HD. S/p PRBC. 4. Seizures: On Keppra. 5. Metabolic encephalopathy. 6. Acute pancreatitis: CT abdomen showed worsening pancreatitis. Gen. Surgery recommended pancreatic drain, but pt refused. On PPN / TPN. 7. Tachycardia: Followed by Cards. 8. History of lupus: On Cellcept and Plaquenil. 9. Hyperglycemia. 10. Psychosis. 11. Deconditioning. Examination: General appearance: well-developed, appears stated age, not in distress HEENT: ATNC, BORA Neck: trachea midline Respiratory: Clear to Ascultation Heart: regular, S1S2, no murmur Gastrointestinal: soft, distended, mild tenderness over the L side, normoactive bowel sound Integumentary: no rash, warm and dry Neurologic: alert, follows some command, answers questions, confusion noted Musculoskeletal: trace LE edema Hemodialysis access: L arm AVG Subjective Date of service: 09/05/19 Principal diagnosis: pancreatitis Interval history: Patient was seen and examined at the bedside. Denies any pain. Sitter at the bedside. Objective - Vital Signs Vital signs: Vital Signs - 12hr 09/04/19 09/04/19 09/04/19 21:30 21:40 21:50 Temperature Pulse Rate 118 H 122 H 126 H Pulse Rate [ From Monitor] Respiratory 27 H 43 H 28 H Rate Blood Pressure 127/73 127/73 127/73 O2 Sat by Pulse 98 88 83 L Oximetry 09/04/19 09/04/19 09/04/19 22:00 22:10 22:20 Temperature Pulse Rate 118 H 120 H 120 H Pulse Rate [ From Monitor] Respiratory 28 H 26 H 29 H Rate Blood Pressure 127/73 127/73 127/73 O2 Sat by Pulse 98 99 100 Oximetry 09/04/19 09/04/19 09/04/19 22:30 22:40 22:50 Temperature Pulse Rate 118 H 118 H 118 H Pulse Rate [ From Monitor] Respiratory 26 H 29 H 30 H Rate Blood Pressure 127/73 127/73 127/73 O2 Sat by Pulse 100 99 100 Oximetry 09/04/19 09/04/19 09/04/19 23:00 23:10 23:20 Temperature Pulse Rate 120 H 121 H 119 H Pulse Rate [ From Monitor] Respiratory 27 H 27 H 22 Rate Blood Pressure 127/73 127/73 127/73 O2 Sat by Pulse 99 99 68 L Oximetry 09/04/19 09/04/19 09/04/19 23:30 23:40 23:50 Temperature Pulse Rate 122 H 122 H 122 H Pulse Rate [ From Monitor] Respiratory 26 H 22 27 H Rate Blood Pressure 174/102 166/103 164/102 O2 Sat by Pulse 100 99 100 Oximetry 09/05/19 09/05/19 09/05/19 00:00 00:10 00:20 Temperature 98.0 F Pulse Rate 110 H 112 H 112 H Pulse Rate [ 115 H From Monitor] Respiratory 26 H 23 23 Rate Blood Pressure 141/99 141/99 141/99 O2 Sat by Pulse 99 89 100 Oximetry 09/05/19 09/05/19 09/05/19 00:30 00:40 00:50 Temperature Pulse Rate 113 H 116 H 117 H Pulse Rate [ From Monitor] Respiratory 24 21 31 H Rate Blood Pressure 141/99 141/99 141/99 O2 Sat by Pulse 100 100 100 Oximetry 09/05/19 09/05/19 09/05/19 01:00 01:10 01:20 Temperature Pulse Rate 116 H 117 H 119 H Pulse Rate [ From Monitor] Respiratory 24 20 34 H Rate Blood Pressure 141/99 141/99 141/99 O2 Sat by Pulse 100 100 95 Oximetry 09/05/19 09/05/19 09/05/19 01:30 01:40 01:50 Temperature Pulse Rate 119 H 118 H 120 H Pulse Rate [ From Monitor] Respiratory 30 H 31 H 23 Rate Blood Pressure 141/99 141/99 141/99 O2 Sat by Pulse 100 100 96 Oximetry 09/05/19 09/05/19 09/05/19 02:00 02:10 02:20 Temperature Pulse Rate 120 H 130 H 124 H Pulse Rate [ From Monitor] Respiratory 11 L 18 23 Rate Blood Pressure 141/99 141/99 141/99 O2 Sat by Pulse 100 100 100 Oximetry 09/05/19 09/05/19 09/05/19 02:30 02:40 02:50 Temperature Pulse Rate 121 H 121 H 122 H Pulse Rate [ From Monitor] Respiratory 28 H 30 H 30 H Rate Blood Pressure 141/99 141/99 141/99 O2 Sat by Pulse 100 100 Oximetry 09/05/19 09/05/19 09/05/19 03:00 03:10 03:20 Temperature Pulse Rate 130 H 120 H 121 H Pulse Rate [ From Monitor] Respiratory 33 H 16 29 H Rate Blood Pressure 141/99 141/99 141/99 O2 Sat by Pulse 98 99 98 Oximetry 09/05/19 09/05/19 09/05/19 03:30 03:40 03:50 Temperature Pulse Rate 123 H 121 H 121 H Pulse Rate [ From Monitor] Respiratory 32 H 26 H 30 H Rate Blood Pressure 141/99 141/99 141/99 O2 Sat by Pulse 97 100 98 Oximetry 09/05/19 09/05/19 09/05/19 04:00 04:10 04:20 Temperature 98.8 F Pulse Rate 123 H 132 H 125 H Pulse Rate [ 126 H From Monitor] Respiratory 36 H 38 H 36 H Rate Blood Pressure 141/99 141/99 141/99 O2 Sat by Pulse 98 98 99 Oximetry 09/05/19 09/05/19 09/05/19 04:30 04:40 04:50 Temperature Pulse Rate 127 H 127 H 128 H Pulse Rate [ From Monitor] Respiratory 30 H 21 26 H Rate Blood Pressure 155/92 155/92 155/92 O2 Sat by Pulse 100 97 100 Oximetry 09/05/19 09/05/19 09/05/19 05:00 05:10 05:20 Temperature Pulse Rate 128 H 131 H 126 H Pulse Rate [ From Monitor] Respiratory 24 15 20 Rate Blood Pressure 155/92 155/92 155/92 O2 Sat by Pulse 61 L 100 Oximetry 09/05/19 09/05/19 09/05/19 05:30 05:51 06:00 Temperature Pulse Rate 127 H 126 H 126 H Pulse Rate [ From Monitor] Respiratory 15 Rate Blood Pressure 155/92 155/92 O2 Sat by Pulse 100 Oximetry 09/05/19 07:35 Temperature 97.9 F Pulse Rate Pulse Rate [ From Monitor] Respiratory Rate Blood Pressure O2 Sat by Pulse Oximetry - Lab 09/05/19 05:20 09/05/19 03:40 Most recent lab results Calcium 8.6 mg/dL (8.4-10.2) 09/05/19 03:40 Phosphorus 5.30 mg/dL (2.5-4.5) H 09/04/19 04:40 Magnesium 2.00 mg/dL (1.7-2.3) 09/05/19 03:40 Medications & Allergies - Medications Allergies/Adverse Reactions: Allergies lactose Adverse Reaction (Verified 07/29/19 08:16) Unknown Home Medications: Home Medications Medication Instructions Recorded Confirmed Last Taken Type ALBUTEROL NEB's [Proventil 0.083% 2.5 mg IH QID PRN 07/26/19 08/21/19 07/25/19 H istory NEBS] Labetalol HCl [Labetalol 300mg TAB] 300 mg PO Q12H 07/26/19 08/21/19 07/25/19 H istory Mirtazapine 7.5 mg PO QDAY 07/26/19 08/21/19 07/25/19 History Pantoprazole [Protonix TAB] 40 mg PO BID 07/26/19 08/21/19 08/21/19 15:56 History Sevelamer HCl [Renagel] 800 mg PO BIDWM 07/26/19 08/21/19 07/25/19 History Acetaminophen [Acetaminophen TAB] 650 mg PO Q6H PRN tablet 08/18/19 08/21/19 Unknown Rx Cyanocobalamin (Vitamin B-12) 1,000 mcg PO QDAY #20 08/18/19 08/21/19 Unknown Rx [Vitamin B-12] Epoetin Mitch 20,000 Unit [Procrit] 20,000 unit SUB-Q FAN PRN vial 08/18/19 08/21/19 Unknown Rx Folic Acid [Folvite] 1 mg PO QDAY #30 08/18/19 08/21/19 Unknown Rx Gabapentin 300 mg PO 3XW #60 08/18/19 08/21/19 08/21/19 15:58 Rx Hydroxychloroquine [Plaquenil] 200 mg PO QDAY #30 08/18/19 08/21/19 Unknown Rx Insulin Glargine [Lantus VIAL] 20 units SUB-Q QHS #1 units 08/18/19 08/21/19 08/21/19 15:57 Rx Labetalol [Labetalol 200mg TAB] 300 mg PO BID #60 tablet 08/18/19 08/21/19 Unknown Rx Losartan [Cozaar] 50 mg PO QDAY #30 08/18/19 08/21/19 Unknown Rx Mycophenolate [Cellcept] 500 mg PO QDAY #30 08/18/19 08/21/19 08/21/19 15:56 Rx Pantoprazole [Protonix TAB] 40 mg PO BID #60 tablet 08/18/19 08/21/19 08/21/19 15:55 Rx Sevelamer Carbonate [Renvela] 800 mg PO 0730,1630 #30 tablet 08/18/19 08/21/19 08/21/19 15:56 Rx Total Parenteral Nutrition [TPN 12 ml IV DAILY@2000 ml 08/18/19 08/21/19 08/21/19 15:55 Rx Adult] hydrOXYzine HCL [Atarax] 50 mg PO QDAY #30 08/18/19 08/21/19 Unknown Rx levETIRAcetam [Keppra TAB] 500 mg PO BID #60 tablet 08/18/19 08/21/19 08/21/19 15:54 Rx oxyCODONE /ACETAMINOPHEN [Percocet 1 tab PO Q8H PRN #30 tablet 08/18/19 08/21/19 Unknown Rx 5/325 mg] predniSONE [Deltasone] 20 mg PO QDAY #30 08/18/19 08/21/19 Unknown Rx Active Medications: Generic Name Dose Route Start Last Admin Trade Name Freq PRN Reason Stop Dose Admin Acetaminophen 650 mg 08/19/19 22:44 09/03/19 20:59 Tylenol PO 650 mg Q4H PRN Administration Pain MILD(1-3)/Fever >100.5/PORTER Acetaminophen 650 mg 08/26/19 13:00 09/03/19 04:11 Tylenol NM 650 mg Q6H PRN Administration Pain, Mild (1-3) Albuterol 2.5 mg 08/20/19 09:00 Proventil IH QID PRN Wheezing Clonidine HCl 0.3 mg 09/03/19 14:00 09/03/19 19:49 Catapres-Tts Patch TD Not Given Sa JOEL Cyanocobalamin 1,000 mcg 08/20/19 10:00 09/04/19 09:19 Vitamin B-12 PO 1,000 mcg QDAY JOEL Administration Dextrose 0 ml 08/19/19 22:43 09/04/19 17:00 D50w (25gm) Syringe IV 15 ml Q30MIN PRN Administration Hypoglycemia Diphenhydramine HCl 25 mg 08/22/19 22:22 09/04/19 04:50 Benadryl IV 25 mg Q6H PRN Administration Itching Epoetin Mitch 20,000 unit 08/20/19 09:17 09/02/19 17:30 Procrit SUB-Q 20,000 unit FAN PRN Administration hemodialysis Folic Acid 1 mg 08/20/19 10:00 09/04/19 09:17 Folvite PO 1 mg QDAY JOEL Administration Haloperidol Lactate 5 mg 09/02/19 11:00 09/03/19 20:58 Haldol IM 5 mg Q6H PRN Administration Agitation Hydralazine HCl 10 mg 08/21/19 13:00 09/04/19 07:57 Apresoline IV 10 mg Q4H PRN Administration BP >160/100 Hydroxychloroquine Sulfate 200 mg 08/20/19 10:00 09/04/19 09:16 Plaquenil PO 200 mg QDAY JOEL Administration Hydroxyzine HCl 50 mg 08/20/19 10:00 09/04/19 21:38 Atarax PO Not Given QDAY JOEL Levetiracetam 750 mg/ Dextrose 107.5 mls @ 107.5 mls/hr 08/26/19 12:30 09/04/19 21:35 IV 400 mls/hr Q12HR JOEL Administration Meropenem 500 mg in 50 mls @ 50 mls/hr 09/04/19 14:00 09/04/19 14:44 Merrem/Ns 500 Mg/50 Ml IV 50 mls/hr Q24H JOEL Administration Amino Acids/Electrolytes/Dextrose 1,560 mls @ 0 mls/hr 09/04/19 20:00 09/05/19 07:00 Tpn Adult IV 09/05/19 19:59 80 mls/hr DAILY@2000 JOEL Infusion Protocol As Directed Sodium Chloride 100 mls @ 999 mls/hr 09/05/19 08:33 Nacl 0.9% IV FAN PRN Hypotension Insulin Glargine 20 units 08/20/19 22:00 09/04/19 21:35 Lantus SUB-Q Not Given QHS JOEL Insulin Glargine 10 units 09/02/19 11:30 09/04/19 21:39 Lantus SUB-Q Not Given QAMDIAB [facility] Insulin Human Lispro 0 unit 08/20/19 11:30 09/04/19 21:38 Humalog SUB-Q Not Given ACHS [facility] Protocol Losartan Potassium 50 mg 08/20/19 10:00 09/04/19 21:38 Cozaar PO Not Given QDAY [facility] Melatonin 5 mg 08/25/19 22:00 09/04/19 21:36 Melatonin PO Not Given QHS [facility] Metoclopramide HCl 5 mg 09/01/19 13:00 09/03/19 20:58 Reglan IV 5 mg Q6H PRN Administration Nausea And Vomiting Metoprolol Tartrate 5 mg 09/01/19 18:48 09/05/19 05:51 Metoprolol IV 5 mg Q6HR PRN Administration Hypertension Morphine Sulfate 1 mg 09/02/19 11:30 09/05/19 08:04 Morphine IV 1 mg Q4H PRN Administration Pain , Severe (7-10) Mycophenolate Mofetil 500 mg 08/20/19 10:00 09/04/19 09:17 Cellcept PO 500 mg QDAY [facility] Administration Olanzapine 5 mg 09/02/19 13:00 09/04/19 21:36 Zyprexa Zydis PO Not Given BID [facility] Ondansetron HCl 4 mg 08/21/19 13:00 09/05/19 08:04 Zofran IV 4 mg Q4H PRN Administration Nausea And Vomiting Pantoprazole Sodium 40 mg 09/04/19 22:00 09/04/19 21:20 Protonix IV 40 mg BID [facility] Administration Promethazine HCl 25 mg 08/21/19 12:46 Phenergan NM Q6H PRN Nausea And Vomiting Sevelamer Carbonate 800 mg 08/20/19 16:30 09/04/19 21:37 Renvela PO Not Given 0730,1630 [facility] Sodium Chloride 10 ml 08/20/19 10:00 09/04/19 21:36 Sodium Chloride Flush Syringe 10 Ml IV 10 ml BID JOEL Administration Sodium Chloride 10 ml 08/19/19 22:44 08/22/19 22:32 Sodium Chloride Flush Syringe 10 Ml IV 10 ml PRN PRN Administration LINE FLUSH
[2019-09-05] MEDS: INSULIN GLARGINE 100 UNITS/ML SUB-Q SCH ×2 (10:14→21:53)
[2019-09-05] MEDS: hydrOXYzine HCL 25 MG TAB PO SCH (10:15)
[2019-09-05] MEDS: MYCOPHENOLATE 500 MG TAB PO SCH (10:16)
[2019-09-05] MEDS: FOLIC ACID 1 MG TAB PO SCH (10:16)
[2019-09-05] MEDS: levETIRAcetam 750 MG in DEXTROSE 5% IN WATER 100 ML IV SCH ×2 (10:16→21:54)
[2019-09-05] MEDS: LOSARTAN 50 MG TAB PO SCH (10:16)
[2019-09-05] MEDS: HYDROXYCHLOROQUINE 200 MG TAB PO SCH (10:17)
[2019-09-05] MEDS: PANTOPRAZOLE 40 MG INJ IV SCH ×2 (10:17→21:53)
[2019-09-05] MEDS: CYANOCOBALAMIN (VIT B-12) 1000 MCG TAB PO SCH (10:18)
[2019-09-05] MEDS: OLANzapine ZYDIS 5 MG TAB PO SCH ×2 (10:18→21:55)
[2019-09-05] MEDS ORDERED: SODIUM CHLORIDE*PRIMING MACHINE ONLY FOR DIALYSIS MC ONE (10:40)
[2019-09-05] MEDS ORDERED: EPOETIN ALFA 20,000 UNIT/1 ML INJ ONE (10:40)
--- NOTE | 2019-09-05 10:49 | Gastroenterology Progress Note ---
<YELITZA ESTRADA - Last Filed: 09/05/19 11:06> Assessment and Plan 1.abdominal pain 2.N/V 3.necrotizing pancreatitis 4.pancreatic pseudocyst -WBC 17.9-trending down -CRP 26 -Lipase 212 -LFTs-WNL -triglyceride and hepatitis panel negative -repeat abd CT shows worsening pancreatitis with multiple developing pseudocysts (large LUQ peudocyst compressing on stomach) -etiology of pancreatitis unclear- possible autoimmune vs drug induced vs sepsis; given elevted WBC and clinical condition concerned for possibility of infected necrosis -surgery and IR following -Keep NPO and continue TPN -continue empiric abx therapy (Meropenem) -continue to trend labs and supportive care (IFV, pain control, antiemetics, etc.) -Given her extremely complicated medical condition, recommend continuing with efforts for transfer to a tertiary care center in case she requires debridement 5.anemia/hematemesis -likely multifactorial -H/H 6.5/20.5-stable; continue to monitor and transfuse as needed -no active signs of bleeding overnight or this am -continue PPI and supportive care -Regarding consideration of EGD, if she had active significant GI bleeding (multiple episodes hematemesis or melena and continued drop in Hgb) will pursue emergent EGD with 2 physician consent; otherwise given patient cannot provide consent will not pursue EGD unless she is in a life-threatening situation Subjective Date of service: 09/05/19 Principal diagnosis: pancreatitis Interval history: No acute distress. Remains confused with continued abd pain. No active signs of bleeding overnight or this am per nursing. Objective - Constitutional Vitals: Temp Pulse Resp BP Pulse Ox 97.9 F 122 H 15 113/60 100 09/05/19 07:35 09/05/19 10:16 09/05/19 05:30 09/05/19 10:16 09/05/19 05:30 General appearance: mild distress - Respiratory Respiratory: bilateral: diminished - Cardiovascular Rhythm: other (tachycardia) - Gastrointestinal General gastrointestinal: Present: tender, distended - Neurologic Neurological: oriented to person - Labs CBC & Chem 7: 09/05/19 05:20 09/05/19 03:40 Labs: Laboratory Results - last 24 hr 09/04/19 09/04/19 09/04/19 07:55 11:22 14:25 WBC 20.7 H RBC 2.45 L Hgb 6.5 L Hct 20.6 L MCV 84 MCH 26 L MCHC 32 RDW 17.3 H Plt Count 219 Lymph % (Auto) [place] % (Auto) Eos % (Auto) Baso % (Auto) Lymph # [place] # Eos # Baso # Seg Neutrophils % Seg Neutrophils # POC ABG pH POC ABG pCO2 POC ABG pO2 POC ABG HCO3 POC ABG Total CO2 POC ABG O2 Sat POC ABG Base Excess FiO2 Sodium Potassium Chloride Carbon Dioxide Anion Gap BUN Creatinine Estimated GFR BUN/Creatinine Ratio Glucose POC Glucose 287 H 96 Calcium Magnesium 09/04/19 09/04/19 09/04/19 16:40 17:35 18:49 WBC RBC Hgb Hct MCV MCH MCHC RDW Plt Count Lymph % (Auto) [place] % (Auto) Eos % (Auto) Baso % (Auto) Lymph # [place] # Eos # Baso # Seg Neutrophils % Seg Neutrophils # POC ABG pH 7.487 H POC ABG pCO2 33.3 L POC ABG pO2 120 H POC ABG HCO3 25.2 POC ABG Total CO2 26 POC ABG O2 Sat 99 POC ABG Base Excess 2 FiO2 24 Sodium Potassium Chloride Carbon Dioxide Anion Gap BUN Creatinine Estimated GFR BUN/Creatinine Ratio Glucose POC Glucose 66 L 92 Calcium Magnesium 09/04/19 09/05/19 09/05/19 21:31 03:40 05:20 WBC 17.9 H RBC 2.44 L Hgb 6.5 L Hct 20.5 L MCV 84 MCH 27 L MCHC 32 RDW 18.1 H Plt Count 255 Lymph % (Auto) 10.0 L [place] % (Auto) 6.7 Eos % (Auto) 0.3 Baso % (Auto) 0.0 Lymph # 1.8 [place] # 1.2 H Eos # 0.0 Baso # 0.0 Seg Neutrophils % 83.0 H Seg Neutrophils # 14.8 H POC ABG pH POC ABG pCO2 POC ABG pO2 POC ABG HCO3 POC ABG Total CO2 POC ABG O2 Sat POC ABG Base Excess FiO2 Sodium 138 Potassium 3.6 Chloride 92.4 L Carbon Dioxide 21 L Anion Gap 28 BUN 138 H Creatinine 7.2 H Estimated GFR 8 BUN/Creatinine Ratio 19 Glucose 214 H POC Glucose 82 Calcium 8.6 Magnesium 2.00 09/05/19 09/05/19 06:10 08:18 WBC RBC Hgb Hct MCV MCH MCHC RDW Plt Count Lymph % (Auto) [place] % (Auto) Eos % (Auto) Baso % (Auto) Lymph # [place] # Eos # Baso # Seg Neutrophils % Seg Neutrophils # POC ABG pH POC ABG pCO2 POC ABG pO2 POC ABG HCO3 POC ABG Total CO2 POC ABG O2 Sat POC ABG Base Excess FiO2 Sodium Potassium Chloride Carbon Dioxide Anion Gap BUN Creatinine Estimated GFR BUN/Creatinine Ratio Glucose POC Glucose 252 H 291 H Calcium Magnesium <STEPHANIE CARTER - Last Filed: 09/05/19 23:58> Assessment and Plan Patient seen and examined. I have reviewed the advanced practitioner's evaluation, assessment, and plan, and agree with them. I note the following additions: patient without overt bleeding since yesterday; continue abx and transfer to tertiary care center given complexity of patient. Please let us know if there is anything we can do to assist in the process. - Patient Problems (1) Altered mental status Current Visit: Yes Status: Acute Qualifiers: Altered mental status type: unspecified Qualified Code(s): R41.82 - Altered mental status, unspecified (2) Pancreatic pseudocyst Current Visit: Yes Status: Acute (3) Anemia of chronic disease Current Visit: Yes Status: Chronic (4) Anemia Current Visit: No Status: Acute (5) Pancreatitis Current Visit: No Status: Acute Qualifiers: Chronicity: acute Acute pancreatitis complication: unspecified Objective - Constitutional Vitals: Temp Pulse Resp BP Pulse Ox 98.5 F 122 H 22 112/59 98 09/05/19 23:44 09/05/19 19:00 09/05/19 21:56 09/05/19 19:00 09/05/19 19:00 - Labs CBC & Chem 7: 09/05/19 05:20 09/05/19 03:40 Labs: Laboratory Results - last 24 hr 08/26/19 09/05/19 09/05/19 12:33 03:40 05:20 WBC 17.9 H RBC 2.44 L Hgb 6.5 L Hct 20.5 L MCV 84 MCH 27 L MCHC 32 RDW 18.1 H Plt Count 255 Lymph % (Auto) 10.0 L [place] % (Auto) 6.7 Eos % (Auto) 0.3 Baso % (Auto) 0.0 Lymph # 1.8 [place] # 1.2 H Eos # 0.0 Baso # 0.0 Seg Neutrophils % 83.0 H Seg Neutrophils # 14.8 H Sodium 138 Potassium 3.6 Chloride 92.4 L Carbon Dioxide 21 L Anion Gap 28 BUN 138 H Creatinine 7.2 H Estimated GFR 8 BUN/Creatinine Ratio 19 Glucose 214 H POC Glucose Calcium 8.6 Magnesium 2.00 Blood Type Antibody Screen Crossmatch See Detail 09/05/19 09/05/19 09/05/19 06:10 08:18 09:21 WBC RBC Hgb Hct MCV MCH MCHC RDW Plt Count Lymph % (Auto) [place] % (Auto) Eos % (Auto) Baso % (Auto) Lymph # [place] # Eos # Baso # Seg Neutrophils % Seg Neutrophils # Sodium Potassium Chloride Carbon Dioxide Anion Gap BUN Creatinine Estimated GFR BUN/Creatinine Ratio Glucose POC Glucose 252 H 291 H Calcium Magnesium Blood Type A POSITIVE Antibody Screen Negative Crossmatch See Detail 09/05/19 09/05/19 09/05/19 11:35 17:11 21:50 WBC RBC Hgb Hct MCV MCH MCHC RDW Plt Count Lymph % (Auto) [place] % (Auto) Eos % (Auto) Baso % (Auto) Lymph # [place] # Eos # Baso # Seg Neutrophils % Seg Neutrophils # Sodium Potassium Chloride Carbon Dioxide Anion Gap BUN Creatinine Estimated GFR BUN/Creatinine Ratio Glucose POC Glucose 201 H 70 84 Calcium Magnesium Blood Type Antibody Screen Crossmatch
[2019-09-05] MEDS ORDERED: LORazepam 2 MG/ML VIAL IV ONE (11:41)
[2019-09-05] MEDS: EPOETIN ALFA 20,000 UNIT/1 ML INJ SUB-Q PRN (12:00)
--- NOTE | 2019-09-05 13:53 | Progress Note ---
Assessment and Plan Patient awake. Weak . Resting on venturi mask. FIO2 28% . O2 saturation running 98%.Patient is having mild shortness of breath at rest. Patient tachycardic.Heart rate 125. 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 Children 1. Chest xray reported cardiomegaly and pulmonary vascular congestion. - Patient Problems (1) Pulmonary vascular congestion Current Visit: Yes Status: Acute Plan to address problem: 1. Continue venturi mask, FIO2 28%. 2. Fluid restriction. 3. Lasix if she develops more shortness of breath. (2) Diabetes mellitus with hyperosmolarity without coma, with long-term current use of insulin Current Visit: Yes Status: Acute Plan to address problem: Management as per primary care. (3) NSTEMI (non-ST elevated myocardial infarction) Current Visit: Yes Status: Acute Plan to address problem: Management as per cardiology. (4) H/O acute pancreatitis Current Visit: No Status: Acute Plan to address problem: Management as per primary care. (5) End-stage renal disease needing dialysis Current Visit: Yes Status: Chronic Plan to address problem: Management as per nephrology. (6) Acute metabolic encephalopathy Current Visit: No Status: Acute Plan to address problem: Management as per primary care. (7) Hypertension Current Visit: No Status: Chronic Plan to address problem: Management as per primary care. (8) Lupus Current Visit: No Status: Chronic Plan to address problem: Patient is on Plaquanil. Management as per primary care. (9) Seizure disorder Current Visit: No Status: Chronic Plan to address problem: Management as per neurology. Subjective Date of service: 09/05/19 Principal diagnosis: pancreatitis Interval history: Patient awake. Weak . Resting on venturi mask. FIO2 28% . O2 saturation running 98%.Patient is having mild shortness of breath at rest. Patient tachycardic.Heart rate 125. 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 Chest xray reported cardiomegaly and pulmonary vascular congestion. Objective Vital Signs - 12hr 09/05/19 09/05/19 09/05/19 01:50 02:00 02:10 Temperature Pulse Rate 120 H 120 H 130 H Pulse Rate [ From Monitor] Respiratory 23 11 L 18 Rate Blood Pressure 141/99 141/99 141/99 O2 Sat by Pulse 96 100 100 Oximetry O2 Sat by Pulse Oximetry [ Bilateral] 09/05/19 09/05/19 09/05/19 02:20 02:30 02:40 Temperature Pulse Rate 124 H 121 H 121 H Pulse Rate [ From Monitor] Respiratory 23 28 H 30 H Rate Blood Pressure 141/99 141/99 141/99 O2 Sat by Pulse 100 100 Oximetry O2 Sat by Pulse Oximetry [ Bilateral] 09/05/19 09/05/19 09/05/19 02:50 03:00 03:10 Temperature Pulse Rate 122 H 130 H 120 H Pulse Rate [ From Monitor] Respiratory 30 H 33 H 16 Rate Blood Pressure 141/99 141/99 141/99 O2 Sat by Pulse 100 98 99 Oximetry O2 Sat by Pulse Oximetry [ Bilateral] 09/05/19 09/05/19 09/05/19 03:20 03:30 03:40 Temperature Pulse Rate 121 H 123 H 121 H Pulse Rate [ From Monitor] Respiratory 29 H 32 H 26 H Rate Blood Pressure 141/99 141/99 141/99 O2 Sat by Pulse 98 97 100 Oximetry O2 Sat by Pulse Oximetry [ Bilateral] 09/05/19 09/05/19 09/05/19 03:50 04:00 04:10 Temperature 98.8 F Pulse Rate 121 H 123 H 132 H Pulse Rate [ 126 H From Monitor] Respiratory 30 H 36 H 38 H Rate Blood Pressure 141/99 141/99 141/99 O2 Sat by Pulse 98 98 98 Oximetry O2 Sat by Pulse Oximetry [ Bilateral] 09/05/19 09/05/19 09/05/19 04:20 04:30 04:40 Temperature Pulse Rate 125 H 127 H 127 H Pulse Rate [ From Monitor] Respiratory 36 H 30 H 21 Rate Blood Pressure 141/99 155/92 155/92 O2 Sat by Pulse 99 100 97 Oximetry O2 Sat by Pulse Oximetry [ Bilateral] 09/05/19 09/05/19 09/05/19 04:50 05:00 05:10 Temperature Pulse Rate 128 H 128 H 131 H Pulse Rate [ From Monitor] Respiratory 26 H 24 15 Rate Blood Pressure 155/92 155/92 155/92 O2 Sat by Pulse 100 61 L 100 Oximetry O2 Sat by Pulse Oximetry [ Bilateral] 09/05/19 09/05/19 09/05/19 05:20 05:30 05:51 Temperature Pulse Rate 126 H 127 H 126 H Pulse Rate [ From Monitor] Respiratory 20 15 Rate Blood Pressure 155/92 155/92 155/92 O2 Sat by Pulse 100 Oximetry O2 Sat by Pulse Oximetry [ Bilateral] 09/05/19 09/05/19 09/05/19 06:00 07:00 07:35 Temperature 97.9 F Pulse Rate 114 H 120 H Pulse Rate [ From Monitor] Respiratory 25 H 27 H Rate Blood Pressure 155/92 155/92 O2 Sat by Pulse 98 100 Oximetry O2 Sat by Pulse Oximetry [ Bilateral] 09/05/19 09/05/19 09/05/19 08:00 09:00 10:00 Temperature Pulse Rate 127 H 123 H 122 H Pulse Rate [ 126 H From Monitor] Respiratory 23 23 21 Rate Blood Pressure 137/77 137/77 113/60 O2 Sat by Pulse 97 100 Oximetry O2 Sat by Pulse Oximetry [ Bilateral] 09/05/19 09/05/19 09/05/19 10:16 10:45 11:00 Temperature 98.4 F Pulse Rate 122 H 115 H 124 H Pulse Rate [ From Monitor] Respiratory 18 32 H Rate Blood Pressure 113/60 121/63 119/66 O2 Sat by Pulse 100 Oximetry O2 Sat by Pulse 100 Oximetry [ Bilateral] 09/05/19 09/05/19 09/05/19 11:15 11:30 11:32 Temperature 98.6 F Pulse Rate 118 H 134 H Pulse Rate [ From Monitor] Respiratory Rate Blood Pressure 117/61 114/63 O2 Sat by Pulse Oximetry O2 Sat by Pulse Oximetry [ Bilateral] 09/05/19 09/05/19 09/05/19 11:45 12:00 12:10 Temperature 98.4 F Pulse Rate 126 H 120 H 122 H Pulse Rate [ 120 H From Monitor] Respiratory 30 H 28 H Rate Blood Pressure 120/66 110/45 85/41 O2 Sat by Pulse 98 Oximetry O2 Sat by Pulse Oximetry [ Bilateral] 09/05/19 09/05/19 09/05/19 12:15 12:25 12:30 Temperature 98.2 F Pulse Rate 121 H 118 H 118 H Pulse Rate [ From Monitor] Respiratory 32 H Rate Blood Pressure 92/45 90/54 96/55 O2 Sat by Pulse 99 Oximetry O2 Sat by Pulse Oximetry [ Bilateral] 09/05/19 09/05/19 12:43 13:00 Temperature 97.8 F Pulse Rate 118 H 118 H Pulse Rate [ From Monitor] Respiratory 21 25 H Rate Blood Pressure 104/53 90/50 O2 Sat by Pulse 81 L Oximetry O2 Sat by Pulse Oximetry [ Bilateral] Constitutional: alert, appears uncomfortable, other (Mild respiratory distress.) Eyes: non-icteric ENT: oropharynx moist Neck: supple, no lymphadenopathy Effort: mildly labored Ascultation: Bilateral: rales (FEW rales.) Cardiovascular: other (Tachycardia, rate 125.) Gastrointestinal: normoactive bowel sounds, soft, non-tender Integumentary: normal Extremities: no cyanosis, no edema Neurologic: non-focal exam, pupils equal and round Psychiatric: depressed CBC and BMP: 09/05/19 05:20 09/05/19 03:40 ABG, PT/INR, D-dimer: ABG POC ABG pH 7.487 (7.35-7.45) H 09/04/19 18:49 POC ABG pCO2 33.3 (35-45) L 09/04/19 18:49 POC ABG pO2 120 (80-105) H 09/04/19 18:49 POC ABG HCO3 25.2 (22-26 mml/L) 09/04/19 18:49 POC ABG Total CO2 26 (23-27mmol/L) 09/04/19 18:49 POC ABG O2 Sat 99 09/04/19 18:49 Abnormal lab findings: Abnormal Labs 08/19/19 08/19/19 08/19/19 20:48 20:48 23:48 WBC 17.2 H RBC 2.50 L Hgb 6.8 L Hct 22.3 L MCH 27 L RDW 18.6 H Lymph % (Auto) [place] % (Auto) [place] # Seg Neutrophils % Seg Neuts % (Manual) Lymphocytes % (Manual) Monocytes % (Manual) Nucleated RBC % Seg Neutrophils # Seg Neutrophils # Man Lymphocytes # (Manual) Monocytes # (Manual) POC ABG pH POC ABG pCO2 POC ABG pO2 Sodium 131 L Potassium 2.8 L* D Chloride 92.9 L Carbon Dioxide BUN 64 H Creatinine 5.2 H Glucose 981 H* POC Glucose Calcium 8.2 L Phosphorus Magnesium Direct Bilirubin ALT < 5 L Alkaline Phosphatase CK-MB (CK-2) 4.8 H CK-MB (CK-2) Rel Index 8.8 H Troponin T 0.249 H* 0.288 H* C-Reactive Protein Total Protein 4.7 L Albumin 1.9 L Triglycerides 197 H LDL Cholesterol Direct 34 L HDL Cholesterol 19 L Lipase 251 H Crossmatch 08/20/19 08/20/19 08/20/19 00:06 00:09 01:40 WBC RBC Hgb Hct MCH RDW Lymph % (Auto) [place] % (Auto) [place] # Seg Neutrophils % Seg Neuts % (Manual) Lymphocytes % (Manual) Monocytes % (Manual) Nucleated RBC % Seg Neutrophils # Seg Neutrophils # Man Lymphocytes # (Manual) Monocytes # (Manual) POC ABG pH POC ABG pCO2 POC ABG pO2 Sodium Potassium 3.3 L Chloride 96.6 L Carbon Dioxide BUN 71 H Creatinine 6.0 H Glucose 180 H POC Glucose 180 H 142 H Calcium Phosphorus Magnesium Direct Bilirubin ALT Alkaline Phosphatase CK-MB (CK-2) CK-MB (CK-2) Rel Index Troponin T C-Reactive Protein Total Protein Albumin Triglycerides LDL Cholesterol Direct HDL Cholesterol Lipase Crossmatch 08/20/19 08/20/19 08/20/19 10:38 10:38 17:24 WBC RBC Hgb Hct MCH RDW Lymph % (Auto) [place] % (Auto) [place] # Seg Neutrophils % Seg Neuts % (Manual) Lymphocytes % (Manual) Monocytes % (Manual) Nucleated RBC % Seg Neutrophils # Seg Neutrophils # Man Lymphocytes # (Manual) Monocytes # (Manual) POC ABG pH POC ABG pCO2 POC ABG pO2 Sodium Potassium 2.9 L* Chloride Carbon Dioxide 17 L D BUN 64 H Creatinine 5.6 H Glucose POC Glucose 124 H Calcium 6.8 L D Phosphorus Magnesium Direct Bilirubin ALT < 5 L Alkaline Phosphatase CK-MB (CK-2) 4.5 H CK-MB (CK-2) Rel Index 10.7 H Troponin T 0.323 H* C-Reactive Protein Total Protein 4.1 L Albumin 1.4 L Triglycerides LDL Cholesterol Direct HDL Cholesterol Lipase Crossmatch 08/20/19 08/20/19 08/21/19 20:20 21:25 07:55 WBC RBC Hgb Hct MCH RDW Lymph % (Auto) [place] % (Auto) [place] # Seg Neutrophils % Seg Neuts % (Manual) Lymphocytes % (Manual) Monocytes % (Manual) Nucleated RBC % Seg Neutrophils # Seg Neutrophils # Man Lymphocytes # (Manual) Monocytes # (Manual) POC ABG pH POC ABG pCO2 POC ABG pO2 Sodium Potassium 5.2 H D Chloride 97.6 L Carbon Dioxide BUN 52 H Creatinine 5.0 H Glucose 287 H POC Glucose 161 H Calcium Phosphorus Magnesium 1.60 L Direct Bilirubin ALT Alkaline Phosphatase CK-MB (CK-2) CK-MB (CK-2) Rel Index Troponin T C-Reactive Protein Total Protein Albumin Triglycerides LDL Cholesterol Direct HDL Cholesterol Lipase Crossmatch 08/21/19 08/21/19 08/21/19 08:04 12:04 16:30 WBC RBC Hgb Hct MCH RDW Lymph % (Auto) [place] % (Auto) [place] # Seg Neutrophils % Seg Neuts % (Manual) Lymphocytes % (Manual) Monocytes % (Manual) Nucleated RBC % Seg Neutrophils # Seg Neutrophils # Man Lymphocytes # (Manual) Monocytes # (Manual) POC ABG pH POC ABG pCO2 POC ABG pO2 Sodium Potassium Chloride Carbon Dioxide BUN Creatinine Glucose POC Glucose 157 H 188 H 255 H Calcium Phosphorus Magnesium Direct Bilirubin ALT Alkaline Phosphatase CK-MB (CK-2) CK-MB (CK-2) Rel Index Troponin T C-Reactive Protein Total Protein Albumin Triglycerides LDL Cholesterol Direct HDL Cholesterol Lipase Crossmatch 08/21/19 08/22/19 08/22/19 21:17 04:00 08:20 WBC RBC Hgb Hct MCH RDW Lymph % (Auto) [place] % (Auto) [place] # Seg Neutrophils % Seg Neuts % (Manual) Lymphocytes % (Manual) Monocytes % (Manual) Nucleated RBC % Seg Neutrophils # Seg Neutrophils # Man Lymphocytes # (Manual) Monocytes # (Manual) POC ABG pH POC ABG pCO2 POC ABG pO2 Sodium Potassium Chloride 96.4 L Carbon Dioxide BUN 65 H Creatinine 6.1 H Glucose 119 H POC Glucose 251 H 148 H Calcium 8.3 L Phosphorus Magnesium Direct Bilirubin ALT Alkaline Phosphatase CK-MB (CK-2) CK-MB (CK-2) Rel Index Troponin T C-Reactive Protein Total Protein Albumin Triglycerides LDL Cholesterol Direct HDL Cholesterol Lipase Crossmatch 08/22/19 08/22/19 08/22/19 14:45 16:29 21:04 WBC RBC Hgb 7.0 L Hct 22.3 L MCH RDW Lymph % (Auto) [place] % (Auto) [place] # Seg Neutrophils % Seg Neuts % (Manual) Lymphocytes % (Manual) Monocytes % (Manual) Nucleated RBC % Seg Neutrophils # Seg Neutrophils # Man Lymphocytes # (Manual) Monocytes # (Manual) POC ABG pH POC ABG pCO2 POC ABG pO2 Sodium Potassium Chloride Carbon Dioxide BUN Creatinine Glucose POC Glucose 115 H 162 H Calcium Phosphorus Magnesium Direct Bilirubin ALT Alkaline Phosphatase CK-MB (CK-2) CK-MB (CK-2) Rel Index Troponin T C-Reactive Protein Total Protein Albumin Triglycerides LDL Cholesterol Direct HDL Cholesterol Lipase Crossmatch 08/23/19 08/24/19 08/24/19 08:00 07:42 07:42 WBC 22.8 H RBC 2.47 L Hgb 6.7 L Hct 20.5 L MCH 27 L RDW 18.1 H Lymph % (Auto) [place] % (Auto) [place] # Seg Neutrophils % Seg Neuts % (Manual) 95.0 H Lymphocytes % (Manual) 3.0 L Monocytes % (Manual) Nucleated RBC % Seg Neutrophils # Seg Neutrophils # Man 21.7 H Lymphocytes # (Manual) 0.7 L Monocytes # (Manual) POC ABG pH POC ABG pCO2 POC ABG pO2 Sodium 136 L Potassium 5.7 H D Chloride 92.2 L Carbon Dioxide 19 L BUN 107 H Creatinine 9.1 H Glucose POC Glucose 141 H Calcium Phosphorus 7.40 H Magnesium Direct Bilirubin ALT Alkaline Phosphatase CK-MB (CK-2) CK-MB (CK-2) Rel Index Troponin T C-Reactive Protein Total Protein Albumin Triglycerides LDL Cholesterol Direct HDL Cholesterol Lipase Crossmatch 08/24/19 08/24/19 08/25/19 18:53 23:32 05:00 WBC RBC Hgb Hct MCH RDW Lymph % (Auto) [place] % (Auto) [place] # Seg Neutrophils % Seg Neuts % (Manual) Lymphocytes % (Manual) Monocytes % (Manual) Nucleated RBC % Seg Neutrophils # Seg Neutrophils # Man Lymphocytes # (Manual) Monocytes # (Manual) POC ABG pH POC ABG pCO2 POC ABG pO2 Sodium Potassium Chloride 93.9 L Carbon Dioxide BUN 61 H Creatinine 5.3 H Glucose 166 H POC Glucose 169 H 139 H Calcium Phosphorus Magnesium Direct Bilirubin ALT Alkaline Phosphatase CK-MB (CK-2) CK-MB (CK-2) Rel Index Troponin T C-Reactive Protein Total Protein Albumin Triglycerides LDL Cholesterol Direct HDL Cholesterol Lipase Crossmatch 08/25/19 08/25/19 08/25/19 05:00 05:14 22:02 WBC 19.7 H RBC 2.45 L Hgb 6.6 L Hct 20.4 L MCH 27 L RDW 18.6 H Lymph % (Auto) [place] % (Auto) [place] # Seg Neutrophils % Seg Neuts % (Manual) 75.0 H Lymphocytes % (Manual) Monocytes % (Manual) Nucleated RBC % Seg Neutrophils # Seg Neutrophils # Man 14.8 H Lymphocytes # (Manual) Monocytes # (Manual) POC ABG pH POC ABG pCO2 POC ABG pO2 Sodium Potassium Chloride Carbon Dioxide BUN Creatinine Glucose POC Glucose 225 H 106 H Calcium Phosphorus Magnesium Direct Bilirubin ALT Alkaline Phosphatase CK-MB (CK-2) CK-MB (CK-2) Rel Index Troponin T C-Reactive Protein Total Protein Albumin Triglycerides LDL Cholesterol Direct HDL Cholesterol Lipase Crossmatch 08/26/19 08/26/19 08/26/19 07:39 11:31 12:33 WBC RBC Hgb Hct MCH RDW Lymph % (Auto) [place] % (Auto) [place] # Seg Neutrophils % Seg Neuts % (Manual) Lymphocytes % (Manual) Monocytes % (Manual) Nucleated RBC % Seg Neutrophils # Seg Neutrophils # Man Lymphocytes # (Manual) Monocytes # (Manual) POC ABG pH POC ABG pCO2 POC ABG pO2 Sodium Potassium Chloride Carbon Dioxide BUN Creatinine Glucose POC Glucose 212 H 110 H Calcium Phosphorus Magnesium Direct Bilirubin ALT Alkaline Phosphatase CK-MB (CK-2) CK-MB (CK-2) Rel Index Troponin T C-Reactive Protein Total Protein Albumin Triglycerides LDL Cholesterol Direct HDL Cholesterol Lipase Crossmatch See Detail 08/26/19 08/26/19 08/26/19 12:33 12:33 17:38 WBC 18.4 H RBC 2.43 L Hgb 6.3 L Hct 20.1 L MCH 26 L RDW 18.5 H Lymph % (Auto) [place] % (Auto) [place] # Seg Neutrophils % Seg Neuts % (Manual) 80.0 H Lymphocytes % (Manual) 9.0 L Monocytes % (Manual) Nucleated RBC % Seg Neutrophils # Seg Neutrophils # Man 14.7 H Lymphocytes # (Manual) Monocytes # (Manual) POC ABG pH POC ABG pCO2 POC ABG pO2 Sodium Potassium Chloride 93.4 L Carbon Dioxide BUN 95 H Creatinine 8.1 H D Glucose 119 H POC Glucose 196 H Calcium Phosphorus 5.00 H D Magnesium Direct Bilirubin ALT Alkaline Phosphatase CK-MB (CK-2) CK-MB (CK-2) Rel Index Troponin T C-Reactive Protein Total Protein Albumin Triglycerides LDL Cholesterol Direct HDL Cholesterol Lipase Crossmatch 08/26/19 08/27/19 08/27/19 22:08 07:40 07:40 WBC 14.4 H RBC 2.17 L Hgb 5.7 L* Hct 18.1 L* MCH 26 L RDW 18.6 H Lymph % (Auto) [place] % (Auto) [place] # Seg Neutrophils % Seg Neuts % (Manual) Lymphocytes % (Manual) Monocytes % (Manual) 8.0 H Nucleated RBC % Seg Neutrophils # Seg Neutrophils # Man 9.6 H Lymphocytes # (Manual) Monocytes # (Manual) 1.2 H POC ABG pH POC ABG pCO2 POC ABG pO2 Sodium 136 L Potassium Chloride 87.5 L Carbon Dioxide 20 L BUN 117 H Creatinine 9.0 H Glucose 379 H POC Glucose 252 H Calcium Phosphorus 7.10 H D Magnesium Direct Bilirubin ALT Alkaline Phosphatase CK-MB (CK-2) CK-MB (CK-2) Rel Index Troponin T C-Reactive Protein Total Protein Albumin Triglycerides LDL Cholesterol Direct HDL Cholesterol Lipase Crossmatch 08/27/19 08/27/19 08/27/19 08:13 09:02 09:42 WBC RBC Hgb Hct MCH RDW Lymph % (Auto) [place] % (Auto) [place] # Seg Neutrophils % Seg Neuts % (Manual) Lymphocytes % (Manual) Monocytes % (Manual) Nucleated RBC % Seg Neutrophils # Seg Neutrophils # Man Lymphocytes # (Manual) Monocytes # (Manual) POC ABG pH POC ABG pCO2 POC ABG pO2 Sodium Potassium Chloride Carbon Dioxide BUN Creatinine Glucose 578 H* POC Glucose > 500 H > 500 H Calcium Phosphorus Magnesium Direct Bilirubin ALT Alkaline Phosphatase CK-MB (CK-2) CK-MB (CK-2) Rel Index Troponin T C-Reactive Protein Total Protein Albumin Triglycerides LDL Cholesterol Direct HDL Cholesterol Lipase Crossmatch 08/27/19 08/28/19 08/28/19 10:14 01:05 05:25 WBC RBC Hgb Hct MCH RDW Lymph % (Auto) [place] % (Auto) [place] # Seg Neutrophils % Seg Neuts % (Manual) Lymphocytes % (Manual) Monocytes % (Manual) Nucleated RBC % Seg Neutrophils # Seg Neutrophils # Man Lymphocytes # (Manual) Monocytes # (Manual) POC ABG pH POC ABG pCO2 POC ABG pO2 Sodium Potassium 3.5 L D Chloride 93.6 L Carbon Dioxide BUN 72 H Creatinine 5.5 H Glucose 361 H POC Glucose 485 H 161 H Calcium Phosphorus Magnesium Direct Bilirubin ALT Alkaline Phosphatase CK-MB (CK-2) CK-MB (CK-2) Rel Index Troponin T C-Reactive Protein Total Protein Albumin Triglycerides LDL Cholesterol Direct HDL Cholesterol Lipase Crossmatch 08/28/19 08/28/19 08/28/19 07:40 10:44 12:30 WBC RBC 3.43 L Hgb 9.4 L D Hct 29.1 L D MCH RDW 17.0 H Lymph % (Auto) [place] % (Auto) [place] # Seg Neutrophils % Seg Neuts % (Manual) 81.0 H Lymphocytes % (Manual) Monocytes % (Manual) Nucleated RBC % Seg Neutrophils # Seg Neutrophils # Man 8.6 H Lymphocytes # (Manual) Monocytes # (Manual) POC ABG pH POC ABG pCO2 POC ABG pO2 Sodium Potassium Chloride Carbon Dioxide BUN Creatinine Glucose POC Glucose 362 H 355 H Calcium Phosphorus Magnesium Direct Bilirubin ALT Alkaline Phosphatase CK-MB (CK-2) CK-MB (CK-2) Rel Index Troponin T C-Reactive Protein Total Protein Albumin Triglycerides LDL Cholesterol Direct HDL Cholesterol Lipase Crossmatch 08/28/19 08/28/19 08/29/19 18:01 21:38 05:00 WBC 12.3 H RBC 3.29 L Hgb 8.8 L Hct 27.8 L MCH 27 L RDW 17.1 H Lymph % (Auto) [place] % (Auto) [place] # Seg Neutrophils % Seg Neuts % (Manual) 80.0 H Lymphocytes % (Manual) Monocytes % (Manual) Nucleated RBC % Seg Neutrophils # Seg Neutrophils # Man 9.8 H Lymphocytes # (Manual) Monocytes # (Manual) POC ABG pH POC ABG pCO2 POC ABG pO2 Sodium Potassium Chloride Carbon Dioxide BUN Creatinine Glucose POC Glucose 150 H 240 H Calcium Phosphorus Magnesium Direct Bilirubin ALT Alkaline Phosphatase CK-MB (CK-2) CK-MB (CK-2) Rel Index Troponin T C-Reactive Protein Total Protein Albumin Triglycerides LDL Cholesterol Direct HDL Cholesterol Lipase Crossmatch 08/29/19 08/29/19 08/29/19 05:00 07:59 13:02 WBC RBC Hgb Hct MCH RDW Lymph % (Auto) [place] % (Auto) [place] # Seg Neutrophils % Seg Neuts % (Manual) Lymphocytes % (Manual) Monocytes % (Manual) Nucleated RBC % Seg Neutrophils # Seg Neutrophils # Man Lymphocytes # (Manual) Monocytes # (Manual) POC ABG pH POC ABG pCO2 POC ABG pO2 Sodium Potassium 3.3 L Chloride 89.7 L Carbon Dioxide BUN 111 H Creatinine 6.9 H Glucose 374 H POC Glucose 373 H 59 L Calcium Phosphorus 5.90 H Magnesium Direct Bilirubin ALT 5 L Alkaline Phosphatase 173 H CK-MB (CK-2) CK-MB (CK-2) Rel Index Troponin T C-Reactive Protein Total Protein 5.5 L Albumin 2.0 L Triglycerides LDL Cholesterol Direct HDL Cholesterol Lipase Crossmatch 08/29/19 08/29/19 08/30/19 18:38 22:36 06:29 WBC RBC Hgb Hct MCH RDW Lymph % (Auto) [place] % (Auto) [place] # Seg Neutrophils % Seg Neuts % (Manual) Lymphocytes % (Manual) Monocytes % (Manual) Nucleated RBC % Seg Neutrophils # Seg Neutrophils # Man Lymphocytes # (Manual) Monocytes # (Manual) POC ABG pH POC ABG pCO2 POC ABG pO2 Sodium Potassium Chloride Carbon Dioxide BUN Creatinine Glucose POC Glucose 111 H 157 H 427 H Calcium Phosphorus Magnesium Direct Bilirubin ALT Alkaline Phosphatase CK-MB (CK-2) CK-MB (CK-2) Rel Index Troponin T C-Reactive Protein Total Protein Albumin Triglycerides LDL Cholesterol Direct HDL Cholesterol Lipase Crossmatch 08/30/19 08/30/19 08/30/19 06:30 06:30 11:59 WBC 13.6 H RBC 3.22 L Hgb 8.9 L Hct 27.1 L MCH RDW 17.3 H Lymph % (Auto) [place] % (Auto) [place] # Seg Neutrophils % Seg Neuts % (Manual) 80.0 H Lymphocytes % (Manual) Monocytes % (Manual) Nucleated RBC % 2.0 H Seg Neutrophils # Seg Neutrophils # Man 10.9 H Lymphocytes # (Manual) Monocytes # (Manual) POC ABG pH POC ABG pCO2 POC ABG pO2 Sodium 136 L Potassium Chloride 86.8 L Carbon Dioxide 21 L BUN 141 H Creatinine 8.0 H Glucose 493 H POC Glucose 275 H Calcium Phosphorus 6.40 H Magnesium Direct Bilirubin ALT Alkaline Phosphatase CK-MB (CK-2) CK-MB (CK-2) Rel Index Troponin T C-Reactive Protein Total Protein Albumin Triglycerides LDL Cholesterol Direct HDL Cholesterol Lipase Crossmatch 08/30/19 08/31/19 08/31/19 21:28 05:45 05:45 WBC 11.8 H RBC 3.55 L Hgb 9.6 L Hct 30.1 L MCH 27 L RDW 17.3 H Lymph % (Auto) [place] % (Auto) 12.5 H [place] # 1.5 H Seg Neutrophils % 73.8 H Seg Neuts % (Manual) Lymphocytes % (Manual) Monocytes % (Manual) Nucleated RBC % Seg Neutrophils # 8.7 H Seg Neutrophils # Man Lymphocytes # (Manual) Monocytes # (Manual) POC ABG pH POC ABG pCO2 POC ABG pO2 Sodium 135 L Potassium Chloride 90.7 L Carbon Dioxide BUN 95 H Creatinine 5.9 H Glucose 406 H POC Glucose 183 H Calcium Phosphorus 4.90 H D Magnesium Direct Bilirubin ALT Alkaline Phosphatase CK-MB (CK-2) CK-MB (CK-2) Rel Index Troponin T C-Reactive Protein Total Protein Albumin Triglycerides LDL Cholesterol Direct HDL Cholesterol Lipase Crossmatch 08/31/19 08/31/19 08/31/19 06:16 12:18 17:03 WBC RBC Hgb Hct MCH RDW Lymph % (Auto) [place] % (Auto) [place] # Seg Neutrophils % Seg Neuts % (Manual) Lymphocytes % (Manual) Monocytes % (Manual) Nucleated RBC % Seg Neutrophils # Seg Neutrophils # Man Lymphocytes # (Manual) Monocytes # (Manual) POC ABG pH POC ABG pCO2 POC ABG pO2 Sodium Potassium Chloride Carbon Dioxide BUN Creatinine Glucose POC Glucose 407 H 199 H 118 H Calcium Phosphorus Magnesium Direct Bilirubin ALT Alkaline Phosphatase CK-MB (CK-2) CK-MB (CK-2) Rel Index Troponin T C-Reactive Protein Total Protein Albumin Triglycerides LDL Cholesterol Direct HDL Cholesterol Lipase Crossmatch 08/31/19 09/01/19 09/01/19 22:20 07:09 07:30 WBC RBC Hgb Hct MCH RDW Lymph % (Auto) [place] % (Auto) [place] # Seg Neutrophils % Seg Neuts % (Manual) Lymphocytes % (Manual) Monocytes % (Manual) Nucleated RBC % Seg Neutrophils # Seg Neutrophils # Man Lymphocytes # (Manual) Monocytes # (Manual) POC ABG pH POC ABG pCO2 POC ABG pO2 Sodium Potassium Chloride 89.2 L Carbon Dioxide BUN 125 H Creatinine 7.1 H Glucose 426 H POC Glucose 203 H 362 H Calcium Phosphorus 5.30 H Magnesium Direct Bilirubin ALT Alkaline Phosphatase CK-MB (CK-2) CK-MB (CK-2) Rel Index Troponin T C-Reactive Protein Total Protein Albumin Triglycerides LDL Cholesterol Direct HDL Cholesterol Lipase Crossmatch 09/01/19 09/01/19 09/01/19 08:35 11:27 18:42 WBC 22.8 H RBC 3.52 L Hgb 9.4 L Hct 29.5 L MCH 27 L RDW 18.3 H Lymph % (Auto) [place] % (Auto) [place] # Seg Neutrophils % Seg Neuts % (Manual) 98.0 H Lymphocytes % (Manual) 1.0 L Monocytes % (Manual) Nucleated RBC % Seg Neutrophils # Seg Neutrophils # Man 22.3 H Lymphocytes # (Manual) 0.2 L Monocytes # (Manual) POC ABG pH POC ABG pCO2 POC ABG pO2 Sodium Potassium Chloride Carbon Dioxide BUN Creatinine Glucose POC Glucose 325 H 162 H Calcium Phosphorus Magnesium Direct Bilirubin ALT Alkaline Phosphatase CK-MB (CK-2) CK-MB (CK-2) Rel Index Troponin T C-Reactive Protein Total Protein Albumin Triglycerides LDL Cholesterol Direct HDL Cholesterol Lipase Crossmatch 09/01/19 09/02/19 09/02/19 23:37 06:07 09:15 WBC 21.9 H RBC 2.60 L Hgb 7.0 L Hct 23.0 L D MCH 27 L RDW 19.1 H Lymph % (Auto) [place] % (Auto) [place] # Seg Neutrophils % Seg Neuts % (Manual) 98.0 H Lymphocytes % (Manual) 2.0 L Monocytes % (Manual) Nucleated RBC % Seg Neutrophils # Seg Neutrophils # Man 21.5 H Lymphocytes # (Manual) 0.4 L Monocytes # (Manual) POC ABG pH POC ABG pCO2 POC ABG pO2 Sodium Potassium Chloride Carbon Dioxide BUN Creatinine Glucose POC Glucose 276 H 438 H Calcium Phosphorus Magnesium Direct Bilirubin ALT Alkaline Phosphatase CK-MB (CK-2) CK-MB (CK-2) Rel Index Troponin T C-Reactive Protein Total Protein Albumin Triglycerides LDL Cholesterol Direct HDL Cholesterol Lipase Crossmatch 09/02/19 09/02/19 09/02/19 09:15 12:45 18:19 WBC RBC Hgb Hct MCH RDW Lymph % (Auto) [place] % (Auto) [place] # Seg Neutrophils % Seg Neuts % (Manual) Lymphocytes % (Manual) Monocytes % (Manual) Nucleated RBC % Seg Neutrophils # Seg Neutrophils # Man Lymphocytes # (Manual) Monocytes # (Manual) POC ABG pH POC ABG pCO2 POC ABG pO2 Sodium 131 L Potassium Chloride 84.4 L Carbon Dioxide 19 L BUN 156 H Creatinine 7.6 H Glucose 849 H* POC Glucose 362 H 148 H Calcium 8.2 L Phosphorus Magnesium 1.60 L Direct Bilirubin ALT 6 L Alkaline Phosphatase 139 H CK-MB (CK-2) CK-MB (CK-2) Rel Index Troponin T C-Reactive Protein 26.00 H Total Protein 4.9 L Albumin 1.6 L Triglycerides LDL Cholesterol Direct HDL Cholesterol Lipase 212 H Crossmatch 09/03/19 09/03/19 09/03/19 00:06 04:33 04:33 WBC 22.2 H RBC 2.71 L Hgb 7.5 L Hct 23.3 L MCH RDW 18.1 H Lymph % (Auto) [place] % (Auto) [place] # Seg Neutrophils % Seg Neuts % (Manual) 94.0 H Lymphocytes % (Manual) 4.0 L Monocytes % (Manual) Nucleated RBC % Seg Neutrophils # Seg Neutrophils # Man 20.9 H Lymphocytes # (Manual) 0.9 L Monocytes # (Manual) POC ABG pH POC ABG pCO2 POC ABG pO2 Sodium Potassium Chloride Carbon Dioxide BUN 88 H Creatinine 5.0 H Glucose 331 H POC Glucose 277 H Calcium Phosphorus Magnesium Direct Bilirubin ALT Alkaline Phosphatase CK-MB (CK-2) CK-MB (CK-2) Rel Index Troponin T C-Reactive Protein Total Protein Albumin Triglycerides LDL Cholesterol Direct HDL Cholesterol Lipase Crossmatch 09/03/19 09/03/19 09/04/19 06:12 21:26 01:09 EST WBC RBC Hgb Hct MCH RDW Lymph % (Auto) [place] % (Auto) [place] # Seg Neutrophils % Seg Neuts % (Manual) Lymphocytes % (Manual) Monocytes % (Manual) Nucleated RBC % Seg Neutrophils # Seg Neutrophils # Man Lymphocytes # (Manual) Monocytes # (Manual) POC ABG pH POC ABG pCO2 POC ABG pO2 Sodium Potassium Chloride Carbon Dioxide BUN Creatinine Glucose POC Glucose 288 H 67 L 166 H Calcium Phosphorus Magnesium Direct Bilirubin ALT Alkaline Phosphatase CK-MB (CK-2) CK-MB (CK-2) Rel Index Troponin T C-Reactive Protein Total Protein Albumin Triglycerides LDL Cholesterol Direct HDL Cholesterol Lipase Crossmatch 09/04/19 09/04/19 09/04/19 04:40 04:40 04:40 WBC 19.5 H RBC 2.49 L Hgb 6.7 L Hct 21.3 L MCH 27 L RDW 17.8 H Lymph % (Auto) 10.7 L [place] % (Auto) [place] # 1.3 H Seg Neutrophils % 82.2 H Seg Neuts % (Manual) Lymphocytes % (Manual) Monocytes % (Manual) Nucleated RBC % Seg Neutrophils # 16.0 H Seg Neutrophils # Man Lymphocytes # (Manual) Monocytes # (Manual) POC ABG pH POC ABG pCO2 POC ABG pO2 Sodium Potassium Chloride 94.4 L Carbon Dioxide BUN 112 H Creatinine 6.3 H Glucose 273 H POC Glucose Calcium Phosphorus 5.30 H Magnesium Direct Bilirubin 0.3 H ALT Alkaline Phosphatase CK-MB (CK-2) CK-MB (CK-2) Rel Index Troponin T C-Reactive Protein Total Protein 5.0 L Albumin 1.5 L Triglycerides LDL Cholesterol Direct HDL Cholesterol Lipase Crossmatch 09/04/19 09/04/19 09/04/19 06:03 07:55 14:25 WBC 20.7 H RBC 2.45 L Hgb 6.5 L Hct 20.6 L MCH 26 L RDW 17.3 H Lymph % (Auto) [place] % (Auto) [place] # Seg Neutrophils % Seg Neuts % (Manual) Lymphocytes % (Manual) Monocytes % (Manual) Nucleated RBC % Seg Neutrophils # Seg Neutrophils # Man Lymphocytes # (Manual) Monocytes # (Manual) POC ABG pH POC ABG pCO2 POC ABG pO2 Sodium Potassium Chloride Carbon Dioxide BUN Creatinine Glucose POC Glucose 309 H 287 H Calcium Phosphorus Magnesium Direct Bilirubin ALT Alkaline Phosphatase CK-MB (CK-2) CK-MB (CK-2) Rel Index Troponin T C-Reactive Protein Total Protein Albumin Triglycerides LDL Cholesterol Direct HDL Cholesterol Lipase Crossmatch 09/04/19 09/04/19 09/05/19 16:40 18:49 03:40 WBC RBC Hgb Hct MCH RDW Lymph % (Auto) [place] % (Auto) [place] # Seg Neutrophils % Seg Neuts % (Manual) Lymphocytes % (Manual) Monocytes % (Manual) Nucleated RBC % Seg Neutrophils # Seg Neutrophils # Man Lymphocytes # (Manual) Monocytes # (Manual) POC ABG pH 7.487 H POC ABG pCO2 33.3 L POC ABG pO2 120 H Sodium Potassium Chloride 92.4 L Carbon Dioxide 21 L BUN 138 H Creatinine 7.2 H Glucose 214 H POC Glucose 66 L Calcium Phosphorus Magnesium Direct Bilirubin ALT Alkaline Phosphatase CK-MB (CK-2) CK-MB (CK-2) Rel Index Troponin T C-Reactive Protein Total Protein Albumin Triglycerides LDL Cholesterol Direct HDL Cholesterol Lipase Crossmatch 09/05/19 09/05/19 09/05/19 05:20 06:10 08:18 WBC 17.9 H RBC 2.44 L Hgb 6.5 L Hct 20.5 L MCH 27 L RDW 18.1 H Lymph % (Auto) 10.0 L [place] % (Auto) [place] # 1.2 H Seg Neutrophils % 83.0 H Seg Neuts % (Manual) Lymphocytes % (Manual) Monocytes % (Manual) Nucleated RBC % Seg Neutrophils # 14.8 H Seg Neutrophils # Man Lymphocytes # (Manual) Monocytes # (Manual) POC ABG pH POC ABG pCO2 POC ABG pO2 Sodium Potassium Chloride Carbon Dioxide BUN Creatinine Glucose POC Glucose 252 H 291 H Calcium Phosphorus Magnesium Direct Bilirubin ALT Alkaline Phosphatase CK-MB (CK-2) CK-MB (CK-2) Rel Index Troponin T C-Reactive Protein Total Protein Albumin Triglycerides LDL Cholesterol Direct HDL Cholesterol Lipase Crossmatch 09/05/19 09/05/19 09:21 11:35 WBC RBC Hgb Hct MCH RDW Lymph % (Auto) [place] % (Auto) [place] # Seg Neutrophils % Seg Neuts % (Manual) Lymphocytes % (Manual) Monocytes % (Manual) Nucleated RBC % Seg Neutrophils # Seg Neutrophils # Man Lymphocytes # (Manual) Monocytes # (Manual) POC ABG pH POC ABG pCO2 POC ABG pO2 Sodium Potassium Chloride Carbon Dioxide BUN Creatinine Glucose POC Glucose 201 H Calcium Phosphorus Magnesium Direct Bilirubin ALT Alkaline Phosphatase CK-MB (CK-2) CK-MB (CK-2) Rel Index Troponin T C-Reactive Protein Total Protein Albumin Triglycerides LDL Cholesterol Direct HDL Cholesterol Lipase Crossmatch See Detail Chest x-ray: report reviewed (Cardiomegaly. Pulmonary vascular congestion.), image reviewed
[2019-09-05] MEDS: MEROPENEM/NS 500 MG/50 ML 500 MG/50 ML BAG IV SCH (14:33)
--- NOTE | 2019-09-05 15:01 | Progress Note ---
Subjective - Reason for Consult Consult date: 09/05/19 Reason for consult: Psychiatry Follow-up - Chief Complaint Chief complaint: "Hello" 29 y.o. AA female who presented to the ER for AMS. Today the patient was calm during the assessment. The patient was receiving O2 by venturi mask. Per the MAR, the patient have been taking most of her scheduled medication. No gestures of SI/HI's. Mental Status Exam - Vital signs Last Vital Signs Temp 96.8 F L 09/05/19 14:15 Pulse 118 H 09/05/19 14:15 Resp 16 09/05/19 14:15 BP 102/61 09/05/19 14:15 Pulse Ox 97 09/05/19 14:15 - Exam Narrative exam: Unable to complete the MSE because of the patient is receiving O2 (venturi mask). Assessment and Plan Impression. Delirium. Today the patient was calm during the assessment. Cr 7.2. DDx: Unspecified Personality DO Recommendation/Plan: Continue 1013 and Zyprexa Zydis ODT 5 mg BID for psychosis. Place tablet on the patients's tongue for administration. Recommend no narcotics at this time. Recommend Delirium precautions below: 1. Frequently reorient patient and involve him/her in their care (simple explanations of procedures, tests, medications). 2. Lights on and shades open during daytime hours. 3. Write date and goals of care in a visible place. 4. Try to avoid unnecessary interruptions to sleep during nighttime hours. 5. Obtain glasses, hearing aids from home if patient uses these at baseline. 6. Avoid medications that may exacerbate delirium (especially narcotics, benzodiazepines, barbiturates, ambien, lunesta, and medications with excessive anticholinergic properties). The patient has Percocet (PRN) and Atarax (scheduled) in her MAR? Recommend Atarax PRN and a NSAID for pain. Dispo: The patient is pending transfer to [place] per Case Mgmt. Staffed with Dr Luis Rivera.
--- NOTE | 2019-09-05 15:43 | Progress Note ---
Assessment and Plan 29 yo F with 1. abd pain 2. 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 hx of necrotizing pancreatitis Plan: 1. Multiple pseudocysts. Large LUQ pseudocyst compressing on stomach likely leading to symptoms of n/v. CT A/P from 08/[address] Araujo. Pseudocysts do appear to have a wall. 2. Pt refusing NGT 3. NPO 4. TPN - will need TPN indefinitely at this time as patient will need to be kept NPO. Doubt she will tolerate anything PO due to compression of stomach by pseudocyst 5. IVF 6. prn nausea control 7. prn pain control 8. GI consulted and recommend transfer to tertiary care center Transfer of patient initiated on Thursday however no beds available at [facility] or [facility]. I spoke with Dr. Head (pancreatic/biliary surgery) and Dr. Rivera (GI - biliary) at [facility] today. Surgery does NOT recommend drainage of the pseudocyst. GI recommends continuing bowel rest, TPN, and will follow up again this evening regarding transfer. Pt will likely need GI evaluation and intervention at [facility] for ERCP or EGD with transgastric cystgastrostomy. Discussed with Dr. Sinclair. Patient is not stable for discharge. Awaiting return phone call from [facility]. Thank you, please call with questions. Subjective Date of service: 09/05/19 Narrative: Pt seen and examined. Still having nausea and vomiting but refusing NGT per notes. No f/c. Objective Vital Signs - 12hr 09/05/19 09/05/19 09/05/19 03:40 03:50 04:00 Temperature 98.8 F Pulse Rate 121 H 121 H 123 H Pulse Rate [ 126 H From Monitor] Respiratory 26 H 30 H 36 H Rate Blood Pressure 141/99 141/99 141/99 O2 Sat by Pulse 100 98 98 Oximetry O2 Sat by Pulse Oximetry [ Bilateral] 09/05/19 09/05/19 09/05/19 04:10 04:20 04:30 Temperature Pulse Rate 132 H 125 H 127 H Pulse Rate [ From Monitor] Respiratory 38 H 36 H 30 H Rate Blood Pressure 141/99 141/99 155/92 O2 Sat by Pulse 98 99 100 Oximetry O2 Sat by Pulse Oximetry [ Bilateral] 09/05/19 09/05/19 09/05/19 04:40 04:50 05:00 Temperature Pulse Rate 127 H 128 H 128 H Pulse Rate [ From Monitor] Respiratory 21 26 H 24 Rate Blood Pressure 155/92 155/92 155/92 O2 Sat by Pulse 97 100 61 L Oximetry O2 Sat by Pulse Oximetry [ Bilateral] 09/05/19 09/05/19 09/05/19 05:10 05:20 05:30 Temperature Pulse Rate 131 H 126 H 127 H Pulse Rate [ From Monitor] Respiratory 15 20 15 Rate Blood Pressure 155/92 155/92 155/92 O2 Sat by Pulse 100 100 Oximetry O2 Sat by Pulse Oximetry [ Bilateral] 09/05/19 09/05/19 09/05/19 05:51 06:00 07:00 Temperature Pulse Rate 126 H 114 H 120 H Pulse Rate [ From Monitor] Respiratory 25 H 27 H Rate Blood Pressure 155/92 155/92 155/92 O2 Sat by Pulse 98 100 Oximetry O2 Sat by Pulse Oximetry [ Bilateral] 09/05/19 09/05/19 09/05/19 07:35 08:00 09:00 Temperature 97.9 F Pulse Rate 127 H 123 H Pulse Rate [ 126 H From Monitor] Respiratory 23 23 Rate Blood Pressure 137/77 137/77 O2 Sat by Pulse 97 100 Oximetry O2 Sat by Pulse Oximetry [ Bilateral] 09/05/19 09/05/19 09/05/19 10:00 10:16 10:45 Temperature 98.4 F Pulse Rate 122 H 122 H 115 H Pulse Rate [ From Monitor] Respiratory 21 18 Rate Blood Pressure 113/60 113/60 121/63 O2 Sat by Pulse Oximetry O2 Sat by Pulse 100 Oximetry [ Bilateral] 09/05/19 09/05/19 09/05/19 11:00 11:15 11:30 Temperature Pulse Rate 124 H 118 H 134 H Pulse Rate [ From Monitor] Respiratory 32 H Rate Blood Pressure 119/66 117/61 114/63 O2 Sat by Pulse 100 Oximetry O2 Sat by Pulse Oximetry [ Bilateral] 09/05/19 09/05/19 09/05/19 11:32 11:45 12:00 Temperature 98.6 F Pulse Rate 126 H 120 H Pulse Rate [ 120 H From Monitor] Respiratory 30 H Rate Blood Pressure 120/66 110/45 O2 Sat by Pulse 98 Oximetry O2 Sat by Pulse Oximetry [ Bilateral] 09/05/19 09/05/19 09/05/19 12:10 12:15 12:25 Temperature 98.4 F 98.2 F Pulse Rate 122 H 121 H 118 H Pulse Rate [ From Monitor] Respiratory 28 H 32 H Rate Blood Pressure 85/41 92/45 90/54 O2 Sat by Pulse 99 Oximetry O2 Sat by Pulse Oximetry [ Bilateral] 09/05/19 09/05/19 09/05/19 12:30 12:43 12:45 Temperature 97.8 F Pulse Rate 118 H 118 H 117 H Pulse Rate [ From Monitor] Respiratory 21 Rate Blood Pressure 96/55 104/53 104/53 O2 Sat by Pulse Oximetry O2 Sat by Pulse Oximetry [ Bilateral] 09/05/19 09/05/19 09/05/19 13:00 13:15 13:30 Temperature Pulse Rate 117 H 117 H 119 H Pulse Rate [ From Monitor] Respiratory 25 H Rate Blood Pressure 90/50 96/58 97/51 O2 Sat by Pulse 81 L Oximetry O2 Sat by Pulse Oximetry [ Bilateral] 09/05/19 09/05/19 09/05/19 13:45 14:00 14:15 Temperature 96.8 F L Pulse Rate 120 H 115 H 118 H Pulse Rate [ From Monitor] Respiratory 16 Rate Blood Pressure 94/59 100/61 102/61 O2 Sat by Pulse Oximetry O2 Sat by Pulse 97 Oximetry [ Bilateral] - General physical appearance Narrative Exam: Gen; Arousable but sleepy. NAD CV: S1, S2+ Tachy Resp: even and unlabored Abd: soft, distended, NT. no r/r/g Ext: no c/c/e - Labs 09/05/19 05:20 09/05/19 03:40 Diabetes panel 09/05/19 Range/Units 03:40 Sodium 138 (137-145) mmol/L Potassium 3.6 (3.6-5.0) mmol/L Chloride 92.4 L (98-107) mmol/L Carbon Dioxide 21 L (22-30) mmol/L BUN 138 H (7-17) mg/dL Creatinine 7.2 H (0.7-1.2) mg/dL Glucose 214 H (65-100) mg/dL Calcium 8.6 (8.4-10.2) mg/dL Calcium panel 09/05/19 Range/Units 03:40 Calcium 8.6 (8.4-10.2) mg/dL Pituitary panel 09/05/19 Range/Units 03:40 Sodium 138 (137-145) mmol/L Potassium 3.6 (3.6-5.0) mmol/L Chloride 92.4 L (98-107) mmol/L Carbon Dioxide 21 L (22-30) mmol/L BUN 138 H (7-17) mg/dL Creatinine 7.2 H (0.7-1.2) mg/dL Glucose 214 H (65-100) mg/dL Calcium 8.6 (8.4-10.2) mg/dL Adrenal panel 09/05/19 Range/Units 03:40 Sodium 138 (137-145) mmol/L Potassium 3.6 (3.6-5.0) mmol/L Chloride 92.4 L (98-107) mmol/L Carbon Dioxide 21 L (22-30) mmol/L BUN 138 H (7-17) mg/dL Creatinine 7.2 H (0.7-1.2) mg/dL Glucose 214 H (65-100) mg/dL Calcium 8.6 (8.4-10.2) mg/dL
[2019-09-05] MEDS: DEXTROSE 50% IN WATER (25GM) 50 ML SYRINGE IV PRN (17:21)
[2019-09-05] MEDS ORDERED: TOTAL PARENTERAL NUTRITION 1,560 ML IV SCH (20:00)
[2019-09-05] MEDS ORDERED: FAT EMULSIONS 20% 250 ML IV SCH (20:00)
[2019-09-05] MEDS: MELATONIN 5 MG TAB PO SCH (21:52)
[2019-09-06] MEDS: METOPROLOL TARTRATE 5 MG/5 ML INJ IV PRN ×2 (00:03→06:04)
[2019-09-06 04:47] LABS: Basophils % (Auto) 0.2 % (0.0-1.8); Eosinophils % (Auto) 0.2 % (0.0-4.3); Hematocrit 25.3 % (30.3-42.9); Hemoglobin 8.2 gm/dl (10.1-14.3); Lymphocytes % (Auto) 12.5 % (13.4-35.0); Mean Corpuscular HGB Conc 32 % (30-34); Mean Corpuscular Volume 86 fl (79-97); Monocytes # (Auto) 1.6 K/mm3 (0.0-0.8); Monocytes % (Auto) 10.1 % (0.0-7.3); Platelet Count 253 K/mm3 (140-440); Red Blood Count 2.94 M/mm3 (3.65-5.03); Red Cell Distribution Width 16.4 % (13.2-15.2)
[2019-09-06 05:10] LABS: Albumin 1.5 g/dL (3.9-5); Calcium 8.4 mg/dL (8.4-10.2)
[2019-09-06] MEDS: ONDANSETRON 4 MG/2 ML INJ IV PRN ×2 (05:17→13:59)
[2019-09-06] MEDS: SEVELAMER CARBONATE 800 MG TAB PO SCH ×2 (07:30→16:30)
[2019-09-06] MEDS: INSULIN LISPRO 100 UNIT/ML SUB-Q SCH ×4 (08:15→22:00)
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
--- NOTE | 2019-09-06 08:42 | Progress Note ---
Assessment and Plan Assessment and plan: 29-year-old woman with lupus, end-stage renal disease, hypertension, anemia who was discharged from the hospital after being treated for necrotizing pancreatitis, sepsis and right labial abscess. Patient was discharged home with TPN with home health care but Family was unable to care for her and then b rought her back to the hospital on next day of her discharge. She is wheelchair-bound. Had intermittent seizures because of noncompliance. 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 Has severe anemia and s/p 2 units PRBC transfusion. Continue to have Ps ychosis with delusions,Psych evaluated.Family not willing to take her back, difficult placement. Patient developed severe abd pain CT A/P 08/31/19 worsening pancreatitis. multiple pseudocysts, Evaluated by general surgeon and GI. Plan to transfer to [facility] for higher level of care -possible surgical intervention for enlarged pseudocyst. Transfer to [facility] initiated by Surgery,accepted,beds were not available yesterday ,awaiting call back from [facility] with bed availability. --Multiple Pseudocysts: N.p.o., IV fluids Supportive care, patient refused NG tube Continue TPN --Necrotizing pancreatitis: TPN, IV fluids, supportive care --Acute hypoxic respiratory failure Due to volume overload ,worsening necrotizing pancreatitis Oxygen titrate O2 sats to more than 90%, supportive care --Sirs vs sepsis? with tachycardia, elevated white count likely from worsening necrotizing pancreatitis - infected? NPO, IV hydration with TPN, meropenem --Accerelated HTN with tachycardia Continue current antihypertensives and as needed medications --Severe Anemia of chronic disease;Hb 5.7 - 9.4 s/p 3 unit of PRBC transfusion during dialysis, Procrit. --Delusions: Psych following Her family has reported that she has been having delusions and she has been paranoid and cannot take care of her and requested placement Psych following continue current management --Acute metabolic encephalopathy MRI, MRA brain negative, lupus encephalopathy ruled out --Severe malnutrition, Continue TPN, dietary following --End-stage renal disease, Continue dialysis --H/O SLE: Continue mycophenolate and Plaquenil, steroid IV --Non-ST elevation CA Type 2. due to end-stage renal disease Cardiology evaluated continue current management --Diabetes type 2, uncontrolled Accu-Chek sliding scale coverage and insulin long acting --DVT prophylaxis SCD --Chronic debility; PT, Awaiting placement in custodial facility Patient is critically ill with very poor prognosis. Patient is awaiting transfer to [facility]. Waiting for callback from [facility] with bed assignment Critical care time 32 minutes History Interval history: Patient seen and examined medical records reviewed Awaiting transfer to [facility] for higher level of care Patient is critically ill looking Minimally communicative, Vital signs reviewed Hospitalist Physical - Constitutional Vitals: Temp Pulse Resp BP Pulse Ox 100.7 F H 141 H 28 H 139/78 99 09/06/19 07:00 09/06/19 06:04 09/06/19 06:00 09/06/19 07:00 09/06/19 07:00 General appearance: Present: mild distress, cachectic, disheveled - EENT Eyes: Present: PERRL, EOM intact - Neck Neck: Present: supple - Respiratory Respiratory: bilateral: diminished, negative: rales, rhonchi, wheezing - Cardiovascular Rhythm: regular Heart Sounds: Present: S1 & S2 - Extremities Extremities: no ischemia, No edema - Abdominal General gastrointestinal: soft, non-tender, non-distended, normal bowel sounds - Integumentary Integumentary: Present: clear, warm - Psychiatric Psychiatric: appropriate mood/affect, cooperative - Neurologic Neurologic: moves all extremities Results - Labs CBC & Chem 7: 09/06/19 04:17 09/06/19 04:17 Labs: Laboratory Last Values WBC 16.0 K/mm3 (4.5-11.0) H 09/06/19 04:17 RBC 2.94 M/mm3 (3.65-5.03) L 09/06/19 04:17 Hgb 8.2 gm/dl (10.1-14.3) L 09/06/19 04:17 Hct 25.3 % (30.3-42.9) L 09/06/19 04:17 MCV 86 fl (79-97) 09/06/19 04:17 MCH 28 pg (28-32) 09/06/19 04:17 MCHC 32 % (30-34) 09/06/19 04:17 RDW 16.4 % (13.2-15.2) H 09/06/19 04:17 Plt Count 253 K/mm3 (140-440) 09/06/19 04:17 Lymph % (Auto) 12.5 % (13.4-35.0) L 09/06/19 04:17 Parker % (Auto) 10.1 % (0.0-7.3) H 09/06/19 04:17 Eos % (Auto) 0.2 % (0.0-4.3) 09/06/19 04:17 Baso % (Auto) 0.2 % (0.0-1.8) 09/06/19 04:17 Lymph # 2.0 K/mm3 (1.2-5.4) 09/06/19 04:17 Parker # 1.6 K/mm3 (0.0-0.8) H 09/06/19 04:17 Eos # 0.0 K/mm3 (0.0-0.4) 09/06/19 04:17 Baso # 0.0 K/mm3 (0.0-0.1) 09/06/19 04:17 Add Manual Diff Complete 09/03/19 04:33 Total Counted 100 09/03/19 04:33 Seg Neutrophils % 77.0 % (40.0-70.0) H 09/06/19 04:17 Seg Neuts % (Manual) 94.0 % (40.0-70.0) H 09/03/19 04:33 Band Neutrophils % 0 % 09/03/19 04:33 Lymphocytes % (Manual) 4.0 % (13.4-35.0) L 09/03/19 04:33 Reactive Lymphs % (Man) 0 % 09/03/19 04:33 Monocytes % (Manual) 1.0 % (0.0-7.3) 09/03/19 04:33 Eosinophils % (Manual) 0 % (0.0-4.3) 09/03/19 04:33 Basophils % (Manual) 0 % (0.0-1.8) 09/03/19 04:33 Metamyelocytes % 1.0 % 09/03/19 04:33 Myelocytes % 0 % 09/03/19 04:33 Promyelocytes % 0 % 09/03/19 04:33 Blast Cells % 0 % 09/03/19 04:33 Nucleated RBC % Not Reportable 09/03/19 04:33 Seg Neutrophils # 12.3 K/mm3 (1.8-7.7) H 09/06/19 04:17 Seg Neutrophils # Man 20.9 K/mm3 (1.8-7.7) H 09/03/19 04:33 Band Neutrophils # 0.0 K/mm3 09/03/19 04:33 Lymphocytes # (Manual) 0.9 K/mm3 (1.2-5.4) L 09/03/19 04:33 Abs React Lymphs (Man) 0.0 K/mm3 09/03/19 04:33 Monocytes # (Manual) 0.2 K/mm3 (0.0-0.8) 09/03/19 04:33 Eosinophils # (Manual) 0.0 K/mm3 (0.0-0.4) 09/03/19 04:33 Basophils # (Manual) 0.0 K/mm3 (0.0-0.1) 09/03/19 04:33 Metamyelocytes # 0.2 K/mm3 09/03/19 04:33 Myelocytes # 0.0 K/mm3 09/03/19 04:33 Promyelocytes # 0.0 K/mm3 09/03/19 04:33 Blast Cells # 0.0 K/mm3 09/03/19 04:33 WBC Morphology Not Reportable 09/03/19 04:33 Hypersegmented Neuts Not Reportable 09/03/19 04:33 Hyposegmented Neuts Not Reportable 09/03/19 04:33 Hypogranular Neuts Not Reportable 09/03/19 04:33 Smudge Cells Not Reportable 09/03/19 04:33 Toxic Granulation Not Reportable 09/03/19 04:33 Toxic Vacuolation Not Reportable 09/03/19 04:33 Dohle Bodies Not Reportable 09/03/19 04:33 Pelger-Huet Anomaly Not Reportable 09/03/19 04:33 Rose Rods Not Reportable 09/03/19 04:33 Platelet Estimate Consistent w auto 09/03/19 04:33 Clumped Platelets Not Reportable 09/03/19 04:33 Plt Clumps, EDTA Not Reportable 09/03/19 04:33 Large Platelets Not Reportable 09/03/19 04:33 Giant Platelets Not Reportable 09/03/19 04:33 Platelet Satelliting Not Reportable 09/03/19 04:33 Plt Morphology Comment Not Reportable 09/03/19 04:33 RBC Morphology Not Reportable 09/03/19 04:33 Dimorphic RBCs Not Reportable 09/03/19 04:33 Polychromasia Not Reportable 09/03/19 04:33 Hypochromasia Not Reportable 09/03/19 04:33 Poikilocytosis 1+ 09/03/19 04:33 Anisocytosis 1+ 09/03/19 04:33 Microcytosis Few 09/03/19 04:33 Macrocytosis Rare 09/03/19 04:33 Spherocytes Not Reportable 09/03/19 04:33 Pappenheimer Bodies Not Reportable 09/03/19 04:33 Sickle Cells Not Reportable 09/03/19 04:33 Target Cells Not Reportable 09/03/19 04:33 Tear Drop Cells Rare 09/03/19 04:33 Ovalocytes Not Reportable 09/03/19 04:33 Helmet Cells Not Reportable 09/03/19 04:33 Benavidez-[place] Bodies Not Reportable 09/03/19 04:33 [place] Rings Not Reportable 09/03/19 04:33 [place] Cells Not Reportable 09/03/19 04:33 Bite Cells Not Reportable 09/03/19 04:33 Crenated Cell Not Reportable 09/03/19 04:33 Elliptocytes Few 09/03/19 04:33 Acanthocytes (Spur) Not Reportable 09/03/19 04:33 Rouleaux Not Reportable 09/03/19 04:33 Hemoglobin C Crystals Not Reportable 09/03/19 04:33 Schistocytes Not Reportable 09/03/19 04:33 Malaria parasites Not Reportable 09/03/19 04:33 Dinesh Bodies Not Reportable 09/03/19 04:33 Hem Pathologist Commnt No 09/03/19 04:33 POC ABG pH 7.487 (7.35-7.45) H 09/04/19 18:49 POC ABG pCO2 33.3 (35-45) L 09/04/19 18:49 POC ABG pO2 120 (80-105) H 09/04/19 18:49 POC ABG HCO3 25.2 (22-26 mml/L) 09/04/19 18:49 POC ABG Total CO2 26 (23-27mmol/L) 09/04/19 18:49 POC ABG O2 Sat 99 09/04/19 18:49 POC ABG Base Excess 2 ((-2) - (+3)mmol/L) 09/04/19 18:49 FiO2 24 % 09/04/19 18:49 Sodium 139 mmol/L (137-145) 09/06/19 04:17 Potassium 3.5 mmol/L (3.6-5.0) L 09/06/19 04:17 Chloride 94.2 mmol/L (98-107) L 09/06/19 04:17 Carbon Dioxide 24 mmol/L (22-30) 09/06/19 04:17 Anion Gap 24 mmol/L 09/06/19 04:17 BUN 88 mg/dL (7-17) H 09/06/19 04:17 Creatinine 5.2 mg/dL (0.7-1.2) H 09/06/19 04:17 Estimated GFR 12 ml/min 09/06/19 04:17 BUN/Creatinine Ratio 17 % 09/06/19 04:17 Glucose 198 mg/dL (65-100) H 09/06/19 04:17 POC Glucose 278 (70-105) H 09/06/19 07:51 Calcium 8.4 mg/dL (8.4-10.2) 09/06/19 04:17 Phosphorus 5.30 mg/dL (2.5-4.5) H 09/04/19 04:40 Magnesium 2.00 mg/dL (1.7-2.3) 09/05/19 03:40 Total Bilirubin 0.50 mg/dL (0.1-1.2) 09/06/19 04:17 Direct Bilirubin 0.3 mg/dL (0-0.2) H 09/04/19 04:40 Indirect Bilirubin 0.1 mg/dL 09/04/19 04:40 AST 14 units/L (5-40) 09/06/19 04:17 ALT 6 units/L (7-56) L 09/06/19 04:17 Alkaline Phosphatase 151 units/L (35-129) H 09/06/19 04:17 Total Creatine Kinase 42 units/L (30-135) 08/20/19 10:38 CK-MB (CK-2) 4.5 ng/mL (0.0-4.0) H 08/20/19 10:38 CK-MB (CK-2) Rel Index 10.7 (0-4) H 08/20/19 10:38 Troponin T 0.323 ng/mL (0.00-0.029) H* 08/20/19 10:38 C-Reactive Protein 26.00 mg/dL (0.00-1.30) H 09/02/19 09:15 Total Protein 5.2 g/dL (6.3-8.2) L 09/06/19 04:17 Albumin 1.5 g/dL (3.9-5) L 09/06/19 04:17 Albumin/Globulin Ratio 0.4 % 09/06/19 04:17 Triglycerides 132 mg/dL (2-149) 08/26/19 12:33 Cholesterol 83 mg/dL (50-199) 08/19/19 20:48 LDL Cholesterol Direct 34 mg/dL (50-130) L 08/19/19 20:48 HDL Cholesterol 19 mg/dL (40-59) L 08/19/19 20:48 Cholesterol/HDL Ratio 4.36 % 08/19/19 20:48 Lipase 212 units/L (13-60) H 09/02/19 09:15 Hepatitis A IgM Ab Non-reactive (NonReactive) 08/22/19 22:30 Hep Bs Antigen Non-reactive (Negative) 08/22/19 22:30 Hep B Core IgM Ab Non-reactive (NonReactive) 08/22/19 22:30 Hepatitis C Antibody Non-reactive (NonReactive) 08/22/19 22:30 Blood Type A POSITIVE 09/05/19 09:21 Antibody Screen Negative 09/05/19 09:21 Crossmatch See Detail 09/05/19 09:21 Active Medications - Current Medications Current Medications: Generic Name Dose Route Start Last Admin Trade Name Freq PRN Reason Stop Dose Admin Acetaminophen 650 mg 08/19/19 22:44 09/03/19 20:59 Tylenol PO 650 mg Q4H PRN Administration Pain MILD(1-3)/Fever >100.5/PORTER Acetaminophen 650 mg 08/26/19 13:00 09/03/19 04:11 Tylenol [place] 650 mg Q6H PRN Administration Pain, Mild (1-3) Albuterol 2.5 mg 08/20/19 09:00 Proventil IH QID PRN Wheezing Clonidine HCl 0.3 mg 09/03/19 14:00 09/03/19 19:49 Catapres-Tts Patch TD Not Given Sa JOEL Cyanocobalamin 1,000 mcg 08/20/19 10:00 09/05/19 10:18 Vitamin B-12 PO 1,000 mcg QDAY JOEL Administration Dextrose 0 ml 08/19/19 22:43 09/05/19 17:21 D50w (25gm) Syringe IV 10 ml Q30MIN PRN Administration Hypoglycemia Diphenhydramine HCl 25 mg 08/22/19 22:22 09/04/19 04:50 Benadryl IV 25 mg Q6H PRN Administration Itching Epoetin Mitch 20,000 unit 08/20/19 09:17 09/05/19 12:00 Procrit SUB-Q 20,000 unit FAN PRN Administration hemodialysis Folic Acid 1 mg 08/20/19 10:00 09/05/19 10:16 Folvite PO 1 mg QDAY JOEL Administration Haloperidol Lactate 5 mg 09/02/19 11:00 09/03/19 20:58 Haldol IM 5 mg Q6H PRN Administration Agitation Hydroxychloroquine Sulfate 200 mg 08/20/19 10:00 09/05/19 10:17 Plaquenil PO 200 mg QDAY JOEL Administration Hydroxyzine HCl 50 mg 08/20/19 10:00 09/05/19 10:15 Atarax PO 50 mg QDAY JOEL Administration Levetiracetam 750 mg/ Dextrose 107.5 mls @ 107.5 mls/hr 08/26/19 12:30 09/05/19 21:54 IV 400 mls/hr Q12HR JOEL Administration Meropenem 500 mg in 50 mls @ 50 mls/hr 09/04/19 14:00 09/05/19 14:33 Merrem/Ns 500 Mg/50 Ml IV 50 mls/hr Q24H JOEL Administration Sodium Chloride 100 mls @ 999 mls/hr 09/05/19 08:33 Nacl 0.9% IV FAN PRN Hypotension Amino Acids/Electrolytes/Dextrose 1,560 mls @ 0 mls/hr 09/05/19 20:00 09/05/19 20:26 Tpn Adult IV 09/06/19 19:59 80 mls/hr DAILY@1999 JOEL Administration Protocol As Directed Insulin Glargine 20 units 08/20/19 22:00 09/05/19 21:53 Lantus SUB-Q 20 units QHS JOEL Administration Insulin Glargine 10 units 09/02/19 11:30 09/05/19 10:14 Lantus SUB-Q 10 units QAMDIAB JOEL Administration Insulin Human Lispro 0 unit 08/20/19 11:30 09/05/19 21:55 Humalog SUB-Q Not Given ACHS [facility] Protocol Losartan Potassium 50 mg 08/20/19 10:00 09/05/19 10:16 Cozaar PO 50 mg QDAY JOEL Administration Melatonin 5 mg 08/25/19 22:00 09/05/19 21:52 Melatonin PO Not Given QHS [facility] Metoclopramide HCl 5 mg 09/01/19 13:00 09/03/19 20:58 Reglan IV 5 mg Q6H PRN Administration Nausea And Vomiting Metoprolol Tartrate 5 mg 09/01/19 18:48 09/06/19 06:04 Metoprolol IV 5 mg Q6HR PRN Administration Hypertension Morphine Sulfate 1 mg 09/02/19 11:30 09/05/19 21:56 Morphine IV 1 mg Q4H PRN Administration Pain , Severe (7-10) Mycophenolate Mofetil 500 mg 08/20/19 10:00 09/05/19 10:16 Cellcept PO 500 mg QDAY [facility] Administration Olanzapine 5 mg 09/02/19 13:00 09/05/19 21:55 Zyprexa Zydis PO Not Given BID [facility] Ondansetron HCl 4 mg 08/21/19 13:00 09/06/19 05:17 Zofran IV 4 mg Q4H PRN Administration Nausea And Vomiting Pantoprazole Sodium 40 mg 09/04/19 22:00 09/05/19 21:53 Protonix IV 40 mg BID [facility] Administration Promethazine HCl 25 mg 08/21/19 12:46 Phenergan [place] Q6H PRN Nausea And Vomiting Sevelamer Carbonate 800 mg 08/20/19 16:30 09/05/19 16:30 Renvela PO Not Given 0730,1630 [facility] Sodium Chloride 10 ml 08/20/19 10:00 09/05/19 21:55 Sodium Chloride Flush Syringe 10 Ml IV 10 ml BID JOEL Administration Sodium Chloride 10 ml 08/19/19 22:44 09/05/19 17:22 Sodium Chloride Flush Syringe 10 Ml IV 10 ml PRN PRN Administration LINE FLUSH Nutrition/Malnutrition Assess - Dietary Evaluation Nutrition/Malnutrition Findings: Nutrition Notes Start: 08/20/19 10:47 Freq: Status: Active Protocol: Document 09/05/19 13:38 LP (Rec: 09/05/19 13:45 LP [id number]) Nutrition Notes Initial or Follow up Reassessment Current Diagnosis CKD (stage V CKD),Diabetes, Hypertension Other Pertinent Diagnosis Necrotizing pancreatitis, Encephalopathy, SLE Current Diet 12hr cyclic CPN (80/140/80) Labs/Tests Reviewed Pertinent Medications Reviewed Height 5 ft 4 in Weight 72 kg [place] Body Weight (kg) 54.54 BMI 27.2 Subjective/Other Information Day [facility]. [facility] noted with N/V. Percent of energy/protein needs met: 53% kcal and 100% protein Burn Absent Trauma Absent GI Symptoms Nausea,Vomiting Minimum of two criteria No #1 Nutrition Diagnosis Inadequate oral intake Diagnosis Progress(for reassessment Continues documentation) Is patient on ventilator? No Is Patient Ambulatory and/or Out of Bed No REE-([facility]-confined to bed) 3402.016 Calculation Used for Recommendations [facility] Additional Notes Protein Needs >1.2g/kg: >86g/ day Fluid needs 1-1.5L/day Nutrition Intervention Change Diet Order: Continue CPN Nutrition Support: Continue 12hr cyclic CPN: MVI, Lipid, 11mEq K Osmolality: 1334. Kcal 1,410 Protein (gm) 100 Carbohydrates (gm) 150 Fat (gm) 50 Fluid (mL) 1,810 Fiber (gm) 0 Goal #1 Meet at least 75% of calorie and protein needs via CPN Anticipated Discharge Needs: Home cyclic CPN Follow-Up By: 09/06/19 Additional Comments Labs in AM: ROMY
--- NOTE | 2019-09-06 08:59 | Progress Note ---
Assessment and Plan 1. ESRD: On maintenance hemodialysis three times a week, TTS schedule. Patient has been refusing dialysis. Last dialyzed 09/05. 2. FEN: Hyperkalemia, improved. Metabolic acidosis, improved. Monitor lytes. 3. Anemia: Epogen with HD. S/p PRBC. 4. Seizures: On Keppra. 5. Metabolic encephalopathy. 6. Acute pancreatitis: CT abdomen showed worsening pancreatitis. Gen. Surgery recommended pancreatic drain, but pt refused. On PPN / TPN. 7. Tachycardia: Followed by Cards. 8. History of lupus: On Cellcept and Plaquenil. 9. Hyperglycemia. 10. Psychosis. 11. Deconditioning. Examination: General appearance: well-developed, appears stated age, not in distress HEENT: ATNC, BORA Neck: trachea midline Respiratory: Clear to Ascultation Heart: regular, S1S2, no murmur Gastrointestinal: soft, distended, mild tenderness over the L side, normoactive bowel sound Integumentary: no rash, warm and dry Neurologic: alert, follows some command, answers questions, confusion noted Musculoskeletal: trace LE edema Hemodialysis access: L arm AVG Subjective Date of service: 09/06/19 Principal diagnosis: pancreatitis Interval history: Patient was seen and examined at the bedside. Denies any pain. Sitter / RN at the bedside. Objective - Vital Signs Vital signs: Vital Signs - 12hr 09/05/19 09/05/19 09/05/19 21:00 21:56 22:00 Temperature Pulse Rate 122 H 122 H Pulse Rate [ From Monitor] Respiratory 28 H 22 17 Rate Blood Pressure 116/69 128/85 O2 Sat by Pulse Oximetry 09/05/19 09/05/19 09/06/19 23:00 23:44 00:00 Temperature 98.5 F Pulse Rate 128 H 134 H Pulse Rate [ 118 H From Monitor] Respiratory 31 H 38 H Rate Blood Pressure 139/88 149/87 O2 Sat by Pulse 93 Oximetry 09/06/19 09/06/19 09/06/19 00:03 01:00 02:00 Temperature Pulse Rate 132 H 120 H 129 H Pulse Rate [ From Monitor] Respiratory 32 H 29 H Rate Blood Pressure 149/87 128/83 127/82 O2 Sat by Pulse 100 94 Oximetry 09/06/19 09/06/19 09/06/19 03:00 03:53 04:00 Temperature 99.9 F H Pulse Rate 132 H 135 H Pulse Rate [ 112 H From Monitor] Respiratory 24 28 H Rate Blood Pressure 149/81 141/76 O2 Sat by Pulse 93 98 Oximetry 09/06/19 09/06/19 09/06/19 05:00 06:00 06:04 Temperature Pulse Rate 143 H 136 H 141 H Pulse Rate [ From Monitor] Respiratory 16 28 H Rate Blood Pressure 151/98 143/85 143/85 O2 Sat by Pulse 89 99 Oximetry 09/06/19 07:00 Temperature 100.7 F H Pulse Rate Pulse Rate [ From Monitor] Respiratory Rate Blood Pressure 139/78 O2 Sat by Pulse 99 Oximetry - Lab 09/07/19 05:15 09/07/19 05:15 Most recent lab results Calcium 8.4 mg/dL (8.4-10.2) 09/06/19 04:17 Phosphorus 5.30 mg/dL (2.5-4.5) H 09/04/19 04:40 Magnesium 2.00 mg/dL (1.7-2.3) 09/05/19 03:40 Medications & Allergies - Medications Allergies/Adverse Reactions: Allergies lactose Adverse Reaction (Verified 07/29/19 08:16) Unknown Home Medications: Home Medications Medication Instructions Recorded Confirmed Last Taken Type ALBUTEROL NEB's [Proventil 0.083% 2.5 mg IH QID PRN 07/26/19 08/21/19 07/25/19 History NEBS] Labetalol HCl [Labetalol 300mg TAB] 300 mg PO Q12H 07/26/19 08/21/19 07/25/19 History Mirtazapine 7.5 mg PO QDAY 07/26/19 08/21/19 07/25/19 History Pantoprazole [Protonix TAB] 40 mg PO BID 07/26/19 08/21/19 08/21/19 15:56 History Sevelamer HCl [Renagel] 800 mg PO BIDWM 07/26/19 08/21/19 07/25/19 History Acetaminophen [Acetaminophen TAB] 650 mg PO Q6H PRN tablet 08/18/19 08/21/19 Unknown Rx Cyanocobalamin (Vitamin B-12) 1,000 mcg PO QDAY #20 08/18/19 08/21/19 Unknown Rx [Vitamin B-12] Epoetin Mitch 20,000 Unit [Procrit] 20,000 unit SUB-Q FAN PRN vial 08/18/19 08/21/19 Unknown Rx Folic Acid [Folvite] 1 mg PO QDAY #30 08/18/19 08/21/19 Unknown Rx Gabapentin 300 mg PO 3XW #60 08/18/19 08/21/19 08/21/19 15:58 Rx Hydroxychloroquine [Plaquenil] 200 mg PO QDAY #30 08/18/19 08/21/19 Unknown Rx Insulin Glargine [Lantus VIAL] 20 units SUB-Q QHS #1 units 08/18/19 08/21/19 08/21/19 15:57 Rx Labetalol [Labetalol 200mg TAB] 300 mg PO BID #60 tablet 08/18/19 08/21/19 Unknown Rx Losartan [Cozaar] 50 mg PO QDAY #30 08/18/19 08/21/19 Unknown Rx Mycophenolate [Cellcept] 500 mg PO QDAY #30 08/18/19 08/21/19 08/21/19 15:56 Rx Pantoprazole [Protonix TAB] 40 mg PO BID #60 tablet 08/18/19 08/21/19 08/21/19 15:55 Rx Sevelamer Carbonate [Renvela] 800 mg PO 0730,1630 #30 tablet 08/18/19 08/21/19 08/21/19 15:56 Rx Total Parenteral Nutrition [TPN 12 ml IV DAILY@2000 ml 08/18/19 08/21/19 08/21/19 15:55 Rx Adult] hydrOXYzine HCL [Atarax] 50 mg PO QDAY #30 08/18/19 08/21/19 Unknown Rx levETIRAcetam [Keppra TAB] 500 mg PO BID #60 tablet 08/18/19 08/21/19 08/21/19 15:54 Rx oxyCODONE /ACETAMINOPHEN [Percocet 1 tab PO Q8H PRN #30 tablet 08/18/19 08/21/19 Unknown Rx 5/325 mg] predniSONE [Deltasone] 20 mg PO QDAY #30 08/18/19 08/21/19 Unknown Rx Active Medications: Generic Name Dose Route Start Last Admin Trade Name Freq PRN Reason Stop Dose Admin Acetaminophen 650 mg 08/19/19 22:44 09/03/19 20:59 Tylenol PO 650 mg Q4H PRN Administration Pain MILD(1-3)/Fever >100.5/PORTER Acetaminophen 650 mg 08/26/19 13:00 09/03/19 04:11 Tylenol [place] 650 mg Q6H PRN Administration Pain, Mild (1-3) Albuterol 2.5 mg 08/20/19 09:00 Proventil IH QID PRN Wheezing Clonidine HCl 0.3 mg 09/03/19 14:00 09/03/19 19:49 Catapres-Tts Patch TD Not Given Sa JOEL Cyanocobalamin 1,000 mcg 08/20/19 10:00 09/05/19 10:18 Vitamin B-12 PO 1,000 mcg QDAY JOEL Administration Dextrose 0 ml 08/19/19 22:43 09/05/19 17:21 D50w (25gm) Syringe IV 10 ml Q30MIN PRN Administration Hypoglycemia Diphenhydramine HCl 25 mg 08/22/19 22:22 09/04/19 04:50 Benadryl IV 25 mg Q6H PRN Administration Itching Epoetin Mitch 20,000 unit 08/20/19 09:17 09/05/19 12:00 Procrit SUB-Q 20,000 unit FAN PRN Administration hemodialysis Folic Acid 1 mg 08/20/19 10:00 09/05/19 10:16 Folvite PO 1 mg QDAY JOEL Administration Haloperidol Lactate 5 mg 09/02/19 11:00 09/03/19 20:58 Haldol IM 5 mg Q6H PRN Administration Agitation Hydroxychloroquine Sulfate 200 mg 08/20/19 10:00 09/05/19 10:17 Plaquenil PO 200 mg QDAY JOEL Administration Hydroxyzine HCl 50 mg 08/20/19 10:00 09/05/19 10:15 Atarax PO 50 mg QDAY JOEL Administration Levetiracetam 750 mg/ Dextrose 107.5 mls @ 107.5 mls/hr 08/26/19 12:30 09/05/19 21:54 IV 400 mls/hr Q12HR JOEL Administration Meropenem 500 mg in 50 mls @ 50 mls/hr 09/04/19 14:00 09/05/19 14:33 Merrem/Ns 500 Mg/50 Ml IV 50 mls/hr Q24H JOEL Administration Sodium Chloride 100 mls @ 999 mls/hr 09/05/19 08:33 Nacl 0.9% IV FAN PRN Hypotension Amino Acids/Electrolytes/Dextrose 1,560 mls @ 0 mls/hr 09/05/19 20:00 09/05/19 20:26 Tpn Adult IV 09/06/19 19:59 80 mls/hr DAILY@2000 JOEL Administration Protocol As Directed Insulin Glargine 20 units 08/20/19 22:00 09/05/19 21:53 Lantus SUB-Q 20 units QHS JOEL Administration Insulin Glargine 10 units 09/02/19 11:30 09/05/19 10:14 Lantus SUB-Q 10 units QAMDIAB JOEL Administration Insulin Human Lispro 0 unit 08/20/19 11:30 09/05/19 21:55 Humalog SUB-Q Not Given ACHS [facility] Protocol Losartan Potassium 50 mg 08/20/19 10:00 09/05/19 10:16 Cozaar PO 50 mg QDAY JOEL Administration Melatonin 5 mg 08/25/19 22:00 09/05/19 21:52 Melatonin PO Not Given QHS [facility] Metoclopramide HCl 5 mg 09/01/19 13:00 09/03/19 20:58 Reglan IV 5 mg Q6H PRN Administration Nausea And Vomiting Metoprolol Tartrate 5 mg 09/01/19 18:48 09/06/19 06:04 Metoprolol IV 5 mg Q6HR PRN Administration Hypertension Morphine Sulfate 1 mg 09/02/19 11:30 09/05/19 21:56 Morphine IV 1 mg Q4H PRN Administration Pain , Severe (7-10) Mycophenolate Mofetil 500 mg 08/20/19 10:00 09/05/19 10:16 Cellcept PO 500 mg QDAY JOEL Administration Olanzapine 5 mg 09/02/19 13:00 09/05/19 21:55 Zyprexa Zydis PO Not Given BID JOEL Ondansetron HCl 4 mg 08/21/19 13:00 09/06/19 05:17 Zofran IV 4 mg Q4H PRN Administration Nausea And Vomiting Pantoprazole Sodium 40 mg 09/04/19 22:00 09/05/19 21:53 Protonix IV 40 mg BID JOEL Administration Promethazine HCl 25 mg 08/21/19 12:46 Phenergan OR Q6H PRN Nausea And Vomiting Sevelamer Carbonate 800 mg 08/20/19 16:30 09/05/19 16:30 Renvela PO Not Given 0730,1630 JOEL Sodium Chloride 10 ml 08/20/19 10:00 09/05/19 21:55 Sodium Chloride Flush Syringe 10 Ml IV 10 ml BID JOEL Administration Sodium Chloride 10 ml 08/19/19 22:44 09/05/19 17:22 Sodium Chloride Flush Syringe 10 Ml IV 10 ml PRN PRN Administration LINE FLUSH
[2019-09-06] MEDS: levETIRAcetam 750 MG in DEXTROSE 5% IN WATER 100 ML IV SCH ×2 (10:10→22:00)
--- NOTE | 2019-09-06 10:23 | Gastroenterology Progress Note ---
<YELITZA ESTRADA - Last Filed: 09/06/19 10:25> Assessment and Plan 1.abdominal pain 2.N/V 3.necrotizing pancreatitis 4.pancreatic pseudocyst -WBC 16.0-trending down -CRP 26 -Lipase 212 -LFTs-WNL -triglyceride and hepatitis panel negative -repeat abd CT shows worsening pancreatitis with multiple developing pseudocysts (large LUQ peudocyst compressing on stomach) -etiology of pancreatitis unclear- possible autoimmune vs drug induced vs sepsis; given elevted WBC and clinical condition concerned for possibility of infected necrosis -surgery and IR following -Keep NPO and continue TPN -continue empiric abx therapy (Meropenem) -continue to trend labs and supportive care (IFV, pain control, antiemetics, etc.) -pending transfer to a tertiary care center (accepted to [place]) for further management (in case she requires debridement) 5.anemia/hematemesis -likely multifactorial -H/H 8.2/25.3 s/p blood transfusion- continue to monitor and transfuse as needed -no active signs of bleeding overnight or this am -continue PPI and supportive care -Regarding consideration of EGD, if she had active significant GI bleeding (multiple episodes hematemesis or melena and continued drop in Hgb) will pursue emergent EGD with 2 physician consent; otherwise given patient cannot provide consent will not pursue EGD unless she is in a life-threatening situation Subjective Date of service: 09/06/19 Principal diagnosis: pancreatitis Interval history: No acute distress. Has c/o continued abd pain with episode of vomiting this am with emesis bilious in color. No active signs of bleeding. Objective - Constitutional Vitals: Temp Pulse Resp BP Pulse Ox 100.7 F H 141 H 28 H 139/78 99 09/06/19 07:00 09/06/19 06:04 09/06/19 06:00 09/06/19 07:00 09/06/19 07:00 General appearance: mild distress - Respiratory Respiratory effort: normal Respiratory: bilateral: diminished - Cardiovascular Rhythm: other (tachycardia) - Gastrointestinal General gastrointestinal: Present: soft, tender, distended, normal bowel sounds - Neurologic Neurological: oriented to person, other (confused) - Labs CBC & Chem 7: 09/06/19 04:17 09/06/19 04:17 Labs: Laboratory Results - last 24 hr 08/26/19 09/05/19 09/05/19 12:33 09:21 11:35 WBC RBC Hgb Hct MCV MCH MCHC RDW Plt Count Lymph % (Auto) [place] % (Auto) Eos % (Auto) Baso % (Auto) Lymph # [place] # Eos # Baso # Seg Neutrophils % Seg Neutrophils # Sodium Potassium Chloride Carbon Dioxide Anion Gap BUN Creatinine Estimated GFR BUN/Creatinine Ratio Glucose POC Glucose 201 H Calcium Total Bilirubin AST ALT Alkaline Phosphatase Total Protein Albumin Albumin/Globulin Ratio Blood Type A POSITIVE Antibody Screen Negative Crossmatch See Detail See Detail 09/05/19 09/05/19 09/06/19 17:11 21:50 04:17 WBC 16.0 H RBC 2.94 L Hgb 8.2 L Hct 25.3 L MCV 86 MCH 28 MCHC 32 RDW 16.4 H Plt Count 253 Lymph % (Auto) 12.5 L [place] % (Auto) 10.1 H Eos % (Auto) 0.2 Baso % (Auto) 0.2 Lymph # 2.0 Kimball # 1.6 H Eos # 0.0 Baso # 0.0 Seg Neutrophils % 77.0 H Seg Neutrophils # 12.3 H Sodium Potassium Chloride Carbon Dioxide Anion Gap BUN Creatinine Estimated GFR BUN/Creatinine Ratio Glucose POC Glucose 70 84 Calcium Total Bilirubin AST ALT Alkaline Phosphatase Total Protein Albumin Albumin/Globulin Ratio Blood Type Antibody Screen Crossmatch 09/06/19 09/06/19 09/06/19 04:17 05:52 07:51 WBC RBC Hgb Hct MCV MCH MCHC RDW Plt Count Lymph % (Auto) [place] % (Auto) Eos % (Auto) Baso % (Auto) Lymph # [place] # Eos # Baso # Seg Neutrophils % Seg Neutrophils # Sodium 139 Potassium 3.5 L Chloride 94.2 L Carbon Dioxide 24 Anion Gap 24 BUN 88 H Creatinine 5.2 H Estimated GFR 12 BUN/Creatinine Ratio 17 Glucose 198 H POC Glucose 207 H 278 H Calcium 8.4 Total Bilirubin 0.50 AST 14 ALT 6 L Alkaline Phosphatase 151 H Total Protein 5.2 L Albumin 1.5 L Albumin/Globulin Ratio 0.4 Blood Type Antibody Screen Crossmatch <STEPHANIE CARTER - Last Filed: 09/06/19 21:45> Assessment and Plan Patient seen and examined. I have reviewed the advanced practitioner's evaluation, assessment, and plan, and agree with them. I note the following additions: patient is not decompensating, now with pending transfer (awaiting bed); please call back for any questions, concerns, or if there is any overt life threatening hematemesis GI will sign off for now - Patient Problems (1) Altered mental status Current Visit: Yes Status: Acute Qualifiers: Altered mental status type: unspecified Qualified Code(s): R41.82 - Altered mental status, unspecified (2) Pancreatic pseudocyst Current Visit: Yes Status: Acute (3) Anemia of chronic disease Current Visit: Yes Status: Chronic (4) Anemia Current Visit: No Status: Acute (5) Pancreatitis Current Visit: No Status: Acute Qualifiers: Chronicity: acute Acute pancreatitis complication: unspecified Objective - Constitutional Vitals: Temp Pulse Resp BP Pulse Ox 98.1 F 125 H 31 H 133/79 100 09/06/19 15:00 09/06/19 18:00 09/06/19 18:00 09/06/19 18:00 09/06/19 20:20 - Labs CBC & Chem 7: 09/06/19 04:17 09/06/19 04:17 Labs: Laboratory Results - last 24 hr 09/05/19 09/06/19 09/06/19 21:50 04:17 04:17 WBC 16.0 H RBC 2.94 L Hgb 8.2 L Hct 25.3 L MCV 86 MCH 28 MCHC 32 RDW 16.4 H Plt Count 253 Lymph % (Auto) 12.5 L [place] % (Auto) 10.1 H Eos % (Auto) 0.2 Baso % (Auto) 0.2 Lymph # 2.0 Kimball # 1.6 H Eos # 0.0 Baso # 0.0 Seg Neutrophils % 77.0 H Seg Neutrophils # 12.3 H Sodium 139 Potassium 3.5 L Chloride 94.2 L Carbon Dioxide 24 Anion Gap 24 BUN 88 H Creatinine 5.2 H Estimated GFR 12 BUN/Creatinine Ratio 17 Glucose 198 H POC Glucose 84 Calcium 8.4 Total Bilirubin 0.50 AST 14 ALT 6 L Alkaline Phosphatase 151 H Total Protein 5.2 L Albumin 1.5 L Albumin/Globulin Ratio 0.4 09/06/19 09/06/19 09/06/19 05:52 07:51 11:19 WBC RBC Hgb Hct MCV MCH MCHC RDW Plt Count Lymph % (Auto) [place] % (Auto) Eos % (Auto) Baso % (Auto) Lymph # [place] # Eos # Baso # Seg Neutrophils % Seg Neutrophils # Sodium Potassium Chloride Carbon Dioxide Anion Gap BUN Creatinine Estimated GFR BUN/Creatinine Ratio Glucose POC Glucose 207 H 278 H 149 H Calcium Total Bilirubin AST ALT Alkaline Phosphatase Total Protein Albumin Albumin/Globulin Ratio 09/06/19 09/06/19 15:59 21:33 WBC RBC Hgb Hct MCV MCH MCHC RDW Plt Count Lymph % (Auto) [place] % (Auto) Eos % (Auto) Baso % (Auto) Lymph # [place] # Eos # Baso # Seg Neutrophils % Seg Neutrophils # Sodium Potassium Chloride Carbon Dioxide Anion Gap BUN Creatinine Estimated GFR BUN/Creatinine Ratio Glucose POC Glucose 91 124 H Calcium Total Bilirubin AST ALT Alkaline Phosphatase Total Protein Albumin Albumin/Globulin Ratio
--- NOTE | 2019-09-06 13:14 | Progress Note ---
Assessment and Plan atient awake. Weak . Resting on 2 litres O2. O2 saturation running 100 to 90%.Patient is having mild shortness of breath at rest. Patient tachycardic.Heart rate 127. Denies smoking, alcohol or drug history.Patient worked in [employer] in [employer]. Patient not . Children 1. Chest xray reported cardiomegaly and pulmonary vascular congestion.. - Patient Problems (1) Pulmonary vascular congestion Current Visit: Yes Status: Acute Plan to address problem: 1. Continue O2 2 litres via nasal canula. 2. Fluid restriction. 3. Lasix if she develops more shortness of breath. (2) Diabetes mellitus with hyperosmolarity without coma, with long-term current use of insulin Current Visit: Yes Status: Acute Plan to address problem: Management as per primary care. (3) NSTEMI (non-ST elevated myocardial infarction) Current Visit: Yes Status: Acute Plan to address problem: Management as per cardiology. (4) H/O acute pancreatitis Current Visit: No Status: Acute Plan to address problem: Management as per primary care. (5) End-stage renal disease needing dialysis Current Visit: Yes Status: Chronic Plan to address problem: Management as per nephrology. (6) Acute metabolic encephalopathy Current Visit: No Status: Acute Plan to address problem: Management as per primary care. (7) Hypertension Current Visit: No Status: Chronic Plan to address problem: Management as per primary care. (8) Lupus Current Visit: No Status: Chronic Plan to address problem: Patient is on Plaquanil. Management as per primary care. (9) Seizure disorder Current Visit: No Status: Chronic Plan to address problem: Management as per neurology. Subjective Date of service: 09/06/19 Principal diagnosis: pancreatitis Interval history: Patient awake. Weak . Resting on 2 litres O2. O2 saturation running 100 to 90%.Patient is having mild shortness of breath at rest. Patient tachycardic.Heart rate 127. Denies smoking, alcohol or drug history.Patient worked in [employer] in [employer]. Patient not . Children 1. Chest xray reported cardiomegaly and pulmonary vascular congestion. Objective Vital Signs - 12hr 09/06/19 09/06/19 09/06/19 02:00 03:00 03:53 Temperature 99.9 F H Pulse Rate 129 H 132 H Pulse Rate [ From Monitor] Respiratory 29 H 24 Rate Blood Pressure 127/82 149/81 O2 Sat by Pulse 94 93 Oximetry 09/06/19 09/06/19 09/06/19 04:00 05:00 06:00 Temperature Pulse Rate 135 H 143 H 136 H Pulse Rate [ 112 H From Monitor] Respiratory 28 H 16 28 H Rate Blood Pressure 141/76 151/98 143/85 O2 Sat by Pulse 98 89 99 Oximetry 09/06/19 09/06/19 09/06/19 06:04 07:00 08:00 Temperature 100.7 F H Pulse Rate 141 H Pulse Rate [ From Monitor] Respiratory Rate Blood Pressure 143/85 139/78 126/84 O2 Sat by Pulse 99 99 Oximetry 09/06/19 09/06/19 09/06/19 09:00 10:00 11:00 Temperature 100.4 F H Pulse Rate 134 H 137 H 131 H Pulse Rate [ From Monitor] Respiratory 26 H 33 H 30 H Rate Blood Pressure 127/67 113/63 108/61 O2 Sat by Pulse 98 96 100 Oximetry 09/06/19 09/06/19 12:00 13:00 Temperature Pulse Rate 126 H 129 H Pulse Rate [ From Monitor] Respiratory 25 H 42 H Rate Blood Pressure 113/57 118/76 O2 Sat by Pulse 100 90 Oximetry Constitutional: alert, appears uncomfortable, other (Mild respiratory distress.) Eyes: non-icteric ENT: oropharynx moist Neck: supple, no lymphadenopathy Effort: mildly labored Ascultation: Bilateral: diminished breath sounds, rales (FEW rales.) Cardiovascular: other (Tachycardia, rate 127.) Gastrointestinal: normoactive bowel sounds, soft, non-tender Integumentary: normal Extremities: no cyanosis, no edema Neurologic: non-focal exam, pupils equal and round Psychiatric: depressed CBC and BMP: 09/06/19 04:17 09/06/19 04:17 ABG, PT/INR, D-dimer: ABG POC ABG pH 7.487 (7.35-7.45) H 09/04/19 18:49 POC ABG pCO2 33.3 (35-45) L 09/04/19 18:49 POC ABG pO2 120 (80-105) H 09/04/19 18:49 POC ABG HCO3 25.2 (22-26 mml/L) 09/04/19 18:49 POC ABG Total CO2 26 (23-27mmol/L) 09/04/19 18:49 POC ABG O2 Sat 99 09/04/19 18:49 Abnormal lab findings: Abnormal Labs 08/19/19 08/19/19 08/19/19 20:48 20:48 23:48 WBC 17.2 H RBC 2.50 L Hgb 6.8 L Hct 22.3 L MCH 27 L RDW 18.6 H Lymph % (Auto) [place] % (Auto) [place] # Seg Neutrophils % Seg Neuts % (Manual) Lymphocytes % (Manual) Monocytes % (Manual) Nucleated RBC % Seg Neutrophils # Seg Neutrophils # Man Lymphocytes # (Manual) Monocytes # (Manual) POC ABG pH POC ABG pCO2 POC ABG pO2 Sodium 131 L Potassium 2.8 L* D Chloride 92.9 L Carbon Dioxide BUN 64 H Creatinine 5.2 H Glucose 981 H* POC Glucose Calcium 8.2 L Phosphorus Magnesium Direct Bilirubin ALT < 5 L Alkaline Phosphatase CK-MB (CK-2) 4.8 H CK-MB (CK-2) Rel Index 8.8 H Troponin T 0.249 H* 0.288 H* C-Reactive Protein Total Protein 4.7 L Albumin 1.9 L Triglycerides 197 H LDL Cholesterol Direct 34 L HDL Cholesterol 19 L Lipase 251 H Crossmatch 08/20/19 08/20/19 08/20/19 00:06 00:09 01:40 WBC RBC Hgb Hct MCH RDW Lymph % (Auto) [place] % (Auto) [place] # Seg Neutrophils % Seg Neuts % (Manual) Lymphocytes % (Manual) Monocytes % (Manual) Nucleated RBC % Seg Neutrophils # Seg Neutrophils # Man Lymphocytes # (Manual) Monocytes # (Manual) POC ABG pH POC ABG pCO2 POC ABG pO2 Sodium Potassium 3.3 L Chloride 96.6 L Carbon Dioxide BUN 71 H Creatinine 6.0 H Glucose 180 H POC Glucose 180 H 142 H Calcium Phosphorus Magnesium Direct Bilirubin ALT Alkaline Phosphatase CK-MB (CK-2) CK-MB (CK-2) Rel Index Troponin T C-Reactive Protein Total Protein Albumin Triglycerides LDL Cholesterol Direct HDL Cholesterol Lipase Crossmatch 08/20/19 08/20/19 08/20/19 10:38 10:38 17:24 WBC RBC Hgb Hct MCH RDW Lymph % (Auto) [place] % (Auto) [place] # Seg Neutrophils % Seg Neuts % (Manual) Lymphocytes % (Manual) Monocytes % (Manual) Nucleated RBC % Seg Neutrophils # Seg Neutrophils # Man Lymphocytes # (Manual) Monocytes # (Manual) POC ABG pH POC ABG pCO2 POC ABG pO2 Sodium Potassium 2.9 L* Chloride Carbon Dioxide 17 L D BUN 64 H Creatinine 5.6 H Glucose POC Glucose 124 H Calcium 6.8 L D Phosphorus Magnesium Direct Bilirubin ALT < 5 L Alkaline Phosphatase CK-MB (CK-2) 4.5 H CK-MB (CK-2) Rel Index 10.7 H Troponin T 0.323 H* C-Reactive Protein Total Protein 4.1 L Albumin 1.4 L Triglycerides LDL Cholesterol Direct HDL Cholesterol Lipase Crossmatch 08/20/19 08/20/19 08/21/19 20:20 21:25 07:55 WBC RBC Hgb Hct MCH RDW Lymph % (Auto) [place] % (Auto) [place] # Seg Neutrophils % Seg Neuts % (Manual) Lymphocytes % (Manual) Monocytes % (Manual) Nucleated RBC % Seg Neutrophils # Seg Neutrophils # Man Lymphocytes # (Manual) Monocytes # (Manual) POC ABG pH POC ABG pCO2 POC ABG pO2 Sodium Potassium 5.2 H D Chloride 97.6 L Carbon Dioxide BUN 52 H Creatinine 5.0 H Glucose 287 H POC Glucose 161 H Calcium Phosphorus Magnesium 1.60 L Direct Bilirubin ALT Alkaline Phosphatase CK-MB (CK-2) CK-MB (CK-2) Rel Index Troponin T C-Reactive Protein Total Protein Albumin Triglycerides LDL Cholesterol Direct HDL Cholesterol Lipase Crossmatch 08/21/19 08/21/19 08/21/19 08:04 12:04 16:30 WBC RBC Hgb Hct MCH RDW Lymph % (Auto) [place] % (Auto) [place] # Seg Neutrophils % Seg Neuts % (Manual) Lymphocytes % (Manual) Monocytes % (Manual) Nucleated RBC % Seg Neutrophils # Seg Neutrophils # Man Lymphocytes # (Manual) Monocytes # (Manual) POC ABG pH POC ABG pCO2 POC ABG pO2 Sodium Potassium Chloride Carbon Dioxide BUN Creatinine Glucose POC Glucose 157 H 188 H 255 H Calcium Phosphorus Magnesium Direct Bilirubin ALT Alkaline Phosphatase CK-MB (CK-2) CK-MB (CK-2) Rel Index Troponin T C-Reactive Protein Total Protein Albumin Triglycerides LDL Cholesterol Direct HDL Cholesterol Lipase Crossmatch 08/21/19 08/22/19 08/22/19 21:17 04:00 08:20 WBC RBC Hgb Hct MCH RDW Lymph % (Auto) [place] % (Auto) [place] # Seg Neutrophils % Seg Neuts % (Manual) Lymphocytes % (Manual) Monocytes % (Manual) Nucleated RBC % Seg Neutrophils # Seg Neutrophils # Man Lymphocytes # (Manual) Monocytes # (Manual) POC ABG pH POC ABG pCO2 POC ABG pO2 Sodium Potassium Chloride 96.4 L Carbon Dioxide BUN 65 H Creatinine 6.1 H Glucose 119 H POC Glucose 251 H 148 H Calcium 8.3 L Phosphorus Magnesium Direct Bilirubin ALT Alkaline Phosphatase CK-MB (CK-2) CK-MB (CK-2) Rel Index Troponin T C-Reactive Protein Total Protein Albumin Triglycerides LDL Cholesterol Direct HDL Cholesterol Lipase Crossmatch 08/22/19 08/22/19 08/22/19 14:45 16:29 21:04 WBC RBC Hgb 7.0 L Hct 22.3 L MCH RDW Lymph % (Auto) [place] % (Auto) [place] # Seg Neutrophils % Seg Neuts % (Manual) Lymphocytes % (Manual) Monocytes % (Manual) Nucleated RBC % Seg Neutrophils # Seg Neutrophils # Man Lymphocytes # (Manual) Monocytes # (Manual) POC ABG pH POC ABG pCO2 POC ABG pO2 Sodium Potassium Chloride Carbon Dioxide BUN Creatinine Glucose POC Glucose 115 H 162 H Calcium Phosphorus Magnesium Direct Bilirubin ALT Alkaline Phosphatase CK-MB (CK-2) CK-MB (CK-2) Rel Index Troponin T C-Reactive Protein Total Protein Albumin Triglycerides LDL Cholesterol Direct HDL Cholesterol Lipase Crossmatch 08/23/19 08/24/19 08/24/19 08:00 07:42 07:42 WBC 22.8 H RBC 2.47 L Hgb 6.7 L Hct 20.5 L MCH 27 L RDW 18.1 H Lymph % (Auto) [place] % (Auto) [place] # Seg Neutrophils % Seg Neuts % (Manual) 95.0 H Lymphocytes % (Manual) 3.0 L Monocytes % (Manual) Nucleated RBC % Seg Neutrophils # Seg Neutrophils # Man 21.7 H Lymphocytes # (Manual) 0.7 L Monocytes # (Manual) POC ABG pH POC ABG pCO2 POC ABG pO2 Sodium 136 L Potassium 5.7 H D Chloride 92.2 L Carbon Dioxide 19 L BUN 107 H Creatinine 9.1 H Glucose POC Glucose 141 H Calcium Phosphorus 7.40 H Magnesium Direct Bilirubin ALT Alkaline Phosphatase CK-MB (CK-2) CK-MB (CK-2) Rel Index Troponin T C-Reactive Protein Total Protein Albumin Triglycerides LDL Cholesterol Direct HDL Cholesterol Lipase Crossmatch 08/24/19 08/24/19 08/25/19 18:53 23:32 05:00 WBC RBC Hgb Hct MCH RDW Lymph % (Auto) [place] % (Auto) [place] # Seg Neutrophils % Seg Neuts % (Manual) Lymphocytes % (Manual) Monocytes % (Manual) Nucleated RBC % Seg Neutrophils # Seg Neutrophils # Man Lymphocytes # (Manual) Monocytes # (Manual) POC ABG pH POC ABG pCO2 POC ABG pO2 Sodium Potassium Chloride 93.9 L Carbon Dioxide BUN 61 H Creatinine 5.3 H Glucose 166 H POC Glucose 169 H 139 H Calcium Phosphorus Magnesium Direct Bilirubin ALT Alkaline Phosphatase CK-MB (CK-2) CK-MB (CK-2) Rel Index Troponin T C-Reactive Protein Total Protein Albumin Triglycerides LDL Cholesterol Direct HDL Cholesterol Lipase Crossmatch 08/25/19 08/25/19 08/25/19 05:00 05:14 22:02 WBC 19.7 H RBC 2.45 L Hgb 6.6 L Hct 20.4 L MCH 27 L RDW 18.6 H Lymph % (Auto) [place] % (Auto) [place] # Seg Neutrophils % Seg Neuts % (Manual) 75.0 H Lymphocytes % (Manual) Monocytes % (Manual) Nucleated RBC % Seg Neutrophils # Seg Neutrophils # Man 14.8 H Lymphocytes # (Manual) Monocytes # (Manual) POC ABG pH POC ABG pCO2 POC ABG pO2 Sodium Potassium Chloride Carbon Dioxide BUN Creatinine Glucose POC Glucose 225 H 106 H Calcium Phosphorus Magnesium Direct Bilirubin ALT Alkaline Phosphatase CK-MB (CK-2) CK-MB (CK-2) Rel Index Troponin T C-Reactive Protein Total Protein Albumin Triglycerides LDL Cholesterol Direct HDL Cholesterol Lipase Crossmatch 08/26/19 08/26/19 08/26/19 07:39 11:31 12:33 WBC RBC Hgb Hct MCH RDW Lymph % (Auto) [place] % (Auto) [place] # Seg Neutrophils % Seg Neuts % (Manual) Lymphocytes % (Manual) Monocytes % (Manual) Nucleated RBC % Seg Neutrophils # Seg Neutrophils # Man Lymphocytes # (Manual) Monocytes # (Manual) POC ABG pH POC ABG pCO2 POC ABG pO2 Sodium Potassium Chloride Carbon Dioxide BUN Creatinine Glucose POC Glucose 212 H 110 H Calcium Phosphorus Magnesium Direct Bilirubin ALT Alkaline Phosphatase CK-MB (CK-2) CK-MB (CK-2) Rel Index Troponin T C-Reactive Protein Total Protein Albumin Triglycerides LDL Cholesterol Direct HDL Cholesterol Lipase Crossmatch See Detail 08/26/19 08/26/19 08/26/19 12:33 12:33 17:38 WBC 18.4 H RBC 2.43 L Hgb 6.3 L Hct 20.1 L MCH 26 L RDW 18.5 H Lymph % (Auto) [place] % (Auto) [place] # Seg Neutrophils % Seg Neuts % (Manual) 80.0 H Lymphocytes % (Manual) 9.0 L Monocytes % (Manual) Nucleated RBC % Seg Neutrophils # Seg Neutrophils # Man 14.7 H Lymphocytes # (Manual) Monocytes # (Manual) POC ABG pH POC ABG pCO2 POC ABG pO2 Sodium Potassium Chloride 93.4 L Carbon Dioxide BUN 95 H Creatinine 8.1 H D Glucose 119 H POC Glucose 196 H Calcium Phosphorus 5.00 H D Magnesium Direct Bilirubin ALT Alkaline Phosphatase CK-MB (CK-2) CK-MB (CK-2) Rel Index Troponin T C-Reactive Protein Total Protein Albumin Triglycerides LDL Cholesterol Direct HDL Cholesterol Lipase Crossmatch 08/26/19 08/27/19 08/27/19 22:08 07:40 07:40 WBC 14.4 H RBC 2.17 L Hgb 5.7 L* Hct 18.1 L* MCH 26 L RDW 18.6 H Lymph % (Auto) [place] % (Auto) [place] # Seg Neutrophils % Seg Neuts % (Manual) Lymphocytes % (Manual) Monocytes % (Manual) 8.0 H Nucleated RBC % Seg Neutrophils # Seg Neutrophils # Man 9.6 H Lymphocytes # (Manual) Monocytes # (Manual) 1.2 H POC ABG pH POC ABG pCO2 POC ABG pO2 Sodium 136 L Potassium Chloride 87.5 L Carbon Dioxide 20 L BUN 117 H Creatinine 9.0 H Glucose 379 H POC Glucose 252 H Calcium Phosphorus 7.10 H D Magnesium Direct Bilirubin ALT Alkaline Phosphatase CK-MB (CK-2) CK-MB (CK-2) Rel Index Troponin T C-Reactive Protein Total Protein Albumin Triglycerides LDL Cholesterol Direct HDL Cholesterol Lipase Crossmatch 08/27/19 08/27/19 08/27/19 08:13 09:02 09:42 WBC RBC Hgb Hct MCH RDW Lymph % (Auto) [place] % (Auto) [place] # Seg Neutrophils % Seg Neuts % (Manual) Lymphocytes % (Manual) Monocytes % (Manual) Nucleated RBC % Seg Neutrophils # Seg Neutrophils # Man Lymphocytes # (Manual) Monocytes # (Manual) POC ABG pH POC ABG pCO2 POC ABG pO2 Sodium Potassium Chloride Carbon Dioxide BUN Creatinine Glucose 578 H* POC Glucose > 500 H > 500 H Calcium Phosphorus Magnesium Direct Bilirubin ALT Alkaline Phosphatase CK-MB (CK-2) CK-MB (CK-2) Rel Index Troponin T C-Reactive Protein Total Protein Albumin Triglycerides LDL Cholesterol Direct HDL Cholesterol Lipase Crossmatch 08/27/19 08/28/19 08/28/19 10:14 01:05 05:25 WBC RBC Hgb Hct MCH RDW Lymph % (Auto) [place] % (Auto) [place] # Seg Neutrophils % Seg Neuts % (Manual) Lymphocytes % (Manual) Monocytes % (Manual) Nucleated RBC % Seg Neutrophils # Seg Neutrophils # Man Lymphocytes # (Manual) Monocytes # (Manual) POC ABG pH POC ABG pCO2 POC ABG pO2 Sodium Potassium 3.5 L D Chloride 93.6 L Carbon Dioxide BUN 72 H Creatinine 5.5 H Glucose 361 H POC Glucose 485 H 161 H Calcium Phosphorus Magnesium Direct Bilirubin ALT Alkaline Phosphatase CK-MB (CK-2) CK-MB (CK-2) Rel Index Troponin T C-Reactive Protein Total Protein Albumin Triglycerides LDL Cholesterol Direct HDL Cholesterol Lipase Crossmatch 08/28/19 08/28/19 08/28/19 07:40 10:44 12:30 WBC RBC 3.43 L Hgb 9.4 L D Hct 29.1 L D MCH RDW 17.0 H Lymph % (Auto) [place] % (Auto) [place] # Seg Neutrophils % Seg Neuts % (Manual) 81.0 H Lymphocytes % (Manual) Monocytes % (Manual) Nucleated RBC % Seg Neutrophils # Seg Neutrophils # Man 8.6 H Lymphocytes # (Manual) Monocytes # (Manual) POC ABG pH POC ABG pCO2 POC ABG pO2 Sodium Potassium Chloride Carbon Dioxide BUN Creatinine Glucose POC Glucose 362 H 355 H Calcium Phosphorus Magnesium Direct Bilirubin ALT Alkaline Phosphatase CK-MB (CK-2) CK-MB (CK-2) Rel Index Troponin T C-Reactive Protein Total Protein Albumin Triglycerides LDL Cholesterol Direct HDL Cholesterol Lipase Crossmatch 08/28/19 08/28/19 08/29/19 18:01 21:38 05:00 WBC 12.3 H RBC 3.29 L Hgb 8.8 L Hct 27.8 L MCH 27 L RDW 17.1 H Lymph % (Auto) [place] % (Auto) [place] # Seg Neutrophils % Seg Neuts % (Manual) 80.0 H Lymphocytes % (Manual) Monocytes % (Manual) Nucleated RBC % Seg Neutrophils # Seg Neutrophils # Man 9.8 H Lymphocytes # (Manual) Monocytes # (Manual) POC ABG pH POC ABG pCO2 POC ABG pO2 Sodium Potassium Chloride Carbon Dioxide BUN Creatinine Glucose POC Glucose 150 H 240 H Calcium Phosphorus Magnesium Direct Bilirubin ALT Alkaline Phosphatase CK-MB (CK-2) CK-MB (CK-2) Rel Index Troponin T C-Reactive Protein Total Protein Albumin Triglycerides LDL Cholesterol Direct HDL Cholesterol Lipase Crossmatch 08/29/19 08/29/19 08/29/19 05:00 07:59 13:02 WBC RBC Hgb Hct MCH RDW Lymph % (Auto) [place] % (Auto) [place] # Seg Neutrophils % Seg Neuts % (Manual) Lymphocytes % (Manual) Monocytes % (Manual) Nucleated RBC % Seg Neutrophils # Seg Neutrophils # Man Lymphocytes # (Manual) Monocytes # (Manual) POC ABG pH POC ABG pCO2 POC ABG pO2 Sodium Potassium 3.3 L Chloride 89.7 L Carbon Dioxide BUN 111 H Creatinine 6.9 H Glucose 374 H POC Glucose 373 H 59 L Calcium Phosphorus 5.90 H Magnesium Direct Bilirubin ALT 5 L Alkaline Phosphatase 173 H CK-MB (CK-2) CK-MB (CK-2) Rel Index Troponin T C-Reactive Protein Total Protein 5.5 L Albumin 2.0 L Triglycerides LDL Cholesterol Direct HDL Cholesterol Lipase Crossmatch 08/29/19 08/29/19 08/30/19 18:38 22:36 06:29 WBC RBC Hgb Hct MCH RDW Lymph % (Auto) [place] % (Auto) [place] # Seg Neutrophils % Seg Neuts % (Manual) Lymphocytes % (Manual) Monocytes % (Manual) Nucleated RBC % Seg Neutrophils # Seg Neutrophils # Man Lymphocytes # (Manual) Monocytes # (Manual) POC ABG pH POC ABG pCO2 POC ABG pO2 Sodium Potassium Chloride Carbon Dioxide BUN Creatinine Glucose POC Glucose 111 H 157 H 427 H Calcium Phosphorus Magnesium Direct Bilirubin ALT Alkaline Phosphatase CK-MB (CK-2) CK-MB (CK-2) Rel Index Troponin T C-Reactive Protein Total Protein Albumin Triglycerides LDL Cholesterol Direct HDL Cholesterol Lipase Crossmatch 08/30/19 08/30/1919 06:30 06:30 11:59 WBC 13.6 H RBC 3.22 L Hgb 8.9 L Hct 27.1 L MCH RDW 17.3 H Lymph % (Auto) [place] % (Auto) [place] # Seg Neutrophils % Seg Neuts % (Manual) 80.0 H Lymphocytes % (Manual) Monocytes % (Manual) Nucleated RBC % 2.0 H Seg Neutrophils # Seg Neutrophils # Man 10.9 H Lymphocytes # (Manual) Monocytes # (Manual) POC ABG pH POC ABG pCO2 POC ABG pO2 Sodium 136 L Potassium Chloride 86.8 L Carbon Dioxide 21 L BUN 141 H Creatinine 8.0 H Glucose 493 H POC Glucose 275 H Calcium Phosphorus 6.40 H Magnesium Direct Bilirubin ALT Alkaline Phosphatase CK-MB (CK-2) CK-MB (CK-2) Rel Index Troponin T C-Reactive Protein Total Protein Albumin Triglycerides LDL Cholesterol Direct HDL Cholesterol Lipase Crossmatch 08/30/19 08/31/19 08/31/19 21:28 05:45 05:45 WBC 11.8 H RBC 3.55 L Hgb 9.6 L Hct 30.1 L MCH 27 L RDW 17.3 H Lymph % (Auto) [place] % (Auto) 12.5 H [place] # 1.5 H Seg Neutrophils % 73.8 H Seg Neuts % (Manual) Lymphocytes % (Manual) Monocytes % (Manual) Nucleated RBC % Seg Neutrophils # 8.7 H Seg Neutrophils # Man Lymphocytes # (Manual) Monocytes # (Manual) POC ABG pH POC ABG pCO2 POC ABG pO2 Sodium 135 L Potassium Chloride 90.7 L Carbon Dioxide BUN 95 H Creatinine 5.9 H Glucose 406 H POC Glucose 183 H Calcium Phosphorus 4.90 H D Magnesium Direct Bilirubin ALT Alkaline Phosphatase CK-MB (CK-2) CK-MB (CK-2) Rel Index Troponin T C-Reactive Protein Total Protein Albumin Triglycerides LDL Cholesterol Direct HDL Cholesterol Lipase Crossmatch 08/31/19 08/31/19 08/31/19 06:16 12:18 17:03 WBC RBC Hgb Hct MCH RDW Lymph % (Auto) [place] % (Auto) [place] # Seg Neutrophils % Seg Neuts % (Manual) Lymphocytes % (Manual) Monocytes % (Manual) Nucleated RBC % Seg Neutrophils # Seg Neutrophils # Man Lymphocytes # (Manual) Monocytes # (Manual) POC ABG pH POC ABG pCO2 POC ABG pO2 Sodium Potassium Chloride Carbon Dioxide BUN Creatinine Glucose POC Glucose 407 H 199 H 118 H Calcium Phosphorus Magnesium Direct Bilirubin ALT Alkaline Phosphatase CK-MB (CK-2) CK-MB (CK-2) Rel Index Troponin T C-Reactive Protein Total Protein Albumin Triglycerides LDL Cholesterol Direct HDL Cholesterol Lipase Crossmatch 08/31/19 09/01/19 09/01/19 22:20 07:09 07:30 WBC RBC Hgb Hct MCH RDW Lymph % (Auto) [place] % (Auto) [place] # Seg Neutrophils % Seg Neuts % (Manual) Lymphocytes % (Manual) Monocytes % (Manual) Nucleated RBC % Seg Neutrophils # Seg Neutrophils # Man Lymphocytes # (Manual) Monocytes # (Manual) POC ABG pH POC ABG pCO2 POC ABG pO2 Sodium Potassium Chloride 89.2 L Carbon Dioxide BUN 125 H Creatinine 7.1 H Glucose 426 H POC Glucose 203 H 362 H Calcium Phosphorus 5.30 H Magnesium Direct Bilirubin ALT Alkaline Phosphatase CK-MB (CK-2) CK-MB (CK-2) Rel Index Troponin T C-Reactive Protein Total Protein Albumin Triglycerides LDL Cholesterol Direct HDL Cholesterol Lipase Crossmatch 09/01/19 09/01/19 09/01/19 08:35 11:27 18:42 WBC 22.8 H RBC 3.52 L Hgb 9.4 L Hct 29.5 L MCH 27 L RDW 18.3 H Lymph % (Auto) [place] % (Auto) [place] # Seg Neutrophils % Seg Neuts % (Manual) 98.0 H Lymphocytes % (Manual) 1.0 L Monocytes % (Manual) Nucleated RBC % Seg Neutrophils # Seg Neutrophils # Man 22.3 H Lymphocytes # (Manual) 0.2 L Monocytes # (Manual) POC ABG pH POC ABG pCO2 POC ABG pO2 Sodium Potassium Chloride Carbon Dioxide BUN Creatinine Glucose POC Glucose 325 H 162 H Calcium Phosphorus Magnesium Direct Bilirubin ALT Alkaline Phosphatase CK-MB (CK-2) CK-MB (CK-2) Rel Index Troponin T C-Reactive Protein Total Protein Albumin Triglycerides LDL Cholesterol Direct HDL Cholesterol Lipase Crossmatch 09/01/19 09/02/19 09/02/19 23:37 06:07 09:15 WBC 21.9 H RBC 2.60 L Hgb 7.0 L Hct 23.0 L D MCH 27 L RDW 19.1 H Lymph % (Auto) [place] % (Auto) [place] # Seg Neutrophils % Seg Neuts % (Manual) 98.0 H Lymphocytes % (Manual) 2.0 L Monocytes % (Manual) Nucleated RBC % Seg Neutrophils # Seg Neutrophils # Man 21.5 H Lymphocytes # (Manual) 0.4 L Monocytes # (Manual) POC ABG pH POC ABG pCO2 POC ABG pO2 Sodium Potassium Chloride Carbon Dioxide BUN Creatinine Glucose POC Glucose 276 H 438 H Calcium Phosphorus Magnesium Direct Bilirubin ALT Alkaline Phosphatase CK-MB (CK-2) CK-MB (CK-2) Rel Index Troponin T C-Reactive Protein Total Protein Albumin Triglycerides LDL Cholesterol Direct HDL Cholesterol Lipase Crossmatch 09/02/19 09/02/19 09/02/19 09:15 12:45 18:19 WBC RBC Hgb Hct MCH RDW Lymph % (Auto) [place] % (Auto) [place] # Seg Neutrophils % Seg Neuts % (Manual) Lymphocytes % (Manual) Monocytes % (Manual) Nucleated RBC % Seg Neutrophils # Seg Neutrophils # Man Lymphocytes # (Manual) Monocytes # (Manual) POC ABG pH POC ABG pCO2 POC ABG pO2 Sodium 131 L Potassium Chloride 84.4 L Carbon Dioxide 19 L BUN 156 H Creatinine 7.6 H Glucose 849 H* POC Glucose 362 H 148 H Calcium 8.2 L Phosphorus Magnesium 1.60 L Direct Bilirubin ALT 6 L Alkaline Phosphatase 139 H CK-MB (CK-2) CK-MB (CK-2) Rel Index Troponin T C-Reactive Protein 26.00 H Total Protein 4.9 L Albumin 1.6 L Triglycerides LDL Cholesterol Direct HDL Cholesterol Lipase 212 H Crossmatch 09/03/19 09/03/19 09/03/19 00:06 04:33 04:33 WBC 22.2 H RBC 2.71 L Hgb 7.5 L Hct 23.3 L MCH RDW 18.1 H Lymph % (Auto) [place] % (Auto) [place] # Seg Neutrophils % Seg Neuts % (Manual) 94.0 H Lymphocytes % (Manual) 4.0 L Monocytes % (Manual) Nucleated RBC % Seg Neutrophils # Seg Neutrophils # Man 20.9 H Lymphocytes # (Manual) 0.9 L Monocytes # (Manual) POC ABG pH POC ABG pCO2 POC ABG pO2 Sodium Potassium Chloride Carbon Dioxide BUN 88 H Creatinine 5.0 H Glucose 331 H POC Glucose 277 H Calcium Phosphorus Magnesium Direct Bilirubin ALT Alkaline Phosphatase CK-MB (CK-2) CK-MB (CK-2) Rel Index Troponin T C-Reactive Protein Total Protein Albumin Triglycerides LDL Cholesterol Direct HDL Cholesterol Lipase Crossmatch 09/03/19 09/03/19 09/04/19 06:12 21:26 01:09 EST WBC RBC Hgb Hct MCH RDW Lymph % (Auto) [place] % (Auto) [place] # Seg Neutrophils % Seg Neuts % (Manual) Lymphocytes % (Manual) Monocytes % (Manual) Nucleated RBC % Seg Neutrophils # Seg Neutrophils # Man Lymphocytes # (Manual) Monocytes # (Manual) POC ABG pH POC ABG pCO2 POC ABG pO2 Sodium Potassium Chloride Carbon Dioxide BUN Creatinine Glucose POC Glucose 288 H 67 L 166 H Calcium Phosphorus Magnesium Direct Bilirubin ALT Alkaline Phosphatase CK-MB (CK-2) CK-MB (CK-2) Rel Index Troponin T C-Reactive Protein Total Protein Albumin Triglycerides LDL Cholesterol Direct HDL Cholesterol Lipase Crossmatch 09/04/19 09/04/19 09/04/19 04:40 04:40 04:40 WBC 19.5 H RBC 2.49 L Hgb 6.7 L Hct 21.3 L MCH 27 L RDW 17.8 H Lymph % (Auto) 10.7 L [place] % (Auto) [place] # 1.3 H Seg Neutrophils % 82.2 H Seg Neuts % (Manual) Lymphocytes % (Manual) Monocytes % (Manual) Nucleated RBC % Seg Neutrophils # 16.0 H Seg Neutrophils # Man Lymphocytes # (Manual) Monocytes # (Manual) POC ABG pH POC ABG pCO2 POC ABG pO2 Sodium Potassium Chloride 94.4 L Carbon Dioxide BUN 112 H Creatinine 6.3 H Glucose 273 H POC Glucose Calcium Phosphorus 5.30 H Magnesium Direct Bilirubin 0.3 H ALT Alkaline Phosphatase CK-MB (CK-2) CK-MB (CK-2) Rel Index Troponin T C-Reactive Protein Total Protein 5.0 L Albumin 1.5 L Triglycerides LDL Cholesterol Direct HDL Cholesterol Lipase Crossmatch 09/04/19 09/04/19 09/04/19 06:03 07:55 14:25 WBC 20.7 H RBC 2.45 L Hgb 6.5 L Hct 20.6 L MCH 26 L RDW 17.3 H Lymph % (Auto) [place] % (Auto) [place] # Seg Neutrophils % Seg Neuts % (Manual) Lymphocytes % (Manual) Monocytes % (Manual) Nucleated RBC % Seg Neutrophils # Seg Neutrophils # Man Lymphocytes # (Manual) Monocytes # (Manual) POC ABG pH POC ABG pCO2 POC ABG pO2 Sodium Potassium Chloride Carbon Dioxide BUN Creatinine Glucose POC Glucose 309 H 287 H Calcium Phosphorus Magnesium Direct Bilirubin ALT Alkaline Phosphatase CK-MB (CK-2) CK-MB (CK-2) Rel Index Troponin T C-Reactive Protein Total Protein Albumin Triglycerides LDL Cholesterol Direct HDL Cholesterol Lipase Crossmatch 09/04/19 09/04/19 09/05/19 16:40 18:49 03:40 WBC RBC Hgb Hct MCH RDW Lymph % (Auto) [place] % (Auto) [place] # Seg Neutrophils % Seg Neuts % (Manual) Lymphocytes % (Manual) Monocytes % (Manual) Nucleated RBC % Seg Neutrophils # Seg Neutrophils # Man Lymphocytes # (Manual) Monocytes # (Manual) POC ABG pH 7.487 H POC ABG pCO2 33.3 L POC ABG pO2 120 H Sodium Potassium Chloride 92.4 L Carbon Dioxide 21 L BUN 138 H Creatinine 7.2 H Glucose 214 H POC Glucose 66 L Calcium Phosphorus Magnesium Direct Bilirubin ALT Alkaline Phosphatase CK-MB (CK-2) CK-MB (CK-2) Rel Index Troponin T C-Reactive Protein Total Protein Albumin Triglycerides LDL Cholesterol Direct HDL Cholesterol Lipase Crossmatch 09/05/19 09/05/19 09/05/19 05:20 06:10 08:18 WBC 17.9 H RBC 2.44 L Hgb 6.5 L Hct 20.5 L MCH 27 L RDW 18.1 H Lymph % (Auto) 10.0 L [place] % (Auto) [place] # 1.2 H Seg Neutrophils % 83.0 H Seg Neuts % (Manual) Lymphocytes % (Manual) Monocytes % (Manual) Nucleated RBC % Seg Neutrophils # 14.8 H Seg Neutrophils # Man Lymphocytes # (Manual) Monocytes # (Manual) POC ABG pH POC ABG pCO2 POC ABG pO2 Sodium Potassium Chloride Carbon Dioxide BUN Creatinine Glucose POC Glucose 252 H 291 H Calcium Phosphorus Magnesium Direct Bilirubin ALT Alkaline Phosphatase CK-MB (CK-2) CK-MB (CK-2) Rel Index Troponin T C-Reactive Protein Total Protein Albumin Triglycerides LDL Cholesterol Direct HDL Cholesterol Lipase Crossmatch 09/05/19 09/05/19 09/06/19 09:21 11:35 04:17 WBC 16.0 H RBC 2.94 L Hgb 8.2 L Hct 25.3 L MCH RDW 16.4 H Lymph % (Auto) 12.5 L [place] % (Auto) 10.1 H [place] # 1.6 H Seg Neutrophils % 77.0 H Seg Neuts % (Manual) Lymphocytes % (Manual) Monocytes % (Manual) Nucleated RBC % Seg Neutrophils # 12.3 H Seg Neutrophils # Man Lymphocytes # (Manual) Monocytes # (Manual) POC ABG pH POC ABG pCO2 POC ABG pO2 Sodium Potassium Chloride Carbon Dioxide BUN Creatinine Glucose POC Glucose 201 H Calcium Phosphorus Magnesium Direct Bilirubin ALT Alkaline Phosphatase CK-MB (CK-2) CK-MB (CK-2) Rel Index Troponin T C-Reactive Protein Total Protein Albumin Triglycerides LDL Cholesterol Direct HDL Cholesterol Lipase Crossmatch See Detail 09/06/19 09/06/19 09/06/19 04:17 05:52 07:51 WBC RBC Hgb Hct MCH RDW Lymph % (Auto) [place] % (Auto) [place] # Seg Neutrophils % Seg Neuts % (Manual) Lymphocytes % (Manual) Monocytes % (Manual) Nucleated RBC % Seg Neutrophils # Seg Neutrophils # Man Lymphocytes # (Manual) Monocytes # (Manual) POC ABG pH POC ABG pCO2 POC ABG pO2 Sodium Potassium 3.5 L Chloride 94.2 L Carbon Dioxide BUN 88 H Creatinine 5.2 H Glucose 198 H POC Glucose 207 H 278 H Calcium Phosphorus Magnesium Direct Bilirubin ALT 6 L Alkaline Phosphatase 151 H CK-MB (CK-2) CK-MB (CK-2) Rel Index Troponin T C-Reactive Protein Total Protein 5.2 L Albumin 1.5 L Triglycerides LDL Cholesterol Direct HDL Cholesterol Lipase Crossmatch 09/06/19 11:19 WBC RBC Hgb Hct MCH RDW Lymph % (Auto) [place] % (Auto) [place] # Seg Neutrophils % Seg Neuts % (Manual) Lymphocytes % (Manual) Monocytes % (Manual) Nucleated RBC % Seg Neutrophils # Seg Neutrophils # Man Lymphocytes # (Manual) Monocytes # (Manual) POC ABG pH POC ABG pCO2 POC ABG pO2 Sodium Potassium Chloride Carbon Dioxide BUN Creatinine Glucose POC Glucose 149 H Calcium Phosphorus Magnesium Direct Bilirubin ALT Alkaline Phosphatase CK-MB (CK-2) CK-MB (CK-2) Rel Index Troponin T C-Reactive Protein Total Protein Albumin Triglycerides LDL Cholesterol Direct HDL Cholesterol Lipase Crossmatch
--- NOTE | 2019-09-06 13:55 | Progress Note ---
Subjective - Reason for Consult Consult date: 09/06/19 Reason for consult: Psychiatry Follow-up - Chief Complaint Chief complaint: "I'm resting" 29 y.o. AA female who presented to the ER for AMS. Today the patient was calm and cooperative during the assessment. The patient was more organized and engaging. The patient denie paranoia thoughts. She is aware that she will be transferred for to [place] for higher level of care. She denies SI/HI's and AVH's. Mental Status Exam - Vital signs Last Vital Signs Temp 100.4 F H 09/06/19 11:00 Pulse 129 H 09/06/19 13:00 Resp 42 H 09/06/19 13:00 BP 118/76 09/06/19 13:00 Pulse Ox 90 09/06/19 13:00 - Exam Narrative exam: MSE: Appearance: calm, cooperative Behavior: regular eye contact Speech: regular rate and tone Mood: "okay" Affect: congruent to mood Thought Process: circumstantial Thought Content: denies SI/HI's and AVH's Motor Activity: lying in bed Cognition: A/O x 3 Insight: variable to fair Judgment: fair Assessment and Plan Impression. Delirium. The patient's mental status have improved. Today the patient was calm and cooperative during the assessment. Cr 5.2. DDx: Unspecified Personality DO Recommendation/Plan: Rescind 1013. Continue Zyprexa Zydis ODT 5 mg BID for psychosis. Place tablet on the patients's tongue for administration. Recommend no narcotics at this time. Recommend Delirium precautions below: 1. Frequently reorient patient and involve him/her in their care (simple explanations of procedures, tests, medications). 2. Lights on and shades open during daytime hours. 3. Write date and goals of care in a visible place. 4. Try to avoid unnecessary interruptions to sleep during nighttime hours. 5. Obtain glasses, hearing aids from home if patient uses these at baseline. 6. Avoid medications that may exacerbate delirium (especially narcotics, benzodiazepines, barbiturates, ambien, lunesta, and medications with excessive anticholinergic properties). The patient has Percocet (PRN) and Atarax (scheduled) in her MAR? Recommend Atarax PRN and a NSAID for pain. Dispo: The patient is pending transfer to [place] per Case Mgmt. Will staff with Dr Luis Rivera.
[2019-09-06] MEDS: hydrOXYzine HCL 25 MG TAB PO SCH (13:59)
[2019-09-06] MEDS: PANTOPRAZOLE 40 MG INJ IV SCH ×2 (14:00→22:01)
[2019-09-06] MEDS: MEROPENEM/NS 500 MG/50 ML 500 MG/50 ML BAG IV SCH (14:07)
[2019-09-06] MEDS: OLANzapine ZYDIS 5 MG TAB PO SCH ×2 (15:20→22:03)
--- NOTE | 2019-09-06 16:21 | Consultation ---
History of Present Illness - Reason for Consult Consult date: 09/06/19 - History of Present Illness 29 yo F PMhx SLE, ESRD on HD, HTN, anemia being seen in the hospital for a prolonged hospital stay (after a previous long stay and brought back to hospital after one day) for necrotizing pancreatitis. During this admission she developed recurrent severe abdominal pain, and a CT was ordered which showed worsening pancreatitis. She complains of ongoing abdominal pain as well as subjective feve rs. Her family was unable to take care of her and are unwilling to take her home. Prsently, she is awaiting a transfer to [place] for possible debridement of the enlarging pseudocysts. Now febrile to 100.7 with a leukocytosis of 16. She is currently receiving meropenem. Blood cultures are no growth thus far. Imaging personally reviewed: CTAP: Worsening pancreatitis with enlarging pseudocysts. Splenic infarctions. Review of Systems: Bold if positive, otherwise negative General: fevers, chills, rigors HEENT: visual disturbance, diplopia, eye pain Respiratory: cough, sputum, hemoptysis, shortness of breath Cardiovascular: chest pain, syncope Gastrointestinal: nausea, vomiting, diarrhea, abdominal pain Genitourinary: dysuria, hematuria, flank pain Musculoskeletal: neck pain, back pain, joint pain, edema Neurologic: headaches, seizures Hematologic: easy bruising or bleeding Endocrine: night sweats, acute weight loss Skin: rash, jaundice, redness Psychiatric: suicidal, homicidal ideation Past History Past Medical History: other (as per HPI) Past Surgical History: Other (left leg fracture, AV fistula, peripheral neuropathy) Social history: lives with family. denies: smoking, alcohol abuse Family history: hypertension Medications and Allergies Allergies Allergy/AdvReac Type Severity Reaction Status Date / Time lactose AdvReac Unknown Verified 07/29/19 08:16 Home Medications Medication Instructions Recorded Confirmed Last Taken Type ALBUTEROL NEB's [Proventil 0.083% 2.5 mg IH QID PRN 07/26/19 08/21/19 07/25/19 History NEBS] Labetalol HCl [Labetalol 300mg TAB] 300 mg PO Q12H 07/26/19 08/21/19 07/25/19 History Mirtazapine 7.5 mg PO QDAY 07/26/19 08/21/19 07/25/19 History Pantoprazole [Protonix TAB] 40 mg PO BID 07/26/19 08/21/19 08/21/19 15:56 History Sevelamer HCl [Renagel] 800 mg PO BIDWM 07/26/19 08/21/19 07/25/19 History Acetaminophen [Acetaminophen TAB] 650 mg PO Q6H PRN tablet 08/18/19 08/21/19 Unknown Rx Cyanocobalamin (Vitamin B-12) 1,000 mcg PO QDAY #20 08/18/19 08/21/19 Unknown Rx [Vitamin B-12] Epoetin Mitch 20,000 Unit [Procrit] 20,000 unit SUB-Q FAN PRN vial 08/18/19 08/21/19 Unknown Rx Folic Acid [Folvite] 1 mg PO QDAY #30 08/18/19 08/21/19 Unknown Rx Gabapentin 300 mg PO 3XW #60 08/18/19 08/21/19 08/21/19 15:58 Rx Hydroxychloroquine [Plaquenil] 200 mg PO QDAY #30 08/18/19 08/21/19 Unknown Rx Insulin Glargine [Lantus VIAL] 20 units SUB-Q QHS #1 units 08/18/19 08/21/19 08/21/19 15:57 Rx Labetalol [Labetalol 200mg TAB] 300 mg PO BID #60 tablet 08/18/19 08/21/19 Unknown Rx Losartan [Cozaar] 50 mg PO QDAY #30 08/18/19 08/21/19 Unknown Rx Mycophenolate [Cellcept] 500 mg PO QDAY #30 08/18/19 08/21/19 08/21/19 15:56 Rx Pantoprazole [Protonix TAB] 40 mg PO BID #60 tablet 08/18/19 08/21/19 08/21/19 15:55 Rx Sevelamer Carbonate [Renvela] 800 mg PO 0730,1630 #30 tablet 08/18/19 08/21/19 08/21/19 15:56 Rx Total Parenteral Nutrition [TPN 12 ml IV DAILY@2000 ml 08/18/19 08/21/19 08/21/19 15:55 Rx Adult] hydrOXYzine HCL [Atarax] 50 mg PO QDAY #30 08/18/19 08/21/19 Unknown Rx levETIRAcetam [Keppra TAB] 500 mg PO BID #60 tablet 08/18/19 08/21/19 08/21/19 15:54 Rx oxyCODONE /ACETAMINOPHEN [Percocet 1 tab PO Q8H PRN #30 tablet 08/18/19 08/21/19 Unknown Rx 5/325 mg] predniSONE [Deltasone] 20 mg PO QDAY #30 08/18/19 08/21/19 Unknown Rx Active Meds: Active Medications Acetaminophen (Tylenol) 650 mg PO Q4H PRN PRN Reason: Pain MILD(1-3)/Fever >100.5/PORTER Last Admin: 09/03/19 20:59 Dose: 650 mg Documented by: Acetaminophen (Tylenol) 650 mg [place] Q6H PRN PRN Reason: Pain, Mild (1-3) Last Admin: 09/03/19 04:11 Dose: 650 mg Documented by: Albuterol (Proventil) 2.5 mg IH QID PRN PRN Reason: Wheezing Clonidine HCl (Catapres-Tts Patch) 0.3 mg TD Sa [facility] Last Admin: 09/03/19 19:49 Dose: Not Given Documented by: Cyanocobalamin (Vitamin B-12) 1,000 mcg PO QDAY [facility] Last Admin: 09/05/19 10:18 Dose: 1,000 mcg Documented by: Dextrose (D50w (25gm) Syringe) 0 ml IV Q30MIN PRN PRN Reason: Hypoglycemia Last Admin: 09/05/19 17:21 Dose: 10 ml Documented by: Diphenhydramine HCl (Benadryl) 25 mg IV Q6H PRN PRN Reason: Itching Last Admin: 09/04/19 04:50 Dose: 25 mg Documented by: Epoetin Mitch (Procrit) 20,000 unit SUB-Q FAN PRN PRN Reason: hemodialysis Last Admin: 09/05/19 12:00 Dose: 20,000 unit Documented by: Folic Acid (Folvite) 1 mg PO QDAY [facility] Last Admin: 09/05/19 10:16 Dose: 1 mg Documented by: Haloperidol Lactate (Haldol) 5 mg IM Q6H PRN PRN Reason: Agitation Last Admin: 09/03/19 20:58 Dose: 5 mg Documented by: Hydroxychloroquine Sulfate (Plaquenil) 200 mg PO QDAY [facility] Last Admin: 09/05/19 10:17 Dose: 200 mg Documented by: Hydroxyzine HCl (Atarax) 50 mg PO QDAY [facility] Last Admin: 09/06/19 13:59 Dose: 50 mg Documented by: Levetiracetam 750 mg/ Dextrose 107.5 mls @ 107.5 mls/hr IV Q12HR [facility] Last Admin: 09/06/19 10:10 Dose: 400 mls/hr Documented by: Meropenem (Merrem/Ns 500 Mg/50 Ml) 500 mg in 50 mls @ 50 mls/hr IV Q24H [facility] Last Admin: 09/06/19 14:07 Dose: 50 mls/hr Documented by: Sodium Chloride (Nacl 0.9%) 100 mls @ 999 mls/hr IV FAN PRN PRN Reason: Hypotension Amino Acids/Electrolytes/Dextrose (Tpn Adult) 1,560 mls @ 0 mls/hr IV DAILY@1999 [facility]; Protocol Stop: 09/06/19 19:59 Last Admin: 09/05/19 20:26 Dose: 80 mls/hr Documented by: Amino Acids/Electrolytes/Dextrose (Tpn Adult) 1,560 mls @ 0 mls/hr IV DAILY@1999 [facility]; Protocol Stop: 09/07/19 08:01 Insulin [facility]us) [facility] Last Admin: 09/05/19 21:53 Dose: 20 units Documented by: Insulin Glargine (Lantus) 10 units SUB-Q QAMDIAB [facility] Last Admin: 09/05/19 10:14 Dose: 10 units Documented by: Insulin Human Lispro (Humalog) 0 unit SUB-Q ACHS [facility]; Protocol Last Admin: 09/06/19 11:30 Dose: Not Given Documented by: Losartan Potassium (Cozaar) 50 mg PO QDAY [facility] Last Admin: 09/05/19 10:16 Dose: 50 mg Documented by: Melatonin (Melatonin) 5 mg PO QHS [facility] Last Admin: 09/05/19 21:52 Dose: Not Given Documented by: Metoclopramide HCl (Reglan) 5 mg IV Q6H PRN PRN Reason: Nausea And Vomiting Last Admin: 09/03/19 20:58 Dose: 5 mg Documented by: Metoprolol Tartrate (Metoprolol) 5 mg IV Q6HR PRN PRN Reason: Hypertension Last Admin: 09/06/19 06:04 Dose: 5 mg Documented by: Morphine Sulfate (Morphine) 1 mg IV Q4H PRN PRN Reason: Pain , Severe (7-10) Last Admin: 09/05/19 21:56 Dose: 1 mg Documented by: Mycophenolate Mofetil (Cellcept) 500 mg PO QDAY [facility] Last Admin: 09/05/19 10:16 Dose: 500 mg Documented by: Olanzapine (Zyprexa Zydis) 5 mg PO BID [facility] Last Admin: 09/06/19 15:20 Dose: 5 mg Documented by: Ondansetron HCl (Zofran) 4 mg IV Q4H PRN PRN Reason: Nausea And Vomiting Last Admin: 09/06/19 13:59 Dose: 4 mg Documented by: Pantoprazole Sodium (Protonix) 40 mg IV BID [facility] Last Admin: 09/06/19 14:00 Dose: 40 mg Documented by: Promethazine HCl (Phenergan) 25 mg [place] Q6H PRN PRN Reason: Nausea And Vomiting Sevelamer Carbonate (Renvela) 800 mg PO 0730,1630 [facility] Last Admin: 09/06/19 07:30 Dose: Not Given Documented by: Sodium Chloride (Sodium Chloride Flush Syringe 10 Ml) 10 ml IV BID [facility] Last Admin: 09/06/19 14:00 Dose: 10 ml Documented by: Sodium Chloride (Sodium Chloride Flush Syringe 10 Ml) 10 ml IV PRN PRN PRN Reason: LINE FLUSH Last Admin: 09/05/19 17:22 Dose: 10 ml Documented by: Physical Examination - Physical Exam Narrative exam: Constitutional: Alert, cooperative. No acute distress Head, Ears, Nose: Normocephalic, atraumatic. External ears, nose normal Eyes: Conjunctivae/corneas clear. No icterus. No ptosis. Neck: Supple, no meningeal signs Oral: dentition fair, no thrush Cardiovascular: S1, S2 normal. Respiratory: Good air entry, clear to auscultation bilaterally GI: Soft, non-tender; bowel sounds normal. No peritoneal signs. Musculoskeletal: No pedal edema, no cyanosis. Skin: No rash or abscess Hem/Lymphatic: No palpable cervical or supraclavicular nodes. No lymphangitis Psych: Mood ok. Affect normal Neurological: Awake, alert, oriented. No gross abnormality - Constitutional Vitals: Vital Signs Temp Pulse Resp BP Pulse Ox 100.4 F H 129 H 42 H 118/76 90 09/06/19 11:00 09/06/19 13:00 09/06/19 13:00 09/06/19 13:00 09/06/19 13:00 Temperature -Last 24 Hours Temperature 100.4 F Temperature 100.7 F Temperature 99.9 F Temperature 98.5 F Temperature 99.3 F Results - Labs CBC & Chem 7: 09/06/19 04:17 09/06/19 04:17 Labs: Abnormal lab results 09/06/19 09/06/19 09/06/19 Range/Units 04:17 04:17 05:52 WBC 16.0 H (4.5-11.0) K/mm3 RBC 2.94 L (3.65-5.03) M/mm3 Hgb 8.2 L (10.1-14.3) gm/dl Hct 25.3 L (30.3-42.9) % RDW 16.4 H (13.2-15.2) % Lymph % (Auto) 12.5 L (13.4-35.0) % [place] % (Auto) 10.1 H (0.0-7.3) % [place] # 1.6 H (0.0-0.8) K/mm3 Seg Neutrophils % 77.0 H (40.0-70.0) % Seg Neutrophils # 12.3 H (1.8-7.7) K/mm3 Potassium 3.5 L (3.6-5.0) mmol/L Chloride 94.2 L (98-107) mmol/L BUN 88 H (7-17) mg/dL Creatinine 5.2 H (0.7-1.2) mg/dL Glucose 198 H (65-100) mg/dL POC Glucose 207 H (70-105) ALT 6 L (7-56) units/L Alkaline Phosphatase 151 H (35-129) units/L Total Protein 5.2 L (6.3-8.2) g/dL Albumin 1.5 L (3.9-5) g/dL 09/06/19 09/06/19 Range/Units 07:51 11:19 WBC (4.5-11.0) K/mm3 RBC (3.65-5.03) M/mm3 Hgb (10.1-14.3) gm/dl Hct (30.3-42.9) % RDW (13.2-15.2) % Lymph % (Auto) (13.4-35.0) % [place] % (Auto) (0.0-7.3) % [place] # (0.0-0.8) K/mm3 Seg Neutrophils % (40.0-70.0) % Seg Neutrophils # (1.8-7.7) K/mm3 Potassium (3.6-5.0) mmol/L Chloride (98-107) mmol/L BUN (7-17) mg/dL Creatinine (0.7-1.2) mg/dL Glucose (65-100) mg/dL POC Glucose 278 H 149 H (70-105) ALT (7-56) units/L Alkaline Phosphatase (35-129) units/L Total Protein (6.3-8.2) g/dL Albumin (3.9-5) g/dL Assessment and Plan Cultures: (from this admission) 09/03/19 blood culture - NGTD A/P: 29 yo F PMhx SLE, ESRD on HD, HTN, anemia admitted with placement issues and developed worsening necrotizing pancreatitis 1. Acute sepsis - present with fevers and leukocytosis, secondary to pancreatitis 2. Necrotizing pancreatitis with pseudocysts - Continue meropenem for now, pending transfer to [place]. 3. ESRD on HD - renally dose antibiotics as appropriate Recs: -continue meropenem 500mg q24h - follow up blood cultures Thank you for the consult, we will continue to follow. Almas Merino MD [facility], [facility] ([facility] M: [phone] O: [phone] F: [phone]
[2019-09-06] MEDS: MYCOPHENOLATE 500 MG TAB PO SCH (18:04)
[2019-09-06] MEDS: HYDROXYCHLOROQUINE 200 MG TAB PO SCH (18:05)
[2019-09-06] MEDS: CYANOCOBALAMIN (VIT B-12) 1000 MCG TAB PO SCH (18:05)
[2019-09-06] MEDS: FOLIC ACID 1 MG TAB PO SCH (18:05)
[2019-09-06] MEDS: LOSARTAN 50 MG TAB PO SCH (18:05)
[2019-09-06] MEDS ORDERED: TOTAL PARENTERAL NUTRITION 1,560 ML IV SCH (20:00)
[2019-09-06] MEDS: INSULIN GLARGINE 100 UNITS/ML SUB-Q SCH (22:01)
[2019-09-06] MEDS: MELATONIN 5 MG TAB PO SCH (22:05)
[2019-09-06] MEDS: MORPHINE 2 MG/1 ML INJ IV PRN (22:55)
[2019-09-07] MEDS: METOPROLOL TARTRATE 5 MG/5 ML INJ IV PRN ×3 (00:33→22:23)
[2019-09-07] MEDS: MORPHINE 2 MG/1 ML INJ IV PRN ×3 (02:59→22:25)
[2019-09-07] MEDS: METOCLOPRAMIDE 10 MG/2 ML INJ IV PRN ×2 (04:39→22:22)
[2019-09-07] MEDS ORDERED: MORPHINE 2 MG/1 ML INJ IV ONE (05:21)
[2019-09-07 05:55] LABS: Basophils % (Auto) 0.1 % (0.0-1.8); Eosinophils % (Auto) 0.3 % (0.0-4.3); Hematocrit 24.5 % (30.3-42.9); Lymphocytes # (Auto) 2.4 K/mm3 (1.2-5.4); Lymphocytes % (Auto) 16.3 % (13.4-35.0); Mean Corpuscular HGB Conc 33 % (30-34); Mean Corpuscular Volume 85 fl (79-97); Monocytes # (Auto) 1.9 K/mm3 (0.0-0.8); Monocytes % (Auto) 12.7 % (0.0-7.3); Platelet Count 289 K/mm3 (140-440); Red Blood Count 2.88 M/mm3 (3.65-5.03); Red Cell Distribution Width 17.4 % (13.2-15.2)
[2019-09-07 06:11] LABS: Calcium 8.6 mg/dL (8.4-10.2)
[2019-09-07] MEDS: SEVELAMER CARBONATE 800 MG TAB PO SCH ×3 (08:00→17:08)
[2019-09-07] MEDS: INSULIN GLARGINE 100 UNITS/ML SUB-Q SCH (08:44)
[2019-09-07] MEDS: ALBUTEROL 2.5 MG/3 ML NEBU IH PRN ×2 (09:17→18:25)
[2019-09-07] MEDS: ONDANSETRON 4 MG/2 ML INJ IV PRN (10:11)
[2019-09-07] MEDS: FOLIC ACID 1 MG TAB PO SCH (10:12)
[2019-09-07] MEDS: PANTOPRAZOLE 40 MG INJ IV SCH ×2 (10:12→22:22)
[2019-09-07] MEDS: hydrOXYzine HCL 25 MG TAB PO SCH (10:12)
[2019-09-07] MEDS: OLANzapine ZYDIS 5 MG TAB PO SCH ×4 (10:13→23:14)
[2019-09-07] MEDS: LOSARTAN 50 MG TAB PO SCH (10:14)
[2019-09-07] MEDS: HYDROXYCHLOROQUINE 200 MG TAB PO SCH (10:15)
[2019-09-07] MEDS: MYCOPHENOLATE 500 MG TAB PO SCH ×2 (10:15→10:30)
[2019-09-07] MEDS: CYANOCOBALAMIN (VIT B-12) 1000 MCG TAB PO SCH (10:15)
[2019-09-07] MEDS: levETIRAcetam 750 MG in DEXTROSE 5% IN WATER 100 ML IV SCH ×2 (10:22→23:19)
--- NOTE | 2019-09-07 10:22 | Progress Note ---
Assessment and Plan Assessment and plan: 29-year-old woman with lupus, end-stage renal disease, hypertension, anemia who was discharged from the hospital after being treated for necrotizing pancreatitis, sepsis and right labial abscess. Patient was discharged home with TPN with home health care but Family was unable to care for her and then b rought her back to the hospital on next day of her discharge. She is wheelchair-bound. Had intermittent seizures because of noncompliance. 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 Has severe anemia and s/p 2 units PRBC transfusion. Continue to have Ps ychosis with delusions,Psych evaluated.Family not willing to take her back, difficult placement. Patient developed severe abd pain CT A/P 08/31/19 worsening pancreatitis. multiple pseudocysts, Evaluated by general surgeon and GI. Plan to transfer to [facility] for higher level of care -possible surgical intervention for enlarged pseudocyst. Transfer to [place] initiated by Surgery,accepted,beds were not available ,awaiting call back from [place] with bed availability. --Sinus tachycardia; due to underlying disease process Treat Underlying cause, supportive care --Multiple Pseudocysts: N.p.o., IV fluids Supportive care, patient refused NG tube Continue TPN, surg following Rec transf to [facility] for GI/hepatobiliary GI evaluation --Necrotizing pancreatitis: TPN, IV fluids, supportive care --Acute hypoxic respiratory failure Due to volume overload ,worsening necrotizing pancreatitis Oxygen titrate O2 sats to more than 90%, supportive care --Sirs vs sepsis? with tachycardia, elevated white count likely from worsening necrotizing pancreatitis - infected? NPO, IV hydration with TPN, meropenem --Accerelated HTN with tachycardia Continue current antihypertensives and as needed medications --Severe Anemia of chronic disease;Hb 5.7 - 9.4 s/p 3 unit of PRBC transfusion during dialysis, Procrit. --Delusions: Psych following Her family has reported that she has been having delusions and she has been paranoid and cannot take care of her and requested placement Psych following continue current management --Acute metabolic encephalopathy MRI, MRA brain negative, lupus encephalopathy ruled out --Severe malnutrition, Continue TPN, dietary following --End-stage renal disease, Continue dialysis --H/O SLE: Continue mycophenolate and Plaquenil, steroid IV --Non-ST elevation WI Type 2. due to end-stage renal disease Cardiology evaluated continue current management --Diabetes type 2, uncontrolled Accu-Chek sliding scale coverage and insulin long acting --DVT prophylaxis SCD --Chronic debility; PT, [facility] Patient is critically ill with very poor prognosis. Patient is awaiting transfer to [facility]. Waiting for callback from [place] with bed assignment Critical care time 31 minutes History Interval history: Patient seen and examined this morning , patient's chart reviewed Complaints of abdominal pain, nausea and vomiting Alert,awake, oriented x3 Mild distress Critically ill looking Vital signs reviewed Hospitalist Physical - Constitutional Vitals: Temp Pulse Resp BP Pulse Ox 99.7 F H 140 H 26 H 98/41 96 09/07/19 08:00 09/07/19 08:00 09/07/19 08:00 09/07/19 08:00 09/07/19 09:28 General appearance: Present: mild distress, cachectic, disheveled - EENT Eyes: Present: PERRL, EOM intact - Neck Neck: Present: supple, normal ROM - Respiratory Respiratory effort: normal Respiratory: bilateral: diminished, rales, negative: rhonchi, wheezing, other - Cardiovascular Rhythm: regular Heart Sounds: Present: S1 & S2 (sinus tachycardia) - Extremities Extremities: no ischemia, No edema, abnormal (chronic skin changes) - Abdominal General gastrointestinal: soft, tender, distended (mild), normal bowel sounds - Integumentary Integumentary: Present: clear, warm - Psychiatric Psychiatric: appropriate mood/affect, cooperative - Neurologic Neurologic: moves all extremities Results - Labs CBC & Chem 7: 09/07/19 05:15 09/07/19 05:15 Labs: Laboratory Last Values WBC 14.7 K/mm3 (4.5-11.0) H 09/07/19 05:15 RBC 2.88 M/mm3 (3.65-5.03) L 09/07/19 05:15 Hgb 8.0 gm/dl (10.1-14.3) L 09/07/19 05:15 Hct 24.5 % (30.3-42.9) L 09/07/19 05:15 MCV 85 fl (79-97) 09/07/19 05:15 MCH 28 pg (28-32) 09/07/19 05:15 MCHC 33 % (30-34) 09/07/19 05:15 RDW 17.4 % (13.2-15.2) H 09/07/19 05:15 Plt Count 289 K/mm3 (140-440) 09/07/19 05:15 Lymph % (Auto) 16.3 % (13.4-35.0) 09/07/19 05:15 [place] % (Auto) 12.7 % (0.0-7.3) H 09/07/19 05:15 Eos % (Auto) 0.3 % (0.0-4.3) 09/07/19 05:15 Baso % (Auto) 0.1 % (0.0-1.8) 09/07/19 05:15 Lymph # 2.4 K/mm3 (1.2-5.4) 09/07/19 05:15 [place] # 1.9 K/mm3 (0.0-0.8) H 09/07/19 05:15 Eos # 0.0 K/mm3 (0.0-0.4) 09/07/19 05:15 Baso # 0.0 K/mm3 (0.0-0.1) 09/07/19 05:15 Add Manual Diff Complete 09/03/19 04:33 Total Counted 100 09/03/19 04:33 Seg Neutrophils % 70.6 % (40.0-70.0) H 09/07/19 05:15 Seg Neuts % (Manual) 94.0 % (40.0-70.0) H 09/03/19 04:33 Band Neutrophils % 0 % 09/03/19 04:33 Lymphocytes % (Manual) 4.0 % (13.4-35.0) L 09/03/19 04:33 Reactive Lymphs % (Man) 0 % 09/03/19 04:33 Monocytes % (Manual) 1.0 % (0.0-7.3) 09/03/19 04:33 Eosinophils % (Manual) 0 % (0.0-4.3) 09/03/19 04:33 Basophils % (Manual) 0 % (0.0-1.8) 09/03/19 04:33 Metamyelocytes % 1.0 % 09/03/19 04:33 Myelocytes % 0 % 09/03/19 04:33 Promyelocytes % 0 % 09/03/19 04:33 Blast Cells % 0 % 09/03/19 04:33 Nucleated RBC % Not Reportable 09/03/19 04:33 Seg Neutrophils # 10.4 K/mm3 (1.8-7.7) H 09/07/19 05:15 Seg Neutrophils # Man 20.9 K/mm3 (1.8-7.7) H 09/03/19 04:33 Band Neutrophils # 0.0 K/mm3 09/03/19 04:33 Lymphocytes # (Manual) 0.9 K/mm3 (1.2-5.4) L 09/03/19 04:33 Abs React Lymphs (Man) 0.0 K/mm3 09/03/19 04:33 Monocytes # (Manual) 0.2 K/mm3 (0.0-0.8) 09/03/19 04:33 Eosinophils # (Manual) 0.0 K/mm3 (0.0-0.4) 09/03/19 04:33 Basophils # (Manual) 0.0 K/mm3 (0.0-0.1) 09/03/19 04:33 Metamyelocytes # 0.2 K/mm3 09/03/19 04:33 Myelocytes # 0.0 K/mm3 09/03/19 04:33 Promyelocytes # 0.0 K/mm3 09/03/19 04:33 Blast Cells # 0.0 K/mm3 09/03/19 04:33 WBC Morphology Not Reportable 09/03/19 04:33 Hypersegmented Neuts Not Reportable 09/03/19 04:33 Hyposegmented Neuts Not Reportable 09/03/19 04:33 Hypogranular Neuts Not Reportable 09/03/19 04:33 Smudge Cells Not Reportable 09/03/19 04:33 Toxic Granulation Not Reportable 09/03/19 04:33 Toxic Vacuolation Not Reportable 09/03/19 04:33 Dohle Bodies Not Reportable 09/03/19 04:33 Pelger-Huet Anomaly Not Reportable 09/03/19 04:33 Rose Rods Not Reportable 09/03/19 04:33 Platelet Estimate Consistent w auto 09/03/19 04:33 Clumped Platelets Not Reportable 09/03/19 04:33 Plt Clumps, EDTA Not Reportable 09/03/19 04:33 Large Platelets Not Reportable 09/03/19 04:33 Giant Platelets Not Reportable 09/03/19 04:33 Platelet Satelliting Not Reportable 09/03/19 04:33 Plt Morphology Comment Not Reportable 09/03/19 04:33 RBC Morphology Not Reportable 09/03/19 04:33 Dimorphic RBCs Not Reportable 09/03/19 04:33 Polychromasia Not Reportable 09/03/19 04:33 Hypochromasia Not Reportable 09/03/19 04:33 Poikilocytosis 1+ 09/03/19 04:33 Anisocytosis 1+ 09/03/19 04:33 Microcytosis Few 09/03/19 04:33 Macrocytosis Rare 09/03/19 04:33 Spherocytes Not Reportable 09/03/19 04:33 Pappenheimer Bodies Not Reportable 09/03/19 04:33 Sickle Cells Not Reportable 09/03/19 04:33 Target Cells Not Reportable 09/03/19 04:33 Tear Drop Cells Rare 09/03/19 04:33 Ovalocytes Not Reportable 09/03/19 04:33 Helmet Cells Not Reportable 09/03/19 04:33 Benavidez-Rutherford Bodies Not Reportable 09/03/19 04:33 Salix Rings Not Reportable 09/03/19 04:33 [place] Cells Not Reportable 09/03/19 04:33 Bite Cells Not Reportable 09/03/19 04:33 Crenated Cell Not Reportable 09/03/19 04:33 Elliptocytes Few 09/03/19 04:33 Acanthocytes (Spur) Not Reportable 09/03/19 04:33 Rouleaux Not Reportable 09/03/19 04:33 Hemoglobin C Crystals Not Reportable 09/03/19 04:33 Schistocytes Not Reportable 09/03/19 04:33 Malaria parasites Not Reportable 09/03/19 04:33 Dinesh Bodies Not Reportable 09/03/19 04:33 Hem Pathologist Commnt No 09/03/19 04:33 POC ABG pH 7.487 (7.35-7.45) H 09/04/19 18:49 POC ABG pCO2 33.3 (35-45) L 09/04/19 18:49 POC ABG pO2 120 (80-105) H 09/04/19 18:49 POC ABG HCO3 25.2 (22-26 mml/L) 09/04/19 18:49 POC ABG Total CO2 26 (23-27mmol/L) 09/04/19 18:49 POC ABG O2 Sat 99 09/04/19 18:49 POC ABG Base Excess 2 ((-2) - (+3)mmol/L) 09/04/19 18:49 FiO2 24 % 09/04/19 18:49 Sodium 138 mmol/L (137-145) 09/07/19 05:15 Potassium 3.9 mmol/L (3.6-5.0) 09/07/19 05:15 Chloride 91.5 mmol/L (98-107) L 09/07/19 05:15 Carbon Dioxide 21 mmol/L (22-30) L 09/07/19 05:15 Anion Gap 29 mmol/L 09/07/19 05:15 BUN 119 mg/dL (7-17) H 09/07/19 05:15 Creatinine 6.4 mg/dL (0.7-1.2) H 09/07/19 05:15 Estimated GFR 9 ml/min 09/07/19 05:15 BUN/Creatinine Ratio 19 % 09/07/19 05:15 Glucose 185 mg/dL (65-100) H 09/07/19 05:15 POC Glucose 111 (70-105) H 09/07/19 07:32 Calcium 8.6 mg/dL (8.4-10.2) 09/07/19 05:15 Phosphorus 5.30 mg/dL (2.5-4.5) H 09/04/19 04:40 Magnesium 2.00 mg/dL (1.7-2.3) 09/05/19 03:40 Total Bilirubin 0.50 mg/dL (0.1-1.2) 09/06/19 04:17 Direct Bilirubin 0.3 mg/dL (0-0.2) H 09/04/19 04:40 Indirect Bilirubin 0.1 mg/dL 09/04/19 04:40 AST 14 units/L (5-40) 09/06/19 04:17 ALT 6 units/L (7-56) L 09/06/19 04:17 Alkaline Phosphatase 151 units/L (35-129) H 09/06/19 04:17 Total Creatine Kinase 42 units/L (30-135) 08/20/19 10:38 CK-MB (CK-2) 4.5 ng/mL (0.0-4.0) H 08/20/19 10:38 CK-MB (CK-2) Rel Index 10.7 (0-4) H 08/20/19 10:38 Troponin T 0.323 ng/mL (0.00-0.029) H* 08/20/19 10:38 C-Reactive Protein 26.00 mg/dL (0.00-1.30) H 09/02/19 09:15 Total Protein 5.2 g/dL (6.3-8.2) L 09/06/19 04:17 Albumin 1.5 g/dL (3.9-5) L 09/06/19 04:17 Albumin/Globulin Ratio 0.4 % 09/06/19 04:17 Triglycerides 132 mg/dL (2-149) 08/26/19 12:33 Cholesterol 83 mg/dL (50-199) 08/19/19 20:48 LDL Cholesterol Direct 34 mg/dL (50-130) L 08/19/19 20:48 HDL Cholesterol 19 mg/dL (40-59) L 08/19/19 20:48 Cholesterol/HDL Ratio 4.36 % 08/19/19 20:48 Lipase 212 units/L (13-60) H 09/02/19 09:15 Hepatitis A IgM Ab Non-reactive (NonReactive) 08/22/19 22:30 Hep Bs Antigen Non-reactive (Negative) 08/22/19 22:30 Hep B Core IgM Ab Non-reactive (NonReactive) 08/22/19 22:30 Hepatitis C Antibody Non-reactive (NonReactive) 08/22/19 22:30 Blood Type A POSITIVE 09/05/19 09: Antibody Screen Negative 09/05/19 09:21 Crossmatch See Detail 09/05/19 09:21 Active Medications - Current Medications Current Medications: Generic Name Dose Route Start Last Admin Trade Name Freq PRN Reason Stop Dose Admin Acetaminophen 650 mg 08/19/19 22:44 09/03/19 20:59 Tylenol PO 650 mg Q4H PRN Administration Pain MILD(1-3)/Fever >100.5/PORTER Acetaminophen 650 mg 08/26/19 13:00 09/03/19 04:11 Tylenol [place] 650 mg Q6H PRN Administration Pain, Mild (1-3) Albuterol 2.5 mg 08/20/19 09:00 09/07/19 09:17 Proventil IH 2.5 mg QID PRN Administration Wheezing Clonidine HCl 0.3 mg 09/03/19 14:00 09/03/19 19:49 Catapres-Tts Patch TD Not Given Sa JOEL Cyanocobalamin 1,000 mcg 08/20/19 10:00 09/06/19 18:05 Vitamin B-12 PO Not Given QDAY [facility] Dextrose 0 ml 08/19/19 22:43 09/05/19 17:21 D50w (25gm) Syringe IV 10 ml Q30MIN PRN Administration Hypoglycemia Diphenhydramine HCl 25 mg 08/22/19 22:22 09/04/19 04:50 Benadryl IV 25 mg Q6H PRN Administration Itching Epoetin Mitch 20,000 unit 08/20/19 09:17 09/05/19 12:00 Procrit SUB-Q 20,000 unit FAN PRN Administration hemodialysis Folic Acid 1 mg 08/20/19 10:00 09/06/19 18:05 Folvite PO Not Given QDAY JOEL Haloperidol Lactate 5 mg 09/02/19 11:00 09/03/19 20:58 Haldol IM 5 mg Q6H PRN Administration Agitation Hydroxychloroquine Sulfate 200 mg 08/20/19 10:00 09/06/19 18:05 Plaquenil PO Not Given QDAY JOEL Hydroxyzine HCl 50 mg 08/20/19 10:00 09/06/19 13:59 Atarax PO 50 mg QDAY JOEL Administration Levetiracetam 750 mg/ Dextrose 107.5 mls @ 107.5 mls/hr 08/26/19 12:30 09/06/19 22:00 IV 400 mls/hr Q12HR JOEL Administration Meropenem 500 mg in 50 mls @ 50 mls/hr 09/04/19 14:00 09/06/19 14:07 Merrem/Ns 500 Mg/50 Ml IV 50 mls/hr Q24H JOEL Administration Sodium Chloride 100 mls @ 999 mls/hr 09/05/19 08:33 Nacl 0.9% IV FAN PRN Hypotension Insulin Glargine 20 units 08/20/19 22:00 09/06/19 22:01 Lantus SUB-Q 20 units QHS JOEL Administration Insulin Glargine 10 units 09/02/19 11:30 09/07/19 08:44 Lantus SUB-Q 10 units QAMDIAB JOEL Administration Insulin Human Lispro 0 unit 09/07/19 12:00 Humalog SUB-Q Q6HR [facility] Protocol Losartan Potassium 50 mg 08/20/19 10:00 09/06/19 18:05 Cozaar PO Not Given QDAY [facility] Melatonin 5 mg 08/25/19 22:00 09/06/19 22:05 Melatonin PO Not Given QHS [facility] Metoclopramide HCl 5 mg 09/01/19 13:00 09/07/19 04:39 Reglan IV 5 mg Q6H PRN Administration Nausea And Vomiting Metoprolol Tartrate 5 mg 09/01/19 18:48 09/07/19 00:33 Metoprolol IV 5 mg Q6HR PRN Administration Hypertension Morphine Sulfate 1 mg 09/02/19 11:30 09/07/19 02:59 Morphine IV 1 mg Q4H PRN Administration Pain , Severe (7-10) Mycophenolate Mofetil 500 mg 08/20/19 10:00 09/06/19 18:04 Cellcept PO Not Given QDAY [facility] Olanzapine 5 mg 09/02/19 13:00 09/06/19 22:03 Zyprexa Zydis PO 5 mg BID JOEL Administration Ondansetron HCl 4 mg 08/21/19 13:00 09/06/19 13:59 Zofran IV 4 mg Q4H PRN Administration Nausea And Vomiting Pantoprazole Sodium 40 mg 09/04/19 22:00 09/06/19 22:01 Protonix IV 40 mg BID JOEL Administration Promethazine HCl 25 mg 08/21/19 12:46 Phenergan IA Q6H PRN Nausea And Vomiting Sevelamer Carbonate 800 mg 08/20/19 16:30 09/07/19 08:42 Renvela PO 800 mg 0730,1630 JOEL Administration Sodium Chloride 10 ml 08/20/19 10:00 09/06/19 22:02 Sodium Chloride Flush Syringe 10 Ml IV 10 ml BID JOEL Administration Sodium Chloride 10 ml 08/19/19 22:44 09/05/19 17:22 Sodium Chloride Flush Syringe 10 Ml IV 10 ml PRN PRN Administration LINE FLUSH Nutrition/Malnutrition Assess - Dietary Evaluation Nutrition/Malnutrition Findings: Nutrition Notes Start: 08/20/19 10:47 Freq: Status: Active Protocol: Document 09/07/19 09:25 RS (Rec: 09/07/19 09:40 RS [email or web address]) Co-Sign 09/07/19 09:25 LP Nutrition Notes Initial or Follow up Reassessment Current Diagnosis CKD (stage V CKD),Diabetes, Hypertension Other Pertinent Diagnosis Necrotizing pancreatitis, Encephalopathy, SLE Current Diet 12hr cyclic CPN (80/140/80) Labs/Tests Reviewed Pertinent Medications Reviewed Height 5 ft 4 in Weight 72 kg [place] Body Weight (kg) 54.54 BMI 27.2 Subjective/Other Information CPN. Per RN report pt consumed half a turkey sandiwch last PM. No reports of N/V/D last PM but pt reports nausea this AM. Will continue to monitor. Percent of energy/protein needs met: 53% kcal and 100% PRO Burn Absent Trauma Absent GI Symptoms Nausea Minimum of two criteria No #1 Nutrition Diagnosis Inadequate oral intake Diagnosis Progress(for reassessment Continues documentation) Is patient on ventilator? No Is Patient Ambulatory and/or Out of Bed No REE-([facility]-confined to bed) [phone] Calculation Used for Recommendations [facility] Additional Notes Protein Needs >1.2g/kg: >86g/ day Fluid needs 1-1.5L/day Nutrition Intervention Change Diet Order: Continue CPN Nutrition Support: Continue 12hr cyclic CPN: MVI, Lipid, Osmolality: 1198. Kcal 1,240 Protein (gm) 100 Carbohydrates (gm) 150 Fat (gm) 50 Fluid (mL) 1,810 Fiber (gm) 0 Goal #1 Meet at least 75% of calorie and protein needs via CPN Anticipated Discharge Needs: Home cyclic CPN Follow-Up By: 09/08/19 Additional Comments Labs in AM: BMP
[2019-09-07] MEDS: diphenhydrAMINE 50 MG/ML VIAL IV PRN ×2 (10:35→22:23)
--- NOTE | 2019-09-07 11:37 | Progress Note ---
Assessment and Plan 1. ESRD: On maintenance hemodialysis three times a week, TTS schedule. Patient has been refusing dialysis. Last dialyzed 09/05. Hold hemodialysis today due to tachycardia. 2. FEN: Hyperkalemia, improved. Metabolic acidosis, improved. Monitor lytes. 3. Anemia: Epogen with HD. S/p PRBC. 4. Seizures: On Keppra. 5. Metabolic encephalopathy. 6. Acute pancreatitis: CT abdomen showed worsening pancreatitis. Gen. Surgery recommended pancreatic drain, but pt refused. On PPN / TPN. 7. Tachycardia: Followed by Cards. 8. History of lupus: On Cellcept and Plaquenil. 9. Hyperglycemia. 10. Psychosis. 11. Deconditioning. Examination: General appearance: well-developed, appears stated age, not in distress HEENT: ATNC, BORA Neck: trachea midline Respiratory: Clear to Ascultation Heart: regular, S1S2, no murmur, tachycardia Gastrointestinal: soft, distended, mild tenderness over the L side, normoactive bowel sound Integumentary: no rash, warm and dry Neurologic: alert, follows some command, answers questions, confusion noted Musculoskeletal: trace LE edema Hemodialysis access: L arm AVG Subjective Date of service: 09/07/19 Principal diagnosis: pancreatitis Interval history: Patient was seen and examined at the bedside. Sitter / RN at the bedside. Objective - Vital Signs Vital signs: Vital Signs - 12hr 09/07/19 09/07/19 09/07/19 00:00 00:33 01:00 Temperature 98.9 F Pulse Rate 139 H 140 H 131 H Pulse Rate [ 134 H From Monitor] Respiratory 29 H 37 H Rate Blood Pressure 145/82 145/82 145/82 O2 Sat by Pulse 100 94 Oximetry 09/07/19 09/07/19 09/07/19 02:00 02:59 03:00 Temperature Pulse Rate 137 H 140 H Pulse Rate [ From Monitor] Respiratory 30 H 28 H 30 H Rate Blood Pressure 128/75 127/69 O2 Sat by Pulse 96 97 Oximetry 09/07/19 09/07/19 09/07/19 04:00 05:01 05:11 Temperature 99.1 F Pulse Rate 144 H 146 H Pulse Rate [ 150 H From Monitor] Respiratory 21 32 H 31 H Rate Blood Pressure 109/54 123/68 O2 Sat by Pulse 96 99 Oximetry 11/04/2009/07/19 09/07/19 06:00 07:00 08:00 Temperature 99.7 F H Pulse Rate 148 H 145 H 140 H Pulse Rate [ From Monitor] Respiratory 32 H 22 26 H Rate Blood Pressure 97/44 91/45 98/41 O2 Sat by Pulse 96 99 93 Oximetry 09/07/19 09/07/19 09/07/19 09:28 10:14 10:33 Temperature Pulse Rate 137 H Pulse Rate [ From Monitor] Respiratory 33 H Rate Blood Pressure 111/64 O2 Sat by Pulse 96 Oximetry 09/07/19 10:35 Temperature Pulse Rate 137 H Pulse Rate [ From Monitor] Respiratory Rate Blood Pressure 111/64 O2 Sat by Pulse Oximetry - Lab 09/07/19 05:15 09/07/19 05:15 Most recent lab results Calcium 8.6 mg/dL (8.4-10.2) 09/07/19 05:15 Phosphorus 5.30 mg/dL (2.5-4.5) H 09/04/19 04:40 Magnesium 2.00 mg/dL (1.7-2.3) 09/05/19 03:40 Medications & Allergies - Medications Allergies/Adverse Reactions: Allergies lactose Adverse Reaction (Verified 07/29/19 08:16) Unknown Home Medications: Home Medications Medication Instructions Recorded Confirmed Last Taken Type ALBUTEROL NEB's [Proventil 0.083% 2.5 mg IH QID PRN 07/26/19 08/21/19 07/25/19 History NEBS] Labetalol HCl [Labetalol 300mg TAB] 300 mg PO Q12H 07/26/19 08/21/19 07/25/19 History Mirtazapine 7.5 mg PO QDAY 07/26/19 08/21/19 07/25/19 History Pantoprazole [Protonix TAB] 40 mg PO BID 07/26/19 08/21/19 08/21/19 15:56 H istory Sevelamer HCl [Renagel] 800 mg PO BIDWM 07/26/19 08/21/19 07/25/19 History Acetaminophen [Acetaminophen TAB] 650 mg PO Q6H PRN tablet 08/18/19 08/21/19 Unknown Rx Cyanocobalamin (Vitamin B-12) 1,000 mcg PO QDAY #20 08/18/19 08/21/19 Unknown Rx [Vitamin B-12] Epoetin Mitch 20,000 Unit [Procrit] 20,000 unit SUB-Q FAN PRN vial 08/18/19 08/21/19 Unknown Rx Folic Acid [Folvite] 1 mg PO QDAY #30 08/18/19 08/21/19 Unknown Rx Gabapentin 300 mg PO 3XW #60 08/18/19 08/21/19 08/21/19 15:58 Rx Hydroxychloroquine [Plaquenil] 200 mg PO QDAY #30 08/18/19 08/21/19 Unknown Rx Insulin Glargine [Lantus VIAL] 20 units SUB-Q QHS #1 units 08/18/19 08/21/19 08/21/19 15:57 Rx Labetalol [Labetalol 200mg TAB] 300 mg PO BID #60 tablet 08/18/19 08/21/19 Unknown Rx Losartan [Cozaar] 50 mg PO QDAY #30 08/18/19 08/21/19 Unknown Rx Mycophenolate [Cellcept] 500 mg PO QDAY #30 08/18/19 08/21/19 08/21/19 15:56 Rx Pantoprazole [Protonix TAB] 40 mg PO BID #60 tablet 08/18/19 08/21/19 08/21/19 15:55 Rx Sevelamer Carbonate [Renvela] 800 mg PO 0730,1630 #30 tablet 08/18/19 08/21/19 1 15:56 Rx Total Parenteral Nutrition [TPN 12 ml IV DAILY@2000 ml 08/18/19 08/21/19 08/21/19 15:55 Rx Adult] hydrOXYzine HCL [Atarax] 50 mg PO QDAY #30 08/18/19 08/21/19 Unknown Rx levETIRAcetam [Keppra TAB] 500 mg PO BID #60 tablet 08/18/19 08/21/19 08/21/19 15:54 Rx oxyCODONE /ACETAMINOPHEN [Percocet 1 tab PO Q8H PRN #30 tablet 08/18/19 08/21/19 Unknown Rx 5/325 mg] predniSONE [Deltasone] 20 mg PO QDAY #30 08/18/19 08/21/19 Unknown Rx Active Medications: Generic Name Dose Route Start Last Admin Trade Name Freq PRN Reason Stop Dose Admin Acetaminophen 650 mg 08/19/19 22:44 09/03/19 20:59 Tylenol PO 650 mg Q4H PRN Administration Pain MILD(1-3)/Fever >100.5/PORTER Acetaminophen 650 mg 08/26/19 13:00 09/03/19 04:11 Tylenol [place] 650 mg Q6H PRN Administration Pain, Mild (1-3) Albuterol 2.5 mg 08/20/19 09:00 09/07/19 09:17 Proventil IH 2.5 mg QID PRN Administration Wheezing Clonidine HCl 0.3 mg 09/03/19 14:00 09/03/19 19:49 Catapres-Tts Patch TD Not Given Sa JOEL Cyanocobalamin 1,000 mcg 08/20/19 10:00 09/07/19 10:15 Vitamin B-12 PO 1,000 mcg QDAY JOEL Administration Dextrose 0 ml 08/19/19 22:43 09/05/19 17:21 D50w (25gm) Syringe IV 10 ml Q30MIN PRN Administration Hypoglycemia Diphenhydramine HCl 25 mg 08/22/19 22:22 09/07/19 10:35 Benadryl IV 25 mg Q6H PRN Administration Itching Epoetin Mitch 20,000 unit 08/20/19 09:17 09/05/19 12:00 Procrit SUB-Q 20,000 unit FAN PRN Administration hemodialysis Folic Acid 1 mg 08/20/19 10:00 09/07/19 10:12 Folvite PO 1 mg QDAY JOEL Administration Haloperidol Lactate 5 mg 09/02/19 11:00 09/03/19 20:58 Haldol IM 5 mg Q6H PRN Administration Agitation Hydroxychloroquine Sulfate 200 mg 08/20/19 10:00 09/07/19 10:15 Plaquenil PO 200 mg QDAY JOEL Administration Hydroxyzine HCl 50 mg 08/20/19 10:00 09/07/19 10:12 Atarax PO 50 mg QDAY JOEL Administration Levetiracetam 750 mg/ Dextrose 107.5 mls @ 107.5 mls/hr 08/26/19 12:30 09/07/19 10:22 IV 400 mls/hr Q12HR JOEL Administration Meropenem 500 mg in 50 mls @ 50 mls/hr 09/04/19 14:00 09/06/19 14:07 Merrem/Ns 500 Mg/50 Ml IV 50 mls/hr Q24H JOEL Administration Sodium Chloride 100 mls @ 999 mls/hr 09/05/19 08:33 Nacl 0.9% IV FAN PRN Hypotension Insulin Glargine 20 units 08/20/19 22:00 09/06/19 22:01 Lantus SUB-Q 20 units QHS JOEL Administration Insulin Glargine 10 units 09/02/19 11:30 09/07/19 08:44 Lantus SUB-Q 10 units QAMDIAB JOEL Administration Insulin Human Lispro 0 unit 09/07/19 12:00 Humalog SUB-Q Q6HR [facility] Protocol Losartan Potassium 50 mg 08/20/19 10:00 09/07/19 10:14 Cozaar PO 50 mg QDAY JOEL Administration Melatonin 5 mg 08/25/19 22:00 09/06/19 22:05 Melatonin PO Not Given QHS [facility] Metoclopramide HCl 5 mg 09/01/19 13:00 09/07/19 04:39 Reglan IV 5 mg Q6H PRN Administration Nausea And Vomiting Metoprolol Tartrate 5 mg 09/01/19 18:48 09/07/19 10:35 Metoprolol IV 5 mg Q6HR PRN Administration Hypertension Morphine Sulfate 1 mg 09/02/19 11:30 09/07/19 10:33 Morphine IV 1 mg Q4H PRN Administration Pain , Severe (7-10) Mycophenolate Mofetil 500 mg 08/20/19 10:00 09/07/19 10:15 Cellcept PO 500 mg QDAY JOEL Administration Olanzapine 5 mg 09/02/19 13:00 09/07/19 10:13 Zyprexa Zydis PO 5 mg BID JOEL Administration Ondansetron HCl 4 mg 08/21/19 13:00 09/07/19 10:11 Zofran IV 4 mg Q4H PRN Administration Nausea And Vomiting Pantoprazole Sodium 40 mg 09/04/19 22:00 09/07/19 10:12 Protonix IV 40 mg BID JOEL Administration Promethazine HCl 25 mg 08/21/19 12:46 Phenergan [place] Q6H PRN Nausea And Vomiting Sevelamer Carbonate 800 mg 08/20/19 16:30 09/07/19 08:42 Renvela PO 800 mg 0730,1630 JOEL Administration Sodium Chloride 10 ml 08/20/19 10:00 09/07/19 10:28 Sodium Chloride Flush Syringe 10 Ml IV 10 ml BID JOEL Administration Sodium Chloride 10 ml 08/19/19 22:44 09/05/19 17:22 Sodium Chloride Flush Syringe 10 Ml IV 10 ml PRN PRN Administration LINE FLUSH
[2019-09-07] MEDS: INSULIN LISPRO 100 UNIT/ML SUB-Q SCH ×2 (12:22→17:30)
--- NOTE | 2019-09-07 12:27 | Progress Note ---
Subjective - Reason for Consult Consult date: 09/07/19 Reason for consult: Psychiatry Follow-up - Chief Complaint Chief complaint: "I'm a little tired" 29 y.o. AA female who presented to the ER for AMS. Today the patient was calm and cooperative during the assessment. The patient was more engaging. She is aware of her pending transfer to [facility]. She denies SI/HI's and AVH's. No indications of side effects from her medication. Mental Status Exam - Vital signs Last Vital Signs Temp 99.7 F H 09/07/19 08:00 Pulse 137 H 09/07/19 10:35 Resp 33 H 09/07/19 10:33 BP 111/64 09/07/19 10:35 Pulse Ox 96 09/07/19 09:28 - Exam Narrative exam: MSE: Appearance: calm, cooperative Behavior: regular eye contact Speech: regular rate and tone Mood: "okay" Affect: congruent to mood Thought Process: circumstantial Thought Content: denies SI/HI's and AVH's Motor Activity: lying in bed Cognition: A/O x 3 Insight: fair Judgment: fair Assessment and Plan Impression. Delirium on admission to the hospital. The patient's mental status have improved. Today the patient was calm and cooperative during the assessment. Cr 5.2. DDx: Unspecified Personality DO Recommendation/Plan: Continue Zyprexa Zydis ODT 5 mg B[address] for psychosis. [address] tablet on the patients's tongue for administration. {sy sign off. Dispo: The patient is pending transfer to [facility] per Case Mgmt. Staffed with Dr Luis Rivera.
--- NOTE | 2019-09-07 13:20 | Progress Note ---
Assessment and Plan Patient awake. Weak . Resting on 2 litres O2. O2 saturation running 100 to 99%.Patient is having mild shortness of breath at rest. Patient tachycardic.Heart rate 130. 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 Chest xray reported cardiomegaly and pulmonary vascular congestion.. - Patient Problems (1) Pulmonary vascular congestion Current Visit: Yes Status: Acute Plan to address problem: 1. Continue O2 2 litres via nasal canula. 2. Fluid restriction. 3. Lasix if she develops more shortness of breath. (2) Diabetes mellitus with hyperosmolarity without coma, with long-term current use of insulin Current Visit: Yes Status: Acute Plan to address problem: Management as per primary care. (3) NSTEMI (non-ST elevated myocardial infarction) Current Visit: Yes Status: Acute Plan to address problem: Management as per cardiology. (4) H/O acute pancreatitis Current Visit: No Status: Acute Plan to address problem: Management as per primary care. (5) End-stage renal disease needing dialysis Current Visit: Yes Status: Chronic Plan to address problem: Management as per nephrology. (6) Acute metabolic encephalopathy Current Visit: No Status: Acute Plan to address problem: Management as per primary care. (7) Hypertension Current Visit: No Status: Chronic Plan to address problem: Management as per primary care. (8) Lupus Current Visit: No Status: Chronic Plan to address problem: Patient is on Plaquanil. Management as per primary care. (9) Seizure disorder Current Visit: No Status: Chronic Plan to address problem: Management as per neurology. Subjective Date of service: 09/07/19 Principal diagnosis: pancreatitis Interval history: Patient awake. Weak . Resting on 2 litres O2. O2 saturation running 100 to 99%.Patient is having mild shortness of breath at rest. Patient tachycardic.Heart rate 130. 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 Chest xray reported cardiomegaly and pulmonary vascular congestion. Objective Vital Signs - 12hr 09/07/19 09/07/19 09/07/19 02:00 02:59 03:00 Temperature Pulse Rate 137 H 140 H Pulse Rate [ From Monitor] Respiratory 30 H 28 H 30 H Rate Blood Pressure 128/75 127/69 O2 Sat by Pulse 96 97 Oximetry 09/07/19 09/07/19 09/07/19 04:00 05:01 05:11 Temperature 99.1 F Pulse Rate 144 H 146 H Pulse Rate [ 150 H From Monitor] Respiratory 21 32 H 31 H Rate Blood Pressure 109/54 123/68 O2 Sat by Pulse 96 99 Oximetry 09/07/19 09/07/19 09/07/19 06:00 07:00 08:00 Temperature 99.7 F H Pulse Rate 148 H 145 H 140 H Pulse Rate [ From Monitor] Respiratory 32 H 22 26 H Rate Blood Pressure 97/44 91/45 98/41 O2 Sat by Pulse 96 99 93 Oximetry 09/07/19 09/07/19 09/07/19 09:28 10:14 10:33 Temperature Pulse Rate 137 H Pulse Rate [ From Monitor] Respiratory 33 H Rate Blood Pressure 111/64 O2 Sat by Pulse 96 Oximetry 09/07/19 09/07/19 10:35 11:30 Temperature 99.4 F Pulse Rate 137 H Pulse Rate [ From Monitor] Respiratory Rate Blood Pressure 111/64 O2 Sat by Pulse Oximetry Constitutional: alert, appears uncomfortable, other (Mild respiratory distress.) Eyes: non-icteric ENT: oropharynx moist Neck: supple, no lymphadenopathy Effort: mildly labored Ascultation: Bilateral: diminished breath sounds, rales (FEW rales.) Cardiovascular: other (Tachycardia, rate 127.) Gastrointestinal: normoactive bowel sounds, soft, non-tender Integumentary: normal Extremities: no cyanosis, no edema Neurologic: non-focal exam, pupils equal and round Psychiatric: depressed CBC and BMP: 09/07/19 05:15 09/07/19 05:15 ABG, PT/INR, D-dimer: ABG POC ABG pH 7.487 (7.35-7.45) H 09/04/19 18:49 POC ABG pCO2 33.3 (35-45) L 09/04/19 18:49 POC ABG pO2 120 (80-105) H 09/04/19 18:49 POC ABG HCO3 25.2 (22-26 mml/L) 09/04/19 18:49 POC ABG Total CO2 26 (23-27mmol/L) 09/04/19 18:49 POC ABG O2 Sat 99 09/04/19 18:49 Abnormal lab findings: Abnormal Labs 08/19/19 08/19/19 08/19/19 20:48 20:48 23:48 WBC 17.2 H RBC 2.50 L Hgb 6.8 L Hct 22.3 L MCH 27 L RDW 18.6 H Lymph % (Auto) [place] % (Auto) [place] # Seg Neutrophils % Seg Neuts % (Manual) Lymphocytes % (Manual) Monocytes % (Manual) Nucleated RBC % Seg Neutrophils # Seg Neutrophils # Man Lymphocytes # (Manual) Monocytes # (Manual) POC ABG pH POC ABG pCO2 POC ABG pO2 Sodium 131 L Potassium 2.8 L* D Chloride 92.9 L Carbon Dioxide BUN 64 H Creatinine 5.2 H Glucose 981 H* POC Glucose Calcium 8.2 L Phosphorus Magnesium Direct Bilirubin ALT < 5 L Alkaline Phosphatase CK-MB (CK-2) 4.8 H CK-MB (CK-2) Rel Index 8.8 H Troponin T 0.249 H* 0.288 H* C-Reactive Protein Total Protein 4.7 L Albumin 1.9 L Triglycerides 197 H LDL Cholesterol Direct 34 L HDL Cholesterol 19 L Lipase 251 H Crossmatch 08/20/19 08/20/19 08/20/19 00:06 00:09 01:40 WBC RBC Hgb Hct MCH RDW Lymph % (Auto) [place] % (Auto) [place] # Seg Neutrophils % Seg Neuts % (Manual) Lymphocytes % (Manual) Monocytes % (Manual) Nucleated RBC % Seg Neutrophils # Seg Neutrophils # Man Lymphocytes # (Manual) Monocytes # (Manual) POC ABG pH POC ABG pCO2 POC ABG pO2 Sodium Potassium 3.3 L Chloride 96.6 L Carbon Dioxide BUN 71 H Creatinine 6.0 H Glucose 180 H POC Glucose 180 H 142 H Calcium Phosphorus Magnesium Direct Bilirubin ALT Alkaline Phosphatase CK-MB (CK-2) CK-MB (CK-2) Rel Index Troponin T C-Reactive Protein Total Protein Albumin Triglycerides LDL Cholesterol Direct HDL Cholesterol Lipase Crossmatch 08/20/19 08/20/19 08/20/19 10:38 10:38 17:24 WBC RBC Hgb Hct MCH RDW Lymph % (Auto) [place] % (Auto) [place] # Seg Neutrophils % Seg Neuts % (Manual) Lymphocytes % (Manual) Monocytes % (Manual) Nucleated RBC % Seg Neutrophils # Seg Neutrophils # Man Lymphocytes # (Manual) Monocytes # (Manual) POC ABG pH POC ABG pCO2 POC ABG pO2 Sodium Potassium 2.9 L* Chloride Carbon Dioxide 17 L D BUN 64 H Creatinine 5.6 H Glucose POC Glucose 124 H Calcium 6.8 L D Phosphorus Magnesium Direct Bilirubin ALT < 5 L Alkaline Phosphatase CK-MB (CK-2) 4.5 H CK-MB (CK-2) Rel Index 10.7 H Troponin T 0.323 H* C-Reactive Protein Total Protein 4.1 L Albumin 1.4 L Triglycerides LDL Cholesterol Direct HDL Cholesterol Lipase Crossmatch 08/20/19 08/20/19 08/21/19 20:20 21:25 07:55 WBC RBC Hgb Hct MCH RDW Lymph % (Auto) [place] % (Auto) [place] # Seg Neutrophils % Seg Neuts % (Manual) Lymphocytes % (Manual) Monocytes % (Manual) Nucleated RBC % Seg Neutrophils # Seg Neutrophils # Man Lymphocytes # (Manual) Monocytes # (Manual) POC ABG pH POC ABG pCO2 POC ABG pO2 Sodium Potassium 5.2 H D Chloride 97.6 L Carbon Dioxide BUN 52 H Creatinine 5.0 H Glucose 287 H POC Glucose 161 H Calcium Phosphorus Magnesium 1.60 L Direct Bilirubin ALT Alkaline Phosphatase CK-MB (CK-2) CK-MB (CK-2) Rel Index Troponin T C-Reactive Protein Total Protein Albumin Triglycerides LDL Cholesterol Direct HDL Cholesterol Lipase Crossmatch 08/21/19 08/21/19 08/21/19 08:04 12:04 16:30 WBC RBC Hgb Hct MCH RDW Lymph % (Auto) [place] % (Auto) [place] # Seg Neutrophils % Seg Neuts % (Manual) Lymphocytes % (Manual) Monocytes % (Manual) Nucleated RBC % Seg Neutrophils # Seg Neutrophils # Man Lymphocytes # (Manual) Monocytes # (Manual) POC ABG pH POC ABG pCO2 POC ABG pO2 Sodium Potassium Chloride Carbon Dioxide BUN Creatinine Glucose POC Glucose 157 H 188 H 255 H Calcium Phosphorus Magnesium Direct Bilirubin ALT Alkaline Phosphatase CK-MB (CK-2) CK-MB (CK-2) Rel Index Troponin T C-Reactive Protein Total Protein Albumin Triglycerides LDL Cholesterol Direct HDL Cholesterol Lipase Crossmatch 08/21/19 08/22/19 08/22/19 21:17 04:00 08:20 WBC RBC Hgb Hct MCH RDW Lymph % (Auto) [place] % (Auto) [place] # Seg Neutrophils % Seg Neuts % (Manual) Lymphocytes % (Manual) Monocytes % (Manual) Nucleated RBC % Seg Neutrophils # Seg Neutrophils # Man Lymphocytes # (Manual) Monocytes # (Manual) POC ABG pH POC ABG pCO2 POC ABG pO2 Sodium Potassium Chloride 96.4 L Carbon Dioxide BUN 65 H Creatinine 6.1 H Glucose 119 H POC Glucose 251 H 148 H Calcium 8.3 L Phosphorus Magnesium Direct Bilirubin ALT Alkaline Phosphatase CK-MB (CK-2) CK-MB (CK-2) Rel Index Troponin T C-Reactive Protein Total Protein Albumin Triglycerides LDL Cholesterol Direct HDL Cholesterol Lipase Crossmatch 08/22/19 08/22/19 08/22/19 14:45 16:29 21:04 WBC RBC Hgb 7.0 L Hct 22.3 L MCH RDW Lymph % (Auto) [place] % (Auto) [place] # Seg Neutrophils % Seg Neuts % (Manual) Lymphocytes % (Manual) Monocytes % (Manual) Nucleated RBC % Seg Neutrophils # Seg Neutrophils # Man Lymphocytes # (Manual) Monocytes # (Manual) POC ABG pH POC ABG pCO2 POC ABG pO2 Sodium Potassium Chloride Carbon Dioxide BUN Creatinine Glucose POC Glucose 115 H 162 H Calcium Phosphorus Magnesium Direct Bilirubin ALT Alkaline Phosphatase CK-MB (CK-2) CK-MB (CK-2) Rel Index Troponin T C-Reactive Protein Total Protein Albumin Triglycerides LDL Cholesterol Direct HDL Cholesterol Lipase Crossmatch 08/23/19 08/24/19 08/24/19 08:00 07:42 07:42 WBC 22.8 H RBC 2.47 L Hgb 6.7 L Hct 20.5 L MCH 27 L RDW 18.1 H Lymph % (Auto) [place] % (Auto) [place] # Seg Neutrophils % Seg Neuts % (Manual) 95.0 H Lymphocytes % (Manual) 3.0 L Monocytes % (Manual) Nucleated RBC % Seg Neutrophils # Seg Neutrophils # Man 21.7 H Lymphocytes # (Manual) 0.7 L Monocytes # (Manual) POC ABG pH POC ABG pCO2 POC ABG pO2 Sodium 136 L Potassium 5.7 H D Chloride 92.2 L Carbon Dioxide 19 L BUN 107 H Creatinine 9.1 H Glucose POC Glucose 141 H Calcium Phosphorus 7.40 H Magnesium Direct Bilirubin ALT Alkaline Phosphatase CK-MB (CK-2) CK-MB (CK-2) Rel Index Troponin T C-Reactive Protein Total Protein Albumin Triglycerides LDL Cholesterol Direct HDL Cholesterol Lipase Crossmatch 08/24/19 08/24/19 08/25/19 18:53 23:32 05:00 WBC RBC Hgb Hct MCH RDW Lymph % (Auto) [place] % (Auto) [place] # Seg Neutrophils % Seg Neuts % (Manual) Lymphocytes % (Manual) Monocytes % (Manual) Nucleated RBC % Seg Neutrophils # Seg Neutrophils # Man Lymphocytes # (Manual) Monocytes # (Manual) POC ABG pH POC ABG pCO2 POC ABG pO2 Sodium Potassium Chloride 93.9 L Carbon Dioxide BUN 61 H Creatinine 5.3 H Glucose 166 H POC Glucose 169 H 139 H Calcium Phosphorus Magnesium Direct Bilirubin ALT Alkaline Phosphatase CK-MB (CK-2) CK-MB (CK-2) Rel Index Troponin T C-Reactive Protein Total Protein Albumin Triglycerides LDL Cholesterol Direct HDL Cholesterol Lipase Crossmatch 08/25/19 08/25/19 08/25/19 05:00 05:14 22:02 WBC 19.7 H RBC 2.45 L Hgb 6.6 L Hct 20.4 L MCH 27 L RDW 18.6 H Lymph % (Auto) [place] % (Auto) [place] # Seg Neutrophils % Seg Neuts % (Manual) 75.0 H Lymphocytes % (Manual) Monocytes % (Manual) Nucleated RBC % Seg Neutrophils # Seg Neutrophils # Man 14.8 H Lymphocytes # (Manual) Monocytes # (Manual) POC ABG pH POC ABG pCO2 POC ABG pO2 Sodium Potassium Chloride Carbon Dioxide BUN Creatinine Glucose POC Glucose 225 H 106 H Calcium Phosphorus Magnesium Direct Bilirubin ALT Alkaline Phosphatase CK-MB (CK-2) CK-MB (CK-2) Rel Index Troponin T C-Reactive Protein Total Protein Albumin Triglycerides LDL Cholesterol Direct HDL Cholesterol Lipase Crossmatch 08/26/19 08/26/19 08/26/19 07:39 11:31 12:33 WBC RBC Hgb Hct MCH RDW Lymph % (Auto) [place] % (Auto) [place] # Seg Neutrophils % Seg Neuts % (Manual) Lymphocytes % (Manual) Monocytes % (Manual) Nucleated RBC % Seg Neutrophils # Seg Neutrophils # Man Lymphocytes # (Manual) Monocytes # (Manual) POC ABG pH POC ABG pCO2 POC ABG pO2 Sodium Potassium Chloride Carbon Dioxide BUN Creatinine Glucose POC Glucose 212 H 110 H Calcium Phosphorus Magnesium Direct Bilirubin ALT Alkaline Phosphatase CK-MB (CK-2) CK-MB (CK-2) Rel Index Troponin T C-Reactive Protein Total Protein Albumin Triglycerides LDL Cholesterol Direct HDL Cholesterol Lipase Crossmatch See Detail 08/26/19 08/26/19 08/26/19 12:33 12:33 17:38 WBC 18.4 H RBC 2.43 L Hgb 6.3 L Hct 20.1 L MCH 26 L RDW 18.5 H Lymph % (Auto) [place] % (Auto) [place] # Seg Neutrophils % Seg Neuts % (Manual) 80.0 H Lymphocytes % (Manual) 9.0 L Monocytes % (Manual) Nucleated RBC % Seg Neutrophils # Seg Neutrophils # Man 14.7 H Lymphocytes # (Manual) Monocytes # (Manual) POC ABG pH POC ABG pCO2 POC ABG pO2 Sodium Potassium Chloride 93.4 L Carbon Dioxide BUN 95 H Creatinine 8.1 H D Glucose 119 H POC Glucose 196 H Calcium Phosphorus 5.00 H D Magnesium Direct Bilirubin ALT Alkaline Phosphatase CK-MB (CK-2) CK-MB (CK-2) Rel Index Troponin T C-Reactive Protein Total Protein Albumin Triglycerides LDL Cholesterol Direct HDL Cholesterol Lipase Crossmatch 08/26/19 08/27/19 08/27/19 22:08 07:40 07:40 WBC 14.4 H RBC 2.17 L Hgb 5.7 L* Hct 18.1 L* MCH 26 L RDW 18.6 H Lymph % (Auto) [place] % (Auto) [place] # Seg Neutrophils % Seg Neuts % (Manual) Lymphocytes % (Manual) Monocytes % (Manual) 8.0 H Nucleated RBC % Seg Neutrophils # Seg Neutrophils # Man 9.6 H Lymphocytes # (Manual) Monocytes # (Manual) 1.2 H POC ABG pH POC ABG pCO2 POC ABG pO2 Sodium 136 L Potassium Chloride 87.5 L Carbon Dioxide 20 L BUN 117 H Creatinine 9.0 H Glucose 379 H POC Glucose 252 H Calcium Phosphorus 7.10 H D Magnesium Direct Bilirubin ALT Alkaline Phosphatase CK-MB (CK-2) CK-MB (CK-2) Rel Index Troponin T C-Reactive Protein Total Protein Albumin Triglycerides LDL Cholesterol Direct HDL Cholesterol Lipase Crossmatch 08/27/19 08/27/19 08/27/19 08:13 09:02 09:42 WBC RBC Hgb Hct MCH RDW Lymph % (Auto) [place] % (Auto) [place] # Seg Neutrophils % Seg Neuts % (Manual) Lymphocytes % (Manual) Monocytes % (Manual) Nucleated RBC % Seg Neutrophils # Seg Neutrophils # Man Lymphocytes # (Manual) Monocytes # (Manual) POC ABG pH POC ABG pCO2 POC ABG pO2 Sodium Potassium Chloride Carbon Dioxide BUN Creatinine Glucose 578 H* POC Glucose > 500 H > 500 H Calcium Phosphorus Magnesium Direct Bilirubin ALT Alkaline Phosphatase CK-MB (CK-2) CK-MB (CK-2) Rel Index Troponin T C-Reactive Protein Total Protein Albumin Triglycerides LDL Cholesterol Direct HDL Cholesterol Lipase Crossmatch 08/27/19 08/28/19 08/28/19 10:14 01:05 05:25 WBC RBC Hgb Hct MCH RDW Lymph % (Auto) [place] % (Auto) [place] # Seg Neutrophils % Seg Neuts % (Manual) Lymphocytes % (Manual) Monocytes % (Manual) Nucleated RBC % Seg Neutrophils # Seg Neutrophils # Man Lymphocytes # (Manual) Monocytes # (Manual) POC ABG pH POC ABG pCO2 POC ABG pO2 Sodium Potassium 3.5 L D Chloride 93.6 L Carbon Dioxide BUN 72 H Creatinine 5.5 H Glucose 361 H POC Glucose 485 H 161 H Calcium Phosphorus Magnesium Direct Bilirubin ALT Alkaline Phosphatase CK-MB (CK-2) CK-MB (CK-2) Rel Index Troponin T C-Reactive Protein Total Protein Albumin Triglycerides LDL Cholesterol Direct HDL Cholesterol Lipase Crossmatch 08/28/19 08/28/19 08/28/19 07:40 10:44 12:30 WBC RBC 3.43 L Hgb 9.4 L D Hct 29.1 L D MCH RDW 17.0 H Lymph % (Auto) [place] % (Auto) [place] # Seg Neutrophils % Seg Neuts % (Manual) 81.0 H Lymphocytes % (Manual) Monocytes % (Manual) Nucleated RBC % Seg Neutrophils # Seg Neutrophils # Man 8.6 H Lymphocytes # (Manual) Monocytes # (Manual) POC ABG pH POC ABG pCO2 POC ABG pO2 Sodium Potassium Chloride Carbon Dioxide BUN Creatinine Glucose POC Glucose 362 H 355 H Calcium Phosphorus Magnesium Direct Bilirubin ALT Alkaline Phosphatase CK-MB (CK-2) CK-MB (CK-2) Rel Index Troponin T C-Reactive Protein Total Protein Albumin Triglycerides LDL Cholesterol Direct HDL Cholesterol Lipase Crossmatch 08/28/19 08/28/19 08/29/19 18:01 21:38 05:00 WBC 12.3 H RBC 3.29 L Hgb 8.8 L Hct 27.8 L MCH 27 L RDW 17.1 H Lymph % (Auto) [place] % (Auto) [place] # Seg Neutrophils % Seg Neuts % (Manual) 80.0 H Lymphocytes % (Manual) Monocytes % (Manual) Nucleated RBC % Seg Neutrophils # Seg Neutrophils # Man 9.8 H Lymphocytes # (Manual) Monocytes # (Manual) POC ABG pH POC ABG pCO2 POC ABG pO2 Sodium Potassium Chloride Carbon Dioxide BUN Creatinine Glucose POC Glucose 150 H 240 H Calcium Phosphorus Magnesium Direct Bilirubin ALT Alkaline Phosphatase CK-MB (CK-2) CK-MB (CK-2) Rel Index Troponin T C-Reactive Protein Total Protein Albumin Triglycerides LDL Cholesterol Direct HDL Cholesterol Lipase Crossmatch 08/29/19 08/29/19 08/29/19 05:00 07:59 13:02 WBC RBC Hgb Hct MCH RDW Lymph % (Auto) [place] % (Auto) [place] # Seg Neutrophils % Seg Neuts % (Manual) Lymphocytes % (Manual) Monocytes % (Manual) Nucleated RBC % Seg Neutrophils # Seg Neutrophils # Man Lymphocytes # (Manual) Monocytes # (Manual) POC ABG pH POC ABG pCO2 POC ABG pO2 Sodium Potassium 3.3 L Chloride 89.7 L Carbon Dioxide BUN 111 H Creatinine 6.9 H Glucose 374 H POC Glucose 373 H 59 L Calcium Phosphorus 5.90 H Magnesium Direct Bilirubin ALT 5 L Alkaline Phosphatase 173 H CK-MB (CK-2) CK-MB (CK-2) Rel Index Troponin T C-Reactive Protein Total Protein 5.5 L Albumin 2.0 L Triglycerides LDL Cholesterol Direct HDL Cholesterol Lipase Crossmatch 08/29/19 08/29/19 08/30/19 18:38 22:36 06:29 WBC RBC Hgb Hct MCH RDW Lymph % (Auto) [place] % (Auto) [place] # Seg Neutrophils % Seg Neuts % (Manual) Lymphocytes % (Manual) Monocytes % (Manual) Nucleated RBC % Seg Neutrophils # Seg Neutrophils # Man Lymphocytes # (Manual) Monocytes # (Manual) POC ABG pH POC ABG pCO2 POC ABG pO2 Sodium Potassium Chloride Carbon Dioxide BUN Creatinine Glucose POC Glucose 111 H 157 H 427 H Calcium Phosphorus Magnesium Direct Bilirubin ALT Alkaline Phosphatase CK-MB (CK-2) CK-MB (CK-2) Rel Index Troponin T C-Reactive Protein Total Protein Albumin Triglycerides LDL Cholesterol Direct HDL Cholesterol Lipase Crossmatch 08/30/19 08/30/19 08/30/19 06:30 06:30 11:59 WBC 13.6 H RBC 3.22 L Hgb 8.9 L Hct 27.1 L MCH RDW 17.3 H Lymph % (Auto) [place] % (Auto) [place] # Seg Neutrophils % Seg Neuts % (Manual) 80.0 H Lymphocytes % (Manual) Monocytes % (Manual) Nucleated RBC % 2.0 H Seg Neutrophils # Seg Neutrophils # Man 10.9 H Lymphocytes # (Manual) Monocytes # (Manual) POC ABG pH POC ABG pCO2 POC ABG pO2 Sodium 136 L Potassium Chloride 86.8 L Carbon Dioxide 21 L BUN 141 H Creatinine 8.0 H Glucose 493 H POC Glucose 275 H Calcium Phosphorus 6.40 H Magnesium Direct Bilirubin ALT Alkaline Phosphatase CK-MB (CK-2) CK-MB (CK-2) Rel Index Troponin T C-Reactive Protein Total Protein Albumin Triglycerides LDL Cholesterol Direct HDL Cholesterol Lipase Crossmatch 08/30/19 08/31/19 08/31/19 21:28 05:45 05:45 WBC 11.8 H RBC 3.55 L Hgb 9.6 L Hct 30.1 L MCH 27 L RDW 17.3 H Lymph % (Auto) [place] % (Auto) 12.5 H [place] # 1.5 H Seg Neutrophils % 73.8 H Seg Neuts % (Manual) Lymphocytes % (Manual) Monocytes % (Manual) Nucleated RBC % Seg Neutrophils # 8.7 H Seg Neutrophils # Man Lymphocytes # (Manual) Monocytes # (Manual) POC ABG pH POC ABG pCO2 POC ABG pO2 Sodium 135 L Potassium Chloride 90.7 L Carbon Dioxide BUN 95 H Creatinine 5.9 H Glucose 406 H POC Glucose 183 H Calcium Phosphorus 4.90 H D Magnesium Direct Bilirubin ALT Alkaline Phosphatase CK-MB (CK-2) CK-MB (CK-2) Rel Index Troponin T C-Reactive Protein Total Protein Albumin Triglycerides LDL Cholesterol Direct HDL Cholesterol Lipase Crossmatch 08/31/19 08/31/19 08/31/19 06:16 12:18 17:03 WBC RBC Hgb Hct MCH RDW Lymph % (Auto) [place] % (Auto) [place] # Seg Neutrophils % Seg Neuts % (Manual) Lymphocytes % (Manual) Monocytes % (Manual) Nucleated RBC % Seg Neutrophils # Seg Neutrophils # Man Lymphocytes # (Manual) Monocytes # (Manual) POC ABG pH POC ABG pCO2 POC ABG pO2 Sodium Potassium Chloride Carbon Dioxide BUN Creatinine Glucose POC Glucose 407 H 199 H 118 H Calcium Phosphorus Magnesium Direct Bilirubin ALT Alkaline Phosphatase CK-MB (CK-2) CK-MB (CK-2) Rel Index Troponin T C-Reactive Protein Total Protein Albumin Triglycerides LDL Cholesterol Direct HDL Cholesterol Lipase Crossmatch 08/31/19 09/01/19 09/01/19 22:20 07:09 07:30 WBC RBC Hgb Hct MCH RDW Lymph % (Auto) [place] % (Auto) [place] # Seg Neutrophils % Seg Neuts % (Manual) Lymphocytes % (Manual) Monocytes % (Manual) Nucleated RBC % Seg Neutrophils # Seg Neutrophils # Man Lymphocytes # (Manual) Monocytes # (Manual) POC ABG pH POC ABG pCO2 POC ABG pO2 Sodium Potassium Chloride 89.2 L Carbon Dioxide BUN 125 H Creatinine 7.1 H Glucose 426 H POC Glucose 203 H 362 H Calcium Phosphorus 5.30 H Magnesium Direct Bilirubin ALT Alkaline Phosphatase CK-MB (CK-2) CK-MB (CK-2) Rel Index Troponin T C-Reactive Protein Total Protein Albumin Triglycerides LDL Cholesterol Direct HDL Cholesterol Lipase Crossmatch 09/01/19 09/01/19 09/01/19 08:35 11:27 18:42 WBC 22.8 H RBC 3.52 L Hgb 9.4 L Hct 29.5 L MCH 27 L RDW 18.3 H Lymph % (Auto) [place] % (Auto) [place] # Seg Neutrophils % Seg Neuts % (Manual) 98.0 H Lymphocytes % (Manual) 1.0 L Monocytes % (Manual) Nucleated RBC % Seg Neutrophils # Seg Neutrophils # Man 22.3 H Lymphocytes # (Manual) 0.2 L Monocytes # (Manual) POC ABG pH POC ABG pCO2 POC ABG pO2 Sodium Potassium Chloride Carbon Dioxide BUN Creatinine Glucose POC Glucose 325 H 162 H Calcium Phosphorus Magnesium Direct Bilirubin ALT Alkaline Phosphatase CK-MB (CK-2) CK-MB (CK-2) Rel Index Troponin T C-Reactive Protein Total Protein Albumin Triglycerides LDL Cholesterol Direct HDL Cholesterol Lipase Crossmatch 09/01/19 09/02/19 09/02/19 23:37 06:07 09:15 WBC 21.9 H RBC 2.60 L Hgb 7.0 L Hct 23.0 L D MCH 27 L RDW 19.1 H Lymph % (Auto) [place] % (Auto) [place] # Seg Neutrophils % Seg Neuts % (Manual) 98.0 H Lymphocytes % (Manual) 2.0 L Monocytes % (Manual) Nucleated RBC % Seg Neutrophils # Seg Neutrophils # Man 21.5 H Lymphocytes # (Manual) 0.4 L Monocytes # (Manual) POC ABG pH POC ABG pCO2 POC ABG pO2 Sodium Potassium Chloride Carbon Dioxide BUN Creatinine Glucose POC Glucose 276 H 438 H Calcium Phosphorus Magnesium Direct Bilirubin ALT Alkaline Phosphatase CK-MB (CK-2) CK-MB (CK-2) Rel Index Troponin T C-Reactive Protein Total Protein Albumin Triglycerides LDL Cholesterol Direct HDL Cholesterol Lipase Crossmatch 09/02/19 09/02/19 09/02/19 09:15 12:45 18:19 WBC RBC Hgb Hct MCH RDW Lymph % (Auto) [place] % (Auto) [place] # Seg Neutrophils % Seg Neuts % (Manual) Lymphocytes % (Manual) Monocytes % (Manual) Nucleated RBC % Seg Neutrophils # Seg Neutrophils # Man Lymphocytes # (Manual) Monocytes # (Manual) POC ABG pH POC ABG pCO2 POC ABG pO2 Sodium 131 L Potassium Chloride 84.4 L Carbon Dioxide 19 L BUN 156 H Creatinine 7.6 H Glucose 849 H* POC Glucose 362 H 148 H Calcium 8.2 L Phosphorus Magnesium 1.60 L Direct Bilirubin ALT 6 L Alkaline Phosphatase 139 H CK-MB (CK-2) CK-MB (CK-2) Rel Index Troponin T C-Reactive Protein 26.00 H Total Protein 4.9 L Albumin 1.6 L Triglycerides LDL Cholesterol Direct HDL Cholesterol Lipase 212 H Crossmatch 09/03/19 09/03/19 09/03/19 00:06 04:33 04:33 WBC 22.2 H RBC 2.71 L Hgb 7.5 L Hct 23.3 L MCH RDW 18.1 H Lymph % (Auto) [place] % (Auto) [place] # Seg Neutrophils % Seg Neuts % (Manual) 94.0 H Lymphocytes % (Manual) 4.0 L Monocytes % (Manual) Nucleated RBC % Seg Neutrophils # Seg Neutrophils # Man 20.9 H Lymphocytes # (Manual) 0.9 L Monocytes # (Manual) POC ABG pH POC ABG pCO2 POC ABG pO2 Sodium Potassium Chloride Carbon Dioxide BUN 88 H Creatinine 5.0 H Glucose 331 H POC Glucose 277 H Calcium Phosphorus Magnesium Direct Bilirubin ALT Alkaline Phosphatase CK-MB (CK-2) CK-MB (CK-2) Rel Index Troponin T C-Reactive Protein Total Protein Albumin Triglycerides LDL Cholesterol Direct HDL Cholesterol Lipase Crossmatch 09/03/19 09/03/19 09/04/19 06:12 21:26 01:09 EST WBC RBC Hgb Hct MCH RDW Lymph % (Auto) [place] % (Auto) [place] # Seg Neutrophils % Seg Neuts % (Manual) Lymphocytes % (Manual) Monocytes % (Manual) Nucleated RBC % Seg Neutrophils # Seg Neutrophils # Man Lymphocytes # (Manual) Monocytes # (Manual) POC ABG pH POC ABG pCO2 POC ABG pO2 Sodium Potassium Chloride Carbon Dioxide BUN Creatinine Glucose POC Glucose 288 H 67 L 166 H Calcium Phosphorus Magnesium Direct Bilirubin ALT Alkaline Phosphatase CK-MB (CK-2) CK-MB (CK-2) Rel Index Troponin T C-Reactive Protein Total Protein Albumin Triglycerides LDL Cholesterol Direct HDL Cholesterol Lipase Crossmatch 09/04/19 09/04/19 09/04/19 04:40 04:40 04:40 WBC 19.5 H RBC 2.49 L Hgb 6.7 L Hct 21.3 L MCH 27 L RDW 17.8 H Lymph % (Auto) 10.7 L [place] % (Auto) [place] # 1.3 H Seg Neutrophils % 82.2 H Seg Neuts % (Manual) Lymphocytes % (Manual) Monocytes % (Manual) Nucleated RBC % Seg Neutrophils # 16.0 H Seg Neutrophils # Man Lymphocytes # (Manual) Monocytes # (Manual) POC ABG pH POC ABG pCO2 POC ABG pO2 Sodium Potassium Chloride 94.4 L Carbon Dioxide BUN 112 H Creatinine 6.3 H Glucose 273 H POC Glucose Calcium Phosphorus 5.30 H Magnesium Direct Bilirubin 0.3 H ALT Alkaline Phosphatase CK-MB (CK-2) CK-MB (CK-2) Rel Index Troponin T C-Reactive Protein Total Protein 5.0 L Albumin 1.5 L Triglycerides LDL Cholesterol Direct HDL Cholesterol Lipase Crossmatch 09/04/19 09/04/19 09/04/19 06:03 07:55 14:25 WBC 20.7 H RBC 2.45 L Hgb 6.5 L Hct 20.6 L MCH 26 L RDW 17.3 H Lymph % (Auto) [place] % (Auto) [place] # Seg Neutrophils % Seg Neuts % (Manual) Lymphocytes % (Manual) Monocytes % (Manual) Nucleated RBC % Seg Neutrophils # Seg Neutrophils # Man Lymphocytes # (Manual) Monocytes # (Manual) POC ABG pH POC ABG pCO2 POC ABG pO2 Sodium Potassium Chloride Carbon Dioxide BUN Creatinine Glucose POC Glucose 309 H 287 H Calcium Phosphorus Magnesium Direct Bilirubin ALT Alkaline Phosphatase CK-MB (CK-2) CK-MB (CK-2) Rel Index Troponin T C-Reactive Protein Total Protein Albumin Triglycerides LDL Cholesterol Direct HDL Cholesterol Lipase Crossmatch 09/04/19 09/04/19 09/05/19 16:40 18:49 03:40 WBC RBC Hgb Hct MCH RDW Lymph % (Auto) [place] % (Auto) [place] # Seg Neutrophils % Seg Neuts % (Manual) Lymphocytes % (Manual) Monocytes % (Manual) Nucleated RBC % Seg Neutrophils # Seg Neutrophils # Man Lymphocytes # (Manual) Monocytes # (Manual) POC ABG pH 7.487 H POC ABG pCO2 33.3 L POC ABG pO2 120 H Sodium Potassium Chloride 92.4 L Carbon Dioxide 21 L BUN 138 H Creatinine 7.2 H Glucose 214 H POC Glucose 66 L Calcium Phosphorus Magnesium Direct Bilirubin ALT Alkaline Phosphatase CK-MB (CK-2) CK-MB (CK-2) Rel Index Troponin T C-Reactive Protein Total Protein Albumin Triglycerides LDL Cholesterol Direct HDL Cholesterol Lipase Crossmatch 09/05/19 09/05/19 09/05/19 05:20 06:10 08:18 WBC 17.9 H RBC 2.44 L Hgb 6.5 L Hct 20.5 L MCH 27 L RDW 18.1 H Lymph % (Auto) 10.0 L [place] % (Auto) [place] # 1.2 H Seg Neutrophils % 83.0 H Seg Neuts % (Manual) Lymphocytes % (Manual) Monocytes % (Manual) Nucleated RBC % Seg Neutrophils # 14.8 H Seg Neutrophils # Man Lymphocytes # (Manual) Monocytes # (Manual) POC ABG pH POC ABG pCO2 POC ABG pO2 Sodium Potassium Chloride Carbon Dioxide BUN Creatinine Glucose POC Glucose 252 H 291 H Calcium Phosphorus Magnesium Direct Bilirubin ALT Alkaline Phosphatase CK-MB (CK-2) CK-MB (CK-2) Rel Index Troponin T C-Reactive Protein Total Protein Albumin Triglycerides LDL Cholesterol Direct HDL Cholesterol Lipase Crossmatch 09/05/19 09/05/19 09/06/19 09:21 11:35 04:17 WBC 16.0 H RBC 2.94 L Hgb 8.2 L Hct 25.3 L MCH RDW 16.4 H Lymph % (Auto) 12.5 L [place] % (Auto) 10.1 H [place] # 1.6 H Seg Neutrophils % 77.0 H Seg Neuts % (Manual) Lymphocytes % (Manual) Monocytes % (Manual) Nucleated RBC % Seg Neutrophils # 12.3 H Seg Neutrophils # Man Lymphocytes # (Manual) Monocytes # (Manual) POC ABG pH POC ABG pCO2 POC ABG pO2 Sodium Potassium Chloride Carbon Dioxide BUN Creatinine Glucose POC Glucose 201 H Calcium Phosphorus Magnesium Direct Bilirubin ALT Alkaline Phosphatase CK-MB (CK-2) CK-MB (CK-2) Rel Index Troponin T C-Reactive Protein Total Protein Albumin Triglycerides LDL Cholesterol Direct HDL Cholesterol Lipase Crossmatch See Detail 09/06/19 09/06/19 09/06/19 04:17 05:52 07:51 WBC RBC Hgb Hct MCH RDW Lymph % (Auto) [place] % (Auto) [place] # Seg Neutrophils % Seg Neuts % (Manual) Lymphocytes % (Manual) Monocytes % (Manual) Nucleated RBC % Seg Neutrophils # Seg Neutrophils # Man Lymphocytes # (Manual) Monocytes # (Manual) POC ABG pH POC ABG pCO2 POC ABG pO2 Sodium Potassium 3.5 L Chloride 94.2 L Carbon Dioxide BUN 88 H Creatinine 5.2 H Glucose 198 H POC Glucose 207 H 278 H Calcium Phosphorus Magnesium Direct Bilirubin ALT 6 L Alkaline Phosphatase 151 H CK-MB (CK-2) CK-MB (CK-2) Rel Index Troponin T C-Reactive Protein Total Protein 5.2 L Albumin 1.5 L Triglycerides LDL Cholesterol Direct HDL Cholesterol Lipase Crossmatch 09/06/19 09/06/19 09/07/19 11:19 21:33 05:15 WBC RBC Hgb Hct MCH RDW Lymph % (Auto) [place] % (Auto) [place] # Seg Neutrophils % Seg Neuts % (Manual) Lymphocytes % (Manual) Monocytes % (Manual) Nucleated RBC % Seg Neutrophils # Seg Neutrophils # Man Lymphocytes # (Manual) Monocytes # (Manual) POC ABG pH POC ABG pCO2 POC ABG pO2 Sodium Potassium Chloride 91.5 L Carbon Dioxide 21 L BUN 119 H Creatinine 6.4 H Glucose 185 H POC Glucose 149 H 124 H Calcium Phosphorus Magnesium Direct Bilirubin ALT Alkaline Phosphatase CK-MB (CK-2) CK-MB (CK-2) Rel Index Troponin T C-Reactive Protein Total Protein Albumin Triglycerides LDL Cholesterol Direct HDL Cholesterol Lipase Crossmatch 09/07/19 09/07/19 05:15 07:32 WBC 14.7 H RBC 2.88 L Hgb 8.0 L Hct 24.5 L MCH RDW 17.4 H Lymph % (Auto) [place] % (Auto) 12.7 H [place] # 1.9 H Seg Neutrophils % 70.6 H Seg Neuts % (Manual) Lymphocytes % (Manual) Monocytes % (Manual) Nucleated RBC % Seg Neutrophils # 10.4 H Seg Neutrophils # Man Lymphocytes # (Manual) Monocytes # (Manual) POC ABG pH POC ABG pCO2 POC ABG pO2 Sodium Potassium Chloride Carbon Dioxide BUN Creatinine Glucose POC Glucose 111 H Calcium Phosphorus Magnesium Direct Bilirubin ALT Alkaline Phosphatase CK-MB (CK-2) CK-MB (CK-2) Rel Index Troponin T C-Reactive Protein Total Protein Albumin Triglycerides LDL Cholesterol Direct HDL Cholesterol Lipase Crossmatch
[2019-09-07] MEDS: MEROPENEM/NS 500 MG/50 ML 500 MG/50 ML BAG IV SCH (15:20)
--- NOTE | 2019-09-07 15:32 | Event Note ---
Date: 09/07/19 Case discussed with [place] transfer center nurse Ms Vidal, Patient can be downgraded to telemetry floor, sinus tachycardia secondary to Disease process underlying disease process. Patient may be transferred to [facility] When floor/telemetry bed is available. Discussed with patient's nurse and case management
[2019-09-07] MEDS ORDERED: DEXTROSE 50% IN WATER (25GM) 50 ML VIAL IV PRN (16:49)
--- NOTE | 2019-09-07 16:54 | Event Note ---
Date: 09/07/19 Patient had an episode of hypoglycemia We'll hold evening dose of Lantus, stat IV D50 IV D50 when necessary, sliding scale coverage Monitor the blood sugars and adjust the management as needed Discussed with patient's nurse
[2019-09-07] MEDS: DEXTROSE 50% IN WATER (25GM) 50 ML SYRINGE IV PRN ×2 (17:01→18:12)
--- NOTE | 2019-09-07 17:23 | Progress Note ---
Assessment and Plan Cultures: (from this admission) 09/03/19 blood culture - NGTD A/P: 29 yo F PMhx SLE, ESRD on HD, HTN, anemia admitted with placement issues and developed worsening necrotizing pancreatitis 1. Acute sepsis - present with fevers and leukocytosis, secondary to pancr eatitis 2. Necrotizing pancreatitis with pseudocysts - Continue meropenem for now, pending transfer to [place]. 3. ESRD on HD - renally dose antibiotics as appropriate Recs: -continue meropenem 500mg q24h - follow up blood cultures - pending transfer to [place]. Thank you for the consult, we will continue to follow. Almas Merino MD [facility] ([facility]) M: [phone] O: [phone] F: [phone] Subjective Date of service: 09/07/19 Principal diagnosis: pancreatitis Interval history: No acute change today. Pending transfer to [place]. Objective - Exam Narrative Exam: Constitutional: Alert, cooperative. No acute distress Head, Ears, Nose: Normocephalic, atraumatic. External ears, nose normal Eyes: Conjunctivae/corneas clear. No icterus. No ptosis. Neck: Supple, no meningeal signs Oral: dentition fair, no thrush Cardiovascular: S1, S2 normal. Respiratory: Good air entry, clear to auscultation bilaterally GI: Soft, non-tender; bowel sounds normal. No peritoneal signs. Musculoskeletal: No pedal edema, no cyanosis. Skin: No rash or abscess Hem/Lymphatic: No palpable cervical or supraclavicular nodes. No lymphangitis Psych: Mood ok. Affect normal Neurological: Awake, alert, oriented. No gross abnormality - Constitutional Vitals: Vital Signs Temp Pulse Resp BP Pulse Ox 99.4 F 137 H 33 H 111/64 96 09/07/19 16:00 09/07/19 10:35 09/07/19 10:33 09/07/19 10:35 09/07/19 09:28 Temperature -Last 24 Hours Temperature 99.4 F Temperature 99.4 F Temperature 99.7 F Temperature 99.1 F Temperature 98.9 F Temperature 99.0 F - Labs CBC & Chem 7: 09/07/19 05:15 09/07/19 05:15 Labs: Abnormal lab results 09/06/19 09/07/19 09/07/19 Range/Units 21:33 05:15 05:15 WBC 14.7 H (4.5-11.0) K/mm3 RBC 2.88 L (3.65-5.03) M/mm3 Hgb 8.0 L (10.1-14.3) gm/dl Hct 24.5 L (30.3-42.9) % RDW 17.4 H (13.2-15.2) % [place] % (Auto) 12.7 H (0.0-7.3) % [place] # 1.9 H (0.0-0.8) K/mm3 Seg Neutrophils % 70.6 H (40.0-70.0) % Seg Neutrophils # 10.4 H (1.8-7.7) K/mm3 Chloride 91.5 L (98-107) mmol/L Carbon Dioxide 21 L (22-30) mmol/L BUN 119 H (7-17) mg/dL Creatinine 6.4 H (0.7-1.2) mg/dL Glucose 185 H (65-100) mg/dL POC Glucose 124 H (70-105) 09/07/19 09/07/19 Range/Units 07:32 16:40 WBC (4.5-11.0) K/mm3 RBC (3.65-5.03) M/mm3 Hgb (10.1-14.3) gm/dl Hct (30.3-42.9) % RDW (13.2-15.2) % [place] % (Auto) (0.0-7.3) % [place] # (0.0-0.8) K/mm3 Seg Neutrophils % (40.0-70.0) % Seg Neutrophils # (1.8-7.7) K/mm3 Chloride (98-107) mmol/L Carbon Dioxide (22-30) mmol/L BUN (7-17) mg/dL Creatinine (0.7-1.2) mg/dL Glucose (65-100) mg/dL POC Glucose 111 H < 40 L (70-105)
[2019-09-07] MEDS ORDERED: DEXTROSE 50% IN WATER (25GM) 50 ML VIAL IV ONE (17:49)
--- NOTE | 2019-09-07 19:35 | Event Note ---
Date: 09/07/19 I got a call from [place] transfer center at 7pm today When I returned the call, transfer center could not connect me To the appropriate personnel to discuss about transfer of the patient. They said they would call back. I informed the patient's nurse and Signed off to covering hospitalist
[2019-09-07] MEDS ORDERED: FAT EMULSIONS 20% 250 ML IV SCH (20:00)
[2019-09-07] MEDS ORDERED: TOTAL PARENTERAL NUTRITION 1,560 ML IV SCH (20:00)
[2019-09-07] MEDS: HALOPERIDOL LACTATE 5 MG/1 ML INJ IM PRN (22:22)
[2019-09-07] MEDS: MELATONIN 5 MG TAB PO SCH (23:14)
[2019-09-08] MEDS: INSULIN LISPRO 100 UNIT/ML SUB-Q SCH ×5 (01:00→19:42)
[2019-09-08] MEDS: MORPHINE 2 MG/1 ML INJ IV PRN ×3 (05:17→15:52)
[2019-09-08] MEDS: METOPROLOL TARTRATE 5 MG/5 ML INJ IV PRN (05:18)
[2019-09-08] MEDS ORDERED: MORPHINE 2 MG/1 ML INJ IV NR (08:18)
[2019-09-08] MEDS ORDERED: SODIUM CHLORIDE 0.9% 100 ML IV PRN (08:23)
[2019-09-08] MEDS: INSULIN GLARGINE 100 UNITS/ML SUB-Q SCH ×2 (09:20→09:32)
[2019-09-08] MEDS: SEVELAMER CARBONATE 800 MG TAB PO SCH ×3 (09:31→15:53)
[2019-09-08] MEDS: OLANzapine ZYDIS 5 MG TAB PO SCH ×2 (09:32→21:28)
[2019-09-08] MEDS: CYANOCOBALAMIN (VIT B-12) 1000 MCG TAB PO SCH (09:32)
[2019-09-08] MEDS: hydrOXYzine HCL 25 MG TAB PO SCH (09:32)
[2019-09-08] MEDS: FOLIC ACID 1 MG TAB PO SCH (09:32)
[2019-09-08] MEDS: HYDROXYCHLOROQUINE 200 MG TAB PO SCH (09:32)
[2019-09-08] MEDS: LOSARTAN 50 MG TAB PO SCH (09:32)
[2019-09-08] MEDS: PANTOPRAZOLE 40 MG INJ IV SCH ×2 (09:33→21:26)
[2019-09-08] MEDS: MYCOPHENOLATE 500 MG TAB PO SCH (09:33)
--- NOTE | 2019-09-08 09:58 | Progress Note ---
Assessment and Plan 1. ESRD: On maintenance hemodialysis three times a week, TTS schedule. Last dialyzed 09/05. HD today. 2. FEN: Hyperkalemia, improved. Metabolic acidosis, improved. Monitor lytes. 3. Anemia: Epogen with HD. S/p PRBC. 4. Seizures: On Keppra. 5. Metabolic encephalopathy. 6. Acute pancreatitis: CT abdomen showed worsening pancreatitis. Gen. Surgery recommended pancreatic drain, but pt refused. On PPN / TPN. 7. Tachycardia: Followed by Cards. 8. History of lupus: On Cellcept and Plaquenil. 9. Hyperglycemia. 10. Psychosis. 11. Deconditioning. Examination: General appearance: well-developed, appears stated age, not in distress HEENT: ATNC, BORA Neck: trachea midline Respiratory: Clear to Ascultation Heart: regular, S1S2, no murmur, tachycardia Gastrointestinal: soft, distended, mild tenderness over the L side, normoactive bowel sound Integumentary: no rash, warm and dry Neurologic: alert, follows some command, answers questions, confusion noted Musculoskeletal: trace LE edema Hemodialysis access: L arm AVG Subjective Date of service: 09/08/19 Principal diagnosis: pancreatitis Interval history: Patient was seen and examined at the bedside. Sitter / RN at the bedside. Objective - Vital Signs Vital signs: Vital Signs - 12hr 09/07/19 09/07/19 09/07/19 22:00 22:07 22:23 Temperature Pulse Rate 121 H 125 H Pulse Rate [ From Monitor] Respiratory 30 H Rate Blood Pressure 140/72 O2 Sat by Pulse 96 Oximetry 09/07/19 09/07/19 09/08/19 23:00 23:57 00:00 Temperature 97.6 F Pulse Rate 112 H 116 H Pulse Rate [ 123 H From Monitor] Respiratory 21 17 Rate Blood Pressure 140/72 133/81 O2 Sat by Pulse 96 95 Oximetry 09/08/19 09/08/19 09/08/19 00:02 01:00 02:00 Temperature Pulse Rate 116 H 120 H 126 H Pulse Rate [ From Monitor] Respiratory 22 23 37 H Rate Blood Pressure 133/81 133/81 133/81 O2 Sat by Pulse 94 95 97 Oximetry 09/08/19 09/08/19 09/08/19 03:00 04:00 05:00 Temperature 99.3 F Pulse Rate 130 H 136 H 139 H Pulse Rate [ 136 H From Monitor] Respiratory 22 22 27 H Rate Blood Pressure 133/81 132/78 132/78 O2 Sat by Pulse 95 95 63 L Oximetry 09/08/19 09/08/19 09/08/19 05:18 05:44 06:00 Temperature Pulse Rate 140 H 140 H 127 H Pulse Rate [ From Monitor] Respiratory 24 Rate Blood Pressure 132/78 O2 Sat by Pulse 100 Oximetry 09/08/19 09/08/19 09/08/19 06:26 08:00 09:32 Temperature 100.7 F H 100.1 F H Pulse Rate 126 H Pulse Rate [ From Monitor] Respiratory Rate Blood Pressure 135/85 O2 Sat by Pulse Oximetry - Lab 09/07/19 05:15 09/08/19 09:50 Most recent lab results Calcium 8.6 mg/dL (8.4-10.2) 09/07/19 05:15 Phosphorus 5.30 mg/dL (2.5-4.5) H 09/04/19 04:40 Magnesium 2.00 mg/dL (1.7-2.3) 09/05/19 03:40 Medications & Allergies - Medications Allergies/Adverse Reactions: Allergies lactose Adverse Reaction (Verified 07/29/19 08:16) Unknown Home Medications: Home Medications Medication Instructions Recorded Confirmed Last Taken Type ALBUTEROL NEB's [Proventil 0.083% 2.5 mg IH QID PRN 07/26/19 08/21/19 07/25/19 History NEBS] Labetalol HCl [Labetalol 300mg TAB] 300 mg PO Q12H 07/26/19 08/21/19 07/25/19 History Mirtazapine 7.5 mg PO QDAY 07/26/19 08/21/19 07/25/19 History Pantoprazole [Protonix TAB] 40 mg PO BID 07/26/19 08/21/19 08/21/19 15:56 History Sevelamer HCl [Renagel] 800 mg PO BIDWM 07/26/19 08/21/19 07/25/19 History Acetaminophen [Acetaminophen TAB] 650 mg PO Q6H PRN tablet 08/18/19 08/21/19 Unknown Rx Cyanocobalamin (Vitamin B-12) 1,000 mcg PO QDAY #20 08/18/19 08/21/19 Unknown Rx [Vitamin B-12] Epoetin Mitch 20,000 Unit [Procrit] 20,000 unit SUB-Q FAN PRN vial 08/18/19 08/21/19 Unknown Rx Folic Acid [Folvite] 1 mg PO QDAY #30 08/18/19 08/21/19 Unknown Rx Gabapentin 300 mg PO 3XW #60 08/18/19 08/21/19 08/21/19 15:58 Rx Hydroxychloroquine [Plaquenil] 200 mg PO QDAY #30 08/18/19 08/21/19 Unknown Rx Insulin Glargine [Lantus VIAL] 20 units SUB-Q QHS #1 units 08/18/19 08/21/19 08/21/19 15:57 Rx Labetalol [Labetalol 200mg TAB] 300 mg PO BID #60 tablet 08/18/19 08/21/19 Unknown Rx Losartan [Cozaar] 50 mg PO QDAY #30 08/18/19 08/21/19 Unknown Rx Mycophenolate [Cellcept] 500 mg PO QDAY #30 08/18/19 08/21/19 08/21/19 15:56 Rx Pantoprazole [Protonix TAB] 40 mg PO BID #60 tablet 08/18/19 08/21/19 08/21/19 15:55 Rx Sevelamer Carbonate [Renvela] 800 mg PO 0730,1630 #30 tablet 08/18/19 08/21/19 08/21/19 15:56 Rx Total Parenteral Nutrition [TPN 12 ml IV DAILY@2000 ml 08/18/19 08/21/19 08/21/19 15:55 Rx Adult] hydrOXYzine HCL [Atarax] 50 mg PO QDAY #30 08/18/19 08/21/19 Unknown Rx levETIRAcetam [Keppra TAB] 500 mg PO BID #60 tablet 08/18/19 08/21/19 08/21/19 15:54 Rx oxyCODONE /ACETAMINOPHEN [Percocet 1 tab PO Q8H PRN #30 tablet 08/18/19 08/21/19 Unknown Rx 5/325 mg] predniSONE [Deltasone] 20 mg PO QDAY #30 08/18/19 08/21/19 Unknown Rx Active Medications: Generic Name Dose Route Start Last Admin Trade Name Freq PRN Reason Stop Dose Admin Acetaminophen 650 mg 08/19/19 22:44 09/03/19 20:59 Tylenol PO 650 mg Q4H PRN Administration Pain MILD(1-3)/Fever >100.5/PORTER Acetaminophen 650 mg 08/26/19 13:00 09/03/19 04:11 Tylenol [place] 650 mg Q6H PRN Administration Pain, Mild (1-3) Albuterol 2.5 mg 08/20/19 09:00 09/07/19 18:25 Proventil IH 2.5 mg QID PRN Administration Wheezing Clonidine HCl 0.3 mg 09/03/19 14:00 09/03/19 19:49 Catapres-Tts Patch TD Not Given Sa JOEL Cyanocobalamin 1,000 mcg 08/20/19 10:00 09/08/19 09:32 Vitamin B-12 PO 1,000 mcg QDAY JOEL Administration Dextrose 0 ml 08/19/19 22:43 09/07/19 18:12 D50w (25gm) Syringe IV 50 ml Q30MIN PRN Administration Hypoglycemia Diphenhydramine HCl 25 mg 08/22/19 22:22 09/07/19 22:23 Benadryl IV 25 mg Q6H PRN Administration Itching Epoetin Mitch 20,000 unit 08/20/19 09:17 09/05/19 12:00 Procrit SUB-Q 20,000 unit FAN PRN Administration hemodialysis Folic Acid 1 mg 08/20/19 10:00 09/08/19 09:32 Folvite PO 1 mg QDAY JOEL Administration Haloperidol Lactate 5 mg 09/02/19 11:00 09/07/19 22:22 Haldol IM 5 mg Q6H PRN Administration Agitation Hydroxychloroquine Sulfate 200 mg 08/20/19 10:00 09/08/19 09:32 Plaquenil PO 200 mg QDAY JOEL Administration Hydroxyzine HCl 50 mg 08/20/19 10:00 09/08/19 09:32 Atarax PO 50 mg QDAY JOEL Administration Levetiracetam 750 mg/ Dextrose 107.5 mls @ 107.5 mls/hr 08/26/19 12:30 09/07/19 23:19 IV 400 mls/hr Q12HR JOEL Administration Meropenem 500 mg in 50 mls @ 50 mls/hr 09/04/19 14:00 09/07/19 15:20 Merrem/Ns 500 Mg/50 Ml IV 50 mls/hr Q24H JOEL Administration Sodium Chloride 100 mls @ 999 mls/hr 09/08/19 08:23 Nacl 0.9% IV FAN PRN Hypotension Insulin Glargine 10 units 09/02/19 11:30 09/07/19 08:44 Lantus SUB-Q 10 units QAMDIAB JOEL Administration Insulin Human Lispro 0 unit 09/07/19 12:00 09/08/19 05:16 Humalog SUB-Q 3 unit Q6HR JOEL Administration Protocol Losartan Potassium 50 mg 08/20/19 10:00 09/08/19 09:32 Cozaar PO 50 mg QDAY JOEL Administration Melatonin 5 mg 08/25/19 22:00 09/07/19 23:14 Melatonin PO Not Given QHS JOEL Metoclopramide HCl 5 mg 09/01/19 13:00 09/07/19 22:22 Reglan IV 5 mg Q6H PRN Administration Nausea And Vomiting Metoprolol Tartrate 5 mg 09/01/19 18:48 09/08/19 05:18 Metoprolol IV 5 mg Q6HR PRN Administration Hypertension Morphine Sulfate 1 mg 09/02/19 11:30 09/08/19 05:17 Morphine IV 1 mg Q4H PRN Administration Pain , Severe (7-10) Mycophenolate Mofetil 500 mg 08/20/19 10:00 09/08/19 09:33 Cellcept PO 500 mg QDAY JOEL Administration Olanzapine 5 mg 09/02/19 13:00 09/07/19 23:14 Zyprexa Zydis PO Not Given BID JOEL Ondansetron HCl 4 mg 08/21/19 13:00 09/07/19 10:11 Zofran IV 4 mg Q4H PRN Administration Nausea And Vomiting Pantoprazole Sodium 40 mg 09/04/19 22:00 09/07/19 22:22 Protonix IV 40 mg BID JOEL Administration Promethazine HCl 25 mg 08/21/19 12:46 Phenergan [place] Q6H PRN Nausea And Vomiting Sevelamer Carbonate 800 mg 08/20/19 16:30 09/08/19 09:31 Renvela PO 800 mg 0730,1630 JOEL Administration Sodium Chloride 10 ml 08/20/19 10:00 09/07/19 23:19 Sodium Chloride Flush Syringe 10 Ml IV 10 ml BID JOEL Administration Sodium Chloride 10 ml 08/19/19 22:44 09/05/19 17:22 Sodium Chloride Flush Syringe 10 Ml IV 10 ml PRN PRN Administration LINE FLUSH
[2019-09-08 10:15] LABS: Calcium 8.7 mg/dL (8.4-10.2)
--- NOTE | 2019-09-08 10:41 | Progress Note ---
Assessment and Plan Assessment and plan: 29-year-old woman with lupus, end-stage renal disease, hypertension, anemia who was discharged from the hospital after being treated for necrotizing pancreatitis, sepsis and right labial abscess. Patient was discharged home with TPN with home health care but Family was unable to care for her and then b rought her back to the hospital on next day of her discharge. She is wheelchair-bound. Had intermittent seizures because of noncompliance. 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 Has severe anemia and s/p 2 units PRBC transfusion. Continue to have Ps ychosis with delusions,Psych evaluated.Family not willing to take her back, difficult placement. Patient developed severe abd pain CT A/P 08/31/19 worsening pancreatitis. multiple pseudocysts, Evaluated by general surgeon and GI. Plan to transfer to [place] for higher level of care -possible GI cinthia luation/hepatobiliary GI consultation, possible surgical intervention Patient was accepted by [facility], however did not have ICU beds, has had downgraded the patient to telemetry, requested floor beds. --Sinus tachycardia; due to underlying disease process Treat Underlying cause, supportive care --Multiple Pseudocysts: N.p.o., IV fluids Supportive care, patient refused NG tube Continue TPN, surg following Rec transf to [facility] for GI/hepatobiliary GI evaluation --Necrotizing pancreatitis: TPN, IV fluids, supportive care --Acute hypoxic respiratory failure Due to volume overload ,worsening necrotizing pancreatitis Oxygen titrate O2 sats to more than 90%, supportive care --Sirs vs sepsis? with tachycardia, elevated white count likely from worsening necrotizing pancreatitis - infected? NPO, IV hydration with TPN, meropenem --Accerelated HTN with tachycardia Continue current antihypertensives and as needed medications --Severe Anemia of chronic disease; improved s/p 3 unit of PRBC transfusion during dialysis, Procrit. monitor H&H and transfuse as needed --Delusions: Psych following Her family has reported that she has been having delusions and she has been paranoid and cannot take care of her and requested placement Psych following continue current management --Acute metabolic encephalopathy MRI, MRA brain negative, lupus encephalopathy ruled out --Severe malnutrition, Continue TPN, dietary following --End-stage renal disease, Continue dialysis --H/O SLE: Continue mycophenolate and Plaquenil, steroid IV --Non-ST elevation TN Type 2. due to end-stage renal disease Cardiology evaluated continue current management --Diabetes type 2, uncontrolled Accu-Chek sliding scale coverage and insulin long acting --DVT prophylaxis SCD --Chronic debility; PT, A[place]ing placement in [place] [facility] Patient is critically ill with very poor prognosis. Patient is awaiting transfer to [facility]. Waiting for callback from [place] with bed assignment. Transfer the patient out of IMCU to telemetry today Critical care time 31 minutes Addendum;I Called [place] transfer center again today and talked to the transfer center Nurse. Transfer center nurse reports that patient needs to be in medical/telemetry floor 24 hours prior to transfer. I will call back transfer center tomorrow for possible transfer History Interval history: Patient seen and examined medical records reviewed Patient complaints of abdominal pain, sinus tachycardia In mild distress, vital signs reviewed Hospitalist Physical - Constitutional Vitals: Temp Pulse Resp BP Pulse Ox 100.1 F H 126 H 24 135/85 100 09/08/19 08:00 09/08/19 09:32 09/08/19 06:00 09/08/19 09:32 09/08/19 06:00 General appearance: Present: mild distress, cachectic, disheveled - EENT Eyes: Present: PERRL, EOM intact - Neck Neck: Present: supple, normal ROM - Respiratory Respiratory effort: normal Respiratory: bilateral: diminished, rales, negative: rhonchi, wheezing - Cardiovascular Rhythm: regular Heart Sounds: Present: S1 & S2 (tachycardia) - Extremities Extremities: no ischemia, No edema - Abdominal General gastrointestinal: soft, non-tender, non-distended, normal bowel sounds - Integumentary Integumentary: Present: clear, warm - Psychiatric Psychiatric: appropriate mood/affect, other (confused at times) - Neurologic Neurologic: moves all extremities Results - Labs CBC & Chem 7: 09/07/19 05:15 09/08/19 09:50 Labs: Laboratory Last Values WBC 14.7 K/mm3 (4.5-11.0) H 09/07/19 05:15 RBC 2.88 M/mm3 (3.65-5.03) L 09/07/19 05:15 Hgb 8.0 gm/dl (10.1-14.3) L 09/07/19 05:15 Hct 24.5 % (30.3-42.9) L 09/07/19 05:15 MCV 85 fl (79-97) 09/07/19 05:15 MCH 28 pg (28-32) 09/07/19 05:15 MCHC 33 % (30-34) 09/07/19 05:15 RDW 17.4 % (13.2-15.2) H 09/07/19 05:15 Plt Count 289 K/mm3 (140-440) 09/07/19 05:15 Lymph % (Auto) 16.3 % (13.4-35.0) 09/07/19 05:15 Coke % (Auto) 12.7 % (0.0-7.3) H 09/07/19 05:15 Eos % (Auto) 0.3 % (0.0-4.3) 09/07/19 05:15 Baso % (Auto) 0.1 % (0.0-1.8) 09/07/19 05:15 Lymph # 2.4 K/mm3 (1.2-5.4) 09/07/19 05:15 Coke # 1.9 K/mm3 (0.0-0.8) H 09/07/19 05:15 Eos # 0.0 K/mm3 (0.0-0.4) 09/07/19 05:15 Baso # 0.0 K/mm3 (0.0-0.1) 09/07/19 05:15 Add Manual Diff Complete 09/03/19 04:33 Total Counted 100 09/03/19 04:33 Seg Neutrophils % 70.6 % (40.0-70.0) H 09/07/19 05:15 Seg Neuts % (Manual) 94.0 % (40.0-70.0) H 09/03/19 04:33 Band Neutrophils % 0 % 09/03/19 04:33 Lymphocytes % (Manual) 4.0 % (13.4-35.0) L 09/03/19 04:33 Reactive Lymphs % (Man) 0 % 09/03/19 04:33 Monocytes % (Manual) 1.0 % (0.0-7.3) 09/03/19 04:33 Eosinophils % (Manual) 0 % (0.0-4.3) 09/03/19 04:33 Basophils % (Manual) 0 % (0.0-1.8) 09/03/19 04:33 Metamyelocytes % 1.0 % 09/03/19 04:33 Myelocytes % 0 % 09/03/19 04:33 Promyelocytes % 0 % 09/03/19 04:33 Blast Cells % 0 % 09/03/19 04:33 Nucleated RBC % Not Reportable 09/03/19 04:33 Seg Neutrophils # 10.4 K/mm3 (1.8-7.7) H 09/07/19 05:15 Seg Neutrophils # Man 20.9 K/mm3 (1.8-7.7) H 09/03/19 04:33 Band Neutrophils # 0.0 K/mm3 09/03/19 04:33 Lymphocytes # (Manual) 0.9 K/mm3 (1.2-5.4) L 09/03/19 04:33 Abs React Lymphs (Man) 0.0 K/mm3 09/03/19 04:33 Monocytes # (Manual) 0.2 K/mm3 (0.0-0.8) 09/03/19 04:33 Eosinophils # (Manual) 0.0 K/mm3 (0.0-0.4) 09/03/19 04:33 Basophils # (Manual) 0.0 K/mm3 (0.0-0.1) 09/03/19 04:33 Metamyelocytes # 0.2 K/mm3 09/03/19 04:33 Myelocytes # 0.0 K/mm3 09/03/19 04:33 Promyelocytes # 0.0 K/mm3 09/03/19 04:33 Blast Cells # 0.0 K/mm3 09/03/19 04:33 WBC Morphology Not Reportable 09/03/19 04:33 Hypersegmented Neuts Not Reportable 09/03/19 04:33 Hyposegmented Neuts Not Reportable 09/03/19 04:33 Hypogranular Neuts Not Reportable 09/03/19 04:33 Smudge Cells Not Reportable 09/03/19 04:33 Toxic Granulation Not Reportable 09/03/19 04:33 Toxic Vacuolation Not Reportable 09/03/19 04:33 Dohle Bodies Not Reportable 09/03/19 04:33 Pelger-Huet Anomaly Not Reportable 09/03/19 04:33 Rose Rods Not Reportable 09/03/19 04:33 Platelet Estimate Consistent w auto 09/03/19 04:33 Clumped Platelets Not Reportable 09/03/19 04:33 Plt Clumps, EDTA Not Reportable 09/03/19 04:33 Large Platelets Not Reportable 09/03/19 04:33 Giant Platelets Not Reportable 09/03/19 04:33 Platelet Satelliting Not Reportable 09/03/19 04:33 Plt Morphology Comment Not Reportable 09/03/19 04:33 RBC Morphology Not Reportable 09/03/19 04:33 Dimorphic RBCs Not Reportable 09/03/19 04:33 Polychromasia Not Reportable 09/03/19 04:33 Hypochromasia Not Reportable 09/03/19 04:33 Poikilocytosis 1+ 09/03/19 04:33 Anisocytosis 1+ 09/03/19 04:33 Microcytosis Few 09/03/19 04:33 Macrocytosis Rare 09/03/19 04:33 Spherocytes Not Reportable 09/03/19 04:33 Pappenheimer Bodies Not Reportable 09/03/19 04:33 Sickle Cells Not Reportable 09/03/19 04:33 Target Cells Not Reportable 09/03/19 04:33 Tear Drop Cells Rare 09/03/19 04:33 Ovalocytes Not Reportable 09/03/19 04:33 Helmet Cells Not Reportable 09/03/19 04:33 Benavidez-[place] Bodies Not Reportable 09/03/19 04:33 Helper Rings Not Reportable 09/03/19 04:33 Eads Cells Not Reportable 09/03/19 04:33 Bite Cells Not Reportable 09/03/19 04:33 Crenated Cell Not Reportable 09/03/19 04:33 Elliptocytes Few 09/03/19 04:33 Acanthocytes (Spur) Not Reportable 09/03/19 04:33 Rouleaux Not Reportable 09/03/19 04:33 Hemoglobin C Crystals Not Reportable 09/03/19 04:33 Schistocytes Not Reportable 09/03/19 04:33 Malaria parasites Not Reportable 09/03/19 04:33 Dinesh Bodies Not Reportable 09/03/19 04:33 Hem Pathologist Commnt No 09/03/19 04:33 POC ABG pH 7.487 (7.35-7.45) H 09/04/19 18:49 POC ABG pCO2 33.3 (35-45) L 09/04/19 18:49 POC ABG pO2 120 (80-105) H 09/04/19 18:49 POC ABG HCO3 25.2 (22-26 mml/L) 09/04/19 18:49 POC ABG Total CO2 26 (23-27mmol/L) 09/04/19 18:49 POC ABG O2 Sat 99 09/04/19 18:49 POC ABG Base Excess 2 ((-2) - (+3)mmol/L) 09/04/19 18:49 FiO2 24 % 09/04/19 18:49 Sodium 137 mmol/L (137-145) 09/08/19 09:50 Potassium 4.2 mmol/L (3.6-5.0) 09/08/19 09:50 Chloride 89.8 mmol/L (98-107) L 09/08/19 09:50 Carbon Dioxide 22 mmol/L (22-30) 09/08/19 09:50 Anion Gap 29 mmol/L 09/08/19 09:50 BUN 138 mg/dL (7-17) H 09/08/19 09:50 Creatinine 7.5 mg/dL (0.7-1.2) H 09/08/19 09:50 Estimated GFR 8 ml/min 09/08/19 09:50 BUN/Creatinine Ratio 18 % 09/08/19 09:50 Glucose 132 mg/dL (65-100) H 09/08/19 09:50 POC Glucose 179 (70-105) H 09/08/19 09:01 Calcium 8.7 mg/dL (8.4-10.2) 09/08/19 09:50 Phosphorus 5.30 mg/dL (2.5-4.5) H 09/04/19 04:40 Magnesium 2.00 mg/dL (1.7-2.3) 09/05/19 03:40 Total Bilirubin 0.50 mg/dL (0.1-1.2) 09/06/19 04:17 Direct Bilirubin 0.3 mg/dL (0-0.2) H 09/04/19 04:40 Indirect Bilirubin 0.1 mg/dL 09/04/19 04:40 AST 14 units/L (5-40) 09/06/19 04:17 ALT 6 units/L (7-56) L 09/06/19 04:17 Alkaline Phosphatase 151 units/L (35-129) H 09/06/19 04:17 Total Creatine Kinase 42 units/L (30-135) 08/20/19 10:38 CK-MB (CK-2) 4.5 ng/mL (0.0-4.0) H 08/20/19 10:38 CK-MB (CK-2) Rel Index 10.7 (0-4) H 08/20/19 10:38 Troponin T 0.323 ng/mL (0.00-0.029) H* 08/20/19 10:38 C-Reactive Protein 26.00 mg/dL (0.00-1.30) H 09/02/19 09:15 Total Protein 5.2 g/dL (6.3-8.2) L 09/06/19 04:17 Albumin 1.5 g/dL (3.9-5) L 09/06/19 04:17 Albumin/Globulin Ratio 0.4 % 09/06/19 04:17 Triglycerides 132 mg/dL (2-149) 08/26/19 12:33 Cholesterol 83 mg/dL (50-199) 08/19/19 20:48 LDL Cholesterol Direct 34 mg/dL (50-130) L 08/19/19 20:48 HDL Cholesterol 19 mg/dL (40-59) L 08/19/19 20:48 Cholesterol/HDL Ratio 4.36 % 08/19/19 20:48 Lipase 212 units/L (13-60) H 09/02/19 09:15 Hepatitis A IgM Ab Non-reactive (NonReactive) 08/22/19 22:30 Hep Bs Antigen Non-reactive (Negative) 08/22/19 22:30 Hep B Core IgM Ab Non-reactive (NonReactive) 08/22/19 22:30 Hepatitis C Antibody Non-reactive (NonReactive) 08/22/19 22:30 Blood Type A POSITIVE 09/05/19 09:21 Antibody Screen Negative 09/05/19 09:21 Crossmatch See Detail 09/05/19 09:21 Active Medications - Current Medications Current Medications: Generic Name Dose Route Start Last Admin Trade Name Freq PRN Reason Stop Dose Admin Acetaminophen 650 mg 08/19/19 22:44 09/03/19 20:59 Tylenol PO 650 mg Q4H PRN Administration Pain MILD(1-3)/Fever >100.5/PORTER Acetaminophen 650 mg 08/26/19 13:00 09/03/19 04:11 Tylenol PA 650 mg Q6H PRN Administration Pain, Mild (1-3) Albuterol 2.5 mg 08/20/19 09:00 09/07/19 18:25 Proventil IH 2.5 mg QID PRN Administration Wheezing Clonidine HCl 0.3 mg 09/03/19 14:00 09/03/19 19:49 Catapres-Tts Patch TD Not Given Sa JOEL Cyanocobalamin 1,000 mcg 08/20/19 10:00 09/08/19 09:32 Vitamin B-12 PO 1,000 mcg QDAY JOEL Administration Dextrose 0 ml 08/19/19 22:43 09/07/19 18:12 D50w (25gm) Syringe IV 50 ml Q30MIN PRN Administration Hypoglycemia Diphenhydramine HCl 25 mg 08/22/19 22:22 09/07/19 22:23 Benadryl IV 25 mg Q6H PRN Administration Itching Epoetin Mitch 20,000 unit 08/20/19 09:17 09/05/19 12:00 Procrit SUB-Q 20,000 unit FAN PRN Administration hemodialysis Folic Acid 1 mg 08/20/19 10:00 09/08/19 09:32 Folvite PO 1 mg QDAY JOEL Administration Haloperidol Lactate 5 mg 09/02/19 11:00 09/07/19 22:22 Haldol IM 5 mg Q6H PRN Administration Agitation Hydroxychloroquine Sulfate 200 mg 08/20/19 10:00 09/08/19 09:32 Plaquenil PO 200 mg QDAY JOEL Administration Hydroxyzine HCl 50 mg 08/20/19 10:00 09/08/19 09:32 Atarax PO 50 mg QDAY JOEL Administration Levetiracetam 750 mg/ Dextrose 107.5 mls @ 107.5 mls/hr 08/26/19 12:30 09/07/19 23:19 IV 400 mls/hr Q12HR JOEL Administration Meropenem 500 mg in 50 mls @ 50 mls/hr 09/04/19 14:00 09/07/19 15:20 Merrem/Ns 500 Mg/50 Ml IV 50 mls/hr Q24H JOEL Administration Sodium Chloride 100 mls @ 999 mls/hr 09/08/19 08:23 Nacl 0.9% IV FAN PRN Hypotension Insulin Glargine 10 units 09/02/19 11:30 09/07/19 08:44 Lantus SUB-Q 10 units QAMDIAB JOEL Administration Insulin Human Lispro 0 unit 09/07/19 12:00 09/08/19 05:16 Humalog SUB-Q 3 unit Q6HR JOEL Administration Protocol Losartan Potassium 50 mg 08/20/19 10:00 09/08/19 09:32 Cozaar PO 50 mg QDAY JOEL Administration Melatonin 5 mg 08/25/19 22:00 09/07/19 23:14 Melatonin PO Not Given QHS JOEL Metoclopramide HCl 5 mg 09/01/19 13:00 09/07/19 22:22 Reglan IV 5 mg Q6H PRN Administration Nausea And Vomiting Metoprolol Tartrate 5 mg 09/01/19 18:48 09/08/19 05:18 Metoprolol IV 5 mg Q6HR PRN Administration Hypertension Morphine Sulfate 1 mg 09/02/19 11:30 09/08/19 05:17 Morphine IV 1 mg Q4H PRN Administration Pain , Severe (7-10) Mycophenolate Mofetil 500 mg 08/20/19 10:00 09/08/19 09:33 Cellcept PO 500 mg QDAY JOEL Administration Olanzapine 5 mg 09/02/19 13:00 09/07/19 23:14 Zyprexa Zydis PO Not Given BID JOEL Ondansetron HCl 4 mg 08/21/19 13:00 09/07/19 10:11 Zofran IV 4 mg Q4H PRN Administration Nausea And Vomiting Pantoprazole Sodium 40 mg 09/04/19 22:00 09/07/19 22:22 Protonix IV 40 mg BID JOEL Administration Promethazine HCl 25 mg 08/21/19 12:46 Phenergan PA Q6H PRN Nausea And Vomiting Sevelamer Carbonate 800 mg 08/20/19 16:30 09/08/19 09:31 Renvela PO 800 mg 0730,1630 JOEL Administration Sodium Chloride 10 ml 08/20/19 10:00 09/07/19 23:19 Sodium Chloride Flush Syringe 10 Ml IV 10 ml BID JOEL Administration Sodium Chloride 10 ml 08/19/19 22:44 09/05/19 17:22 Sodium Chloride Flush Syringe 10 Ml IV 10 ml PRN PRN Administration LINE FLUSH Nutrition/Malnutrition Assess - Dietary Evaluation Nutrition/Malnutrition Findings: Nutrition Notes Start: 08/20/19 10:47 Freq: Status: Active Protocol: Document 09/07/19 09:25 RS (Rec: 09/07/19 09:40 RS [email or web address]) Co-Sign 09/07/19 09:25 LP Nutrition Notes Initial or Follow up Reassessment Current Diagnosis CKD (stage V CKD),Diabetes, Hypertension Other Pertinent Diagnosis Necrotizing pancreatitis, Encephalopathy, SLE Current Diet 12hr cyclic CPN (80/140/80) Labs/Tests Reviewed Pertinent Medications Reviewed Height 5 ft 4 in Weight 72 kg [place] Body Weight (kg) 54.54 BMI 27.2 Subjective/Other Information CPN. Per RN report pt consumed half a turkey sandiwch last PM. No reports of N/V/D last PM but pt reports nausea this AM. Will continue to monitor. Percent of energy/protein needs met: 53% kcal and 100% PRO Burn Absent Trauma Absent GI Symptoms Nausea Minimum of two criteria No #1 Nutrition Diagnosis Inadequate oral intake Diagnosis Progress(for reassessment Continues documentation) Is patient on ventilator? No Is Patient Ambulatory and/or Out of Bed No REE-([facility]-confined to bed) 1752.016 Calculation Used for Recommendations [facility] Additional Notes Protein Needs >1.2g/kg: >86g/ day Fluid needs 1-1.5L/day Nutrition Intervention Change Diet Order: Continue CPN Nutrition Support: Continue 12hr cyclic CPN: MVI, Lipid, Osmolality: 1198. Kcal 1,410 Protein (gm) 100 Carbohydrates (gm) 150 Fat (gm) 50 Fluid (mL) 1,810 Fiber (gm) 0 Goal #1 Meet at least 75% of calorie and protein needs via CPN Anticipated Discharge Needs: Home cyclic CPN Follow-Up By: 09/08/19 Additional Comments Labs in AM: BMP
--- NOTE | 2019-09-08 12:59 | Progress Note ---
Assessment and Plan Cultures: (from this admission) 09/03/19 blood culture - NGTD A/P: 29 yo F PMhx SLE, ESRD on HD, HTN, anemia admitted with placement issues and developed worsening necrotizing pancreatitis 1. Acute sepsis - present with fevers and leukocytosis, secondary to pancr eatitis. Patient pending transfer to [place] for posible debridement and source control of the pancreatitis, which would likely help ameliorate the fevers 2. Necrotizing pancreatitis with pseudocysts - Continue meropenem for now, pending transfer to [place]. 3. ESRD on HD - renally dose antibiotics as appropriate Recs: -continue meropenem 500mg q24h - follow up blood cultures - pending transfer to [place]. Thank you for the consult, we will continue to follow. Almas Merino MD [facility] M: [phone] O: [phone] F: [phone] Subjective Date of service: 09/08/19 Principal diagnosis: pancreatitis Interval history: No acute change today. Pending transfer to [place]. Febrile today Objective - Exam Narrative Exam: Constitutional: Alert, cooperative. No acute distress Head, Ears, Nose: Normocephalic, atraumatic. External ears, nose normal Eyes: Conjunctivae/corneas clear. No icterus. No ptosis. Neck: Supple, no meningeal signs Oral: dentition fair, no thrush Cardiovascular: S1, S2 normal. Respiratory: Good air entry, clear to auscultation bilaterally GI: Soft, non-tender; bowel sounds normal. No peritoneal signs. Musculoskeletal: No pedal edema, no cyanosis. Skin: No rash or abscess Hem/Lymphatic: No palpable cervical or supraclavicular nodes. No lymphangitis Psych: Mood ok. Affect normal Neurological: Awake, alert, oriented. No gross abnormality - Constitutional Vitals: Vital Signs Temp Pulse Resp BP Pulse Ox 100.4 F H 140 H 24 113/46 100 09/08/19 10:30 09/08/19 12:15 09/08/19 10:30 09/08/19 12:15 09/08/19 06:00 Temperature -Last 24 Hours Temperature 100.4 F Temperature 100.1 F Temperature 100.7 F Temperature 99.3 F Temperature 97.6 F Temperature 99.0 F Temperature 99.4 F - Labs CBC & Chem 7: 09/07/19 05:15 09/08/19 09:50 Labs: Abnormal lab results 09/07/19 09/07/19 09/07/19 Range/Units 11:17 16:40 17:48 Chloride (98-107) mmol/L BUN (7-17) mg/dL Creatinine (0.7-1.2) mg/dL Glucose (65-100) mg/dL POC Glucose 155 H < 40 L < 40 L (70-105) 09/07/19 09/08/19 09/08/19 Range/Units 22:17 05:18 07:22 Chloride (98-107) mmol/L BUN (7-17) mg/dL Creatinine (0.7-1.2) mg/dL Glucose (65-100) mg/dL POC Glucose 129 H 204 H 278 H (70-105) 09/08/19 09/08/19 Range/Units 09:01 09:50 Chloride 89.8 L (98-107) mmol/L BUN 138 H (7-17) mg/dL Creatinine 7.5 H (0.7-1.2) mg/dL Glucose 132 H (65-100) mg/dL POC Glucose 179 H (70-105)
[2019-09-08] MEDS ORDERED: SODIUM CHLORIDE*PRIMING MACHINE ONLY FOR DIALYSIS MC ONE (13:07)
[2019-09-08] MEDS: EPOETIN ALFA 20,000 UNIT/1 ML INJ SUB-Q PRN (13:24)
[2019-09-08] MEDS: levETIRAcetam 750 MG in DEXTROSE 5% IN WATER 100 ML IV SCH ×2 (14:47→21:26)
[2019-09-08] MEDS: MEROPENEM/NS 500 MG/50 ML 500 MG/50 ML BAG IV SCH (15:04)
--- NOTE | 2019-09-08 18:04 | Progress Note ---
Assessment and Plan Patient moved to telemetry floor. Patient awake. Weak . Resting on 4 litres O2. O2 saturation running 100%. 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 Patient not . Children 1. Chest xray reported cardiomegaly and pulmonary vascular congestion. - Patient Problems (1) Pulmonary vascular congestion Current Visit: Yes Status: Acute Plan to address problem: 1. Continue O2 2 litres via nasal canula. 2. Fluid restriction. 3. Lasix if she develops more shortness of breath. (2) Diabetes mellitus with hyperosmolarity without coma, with long-term current use of insulin Current Visit: Yes Status: Acute Plan to address problem: Management as per primary care. (3) NSTEMI (non-ST elevated myocardial infarction) Current Visit: Yes Status: Acute Plan to address problem: Management as per cardiology. (4) H/O acute pancreatitis Current Visit: No Status: Acute Plan to address problem: Management as per primary care. (5) End-stage renal disease needing dialysis Current Visit: Yes Status: Chronic Plan to address problem: Management as per nephrology. (6) Acute metabolic encephalopathy Current Visit: No Status: Acute Plan to address problem: Management as per primary care. (7) Hypertension Current Visit: No Status: Chronic Plan to address problem: Management as per primary care. (8) Lupus Current Visit: No Status: Chronic Plan to address problem: Patient is on Plaquanil. Management as per primary care. (9) Seizure disorder Current Visit: No Status: Chronic Plan to address problem: Management as per neurology. Subjective Date of service: 09/08/19 Principal diagnosis: pancreatitis Interval history: Patient moved to telemetry floor. Patient awake. Weak . Resting on 4 litres O2. O2 saturation running 100%. Denies smoking, alcohol or drug history.Patient worked in [employer] in [employer]. Patient not . Children 1. Chest xray reported cardiomegaly and pulmonary vascular congestion. Objective Vital Signs - 12hr 09/08/19 09/08/19 09/08/19 06:10 06:20 06:26 Temperature 100.7 F H Pulse Rate 125 H 126 H Pulse Rate [ From Monitor] Respiratory 22 27 H Rate Blood Pressure 132/78 132/78 O2 Sat by Pulse 100 100 Oximetry 09/08/19 09/08/19 09/08/19 06:30 06:40 06:50 Temperature Pulse Rate 132 H 132 H 131 H Pulse Rate [ From Monitor] Respiratory 28 H 22 21 Rate Blood Pressure 132/78 132/78 132/78 O2 Sat by Pulse 100 100 100 Oximetry 09/08/19 09/08/19 09/08/19 07:00 07:10 07:20 Temperature Pulse Rate 132 H 130 H 140 H Pulse Rate [ From Monitor] Respiratory 21 22 38 H Rate Blood Pressure 132/78 132/78 132/78 O2 Sat by Pulse 100 100 100 Oximetry 09/08/19 09/08/19 09/08/19 07:30 07:40 07:50 Temperature Pulse Rate 138 H 137 H 138 H Pulse Rate [ From Monitor] Respiratory 30 H 45 H 41 H Rate Blood Pressure 132/78 132/78 132/78 O2 Sat by Pulse 94 90 100 Oximetry 09/08/19 09/08/19 09/08/19 08:00 08:10 08:20 Temperature 100.1 F H Pulse Rate 132 H 136 H 137 H Pulse Rate [ 129 H From Monitor] Respiratory 20 41 H 45 H Rate Blood Pressure 135/85 135/85 135/85 O2 Sat by Pulse 98 96 100 Oximetry 09/08/19 09/08/19 09/08/19 08:30 08:40 08:50 Temperature Pulse Rate 133 H 133 H 134 H Pulse Rate [ From Monitor] Respiratory 30 H 36 H 36 H Rate Blood Pressure 135/85 135/85 135/85 O2 Sat by Pulse 100 100 100 Oximetry 09/08/19 09/08/19 09/08/19 09:00 09:10 09:20 Temperature Pulse Rate 133 H 136 H 132 H Pulse Rate [ From Monitor] Respiratory 25 H 30 H 22 Rate Blood Pressure 135/85 135/85 135/85 O2 Sat by Pulse 100 91 Oximetry 09/08/19 09/08/19 09/08/19 09:30 09:32 09:40 Temperature Pulse Rate 130 H 126 H 127 H Pulse Rate [ From Monitor] Respiratory 22 22 Rate Blood Pressure 135/85 135/85 135/85 O2 Sat by Pulse 100 100 Oximetry 09/08/19 09/08/19 09/08/19 09:50 10:30 10:45 Temperature 100.4 F H Pulse Rate 128 H 126 H 123 H Pulse Rate [ From Monitor] Respiratory 22 24 Rate Blood Pressure 115/65 114/55 121/59 O2 Sat by Pulse 100 Oximetry 09/08/19 09/08/19 09/08/19 11:00 11:15 11:30 Temperature Pulse Rate 125 H 122 H 101 H Pulse Rate [ From Monitor] Respiratory Rate Blood Pressure 117/51 117/49 99/37 O2 Sat by Pulse Oximetry 09/08/19 09/08/19 09/08/19 11:45 12:00 12:15 Temperature Pulse Rate 135 H 135 H 140 H Pulse Rate [ From Monitor] Respiratory Rate Blood Pressure 109/55 109/53 113/46 O2 Sat by Pulse Oximetry 09/08/19 09/08/19 09/08/19 12:30 12:45 13:00 Temperature Pulse Rate 107 H 77 125 H Pulse Rate [ From Monitor] Respiratory Rate Blood Pressure 115/47 99/55 98/49 O2 Sat by Pulse Oximetry 09/08/19 09/08/19 09/08/19 13:15 13:30 14:00 Temperature 100.5 F H Pulse Rate 133 H 123 H Pulse Rate [ 128 H From Monitor] Respiratory 22 22 Rate Blood Pressure 95/51 114/66 O2 Sat by Pulse 98 Oximetry 09/08/19 09/08/19 09/08/19 14:02 14:10 14:20 Temperature Pulse Rate 127 H 128 H Pulse Rate [ From Monitor] Respiratory 25 H 26 H Rate Blood Pressure 115/65 107/62 107/62 O2 Sat by Pulse 98 100 75 L Oximetry 09/08/19 09/08/19 09/08/19 14:30 14:40 14:50 Temperature Pulse Rate 133 H 134 H 129 H Pulse Rate [ From Monitor] Respiratory 22 25 H 18 Rate Blood Pressure 107/62 115/65 107/62 O2 Sat by Pulse 99 87 100 Oximetry 09/08/19 09/08/19 15:00 17:11 Temperature 99.1 F Pulse Rate 127 H 119 H Pulse Rate [ From Monitor] Respiratory 7 L 18 Rate Blood Pressure 107/62 99/62 O2 Sat by Pulse 98 100 Oximetry Constitutional: no acute distress, alert, other (Mild respiratory distress.) Eyes: non-icteric ENT: oropharynx moist Neck: supple, no lymphadenopathy Effort: mildly labored Ascultation: Bilateral: diminished breath sounds, rales (FEW rales.) Cardiovascular: other (Tachycardia, rate 127.) Gastrointestinal: normoactive bowel sounds, soft, non-tender Integumentary: normal Extremities: no cyanosis, no edema Neurologic: non-focal exam, pupils equal and round Psychiatric: depressed CBC and BMP: 09/07/19 05:15 09/08/19 09:50 ABG, PT/INR, D-dimer: ABG POC ABG pH 7.487 (7.35-7.45) H 09/04/19 18:49 POC ABG pCO2 33.3 (35-45) L 09/04/19 18:49 POC ABG pO2 120 (80-105) H 09/04/19 18:49 POC ABG HCO3 25.2 (22-26 mml/L) 09/04/19 18:49 POC ABG Total CO2 26 (23-27mmol/L) 09/04/19 18:49 POC ABG O2 Sat 99 09/04/19 18:49 Abnormal lab findings: Abnormal Labs 08/19/19 08/19/19 08/19/19 20:48 20:48 23:48 WBC 17.2 H RBC 2.50 L Hgb 6.8 L Hct 22.3 L MCH 27 L RDW 18.6 H Lymph % (Auto) [place] % (Auto) [place] # Seg Neutrophils % Seg Neuts % (Manual) Lymphocytes % (Manual) Monocytes % (Manual) Nucleated RBC % Seg Neutrophils # Seg Neutrophils # Man Lymphocytes # (Manual) Monocytes # (Manual) POC ABG pH POC ABG pCO2 POC ABG pO2 Sodium 131 L Potassium 2.8 L* D Chloride 92.9 L Carbon Dioxide BUN 64 H Creatinine 5.2 H Glucose 981 H* POC Glucose Calcium 8.2 L Phosphorus Magnesium Direct Bilirubin ALT < 5 L Alkaline Phosphatase CK-MB (CK-2) 4.8 H CK-MB (CK-2) Rel Index 8.8 H Troponin T 0.249 H* 0.288 H* C-Reactive Protein Total Protein 4.7 L Albumin 1.9 L Triglycerides 197 H LDL Cholesterol Direct 34 L HDL Cholesterol 19 L Lipase 251 H Crossmatch 08/20/19 08/20/19 08/20/19 00:06 00:09 01:40 WBC RBC Hgb Hct MCH RDW Lymph % (Auto) [place] % (Auto) [place] # Seg Neutrophils % Seg Neuts % (Manual) Lymphocytes % (Manual) Monocytes % (Manual) Nucleated RBC % Seg Neutrophils # Seg Neutrophils # Man Lymphocytes # (Manual) Monocytes # (Manual) POC ABG pH POC ABG pCO2 POC ABG pO2 Sodium Potassium 3.3 L Chloride 96.6 L Carbon Dioxide BUN 71 H Creatinine 6.0 H Glucose 180 H POC Glucose 180 H 142 H Calcium Phosphorus Magnesium Direct Bilirubin ALT Alkaline Phosphatase CK-MB (CK-2) CK-MB (CK-2) Rel Index Troponin T C-Reactive Protein Total Protein Albumin Triglycerides LDL Cholesterol Direct HDL Cholesterol Lipase Crossmatch 08/20/19 08/20/19 08/20/19 10:38 10:38 17:24 WBC RBC Hgb Hct MCH RDW Lymph % (Auto) [place] % (Auto) [place] # Seg Neutrophils % Seg Neuts % (Manual) Lymphocytes % (Manual) Monocytes % (Manual) Nucleated RBC % Seg Neutrophils # Seg Neutrophils # Man Lymphocytes # (Manual) Monocytes # (Manual) POC ABG pH POC ABG pCO2 POC ABG pO2 Sodium Potassium 2.9 L* Chloride Carbon Dioxide 17 L D BUN 64 H Creatinine 5.6 H Glucose POC Glucose 124 H Calcium 6.8 L D Phosphorus Magnesium Direct Bilirubin ALT < 5 L Alkaline Phosphatase CK-MB (CK-2) 4.5 H CK-MB (CK-2) Rel Index 10.7 H Troponin T 0.323 H* C-Reactive Protein Total Protein 4.1 L Albumin 1.4 L Triglycerides LDL Cholesterol Direct HDL Cholesterol Lipase Crossmatch 08/20/19 08/20/19 08/21/19 20:20 21:25 07:55 WBC RBC Hgb Hct MCH RDW Lymph % (Auto) [place] % (Auto) [place] # Seg Neutrophils % Seg Neuts % (Manual) Lymphocytes % (Manual) Monocytes % (Manual) Nucleated RBC % Seg Neutrophils # Seg Neutrophils # Man Lymphocytes # (Manual) Monocytes # (Manual) POC ABG pH POC ABG pCO2 POC ABG pO2 Sodium Potassium 5.2 H D Chloride 97.6 L Carbon Dioxide BUN 52 H Creatinine 5.0 H Glucose 287 H POC Glucose 161 H Calcium Phosphorus Magnesium 1.60 L Direct Bilirubin ALT Alkaline Phosphatase CK-MB (CK-2) CK-MB (CK-2) Rel Index Troponin T C-Reactive Protein Total Protein Albumin Triglycerides LDL Cholesterol Direct HDL Cholesterol Lipase Crossmatch 08/21/19 08/21/19 08/21/19 08:04 12:04 16:30 WBC RBC Hgb Hct MCH RDW Lymph % (Auto) [place] % (Auto) [place] # Seg Neutrophils % Seg Neuts % (Manual) Lymphocytes % (Manual) Monocytes % (Manual) Nucleated RBC % Seg Neutrophils # Seg Neutrophils # Man Lymphocytes # (Manual) Monocytes # (Manual) POC ABG pH POC ABG pCO2 POC ABG pO2 Sodium Potassium Chloride Carbon Dioxide BUN Creatinine Glucose POC Glucose 157 H 188 H 255 H Calcium Phosphorus Magnesium Direct Bilirubin ALT Alkaline Phosphatase CK-MB (CK-2) CK-MB (CK-2) Rel Index Troponin T C-Reactive Protein Total Protein Albumin Triglycerides LDL Cholesterol Direct HDL Cholesterol Lipase Crossmatch 08/21/19 08/22/19 08/22/19 21:17 04:00 08:20 WBC RBC Hgb Hct MCH RDW Lymph % (Auto) [place] % (Auto) [place] # Seg Neutrophils % Seg Neuts % (Manual) Lymphocytes % (Manual) Monocytes % (Manual) Nucleated RBC % Seg Neutrophils # Seg Neutrophils # Man Lymphocytes # (Manual) Monocytes # (Manual) POC ABG pH POC ABG pCO2 POC ABG pO2 Sodium Potassium Chloride 96.4 L Carbon Dioxide BUN 65 H Creatinine 6.1 H Glucose 119 H POC Glucose 251 H 148 H Calcium 8.3 L Phosphorus Magnesium Direct Bilirubin ALT Alkaline Phosphatase CK-MB (CK-2) CK-MB (CK-2) Rel Index Troponin T C-Reactive Protein Total Protein Albumin Triglycerides LDL Cholesterol Direct HDL Cholesterol Lipase Crossmatch 08/22/19 08/22/19 08/22/19 14:45 16:29 21:04 WBC RBC Hgb 7.0 L Hct 22.3 L MCH RDW Lymph % (Auto) [place] % (Auto) [place] # Seg Neutrophils % Seg Neuts % (Manual) Lymphocytes % (Manual) Monocytes % (Manual) Nucleated RBC % Seg Neutrophils # Seg Neutrophils # Man Lymphocytes # (Manual) Monocytes # (Manual) POC ABG pH POC ABG pCO2 POC ABG pO2 Sodium Potassium Chloride Carbon Dioxide BUN Creatinine Glucose POC Glucose 115 H 162 H Calcium Phosphorus Magnesium Direct Bilirubin ALT Alkaline Phosphatase CK-MB (CK-2) CK-MB (CK-2) Rel Index Troponin T C-Reactive Protein Total Protein Albumin Triglycerides LDL Cholesterol Direct HDL Cholesterol Lipase Crossmatch 08/23/19 08/24/19 08/24/19 08:00 07:42 07:42 WBC 22.8 H RBC 2.47 L Hgb 6.7 L Hct 20.5 L MCH 27 L RDW 18.1 H Lymph % (Auto) [place] % (Auto) [place] # Seg Neutrophils % Seg Neuts % (Manual) 95.0 H Lymphocytes % (Manual) 3.0 L Monocytes % (Manual) Nucleated RBC % Seg Neutrophils # Seg Neutrophils # Man 21.7 H Lymphocytes # (Manual) 0.7 L Monocytes # (Manual) POC ABG pH POC ABG pCO2 POC ABG pO2 Sodium 136 L Potassium 5.7 H D Chloride 92.2 L Carbon Dioxide 19 L BUN 107 H Creatinine 9.1 H Glucose POC Glucose 141 H Calcium Phosphorus 7.40 H Magnesium Direct Bilirubin ALT Alkaline Phosphatase CK-MB (CK-2) CK-MB (CK-2) Rel Index Troponin T C-Reactive Protein Total Protein Albumin Triglycerides LDL Cholesterol Direct HDL Cholesterol Lipase Crossmatch 08/24/19 08/24/19 08/25/19 18:53 23:32 05:00 WBC RBC Hgb Hct MCH RDW Lymph % (Auto) [place] % (Auto) [place] # Seg Neutrophils % Seg Neuts % (Manual) Lymphocytes % (Manual) Monocytes % (Manual) Nucleated RBC % Seg Neutrophils # Seg Neutrophils # Man Lymphocytes # (Manual) Monocytes # (Manual) POC ABG pH POC ABG pCO2 POC ABG pO2 Sodium Potassium Chloride 93.9 L Carbon Dioxide BUN 61 H Creatinine 5.3 H Glucose 166 H POC Glucose 169 H 139 H Calcium Phosphorus Magnesium Direct Bilirubin ALT Alkaline Phosphatase CK-MB (CK-2) CK-MB (CK-2) Rel Index Troponin T C-Reactive Protein Total Protein Albumin Triglycerides LDL Cholesterol Direct HDL Cholesterol Lipase Crossmatch 08/25/19 08/25/19 08/25/19 05:00 05:14 22:02 WBC 19.7 H RBC 2.45 L Hgb 6.6 L Hct 20.4 L MCH 27 L RDW 18.6 H Lymph % (Auto) [place] % (Auto) [place] # Seg Neutrophils % Seg Neuts % (Manual) 75.0 H Lymphocytes % (Manual) Monocytes % (Manual) Nucleated RBC % Seg Neutrophils # Seg Neutrophils # Man 14.8 H Lymphocytes # (Manual) Monocytes # (Manual) POC ABG pH POC ABG pCO2 POC ABG pO2 Sodium Potassium Chloride Carbon Dioxide BUN Creatinine Glucose POC Glucose 225 H 106 H Calcium Phosphorus Magnesium Direct Bilirubin ALT Alkaline Phosphatase CK-MB (CK-2) CK-MB (CK-2) Rel Index Troponin T C-Reactive Protein Total Protein Albumin Triglycerides LDL Cholesterol Direct HDL Cholesterol Lipase Crossmatch 08/26/19 08/26/19 08/26/19 07:39 11:31 12:33 WBC RBC Hgb Hct MCH RDW Lymph % (Auto) [place] % (Auto) [place] # Seg Neutrophils % Seg Neuts % (Manual) Lymphocytes % (Manual) Monocytes % (Manual) Nucleated RBC % Seg Neutrophils # Seg Neutrophils # Man Lymphocytes # (Manual) Monocytes # (Manual) POC ABG pH POC ABG pCO2 POC ABG pO2 Sodium Potassium Chloride Carbon Dioxide BUN Creatinine Glucose POC Glucose 212 H 110 H Calcium Phosphorus Magnesium Direct Bilirubin ALT Alkaline Phosphatase CK-MB (CK-2) CK-MB (CK-2) Rel Index Troponin T C-Reactive Protein Total Protein Albumin Triglycerides LDL Cholesterol Direct HDL Cholesterol Lipase Crossmatch See Detail 08/26/19 08/26/19 08/26/19 12:33 12:33 17:38 WBC 18.4 H RBC 2.43 L Hgb 6.3 L Hct 20.1 L MCH 26 L RDW 18.5 H Lymph % (Auto) [place] % (Auto) [place] # Seg Neutrophils % Seg Neuts % (Manual) 80.0 H Lymphocytes % (Manual) 9.0 L Monocytes % (Manual) Nucleated RBC % Seg Neutrophils # Seg Neutrophils # Man 14.7 H Lymphocytes # (Manual) Monocytes # (Manual) POC ABG pH POC ABG pCO2 POC ABG pO2 Sodium Potassium Chloride 93.4 L Carbon Dioxide BUN 95 H Creatinine 8.1 H D Glucose 119 H POC Glucose 196 H Calcium Phosphorus 5.00 H D Magnesium Direct Bilirubin ALT Alkaline Phosphatase CK-MB (CK-2) CK-MB (CK-2) Rel Index Troponin T C-Reactive Protein Total Protein Albumin Triglycerides LDL Cholesterol Direct HDL Cholesterol Lipase Crossmatch 08/26/19 08/27/19 08/27/19 22:08 07:40 07:40 WBC 14.4 H RBC 2.17 L Hgb 5.7 L* Hct 18.1 L* MCH 26 L RDW 18.6 H Lymph % (Auto) [place] % (Auto) [place] # Seg Neutrophils % Seg Neuts % (Manual) Lymphocytes % (Manual) Monocytes % (Manual) 8.0 H Nucleated RBC % Seg Neutrophils # Seg Neutrophils # Man 9.6 H Lymphocytes # (Manual) Monocytes # (Manual) 1.2 H POC ABG pH POC ABG pCO2 POC ABG pO2 Sodium 136 L Potassium Chloride 87.5 L Carbon Dioxide 20 L BUN 117 H Creatinine 9.0 H Glucose 379 H POC Glucose 252 H Calcium Phosphorus 7.10 H D Magnesium Direct Bilirubin ALT Alkaline Phosphatase CK-MB (CK-2) CK-MB (CK-2) Rel Index Troponin T C-Reactive Protein Total Protein Albumin Triglycerides LDL Cholesterol Direct HDL Cholesterol Lipase Crossmatch 08/27/19 08/27/19 08/27/19 08:13 09:02 09:42 WBC RBC Hgb Hct MCH RDW Lymph % (Auto) [place] % (Auto) [place] # Seg Neutrophils % Seg Neuts % (Manual) Lymphocytes % (Manual) Monocytes % (Manual) Nucleated RBC % Seg Neutrophils # Seg Neutrophils # Man Lymphocytes # (Manual) Monocytes # (Manual) POC ABG pH POC ABG pCO2 POC ABG pO2 Sodium Potassium Chloride Carbon Dioxide BUN Creatinine Glucose 578 H* POC Glucose > 500 H > 500 H Calcium Phosphorus Magnesium Direct Bilirubin ALT Alkaline Phosphatase CK-MB (CK-2) CK-MB (CK-2) Rel Index Troponin T C-Reactive Protein Total Protein Albumin Triglycerides LDL Cholesterol Direct HDL Cholesterol Lipase Crossmatch 08/27/19 08/28/19 08/28/19 10:14 01:05 05:25 WBC RBC Hgb Hct MCH RDW Lymph % (Auto) [place] % (Auto) [place] # Seg Neutrophils % Seg Neuts % (Manual) Lymphocytes % (Manual) Monocytes % (Manual) Nucleated RBC % Seg Neutrophils # Seg Neutrophils # Man Lymphocytes # (Manual) Monocytes # (Manual) POC ABG pH POC ABG pCO2 POC ABG pO2 Sodium Potassium 3.5 L D Chloride 93.6 L Carbon Dioxide BUN 72 H Creatinine 5.5 H Glucose 361 H POC Glucose 485 H 161 H Calcium Phosphorus Magnesium Direct Bilirubin ALT Alkaline Phosphatase CK-MB (CK-2) CK-MB (CK-2) Rel Index Troponin T C-Reactive Protein Total Protein Albumin Triglycerides LDL Cholesterol Direct HDL Cholesterol Lipase Crossmatch 08/28/19 08/28/19 08/28/19 07:40 10:44 12:30 WBC RBC 3.43 L Hgb 9.4 L D Hct 29.1 L D MCH RDW 17.0 H Lymph % (Auto) [place] % (Auto) [place] # Seg Neutrophils % Seg Neuts % (Manual) 81.0 H Lymphocytes % (Manual) Monocytes % (Manual) Nucleated RBC % Seg Neutrophils # Seg Neutrophils # Man 8.6 H Lymphocytes # (Manual) Monocytes # (Manual) POC ABG pH POC ABG pCO2 POC ABG pO2 Sodium Potassium Chloride Carbon Dioxide BUN Creatinine Glucose POC Glucose 362 H 355 H Calcium Phosphorus Magnesium Direct Bilirubin ALT Alkaline Phosphatase CK-MB (CK-2) CK-MB (CK-2) Rel Index Troponin T C-Reactive Protein Total Protein Albumin Triglycerides LDL Cholesterol Direct HDL Cholesterol Lipase Crossmatch 08/28/19 08/28/19 08/29/19 18:01 21:38 05:00 WBC 12.3 H RBC 3.29 L Hgb 8.8 L Hct 27.8 L MCH 27 L RDW 17.1 H Lymph % (Auto) [place] % (Auto) [place] # Seg Neutrophils % Seg Neuts % (Manual) 80.0 H Lymphocytes % (Manual) Monocytes % (Manual) Nucleated RBC % Seg Neutrophils # Seg Neutrophils # Man 9.8 H Lymphocytes # (Manual) Monocytes # (Manual) POC ABG pH POC ABG pCO2 POC ABG pO2 Sodium Potassium Chloride Carbon Dioxide BUN Creatinine Glucose POC Glucose 150 H 240 H Calcium Phosphorus Magnesium Direct Bilirubin ALT Alkaline Phosphatase CK-MB (CK-2) CK-MB (CK-2) Rel Index Troponin T C-Reactive Protein Total Protein Albumin Triglycerides LDL Cholesterol Direct HDL Cholesterol Lipase Crossmatch 08/29/19 08/29/19 08/29/19 05:00 07:59 13:02 WBC RBC Hgb Hct MCH RDW Lymph % (Auto) [place] % (Auto) [place] # Seg Neutrophils % Seg Neuts % (Manual) Lymphocytes % (Manual) Monocytes % (Manual) Nucleated RBC % Seg Neutrophils # Seg Neutrophils # Man Lymphocytes # (Manual) Monocytes # (Manual) POC ABG pH POC ABG pCO2 POC ABG pO2 Sodium Potassium 3.3 L Chloride 89.7 L Carbon Dioxide BUN 111 H Creatinine 6.9 H Glucose 374 H POC Glucose 373 H 59 L Calcium Phosphorus 5.90 H Magnesium Direct Bilirubin ALT 5 L Alkaline Phosphatase 173 H CK-MB (CK-2) CK-MB (CK-2) Rel Index Troponin T C-Reactive Protein Total Protein 5.5 L Albumin 2.0 L Triglycerides LDL Cholesterol Direct HDL Cholesterol Lipase Crossmatch 08/29/19 08/29/19 08/30/19 18:38 22:36 06:29 WBC RBC Hgb Hct MCH RDW Lymph % (Auto) [place] % (Auto) [place] # Seg Neutrophils % Seg Neuts % (Manual) Lymphocytes % (Manual) Monocytes % (Manual) Nucleated RBC % Seg Neutrophils # Seg Neutrophils # Man Lymphocytes # (Manual) Monocytes # (Manual) POC ABG pH POC ABG pCO2 POC ABG pO2 Sodium Potassium Chloride Carbon Dioxide BUN Creatinine Glucose POC Glucose 111 H 157 H 427 H Calcium Phosphorus Magnesium Direct Bilirubin ALT Alkaline Phosphatase CK-MB (CK-2) CK-MB (CK-2) Rel Index Troponin T C-Reactive Protein Total Protein Albumin Triglycerides LDL Cholesterol Direct HDL Cholesterol Lipase Crossmatch 08/30/19 08/30/19 08/30/19 06:30 06:30 11:59 WBC 13.6 H RBC 3.22 L Hgb 8.9 L Hct 27.1 L MCH RDW 17.3 H Lymph % (Auto) [place] % (Auto) [place] # Seg Neutrophils % Seg Neuts % (Manual) 80.0 H Lymphocytes % (Manual) Monocytes % (Manual) Nucleated RBC % 2.0 H Seg Neutrophils # Seg Neutrophils # Man 10.9 H Lymphocytes # (Manual) Monocytes # (Manual) POC ABG pH POC ABG pCO2 POC ABG pO2 Sodium 136 L Potassium Chloride 86.8 L Carbon Dioxide 21 L BUN 141 H Creatinine 8.0 H Glucose 493 H POC Glucose 275 H Calcium Phosphorus 6.40 H Magnesium Direct Bilirubin ALT Alkaline Phosphatase CK-MB (CK-2) CK-MB (CK-2) Rel Index Troponin T C-Reactive Protein Total Protein Albumin Triglycerides LDL Cholesterol Direct HDL Cholesterol Lipase Crossmatch 08/30/19 08/31/19 08/31/19 21:28 05:45 05:45 WBC 11.8 H RBC 3.55 L Hgb 9.6 L Hct 30.1 L MCH 27 L RDW 17.3 H Lymph % (Auto) [place] % (Auto) 12.5 H [place] # 1.5 H Seg Neutrophils % 73.8 H Seg Neuts % (Manual) Lymphocytes % (Manual) Monocytes % (Manual) Nucleated RBC % Seg Neutrophils # 8.7 H Seg Neutrophils # Man Lymphocytes # (Manual) Monocytes # (Manual) POC ABG pH POC ABG pCO2 POC ABG pO2 Sodium 135 L Potassium Chloride 90.7 L Carbon Dioxide BUN 95 H Creatinine 5.9 H Glucose 406 H POC Glucose 183 H Calcium Phosphorus 4.90 H D Magnesium Direct Bilirubin ALT Alkaline Phosphatase CK-MB (CK-2) CK-MB (CK-2) Rel Index Troponin T C-Reactive Protein Total Protein Albumin Triglycerides LDL Cholesterol Direct HDL Cholesterol Lipase Crossmatch 08/31/19 08/31/19 08/31/19 06:16 12:18 17:03 WBC RBC Hgb Hct MCH RDW Lymph % (Auto) [place] % (Auto) [place] # Seg Neutrophils % Seg Neuts % (Manual) Lymphocytes % (Manual) Monocytes % (Manual) Nucleated RBC % Seg Neutrophils # Seg Neutrophils # Man Lymphocytes # (Manual) Monocytes # (Manual) POC ABG pH POC ABG pCO2 POC ABG pO2 Sodium Potassium Chloride Carbon Dioxide BUN Creatinine Glucose POC Glucose 407 H 199 H 118 H Calcium Phosphorus Magnesium Direct Bilirubin ALT Alkaline Phosphatase CK-MB (CK-2) CK-MB (CK-2) Rel Index Troponin T C-Reactive Protein Total Protein Albumin Triglycerides LDL Cholesterol Direct HDL Cholesterol Lipase Crossmatch 08/31/19 09/01/19 09/01/19 22:20 07:09 07:30 WBC RBC Hgb Hct MCH RDW Lymph % (Auto) [place] % (Auto) [place] # Seg Neutrophils % Seg Neuts % (Manual) Lymphocytes % (Manual) Monocytes % (Manual) Nucleated RBC % Seg Neutrophils # Seg Neutrophils # Man Lymphocytes # (Manual) Monocytes # (Manual) POC ABG pH POC ABG pCO2 POC ABG pO2 Sodium Potassium Chloride 89.2 L Carbon Dioxide BUN 125 H Creatinine 7.1 H Glucose 426 H POC Glucose 203 H 362 H Calcium Phosphorus 5.30 H Magnesium Direct Bilirubin ALT Alkaline Phosphatase CK-MB (CK-2) CK-MB (CK-2) Rel Index Troponin T C-Reactive Protein Total Protein Albumin Triglycerides LDL Cholesterol Direct HDL Cholesterol Lipase Crossmatch 09/01/19 09/01/19 09/01/19 08:35 11:27 18:42 WBC 22.8 H RBC 3.52 L Hgb 9.4 L Hct 29.5 L MCH 27 L RDW 18.3 H Lymph % (Auto) [place] % (Auto) [place] # Seg Neutrophils % Seg Neuts % (Manual) 98.0 H Lymphocytes % (Manual) 1.0 L Monocytes % (Manual) Nucleated RBC % Seg Neutrophils # Seg Neutrophils # Man 22.3 H Lymphocytes # (Manual) 0.2 L Monocytes # (Manual) POC ABG pH POC ABG pCO2 POC ABG pO2 Sodium Potassium Chloride Carbon Dioxide BUN Creatinine Glucose POC Glucose 325 H 162 H Calcium Phosphorus Magnesium Direct Bilirubin ALT Alkaline Phosphatase CK-MB (CK-2) CK-MB (CK-2) Rel Index Troponin T C-Reactive Protein Total Protein Albumin Triglycerides LDL Cholesterol Direct HDL Cholesterol Lipase Crossmatch 09/01/19 09/02/19 09/02/19 23:37 06:07 09:15 WBC 21.9 H RBC 2.60 L Hgb 7.0 L Hct 23.0 L D MCH 27 L RDW 19.1 H Lymph % (Auto) [place] % (Auto) [place] # Seg Neutrophils % Seg Neuts % (Manual) 98.0 H Lymphocytes % (Manual) 2.0 L Monocytes % (Manual) Nucleated RBC % Seg Neutrophils # Seg Neutrophils # Man 21.5 H Lymphocytes # (Manual) 0.4 L Monocytes # (Manual) POC ABG pH POC ABG pCO2 POC ABG pO2 Sodium Potassium Chloride Carbon Dioxide BUN Creatinine Glucose POC Glucose 276 H 438 H Calcium Phosphorus Magnesium Direct Bilirubin ALT Alkaline Phosphatase CK-MB (CK-2) CK-MB (CK-2) Rel Index Troponin T C-Reactive Protein Total Protein Albumin Triglycerides LDL Cholesterol Direct HDL Cholesterol Lipase Crossmatch 09/02/19 09/02/19 09/02/19 09:15 12:45 18:19 WBC RBC Hgb Hct MCH RDW Lymph % (Auto) [place] % (Auto) [place] # Seg Neutrophils % Seg Neuts % (Manual) Lymphocytes % (Manual) Monocytes % (Manual) Nucleated RBC % Seg Neutrophils # Seg Neutrophils # Man Lymphocytes # (Manual) Monocytes # (Manual) POC ABG pH POC ABG pCO2 POC ABG pO2 Sodium 131 L Potassium Chloride 84.4 L Carbon Dioxide 19 L BUN 156 H Creatinine 7.6 H Glucose 849 H* POC Glucose 362 H 148 H Calcium 8.2 L Phosphorus Magnesium 1.60 L Direct Bilirubin ALT 6 L Alkaline Phosphatase 139 H CK-MB (CK-2) CK-MB (CK-2) Rel Index Troponin T C-Reactive Protein 26.00 H Total Protein 4.9 L Albumin 1.6 L Triglycerides LDL Cholesterol Direct HDL Cholesterol Lipase 212 H Crossmatch 09/03/19 09/03/19 09/03/19 00:06 04:33 04:33 WBC 22.2 H RBC 2.71 L Hgb 7.5 L Hct 23.3 L MCH RDW 18.1 H Lymph % (Auto) [place] % (Auto) [place] # Seg Neutrophils % Seg Neuts % (Manual) 94.0 H Lymphocytes % (Manual) 4.0 L Monocytes % (Manual) Nucleated RBC % Seg Neutrophils # Seg Neutrophils # Man 20.9 H Lymphocytes # (Manual) 0.9 L Monocytes # (Manual) POC ABG pH POC ABG pCO2 POC ABG pO2 Sodium Potassium Chloride Carbon Dioxide BUN 88 H Creatinine 5.0 H Glucose 331 H POC Glucose 277 H Calcium Phosphorus Magnesium Direct Bilirubin ALT Alkaline Phosphatase CK-MB (CK-2) CK-MB (CK-2) Rel Index Troponin T C-Reactive Protein Total Protein Albumin Triglycerides LDL Cholesterol Direct HDL Cholesterol Lipase Crossmatch 09/03/19 09/03/19 09/04/19 06:12 21:26 01:09 EST WBC RBC Hgb Hct MCH RDW Lymph % (Auto) [place] % (Auto) [place] # Seg Neutrophils % Seg Neuts % (Manual) Lymphocytes % (Manual) Monocytes % (Manual) Nucleated RBC % Seg Neutrophils # Seg Neutrophils # Man Lymphocytes # (Manual) Monocytes # (Manual) POC ABG pH POC ABG pCO2 POC ABG pO2 Sodium Potassium Chloride Carbon Dioxide BUN Creatinine Glucose POC Glucose 288 H 67 L 166 H Calcium Phosphorus Magnesium Direct Bilirubin ALT Alkaline Phosphatase CK-MB (CK-2) CK-MB (CK-2) Rel Index Troponin T C-Reactive Protein Total Protein Albumin Triglycerides LDL Cholesterol Direct HDL Cholesterol Lipase Crossmatch 09/04/19 09/04/19 09/04/19 04:40 04:40 04:40 WBC 19.5 H RBC 2.49 L Hgb 6.7 L Hct 21.3 L MCH 27 L RDW 17.8 H Lymph % (Auto) 10.7 L [place] % (Auto) [place] # 1.3 H Seg Neutrophils % 82.2 H Seg Neuts % (Manual) Lymphocytes % (Manual) Monocytes % (Manual) Nucleated RBC % Seg Neutrophils # 16.0 H Seg Neutrophils # Man Lymphocytes # (Manual) Monocytes # (Manual) POC ABG pH POC ABG pCO2 POC ABG pO2 Sodium Potassium Chloride 94.4 L Carbon Dioxide BUN 112 H Creatinine 6.3 H Glucose 273 H POC Glucose Calcium Phosphorus 5.30 H Magnesium Direct Bilirubin 0.3 H ALT Alkaline Phosphatase CK-MB (CK-2) CK-MB (CK-2) Rel Index Troponin T C-Reactive Protein Total Protein 5.0 L Albumin 1.5 L Triglycerides LDL Cholesterol Direct HDL Cholesterol Lipase Crossmatch 09/04/19 09/04/19 09/04/19 06:03 07:55 14:25 WBC 20.7 H RBC 2.45 L Hgb 6.5 L Hct 20.6 L MCH 26 L RDW 17.3 H Lymph % (Auto) [place] % (Auto) [place] # Seg Neutrophils % Seg Neuts % (Manual) Lymphocytes % (Manual) Monocytes % (Manual) Nucleated RBC % Seg Neutrophils # Seg Neutrophils # Man Lymphocytes # (Manual) Monocytes # (Manual) POC ABG pH POC ABG pCO2 POC ABG pO2 Sodium Potassium Chloride Carbon Dioxide BUN Creatinine Glucose POC Glucose 309 H 287 H Calcium Phosphorus Magnesium Direct Bilirubin ALT Alkaline Phosphatase CK-MB (CK-2) CK-MB (CK-2) Rel Index Troponin T C-Reactive Protein Total Protein Albumin Triglycerides LDL Cholesterol Direct HDL Cholesterol Lipase Crossmatch 09/04/19 09/04/19 09/05/19 16:40 18:49 03:40 WBC RBC Hgb Hct MCH RDW Lymph % (Auto) [place] % (Auto) [place] # Seg Neutrophils % Seg Neuts % (Manual) Lymphocytes % (Manual) Monocytes % (Manual) Nucleated RBC % Seg Neutrophils # Seg Neutrophils # Man Lymphocytes # (Manual) Monocytes # (Manual) POC ABG pH 7.487 H POC ABG pCO2 33.3 L POC ABG pO2 120 H Sodium Potassium Chloride 92.4 L Carbon Dioxide 21 L BUN 138 H Creatinine 7.2 H Glucose 214 H POC Glucose 66 L Calcium Phosphorus Magnesium Direct Bilirubin ALT Alkaline Phosphatase CK-MB (CK-2) CK-MB (CK-2) Rel Index Troponin T C-Reactive Protein Total Protein Albumin Triglycerides LDL Cholesterol Direct HDL Cholesterol Lipase Crossmatch 09/05/19 09/05/19 09/05/19 05:20 06:10 08:18 WBC 17.9 H RBC 2.44 L Hgb 6.5 L Hct 20.5 L MCH 27 L RDW 18.1 H Lymph % (Auto) 10.0 L [place] % (Auto) [place] # 1.2 H Seg Neutrophils % 83.0 H Seg Neuts % (Manual) Lymphocytes % (Manual) Monocytes % (Manual) Nucleated RBC % Seg Neutrophils # 14.8 H Seg Neutrophils # Man Lymphocytes # (Manual) Monocytes # (Manual) POC ABG pH POC ABG pCO2 POC ABG pO2 Sodium Potassium Chloride Carbon Dioxide BUN Creatinine Glucose POC Glucose 252 H 291 H Calcium Phosphorus Magnesium Direct Bilirubin ALT Alkaline Phosphatase CK-MB (CK-2) CK-MB (CK-2) Rel Index Troponin T C-Reactive Protein Total Protein Albumin Triglycerides LDL Cholesterol Direct HDL Cholesterol Lipase Crossmatch 09/05/19 09/05/19 09/06/19 09:21 11:35 04:17 WBC 16.0 H RBC 2.94 L Hgb 8.2 L Hct 25.3 L MCH RDW 16.4 H Lymph % (Auto) 12.5 L [place] % (Auto) 10.1 H [place] # 1.6 H Seg Neutrophils % 77.0 H Seg Neuts % (Manual) Lymphocytes % (Manual) Monocytes % (Manual) Nucleated RBC % Seg Neutrophils # 12.3 H Seg Neutrophils # Man Lymphocytes # (Manual) Monocytes # (Manual) POC ABG pH POC ABG pCO2 POC ABG pO2 Sodium Potassium Chloride Carbon Dioxide BUN Creatinine Glucose POC Glucose 201 H Calcium Phosphorus Magnesium Direct Bilirubin ALT Alkaline Phosphatase CK-MB (CK-2) CK-MB (CK-2) Rel Index Troponin T C-Reactive Protein Total Protein Albumin Triglycerides LDL Cholesterol Direct HDL Cholesterol Lipase Crossmatch See Detail 09/06/19 09/06/19 09/06/19 04:17 05:52 07:51 WBC RBC Hgb Hct MCH RDW Lymph % (Auto) [place] % (Auto) [place] # Seg Neutrophils % Seg Neuts % (Manual) Lymphocytes % (Manual) Monocytes % (Manual) Nucleated RBC % Seg Neutrophils # Seg Neutrophils # Man Lymphocytes # (Manual) Monocytes # (Manual) POC ABG pH POC ABG pCO2 POC ABG pO2 Sodium Potassium 3.5 L Chloride 94.2 L Carbon Dioxide BUN 88 H Creatinine 5.2 H Glucose 198 H POC Glucose 207 H 278 H Calcium Phosphorus Magnesium Direct Bilirubin ALT 6 L Alkaline Phosphatase 151 H CK-MB (CK-2) CK-MB (CK-2) Rel Index Troponin T C-Reactive Protein Total Protein 5.2 L Albumin 1.5 L Triglycerides LDL Cholesterol Direct HDL Cholesterol Lipase Crossmatch 11/05/19 11/05/19 11/06/19 11:19 21:33 05:15 WBC RBC Hgb Hct MCH RDW Lymph % (Auto) [place] % (Auto) [place] # Seg Neutrophils % Seg Neuts % (Manual) Lymphocytes % (Manual) Monocytes % (Manual) Nucleated RBC % Seg Neutrophils # Seg Neutrophils # Man Lymphocytes # (Manual) Monocytes # (Manual) POC ABG pH POC ABG pCO2 POC ABG pO2 Sodium Potassium Chloride 91.5 L Carbon Dioxide 21 L BUN 119 H Creatinine 6.4 H Glucose 185 H POC Glucose 149 H 124 H Calcium Phosphorus Magnesium Direct Bilirubin ALT Alkaline Phosphatase CK-MB (CK-2) CK-MB (CK-2) Rel Index Troponin T C-Reactive Protein Total Protein Albumin Triglycerides LDL Cholesterol Direct HDL Cholesterol Lipase Crossmatch 09/07/19 09/07/19 09/07/19 05:15 07:32 11:17 WBC 14.7 H RBC 2.88 L Hgb 8.0 L Hct 24.5 L MCH RDW 17.4 H Lymph % (Auto) [place] % (Auto) 12.7 H [place] # 1.9 H Seg Neutrophils % 70.6 H Seg Neuts % (Manual) Lymphocytes % (Manual) Monocytes % (Manual) Nucleated RBC % Seg Neutrophils # 10.4 H Seg Neutrophils # Man Lymphocytes # (Manual) Monocytes # (Manual) POC ABG pH POC ABG pCO2 POC ABG pO2 Sodium Potassium Chloride Carbon Dioxide BUN Creatinine Glucose POC Glucose 111 H 155 H Calcium Phosphorus Magnesium Direct Bilirubin ALT Alkaline Phosphatase CK-MB (CK-2) CK-MB (CK-2) Rel Index Troponin T C-Reactive Protein Total Protein Albumin Triglycerides LDL Cholesterol Direct HDL Cholesterol Lipase Crossmatch 09/07/19 09/07/19 09/07/19 16:40 17:48 22:17 WBC RBC Hgb Hct MCH RDW Lymph % (Auto) [place] % (Auto) [place] # Seg Neutrophils % Seg Neuts % (Manual) Lymphocytes % (Manual) Monocytes % (Manual) Nucleated RBC % Seg Neutrophils # Seg Neutrophils # Man Lymphocytes # (Manual) Monocytes # (Manual) POC ABG pH POC ABG pCO2 POC ABG pO2 Sodium Potassium Chloride Carbon Dioxide BUN Creatinine Glucose POC Glucose < 40 L < 40 L 129 H Calcium Phosphorus Magnesium Direct Bilirubin ALT Alkaline Phosphatase CK-MB (CK-2) CK-MB (CK-2) Rel Index Troponin T C-Reactive Protein Total Protein Albumin Triglycerides LDL Cholesterol Direct HDL Cholesterol Lipase Crossmatch 09/08/19 09/08/19 09/08/19 05:18 07:22 09:01 WBC RBC Hgb Hct MCH RDW Lymph % (Auto) [place] % (Auto) [place] # Seg Neutrophils % Seg Neuts % (Manual) Lymphocytes % (Manual) Monocytes % (Manual) Nucleated RBC % Seg Neutrophils # Seg Neutrophils # Man Lymphocytes # (Manual) Monocytes # (Manual) POC ABG pH POC ABG pCO2 POC ABG pO2 Sodium Potassium Chloride Carbon Dioxide BUN Creatinine Glucose POC Glucose 204 H 278 H 179 H Calcium Phosphorus Magnesium Direct Bilirubin ALT Alkaline Phosphatase CK-MB (CK-2) CK-MB (CK-2) Rel Index Troponin T C-Reactive Protein Total Protein Albumin Triglycerides LDL Cholesterol Direct HDL Cholesterol Lipase Crossmatch 09/08/19 09/08/19 09:50 17:20 WBC RBC Hgb Hct MCH RDW Lymph % (Auto) [place] % (Auto) [place] # Seg Neutrophils % Seg Neuts % (Manual) Lymphocytes % (Manual) Monocytes % (Manual) Nucleated RBC % Seg Neutrophils # Seg Neutrophils # Man Lymphocytes # (Manual) Monocytes # (Manual) POC ABG pH POC ABG pCO2 POC ABG pO2 Sodium Potassium Chloride 89.8 L Carbon Dioxide BUN 138 H Creatinine 7.5 H Glucose 132 H POC Glucose 64 L Calcium Phosphorus Magnesium Direct Bilirubin ALT Alkaline Phosphatase CK-MB (CK-2) CK-MB (CK-2) Rel Index Troponin T C-Reactive Protein Total Protein Albumin Triglycerides LDL Cholesterol Direct HDL Cholesterol Lipase Crossmatch
[2019-09-08] MEDS: DEXTROSE 50% IN WATER (25GM) 50 ML SYRINGE IV PRN (18:05)
[2019-09-08] MEDS ORDERED: TOTAL PARENTERAL NUTRITION 1,560 ML IV SCH (20:00)
[2019-09-08] MEDS: diphenhydrAMINE 50 MG/ML VIAL IV PRN (21:26)
[2019-09-08] MEDS: MELATONIN 5 MG TAB PO SCH (21:28)
[2019-09-09] MEDS: MORPHINE 2 MG/1 ML INJ IV PRN ×3 (00:39→22:25)
[2019-09-09] MEDS: ONDANSETRON 4 MG/2 ML INJ IV PRN (00:43)
[2019-09-09] MEDS: INSULIN LISPRO 100 UNIT/ML SUB-Q SCH ×4 (01:05→22:05)
--- NOTE | 2019-09-09 09:57 | Progress Note ---
Assessment and Plan 1. ESRD: On maintenance hemodialysis three times a week, TTS schedule. Last dialyzed 09/08. 2. FEN: Hyperkalemia, improved. Metabolic acidosis, improved. Monitor lytes. 3. Anemia: Epogen with HD. S/p PRBC. 4. Seizures: On Keppra. 5. Metabolic encephalopathy. 6. Acute pancreatitis: CT abdomen showed worsening pancreatitis. Gen. Surgery recommended pancreatic drain, but pt refused. On PPN / TPN. 7. Tachycardia: Followed by Cards. 8. History of lupus: On Cellcept and Plaquenil. 9. Hyperglycemia. 10. Psychosis. 11. Deconditioning. Pending transfer to [place]. Examination: General appearance: well-developed, appears stated age, not in distress HEENT: ATNC, BOR[place] Neck: trachea midline Respiratory: Clear to Ascultation Heart: regular, S1S2, no murmur, tachycardia Gastrointestinal: soft, distended, mild tenderness over the L side, normoactive bowel sound Integumentary: no rash, warm and dry Neurologic: alert, follows some command, answers questions, confusion noted Musculoskeletal: trace LE edema Hemodialysis access: L arm AVG Subjective Date of service: 09/09/19 Principal diagnosis: pancreatitis Interval history: Patient was seen and examined at the bedside. Nursing aid at the bedside. Objective - Vital Signs Vital signs: Vital Signs - 12hr 09/08/19 09/09/19 09/09/19 23:31 00:39 01:09 Temperature 98.4 F Pulse Rate 118 H Respiratory 20 20 18 Rate Respiratory Rate [Abdomen] Blood Pressure 101/60 Blood Pressure [Right] O2 Sat by Pulse 100 Oximetry 09/09/19 09/09/19 09/09/19 01:12 04:04 08:00 Temperature 98.4 F 98.6 F Pulse Rate 62 85 Respiratory 20 18 Rate Respiratory 18 Rate [Abdomen] Blood Pressure 120/62 Blood Pressure 120/75 [Right] O2 Sat by Pulse 88 100 Oximetry 09/09/19 08:24 Temperature Pulse Rate Respiratory Rate Respiratory Rate [Abdomen] Blood Pressure Blood Pressure [Right] O2 Sat by Pulse 96 Oximetry - Lab 09/07/19 05:15 09/09/19 09:50 Most recent lab results Calcium 8.7 mg/dL (8.4-10.2) 09/08/19 09:50 Phosphorus 5.30 mg/dL (2.5-4.5) H 09/04/19 04:40 Magnesium 2.00 mg/dL (1.7-2.3) 09/05/19 03:40 Medications & Allergies - Medications Allergies/Adverse Reactions: Allergies lactose Adverse Reaction (Verified 07/29/19 08:16) Unknown Home Medications: Home Medications Medication Instructions Recorded Confirmed Last Taken Type ALBUTEROL NEB's [Proventil 0.083% 2.5 mg IH QID PRN 07/26/19 08/21/19 07/25/19 History NEBS] Labetalol HCl [Labetalol 300mg TAB] 300 mg PO Q12H 07/26/19 08/21/19 07/25/19 History Mirtazapine 7.5 mg PO QDAY 07/26/19 08/21/19 07/25/19 History Pantoprazole [Protonix TAB] 40 mg PO BID 07/26/19 08/21/19 08/21/19 15:56 History Sevelamer HCl [Renagel] 800 mg PO BIDWM 07/26/19 08/21/19 07/25/19 History Acetaminophen [Acetaminophen TAB] 650 mg PO Q6H PRN tablet 08/18/19 08/21/19 Unknown Rx Cyanocobalamin (Vitamin B-12) 1,000 mcg PO QDAY #20 08/18/19 08/21/19 Unknown Rx [Vitamin B-12] Epoetin Mitch 20,000 Unit [Procrit] 20,000 unit SUB-Q FAN PRN vial 08/18/19 08/21/19 Unknown Rx Folic Acid [Folvite] 1 mg PO QDAY #30 08/18/19 08/21/19 Unknown Rx Gabapentin 300 mg PO 3XW #60 08/18/19 08/21/19 08/21/19 15:58 Rx Hydroxychloroquine [Plaquenil] 200 mg PO QDAY #30 08/18/19 08/21/19 Unknown Rx Insulin Glargine [Lantus VIAL] 20 units SUB-Q QHS #1 units 08/18/19 08/21/19 08/21/19 15:57 Rx Labetalol [Labetalol 200mg TAB] 300 mg PO BID #60 tablet 08/18/19 08/21/19 Unknown Rx Losartan [Cozaar] 50 mg PO QDAY #30 08/18/19 08/21/19 Unknown Rx Mycophenolate [Cellcept] 500 mg PO QDAY #30 08/18/19 08/21/19 08/21/19 15:56 Rx Pantoprazole [Protonix TAB] 40 mg PO BID #60 tablet 08/18/19 08/21/19 08/21/19 15:55 Rx Sevelamer Carbonate [Renvela] 800 mg PO 0730,1630 #30 tablet 08/18/19 08/21/19 08/21/19 15:56 Rx Total Parenteral Nutrition [TPN 12 ml IV DAILY@2000 ml 08/18/19 08/21/19 08/21/19 15:55 Rx Adult] hydrOXYzine HCL [Atarax] 50 mg PO QDAY #30 08/18/19 08/21/19 Unknown Rx levETIRAcetam [Keppra TAB] 500 mg PO BID #60 tablet 08/18/19 08/21/19 08/21/19 15:54 Rx oxyCODONE /ACETAMINOPHEN [Percocet 1 tab PO Q8H PRN #30 tablet 08/18/19 08/21/19 Unknown Rx 5/325 mg] predniSONE [Deltasone] 20 mg PO QDAY #30 08/18/19 08/21/19 Unknown Rx Active Medications: Generic Name Dose Route Start Last Admin Trade Name Freq PRN Reason Stop Dose Admin Acetaminophen 650 mg 08/19/19 22:44 09/03/19 20:59 Tylenol PO 650 mg Q4H PRN Administration Pain MILD(1-3)/Fever >100.5/PORTER Acetaminophen 650 mg 08/26/19 13:00 09/03/19 04:11 Tylenol [place] 650 mg Q6H PRN Administration Pain, Mild (1-3) Albuterol 2.5 mg 08/20/19 09:00 09/07/19 18:25 Proventil IH 2.5 mg QID PRN Administration Wheezing Clonidine HCl 0.3 mg 09/03/19 14:00 09/03/19 19:49 Catapres-Tts Patch TD Not Given Sa JOEL Cyanocobalamin 1,000 mcg 08/20/19 10:00 09/08/19 09:32 Vitamin B-12 PO 1,000 mcg QDAY JOEL Administration Dextrose 0 ml 08/19/19 22:43 09/08/19 18:05 D50w (25gm) Syringe IV 50 ml Q30MIN PRN Administration Hypoglycemia Diphenhydramine HCl 25 mg 08/22/19 22:22 09/08/19 21:26 Benadryl IV 25 mg Q6H PRN Administration Itching Epoetin [place] 20,000 unit 08/20/19 09:17 09/08/19 13:24 Procrit SUB-Q 20,000 unit FAN PRN Administration hemodialysis Folic Acid 1 mg 08/20/19 10:00 09/08/19 09:32 Folvite PO 1 mg QDAY JOEL Administration Haloperidol Lactate 5 mg 09/02/19 11:00 09/07/19 22:22 Haldol IM 5 mg Q6H PRN Administration Agitation Hydroxychloroquine Sulfate 200 mg 08/20/19 10:00 09/08/19 09:32 Plaquenil PO 200 mg QDAY JOEL Administration Hydroxyzine HCl 50 mg 08/20/19 10:00 09/08/19 09:32 Atarax PO 50 mg QDAY JOEL Administration Levetiracetam 750 mg/ Dextrose 107.5 mls @ 107.5 mls/hr 08/26/19 12:30 09/08/19 21:26 IV 400 mls/hr Q12HR JOEL Administration Meropenem 500 mg in 50 mls @ 50 mls/hr 09/04/19 14:00 09/08/19 15:04 Merrem/Ns 500 Mg/50 Ml IV 50 mls/hr Q24H JOEL Administration Sodium Chloride 100 mls @ 999 mls/hr 09/08/19 08:23 Nacl 0.9% IV FAN PRN Hypotension Insulin Glargine 10 units 09/02/19 11:30 09/08/19 09:32 Lantus SUB-Q 10 units QAMDIAB JOEL Administration Insulin Human Lispro 0 unit 09/07/19 12:00 09/09/19 06:34 Humalog SUB-Q 3 unit Q6HR JOEL Administration Protocol Losartan Potassium 50 mg 08/20/19 10:00 09/08/19 09:32 Cozaar PO 50 mg QDAY JOEL Administration Melatonin 5 mg 08/25/19 22:00 09/08/19 21:28 Melatonin PO 5 mg QHS JOEL Administration Metoclopramide HCl 5 mg 09/01/19 13:00 09/07/19 22:22 Reglan IV 5 mg Q6H PRN Administration Nausea And Vomiting Metoprolol Tartrate 5 mg 09/01/19 18:48 09/08/19 05:18 Metoprolol IV 5 mg Q6HR PRN Administration Hypertension Morphine Sulfate 1 mg 09/02/19 11:30 09/09/19 08:05 Morphine IV 1 mg Q4H PRN Administration Pain , Severe (7-10) Mycophenolate Mofetil 500 mg 08/20/19 10:00 09/08/19 09:33 Cellcept PO 500 mg QDAY JOEL Administration Olanzapine 5 mg 09/02/19 13:00 09/08/19 21:28 Zyprexa Zydis PO 5 mg BID JOEL Administration Ondansetron HCl 4 mg 08/21/19 13:00 09/09/19 00:43 Zofran IV 4 mg Q4H PRN Administration Nausea And Vomiting Pantoprazole Sodium 40 mg 09/04/19 22:00 09/08/19 21:26 Protonix IV 40 mg BID JOEL Administration Promethazine HCl 25 mg 08/21/19 12:46 Phenergan [place] Q6H PRN Nausea And Vomiting Sevelamer Carbonate 800 mg 08/20/19 16:30 09/08/19 15:53 Renvela PO Not Given 0730,1630 JOEL Sodium Chloride 10 ml 08/20/19 10:00 09/08/19 23:52 Sodium Chloride Flush Syringe 10 Ml IV 10 ml BID JOEL Administration Sodium Chloride 10 ml 08/19/19 22:44 09/05/19 17:22 Sodium Chloride Flush Syringe 10 Ml IV 10 ml PRN PRN Administration LINE FLUSH
[2019-09-09 10:31] LABS: Calcium 8.7 mg/dL (8.4-10.2)
[2019-09-09] MEDS: FOLIC ACID 1 MG TAB PO SCH ×2 (10:31→16:04)
[2019-09-09] MEDS: CYANOCOBALAMIN (VIT B-12) 1000 MCG TAB PO SCH ×2 (10:31→16:04)
[2019-09-09] MEDS: LOSARTAN 50 MG TAB PO SCH ×2 (10:31→16:04)
[2019-09-09] MEDS: OLANzapine ZYDIS 5 MG TAB PO SCH ×2 (10:31→22:09)
[2019-09-09] MEDS: hydrOXYzine HCL 25 MG TAB PO SCH ×2 (10:31→16:04)
[2019-09-09] MEDS: PANTOPRAZOLE 40 MG INJ IV SCH ×2 (10:31→21:20)
[2019-09-09] MEDS: HYDROXYCHLOROQUINE 200 MG TAB PO SCH ×2 (10:32→16:04)
[2019-09-09] MEDS: levETIRAcetam 750 MG in DEXTROSE 5% IN WATER 100 ML IV SCH ×2 (10:32→22:18)
--- NOTE | 2019-09-09 12:23 | Progress Note ---
Assessment and Plan Assessment and plan: 29-year-old woman with lupus, end-stage renal disease, hypertension, anemia who was discharged from the hospital after being treated for necrotizing pancreatitis, sepsis and right labial abscess. Patient was discharged home with TPN with home health care but Family was unable to care for her and then b rought her back to the hospital on next day of her discharge. She is wheelchair-bound. Had intermittent seizures because of noncompliance. Noted severely agitated, paranoid and aggressive required restraints and safety director. Has severe anemia and s/p 2 units PRBC transfusion. Continue to have Ps ychosis with delusions,Psych evaluated.Family not willing to take her back, difficult placement. Patient developed severe abd pain CT A/P 08/31/19 worsening pancreatitis. multiple pseudocysts, Evaluated by general surgeon and GI. Plan to transfer to [place] for higher level of care -possible GI cinthia luation/hepatobiliary GI consultation, possible surgical intervention Patient was accepted by [facility], however did not have ICU beds, has had downgraded the patient to telemetry, requested floor beds. --Sinus tachycardia; due to underlying disease process Treat Underlying cause, supportive care --Multiple Pseudocysts: N.p.o., IV fluids Supportive care, patient refused NG tube Continue TPN, surg following Rec transf to [facility] for GI/hepatobiliary GI evaluation --Necrotizing pancreatitis: TPN, IV fluids, supportive care --Acute hypoxic respiratory failure Due to volume overload ,worsening necrotizing pancreatitis Oxygen titrate O2 sats to more than 90%, supportive care --Acute sepsis with tachycardia, elevated white count likely from worsening necrotizing pancreatitis . ID following NPO, IV hydration with TPN, continue meropenem --Accerelated HTN with tachycardia Continue current antihypertensives and as needed medications --Severe Anemia of chronic disease; improved s/p 3 unit of PRBC transfusion during dialysis, Procrit. monitor H&H and transfuse as needed --Delusions: Psych following Her family has reported that she has been having delusions and she has been paranoid and cannot take care of her and requested placement Psych following continue current management --Acute metabolic encephalopathy MRI, MRA brain negative, lupus encephalopathy ruled out --Severe malnutrition, Continue TPN, dietary following --End-stage renal disease, Continue dialysis --H/O SLE: Continue mycophenolate and Plaquenil, steroid IV --Non-ST elevation [place] Type 2. due to end-stage renal disease Cardiology evaluated continue current management --Diabetes type 2, uncontrolled Accu-Chek sliding scale coverage and insulin long acting --DVT prophylaxis SCD --Chronic debility; PT, Awaiting placement in residential facility Patient is critically ill with very poor prognosis. Patient is awaiting transfer to [facility]. Waiting for callback from [place] with bed assignment. Transfer the patient out of IMCU to telemetry today Critical care time 31 minutes Addendum;I Called [place] transfer center again today 09/08/19 and talked to the transfer center Nurse. Transfer center nurse reports that patient needs to be in medical/telemetry floor 24 hours prior to transfer. I will call back transfer center tomorrow for possible transfer History Interval history: Patient seen and examined medical records reviewed Patient still waiting to be transferred to [facility] No new complaints Vital signs noted Hospitalist Physical - Constitutional Vitals: Temp Pulse Resp BP Pulse Ox 98.6 F 85 18 120/75 96 09/09/19 08:00 09/09/19 08:00 09/09/19 08:00 09/09/19 08:00 09/09/19 08:24 General appearance: Present: no acute distress, cachectic, disheveled - EENT Eyes: Present: PERRL, EOM intact - Neck Neck: Present: supple, normal ROM - Respiratory Respiratory effort: normal Respiratory: bilateral: diminished, negative: rales, rhonchi, wheezing - Cardiovascular Rhythm: regular Heart Sounds: Present: S1 & S2 - Extremities Extremities: no ischemia, No edema - Abdominal General gastrointestinal: soft, non-tender, non-distended, normal bowel sounds - Integumentary Integumentary: Present: clear, warm - Psychiatric Psychiatric: appropriate mood/affect, cooperative - Neurologic Neurologic: moves all extremities Results - Labs CBC & Chem 7: 09/07/19 05:15 09/09/19 09:50 Labs: Laboratory Last Values WBC 14.7 K/mm3 (4.5-11.0) H 09/07/19 05:15 RBC 2.88 M/mm3 (3.65-5.03) L 09/07/19 05:15 Hgb 8.0 gm/dl (10.1-14.3) L 09/07/19 05:15 Hct 24.5 % (30.3-42.9) L 09/07/19 05:15 MCV 85 fl (79-97) 09/07/19 05:15 MCH 28 pg (28-32) 09/07/19 05:15 MCHC 33 % (30-34) 09/07/19 05:15 RDW 17.4 % (13.2-15.2) H 09/07/19 05:15 Plt Count 289 K/mm3 (140-440) 09/07/19 05:15 Lymph % (Auto) 16.3 % (13.4-35.0) 09/07/19 05:15 [place] % (Auto) 12.7 % (0.0-7.3) H 09/07/19 05:15 Eos % (Auto) 0.3 % (0.0-4.3) 09/07/19 05:15 Baso % (Auto) 0.1 % (0.0-1.8) 09/07/19 05:15 Lymph # 2.4 K/mm3 (1.2-5.4) 09/07/19 05:15 [place] # 1.9 K/mm3 (0.0-0.8) H 09/07/19 05:15 Eos # 0.0 K/mm3 (0.0-0.4) 09/07/19 05:15 Baso # 0.0 K/mm3 (0.0-0.1) 09/07/19 05:15 Add Manual Diff Complete 09/03/19 04:33 Total Counted 100 09/03/19 04:33 Seg Neutrophils % 70.6 % (40.0-70.0) H 09/07/19 05:15 Seg Neuts % (Manual) 94.0 % (40.0-70.0) H 09/03/19 04:33 Band Neutrophils % 0 % 09/03/19 04:33 Lymphocytes % (Manual) 4.0 % (13.4-35.0) L 09/03/19 04:33 Reactive Lymphs % (Man) 0 % 09/03/19 04:33 Monocytes % (Manual) 1.0 % (0.0-7.3) 09/03/19 04:33 Eosinophils % (Manual) 0 % (0.0-4.3) 09/03/19 04:33 Basophils % (Manual) 0 % (0.0-1.8) 09/03/19 04:33 Metamyelocytes % 1.0 % 09/03/19 04:33 Myelocytes % 0 % 09/03/19 04:33 Promyelocytes % 0 % 09/03/19 04:33 Blast Cells % 0 % 09/03/19 04:33 Nucleated RBC % Not Reportable 09/03/19 04:33 Seg Neutrophils # 10.4 K/mm3 (1.8-7.7) H 09/07/19 05:15 Seg Neutrophils # Man 20.9 K/mm3 (1.8-7.7) H 09/03/19 04:33 Band Neutrophils # 0.0 K/mm3 09/03/19 04:33 Lymphocytes # (Manual) 0.9 K/mm3 (1.2-5.4) L 09/03/19 04:33 Abs React Lymphs (Man) 0.0 K/mm3 09/03/19 04:33 Monocytes # (Manual) 0.2 K/mm3 (0.0-0.8) 09/03/19 04:33 Eosinophils # (Manual) 0.0 K/mm3 (0.0-0.4) 09/03/19 04:33 Basophils # (Manual) 0.0 K/mm3 (0.0-0.1) 09/03/19 04:33 Metamyelocytes # 0.2 K/mm3 09/03/19 04:33 Myelocytes # 0.0 K/mm3 09/03/19 04:33 Promyelocytes # 0.0 K/mm3 09/03/19 04:33 Blast Cells # 0.0 K/mm3 09/03/19 04:33 WBC Morphology Not Reportable 09/03/19 04:33 Hypersegmented Neuts Not Reportable 09/03/19 04:33 Hyposegmented Neuts Not Reportable 09/03/19 04:33 Hypogranular Neuts Not Reportable 09/03/19 04:33 Smudge Cells Not Reportable 09/03/19 04:33 Toxic Granulation Not Reportable 09/03/19 04:33 Toxic Vacuolation Not Reportable 09/03/19 04:33 Dohle Bodies Not Reportable 09/03/19 04:33 Pelger-Huet Anomaly Not Reportable 09/03/19 04:33 Rose Rods Not Reportable 09/03/19 04:33 Platelet Estimate Consistent w auto 09/03/19 04:33 Clumped Platelets Not Reportable 09/03/19 04:33 Plt Clumps, EDTA Not Reportable 09/03/19 04:33 Large Platelets Not Reportable 09/03/19 04:33 Giant Platelets Not Reportable 09/03/19 04:33 Platelet Satelliting Not Reportable 09/03/19 04:33 Plt Morphology Comment Not Reportable 09/03/19 04:33 RBC Morphology Not Reportable 09/03/19 04:33 Dimorphic RBCs Not Reportable 09/03/19 04:33 Polychromasia Not Reportable 09/03/19 04:33 Hypochromasia Not Reportable 09/03/19 04:33 Poikilocytosis 1+ 09/03/19 04:33 Anisocytosis 1+ 09/03/19 04:33 Microcytosis Few 09/03/19 04:33 Macrocytosis Rare 09/03/19 04:33 Spherocytes Not Reportable 09/03/19 04:33 Pappenheimer Bodies Not Reportable 09/03/19 04:33 Sickle Cells Not Reportable 09/03/19 04:33 Target Cells Not Reportable 09/03/19 04:33 Tear Drop Cells Rare 09/03/19 04:33 Ovalocytes Not Reportable 09/03/19 04:33 Helmet Cells Not Reportable 09/03/19 04:33 Benavidez-[place] Bodies Not Reportable 09/03/19 04:33 Pinnacle Rings Not Reportable 09/03/19 04:33 [place] Cells Not Reportable 09/03/19 04:33 Bite Cells Not Reportable 09/03/19 04:33 Crenated Cell Not Reportable 09/03/19 04:33 Elliptocytes Few 09/03/19 04:33 Acanthocytes (Spur) Not Reportable 09/03/19 04:33 Rouleaux Not Reportable 09/03/19 04:33 Hemoglobin C Crystals Not Reportable 09/03/19 04:33 Schistocytes Not Reportable 09/03/19 04:33 Malaria parasites Not Reportable 09/03/19 04:33 Dinesh Bodies Not Reportable 09/03/19 04:33 Hem Pathologist Commnt No 09/03/19 04:33 POC ABG pH 7.487 (7.35-7.45) H 09/04/19 18:49 POC ABG pCO2 33.3 (35-45) L 09/04/19 18:49 POC ABG pO2 120 (80-105) H 09/04/19 18:49 POC ABG HCO3 25.2 (22-26 mml/L) 09/04/19 18:49 POC ABG Total CO2 26 (23-27mmol/L) 09/04/19 18:49 POC ABG O2 Sat 99 09/04/19 18:49 POC ABG Base Excess 2 ((-2) - (+3)mmol/L) 09/04/19 18:49 FiO2 24 % 09/04/19 18:49 Sodium 137 mmol/L (137-145) 09/09/19 09:50 Potassium 4.0 mmol/L (3.6-5.0) 09/09/19 09:50 Chloride 92.3 mmol/L (98-107) L 09/09/19 09:50 Carbon Dioxide 25 mmol/L (22-30) 09/09/19 09:50 Anion Gap 24 mmol/L 09/09/19 09:50 BUN 92 mg/dL (7-17) H 09/09/19 09:50 Creatinine 5.5 mg/dL (0.7-1.2) H 09/09/19 09:50 Estimated GFR 11 ml/min 09/09/19 09:50 BUN/Creatinine Ratio 17 % 09/09/19 09:50 Glucose 170 mg/dL (65-100) H 09/09/19 09:50 POC Glucose 148 (70-105) H 09/09/19 12:03 Calcium 8.7 mg/dL (8.4-10.2) 09/09/19 09:50 Phosphorus 5.30 mg/dL (2.5-4.5) H 09/04/19 04:40 Magnesium 2.00 mg/dL (1.7-2.3) 09/05/19 03:40 Total Bilirubin 0.50 mg/dL (0.1-1.2) 09/06/19 04:17 Direct Bilirubin 0.3 mg/dL (0-0.2) H 09/04/19 04:40 Indirect Bilirubin 0.1 mg/dL 09/04/19 04:40 AST 14 units/L (5-40) 09/06/19 04:17 ALT 6 units/L (7-56) L 09/06/19 04:17 Alkaline Phosphatase 151 units/L (35-129) H 09/06/19 04:17 Total Creatine Kinase 42 units/L (30-135) 08/20/19 10:38 CK-MB (CK-2) 4.5 ng/mL (0.0-4.0) H 08/20/19 10:38 CK-MB (CK-2) Rel Index 10.7 (0-4) H 08/20/19 10:38 Troponin T 0.323 ng/mL (0.00-0.029) H* 08/20/19 10:38 C-Reactive Protein 26.00 mg/dL (0.00-1.30) H 09/02/19 09:15 Total Protein 5.2 g/dL (6.3-8.2) L 09/06/19 04:17 Albumin 1.5 g/dL (3.9-5) L 09/06/19 04:17 Albumin/Globulin Ratio 0.4 % 09/06/19 04:17 Triglycerides 132 mg/dL (2-149) 08/26/19 12:33 Cholesterol 83 mg/dL (50-199) 08/19/19 20:48 LDL Cholesterol Direct 34 mg/dL (50-130) L 08/19/19 20:48 HDL Cholesterol 19 mg/dL (40-59) L 08/19/19 20:48 Cholesterol/HDL Ratio 4.36 % 08/19/19 20:48 Lipase 212 units/L (13-60) H 09/02/19 09:15 Hepatitis A IgM Ab Non-reactive (NonReactive) 08/22/19 22:30 Hep Bs Antigen Non-reactive (Negative) 08/22/19 22:30 Hep B Core IgM Ab Non-reactive (NonReactive) 08/22/19 22:30 Hepatitis C Antibody Non-reactive (NonReactive) 08/22/19 22:30 Blood Type A POSITIVE 09/05/19 09:21 Antibody Screen Negative 09/05/19 09:21 Crossmatch See Detail 09/05/19 09:21 Active Medications - Current Medications Current Medications: Generic Name Dose Route Start Last Admin Trade Name Freq PRN Reason Stop Dose Admin Acetaminophen 650 mg 08/19/19 22:44 09/03/19 20:59 Tylenol PO 650 mg Q4H PRN Administration Pain MILD(1-3)/Fever >100.5/PORTER Acetaminophen 650 mg 08/26/19 13:00 09/03/19 04:11 Tylenol WI 650 mg Q6H PRN Administration Pain, Mild (1-3) Albuterol 2.5 mg 08/20/19 09:00 09/07/19 18:25 Proventil IH 2.5 mg QID PRN Administration Wheezing Clonidine HCl 0.3 mg 09/03/19 14:00 09/03/19 19:49 Catapres-Tts Patch TD Not Given Sa JOEL Cyanocobalamin 1,000 mcg 08/20/19 10:00 09/09/19 10:31 Vitamin B-12 PO 1,000 mcg QDAY JOEL Administration Dextrose 0 ml 08/19/19 22:43 09/08/19 18:05 D50w (25gm) Syringe IV 50 ml Q30MIN PRN Administration Hypoglycemia Diphenhydramine HCl 25 mg 08/22/19 22:22 09/08/19 21:26 Benadryl IV 25 mg Q6H PRN Administration Itching Epoetin Mitch 20,000 unit 08/20/19 09:17 09/08/19 13:24 Procrit SUB-Q 20,000 unit FAN PRN Administration hemodialysis Folic Acid 1 mg 08/20/19 10:00 09/09/19 10:31 Folvite PO 1 mg QDAY JOEL Administration Haloperidol Lactate 5 mg 09/02/19 11:00 09/07/19 22:22 Haldol IM 5 mg Q6H PRN Administration Agitation Hydroxychloroquine Sulfate 200 mg 08/20/19 10:00 09/09/19 10:32 Plaquenil PO 200 mg QDAY JOEL Administration Hydroxyzine HCl 50 mg 08/20/19 10:00 09/09/19 10:31 Atarax PO 50 mg QDAY JOEL Administration Levetiracetam 750 mg/ Dextrose 107.5 mls @ 107.5 mls/hr 08/26/19 12:30 09/09/19 10:32 IV 400 mls/hr Q12HR JOEL Administration Meropenem 500 mg in 50 mls @ 50 mls/hr 09/04/19 14:00 09/08/19 15:04 Merrem/Ns 500 Mg/50 Ml IV 50 mls/hr Q24H JOEL Administration Sodium Chloride 100 mls @ 999 mls/hr 09/08/19 08:23 Nacl 0.9% IV FAN PRN Hypotension Insulin Glargine 10 units 09/02/19 11:30 09/08/19 09:32 Lantus SUB-Q 10 units QAMDIAB JOEL Administration Insulin Human Lispro 0 unit 09/07/19 12:00 09/09/19 06:34 Humalog SUB-Q 3 unit Q6HR JOEL Administration Protocol Losartan Potassium 50 mg 08/20/19 10:00 09/09/19 10:31 Cozaar PO 50 mg QDAY JOEL Administration Melatonin 5 mg 08/25/19 22:00 09/08/19 21:28 Melatonin PO 5 mg QHS JOEL Administration Metoclopramide HCl 5 mg 09/01/19 13:00 09/07/19 22:22 Reglan IV 5 mg Q6H PRN Administration Nausea And Vomiting Metoprolol Tartrate 5 mg 09/01/19 18:48 09/08/19 05:18 Metoprolol IV 5 mg Q6HR PRN Administration Hypertension Morphine Sulfate 1 mg 09/02/19 11:30 09/09/19 08:05 Morphine IV 1 mg Q4H PRN Administration Pain , Severe (7-10) Mycophenolate Mofetil 500 mg 08/20/19 10:00 09/08/19 09:33 Cellcept PO 500 mg QDAY JOEL Administration Olanzapine 5 mg 09/02/19 13:00 09/09/19 10:31 Zyprexa Zydis PO 5 mg BID JOEL Administration Ondansetron HCl 4 mg 08/21/19 13:00 09/09/19 00:43 Zofran IV 4 mg Q4H PRN Administration Nausea And Vomiting Pantoprazole Sodium 40 mg 09/04/19 22:00 09/09/19 10:31 Protonix IV 40 mg BID JOEL Administration Promethazine HCl 25 mg 08/21/19 12:46 Phenergan WI Q6H PRN Nausea And Vomiting Sevelamer Carbonate 800 mg 08/20/19 16:30 09/08/19 15:53 Renvela PO Not Given 0730,1630 JOEL Sodium Chloride 10 ml 08/20/19 10:00 09/09/19 10:32 Sodium Chloride Flush Syringe 10 Ml IV 10 ml BID JOEL Administration Sodium Chloride 10 ml 08/19/19 22:44 09/05/19 17:22 Sodium Chloride Flush Syringe 10 Ml IV 10 ml PRN PRN Administration LINE FLUSH Nutrition/Malnutrition Assess - Dietary Evaluation Nutrition/Malnutrition Findings: Nutrition Notes Start: 08/20/19 10:47 Freq: Status: Active Protocol: Document 09/08/19 12:23 RS (Rec: 09/08/19 12:29 RS [email or web address]) Co-Sign 09/08/19 12:23 KH Nutrition Notes Initial or Follow up Reassessment Current Diagnosis CKD (stage V CKD),Diabetes, Hypertension Other Pertinent Diagnosis Necrotizing pancreatitis, Encephalopathy, SLE Current Diet 12hr cyclic CPN (80/140/80) Labs/Tests Reviewed Pertinent Medications Reviewed Height 5 ft 4 in Weight 72 kg [place] Body Weight (kg) 54.54 BMI 27.2 Subjective/Other Information Day 20 CPN. Pt in HD lab. Percent of energy/protein needs met: 82% kcal and 100% PRO Burn Absent Trauma Absent Minimum of two criteria No #1 Nutrition Diagnosis Inadequate oral intake Diagnosis Progress(for reassessment Continues documentation) Is patient on ventilator? No Is Patient Ambulatory and/or Out of Bed No REE-([facility]-confined to bed) 1712.016 Calculation Used for Recommendations [facility] Additional Notes Protein Needs >1.2g/kg: >86g/ day Fluid needs 1-1.5L/day Nutrition Intervention Change Diet Order: Continue CPN Nutrition Support: Continue 12hr cyclic CPN: 13% dextrose, MVI, TEP, Osmolality: 1518. Kcal 1,080 Protein (gm) 100 Carbohydrates (gm) 200 Fat (gm) 0 Fluid (mL) 2,016 Fiber (gm) 0 Goal #1 Meet at least 75% of calorie and protein needs via CPN Anticipated Discharge Needs: Home cyclic CPN Follow-Up By: 09/09/19 Additional Comments Labs in AM: BMP
--- NOTE | 2019-09-09 12:25 | Event Note ---
Date: 09/09/19 I called [place] transfer center [phone], and discussed about the possible transfer Initially transfer center nurse said she would contact receiving hospitalists and call me back. As I did not receive a call from the hospital now for, I called back again to transfer center And discussed with nurse, who reported that they have an emergency ID dissection And that she would call back. Awaiting call back to transfer the patient to [facility]
--- NOTE | 2019-09-09 14:47 | Event Note ---
Date: 09/09/19 Called [place] transfer center and discussed the case with receiving hospitalist Dr. Grace Who accepted the patient and requested to send CDs of imaging studies and pertinent information As well as discharge summary. Transfer center nurse reports that they do not have bed available at this point however They will make one available and call back the floor for transfer. The above information is conveyed to patient's nurse charge nurse and the case management
--- NOTE | 2019-09-09 15:09 | Progress Note ---
Assessment and Plan Cultures: (from this admission) 09/03/19 blood culture - NGTD A/P: 29 yo F PMhx SLE, ESRD on HD, HTN, anemia admitted with placement issues and developed worsening necrotizing pancreatitis 1. Acute sepsis - present with fevers and leukocytosis, secondary to pancr eatitis. Patient pending transfer to [facility] for posible debridement and source control of the pancreatitis, which would likely help ameliorate the fevers 2. Necrotizing pancreatitis with pseudocysts - Continue meropenem for now, pending transfer to [facility]. 3. ESRD on HD - renally dose antibiotics as appropriate Recs: -continue meropenem 500mg q24h - pending transfer to [facility]. Thank you for the consult, we will continue to follow. Almas Merino MD [facility] ([facility]) M: [phone] O: [phone] F: [phone] Subjective Date of service: 09/09/19 Principal diagnosis: pancreatitis Interval history: No acute change today. Pending transfer to [facility]. Febrile today Objective - Exam Narrative Exam: Constitutional: Alert, cooperative. No acute distress Head, Ears, Nose: Normocephalic, atraumatic. External ears, nose normal Eyes: Conjunctivae/corneas clear. No icterus. No ptosis. Neck: Supple, no meningeal signs Oral: dentition fair, no thrush Cardiovascular: S1, S2 normal. Respiratory: Good air entry, clear to auscultation bilaterally GI: Soft, non-tender; bowel sounds normal. No peritoneal signs. Musculoskeletal: No pedal edema, no cyanosis. Skin: No rash or abscess Hem/Lymphatic: No palpable cervical or supraclavicular nodes. No lymphangitis Psych: Mood ok. Affect normal Neurological: Awake, alert, oriented. No gross abnormality - Constitutional Vitals: Vital Signs Temp Pulse Resp BP Pulse Ox 98.6 F 85 18 120/75 96 09/09/19 08:00 09/09/19 08:00 09/09/19 08:00 09/09/19 08:00 09/09/19 08:24 Temperature -Last 24 Hours Temperature 98.6 F Temperature 98.4 F Temperature 98.4 F Temperature 98.3 F Temperature 99.1 F - Labs CBC & Chem 7: 09/07/19 05:15 09/09/19 09:50 Labs: Abnormal lab results 09/08/19 09/08/19 09/08/19 Range/Units 17:20 18:11 18:42 Chloride (98-107) mmol/L BUN (7-17) mg/dL Creatinine (0.7-1.2) mg/dL Glucose (65-100) mg/dL POC Glucose 64 L 45 L 167 H (70-105) 09/08/19 09/09/19 09/09/19 Range/Units 22:05 01:12 06:33 Chloride (98-107) mmol/L BUN (7-17) mg/dL Creatinine (0.7-1.2) mg/dL Glucose (65-100) mg/dL POC Glucose 65 L 121 H 248 H (70-105) 09/09/19 09/09/19 09/09/19 Range/Units 08:49 09:50 12:03 Chloride 92.3 L (98-107) mmol/L BUN 92 H (7-17) mg/dL Creatinine 5.5 H (0.7-1.2) mg/dL Glucose 170 H (65-100) mg/dL POC Glucose 200 H 148 H (70-105)
[2019-09-09] MEDS: MEROPENEM/NS 500 MG/50 ML 500 MG/50 ML BAG IV SCH (15:28)
--- NOTE | 2019-09-09 15:34 | Discharge Summary ---
Providers - Providers Date of Admission: 08/19/19 22:44 Date of discharge: 09/09/19 Attending physician: JUAN PABLO HICKEY 08/19/19 19:03 Consult to Case Management [CONS] Stat Services Needed at Discharge: Home Health Services Notified:: social media editor 08/19/19 22:44 Consult to Physician [CONS] Routine Comment: Consulting Provider: ODELL ROMERO Physician Instructions: Reason For Exam: hd 08/19/19 23:27 Consult to Dietitian/Nutrition [CONS] Routine Physician Instructions: Reason For Exam: Reason for Consult: Patient on ventilator Reason for Consult: Write/Manage TPN/PPN 08/20/19 01:59 Consult to Wound/ET Nurse [CONS] Routine Reason For Exam: wound eval 08/20/19 09:46 Consult to Dietitian/Nutrition [CONS] Routine Physician Instructions: Reason For Exam: Reason for Consult: Write/Manage TPN/PPN 08/20/19 15:56 psychiatry consult [Consult to Mental Health] [CONS] Routine Reason For Exam: delusion Place consult to:: mental health Notified:: Maria G BRICE Phone number called:: [phone] Was contact made?: Yes If yes, spoke with:: [facility] Time called:: 08:00 08/22/19 13:41 Physical Therapy Evaluation and Treat [CONS] Routine Comment: Reason For Exam: ataxia 08/31/19 13:48 Consult to Dietitian/Nutrition [CONS] Routine Physician Instructions: Reason For Exam: Reason for Consult: Write/Manage TPN/PPN 09/01/19 08:56 Consult to Physician [CONS] Routine Comment: Consulting Provider: BEST KERN Physician Instructions: Reason For Exam: worsening pancreatitis 09/01/19 10:35 Consult to Physician [CONS] Routine Comment: Consulting Provider: IRASEMA MARTINEZ Physician Instructions: Reason For Exam: Worsening pancreatitis. 09/01/19 12:10 Consult to Interventional Radiology [CONS] Routine Consulting Provider: STEPHANIE GOODMAN Reason For Exam: CT guided drainage of LUQ pseudocyst Place consult to:: DR. GOODMAN Notified:: OFFICE Phone number called:: [phone] Was contact made?: Yes If yes, spoke with:: BALJEET Time called:: 12:41 09/03/19 14:20 Consult to Physician [CONS] Routine Comment: Consulting Provider: FEDERICA MIRAMONTES Physician Instructions: Reason For Exam: respiratory failure 09/05/19 14:40 Consult to Physician [CONS] Routine Comment: Consulting Provider: JUAN ALLEN Physician Instructions: Reason For Exam: Patient on Meropenem for necrotizing pancreatitis Primary care physician: CERTIFIED NURSING ASSISTANT Hospitalization Reason for admission: Altered level of consciousness Condition: Poor Pertinent studies: Chest x-ray Echocardiogram MRI MRA CT abdomen and pelvis Hospital course: 29-year-old woman with lupus, end-stage renal disease, hypertension, anemia, seizure disorder, delusional psych disorder was recently discharged from the hospital after being treated for necrotizing pancreatitis, sepsis and right labial abscess on home TPN with home health,Patient was brought to the hospital the next day as family was unable to care for the patient .Patient was admitted with altered level of consciousness, evaluated by multiple specialists managed appropriately, received hemodialysis per schedule. Patient Suddenly developed severe abdominal pain CT A/P 08/31/19 worsening pancreatitis. multiple pseudocysts, large left upper quadrant pseudocyst compressing on stomach leading to symptoms of nausea vomiting Patient was evaluated by surgery , recommended transfer to [facility] for further evaluation and management by pancreaticobiliary surgeon Dr. Nguyen spoke with Adilene Diane [pancreatic biliary surgery]. and Dr. Rivera [GI biliary]. For possible ERCP/surgical intervention if needed. Accepted for transfer however ICU beds were not available at the time and the whole week since 08/31/2019 Since then patient's symptoms significantly improved, downgraded to telemetry and d/w [facility] transfer center and /hospitalist accepted for transfer to [facility] today. Patient is hemodynamically stable, with guarded prognosis. Discharge Diagnosis: --Multiple Pseudocysts: TPN, supportive care. surg evaluated Rec transf to [facility] for GI/hepatobiliary GI evaluation --Necrotizing pancreatitis: TPN, IV fluids, supportive care --Acute hypoxic respiratory failure; resolved Due to volume overload ,worsening necrotizing pancreatitis Oxygen titrate O2 sats to more than 90%, supportive care --Acute sepsis with tachycardia, worsening necrotizing pancreatitis On Meropenem rec by ID --Accerelated HTN : Antihypertensives and when necessary medications --Anemia of chronic disease; improved s/p 3 unit of PRBC transfusion, Procrit during --Delusions:unspecified personality disorder Psych evaluated, continue current psych medications --Acute metabolic encephalopathy MRI, MRA brain negative, lupus encephalopathy ruled out --History of seizure disorder; seizure precautions cont Keppra ,Ativan as needed. --Severe malnutrition, Continue TPN, dietary following --End-stage renal disease: Hemodialysis per schedule Nephrology following --H/O SLE: Continue mycophenolate and Plaquenil, steroid IV --Non-ST elevation IL Type 2. due to end-stage renal disease Cardiology evaluated , no workup needed no workup needed --Diabetes type 2, uncontrolled Accu-Chek sliding scale coverage and insulin long acting --DVT prophylaxis SCD --Chronic debility; PT, placement in detention facility when medically stable Patient is critically ill with poor prognosis Patient is being transferred to [facility] /hospitalist service Dr. Grace for further evaluation and management/Hepato biliary surg,Biliary GI Plan of care is reviewed for the patient, her nurse charge nurse and the case management Hemodynamically stable for discharge and transfer With guarded prognosis Disposition: [id number]/[place]-[id number] ANOTHER TYPE HLTHCARE Time spent for discharge: 45 min Core Measure Documentation - Palliative Care Palliative Care/ Comfort Measures: Not Applicable - Core Measures Any of the following diagnoses?: none Exam - Constitutional Vitals: Temp Pulse Resp BP Pulse Ox 98.3 F 127 H 19 94/51 100 09/09/19 11:00 09/09/19 11:00 09/09/19 11:00 09/09/19 11:00 09/09/19 11:00 General appearance: Present: no acute distress, cachectic, other (chronically ill looking) - EENT Eyes: Present: PERRL, EOM intact - Neck Neck: Present: supple, normal ROM - Respiratory Respiratory effort: normal Respiratory: bilateral: diminished, rales, negative: rhonchi, wheezing - Cardiovascular Rhythm: regular Heart Sounds: Present: S1 & S2 - Extremities Extremities: no ischemia, No edema Extremity abnormal: other (chronic skin changes) - Abdominal General gastrointestinal: Present: soft, non-tender, non-distended, normal bowel sounds - Integumentary Integumentary: Present: clear, warm - Musculoskeletal Musculoskeletal: strength equal bilaterally, generalized weakness - Psychiatric Psychiatric: appropriate mood/affect, cooperative - Neurologic Neurologic: moves all extremities Plan Activity: advance as tolerated Diet: other ( TPN) Additional Instructions: And is being transferred to [facility] to the hosp italist service/. Dr Grace, further evaluation and management by hepatobiliary surgery/biliary GI. Hemodialysis per schedule. Meropenem recommended by ID Follow up with: PRIMARY CARE, [Primary Care Provider] - 3-5 Days Prescriptions: Meropenem/Ns 500 mg/50 ml [Merrem/Ns 500 mg/50 ml] 500 mg IV DAILY 5 Days #5 bag
[2019-09-09] MEDS: SEVELAMER CARBONATE 800 MG TAB PO SCH (16:02)
[2019-09-09] MEDS: MYCOPHENOLATE 500 MG TAB PO SCH (16:02)
--- NOTE | 2019-09-09 18:44 | Progress Note ---
Assessment and Plan Patient awake. Weak . Resting on 2 litres O2. O2 saturation running 100%. 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 Patient not . Children 1. Chest xray reported cardiomegaly and pulmonary vascular congestion. - Patient Problems (1) Pulmonary vascular congestion Current Visit: Yes Status: Acute Plan to address problem: 1. Continue O2 2 litres via nasal canula. 2. Fluid restriction. 3. Lasix if she develops more shortness of breath. (2) Diabetes mellitus with hyperosmolarity without coma, with long-term current use of insulin Current Visit: Yes Status: Acute Plan to address problem: Management as per primary care. (3) NSTEMI (non-ST elevated myocardial infarction) Current Visit: Yes Status: Acute Plan to address problem: Management as per cardiology. (4) H/O acute pancreatitis Current Visit: No Status: Acute Plan to address problem: Management as per primary care. (5) End-stage renal disease needing dialysis Current Visit: Yes Status: Chronic Plan to address problem: Management as per nephrology. (6) Acute metabolic encephalopathy Current Visit: No Status: Acute Plan to address problem: Management as per primary care. (7) Hypertension Current Visit: No Status: Chronic Plan to address problem: Management as per primary care. (8) Lupus Current Visit: No Status: Chronic Plan to address problem: Patient is on Plaquanil. Management as per primary care. (9) Seizure disorder Current Visit: No Status: Chronic Plan to address problem: Management as per neurology. Subjective Date of service: 09/09/19 Principal diagnosis: pancreatitis Interval history: . Patient awake. Weak . Resting on 2 litres O2. O2 saturation running 100%. Denies smoking, alcohol or drug history.Patient worked in [employer] in [place]. Patient not . Children 1. Chest xray reported cardiomegaly and pulmonary vascular congestion. Objective Vital Signs - 12hr 09/09/19 09/09/19 09/09/19 07:52 07:53 08:00 Temperature 98.6 F 98.6 F Pulse Rate 81 85 Respiratory 18 18 Rate Blood Pressure 120/75 Blood Pressure 120/75 [Right] O2 Sat by Pulse 100 100 100 Oximetry 09/09/19 09/09/19 09/09/19 08:24 10:00 11:00 Temperature 98.3 F Pulse Rate 119 H 127 H Respiratory 19 Rate Blood Pressure 94/51 Blood Pressure [Right] O2 Sat by Pulse 96 100 Oximetry 09/09/19 15:50 Temperature 98.2 F Pulse Rate 113 H Respiratory 19 Rate Blood Pressure Blood Pressure 99/68 [Right] O2 Sat by Pulse 100 Oximetry Constitutional: no acute distress, alert, other (Mild respiratory distress.) Eyes: non-icteric ENT: oropharynx moist Neck: supple, no lymphadenopathy Effort: mildly labored Ascultation: Bilateral: diminished breath sounds, rales (FEW rales.) Cardiovascular: other (Tachycardia, rate 127.) Gastrointestinal: normoactive bowel sounds, soft, non-tender Integumentary: normal Extremities: no cyanosis, no edema Neurologic: non-focal exam, pupils equal and round Psychiatric: depressed CBC and BMP: 09/07/19 05:15 09/09/19 09:50 ABG, PT/INR, D-dimer: ABG POC ABG pH 7.487 (7.35-7.45) H 09/04/19 18:49 POC ABG pCO2 33.3 (35-45) L 09/04/19 18:49 POC ABG pO2 120 (80-105) H 09/04/19 18:49 POC ABG HCO3 25.2 (22-26 mml/L) 09/04/19 18:49 POC ABG Total CO2 26 (23-27mmol/L) 09/04/19 18:49 POC ABG O2 Sat 99 09/04/19 18:49 Abnormal lab findings: Abnormal Labs 08/19/19 08/19/19 08/19/19 20:48 20:48 23:48 WBC 17.2 H RBC 2.50 L Hgb 6.8 L Hct 22.3 L MCH 27 L RDW 18.6 H Lymph % (Auto) Esmeralda % (Auto) Esmeralda # Seg Neutrophils % Seg Neuts % (Manual) Lymphocytes % (Manual) Monocytes % (Manual) Nucleated RBC % Seg Neutrophils # Seg Neutrophils # Man Lymphocytes # (Manual) Monocytes # (Manual) POC ABG pH POC ABG pCO2 POC ABG pO2 Sodium 131 L Potassium 2.8 L* D Chloride 92.9 L Carbon Dioxide BUN 64 H Creatinine 5.2 H Glucose 981 H* POC Glucose Calcium 8.2 L Phosphorus Magnesium Direct Bilirubin ALT < 5 L Alkaline Phosphatase CK-MB (CK-2) 4.8 H CK-MB (CK-2) Rel Index 8.8 H Troponin T 0.249 H* 0.288 H* C-Reactive Protein Total Protein 4.7 L Albumin 1.9 L Triglycerides 197 H LDL Cholesterol Direct 34 L HDL Cholesterol 19 L Lipase 251 H Crossmatch 08/20/19 08/20/19 08/20/19 00:06 00:09 01:40 WBC RBC Hgb Hct MCH RDW Lymph % (Auto) Esmeralda % (Auto) Esmer[place]da # Seg Neutrophils % Seg Neuts % (Manual) Lymphocytes % (Manual) Monocytes % (Manual) Nucleated RBC % Seg Neutrophils # Seg Neutrophils # Man Lymphocytes # (Manual) Monocytes # (Manual) POC ABG pH POC ABG pCO2 POC ABG pO2 Sodium Potassium 3.3 L Chloride 96.6 L Carbon Dioxide BUN 71 H Creatinine 6.0 H Glucose 180 H POC Glucose 180 H 142 H Calcium Phosphorus Magnesium Direct Bilirubin ALT Alkaline Phosphatase CK-MB (CK-2) CK-MB (CK-2) Rel Index Troponin T C-Reactive Protein Total Protein Albumin Triglycerides LDL Cholesterol Direct HDL Cholesterol Lipase Crossmatch 08/20/19 08/20/19 08/20/19 10:38 10:38 17:24 WBC RBC Hgb Hct MCH RDW Lymph % (Auto) Esmeralda % (Auto) Esmeralda # Seg Neutrophils % Seg Neuts % (Manual) Lymphocytes % (Manual) Monocytes % (Manual) Nucleated RBC % Seg Neutrophils # Seg Neutrophils # Man Lymphocytes # (Manual) Monocytes # (Manual) POC ABG pH POC ABG pCO2 POC ABG pO2 Sodium Potassium 2.9 L* Chloride Carbon Dioxide 17 L D BUN 64 H Creatinine 5.6 H Glucose POC Glucose 124 H Calcium 6.8 L D Phosphorus Magnesium Direct Bilirubin ALT < 5 L Alkaline Phosphatase CK-MB (CK-2) 4.5 H CK-MB (CK-2) Rel Index 10.7 H Troponin T 0.323 H* C-Reactive Protein Total Protein 4.1 L Albumin 1.4 L Triglycerides LDL Cholesterol Direct HDL Cholesterol Lipase Crossmatch 08/20/19 08/20/19 08/21/19 20:20 21:25 07:55 WBC RBC Hgb Hct MCH RDW Lymph % (Auto) Esmeralda % (Auto) Esmer[place]da # Seg Neutrophils % Seg Neuts % (Manual) Lymphocytes % (Manual) Monocytes % (Manual) Nucleated RBC % Seg Neutrophils # Seg Neutrophils # Man Lymphocytes # (Manual) Monocytes # (Manual) POC ABG pH POC ABG pCO2 POC ABG pO2 Sodium Potassium 5.2 H D Chloride 97.6 L Carbon Dioxide BUN 52 H Creatinine 5.0 H Glucose 287 H POC Glucose 161 H Calcium Phosphorus Magnesium 1.60 L Direct Bilirubin ALT Alkaline Phosphatase CK-MB (CK-2) CK-MB (CK-2) Rel Index Troponin T C-Reactive Protein Total Protein Albumin Triglycerides LDL Cholesterol Direct HDL Cholesterol Lipase Crossmatch 08/21/19 08/21/19 08/21/19 08:04 12:04 16:30 WBC RBC Hgb Hct MCH RDW Lymph % (Auto) [place]mer[place]da % (Auto) [place]mer[place]da # Seg Neutrophils % Seg Neuts % (Manual) Lymphocytes % (Manual) Monocytes % (Manual) Nucleated RBC % Seg Neutrophils # Seg Neutrophils # Man Lymphocytes # (Manual) Monocytes # (Manual) POC ABG pH POC ABG pCO2 POC ABG pO2 Sodium Potassium Chloride Carbon Dioxide BUN Creatinine Glucose POC Glucose 157 H 188 H 255 H Calcium Phosphorus Magnesium Direct Bilirubin ALT Alkaline Phosphatase CK-MB (CK-2) CK-MB (CK-2) Rel Index Troponin T C-Reactive Protein Total Protein Albumin Triglycerides LDL Cholesterol Direct HDL Cholesterol Lipase Crossmatch 08/21/19 08/22/19 08/22/19 21:17 04:00 08:20 WBC RBC Hgb Hct MCH RDW Lymph % (Auto) [place]mer[place]da % (Auto) [place]mer[place]da # Seg Neutrophils % Seg Neuts % (Manual) Lymphocytes % (Manual) Monocytes % (Manual) Nucleated RBC % Seg Neutrophils # Seg Neutrophils # Man Lymphocytes # (Manual) Monocytes # (Manual) POC ABG pH POC ABG pCO2 POC ABG pO2 Sodium Potassium Chloride 96.4 L Carbon Dioxide BUN 65 H Creatinine 6.1 H Glucose 119 H POC Glucose 251 H 148 H Calcium 8.3 L Phosphorus Magnesium Direct Bilirubin ALT Alkaline Phosphatase CK-MB (CK-2) CK-MB (CK-2) Rel Index Troponin T C-Reactive Protein Total Protein Albumin Triglycerides LDL Cholesterol Direct HDL Cholesterol Lipase Crossmatch 08/22/19 08/22/19 08/22/19 14:45 16:29 21:04 WBC RBC Hgb 7.0 L Hct 22.3 L MCH RDW Lymph % (Auto) Esmeralda % (Auto) Esmer[place]da # Seg Neutrophils % Seg Neuts % (Manual) Lymphocytes % (Manual) Monocytes % (Manual) Nucleated RBC % Seg Neutrophils # Seg Neutrophils # Man Lymphocytes # (Manual) Monocytes # (Manual) POC ABG pH POC ABG pCO2 POC ABG pO2 Sodium Potassium Chloride Carbon Dioxide BUN Creatinine Glucose POC Glucose 115 H 162 H Calcium Phosphorus Magnesium Direct Bilirubin ALT Alkaline Phosphatase CK-MB (CK-2) CK-MB (CK-2) Rel Index Troponin T C-Reactive Protein Total Protein Albumin Triglycerides LDL Cholesterol Direct HDL Cholesterol Lipase Crossmatch 08/23/19 08/24/19 08/24/19 08:00 07:42 07:42 WBC 22.8 H RBC 2.47 L Hgb 6.7 L Hct 20.5 L MCH 27 L RDW 18.1 H Lymph % (Auto) [place]mer[place]da % (Auto) Esmer[place]da # Seg Neutrophils % Seg Neuts % (Manual) 95.0 H Lymphocytes % (Manual) 3.0 L Monocytes % (Manual) Nucleated RBC % Seg Neutrophils # Seg Neutrophils # Man 21.7 H Lymphocytes # (Manual) 0.7 L Monocytes # (Manual) POC ABG pH POC ABG pCO2 POC ABG pO2 Sodium 136 L Potassium 5.7 H D Chloride 92.2 L Carbon Dioxide 19 L BUN 107 H Creatinine 9.1 H Glucose POC Glucose 141 H Calcium Phosphorus 7.40 H Magnesium Direct Bilirubin ALT Alkaline Phosphatase CK-MB (CK-2) CK-MB (CK-2) Rel Index Troponin T C-Reactive Protein Total Protein Albumin Triglycerides LDL Cholesterol Direct HDL Cholesterol Lipase Crossmatch 08/24/19 08/24/19 08/25/19 18:53 23:32 05:00 WBC RBC Hgb Hct MCH RDW Lymph % (Auto) [place]mer[place]da % (Auto) [place]mer[place]da # Seg Neutrophils % Seg Neuts % (Manual) Lymphocytes % (Manual) Monocytes % (Manual) Nucleated RBC % Seg Neutrophils # Seg Neutrophils # Man Lymphocytes # (Manual) Monocytes # (Manual) POC ABG pH POC ABG pCO2 POC ABG pO2 Sodium Potassium Chloride 93.9 L Carbon Dioxide BUN 61 H Creatinine 5.3 H Glucose 166 H POC Glucose 169 H 139 H Calcium Phosphorus Magnesium Direct Bilirubin ALT Alkaline Phosphatase CK-MB (CK-2) CK-MB (CK-2) Rel Index Troponin T C-Reactive Protein Total Protein Albumin Triglycerides LDL Cholesterol Direct HDL Cholesterol Lipase Crossmatch 08/25/19 08/25/19 08/25/19 05:00 05:14 22:02 WBC 19.7 H RBC 2.45 L Hgb 6.6 L Hct 20.4 L MCH 27 L RDW 18.6 H Lymph % (Auto) [place]mer[place]da % (Auto) [place]mer[place]da # Seg Neutrophils % Seg Neuts % (Manual) 75.0 H Lymphocytes % (Manual) Monocytes % (Manual) Nucleated RBC % Seg Neutrophils # Seg Neutrophils # Man 14.8 H Lymphocytes # (Manual) Monocytes # (Manual) POC ABG pH POC ABG pCO2 POC ABG pO2 Sodium Potassium Chloride Carbon Dioxide BUN Creatinine Glucose POC Glucose 225 H 106 H Calcium Phosphorus Magnesium Direct Bilirubin ALT Alkaline Phosphatase CK-MB (CK-2) CK-MB (CK-2) Rel Index Troponin T C-Reactive Protein Total Protein Albumin Triglycerides LDL Cholesterol Direct HDL Cholesterol Lipase Crossmatch 08/26/19 08/26/19 08/26/19 07:39 11:31 12:33 WBC RBC Hgb Hct MCH RDW Lymph % (Auto) [place]mer[place]da % (Auto) [place]mer[place]da # Seg Neutrophils % Seg Neuts % (Manual) Lymphocytes % (Manual) Monocytes % (Manual) Nucleated RBC % Seg Neutrophils # Seg Neutrophils # Man Lymphocytes # (Manual) Monocytes # (Manual) POC ABG pH POC ABG pCO2 POC ABG pO2 Sodium Potassium Chloride Carbon Dioxide BUN Creatinine Glucose POC Glucose 212 H 110 H Calcium Phosphorus Magnesium Direct Bilirubin ALT Alkaline Phosphatase CK-MB (CK-2) CK-MB (CK-2) Rel Index Troponin T C-Reactive Protein Total Protein Albumin Triglycerides LDL Cholesterol Direct HDL Cholesterol Lipase Crossmatch See Detail 08/26/19 08/26/19 08/26/19 12:33 12:33 17:38 WBC 18.4 H RBC 2.43 L Hgb 6.3 L Hct 20.1 L MCH 26 L RDW 18.5 H Lymph % (Auto) Esmer[place]da % (Auto) Esmeralda # Seg Neutrophils % Seg Neuts % (Manual) 80.0 H Lymphocytes % (Manual) 9.0 L Monocytes % (Manual) Nucleated RBC % Seg Neutrophils # Seg Neutrophils # Man 14.7 H Lymphocytes # (Manual) Monocytes # (Manual) POC ABG pH POC ABG pCO2 POC ABG pO2 Sodium Potassium Chloride 93.4 L Carbon Dioxide BUN 95 H Creatinine 8.1 H D Glucose 119 H POC Glucose 196 H Calcium Phosphorus 5.00 H D Magnesium Direct Bilirubin ALT Alkaline Phosphatase CK-MB (CK-2) CK-MB (CK-2) Rel Index Troponin T C-Reactive Protein Total Protein Albumin Triglycerides LDL Cholesterol Direct HDL Cholesterol Lipase Crossmatch 08/26/19 08/27/19 08/27/19 22:08 07:40 07:40 WBC 14.4 H RBC 2.17 L Hgb 5.7 L* Hct 18.1 L* MCH 26 L RDW 18.6 H Lymph % (Auto) [place]mer[place]da % (Auto) [place]mer[place]da # Seg Neutrophils % Seg Neuts % (Manual) Lymphocytes % (Manual) Monocytes % (Manual) 8.0 H Nucleated RBC % Seg Neutrophils # Seg Neutrophils # Man 9.6 H Lymphocytes # (Manual) Monocytes # (Manual) 1.2 H POC ABG pH POC ABG pCO2 POC ABG pO2 Sodium 136 L Potassium Chloride 87.5 L Carbon Dioxide 20 L BUN 117 H Creatinine 9.0 H Glucose 379 H POC Glucose 252 H Calcium Phosphorus 7.10 H D Magnesium Direct Bilirubin ALT Alkaline Phosphatase CK-MB (CK-2) CK-MB (CK-2) Rel Index Troponin T C-Reactive Protein Total Protein Albumin Triglycerides LDL Cholesterol Direct HDL Cholesterol Lipase Crossmatch 08/27/19 08/27/19 08/27/19 08:13 09:02 09:42 WBC RBC Hgb Hct MCH RDW Lymph % (Auto) [place]mer[place]da % (Auto) [place]mer[place]da # Seg Neutrophils % Seg Neuts % (Manual) Lymphocytes % (Manual) Monocytes % (Manual) Nucleated RBC % Seg Neutrophils # Seg Neutrophils # Man Lymphocytes # (Manual) Monocytes # (Manual) POC ABG pH POC ABG pCO2 POC ABG pO2 Sodium Potassium Chloride Carbon Dioxide BUN Creatinine Glucose 578 H* POC Glucose > 500 H > 500 H Calcium Phosphorus Magnesium Direct Bilirubin ALT Alkaline Phosphatase CK-MB (CK-2) CK-MB (CK-2) Rel Index Troponin T C-Reactive Protein Total Protein Albumin Triglycerides LDL Cholesterol Direct HDL Cholesterol Lipase Crossmatch 08/27/19 08/28/19 08/28/19 10:14 01:05 05:25 WBC RBC Hgb Hct MCH RDW Lymph % (Auto) [place]mer[place]da % (Auto) [place]mer[place]da # Seg Neutrophils % Seg Neuts % (Manual) Lymphocytes % (Manual) Monocytes % (Manual) Nucleated RBC % Seg Neutrophils # Seg Neutrophils # Man Lymphocytes # (Manual) Monocytes # (Manual) POC ABG pH POC ABG pCO2 POC ABG pO2 Sodium Potassium 3.5 L D Chloride 93.6 L Carbon Dioxide BUN 72 H Creatinine 5.5 H Glucose 361 H POC Glucose 485 H 161 H Calcium Phosphorus Magnesium Direct Bilirubin ALT Alkaline Phosphatase CK-MB (CK-2) CK-MB (CK-2) Rel Index Troponin T C-Reactive Protein Total Protein Albumin Triglycerides LDL Cholesterol Direct HDL Cholesterol Lipase Crossmatch 08/28/19 08/28/19 08/28/19 07:40 10:44 12:30 WBC RBC 3.43 L Hgb 9.4 L D Hct 29.1 L D MCH RDW 17.0 H Lymph % (Auto) [place]mer[place]da % (Auto) [place]mer[place]da # Seg Neutrophils % Seg Neuts % (Manual) 81.0 H Lymphocytes % (Manual) Monocytes % (Manual) Nucleated RBC % Seg Neutrophils # Seg Neutrophils # Man 8.6 H Lymphocytes # (Manual) Monocytes # (Manual) POC ABG pH POC ABG pCO2 POC ABG pO2 Sodium Potassium Chloride Carbon Dioxide BUN Creatinine Glucose POC Glucose 362 H 355 H Calcium Phosphorus Magnesium Direct Bilirubin ALT Alkaline Phosphatase CK-MB (CK-2) CK-MB (CK-2) Rel Index Troponin T C-Reactive Protein Total Protein Albumin Triglycerides LDL Cholesterol Direct HDL Cholesterol Lipase Crossmatch 08/28/19 08/28/19 08/29/19 18:01 21:38 05:00 WBC 12.3 H RBC 3.29 L Hgb 8.8 L Hct 27.8 L MCH 27 L RDW 17.1 H Lymph % (Auto) Esmer[place]da % (Auto) Esmer[place]da # Seg Neutrophils % Seg Neuts % (Manual) 80.0 H Lymphocytes % (Manual) Monocytes % (Manual) Nucleated RBC % Seg Neutrophils # Seg Neutrophils # Man 9.8 H Lymphocytes # (Manual) Monocytes # (Manual) POC ABG pH POC ABG pCO2 POC ABG pO2 Sodium Potassium Chloride Carbon Dioxide BUN Creatinine Glucose POC Glucose 150 H 240 H Calcium Phosphorus Magnesium Direct Bilirubin ALT Alkaline Phosphatase CK-MB (CK-2) CK-MB (CK-2) Rel Index Troponin T C-Reactive Protein Total Protein Albumin Triglycerides LDL Cholesterol Direct HDL Cholesterol Lipase Crossmatch 08/29/19 08/29/19 08/29/19 05:00 07:59 13:02 WBC RBC Hgb Hct MCH RDW Lymph % (Auto) [place]mer[place]da % (Auto) [place]mer[place]da # Seg Neutrophils % Seg Neuts % (Manual) Lymphocytes % (Manual) Monocytes % (Manual) Nucleated RBC % Seg Neutrophils # Seg Neutrophils # Man Lymphocytes # (Manual) Monocytes # (Manual) POC ABG pH POC ABG pCO2 POC ABG pO2 Sodium Potassium 3.3 L Chloride 89.7 L Carbon Dioxide BUN 111 H Creatinine 6.9 H Glucose 374 H POC Glucose 373 H 59 L Calcium Phosphorus 5.90 H Magnesium Direct Bilirubin ALT 5 L Alkaline Phosphatase 173 H CK-MB (CK-2) CK-MB (CK-2) Rel Index Troponin T C-Reactive Protein Total Protein 5.5 L Albumin 2.0 L Triglycerides LDL Cholesterol Direct HDL Cholesterol Lipase Crossmatch 08/29/19 08/29/19 08/30/19 18:38 22:36 06:29 WBC RBC Hgb Hct MCH RDW Lymph % (Auto) [place]mer[place]da % (Auto) [place]mer[place] # Seg Neutrophils % Seg Neuts % (Manual) Lymphocytes % (Manual) Monocytes % (Manual) Nucleated RBC % Seg Neutrophils # Seg Neutrophils # Man Lymphocytes # (Manual) Monocytes # (Manual) POC ABG pH POC ABG pCO2 POC ABG pO2 Sodium Potassium Chloride Carbon Dioxide BUN Creatinine Glucose POC Glucose 111 H 157 H 427 H Calcium Phosphorus Magnesium Direct Bilirubin ALT Alkaline Phosphatase CK-MB (CK-2) CK-MB (CK-2) Rel Index Troponin T C-Reactive Protein Total Protein Albumin Triglycerides LDL Cholesterol Direct HDL Cholesterol Lipase Crossmatch 08/30/19 08/30/19 08/30/19 06:30 06:30 11:59 WBC 13.6 H RBC 3.22 L Hgb 8.9 L Hct 27.1 L MCH RDW 17.3 H Lymph % (Auto) [place]mer[place]da % (Auto) [place]mer[place]da # Seg Neutrophils % Seg Neuts % (Manual) 80.0 H Lymphocytes % (Manual) Monocytes % (Manual) Nucleated RBC % 2.0 H Seg Neutrophils # Seg Neutrophils # Man 10.9 H Lymphocytes # (Manual) Monocytes # (Manual) POC ABG pH POC ABG pCO2 POC ABG pO2 Sodium 136 L Potassium Chloride 86.8 L Carbon Dioxide 21 L BUN 141 H Creatinine 8.0 H Glucose 493 H POC Glucose 275 H Calcium Phosphorus 6.40 H Magnesium Direct Bilirubin ALT Alkaline Phosphatase CK-MB (CK-2) CK-MB (CK-2) Rel Index Troponin T C-Reactive Protein Total Protein Albumin Triglycerides LDL Cholesterol Direct HDL Cholesterol Lipase Crossmatch 10/29/19 10/30/19 10/30/19 21:28 05:45 05:45 WBC 11.8 H RBC 3.55 L Hgb 9.6 L Hct 30.1 L MCH 27 L RDW 17.3 H Lymph % (Auto) Esmer[place]da % (Auto) 12.5 H Esmeralda # 1.5 H Seg Neutrophils % 73.8 H Seg Neuts % (Manual) Lymphocytes % (Manual) Monocytes % (Manual) Nucleated RBC % Seg Neutrophils # 8.7 H Seg Neutrophils # Man Lymphocytes # (Manual) Monocytes # (Manual) POC ABG pH POC ABG pCO2 POC ABG pO2 Sodium 135 L Potassium Chloride 90.7 L Carbon Dioxide BUN 95 H Creatinine 5.9 H Glucose 406 H POC Glucose 183 H Calcium Phosphorus 4.90 H D Magnesium Direct Bilirubin ALT Alkaline Phosphatase CK-MB (CK-2) CK-MB (CK-2) Rel Index Troponin T C-Reactive Protein Total Protein Albumin Triglycerides LDL Cholesterol Direct HDL Cholesterol Lipase Crossmatch 08/31/19 08/31/19 08/31/19 06:16 12:18 17:03 WBC RBC Hgb Hct MCH RDW Lymph % (Auto) [place]mer[place]da % (Auto) [place]mer[place]da # Seg Neutrophils % Seg Neuts % (Manual) Lymphocytes % (Manual) Monocytes % (Manual) Nucleated RBC % Seg Neutrophils # Seg Neutrophils # Man Lymphocytes # (Manual) Monocytes # (Manual) POC ABG pH POC ABG pCO2 POC ABG pO2 Sodium Potassium Chloride Carbon Dioxide BUN Creatinine Glucose POC Glucose 407 H 199 H 118 H Calcium Phosphorus Magnesium Direct Bilirubin ALT Alkaline Phosphatase CK-MB (CK-2) CK-MB (CK-2) Rel Index Troponin T C-Reactive Protein Total Protein Albumin Triglycerides LDL Cholesterol Direct HDL Cholesterol Lipase Crossmatch 08/31/19 09/01/19 09/01/19 22:20 07:09 07:30 WBC RBC Hgb Hct MCH RDW Lymph % (Auto) [place]mer[place]da % (Auto) [place]mer[place]da # Seg Neutrophils % Seg Neuts % (Manual) Lymphocytes % (Manual) Monocytes % (Manual) Nucleated RBC % Seg Neutrophils # Seg Neutrophils # Man Lymphocytes # (Manual) Monocytes # (Manual) POC ABG pH POC ABG pCO2 POC ABG pO2 Sodium Potassium Chloride 89.2 L Carbon Dioxide BUN 125 H Creatinine 7.1 H Glucose 426 H POC Glucose 203 H 362 H Calcium Phosphorus 5.30 H Magnesium Direct Bilirubin ALT Alkaline Phosphatase CK-MB (CK-2) CK-MB (CK-2) Rel Index Troponin T C-Reactive Protein Total Protein Albumin Triglycerides LDL Cholesterol Direct HDL Cholesterol Lipase Crossmatch 09/01/19 09/01/19 09/01/19 08:35 11:27 18:42 WBC 22.8 H RBC 3.52 L Hgb 9.4 L Hct 29.5 L MCH 27 L RDW 18.3 H Lymph % (Auto) [place]mer[place]da % (Auto) [place]mer[place]da # Seg Neutrophils % Seg Neuts % (Manual) 98.0 H Lymphocytes % (Manual) 1.0 L Monocytes % (Manual) Nucleated RBC % Seg Neutrophils # Seg Neutrophils # Man 22.3 H Lymphocytes # (Manual) 0.2 L Monocytes # (Manual) POC ABG pH POC ABG pCO2 POC ABG pO2 Sodium Potassium Chloride Carbon Dioxide BUN Creatinine Glucose POC Glucose 325 H 162 H Calcium Phosphorus Magnesium Direct Bilirubin ALT Alkaline Phosphatase CK-MB (CK-2) CK-MB (CK-2) Rel Index Troponin T C-Reactive Protein Total Protein Albumin Triglycerides LDL Cholesterol Direct HDL Cholesterol Lipase Crossmatch 09/01/19 09/02/19 09/02/19 23:37 06:07 09:15 WBC 21.9 H RBC 2.60 L Hgb 7.0 L Hct 23.0 L D MCH 27 L RDW 19.1 H Lymph % (Auto) [place]mer[place]da % (Auto) Esmer[place]da # Seg Neutrophils % Seg Neuts % (Manual) 98.0 H Lymphocytes % (Manual) 2.0 L Monocytes % (Manual) Nucleated RBC % Seg Neutrophils # Seg Neutrophils # Man 21.5 H Lymphocytes # (Manual) 0.4 L Monocytes # (Manual) POC ABG pH POC ABG pCO2 POC ABG pO2 Sodium Potassium Chloride Carbon Dioxide BUN Creatinine Glucose POC Glucose 276 H 438 H Calcium Phosphorus Magnesium Direct Bilirubin ALT Alkaline Phosphatase CK-MB (CK-2) CK-MB (CK-2) Rel Index Troponin T C-Reactive Protein Total Protein Albumin Triglycerides LDL Cholesterol Direct HDL Cholesterol Lipase Crossmatch 09/02/19 09/02/19 09/02/19 09:15 12:45 18:19 WBC RBC Hgb Hct MCH RDW Lymph % (Auto) [place]mer[place]da % (Auto) [place]mer[place]da # Seg Neutrophils % Seg Neuts % (Manual) Lymphocytes % (Manual) Monocytes % (Manual) Nucleated RBC % Seg Neutrophils # Seg Neutrophils # Man Lymphocytes # (Manual) Monocytes # (Manual) POC ABG pH POC ABG pCO2 POC ABG pO2 Sodium 131 L Potassium Chloride 84.4 L Carbon Dioxide 19 L BUN 156 H Creatinine 7.6 H Glucose 849 H* POC Glucose 362 H 148 H Calcium 8.2 L Phosphorus Magnesium 1.60 L Direct Bilirubin ALT 6 L Alkaline Phosphatase 139 H CK-MB (CK-2) CK-MB (CK-2) Rel Index Troponin T C-Reactive Protein 26.00 H Total Protein 4.9 L Albumin 1.6 L Triglycerides LDL Cholesterol Direct HDL Cholesterol Lipase 212 H Crossmatch 09/03/19 09/03/19 09/03/19 00:06 04:33 04:33 WBC 22.2 H RBC 2.71 L Hgb 7.5 L Hct 23.3 L MCH RDW 18.1 H Lymph % (Auto) [place]mer[place]da % (Auto) [place]mer[place]da # Seg Neutrophils % Seg Neuts % (Manual) 94.0 H Lymphocytes % (Manual) 4.0 L Monocytes % (Manual) Nucleated RBC % Seg Neutrophils # Seg Neutrophils # Man 20.9 H Lymphocytes # (Manual) 0.9 L Monocytes # (Manual) POC ABG pH POC ABG pCO2 POC ABG pO2 Sodium Potassium Chloride Carbon Dioxide BUN 88 H Creatinine 5.0 H Glucose 331 H POC Glucose 277 H Calcium Phosphorus Magnesium Direct Bilirubin ALT Alkaline Phosphatase CK-MB (CK-2) CK-MB (CK-2) Rel Index Troponin T C-Reactive Protein Total Protein Albumin Triglycerides LDL Cholesterol Direct HDL Cholesterol Lipase Crossmatch 09/03/19 09/03/19 09/04/19 06:12 21:26 01:09 EST WBC RBC Hgb Hct MCH RDW Lymph % (Auto) [place]mer[place]da % (Auto) [place]mer[place]da # Seg Neutrophils % Seg Neuts % (Manual) Lymphocytes % (Manual) Monocytes % (Manual) Nucleated RBC % Seg Neutrophils # Seg Neutrophils # Man Lymphocytes # (Manual) Monocytes # (Manual) POC ABG pH POC ABG pCO2 POC ABG pO2 Sodium Potassium Chloride Carbon Dioxide BUN Creatinine Glucose POC Glucose 288 H 67 L 166 H Calcium Phosphorus Magnesium Direct Bilirubin ALT Alkaline Phosphatase CK-MB (CK-2) CK-MB (CK-2) Rel Index Troponin T C-Reactive Protein Total Protein Albumin Triglycerides LDL Cholesterol Direct HDL Cholesterol Lipase Crossmatch 09/04/19 09/04/19 09/04/19 04:40 04:40 04:40 WBC 19.5 H RBC 2.49 L Hgb 6.7 L Hct 21.3 L MCH 27 L RDW 17.8 H Lymph % (Auto) 10.7 L Esmeralda % (Auto) Esmeralda # 1.3 H Seg Neutrophils % 82.2 H Seg Neuts % (Manual) Lymphocytes % (Manual) Monocytes % (Manual) Nucleated RBC % Seg Neutrophils # 16.0 H Seg Neutrophils # Man Lymphocytes # (Manual) Monocytes # (Manual) POC ABG pH POC ABG pCO2 POC ABG pO2 Sodium Potassium Chloride 94.4 L Carbon Dioxide BUN 112 H Creatinine 6.3 H Glucose 273 H POC Glucose Calcium Phosphorus 5.30 H Magnesium Direct Bilirubin 0.3 H ALT Alkaline Phosphatase CK-MB (CK-2) CK-MB (CK-2) Rel Index Troponin T C-Reactive Protein Total Protein 5.0 L Albumin 1.5 L Triglycerides LDL Cholesterol Direct HDL Cholesterol Lipase Crossmatch 09/04/19 09/04/19 09/04/19 06:03 07:55 14:25 WBC 20.7 H RBC 2.45 L Hgb 6.5 L Hct 20.6 L MCH 26 L RDW 17.3 H Lymph % (Auto) [place]mer[place]da % (Auto) [place]mer[place]da # Seg Neutrophils % Seg Neuts % (Manual) Lymphocytes % (Manual) Monocytes % (Manual) Nucleated RBC % Seg Neutrophils # Seg Neutrophils # Man Lymphocytes # (Manual) Monocytes # (Manual) POC ABG pH POC ABG pCO2 POC ABG pO2 Sodium Potassium Chloride Carbon Dioxide BUN Creatinine Glucose POC Glucose 309 H 287 H Calcium Phosphorus Magnesium Direct Bilirubin ALT Alkaline Phosphatase CK-MB (CK-2) CK-MB (CK-2) Rel Index Troponin T C-Reactive Protein Total Protein Albumin Triglycerides LDL Cholesterol Direct HDL Cholesterol Lipase Crossmatch 09/04/19 09/04/19 09/05/19 16:40 18:49 03:40 WBC RBC Hgb Hct MCH RDW Lymph % (Auto) Esmeralda % (Auto) Esmeralda # Seg Neutrophils % Seg Neuts % (Manual) Lymphocytes % (Manual) Monocytes % (Manual) Nucleated RBC % Seg Neutrophils # Seg Neutrophils # Man Lymphocytes # (Manual) Monocytes # (Manual) POC ABG pH 7.487 H POC ABG pCO2 33.3 L POC ABG pO2 120 H Sodium Potassium Chloride 92.4 L Carbon Dioxide 21 L BUN 138 H Creatinine 7.2 H Glucose 214 H POC Glucose 66 L Calcium Phosphorus Magnesium Direct Bilirubin ALT Alkaline Phosphatase CK-MB (CK-2) CK-MB (CK-2) Rel Index Troponin T C-Reactive Protein Total Protein Albumin Triglycerides LDL Cholesterol Direct HDL Cholesterol Lipase Crossmatch 09/05/19 09/05/19 09/05/19 05:20 06:10 08:18 WBC 17.9 H RBC 2.44 L Hgb 6.5 L Hct 20.5 L MCH 27 L RDW 18.1 H Lymph % (Auto) 10.0 L Esmeralda % (Auto) Esmeralda # 1.2 H Seg Neutrophils % 83.0 H Seg Neuts % (Manual) Lymphocytes % (Manual) Monocytes % (Manual) Nucleated RBC % Seg Neutrophils # 14.8 H Seg Neutrophils # Man Lymphocytes # (Manual) Monocytes # (Manual) POC ABG pH POC ABG pCO2 POC ABG pO2 Sodium Potassium Chloride Carbon Dioxide BUN Creatinine Glucose POC Glucose 252 H 291 H Calcium Phosphorus Magnesium Direct Bilirubin ALT Alkaline Phosphatase CK-MB (CK-2) CK-MB (CK-2) Rel Index Troponin T C-Reactive Protein Total Protein Albumin Triglycerides LDL Cholesterol Direct HDL Cholesterol Lipase Crossmatch 09/05/19 09/05/19 09/06/19 09:21 11:35 04:17 WBC 16.0 H RBC 2.94 L Hgb 8.2 L Hct 25.3 L MCH RDW 16.4 H Lymph % (Auto) 12.5 L Esmeralda % (Auto) 10.1 H Esmeralda # 1.6 H Seg Neutrophils % 77.0 H Seg Neuts % (Manual) Lymphocytes % (Manual) Monocytes % (Manual) Nucleated RBC % Seg Neutrophils # 12.3 H Seg Neutrophils # Man Lymphocytes # (Manual) Monocytes # (Manual) POC ABG pH POC ABG pCO2 POC ABG pO2 Sodium Potassium Chloride Carbon Dioxide BUN Creatinine Glucose POC Glucose 201 H Calcium Phosphorus Magnesium Direct Bilirubin ALT Alkaline Phosphatase CK-MB (CK-2) CK-MB (CK-2) Rel Index Troponin T C-Reactive Protein Total Protein Albumin Triglycerides LDL Cholesterol Direct HDL Cholesterol Lipase Crossmatch See Detail 09/06/19 09/06/19 09/06/19 04:17 05:52 07:51 WBC RBC Hgb Hct MCH RDW Lymph % (Auto) Esmeralda % (Auto) Esmeralda # Seg Neutrophils % Seg Neuts % (Manual) Lymphocytes % (Manual) Monocytes % (Manual) Nucleated RBC % Seg Neutrophils # Seg Neutrophils # Man Lymphocytes # (Manual) Monocytes # (Manual) POC ABG pH POC ABG pCO2 POC ABG pO2 Sodium Potassium 3.5 L Chloride 94.2 L Carbon Dioxide BUN 88 H Creatinine 5.2 H Glucose 198 H POC Glucose 207 H 278 H Calcium Phosphorus Magnesium Direct Bilirubin ALT 6 L Alkaline Phosphatase 151 H CK-MB (CK-2) CK-MB (CK-2) Rel Index Troponin T C-Reactive Protein Total Protein 5.2 L Albumin 1.5 L Triglycerides LDL Cholesterol Direct HDL Cholesterol Lipase Crossmatch 09/06/19 09/06/19 09/07/19 11:19 21:33 05:15 WBC RBC Hgb Hct MCH RDW Lymph % (Auto) Esmeralda % (Auto) Esmeralda # Seg Neutrophils % Seg Neuts % (Manual) Lymphocytes % (Manual) Monocytes % (Manual) Nucleated RBC % Seg Neutrophils # Seg Neutrophils # Man Lymphocytes # (Manual) Monocytes # (Manual) POC ABG pH POC ABG pCO2 POC ABG pO2 Sodium Potassium Chloride 91.5 L Carbon Dioxide 21 L BUN 119 H Creatinine 6.4 H Glucose 185 H POC Glucose 149 H 124 H Calcium Phosphorus Magnesium Direct Bilirubin ALT Alkaline Phosphatase CK-MB (CK-2) CK-MB (CK-2) Rel Index Troponin T C-Reactive Protein Total Protein Albumin Triglycerides LDL Cholesterol Direct HDL Cholesterol Lipase Crossmatch 09/07/19 09/07/19 09/07/19 05:15 07:32 11:17 WBC 14.7 H RBC 2.88 L Hgb 8.0 L Hct 24.5 L MCH RDW 17.4 H Lymph % (Auto) Esmeralda % (Auto) 12.7 H Esmeralda # 1.9 H Seg Neutrophils % 70.6 H Seg Neuts % (Manual) Lymphocytes % (Manual) Monocytes % (Manual) Nucleated RBC % Seg Neutrophils # 10.4 H Seg Neutrophils # Man Lymphocytes # (Manual) Monocytes # (Manual) POC ABG pH POC ABG pCO2 POC ABG pO2 Sodium Potassium Chloride Carbon Dioxide BUN Creatinine Glucose POC Glucose 111 H 155 H Calcium Phosphorus Magnesium Direct Bilirubin ALT Alkaline Phosphatase CK-MB (CK-2) CK-MB (CK-2) Rel Index Troponin T C-Reactive Protein Total Protein Albumin Triglycerides LDL Cholesterol Direct HDL Cholesterol Lipase Crossmatch 09/07/19 09/07/19 09/07/19 16:40 17:48 22:17 WBC RBC Hgb Hct MCH RDW Lymph % (Auto) Esmeralda % (Auto) Esmeralda # Seg Neutrophils % Seg Neuts % (Manual) Lymphocytes % (Manual) Monocytes % (Manual) Nucleated RBC % Seg Neutrophils # Seg Neutrophils # Man Lymphocytes # (Manual) Monocytes # (Manual) POC ABG pH POC ABG pCO2 POC ABG pO2 Sodium Potassium Chloride Carbon Dioxide BUN Creatinine Glucose POC Glucose < 40 L < 40 L 129 H Calcium Phosphorus Magnesium Direct Bilirubin ALT Alkaline Phosphatase CK-MB (CK-2) CK-MB (CK-2) Rel Index Troponin T C-Reactive Protein Total Protein Albumin Triglycerides LDL Cholesterol Direct HDL Cholesterol Lipase Crossmatch 09/08/19 09/08/19 09/08/19 05:18 07:22 09:01 WBC RBC Hgb Hct MCH RDW Lymph % (Auto) Esmeralda % (Auto) Esmeralda # Seg Neutrophils % Seg Neuts % (Manual) Lymphocytes % (Manual) Monocytes % (Manual) Nucleated RBC % Seg Neutrophils # Seg Neutrophils # Man Lymphocytes # (Manual) Monocytes # (Manual) POC ABG pH POC ABG pCO2 POC ABG pO2 Sodium Potassium Chloride Carbon Dioxide BUN Creatinine Glucose POC Glucose 204 H 278 H 179 H Calcium Phosphorus Magnesium Direct Bilirubin ALT Alkaline Phosphatase CK-MB (CK-2) CK-MB (CK-2) Rel Index Troponin T C-Reactive Protein Total Protein Albumin Triglycerides LDL Cholesterol Direct HDL Cholesterol Lipase Crossmatch 09/08/19 09/08/19 09/08/19 09:50 17:20 18:11 WBC RBC Hgb Hct MCH RDW Lymph % (Auto) Esmeralda % (Auto) Esmeralda # Seg Neutrophils % Seg Neuts % (Manual) Lymphocytes % (Manual) Monocytes % (Manual) Nucleated RBC % Seg Neutrophils # Seg Neutrophils # Man Lymphocytes # (Manual) Monocytes # (Manual) POC ABG pH POC ABG pCO2 POC ABG pO2 Sodium Potassium Chloride 89.8 L Carbon Dioxide BUN 138 H Creatinine 7.5 H Glucose 132 H POC Glucose 64 L 45 L Calcium Phosphorus Magnesium Direct Bilirubin ALT Alkaline Phosphatase CK-MB (CK-2) CK-MB (CK-2) Rel Index Troponin T C-Reactive Protein Total Protein Albumin Triglycerides LDL Cholesterol Direct HDL Cholesterol Lipase Crossmatch 09/08/19 09/08/19 09/09/19 18:42 22:05 01:12 WBC RBC Hgb Hct MCH RDW Lymph % (Auto) Esmeralda % (Auto) Esmeralda # Seg Neutrophils % Seg Neuts % (Manual) Lymphocytes % (Manual) Monocytes % (Manual) Nucleated RBC % Seg Neutrophils # Seg Neutrophils # Man Lymphocytes # (Manual) Monocytes # (Manual) POC ABG pH POC ABG pCO2 POC ABG pO2 Sodium Potassium Chloride Carbon Dioxide BUN Creatinine Glucose POC Glucose 167 H 65 L 121 H Calcium Phosphorus Magnesium Direct Bilirubin ALT Alkaline Phosphatase CK-MB (CK-2) CK-MB (CK-2) Rel Index Troponin T C-Reactive Protein Total Protein Albumin Triglycerides LDL Cholesterol Direct HDL Cholesterol Lipase Crossmatch 09/09/19 09/09/19 09/09/19 06:33 08:49 09:50 WBC RBC Hgb Hct MCH RDW Lymph % (Auto) Esmeralda % (Auto) Esmeralda # Seg Neutrophils % Seg Neuts % (Manual) Lymphocytes % (Manual) Monocytes % (Manual) Nucleated RBC % Seg Neutrophils # Seg Neutrophils # Man Lymphocytes # (Manual) Monocytes # (Manual) POC ABG pH POC ABG pCO2 POC ABG pO2 Sodium Potassium Chloride 92.3 L Carbon Dioxide BUN 92 H Creatinine 5.5 H Glucose 170 H POC Glucose 248 H 200 H Calcium Phosphorus Magnesium Direct Bilirubin ALT Alkaline Phosphatase CK-MB (CK-2) CK-MB (CK-2) Rel Index Troponin T C-Reactive Protein Total Protein Albumin Triglycerides LDL Cholesterol Direct HDL Cholesterol Lipase Crossmatch 09/09/19 09/09/19 12:03 15:23 WBC RBC Hgb Hct MCH RDW Lymph % (Auto) Esmeralda % (Auto) Esmeralda # Seg Neutrophils % Seg Neuts % (Manual) Lymphocytes % (Manual) Monocytes % (Manual) Nucleated RBC % Seg Neutrophils # Seg Neutrophils # Man Lymphocytes # (Manual) Monocytes # (Manual) POC ABG pH POC ABG pCO2 POC ABG pO2 Sodium Potassium Chloride Carbon Dioxide BUN Creatinine Glucose POC Glucose 148 H 110 H Calcium Phosphorus Magnesium Direct Bilirubin ALT Alkaline Phosphatase CK-MB (CK-2) CK-MB (CK-2) Rel Index Troponin T C-Reactive Protein Total Protein Albumin Triglycerides LDL Cholesterol Direct HDL Cholesterol Lipase Crossmatch
[2019-09-09] MEDS ORDERED: TOTAL PARENTERAL NUTRITION 1,560 ML IV SCH (20:00)
[2019-09-09] MEDS ORDERED: FAT EMULSIONS 20% 250 ML IV SCH (20:00)
[2019-09-09] MEDS: MELATONIN 5 MG TAB PO SCH (21:24)
[2019-09-10] MEDS: INSULIN LISPRO 100 UNIT/ML SUB-Q SCH ×4 (01:06→17:16)
[2019-09-10] MEDS: MORPHINE 2 MG/1 ML INJ IV PRN ×4 (02:57→17:55)
[2019-09-10] MEDS: diphenhydrAMINE 50 MG/ML VIAL IV PRN ×3 (05:07→17:55)
[2019-09-10 05:14] LABS: Calcium 8.6 mg/dL (8.4-10.2)
[2019-09-10] MEDS: SEVELAMER CARBONATE 800 MG TAB PO SCH ×3 (07:00→17:16)
[2019-09-10] MEDS: ALBUTEROL 2.5 MG/3 ML NEBU IH PRN (08:23)
[2019-09-10] MEDS: INSULIN GLARGINE 100 UNITS/ML SUB-Q SCH (08:54)
[2019-09-10] MEDS: CYANOCOBALAMIN (VIT B-12) 1000 MCG TAB PO SCH (09:33)
[2019-09-10] MEDS: PANTOPRAZOLE 40 MG INJ IV SCH (09:33)
[2019-09-10] MEDS: FOLIC ACID 1 MG TAB PO SCH ×2 (09:33→09:48)
[2019-09-10] MEDS: hydrOXYzine HCL 25 MG TAB PO SCH ×2 (09:34→09:46)
[2019-09-10] MEDS: HYDROXYCHLOROQUINE 200 MG TAB PO SCH (09:34)
[2019-09-10] MEDS: LOSARTAN 50 MG TAB PO SCH ×2 (09:35→09:47)
[2019-09-10] MEDS: MYCOPHENOLATE 500 MG TAB PO SCH ×3 (09:35→12:13)
[2019-09-10] MEDS: OLANzapine ZYDIS 5 MG TAB PO SCH ×2 (09:37→09:46)
--- NOTE | 2019-09-10 10:08 | Progress Note ---
Assessment and Plan 1. ESRD: On maintenance hemodialysis three times a week, TTS schedule. Last dialyzed 09/08. HD today. 2. FEN: Hyperkalemia, improved. Metabolic acidosis, improved. Monitor lytes. 3. Anemia: Epogen with HD. S/p PRBC. 4. Seizures: On Keppra. 5. Metabolic encephalopathy. 6. Acute pancreatitis: CT abdomen showed worsening pancreatitis. Gen. Surgery recommended pancreatic drain, but pt refused. On PPN / TPN. 7. Tachycardia: Followed by Cards. 8. History of lupus: On Cellcept and Plaquenil. 9. Hyperglycemia. 10. Psychosis. 11. Deconditioning. Pending transfer to [place]. Examination: General appearance: well-developed, appears stated age, not in distress HEENT: ATNC, BORA Neck: trachea midline Respiratory: Clear to Ascultation Heart: regular, S1S2, no murmur, tachycardia Gastrointestinal: soft, distended, mild tenderness over the L side, normoactive bowel sound Integumentary: no rash, warm and dry Neurologic: alert, follows some command, answers questions, confusion noted Musculoskeletal: 1+ LE edema Hemodialysis access: L arm AVG Subjective Date of service: 09/10/19 Principal diagnosis: pancreatitis Interval history: Patient was seen and examined at the bedside. RN at the bedside. Objective - Vital Signs Vital signs: Vital Signs - 12hr 09/09/19 09/09/19 09/10/19 22:17 23:45 00:10 Temperature 99.1 F Pulse Rate 64 126 H Respiratory 18 Rate Blood Pressure 133/72 O2 Sat by Pulse 91 100 97 Oximetry 09/10/19 09/10/19 04:36 07:58 Temperature 99.5 F 98.0 F Pulse Rate 131 H 72 Respiratory 20 18 Rate Blood Pressure 143/82 122/77 O2 Sat by Pulse 97 98 Oximetry - Lab 09/07/19 05:15 09/10/19 04:40 Most recent lab results Calcium 8.6 mg/dL (8.4-10.2) 09/10/19 04:40 Phosphorus 5.30 mg/dL (2.5-4.5) H 09/04/19 04:40 Magnesium 2.00 mg/dL (1.7-2.3) 09/05/19 03:40 Medications & Allergies - Medications Allergies/Adverse Reactions: Allergies lactose Adverse Reaction (Verified 07/29/19 08:16) Unknown Home Medications: Home Medications Medication Instructions Recorded Confirmed Last Taken Type ALBUTEROL NEB's [Proventil 0.083% 2.5 mg IH QID PRN 07/26/19 08/21/19 07/25/19 History NEBS] Gabapentin 300 mg PO 3XW #60 08/18/19 08/21/19 08/21/19 15:58 Rx Hydroxychloroquine [Plaquenil] 200 mg PO QDAY #30 08/18/19 08/21/19 Unknown Rx Losartan [Cozaar] 50 mg PO QDAY #30 08/18/19 08/21/19 Unknown Rx Mycophenolate [Cellcept] 500 mg PO QDAY #30 08/18/19 08/21/19 08/21/19 15:56 Rx Sevelamer Carbonate [Renvela] 800 mg PO 0730,1630 #30 tablet 08/18/19 08/21/19 08/21/19 15:56 Rx Total Parenteral Nutrition [TPN 12 ml IV DAILY@2000 ml 08/18/19 08/21/19 08/21/19 15:55 Rx Adult] hydrOXYzine HCL [Atarax] 50 mg PO QDAY #30 08/18/19 08/21/19 Unknown Rx predniSONE [Deltasone] 20 mg PO QDAY #30 08/18/19 08/21/19 Unknown Rx Acetaminophen [Acetaminophen TAB] 650 mg PO Q4H PRN tablet 09/09/19 Unknown Rx Cyanocobalamin [Vitamin B-12] 1,000 mcg PO QDAY tablet 09/09/19 Unknown Rx Dextrose 50% in Water [D50W (25GM) 0 ml IV Q30MIN PRN syringe 09/09/19 Unknown Rx Syringe] Epoetin Mitch 20,000 Unit [Procrit] 20,000 unit SUB-Q FAN PRN vial 09/09/19 Unknown Rx Folic Acid [Folvite] 1 mg PO QDAY tablet 09/09/19 Unknown Rx Insulin Glargine [Lantus VIAL] 10 units SUB-Q QAMDIAB units 09/09/19 Unknown Rx Lispro Insulin [HumaLOG] 0 unit SUB-Q Q6HR units 09/09/19 Unknown Rx Melatonin [Melatonin 5MG TAB] 5 mg PO QHS tablet 09/09/19 Unknown Rx Meropenem/Ns 500 mg/50 ml 500 mg IV DAILY 5 Days #5 bag 09/09/19 Unknown Rx [Merrem/Ns 500 mg/50 ml] OLANzapine ZYDIS [ZyPREXA Zydis] 5 mg PO BID tab.rapdis 09/09/19 Unknown Rx Pantoprazole [Protonix INJ] 40 mg IV BID vial 09/09/19 Unknown Rx Promethazine [Phenergan SUPPOS] 25 mg CA Q6H PRN supp.rect 09/09/19 Unknown Rx Sevelamer Carbonate [Renvela] 800 mg PO 0730,1630 tablet 09/09/19 Unknown Rx cloNIDine-TTS PATCH [Catapres-Tts 0.3 mg TD Sa patch 09/09/19 Unknown Rx 0.3mg Patch] diphenhydrAMINE [Benadryl] 25 mg IV Q6H PRN vial 09/09/19 Unknown Rx Active Medications: Generic Name Dose Route Start Last Admin Trade Name Freq PRN Reason Stop Dose Admin Acetaminophen 650 mg 08/19/19 22:44 09/03/19 20:59 Tylenol PO 650 mg Q4H PRN Administration Pain MILD(1-3)/Fever >100.5/PORTER Acetaminophen 650 mg 08/26/19 13:00 09/03/19 04:11 Tylenol CA 650 mg Q6H PRN Administration Pain, Mild (1-3) Albuterol 2.5 mg 08/20/19 09:00 09/10/19 08:23 Proventil IH 2.5 mg QID PRN Administration Wheezing Clonidine HCl 0.3 mg 09/03/19 14:00 09/03/19 19:49 Catapres-Tts Patch TD Not Given Sa JOEL Cyanocobalamin 1,000 mcg 08/20/19 10:00 09/10/19 09:33 Vitamin B-12 PO 1,000 mcg QDAY JOEL Administration Dextrose 0 ml 08/19/19 22:43 09/08/19 18:05 D50w (25gm) Syringe IV 50 ml Q30MIN PRN Administration Hypoglycemia Diphenhydramine HCl 25 mg 08/22/19 22:22 09/10/19 09:33 Benadryl IV 25 mg Q6H PRN Administration Itching Epoetin Mitch 20,000 unit 08/20/19 09:17 09/08/19 13:24 Procrit SUB-Q 20,000 unit FAN PRN Administration hemodialysis Folic Acid 1 mg 08/20/19 10:00 09/10/19 09:48 Folvite PO Not Given QDAY [facility] Haloperidol Lactate 5 mg 09/02/19 11:00 09/07/19 22:22 Haldol IM 5 mg Q6H PRN Administration Agitation Hydroxychloroquine Sulfate 200 mg 08/20/19 10:00 09/10/19 09:34 Plaquenil PO 200 mg QDAY JOEL Administration Hydroxyzine HCl 50 mg 08/20/19 10:00 09/10/19 09:46 Atarax PO Not Given QDAY JOEL Levetiracetam 750 mg/ Dextrose 107.5 mls @ 107.5 mls/hr 08/26/19 12:30 09/09/19 22:18 IV 400 mls/hr Q12HR JOEL Administration Meropenem 500 mg in 50 mls @ 50 mls/hr 09/04/19 14:00 09/09/19 15:28 Merrem/Ns 500 Mg/50 Ml IV 50 mls/hr Q24H JOEL Administration Sodium Chloride 100 mls @ 999 mls/hr 09/08/19 08:23 Nacl 0.9% IV FAN PRN Hypotension Insulin Glargine 10 units 09/02/19 11:30 09/10/19 08:54 Lantus SUB-Q Not Given QAMDIAB [facility] Insulin Human Lispro 0 unit 09/07/19 12:00 09/10/19 06:08 Humalog SUB-Q 4 unit Q6HR JOEL Administration Protocol Losartan Potassium 50 mg 08/20/19 10:00 09/10/19 09:47 Cozaar PO Not Given QDAY [facility] Melatonin 5 mg 08/25/19 22:00 09/09/19 21:24 Melatonin PO Not Given QHS JOEL Metoclopramide HCl 5 mg 09/01/19 13:00 09/07/19 22:22 Reglan IV 5 mg Q6H PRN Administration Nausea And Vomiting Metoprolol Tartrate 5 mg 09/01/19 18:48 09/08/19 05:18 Metoprolol IV 5 mg Q6HR PRN Administration Hypertension Morphine Sulfate 1 mg 09/02/19 11:30 09/10/19 09:32 Morphine IV 1 mg Q4H PRN Administration Pain , Severe (7-10) Mycophenolate Mofetil 500 mg 08/20/19 10:00 09/10/19 09:47 Cellcept PO Not Given QDAY JOEL Olanzapine 5 mg 09/02/19 13:00 09/10/19 09:46 Zyprexa Zydis PO Not Given BID JOEL Ondansetron HCl 4 mg 08/21/19 13:00 09/09/19 00:43 Zofran IV 4 mg Q4H PRN Administration Nausea And Vomiting Pantoprazole Sodium 40 mg 09/04/19 22:00 09/10/19 09:33 Protonix IV 40 mg BID JOEL Administration Promethazine HCl 25 mg 08/21/19 12:46 Phenergan CA Q6H PRN Nausea And Vomiting Sevelamer Carbonate 800 mg 08/20/19 16:30 09/10/19 09:39 Renvela PO Not Given 0730,1630 JOEL Sodium Chloride 10 ml 08/20/19 10:00 09/10/19 09:36 Sodium Chloride Flush Syringe 10 Ml IV 10 ml BID JOEL Administration Sodium Chloride 10 ml 08/19/19 22:44 09/05/19 17:22 Sodium Chloride Flush Syringe 10 Ml IV 10 ml PRN PRN Administration LINE FLUSH
[2019-09-10] MEDS: levETIRAcetam 750 MG in DEXTROSE 5% IN WATER 100 ML IV SCH ×2 (10:52→21:01)
--- NOTE | 2019-09-10 11:03 | Progress Note ---
Assessment and Plan Assessment and plan: 29-year-old woman with lupus, end-stage renal disease, hypertension, anemia who was discharged from the hospital after being treated for necrotizing pancreatitis, sepsis and right labial abscess. Patient was discharged home with TPN with home health care but Family was unable to care for her and then b rought her back to the hospital on next day of her discharge. She is wheelchair-bound. Had intermittent seizures because of noncompliance. 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 Has severe anemia and s/p 2 units PRBC transfusion. Continue to have Ps ychosis with delusions,Psych evaluated.Family not willing to take her back, difficult placement. Patient developed severe abd pain CT A/P 08/31/19 worsening pancreatitis. multiple pseudocysts, Evaluated by general surgeon and GI. Plan to transfer to [place] for higher level of care -possible GI cinthia luation/hepatobiliary GI consultation, possible surgical intervention Patient was accepted by [facility], however did not have ICU beds, has had downgraded the patient to telemetry, requested floor beds. --Sinus tachycardia; due to underlying disease process Treat Underlying cause, supportive care --Multiple Pseudocysts: N.p.o., IV fluids Supportive care, patient refused NG tube Continue TPN, surg following Rec transf to [facility] for GI/hepatobiliary GI evaluation --Necrotizing pancreatitis: TPN, IV fluids, supportive care --Acute hypoxic respiratory failure Due to volume overload ,worsening necrotizing pancreatitis Oxygen titrate O2 sats to more than 90%, supportive care --Acute sepsis with tachycardia, elevated white count likely from worsening necrotizing pancreatitis . ID following NPO, IV hydration with TPN, continue meropenem --Accerelated HTN with tachycardia Continue current antihypertensives and as needed medications --Severe Anemia of chronic disease; improved s/p 3 unit of PRBC transfusion during dialysis, Procrit. monitor H&H and transfuse as needed --Delusions: Psych following Her family has reported that she has been having delusions and cannot take care of her and requested placement Psych following continue current management --Acute metabolic encephalopathy MRI, MRA brain negative, lupus encephalopathy ruled out --Severe malnutrition, Continue TPN, dietary following --End-stage renal disease, Continue dialysis --H/O SLE: Continue mycophenolate and Plaquenil, steroid IV --Non-ST elevation MD Type 2. due to end-stage renal disease Cardiology evaluated continue current management --Diabetes type 2, uncontrolled Accu-Chek sliding scale coverage and insulin long acting --DVT prophylaxis SCD --Chronic debility; PT, Awaiting placement in halfway facility Patient is critically ill with very poor prognosis. Patient is awaiting transfer to [facility]. Accepted by [Hospitalist] Waiting for callback from [place] with bed assignment. History Interval history: Patient Seen and examined No new complaints Vital signs reviewed [facility] Physical - Constitutional Vitals: Temp Pulse Resp BP Pulse Ox 98.0 F 72 18 122/77 98 09/10/19 07:58 09/10/19 07:58 09/10/19 07:58 09/10/19 07:58 09/10/19 07:58 General appearance: Present: no acute distress, cachectic, disheveled - EENT Eyes: Present: PERRL, EOM intact - Neck Neck: Present: supple, normal ROM - Respiratory Respiratory effort: normal Respiratory: bilateral: diminished, negative: rales, rhonchi, wheezing - Cardiovascular Rhythm: regular Heart Sounds: Present: S1 & S2 - Extremities Extremities: no ischemia, No edema - Abdominal General gastrointestinal: soft, non-tender, non-distended, normal bowel sounds - Integumentary Integumentary: Present: clear, warm - Psychiatric Psychiatric: appropriate mood/affect, cooperative - Neurologic Neurologic: moves all extremities Results - Labs CBC & Chem 7: 09/07/19 05:15 09/10/19 04:40 Labs: Laboratory Last Values WBC 14.7 K/mm3 (4.5-11.0) H 09/07/19 05:15 RBC 2.88 M/mm3 (3.65-5.03) L 09/07/19 05:15 Hgb 8.0 gm/dl (10.1-14.3) L 09/07/19 05:15 Hct 24.5 % (30.3-42.9) L 09/07/19 05:15 MCV 85 fl (79-97) 09/07/19 05:15 MCH 28 pg (28-32) 09/07/19 05:15 MCHC 33 % (30-34) 09/07/19 05:15 RDW 17.4 % (13.2-15.2) H 09/07/19 05:15 Plt Count 289 K/mm3 (140-440) 09/07/19 05:15 Lymph % (Auto) 16.3 % (13.4-35.0) 09/07/19 05:15 [place] % (Auto) 12.7 % (0.0-7.3) H 09/07/19 05:15 Eos % (Auto) 0.3 % (0.0-4.3) 09/07/19 05:15 Baso % (Auto) 0.1 % (0.0-1.8) 09/07/19 05:15 Lymph # 2.4 K/mm3 (1.2-5.4) 09/07/19 05:15 [place] # 1.9 K/mm3 (0.0-0.8) H 09/07/19 05:15 Eos # 0.0 K/mm3 (0.0-0.4) 09/07/19 05:15 Baso # 0.0 K/mm3 (0.0-0.1) 09/07/19 05:15 Add Manual Diff Complete 09/03/19 04:33 Total Counted 100 09/03/19 04:33 Seg Neutrophils % 70.6 % (40.0-70.0) H 09/07/19 05:15 Seg Neuts % (Manual) 94.0 % (40.0-70.0) H 09/03/19 04:33 Band Neutrophils % 0 % 09/03/19 04:33 Lymphocytes % (Manual) 4.0 % (13.4-35.0) L 09/03/19 04:33 Reactive Lymphs % (Man) 0 % 09/03/19 04:33 Monocytes % (Manual) 1.0 % (0.0-7.3) 09/03/19 04:33 Eosinophils % (Manual) 0 % (0.0-4.3) 09/03/19 04:33 Basophils % (Manual) 0 % (0.0-1.8) 09/03/19 04:33 Metamyelocytes % 1.0 % 09/03/19 04:33 Myelocytes % 0 % 09/03/19 04:33 Promyelocytes % 0 % 09/03/19 04:33 Blast Cells % 0 % 09/03/19 04:33 Nucleated RBC % Not Reportable 09/03/19 04:33 Seg Neutrophils # 10.4 K/mm3 (1.8-7.7) H 09/07/19 05:15 Seg Neutrophils # Man 20.9 K/mm3 (1.8-7.7) H 09/03/19 04:33 Band Neutrophils # 0.0 K/mm3 09/03/19 04:33 Lymphocytes # (Manual) 0.9 K/mm3 (1.2-5.4) L 09/03/19 04:33 Abs React Lymphs (Man) 0.0 K/mm3 09/03/19 04:33 Monocytes # (Manual) 0.2 K/mm3 (0.0-0.8) 09/03/19 04:33 Eosinophils # (Manual) 0.0 K/mm3 (0.0-0.4) 09/03/19 04:33 Basophils # (Manual) 0.0 K/mm3 (0.0-0.1) 09/03/19 04:33 Metamyelocytes # 0.2 K/mm3 09/03/19 04:33 Myelocytes # 0.0 K/mm3 09/03/19 04:33 Promyelocytes # 0.0 K/mm3 09/03/19 04:33 Blast Cells # 0.0 K/mm3 09/03/19 04:33 WBC Morphology Not Reportable 09/03/19 04:33 Hypersegmented Neuts Not Reportable 09/03/19 04:33 Hyposegmented Neuts Not Reportable 09/03/19 04:33 Hypogranular Neuts Not Reportable 09/03/19 04:33 Smudge Cells Not Reportable 09/03/19 04:33 Toxic Granulation Not Reportable 09/03/19 04:33 Toxic Vacuolation Not Reportable 09/03/19 04:33 Dohle Bodies Not Reportable 09/03/19 04:33 Pelger-Huet Anomaly Not Reportable 09/03/19 04:33 Rose Rods Not Reportable 09/03/19 04:33 Platelet Estimate Consistent w auto 09/03/19 04:33 Clumped Platelets Not Reportable 09/03/19 04:33 Plt Clumps, EDTA Not Reportable 09/03/19 04:33 Large Platelets Not Reportable 09/03/19 04:33 Giant Platelets Not Reportable 09/03/19 04:33 Platelet Satelliting Not Reportable 09/03/19 04:33 Plt Morphology Comment Not Reportable 09/03/19 04:33 RBC Morphology Not Reportable 09/03/19 04:33 Dimorphic RBCs Not Reportable 09/03/19 04:33 Polychromasia Not Reportable 09/03/19 04:33 Hypochromasia Not Reportable 09/03/19 04:33 Poikilocytosis 1+ 09/03/19 04:33 Anisocytosis 1+ 09/03/19 04:33 Microcytosis Few 09/03/19 04:33 Macrocytosis Rare 09/03/19 04:33 Spherocytes Not Reportable 09/03/19 04:33 Pappenheimer Bodies Not Reportable 09/03/19 04:33 Sickle Cells Not Reportable 09/03/19 04:33 Target Cells Not Reportable 09/03/19 04:33 Tear Drop Cells Rare 09/03/19 04:33 Ovalocytes Not Reportable 09/03/19 04:33 Helmet Cells Not Reportable 09/03/19 04:33 Benavidez-[place] Bodies Not Reportable 09/03/19 04:33 [place] Rings Not Reportable 09/03/19 04:33 Tye Cells Not Reportable 09/03/19 04:33 Bite Cells Not Reportable 09/03/19 04:33 Crenated Cell Not Reportable 09/03/19 04:33 Elliptocytes Few 09/03/19 04:33 Acanthocytes (Spur) Not Reportable 09/03/19 04:33 Rouleaux Not Reportable 09/03/19 04:33 Hemoglobin C Crystals Not Reportable 09/03/19 04:33 Schistocytes Not Reportable 09/03/19 04:33 Malaria parasites Not Reportable 09/03/19 04:33 Dinesh Bodies Not Reportable 09/03/19 04:33 Hem Pathologist Commnt No 09/03/19 04:33 POC ABG pH 7.487 (7.35-7.45) H 09/04/19 18:49 POC ABG pCO2 33.3 (35-45) L 09/04/19 18:49 POC ABG pO2 120 (80-105) H 09/04/19 18:49 POC ABG HCO3 25.2 (22-26 mml/L) 09/04/19 18:49 POC ABG Total CO2 26 (23-27mmol/L) 09/04/19 18:49 POC ABG O2 Sat 99 09/04/19 18:49 POC ABG Base Excess 2 ((-2) - (+3)mmol/L) 09/04/19 18:49 FiO2 24 % 09/04/19 18:49 Sodium 136 mmol/L (137-145) L 09/10/19 04:40 Potassium 4.0 mmol/L (3.6-5.0) 09/10/19 04:40 Chloride 90.9 mmol/L (98-107) L 09/10/19 04:40 Carbon Dioxide 25 mmol/L (22-30) 09/10/19 04:40 Anion Gap 24 mmol/L 09/10/19 04:40 BUN 105 mg/dL (7-17) H 09/10/19 04:40 Creatinine 6.3 mg/dL (0.7-1.2) H 09/10/19 04:40 Estimated GFR 9 ml/min 09/10/19 04:40 BUN/Creatinine Ratio 17 % 09/10/19 04:40 Glucose 209 mg/dL (65-100) H 09/10/19 04:40 POC Glucose 273 (70-105) H 09/10/19 05:56 Calcium 8.6 mg/dL (8.4-10.2) 09/10/19 04:40 Phosphorus 5.30 mg/dL (2.5-4.5) H 09/04/19 04:40 Magnesium 2.00 mg/dL (1.7-2.3) 09/05/19 03:40 Total Bilirubin 0.50 mg/dL (0.1-1.2) 09/06/19 04:17 Direct Bilirubin 0.3 mg/dL (0-0.2) H 09/04/19 04:40 Indirect Bilirubin 0.1 mg/dL 09/04/19 04:40 AST 14 units/L (5-40) 09/06/19 04:17 ALT 6 units/L (7-56) L 09/06/19 04:17 Alkaline Phosphatase 151 units/L (35-129) H 09/06/19 04:17 Total Creatine Kinase 42 units/L (30-135) 08/20/19 10:38 CK-MB (CK-2) 4.5 ng/mL (0.0-4.0) H 08/20/19 10:38 CK-MB (CK-2) Rel Index 10.7 (0-4) H 08/20/19 10:38 Troponin T 0.323 ng/mL (0.00-0.029) H* 08/20/19 10:38 C-Reactive Protein 26.00 mg/dL (0.00-1.30) H 09/02/19 09:15 Total Protein 5.2 g/dL (6.3-8.2) L 09/06/19 04:17 Albumin 1.5 g/dL (3.9-5) L 09/06/19 04:17 Albumin/Globulin Ratio 0.4 % 09/06/19 04:17 Triglycerides 132 mg/dL (2-149) 08/26/19 12:33 Cholesterol 83 mg/dL (50-199) 08/19/19 20:48 LDL Cholesterol Direct 34 mg/dL (50-130) L 08/19/19 20:48 HDL Cholesterol 19 mg/dL (40-59) L 08/19/19 20:48 Cholesterol/HDL Ratio 4.36 % 08/19/19 20:48 Lipase 212 units/L (13-60) H 09/02/19 09:15 Hepatitis A IgM Ab Non-reactive (NonReactive) 08/22/19 22:30 Hep Bs Antigen Non-reactive (Negative) 08/22/19 22:30 Hep B Core IgM Ab Non-reactive (NonReactive) 08/22/19 22:30 Hepatitis C Antibody Non-reactive (NonReactive) 08/22/19 22:30 Blood Type A POSITIVE 09/05/19 09: Antibody Screen Negative 09/05/19 09:21 Crossmatch See Detail 09/05/19 09:21 Active Medications - Current Medications Current Medications: Generic Name Dose Route Start Last Admin Trade Name Freq PRN Reason Stop Dose Admin Acetaminophen 650 mg 08/19/19 22:44 09/03/19 20:59 Tylenol PO 650 mg Q4H PRN Administration Pain MILD(1-3)/Fever >100.5/PORTER Acetaminophen 650 mg 08/26/19 13:00 09/03/19 04:11 Tylenol DC 650 mg Q6H PRN Administration Pain, Mild (1-3) Albuterol 2.5 mg 08/20/19 09:00 09/10/19 08:23 Proventil IH 2.5 mg QID PRN Administration Wheezing Clonidine HCl 0.3 mg 09/03/19 14:00 09/03/19 19:49 Catapres-Tts Patch TD Not Given Sa JOEL Cyanocobalamin 1,000 mcg 08/20/19 10:00 09/10/19 09:33 Vitamin B-12 PO 1,000 mcg QDAY JOEL Administration Dextrose 0 ml 08/19/19 22:43 09/08/19 18:05 D50w (25gm) Syringe IV 50 ml Q30MIN PRN Administration Hypoglycemia Diphenhydramine HCl 25 mg 08/22/19 22:22 09/10/19 09:33 Benadryl IV 25 mg Q6H PRN Administration Itching Epoetin Mitch 20,000 unit 08/20/19 09:17 09/08/19 13:24 Procrit SUB-Q 20,000 unit FAN PRN Administration hemodialysis Folic Acid 1 mg 08/20/19 10:00 09/10/19 09:48 Folvite PO Not Given QDAY [facility] Haloperidol Lactate 5 mg 09/02/19 11:00 09/07/19 22:22 Haldol IM 5 mg Q6H PRN Administration Agitation Hydroxychloroquine Sulfate 200 mg 08/20/19 10:00 09/10/19 09:34 Plaquenil PO 200 mg QDAY JOEL Administration Hydroxyzine HCl 50 mg 08/20/19 10:00 09/10/19 09:46 Atarax PO Not Given QDAY JOEL Levetiracetam 750 mg/ Dextrose 107.5 mls @ 107.5 mls/hr 08/26/19 12:30 09/10/19 10:52 IV 400 mls/hr Q12HR JOEL Administration Meropenem 500 mg in 50 mls @ 50 mls/hr 09/04/19 14:00 09/09/19 15:28 Merrem/Ns 500 Mg/50 Ml IV 50 mls/hr Q24H JOEL Administration Sodium Chloride 100 mls @ 999 mls/hr 09/08/19 08:23 Nacl 0.9% IV FAN PRN Hypotension Insulin Glargine 10 units 09/02/19 11:30 09/10/19 08:54 Lantus SUB-Q Not Given QAMDIAB [facility] Insulin Human Lispro 0 unit 09/07/19 12:00 09/10/19 06:08 Humalog SUB-Q 4 unit Q6HR JOEL Administration Protocol Losartan Potassium 50 mg 08/20/19 10:00 09/10/19 09:47 Cozaar PO Not Given QDAY [facility] Melatonin 5 mg 08/25/19 22:00 09/09/19 21:24 Melatonin PO Not Given QHS [facility] Metoclopramide HCl 5 mg 09/01/19 13:00 09/07/19 22:22 Reglan IV 5 mg Q6H PRN Administration Nausea And Vomiting Metoprolol Tartrate 5 mg 09/01/19 18:48 09/08/19 05:18 Metoprolol IV 5 mg Q6HR PRN Administration Hypertension Morphine Sulfate 1 mg 09/02/19 11:30 09/10/19 09:32 Morphine IV 1 mg Q4H PRN Administration Pain , Severe (7-10) Mycophenolate Mofetil 500 mg 08/20/19 10:00 09/10/19 09:47 Cellcept PO Not Given QDAY [facility] Olanzapine 5 mg 09/02/19 13:00 09/10/19 09:46 Zyprexa Zydis PO Not Given BID [facility] Ondansetron HCl 4 mg 08/21/19 13:00 09/09/19 00:43 Zofran IV 4 mg Q4H PRN Administration Nausea And Vomiting Pantoprazole Sodium 40 mg 09/04/19 22:00 09/10/19 09:33 Protonix IV 40 mg BID [facility] Administration Promethazine HCl 25 mg 08/21/19 12:46 Phenergan DC Q6H PRN Nausea And Vomiting Sevelamer Carbonate 800 mg 08/20/19 16:30 09/10/19 09:39 Renvela PO Not Given 0730,1630 [facility] Sodium Chloride 10 ml 08/20/19 10:00 09/10/19 09:36 Sodium Chloride Flush Syringe 10 Ml IV 10 ml BID JOEL Administration Sodium Chloride 10 ml 08/19/19 22:44 09/05/19 17:22 Sodium Chloride Flush Syringe 10 Ml IV 10 ml PRN PRN Administration LINE FLUSH Nutrition/Malnutrition Assess - Dietary Evaluation Nutrition/Malnutrition Findings: Nutrition Notes Start: 08/20/19 10:47 Freq: Status: Active Protocol: Document 09/09/19 12:53 RS (Rec: 09/09/19 13:28 RS [email or web address]) Co-Sign 09/09/19 12:53 LM Nutrition Notes Initial or Follow up Reassessment Current Diagnosis CKD (stage V CKD),Diabetes, Hypertension Other Pertinent Diagnosis Necrotizing pancreatitis, Encephalopathy, SLE Current Diet 12hr cyclic CPN (80/140/80) Labs/Tests Reviewed Pertinent Medications Reviewed Height 5 ft 4 in Weight 76.3 kg [place] Body Weight (kg) 54.54 BMI 28.8 Weight change and time frame wt obtained from [facility] Subjective/Other Information Day 21 CPN. Pt stable and tolerating CPN well. Percent of energy/protein needs met: 61% kcal and 100% PRO Burn Absent Trauma Absent Minimum of two criteria No #1 Nutrition Diagnosis Inadequate oral intake Diagnosis Progress(for reassessment Continues documentation) Is patient on ventilator? No Is Patient Ambulatory and/or Out of Bed No REE[facility] [phone] Calculation Used for Recommendations [facility] Additional Notes Protein Needs >1.2g/kg: >93g/ day Fluid needs 1-1.5L/day Nutrition Intervention Change Diet Order: Continue CPN Nutrition Support: Continue 12hr cyclic CPN: lipids, MVI, Osmolality: 1518. Kcal 1,580 Protein (gm) 100 Carbohydrates (gm) 200 Fat (gm) 50 Fluid (mL) 1,810 Goal #1 Meet at least 75% of calorie and protein needs via CPN Anticipated Discharge Needs: Home cyclic CPN Follow-Up By: 09/10/19 Additional Comments Labs in AM : BMP
[2019-09-10] MEDS ORDERED: SODIUM CHLORIDE 0.9% 100 ML IV PRN (12:00)
[2019-09-10] MEDS ORDERED: oxyCODONE /ACETAMINOPHEN 5-325MG TAB PO PRN (12:19)
--- NOTE | 2019-09-10 13:09 | Event Note ---
Date: 09/10/19 The patient is being transferred to [facility], accepted by the hospitalist Awaiting bed assignment and call back from [place] [facility] Patient is clinically stable for discharge and transfer
[2019-09-10] MEDS: HALOPERIDOL LACTATE 5 MG/1 ML INJ IM PRN (13:35)
[2019-09-10] MEDS: MEROPENEM/NS 500 MG/50 ML 500 MG/50 ML BAG IV SCH (14:26)
[2019-09-10] MEDS: cloNIDine TTS 0.3 MG/24 HR PATCH TD SCH (14:36)
[2019-09-10] MEDS ORDERED: TOTAL PARENTERAL NUTRITION 1,560 ML IV SCH (20:00)
[2019-09-10 20:04] VITALS: BP 115/77
--- NOTE | 2019-09-10 20:47 | Progress Note ---
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 re-evaluate in am & prn Subjective Date of service: 09/10/19 Principal diagnosis: Ac hypoxemic resp failure; Sirs vs sepsis; Ac on Ch pancreatitis; DM II Interval history: Patient is seen today for: Acute hypoxemic resp failure; Sirs vs sepsis; Acute on Chronic pancreatitis; Acute metabolic-toxic encephalopathy; Severe malnutrition; End-stage renal disease; SLE; Non-ST elevation UT Type 2; Diabetes type 2 Seen and examined at bedside; 24hour events reviewed; nursing and respiratory care staff consulted; no adverse overnight events reported to me; resting peacefully in bed; still SOB; No N/V/F/C; ? mild delirium Objective Vital Signs - 12hr 09/10/19 09/10/19 09/10/19 10:00 12:00 14:36 Temperature Pulse Rate 138 H 134 H 136 H Pulse Rate [ 131 H Apical] Pulse Rate [ 131 H Left Radial] Pulse Rate [ 131 H Right Radial] Respiratory 26 H Rate Blood Pressure 108/67 O2 Sat by Pulse 99 Oximetry 09/10/19 09/10/19 09/10/19 17:59 18:09 19:24 Temperature 98.2 F Pulse Rate 124 H 116 H Pulse Rate [ Apical] Pulse Rate [ Left Radial] Pulse Rate [ Right Radial] Respiratory 18 Rate Blood Pressure 117/75 62/43 115/77 O2 Sat by Pulse 100 100 Oximetry Constitutional: no acute distress, alert, other (Mild respiratory distress.) Eyes: non-icteric ENT: oropharynx moist Neck: supple, no lymphadenopathy Effort: mildly labored Ascultation: Bilateral: diminished breath sounds, rales (FEW rales in bases) Percussion: Bilateral: not dull Cardiovascular: regular rate and rhythm, other (+ tachycardia) Gastrointestinal: normoactive bowel sounds, soft, non-tender Integumentary: normal Extremities: no cyanosis, no edema Neurologic: non-focal exam, pupils equal and round, CN II-XII normal, other (weak) Psychiatric: depressed CBC and BMP: 09/07/19 05:15 09/10/19 04:40 ABG, PT/INR, D-dimer: ABG POC ABG pH 7.487 (7.35-7.45) H 09/04/19 18:49 POC ABG pCO2 33.3 (35-45) L 09/04/19 18:49 POC ABG pO2 120 (80-105) H 09/04/19 18:49 POC ABG HCO3 25.2 (22-26 mml/L) 09/04/19 18:49 POC ABG Total CO2 26 (23-27mmol/L) 09/04/19 18:49 POC ABG O2 Sat 99 09/04/19 18:49 Abnormal lab findings: Abnormal Labs 08/19/19 08/19/19 08/19/19 20:48 20:48 23:48 WBC 17.2 H RBC 2.50 L Hgb 6.8 L Hct 22.3 L MCH 27 L RDW 18.6 H Lymph % (Auto) Upson % (Auto) Upson # Seg Neutrophils % Seg Neuts % (Manual) Lymphocytes % (Manual) Monocytes % (Manual) Nucleated RBC % Seg Neutrophils # Seg Neutrophils # Man Lymphocytes # (Manual) Monocytes # (Manual) POC ABG pH POC ABG pCO2 POC ABG pO2 Sodium 131 L Potassium 2.8 L* D Chloride 92.9 L Carbon Dioxide BUN 64 H Creatinine 5.2 H Glucose 981 H* POC Glucose Calcium 8.2 L Phosphorus Magnesium Direct Bilirubin ALT < 5 L Alkaline Phosphatase CK-MB (CK-2) 4.8 H CK-MB (CK-2) Rel Index 8.8 H Troponin T 0.249 H* 0.288 H* C-Reactive Protein Total Protein 4.7 L Albumin 1.9 L Triglycerides 197 H LDL Cholesterol Direct 34 L HDL Cholesterol 19 L Lipase 251 H Crossmatch 08/20/19 08/20/19 08/20/19 00:06 00:09 01:40 WBC RBC Hgb Hct MCH RDW Lymph % (Auto) Upson % (Auto) Upson # Seg Neutrophils % Seg Neuts % (Manual) Lymphocytes % (Manual) Monocytes % (Manual) Nucleated RBC % Seg Neutrophils # Seg Neutrophils # Man Lymphocytes # (Manual) Monocytes # (Manual) POC ABG pH POC ABG pCO2 POC ABG pO2 Sodium Potassium 3.3 L Chloride 96.6 L Carbon Dioxide BUN 71 H Creatinine 6.0 H Glucose 180 H POC Glucose 180 H 142 H Calcium Phosphorus Magnesium Direct Bilirubin ALT Alkaline Phosphatase CK-MB (CK-2) CK-MB (CK-2) Rel Index Troponin T C-Reactive Protein Total Protein Albumin Triglycerides LDL Cholesterol Direct HDL Cholesterol Lipase Crossmatch 08/20/19 08/20/19 08/20/19 10:38 10:38 17:24 WBC RBC Hgb Hct MCH RDW Lymph % (Auto) Upson % (Auto) Upson # Seg Neutrophils % Seg Neuts % (Manual) Lymphocytes % (Manual) Monocytes % (Manual) Nucleated RBC % Seg Neutrophils # Seg Neutrophils # Man Lymphocytes # (Manual) Monocytes # (Manual) POC ABG pH POC ABG pCO2 POC ABG pO2 Sodium Potassium 2.9 L* Chloride Carbon Dioxide 17 L D BUN 64 H Creatinine 5.6 H Glucose POC Glucose 124 H Calcium 6.8 L D Phosphorus Magnesium Direct Bilirubin ALT < 5 L Alkaline Phosphatase CK-MB (CK-2) 4.5 H CK-MB (CK-2) Rel Index 10.7 H Troponin T 0.323 H* C-Reactive Protein Total Protein 4.1 L Albumin 1.4 L Triglycerides LDL Cholesterol Direct HDL Cholesterol Lipase Crossmatch 08/20/19 08/20/19 08/21/19 20:20 21:25 07:55 WBC RBC Hgb Hct MCH RDW Lymph % (Auto) Upson % (Auto) Upson # Seg Neutrophils % Seg Neuts % (Manual) Lymphocytes % (Manual) Monocytes % (Manual) Nucleated RBC % Seg Neutrophils # Seg Neutrophils # Man Lymphocytes # (Manual) Monocytes # (Manual) POC ABG pH POC ABG pCO2 POC ABG pO2 Sodium Potassium 5.2 H D Chloride 97.6 L Carbon Dioxide BUN 52 H Creatinine 5.0 H Glucose 287 H POC Glucose 161 H Calcium Phosphorus Magnesium 1.60 L Direct Bilirubin ALT Alkaline Phosphatase CK-MB (CK-2) CK-MB (CK-2) Rel Index Troponin T C-Reactive Protein Total Protein Albumin Triglycerides LDL Cholesterol Direct HDL Cholesterol Lipase Crossmatch 1008/21/19 08/21/19 08:04 12:04 16:30 WBC RBC Hgb Hct MCH RDW Lymph % (Auto) Upson % (Auto) Upson # Seg Neutrophils % Seg Neuts % (Manual) Lymphocytes % (Manual) Monocytes % (Manual) Nucleated RBC % Seg Neutrophils # Seg Neutrophils # Man Lymphocytes # (Manual) Monocytes # (Manual) POC ABG pH POC ABG pCO2 POC ABG pO2 Sodium Potassium Chloride Carbon Dioxide BUN Creatinine Glucose POC Glucose 157 H 188 H 255 H Calcium Phosphorus Magnesium Direct Bilirubin ALT Alkaline Phosphatase CK-MB (CK-2) CK-MB (CK-2) Rel Index Troponin T C-Reactive Protein Total Protein Albumin Triglycerides LDL Cholesterol Direct HDL Cholesterol Lipase Crossmatch 08/21/19 08/22/19 08/22/19 21:17 04:00 08:20 WBC RBC Hgb Hct MCH RDW Lymph % (Auto) Upson % (Auto) Upson # Seg Neutrophils % Seg Neuts % (Manual) Lymphocytes % (Manual) Monocytes % (Manual) Nucleated RBC % Seg Neutrophils # Seg Neutrophils # Man Lymphocytes # (Manual) Monocytes # (Manual) POC ABG pH POC ABG pCO2 POC ABG pO2 Sodium Potassium Chloride 96.4 L Carbon Dioxide BUN 65 H Creatinine 6.1 H Glucose 119 H POC Glucose 251 H 148 H Calcium 8.3 L Phosphorus Magnesium Direct Bilirubin ALT Alkaline Phosphatase CK-MB (CK-2) CK-MB (CK-2) Rel Index Troponin T C-Reactive Protein Total Protein Albumin Triglycerides LDL Cholesterol Direct HDL Cholesterol Lipase Crossmatch 08/22/19 08/22/19 08/22/19 14:45 16:29 21:04 WBC RBC Hgb 7.0 L Hct 22.3 L MCH RDW Lymph % (Auto) Upson % (Auto) Upson # Seg Neutrophils % Seg Neuts % (Manual) Lymphocytes % (Manual) Monocytes % (Manual) Nucleated RBC % Seg Neutrophils # Seg Neutrophils # Man Lymphocytes # (Manual) Monocytes # (Manual) POC ABG pH POC ABG pCO2 POC ABG pO2 Sodium Potassium Chloride Carbon Dioxide BUN Creatinine Glucose POC Glucose 115 H 162 H Calcium Phosphorus Magnesium Direct Bilirubin ALT Alkaline Phosphatase CK-MB (CK-2) CK-MB (CK-2) Rel Index Troponin T C-Reactive Protein Total Protein Albumin Triglycerides LDL Cholesterol Direct HDL Cholesterol Lipase Crossmatch 08/23/19 08/24/19 08/24/19 08:00 07:42 07:42 WBC 22.8 H RBC 2.47 L Hgb 6.7 L Hct 20.5 L MCH 27 L RDW 18.1 H Lymph % (Auto) Upson % (Auto) Upson # Seg Neutrophils % Seg Neuts % (Manual) 95.0 H Lymphocytes % (Manual) 3.0 L Monocytes % (Manual) Nucleated RBC % Seg Neutrophils # Seg Neutrophils # Man 21.7 H Lymphocytes # (Manual) 0.7 L Monocytes # (Manual) POC ABG pH POC ABG pCO2 POC ABG pO2 Sodium 136 L Potassium 5.7 H D Chloride 92.2 L Carbon Dioxide 19 L BUN 107 H Creatinine 9.1 H Glucose POC Glucose 141 H Calcium Phosphorus 7.40 H Magnesium Direct Bilirubin ALT Alkaline Phosphatase CK-MB (CK-2) CK-MB (CK-2) Rel Index Troponin T C-Reactive Protein Total Protein Albumin Triglycerides LDL Cholesterol Direct HDL Cholesterol Lipase Crossmatch 08/24/19 08/24/19 08/25/19 18:53 23:32 05:00 WBC RBC Hgb Hct MCH RDW Lymph % (Auto) Upson % (Auto) Upson # Seg Neutrophils % Seg Neuts % (Manual) Lymphocytes % (Manual) Monocytes % (Manual) Nucleated RBC % Seg Neutrophils # Seg Neutrophils # Man Lymphocytes # (Manual) Monocytes # (Manual) POC ABG pH POC ABG pCO2 POC ABG pO2 Sodium Potassium Chloride 93.9 L Carbon Dioxide BUN 61 H Creatinine 5.3 H Glucose 166 H POC Glucose 169 H 139 H Calcium Phosphorus Magnesium Direct Bilirubin ALT Alkaline Phosphatase CK-MB (CK-2) CK-MB (CK-2) Rel Index Troponin T C-Reactive Protein Total Protein Albumin Triglycerides LDL Cholesterol Direct HDL Cholesterol Lipase Crossmatch 08/25/19 08/25/19 08/25/19 05:00 05:14 22:02 WBC 19.7 H RBC 2.45 L Hgb 6.6 L Hct 20.4 L MCH 27 L RDW 18.6 H Lymph % (Auto) Upson % (Auto) Upson # Seg Neutrophils % Seg Neuts % (Manual) 75.0 H Lymphocytes % (Manual) Monocytes % (Manual) Nucleated RBC % Seg Neutrophils # Seg Neutrophils # Man 14.8 H Lymphocytes # (Manual) Monocytes # (Manual) POC ABG pH POC ABG pCO2 POC ABG pO2 Sodium Potassium Chloride Carbon Dioxide BUN Creatinine Glucose POC Glucose 225 H 106 H Calcium Phosphorus Magnesium Direct Bilirubin ALT Alkaline Phosphatase CK-MB (CK-2) CK-MB (CK-2) Rel Index Troponin T C-Reactive Protein Total Protein Albumin Triglycerides LDL Cholesterol Direct HDL Cholesterol Lipase Crossmatch 08/26/19 08/26/19 08/26/19 07:39 11:31 12:33 WBC RBC Hgb Hct MCH RDW Lymph % (Auto) Upson % (Auto) Upson # Seg Neutrophils % Seg Neuts % (Manual) Lymphocytes % (Manual) Monocytes % (Manual) Nucleated RBC % Seg Neutrophils # Seg Neutrophils # Man Lymphocytes # (Manual) Monocytes # (Manual) POC ABG pH POC ABG pCO2 POC ABG pO2 Sodium Potassium Chloride Carbon Dioxide BUN Creatinine Glucose POC Glucose 212 H 110 H Calcium Phosphorus Magnesium Direct Bilirubin ALT Alkaline Phosphatase CK-MB (CK-2) CK-MB (CK-2) Rel Index Troponin T C-Reactive Protein Total Protein Albumin Triglycerides LDL Cholesterol Direct HDL Cholesterol Lipase Crossmatch See Detail 08/26/19 08/26/19 08/26/19 12:33 12:33 17:38 WBC 18.4 H RBC 2.43 L Hgb 6.3 L Hct 20.1 L MCH 26 L RDW 18.5 H Lymph % (Auto) Upson % (Auto) Upson # Seg Neutrophils % Seg Neuts % (Manual) 80.0 H Lymphocytes % (Manual) 9.0 L Monocytes % (Manual) Nucleated RBC % Seg Neutrophils # Seg Neutrophils # Man 14.7 H Lymphocytes # (Manual) Monocytes # (Manual) POC ABG pH POC ABG pCO2 POC ABG pO2 Sodium Potassium Chloride 93.4 L Carbon Dioxide BUN 95 H Creatinine 8.1 H D Glucose 119 H POC Glucose 196 H Calcium Phosphorus 5.00 H D Magnesium Direct Bilirubin ALT Alkaline Phosphatase CK-MB (CK-2) CK-MB (CK-2) Rel Index Troponin T C-Reactive Protein Total Protein Albumin Triglycerides LDL Cholesterol Direct HDL Cholesterol Lipase Crossmatch 08/26/19 08/27/19 08/27/19 22:08 07:40 07:40 WBC 14.4 H RBC 2.17 L Hgb 5.7 L* Hct 18.1 L* MCH 26 L RDW 18.6 H Lymph % (Auto) Upson % (Auto) Upson # Seg Neutrophils % Seg Neuts % (Manual) Lymphocytes % (Manual) Monocytes % (Manual) 8.0 H Nucleated RBC % Seg Neutrophils # Seg Neutrophils # Man 9.6 H Lymphocytes # (Manual) Monocytes # (Manual) 1.2 H POC ABG pH POC ABG pCO2 POC ABG pO2 Sodium 136 L Potassium Chloride 87.5 L Carbon Dioxide 20 L BUN 117 H Creatinine 9.0 H Glucose 379 H POC Glucose 252 H Calcium Phosphorus 7.10 H D Magnesium Direct Bilirubin ALT Alkaline Phosphatase CK-MB (CK-2) CK-MB (CK-2) Rel Index Troponin T C-Reactive Protein Total Protein Albumin Triglycerides LDL Cholesterol Direct HDL Cholesterol Lipase Crossmatch 08/27/19 08/27/19 08/27/19 08:13 09:02 09:42 WBC RBC Hgb Hct MCH RDW Lymph % (Auto) Upson % (Auto) Upson # Seg Neutrophils % Seg Neuts % (Manual) Lymphocytes % (Manual) Monocytes % (Manual) Nucleated RBC % Seg Neutrophils # Seg Neutrophils # Man Lymphocytes # (Manual) Monocytes # (Manual) POC ABG pH POC ABG pCO2 POC ABG pO2 Sodium Potassium Chloride Carbon Dioxide BUN Creatinine Glucose 578 H* POC Glucose > 500 H > 500 H Calcium Phosphorus Magnesium Direct Bilirubin ALT Alkaline Phosphatase CK-MB (CK-2) CK-MB (CK-2) Rel Index Troponin T C-Reactive Protein Total Protein Albumin Triglycerides LDL Cholesterol Direct HDL Cholesterol Lipase Crossmatch 08/27/19 08/28/19 08/28/19 10:14 01:05 05:25 WBC RBC Hgb Hct MCH RDW Lymph % (Auto) Upson % (Auto) [place]pson # Seg Neutrophils % Seg Neuts % (Manual) Lymphocytes % (Manual) Monocytes % (Manual) Nucleated RBC % Seg Neutrophils # Seg Neutrophils # Man Lymphocytes # (Manual) Monocytes # (Manual) POC ABG pH POC ABG pCO2 POC ABG pO2 Sodium Potassium 3.5 L D Chloride 93.6 L Carbon Dioxide BUN 72 H Creatinine 5.5 H Glucose 361 H POC Glucose 485 H 161 H Calcium Phosphorus Magnesium Direct Bilirubin ALT Alkaline Phosphatase CK-MB (CK-2) CK-MB (CK-2) Rel Index Troponin T C-Reactive Protein Total Protein Albumin Triglycerides LDL Cholesterol Direct HDL Cholesterol Lipase Crossmatch 08/28/19 08/28/19 08/28/19 07:40 10:44 12:30 WBC RBC 3.43 L Hgb 9.4 L D Hct 29.1 L D MCH RDW 17.0 H Lymph % (Auto) Upson % (Auto) Upson # Seg Neutrophils % Seg Neuts % (Manual) 81.0 H Lymphocytes % (Manual) Monocytes % (Manual) Nucleated RBC % Seg Neutrophils # Seg Neutrophils # Man 8.6 H Lymphocytes # (Manual) Monocytes # (Manual) POC ABG pH POC ABG pCO2 POC ABG pO2 Sodium Potassium Chloride Carbon Dioxide BUN Creatinine Glucose POC Glucose 362 H 355 H Calcium Phosphorus Magnesium Direct Bilirubin ALT Alkaline Phosphatase CK-MB (CK-2) CK-MB (CK-2) Rel Index Troponin T C-Reactive Protein Total Protein Albumin Triglycerides LDL Cholesterol Direct HDL Cholesterol Lipase Crossmatch 08/28/19 08/28/19 08/29/19 18:01 21:38 05:00 WBC 12.3 H RBC 3.29 L Hgb 8.8 L Hct 27.8 L MCH 27 L RDW 17.1 H Lymph % (Auto) Upson % (Auto) Upson # Seg Neutrophils % Seg Neuts % (Manual) 80.0 H Lymphocytes % (Manual) Monocytes % (Manual) Nucleated RBC % Seg Neutrophils # Seg Neutrophils # Man 9.8 H Lymphocytes # (Manual) Monocytes # (Manual) POC ABG pH POC ABG pCO2 POC ABG pO2 Sodium Potassium Chloride Carbon Dioxide BUN Creatinine Glucose POC Glucose 150 H 240 H Calcium Phosphorus Magnesium Direct Bilirubin ALT Alkaline Phosphatase CK-MB (CK-2) CK-MB (CK-2) Rel Index Troponin T C-Reactive Protein Total Protein Albumin Triglycerides LDL Cholesterol Direct HDL Cholesterol Lipase Crossmatch 08/29/19 08/29/19 08/29/19 05:00 07:59 13:02 WBC RBC Hgb Hct MCH RDW Lymph % (Auto) Upson % (Auto) Upson # Seg Neutrophils % Seg Neuts % (Manual) Lymphocytes % (Manual) Monocytes % (Manual) Nucleated RBC % Seg Neutrophils # Seg Neutrophils # Man Lymphocytes # (Manual) Monocytes # (Manual) POC ABG pH POC ABG pCO2 POC ABG pO2 Sodium Potassium 3.3 L Chloride 89.7 L Carbon Dioxide BUN 111 H Creatinine 6.9 H Glucose 374 H POC Glucose 373 H 59 L Calcium Phosphorus 5.90 H Magnesium Direct Bilirubin ALT 5 L Alkaline Phosphatase 173 H CK-MB (CK-2) CK-MB (CK-2) Rel Index Troponin T C-Reactive Protein Total Protein 5.5 L Albumin 2.0 L Triglycerides LDL Cholesterol Direct HDL Cholesterol Lipase Crossmatch 08/29/19 08/29/19 08/30/19 18:38 22:36 06:29 WBC RBC Hgb Hct MCH RDW Lymph % (Auto) Upson % (Auto) Upson # Seg Neutrophils % Seg Neuts % (Manual) Lymphocytes % (Manual) Monocytes % (Manual) Nucleated RBC % Seg Neutrophils # Seg Neutrophils # Man Lymphocytes # (Manual) Monocytes # (Manual) POC ABG pH POC ABG pCO2 POC ABG pO2 Sodium Potassium Chloride Carbon Dioxide BUN Creatinine Glucose POC Glucose 111 H 157 H 427 H Calcium Phosphorus Magnesium Direct Bilirubin ALT Alkaline Phosphatase CK-MB (CK-2) CK-MB (CK-2) Rel Index Troponin T C-Reactive Protein Total Protein Albumin Triglycerides LDL Cholesterol Direct HDL Cholesterol Lipase Crossmatch 08/30/19 08/30/19 08/30/19 06:30 06:30 11:59 WBC 13.6 H RBC 3.22 L Hgb 8.9 L Hct 27.1 L MCH RDW 17.3 H Lymph % (Auto) Upson % (Auto) [place]pson # Seg Neutrophils % Seg Neuts % (Manual) 80.0 H Lymphocytes % (Manual) Monocytes % (Manual) Nucleated RBC % 2.0 H Seg Neutrophils # Seg Neutrophils # Man 10.9 H Lymphocytes # (Manual) Monocytes # (Manual) POC ABG pH POC ABG pCO2 POC ABG pO2 Sodium 136 L Potassium Chloride 86.8 L Carbon Dioxide 21 L BUN 141 H Creatinine 8.0 H Glucose 493 H POC Glucose 275 H Calcium Phosphorus 6.40 H Magnesium Direct Bilirubin ALT Alkaline Phosphatase CK-MB (CK-2) CK-MB (CK-2) Rel Index Troponin T C-Reactive Protein Total Protein Albumin Triglycerides LDL Cholesterol Direct HDL Cholesterol Lipase Crossmatch 08/30/19 08/31/19 08/31/19 21:28 05:45 05:45 WBC 11.8 H RBC 3.55 L Hgb 9.6 L Hct 30.1 L MCH 27 L RDW 17.3 H Lymph % (Auto) Upson % (Auto) 12.5 H Upson # 1.5 H Seg Neutrophils % 73.8 H Seg Neuts % (Manual) Lymphocytes % (Manual) Monocytes % (Manual) Nucleated RBC % Seg Neutrophils # 8.7 H Seg Neutrophils # Man Lymphocytes # (Manual) Monocytes # (Manual) POC ABG pH POC ABG pCO2 POC ABG pO2 Sodium 135 L Potassium Chloride 90.7 L Carbon Dioxide BUN 95 H Creatinine 5.9 H Glucose 406 H POC Glucose 183 H Calcium Phosphorus 4.90 H D Magnesium Direct Bilirubin ALT Alkaline Phosphatase CK-MB (CK-2) CK-MB (CK-2) Rel Index Troponin T C-Reactive Protein Total Protein Albumin Triglycerides LDL Cholesterol Direct HDL Cholesterol Lipase Crossmatch 08/31/19 08/31/19 08/31/19 06:16 12:18 17:03 WBC RBC Hgb Hct MCH RDW Lymph % (Auto) Upson % (Auto) Upson # Seg Neutrophils % Seg Neuts % (Manual) Lymphocytes % (Manual) Monocytes % (Manual) Nucleated RBC % Seg Neutrophils # Seg Neutrophils # Man Lymphocytes # (Manual) Monocytes # (Manual) POC ABG pH POC ABG pCO2 POC ABG pO2 Sodium Potassium Chloride Carbon Dioxide BUN Creatinine Glucose POC Glucose 407 H 199 H 118 H Calcium Phosphorus Magnesium Direct Bilirubin ALT Alkaline Phosphatase CK-MB (CK-2) CK-MB (CK-2) Rel Index Troponin T C-Reactive Protein Total Protein Albumin Triglycerides LDL Cholesterol Direct HDL Cholesterol Lipase Crossmatch 08/31/19 09/01/19 09/01/19 22:20 07:09 07:30 WBC RBC Hgb Hct MCH RDW Lymph % (Auto) Upson % (Auto) [place]pson # Seg Neutrophils % Seg Neuts % (Manual) Lymphocytes % (Manual) Monocytes % (Manual) Nucleated RBC % Seg Neutrophils # Seg Neutrophils # Man Lymphocytes # (Manual) Monocytes # (Manual) POC ABG pH POC ABG pCO2 POC ABG pO2 Sodium Potassium Chloride 89.2 L Carbon Dioxide BUN 125 H Creatinine 7.1 H Glucose 426 H POC Glucose 203 H 362 H Calcium Phosphorus 5.30 H Magnesium Direct Bilirubin ALT Alkaline Phosphatase CK-MB (CK-2) CK-MB (CK-2) Rel Index Troponin T C-Reactive Protein Total Protein Albumin Triglycerides LDL Cholesterol Direct HDL Cholesterol Lipase Crossmatch 09/01/19 09/01/19 09/01/19 08:35 11:27 18:42 WBC 22.8 H RBC 3.52 L Hgb 9.4 L Hct 29.5 L MCH 27 L RDW 18.3 H Lymph % (Auto) Upson % (Auto) Upson # Seg Neutrophils % Seg Neuts % (Manual) 98.0 H Lymphocytes % (Manual) 1.0 L Monocytes % (Manual) Nucleated RBC % Seg Neutrophils # Seg Neutrophils # Man 22.3 H Lymphocytes # (Manual) 0.2 L Monocytes # (Manual) POC ABG pH POC ABG pCO2 POC ABG pO2 Sodium Potassium Chloride Carbon Dioxide BUN Creatinine Glucose POC Glucose 325 H 162 H Calcium Phosphorus Magnesium Direct Bilirubin ALT Alkaline Phosphatase CK-MB (CK-2) CK-MB (CK-2) Rel Index Troponin T C-Reactive Protein Total Protein Albumin Triglycerides LDL Cholesterol Direct HDL Cholesterol Lipase Crossmatch 09/01/19 09/02/19 09/02/19 23:37 06:07 09:15 WBC 21.9 H RBC 2.60 L Hgb 7.0 L Hct 23.0 L D MCH 27 L RDW 19.1 H Lymph % (Auto) Upson % (Auto) Upson # Seg Neutrophils % Seg Neuts % (Manual) 98.0 H Lymphocytes % (Manual) 2.0 L Monocytes % (Manual) Nucleated RBC % Seg Neutrophils # Seg Neutrophils # Man 21.5 H Lymphocytes # (Manual) 0.4 L Monocytes # (Manual) POC ABG pH POC ABG pCO2 POC ABG pO2 Sodium Potassium Chloride Carbon Dioxide BUN Creatinine Glucose POC Glucose 276 H 438 H Calcium Phosphorus Magnesium Direct Bilirubin ALT Alkaline Phosphatase CK-MB (CK-2) CK-MB (CK-2) Rel Index Troponin T C-Reactive Protein Total Protein Albumin Triglycerides LDL Cholesterol Direct HDL Cholesterol Lipase Crossmatch 09/02/19 09/02/19 09/02/19 09:15 12:45 18:19 WBC RBC Hgb Hct MCH RDW Lymph % (Auto) Upson % (Auto) Upson # Seg Neutrophils % Seg Neuts % (Manual) Lymphocytes % (Manual) Monocytes % (Manual) Nucleated RBC % Seg Neutrophils # Seg Neutrophils # Man Lymphocytes # (Manual) Monocytes # (Manual) POC ABG pH POC ABG pCO2 POC ABG pO2 Sodium 131 L Potassium Chloride 84.4 L Carbon Dioxide 19 L BUN 156 H Creatinine 7.6 H Glucose 849 H* POC Glucose 362 H 148 H Calcium 8.2 L Phosphorus Magnesium 1.60 L Direct Bilirubin ALT 6 L Alkaline Phosphatase 139 H CK-MB (CK-2) CK-MB (CK-2) Rel Index Troponin T C-Reactive Protein 26.00 H Total Protein 4.9 L Albumin 1.6 L Triglycerides LDL Cholesterol Direct HDL Cholesterol Lipase 212 H Crossmatch 09/03/19 09/03/19 09/03/19 00:06 04:33 04:33 WBC 22.2 H RBC 2.71 L Hgb 7.5 L Hct 23.3 L MCH RDW 18.1 H Lymph % (Auto) Upson % (Auto) Upson # Seg Neutrophils % Seg Neuts % (Manual) 94.0 H Lymphocytes % (Manual) 4.0 L Monocytes % (Manual) Nucleated RBC % Seg Neutrophils # Seg Neutrophils # Man 20.9 H Lymphocytes # (Manual) 0.9 L Monocytes # (Manual) POC ABG pH POC ABG pCO2 POC ABG pO2 Sodium Potassium Chloride Carbon Dioxide BUN 88 H Creatinine 5.0 H Glucose 331 H POC Glucose 277 H Calcium Phosphorus Magnesium Direct Bilirubin ALT Alkaline Phosphatase CK-MB (CK-2) CK-MB (CK-2) Rel Index Troponin T C-Reactive Protein Total Protein Albumin Triglycerides LDL Cholesterol Direct HDL Cholesterol Lipase Crossmatch 09/03/19 09/03/19 09/04/19 06:12 21:26 01:09 EST WBC RBC Hgb Hct MCH RDW Lymph % (Auto) Upson % (Auto) Upson # Seg Neutrophils % Seg Neuts % (Manual) Lymphocytes % (Manual) Monocytes % (Manual) Nucleated RBC % Seg Neutrophils # Seg Neutrophils # Man Lymphocytes # (Manual) Monocytes # (Manual) POC ABG pH POC ABG pCO2 POC ABG pO2 Sodium Potassium Chloride Carbon Dioxide BUN Creatinine Glucose POC Glucose 288 H 67 L 166 H Calcium Phosphorus Magnesium Direct Bilirubin ALT Alkaline Phosphatase CK-MB (CK-2) CK-MB (CK-2) Rel Index Troponin T C-Reactive Protein Total Protein Albumin Triglycerides LDL Cholesterol Direct HDL Cholesterol Lipase Crossmatch 09/04/19 09/04/19 09/04/19 04:40 04:40 04:40 WBC 19.5 H RBC 2.49 L Hgb 6.7 L Hct 21.3 L MCH 27 L RDW 17.8 H Lymph % (Auto) 10.7 L Upson % (Auto) Upson # 1.3 H Seg Neutrophils % 82.2 H Seg Neuts % (Manual) Lymphocytes % (Manual) Monocytes % (Manual) Nucleated RBC % Seg Neutrophils # 16.0 H Seg Neutrophils # Man Lymphocytes # (Manual) Monocytes # (Manual) POC ABG pH POC ABG pCO2 POC ABG pO2 Sodium Potassium Chloride 94.4 L Carbon Dioxide BUN 112 H Creatinine 6.3 H Glucose 273 H POC Glucose Calcium Phosphorus 5.30 H Magnesium Direct Bilirubin 0.3 H ALT Alkaline Phosphatase CK-MB (CK-2) CK-MB (CK-2) Rel Index Troponin T C-Reactive Protein Total Protein 5.0 L Albumin 1.5 L Triglycerides LDL Cholesterol Direct HDL Cholesterol Lipase Crossmatch 09/04/19 09/04/19 09/04/19 06:03 07:55 14:25 WBC 20.7 H RBC 2.45 L Hgb 6.5 L Hct 20.6 L MCH 26 L RDW 17.3 H Lymph % (Auto) Upson % (Auto) Upson # Seg Neutrophils % Seg Neuts % (Manual) Lymphocytes % (Manual) Monocytes % (Manual) Nucleated RBC % Seg Neutrophils # Seg Neutrophils # Man Lymphocytes # (Manual) Monocytes # (Manual) POC ABG pH POC ABG pCO2 POC ABG pO2 Sodium Potassium Chloride Carbon Dioxide BUN Creatinine Glucose POC Glucose 309 H 287 H Calcium Phosphorus Magnesium Direct Bilirubin ALT Alkaline Phosphatase CK-MB (CK-2) CK-MB (CK-2) Rel Index Troponin T C-Reactive Protein Total Protein Albumin Triglycerides LDL Cholesterol Direct HDL Cholesterol Lipase Crossmatch 09/04/19 09/04/19 09/05/19 16:40 18:49 03:40 WBC RBC Hgb Hct MCH RDW Lymph % (Auto) Upson % (Auto) Upson # Seg Neutrophils % Seg Neuts % (Manual) Lymphocytes % (Manual) Monocytes % (Manual) Nucleated RBC % Seg Neutrophils # Seg Neutrophils # Man Lymphocytes # (Manual) Monocytes # (Manual) POC ABG pH 7.487 H POC ABG pCO2 33.3 L POC ABG pO2 120 H Sodium Potassium Chloride 92.4 L Carbon Dioxide 21 L BUN 138 H Creatinine 7.2 H Glucose 214 H POC Glucose 66 L Calcium Phosphorus Magnesium Direct Bilirubin ALT Alkaline Phosphatase CK-MB (CK-2) CK-MB (CK-2) Rel Index Troponin T C-Reactive Protein Total Protein Albumin Triglycerides LDL Cholesterol Direct HDL Cholesterol Lipase Crossmatch 09/05/19 09/05/19 09/05/19 05:20 06:10 08:18 WBC 17.9 H RBC 2.44 L Hgb 6.5 L Hct 20.5 L MCH 27 L RDW 18.1 H Lymph % (Auto) 10.0 L Upson % (Auto) Upson # 1.2 H Seg Neutrophils % 83.0 H Seg Neuts % (Manual) Lymphocytes % (Manual) Monocytes % (Manual) Nucleated RBC % Seg Neutrophils # 14.8 H Seg Neutrophils # Man Lymphocytes # (Manual) Monocytes # (Manual) POC ABG pH POC ABG pCO2 POC ABG pO2 Sodium Potassium Chloride Carbon Dioxide BUN Creatinine Glucose POC Glucose 252 H 291 H Calcium Phosphorus Magnesium Direct Bilirubin ALT Alkaline Phosphatase CK-MB (CK-2) CK-MB (CK-2) Rel Index Troponin T C-Reactive Protein Total Protein Albumin Triglycerides LDL Cholesterol Direct HDL Cholesterol Lipase Crossmatch 09/05/19 09/05/19 09/06/19 09:21 11:35 04:17 WBC 16.0 H RBC 2.94 L Hgb 8.2 L Hct 25.3 L MCH RDW 16.4 H Lymph % (Auto) 12.5 L Upson % (Auto) 10.1 H Upson # 1.6 H Seg Neutrophils % 77.0 H Seg Neuts % (Manual) Lymphocytes % (Manual) Monocytes % (Manual) Nucleated RBC % Seg Neutrophils # 12.3 H Seg Neutrophils # Man Lymphocytes # (Manual) Monocytes # (Manual) POC ABG pH POC ABG pCO2 POC ABG pO2 Sodium Potassium Chloride Carbon Dioxide BUN Creatinine Glucose POC Glucose 201 H Calcium Phosphorus Magnesium Direct Bilirubin ALT Alkaline Phosphatase CK-MB (CK-2) CK-MB (CK-2) Rel Index Troponin T C-Reactive Protein Total Protein Albumin Triglycerides LDL Cholesterol Direct HDL Cholesterol Lipase Crossmatch See Detail 09/06/19 09/06/19 09/06/19 04:17 05:52 07:51 WBC RBC Hgb Hct MCH RDW Lymph % (Auto) Upson % (Auto) Upson # Seg Neutrophils % Seg Neuts % (Manual) Lymphocytes % (Manual) Monocytes % (Manual) Nucleated RBC % Seg Neutrophils # Seg Neutrophils # Man Lymphocytes # (Manual) Monocytes # (Manual) POC ABG pH POC ABG pCO2 POC ABG pO2 Sodium Potassium 3.5 L Chloride 94.2 L Carbon Dioxide BUN 88 H Creatinine 5.2 H Glucose 198 H POC Glucose 207 H 278 H Calcium Phosphorus Magnesium Direct Bilirubin ALT 6 L Alkaline Phosphatase 151 H CK-MB (CK-2) CK-MB (CK-2) Rel Index Troponin T C-Reactive Protein Total Protein 5.2 L Albumin 1.5 L Triglycerides LDL Cholesterol Direct HDL Cholesterol Lipase Crossmatch 1109/06/19 09/07/19 11:19 21:33 05:15 WBC RBC Hgb Hct MCH RDW Lymph % (Auto) Upson % (Auto) Upson # Seg Neutrophils % Seg Neuts % (Manual) Lymphocytes % (Manual) Monocytes % (Manual) Nucleated RBC % Seg Neutrophils # Seg Neutrophils # Man Lymphocytes # (Manual) Monocytes # (Manual) POC ABG pH POC ABG pCO2 POC ABG pO2 Sodium Potassium Chloride 91.5 L Carbon Dioxide 21 L BUN 119 H Creatinine 6.4 H Glucose 185 H POC Glucose 149 H 124 H Calcium Phosphorus Magnesium Direct Bilirubin ALT Alkaline Phosphatase CK-MB (CK-2) CK-MB (CK-2) Rel Index Troponin T C-Reactive Protein Total Protein Albumin Triglycerides LDL Cholesterol Direct HDL Cholesterol Lipase Crossmatch 09/07/19 09/07/19 09/07/19 05:15 07:32 11:17 WBC 14.7 H RBC 2.88 L Hgb 8.0 L Hct 24.5 L MCH RDW 17.4 H Lymph % (Auto) Upson % (Auto) 12.7 H Upson # 1.9 H Seg Neutrophils % 70.6 H Seg Neuts % (Manual) Lymphocytes % (Manual) Monocytes % (Manual) Nucleated RBC % Seg Neutrophils # 10.4 H Seg Neutrophils # Man Lymphocytes # (Manual) Monocytes # (Manual) POC ABG pH POC ABG pCO2 POC ABG pO2 Sodium Potassium Chloride Carbon Dioxide BUN Creatinine Glucose POC Glucose 111 H 155 H Calcium Phosphorus Magnesium Direct Bilirubin ALT Alkaline Phosphatase CK-MB (CK-2) CK-MB (CK-2) Rel Index Troponin T C-Reactive Protein Total Protein Albumin Triglycerides LDL Cholesterol Direct HDL Cholesterol Lipase Crossmatch 09/07/19 09/07/19 09/07/19 16:40 17:48 22:17 WBC RBC Hgb Hct MCH RDW Lymph % (Auto) Upson % (Auto) Upson # Seg Neutrophils % Seg Neuts % (Manual) Lymphocytes % (Manual) Monocytes % (Manual) Nucleated RBC % Seg Neutrophils # Seg Neutrophils # Man Lymphocytes # (Manual) Monocytes # (Manual) POC ABG pH POC ABG pCO2 POC ABG pO2 Sodium Potassium Chloride Carbon Dioxide BUN Creatinine Glucose POC Glucose < 40 L < 40 L 129 H Calcium Phosphorus Magnesium Direct Bilirubin ALT Alkaline Phosphatase CK-MB (CK-2) CK-MB (CK-2) Rel Index Troponin T C-Reactive Protein Total Protein Albumin Triglycerides LDL Cholesterol Direct HDL Cholesterol Lipase Crossmatch 09/08/19 09/08/19 09/08/19 05:18 07:22 09:01 WBC RBC Hgb Hct MCH RDW Lymph % (Auto) Upson % (Auto) Upson # Seg Neutrophils % Seg Neuts % (Manual) Lymphocytes % (Manual) Monocytes % (Manual) Nucleated RBC % Seg Neutrophils # Seg Neutrophils # Man Lymphocytes # (Manual) Monocytes # (Manual) POC ABG pH POC ABG pCO2 POC ABG pO2 Sodium Potassium Chloride Carbon Dioxide BUN Creatinine Glucose POC Glucose 204 H 278 H 179 H Calcium Phosphorus Magnesium Direct Bilirubin ALT Alkaline Phosphatase CK-MB (CK-2) CK-MB (CK-2) Rel Index Troponin T C-Reactive Protein Total Protein Albumin Triglycerides LDL Cholesterol Direct HDL Cholesterol Lipase Crossmatch 09/08/19 09/08/19 09/08/19 09:50 17:20 18:11 WBC RBC Hgb Hct MCH RDW Lymph % (Auto) Upson % (Auto) Upson # Seg Neutrophils % Seg Neuts % (Manual) Lymphocytes % (Manual) Monocytes % (Manual) Nucleated RBC % Seg Neutrophils # Seg Neutrophils # Man Lymphocytes # (Manual) Monocytes # (Manual) POC ABG pH POC ABG pCO2 POC ABG pO2 Sodium Potassium Chloride 89.8 L Carbon Dioxide BUN 138 H Creatinine 7.5 H Glucose 132 H POC Glucose 64 L 45 L Calcium Phosphorus Magnesium Direct Bilirubin ALT Alkaline Phosphatase CK-MB (CK-2) CK-MB (CK-2) Rel Index Troponin T C-Reactive Protein Total Protein Albumin Triglycerides LDL Cholesterol Direct HDL Cholesterol Lipase Crossmatch 09/08/19 09/08/19 09/09/19 18:42 22:05 01:12 WBC RBC Hgb Hct MCH RDW Lymph % (Auto) Upson % (Auto) Upson # Seg Neutrophils % Seg Neuts % (Manual) Lymphocytes % (Manual) Monocytes % (Manual) Nucleated RBC % Seg Neutrophils # Seg Neutrophils # Man Lymphocytes # (Manual) Monocytes # (Manual) POC ABG pH POC ABG pCO2 POC ABG pO2 Sodium Potassium Chloride Carbon Dioxide BUN Creatinine Glucose POC Glucose 167 H 65 L 121 H Calcium Phosphorus Magnesium Direct Bilirubin ALT Alkaline Phosphatase CK-MB (CK-2) CK-MB (CK-2) Rel Index Troponin T C-Reactive Protein Total Protein Albumin Triglycerides LDL Cholesterol Direct HDL Cholesterol Lipase Crossmatch 1109/09/19 09/09/19 06:33 08:49 09:50 WBC RBC Hgb Hct MCH RDW Lymph % (Auto) Upson % (Auto) [place]pson # Seg Neutrophils % Seg Neuts % (Manual) Lymphocytes % (Manual) Monocytes % (Manual) Nucleated RBC % Seg Neutrophils # Seg Neutrophils # Man Lymphocytes # (Manual) Monocytes # (Manual) POC ABG pH POC ABG pCO2 POC ABG pO2 Sodium Potassium Chloride 92.3 L Carbon Dioxide BUN 92 H Creatinine 5.5 H Glucose 170 H POC Glucose 248 H 200 H Calcium Phosphorus Magnesium Direct Bilirubin ALT Alkaline Phosphatase CK-MB (CK-2) CK-MB (CK-2) Rel Index Troponin T C-Reactive Protein Total Protein Albumin Triglycerides LDL Cholesterol Direct HDL Cholesterol Lipase Crossmatch 09/09/19 09/09/19 09/10/19 12:03 15:23 00:59 WBC RBC Hgb Hct MCH RDW Lymph % (Auto) Upson % (Auto) [place]pson # Seg Neutrophils % Seg Neuts % (Manual) Lymphocytes % (Manual) Monocytes % (Manual) Nucleated RBC % Seg Neutrophils # Seg Neutrophils # Man Lymphocytes # (Manual) Monocytes # (Manual) POC ABG pH POC ABG pCO2 POC ABG pO2 Sodium Potassium Chloride Carbon Dioxide BUN Creatinine Glucose POC Glucose 148 H 110 H 189 H Calcium Phosphorus Magnesium Direct Bilirubin ALT Alkaline Phosphatase CK-MB (CK-2) CK-MB (CK-2) Rel Index Troponin T C-Reactive Protein Total Protein Albumin Triglycerides LDL Cholesterol Direct HDL Cholesterol Lipase Crossmatch 09/10/19 09/10/19 09/10/19 04:40 05:56 12:40 WBC RBC Hgb Hct MCH RDW Lymph % (Auto) [place]pson % (Auto) [place]pson # Seg Neutrophils % Seg Neuts % (Manual) Lymphocytes % (Manual) Monocytes % (Manual) Nucleated RBC % Seg Neutrophils # Seg Neutrophils # Man Lymphocytes # (Manual) Monocytes # (Manual) POC ABG pH POC ABG pCO2 POC ABG pO2 Sodium 136 L Potassium Chloride 90.9 L Carbon Dioxide BUN 105 H Creatinine 6.3 H Glucose 209 H POC Glucose 273 H 136 H Calcium Phosphorus Magnesium Direct Bilirubin ALT Alkaline Phosphatase CK-MB (CK-2) CK-MB (CK-2) Rel Index Troponin T C-Reactive Protein Total Protein Albumin Triglycerides LDL Cholesterol Direct HDL Cholesterol Lipase Crossmatch 09/10/19 16:59 WBC RBC Hgb Hct MCH RDW Lymph % (Auto) [place]pson % (Auto) [place] # Seg Neutrophils % Seg Neuts % (Manual) Lymphocytes % (Manual) Monocytes % (Manual) Nucleated RBC % Seg Neutrophils # Seg Neutrophils # Man Lymphocytes # (Manual) Monocytes # (Manual) POC ABG pH POC ABG pCO2 POC ABG pO2 Sodium Potassium Chloride Carbon Dioxide BUN Creatinine Glucose POC Glucose 126 H Calcium Phosphorus Magnesium Direct Bilirubin ALT Alkaline Phosphatase CK-MB (CK-2) CK-MB (CK-2) Rel Index Troponin T C-Reactive Protein Total Protein Albumin Triglycerides LDL Cholesterol Direct HDL Cholesterol Lipase Crossmatch Chest x-ray: image reviewed (cardiomegaly) Allied health notes reviewed: nursing
== END 2019-09-10 21:51 | disposition short-term general hospital (02) | DRG 871 ==
LOC: ED 17:29 → 4A 22:44 → 3A 08-23 17:37 → 4A 09-01 13:12 → IMCU 09-01 18:37 → 4A 09-08 15:11
PROVIDERS: ADMIT Internal Medicine; ATTEND Internal Medicine
PROC: 5A1D70Z Performance of Urinary Filtration, Intermittent, Less than 6 Hours Per Day (ICD-10-PCS; 2019-08-20)
PROC: 5A1D70Z Performance of Urinary Filtration, Intermittent, Less than 6 Hours Per Day (ICD-10-PCS; 2019-08-24)
PROC: 30233N1 Transfusion of Nonautologous Red Blood Cells into Peripheral Vein, Percutaneous Approach (ICD-10-PCS; 2019-08-27)
PROC: 5A1D70Z Performance of Urinary Filtration, Intermittent, Less than 6 Hours Per Day (ICD-10-PCS; 2019-08-27)
PROC: 5A1D70Z Performance of Urinary Filtration, Intermittent, Less than 6 Hours Per Day (ICD-10-PCS; 2019-08-30)
PROC: 5A1D70Z Performance of Urinary Filtration, Intermittent, Less than 6 Hours Per Day (ICD-10-PCS; 2019-09-02)
PROC: 4A033R1 Measurement of Arterial Saturation, Peripheral, Percutaneous Approach (ICD-10-PCS; principal; 2019-09-04)
PROC: 5A1D70Z Performance of Urinary Filtration, Intermittent, Less than 6 Hours Per Day (ICD-10-PCS; 2019-09-05)
PROC: 5A1D70Z Performance of Urinary Filtration, Intermittent, Less than 6 Hours Per Day (ICD-10-PCS; 2019-09-08)
DX: A41.9 Sepsis, unspecified organism (principal); K85.91 Acute pancreatitis with uninfected necrosis, unspecified; E11.00 Type 2 diabetes mellitus with hyperosmolarity without nonketotic hyperglycemic-hyperosmolar coma (NKHHC); I21.A1 Myocardial infarction type 2; N18.6 End stage renal disease; E43 Unspecified severe protein-calorie malnutrition; J96.01 Acute respiratory failure with hypoxia; G92 Toxic encephalopathy; E87.2 Acidosis; I12.0 Hypertensive chronic kidney disease with stage 5 chronic kidney disease or end stage renal disease; K86.3 Pseudocyst of pancreas; N76.4 Abscess of vulva; E87.6 Hypokalemia; E11.65 Type 2 diabetes mellitus with hyperglycemia; E11.22 Type 2 diabetes mellitus with diabetic chronic kidney disease; D72.829 Elevated white blood cell count, unspecified; D63.8 Anemia in other chronic diseases classified elsewhere; M32.9 Systemic lupus erythematosus, unspecified; G40.909 Epilepsy, unspecified, not intractable, without status epilepticus; E88.09 Other disorders of plasma-protein metabolism, not elsewhere classified; F29 Unspecified psychosis not due to a substance or known physiological condition; Z79.899 Other long term (current) drug therapy; Z79.4 Long term (current) use of insulin; Z99.2 Dependence on renal dialysis; Z82.49 Family history of ischemic heart disease and other diseases of the circulatory system; Z83.3 Family history of diabetes mellitus; Z68.20 Body mass index [BMI] 20.0-20.9, adult; Z86.718 Personal history of other venous thrombosis and embolism
CPT/HCPCS: 36415; 36430; 36600; 70544; 70551; 71045; 74176; 80048; 80053; 80061; 80074; 80076; 82550; 82553; 82803; 82947; 82962; 83690; 83735; 84100; 84478; 84484; 85007; 85014; 85018; 85025; 85027; 86140; 86850; 86900; 86901; 86920; 87040; 87116; 93005; 93010; 93306; 94640; 94760; 96374; G0378; C9113; J0360; J0885; J1170; J1200; J1630; J1815; J1953; J2060; J2185; J2250; J2270; J2405; J2543; J2765; J2916; J2920; J3010; J3475; J3480; J7030; J7042; J7512; J7517; P9016